=== PATIENT | female | born 1945 | race Hispanic/Latino ===

== ENCOUNTER 2019-03-28 13:50 | Observation (INO) | payer OTHER ==
--- OUTSIDE RECORDS SUMMARY | 2019-03-28 13:52 | XMS REPORT ---
:1945 [facility] [address] [place] [address] [place] [id number] Care Team Providers Name Role Phone Unavailable Unavailable Unavailable Problems This patient has no known problems. Allergies, Adverse Reactions, Alerts This patient has no known allergies or adverse reactions. Medications This patient has no known medications. Encounters Start End Encounter Admission Attending Care Care Encounter Date/Time Date/Time Type Type Clinicians Facility Department ID 2019-03-21 Outpatient [facility] [id number] 14:01:16 2018-10-16 Outpatient [facility] [id number] 15:44:11
--- OUTSIDE RECORDS SUMMARY | 2019-03-28 13:52 | XMS REPORT ---
:1945 Author Organization e[employer] Care Team Providers Name Role Phone Gaudencio Vanegas Provider Role Unavailable Allergies, Adverse Reactions, Alerts Substance Reaction Event Type Vicodin Info Not Available Drug Allergy contrast dye Info Not Available Non Drug Allergy Problems Problem Type Condition Code Onset Dates Condition Status Problem Impingement syndrome of right M75.41 Active shoulder Problem Impingement syndrome of left M75.42 Active shoulder Problem Unilateral primary osteoarthritis, M17.12 Active left knee Problem Left sided sciatica M54.32 Active Problem Pain, joint, knee, left M25.562 Active Problem Pain, joint, shoulder, left M25.512 Active Problem Pain, joint, shoulder, right M25.511 Active Problem Right sided sciatica M54.31 Active Problem 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 Assessment Impingement syndrome of right M75.41 Active shoulder Assessment Impingement syndrome of left M75.42 Active shoulder Assessment Pain, joint, shoulder, left M25.512 Active Assessment Pain in joint of left wrist M25.532 Active Assessment Pain, joint, shoulder, right M25.511 Active Medications Medication Code Code Instructions Start End Status Dosage System Date Date Aspirin 81 [facility] 98663354636 81 MG Orally Active 1 tablet Once a day Omeprazole [facility] 19154582328 40 MG Orally Jan 30, Active 1 capsule Once a day 2017 Amlodipine-Quan [facility] 21986167589 5-40 MG Orally Jan 30, Active 1 tablet rvastatin Once a day 2017 Results No Known Results Summary Purpose eClinicalWorks Submission
[2019-03-28 14:43] LABS: Absolute Lymphocytes (CBC) 1.5 K/uL (0.7-4.9); Basophils % 0.3 % (0-1.3); Hematocrit 37.9 % (36.0-45.0); Lymphocytes % 17.7 % (15.3-44.8); MPV 9.3 fL (7.6-11.3); RBC Red Blood Cell Count 4.15 M/uL (3.86-4.86)
[2019-03-28 14:49] LABS: Protime INR 1.12
[2019-03-28 15:00] LABS: ALT/SGPT 20 U/L (12-78); AST/SGOT 12 U/L (15-37); Albumin 3.9 g/dL (3.4-5.0); Alkaline Phosphatase 76 U/L (45-117); BUN Blood Urea Nitrogen 27 mg/dL (7-18); Bicarbonate 23 mmol/L (21-32); Bilirubin Direct 0.1 mg/dL (0-0.2); Bilirubin Total 0.4 mg/dL (0.2-1.0); Glucose Level 139 mg/dL (74-106); Magnesium 2.1 mg/dL (1.8-2.4); NT PRO-BNP 96 pg/mL (<450); Potassium 3.9 mmol/L (3.5-5.1); Protein, Total 7.6 g/dL (6.4-8.2); Sodium Level 143 mmol/L (136-145); Troponin (Emerg Dept Use Only) < 0.02 ng/mL (0.0-0.045)
--- NOTE | 2019-03-28 15:14 | RAD REPORT ---
EXAM DESCRIPTION: Mass[place] Single View03/28/2019 2:57 pm CLINICAL HISTORY: Chest pain COMPARISON: 2017 FINDINGS: The lungs appear clear of acute infiltrate. The heart is mildly enlarged. Pacemaker leads are in place. IMPRESSION: No acute abnormalities displayed
--- NOTE | 2019-03-28 15:39 | ER ---
Nurse's Notes [facility] Name: Ekta Allison Age: 73 yrs Sex: Female : 1945 Arrival Date: 03/28/2019 Time: 13:51 Bed 23 Private MD: Madison Campoverde Diagnosis: Chest pain, unspecified Presentation: 03/28 13:54 Presenting complaint: Patient states: i started feeling real bad about 45 minutes ago, tw2 we were in [employer] fishing, i felt like i couldn't breath and i started feeling dizzy, it was a pressure in my chest. Transition of care: patient was not received from another setting of care. Onset of symptoms was March 28, 2019. Risk Assessment: Do you want to hurt yourself or someone else? Patient reports no desire to harm self or others. Initial Sepsis Screen: Does the patient meet any 2 criteria? No. Patient's initial sepsis screen is negative. Does the patient have a suspected source of infection? No. Patient's initial sepsis screen is negative. Care prior to arrival: None. 13:54 Method Of Arrival: Wheelchair tw2 13:54 Acuity: VINEET 3 tw2 Triage Assessment: 13:55 General: Appears in no apparent distress. Behavior is anxious. Pain: Complains of pain tw2 in chest. Cardiovascular: Reports chest pain, shortness of breath. Historical: - Allergies: 13:57 Iodinated Contrast Media - IV Dye; tw2 13:57 Vicodin; tw2 - Home Meds: 13:57 aspirin 81 mg Oral chew 1 tab once daily [Active]; amlodipine 5 mg tab 1 tab once daily tw2 [Active]; valsartan 160 mg oral tab 1 tab once daily [Active]; pantoprazole 40 mg oral TbEC 1 tab once daily [Active]; clonidine HCl 0.1 mg Oral tab 1 tab prn, when systolic over 160 [Active]; - PMHx: 13:57 Hypertension; tw2 - PSHx: 13:57 Pacemaker; tw2 - Immunization history:: Adult Immunizations. - Social history:: Smoking status: . - Ebola Screening: : Patient denies exposure to infectious person. Screenin:10 Abuse screen: Denies threats or abuse. Denies injuries from another. Nutritional wh screening: No deficits noted. Tuberculosis screening: No symptoms or risk factors identified. Fall Risk None identified. Assessment: 14:10 General: Appears in no apparent distress. Behavior is cooperative, appropriate for age, anxious. Pain: Complains of pain in chest Pain does not radiate. Pain currently is 4 out of 10 on a pain scale. Quality of pain is described as pressure, Pain began 1 hour ago. Neuro: Level of Consciousness is awake, alert, obeys commands, Oriented to person, place, time, situation, Appropriate for age. Cardiovascular: Reports chest pain, Heart tones S1 S2 Rhythm is Respiratory: Airway is patent Respiratory effort is even, unlabored, Respiratory pattern is regular, symmetrical, Breath sounds are clear bilaterally. GI: Abdomen is flat, non-distended. : No signs and/or symptoms were reported regarding the genitourinary system. EENT: No signs and/or symptoms were reported regarding the EENT system. Derm: Skin is intact, is healthy with good turgor, Skin is pink, warm \T\ dry. normal. Musculoskeletal: Circulation, motion, and sensation intact. 15:25 Reassessment: Patient appears in no apparent distress at this time. No changes from previously documented assessment. Patient and/or family updated on plan of care and expected duration. Pain level reassessed. Patient is alert, oriented x 3, equal unlabored respirations, skin warm/dry/pink. Vital Signs: 13:55 BP 141 / 59; Pulse 64; Resp 19; Temp 97.6(O); Pulse Ox 100% on R/A; Weight 70.31 kg; tw2 Pain 8/10; 15:31 BP 116 / 80; Pulse 61; Resp 20; Pulse Ox 98% on R/A; ED Course: 13:51 Patient arrived in ED. ag5 13:51 Madison Campoverde is Private Physician. ag5 13:55 Triage completed. tw2 13:55 Arm band placed on. EKG completed in triage. Results shown to MD. tw2 14:00 Calista Tipton is Primary Nurse. wh 14:09 EKG done, by network control technician. reviewed by Keyur Pardo MD. sm3 14:10 Patient has correct armband on for positive identification. Placed in gown. Bed in low wh position. Call light in reach. Side rails up X 1. body artist on. Pulse ox on. NIBP on. 14:10 Patient maintains SpO2 saturation greater than 95% on room air. 14:15 Inserted saline lock: 22 gauge in right antecubital area, using aseptic technique. Blood collected. BY Rimma Bennett Charge Nurse. 14:21 Geovanna Barker FNP-C [facility]. snw 14:21 Keyur Pardo MD is Attending Physician. snw 14:57 XRAY Chest (1 view) In Process Unspecified. EDMS 15:38 Jonelle Hutton MD is Hospitalizing Provider. snw 16:34 No provider procedures requiring assistance completed. Patient admitted, IV remains in place. Administered Medications: No medications were administered Outcome: 15:39 Decision to Hospitalize by Provider. snw 16:35 Admitted to Med/surg accompanied by tech, family with patient, via wheelchair, room wh 210, with chart, Report called to Janessa Kennedy RN 16:35 Condition: stable 16:35 Instructed on the need for admit. 16:36 Patient left the ED. Signatures: Dispatcher [employer] EDWI Geovanna Barker FNP-C MANAGER ROOFING-Csnw Deidre Jones, RN RN tw2 [facility] Kiersten Cortes 3 Shawnee Perez 5 Corrections: (The following items were deleted from the chart) 15:29 14:10 Cardiovascular: Reports chest pain, Heart tones S1 S2 Rhythm is regular [facility] 15:31 14:10 Cardiovascular: Reports chest pain, Heart tones S1 S2 Rhythm is [facility]
--- NOTE | 2019-03-28 15:40 | EDPHYS ---
Physician Documentation [facility] Name: Ekta Allison Age: 73 yrs Sex: Female : 1945 Arrival Date: 03/28/2019 Time: 13:51 Bed 23 Private MD: Madison Campoverde ED Physician Keyur Pardo HPI: 03/28 15:35 This 73 yrs old Female presents to ER via Wheelchair with complaints of Chest snw Pain, Breathing Difficulty. 15:35 Onset: The symptoms/episode began/occurred suddenly, just prior to arrival. Associated snw signs and symptoms: Pertinent positives: chest pain, light-headed, palpitations, nausea. The patient has not experienced similar symptoms in the past, but family has similar symptoms, spouse. The patient has been recently seen by a physician: Dr. Rivka Arteaga. Historical: - Allergies: 13:57 Iodinated Contrast Media - IV Dye; tw2 13:57 Vicodin; tw2 - Home Meds: 13:57 aspirin 81 mg Oral chew 1 tab once daily [Active]; amlodipine 5 mg tab 1 tab once daily tw2 [Active]; valsartan 160 mg oral tab 1 tab once daily [Active]; pantoprazole 40 mg oral TbEC 1 tab once daily [Active]; clonidine HCl 0.1 mg Oral tab 1 tab prn, when systolic over 160 [Active]; - PMHx: 13:57 Hypertension; tw2 - PSHx: 13:57 Pacemaker; tw2 - Immunization history:: Adult Immunizations. - Social history:: Smoking status: . - Ebola Screening: : Patient denies exposure to infectious person. ROS: 15:30 Eyes: Negative for injury, pain, redness, and discharge, ENT: Negative for injury, snw pain, and discharge, Neck: Negative for injury, pain, and swelling. 15:30 Back: Negative for injury and pain, : Negative for injury, bleeding, discharge, and swelling, + uti being tx with Cipro currently MS/Extremity: Negative for injury and deformity, Skin: Negative for injury, rash, and discoloration, Neuro: Negative for headache, weakness, numbness, tingling, and seizure. 15:30 Constitutional: Positive for lightheaded, body felt weak. 15:30 Cardiovascular: Positive for chest pain, palpitations. 15:30 Respiratory: Positive for shortness of breath. 15:30 Abdomen/GI: Positive for nausea. Exam: 15:35 Constitutional: This is a well developed, well nourished patient who is awake, alert, snw and in no acute distress. Head/Face: Normocephalic, atraumatic. Eyes: Pupils equal round and reactive to light, extra-ocular motions intact. Lids and lashes normal. Conjunctiva and sclera are non-icteric and not injected. Cornea within normal limits. Periorbital areas with no swelling, redness, or edema. ENT: Nares patent. No nasal discharge, no septal abnormalities noted. Tympanic membranes are normal and external auditory canals are clear. Oropharynx with no redness, swelling, or masses, exudates, or evidence of obstruction, uvula midline. Mucous membranes moist. Neck: Trachea midline, no thyromegaly or masses palpated, and no cervical lymphadenopathy. Supple, full range of motion without nuchal rigidity, or vertebral point tenderness. No Meningismus. Chest/axilla: Normal chest wall appearance and motion. Nontender with no deformity. No lesions are appreciated. Cardiovascular: Regular rate and rhythm with a normal S1 and S2. No gallops, murmurs, or rubs. Normal PMI, no JVD. No pulse deficits. Respiratory: Lungs have equal breath sounds bilaterally, clear to auscultation and percussion. No rales, rhonchi or wheezes noted. No increased work of breathing, no retractions or nasal flaring. Back: No spinal tenderness. No costovertebral tenderness. Full range of motion. Skin: Warm, dry with normal turgor. Normal color with no rashes, no lesions, and no evidence of cellulitis. MS/ Extremity: Pulses equal, no cyanosis. Neurovascular intact. Full, normal range of motion. Neuro: Awake and alert, GCS 15, oriented to person, place, time, and situation. Cranial nerves II-XII grossly intact. Motor strength 5/5 in all extremities. Sensory grossly intact. Cerebellar exam normal. Normal gait. Psych: Awake, alert, with orientation to person, place and time. Behavior, mood, and affect are within normal limits. 15:35 Abdomen/GI: Inspection: abdomen appears normal, Bowel sounds: normal, Palpation: mild abdominal tenderness, moderate abdominal tenderness, in the epigastric area and left upper quadrant. Vital Signs: 13:55 BP 141 / 59; Pulse 64; Resp 19; Temp 97.6(O); Pulse Ox 100% on R/A; Weight 70.31 kg; tw2 Pain 8/10; 15:31 BP 116 / 80; Pulse 61; Resp 20; Pulse Ox 98% on R/A; wh MDM: 14:42 Patient medically screened. snw 15:29 Data reviewed: vital signs, nurses notes. Data interpreted: Pulse oximetry: on room air snw is 100 %. Interpretation: normal. Counseling: I had a detailed discussion with the patient and/or guardian regarding: the historical points, exam findings, and any diagnostic results supporting the discharge/admit diagnosis, the presence of at least one elevated blood pressure reading (>120/80) during this emergency department visit, lab results, radiology results, the need for further work-up and treatment in the hospital. Physician consultation: Jonelle Hutton MD was called at 15:29, was contacted at 15:29, regarding admission, to the telemetry unit. 15:38 HEART Score: History: Highly Suspicious (2), ECG: Non specific repolarization snw disturbance / LBTB / PM (1), Age: > or = 65 years (2), Risk Factors: 1 or 2 risk factors (1), Troponin: < or = 1 x Normal Limit (0), Total Score = 6. The patient was not given aspirin in the Emergency Department. Patient reports taking aspirin within the past 24 hours. 03/28 14: Order name: Basic Metabolic Panel; Complete Time: 15:05 03/28 14:01 Order name: CBC with Diff; Complete Time: 14:58 03/28 14:01 Order name: LFT's; Complete Time: 15: 03/28 14:01 Order name: Magnesium; Complete Time: 15:05 03/28 14:01 Order name: NT PRO-BNP; Complete Time: 15:05 03/28 14:01 Order name: PT-INR; Complete Time: 14:58 03/28 14:01 Order name: Troponin (emerg Dept Use Only); Complete Time: 15:05 03/28 14:01 Order name: XRAY Chest (1 view); Complete Time: 15:17 03/28 14:01 Order name: EKG; Complete Time: 14:02 03/28 14:01 Order name: Cardiac monitoring; Complete Time: 14: 03/28 14:01 Order name: EKG - Nurse/Tech; Complete Time: 14: 03/28 14:01 Order name: IV Saline Lock; Complete Time: 14: 03/28 14:01 Order name: Labs collected and sent; Complete Time: 14: 03/28 15:34 Order name: [facility] 03/28 14:01 Order name: O2 Per Protocol; Complete Time: 14: 03/28 14:01 Order name: O2 Sat Monitoring; Complete Time: 14:21 Administered Medications: No medications were administered Disposition: 03/28/19 15:39 Hospitalization ordered by Jonelle Hutton for Observation. Preliminary diagnosis is Chest pain, unspecified. - Bed requested for Telemetry/MedSurg (observation). - Status is Observation. - Condition is Stable. - Problem is new. - Symptoms are unchanged. UTI on Admission? Yes Addendum: 04/01/2019 06:38 Co-signature as Attending Physician, Keyur Pardo MD I agree with the assessment and k dr plan of care. Signatures: Dispatcher [employer] [facility] Keyur Pardo MD MD [facility] [address] Geovanna Barker, FREIGHT TRAFFIC CONSULTANT-C FREIGHT TRAFFIC CONSULTANT-Csnw Deidre Jones RN RN tw2 Calista Tipton Mabel Santana Corrections: (The following items were deleted from the chart) 03/28 15:58 15:39 Hospitalization Ordered by Jonelle Hutton MD for Observation. Preliminary eb diagnosis is Chest pain, unspecified. Bed requested for Telemetry/MedSurg (observation). Status is Observation. Condition is Stable. Problem is new. Symptoms are unchanged. UTI on Admission? Yes. snw 16:36 15:58 03/28/2019 15:39 Hospitalization Ordered by Jonelle Hutton MD for Observation. Preliminary diagnosis is Chest pain, unspecified. Bed requested for Telemetry/MedSurg (observation). Status is Observation. Condition is Stable. Problem is new. Symptoms are unchanged. UTI on Admission? Yes. eb
[2019-03-28] MEDS ORDERED: IPRATROPIUM BROM 0.5MG/2.5ML NEB PRN (16:42)
[2019-03-28] MEDS ORDERED: ALBUTEROL 2.5 MG/3 ML NEB SOL NEB PRN (16:42)
[2019-03-28 16:50] VITALS: BMI 25.3
--- NOTE | 2019-03-28 16:51 | EKG ---
Test Date: 2019-03-28 Test Time: 13:57:13 Small Stock Facer: [employer]BI[employer]oy MEASUREMENT RESULTS: Intervals: Rate: 65 AL: 104 QRSD: 84 QT: 430 QTc: 447 [place]: P: 47 AL: 104 QRS: -25 T: 65 INTERPRETIVE STATEMENTS: Sinus rhythm with short AL Nonspecific ST and T wave abnormality Abnormal ECG Compared to ECG 04/10/2017 10:46:05 Short AL interval now present ST (T wave) deviation now present Myocardial infarct finding no longer present Electronically Signed On 03-28-19 16:50:55 CREDIT REVIEW OFFICER by Darnell Reardon
[2019-03-28 17:13] VITALS: O2SAT 98
--- NOTE | 2019-03-28 17:27 | P.HP ---
Certification for Inpatient Patient admitted to: Observation With expected LOS: <2 Midnights Patient will require the following post-hospital care: None Practitioner: I am a practitioner with admitting privileges, knowledge of patient current condition, hospital course, and medical plan of care. Services: Services provided to patient in accordance with Admission requirements found in Title 42 Section 412.3 of the Code of Federal Regulations Patient History Date of Service: 03/28/19 [facility] Reason for admission: Epigastric pain History of Present Illness: This is a 73-year-old female with significant past medical history of colon cancer along with extensive gastric surgery who presented to the ED complaining of having epigastric pain. Patient stated that this morning she just woke up and was not feeling herself felt a lot of pressure in her whole body along with epigastric pain and the she decided to come to the ER. Patient stated that she has extensive history of gastric surgery in the past where her stomach was attached to her pancreas kidney and liver and had to be the attached. Patient had EGD scheduled today at [facility] with GI doctor which was canceled to evaluate for some epigastric pain as well. Patient denies having any nausea vomiting diarrhea constipation shortness of breath or any other associated symptoms. States that her pain has been going on and off for a while but has been getting progressively worse and the she decided to come to the ER today. Allergies acetaminophen [From Vicodin] Allergy (Unverified 04/10/17 14:07) Unknown hydrocodone [From Vicodin] Allergy (Unverified 04/10/17 14:07) Unknown Iodinated Contrast- Oral a Allergy (Uncoded 04/10/17 14:07) Unknown Home Medications: Amlodipine/Valsartan [Amlodipine-Valsartan 5-160 mg] 1 tab PO DAILY 03/28/19 Aspirin [Aspirin EC 81 MG] 81 mg PO DAILY 03/28/19 Ciprofloxacin HCl [Cipro 500 MG Tablet] 500 mg PO BID 03/28/19 Clonidine HCl [Catapres] 0.1 mg PO DAILYPRN 03/28/19 Levothyroxine Sodium 25 mcg PO DAILY 03/28/19 Pantoprazole [Protonix Tab*] 40 mg PO DAILY 03/28/19 - Past Medical/Surgical History Has patient received pneumonia vaccine in the past: Yes Diabetic: No -: Hypertension -: Pacemaker (2010) -: Cardiac Dysrhythmia -: Cataract -: Hypothyroidism -: GERD -: Shoulder Tendinitis(gets shots) -: Explore Lap; organs -: Hernia Repair -: Esophageal varices - Family History Father Notes: - Lung Cancer Mother Notes: - Stroke - Social History Smoking Status: Never smoker Alcohol use: No CD- Drugs: No Caffeine use: Yes Place of Residence: Home Review of Systems 10-point ROS is otherwise unremarkable Physical Examination - Vital Signs Temperature: 97.6 F Blood Pressure: 116/80 Pulse: 61 Respirations: 20 - Physical Exam General: Alert, In no apparent distress HEENT: Atraumatic, PERRLA, Mucous membr. moist/pink, EOMI, Sclerae nonicteric Neck: Supple, 2+ carotid pulse no bruit, No LAD, Without JVD or thyroid abnormality Respiratory: Clear to auscultation bilaterally, Normal air movement Cardiovascular: Regular rate/rhythm, Normal S1 S2 Gastrointestinal: Normal bowel sounds, No tenderness Musculoskeletal: No tenderness Integumentary: No rashes Neurological: Normal gait, Normal speech, Normal strength at 5/5 x4 extr, Normal tone, Normal affect Lymphatics: No axilla or inguinal lymphadenopathy - Studies Laboratory Data (last 24 hrs) 03/28/19 14:20: PT 13.2 H, INR 1.12 03/28/19 14:20: WBC 8.5, Hgb 13.2, Hct 37.9, Plt Count 210 03/28/19 14:20: Sodium 143, Potassium 3.9, BUN 27 H, Creatinine 1.49 H, Glucose 139 H, Magnesium 2.1, Total Bilirubin 0.4, AST 12 L, ALT 20, Alkaline Phosphatase 76 Assessment and Plan - Problems (Diagnosis) (1) Epigastric pain Current Visit: Yes Status: Acute Plan: Patient with epigastric pain at this time with started suddenly this morning however has been intermittent and has been getting progressively worse -most likely secondary to adhesions versus reflux -however will rule out ACS at this time and get a CT chest, abdomen and pelvis to rule out any other infectious etiology -if CT abdomen chest and pelvis is negative most likely patient will need EGD done as outpatient with her GI doctor to further evaluate for her epigastric pain -will repeat troponin x2 here in the hospital. EKG within normal limits. -will continue with IV fluids here in the hospital monitor patient closely -Protonix IV at this time as well. (2) Colon cancer Current Visit: Yes Status: Acute Plan: Status post resection 10 years ago currently stable per patient Qualifiers: Colon location: unspecified part of colon Qualified Code(s): C18.9 - Malignant neoplasm of colon, unspecified (3) Hypertension Current Visit: Yes Status: Chronic Plan: Will restart on home medication Qualifiers: Hypertension type: essential hypertension Qualified Code(s): I10 - Essential (primary) hypertension (4) History of permanent cardiac pacemaker placement Current Visit: Yes Status: Chronic Plan: Stable Discharge Plan: Home Plan to discharge in: 48 Hours - Advance Directives Does patient have a Living Will: No Does patient have a Durable POA for Healthcare: No - Code Status/Comfort Care Code Status Assessed: Yes Critical Care: No
[2019-03-28] MEDS ORDERED: cloNIDine HCL 0.1 MG TAB PO SCH (18:00)
[2019-03-28] MEDS ORDERED: NA CHLORIDE 0.9% 1,000 ML IV SCH (18:00)
--- NOTE | 2019-03-28 20:27 | RAD REPORT ---
EXAM DESCRIPTION: CT - Chest Abd Pelvis Wo Con - 03/28/2019 6:05 pm CLINICAL HISTORY: Chest and abdominal pain. Colon cancer COMPARISON: none TECHNIQUE: Computed axial tomography of the chest, abdomen and pelvis was obtained. Oral contrast wa s given. IV contrast was not requested. All CT scans are performed using dose optimization technique as appropriate and may include automated exposure control or mA/KV adjustment according to patient size. FINDINGS: The evaluation of mediastinum, tatiana, vessels and solid organs is limited secondary to the lack of IV contrast administration No mediastinal or hilar lymphadenopathy is seen. A pleural effusion is not present. A pericardial effusion is not seen. Calcified granuloma right lung. A few areas of scarring or subsegmental atelectasis are present withi n left lung base. Splenic granulomata. Cholecystectomy The liver, adrenals and kidneys appear grossly normal Coarse calcification is present within pancreas which may be related to prior pancreatitis Small hiatal hernia. 3 centimeter soft tissue structure distal stomach/proximal duodenum There is no evidence of diverticulitis. Hysterectomy IMPRESSION: 3 centimeter soft tissue structure posterior stomach/ proximal duodenum. This may be a p seudo mass secondary to prior surgery, incomplete distention or a true mass. It is recommended that t he patient have a CT scan with oral contrast with opacification of the stomach for further evaluation
[2019-03-28 20:54] LABS: Urine Appearance CLEAR; Urine Bilirubin NEGATIVE (NEG); Urine Blood NEGATIVE (NEG); Urine Color YELLOW; Urine Glucose NEGATIVE (NEG); Urine Microscopic Reflex ORDER UMIC; Urine Protein NEGATIVE (NEG); Urine Urobilinogen 0.2 mg/dL (0.2-1.0)
[2019-03-28 21:01] LABS: Urine Bacteria <20 /HPF (<20); Urine Culture Reflex Order REFLEXED; Urine Mucus 2+ /HPF (NONE SEEN); Urine RBC <5 /HPF (NONE SEEN)
[2019-03-29] MEDS: ACETAMINOPHEN 325 MG TABLET PO PRN ×2 (02:05→07:56)
[2019-03-29] MEDS ORDERED: LEVOTHYROXINE SOD 0.025 MG TAB PO SCH (06:30)
[2019-03-29 06:32] LABS: Absolute Lymphocytes (CBC) 1.9 K/uL (0.7-4.9); Basophils % 0.3 % (0-1.3); Hematocrit 35.3 % (36.0-45.0); Lymphocytes % 34.6 % (15.3-44.8); MPV 9.4 fL (7.6-11.3); RBC Red Blood Cell Count 3.88 M/uL (3.86-4.86)
[2019-03-29 06:41] LABS: Albumin 3.3 g/dL (3.4-5.0); Bilirubin Total 0.4 mg/dL (0.2-1.0); Potassium 3.8 mmol/L (3.5-5.1); Protein, Total 6.6 g/dL (6.4-8.2)
[2019-03-29] MEDS ORDERED: POTASSIUM CL SA 10 MEQ TAB PO ONE (09:00)
[2019-03-29] MEDS ORDERED: ASPIRIN EC 81 MG TAB PO SCH (09:00)
[2019-03-29] MEDS ORDERED: AMLODIPINE 5 MG TAB PO SCH (09:00)
[2019-03-29] MEDS ORDERED: VALSARTAN 160 MG TAB PO SCH (09:00)
[2019-03-29] MEDS ORDERED: ENOXAPARIN 30 MG/0.3 ML SQ SCH (09:00)
[2019-03-29] MEDS ORDERED: PANTOPRAZOLE 40MG TABLET PO SCH (09:00)
[2019-03-29] MEDS ORDERED: VALSARTAN PO SCH (09:00)
[2019-03-29] MEDS ORDERED: ENOXAPARIN 40 MG/0.4 ML SQ SCH (09:00)
[2019-03-29] MEDS ORDERED: AMLODIPINE PO SCH (09:00)
--- NOTE | 2019-03-29 14:09 | P.DS ---
Admission Date: 03/28/19 Discharge Date: 03/30/19 Primary [facility] Disposition: ROUTINE DISCHARGE Discharge Condition: FAIR Reason for Admission: Epigastric pain Brief History of Present Illness: 73-year-old female with significant past medical history of colon cancer along with extensive gastric surgery who presented to the ED complaining of having epigastric pain. Patient stated that this morning she just woke up and was not feeling herself felt a lot of pressure in her whole body along with epigastric pain and the she decided to come to the ER. Patient stated that she has extensive history of gastric surgery in the past where her stomach was attached to her pancreas kidney and liver and had to be the attached. Patient had EGD scheduled today at [facility] with GI doctor which was canceled to evaluate for some epigastric pain as well. Patient denies having any nausea vomiting diarrhea constipation shortness of breath or any other associated symptoms. States that her pain has been going on and off for a while but has been getting progressively worse and the she decided to come to the ER today. Hospital Course: Was admitted was monitor under telemetry. Cardiac enzymes were trended and was within normal limits. Patient with epigastric pain ,most likely secondary to adhesions versus reflux She was also started on PPI and pain control. CT abdomen pelvis was done and findings were discussed with the patient's family. Here she was also start on IV fluids for hydration. She has an appointment with the GI and with surgeon in [facility] . And she wanted to follow up with them for continuity of care. the patient is being discharged home today in a stable condition with advice to follow up with PCP and also with GI and surgery as early as possible Vital Signs/Physical Exam: Temp Pulse Resp BP Pulse Ox 97.5 F 59 18 146/64 H 97 03/29/19 08:00 03/29/19 08:00 03/29/19 08:00 03/29/19 08:00 03/29/19 08:00 General: Alert, In no apparent distress HEENT: Atraumatic, Normocephalic Neck: Supple Respiratory: Clear to auscultation bilaterally Cardiovascular: Regular rate/rhythm Gastrointestinal: Soft and benign, W/out hepatosplenomegaly Neurological: Normal strength at 5/5 x4 extr Laboratory Data at Discharge: WBC 5.5 K/uL (4.3-10.9) D 03/29/19 05:56 Hgb 12.6 g/dL (12.0-15.0) 03/29/19 05:56 Hct 35.3 % (36.0-45.0) L 03/29/19 05:56 Plt Count 194 K/uL (152-406) 03/29/19 05:56 PT 13.2 SECONDS (9.5-12.5) H 03/28/19 14:20 INR 1.12 03/28/19 14:20 Sodium 144 mmol/L (136-145) 03/29/19 05:56 Potassium 3.8 mmol/L (3.5-5.1) 03/29/19 05:56 BUN 22 mg/dL (7-18) H 03/29/19 05:56 Creatinine 0.96 mg/dL (0.55-1.3) 03/29/19 05:56 Glucose 89 mg/dL (74-106) 03/29/19 05:56 Magnesium 2.1 mg/dL (1.8-2.4) 03/28/19 14:20 Total Bilirubin 0.4 mg/dL (0.2-1.0) 03/29/19 05:56 AST 9 U/L (15-37) L 03/29/19 05:56 ALT 16 U/L (12-78) 03/29/19 05:56 Alkaline Phosphatase 65 U/L (45-117) 03/29/19 05:56 Troponin I < 0.02 ng/mL (0.0-0.045) 03/29/19 05:56 Home Medications: Amlodipine/Valsartan [Amlodipine-Valsartan 5-160 mg] 1 tab PO DAILY 03/28/19 Aspirin [Aspirin EC 81 MG] 81 mg PO DAILY 03/28/19 Ciprofloxacin HCl [Cipro 500 MG Tablet] 500 mg PO BID 03/28/19 Clonidine HCl [Catapres] 0.1 mg PO DAILYPRN 03/28/19 Levothyroxine Sodium 25 mcg PO DAILY 03/28/19 Pantoprazole [Protonix Tab*] 40 mg PO DAILY 03/28/19 metroNIDAZOLE [Flagyl] 500 mg PO Q8H #21 tablet 03/29/19 New Medications: metroNIDAZOLE [Flagyl] 500 mg PO Q8H #21 tablet Patient Discharge Instructions: Follow up with PCP , GI, Surgery as early as possible
[2019-03-29 15:12] VITALS: BP 150/67; TEMP 97.7
== END 2019-03-29 13:30 | disposition home or self-care (01) ==
LOC: ER 13:50 → ERHOLD 15:32 → 2ND 16:22
PROVIDERS: ADMIT Family Medicine; ATTEND Family Medicine
DX: R10.13 Epigastric pain (principal); I10 Essential (primary) hypertension; E03.9 Hypothyroidism, unspecified; K21.9 Gastro-esophageal reflux disease without esophagitis; Z85.038 Personal history of other malignant neoplasm of large intestine; Z95.0 Presence of cardiac pacemaker; Z79.82 Long term (current) use of aspirin
CPT/HCPCS: 36415; 71045; 71250; 74176; 80048; 80053; 80076; 81003; 81015; 82553; 83735; 83880; 84484; 85025; 85610; 87086; 87088; 93005; 99285; G0378; J1650; J7030

== ENCOUNTER 2019-05-17 17:26 | Emergency (ER) | payer OTHER ==
--- OUTSIDE RECORDS SUMMARY | 2019-05-17 17:28 | XMS REPORT | Summary of Care ---
:1945 Author Name OLE DANIEL M.D. Address Unavailable Unavailable , Care Team Providers Name Role Phone MARÍA Barillas, [facility] Unavailable Unavailable OBONYANO N.P., JOANNE Unavailable Unavailable JACKSON MCNAIR, GUTIERREZ Unavailable Unavailable Vipul Briseno MD Unavailable Unavailable MARÍA MCNAIR [place], [facility] Unavailable Unavailable Unavailable Unavailable Unavailable Functional Status Name Dates Details Functional status health issues are not documented Status: Name Dates Details Cognitive status health issues are not documented Status: Problems Name Dates Details Dysphagia (787.20, R13.10) Status: Active Left upper quadrant pain (789.02, R10.12) Status: Active Medications Name Dates Details Fish Oil CAPS Refills: 0 Active amLODIPine Besylate 2.5 MG Oral Tablet TAKE 1 TABLET DAILY DIRECTED. Quantity: 90 Refills: 3 Active Pantoprazole Sodium 40 MG Oral Tablet Delayed Release TAKE 1 TABLET DAILY Quantity: 90 Refills: 1 OBONYANO N.P., JOANNE Start : 29-Jan-2018 Active amLODIPine Besylate-Valsartan 5-160 MG Oral Tablet Refills: 0 Active Pantoprazole Sodium 40 MG Oral Tablet Delayed Release Refills: 0 Active cloNIDine HCl - 0.1 MG Oral Tablet Refills: 0 Active Wanda Low Dose 81 MG Oral Tablet Delayed Release Refills: 0 Active Allergies and Adverse Reactions Name Dates Details Contrast Media Ready-Box MISC (Allergy) Status: Active Iodex OINT (Allergy) Status: Active Iodinated Contrast Media (Allergy) Status: Active Vicodin HP TABS (Allergy) Status: Active Vicodin TABS (Allergy) Status: Active Iodine (Allergy) Status: Active Past Medical History Name Dates Details History of Abdominal pain, epigastric (789.06, R10.13) Status: Resolved History of abnormal weight loss (V13.89, Z87.898) Status: Resolved History of cough Status: Resolved History of Dysphagia (787.20, R13.10) Status: Resolved History of dysphagia (V12.79, Z87.19) Status: Resolved History of epigastric pain (V12.79, Z87.19) Status: Resolved History of esophageal reflux (V12.79, Z87.19) Status: Resolved History of essential hypertension (V12.59, Z86.79) Status: Resolved 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, 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 History of gastroesophageal reflux (GERD) (V12.79, Z87.19) Status: Resolved History of heartburn (V12.79, Z87.898) Status: Resolved History of Herniated nucleus pulposus, L4-5 (722.10, M51.26) Status: Resolved History of hiatal hernia (V12.79, Z87.19) Status: Resolved History of nausea (V12.79, Z87.898) Status: Resolved History of odynophagia (V15.89, Z87.898) Status: Resolved History of Regurgitation (R11.10) Status: Resolved History of Sick sinus syndrome (427.81, I49.5) Status: Resolved Procedures Procedure Dates Details History of Pacemaker Placement Completed 12-Aug-2004 History of Laparosc Esophagogastric Fundoplasty For Completed 12-Jan-2010 Paraesoph Hernia Repair W/ Mesh History of Hysterectomy Completed 14-May-1977 History of Cholecystectomy Laparoscopic Completed 14-May-1993 History of Total Abdominal Colectomy Completed 14-May-1981 Immunization Name Dates Details Immunizations not documented Family History Name Dates Details Family history of Lung Cancer (V16.1) Status: Active Social History Name Dates Details - Status: Name Dates Details Never smoker Vital Signs Date Test Result Details [id number] BP Systolic 146 mm[Hg] Status: Comments: Location: RUE; Position: Sitting BP Diastolic 82 mm[Hg] Status: Comments: Location: E; Position: Sitting Height 61 in Status: Weight 134.5 lb Status: Body Mass Index Calculated 25.41 kg/m2 Status: Body Surface Area Calculated 1.6 m2 Status: Temperature 98.2 f Status: Comments: Method: Oral Heart Rate 61 /min Status: Respiration Rate 18 /min Status: O2 SAT 98 % Status: Comments: Source: RA Results Date Description Value Details Results not documented Plan of Care Name Dates Details Planned Observations Planned Goals not documented Interventions Provided Plan1. CT chest, abdomen and pelvis with PO contrast to rule out chest and abdominal mass 2. . I will call her with the results of the CT and will see her again in 1 month for a follow up. 3. I recommended she see a acute pain service for the persistent LUQ pain/rib area. She has a physician she will follow up with. 4. I recommended she take Aleve or Motrin for relief of pain. Instructions Name Dates Details Instructions not documented Encounters Appointment; VIPUL BRISENO M.D. On: 19-Oct-2017 13:30 Encounter Diagnosis: Problem not documented Appointment; ROBERT MCMAHAN M.D. On: 13-Nov-2017 14:00 Encounter Diagnosis: Problem not documented Appointment; VIPUL BRISENO M.D. On: 29-Nov-2017 14:15 Encounter Diagnosis: Problem not documented Appointment; VIPUL BRISENO M.D. On: 31-Dec-2017 9:45 Encounter Diagnosis: Problem not documented Appointment; VIPUL BRISENO M.D. On: 05-Mar-2018 13:15 Encounter Diagnosis: Problem not documented Appointment; VIPUL BRISENO M.D. On: 05-Mar-2018 13:15 Encounter Diagnosis: Problem not documented Appointment; VIPUL BRISENO M.D. On: 05-Mar-2019 10:45 Encounter Diagnosis: Problem not documented Appointment; OLE DANIEL M.D. On: 19-Mar-2019 15:00 Encounter Diagnosis: Problem not documented Appointment; OLE DANIEL M.D. On: 09-Apr-2019 14:00 Encounter Diagnosis: Problem not documented
--- OUTSIDE RECORDS SUMMARY | 2019-05-17 17:28 | XMS REPORT ---
:1945 [facility] Address [address] [place] [address] [place] [id number] Care Team Providers Name Role Phone Unavailable [...]
--- OUTSIDE RECORDS SUMMARY | 2019-05-17 17:28 | XMS REPORT ---
[...] Status Dosage System Date Date Aspirin 81 [facility] [id number] 81 MG Orally Active 1 tablet Once a day Omeprazole [facility] [place] [id number] 40 MG Orally Jan 30, Active 1 capsule Once a day 2017 Amlodipine-Quan [facility] [place] [id number] 5-40 MG Orally Jan 30, Active 1 tablet rvastatin Once a day 2017 Results No Known Results Summary Purpose eClinicalWorks Submission
[2019-05-17] MEDS ORDERED: DIPHENHYDRAMINE 50 MG/ML VIAL ONE (18:23)
[2019-05-17] MEDS ORDERED: dexAMETHasone 10 MG/ML VIAL ONE (18:23)
[2019-05-17] MEDS ORDERED: METOCLOPRAMIDE 10 MG/2mL INJ ONE (18:23)
[2019-05-17] MEDS ORDERED: NA CHLORIDE 0.9% 100 ML IV ONE (18:24)
[2019-05-17 18:56] LABS: Absolute Lymphocytes (CBC) 1.4 K/uL (0.7-4.9); Basophils % 0.3 % (0-1.3); Hematocrit 38.3 % (36.0-45.0); Lymphocytes % 10.4 % (15.3-44.8); MPV 9.6 fL (7.6-11.3)
[2019-05-17 18:58] LABS: Protime INR 0.96
[2019-05-17 19:13] LABS: ALT/SGPT 22 U/L (12-78); AST/SGOT 12 U/L (15-37); Alkaline Phosphatase 67 U/L (45-117); BUN Blood Urea Nitrogen 36 mg/dL (7-18); Bicarbonate 21 mmol/L (21-32); Bilirubin Direct < 0.1 mg/dL (0-0.2); Bilirubin Total 0.2 mg/dL (0.2-1.0); Glucose Level 126 mg/dL (74-106); Magnesium 2.4 mg/dL (1.8-2.4); NT PRO-BNP 187 pg/mL (<450); Potassium 4.1 mmol/L (3.5-5.1); Protein, Total 7.9 g/dL (6.4-8.2); Sodium Level 145 mmol/L (136-145); Troponin (Emerg Dept Use Only) < 0.02 ng/mL (0.0-0.045)
[2019-05-17] MEDS ORDERED: NA CHLORIDE 0.9% 500 ML ONE (19:30)
--- NOTE | 2019-05-17 19:30 | RAD REPORT ---
EXAM DESCRIPTION: CT - Head Brain Wo Cont - 05/17/2019 6:22 pm CLINICAL HISTORY: Headache COMPARISON: None. TECHNIQUE: Axial 5 mm thick images of the head were obtained without IV contrast. All CT scans are performed using dose optimization technique as appropriate and may include automated exposure control or mA/KV adjustment according to patient size. FINDINGS: No intracranial hemorrhage, mass, edema or shift of mid-line structures. No acute infarcti on changes seen. No significant atrophy. Chronic ischemic changes minimal. Ventricles are normal. Mastoid air cells and visualized portions of the paranasal sinuses are clear. No acute bony findings. IMPRESSION: Negative non-contrast CT head examination for acute finding.
--- NOTE | 2019-05-17 19:41 | ER ---
Nurse's Notes [facility] Name: Ekta Allison Age: 73 yrs Sex: Female : 1945 Arrival Date: 05/17/2019 Time: 17:28 Bed 25 Private MD: Madison Campoverde Diagnosis: Headache;Dehydration Presentation: 05/17 17:45 Presenting complaint: Patient states: Reports DEGROOT started at 1545, pounding, and reports jl7 BP 189/88. Pt took a Clonidine at 1620 , BP was 186/84 at 1645. DEGROOT has resolved, reports mild dizziness and feeling tired. Transition of care: patient was not received from another setting of care. Onset of symptoms was May 17, 2019 at 15:30. Risk Assessment: Do you want to hurt yourself or someone else? Patient reports no desire to harm self or others. Initial Sepsis Screen: Does the patient meet any 2 criteria? No. Patient's initial sepsis screen is negative. Does the patient have a suspected source of infection? No. Patient's initial sepsis screen is negative. Care prior to arrival: Medication(s) given: clonidine 0.1 mg po. 17:45 Method Of Arrival: Ambulatory jl7 17:45 Acuity: VINEET 3 jl7 Triage Assessment: 17:53 General: Appears in no apparent distress. uncomfortable, Behavior is calm, cooperative, jl7 appropriate for age. Pain: Denies pain. Historical: - Allergies: 17:53 Iodinated Contrast Media - IV Dye; jl7 17:53 Vicodin; jl7 - Home Meds: 17:53 amlodipine 5 mg tab 1 tab once daily [Active]; aspirin 81 mg Oral chew 1 tab once daily jl7 [Active]; clonidine HCl 0.1 mg Oral tab 1 tab prn, when systolic over 160 [Active]; pantoprazole 40 mg Oral TbEC 1 tab once daily [Active]; pantoprazole 40 mg oral TbEC 1 tab once daily [Active]; valsartan 160 mg Oral tab 1 tab once daily [Active]; - PMHx: 17:53 Hypertension; Pacemaker; jl7 - PSHx: 17:53 Pacemaker; jl7 - Immunization history:: Adult Immunizations up to date. - Social history:: Smoking status: Patient/guardian denies using tobacco. - Ebola Screening: : No symptoms or risks identified at this time. Screenin:06 Abuse screen: Denies threats or abuse. Denies injuries from another. Nutritional mg2 screening: No deficits noted. Tuberculosis screening: No symptoms or risk factors identified. Fall Risk IV access (20 points). Assessment: 19:00 General: Appears in no apparent distress. comfortable, Behavior is calm, cooperative. mg2 Pain: Complains of pain in head. Neuro: Level of Consciousness is awake, alert, obeys commands, Oriented to person, place, time, situation, Reports headache. Cardiovascular: Capillary refill < 3 seconds Patient's skin is warm and dry. Respiratory: Airway is patent Respiratory effort is even, unlabored, Respiratory pattern is regular, symmetrical. GI: No signs and/or symptoms were reported involving the gastrointestinal system. : No signs and/or symptoms were reported regarding the genitourinary system. EENT: No signs and/or symptoms were reported regarding the EENT system. Derm: Skin is intact, is healthy with good turgor, Skin is pink, warm \T\ dry. normal. Musculoskeletal: Circulation, motion, and sensation intact. Capillary refill < 3 seconds. 19:59 Reassessment: patient refused to complete iv fluid. provider informed. mg2 Vital Signs: 17:53 BP 144 / 59; Pulse 71; Resp 17 S; Temp 98.6(O); Pulse Ox 99% on R/A; Weight 59.42 kg jl7 (R); Height 5 ft. 1 in. (154.94 cm) (R); Pain 7/10; 18:59 BP 139 / 66; Pulse 68; Resp 18 S; Pulse Ox 100% on R/A; mg2 19:41 BP 115 / 50; Pulse 63; Resp 17; Pulse Ox 100% on R/A; mg2 17:53 Body Mass Index 24.75 (59.42 kg, 154.94 cm) jl7 ED Course: 17:28 Patient arrived in ED. mr 17:29 Madison Campoverde is Private Physician. mr 17:51 Triage completed. jl7 17:53 Arm band placed on right wrist. jl7 17:57 Gino Kaye NP is PHCP. pm1 17:58 Ihsan Milligan MD is Attending Physician. pm1 18:18 Manolo Chang RN is Primary Nurse. mg2 18:23 CT completed. Patient tolerated procedure well. Patient moved back from CT. bq 18:30 CT Head Brain wo Cont In Process Unspecified. EDMS 18:58 XRAY Chest (1 view) In Process Unspecified. EDMS 19:00 Inserted saline lock: 24 gauge in left hand, using aseptic technique. Blood collected. mg2 20:06 No provider procedures requiring assistance completed. mg2 20:07 Patient has correct armband on for positive identification. mg2 20:07 IV discontinued, intact, bleeding controlled, No redness/swelling at site. Pressure mg2 dressing applied. Administered Medications: 18:58 Drug: Reglan 10 mg Route: IVP; Site: left hand; mg2 18:58 Drug: Decadron - Dexamethasone 10 mg Route: IVP; Site: left hand; mg2 18:58 Drug: Benadryl 12.5 mg Route: IVP; Site: left hand; mg2 19:40 Drug: NS 0.9% 500 ml Route: IV; Rate: bolus; Site: left hand; mg2 Outcome: 19:40 Discharge ordered by MD. pm1 20:07 Discharged to home via wheelchair, with family. mg2 20:07 Condition: stable 20:07 Discharge instructions given to patient, family, Instructed on discharge instructions, follow up and referral plans. Demonstrated understanding of instructions, follow-up care. 20:08 Patient left the ED. mg2 Signatures: Dispatcher [employer] LOVE Noe Joanne Rivera Gino Redman, [employer]ATORY COORDINATOR pm1 Tiago Farley RN RN jl7 Manolo Chang RN RN mg2
--- NOTE | 2019-05-17 19:41 | EDPHYS ---
Physician Documentation [facility] Name: Ekta Allison Age: 73 yrs Sex: Female : 1945 Arrival Date: 05/17/2019 Time: 17:28 Bed 25 Private MD: Madison Campoverde ED Physician Ihsan Milligan HPI: 05/17 18:49 This 73 yrs old Female presents to ER via Ambulatory with complaints of High pm1 Blood Pressure, Dizziness. 18:49 The patient has elevated blood pressure and discovered this at home, with a home pm1 device. Onset: The symptoms/episode began/occurred today. Modifying factors: The symptoms are aggravated by elevated blood pressure. Associated signs and symptoms: Pertinent positives: dizziness, headache, Pertinent negatives: chest pain, dyspnea, nausea, vomiting, weakness. Severity of symptoms: in the emergency department the blood pressure is improved, 144 mm Hg. The patient has experienced similar episodes in the past, multiple times, and the symptoms today are exactly the same, elevated blood pressure typically causes a headache and she takes her PRN clonidine and it improves her headache and BP. Typically the headache goes away but it is still present. Historical: - Allergies: 17:53 Iodinated Contrast Media - IV Dye; jl7 17:53 Vicodin; jl7 - Home Meds: 17:53 amlodipine 5 mg tab 1 tab once daily [Active]; aspirin 81 mg Oral chew 1 tab once daily jl7 [Active]; clonidine HCl 0.1 mg Oral tab 1 tab prn, when systolic over 160 [Active]; pantoprazole 40 mg Oral TbEC 1 tab once daily [Active]; pantoprazole 40 mg oral TbEC 1 tab once daily [Active]; valsartan 160 mg Oral tab 1 tab once daily [Active]; - PMHx: 17:53 Hypertension; Pacemaker; jl7 - PSHx: 17:53 Pacemaker; jl7 - Immunization history:: Adult Immunizations up to date. - Social history:: Smoking status: Patient/guardian denies using tobacco. - Ebola Screening: : No symptoms or risks identified at this time. ROS: 18:49 Constitutional: Negative for fever, chills, and weight loss, Eyes: Negative for injury, pm1 pain, redness, and discharge, ENT: Negative for injury, pain, and discharge, Neck: Negative for injury, pain, and swelling, Cardiovascular: Negative for chest pain, palpitations, and edema, Respiratory: Negative for shortness of breath, cough, wheezing, and pleuritic chest pain, Abdomen/GI: Negative for abdominal pain, nausea, vomiting, diarrhea, and constipation, Back: Negative for injury and pain, : Negative for injury, bleeding, discharge, and swelling, MS/Extremity: Negative for injury and deformity, Skin: Negative for injury, rash, and discoloration. 18:49 Neuro: Positive for dizziness, headache, Negative for numbness, tingling, weakness. Exam: 18:49 Constitutional: This is a well developed, well nourished patient who is awake, alert, pm1 and in no acute distress. Eyes: Pupils equal round and reactive to light, extra-ocular motions intact. Lids and lashes normal. Conjunctiva and sclera are non-icteric and not injected. Cornea within normal limits. Periorbital areas with no swelling, redness, or edema. ENT: Nares patent. No nasal discharge, no septal abnormalities noted. Tympanic membranes are normal and external auditory canals are clear. Oropharynx with no redness, swelling, or masses, exudates, or evidence of obstruction, uvula midline. Mucous membranes moist. Neck: Trachea midline, no thyromegaly or masses palpated, and no cervical lymphadenopathy. Supple, full range of motion without nuchal rigidity, or vertebral point tenderness. No Meningismus. Chest/axilla: Normal chest wall appearance and motion. Nontender with no deformity. No lesions are appreciated. Cardiovascular: Regular rate and rhythm with a normal S1 and S2. No gallops, murmurs, or rubs. Normal PMI, no JVD. No pulse deficits. Respiratory: Lungs have equal breath sounds bilaterally, clear to auscultation and percussion. No rales, rhonchi or wheezes noted. No increased work of breathing, no retractions or nasal flaring. Abdomen/GI: Soft, non-tender, with normal bowel sounds. No distension or tympany. No guarding or rebound. No evidence of tenderness throughout. Back: No spinal tenderness. No costovertebral tenderness. Full range of motion. 18:49 Skin: Warm, dry with normal turgor. Normal color with no rashes, no lesions, and no evidence of cellulitis. MS/ Extremity: Pulses equal, no cyanosis. Neurovascular intact. Full, normal range of motion. 18:49 Head/face: Noted is no obvious of injury or deformity except tenderness, of the scalp from forehead to occipital area. 18:49 Neuro: Orientation: is normal, Mentation: is normal, Motor: is normal, moves all fours, Sensation: is normal, no obvious gross deficits. Vital Signs: 17:53 BP 144 / 59; Pulse 71; Resp 17 S; Temp 98.6(O); Pulse Ox 99% on R/A; Weight 59.42 kg jl7 (R); Height 5 ft. 1 in. (154.94 cm) (R); Pain 7/10; 18:59 BP 139 / 66; Pulse 68; Resp 18 S; Pulse Ox 100% on R/A; mg2 19:41 BP 115 / 50; Pulse 63; Resp 17; Pulse Ox 100% on R/A; mg2 17:53 Body Mass Index 24.75 (59.42 kg, 154.94 cm) 7 MDM: 18:01 Patient medically screened. tere 19:22 ED course: Patient's headache resolved and she wants to go home. Reports that she pm1 drinks plenty of fluid and eats well. Informed patient that she is dehydrated according to labs and requested that patient at least get 500 mL of fluid prior to go home even though I would like more fluid. Patient agreed to stay for 500 mL of IV fluid. 19:39 Data reviewed: vital signs. Data interpreted: Pulse oximetry: on room air is 100 %. pm1 Interpretation: normal. Counseling: I had a detailed discussion with the patient and/or guardian regarding: the historical points, exam findings, and any diagnostic results supporting the discharge/admit diagnosis, lab results, radiology results, the need for outpatient follow up, to return to the emergency department if symptoms worsen or persist or if there are any questions or concerns that arise at home. 05/17 18:21 Order name: Basic Metabolic Panel; Complete Time: 19:19 pm1 05/17 18:21 Order name: CBC with Diff; Complete Time: 19:11 pm1 05/17 18:21 Order name: LFT's; Complete Time: 19:19 pm1 05/17 18:21 Order name: Magnesium; Complete Time: 19:19 pm1 05/17 18:21 Order name: NT PRO-BNP; Complete Time: 19:19 pm1 05/17 18:21 Order name: PT-INR; Complete Time: 19:11 pm1 05/17 18:09 Order name: CT Head Brain wo Cont; Complete Time: 19:34 pm05/17 18:21 Order name: Troponin (emerg Dept Use Only); Complete Time: 19:19 pm1 05/17 18:21 Order name: XRAY Chest (1 view) pm05/17 18:21 Order name: EKG; Complete Time: 18:22 pm1 05/17 18:09 Order name: IV Saline Lock; Complete Time: 18:59 pm1 05/17 18:21 Order name: Cardiac monitoring; Complete Time: 18:58 pm1 05/17 18:21 Order name: EKG - Nurse/Tech; Complete Time: 18:58 pm1 05/17 18:21 Order name: Labs collected and sent; Complete Time: 18:58 pm1 05/17 18:21 Order name: O2 Per Protocol; Complete Time: 18:58 pm1 05/17 18:21 Order name: O2 Sat Monitoring; Complete Time: 18:58 pm1 Administered Medications: 18:58 Drug: Reglan 10 mg Route: IVP; Site: left hand; mg2 18:58 Drug: Decadron - Dexamethasone 10 mg Route: IVP; Site: left hand; mg2 18:58 Drug: Benadryl 12.5 mg Route: IVP; Site: left hand; mg2 19:40 Drug: NS 0.9% 500 ml Route: IV; Rate: bolus; Site: left hand; mg2 Disposition: 05/17/19 19:40 Discharged to Home. Impression: Headache, Dehydration. - Condition is Stable. - Discharge Instructions: Dehydration, Elderly, General Headache Without Cause, Rehydration, Elderly. - Medication Reconciliation Form, Thank You Letter, Antibiotic Education, Prescription Opioid Use form. - Follow up: Emergency Department; When: As needed; Reason: Worsening of condition. Follow up: Private Physician; When: 2 - 3 days; Reason: Recheck today's complaints, Continuance of care, Re-evaluation by your physician. - Problem is new. - Symptoms have improved. Addendum: 05/19/2019 09:31 Co-signature as Attending Physician, Ihsan Milligan MD I agree with the assessment and c yao plan of care. Signatures: Dispatcher [employer] EDIhsan Lozoya MD MD cha Marinas, Patrick, BALLISTIC TECHNICIAN BALLISTIC TECHNICIAN pm1 Tiago Farley, RN RN jl7 Manolo Chang, RN RN mg2 Corrections: (The following items were deleted from the chart) 05/17 20:08 19:40 05/17/2019 19:40 Discharged to Home. Impression: Headache; Dehydration. Condition mg2 is Stable. Forms are Medication Reconciliation Form, Thank You Letter, Antibiotic Education, Prescription Opioid Use. Follow up: Emergency Department; When: As needed; Reason: Worsening of condition. Follow up: Private Physician; When: 2 - 3 days; Reason: Recheck today's complaints, Continuance of care, Re-evaluation by your physician. Problem is new. Symptoms have improved. pm1
[2019-05-17 20:37] VITALS: TEMP 98.6
[2019-05-17 20:38] VITALS: O2SAT 100
--- NOTE | 2019-05-17 20:38 | RAD REPORT ---
EXAM DESCRIPTION: RAD - Chest Single View - 05/17/2019 6:58 pm CLINICAL HISTORY: Cough, dizziness COMPARISON: March 2019 TECHNIQUE: AP portable chest image was obtained 1854 hours . FINDINGS: Lungs are clear. Heart and vasculature are normal. No measurable pleural effusion and no p neumothorax. No acute bony abnormality seen. No acute aortic findings suspected. No significant inter héctor change. IMPRESSION: No acute cardiopulmonary process.
[2019-05-17 20:39] VITALS: BP 115/50
--- NOTE | 2019-05-18 12:48 | EKG ---
Test Date: 2019-05-17 Test Time: 18:53:32 Qc Scientist: MG MEASUREMENT RESULTS: Intervals: Rate: 63 NJ: 134 QRSD: 84 QT: 442 QTc: 452 [place]: P: 60 NJ: 134 QRS: -9 T: 57 INTERPRETIVE STATEMENTS: Normal sinus rhythm Possible Inferior infarct, age undetermined Abnormal ECG Compared to ECG 03/28/2019 13:57:13 Myocardial infarct finding now present Short NJ interval no longer present ST (T wave) deviation no longer present Electronically Signed On 05-18-19 12:47:33 [employer] by Thomas Knox
== END 2019-05-17 20:08 | disposition home or self-care (01) ==
LOC: ER 17:26
DX: R51 Headache (principal); E86.0 Dehydration; Z91.09 Other allergy status, other than to drugs and biological substances; Z95.0 Presence of cardiac pacemaker
CPT/HCPCS: 93005; 85025; 80048; 36415; 83735; 85610; 80076; 84484; 83880; 70450; 71045; 96375; 96374; 99284; J2765; J1200; J1100; J7040

== ENCOUNTER 2019-08-03 21:19 | Emergency (ER) | payer OTHER ==
--- OUTSIDE RECORDS SUMMARY | 2019-08-03 21:23 | XMS REPORT ---
[...] Status Dosage System Date Date Aspirin 81 [facility] 04921048955 81 MG Orally Active 1 tablet Once a day Omeprazole [facility] 80273963384 40 MG Orally Jan 30, Active 1 capsule Once a day 2017 Amlodipine-Quan [facility] 03244296439 5-40 MG Orally Jan 30, Active 1 tablet rvastatin Once a day 2017 Results No Known Results Summary Purpose eClinicalWorks Submission
--- OUTSIDE RECORDS SUMMARY | 2019-08-03 21:23 | XMS REPORT ---
:1945 [facility] Address [address] [place] [address] [place] [id number] Care Team Providers Name Role Phone Unavailable [...] 14:01:16 2018-10-16 Outpatient [facility] RODRIGUE [id number] 15:44:11 2019-05-20 2019-05-20 Outpatient [facility] [id number] 08:43:00 08:43:00
--- OUTSIDE RECORDS SUMMARY | 2019-08-03 21:24 | XMS REPORT | Summary of Care ---
:1945 Author Organization [facility] - Health Address [address] [place] [address] Care Team Providers Name Role Phone Madison Campoverde Primary Care Provider Unavailable Reason for Visit Auth/Cert Status Reason Specialty Diagnoses / Procedures Referred By Contact Referred To Contact Surgery Diagnoses Combined forms of age-related cataract, left eye Cataract of the L eye H25.812 (ICD-10-CM) - Combined forms of age-related cataract, left eye Adc Pre/Pacu/Post Procedures NV XCAPSL CTRC RMVL INSJ IO LENS PROSTH W/O ECP PHACOEMULSIFICATION OF CATARACT WITH INTRAOCULAR LENS IMPLANT 75174 - NV XCAPSL CTRC RMVL INSJ IO LENS PROSTH W/O ECP [address] [place] [address] [place] [address] Encounter Details Date Type Department Care Team Description 07/17/2019 Hospital Encounter [facility] [address] [place] [address] [place] [id number] [address] [address] [place] [address] Allergies Active Allergy Reactions Severity Noted Date Comments Acetaminophen-Codeine Other - See comments Medium 04/12/2018 Hydrocodone-Acetaminop Unknown - See comments 12/16/2018 Other reaction(s) : GI hen intolerance, GI Intolerance, Other (see comments) Nausea, vomiting Nausea, vomiting Iodinated Contrast Unknown - See 12/16/2018 Other reaction(s): Media comments, Swelling Other (see comments) documented as of this encounter (statuses as of 07/17/2019) Medications Medication Sig Dispensed Refills Start Date End Date Status amLODIPine 5 mg tablet amlodipine 5 mg 0 Active tablet levothyroxine 25 mcg TAKE 1 TABLET BY 0 04/23/2019 Active tablet MOUTH EVERY MORNING WITH WATER AND ON AN EMPTY STOMACH omeprazole 40 mg omeprazole 40 mg 0 Active capsule capsule,delayed release documented as of this encounter (statuses as of 07/17/2019) Active Problems Not on filedocumented as of this encounter (statuses as of 07/17/2019) Social History Tobacco Use Types Packs/Day Years Used Date Never Smoker Smokeless Tobacco: Never Used Sex Assigned at Date Recorded Not on file Job Start Date Occupation Industry Not on file Not on file Not on file Travel History Travel Start Travel End No recent travel history available. documented as of this encounter Last Filed Vital Signs Vital Sign Reading Time Taken Comments Blood Pressure 135/55 07/17/2019 11:00 AM CHIEF LEARNING OFFICER Pulse 63 07/17/2019 10:47 AM CHIEF LEARNING OFFICER Temperature 36.2 C (97.1 F) 07/17/2019 10:47 AM CHIEF LEARNING OFFICER Respiratory Rate 16 07/17/2019 10:47 AM CHIEF LEARNING OFFICER Oxygen Saturation 99% 07/17/2019 11:00 AM CHIEF LEARNING OFFICER Inhaled Oxygen Concentration - - Weight 59 kg (130 lb 1.1 oz) 07/15/2019 2:30 PM CHIEF LEARNING OFFICER Height 154.9 cm (5' 1") 07/15/2019 2:30 PM CHIEF LEARNING OFFICER Body Mass Index 24.58 07/15/2019 2:30 PM CHIEF LEARNING OFFICER documented in this encounter Discharge Summaries Giovanny Leal MD - 07/17/2019 10:45 AM CSTCONDITION AT DISCHARGE: Patient was discharged from the facility in stable condition. Please see discharge instructions. FOLLOW UP CARE: See post op instructions. DISCHARGE DISPOSITION: HOME DISCHARGE INSTRUCTIONS GIVEN TO: PATIENT documented in this encounter Discharge Instructions Mayra Negrete RN - 07/17/2019CATARACT DISCHARGE INSTRUCTIONS 1. DO NOT Remove the eye patch. Leave on until you post-operative visit tomorrow. Keep it dry. 2. Activities as tolerated 3. Please no heavy lifting, and do not drive or operate machinery until you are seen by a doctor on your first post op day. 4. Your depth perception may be off, so walk a little slower. Be careful on steps or stairs and uneven ground and go slower around corners. 5. Most likely your eye will stay numb until tomorrow and you should not experience any extreme pain. However, if you should have bad pain or nausea, please call the doctor's office or hospital chief operator reformer to get in touch with doctor. 6. For mild discomfort or a headache, you may take Tylenol, Aspirin, or Ibuprofen (in not allergic). 7. You may resume your pre-operative diet. 8. If you have any further questions or concerns, please call the office or hospital chief operator reformer to getin touch with the doctor. General Discharge Instructions: Follow instructions as indicated below: 1. The medication that was used will be acting in your system for the next 24 hours, so you might feel a little drowsy, with impaired judgment and or motor function. This feeling should go wear off. Because the medication is still in your system for the next 24 hours you SHOULD NOT: Drive a car, operate machinery or power tool. Drink any alcohol beverages (including beer or wine). Make any important decisions or sign any legal documents. 2. You should rest the remainder of the day and not engage in any physical activity. Move slowly today. After lying down, sit on the edge of the bed for a moment before standing. YOU ARE RESPONSIBLEFOR HAVING SOMEONE AT HOME WITH YOU DURING THE AFTERNOON AND NIGHT IMMEDIATELY FOLLOWING YOUR SURGERY. Patient should cough and deep breathe every 2-4 hours while awake to avoid respiratory complications. 3. Activity: No heavy lifting or bending over. 4. Wound/ dressing care: Keep patch in place until instructed by MD. 5. Special Instructions: 6. Other discharge instructions 7. Weight: In general, sudden weight gains or losses should be reported to your provider. Cardiac patients should weigh daily and notify their provider for a weight gain of 3 pounds per day or 5 pounds per week. 8. Tobacco Avoidance: Follow recommendations below 9. Because the medications used could procedure some residual nausea and vomiting after you go home,you should eat lightly today, starting with clear liquids (broth, soft drinks, apple juice, jello) and toast or crackers, progressing to bland solid foods and then to your normal diet as tolerated, unless otherwise stated by your surgeon. If you get sick, wait a couple of hours and then begin to eat. After 24 hours the nausea should be gone. If your nausea persists, contact your physician. 10. You may experience some pain and your physician will advise you on what to take for discomfort.This should be taken as directed. If the pain is not relieved, contact your physician. You may also have a sore throat from the airway that was in place. You may uses lozenges, throat spray (such asChloraseptic), or warm salt water gargles for symptomatic relief. 11. If you feel warm, take your temperature. If it is 101 degrees or above call your physician. 12. If you are unable to urinate within five hours after your procedure, call your physician. 13. The type of surgery performed will determine how much bleeding (if any) to expect. Normally, some spotting might occur. If your dressing pad becomes saturated, notify your physician. Elevate surgical site, if applicable, to reduced swelling and pain. Tips on preventing a surgical site infection.. Dont smoke. It is best to quit at least 30 days before surgery, but quitting after surgery is also helpful. If you are diabetic, keep your blood sugar well controlled. WASH YOUR HANDS. Keep your wound clean and remember to wash your hands before and after contact with the area. All health care workers should also wash their hands or use an alcohol based hand rub prior to examining you. If antibiotics are prescribed, take them as directed. Finish the entire course of antibiotics. Call your doctor if you have signs of infection: ? Increased tenderness at the surgical site ? Red streaks or increased redness of the area ? Bad-smelling discharge from the incision ? Fever of 101F or higher ? General tired feeling that doesnt improve If you experience any of the following symptoms fever greater than 101, uncontrolled pain not relieved by pain medications, uncontrolled nausea or vomiting or any other concerns you have, please followup with your physician. For worsening symptoms/changing condition/problems or questions: Non-emergency/urgent: Call the [facility] Hotline at or Emergency: Go to the closest emergency room or call 911 If you receive the patient satisfaction survey by mail please complete and return and let us know how we are doing. TOBACCO AVOIDANCE Exposure to tobacco either from smoking or from second hand (environmental) smoke or smokeless tobacco (snuff) is damaging to your health. This information is to encourage everyone to avoid tobacco exposure. It is recommended that you: ? If you smoke or use smokeless tobacco, we encourage you to quit. ? If you have already quit smoking, continue your good work! ? If you do not smoke or use smokeless tobacco, do not start. ? Avoid secondhand smoke. Additional Resources You may want to contact these organizations for further information on smoking and how to quit. [place] [employer], http://www.lungusa.org/stop-smoking/ [place] [employer], http://www.cancer.org/Healthy/StayAwayfromTobacco/index [place] [employer], http://www.heart.org/HEARTORG/GettingHealthy/ QuitSmoking/Quit-Smoking_[facility]_001085_SubHomePage.jsp documented in this encounter Plan of Treatment Health Maintenance Due Date Last Done Comments DTaP,Tdap,and Td Vaccines (1 - Tdap) 09/10/1954 Breast Cancer Screening (MAMMOGRAM) 1983 COLONOSCOPY 09/10/1993 Zoster Recombinant Vaccine (SHINGRIX) (1 of 2) 09/10/1993 Medicare Wellness Visit 09/10/2008 Osteoporosis Screening 09/10/2008 PNEUMOCOCCAL VACCINES 65+ (1 of 2 - PCV13) 09/10/2008 INFLUENZA VACCINE (#1) 2019 02/11/2015 documented as of this encounter Implants Implanted Type Area Pulp Roller Device Shelf Model / Serial Identifier Expiration / Lot Date Lens, Zia #[id number] - S0 LENS Left: Eye Zia 12/12/2023 [id number] / Implanted: Qty: 1 on 07/17/2019 by Giovanny Leal MD at [facility] 0 / [id number] documented as of this encounter Procedures Procedure Name Priority Date/Time Associated Diagnosis Comments CONSENT/REFUSAL FOR Routine 07/10/2019 4:19 PM DIAGNOSIS AND TREATMENT CHIEF LEARNING OFFICER ASSIGNMENT OF BENEFITS Routine 07/10/2019 4:19 PM CHIEF LEARNING OFFICER CONSENT/REFUSAL FOR Routine 07/10/2019 4:19 PM DIAGNOSIS AND TREATMENT CHIEF LEARNING OFFICER ASSIGNMENT OF BENEFITS Routine 07/10/2019 4:19 PM CHIEF LEARNING OFFICER PHYSICIAN ORDERS Routine 07/10/2019 12:01 AM CHIEF LEARNING OFFICER documented in this encounter Results Not on filedocumented in this encounter Visit Diagnoses Diagnosis Nuclear sclerotic cataract, left - Primary documented in this encounter Administered Medications Medication Order MAR Action Action Date Dose Rate Site balanced salt irrig soln Given 07/17/2019 10:37 AM CHIEF LEARNING OFFICER 500 mL Left Eye comb1 (BSS PLUS) ophthalmic solution 500 mL bag PRN, Starting Jessica 320 at 1037, Until Discontinued, Routine, Intra-op bupivacaine (preserv free) Given 07/17/2019 10:37 AM CHIEF LEARNING OFFICER 2.5 mL Left Eye (SENSORCAINE MPF) 0.75 % (7.5 mg/mL) injection PRN, Starting Jessica 320 at 1037, Until Discontinued, Routine, Intra-op ceFAZolin (ANCEF) injection Given 07/17/2019 10:38 AM CHIEF LEARNING OFFICER 0.1 mL Left Eye PRN, Starting Jessica 320 at 1038, Until Discontinued, KRYSTA, Intra-op dexamethasone (DECADRON PHOSPHATE) Given 07/17/2019 10:38 AM CHIEF LEARNING OFFICER 0.1 mL Left Eye injection PRN, Starting Jessica 320 at 1038, Until Discontinued, Routine, Intra-op DUOVISC (DUOVISC VISCO ELASTIC) 3 %-4 Given 07/17/2019 10:38 AM CHIEF LEARNING OFFICER 1 Kit Left Eye %(0.5 mL) 1 % (0.55 mL) intraocular injection PRN, Starting Jessica 320 at 1038, Until Discontinued, Routine, Intra-op EPINEPHrine (PF) 1:1,000 (1 mg/mL) Given 07/17/2019 10:38 AM CHIEF LEARNING OFFICER 0.5 mL Left Eye (ADRENALIN (PF)) injection PRN, Starting Jessica 320 at 1038, Until Discontinued, Routine, Intra-op FENTanyl PF (SUBLIMAZE (PF)) injection 25 mcg 25 mcg, Slow IV Push, Q5MIN PRN, 4 doses, Starting Jessica 3/20 at 1051, Until Discontinued, Routine, Pain (scale 4-6), PACU gentamicin injection Given 07/17/2019 10:39 AM CHIEF LEARNING OFFICER 0.1 mL Left Eye PRN, Starting Jessica 320 at 1039, Until Discontinued, KRYSTA, Intra-op lactated ringers IV infusion 1,000 mL at 75 mL/hr, 1,000 mL, IV Infusion, CONTINUOUS, Starting Jessica 320 at 1100, Until Discontinued, Routine, PACU lidocaine 1% (PF) (XYLOCAINE) injection 1 mL 1 mL, Infiltration, PRN, Starting Jessica 07/17/19 at 0824, Until Discontinued, Routine, Surgery/Procedure, DSU Pre-op lidocaine-epinephrine (XYLOCAINE Given 07/17/2019 10:39 AM CHIEF LEARNING OFFICER 2.5 mL Left Eye W/EPINEPHRINE) 2 %-1:200,000 injection PRN, Starting Jessica 3 at 1039, Until Discontinued, Routine, Intra-op liglombo-tbwpsdwwj-blmnnvhwhmgvl Given 07/17/2019 10:39 0.5 Inches Left Eye (MAXITROL) 3.5 mg/g-10,000 unit/g-0.1 % AM CHIEF LEARNING OFFICER ophthalmic ointment PRN, Starting Jessica 07/17/19 at 1039, Until Discontinued, Routine, Intra-op ondansetron (ZOFRAN (PF)) injection 4 mg 4 mg, Slow IV Push, PRN, 1 dose, Starting Jessica 07/17/19 at 1051, Until Discontinued, Routine, Nausea and Vomiting (N/V), PACU sodium chloride (NS) injection Given 07/17/2019 10:39 AM CHIEF LEARNING OFFICER 10 mL Left Eye PRN, Starting Jessica 07/17/19 at 1039, Until Discontinued, Routine, Intra-op tetracaine (PONTOCAINE) 0.5 % Given 07/17/2019 10:40 AM CHIEF LEARNING OFFICER 3 Drops Left Elbow ophthalmic drops PRN, Starting Jessica 07/17/19 at 1040, Until Discontinued, Routine, Intra-op water for irrigation irrigation Given 07/17/2019 10:40 AM CHIEF LEARNING OFFICER 10 mL Left Eye solution PRN, Starting Jessica 07/17/19 at 1040, Until Discontinued, Routine, Intra-op Medication Order MAR Action Action Date Dose Rate Site lactated ringers IV infusion New Bag 07/17/2019 8:26 AM CHIEF LEARNING OFFICER 1,000 mL 20 mL /hr 1,000 mL at 20 mL/hr, 1,000 mL, IV Infusion, ONCE, 1 dose, Jessica 07/17/19 at 0830, Routine, DSU Pre-op mydriatic #5 ophthalmic solution 0.5 mL Given 07/17/2019 8:27 AM CHIEF LEARNING OFFICER 0.5 mL syringe 0.5 mL, Left Eye, ONCE, 1 dose, Jessica 07/17/19 at 0830, Routine, DSU Pre-op documented in this encounter Insurance Payer Benefit Plan / Subscriber ID Effective Dates Phone Address Type Group MEDICARE MEDICARE PART xxxxxxxxxxx 2008-Caleb [phone] [address] Medicare [address] & [address] t [id number] [place] [phone] [facility] [employer] [id number] 2019-Kristal [place] nt documented as of this encounter
--- OUTSIDE RECORDS SUMMARY | 2019-08-03 21:24 | XMS REPORT | Summary of Care ---
:1945 Author Organization [facility] Address [address] [place] [address] Care Team Providers Name Role Phone Madison Campoverde Primary Care Provider Unavailable Reason for Visit Reason Comments Follow-up Knee Pain INJECTION 3rd orthovisc left knee Encounter Details Date Type Department Care Team Description 07/04/2019 Office Visit [facility] Dhaval Carrillo, Primary osteoarthritis Orthopaedic Surgery- PAC of left knee (Primary [place] [address]) [address], [facility] [place] [address] [place] [address] [phone] Allergies Active Allergy Reactions Severity Noted Date Comments Acetaminophen-Codeine Other - See comments Medium 04/12/2018 Hydrocodone-Acetaminop Unknown - See comments 12/16/2018 Other reaction(s) : GI hen intolerance, GI Intolerance, Other (see comments) Nausea, vomiting Nausea, vomiting Iodinated Contrast Unknown - See 12/16/2018 Other reaction(s): Media comments, Swelling Other (see comments) documented as of this encounter (statuses as of 07/04/2019) Medications Medication Sig Dispensed Refills Start Date End Date Status amLODIPine 5 mg tablet amlodipine 5 mg 0 Active tablet levothyroxine 25 mcg TAKE 1 TABLET BY 0 04/23/2019 Active tablet MOUTH EVERY MORNING WITH WATER AND ON AN EMPTY STOMACH omeprazole 40 mg omeprazole 40 mg 0 Active capsule capsule,delayed release Hospital, Clinic, or Ordered Dose Route Frequency Start Date End Date Status Other Facility Administered Medication sodium hyaluronate 30 mg Intra-articu ONCE 07/04/2019 07/04/2019 Ended (viscosup) (ORTHOVISC) injection 30 mg documented as of this encounter (statuses as of 07/04/2019) Active Problems Not on filedocumented as of this encounter (statuses as of 07/04/2019) Social History Tobacco Use Types Packs/Day Years [...] Sign Reading Time Taken Comments Blood Pressure - - Pulse - - Temperature - - Respiratory Rate - - Oxygen Saturation - - Inhaled Oxygen Concentration - - Weight 59 kg (130 lb) 07/04/2019 9:25 AM TOOL GRINDER SET UP OPERATOR GEAR Height 154.9 cm (5' 1") 07/04/2019 9:25 AM TOOL GRINDER SET UP OPERATOR GEAR Body Mass Index 24.56 07/04/2019 9:25 AM TOOL GRINDER SET UP OPERATOR GEAR documented in this encounter Progress Notes Dhaval Carrillo, PAC - 07/04/2019 9:30 AM CST Cc: Chief Complaint Patient presents with Follow-up Knee Pain INJECTION 3rd orthovisc left knee Jessi Allison is a 73 year old female. HPI Allergies Jessi is allergic to acetaminophen-codeine; hydrocodone-acetaminophen; and iodinated contrast media. Medications Outpatient Medications Prior to Visit Medication Sig Dispense Refill amLODIPine 5 mg tablet amlodipine 5 mg tablet levothyroxine 25 mcg tablet TAKE 1 TABLET BY MOUTH EVERY MORNING WITH WATER AND ON AN EMPTY STOMACH omeprazole 40 mg capsule omeprazole 40 mg capsule,delayed release No facility-administered medications prior to visit. Histories No past medical history on file. No past surgical history on file. Social History Socioeconomic History Marital status: Single Spouse name: Not on file Number of children: Not on file Years of education: Not on file Highest education level: Not on file Occupational History Not on file Social Needs Financial resource strain: Not on file Food insecurity: Worry: Not on file Inability: Not on file Transportation needs: Medical: Not on file Non-medical: Not on file Tobacco Use Smoking status: Never Smoker Smokeless tobacco: Never Used Substance and Sexual Activity Alcohol use: Not on file Drug use: Not on file Sexual activity: Not on file Lifestyle Physical activity: Days per week: Not on file Minutes per session: Not on file Stress: Not on file Relationships Social connections: Talks on phone: Not on file Gets together: Not on file Attends anabaptism service: Not on file Active member of club or organization: Not on file Attends meetings of clubs or organizations: Not on file Relationship status: Not on file Intimate partner violence: Fear of current or ex partner: Not on file Emotionally abused: Not on file Physically abused: Not on file Forced sexual activity: Not on file Other Topics Concern Not on file Social History Narrative Not on file No family history on file. Review of Systems Constitutional: Negative. HENT: Negative. Eyes: Negative. Respiratory: Negative. Breasts: Negative. Cardiovascular: Negative. Gastrointestinal: Negative. Genitourinary: Negative. Musculoskeletal: Positive for joint swelling. Skin: Negative. Neurological: Negative. Psychiatric/Behavioral: Negative. Endocrine: Endocrine negative Vital Signs Ht 61" (154.9 cm) | Wt 59 kg (130 lb) | BMI 24.56 kg/m Physical Exam Assessment/Plan Diagnosis 1. Primary osteoarthritis of left knee Here for third of 3 Orthovisc injections in the left knee The knee was examined and marked with ultrasound guidance. The skin was then prepped thoroughly 3 times in a bull's-eye fashion with Betadine and then cleaned with alcohol allowing the alcohol to soak for 30 seconds. Ethyl chloride anesthetic spray was used to provide cryo-anesthesia. Under ultrasoundguidance the needle was advanced into the knee joint behind the fat pad and Orthovisc prefilled syringe was injected. The site was cleansed with alcohol then dried with a sterile 4 x 4 and a sterile Band-Aid was applied. Patient tolerated procedure well, no reactions were noted. This is a large joint /intraarticular/intramuscular injection. Post Injection Recommendations but not required: 1. Avoid physical activity for 48 hours following an injection to keep the knee from swelling. 2. Ice your knee if you have any mild pain or swelling near the injection site. 3. Avoid standing on your feet for more than 1 hour at a time during the first 48 hours following the injection. . documented in this encounter Plan of Treatment Health Maintenance Due Date Last Done Comments DTaP,Tdap,and Td Vaccines (1 - Tdap) 09/10/1954 Breast Cancer Screening (MAMMOGRAM) 1983 COLONOSCOPY 09/10/1993 Zoster Recombinant Vaccine (SHINGRIX) (1 of 2) 09/10/1993 Medicare Wellness Visit 09/10/2008 Osteoporosis Screening 09/10/2008 PNEUMOCOCCAL VACCINES 65+ (1 of 2 - PCV13) 09/10/2008 INFLUENZA VACCINE (#1) 2019 02/11/2015 documented as of this encounter Results Not on filedocumented in this encounter Visit Diagnoses Diagnosis Primary osteoarthritis of left knee - Primary Primary localized osteoarthrosis, lower leg documented in this encounter Administered Medications Medication Order MAR Action Action Date Dose Rate Site sodium hyaluronate Given by Provider 07/04/2019 9:28 AM 30 mg Left Knee (viscosup) (ORTHOVISC) TOOL GRINDER SET UP OPERATOR GEAR injection 30 mg 30 mg, Intra-articular, ONCE, 1 dose, Sun07/04/19 at 1030, Routine documented in this encounter Insurance Payer Benefit Plan / Subscriber ID Effective Dates Phone Address Type Group MEDICARE MEDICARE PART xxxxxxxxxxx 2008-Caleb [phone] [address] Medicare A & B t 2 [id number] [place] [id number] [employer] [facility] [id number] 2019-Kristal [place] nt documented as of this encounter
--- OUTSIDE RECORDS SUMMARY | 2019-08-03 21:24 | XMS REPORT | Summary of Care ---
:1945 Author Organization [facility] Address [address] [place] [address] Care Team Providers Name Role Phone Madison Campoverde Primary Care Provider Unavailable Reason for Visit Reason Comments Follow-up Knee Pain INJECTION 3rd orthovisc left knee Encounter Details Date Type Department Care Team Description 07/04/2019 Office Visit [facility] Dhaval Carrillo, Primary osteoarthritis Orthopaedic Surgery- PAC of left knee (Primary [place] [address]) [address], [facility] [place] [address] [place] [phone] Allergies Active Allergy Reactions Severity Noted Date [...] 59 kg (130 lb) 07/04/2019 9:25 AM 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 Height 154.9 cm (5' 1") 07/04/2019 9:25 AM 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 Body Mass Index 24.56 07/04/2019 9:25 AM 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 documented in this encounter Progress Notes Dhaval [...] file Gets together: Not on file Attends latter-day service: Not on file Active member of [...] AM 30 mg Left Knee (viscosup) (ORTHOVISC) 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 injection 30 mg 30 mg, Intra-articular, ONCE, 1 dose, Sun07/04/19 at 1030, Routine documented in this encounter Insurance Payer Benefit Plan / Subscriber ID Effective Dates Phone Address Type Group MEDICARE MEDICARE PART xxxxxxxxxxx 2008-Caleb [phone] [address] Medicare A & B t 2 [id number] [place] [id number] [employer] [facility] [id number] 2019-Kristal [place] nt documented as of this encounter
--- OUTSIDE RECORDS SUMMARY | 2019-08-03 21:24 | XMS REPORT | Summary of Care ---
:1945 Author Organization [facility] Address [address] [place] [id number] Care Team Providers Name Role Phone Madison Campoverde Primary Care Provider Unavailable Reason for Visit Reason Comments LAB WORK Auth/Cert Status Reason Specialty Diagnoses / Procedures Referred By Contact Referred To Contact Phlebotomy Diagnoses Combined forms of age-related cataract, left eye H25.812 (ICD-10-CM) - Combined forms of age-related cataract, left eye Adc Pob Lab Draw Procedures CBC WITH DIFF COMP. METABOLIC PANEL ([id number]) CBC WITH DIFF CMP Professional [facility] Building [address] [place] [address] , [address] [place] [address] Encounter Details Date Type Department Care Team Description 07/10/2019 Director Of Perioperative Services Visit [facility] Elvis, Giovanny Yancey MD [address] [phone] Pre-op testing Professional [facility] Pob, Ad[facility] Lab Main (Primary Dx) Building Phlebotomy Lab [facility] [address] [place] [address] , [address] [place] [address] Allergies Active Allergy Reactions Severity Noted Date Comments Acetaminophen-Codeine Other - See comments Medium 04/12/2018 Hydrocodone-Acetaminop Unknown - See comments 12/16/2018 Other reaction(s) : GI hen intolerance, GI Intolerance, Other (see comments) Nausea, vomiting Nausea, vomiting Iodinated Contrast Unknown - See 12/16/2018 Other reaction(s): Media comments, Swelling Other (see comments) documented as of this encounter (statuses as of 07/10/2019) Medications Medication Sig Dispensed Refills Start Date End Date Status amLODIPine 5 mg tablet amlodipine 5 mg 0 Active tablet levothyroxine 25 mcg TAKE 1 TABLET BY 0 04/23/2019 Active tablet MOUTH EVERY MORNING WITH WATER AND ON AN EMPTY STOMACH omeprazole 40 mg omeprazole 40 mg 0 Active capsule capsule,delayed release documented as of this encounter (statuses as of 07/10/2019) Active Problems Not on filedocumented as of this encounter (statuses as of 07/10/2019) Social History Tobacco Use Types Packs/Day Years Used Date Never Smoker Smokeless Tobacco: Never Used Sex Assigned at Date Recorded Not on file Job Start Date Occupation Industry Not on file Not on file Not on file Travel History Travel Start Travel End No recent travel history available. documented as of this encounter Last Filed Vital Signs Not on filedocumented in this encounter Plan of Treatment Date Type Specialty Care Team Description 07/17/2019 Hospital Encounter Surgery Giovanny Leal MD [address] [phone] 07/17/2019 Surgery Surgery Giovanny Leal PHACOEMULSIFICATION OF MD Bc CATARACT WITH INTRAOCULAR [address] LENS IMPLANT [address] [address] Name Type Priority Associated Diagnoses Date/Time CBC WITH DIFF LAB Routine Pre-op testing 07/10/2019 4:53 PM CONTACT PERSON COMP. METABOLIC PANEL LAB Routine Pre-op testing 07/10/2019 4:53 PM CONTACT PERSON ([id number]) CBC WITH DIFFERENTIAL LAB Routine Pre-op testing 07/10/2019 4:53 PM CONTACT PERSON Name Type Priority Associated Diagnoses Order Schedule CBC WITH DIFF LAB Routine Pre-op testing Expected: 07/10/2019, Expires: 07/10/2020 COMP. METABOLIC PANEL LAB Routine Pre-op testing Expected: 07/10/2019, ([id number]) Expires: 07/10/2020 Health Maintenance Due Date Last Done Comments [...] filedocumented in this encounter Visit Diagnoses Diagnosis Pre-op testing - Primary Preoperative examination, unspecified documented in this encounter Insurance Payer Benefit Plan / Subscriber ID Effective Dates Phone Address Type Group MEDICARE MEDICARE PART xxxxxxxxxxx 2008-Caleb [phone] [address] Medicare A & B t 2 [id number] [place] [id number] BuyWithMe BuyWithMe [employer] [id number] 2019-Kristal PPO OF [place] nt documented as of this encounter
--- OUTSIDE RECORDS SUMMARY | 2019-08-03 21:25 | XMS REPORT | Summary of Care ---
:1945 Author Organization [facility] - Health Address [address] [place] [address] Care Team Providers Name Role Phone Madison Campoverde Primary Care Provider Unavailable Encounter Details Date Type Department Care Team Description 07/17/2019 Orders Only [facility] Doctor Unassigned, No [address] [facility] [place] [address] [address] [place] [address] Allergies Active Allergy Reactions Severity Noted Date Comments Acetaminophen-Codeine Other - See comments Medium 04/12/2018 Hydrocodone-Acetaminop Unknown - See comments 12/16/2018 Other reaction(s) : GI hen intolerance, GI Intolerance, Other (see comments) Nausea, vomiting Nausea, vomiting Iodinated Contrast Unknown - See 12/16/2018 Other reaction(s): Media comments, Swelling Other (see comments) documented as of this encounter (statuses as of 07/18/2019) Medications Medication Sig Dispensed Refills Start Date End Date Status amLODIPine 5 mg tablet amlodipine 5 mg 0 Active tablet levothyroxine 25 mcg TAKE 1 TABLET BY 0 04/23/2019 Active tablet MOUTH EVERY MORNING WITH WATER AND ON AN EMPTY STOMACH omeprazole 40 mg omeprazole 40 mg 0 Active capsule capsule,delayed release documented as of this encounter (statuses as of 07/18/2019) Active Problems Not on filedocumented as of this encounter (statuses as of 07/18/2019) Social History Tobacco Use Types Packs/Day Years [...] filedocumented in this encounter Plan of Treatment Health [...] of this encounter Implants Implanted Type Area Exhibits Curator Device Shelf Model / Serial Identifier Expiration / Lot Date Lens, Zia #[id number] - S0 LENS Left: Eye Zia 12/12/2023 [id number] / Implanted: Qty: 1 on 07/17/2019 by Giovanny Leal MD at [facility] 0 / [id number] documented as of this encounter Procedures Procedure Name Priority Date/Time Associated Diagnosis Comments DAY SURGERY - ADC Routine 07/17/2019 12:01 AM CERTIFIED CODER documented in this encounter Results Not on filedocumented in this encounter Insurance Payer Benefit Plan / Subscriber ID Effective Dates Phone Address Type Group MEDICARE MEDICARE PART xxxxxxxxxxx 2008-Caleb [phone] [address] Medicare A & B t 2 [id number] RADHA PICKETT [id number] [email or web address] HE[employer] [id number] 2019-Kristal PPO OF [place] nt documented as of this encounter
[2019-08-03 22:17] LABS: Absolute Lymphocytes (CBC) 0.9 K/uL (0.7-4.9); Basophils % 0.3 % (0-1.3); Hematocrit 42.5 % (36.0-45.0); Lymphocytes % 9.7 % (15.3-44.8); MPV 8.6 fL (7.6-11.3); RBC Red Blood Cell Count 4.64 M/uL (3.86-4.86)
[2019-08-03 22:21] LABS: Protime INR 1.12
[2019-08-03 22:35] LABS: ALT/SGPT 25 U/L (12-78); AST/SGOT 30 U/L (15-37); Albumin 3.3 g/dL (3.4-5.0); Alkaline Phosphatase 77 U/L (45-117); BUN Blood Urea Nitrogen 17 mg/dL (7-18); Bicarbonate 20 mmol/L (21-32); Bilirubin Direct 0.2 mg/dL (0-0.2); Bilirubin Total 0.7 mg/dL (0.2-1.0); Glucose Level 110 mg/dL (74-106); Magnesium 2.2 mg/dL (1.8-2.4); NT PRO-BNP 171 pg/mL (<450); Potassium 3.6 mmol/L (3.5-5.1); Protein, Total 8.5 g/dL (6.4-8.2); Sodium Level 136 mmol/L (136-145); Troponin (Emerg Dept Use Only) < 0.02 ng/mL (0.0-0.045)
[2019-08-03 22:39] LABS: Urine Bacteria 20-50 /HPF (<20); Urine Culture Reflex Order REFLEXED; Urine RBC <5 /HPF (NONE SEEN); Urine Urothelial Cells <5 /HPF (NONE SEEN)
--- NOTE | 2019-08-03 22:43 | RAD REPORT ---
EXAM DESCRIPTION: Massiel Single View08/03/2019 10:11 pm CLINICAL HISTORY: Chest pain COMPARISON: May 2019 FINDINGS: The lungs appear clear of acute infiltrate. The heart is normal size. Pacemaker leads in place IMPRESSION: No acute abnormalities displayed
--- NOTE | 2019-08-03 22:54 | EDPHYS ---
Physician Documentation [facility] Name: Ekta Allison Age: 73 yrs Sex: Female : 1945 Arrival Date: 08/03/2019 Time: 21:21 Bed 20 Private MD: ED Physician Joseph Piper HPI: 08/02 21:43 This 73 yrs old Female presents to ER via Wheelchair with complaints of pm1 Allergic Reaction. 21:43 The patient presents with Dizziness, decreased appetite, and generalized body weakness. pm1 Onset: The symptoms/episode began/occurred 3 day(s) ago. Possible causes: All her medications. Patient believes that she is suffering from a polypharmacy issue. At home the patient or guardian has treated the symptoms with nothing. Severity of symptoms: in the emergency department the symptoms are unchanged. The patient has not experienced similar symptoms in the past. Patient reports that her feels that she is over medications and it is causing her to be off. Historical: - Allergies: 21:55 Iodinated Contrast Media - IV Dye; ca1 21:55 Vicodin; ca1 - Home Meds: 21:55 Amlodipine/valsartan 5-160mg tab 1 tab daily [Active]; pantoprazole 40 mg Oral TbEC 1 ca1 tab once daily [Active]; levothyroxine 25 mcg tab 1 tab once daily [Active]; metronidazole 500 mg Oral tab 1 tab every 8 hours [Active]; topiramate 25 mg oral CSpX 1 cap once daily [Active]; - PMHx: 21:55 Hypertension; Pacemaker; ca1 - PSHx: 21:55 Pacemaker; ca1 - Immunization history:: Adult Immunizations Pneumococcal vaccine is up to date, Flu vaccine is up to date. - Social history:: Smoking status: Patient denies any tobacco usage or history of. ROS: 21:43 Constitutional: Negative for fever, chills, and weight loss, Eyes: Negative for injury, pm1 pain, redness, and discharge, ENT: Negative for injury, pain, and discharge, Neck: Negative for injury, pain, and swelling, Cardiovascular: Negative for chest pain, palpitations, and edema, Respiratory: Negative for shortness of breath, cough, wheezing, and pleuritic chest pain, Abdomen/GI: Negative for abdominal pain, nausea, vomiting, diarrhea, and constipation, Back: Negative for injury and pain, MS/Extremity: Negative for injury and deformity, Skin: Negative for injury, rash, and discoloration. 21:43 Neuro: Positive for dizziness, generalized weakness, Negative for headache, numbness, tingling. Exam: 21:43 Constitutional: This is a well developed, well nourished patient who is awake, alert, pm1 and in no acute distress. Head/Face: Normocephalic, atraumatic. Neck: Trachea midline, no thyromegaly or masses palpated, and no cervical lymphadenopathy. Supple, full range of motion without nuchal rigidity, or vertebral point tenderness. No Meningismus. Chest/axilla: Normal chest wall appearance and motion. Nontender with no deformity. No lesions are appreciated. Cardiovascular: Regular rate and rhythm with a normal S1 and S2. No gallops, murmurs, or rubs. Normal PMI, no JVD. No pulse deficits. Respiratory: Lungs have equal breath sounds bilaterally, clear to auscultation and percussion. No rales, rhonchi or wheezes noted. No increased work of breathing, no retractions or nasal flaring. Abdomen/GI: Soft, non-tender, with normal bowel sounds. No distension or tympany. No guarding or rebound. No evidence of tenderness throughout. Back: No spinal tenderness. No costovertebral tenderness. Full range of motion. Skin: Warm, dry with normal turgor. Normal color with no rashes, no lesions, and no evidence of cellulitis. MS/ Extremity: Pulses equal, no cyanosis. Neurovascular intact. Full, normal range of motion. 21:43 Neuro: Exam negative for acute changes, Orientation: is normal, Mentation: is normal, Motor: is normal, moves all fours. Vital Signs: 21:40 BP 142 / 78; Pulse 94; Resp 17 S; Temp 97.4(TE); Pulse Ox 97% on R/A; Weight 58.97 kg ca1 (R); Height 5 ft. 1 in. (154.94 cm) (R); 22:50 BP 109 / 90; Pulse 71; Resp 18; Pulse Ox 100% on R/A; wh 23:15 BP 113 / 84; Pulse 68; Resp 18; Pulse Ox 99% ; wh 21:40 Body Mass Index 24.56 (58.97 kg, 154.94 cm) ca1 MDM: 21:29 Patient medically screened. pm1 22:52 Data reviewed: vital signs. Data interpreted: Pulse oximetry: on room air is 100 %. pm1 Interpretation: normal. Counseling: I had a detailed discussion with the patient and/or guardian regarding: the historical points, exam findings, and any diagnostic results supporting the discharge/admit diagnosis, lab results, radiology results, the need for outpatient follow up, to return to the emergency department if symptoms worsen or persist or if there are any questions or concerns that arise at home. 08/02 21:43 Order name: Basic Metabolic Panel; Complete Time: 22:37 pm1 08/02 21:43 Order name: CBC with Diff; Complete Time: 22:37 pm1 08/02 21:43 Order name: LFT's; Complete Time: 22:37 pm1 08/02 21:43 Order name: Magnesium; Complete Time: 22:37 pm1 08/02 21:43 Order name: NT PRO-BNP; Complete Time: 22:37 pm1 08/02 21:43 Order name: PT-INR; Complete Time: 22:37 pm1 08/02 21:43 Order name: Troponin (emerg Dept Use Only); Complete Time: 22:37 pm1 08/02 21:43 Order name: XRAY Chest (1 view); Complete Time: 22:49 pm1 08/02 22:33 Order name: Urinalysis W/Microscopic; Complete Time: 23:34 EDWV 08/02 22:39 Order name: Urine Dipstick--Ancillary (enter results) [facility] 08/02 22:45 Order name: Urine Culture [facility] 08/02 21:43 Order name: EKG; Complete Time: 21:45 pm1 08/02 21:43 Order name: Cardiac monitoring; Complete Time: 22:33 pm1 08/02 21:43 Order name: EKG - Nurse/Tech; Complete Time: 22:33 pm08/02 21:43 Order name: IV Saline Lock; Complete Time: 22:33 pm08/02 21:43 Order name: Labs collected and sent; Complete Time: 22:33 pm1 08/02 21:43 Order name: O2 Per Protocol; Complete Time: 22:33 pm08/02 21:43 Order name: O2 Sat Monitoring; Complete Time: 22:33 pm1 08/02 21:43 Order name: Urine Dipstick-Ancillary (obtain specimen); Complete Time: 22:22 pm1 Administered Medications: 23:05 Drug: Rocephin 1 grams Route: IV; Rate: calculated rate; Site: right antecubital; 23:27 Follow up: Response: No adverse reaction; IV Status: Completed infusion Disposition: 23:32 Co-signature as Attending Physician, Joseph Piper MD. enedina Disposition: 08/03/19 22:52 Discharged to Home. Impression: Urinary tract infection, site not specified. - Condition is Stable. - Discharge Instructions: Urinary Tract Infection, Adult. - Prescriptions for Macrobid 100 mg Oral Capsule - take 1 capsule by ORAL route every 12 hours for 10 days; 20 capsule. - Medication Reconciliation Form, Thank You Letter, Antibiotic Education, Prescription Opioid Use form. - Follow up: Emergency Department; When: As needed; Reason: Worsening of condition. Follow up: Private Physician; When: 2 - 3 days; Reason: Recheck today's complaints, Continuance of care, Re-evaluation by your physician. - Problem is new. - Symptoms have improved. Signatures: Dispatcher [employer] EDMS Joseph Piper MD MD pkl Gino Kaye, INTERCEPTOR OPERATOR INTERCEPTOR OPERATOR pm1 Calista Tipton Demetra Us RN RN ca1 Corrections: (The following items were deleted from the chart) 22:33 21:44 UA MICROSCOPIC+U.LAB.BRZ ordered. EDWV EDMS 22:33 22:23 URINALYSIS+U.LAB.BRZ ordered. EDWV EDMS 23:30 22:52 08/03/2019 22:52 Discharged to Home. Impression: Urinary tract infection, site wh not specified. Condition is Stable. Forms are Medication Reconciliation Form, Thank You Letter, Antibiotic Education, Prescription Opioid Use. Follow up: Emergency Department; When: As needed; Reason: Worsening of condition. Follow up: Private Physician; When: 2 - 3 days; Reason: Recheck today's complaints, Continuance of care, Re-evaluation by your physician. Problem is new. Symptoms have improved. pm1
--- NOTE | 2019-08-03 22:54 | ER ---
Nurse's Notes [facility] Name: Ekta Allison Age: 73 yrs Sex: Female : 1945 Arrival Date: 08/03/2019 Time: 21:21 Bed 20 Private MD: Diagnosis: Urinary tract infection, site not specified Presentation: 08/02 21:40 Chief complaint: Patient states: "my thinks I am over medicated. I have been in ca1 these medications for years and he thinks I may need to be off some of it". Pt reports dizziness, decreased appetite and general body weakness x 3 days. Pt states, "I feel heavy, my body feels heavy". Denies cough, congestion, fever, pain. Coronavirus screen: Patient denies fever greater than 100.4F, cough, shortness of breath, or difficulty breathing. Proceed with normal triage process. Ebola Screen: Patient negative for fever greater than or equal to 101.5 degrees Fahrenheit, and additional compatible Ebola Virus Disease symptoms Patient denies exposure to infectious person. Patient denies travel to an Ebola-affected area in the 21 days before illness onset. No symptoms or risks identified at this time. Initial Sepsis Screen: Does the patient meet any 2 criteria? No. Patient's initial sepsis screen is negative. Does the patient have a suspected source of infection? No. Patient's initial sepsis screen is negative. Risk Assessment: Do you want to hurt yourself or someone else? Patient reports no desire to harm self or others. Onset of symptoms was August 03, 2019. 21:40 Method Of Arrival: Wheelchair ca1 21:40 Acuity: VINEET 3 ca1 Historical: - Allergies: 21:55 Iodinated Contrast Media - IV Dye; ca1 21:55 Vicodin; ca1 - Home Meds: 21:55 Amlodipine/valsartan 5-160mg tab 1 tab daily [Active]; pantoprazole 40 mg Oral TbEC 1 ca1 tab once daily [Active]; levothyroxine 25 mcg tab 1 tab once daily [Active]; metronidazole 500 mg Oral tab 1 tab every 8 hours [Active]; topiramate 25 mg oral CSpX 1 cap once daily [Active]; - PMHx: 21:55 Hypertension; Pacemaker; ca1 - PSHx: 21:55 Pacemaker; ca1 - Immunization history:: Adult Immunizations Pneumococcal vaccine is up to date, Flu vaccine is up to date. - Social history:: Smoking status: Patient denies any tobacco usage or history of. Screenin:50 Abuse screen: Denies threats or abuse. Denies injuries from another. Nutritional wh screening: No deficits noted. Tuberculosis screening: No symptoms or risk factors identified. Fall Risk None identified. Assessment: 22:00 General: Appears in no apparent distress. Behavior is calm, cooperative, appropriate wh for age. Pain: Denies pain. Neuro: Level of Consciousness is awake, alert, obeys commands, Oriented to person, place, time, situation, Appropriate for age Combat Control Manager are equal bilaterally Moves all extremities. Gait is steady, Speech is normal, Facial symmetry appears normal, Pupils are PERRLA, Reports weakness generalized. Cardiovascular: Heart tones S1 S2 Rhythm is regular. Respiratory: Airway is patent Respiratory effort is even, unlabored, Respiratory pattern is regular, symmetrical, Breath sounds are clear bilaterally. GI: Abdomen is flat, non-distended, Abd is soft and non tender X 4 quads. : No signs and/or symptoms were reported regarding the genitourinary system. EENT: No signs and/or symptoms were reported regarding the EENT system. Derm: Skin is intact, is healthy with good turgor, Skin is pink, warm \\T\\ dry. normal. Musculoskeletal: Circulation, motion, and sensation intact. 23:27 Reassessment: Patient appears in no apparent distress at this time. No changes from previously documented assessment. Patient and/or family updated on plan of care and expected duration. Pain level reassessed. Patient is alert, oriented x 3, equal unlabored respirations, skin warm/dry/pink. Vital Signs: 21:40 BP 142 / 78; Pulse 94; Resp 17 S; Temp 97.4(TE); Pulse Ox 97% on R/A; Weight 58.97 kg ca1 (R); Height 5 ft. 1 in. (154.94 cm) (R); 22:50 BP 109 / 90; Pulse 71; Resp 18; Pulse Ox 100% on R/A; wh 23:15 BP 113 / 84; Pulse 68; Resp 18; Pulse Ox 99% ; wh 21:40 Body Mass Index 24.56 (58.97 kg, 154.94 cm) ca1 ED Course: 21:21 Patient arrived in ED. ds1 21:25 Habalo, Winsy is Primary Nurse. 21:26 Gino Kaye NP is PHCP. pm1 21:26 Joseph Piper MD is Attending Physician. pm1 21:45 Triage completed. ca1 21:55 Arm band placed on right wrist. ca1 22:00 Inserted saline lock: 20 gauge in right antecubital area, using aseptic technique. Blood collected. By Yaakov Parliamentary Counsel. 22:11 XRAY Chest (1 view) In Process Unspecified. EDMS 22:50 Patient has correct armband on for positive identification. Placed in gown. Bed in low wh position. Call light in reach. Side rails up X 1. Pulse ox on. NIBP on. 23:28 No provider procedures requiring assistance completed. IV discontinued, intact, bleeding controlled, No redness/swelling at site. Administered Medications: 23:05 Drug: Rocephin 1 grams Route: IV; Rate: calculated rate; Site: right antecubital; 23:27 Follow up: Response: No adverse reaction; IV Status: Completed infusion Outcome: 22:52 Discharge ordered by . pm1 23:29 Discharged to home via wheelchair, with family. 23:29 Condition: stable 23:29 Discharge instructions given to patient, family, Instructed on discharge instructions, follow up and referral plans. medication usage, POC Demonstrated understanding of instructions, follow-up care, medications, POC Prescriptions given X 1. 23:30 Patient left the ED. Addendum: 08/06/2019 09:23 Addendum: Culture Results: Positive urine culture. pt was admitted to hospital, is i w currently receiving IV antibiotics Bacteria is resistant to, has intermediate sensitivity, or is not tested against prescribed antibiotics. Report given to GER for further evaluation and then to customer service rep for follow up with patient. Signatures: Dispatcher [employer] [facility] Eli Hay ds1 Malathi Espinosa RN RN Gino Kaye NP INSPECTOR HEATING AND REFRIGERATION pm1 Calista Tipton Demetra Us RN RN ca1
[2019-08-03] MEDS ORDERED: CEFTRIAXONE/SWI 1gm 1 GM/10 ML SYR ONE (23:06)
[2019-08-03 23:24] LABS: Urine Appearance SL CLOUDY; Urine Color YELLOW
[2019-08-03 23:25] LABS: Urine Bilirubin NEGATIVE (NEG); Urine Blood 1+ (NEG); Urine Glucose NEGATIVE (NEG); Urine Protein 2+ (NEG); Urine Specific Gravity 1.025 (1.005-1.030); Urine Urobilinogen 0.2 mg/dL (0.2-1.0); Urine pH 5.5 (5.0-7.0)
[2019-08-03 23:37] VITALS: TEMP 97.4
[2019-08-03 23:40] VITALS: BP 113/84; O2SAT 99
[2019-08-04 01:10] LABS: Urine Blood 2+ (NEG); Urine Glucose NEGATIVE (NEG); Urine Protein 2+ (NEG); Urine Specific Gravity 1.025 (1.005-1.030); Urine pH 5.5 (5.0-7.0)
--- NOTE | 2019-08-04 07:24 | EKG ---
Test Date: 2019-08-03 Test Time: 22:21:43 Panelbeater: TERI MEASUREMENT RESULTS: Intervals: Rate: 83 NJ: 96 QRSD: 90 QT: 358 QTc: 420 [place]: P: 57 NJ: 96 QRS: 6 T: 68 INTERPRETIVE STATEMENTS: Sinus rhythm with short NJ Otherwise normal ECG Compared to ECG 05/17/2019 18:53:32 Short NJ interval now present Myocardial infarct finding no longer present Electronically Signed On 08-04-19 07:24:31 CDT by Thomas Knox
--- NOTE | 2019-08-04 11:22 | EKG ---
Test Date: 2019-08-03 Test Time: 22:23:47 Pcb Design Engineer: TERI MEASUREMENT RESULTS: Intervals: Rate: 80 MS: 94 QRSD: 88 QT: 360 QTc: 415 [place]: P: 57 MS: 94 QRS: 12 T: 70 INTERPRETIVE STATEMENTS: Sinus rhythm with short MS Otherwise normal ECG Compared to ECG 08/03/2019 22:21:43 No significant changes Electronically Signed On 08-04-19 11:21:22 CDT by Thomas Knox
--- NOTE | 2019-08-04 11:22 | EKG ---
Test Date: 2019-08-03 Test Time: 22:28:06 Breaker Mechanic: TERI MEASUREMENT RESULTS: Intervals: Rate: 79 RI: 96 QRSD: 86 QT: 356 QTc: 408 [place]: P: 54 RI: 96 QRS: 8 T: 75 INTERPRETIVE STATEMENTS: Sinus rhythm with short RI Nonspecific ST abnormality Abnormal ECG Compared to ECG 08/03/2019 22:23:47 ST (T wave) deviation now present Electronically Signed On 08-04-19 11:21:21 CDT by Thomas Knox
== END 2019-08-03 23:30 | disposition home or self-care (01) ==
LOC: ER 21:19
DX: N39.0 Urinary tract infection, site not specified (principal); Z88.6 Allergy status to analgesic agent; Z91.09 Other allergy status, other than to drugs and biological substances; I10 Essential (primary) hypertension; Z95.0 Presence of cardiac pacemaker
CPT/HCPCS: 36415; 71045; 80048; 80076; 81001; 81003; 83735; 83880; 84484; 85025; 85610; 87077; 87086; 87088; 87186; 93005; 96365; 99284; J0696

== ENCOUNTER 2019-08-05 19:46 | Inpatient (IN) | payer OTHER ==
--- OUTSIDE RECORDS SUMMARY | 2019-08-05 19:49 | XMS REPORT ---
:1945 [facility] [address] [place] [address] [place] [address] Care Team Providers Name Role Phone Unavailable [...]
--- OUTSIDE RECORDS SUMMARY | 2019-08-05 19:49 | XMS REPORT ---
[...] Status Dosage System Date Date Aspirin 81 [facility] [id number] 81 MG Orally Active 1 tablet Once a day Omeprazole [facility] 41072390770 40 MG Orally Jan 30, Active 1 capsule Once a day 2017 Amlodipine-Quan [facility] 90808972700 5-40 MG Orally Jan 30, Active 1 tablet rvastatin Once a day 2017 Results No Known Results Summary Purpose eClinicalWorks Submission
--- NOTE | 2019-08-05 20:28 | RAD REPORT ---
EXAM DESCRIPTION: Massiel Single View08/05/2019 8:17 pm CLINICAL HISTORY: cough COMPARISON: August 03, 2019 FINDINGS: The lungs appear clear of acute infiltrate. The heart is normal size. Pacemaker leads are in place. IMPRESSION: No acute abnormalities displayed
[2019-08-05] MEDS ORDERED: ACETAMINOPHEN 325 MG TABLET ONE (20:50)
[2019-08-05] MEDS ORDERED: CEFTRIAXONE/SWI 1gm 1 GM/10 ML SYR ONE (20:51)
--- NOTE | 2019-08-05 20:53 | RAD REPORT ---
EXAM DESCRIPTION: CT - Head Brain Wo Cont - 08/05/2019 8:39 pm CLINICAL HISTORY: Syncope COMPARISON: May 2019 TECHNIQUE: Computed axial tomography of the head was obtained. IV contrast was not requested. All CT scans are performed using dose optimization technique as appropriate and may include automated exposure control or mA/KV adjustment according to patient size. FINDINGS: An intracranial bleed is not seen . The ventricles are normal in caliber. No extra-axial fluid collection is noted. Mild low-density areas within periventricular, deep and subcortical white matter likely represent isc hemic changes secondary to small vessel disease. Fluid within the sinuses/ mastoids is not seen. IMPRESSION: No acute intracranial abnormality is seen. If patient's symptoms persist MRI of the bra in would be recommended.
[2019-08-05 20:59] LABS: Absolute Lymphocytes (CBC) 0.5 K/uL (0.7-4.9); Basophils % 0.2 % (0-1.3); Hematocrit 37.1 % (36.0-45.0); Lymphocytes % 5.6 % (15.3-44.8); MPV 9.3 fL (7.6-11.3); RBC Red Blood Cell Count 4.04 M/uL (3.86-4.86)
[2019-08-05 21:01] LABS: Protime INR 1.14
--- NOTE | 2019-08-05 21:10 | RAD REPORT ---
EXAM DESCRIPTION: CT - Stone Protocol - 08/05/2019 8:40 pm CLINICAL HISTORY: Abdominal pain. COMPARISON: Jun 2019 TECHNIQUE: Computed axial tomography of the abdomen pelvis was obtained without oral or IV contrast. Lack of IV and oral contrast limits evaluation of solid organs, bowel, and vessels. Coronal reformat son images were obtained and reviewed. All CT scans are performed using dose optimization technique as appropriate and may include automated exposure control or mA/KV adjustment according to patient size. FINDINGS: Mild left lower lobe consolidation Cholecystectomy A renal calculus is not seen. An ureteral calculus is not noted. A bladder calculus is not present. The liver, spleen, pancreas and adrenals appear grossly normal There is no evidence of diverticulitis. Small hiatal hernia IMPRESSION: Negative for a genitourinary calculus Mild left lower lobe pneumonia
[2019-08-05 21:19] LABS: ALT/SGPT 99 U/L (12-78); AST/SGOT 82 U/L (15-37); Albumin 2.7 g/dL (3.4-5.0); Alkaline Phosphatase 88 U/L (45-117); BUN Blood Urea Nitrogen 19 mg/dL (7-18); Bicarbonate 19 mmol/L (21-32); Bilirubin Direct 0.2 mg/dL (0-0.2); Bilirubin Total 0.6 mg/dL (0.2-1.0); Glucose Level 121 mg/dL (74-106); Lipase 157 U/L (73-393); Magnesium 2.4 mg/dL (1.8-2.4); NT PRO-BNP 279 pg/mL (<450); Potassium 4.1 mmol/L (3.5-5.1); Sodium Level 136 mmol/L (136-145); Troponin (Emerg Dept Use Only) < 0.02 ng/mL (0.0-0.045)
[2019-08-05 21:21] LABS: Blood Morphology Comment NOT SEEN (NOT SEEN); Platelet Estimate ADEQ; Urine White Blood Cell Casts OK
--- NOTE | 2019-08-05 21:32 | ER ---
Nurse's Notes [facility] Name: Ekta Allison Age: 73 yrs Sex: Female : 1945 Arrival Date: 08/05/2019 Time: 19:50 Bed 13 Private MD: Diagnosis: Syncope and collapse;Weakness;Pneumonia due to other specified bacteria-left lower lobe;Volume depletion Presentation: 08/04 19:50 Chief complaint: EMS states: Syncopal event today while getting out of the shower. On ll1 antibiotics for UTI, seen here Sunday. States her appetite is slowly increasing back to normal. Fingerstick 152 for EMS. Initial BP 89/?. Coronavirus screen: Patient denies fever greater than 100.4F, cough, shortness of breath, or difficulty breathing. Proceed with normal triage process. Ebola Screen: Patient denies travel to an Ebola-affected area in the 21 days before illness onset. Initial Sepsis Screen: Does the patient meet any 2 criteria? No. Patient's initial sepsis screen is negative. Does the patient have a suspected source of infection? No. Patient's initial sepsis screen is negative. Risk Assessment: Do you want to hurt yourself or someone else? Patient reports no desire to harm self or others. 19:50 Method Of Arrival: EMS [facility] 19:50 Acuity: VINEET 3 1 19:54 Chief complaint: Patient states: Dizziness. 1 19:59 Onset of symptoms was August 05, 2019. 1 Triage Assessment: 19:57 General: Appears in no apparent distress. Behavior is calm, cooperative. Pain: Denies 1 pain. Neuro: Reports dizziness, a syncopal episode. Cardiovascular: No deficits noted. Respiratory: No deficits noted. Airway is patent Trachea midline Respiratory effort is even, unlabored, Respiratory pattern is regular, symmetrical, Breath sounds are clear bilaterally. Denies cough, labored breathing. GI: No deficits noted. : Reports currently being treated for UTI. Historical: - Allergies: 21:36 Iodinated Contrast Media - IV Dye; ll1 21:36 Vicodin; ll1 - PMHx: 21:36 Hypertension; Pacemaker; ll1 - PSHx: 21:36 Pacemaker; ll1 - Immunization history:: Adult Immunizations up to date. - Social history:: Patient/guardian denies using alcohol, street drugs, tobacco products, Smoking status: Patient denies any tobacco usage or history of. - Family history:: not pertinent. Screenin:56 Abuse screen: Denies threats or abuse. Nutritional screening: No deficits noted. ll1 Tuberculosis screening: No symptoms or risk factors identified. Fall Risk IV access (20 points). Gait- Weak (10 pts.). Mental Status- Overestimates/Forgets Limitations (15 pts.). Total Walsh Fall Scale indicates High Risk Score (45 or more points). Fall prevention measures have been instituted. Side Rails Up X 2 Frequent Obs/Assessments Occuring As available patient and family educated on Fall Prevention Program and Strategies. Assessment: 20:00 General: See triage assessment for further details.. ll1 20:00 Pain: Denies pain. Neuro: Level of Consciousness is awake, alert, Oriented to person, ll1 place, time, situation, Train Gate Attendant are equal bilaterally Moves all extremities. Full function Gait is steady, Speech is normal, Facial symmetry appears normal, Pupils are PERRLA, Reports dizziness. Cardiovascular: Denies chest pain, shortness of breath, Heart tones S1 S2 Capillary refill < 3 seconds Clubbing of nail beds is absent JVD is absent Patient's skin is warm and dry. Pulses are 2+ in right radial artery and left radial artery Rhythm is regular. 21:00 Reassessment: No changes from previously documented assessment. Patient and/or family ll1 updated on plan of care and expected duration. Pain level reassessed. Patient is alert, oriented x 3, equal unlabored respirations, skin warm/dry/pink. 21:12 Reassessment: spouse Yair phone number [phone], . bb 22:00 Reassessment: No changes from previously documented assessment. Patient and/or family ll1 updated on plan of care and expected duration. Pain level reassessed. Patient is alert, oriented x 3, equal unlabored respirations, skin warm/dry/pink. Vital Signs: 19:50 BP 110 / 63; Pulse 77; Resp 18; Temp 100.6; Pulse Ox 96% ; Pain 0/10; ll1 21:00 BP 112 / 55; Pulse 74; Resp 18; Pulse Ox 94% ; Pain 0/10; ll1 21:56 BP 105 / 50; Pulse 74; Resp 17; Temp 98.5; Pulse Ox 95% ; Pain 0/10; ll1 23:15 BP 87 / 45; Pulse 70; Resp 16; Temp 98.7(O); Pulse Ox 92% on R/A; Pain 0/10; ch2 ED Course: 19:50 Patient arrived in ED. ll1 19:50 Hayden Barclay RN is Primary Nurse. ll1 19:54 Triage completed. ll1 19:55 Ihsan Milligan MD is Attending Physician. tere 19:55 Arm band placed on Patient placed in an exam room. ll1 20:00 Patient has correct armband on for positive identification. Bed in low position. Call ll1 light in reach. Side rails up X 1. Pulse ox on. NIBP on. 20:17 XRAY Chest (1 view) In Process Unspecified. EDMS 20:30 Inserted saline lock: 22 gauge in right upper arm, using aseptic technique. Blood ll1 collected. 20:41 CT Head Brain wo Cont In Process Unspecified. EDMS 20:42 CT Stone Protocol In Process Unspecified. EDMS 21:25 Tim Canales MD is Hospitalizing Provider. tere 21:57 Yair that she was being admitted. Visiting hours 6A-7P tomorrow. ll1 23:13 No provider procedures requiring assistance completed. Patient admitted, IV remains in ch2 place. Administered Medications: 21:01 Drug: Tylenol 650 mg Route: PO; ll1 21:54 Follow up: Response: No adverse reaction; Temperature is decreased; RASS: Alert and ll1 Calm (0) 21:54 Drug: Rocephin 1 grams Route: IV; Rate: per protocol; Site: right forearm; ll1 21:55 Follow up: Response: No adverse reaction; RASS: Alert and Calm (0); IV Status: ll1 Completed infusion; IV Intake: 10ml 22:25 Drug: Zithromax 500 mg Route: IVPB; Infused Over: 1 hrs; Site: right forearm; ll1 23:30 Follow up: IV Status: Completed infusion [facility] Point of Care Testin:59 Fingerstick 152 for EMS. ll1 Ranges: Intake: 21:55 IV: 10ml; Total: 10ml. ll1 Outcome: 21:31 Decision to Hospitalize by Provider. tere 23:14 Admitted to Tele accompanied by tech, via wheelchair, room 406, with chart, Report ch2 called to Bekah KIRAN 23:14 Condition: stable 23:14 Instructed on the need for admit. 23:31 Patient left the ED. ch2 Signatures: Dispatcher [employer] Ihsan Tillman MD MD cha Ballard, Brenda RN RN bb Amarilis Voss RN RN ch2 Hayden Barclay RN RN ll1 Corrections: (The following items were deleted from the chart) 21:33 Pain: Denies pain. ll1 ll1 :35 21:33 Neuro: Level of Consciousness is awake, alert, Oriented to person, place, time, ll1 situation, Train Gate Attendant are equal bilaterally Moves all extremities. Full function Gait is steady, Speech is normal, Facial symmetry appears normal, Pupils are PERRLA, Reports dizziness, ll1 :35 21:33 Cardiovascular: Denies chest pain, shortness of breath, Heart tones S1 S2 ll1 Capillary refill < 3 seconds Clubbing of nail beds is absent JVD is absent Patient's skin is warm and dry. Pulses are 2+ in right radial artery and left radial artery Rhythm is regular ll1 21:36 19:55 Allergies: Iodinated Contrast Media - IV Dye; ll1 ll1 21:36 19:55 Allergies: Vicodin; ll1 ll1 21:36 19:55 PMHx: Hypertension; ll1 ll1 21:36 19:55 PMHx: Pacemaker; ll1 ll1 21:36 19:55 PSHx: Pacemaker; ll1 ll1
--- NOTE | 2019-08-05 21:32 | EDPHYS ---
Physician Documentation [facility] Name: Ekta Allison Age: 73 yrs Sex: Female : 1945 Arrival Date: 08/05/2019 Time: 19:50 Bed 13 Private MD: ED Physician Ihsan Milligan HPI: 08/04 20:12 This 73 yrs old Female presents to ER via EMS with complaints of Syncope. tere 20:12 The patient has experienced near-syncope, almost passed out, felt generally weak. tere Onset: The symptoms/episode began/occurred 1 day(s) ago. Duration: This was a single episode. 20:16 Context: the episode(s) was witnessed, by no one. Associated injury: The patient did tere not suffer any apparent associated injury. Associated signs and symptoms: Pertinent positives:. The patient has not experienced similar symptoms in the past. Historical: - Allergies: 21:36 Iodinated Contrast Media - IV Dye; ll1 21:36 Vicodin; ll1 - PMHx: 21:36 Hypertension; Pacemaker; ll1 - PSHx: 21:36 Pacemaker; ll1 - Immunization history:: Adult Immunizations up to date. - Social history:: Patient/guardian denies using alcohol, street drugs, tobacco products, Smoking status: Patient denies any tobacco usage or history of. - Family history:: not pertinent. ROS: 20:16 Eyes: Negative for injury, pain, redness, and discharge, ENT: Negative for injury, tere pain, and discharge, Neck: Negative for injury, pain, and swelling, Cardiovascular: Negative for chest pain, palpitations, and edema, Respiratory: Negative for shortness of breath, cough, wheezing, and pleuritic chest pain, Abdomen/GI: Negative for abdominal pain, nausea, vomiting, diarrhea, and constipation, Back: Negative for injury and pain, : Negative for injury, bleeding, discharge, and swelling, MS/Extremity: Negative for injury and deformity, Skin: Negative for injury, rash, and discoloration, Psych: Negative for depression, anxiety, suicide ideation, homicidal ideation, and hallucinations, Allergy/Immunology: Negative for hives, rash, and allergies, Endocrine: Negative for neck swelling, polydipsia, polyuria, polyphagia, and marked weight changes, Hematologic/Lymphatic: Negative for swollen nodes, abnormal bleeding, and unusual bruising. 20:16 Constitutional: Positive for fever, malaise. 20:16 Neuro: Positive for near syncope. Exam: 20:20 Constitutional: This is a well developed, well nourished patient who is awake, alert, tere and in no acute distress. Head/Face: Normocephalic, atraumatic. Eyes: Pupils equal round and reactive to light, extra-ocular motions intact. Lids and lashes normal. Conjunctiva and sclera are non-icteric and not injected. Cornea within normal limits. Periorbital areas with no swelling, redness, or edema. ENT: Nares patent. No nasal discharge, no septal abnormalities noted. Tympanic membranes are normal and external auditory canals are clear. Oropharynx with no redness, swelling, or masses, exudates, or evidence of obstruction, uvula midline. Mucous membranes moist. Neck: Trachea midline, no thyromegaly or masses palpated, and no cervical lymphadenopathy. Supple, full range of motion without nuchal rigidity, or vertebral point tenderness. No Meningismus. Chest/axilla: Normal chest wall appearance and motion. Nontender with no deformity. No lesions are appreciated. Cardiovascular: Regular rate and rhythm with a normal S1 and S2. No gallops, murmurs, or rubs. Normal PMI, no JVD. No pulse deficits. Respiratory: Lungs have equal breath sounds bilaterally, clear to auscultation and percussion. No rales, rhonchi or wheezes noted. No increased work of breathing, no retractions or nasal flaring. Abdomen/GI: Soft, non-tender, with normal bowel sounds. No distension or tympany. No guarding or rebound. No evidence of tenderness throughout. Back: No spinal tenderness. No costovertebral tenderness. Full range of motion. Female : Normal external genitalia. Skin: Warm, dry with normal turgor. Normal color with no rashes, no lesions, and no evidence of cellulitis. MS/ Extremity: Pulses equal, no cyanosis. Neurovascular intact. Full, normal range of motion. Psych: Awake, alert, with orientation to person, place and time. Behavior, mood, and affect are within normal limits. 20:20 Neuro: Orientation: is normal, appropriate for stated age, no acute changes, Mentation: is normal, Memory: is normal, appropriate for stated age, no acute changes, Cranial nerves: grossly normal, is grossly normal based on the patient's age, no acute changes, Cerebellar function: is grossly normal, is grossly normal based on the patient's age, no acute changes, Motor: strength is normal, Sensation: is normal, no obvious gross deficits, appropriate Gait: not tested. Vital Signs: 19:50 BP 110 / 63; Pulse 77; Resp 18; Temp 100.6; Pulse Ox 96% ; Pain 0/10; ll1 21:00 BP 112 / 55; Pulse 74; Resp 18; Pulse Ox 94% ; Pain 0/10; ll1 21:56 BP 105 / 50; Pulse 74; Resp 17; Temp 98.5; Pulse Ox 95% ; Pain 0/10; ll1 23:15 BP 87 / 45; Pulse 70; Resp 16; Temp 98.7(O); Pulse Ox 92% on R/A; Pain 0/10; ch2 MDM: 19:55 Patient medically screened. [facility] 20:21 Data reviewed: vital signs, nurses notes, lab test result(s), EKG, radiologic studies, [facility] CT scan, plain films. 08/04 19:58 Order name: Basic Metabolic Panel; Complete Time: 21:23 [facility] 08/04 19:58 Order name: CBC with Diff; Complete Time: 21:23 [facility] 08/04 19:58 Order name: LFT's; Complete Time: 21:23 [facility] 08/04 19:58 Order name: Magnesium; Complete Time: 21:23 [facility] 08/04 19:58 Order name: NT PRO-BNP; Complete Time: 21:23 [facility] 08/04 19:58 Order name: PT-INR; Complete Time: 21:23 [facility] 08/04 19:58 Order name: Troponin (emerg Dept Use Only); Complete Time: 21:23 [facility] 08/04 19:58 Order name: Lipase; Complete Time: 21:23 [facility] 08/04 19:58 Order name: Influenza Screen (a \T\ B); Complete Time: 21:23 [facility] 08/04 19:58 Order name: Blood Culture Adult (2) [facility] 08/04 19:58 Order name: Procalcitonin [facility] 08/04 19:58 Order name: Lactate [facility] 08/04 19:58 Order name: Urine Culture [facility] 08/04 20:35 Order name: Strep [facility] 08/04 19:58 Order name: XRAY Chest (1 view); Complete Time: 21:05 [facility] 08/04 19:58 Order name: CT Head Brain wo Cont; Complete Time: 21:05 [facility] 08/04 20:16 Order name: CT Stone Protocol; Complete Time: 21:23 [facility] 08/04 21:21 Order name: CBC Smear Scan; Complete Time: 21:23 [facility] 08/04 21:41 Order name: Throat Culture [facility] 08/04 22:18 Order name: Urine Dipstick--Ancillary (enter results) ar5 08/04 22:24 Order name: Comprehensive Metabolic Panel [facility] 08/04 22:24 Order name: Comprehensive Metabolic Panel [facility] 08/04 22:24 Order name: Lipid Profile [facility] 08/04 22:24 Order name: Lipid Profile [facility] 08/04 22:24 Order name: Magnesium [facility] 08/04 22:24 Order name: Magnesium [facility] 08/04 22:24 Order name: Phosphorus [facility] 08/04 22:24 Order name: Phosphorus [facility] 08/04 19:58 Order name: EKG; Complete Time: 20:00 [facility] 08/04 19:58 Order name: Cardiac monitoring; Complete Time: 22:30 [facility] 08/04 19:58 Order name: EKG - Nurse/Tech; Complete Time: 22:29 [facility] 08/04 19:58 Order name: IV Saline Lock; Complete Time: 20:41 [facility] 08/04 19:58 Order name: Labs collected and sent; Complete Time: 20:41 [facility] 08/04 19:58 Order name: O2 Per Protocol; Complete Time: 20:41 [facility] 08/04 19:58 Order name: O2 Sat Monitoring; Complete Time: 20:41 [facility] 08/04 19:58 Order name: Urine Dipstick-Ancillary (obtain specimen); Complete Time: 22:17 [facility] Administered Medications: 21:01 Drug: Tylenol 650 mg Route: PO; ll1 21:54 Follow up: Response: No adverse reaction; Temperature is decreased; RASS: Alert and ll1 Calm (0) 21:54 Drug: Rocephin 1 grams Route: IV; Rate: per protocol; Site: right forearm; ll1 21:55 Follow up: Response: No adverse reaction; RASS: Alert and Calm (0); IV Status: ll1 Completed infusion; IV Intake: 10ml 22:25 Drug: Zithromax 500 mg Route: IVPB; Infused Over: 1 hrs; Site: right forearm; ll1 23:30 Follow up: IV Status: Completed infusion [facility] Point of Care Testin:59 Fingerstick 152 for EMS. ll1 Ranges: Critical Glucose Levels:Adult <50 mg/dl or >400 mg/dl <40 mg/dl or >180 mg/dl Disposition: 08/05/19 21:31 Hospitalization ordered by Tim Canales for Inpatient Admission. Preliminary diagnosis are Syncope and collapse, Weakness, Pneumonia due to other specified bacteria - left lower lobe, Volume depletion. - Bed requested for Telemetry/MedSurg (Inpatient). - Status is Inpatient Admission. ch2 - Condition is Stable. - Problem is new. - Symptoms have improved. Signatures: Dispatcher [employer] EDMS Ihsan Milligan MD MD cha Garcia, Cindy, RN RN cg Amarilis Voss RN RN ch2 Hayden Barclay RN RN ll1 Corrections: (The following items were deleted from the chart) 21:36 19:55 Allergies: Iodinated Contrast Media - IV Dye; ll1 ll1 21:36 19:55 Allergies: Vicodin; ll1 ll1 21:36 19:55 PMHx: Hypertension; ll1 ll1 21:36 19:55 PMHx: Pacemaker; ll1 ll1 21:36 19:55 PSHx: Pacemaker; ll1 ll1 22:39 21:31 Hospitalization Ordered by Tim Canales MD for Inpatient Admission. Preliminary cg diagnosis is Syncope and collapse; Weakness; Pneumonia due to other specified bacteria - left lower lobe; Volume depletion. Bed requested for Telemetry/MedSurg (Inpatient). Status is Inpatient Admission. Condition is Stable. Problem is new. Symptoms have improved. [facility] 23:31 22:39 08/05/2019 21:31 Hospitalization Ordered by Tim Canales MD for Inpatient ch2 Admission. Preliminary diagnosis is Syncope and collapse; Weakness; Pneumonia due to other specified bacteria - left lower lobe; Volume depletion. Bed requested for Telemetry/MedSurg (Inpatient). Status is Inpatient Admission. Condition is Stable. Problem is new. Symptoms have improved.
[2019-08-05] MEDS ORDERED: AZITHROMYCIN 500 MG INJ IVPB ONE (22:07)
[2019-08-05] MEDS ORDERED: NA CHLORIDE 0.9% 250 ML ONE (22:07)
[2019-08-05] MEDS ORDERED: ONDANSETRON 4 MG/2 ML VIAL IV PRN (22:21)
[2019-08-05] MEDS ORDERED: NA CHLORIDE 0.9% 1,000 ML IV SCH (23:00)
[2019-08-06 00:58] LABS: Urine Blood TRACE (NEG); Urine Glucose NEGATIVE (NEG); Urine Protein 3+ (NEG); Urine Specific Gravity 1.025 (1.005-1.030); Urine pH 5.5 (5.0-7.0)
[2019-08-06 01:02] VITALS: BMI 25.0
[2019-08-06] MEDS ORDERED: TEMAZEPAM 15 MG CAP PO ONE (01:04)
[2019-08-06 06:23] LABS: Absolute Lymphocytes (CBC) 0.6 K/uL (0.7-4.9); Basophils % 0.2 % (0-1.3); Hematocrit 33.8 % (36.0-45.0); Lymphocytes % 7.2 % (15.3-44.8); MPV 9.2 fL (7.6-11.3); RBC Red Blood Cell Count 3.73 M/uL (3.86-4.86)
[2019-08-06 06:32] LABS: Albumin 2.4 g/dL (3.4-5.0); Bilirubin Total 0.4 mg/dL (0.2-1.0); Magnesium 2.2 mg/dL (1.8-2.4); Phosphorus 2.8 mg/dL (2.5-4.9); Potassium 3.7 mmol/L (3.5-5.1); Protein, Total 7.2 g/dL (6.4-8.2)
[2019-08-06] MEDS ORDERED: POTASSIUM CL SA 10 MEQ TAB PO ONE (07:22)
--- NOTE | 2019-08-06 07:43 | P.HP ---
Certification for Inpatient Patient admitted to: Observation With expected LOS: <2 Midnights Patient will require the following post-hospital care: None Practitioner: I am a practitioner with admitting privileges, knowledge of patient current condition, hospital course, and medical plan of care. Services: Services provided to patient in accordance with Admission requirements found in Title 42 Section 412.3 of the Code of Federal Regulations Patient History Date of Service: 08/05/19 Reason for admission: Left lower lobe pneumonia; syncopal episode History of Present Illness: Patient is a 73-year-old female who was with her and came out of the shower when she passed out. She was unresponsive. She woke up and he was kneeling over her. She had was not aware what had happened. She was not sure how long she was out. She has had this happened on a couple of other occasions which she has been told was related to a urinary tract infection. She denies a history of arrhythmias. In the emergency room she had extensive workup including CT of the abdomen which revealed a left lower lobe pneumonia. Patient was admitted to the hospital for further evaluation. Patient denies any fever. She has not had any sick contacts. Her and her have been staying at home alone. She will need evaluation for her syncope and will need to give her antibiotics for the left lower lobe pneumonia. Will also get pulmonary consultation. Allergies codeine Allergy (Verified 08/06/19 01:03) Itching hydrocodone [From Vicodin] Allergy (Verified 08/06/19 01:03) Nausea/Vomiting Iodinated Contrast- Oral a Allergy (Uncoded 08/06/19 01:03) Anaphylaxis Home Medications: Amlodipine Besylate/Valsartan [Amlodipine-Valsartan 5-160 mg] 1 tab PO DAILY Levothyroxine [Synthroid*] 0.025 mg PO DAILY 08/06/19 Pantoprazole [Protonix Tab*] 40 mg PO DAILY 08/06/19 - Past Medical/Surgical History Has patient received pneumonia vaccine in the past: Yes Diabetic: No -: Hypertension -: Pacemaker (2009) -: Cardiac Dysrhythmia -: Cataract -: Hypothyroidism -: GERD -: Shoulder Tendinitis(gets shots) -: Colon cancer -: Explore Lap; organs -: Hernia Repair -: Esophageal varices - Family History Father Medical History: Cancer Notes: - Lung Cancer Mother Medical History: Heart disease Notes: - Stroke - Social History Smoking Status: Never smoker Alcohol use: No CD- Drugs: No Caffeine use: Yes Place of Residence: Home Review of Systems 10-point ROS is otherwise unremarkable Physical Examination - Vital Signs Temperature: 98.9 F Blood Pressure: 138/99 Pulse: 74 Respirations: 17 Pulse Ox (%): 96 - Physical Exam General: Alert, In no apparent distress, Oriented x3 HEENT: Atraumatic, PERRLA, Mucous membr. moist/pink, EOMI, Sclerae nonicteric Neck: Supple, 2+ carotid pulse no bruit, No LAD, Without JVD or thyroid abnormality Respiratory: Clear to auscultation bilaterally, Normal air movement Cardiovascular: Regular rate/rhythm, Normal S1 S2, Systolic murmur Gastrointestinal: Normal bowel sounds, Soft and benign, Non-distended, No tenderness Musculoskeletal: No clubbing, No swelling, No tenderness Integumentary: No rashes Neurological: Normal speech, Normal tone, Sensation intact, Cranial nerves 3-12 intact, Normal affect, Abnormal gait, Abnormal strength Lymphatics: No axilla or inguinal lymphadenopathy - Studies Laboratory Data (last 24 hrs) 08/05/19 19:30: PT 13.4 H, INR 1.14 08/05/19 19:30: WBC 9.3, Hgb 12.8, Hct 37.1, Plt Count 224 D 08/05/19 19:30: Sodium 136, Potassium 4.1, BUN 19 H, Creatinine 1.17, Glucose 121 H, Magnesium 2.4, Total Bilirubin 0.6, AST 82 H, ALT 99 H, Alkaline Phosphatase 88, Lipase 157 Microbiology Data (last 24 hrs): 08/05/19 19:30 Blood - Blood Anaerobic Blood Culture - Final 08/05/19 21:28 Blood - Blood Anaerobic Blood Culture - Final 08/05/19 21:00 Throat Group A Streptococcus Rapid Screen - Final 08/05/19 19:35 Nasopharnyx Influenza Type A Antigen Screen - Final 08/05/19 19:35 Nasopharnyx Influenza Type B Antigen Screen - Final Assessment & Plan - Problems (Diagnosis) (1) Syncope and collapse Current Visit: Yes Status: Acute (2) Left lower lobe pneumonia Current Visit: Yes Status: Acute (3) History of colon cancer Current Visit: Yes Status: Acute (4) History of permanent cardiac pacemaker placement Current Visit: No Status: Chronic (5) Hypertension Current Visit: No Status: Chronic Qualifiers: - Plan 1. Continue with IV antibiotics 2. Awaiting sputum and blood culture 3. Repeat chest x-ray 4. Pulmonary consultation 5. Carotid Doppler and echocardiogram; will also monitor on telemetry for her syncope episode to make sure patient is not having any arrhythmias 6. Albuterol inhaler if dyspnea or wheezing 7. O2 per protocol 8. Continue with gentle hydration 9. Repeat labs including CBC and renal function in a.m. 10. GI and DVT prophylaxis Discharge Plan: Home Plan to discharge in: 48 Hours - Advance Directives Does patient have a Living Will: No Does patient have a Durable POA for Healthcare: No - Code Status/Comfort Care Code Status Assessed: Yes Code Status: Full Code Critical Care: No Time Spent Managing PTS Care (In Minutes): 45
[2019-08-06] MEDS ORDERED: NA CHLORIDE 0.9% 1,000 ML IV SCH (08:00)
[2019-08-06] MEDS ORDERED: AZITHROMYCIN IV 500 MG in NA CHLORIDE 0.9% 250 ML IVPB SCH (09:00)
[2019-08-06] MEDS ORDERED: CEFTRIAXONE/SWI 1gm 1 GM/10 ML SYR IV SCH (09:00)
[2019-08-06] MEDS: ACETAMINOPHEN 500 MG TAB PO PRN ×2 (09:14→21:35)
--- NOTE | 2019-08-06 10:57 | EKG ---
Test Date: 2019-08-05 Test Time: 22:38:04 Returned Goods Repairer: BRYAN MEASUREMENT RESULTS: Intervals: Rate: 64 GA: 90 QRSD: 84 QT: 438 QTc: 451 [place]: P: 38 GA: 90 QRS: -7 T: 55 INTERPRETIVE STATEMENTS: Sinus rhythm with short GA Otherwise normal ECG Compared to ECG 08/03/2019 22:28:06 ST (T wave) deviation no longer present Electronically Signed On 08-06-19 10:56:10 CDT by Thomas Knox
--- NOTE | 2019-08-06 12:29 | P.CNS ---
Date of Consult: 08/06/19 Reason for Consult: Possible pneumonia Chief Complaint: Left lower lobe pneumonia; syncopal episode History of Present Illness: Patient to a [age] really do just passed out and each hr was found unresponsive m/patient was found to be febrile acute cough no recent history of travel or contact with covid 19 patient's. Denies any urinary symptoms This found to have left lower lobe infiltrate Allergies codeine Allergy (Verified 08/06/19 01:03) Itching hydrocodone [From Vicodin] Allergy (Verified 08/06/19 01:03) Nausea/Vomiting Iodinated Contrast- Oral a Allergy (Uncoded 08/06/19 01:03) Anaphylaxis Home Medications: Amlodipine Besylate/Valsartan [Amlodipine-Valsartan 5-160 mg] 1 tab PO DAILY 08/06/19 Levothyroxine [Synthroid*] 0.025 mg PO DAILY 08/06/19 Pantoprazole [Protonix Tab*] 40 mg PO DAILY 08/06/19 - Past Medical/Surgical History Diabetic: No -: Hypertension -: Pacemaker (2009) -: Cardiac Dysrhythmia -: Cataract -: Hypothyroidism -: GERD -: Shoulder Tendinitis(gets shots) -: Colon cancer -: Explore Lap; organs -: Hernia Repair -: Esophageal varices - Family History Father Medical History: Cancer Notes: - Lung Cancer Mother Medical History: Heart disease Notes: - Stroke - Social History Alcohol use: No CD- Drugs: No Caffeine use: Yes Place of Residence: Home Review of Systems 10-point ROS is otherwise unremarkable General: Weakness Respiratory: Cough Physical Examination Temp Pulse Resp BP Pulse Ox 98.2 F 79 24 H 121/47 L 97 08/06/19 10:14 08/06/19 08:00 08/06/19 08:00 08/06/19 08:00 08/06/19 08:00 General: Alert, In no apparent distress, Oriented x3 Respiratory: Clear to auscultation bilaterally Cardiovascular: No edema, Regular rate/rhythm, Normal S1 S2 Gastrointestinal: Normal bowel sounds, Soft and benign Laboratory Data (last 24 hrs) 08/05/19 19:30: PT 13.4 H, INR 1.14 08/05/19 19:30: WBC 9.3, Hgb 12.8, Hct 37.1, Plt Count 224 D 08/05/19 19:30: Sodium 136, Potassium 4.1, BUN 19 H, Creatinine 1.17, Glucose 121 H, Magnesium 2.4, Total Bilirubin 0.6, AST 82 H, ALT 99 H, Alkaline Phosphatase 88, Lipase 157 - Problems (1) Left lower lobe pneumonia Current Visit: Yes Status: Acute Plan: Patient is 73 years of age with a syncopal attack CT scan shows a left lower lobe infiltrate blood pressure is slightly low she is also febrile chemistries reviewed white count is normal does not appear to be actively septic change to p.o. levofloxacin possible discharge tomorrow ambulate patient increase IV fluids Qualifiers: Pneumonia type: due to unspecified organism Qualified Code(s): J18.9 - Pn eumonia, unspecified organism
--- NOTE | 2019-08-06 12:47 | P.PN ---
Subjective Date of Service: 08/06/19 Chief Complaint: Left lower lobe pneumonia; syncopal episode Subjective: No new changes, No C/O voiced, Tolerating diet, Ambulating Review of Systems General: Fever, Chills ENT: Unremarkable Respiratory: Cough, Dry, Shortness of Breath Cardiovascular: Chest Pain (pleuritic), As per HPI, Unremarkable Gastrointestinal: Unremarkable Musculoskeletal: As per HPI Neurological: As per HPI Physical Examination - Vital Signs Temperature: 98.2 F Blood Pressure: 121/47 Pulse: 79 Respirations: 24 Pulse Ox (%): 97 - Physical Exam General: Alert, In no apparent distress HEENT: Atraumatic, PERRLA, EOMI Neck: Supple, JVD not distended Respiratory: Diminished, Crackles/rales, Friction rub Cardiovascular: Regular rate/rhythm, Normal S1 S2 Gastrointestinal: Normal bowel sounds, No tenderness Musculoskeletal: No tenderness Integumentary: No rashes Neurological: Normal speech, Normal tone, Normal affect Lymphatics: No axilla or inguinal lymphadenopathy - Studies Laboratory Data (last 24 hrs) 08/05/19 19:30: PT 13.4 H, INR 1.14 08/05/19 19:30: WBC 9.3, Hgb 12.8, Hct 37.1, Plt Count 224 D 08/05/19 19:30: Sodium 136, Potassium 4.1, BUN 19 H, Creatinine 1.17, Glucose 121 H, Magnesium 2.4, Total Bilirubin 0.6, AST 82 H, ALT 99 H, Alkaline Phosphatase 88, Lipase 157 Microbiology Data (last 24 hrs): 08/05/19 19:30 Blood - Blood Anaerobic Blood Culture - Final 08/05/19 21:28 Blood - Blood Anaerobic Blood Culture - Final 08/05/19 21:00 Throat Group A Streptococcus Rapid Screen - Final 08/05/19 19:35 Nasopharnyx Influenza Type A Antigen Screen - Final 08/05/19 19:35 Nasopharnyx Influenza Type B Antigen Screen - Final Assessment & Plan Physician Review Additional Text: Ms. Allison a 73-year-old female who presented syncopal episode, found to have left lower lobe pneumonia. #Syncope and collapse-likely related to acute infection. CT brain is unremarkable. -monitor on telemetry. -Carotid Doppler and echocardiogram ordered. #Community-acquired pneumonia-now on sepsis given fever and tachypnea. -Elevated procalcitonin, and lactic acid within normal limits. -cultures drawn. -continue IV antibiotics. Duoneb and IS -monitor vital signs closely #History of colon cancer-stable #History of permanent cardiac pacemaker placement- close monitoring. #Hypertension- hold antihypertensive given acute infection. -resume appropriately.
[2019-08-06] MEDS: IPRATROPIUM BROM 0.5MG/2.5ML NEB SCH ×2 (13:12→20:20)
[2019-08-06] MEDS: NA CHLORIDE 0.9% 1,000 ML IV SCH ×2 (13:20→23:33)
[2019-08-06] MEDS ORDERED: ALBUTEROL 2.5 MG/3 ML NEB SOL NEB SCH (14:00)
--- NOTE | 2019-08-06 16:02 | RAD REPORT ---
EXAM DESCRIPTION: - CP - 08/06/2019 3:51 pm CLINICAL HISTORY: Syncope Headache, drowsiness COMPARISON: No comparisons TECHNIQUE: Real-time sonographic evaluation of both carotid systems was performed. Doppler interroga tion was performed with waveform tracing bilaterally. FINDINGS: Normal high resistance waveforms are noted in both external carotid arteries. The common c arotid arteries and internal carotid arteries show normal low resistance waveforms. No significant plaque formation is seen. Peak systolic and end diastolic velocity values and the ICA/ CCA ratios are in the non-hemodynamically significant range. Antegrade flow seen in both vertebral arteries. IMPRESSION: No significant atherosclerotic changes noted. No evidence of a hemodynamically significant stenosis.
[2019-08-07] MEDS: IPRATROPIUM BROM 0.5MG/2.5ML NEB SCH ×4 (03:30→19:40)
[2019-08-07 04:58] LABS: Absolute Lymphocytes (CBC) 1.1 K/uL (0.7-4.9); Basophils % 0.4 % (0-1.3); Hematocrit 33.8 % (36.0-45.0); Lymphocytes % 18.4 % (15.3-44.8); RBC Red Blood Cell Count 3.67 M/uL (3.86-4.86)
[2019-08-07 05:10] LABS: Magnesium 2.3 mg/dL (1.8-2.4); Potassium 3.7 mmol/L (3.5-5.1)
[2019-08-07] MEDS: NA CHLORIDE 0.9% 1,000 ML IV SCH ×2 (08:22→21:07)
[2019-08-07] MEDS ORDERED: levoFLOXacin 500 MG TAB PO SCH (09:00)
[2019-08-07] MEDS ORDERED: POTASSIUM CL SA 10 MEQ TAB PO ONE (09:00)
--- NOTE | 2019-08-07 10:41 | ECHO ---
HEIGHT: 5 ft 1 in WEIGHT: 132 lb 9.6 oz DATE OF STUDY: 08/06/[address]: Tim Canales MD 2-DIMENSIONAL: YES M.MODE: YES DOPPLER: YES COLOR FLOW: YES TDS: NO PORTABLE: NO DEFINITY: NO BUBBLE STUDY: NO DIAGNOSIS: SYNCOPE CARDIAC HISTORY: CATHERIZATION: NO SURGERY: NO PROSTHETIC VALVE: NO PACEMAKER: YES MEASUREMENTS (cm) DIASTOLIC (NORMALS) SYSTOLIC (NORMALS) IVSd 1.0 (0.6-1.2) LA Diam 3.2 (1.9-4.0) LVEF 55% LVIDd 2.7 (3.5-5.7) LVIDs 1.9 (2.0-3.5) %FS 27% LVPWd 1.1 (0.6-1.2) Ao Diam 2.7 (2.0-3.7) 2 DIMENSIONAL ASSESSMENT: RIGHT ATRIUM: NORMAL LEFT ATRIUM: NORMAL RIGHT VENTRICLE: NORMAL LEFT VENTRICLE: NORMAL TRICUSPID VALVE: NORMAL MITRAL VALVE: NORMAL PULMONIC VALVE: NORMAL AORTIC VALVE: NORMAL PERICARDIAL EFFUSION: NONE AORTIC ROOT: NORMAL LEFT VENTRICULAR WALL MOTION: NORMAL. DOPPLER/COLOR FLOW: DECREASED LEFT VENTRICULAR COMPLIANCE. COMMENTS: DECREASED LEFT VENTRICULAR COMPLIANCE. NORMAL EJECTION FRACTION. NORMAL LEFT VENTRICULAR SIZE. NO EFFUSION. TECHNOLOGIST: WAYNE SHELBY
[2019-08-07] MEDS: GUAIFENESIN/DM 5 ML UCUP PO PRN ×2 (11:47→22:12)
[2019-08-07] MEDS: predniSONE 20 MG TAB PO SCH (11:47)
--- NOTE | 2019-08-07 12:26 | RAD REPORT ---
EXAM DESCRIPTION: RAD - Chest Pa And Lat (2 Views) - 08/07/2019 12:10 pm CLINICAL HISTORY: follow upchest pain, shortness of air COMPARISON: Portable August 04 TECHNIQUE: Frontal and lateral views of the chest were obtained. FINDINGS: The lungs are slightly underinflated. Baseline interstitial fibrotic pattern is still pres ent. Linear stranding in the left base is present increased over the comparison. Small pleural effusi ons are suspected. Left-sided pacemaker is in place. Heart size is normal and central vasculature i s within normal limits. No pneumothorax. No acute bone findings seen. Accentuated kyphosis seen at t he thoracolumbar junction. No aortic abnormality. IMPRESSION: Increased interstitial opacification left base suspicious for pneumonia.
[2019-08-07] MEDS ORDERED: CEFEPIME 1 GM/VIAL IV SCH (14:00)
--- NOTE | 2019-08-07 14:06 | P.PN ---
Subjective Date of Service: 08/07/19 Chief Complaint: Left lower lobe pneumonia; syncopal episode Subjective: Worsening (Continues to feel weak. Shortness of breath and cough is quite persistent) Physical Examination - Vital Signs Temperature: 97.1 F Blood Pressure: 110/51 Pulse: 62 Respirations: 17 Pulse Ox (%): 97 - Physical Exam General: Alert, In no apparent distress HEENT: Atraumatic, PERRLA, EOMI Neck: Supple, JVD not distended Respiratory: Diminished, Crackles/rales Cardiovascular: Regular rate/rhythm, Normal S1 S2 Gastrointestinal: Normal bowel sounds, No tenderness Musculoskeletal: No tenderness Integumentary: No rashes Neurological: Normal speech, Normal tone, Normal affect Lymphatics: No axilla or inguinal lymphadenopathy - Studies Laboratory Tests 08/06/19 08/07/19 08/07/19 22:47 04:39 04:39 WBC 6.2 D RBC 3.67 L Hgb 11.5 L Monocytes % 13.4 H Sodium 142 Potassium 3.7 Chloride 114 H BUN 13 Estimated GFR 68 L Calcium 8.2 L Procalcitonin 0.21 Microbiology Data (last 24 hrs): 08/05/19 21:28 Blood - Blood Anaerobic Blood Culture - Final 08/05/19 19:30 Blood - Blood Anaerobic Blood Culture - Final Assessment & Plan Physician Review Additional Text: Ms. Allison a 73-year-old female who presented syncopal episode, found to have left lower lobe pneumonia. #Syncope and collapse-likely related to acute infection. CT brain is unremarkable. -monitor on telemetry. -Carotid Doppler and echocardiogram is unremarkable #Community-acquired pneumonia-slow recovery. Continues to have cough and shortness of breath. Chest x-ray with worsening opacification. -patient's physical examination was significant diminished breath sounds. -Elevated procalcitonin, and lactic acid within normal limits. -cultures drawn. -will switch antibiotics to IV, antitussives, breathing treatments as supplemental oxygen -monitor vital signs closely #History of colon cancer-stable #History of permanent cardiac pacemaker placement- close monitoring. #Hypertension- hold antihypertensive given acute infection. -resume appropriately. PT/OT for muscle strengthening. DVT prophylaxis-SCD Patient is full code. Disposition-possible Dc in a.m. pending clinical improvement.
[2019-08-07] MEDS: AZITHROMYCIN IV 500 MG in NA CHLORIDE 0.9% 250 ML IVPB SCH (16:10)
[2019-08-07] MEDS: CEFEPIME/SWI 1gm 10 ML IVP SCH (16:10)
[2019-08-07] MEDS ORDERED: TEMAZEPAM 15 MG CAP PO ONE (21:33)
[2019-08-08] MEDS: IPRATROPIUM BROM 0.5MG/2.5ML NEB SCH ×3 (02:30→13:50)
[2019-08-08] MEDS: GUAIFENESIN/DM 5 ML UCUP PO PRN (05:29)
[2019-08-08] MEDS: NA CHLORIDE 0.9% 1,000 ML IV SCH (05:29)
[2019-08-08] MEDS ORDERED: LEVOTHYROXINE SOD 0.05 MG TABLET PO SCH (06:30)
[2019-08-08 06:41] LABS: Absolute Lymphocytes (CBC) 0.8 K/uL (0.7-4.9); Basophils % 0.7 % (0-1.3); Hematocrit 31.9 % (36.0-45.0); Lymphocytes % 12.9 % (15.3-44.8); MPV 9.2 fL (7.6-11.3); RBC Red Blood Cell Count 3.49 M/uL (3.86-4.86)
[2019-08-08] MEDS ORDERED: PANTOPRAZOLE 40MG TABLET PO SCH (07:30)
[2019-08-08] MEDS: predniSONE 20 MG TAB PO SCH (09:12)
[2019-08-08] MEDS: CEFEPIME/SWI 1gm 10 ML IVP SCH (10:26)
[2019-08-08] MEDS: AZITHROMYCIN IV 500 MG in NA CHLORIDE 0.9% 250 ML IVPB SCH (10:26)
[2019-08-08] MEDS ORDERED: FLUCONAZOLE 100 MG TAB PO ONE (12:02)
--- NOTE | 2019-08-08 12:10 | P.DS ---
Admission Date: 08/06/19 Discharge Date: 08/09/19 Disposition: ROUTINE DISCHARGE Discharge Condition: GOOD Reason for Admission: Left lower lobe pneumonia; syncopal episode Consultations: Crib Pad Maker Brief History of Present Illness: Admission diagnosis-syncope and collapse Committee acquired pneumonia History of colon cancer History of permanent cardiac pacemaker placement Hypertension Hypothyroid Discharge diagnosis-syncope and collapse Committee acquired pneumonia History of colon cancer History of permanent cardiac pacemaker placement Hypertension Hypothyroid Hospital Course: Ms Allison [id number] female with a history of hypertension who presented to the ER with syncopal episode. Initial evaluation revealed a left lower lobe pneumonia. Patient was initiated on antibiotics, pulmonary toileting and supportive care. She was also evaluated by ad operations coordinator while inpatient, gradually improved and will be discharged on oral anti biotic. She was worked up for syncope including echocardiogram and carotid Doppler. CT brain was unremarkable. Given that BP was low-normal due to acute infection; antihypertensives have been held and she will follow up with PCP in 2-3 days for evaluation and resumption of medication. She had at generalized weakness and underwent physical and occupational therapy. She is currently at her baseline. She will be discharged to follow up with her PCP outpatient. Vital Signs/Physical Exam: Temp Pulse Resp BP Pulse Ox 97.4 F 60 16 127/58 L 98 08/08/19 04:00 08/08/19 04:00 08/08/19 04:00 08/08/19 04:00 08/08/19 04:00 General: Alert, In no apparent distress HEENT: Atraumatic, PERRLA, EOMI Neck: Supple, JVD not distended Respiratory: Clear to auscultation bilaterally, Normal air movement Cardiovascular: Regular rate/rhythm, Normal S1 S2 Gastrointestinal: Normal bowel sounds, No tenderness Musculoskeletal: No tenderness Integumentary: No rashes Neurological: Normal speech, Normal tone, Normal affect Lymphatics: No axilla or inguinal lymphadenopathy Laboratory Data at Discharge: WBC 6.1 K/uL (4.3-10.9) 08/08/19 05:58 Hgb 10.7 g/dL (12.0-15.0) L 08/08/19 05:58 Hct 31.9 % (36.0-45.0) L 08/08/19 05:58 Plt Count 251 K/uL (152-406) 08/08/19 05:58 PT 13.4 SECONDS (9.5-12.5) H 08/05/19 19:30 INR 1.14 08/05/19 19:30 Sodium 144 mmol/L (136-145) 08/08/19 05:58 Potassium 4.0 mmol/L (3.5-5.1) 08/08/19 05:58 BUN 16 mg/dL (7-18) 08/08/19 05:58 Creatinine 0.75 mg/dL (0.55-1.3) 08/08/19 05:58 Glucose 132 mg/dL (74-106) H 08/08/19 05:58 Phosphorus 2.8 mg/dL (2.5-4.9) 08/06/19 05:30 Magnesium 2.3 mg/dL (1.8-2.4) 08/07/19 04:39 Total Bilirubin 0.4 mg/dL (0.2-1.0) 08/06/19 05:30 AST 52 U/L (15-37) H 08/06/19 05:30 ALT 77 U/L (12-78) 08/06/19 05:30 Alkaline Phosphatase 81 U/L (45-117) 08/06/19 05:30 Triglycerides 220 mg/dL (<150) H 08/06/19 05:30 Cholesterol 162 mg/dL (<200) 08/06/19 05:30 HDL Cholesterol 16 mg/dL (40-60) L 08/06/19 05:30 Cholesterol/HDL Ratio 10.13 08/06/19 05:30 Lipase 157 U/L (73-393) 08/05/19 19:30 Home Medications: Amlodipine Besylate/Valsartan [Amlodipine-Valsartan 5-160 mg] 1 tab PO DAILY Levothyroxine [Synthroid*] 0.025 mg PO DAILY 08/06/19 Pantoprazole [Protonix Tab*] 40 mg PO DAILY 08/06/19 Cefdinir [Cefdinir*] 300 mg PO BID #10 cap 08/08/19 Guaif/Dm [Robitussin Dm] 10 ml PO Q6HR PRN #250 ml 08/08/19 predniSONE [Prednisone*] 40 mg PO DAILY #10 tab 08/08/19 New Medications: Cefdinir [Cefdinir*] 300 mg PO BID #10 cap Guaif/Dm [Robitussin Dm] 10 ml PO Q6HR PRN #250 ml PRN Reason: Cough predniSONE [Prednisone*] 40 mg PO DAILY #10 tab Patient Discharge Instructions: Hold antihypertensive until follow up with pcp on sunday08/11/19 for BP check. Continue antibiotics as prescribed. Diet: AHA Activity: Ad casey
[2019-08-08 13:00] VITALS: BP 125/58; TEMP 97.6
[2019-08-08 13:40] VITALS: O2SAT 95
== END 2019-08-08 15:15 | disposition home or self-care (01) | DRG 195 ==
LOC: ER 19:46 → ERHOLD 22:21 → 4TH 23:13 → OBSVTOIN 08-06 13:34
PROVIDERS: ADMIT Hospitalist; ATTEND Hospitalist
DX: J18.9 Pneumonia, unspecified organism (principal); I10 Essential (primary) hypertension; E03.9 Hypothyroidism, unspecified; K21.9 Gastro-esophageal reflux disease without esophagitis; Z95.0 Presence of cardiac pacemaker; Z88.5 Allergy status to narcotic agent; Z91.041 Radiographic dye allergy status; Z79.890 Hormone replacement therapy; Z79.899 Other long term (current) drug therapy; Z85.038 Personal history of other malignant neoplasm of large intestine; Z79.52 Long term (current) use of systemic steroids
CPT/HCPCS: 36415; 70450; 71045; 71046; 74176; 76377; 80048; 80053; 80061; 80076; 81001; 81003; 83605; 83690; 83735; 83880; 84100; 84145; 84484; 85025; 85610; 87040; 87070; 87077; 87081; 87086; 87088; 87186; 87804; 93005; 93306; 93880; 94640; 94760; 96365; 96375; 97116; 97161; 99284; 99285; G0378; J0456; J0692; J0696; J7030; J7512

== ENCOUNTER 2019-12-11 09:09 | Emergency (ER) | payer OTHER ==
--- OUTSIDE RECORDS SUMMARY | 2019-12-11 09:37 | XMS REPORT | Clinical Summary ---
:1945 Author Organization [facility] [employer] Address [address] [place] [address] Care Team Providers Name Role Phone Asked, Pcp Primary Care Provider Unavailable Allergies Active Allergy Reactions Severity Noted Date Comments Iodinated Contrast Media Swelling 06/02/2019 Hydrocodone-Acetaminophen GI Intolerance 06/02/2019 Nausea, vomiting Medications Medication Sig Dispensed Refills Start Date End Date Status aspirin (ECOTRIN) 81 MG Take 81 mg by 0 Active enteric coated tablet mouth daily. amlodipine-valsartan Take 1 tablet by 0 Active (EXFORGE) 5-160 mg per mouth daily. tablet clonIDINE (CATAPRES) 0.1 Take 0.1 mg by 0 Active MG tablet mouth daily as needed for high blood pressure. pantoprazole sodium Take 40 mg by 0 Active (PANTOPRAZOLE ORAL) mouth daily. levothyroxine Take 25 mcg by 0 A ctive (SYNTHROID) 25 mcg mouth daily. tablet Active Problems Not on file Encounters Date Type Specialty Care Team Description 06/02/2019 Surgery Procedural Attar, EP REMOVE REPLA CE Cardiology MD Alanna DEFIBRILLATOR GENERATOR [3326 2 (CPT)] 06/02/2019 Hospital Encounter Procedural Attar, Hypertens ion, Cardiology MD Alanna unspecified typ e after 12/10/2018 Social History Tobacco Use Types Packs/Day Years Used Date Never Smoker Smokeless Tobacco: Never Used Alcohol Use Drinks/Week oz/Week Comments Never Alcohol Habits Answer Date Recorded How often do you have a drink containing alcohol? Never 06/02/2019 How many drinks containing alcohol do you have on a typical Not asked day when you are drinking? How often do you have six or more drinks on one occasion? No t asked Sex Assigned at Date Recorded Not on file Job Start Date Occupation Industry Not on file Not on file Not on file Travel History Travel Start Travel End No recent travel history available. Last Filed Vital Signs Vital Sign Reading Time Taken Comments Blood Pressure 133/63 06/02/2019 7:00 PM STEAM CLEAN MACHINE OPERATOR Pulse 65 06/02/2019 7:00 PM STEAM CLEAN MACHINE OPERATOR Temperature 36.5 C (97.7 F) 06/02/2019 5:00 PM STEAM CLEAN MACHINE OPERATOR Respiratory Rate 22 06/02/2019 7:00 PM STEAM CLEAN MACHINE OPERATOR Oxygen Saturation 96% 06/02/2019 7:00 PM STEAM CLEAN MACHINE OPERATOR Inhaled Oxygen Concentration - - Weight 60.9 kg (134 lb 5 oz) 06/02/2019 12:40 PM STEAM CLEAN MACHINE OPERATOR Height 154.9 cm (5' 1") 06/02/2019 12:40 PM STEAM CLEAN MACHINE OPERATOR Body Mass Index 25.38 06/02/2019 12:40 PM STEAM CLEAN MACHINE OPERATOR Plan of Treatment Not on file Implants Implanted Type Area Treating Machine Operator Device Shelf Model / Identifier Expiration Serial / Date Lot Accolade Mri Pacemaker - [id number] Cardiac N/A: N/A [place] 02/25/2021 [id number] / Implanted: 06/02/2019 at [facility] (Quantity not on file) Pac emaker [employer]- [id number] / Generators [id number] Procedures Procedure Name Priority Date/Time Associated Diagnosis Comme nts EP REMOVE REPLACE Routine 06/02/2019 4:45 PM Hypertension, Re sults for this PACEMAKER GENERATOR STEAM CLEAN MACHINE OPERATOR unspecified type proc edure are in DUAL the results section. HC COMPLETE BLD STAT 06/02/2019 1:30 PM Resul ts for this COUNT W/AUTO DIFF STEAM CLEAN MACHINE OPERATOR procedure are in the results section. ESTIMATED GFR STAT 06/02/2019 12:40 PM Results for this STEAM CLEAN MACHINE OPERATOR procedure are i n the results section. BASIC METABOLIC STAT 06/02/2019 12:40 PM Resul ts for this PANEL STEAM CLEAN MACHINE OPERATOR procedure are i n the results section. after 12/10/2018 Results Electrophysiology procedure (06/02/2019 4:45 PM STEAM CLEAN MACHINE OPERATOR) Specimen Narrative Performed At This result has an attachment that is no t available. After IV antibiotics and local anesthesia, left subclavian pacer pocket HM SYNGO site was opened. The old generator was removed and the pocket was flushed with antibiotic solutaiton. A new dual chamber [employer] ACCOLADE MRI DR COLE-1 was attached to the atrial and ventricular leads appropriately. Pocket was then closed in two subcuticu lar layers and skin was stapled. No complications. Performing Organization Address City/State/Zipcode Phone Number [employer] [address] [place] [address], [place] CBC with platelet and differential (06/02/2019 1:30 PM STEAM CLEAN MACHINE OPERATOR) WBC 9.58 4.50 - 11.00 [facility] k/uL HOSPITAL RBC 4.17 (L) 4.20 - 5.50 [facility] m/uL HOSPITAL HGB 12.9 12.0 - 16.0 [facility] g/dL [facility] HCT 40.1 37.0 - 47.0 % [facility] MCV 96.2 82.0 - 100.0 [facility] MCH 30.9 27.0 - 34.0 pg [facility] MCHC 32.2 31.0 - 37.0 [facility] gdL [facility] RDW - SD 44.5 37.0 - 55.0 fL [facility] MPV 10.8 8.8 - 13.2 fL [facility] Platelet count 242 150 - 400 k/uL [facility] Nucleated RBC 0.00 /100 WBC [facility] Neutrophils 73.7 (H) 39.0 - 69.0 % [facility] Lymphocytes 19.4 (L) 25.0 - 45.0 % [facility] Monocytes 6.2 0.0 - 10.0 % [facility] Eosinophils 0.2 0.0 - 5.0 % [facility] Basophils 0.3 0.0 - 1.0 % [facility] Immature granulocytes 0.2Comment: 0.0 - 1.0 % [facility] "Immature HOSPITAL granulocytes" (promyelocytes , myelocytes, metamyelocytes ) Specimen Blood Performing Organization Address City/State/Zipcode Phone Number [facility] DEPARTMENT OF PATHOLOGY AND [address] [place], [place] [address] [facility] [place] [id number] [place] [address] Estimated GFR (06/02/2019 12:40 PM STEAM CLEAN MACHINE OPERATOR) Estimated GFR 58 (A) mL/min/1.73 [facility] Comment: m2 HOSPITAL Catergory Units Interpretation G1 >=90 Normal or high G2 60-89 Mildly decreased G3a 45-59 Mildly to moderately decreas ed G3b 30-44 Moderately to severely decre ased G4 15-29 Severely decreased G5 <15 Kidney failure The eGFR was calculated using the Chronic Kidney Disea se Epidemiology Collaboration (CKD-EPI) equation. Interpretation is based on recommendations of the National Kidney Foundation-Kidney Disease Outcomes Bg lity Initiative (NKF-KDOQI) published in 2014. Specimen Plasma specimen Performing Organization Address City/[facility]/Zipcode Phone Number [facility] DEPARTMENT OF PATHOLOGY AND [address] [place], [place] [address] [place] [id number] [place] [address] Basic metabolic panel (06/02/2019 12:40 PM STEAM CLEAN MACHINE OPERATOR) Pathologist Sig nature Sodium 143 135 - 148 mEq/L [facility] Potassium 4.2 3.5 - 5.0 mEq/L [facility] Chloride 107 98 - 112 mEq/L [facility] CO2 21 (L) 24 - 31 mEq/L [facility] Anion gap 15@ANIO 7 - 15 mEq/L [facility] BUN 20 8 - 23 mg/dL [facility] Creatinine 0.96 (H) 0.50 - 0.90 mg/dL [facility] Glucose 96 65 - 99 mg/dL [facility] Calcium 9.1 8.8 - 10.2 mg/dL [facility] Specimen Plasma specimen Performing Organization Address City/[facility]/Zipcode Phone Number [facility] DEPARTMENT OF PATHOLOGY AND [address] [place], [place] [address] [facility] [address] [place] [address] after 12/10/2018 Insurance Payer Benefit Plan / Subscriber ID Effective Dates Phone Addre ss Type Group HUMANA HUMANA MCR xxxxxxxxx 2019-Presen [employer] SUPPLEMENT t MEDICARE MEDICARE PART A xxxxxxxxxxx 2008-Present [place], [place] Medicare AND B Advance Directives For more information, please contact: [phone] Type Date Recorded Patient Tool Adjuster Explanati on Advance Directives, Living Will and Medical Power of Restaurant Cashier
--- OUTSIDE RECORDS SUMMARY | 2019-12-11 09:44 | XMS REPORT | Continuity of Care Document ---
:1945 Author Organization Knowable Care Team Providers Name Role Phone Knowable Unavailable Un available Problems Problem Status Onset Classification Date Comments Sourc e Date Reported DX: R10.12=LEFT UPPER Active QUADRANT PAIN/R13. 020 [place] UNK Active 019 [place] DX: R13.10=DYSPHAGIA, Active UNSPECIFIED/K21.9= 019 [place] DX: OTHER ABNORMAL AND Active INCONCLUSIVE FIND 019 [place] Other chest pain 018 9 [place] XRAY Active 018 [place] GASTROGASTRIC FISTULA Active [address] Pain in right knee H 018 8 [place] M25.561/Z96.651 Active 018 [place] Encounter for screening mammogram 018 8 [place] for malignant neoplasm of breast SCREENING Active 018 [place] Age-related osteoporosis without 018 8 [place] current pathological fracture DX: M81.0=AGE-RELATED Active OSTEOPOROSIS WITHO 018 [place] M17.11 Active 017 [place] K31.9 DISEASE OF Active STOMACH AND DUODENUM, 017 [place] U R13.[address] [facility] SCREENING MAMMGORAM Active 016 [place] R05 Active 016 [place] DEHYDRATION Active 016 [place] CHEST , ABDOMINAL Active MASSORAL ONLYPT 016 [place] 599.0 ACUTE LOWER UTI Active 015 [place] ICD 787.20 530.3 / CPT Active [address] [facility] ICD 787.20 530.3 / CPT Active 21821 014 [place] 789.06/787.20 Active 014 [place] [id number] Active 014 [place] DYSPHAGIA / HITAL Active HERNIA / GERD 014 [place] Discharge Diagnosis: Spinal headache 014 4 [place] Discharge Diagnosis: Spinal Blood Patch 014 4 [place] SEVERE HEADACHE Active 014 [place] 724.4 / 723.4 Active 014 [place] 793.80 ABNORMAL Active MAMMOGRAM 014 [place] GE JUNCTION MASS Active 013 [place] 686.50,793.80, Active ABNORMAL MAMMOGRAM 013 [place] Dehydration (disorder) Active Problem [place] 010 0 [facility] [place] Asthenia (finding) Active Problem [facility] [place] 010 0 [facility] [place] Dehydration Active Problem 010 3 [place] Weakness Active Problem 010 3 [place] Leukocytosis(Confirmed Resolved Problem [facility] ) 010 0 [facility] [place] Leukocytosis Active Problem 010 3 [place] White blood cell Active Problem disorder (disorder) 010 4 [place] Leukocytosis(Confirmed Active Problem ) 010 5 [place] Diaphragmatic hernia Resolved Problem [place] (disorder) 010 0 [facility] [place] Hiatal hernia Active Problem 010 3 [place] fundoplication Active Problem [facility] (procedure) 010 0 [facility] [place] Lloyd fundoplication Active Problem 010 3 [place] Chest pain (finding) Active Problem [place] 010 0 [facility] [place] Chest pain Active 08/05/2 Problem 010 3 [place] Acid reflux (finding) Resolved Problem [place] [address] [facility] Backache (finding) Active Problem [facility] [place] 0 [facility] Ordonez's esophagus Resolved Problem [place] (disorder) 0 [facility] Malignant tumor of Active Problem [facility] [place] colon (disorder) 0 Med ical Center,[facility] Cardiac pacemaker in Active Problem [facility] situ (finding) 0 Medic al Center,[facility] Dysphagia (disorder) Resolved Problem [address],[facility] Fistula (disorder) Active Problem esophageal [place] [address] gastric [facility] Center,[facility] Gastroesophageal Active Problem [facility] reflux disease 0 Medic al (disorder) Center,[facility] Hearing loss (finding) Active Problem [address],[facility] History of sick sinus Resolved Problem [facility] syndrome (situation) 0 [facility] Center,[facility] Hypertensive disorder, Active Problem [facility] systemic arterial 0 [place] dical (disorder) Center,[facility] Hypercholesterolemia Active Problem [place] (disorder) 0 [facility] On examination - Active Problem of colon [facility] spasm/tic 0 Medical (context-dependent C enter, category) [place] Osteoarthritis Active Problem bilateral [place] (disorder) 0 [facility] Cardiac pacemaker, Active Problem M H device (physical 8 [place] object) Other specified disorders of bone 8 [place] density and structure, other site CA - Cancer of colon Active Problem 3 [place] Cancer of colon Resolved Problem 3 [place] Cardiac pacemaker, Active Problem M [facility] device 3 [place] GERD - Active Problem Gastro-esophageal 3 [place] reflux disease HTN - Hypertension Active Problem M [facility] 3 [place] Hypertension Resolved Problem 3 [place] Presence of right artificial knee joint 8 [place] Final: Other Screening Mammogram 5 [place] Final: Encounter for screening mammogram 6 [place] for malignant neoplasm of breast ABL MAMMOGRAM NOS Active [facility] [place] ORDONEZ'S ESOPHAGUS Active [facility] [place] OTHER DSRDERS Active MH ESOPHAGUS [place] LUMBOSACRAL NEURITIS Active MH NOS [place] BRACHIAL NEURITIS NOS Active [facility] [place] ESOPHAGEAL REFLUX Active [facility] [place] DYSPHAGIA NOS Active [facility] [place] ABDMNAL PAIN Active MH EPIGASTRIC [place] ABDMNAL MASS Active MH GENERALIZED [place] ESOPHAGEAL STRICTURE Active [facility] [place] 787.20 Active [facility] [place] URIN TRACT INFECTION Active [facility] NOS [place] SCREEN MAMMOGRAM NEC Active [facility] [place] DYSPHAGIA, UNSPECIFIED Active [facility] [place] DIAPHRAGMATIC HERNIA Active MH WITHOUT OBSTRUCTION [place] LOCALIZED SWELLING, Active MH MASS AND LUMP, TRUNK [place] GENERALIZED INTRA-ABD Active MH AND PELVIC SWELLIN [place] ESOPHAGEAL OBSTRUCTION Active [facility] [place] COUGH Active [facility] [place] ANAL SPASM Active [facility] [place] ENCNTR SCREEN Active MAMMOGRAM FOR [place] MALIGNANT NE GASTRO-ESOPHAGEAL Active MH REFLUX DISEASE WITHOUT [place] DISEASE OF STOMACH AND Active MH DUODENUM, UNSPECI [place] 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 [place] UNILATERAL PRIMARY Active M H OSTEOARTHRITIS, RIGHT [place] AGE-RELATED Active MH OSTEOPOROSIS W/O [place] [facility] CURRENT PAT PAIN IN RIGHT KNEE Active M [facility] [place] PRESENCE OF RIGHT Active MH ARTIFICIAL KNEE JOINT [place] OTHER CHEST PAIN Active [place] LEFT UPPER QUADRANT Active MH PAIN [place] Medications Medication Details Route Status Patient Ordering Order Source Instructions Provider Date Sodium Chloride 1,000 mL, Rate: Inactive 0.9% IV 1000 mL 75 ml/hr, 2018 [place] Infuse over: 13.3 hr, Route: IV, Dosing Weight 62.045 kg, Total Volume: 1,000, Start date: 04/08/19 11:26:00 VALIDATION ANALYST, Duration: 30 day, Stop date: 05/08/19 11:25:00 VALIDATION ANALYST, 1.65, m2 levothyroxine 25 25 microgram = Active mcg (0.025 mg) 1 tab, PO, 2019 [place] oral tablet Daily, # 30 tab, 0 Refill(s) omeprazole 40 mg 40 mg = 1 cap, Active oral delayed PO, Daily, # 30 2019 [place] release capsule cap, 0 Refill(s) fentaNYL (ANES) Route: IV, Drug Inactive [facility] form: INJ, 2018 Medical ONCE, Stop Center date: 11/22/17 14:52:00 CDT Oxycodone Notes: (Same No Longer [place] as: Roxicodone) Active 2018 [facility] Naloxone Notes: Same as No Longer [place] as Narcan Active 2017 [facility] Metoprolol Notes: (Same No Longer [place] as: Lopressor) Active 2018 Medical Push over 2 Center minutes Hydralazine Notes: (Same [place] Longer [place] as: Apresoline) Active 2017 Medical Push over 5 Center minutes Labetalol 10 mg, 2 mL, No Longer [place] Route: IVP, Active 2017 Medical Drug form: INJ, Center Q5Min, Dosing Weight 59.574, kg, PRN Elevated BP, Start date: 11/22/17 14:51:00 CDT, Duration: 5 doses or times, Stop date: 11/23/17 0:00:00 CDT Flumazenil Notes: (Same No Longer [place] as: Romazicon) Active 2017 [facility] Ondansetron 4 mg, Route: Inactive [place] IVP, ONCE, 2018 Medical Dosing Weight Center 59.574, kg, PRN Nausea & Vomiting, Start date: 11/22/17 14:51:00 CDT tramadol 50 mg = 1 tab, Active [place] hydrochloride 50 PO, Q6H, PRN 2018 Me dical MG Oral Tablet pain, # 20 tab, C enter 0 Refill(s) succinylcholine Route: IV, Drug Inactive [place] (ANES) form: INJ, 2017 Medical ONCE, Stop Center date: 11/22/17 14:27:00 CDT lidocaine (ANES) Route: IV, Drug Inactive [place] form: INJ, 2018 Medical ONCE, Stop Center date: 11/22/17 14:27:00 CDT rocuronium Route: IV, Drug Inactive [place] (ANES) form: INJ, 2017 Medical ONCE, Stop Center date: 11/22/17 14:27:00 CDT fentaNYL (ANES) Route: IV, Drug Inactive [place] form: INJ, 2017 Medical ONCE, Stop Center date: 11/22/17 14:27:00 CDT propofol (ANES) Route: IV, Drug Inactive [place] form: INJ, 2018 Medical ONCE, Stop Center date: 11/22/17 14:27:00 CDT ceFAZolin (ANES) Route: IV, Drug Inactive [facility] form: INJ, 2018 Medical ONCE, Stop Center date: 11/22/17 14:22:00 CDT Lactated Ringers Route: IV, Inactive [facility] Injection IV Total Volume: 2018 Medic al (ANES) 1000 mL 1,000, Start Cent er date: 11/22/17 13:28:00 CDT, Stop date: 11/22/17 14:28:00 CDT remove patch Notes: Remove No Longer [facility] old patch Active 2018 Medical before Center application of new patch. Ofirmev Notes: Infuse No Longer [facility] over 15 minutes Active 2018 Medical Do not exceed Center 4gm/day of acetaminophen MEDICATION WASTE Product Size: 1000 mg Product Wasted: ___ mg heparin Notes: porcine Inactive [facility] heparin [address] [place] [address] scopolamine Notes: Change Inactive [place] patch every 72 2018 Medical hours (Same Center as: [facility]) ceFAZolin + Notes: (Same No Longer [place] sterile water 20 As: Ancef, Active 2018 [facility] victor hugo mL Kefzol) Center MEDICATION WASTE Product Size: 1000 mg Product Wasted: ___ mg Aspirin 81 MG 81 mg = 1 tab, Active [place] [facility] PO, Daily, # 90 2018 M edical Tablet tab, 3 Center Refill(s) Hemocyte Plus Notes: Same as No Longer H Iron/C/B12/FA/S Active 2016 [place] A Acetaminophen 1 - 2 tab, PO, Active 300 MG / Codeine Q4H, PRN Pain, 2017 [place] Phosphate 60 MG X 14 day, # 60 Oral Tablet tab, 0 [Tylenol with Refill(s) Codeine #4] tramadol 50 mg = 1 tab, Active hydrochloride 50 PO, Q8H, PRN 2017 [place] MG Oral Tablet Pain, X 14 day, # 90 tab, 0 Refill(s) tramadol 50 mg = 1 tab, Inactive hydrochloride 50 PO, Q8H, PRN 2017 [place] MG Oral Tablet Pain, X 14 day, # 42 tab, 0 Refill(s) Acetaminophen 1 - 2 tab, PO, Inactive 300 MG / Codeine Q4H, PRN Pain, 2016 [facility] Phosphate 60 MG X 14 day, # 60 Oral Tablet tab, 0 [Tylenol with Refill(s) Codeine #4] Oxycodone Notes: (Same Inactive Hydrochloride 5 as: Roxicodone) 2016 [facility] MG Oral Tablet amLODIPine 5 mg 5 mg = 1 tab, Active oral tablet PO, Daily, 0 [address] [facility] [address] Refill(s) Losartan Notes: (Same Inactive as: Cozaar) 2016 [facility] Norvasc Notes: (Same Inactive as: Norvasc) 2016 [facility] Tylenol Notes: Do not Inactive exceed [address] [facility] gm/day. (Same as: Tylenol) Roxicodone Notes: (Same Inactive as: Roxicodone) 2016 [facility] Acetaminophen 1 tab, Route: Inactive 325 MG / PO, Drug Form: 2016 [facility] Oxycodone TAB, Dosing Hydrochloride 5 Weight 57.864, MG Oral Tablet kg, Q4H, PRN [Percocet 5/325] Pain Score 1-3, Start date: 03/01/17 8:35:00 CDT, Duration: 30 day, Stop date: 03/31/17 8:34:00 VALIDATION ANALYST Omeprazole 20 mg, Route: Inactive PO, Drug form: 2016 [facility] ECTAB, BID, Dosing Weight 57.864, kg, Start date: 02/28/17 17:00:00 CDT, Duration: 30 day, Stop date: 03/30/17 9:00:00 VALIDATION ANALYST Protonix Notes: Tablet No Longer should not be Active 2016 [facility] chewed or crushed. (Same as: Protonix) Dilaudid 1 mg, 1 mL, No Longer Route: IVP, Active 2016 [facility] Drug form: INJ, Q4H, Dosing Weight 57.864, kg, PRN Pain Score 7-10, Start date: 02/28/17 8:35:00 CDT, Duration: 3 day, Stop date: 03/03/17 8:34:00 CDT Acetaminophen Notes: Same as No Longer H 325 MG / [place] 325-7.5mg Active 2016 [facility] Hydrocodone Do not exceed Bitartrate 7.5 4gm/day of MG Oral Tablet acetaminophen. [[place] 7.5/325] Enoxaparin Notes: (Same No Longer as: Lovenox) Active 2016 [facility] ceFAZolin (SCIP) 1 gm, 100 mL, No Longer Route: IVPB, Active 2016 [facility] Drug form: INJ, Q6H, Dosing Weight 57.864, kg, Start date: 02/27/17 22:00:00 CDT, Duration: 3 doses or times, Stop date: 02/28/17 10:00:00 CDT, ABX Indication: Surgical Prophylaxis Lunesta 3 mg, Route: Inactive PO, Bedtime, 2016 [facility] Dosing Weight 57.864, kg, Start date: 02/27/17 21:00:00 CDT, Duration: 30 day, Stop date: 03/28/17 21:00:00 VALIDATION ANALYST zolpidem Notes: (Same No Longer As: Ambien) Active 2016 [facility] Docusate Notes: (Same No Longer as: Colace) (Do Active 2016 [facility] t Not Crush) Naloxone 0.4 mg, Route: Inactive IVP, Q2MIN, 2016 [facility] Dosing Weight 57.864, kg, PRN Narcotic Reversal, Start date: 02/27/17 12:08:00 CDT, Duration: 8 doses or times, Stop date: Limited # of times Flumazenil 0.2 mg, Route: Inactive IVP, PRN, 2016 [facility] Dosing Weight 57.864, kg, PRN Benzodiazepine Reversal, Initial dose, Start date: 02/27/17 12:08:00 CDT, Duration: 30 day, Stop date: 03/29/17 11:07:00 VALIDATION ANALYST Hydromorphone 0.5 mg, Route: Inactive IVP, Q5Min, 2016 [facility] Dosing Weight 57.864, kg, PRN Pain Score 7-10, Start date: 02/27/17 12:08:00 CDT, Duration: 4 doses or times, Stop date: Limited # of times Fentanyl 25 microgram, Inactive Route: IVP, 2016 [facility] Q5Min, Dosing Weight 57.864, kg, PRN Pain Score 4-6, Priority: Routine, Start date: 02/27/17 12:08:00 CDT, Duration: 4 doses or times, Stop date: Limited # of times Promethazine 6.25 mg, Route: Inactive IVPB, ONCE, 2016 [facility] Dosing Weight 57.864, kg, PRN Nausea & Vomiting, Start date: 02/27/17 12:08:00 CDT Ondansetron 4 mg, Route: Inactive IVP, ONCE, 2016 [facility] Dosing Weight 57.864, kg, PRN Nausea & Vomiting, Start date: 02/27/17 12:08:00 CDT Cefazolin 1 gm, Route: Inactive IVPB, Drug 2016 [facility] form: INJ, Q6H, Dosing Weight 57.864, kg, Start date: 02/27/17 12:00:00 CDT, Duration: 3 doses or times, Stop date: 02/28/17 0:00:00 CDT, ABX Indication: Surgical Prophylaxis Enoxaparin 30 mg, Route: Inactive SUB-Q, Drug 2016 [facility] form: INJ, [id number], Dosing Weight 57.864, kg, Start date: 02/27/17 11:00:00 CDT, Duration: 30 day, Stop date: 03/28/17 23:00:00 VALIDATION ANALYST glycopyrrolate Route: IV, Drug Inactive (ANES) form: INJ, 2016 ONCE, Stop date: 02/27/17 10:49:00 CDT ketOROLAC (ANES) IV, ONCE Inactive 2016 [facility] tranexamic acid Route: IV, Drug Inactive (ANES) form: INJ, 2016 ONCE, Stop date: 02/27/17 10:49:00 CDT ondansetron Route: IV, Drug Inactive (ANES) form: INJ, 2016 ONCE, Stop date: 02/27/17 10:49:00 CDT neostigmine Route: IV, Drug Inactive (ANES) form: INJ, 2016 ONCE, Stop date: 02/27/17 10:49:00 CDT Melatonin Notes: (Same No Longer as: Melatonin) Active 2016 [facility] Hydromorphone 0.3 mg, 0.3 mL, No Longer Route: IVP, Active 2016 [facility] Drug form: INJ, Q4H, Dosing Weight 57.864, kg, PRN Pain Score 7-10, Start date: 02/27/17 10:43:00 CDT, Duration: 30 day, Stop date: 03/29/17 10:42:00 VALIDATION ANALYST Diphenhydramine 12.5 mg, 0.5 No Longer H tab, Route: PO, Active 2016 [facility] t Drug form: TAB, Q6H, Dosing Weight 57.864, kg, PRN Itching, Start date: 02/27/17 10:43:00 CDT, Duration: 30 day, Stop date: 03/29/17 10:42:00 VALIDATION ANALYST Al hydroxide/Mg Notes: No Longer hydroxide/simeth (aluminum Active 2016 [facility] icone 200 mg-200 hydroxide-magne mg-20 mg/5 mL sium oral suspension hyd-simethicone [phone]/5m l 30 ml ud KARINA) Ondansetron Notes: (Same No Longer as: Zofran) 2016 [facility] MEDICATION WASTE Product Size: 4 mg Product Wasted: ___ mg Lactated Ringers 1,000 mL, Rate: No Longer 02/27 1,000 mL 75 ml/hr, Active 2016 [facility] Infuse over: 13.3 hr, Route: IV, Dosing Weight 57.864 kg, Total Volume: 1,000, Start date: 02/27/17 10:43:00 CDT, Duration: 30 day, Stop date: 03/29/17 10:42:00 VALIDATION ANALYST dexamethasone Route: IV, Drug Inactive H (ANES) form: INJ, 2016 ONCE, Stop date: 02/27/17 10:14:00 CDT rocuronium Route: IV, Drug Inactive (ANES) form: INJ, 2016 [facility] ONCE, Stop date: 02/27/17 10:09:00 CDT acetaminophen Route: IV, Drug Inactive H (ANES) form: INJ, 2016 ONCE, Stop date: 02/27/17 10:09:00 CDT ceFAZolin (ANES) Route: IV, Drug Inactive form: INJ, 2016, Stop date: 02/27/17 10:09:00 CDT lidocaine (ANES) Route: IV, Drug Inactive form: INJ, 2016 ONCE, Stop date: 02/27/17 10:09:00 CDT propofol (ANES) Route: IV, Drug Inactive form: INJ, 2016 ONCE, Stop date: 02/27/17 10:09:00 CDT hydromorphone Route: Inactive (ANES) INTRATHECAL, 2016 [facility] Drug form: INJ, ONCE, Stop date: 02/27/17 9:54:00 CDT LR 1000 mL INJ Route: IV, Inactive (ANES) Total Volume: 2016 1,000, Start date: 02/27/17 9:18:00 CDT, Stop date: 02/27/17 10:18:00 CDT Calcium Chloride 1,000 mL, Rate: Inactive 0.0014 MEQ/ML / 25 ml/hr, 2016 [place] Potassium Infuse over: 40 Chloride 0.004 hr, Route: IV, MEQ/ML / Sodium Dosing Weight Chloride 0.103 57.864 kg, MEQ/ML / Sodium Total Volume: Lactate 0.028 1,000, Start MEQ/ML date: 02/27/17 Injectable 8:24:00 CDT, Solution Duration: 30 day, Stop date: 03/29/17 8:23:00 VALIDATION ANALYST ropivacaine Notes: NOT No Longer FOR IV use Active 2016 Ropivacaine 5 mg/mL (49.25 mL) Epinephrine 1 mg/mL (0.5 mL) Clonidine 0.1 mg/mL (0.8 mL) Ketorolac 30 mg/mL (1 mL) Normal Saline 48.45 mL gabapentin 300 mg, Route: Inactive PO, ONCALL, 2016 [facility] Dosing Weight 57.864, kg, Start date: 02/27/17 8:00:00 CDT, Duration: 30 day, Stop date: 03/29/17 6:59:00 VALIDATION ANALYST celecoxib 90 mL/min), Inactive Start date: 2016 [facility] 02/27/17 8:00:00 CDT, Duration: 30 day, Stop date: 03/29/17 6:59:00 VALIDATION ANALYST 0.3 ML 30 mg, SUB-Q, Active Enoxaparin Q12H, X 14 day, 2016 [facility] sodium 100 MG/ML # 28 inj, 0 Prefilled Refill(s) Syringe [Lovenox] Cephalexin 500 500 mg = 1 cap, No Longer MG Oral Capsule PO, QID, X 10 Active [place] [Keflex] day, # 40 cap, 0 Refill(s) Albuterol 0.833 Notes: (Same Inactive MG/ML / as: [place]) 2016 [facility] Ipratropium [place] 0.167 MG/ML Inhalant Solution sodium chloride 500 mL, Rate: Inactive H 0.9% 500 ml INJ 25 ml/hr, 2016 [facility] ast 500 mL Infuse over: 20 hr, Route: IV, Dosing Weight 59.545 kg, Total Volume: 500, Start date: 02/14/17 12:43:00 CDT, Duration: 1 day, Stop date: 02/15/17 12:42:00 CDT Sabino Notes: (Same Inactive as: Sabino) 2016 [facility] MEDICATION WASTE Product Size: 4 mg Product Wasted: ___ mg Albuterol 0.83 2.49 mg, Route: Inactive MG/ML Inhalant NEB, Q20Min, 2016 [place] Solution Dosing Weight 59.091, kg, PRN Wheezing, Priority: STAT, Start date: 08/23/16 14:49:00 CDT, Duration: 30 day, Stop date: 09/22/16 14:48:00 CDT Diphenhydramine 12.5 mg, Route: Inactive IVP, Drug form: 2016 [place] t INJ, Q6H, Dosing Weight 59.091, kg, PRN Itching, Start date: 08/23/16 14:49:00 CDT, Duration: 30 day, Stop date: 09/22/16 14:48:00 CDT Promethazine 6.25 mg, Route: Inactive [facility] IVPB, ONCE, 2016 [facility] Dosing Weight 59.091, kg, PRN Nausea & Vomiting, Start date: 08/23/16 14:49:00 CDT Meperidine 12.5 mg, Route: Inactive 08/23[facility] IVP, Q30Min, 2016 [facility] Dosing Weight 59.091, kg, PRN Other -See Comment, For shivering, Start date: 08/23/16 14:49:00 CDT, Duration: 2 doses or times, Stop date: Limited # of times Ondansetron 4 mg, Route: Inactive [facility] IVP, ONCE, 2016 [facility] Dosing Weight 59.091, kg, PRN Nausea & Vomiting, Start date: 08/23/16 14:49:00 CDT Oxycodone 5 mg, Route: Inactive PO, Drug form: 2016 [place] TAB, Q4H, Dosing Weight 59.091, kg, PRN Pain Score 4-6, Start date: 08/23/16 14:49:00 CDT, Duration: 30 day, Stop date: 09/22/16 14:48:00 CDT esmolol 10 mg, Route: Inactive IVP, Q5Min, 2016 [facility] Dosing Weight 59.091, kg, PRN Other -See Comment, Start date: 08/23/16 14:49:00 CDT, Duration: 5 doses or times, Stop date: Limited # of times Labetalol 10 mg, Route: Inactive IVP, Q5Min, 2016 [facility] Dosing Weight 59.091, kg, PRN Elevated BP, Start date: 08/23/16 14:49:00 CDT, Duration: 5 doses or times, Stop date: Limited # of times Hydralazine 10 mg, Route: Inactive [facility] IVP, Q20Min, 2016 [facility] Dosing Weight 59.091, kg, PRN Elevated BP, Start date: 08/23/16 14:49:00 CDT, Duration: 2 doses or times, Stop date: Limited # of times Flumazenil 0.2 mg, Route: Inactive IVP, PRN, 2016 [facility] Dosing Weight 59.091, kg, PRN Benzodiazepine Reversal, Initial dose, Start date: 08/23/16 14:49:00 CDT, Duration: 30 day, Stop date: 09/22/16 14:48:00 CDT Hydromorphone 0.5 mg, Route: Inactive IVP, Q5Min, 2016 [facility] Dosing Weight 59.091, kg, PRN Pain Score 7-10, Start date: 08/23/16 14:49:00 CDT, Duration: 4 doses or times, Stop date: Limited # of times Calcium Chloride 1,000 mL, Rate: Inactive 0.0014 MEQ/ML / 125 ml/hr, 2016 [facility] Potassium Infuse over: 8 Chloride 0.004 hr, Route: IV, MEQ/ML / Sodium Dosing Weight Chloride 0.103 59.091 kg, MEQ/ML / Sodium Total Volume: Lactate 0.028 1,000, Start MEQ/ML date: 08/23/16 Injectable 14:49:00 CDT, Solution Duration: 30 day, Stop date: 09/22/16 14:48:00 CDT Naloxone 0.4 mg, Route: Inactive IVP, Q2MIN, 2016 [facility] Dosing Weight 59.091, kg, PRN Narcotic Reversal, Start date: 08/23/16 14:49:00 CDT, Duration: 8 doses or times, Stop date: Limited # of times Albuterol 0.833 3 mL, Route: Inactive MG/ML / NEB, Dosing 2016 [facility] Ipratropium Weight 59.091, [place] 0.167 kg, ONCE, STAT, MG/ML Inhalant Start date: Solution 08/23/16 12:45:00 CDT, Stop date: 08/23/16 12:45:00 CDT Calcium Chloride 1,000 mL, Rate: Inactive 0.0014 MEQ/ML / 25 ml/hr, 2016 [facility] Potassium Infuse over: 40 Chloride 0.004 hr, Route: IV, MEQ/ML / Sodium Dosing Weight Chloride 0.103 59.091 kg, MEQ/ML / Sodium Total Volume: Lactate 0.028 1,000, Start MEQ/ML date: 08/23/16 Injectable 12:45:00 CDT, Solution Duration: 30 day, Stop date: 09/22/16 12:44:00 CDT Sodium Chloride 1,000 mL, Rate: Inactive 0.154 MEQ/ML 25 ml/hr, 2016 [facility] Injectable Infuse over: 40 Solution hr, Route: IV, Dosing Weight 60.455 kg, Total Volume: 1,000, Start date: 06/19/16 10:43:00 VALIDATION ANALYST, Duration: 30 day, Stop date: 07/19/16 10:42:00 VALIDATION ANALYST Fish Oil PO, 0 Refill(s) Active 2016 [facility] Sodium Chloride 1,000 mL, Rate: Inactive 0.154 MEQ/ML 25 ml/hr, 2015 [facility] Injectable Infuse over: 40 Solution hr, Route: IV, Dosing Weight 60.511 kg, Total Volume: 1,000, Start date: 02/15/16 9:09:00 CDT, Duration: 1 day, Stop date: 02/16/16 9:08:00 CDT biotin PO, Daily, 0 Active Refill(s) 2015 [facility] Promethazine 6.25 mg, Route: Inactive IVPB, ONCE, 2015 [facility] Dosing Weight 57.727, kg, PRN Nausea & Vomiting, Start date: 09/28/15 13:41:00 CDT Ondansetron 4 mg, Route: Inactive IVP, ONCE, 2015 [facility] Dosing Weight 57.727, kg, PRN Nausea & Vomiting, Start date: 09/28/15 13:41:00 CDT Diphenhydramine 12.5 mg, Route: Inactive IVP, Drug form: 2016 [place], Q6H, Dosing Weight 57.727, kg, PRN Itching, Start date: 09/28/15 13:41:00 CDT, Duration: 30 day, Stop date: 10/28/15 13:40:00 CDT Albuterol 0.83 2.49 mg, Route: Inactive MG/ML Inhalant NEB, Q20Min, 2016 [place] Solution Dosing Weight 57.727, kg, PRN Wheezing, Priority: STAT, Start date: 09/28/15 13:41:00 CDT, Duration: 30 day, Stop date: 10/28/15 13:40:00 CDT Naloxone 0.04 mg, Route: Inactive IVP, Q2MIN, 2015 [facility] Dosing Weight 57.727, kg, PRN Narcotic Reversal, Start date: 09/28/15 13:41:00 CDT, Duration: 8 doses or times, Stop date: Limited # of times Flumazenil 0.2 mg, Route: Inactive IVP, PRN, 2015 [facility] Dosing Weight 57.727, kg, PRN Benzodiazepine Reversal, Initial dose, Start date: 09/28/15 13:41:00 CDT, Duration: 30 day, Stop date: 10/28/15 13:40:00 CDT Sodium Chloride 500 mL, Rate: Inactive H 0.154 MEQ/ML 125 ml/hr, 2015 [facility] Injectable Infuse over: 4 Solution hr, Route: IV, Dosing Weight 57.727 kg, Total Volume: 500, Start date: 09/28/15 13:41:00 CDT, Duration: 30 day, Stop date: 10/28/15 13:40:00 CDT Glucose 50 MG/ML 1,000 mL, Rate: Inactive / Sodium 125 ml/hr, 2015 [facility] Chloride 0.154 Infuse over: 8 MEQ/ML hr, Route: IV, Injectable Dosing Weight Solution 57.727 kg, Total Volume: 1,000, Start date: 09/28/15 13:41:00 CDT, Duration: 30 day, Stop date: 10/28/15 13:40:00 CDT Meperidine 12.5 mg, Route: Inactive IVP, Q30Min, 2015 [facility] Dosing Weight 57.727, kg, PRN Other -See Comment, For shivering, Start date: 09/28/15 13:41:00 CDT, Duration: 2 doses or times, Stop date: Limited # of times Hydromorphone 0.5 mg, Route: Inactive IVP, Q5Min, 2015 [facility] Dosing Weight 57.727, kg, PRN Pain Score 7-10, Start date: 09/28/15 13:41:00 CDT, Duration: 4 doses or times, Stop date: Limited # of times Fentanyl 25 microgram, Inactive Route: IVP, 2015 [facility] Q5Min, Dosing Weight 57.727, kg, PRN Pain Score 4-6, Start date: 09/28/15 13:41:00 CDT, Duration: 4 doses or times, Stop date: Limited # of times Oxycodone 10 mg, Route: Inactive PO, Drug form: 2015 [facility] TAB, Q4H, Dosing Weight 57.727, kg, PRN Pain Score 7-10, Start date: 09/28/15 13:41:00 CDT, Duration: 30 day, Stop date: 10/28/15 13:40:00 CDT ondansetron Route: IV, Drug Inactive (ANES) form: INJ, 2015 [facility] ONCE, Stop date: 09/28/15 13:14:00 CDT propofol (ANES) Route: IV, Drug Inactive form: INJ, 2015 [facility] ONCE, Stop date: 09/28/15 13:09:00 CDT Lactated Ringers Route: IV, Inactive Injection IV Total Volume: 2015 [facility] (ANES) (ANES) 1,000, Start date: 09/28/15 12:10:00 CDT, Stop date: 09/28/15 13:10:00 CDT heparin sodium, Notes: porcine Inactive porcine [address] [facility] UNT/ML Injectable Solution Calcium Chloride 1,000 mL, Rate: Inactive 0.0014 MEQ/ML / 25 ml/hr, 2015 [facility] ast Potassium Infuse over: 40 Chloride 0.004 hr, Route: IV, MEQ/ML / Sodium Dosing Weight Chloride 0.103 57.727 kg, MEQ/ML / Sodium Total Volume: Lactate 0.028 1,000, Start MEQ/ML date: 09/28/15 Injectable 11:04:00 CDT, Solution Duration: 30 day, Stop date: 10/28/15 11:03:00 CDT Sodium Chloride 500 mL, Rate: Inactive H 0.154 MEQ/ML 125 ml/hr, [facility] Injectable Infuse over: 4 Solution hr, Route: IV, Dosing Weight 57.727 kg, Total Volume: 500, Start date: 09/28/15 11:04:00 CDT, Duration: 30 day, Stop date: 10/28/15 11:03:00 CDT Glucose 50 MG/ML 1,000 mL, Rate: Inactive / Sodium 25 ml/hr, 2015 [facility] Chloride 0.154 Infuse over: 40 MEQ/ML hr, Route: IV, Injectable Dosing Weight Solution 57.727 kg, Total Volume: 1,000, Start date: 09/28/15 11:04:00 CDT, Duration: 30 day, Stop date: 10/28/15 11:03:00 CDT Normosol-R 1,000 mL, Rate: Inactive 25 ml/hr, 2015 [facility] Infuse over: 40 hr, Route: IV, Dosing Weight 57.727 kg, Total Volume: 1,000, Start date: 09/28/15 11:04:00 CDT, Duration: 30 day, Stop date: 10/28/15 11:03:00 CDT Unknown Home Refill(s) 0 Active Medication 2015 Vitamin B12 500 500 microgram = Active mcg oral tablet 1 tab, PO, 2015 Daily, # 30 tab, 0 Refill(s) Amlodipine 2.5 2.5 mg = 1 tab, Active H MG Oral Tablet PO, Daily, # 30 2015 [facility] [Norvasc] tab, 0 Refill(s) Protonix Notes: For IV No Longer push Active 2015 reconstitute with 10 ml 0.9% sodium chloride and push over 2 minutes. (Same as: Protonix) Fish Oil 1,000 mg, No Longer Route: PO, Drug Active 2015 form: CAP, Daily, Dosing Weight 55.909, kg, Start date: 07/08/15 9:00:00, Duration: 30 day, Stop date: 08/06/15 9:00:00 Lisinopril Notes: (Same Inactive as: Prinivil, 2015 [facility] Zestril) NURSE - Please NURSE - Please Inactive H bring home med bring home med 2016 [facility] Fish Oil to Fish Oil to Pharmacy for Pharmacy for label label, 1, Drug form: MISC, Route: MISC, TID, 07/07/15 15:00:00, Duration: 30 day, Stop date: 08/06/15 9:00:00 Lactulose 667 Notes: (Same Inactive MG/ML Oral as:Chronulac) [address] [facility] [address] Solution Amoxicillin 50 5 ml, PO, Q12H, Active H MG/ML / X 7 day, # [address] [facility] Clavulanate 12.5 ml, 0 MG/ML Oral Refill(s), Suspension called to [Augmentin] pharmacy Fish Oil 1000 mg 1,000 mg, PO, Active H oral capsule Daily, [address] [facility] Refill(s) Protonix Notes: For IV Inactive push 2015 reconstitute with 10 ml 0.9% sodium chloride and push over 2 minutes. (Same as: Protonix) Fleet Enema 133 mL, Route: Inactive LA, Dosing 2015 [facility] Weight 55.909, kg, ONCE, Start date: 07/07/15 8:54:00, Stop date: 07/07/15 8:54:00 Zosyn Notes: (Same No Longer as: Zosyn) Active 2015 [facility] Dosing based on Piperacillin component pantoprazole Notes: For IV Inactive push 2015 reconstitute with 10 ml 0.9% sodium chloride and push over 2 minutes. (Same as: Protonix) Ondansetron Notes: (Same No Longer as: Zofran) Active 2015 [facility] MEDICATION WASTE Product Size: 4 mg Product Wasted: ___ mg Enoxaparin Notes: (Same No Longer as: Lovenox) Active 2015 [facility] D5W 1/2NS 1,000 1,000 mL, Rate: No Longer mL 125 ml/hr, Active 2015 [facility] Infuse over: 8 hr, Route: IV, Dosing Weight 57.545 kg, Total Volume: 1,000, Start date: 07/06/15 15:57:00, Duration: 30 day, Stop date: 08/05/15 15:56:00 Reglan 10 mg, Route: Inactive IVP, ONCE, 2015 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, kg, Start date: 07/02/15 17:55:00, Stop date: 07/02/15 17:55:00 Dexamethasone 4 mg, Route: Inactive IVP, ONCE, 2015 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, kg, Start date: 07/02/15 17:55:00, Stop date: 07/02/15 17:55:00 Hydralazine 10 mg, Route: Inactive IVP, ONCE, 2015 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, kg, Start date: 07/02/15 16:46:00, Stop date: 07/02/15 16:46:00 ketOROLAC 15 15 mg, Route: Inactive mg/mL injectable IV, Drug form: 2015 [facility] solution INJ, ONCE, Dosing Weight 57.545, kg, Start date: 07/02/15 16:38:00, Stop date: 07/02/15 16:38:00 Acetaminophen 1 tab, Route: Inactive 325 MG / PO, Drug Form: 2015 [place] [facility] TAB, Dosing Bitartrate 10 MG Weight 58.182, Oral Tablet kg, Q6H, PRN [[place] 10/325] Pain, Start date: 07/02/15 16:01:00, Duration: 30 day, Stop date: 08/01/15 16:00:00 Ofirmev or = 50 kg, Inactive Start date: 2015 [facility] 07/02/15 16:01:00 Oxycodone 10 mg, Route: Inactive PO, Drug form: 2015 [facility] TAB, Q4H, Dosing Weight 57.545, kg, PRN Pain Score 7-10, Start date: 07/02/15 16:01:00, Duration: 30 day, Stop date: 08/01/15 16:00:00 Ondansetron 4 mg, Route: Inactive IVP, ONCE, 2015 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, kg, PRN Nausea & Vomiting, Start date: 07/02/15 16:01:00 Fentanyl 50 microgram, Inactive Route: IVP, 2015 [facility] Q5Min, Dosing Weight 57.545, kg, PRN Pain Score 7-10, Start date: 07/02/15 16:01:00, Duration: 2 doses or times, Stop date: Limited # of times Ketorolac 30 mg, Route: Inactive IVP, ONCE, 2015 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, kg, Start date: 07/02/15 16:01:00, Duration: 1 doses or times, Stop date: 07/02/15 16:01:00 Flumazenil 0.2 mg, Route: Inactive IVP, PRN, 2015 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, kg, PRN Benzodiazepine Reversal, Initial dose, Start date: 07/02/15 16:01:00, Duration: 30 day, Stop date: 08/01/15 17:00:00 Hydromorphone 0.5 mg, Route: Inactive IVP, Q5Min, 2015 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, kg, PRN Pain Score 7-10, Start date: 07/02/15 16:01:00, Duration: 4 doses or times, Stop date: Limited # of times Naloxone 0.04 mg, Route: Inactive IVP, Q2MIN, 2015 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, kg, PRN Narcotic Reversal, Start date: 07/02/15 16:01:00, Duration: 8 doses or times, Stop date: Limited # of times Hydralazine Notes: (Same Inactive as: Apresoline) 2015 [facility] [facility] Push over 5 minutes ondansetron Route: IV, Drug Inactive (ANES) form: INJ, 2015 ONCE, Stop date: 07/02/15 15:31:00 propofol (ANES) Route: IV, Drug Inactive form: INJ, 2015 ONCE, Stop date: 07/02/15 15:28:00 rocuronium Route: IV, Drug Inactive (ANES) form: INJ, 2015 ONCE, Stop date: 07/02/15 15:26:00 cefOXitin (ANES) Route: IV, Drug Inactive form: INJ, 2015 [facility] ONCE, Stop date: 07/02/15 15:22:00 Lactated Ringers Route: IV, Inactive Injection IV Total Volume: 2015 [facility] (ANES) (ANES) 1,000, Start date: 07/02/15 14:30:00, Stop date: 07/02/15 15:30:00 Cefoxitin 2 gm, Route: Inactive IVPB, ONCE, 2015 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, Start date: 07/02/15 13:01:00, Stop date: 07/02/15 13:01:00 heparin sodium, Route: SUB-Q, Inactive H porcine 2500 ONCE, Dosing 2015 [place] [facility] UNT/ML Weight 57.545, Injectable kg, Start date: Solution 07/02/15 12:58:00, Stop date: 07/02/15 12:58:00 Calcium Chloride 1,000 mL, Rate: Inactive 0.0014 MEQ/ML / 25 ml/hr, 2015 [facility] Potassium Infuse over: 40 Chloride 0.004 hr, Route: IV, MEQ/ML / Sodium Dosing Weight Chloride 0.103 57.545 kg, MEQ/ML / Sodium Total Volume: Lactate 0.028 1,000, Start MEQ/ML date: 07/02/15 Injectable 12:39:00, Solution Duration: 30 day, Stop date: 08/01/15 12:38:00 Fish Oil 1000 mg 1,000 mg = 1 Active oral capsule cap, PO, Daily, 2016 [facility] 0 Refill(s) omeprazole 20 mg 20 mg = 1 tab, Active oral enteric PO, BID, # 60 2015 [facility] coated tablet tab, 0 Refill(s) Calcium Chloride 1,000 mL, Rate: Inactive 0.0014 MEQ/ML / 25 ml/hr, 2014 [facility] Potassium Infuse over: 40 Chloride 0.004 hr, Route: IV, MEQ/ML / Sodium Dosing Weight Chloride 0.103 58.182 kg, MEQ/ML / Sodium Total Volume: Lactate 0.028 1,000, Start MEQ/ML date: 08/11/14 Injectable 9:33:00, Solution Duration: 30 day, Stop date: 09/10/14 9:32:00 Oxycodone 5 mg, Route: Inactive Hydrochloride 5 PO, Drug form: 2014 [facility] [place] Oral Tablet TAB, Q4H, Dosing Weight 58.182, kg, PRN Pain Score 4-6, Start date: 08/11/14 9:33:00, Duration: 30 day, Stop date: 09/10/14 9:32:00 Cefoxitin 2 gm, Route: Inactive IV, ONCE, 2014 [facility] Dosing Weight 58.182, kg, Start date: 08/11/14 9:30:00, Stop date: 08/11/14 9:30:00 heparin 5,000 unit, Inactive Route: SUB-Q, 2014 [facility] ONCE, Dosing Weight 58.182, kg, Start date: 08/11/14 9:25:00, Stop date: 08/11/14 9:25:00 tramadol 50 mg = 1 tab, Active hydrochloride 50 PO, Q6H, Pain, 2014 [facility] Oral Tablet # 40 tab, 0 Refill(s) pantoprazole 40 40 mg = 1 tab, Active H mg oral enteric PO, BID, # 30 2014 [facility] coated tablet tab, 0 Refill(s) Omeprazole 20 mg, Route: No Longer PO, Drug form: Active 2014 ECTAB, BID, Dosing Weight 62.273, kg, Start date: 05/20/14 9:00:00, Duration: 30 day, Stop date: 06/18/14 17:00:00 Lisinopril Notes: (Same Inactive as: Prinivil, 2014 Zestril) Protonix Notes: Tablet Inactive should not be 2014 chewed or crushed. (Same as: Protonix) Ketorolac [address] [facility] Enoxaparin Notes: (Same No Longer as: Lovenox) Active 2014 [facility] Acetaminophen Notes: Max No Longer acetaminophen Active 2014 4000 mg/day (4 gm/day). (Same as: Tylenol Extra Strength) Phenergan Notes: Do not No Longer give IV push. Active 2014 [facility] (Same as: Phenergan) Ketorolac [address] [facility] Morphine Notes: (Same Inactive as:MORPhine 2014 [facility] Sulfate) Saline Flush Notes: (Same No Longer 0.9% as: BD Active 2014 [facility] Posiflush) Sodium Chloride 1,000 mL, Rate: No Longer 0.154 MEQ/ML 75 ml/hr, Active 2014 [facility] Injectable Infuse over: Solution 13.3 hr, Route: IV, Dosing Weight 60.909 kg, Total Volume: 1,000, Start date: 05/19/14 12:51:00, Duration: 30 day, Stop date: 06/18/14 12:50:00 Ondansetron Notes: (Same No Longer as: Zofran) Active 2014 [facility] Acetaminophen Notes: Do not No Longer exceed [address] [facility] gm/day. (Same as: Tylenol) Morphine 2 mg, Route: Inactive IVP, Q4H, 2014 [facility] Dosing Weight 60.909, kg, PRN Pain Score 4-6, Start date: 05/19/14 12:51:00, Duration: 30 day, Stop date: 06/18/14 12:50:00 Sodium Chloride 500 mL, 500 Inactive 0.154 MEQ/ML ml/hr, Infuse 2014 [facility] Injectable Over: 1 hr, Solution Route: IV, ONCE, Priority: STAT, Dosing Weight 60.909 kg, Start date: 05/19/14 11:48:00, Duration: 1 doses or times, Stop date: 05/19/14 11:48:00 Promethazine 12.5 mg, Route: Inactive IVPB, ONCE, 2014 [facility] Dosing Weight 60.909, kg, Start date: 05/19/14 11:32:00, Stop date: 05/19/14 11:32:00 Hydralazine Notes: (Same No Longer as: Apresoline) Active 2014 [facility] t Push over 5 minutes Acetaminophen 1 tab, Route: Inactive 325 MG / PO, Drug Form: 2014 [facility] [facility] Hydro[place] TAB, Dosing Bitartrate 5 MG Weight 60.909, Oral Tablet kg, Q4H, PRN [[place] 5/325] Pain, Start date: 05/19/14 9:51:00, Duration: 30 day, Stop date: 06/18/14 9:50:00 Acetaminophen 1,000 mg, Inactive Route: IVPB, 2014 [facility] Drug form: INJ, ONCE, Dosing Weight 60.909, kg, PRN Pain Score 1-3, Start date: 05/19/14 9:51:00, Duration: 1 doses or times, Stop date: Limited # of times Ondansetron 4 mg, Route: Inactive IVP, ONCE, 2014 [facility] Dosing Weight 60.909, kg, PRN Nausea & Vomiting, Start date: 05/19/14 9:51:00 Naloxone 0.04 mg, Route: Inactive IVP, Q2MIN, 2014 [facility] Dosing Weight 60.909, kg, PRN Narcotic Reversal, Start date: 05/19/14 9:51:00, Duration: 8 doses or times, Stop date: Limited # of times Meperidine 12.5 mg, Route: Inactive IVP, Q30Min, 2014 [facility] Dosing Weight 60.909, kg, PRN Other -See Comment, For shivering, Start date: 05/19/14 9:51:00, Duration: 2 doses or times, Stop date: Limited # of times Hydromorphone 0.5 mg, Route: Inactive IVP, Q5Min, 2014 [facility] Dosing Weight 60.909, kg, PRN Pain Score 7-10, Start date: 05/19/14 9:51:00, Duration: 4 doses or times, Stop date: Limited # of times Flumazenil 0.2 mg, Route: Inactive IVP, PRN, 2014 [facility] Dosing Weight 60.909, kg, PRN Benzodiazepine Reversal, Initial dose, Start date: 05/19/14 9:51:00, Duration: 30 day, Stop date: 06/18/14 9:50:00 Fentanyl 25 microgram, Inactive Route: IVP, 2014 [facility] Q5Min, Dosing Weight 60.909, kg, PRN Pain Score 4-6, Start date: 05/19/14 9:51:00, Duration: 4 doses or times, Stop date: Limited # of times Ancef 2 gm, Route: Inactive IVPB, ONCE, 2014 [facility] Dosing Weight 60.909, kg, Start date: 05/19/14 8:12:00, Stop date: 05/19/14 8:12:00 heparin, porcine 5,000 unit, Inactive Route: SUB-Q, 2014 [facility] ONCE, Dosing Weight 60.909, kg, Start date: 05/19/14 8:09:00, Stop date: 05/19/14 8:09:00 Calcium Chloride 1,000 mL, Rate: Inactive 0.0014 MEQ/ML / 25 ml/hr, 2014 [facility] ast Potassium Infuse over: 40 Chloride 0.004 hr, Route: IV, MEQ/ML / Sodium Dosing Weight Chloride 0.103 60.909 kg, MEQ/ML / Sodium Total Volume: Lactate 0.028 1,000, Start MEQ/ML date: 05/19/14 Injectable 7:58:00, Solution Duration: 30 day, Stop date: 06/18/14 7:57:00 Sodium Chloride 500 mL, Rate: Inactive H 0.154 MEQ/ML 25 ml/hr, 2013 [facility] Injectable Infuse over: 20 Solution hr, Route: IV, Dosing Weight 60.909 kg, Total Volume: 500, Start date: 04/28/14 7:51:00, Duration: 30 day, Stop date: 05/28/14 7:50:00 Ondansetron 4 mg, Route: Inactive IVP, Drug form: 2013 [place] [facility] INJ, ONCE, Dosing Weight 54.545, kg, Priority: STAT, Start date: 07/09/13 14:12:00, Stop date: 07/09/13 14:12:00 Morphine 6 mg, Route: Inactive IVP, ONCE, 2013 [facility] Dosing Weight 54.545, kg, Start date: 07/09/13 13:38:00, Stop date: 07/09/13 13:38:00 Sodium Chloride 1,000 mL, Rate: Inactive 0.154 MEQ/ML 75 ml/hr, 2013 [facility] Injectable Infuse over: Solution 13.3 hr, Route: IV, Dosing Weight 54.545 kg, Total Volume: 1,000, Priority: STAT, Start date: 07/09/13 13:36:00, Duration: 1 doses or times, Stop date: 07/10/13 2:53:00 Sodium Chloride 1,000 mL, Rate: Inactive 0.9% (Bolus) IV 1,000 ml/hr, 2013 [facility] 1,000 mL Infuse over: 1 hr, Route: IV, Dosing Weight 54.545 kg, Total Volume: 1,000, Priority: STAT, Start date: 07/09/13 13:36:00, Duration: 1 doses or times, Stop date: 07/09/13 14:35:00, Bolus DoseBolus Dose Labetalol 20 mg, 4 mL, Inactive Route: IVP, 2013 [facility] Drug form: INJ, ONCE, Dosing Weight 54.545, kg, Start date: 07/09/13 12:35:00, Stop date: 07/09/13 12:35:00(Same as: Normodyne, Trandate) Push over 2 minutes Give bolus over 2-3 minutes. Ondansetron 4 mg, Route: Inactive IVP, [facility], Dosing Weight 54.545, kg, Priority: STAT, Start date: 07/09/13 11:03:00, Stop date: 07/09/13 11:03:00 Morphine 4 mg, Route: Inactive IVP, ONCE, 2013 [facility] Dosing Weight 54.545, kg, Priority: STAT, Start date: 07/09/13 11:03:00, Stop date: 07/09/13 11:03:00 Sodium Chloride 1,000 mL, Rate: Inactive 0.9% (Bolus) IV 1,000 ml/hr, 2013 [facility] 1,000 mL Infuse over: 1 hr, Route: IV, Dosing Weight 54.545 kg, Total Volume: 1,000, Priority: STAT, Start date: 07/09/13 11:03:00, Duration: 1 doses or times, Stop date: 07/09/13 12:02:00, Bolus DoseBolus Dose Sodium Chloride 1,000 mL, Rate: Inactive 0.154 MEQ/ML 75 ml/hr, 2013 [facility] Injectable Infuse over: Solution 13.3 hr, Route: IV, Dosing Weight 54.545 kg, Total Volume: 1,000, Priority: STAT, Start date: 07/09/13 11:03:00, Duration: 1 doses or times, Stop date: 07/10/13 0:20:00 influenza virus 0.5 ml, Route: Inactive SYSTEM vaccine, IM, [facility], ON[facility], Start date: 02/11/10 23:00:00, Duration: 1 doses or timesSame as: Fluvirin Contains 15 mcg of influenza virus antigen from each of 3 viruses H1N1, H3N2, and 3,11 pneumococcal 0.5 ml, Route: No Longer SYSTEM 23-valent IM, Drug Form: Active [address] vaccine INJ, Start date: 01/14/10 9:00:00, Stop date: 01/14/10 9:00:00 pneumococcal 0.5 ml, Route: No Longer SYSTEM 23-valent IM, Drug Form: Active [address] vaccine INJ, ONCALL, Start date: 02/27/09 23:16:57, Stop date: 03/29/09 23:11:57(Same as: PNU-IMUNE 23) Omeprazole 20 MG (Active) Active [facility] Delayed Release Lisinopril 20 MG (Active) Active [facility] Allergies, Adverse Reactions, Alerts Substance Category Reaction Severity Reaction Status Date Comments S ource type Reported Contrast drug drug Active [facility] allergy allergy Physicia n Ready-Box s MISC Vicodin TABS drug drug Active [facility] allergy allergy Physicia n s iodinated Assertion Drug Active radiocontras allergy [facility] t dyes Vicodin Assertion upset Propensity Active stomach to adverse [facility] reactions to drug Immunizations Immunization Date Site Status Last Updated Comments Sour ce Given influenza virus Left completed [facility] [place] vaccine, 0 deltoid [facility] inactivated [facility] influenza virus completed [facility] [place] vaccine, 0 inactivated pneumococcal Not Given [place] 1[facility] [place] 23-valent 0 Comment: had vaccine<sup>1</s a pneumonia up> vaccine last year. pneumococcal Not Given [place] 1Result [place] 23-valent 0 Comment: had vaccine<sup>1</s a pneumonia up> vaccine last year. pneumococcal [facility] [place] [facility] pneumococcal completed [place] 23-valent 9 vaccine Results Order Name Results Value Reference Date Interpretation Comments Annie rce Range CHEM PANEL B/C Ratio 29 6 - 25 11/[address] CHEM PANEL A/G Ratio 0.8 0.7 - 1.6 11/[address] CHEM PANEL Globulin 4.2 2.7 - 4.2 11/22 [facility]2017 [facility] CHEM PANEL AGAP 10.0 10.0 - 11/22 [facility] 20.0 [facility] CHEM PANEL eGFR 58 11/22 Result Comment: The Medical eGFR is Center calculated using the CKD-EPI formula. In most young, healthy individuals the eGFR will be >90 mL/min/1.73m2 . The eGFR declines with age. An eGFR of 60-89 may be normal in some populations, particularly the elderly, for whom the CKD-EPI formula has not been extensively validated. Use of the eGFR is not recommended in the following populations:< br/>
Sade viduals with unstable creatinine concentration s, including patients and those with serious co-morbid conditions.<b r/>
Patie nts with extremes in muscle mass or diet.

The data above are obtained from the National Kidney Disease Education Program (NKDEP) which additionally recommends that when the eGFR is used in patients with extremes of body mass index for purposes of drug dosing, the eGFR should be multiplied by the estimated BMI. CHEM PANEL Glucose Lvl 95 70 - 99 11/22 [facility] [address] [place] [address] CHEM PANEL Bili Total 0.5 0.2 - 1.3 11/[address] CHEM PANEL AST 11 0 - 37 11/22 [facility] [place] [facility] CHEM PANEL Alk Phos 80 39 - 136 11/22 [place] [facility] CHEM PANEL Albumin Lvl 3.5 3.5 - 5.0 11/22 [place] [facility] CHEM PANEL Total 7.7 6.4 - 8.4 11/22 [facility] Protein [facility] CHEM PANEL Potassium 4.0 3.5 - 5.1 11/22 [place] L[place] /2017 [facility] CHEM PANEL Sodium Lvl 142 135 - 145 11/22 [place] [facility] CHEM PANEL ALT 24 0 - 65 11/22 [place] [facility] CHEM PANEL Creatinine 0.97 0.50 - 07 [place] Lvl 1.40 /2017 [facility] CHEM PANEL CO2 26 24 - 32 11/22 [facility] CHEM PANEL Chloride Lvl 110 95 - 109 11/22 [place] [facility] CHEM PANEL Calcium Lvl 8.6 8.5 - 10.5 11/22 [place] [facility] CHEM PANEL BUN 28 7 - 22 11/22 [place] [facility] HEMATOLOGY Monocytes # 0.3 0.0 - 0.8 11/22 [place] [facility] HEMATOLOGY Monocytes 5.0 2.0 - 12.0 11/22 [facility] HEMATOLOGY Eosinophils 0.3 0.0 - 4.0 11/22 [place] [facility] HEMATOLOGY Basophils 0.4 0.0 - 1.0 11/22 [facility] HEMATOLOGY Segs-Bands # 3.8 1.5 - 8.1 11/22 [place] [facility] HEMATOLOGY Lymphocytes 2.3 1.0 - 5.5 11/22 [place] # [facility] HEMATOLOGY RBC Morph Normal 11/22 [facility] (11/22/17 10:10 AM) [facility] HEMATOLOGY Plt Morph Normal 11/22 [facility] (11/22/17 10:10 AM) [facility] HEMATOLOGY Segs 58.7 45.0 - 11/22 [place] 75.0 [facility] HEMATOLOGY Lymphocytes 35.6 20.0 - 11/22 [place] 40.0 [facility] HEMATOLOGY MCHC 34.5 32.0 - 11/22 [place] 36.0 [facility] HEMATOLOGY MCH 31.2 27.0 - 11/22 [place] 31.0 [facility] HEMATOLOGY MCV 90.6 80.0 - 07 [facility] 98.0 /2017 [facility] HEMATOLOGY Hct 36.4 36.0 - 11/22 48.0 [facility] HEMATOLOGY Hgb 12.5 12.0 - 11/22 16.0 [facility] HEMATOLOGY MPV 9.4 7.4 - 10.4 11/22 [facility] HEMATOLOGY Platelet 190 133 - 450 11/22 [facility] HEMATOLOGY RDW 13.0 11.5 - 11/22 14. [facility] HEMATOLOGY RBC 4.02 4.20 - 11/22 [facility] 5.40 [facility] HEMATOLOGY WBC 6.5 3.7 - 10.4 11/22 [facility] HEMATOLOGY Segs 77.8 45.0 - 03/01 75.0 [facility] HEMATOLOGY Lymphocytes 12.1 20.0 - 03/01 40.0 [facility] HEMATOLOGY Monocytes # 0.9 0.0 - 0.8 03/01 [facility] HEMATOLOGY Lymphocytes 1.2 1.0 - 5.5 03/01 # /2016 [facility] HEMATOLOGY Segs-Bands # 7.4 1.5 - 8.1 03/01 [facility] HEMATOLOGY Basophils 0.1 0.0 - 1.0 03/01 [facility] HEMATOLOGY Monocytes 9.9 2.0 - 12.0 03/01 [facility] HEMATOLOGY Eosinophils 0.1 0.0 - 4.0 03/01 [facility] HEMATOLOGY Platelet 147 133 - 450 03/01 [facility] HEMATOLOGY MPV 9.7 7.4 - 10.4 03/01 [facility] HEMATOLOGY RDW 13.0 11.5 - 03/01 14. [facility] HEMATOLOGY MCH 32.2 27.0 - 03/01 31.0 /2016 [facility] HEMATOLOGY MCHC 34.7 32.0 - 03/01 36.0 /2017 [facility] HEMATOLOGY Hct 28.9 36.0 - 03/01 48.0 /2016 [facility] HEMATOLOGY Hgb 10.1 12.0 - 03/01 16.0 /2016 [facility] HEMATOLOGY RBC 3.12 4.20 - 03/01 5.40 [facility] HEMATOLOGY WBC 9.5 3.7 - 10.4 03/01 [facility] HEMATOLOGY MCV 92.6 80.0 - 10 MH 98.0 /2017 [facility] HEMATOLOGY Segs-Bands # 10.6 1.5 - 8.1 02/28 MH /2016 [facility] HEMATOLOGY Monocytes # 0.9 0.0 - 0.8 02/28 MH /2016 [facility] HEMATOLOGY Lymphocytes 1.3 1.0 - 5.5 02/28 MH # /2017 [facility] HEMATOLOGY Segs 82.7 45.0 - 02/28 MH 75.0 /2017 [facility] HEMATOLOGY Monocytes 7.3 2.0 - 12.0 02/28 MH /2016 [facility] HEMATOLOGY Lymphocytes 10.0 20.0 - 02/28 MH 40.0 /2016 [facility] HEMATOLOGY RDW 12.8 11.5 - 02/28 MH 14.5 /2016 [facility] HEMATOLOGY MPV 9.0 7.4 - 10.4 02/28 /2016 [facility] HEMATOLOGY Platelet 161 133 - 450 02/28 /2016 [facility] HEMATOLOGY WBC 12.8 3.7 - 10.4 02/28 /2016 [facility] HEMATOLOGY Hgb 10.4 12.0 - 02/[address] [facility] HEMATOLOGY RBC 3.26 4.20 - 02/28 MH 5.40 /2016 [facility] HEMATOLOGY Hct 30.0 36.0 - 02/28 MH 48.0 /2017 [facility] HEMATOLOGY MCV 92.3 80.0 - 02/28 MH 98.0 /2016 [facility] HEMATOLOGY MCH 31.8 27.0 - 02/28 MH 31.0 /2016 [facility] HEMATOLOGY MCHC 34.5 32.0 - 02/28 MH 36.0 /2016 [facility] BLOOD BANK ABO/Rh O POS 02/22 RESULTS /2016 [facility] BLOOD BANK Antibody Negative 02/22 RESULTS Scrn (02/22/17 1:16 PM) /2016 [facility] ELECTROLYT AGAP 14.8 10.0 - 02/[address] [facility] ELECTROLYT eGFR 41 02/22 Result ES Comment: The [facility] eGFR is calculated using the CKD-EPI formula. In most young, healthy individuals the eGFR will be >90 mL/min/1.73m2 . The eGFR declines with age. An eGFR of 60-89 may be normal in some populations, particularly the elderly, for whom the CKD-EPI formula has not been extensively validated. Use of the eGFR is not recommended in the following populations:< br/>
Sade viduals with unstable creatinine concentration s, including patients and those with serious co-morbid conditions.<b r/>
Patie nts with extremes in muscle mass or diet.

The data above are obtained from the National Kidney Disease Education Program (NKDEP) which additionally recommends that when the eGFR is used in patients with extremes of body mass index for purposes of drug dosing, the eGFR should be multiplied by the estimated BMI. ELECTROLYT BUN 32 7 - 22 02/[address] [facility] ELECTROLYT Glucose Lvl 122 70 - 99 02/[address] [facility] ELECTROLYT Calcium Lvl 9.3 8.5 - 10.5 02/22 [facility] ELECTROLYT Potassium 4.8 3.5 - 5.1 02/[address] [facility] ELECTROLYT Sodium Lvl 142 135 - 145 02/22 [facility] ELECTROLYT Creatinine 1.30 0.50 - 02/22 MH ES Lvl 1.40 [facility] ELECTROLYT CO2 26 24 - 32 02/22 [facility] ELECTROLYT Chloride Lvl 106 95 - 109 02/22 [facility] HEMATOLOGY PTT 26.5 22.9 - 02/22 MH 35.8 /2016 [facility] HEMATOLOGY PT 13.1 12.0 - 02/[address] [facility] HEMATOLOGY INR 0.97 0.85 - 02/22 MH 1.17 /2016 [facility] HEMATOLOGY RDW 13.2 11.5 - 02/22 MH 14.5 /2016 [facility] HEMATOLOGY MCHC 34.5 32.0 - 02/22 MH 36.0 /2016 [facility] HEMATOLOGY MCH 32.0 27.0 - 02/22 MH 31.0 /2016 [facility] HEMATOLOGY MPV 9.1 7.4 - 10.4 02/22 [facility] HEMATOLOGY Platelet 239 133 - 450 02/22 [facility] HEMATOLOGY WBC 8.5 3.7 - 10.4 02/22 [facility] HEMATOLOGY RBC 4.70 4.20 - 02/22 MH 5.40 /2016 [facility] HEMATOLOGY Hgb 15.0 12.0 - 02/[address] [facility] HEMATOLOGY MCV 92.7 80.0 - 02/22 MH 98.0 /2017 [facility] HEMATOLOGY Hct 43.6 36.0 - 02/[address] [facility] HEMATOLOGY Segs-Bands # 5.8 1.5 - 8.1 02/22 [facility] HEMATOLOGY Lymphocytes 2.2 1.0 - 5.5 02/22 MH # /2017 [facility] HEMATOLOGY Monocytes # 0.4 0.0 - 0.8 02/22 [facility] HEMATOLOGY Eosinophils 0.1 0.0 - 0.5 02/22 # /2017 [facility] HEMATOLOGY Basophils 0.5 0.0 - 1.0 02/22 [facility] HEMATOLOGY Monocytes 5.2 2.0 - 12.0 02/22 [facility] HEMATOLOGY Lymphocytes 25.9 20.0 - 02/22 MH 40.0 /2017 [facility] HEMATOLOGY Eosinophils 0.9 0.0 - 4.0 02/22 [facility] HEMATOLOGY Segs 67.5 45.0 - 02/[address] [facility] BLOOD BANK RBC product Product available 02/22 RESULTS (02/22/17 12:57 PM) [place] CHEM PANEL B/C Ratio 32 6 - 25 06/19 [facility] CHEM PANEL Globulin 4.1 2.7 - 4.2 06/19 [facility] CHEM PANEL A/G Ratio 1.0 0.7 - 1.6 06/19 [facility] CHEM PANEL AGAP 13.0 10.0 - 06/[address] [facility] CHEM PANEL eGFR 50 06/19 Result Comment: [facility] eGFR is calculated using the CKD-EPI formula. In most young, healthy individuals the eGFR will be >90 mL/min/1.73m2 . The eGFR declines with age. An eGFR of 60-89 may be normal in some populations, particularly the elderly, for whom the CKD-EPI formula has not been extensively validated. Use of the eGFR is not recommended in the following populations:< br/>
Sade viduals with unstable creatinine concentration s, including patients and those with serious co-morbid conditions.<b r/>
Patie nts with extremes in muscle mass or diet.

The data above are obtained from the National Kidney Disease Education Program (NKDEP) which additionally recommends that when the eGFR is used in patients with extremes of body mass index for purposes of drug dosing, the eGFR should be multiplied by the estimated BMI. CHEM PANEL Albumin Lvl 4.1 3.5 - 5.0 06/19 [facility] CHEM PANEL AST 11 0 - 37 02/ [facility] CHEM PANEL ALT 23 0 - 65 02/ [facility] CHEM PANEL Total 8.2 6.4 - 8.4 02/ [facility] CHEM PANEL Alk Phos 77 39 - 136 02/ [facility] CHEM PANEL Bili Total 0.5 0.2 - 1.3 02/ [facility] CHEM PANEL Chloride Lvl 109 95 - 109 02/ [facility] CHEM PANEL CO2 23 24 - 32 02/ [facility] CHEM PANEL Calcium Lvl 8.9 8.5 - 10.5 02 [facility] CHEM PANEL Glucose Lvl 93 70 - 99 02 [facility] CHEM PANEL Potassium 4.0 3.5 - 5.1 02 Lvl /2016 [facility] CHEM PANEL Sodium Lvl 141 135 - 145 02 [facility] CHEM PANEL BUN 35 7 - 22 02 [facility] CHEM PANEL Creatinine 1.10 0.50 - 0206 MH Lvl 1.40 /2016 [facility] HEMATOLOGY RBC 4.54 4.20 - 02/ 5.40 /2016 [facility] HEMATOLOGY Hgb 14.3 12.0 - [address] [facility] HEMATOLOGY WBC 8.5 3.7 - 10.[address] [facility] HEMATOLOGY MPV 9.2 7.4 - 10.[address] [facility] HEMATOLOGY MCV 92.6 80.0 - 02 98.0 /2016 [facility] HEMATOLOGY Hct 42.1 36.0 - 02/ 48.0 /2016 [facility] HEMATOLOGY RDW 13.6 11.5 - 02/ MH 14.5 /2016 [facility] HEMATOLOGY MCH 31.5 27.0 - 02/ 31.0 /2016 [facility] HEMATOLOGY Platelet 216 133 - 450 02/ [facility] HEMATOLOGY MCHC 34.1 32.0 - 02/ MH 36.0 /2016 [facility] HEMATOLOGY Basophils 0.6 0.0 - 1.0 02/ [facility] HEMATOLOGY Eosinophils 0.9 0.0 - 4.0 02/ [facility] HEMATOLOGY Lymphocytes 23.2 20.0 - 02/06 MH 40.0 /2016 [facility] HEMATOLOGY Segs 69.1 45.0 - 02/06 75.0 /2016 [facility] HEMATOLOGY Lymphocytes 2.0 1.0 - 5.5 02/ MH # /2017 [facility] HEMATOLOGY Basophils # 0.1 0.0 - 0.2 / /2016 [facility] HEMATOLOGY Eosinophils 0.1 0.0 - 0.5 / MH # /2016 [facility] HEMATOLOGY Monocytes 6.2 2.0 - 12.0 06/19 /2016 [facility] HEMATOLOGY Segs-Bands # 5.9 1.5 - 8.1 06/19 /2016 [facility] HEMATOLOGY Monocytes # 0.5 0.0 - 0.8 06/19 [facility] BLOOD BANK Antibody Negative 09/27 RESULTS Scrn (09/28/15 9:58 AM) /2015 [facility] ast BLOOD BANK ABO/Rh O POS 09/27 RESULTS /2015 [facility] CHEM PANEL Bili Total 0.4 0.2 - 1.3 09/27 /2015 [facility] CHEM PANEL Alk Phos 83 39 - 136 09/27 [facility] CHEM PANEL AST 13 0 - 37 09/27 [facility] CHEM PANEL ALT 21 0 - 65 09/27 [facility] CHEM PANEL Albumin Lvl 3.8 3.5 - 5.0 09/27 /2015 [facility] CHEM PANEL Total 7.8 6.4 - 8.4 09/[address] [facility] CHEM PANEL Calcium Lvl 9.0 8.5 - 10.5 09/27 [facility] CHEM PANEL CO2 26 24 - 32 09/27 [facility] CHEM PANEL eGFR 56 09/27 Result Comment: [facility] eGFR is calculated using the CKD-EPI formula. In most young, healthy individuals the eGFR will be >90 mL/min/1.73m2 . The eGFR declines with age. An eGFR of 60-89 may be normal in some populations, particularly the elderly, for whom the CKD-EPI formula has not been extensively validated. Use of the eGFR is not recommended in the following populations:< br/>
Sade viduals with unstable creatinine concentration s, including patients and those with serious co-morbid conditions.<b r/>
Patie nts with extremes in muscle mass or diet.

The data above are obtained from the National Kidney Disease Education Program (NKDEP) which additionally recommends that when the eGFR is used in patients with extremes of body mass index for purposes of drug dosing, the eGFR should be multiplied by the estimated BMI. CHEM PANEL Chloride Lvl 107 95 - 109 / /2015 [facility] CHEM PANEL Sodium Lvl 141 135 - 145 09/27 /2015 [facility] CHEM PANEL Potassium 4.2 3.5 - 5.1 / MH Lvl /2015 [facility] CHEM PANEL Creatinine 1.01 0.50 - 09/27 MH Lvl 1.40 /2015 [facility] CHEM PANEL BUN 19 7 - 22 09/27 /2015 [facility] CHEM PANEL Glucose Lvl 96 70 - 99 09/27 /2015 [facility] CHEM PANEL B/C Ratio 19 6 - 25 09/27 /2015 [facility] CHEM PANEL AGAP 12.2 10.0 - 09/27 MH 20.0 /2015 [facility] CHEM PANEL A/G Ratio 1.0 0.7 - 1.6 09/27 /2015 [facility] CHEM PANEL Globulin 4.0 2.0 - 4.0 / /2015 [facility] HEMATOLOGY PTT 27.0 22.9 - 09/27 MH 35.8 /2015 [facility] HEMATOLOGY PT 13.8 12.0 - 09/27 MH 14.7 /2015 [facility] HEMATOLOGY INR 1.03 0.85 - 09/27 MH 1.17 /2015 [facility] HEMATOLOGY Eosinophils 0.1 0.0 - 0.5 / MH # /2015 [facility] HEMATOLOGY Basophils 0.8 0.0 - 1.0 09/27 /2015 [facility] HEMATOLOGY Lymphocytes 1.7 1.0 - 5.5 / MH # /2016 [facility] HEMATOLOGY Monocytes # 0.5 0.0 - 0.8 09/27 /2015 [facility] HEMATOLOGY Segs-Bands # 4.1 1.5 - 8.1 09/27 /2015 [facility] HEMATOLOGY Monocytes 7.3 2.0 - 12.0 09/27 /2015 [facility] HEMATOLOGY Eosinophils 2.1 0.0 - 4.0 09/27 /2015 [facility] HEMATOLOGY Segs 63.0 45.0 - 09/27 MH 75.0 /2015 [facility] HEMATOLOGY Lymphocytes 26.8 20.0 - 09/27 MH 40.0 /2015 [facility] HEMATOLOGY Platelet 242 133 - 450 09/27 /2015 [facility] HEMATOLOGY RDW 13.0 11.5 - 09/27 MH 14.5 /2015 [facility] HEMATOLOGY MPV 8.6 7.4 - 10.4 09/27 /2015 [facility] HEMATOLOGY MCHC 32.7 32.0 - 09/27 MH 36.0 /2015 [facility] HEMATOLOGY Hct 39.2 36.0 - 09/27 MH 48.0 /2015 [facility] HEMATOLOGY MCV 91.3 80.0 - 09/27 98.0 /2015 [facility] HEMATOLOGY MCH 29.9 27.0 - 09/27 31.0 /2015 [facility] HEMATOLOGY Hgb 12.8 12.0 - 09/27 16.0 /2015 [facility] HEMATOLOGY WBC 6.5 3.7 - 10.4 09/27 /2015 [facility] HEMATOLOGY RBC 4.29 4.20 - 09/27 5.40 /2015 [facility] URINE AND UA <=1.0 0.1 - 1.0 09/27 STOOL Urobilinogen mg/dL /2015 [facility] URINE AND UA Color Yellow Yellow 09/27 STOOL *NA* /2015 [facility] (09/28/15 9:58 AM) URINE AND UA Spec Grav 1.020 <=1.030 09/27 STOOL /2015 [facility] URINE AND UA Turbidity Clear Clear 09/27 [facility] (09/28/15 9:58 AM) /[facility] URINE AND UA pH 6.0 5.0 - 8.0 09/27 STOOL /2015 [facility] URINE AND UA Protein Negative Negative 09/27 STOOL mg/dL mg/dL /2015 [facility] URINE AND UA Glucose Negative Negative 09/27 STOOL mg/dL mg/dL /2015 [facility] URINE AND UA Bili Negative Negative 09/27 STOOL *NA* /2015 [facility] (09/28/15 9:58 AM) URINE AND UA Ketones Negative Negative 09/27 STOOL mg/dL mg/dL /2015 [facility] URINE AND UA Leuk Est Small Negative 09/27 STOOL *ABN* /2015 [facility] (09/28/15 9:58 AM) URINE AND UA Nitrite Positive Negative 09/27 STOOL *ABN* /2015 [facility] (09/28/15 9:58 AM) URINE AND UA Blood Negative Negative 09/27 [facility] (09/28/15 9:58 AM) /[facility] URINE AND UA Sq Epi Occasional Few /LPF 09/27 STOOL /LPF /2015 [facility] URINE AND UA WBC 34 0 - 5 09/27 STOOL /2015 [facility] URINE AND UA RBC 1 0 - 2 09/27 STOOL /2015 [facility] URINE AND UA Bacteria Moderate None Seen 09/27 STOOL /HPF /HPF /2015 [facility] URINE AND UA Mucus Few /LPF None Seen 09/27 STOOL /LPF /2015 [facility] BLOOD BANK RBC product Product available 1 09/27 Resul t RESULTS (09/28/15 9:52 AM) Comment: [facility] 09/28/2015 11:32 [id number]
Called to [facility] URINE AND UA Bacteria Occasional None Seen 07/07 STOOL /HPF /HPF /2015 [facility] URINE AND UA Color Ltyellow 07/[address] [facility] URINE AND UA <=1.0 0.1 - 1.0 07/07 STOOL Urobilinogen mg/dL /2015 [facility] URINE AND UA Leuk Est Negative Negative 07/07 [facility]OOL (07/07/15 3:37 PM) [facility] Sq Epi Many /LPF Few /LPF 07/[address] [facility] URINE AND UA WBC 3 0 - 5 07/[address] [facility] URINE AND UA RBC 1 0 - 2 07/[address] [facility] URINE AND UA Glucose Negative Negative 07/07 STOOL mg/dL mg/dL [facility] URINE AND UA Blood Small Negative 07/07 STOOL *ABN* /2015 [facility] (07/07/15 3:37 PM) URINE AND UA Nitrite Negative Negative 07/07 STOOL (07/07/15 3:37 PM) [facility] ast URINE AND UA Ketones Negative Negative 07/07 STOOL mg/dL mg/dL [facility] URINE AND UA Bili Negative Negative 07/07 STOOL *NA* /2015 [facility] (07/07/15 3:37 PM) URINE AND UA Protein Negative Negative 07/07 STOOL mg/dL mg/dL [facility] URINE AND UA pH 6.0 5.0 - 8.0 07/[address] [facility] URINE AND UA Turbidity Slight Clear 07/07 STOOL *ABN* /2015 [facility] (07/07/15 3:37 PM) URINE AND UA Spec Grav 1.014 <=1.030 07/07 [facility] CHEM PANEL eGFR 60 07/07 Result Comment: [facility] eGFR is calculated using the CKD-EPI formula. In most young, healthy individuals the eGFR will be >90 mL/min/1.73m2 . The eGFR declines with age. An eGFR of 60-89 may be normal in some populations, particularly the elderly, for whom the CKD-EPI formula has not been extensively validated. Use of the eGFR is not recommended in the following populations:< br/>
Sade viduals with unstable creatinine concentration s, including patients and those with serious co-morbid conditions.<b r/>
Patie nts with extremes in muscle mass or diet.

The data above are obtained from the National Kidney Disease Education Program (NKDEP) which additionally recommends that when the eGFR is used in patients with extremes of body mass index for purposes of drug dosing, the eGFR should be multiplied by the estimated BMI. CHEM PANEL Potassium 4.1 3.5 - 5.1 / MH Lvl /2015 [facility] CHEM PANEL BUN 24 7 - 22 07/07 [facility] CHEM PANEL Creatinine 0.96 0.50 - 02 MH Lvl 1.40 /2015 [facility] CHEM PANEL Glucose Lvl 152 70 - 99 07/07 [facility] CHEM PANEL Sodium Lvl 139 135 - 145 07/07 [facility] CHEM PANEL CO2 23 24 - 32 07/07 [facility] CHEM PANEL Calcium Lvl 8.4 8.5 - 10.5 07/07 [facility] CHEM PANEL Chloride Lvl 107 95 - 109 07/07 /2015 [facility] CHEM PANEL AGAP 13.1 10.0 - 07/07 MH 20.0 /2015 [facility] HEMATOLOGY Monocytes 6.7 2.0 - 12.0 07/07 /2015 [facility] HEMATOLOGY Lymphocytes 1.7 1.0 - 5.5 07/07 MH # /2016 [facility] HEMATOLOGY Segs-Bands # 6.1 1.5 - 8.1 07/07 [facility] HEMATOLOGY Basophils 1.0 0.0 - 1.0 07/07 [facility] HEMATOLOGY Eosinophils 1.6 0.0 - 4.0 / /2015 [facility] HEMATOLOGY Eosinophils 0.1 0.0 - 0.5 / MH # /2016 [facility] HEMATOLOGY Monocytes # 0.6 0.0 - 0.8 07/07 [facility] HEMATOLOGY Basophils # 0.1 0.0 - 0.2 07/07 [facility] HEMATOLOGY Lymphocytes 19.3 20.0 - 07/[address] [facility] HEMATOLOGY Segs 71.4 45.0 - 02 MH 75.0 /2015 [facility] HEMATOLOGY MPV 9.1 7.4 - 10.4 07/07 /2015 [facility] HEMATOLOGY RDW 13.1 11.5 - 07/07 MH 14.5 /2016 [facility] HEMATOLOGY MCHC 34.1 32.0 - 07/07 MH 36.0 /2016 [facility] HEMATOLOGY MCH 30.6 27.0 - 07/07 MH 31.0 /2016 [facility] HEMATOLOGY Platelet 213 133 - 450 07/07 /2015 [facility] HEMATOLOGY WBC 8.6 3.7 - 10.4 / /2015 [facility] HEMATOLOGY Hct 36.9 36.0 - 07/07 MH 48.0 /2016 [facility] HEMATOLOGY Hgb 12.6 12.0 - 07/07 MH 16.0 /2015 [facility] HEMATOLOGY RBC 4.12 4.20 - 07/07 MH 5.40 /2015 [facility] HEMATOLOGY MCV 89.7 80.0 - 07/07 MH 98.0 /2015 [facility] CHEM PANEL Creatinine 1.05 0.50 - 07/[address] [facility] CHEM PANEL eGFR 54 07/07 Result Comment: [facility] eGFR is calculated using the CKD-EPI formula. In most young, healthy individuals the eGFR will be >90 mL/min/1.73m2 . The eGFR declines with age. An eGFR of 60-89 may be normal in some populations, particularly the elderly, for whom the CKD-EPI formula has not been extensively validated. Use of the eGFR is not recommended in the following populations:< br/>
Sade viduals with unstable creatinine concentration s, including patients and those with serious co-morbid conditions.<b r/>
Patie nts with extremes in muscle mass or diet.

The data above are obtained from the National Kidney Disease Education Program (NKDEP) which additionally recommends that when the eGFR is used in patients with extremes of body mass index for purposes of drug dosing, the eGFR should be multiplied by the estimated BMI. HEMATOLOGY Platelet 210 133 - 450 07/07 [facility] CHEM PANEL Lipase Lvl 125 73 - 393 07/07 [facility] CHEM PANEL A/G Ratio 0.8 0.7 - 1.6 07/07 [facility] CHEM PANEL AGAP 14.3 10.0 - 07/[address] [facility] CHEM PANEL B/C Ratio 21 6 - 25 07/07 [facility] CHEM PANEL Globulin 4.6 2.0 - 4.0 07/07 [facility] CHEM PANEL eGFR 46 07/07 Result Comment: [facility] eGFR is calculated using the CKD-EPI formula. In most young, healthy individuals the eGFR will be >90 mL/min/1.73m2 . The eGFR declines with age. An eGFR of 60-89 may be normal in some populations, particularly the elderly, for whom the CKD-EPI formula has not been extensively validated. Use of the eGFR is not recommended in the following populations:< br/>
Sade viduals with unstable creatinine concentration s, including patients and those with serious co-morbid conditions.<b r/>
Patie nts with extremes in muscle mass or diet.

The data above are obtained from the National Kidney Disease Education Program (NKDEP) which additionally recommends that when the eGFR is used in patients with extremes of body mass index for purposes of drug dosing, the eGFR should be multiplied by the estimated BMI. CHEM PANEL Potassium 4.3 3.5 - 5.1 07/07 MH Lvl /2015 [facility] CHEM PANEL Calcium Lvl 9.1 8.5 - 10.5 07/07 [facility] CHEM PANEL Chloride Lvl 105 95 - 109 07/07 [facility] CHEM PANEL Total 8.2 6.4 - 8.4 07/07 [facility] CHEM PANEL CO2 24 24 - 32 07/07 [facility] CHEM PANEL AST 24 0 - 37 07/07 [facility] CHEM PANEL Alk Phos 120 39 - 136 07/07 [facility] CHEM PANEL Albumin Lvl 3.6 3.5 - 5.0 07/07 [facility] CHEM PANEL ALT 129 0 - 65 07/07 [facility] CHEM PANEL Bili Total 0.6 0.2 - 1.3 07/07 [facility] CHEM PANEL Creatinine 1.19 0.50 - 07/07 MH Lvl 1.40 /2015 [facility] CHEM PANEL Sodium Lvl 139 135 - 145 07/07 [facility] CHEM PANEL BUN 25 7 - 22 07/07 [facility] CHEM PANEL Glucose Lvl 102 70 - 99 07/07 [facility] HEMATOLOGY Lymphocytes 11.3 20.0 - 07/[address] [facility] HEMATOLOGY Segs 82.4 45.0 - 07/07 MH 75.0 /2015 [facility] HEMATOLOGY Monocytes # 0.8 0.0 - 0.8 07/07 MH /2015 [facility] HEMATOLOGY Lymphocytes 1.5 1.0 - 5.5 / MH # /2016 [facility] HEMATOLOGY Basophils # 0.1 0.0 - 0.2 07/07 /2015 [facility] HEMATOLOGY Eosinophils 0.2 0.0 - 4.0 07/07 /2015 [facility] HEMATOLOGY Monocytes 5.6 2.0 - 12.0 07/07 /2015 [facility] HEMATOLOGY Basophils 0.5 0.0 - 1.0 07/07 /2015 [facility] HEMATOLOGY Segs-Bands # 11.1 1.5 - 8.1 07/07 MH /2015 [facility] HEMATOLOGY INR 1.06 0.85 - 07/07 MH 1.17 /2015 [facility] HEMATOLOGY PTT 27.6 22.9 - 07/07 MH 35.8 /2015 [facility] HEMATOLOGY PT 14.1 12.0 - 07/07 MH 14.7 /2015 [facility] HEMATOLOGY Platelet 232 133 - 450 07/07 /2015 [facility] HEMATOLOGY MPV 9.2 7.4 - 10.4 07/07 /2015 [facility] HEMATOLOGY Hct 40.9 36.0 - 07/07 MH 48.0 /2015 [facility] HEMATOLOGY RBC 4.52 4.20 - 07/07 MH 5.40 /2015 [facility] HEMATOLOGY Hgb 13.6 12.0 - 07/07 MH 16.0 /2015 [facility] HEMATOLOGY RDW 13.1 11.5 - 07/07 MH 14.5 /2015 [facility] HEMATOLOGY MCV 90.4 80.0 - 07/07 MH 98.0 /2015 [facility] HEMATOLOGY MCH 30.1 27.0 - 07/07 MH 31.0 /2015 [facility] HEMATOLOGY MCHC 33.3 32.0 - 07/07 MH 36.0 /2015 [facility] HEMATOLOGY WBC 13.4 3.7 - 10.4 07/07 /2015 [facility] BLOOD BANK Antibody Negative 07/02 RESULTS Scrn (07/02/15 11:59 AM) /2015 [facility] BLOOD BANK ABO/Rh O POS 07/02 RESULTS /2015 [facility] CHEM PANEL Globulin 4.0 2.0 - 4.0 07/02 /2015 [facility] CHEM PANEL B/C Ratio 18 6 - 25 07/02 /2015 [facility] CHEM PANEL AGAP 11.1 10.0 - 07/02 MH 20.0 /2015 [facility] CHEM PANEL A/G Ratio 1.0 0.7 - 1.6 07/02 [facility] CHEM PANEL eGFR 56 07/02 Result Comment: [facility] eGFR is calculated using the CKD-EPI formula. In most young, healthy individuals the eGFR will be >90 mL/min/1.73m2 . The eGFR declines with age. An eGFR of 60-89 may be normal in some populations, particularly the elderly, for whom the CKD-EPI formula has not been extensively validated. Use of the eGFR is not recommended in the following populations:< br/>
Sade viduals with unstable creatinine concentration s, including patients and those with serious co-morbid conditions.<b r/>
Patie nts with extremes in muscle mass or diet.

The data above are obtained from the National Kidney Disease Education Program (NKDEP) which additionally recommends that when the eGFR is used in patients with extremes of body mass index for purposes of drug dosing, the eGFR should be multiplied by the estimated BMI. CHEM PANEL Calcium Lvl 9.4 8.5 - 10.5 07/02 [facility] CHEM PANEL Chloride Lvl 108 95 - 109 07/02 [facility] CHEM PANEL Potassium 4.1 3.5 - 5.1 07/02 MH Lvl [facility] CHEM PANEL Sodium Lvl 141 135 - 145 07/02 [facility] CHEM PANEL Creatinine 1.01 0.50 - 07/02 MH Lvl 1.40 [facility] CHEM PANEL BUN 18 7 - 22 07/02 [facility] CHEM PANEL Glucose Lvl 102 70 - 99 07/02 [facility] CHEM PANEL Alk Phos 83 39 - 136 07/02 [facility] CHEM PANEL AST 13 0 - 37 07/02 [facility] CHEM PANEL Total 8.1 6.4 - 8.4 07/02 [facility] CHEM PANEL Bili Total 0.6 0.2 - 1.3 07/02 [facility] CHEM PANEL CO2 26 24 - 32 07/02 [facility] CHEM PANEL Albumin Lvl 4.1 3.5 - 5.0 07/02 [facility] CHEM PANEL ALT 36 0 - 65 07/02 [facility] HEMATOLOGY MCHC 33.7 32.0 - 07/02 MH 36.0 /2015 [facility] HEMATOLOGY Hgb 13.6 12.0 - 02 MH 16.0 /2015 [facility] HEMATOLOGY MCV 90.4 80.0 - 07/02 MH 98.0 /2015 [facility] HEMATOLOGY Hct 40.4 36.0 - 07/02 MH 48.0 /2015 [facility] HEMATOLOGY MCH 30.5 27.0 - 07/02 MH 31.0 /2015 [facility] HEMATOLOGY Platelet 241 133 - 450 07/02 /2015 [facility] HEMATOLOGY RDW 13.2 11.5 - 07/02 MH 14.5 /2015 [facility] HEMATOLOGY MPV 8.7 7.4 - 10.4 07/02 /2015 [facility] HEMATOLOGY RBC 4.47 4.20 - 07/02 MH 5.40 /2015 [facility] HEMATOLOGY WBC 6.5 3.7 - 10.4 07/02 /2015 [facility] HEMATOLOGY Eosinophils 0.1 0.0 - 0.5 07/02 MH # /2015 [facility] HEMATOLOGY Monocytes # 0.4 0.0 - 0.8 07/02 /2015 [facility] HEMATOLOGY Lymphocytes 1.9 1.0 - 5.5 07/02 MH # /2015 [facility] HEMATOLOGY Segs-Bands # 4.1 1.5 - 8.1 07/02 /2015 [facility] HEMATOLOGY Monocytes 5.6 2.0 - 12.0 07/02 /2015 [facility] HEMATOLOGY Eosinophils 1.3 0.0 - 4.0 07/02 /2015 [facility] HEMATOLOGY Lymphocytes 29.2 20.0 - 07/02 MH 40.0 /2015 [facility] HEMATOLOGY Basophils 0.8 0.0 - 1.0 07/02 /2015 [facility] HEMATOLOGY Segs 63.1 45.0 - 07/02 MH 75.0 /2015 [facility] HEMATOLOGY PTT 28.1 22.9 - 07/02 MH 35.8 /2015 [facility] HEMATOLOGY INR 1.11 0.85 - 07/02 MH 1.17 /2015 [facility] HEMATOLOGY PT 14.6 12.0 - 07/02 MH 14.7 /2015 [facility] URINE AND UA <=1.0 0.1 - 1.0 07/02 STOOL Urobilinogen mg/dL /2015 [facility] URINE AND UA Glucose Negative Negative 07/02 STOOL mg/dL mg/dL /2015 [facility] URINE AND UA Spec Grav 1.021 <=1.030 07/02 STOOL /2016 [facility] URINE AND UA pH 5.0 5.0 - 8.0 07/02 STOOL /2015 [facility] URINE AND UA Protein Negative Negative 07/02 STOOL mg/dL mg/dL /2015 [facility] URINE AND UA Color Yellow Yellow 07/02 STOOL *NA* /2015 [facility] (07/02/15 11:59 AM) URINE AND UA Ketones Negative Negative 07/02 STOOL mg/dL mg/dL /2015 [facility] URINE AND UA RBC 3 0 - 2 07/02 STOOL /2015 [facility] URINE AND UA Mucus Few /LPF None Seen 07/02 STOOL /LPF /2015 [facility] URINE AND UA Turbidity Marked Clear 07/02 STOOL *ABN* /2015 [facility] (07/02/15 11:59 AM) URINE AND UA WBC 1 0 - 5 07/[address] [facility] URINE AND UA Bili Negative Negative 07/02 STOOL *NA* /2015 [facility] (07/02/15 11:59 AM) URINE AND UA Nitrite Negative Negative 07/02 STOOL (07/02/15 11:59 AM) [facility] URINE AND UA Hyal Cast 3 0 - 2 07/[address] [facility] URINE AND UA Blood Negative Negative 07/02 STOOL (07/02/15 11:59 AM) [facility] URINE AND UA Leuk Est Negative Negative 07/02 STOOL (07/02/15 11:59 AM) [facility] URINE AND UA Sq Epi Many /LPF Few /LPF 07/[address] [facility] BLOOD BANK RBC product Product available 1 07/02 Resul t RESULTS (07/02/15 11:17 AM) Comment: [place] 07/02/2015 13:18 [id number]
notified day that blood is ready 07/02/2015 13:18 [facility] BLOOD BANK ABO/Rh O POS 08/11 RESULTS /2014 [facility] BLOOD BANK Antibody Negative 08/11 RESULTS Scrn (08/11/14 6:47 AM) /2014 [facility] CHEM PANEL Albumin Lvl 3.4 3.5 - 5.0 08/11 [facility] CHEM PANEL Calcium Lvl 8.5 8.5 - 10.5 08/11 [facility] CHEM PANEL eGFR 57 08/11 <sup>2</sup>R esult [facility] Comment: The eGFR is calculated using the CKD-EPI formula. In most young, healthy individuals the eGFR will be >90 mL/min/1.73m2 . The eGFR declines with age. An eGFR of 60-89 may be normal in some populations, particularly the elderly, for whom the CKD-EPI formula has not been extensively validated. Use of the eGFR is not recommended in the following populations:& lt;br/>
I ndividuals with unstable creatinine concentration s, including patients and those with serious co-morbid conditions.<b r/>
Patie nts with extremes in muscle mass or diet.

The data above are obtained from the National Kidney Disease Education Program (NKDEP) which additionally recommends that when the eGFR is used in patients with extremes of body mass index for purposes of drug dosing, the eGFR should be multiplied by the estimated BMI. CHEM PANEL Creatinine 1.0 0.5 - 1.4 08/11 [facility] CHEM PANEL Sodium Lvl 142 135 - 145 08/11 [facility] CHEM PANEL Potassium 4.1 3.5 - 5.1 08/11 [facility] CHEM PANEL Chloride Lvl 110 95 - 109 08/11 [facility] CHEM PANEL Alk Phos 66 39 - 136 08/11 [facility] CHEM PANEL Bili Total 0.3 0.2 - 1.3 08/11 [facility] CHEM PANEL AST 13 0 - 37 08/11 [facility] CHEM PANEL ALT 16 0 - 65 08/11 [facility] CHEM PANEL Total 7.4 6.4 - 8.4 08/11 [facility] CHEM PANEL CO2 26 24 - 32 08/11 [facility] CHEM PANEL BUN 23 7 - 22 08/11 [facility] CHEM PANEL Glucose Lvl 97 70 - 99 08/11 <sup>3</sup>I nterpretive [facility] Data: Adult reference range values reflect the clinical guidelines
of the [place] [employer]. CHEM PANEL B/C Ratio 23 6 - 25 08/11 [facility] CHEM PANEL AGAP 10.1 10.0 - 08/11 MH 20.0 /2014 [facility] CHEM PANEL Globulin 4.0 2.0 - 4.0 08/11 [facility] CHEM PANEL A/G Ratio 0.8 0.7 - 1.6 08/11 [facility] HEMATOLOGY MPV 8.9 7.4 - 10.4 08/11 [facility] HEMATOLOGY Platelet 215 133 - 450 08/11 [facility] Hgb 12.0 12.0 - 08/11 MH 16.0 /2014 [facility] HEMATOLOGY RBC 3.88 4.20 - 08/11 MH 5.40 /2014 [facility] HEMATOLOGY WBC 6.7 3.7 - 10.4 08/11 /2014 [facility] HEMATOLOGY RDW 13.6 11.5 - 08/11 MH 14.5 /2014 [facility] MCHC 34.0 32.0 - 08/11 MH 36.0 /2014 [facility] HEMATOLOGY MCH 30.9 27.0 - 08/11 MH 31.0 /2014 [facility] HEMATOLOGY MCV 90.7 80.0 - 08/11 MH 98.0 /2014 [facility] HEMATOLOGY Hct 35.2 36.0 - 08/11 MH 48.0 /2014 [facility] HEMATOLOGY Segs-Bands # 3.9 1.5 - 8.1 08/11 /2014 [facility] HEMATOLOGY Lymphocytes 2.1 1.0 - 5.5 08/11 MH # /2014 [facility] HEMATOLOGY Monocytes 7.2 2.0 - 12.0 08/11 [facility] HEMATOLOGY Eosinophils 2.9 0.0 - 4.0 08/11 /2014 [facility] HEMATOLOGY Basophils 0.6 0.0 - 1.0 08/11 [facility] HEMATOLOGY Monocytes # 0.5 0.0 - 0.8 08/11 [facility] HEMATOLOGY Eosinophils 0.2 0.0 - 0.5 08/11 MH # /2014 [facility] HEMATOLOGY Lymphocytes 31.7 20.0 - 08/11 MH 40.0 /2014 [facility] HEMATOLOGY Segs 57.6 45.0 - 08/11 75.0 /2014 [facility] INR 1.00 0.85 - 08/11 <sup>4</sup>I 1.17 /[address] [facility] Data: RECOMMENDED RANGES FOR PROTIME INR:
2.0-3.0 for most medical and surgical thromboemboli c states.
2.5-3.5 for artificial heart valves and recurrent embolism.<br/ >
INR SHOULD BE USED ONLY FOR PATIENTS ON STABLE ANTICOAGULANT THERAPY. HEMATOLOGY PTT 28.3 22.9 - 08/11 <sup>5</sup>I 35.8 /[address] [facility] Data: Heparin Therapeutic Range: 57 - 92 Seconds HEMATOLOGY PT 13.2 12.0 - 08/11 14.7 /2014 [facility] BLOOD BANK RBC product Product available 1 08/11 <sup> 1</sup>R RESULTS (08/11/14 6:28 AM) /2014 [facility] Comment: 08/11/2014 08:12 BETHEL
called to [facility] AGAP 11.8 10.0 - 05/[address] [facility] ELECTROLYT eGFR 57 05/20 <sup>2</sup>R esult [facility] Comment: The eGFR is calculated using the CKD-EPI formula. In most young, healthy individuals the eGFR will be >90 mL/min/1.73m2 . The eGFR declines with age. An eGFR of 60-89 may be normal in some populations, particularly the elderly, for whom the CKD-EPI formula has not been extensively validated. Use of the eGFR is not recommended in the following populations:& lt;br/>
I ndividuals with unstable creatinine concentration s, including patients and those with serious co-morbid conditions.<b r/>
Patie nts with extremes in muscle mass or diet.

The data above are obtained from the National Kidney Disease Education Program (NKDEP) which additionally recommends that when the eGFR is used in patients with extremes of body mass index for purposes of drug dosing, the eGFR should be multiplied by the estimated BMI. ELECTROLYT Chloride Lvl 111 95 - 109 05/20 [facility] ELECTROLYT CO2 24 24 - 32 05/20 [facility] ELECTROLYT Potassium 3.8 3.5 - 5.1 05/[address] [facility] [address] [facility] ELECTROLYT Sodium Lvl 143 135 - 145 05/20 [facility] ELECTROLYT Calcium Lvl 7.4 8.5 - 10.5 05/20 [facility] ELECTROLYT Creatinine 1.0 0.5 - 1.4 05/[address] [facility] [address] [facility] ELECTROLYT BUN 17 7 - 22 05/20 [facility] ELECTROLYT Glucose Lvl 91 70 - 99 05/20 <sup>5</sup>I nterpretive [facility] Data: Adult reference range values reflect the clinical guidelines
of the [place] [employer]. HEMATOLOGY MPV 9.1 7.4 - 10.4 05/20 [facility] HEMATOLOGY Platelet 177 133 - 450 05/20 /2014 [facility] MCHC 34.1 32.0 - 05/20 MH 36.0 /2014 [facility] HEMATOLOGY RDW 13.1 11.5 - 05/20 MH 14.5 [facility] WBC 9.8 3.7 - 10.4 05/20 [facility] HEMATOLOGY Hgb 11.3 12.0 - 05/20 MH 16.0 /2014 [facility] HEMATOLOGY RBC 3.48 4.20 - 05/20 MH 5.40 /2014 [facility] HEMATOLOGY Hct 33.0 36.0 - 05/20 MH 48.0 /2014 [facility] HEMATOLOGY MCH 32.3 27.0 - 05/20 MH 31.0 /2014 [facility] HEMATOLOGY MCV 94.7 80.0 - 05/20 MH 98.0 /2014 [facility] HEMATOLOGY Basophils # 0.1 0.0 - 0.2 05/20 [facility] HEMATOLOGY Lymphocytes 21.4 20.0 - 05/[address] [facility] HEMATOLOGY Segs 70.4 45.0 - 05/[address] [facility] HEMATOLOGY Eosinophils 0.2 0.0 - 4.0 05/20 [facility] HEMATOLOGY Monocytes 6.9 2.0 - 12.0 05/20 [facility] HEMATOLOGY Monocytes # 0.7 0.0 - 0.8 05/20 [facility] HEMATOLOGY Lymphocytes 2.1 1.0 - 5.5 05/20 /2014 [facility] HEMATOLOGY Basophils 1.1 0.0 - 1.0 05/20 [facility] Segs-Bands # 6.9 1.5 - 8.1 05/20 [facility] CHEM PANEL eGFR 65 05/20 <sup>3</sup>R esult [facility] Comment: The eGFR is calculated using the CKD-EPI formula. In most young, healthy individuals the eGFR will be >90 mL/min/1.73m2 . The eGFR declines with age. An eGFR of 60-89 may be normal in some populations, particularly the elderly, for whom the CKD-EPI formula has not been extensively validated. Use of the eGFR is not recommended in the following populations:& lt;br/>
I ndividuals with unstable creatinine concentration s, including patients and those with serious co-morbid conditions.<b r/>
Patie nts with extremes in muscle mass or diet.

The data above are obtained from the National Kidney Disease Education Program (NKDEP) which additionally recommends that when the eGFR is used in patients with extremes of body mass index for purposes of drug dosing, the eGFR should be multiplied by the estimated BMI. CHEM PANEL Creatinine 0.9 0.5 - 1.4 05/[address] [facility] HEMATOLOGY PTT 32.6 22.9 - 05/20 <sup>8</sup>I MH 35.8 /[address] [facility] Data: Heparin Therapeutic Range: 57 - 92 Seconds HEMATOLOGY Platelet 199 133 - 450 05/20 [facility] BLOOD BANK ABO/Rh O POS 05/19 RESULTS /2014 [facility] BLOOD BANK Antibody Negative 05/19 RESULTS Scrn (05/19/14 6:41 AM) /2014 [facility] CHEM PANEL A/G Ratio 1.0 0.7 - 1.6 05/19 [facility] CHEM PANEL AGAP 10.8 10.0 - 05/[address] [facility] CHEM PANEL B/C Ratio 16 6 - 25 05/19 [facility] CHEM PANEL Globulin 3.8 2.0 - 4.0 05/19 [facility] CHEM PANEL eGFR 57 05/19 <sup>4</sup>R esult [facility] Comment: The eGFR is calculated using the CKD-EPI formula. In most young, healthy individuals the eGFR will be >90 mL/min/1.73m2 . The eGFR declines with age. An eGFR of 60-89 may be normal in some populations, particularly the elderly, for whom the CKD-EPI formula has not been extensively validated. Use of the eGFR is not recommended in the following populations:& lt;br/>
I ndividuals with unstable creatinine concentration s, including patients and those with serious co-morbid conditions.<b r/>
Patie nts with extremes in muscle mass or diet.

The data above are obtained from the National Kidney Disease Education Program (NKDEP) which additionally recommends that when the eGFR is used in patients with extremes of body mass index for purposes of drug dosing, the eGFR should be multiplied by the estimated BMI. CHEM PANEL Potassium 3.8 3.5 - 5.1 05/[address] [facility] CHEM PANEL Sodium Lvl 144 135 - 145 05/19 [facility] CHEM PANEL Creatinine 1.0 0.5 - 1.4 05/19 Lvl /2014 [facility] CHEM PANEL Chloride Lvl 109 95 - 109 05/19 [facility] CHEM PANEL Calcium Lvl 8.7 8.5 - 10.5 05/19 [facility] CHEM PANEL Bili Total 0.5 0.2 - 1.3 05/19 [facility] CHEM PANEL AST 13 0 - 37 05/19 [facility] CHEM PANEL Alk Phos 66 39 - 136 05/19 [facility] CHEM PANEL Total 7.5 6.4 - 8.4 05/19 [facility] CHEM PANEL Albumin Lvl 3.7 3.5 - 5.0 05/19 [facility] CHEM PANEL ALT 25 0 - 65 05/19 [facility] CHEM PANEL BUN 16 7 - 22 05/19 [facility] CHEM PANEL CO2 28 24 - 32 05/19 [facility] CHEM PANEL Glucose Lvl 97 70 - 99 05/19 <sup>6</sup>I nterpretive [facility] Data: Adult reference range values reflect the clinical guidelines
of the [place] [employer]. HEMATOLOGY INR 0.95 0.85 - 05/19 <sup>7</sup>I 1.17 /[address] [facility] Data: RECOMMENDED RANGES FOR PROTIME INR:
2.0-3.0 for most medical and surgical thromboemboli c states.
2.5-3.5 for artificial heart valves and recurrent embolism.<br/ >
INR SHOULD BE USED ONLY FOR PATIENTS ON STABLE ANTICOAGULANT THERAPY. HEMATOLOGY PT 12.7 12.0 - 05/19 14.7 /2014 [facility] HEMATOLOGY PTT 32.9 22.9 - 05/19 <sup>9</sup>I 35.8 /[address] [facility] Data: Heparin Therapeutic Range: 57 - 92 Seconds HEMATOLOGY Monocytes 7.1 2.0 - 12.0 05/19 [facility] HEMATOLOGY Segs 58.7 45.0 - 05/19 75.0 /2014 [facility] HEMATOLOGY Basophils 0.5 0.0 - 1.0 05/19 [facility] HEMATOLOGY Lymphocytes 32.5 20.0 - 05/19 40.0 /2014 [facility] HEMATOLOGY Segs-Bands # 3.5 1.5 - 8.1 / /2014 [facility] HEMATOLOGY Eosinophils 1.2 0.0 - 4.0 05/19 /2014 [facility] HEMATOLOGY Eosinophils 0.1 0.0 - 0.5 05/19 MH # /2014 [facility] HEMATOLOGY Lymphocytes 1.9 1.0 - 5.5 05/19 MH # /2014 [facility] HEMATOLOGY Monocytes # 0.4 0.0 - 0.8 05/19 /2014 [facility] HEMATOLOGY RBC 4.04 4.20 - 05/19 MH 5.40 /2014 [facility] HEMATOLOGY WBC 5.9 3.7 - 10.4 05/19 /2014 [facility] HEMATOLOGY Hct 38.5 36.0 - 05/19 MH 48.0 /2014 [facility] HEMATOLOGY Hgb 13.1 12.0 - 05/19 16.0 /2014 [facility] HEMATOLOGY MCV 95.5 80.0 - 05/19 98.0 /2014 [facility] MCHC 34.0 32.0 - 05/19 36.0 /2014 [facility] MCH 32.5 27.0 - 05/19 31.0 /2014 [facility] RDW 13.3 11.5 - 05/19 14.5 /2014 [facility] MPV 9.6 7.4 - 10.4 05/19 /2014 [facility] Platelet 215 133 - 450 05/19 /2014 [facility] BLOOD BANK RBC product Product available 1 05/19 <sup> 1</sup>R RESULTS (05/19/14 6:26 AM) /[address] Comment: 05/19/2014 08:07 ASBHAVSA
called to [facility] URINE AND UA Color Ltyellow 07/09 STOOL /2013 [facility] URINE AND UA <=1.0 0.1 - 1.0 07/09 STOOL Urobilinogen mg/dL /2013 [facility] URINE AND UA Hyal Cast 3 0 - 2 07/09 STOOL /2013 [facility] URINE AND UA Mucus Few /LPF None Seen 07/09 STOOL /LPF /2013 [facility] URINE AND UA RBC 2 0 - 2 07/09 STOOL /2013 [facility] URINE AND UA Bacteria Occasional None Seen 07/09 STOOL /HPF /HPF /2013 [facility] URINE AND UA Leuk Est Trace Negative 07/09 STOOL *ABN* /2013 [facility] (07/09/2013 13:46:19 Nikky/[place]) URINE AND UA WBC 9 0 - 5 07/09 STOOL /2013 [facility] URINE AND UA Sq Epi Moderate Few /LPF 07/09 STOOL /LPF /2013 [facility] URINE AND UA Blood Negative Negative 07/09 STOOL (07/09/2013 13:46:19 Nikky/[place]) [facility] URINE AND UA Nitrite Negative Negative 07/09 STOOL (07/09/2013 13:46:19 Nikky/[place]) [facility] URINE AND UA Bili Negative Negative 07/09 STOOL *NA* /2013 [facility] (07/09/2013 13:46:19 Nikky/[place]) URINE AND UA Ketones Negative Negative 07/09 STOOL mg/dL mg/dL /2013 [facility] URINE AND UA Glucose Negative Negative 07/09 STOOL mg/dL mg/dL [facility] URINE AND UA Protein Negative Negative 07/09 STOOL mg/dL mg/dL [facility] URINE AND UA pH 6.0 5.0 - 8.0 07/[address] [facility] URINE AND UA Turbidity Marked Clear 07/09 STOOL *ABN* /2013 [facility] (07/09/2013 13:46:19 [place]) URINE AND UA Spec Grav 1.010 <=1.030 07/[address] [facility] CARDIAC Troponin-I <0.02 0.00 - 07/[address] [facility] CARDIAC BNP 34 <=100 07/09 <sup>3</sup>I ENZYMES pg/mL /[address] [facility] Data: Elevated results are in line with increasing severity of
conge stive heart failure. Minor elevations between 100 and 300
may be seen with Myocardial Ischemia, Sodium retaining drugs,
and compensated/t reated heart failure. CARDIAC CK MB <0.5 0.5 - 3.6 07/[address] [facility] CARDIAC Total CK 33 12 - 191 07/[address] [facility] CARDIAC CK-MB INDEX <1.5 0.0 - 2.5 07/[address] [facility] CHEM PANEL Globulin 4.2 2.0 - 4.0 07/09 [facility] CHEM PANEL A/G Ratio 0.9 0.7 - 1.6 07/09 [facility] CHEM PANEL AGAP 14.7 10.0 - 07/09 MH 20.0 /2013 [facility] CHEM PANEL B/C Ratio 21 6 - 25 07/09 [facility] CHEM PANEL eGFR 46 07/09 <sup>1</sup>R esult [facility] Comment: The eGFR is calculated using the CKD-EPI formula. In most young, healthy individuals the eGFR will be >90 mL/min/1.73m2 . The eGFR declines with age. An eGFR of 60-89 may be normal in some populations, particularly the elderly, for whom the CKD-EPI formula has not been extensively validated. Use of the eGFR is not recommended in the following populations:& lt;br/>
I ndividuals with unstable creatinine concentration s, including patients and those with serious co-morbid conditions.<b r/>
Patie nts with extremes in muscle mass or diet.

The data above are obtained from the National Kidney Disease Education Program (NKDEP) which additionally recommends that when the eGFR is used in patients with extremes of body mass index for purposes of drug dosing, the eGFR should be multiplied by the estimated BMI. CHEM PANEL Creatinine 1.2 0.5 - 1.4 07/[address] [facility] CHEM PANEL BUN 25 7 - 22 07/09 [facility] CHEM PANEL Sodium Lvl 144 135 - 145 07/09 [facility] CHEM PANEL ALANINE 26 0 - 65 07/[address] [facility] CHEM PANEL Albumin Lvl 3.9 3.5 - 5.0 07/09 [facility] CHEM PANEL Bili Total 0.5 0.2 - 1.3 07/09 [facility] CHEM PANEL Alk Phos 78 39 - 136 07/09 [facility] CHEM PANEL Potassium 3.7 3.5 - 5.1 07/[address] [facility] CHEM PANEL Chloride Lvl 110 95 - 109 07/09 [facility] CHEM PANEL CO2 23 24 - 32 07/09 [facility] CHEM PANEL Calcium Lvl 9.1 8.5 - 10.5 07/09 [facility] CHEM PANEL Total 8.1 6.4 - 8.4 07/[address] [facility] CHEM PANEL ASPARTATE 8 0 - 37 07/[address] [facility] CHEM PANEL Glucose Lvl 115 70 - 99 07/09 <sup>2</sup>I nterpretive [facility] Data: Adult reference range values reflect the clinical guidelines
of the [place] [employer]. HEMATOLOGY aPTT 25.5 22.9 - 07/09 <sup>5</sup>I 35.8 /[address] [facility] Data: Heparin Therapeutic Range: 57 - 92 Seconds HEMATOLOGY PROTIME 12.7 12.0 - 07/09 14.7 /2013 [facility] HEMATOLOGY INR 0.96 0.85 - 07/09 <sup>4</sup>I 1.17 /[address] [facility] Data: RECOMMENDED RANGES FOR PROTIME INR:
2.0-3.0 for most medical and surgical thromboemboli c states.
2.5-3.5 for artificial heart valves and recurrent embolism.<br/ >
INR SHOULD BE USED ONLY FOR PATIENTS ON STABLE ANTICOAGULANT THERAPY. HEMATOLOGY Platelet 234 133 - 450 07/09 /2013 [facility] HEMATOLOGY MPV 9.1 7.4 - 10.4 07/09 [facility] HEMATOLOGY RDW 12.4 11.5 - 07/09 14.5 /2013 [facility] HEMATOLOGY RBC X 10x6 4.50 4.20 - 07/09 5.40 /2013 [facility] HEMATOLOGY WBC X 10x3 13.3 3.7 - 10.4 07/09 /2013 [facility] HEMATOLOGY MCHC 34.5 32.0 - 07/09 36.0 /2013 [facility] HEMATOLOGY MCH 32.0 27.0 - 07/09 31.0 /2013 [facility] HEMATOLOGY MCV 92.7 81.0 - 07/09 99.0 /2013 [facility] HEMATOLOGY Hgb 14.4 12.0 - 07/09 16.0 /2013 [facility] HEMATOLOGY Hct 41.7 36.0 - 07/09 48.0 /2014 [facility] HEMATOLOGY Basophils # 0.0 0.0 - 0.2 07/09 [facility] HEMATOLOGY Eosinophils 0.0 0.0 - 0.5 07/09 # /2013 [facility] HEMATOLOGY Monocytes # 0.6 0.0 - 0.8 07/09 [facility] HEMATOLOGY Lymphocytes 1.3 1.0 - 5.5 07/09 # /2013 [facility] HEMATOLOGY Segs-Bands # 11.4 1.5 - 8.1 07/09 [facility] HEMATOLOGY Eosinophils 0.1 0.0 - 4.0 07/09 [facility] HEMATOLOGY Monocytes 4.5 2.0 - 12.0 07/09 [facility] HEMATOLOGY Basophils 0.1 0.0 - 1.0 07/09 [facility] HEMATOLOGY Segs 85.7 45.0 - 07/09 75.0 /2013 [facility] HEMATOLOGY Lymphocytes 9.6 20.0 - 07/09 40.0 /2013 [facility] Pathology Reports No Data Provided for This Section Diagnostic Reports Report Value Date Source Chest/Abdomen/Pelvis Radiation Dose CTDIVOL = 0 (mGy): DLP = 594 (mGy-cm) 05/20/2019 [facility] wo IV contrast CT PROCEDURE INFORMATION: Exam: CT Chest Without Contrast Exam date and time: 05/20/2019 9:50 AM Age: 73 years old Clinical indication: Dysphagia, unspecified; Add itional info: /r13.10 dysphagia, unspecified, r10.12 left upper quadra nt pain TECHNIQUE: Imaging protocol: Computed tomography of the yandy st without contrast. Total DLP: 594 mGy-cm Radiation optimization: All CT scans at this facility use at least one of these dose optimization techniques: automated exposure control; mA and/or kV adjustment per patient size (includes targeted e xams where dose is matched to clinical indication); or iterative reconstructio n. Other contrast: Route: Oral, Material: omni 50 m l; COMPARISON: CHEST/ABDOMEN WO CONTRAST CT 06/22/2016, esophag carey 04/07/2019 FINDINGS: Lungs: 8 mm lung nodule post eromedial left lower lobe appears larger, series 4, image 141. Stable mild interstitial scar ring in the left lower lobe. Calcified granulomas in the lungs. Pleural space: No pneumothorax. No pleural effus ion. Heart: Cardiac pacemaker. Mediastinum: Approximately 3 cm hiatal hernia is again demonstrated. No appreciable esophagogastric fistula. Mild-modera te residual contrast in the esophagus. Aorta: No aortic aneurysm. Lymph nodes: Calcified mediastinal lymph nodes. Bones/joints: No acute fracture. Soft tissues: Small calcifications in both breas ts again noted. PROCEDURE INFORMATION: Exam: CT Abdomen And Pelvis Without Contrast Exam date and time: 05/20/2019 9:50 AM Age: 73 years old Clinical indication: Dysphagia, unspecified; Add itional info: /r13.10 dysphagia, unspecified, r10.12 left upper quadra nt pain TECHNIQUE: Imaging protocol: Computed tomography of the abd omen and pelvis without contrast. Total DLP: 594 mGy-cm Radiation optimization: All CT scans at this facility use at least one of these dose optimization techniques: automated exposure control; mA and/or kV adjustment per patient size (includes targeted e xams where dose is matched to clinical indication); or iterative reconstructio n. Other contrast: Route: Oral, Material: omni 50 m l; Other technique: Limited exam without contrast COMPARISON: CHEST/ABDOMEN WO CONTRAST CT 06/22/2016 9:02 AM FINDINGS: Limitations: Limited exam without IV contrast. Liver: Appears unremarkable. Gallbladder and bile ducts: Cholecystectomy. Pancreas: Stable calcific density body of the pa ncreas. Spleen: Calcified granuloma in the spleen. Adrenals: Unremarkable. Kidneys and ureters: Cortical scarring of the ki dneys. Stomach and bowel: Moderate stool in the left co jesus with distention of the distal transverse colon. Appendix: Not clearly visualized. Intraperitoneal space: No free air or free fluid . Vasculature: Calcification aorta. Lymph nodes: No enlarged lymph nodes. Bladder: The bladder is under distended. Reproductive: Hysterectomy. Bones/joints: Scoliosis and spondylosis thoracol umbar spine. Soft tissues: Stable surgical clips right hemipe lvis. Fatty atrophy proximal anterolateral thigh muscle. IMPRESSION: 1. Approximately 3 cm hiatal hernia. Contrast in the esophagus may reflect esophageal dysmotility or gastroesophageal reflu x. No esophagogastric fistula is seen. 2. 8 mm lung nodule left low er lobe appears slightly larger which may be due to differences in slice thickness. Follow-up CT [facility] st in 6 months to document stability. 3. Moderate stool in the left colon with distent ion of the distal transverse colon may reflect constipation. Stanley Smith MD On 05/20/2019 16:51:00; [id number] Barium Swallow w PROCEDURE INFORMATION: 04/07/2019 [employer] Esophagus Function DX Exam: FL Swallowing Function with Cine or Video Exam date and time: 04/07/2019 11:00 AM Age: 73 years old Clinical history: Gastro-esophageal reflux disea se without esophagitis; Left upper quadrant pain; Dysphagia, unspecified; Add itional info: /r13.10 dysphagia, unspecified, r10.12 left upper quadra nt pain, k21.9 gastro-esophageal reflux disease without esophag itis TECHNIQUE: Imaging protocol: Swallowing function, with cine radiography/ videoradiograph. Guided with fluoroscopy. Exam supervised by faci lity personnel. Contrast material: BARIUM; Contrast volume: 100 ml; Contrast route: PO; Other technique: limits= chelita; seconds= 320; imag es= 8204; COMPARISON: RF BARIUM SWALLOW W ESOPHAGUS FUNCTION DX 06/14/19 17 3:54 PM FINDINGS: Esophagus: Prone and LPO images of the esophagus reveal moderate delay in passage of barium from the esophagus to the stom ach. 2 channels are noted to extend from the distal esophagus to the stomach. The findings are consistent with patient's known history of esophagogastric fistula. No hiatal hernia is visualized. Upright image of the esophagus reveal mo derate delay in passage of barium from the esophagus to the stomach . The LES relaxes appropriately. Fistulous track is again demonstrated on the upright images. Subsequently, single swallow of a small piece of granola bar and barium was administered. There is pooling of the solid bolu s at the distal esophagus. Patient is able to clear the solid bolus from th e distal esophagus following ingestion of thin barium. Hypopharynx: There is no delay in passage of bar ium from the orpharynx to the esophagus. The cricopharyngeus relaxes normally. There is no evidence for cricopharyngeal bar or Zenker's diverticulum. Other findings: Overhead image performed at the conclusion of the procedure reveals prompt passage of barium from the stomac h into the small bowel. IMPRESSION: Moderate esophageal dysmotility, relatively unch anged from previous study of 06/14/2016. Persistent gastro-esophageal fistula. Andrew Morgan MD On 04/07/2019 16:07:56; VR-SER Breast Complete Sergei US 10/23/2018 [facility] COMPLETE ULTRASOUND OF BOTH BREASTS AND AXILLA: 10/23/2018 CLINICAL: Pain and Dense breasts. COMPARISON:Comparison is mad e to exams dated: 10/23/2018 mammogram, 07/10/2017 mammogram, 03/28/2016 mammogram, 12/29/2014 mammogram, 06/19/2013 ultrasound, and 12/26/2012 ultrasound - [facility]. TECHNIQUE: Color flow and re al-time ultrasound of both breasts four quadrants, retroareolar, and axilla regions were performed. Cruz scale images of the real- time examination were reviewed. FINDINGS: There is a small benign cyst left breast at 12 o'clock that is not significantly changed and correlates with ultrasound. There also is a stable benign mass left breast at 12 o'clock ( previously reported as 2 o'clock) that correlate s with ultrasound. Additionally, there is a sta ble benign coarse calcification right breast at 9 o'clock that correlates with mammography and ultrasound. Additionally, there also is a stable post surgical scar r ight breast at 3 o'clock that correlates with ul trasound. No abnormalities were seen sonographically in ei ther axilla. There has been no significant interval change. IMPRESSION: BENIGN There is no sonographic evidence of malignancy. No sonographic abnormality t o correspond with the reported intermittent breast pain. A 1 year screening mammogram is recommended.(10/24/2019) The results were reviewed with the patient. This exam was interpreted at [id number] for [facility]. Luís Aguilar M.D. jt/:10/23/2018 16:11:41 Financial Recording Clerk(s): Vladimir Sampson [facility] letter sent: BI-RADS 1/2 Ultrasound BI-RADS: 2 Benign Breast Mammo Diag SERGEI 10/23/2018 [facility] w stella incl CAD MA BILATERAL DIGITAL DIAGNOSTIC MAMMOGRAM 3D/2D WIT H CAD: 10/23/2018 CLINICAL: /Pain. Current study was evaluated with a Senior Software Engineer Analytics d Detection (CAD) system. COMPARISON:Comparison is mad e to exams dated: 07/10/2017 mammogram, 03/28/2016 mammogram, 12/29/2014 mammogram, 11/22/2012 mammogram, 11/21/2011 mammogram, and 09/22/2010 mammogram - [facility]. TECHNIQUE: Digital Breast To mosynthesis was performed and utilized for Interpretation. GTX Messaging Version 1.3 was utilized for computer aided detection. FINDINGS: The tissue of both breasts i s heterogeneously dense, which could obscure detection of small masses. There is a benign mass in bentley th breasts. There also are benign vascular calcifications and calcifications in both breasts. No significant masses, calci fications, or other findings are seen in either breast. There has been no significant interval change. IMPRESSION: INCOMPLETE: NEEDS ADDITIONAL IMAGING EVALUATION RECOMMENDATION:There is no m ammographic abnormality seen in either breast to correspond with the pain, however, ultrasound is recommended. The results were reviewed with the patient. This exam was interpreted at [id number] for [facility]. SUMMARY: Ultrasound will be performed at this time; please see dedicated separate report. Luís stewart/uzielrad:10/23/2018 16:04:52 Financial Recording Clerk(s): Princess Beltrán [facility] Mammogram BI-RADS: 0 Indeterminate Ribs unilateral DX Study: Left rib series, 3 views 11/29/2017 [facility] Clinical Indication: - R07.89 Other chest mary n Comparison: None FINDINGS: Cardiac silhouette is normal in size. Left-sided dual-chamber pacemaker is present. Lungs are without consolidation or congestion. No pleural effusion or pneumothorax is seen. Multiple views of the left r ibs show no acute displaced rib fracture. No suspicious osseous lesion is seen. IMPRESSION: Unremarkable left rib series. SL: [id number] Chest 2 views DX Study: Chest 2 views DX [facility] Indication: - R07.89 Other chest mary n Comparison: Chest x-ray from 07/27/2015 FINDINGS: The cardiac silhou ette is normal in size. Left-sided dual-chamber pacemaker is stable. The lungs are clear and without consolidation or congestion. No pleural effusion or pneumothorax is seen. The osseous structures are unremarkable. IMPRESSION: No acute cardiopulmonary disease. SL: [id number] Knee 4+ views bilat DX Clinical Indication: - M25. 561 Pain in right knee, M25.562 Pain in left knee; 08/01/2017 [facility] Comparison: February 27, 2017. FINDINGS: AP, oblique, and lateral radiographs of the bila teral knees were obtained. No fracture or dislocation i s identified. Appropriate alignment of the right knee arthroplasty hardware components is noted. No perihardware lucency is seen. No joint effusion is noted. IMPRESSION: 1. Right knee arthroplasty hardware in appropria te alignment. 2. No acute fracture or dislocation in the bilat eral knees. SL: [id number] Breast Mammo Scrn SERGEI 07/10/2017 [facility] w stella incl CAD MA BILATERAL DIGITAL SCREENING MAMMOGRAM 3D/2D WITH CAD: 07/10/2017 CLINICAL: /Routine. Current study was evaluated with a Senior Software Engineer Analytics d Detection (CAD) system. COMPARISON:Comparison is mad e to exams dated: 03/28/2016 mammogram, 12/29/2014 mammogram, 11/22/2012 mammogram, 11/21/2011 mammogram, 09/22/2010 mammogram, and 10/27/2008 mammogram - [facility]. TECHNIQUE: Digital Breast To mosynthesis was performed and utilized for Interpretation. GTX Messaging Version 1.3 was utilized for computer aided detection. FINDINGS: The tissue of both breasts i s heterogeneously dense, which could obscure detection of small masses. Left cardiac device/pacemaker is unchanged. There is a benign mass in bentley th breasts. There also are benign vascular calcifications and calcifications in both breasts. No significant masses, calci fications, or other findings are seen in either breast. There has been no significant interval change. IMPRESSION: BENIGN RECOMMENDATION:There is no m ammographic evidence of malignancy. A 1 year screening mammogram is recommended.(07/11/2018) This exam was interpreted at [id number] for [facility]. Luís stewart/penrad:07/10/2017 13:20:51 Financial Recording Clerk(s): Princess Beltrán [facility] letter sent: BI-RADS 1/2 Dense Mammogram BI-RADS: 2 Benign Bone Density Scan Patient Name: JESUS JACOBS 05/21/2017 [facility] : 1945; Age: 71 years y/o Female MR: [id number] Study: Bone Density Scan 05/21/2017 11:24 AM VALIDATION ANALYST Clinical Indication: - M81. 0 Age-related osteoporosis without current pathological fracture. COMPARISON: October 07, 2008 FINDINGS: The axial lumbar bone minera l density is 93% of the expected age matched bone mass with a T-score -0.6. Axial lumbar average BMD is 0.98 g/cm2. This is decreased 3.9% when compared to the prior exam. The left femoral neck bone m ineral density is 75% of the expected age matched bone mass with a T-score of -1.9. Left femoral neck BMD is 0.65 g/cm2. The total femoral BMD is 0.85 g/cm2. This is increased 1.3% when compared to the prior exam. IMPRESSION: 1. Normal bone mineral density of the lumbar spi ne. 2. Osteopenia of the left femoral neck. The World Health [employer] n has established that OSTEOPOROSIS occurs at -2.5 or more standard deviations (SD) below peak bone mass. OSTEOPENIA (low bone mass) occurs at -1.0 standard deviations to -2.5 standard deviations below peak bone mass. SL: [id number] Knee 1-2 Views Patient Name: JESUS JACOBS 02/27/2017 [facility] unilateral DX : 1945; Age: 71 years y/o Female MR: [id number] * RIGHT KNEE, postoperative 2 views HISTORY: Right knee arthritis, status post right knee arthroplasty. Technique: Frontal and lateral radiographs of e right knee were obtained. FINDINGS: The right total kn ee prosthesis is in good position. There is no evidence of unexpected fracture or other complication. There is postoperative soft tissue gas. There are anterior surgical skin porfirio. IMPRESSION: 1. Status post right knee ar throplasty. The prosthesis is in good position without evidence of complication. SL: [id number] Chest/Abdomen wo IV Chest/Abdomen wo IV contrast CT 06/22/2016 [facility] contrast CT CLINICAL HX: Gastric Mass Pt states she has two opening into her stomach and they will be doing sx to close one. CT dose DLP 426 mGy-cm COMPARISON: 07/01/2015 TECHNIQUE: Contiguous transa xial images of the chest and abdomen were performed with oral contrast. Reformats are available in sagittal and coronal projections. CT CHEST: SUPPORT DEVICES: none LOWER NECK: Symmetric appearance of thyroid glan d without focal abnormality. LUNGS AND AIRWAYS: 4 mm gran uloma, left lower lobe. Minimal scarring/atelectasis, left lung base. The lungs and pleural spaces are otherwise clear. The trachea and the proximal bronchi are patent. CARDIOVASCULAR: The cardiac size is normal. Dual-lead left subclavian ICD is in place. The aorta demonstrates normal morphology. No evidence for dissection or aneurysm. LYMPH NODES: No significant mediastinal or hilar lymphadenopathy. Calcified lymph nodes are noted in the left hilar and subcarinal location. BONE AND SOFT TISSUE: No significant bony ab normality is noted. ESOPHAGUS: There is thickening of the wall of e distal esophagus. CT ABDOMEN: ABDOMINAL VISCERA: Noncontra st images of the liver are unremarkable. The pancreas and both adrenal glands are unremarkable in appearance. Splenic granulomata. Status post cholecystectomy. GI TRACT: There is contrast in the stomach and small bowel but no enteric contrast is noted in the esophagus. Gastroesophageal fistula demonstrated on recent endoscopy is not discernible on the current CT scan. There is no evidence for free fluid or free air in the abdomen. TRACT: The kidneys are unremarkable in appear ance. LYMPH NODES: No significant retroperitoneal lymp hadenopathy is noted. VASCULATURE: Mild atherosclerotic disease is no son in the aorta. No AAA. BONE AND SOFT TISSUES: Mild thoracolumbar spondylosis. No other significant bony abnormality is noted. IMPRESSION: Gastroesophageal fistula is not visible on the current scan. Thickening of the wall of the distal esophagus is noted, not significantly changed from previous CT of 07/01/2015. Evidence of old granulomatous disease in the tho rax and abdomen. SL: [id number] Barium Swallow w Patient Name: JESUS JACOBS 06/14/2016 [facility] Esophagus Function DX : 1945; Age: 70 years y/o Female MR: [id number] Study: Barium Swallow w Esophagus Function DX 06/14/2016 2:37 PM VALIDATION ANALYST Clinical Indication: R13.10 Dysphagia, [id number] Gastro-esophageal reflux disease without esophagitis COMPARISON: 07/06/2015. 06/30/2015. 2015. FLUOROSCOPY TIME: 5.[address] Radiation Dose DLP 108.6 mGy. TECHNIQUE: Thin barium was u tilized for recumbent prone oblique and LPO images. Thick barium was utilized for upright imaging of the esophagus and pharynx. Rj cracker mixed with barium was given to evaluate motility with solids. FINDINGS: There is no delay in passage of the barium bolus from the pharynx into the esophagus. The cricopharyngeus relaxes normally. There is no evidence for cricopharyngeal bar or Zenker's diverticulum. Prone and LPO images of the esophagus reveal moderate to severe delay in contrast passage through a narrowed distal esophagus. There are tertiary contractions. Upright images with thick ba rium reveals moderate to severe delay in contrast passage with tertiary contractions. There is pooling of contrast in the distal esophagus. Fistulous tract is again identifie d at the GE junction decreased in degree when co mpared to 06/30/2015. Subsequently 2 separate swal lows of a small piece of rj cracker and barium were fluoroscopically followed through the length of the esophagus. Moderate delay in contrast passage is noted with pooling in the distal esophagus. IMPRESSION: 1. Moderate to severe delay and dysmotility of contrast passage into the stomach with pooling in the distal esophagus. 2. Narrowed distal esophageal caliber. 3. Fistulous tract identifi ed at the GE junction decreased in degree when compared to 06/30/2015. These findings are communicated to Sera Valverde MD at 06/14/2016 4:36 PM VALIDATION ANALYST. [id number] Digital Mammo - DIGITAL MAMMO SCREENING SERGEI MA 03/28/2016 [facility] Screening Sergei [place] BILATERAL DIGITAL SCREENING MAMMOGRAM WITH CAD: 03/28/2016 CLINICAL: Routine. Current study was evaluated with a Senior Software Engineer Analytics d Detection (CAD) system. Comparison is made to exams dated: 12/29/2014 mammogram, 11/22/2012 mammogram, 11/21/2011 mammogram, 09/22/2010 mammogram and 10/07/2008 mammogram - [facility]. The tissue of both breasts i s heterogeneously dense, which could obscure detection of small masses. Left cardiac device/pacemaker is unchanged. There are benign vascular ca lcifications, calcifications and a mass in both breasts. No significant masses, calci fications, or other findings are seen in either breast. There has been no significant interval change. IMPRESSION: BENIGN There is no mammographic daphne dence of malignancy. A 1 year screening mammogram is recommended. Luís stewart/jose:03/28/2016 13:25:41 Financial Recording Clerk: Amarilis Jack, [facility] This exam was dictated and i nterpreted by [id number] for [facility]. letter sent: Normal [facility] Mammogram BI-RADS: 2 Benign Knee 1-2 Views EXAMINATION: Bilateral knees 1 to 2 views each. 02/21/2016 [facility] Bilateral DX HISTORY: Bilateral knee pain; right knee osteoar thritis FINDINGS: Frontal and latera l weightbearing views of each knee are performed without comparison. There are no fractures. Ther e is mild patellofemoral compartment joint space narrowing of the right knee. The joint spaces of the left knee appear preserved. There are no effusions. IMPRESSION: 1. Mild patellofemoral compartment osteoarthriti s of the right knee. 2. No acute fracture or substantial effusion of either knee. Chest 2 views DX Patient Name: JESUS JACOBS 07/27/2015 [facility] : 1945; Age: 69 years y/o Female MR: [id number] * CHEST, 2 views HISTORY: ; R05 Cough; COMPARISON: 07/02/2015. A [facility] computed tomography scan of 07/01/2015 was reviewed. TECHNIQUE: Frontal and lateral radiographs of th e chest were obtained. FINDINGS: The lungs are clear. There are no pleural effusions. The heart and pulmonary vasculature are within n ormal limits. A distal esophageal stent is noted. There is a dual-lead transvenous pacemaker. There are surgical clips in the right upper quadrant consistent with a prior cholecystectomy. There is very mild thoracolu mbar scoliosis and very mild degenerative changes involving the thoracic spine. The regional skeleton is otherwise unremarkable. IMPRESSION: 1. No active disease. 2. Distal esophageal stent is noted. 3. There is a left subclavian dual-lead transv enous pacemaker. 4. There are surgical clips in the right upper quadrant consistent with a prior cholecystectomy. SL: [id number] Barium Swallow w Barium Swallow w Esophagus Function DX 07/06/[address] [place] [address] Esophagus Function DX CLINICAL HISTORY: R13.10 Dys phagia, K22.2 Esophageal Stricture. Status post stent placement COMPARISON: 06/30/2015 TECHNIQUE: Water-soluble con trast was administered with the patient in the upright position. AP and oblique views of the esophagus, GE junction and stomach were subsequently performed. IMPRESSION: The stent is rogelio ropriately positioned. There is no significant delay in passage of the administered contrast from the esophagus, past the stent, and into the stomach. No extraluminal leakage of contrast is visualize d. IMPRESSION: Negative study. The stent is appropriately positioned. No fluoroscopic evidence to suggest leaks or obstruction. Fluoroscopy Time: 0.7 minutes [id number] Chest 1view DX Study: Chest 1view DX 07/02/2015 [facility] Clinical Indication: Tube placement/removal/repo sition Comparison: 07/02/2015 at 11:40 AM FINDINGS: The cardiac silhou ette is normal in size. The lungs are clear and without consolidation or congestion. No pleural effusion or pneumothorax is seen. Osseous structures are stable. Left-sided dual-chamber pacemaker is stable. New esophageal stent is seen in the region of the gastroesophageal junction. Retained contrast throughout the colon is seen. IMPRESSION: New esophageal stent in the region of the gastro esophageal junction. No acute disease. SL: [id number] Chest 2 views DX PA and lateral chest: Left s ubclavian dual-lead pacemaker is seen in satisfactory position. The cardiomediastinal silhouette, pulmonary vasculature and tatiana are within normal limits. The lungs and pleur 07/02/2015 [facility] al spaces are clear. There a re no significant osseous abnormalities. There has been interval removal of an esophageal stent since 08/11/2014. There is no other significant change. IMPRESSION: No acute radiographic abnormalities in the chest . [address] CHEST WITHOUT CONTRAST: 07/01/2015 [facility] HISTORY: Esophageal stricture. TECHNIQUE: Multislice axial acquisitions were done through the chest without contrast. Sagittal and coronal reformatted images were also obtained. FINDINGS: There is mild thic kening of the distal esophageal wall at the GE junction without other definite esophageal mass demonstrated. The findings are similar to the previous CT on 05/12/2014. There is no other mediastina l mass or significant lymph node enlargement. Subcentimeter calcified lymph nodes in the left hilum and subcarinal region are noted. Left subclavian pacemaker leads are noted in satisfactory position. There is a subcentimeter victor hugo cified granuloma in the right lower lobe. There are no other significant pulmonary or pleural abnormalities. There are no acute osseous a bnormalities. Degenerative changes in thoracic spine are noted. The gallbladder has been rem joao. Small opacities in region of the GE junction are consistent with previously ingested contrast. Barium in the colon is noted. IMPRESSION: 1. Thickening of the distal esophageal wall without other discrete esophageal mass. 2. No other acute CT abnormalities in the chest. 13 Barium Swallow w Barium swallow/ Video Esophagram 06/30/2015 [facility] Esophagus Function DX CLINICAL HISTORY: Dysphagia, status post f undoplication COMPARISON: 05/20/2014, 04/06/2014 TECHNIQUE: Thin barium was u tilized for prominent LPO images. Thick barium was utilized for upright imaging of the esophagus and pharynx. Hamburger meat with paste was given to evaluate motility with solids. FINDINGS: There is no delay in passage of bolus from the pharynx into the esophagus. The cricopharyngeus relaxes normally. There is no evidence for cricopharyngeal bar or Zenker's diverticulum. Prone individual swallows an d 2 successive swallows in the LPO position reveal moderate delay in passage of barium from the esophagus to the stomach. There is mild generalized narrowing at the GE juncti on consistent with patient's history of fundoplication. At the level of the diaphragm, the GE junction demonstrates more focal narrowing. In addition an extra channel extends from the posterior fundus of the stomach to th e distal esophagus. This is concerning for a fistula. No evidence for herniation of the fundoplication. Upright images of the esopha malena reveal no significant delay in passage of thin barium past the fundoplication. The fistulous tract is visible on the upright images as well. Subsequently 2 separate swal lows of a small piece of hamburger meat and barium barium paste were fluoroscopically followed through the length of the esophagus. There is moderate delay in passage of both solid boluses from the dist al esophagus past the GE junction into the stomach. IMPRESSION: Mild generalized narrowing of GE junction consistent with fundoplication with more focal narrowing at the level of the diaphragm. This may represent a stricture. Correlation with endoscopy is recommended. Fistulous tract is noted fro m the posterior fundus to the distal esophagus. This was likely present on the previous video esophagram although not as well demonstrated. Fluoroscopy Time: 3.1 minutes SL:13 Digital Mammo - DIGITAL MAMMO SCREENING SERGEI MA 12/29/2014 [facility] Screening Sergei MA BILATERAL DIGITAL SCREENING MAMMOGRAM WITH CAD: 12/29/2014 CLINICAL: Routine. Current study was evaluated with a [employer] d Detection (CAD) system. Comparison is made to exams dated: 11/22/2012 mammogram, 11/21/2011 mammogram, 09/22/2010 mammogram and 10/07/2008 mammogram - [facility]. The tissue of both breasts i s heterogeneously dense, which could obscure detection of small masses. Left cardiac device/pacemake r is unchanged. Patient complains of intermittent breast pain and/or tenderness. No suspicious mammographic correlate is present. There are benign vascular ca lcifications, calcifications and a mass in both breasts. No significant masses, calci fications, or other findings are seen in either breast. There has been no significant interval change. IMPRESSION: BENIGN Clinical management of the patient's breast comp laints is recommended. There is no mammographic daphne dence of malignancy. A 1 year screening mammogram is recommended. Luís stewart/penrad:12/30/2014 08:31:39 Financial Recording Clerk: Sobeida Lora, [facility] This exam was dictated and i nterpreted by [id number] for [facility]. letter sent: Normal [facility] Mammogram BI-RADS: [address] HISTORY: Urinary tract infection. 08/24/[address] [facility] [address] abdomen and pelvis performed without contrast . Visualized lung bases are cl ear. Visualized liver, spleen, pancreas, adrenal glands and kidneys demonstrate no significant finding. Prior cholecystectomy. There is no urinary tract ob struction or calculus. Kidneys and nondistended urinary bladder appear morphologically normal. No bowel obstruction or dist ention, free air or pathologic fluid otherwise. The appendix is not specifically demonstrated. There is no evidence for diverticulitis. Previous hysterectomy. No pathologic pelvic fluid. IMPRESSION: No significant finding. SL:13 Chest 2 views DX PA and LATERAL CHEST 08/11/2014 [facility] (2 views) HISTORY: Coughing Comparison is made to 06/03/2014. FINDINGS: 1. No evidence of an active or acute process or change from the prior study. There are no infiltrates or pleural effusions. 2. The heart is normal in size. There is no evid ence of failure. 3. Postoperative changes inv olving the gastroesophageal region. Also noted is a stent in the gastroesophageal region which is unchanged. 4. There are surgical clips in the right upper quadrant consistent with a prior cholecystectomy. 5. There is a left subclavian dual lead transven ous pacemaker. 6. Minimal degenerative marino ge involving the spine. There is mild dorsal kyphosis. There is minimal lower thoracic scoliosis, convexity to the right. Coding: Chest 2 views CPT Code: 37081 SL: 13 ([facility] [place]) Ronald Gaming M.D. Barium Swallow w EXAM: Esophagram 04/06/2014 [facility] Esophagus Function DX HISTORY: Hiatal hernia, nandini roesophageal reflux, hiatal hernia COMPARISON: Esophagram 03/29/2010 TECHNIQUE: The patient was g iven thin barium and hamburger coated with barium and video and multiple spot images were obtained. Fluoro time 4.2 minutes. FINDINGS: Deglutition appears normal. No pharyngeal abnormality seen. No cricopharyngeal bar seen. Esophageal motility is abnor mal using thin barium. In each swallow, nonocclusive peristalsis with to and fro motion and poor clearance of barium are observed; findings are more pronounced in supine pos ition with improved peristal sis in upright position but with persistent dysmotility and stasis of contrast at the esophagogastric junction. There is luminal irregularity at the esophagogastric junction. There is also poor clearance of hamburger at the esophagogastric junction requiring the patient to take sips of water for complete clearance. The esophagus is mildly dilated distally. No del ay in gastric emptying. IMPRESSION: 1. Moderate to marked esoph ageal dysmotility with poor clearance of liquid and hamburger most pronounced in supine position. 2. Luminal irregularity at the esophagogastric junction may reflect changes related to Lloyd fundoplication versus stricture. Consider upper endoscopy to further evaluate. SL:[address] CT head no contrast. 07/09/2013 [facility] COMPARISON: No priors. TECHNIQUE: Contiguous transa xial images of the brain were performed without administration of IV contrast. FINDINGS: There is no eviden ce for parenchymal bleed, extra-axial collections, intracranial masses or midline shift. No displaced fractures of the calvarium or other significant bony abnormality is noted. The cruz white matter differ entiation is well preserved. No acute infarct is evident. The visualized paranasal sinuses and the mastoids are clear. IMPRESSION: No significant acute brain abnormality is noted. SL:13 Spine cervical EXAMINATION: CT CERVICAL MYELOGRAM 07/07/2013 [facility] myelogram CT INDICATION: brachial neuritis. Neck pain. TECHNIQUE: Multiple contiguous axial CT scan of the cervical spine was performed. Additional sagittal and coronal views were obtained for better evaluation. FINDINGS: Optimal subarachnoid contrast opacific ation is present. There is straightening of th e cervical spine. Multilevel moderate to severe degenerative arthropathy with marked disc space narrowing, anterior endplate disc space spurring and degenerative disc disease . No Chiari malformation is present. Prevertebra l soft tissues are normal. At C2-C3, no acute disc herniation, severe spina l or foraminal stenosis. At C3-C4, small central disc protrusion is present with effacement of the anterior space and minimal anterior cord flattening. No significant foraminal stenosis is present. At C4-C5, prominent 9.0 mm t ransverse x 3.0 mm AP central disc protrusion is present causing mild cord flattening. Mild bilateral foraminal stenosis from uncovertebral hypertrophy and facet arthrosis. At C5-C6, mild posterior end plate ridging and disc osteophyte complex are present with effacement of the anterior CSF space. No significant cord contour abnormality is present. No significant foraminal stenosis detected. At C6-C7, no acute disc herniation, severe spina l or foraminal stenosis. At C7/T1, no acute disc herniation, severe spina l or foraminal stenosis. IMPRESSION: 1. Multilevel degenerative d isc disease and facet arthrosis, most pronounced at C4/C5 as detailed above. 2. No acute compression fracture or pathologic s ubluxation. SL: 12 Spine lumbar myelogram EXAMINATION: CT LUMBAR MYELOGRAM. [address] [place] [address] INDICATION: spinal stenosis of lumbar, lumbosacr al neuritis or radiculitis. TECHNIQUE: Multiple contiguous axial CT scan of the lumbosacral spine was performed. Additional sagittal and coronal reformatted images were obtained for better evaluation. COMPARISON: None. FINDINGS: Optimal contrast opacification of the subarachnoid space is present. The visualized distal cord i s unremarkable. The conus medullaris terminates normally in the thoracolumbar transition. The nerve roots are unremarkable. There is multilevel degenera tive disc disease consisting of disc space narrowing, degenerative disc desiccation, mild anterior endplate spurring, and disc bulges causing varying stenosis as below. At T12-L1, no acute disc herniation, severe spin al or foraminal stenosis. At L1-L2, no acute disc herniation, severe spina l or foraminal stenosis. At L2-L3, prominent 5.0 mm t ransverse midline attenuation is present posterior to the L2 vertebral body may represent superior disc extrusion from diffuse disc bulge or ligamentous thickening. No signif icant spinal or foraminal st enosis detected. Please correlate with neurologic symptoms. At L3-L4, mild diffuse disc bulge/protrusion. Mild bilateral lateral recess encroachment exacerbated by marked facet arthrosis. No significant foraminal stenosis detected. Please correlate with neurologic symptoms. At L4-L5, mild diffuse disc bulge/protrusion resulting in mild spinal stenosis exacerbated by marked facet arthrosis. No significant foraminal stenosis. Please correlate with neurologic symptoms. At L5-S1, mild bulging of th e posterior annulus abutting but not displacing the descending nerve roots. No significant spinal or foraminal stenosis. IMPRESSION: 1. Multilevel degenerative d isc disease and facet arthrosis, most prominent at L4-L5, L3-L4 and L2-L3 as detailed above. Please correlate with neurologic symptoms. 2. No definite acute compression fracture or pat hologic subluxation. SL: 12 Spine cervical CERVICAL MYELOGRAM 07/07/2013 [facility] CLINICAL HISTORY: 724.02 lumbar stenosis / 723 .0 cervical stenosis / 724.4 lbp / 723.1 neck pain. TECHNIQUE: After obtaining informed con sent from the patient regarding the risks and benefits of the procedure, she was prepped and draped in sterile fashion prone on the fluoroscopy table, and 1% lidocaine was in jected to the skin over the lumbar area for local anesthetic. Subsequently, a 22 gauge spinal needle was placed into the thecal sac at the L3-L4 interspace under fluoroscopic guidance. About 10 cc of Om nipaque-300 contrast materia l was then injected into the subarachnoid space without complication and migrated into the cervical spinal canal under gravity. No immediate complications were noted. FINDINGS: Moderate cervical spondylosis and facet arthrosis. Intraspinal contrast is noted in the cervical region. About 2.6 minutes of fluoro time was utilized. IMPRESSION: Moderate cervical spondylosis and facet arthrosi s. Injection of contrast material for the purposes of cervical myelography. CT imaging to follow. SL: 12 Spine lumbar myelogram LUMBAR MYELOGRAM 07/07/2013 [facility] CLINICAL HISTORY: 724.02 lumbar stenosis / 723 .0 cervical stenosis / 724.4 lbp / 723.1 neck pain. TECHNIQUE: After obtaining informed con sent from the patient regarding the risks and benefits of the procedure, she was prepped and draped in sterile fashion prone on the fluoroscopy table, and 1% lidocaine was in jected to the skin over the lumbar area for local anesthetic. Subsequently, a 22 gauge spinal needle was placed into the thecal sac at the L3-L4 interspace under fluoroscopic guidance. About 10 cc of Om nipaque 300 contrast material was then injected into the subarachnoid space. No immediate complications were noted. FINDINGS: Multiple prominent posterior disc protrusions are present causing prominent indentation on the anterior anterior thecal sac. About 2.6 minutes of fluoro time was utilized. IMPRESSION: Degenerative disc disease an d facet arthrosis with prominent posterior disc protrusions as above. Injection of contrast material for the purposes of myelography. CT imaging to follow. Breast US - BREAST US 06/19/2013 [facility] ULTRASOUND OF BOTH BREASTS AND BOTH AXILLA: 2013 CLINICAL: Mass. Comparison is made to exam d ated: 12/26/2012 ultrasound - [facility]. Color flow and real-time ult rasound of both breasts and both axilla were performed. Cruz scale images of the real-time examination were reviewed. There is a stable 5 mm benig n appearing round shaped hypoechoic complex cyst with a smooth margin with internal echoes right breast at 12 o'clock in the sub- areolar depth. There also are stabl e calcified 1.3 - 1.5 cm geovanna ign appearing oval shaped mixed echogenic fibroadenomas with a lobulated margin with posterior shadowing right breast at 3 and 9 o'clock in the middle depth that are not significantly changed a nd correlate with mammography. Additionally there is a stable small benign appearing oval shaped hypoechoic nodule with a circumscribed margin right breast at 9 o'c lock central to the nipple i n the lateral aspect that is not significantly changed. There also are two stable sm all benign appearing oval shaped hypoechoic complex cysts with a circumscribed smooth margin with internal echoes and posterior enhancement left breast at 12 o'clock in the anterior depth that are not significantly changed. Additionally there is a stable benign oval shaped hypoechoic fibroadenoma with a circumscribed margin with posterior shadowing left breast at 2 o'clock (previously descri bed at 12 o'clock) in the anterior depth in the upper inner quadrant that is not significantly changed. There also are stable 5 mm benign appearing oval sh aped hypoechoic complex cyst s with a smooth margin with internal echoes and posterior enhancement left breast at 6 and 9 o'clock in the anterior depth that are not significantly changed. There also is a small post surgic al scar with coarse calcifications and architectural distortion left breast at 11 o'clock in the middle depth in the upper outer quadrant. This was not imaged on the prior ultrasound and appears densely calcified. No abnormalities were seen sonographically in ei ther axilla. IMPRESSION: BENIGN There is no sonographic evidence of malignancy. A screening mammogram in one year is recommended . Gaudencio Madden sns/:06/19/2013 16:25:57 Financial Recording Clerk: Vladimir Sampson, [facility] This exam was dictated and i nterpreted by [id number] at [facility], SL 13. letter sent: Bilateral Benign Ultrasound BI-RADS: 2 Benign Chest/Abdomen with CT CHEST AND ABDOMEN WITH CONTRAST: [address] [facility] [address] TECHNIQUE: Axial images of t he chest and abdomen were done with IV and oral contrast. The patient was pretreated with steroids and Benadryl for a history of previous contrast reaction. The patient tolerated the study well without allergic reaction. FINDINGS: There are changes involving the proximal stomach just below the GE junction which are stable compared to 04/03/2012, likely representing prior hernia repair with fundoplication. A mass in this location is not excluded. T here is mild dilatation of the distal esophagus with mild thickening of the distal esophageal wall. There is no obstruction. No extraluminal mass is seen . There is no significant lymph node enlargement in the abdomen or mediastinum. The remainder of the stomach and visible GI tract are unremarkable. There are no significant pul monary or pleural abnormalities. The liver, spleen, pancreas, kidneys and adrenal glands show no significant abnormalities. The gallbladder has been removed. There is no evidence of biliary dilatation. IMPRESSION: 1. Stable changes in the sto mach consistent with hernia repair. A mass is not excluded. Correlation with the endoscopic findings is suggested. 2. No other acute CT abnormalities in the chest or abdomen. SL:13 Breast US - BREAST US 12/26/2012 [facility] ULTRASOUND OF BOTH BREASTS : 12/26/2012 CLINICAL: Dense. Comparison is made to exams dated: 11/22/2012 mammogram, 11/21/2011 mammogram, 09/22/2010 ultrasound, 09/22/2010 mammogram and 10/07/2008 mammogram - [facility]. Color flow and real-time ult rasound were performed on both breasts. Cruz scale images of the real-time examination were reviewed. There are various sized fam gn scattered simple and minimally complicated cysts both breasts that are not significantly changed. There also are two stable benign fibroadenomas with coarse calcification s right breast at 3 and 9 o' clock that correlate with mammography. Additionally there is a probably benign oval shaped mass with a circumscribed margin both breasts at 9 o'clock that is an incidental finding. T he right mass measures 4 mm while the left mass measures 7 mm. No abnormalities were seen sonographically in ei ther axilla. IMPRESSION: PROBABLY BENIGN - FOLLOW-UP RECOMMEN DED The subcentimeter bilateral masses are probably benign and follow up is recommended. These likely represent complicated cysts. Bilateral benign cysts and right breast fibroade nomas. A follow-up bilateral ultras ound in 6 months is recommended to demonstrate stability. SUMMARY: SL: 13. Luís stewart/:12/26/2012 17:10:30 Financial Recording Clerk: Alida [facility] letter sent: Followup Ultrasound BI-RADS: 3 Probably benign Consultation Notes No Data Provided for This Section Discharge Summaries No Data Provided for This Section History and Physicals No Data Provided for This Section Vital Signs Vital Sign Value Date Comments Source Respitory Rate 15 04/08/2019 [facility] Systolic (mm Hg) 144 04/08/2019 [facility] t Diastolic (mm Hg) 64 04/08/2019 [facility] Respitory Rate 17 04/08/2019 [facility] Systolic (mm Hg) 138 04/08/2019 [facility] t Diastolic (mm Hg) 58 04/08/2019 [facility] Respitory Rate 20 04/08/2019 [facility] Systolic (mm Hg) 138 04/08/2019 [facility] t Diastolic (mm Hg) 58 04/08/2019 [facility] Weight 60.909 04/08/2019 [facility] BMI Calculated 25.37 04/08/2019 [facility] Heart Rate 78 04/08/2019 [facility] Height 154.94 cm 04/07/2019 [facility] Systolic (mm Hg) 172 11/22/2017 [facility] Diastolic (mm Hg) 72 11/22/2017 [facility] Systolic (mm Hg) 148 11/22/2017 [facility] Diastolic (mm Hg) 67 11/22/2017 [facility] Respitory Rate 19 11/22/2017 [facility] Systolic (mm Hg) 148 11/22/2017 [facility] Diastolic (mm Hg) 65 11/22/2017 [facility] Respitory Rate 20 11/22/2017 [facility] Respitory Rate 23 11/22/2017 [facility] Heart Rate 67 11/22/2017 [facility] BMI Calculated 24.82 11/22/2017 [facility] Weight 59.574 11/22/[address] [facility] Height 154.94 cm 11/20/2017 [facility] Systolic (mm Hg) 137 03/01/2017 [facility] Diastolic (mm Hg) 69 03/01/[address] [address] Temperature Oral (F) 99.0 F 03/01/2017 [facility] 83 03/01/2017 [facility] Systolic (mm Hg) 156 03/01/2017 [facility] Diastolic (mm Hg) 72 03/01/[address] Heart Rate 79 03/01/2017 [facility] Temperature Oral (F) 97.9 F 03/01/2017 [facility] Rate 80 03/01/2017 [facility] Temperature Oral (F) 98.3 F 03/01/2017 [facility] Systolic (mm Hg) 181 03/01/2017 [facility] Diastolic (mm Hg) 82 03/01/[address] Respitory Rate 16 03/01/2017 [facility] Respitory Rate 18 03/01/2017 [facility] Respitory Rate 17 03/01/2017 [facility] BMI Calculated 24.91 02/22/2017 [facility] Weight 57.864 02/22/2017 [facility] Height 152.4 cm 02/22/2017 [facility] Respitory Rate 12 02/14/2017 [facility] Systolic (mm Hg) 195 02/14/2017 [facility] Diastolic (mm Hg) 74 02/14/[address] Systolic (mm Hg) 152 02/14/2017 [facility] Diastolic (mm Hg) 69 02/14/[address] Respitory Rate 20 02/14/2017 [facility] Systolic (mm Hg) 124 02/14/2017 [facility] Diastolic (mm Hg) 72 02/14/[address] Respitory Rate 16 02/14/2017 [facility] Heart Rate 62 02/14/2017 [facility] BMI Calculated 24.8 02/13/2017 [facility] Height 154.94 cm 02/13/2017 [facility] Weight 59.545 02/13/2017 [facility] Systolic (mm Hg) 176 08/23/2016 [facility] Diastolic (mm Hg) 80 08/23/[address] Respitory Rate 17 08/23/2016 [facility] Systolic (mm Hg) 176 08/23/2016 [facility] Diastolic (mm Hg) 76 08/23/[address] Respitory Rate 21 08/23/2016 [facility] Respitory Rate 13 08/23/2016 [facility] Systolic (mm Hg) 165 08/23/2016 [facility] Diastolic (mm Hg) 77 08/23/[address] Height 154.94 cm 08/22/2016 [facility] BMI Calculated 24.61 08/22/2016 [facility] Weight 59.091 08/22/2016 [facility] Respitory Rate 23 06/19/2016 [facility] Respitory Rate 23 06/19/2016 [facility] Systolic (mm Hg) 122 06/19/2016 [facility] Diastolic (mm Hg) 59 06/19/[address] Respitory Rate 18 06/19/2016 [facility] Systolic (mm Hg) 108 06/19/2016 [facility] Diastolic (mm Hg) 55 06/19/[address] Weight 59.091 06/19/2016 [facility] Height 154.94 cm 06/19/2016 [facility] BMI Calculated 24.61 06/19/2016 [facility] Systolic (mm Hg) 174 06/19/2016 [facility] Diastolic (mm Hg) 68 06/19/[address] Systolic (mm Hg) 133 02/15/2016 [facility] Diastolic (mm Hg) 68 02/15/[address] Respitory Rate 11 02/15/2016 [facility] Systolic (mm Hg) 91 02/15/2016 [facility] Diastolic (mm Hg) 79 02/15/[address] Respitory Rate 18 02/15/2016 [facility] Systolic (mm Hg) 148 02/15/2016 [facility] Diastolic (mm Hg) 70 02/15/[address] Respitory Rate 20 02/15/2016 [facility] Heart Rate 60 02/07/2016 [facility] Temperature Oral (F) 98.1 F 02/07/2016 [facility] BMI Calculated 25.21 02/07/2016 [facility] Weight 60.511 02/07/2016 [facility] Height 154.94 cm 02/07/2016 [facility] Systolic (mm Hg) 105 09/28/2015 [facility] Diastolic (mm Hg) 51 09/28/[address] Systolic (mm Hg) 116 09/28/2015 [facility] Diastolic (mm Hg) 54 09/28/[address] Systolic (mm Hg) 113 09/28/2015 [facility] Diastolic (mm Hg) 46 09/28/[address] Respitory Rate 24 09/28/2015 [facility] Respitory Rate 28 09/28/2015 [facility] Respitory Rate 16 09/28/2015 [facility] Height 154.94 cm 09/28/2015 [facility] BMI Calculated 24.05 09/28/2015 [facility] Weight 57.727 09/28/2015 [facility] Temperature Oral (F) 97.9 F 09/28/2015 [facility] Heart Rate 61 09/28/2015 [facility] Systolic (mm Hg) 149 07/07/2015 [facility] Diastolic (mm Hg) 84 07/07/[address] Respitory Rate 18 07/07/2015 [facility] Temperature Oral (F) 98.4 F 07/07/2015 [facility] Heart Rate 64 07/07/2015 [facility] Respitory Rate 19 07/07/2015 [facility] Heart Rate 62 07/07/2015 [facility] Systolic (mm Hg) 164 07/07/2015 [facility] Diastolic (mm Hg) 76 07/07/[address] Temperature Oral (F) 98.3 F 07/07/2015 [facility] Temperature Oral (F) 98.5 F 07/07/2015 [facility] Heart Rate 67 07/07/2015 [facility] Respitory Rate 19 07/07/2015 [facility] Systolic (mm Hg) 161 07/07/2015 [facility] Diastolic (mm Hg) 79 07/07/[address] BMI Calculated 23.29 07/06/2015 [facility] Weight 55.909 07/06/2015 [facility] Height 154.94 cm 07/06/2015 [facility] Respitory Rate 20 07/03/2015 [facility] Systolic (mm Hg) 128 07/03/2015 [facility] Diastolic (mm Hg) 45 07/03/[address] Systolic (mm Hg) 129 07/02/2015 [facility] Diastolic (mm Hg) 44 07/02/[address] Respitory Rate 17 07/02/2015 [facility] Respitory Rate 16 07/02/2015 [facility] Systolic (mm Hg) 144 07/02/2015 [facility] Diastolic (mm Hg) 43 07/02/[address] Heart Rate 61 07/02/2015 [facility] Temperature Oral (F) 97.9 F 07/02/2015 [facility] Weight 57.545 07/02/2015 [facility] BMI Calculated 23.97 07/02/2015 [facility] Height 154.94 cm 07/02/2015 [facility] Systolic (mm Hg) 129 08/11/2014 [facility] Diastolic (mm Hg) 60 08/11/[address] Systolic (mm Hg) 93 08/11/2014 [facility] Diastolic (mm Hg) 69 08/11/[address] Systolic (mm Hg) 142 08/11/2014 [facility] Diastolic (mm Hg) 69 08/11/[address] Respitory Rate 16 08/11/2014 [facility] Respitory Rate 16 08/11/2014 [facility] Respitory Rate 14 08/11/2014 [facility] Heart Rate 60 08/11/2014 [facility] Temperature Oral (F) 98.1 F 08/11/2014 [facility] Weight 58.182 08/11/2014 [facility] BMI Calculated 24.24 08/11/2014 [facility] Height 154.94 cm 08/11/2014 [facility] Diastolic (mm Hg) 63 05/20/[address] Systolic (mm Hg) 109 05/20/2014 [facility] Respitory Rate 18 05/20/2014 [facility] Heart Rate 67 05/20/2014 [place] Temperature Oral (F) 99.7 F 05/20/2014 [facility] Heart Rate 72 05/20/2014 [facility] Diastolic (mm Hg) 53 05/20/[address] Systolic (mm Hg) 113 05/20/2014 [facility] Heart Rate 68 05/20/2014 [facility] Systolic (mm Hg) 99 05/20/2014 [place] Diastolic (mm Hg) 53 05/20/[address] Respitory Rate 18 05/20/2014 [facility] Temperature Oral (F) 98.7 F 05/20/2014 [facility] Temperature Oral (F) 98.5 F 05/20/2014 [facility] [place] Respitory Rate 19 05/20/2014 [facility] Height 154.94 cm 05/19/2014 [facility] Weight 62.273 05/19/2014 [facility] BMI Calculated 25.94 05/19/2014 [facility] BMI Calculated 25.37 05/19/2014 [place] Weight 60.909 05/19/2014 [facility] Height 154.94 cm 05/19/2014 [facility] Respitory Rate 16 04/28/2014 [facility] Systolic (mm Hg) 110 04/28/2014 [place] Diastolic (mm Hg) 58 04/28/[address] Diastolic (mm Hg) 53 04/28/[address] Systolic (mm Hg) 119 04/28/2014 [place] [facility] Respitory Rate 14 04/28/2014 [facility] Diastolic (mm Hg) 40 04/28/[address] Systolic (mm Hg) 103 04/28/2014 [place] Respitory Rate 14 04/28/2014 [facility] Weight 60.909 04/27/2014 [facility] BMI Calculated 25.37 04/27/2014 [facility] Height 154.94 cm 04/27/2014 [facility] Height 175.26 cm 04/08/2014 [facility] BMI Calculated 34.78 04/08/2014 [facility] Weight 106.818 04/08/2014 [facility] Diastolic (mm Hg) 65 07/09/[address] Systolic (mm Hg) 181 07/09/2013 [place] Respitory Rate 18 07/09/2013 [facility] Diastolic (mm Hg) 57 07/09/[address] Respitory Rate 18 07/09/2013 [facility] Systolic (mm Hg) 168 07/09/2013 [place] Diastolic (mm Hg) 73 07/09/[address] Systolic (mm Hg) 190 07/09/2013 [place] Respitory Rate 25 07/09/2013 [facility] Weight 54.545 07/09/2013 [facility] Height 154.94 cm 07/09/2013 [facility] BMI Calculated 22.72 07/09/2013 [facility] Heart Rate 73 07/09/2013 [facility] Temperature Oral (F) 97.8 F 07/09/2013 [facility] [place] Respitory Rate 17 12/23/2012 [facility] Systolic (mm Hg) 124 12/23/2012 [place] [facility] Diastolic (mm Hg) 62 12/23/[address] [facility] st Respitory Rate 16 12/23/2012 [facility] Systolic (mm Hg) 132 12/23/2012 [facility] t Diastolic (mm Hg) 54 12/23/[address] [facility] st Respitory Rate 15 12/23/2012 [facility] Diastolic (mm Hg) 54 12/23/[address] [facility] st Systolic (mm Hg) 127 12/23/2012 [facility] 58.182 12/20/2012 [facility] Height 154.94 cm 12/20/2012 [facility] Encounters Location Location Encounter Encounter Reason Attending ADM DC Stat us Source Details Type Number For Provider Date Date Visit AUDIT [id number] 10/15 10/16 [place] /2012 Lluvia ans BENTLEY [id number] [facility] 12/23 12/23 Discharg [facility] 4 ed [facility] Outpatient [id number],[id number] GUTIERREZ 12/26 Activ e [place] 3 93.80, JEREMIAH [facility] ABNORMAL st MAMMOGRA M Outpatient [id number] GE [facility] 12/27 Active [facility] 5 JUNCTION [facility] e[facility] [place] [facility] Outpatient [id number] 793.80 GUTIERREZ 06/19 06/19 Active [facility] 6 ABNORMAL JEREMIAH [facility] ea [facility] M Outpatient [id number] 724.4 / GERALDO 07/07 Active [facility] 7 723.4 [facility] Emergency [id number] SERGIO ELLEN 07/09 07/09 Disc harg [facility] ed [facility] EC [id number] _MAPID:E Sergio Ellen 07/09 07/09 [facility] 8 [id number] NCNTRRFV /2013 [facility] [id number] [facility], [id number] 10/14 10/16 [place] Provider: /2013 Noah Watson, Status: Pen, Time: 9:00 AM [facility] [id number] [facility] 04/06 04/07 [facility] 9 [facility] Bedded [id number] [facility] 04/28 04/28 [facility] Outpatient 0 [facility] OBS [id number] Gutierrez 05/19 05/20 [facility] Observation [address] [facility] Patient [facility] Outpatient [id number] [facility] 06/03 06/04 [facility] 1 [facility] OBS Day [id number] Jodee 08/11 08/11 [facility] Surgery 3 [facility] Outpatient [id number] Chase 08/24 08/25 [facility] 4 [facility] Outpatient [id number] Gutierrez 12/29 12/30 [facility] 5 Jeremiah [facility] Outpatient [id number] [facility] 06/30 07/01 [facility] 6 [facility] Outpatient [id number] [facility] 07/01 07/02 [facility] 7 [facility] OBS Day [id number] [facility] 07/02 07/02 [facility] 8 [facility] Outpatient [id number] [facility] 07/06 07/07 [facility] 9 [facility] OBS [id number] Gutierrez 07/06 07/07 [facility] [place] Observation 4 Jeremiah Sout oral [facility] Outpatient [id number] Gutierrez 07/26 07/27 [facility] 5 Jeremiah [facility] Bedded [id number] [facility] 09/27 09/27 M [facility] Outpatient 0 [facility] Bedded [id number] Zeb 02/14 02/14 [facility] Outpatient 2 Muoneydaopadh [facility] Outpatient [id number] XRAY VISIT 02/20 Acti ve Memoria l [place] Outpatient [id number] XRAY VISIT 02/20 Acti ve Memoria l [facility] Outpatient [id number] Gutierrez 03/28 03/29 [facility] 3 Jeremiah /2015 [facility] Outpatient [id number] [facility] 06/14 06/15 [facility] 4 [facility] Bedded [id number] Jodee 06/19 06/19 M [facility] Outpatient 5 [facility] Outpatient [id number] [facility] 06/22 06/23 [facility] 6 [facility] Bedded [id number] Juan 08/23 08/23 [facility] Outpatient 7 [facility] Bedded [id number] Juan 02/14 02/14 [facility] Outpatient 9 [facility] Inpatient [id number] Henry Crump 02/27 03/01 [facility] Outpatient [id number] Gutierrez 05/21 05/22 [facility] 0 Jeremiah /2017 [facility] Outpatient [id number] Gutierrez 07/10 07/11 [facility] 1 Jeremiah [facility] Outpatient [id number] Cassy Hodges 08/01 08/02 [facility] 0 /2017 [facility] Day Surgery [id number] Brendan Bose 11/22 11/23 [facility] 2 [facility] Outpatient [id number] Gutierrez 11/29 11/30 [facility] 0 Jeremiah /2017 [facility] Outpatient [id number] Yazmin 10/23 10/24 [facility] 3 Matias [facility] Outpatient [id number] [facility] 04/07 04/08 [facility] 4 [facility] Bedded [id number] [facility] 04/08 04/08 M [facility] Outpatient 5 [facility] Outpatient [id number] [facility] 05/20 05/21 [facility] 6 [facility] Procedures Procedure Code Date Perfomer Comments Source Stent removal [id number] [address],[facility] Esophagogastroduoden [id number] with removal of [facility] oscopy<sup>1</sup> 5 esophageal Medica l stent Center,[facility] Operation [id number] [address],[facility] Lloyd [id number] [facility] fundoplication 0 [facility] [place],[facility] Lloyd [id number] [facility] fundoplication 0 Colon [id number] colon resection [facility] operation<sup>2</sup 2 for colon Medi victor hugo > cancer-no chemo [place],[facility] radiation [facility] needed. Colon operation [id number] 5colon [facility] ast <sup>5</sup> 2 resection for colon cancer-no chemo or radiation needed. Colon [id number] colon resection [facility] operation<sup>1</sup 2 for colon > cancer-no chemo or radiation needed. Appendectomy<sup>3</ [id number] 10 years of age [facility] Breast [id number] removal of [facility] operation<sup>4</sup benign tumors M edical > from both [place], breasts about [place] 1960 and 1968 Cardiac pacemaker [id number] August 2009 [facility] procedure<sup>5</sup Medi victor hugo > Center,[facility] [id number] 1961, 1963, [facility] section<sup>6</sup> 1967 Medic al [place],[facility] Colonoscopy<sup>7</s [id number] multiple [facility] exas up> [facility] Esophagogastroduoden [id number] x2 [facility] oscopy<sup>8</sup> Medica l [place],[facility] Hysterectomy<sup>9</ [id number] in early 30's [facility] Insertion of [id number] 06/2015 [facility] esophageal Medical stent<sup>10</sup> Center ,[facility] Laparoscopic [id number] 1993 [facility] cholecystectomy<sup> Medi victor hugo 11</sup> Center,[facility] Hysterectomy<sup>8</ [id number] in early 30's [facility] sup> Insertion of [id number] 06/2015 [facility] esophageal stent<sup>9</sup> Laparoscopic [id number] 1992 [facility] cholecystectomy<sup> 10</sup> Appendectomy [id number] 89 years of [facility] st <sup>1</sup> age Breast operation [id number] 2removal of [place] <sup>2</sup> benign tumors from both breasts about 1960 and 1968 Cardiac pacemaker [id number] 3April 2009 [facility] procedure <sup>3</sup> section [id number] , 1963, [facility] theast <sup>4</sup> 1966 Hysterectomy [id number] 6in early 30's [employer] <sup>6</sup> Laparoscopic [id number] 24373 [facility] cholecystectomy <sup>7</sup> Knee replacement [id number] [facility] Laparoscopic [id number] 1992 [facility] cholecystectomy<sup> 9</sup> Appendectomy<sup>2</ [id number] 10 years of age [facility] sup> Breast [id number] removal of [facility] operation<sup>3</sup benign tumors > from both breasts about 1960 and 1968 Cardiac pacemaker [id number] August 2009 [facility] heast procedure<sup>4</sup > [id number] 1961, 1963, [facility] section<sup>5</sup> 1966 Hysterectomy<sup>6</ [id number] in early 30's [facility] sup> Laparoscopic [id number] 1992 [facility] cholecystectomy<sup> 7</sup> Assessment and Plan Assessment and Plan Date Source Extracted from:Title: Clinical Document 07/02/2015 [facility] Author: Jodee Valverde MD Date: 07/02/15 PATIENT NAME: JESUS JACOBS DATE OF OPERATION/PROCEDURE: 07/02/2015 *_*_* PREOPERATIVE DIAGNOSES: 1. Status post redo transabdominal Niss en fundoplication and repair of diaphragmatic hiatal hernia with mesh in 01/2010 2. Dysphagia, esophagogastric fistula 3. S/P upper endoscopy, placement of th e esophageal stent, 6-cm length, 18 mm diameter, Endochoice on 05/19/2014 4. S/P upper endoscopy, removal of the esophageal stent, 6-cm length, 18 mm diameter, Endochoice 08/11/2014 5. Recurrent symptoms of regurgitation and dysphgia POSTOPERATIVE DIAGNOSES: 1. Status post redo transabdominal Niss en fundoplication and repair of diaphragmatic hiatal hernia with mesh in 01/2010 2. Dysphagia, esophagogastric fistula 3. S/P upper endoscopy, placement of th e esophageal stent, 6-cm length, 18 mm diameter, Endochoice on 05/19/2014 4. S/P upper endoscopy, removal of the esophageal stent, 6-cm length, 18 mm diameter, Endochoice 08/11/2014 5. Recurrent symptoms of regurgitation and dysphgia PROCEDURE PERFORMED: Upper endoscopy, placement of esophageal stent, 8-cm length, 18 mm diameter, Endochoice SURGEON: Jodee Valverde ASSITANT: Yonny Lino INDICATION FOR PROCEDURE: Patient is a 69-year-old female who unde rwent a redo transabdominal Lloyd fundoplication and repair of diaphragmatic hiatal hernia with mesh for a herniated twisted wrap on 01/13/2010. She did well after surgery until 05/2014 when she was diag nosed with esophagogastric fistula which was treated by placement of an esophageal stent. The stent was then removed on 08/11 2014. Patient was asymptomatic until four weeks ago we presented with recurr ent symptoms of regurgitating and dysphagia. The video esophagram showed a posterior connection between the esophagus and the stomach parallel to the true gastroe sophageal lumen. Ct scan showed no evide nce of mass at the level of gastroesophageal junction. The plan was to place an esophageal sten t in the true gastroesophageal lumen. The risks of this procedure including infection, bleeding, perforation, sepsis, , recurrent dysphagia and were al l explained to the patient. She understood and agreed to pr oceed. PROCEDURE: Patient was brought to the operating vic m and was placed on the operating table in the supine position. After undergoing general endotracheal anesthesia, an upper endoscopy was performed. There was a v isible true gastroesophageal junction. T here was small and lateral lumen which connected the esophagus and the stomach. Under fluoroscopic guidance, the wire was passed. The true gastroesophageal juncti on was marked at 35 cm and 3 cm distal t o the gastroesophageal junction was marked at 38 cm. An esophageal stent, 8-cm length, 18 mm diameter, Endochoice was deployed without any difficulty. The scope was reinserted and the top of the stent was at 30 cm and distal end was at 38 into the stomach distal to the gastroesophageal junction. The small second lumen was fully covered. The patient tolerated the procedure well , was extubated and transferred to post anesthesia recovery room without any complication. I was present for entire procedure. Extracted from:Title: Clinical Document 08/11/2014 [facility] Author: Jodee Valverde MD Date: 08/11/14 PATIENT NAME: JESUS JACOBS DATE OF OPERATION/PROCEDURE: 08/11/2014 *_*_* PREOPERATIVE DIAGNOSES: 1. Status post redo transabdominal Niss en fundoplication and repair of diaphragmatic hiatal hernia with mesh in 01/2010 2. Dysphagia. 3. S/P Upper endoscopy, placement of th e esophageal stent, 6-cm length, 18 mm diameter, Endochoice on 05/19/2014 POSTOPERATIVE DIAGNOSES: 1. Status post redo transabdominal Niss en fundoplication and repair of diaphragmatic hiatal hernia with mesh in 01/2010 2. Dysphagia. 3.3. S/P Upper endoscopy, placement of the esophageal stent, 6-cm length, 18 mm diameter, Endochoice on 05/19/2014 PROCEDURE PERFORMED: Upper endoscopy, removal of the esophage al stent, 6-cm length, 18 mm diameter, Endochoice SURGEON: Jodee Valverde INDICATION FOR PROCEDURE: Patient is a 68-year-old female who unde rwent a redo transabdominal Lloyd fundoplication and repair of diaphragmatic hiatal hernia with mesh for a herniated twisted wrap on 01/13/2010. Patient has done w ell until about 5 months ago where she p resented with recurrent dysphagia to solids and liquids. CT scan of the chest showed no evidence of mass. 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 The plan was to perform an esophageal st ent in the true gastroesophageal lumen. She underwent an upper endoscopy, placement of the esophageal stent, 6-cm length, 18 mm diameter, Endochoice on 5. She has done well and is here for removal of the stent. The risks of this procedure including in fection, bleeding, perforation, sepsis, , recurrent dysphagia and were all explained to the patient. She understood and agreed to proceed. PROCEDURE: Patient was brought to the operating vic and was placed on the operating table in the supine position. After undergoing general endotracheal anesthesia, an upper endoscopy was performed. The top of th e stent was at 31 cm and the distal end was at 37 into the stomach distal to the gastroesophageal junction. The stent was removed without difficulty. The scope was reinserted. The GEJ was wi de open. The second lumen seemed to be obliterated and was not visible. The patient tolerated the procedure well , was extubated and transferred to postanesthesia recovery room without any complication. I was present for entire procedure and performed the procedure from beginning to the end. Extracted from:Title: Clinical Document Author: Jodee Valverde MD Date: 08/11/14 DX: dysphagia, esophageal strciture, s/p esophageal stent Procedure: EGD, removal of esophageal stent Activity: As tolerated Diet: Soft esophageal, advance as tolerated Followup in clinic as needed Call office , [phone], if chest pain, fever and chills Extracted from:Title: Clinical Document 05/20/2014 [facility] Author: Jodee Valverde MD Date: 05/20/14 Feels better Afebrile Tolerating a full liquid diet Videoesophargam shows passage of the con trast without difficulty into the stomach A/P: S/P esophageal stent placement Improving D/C home today F/U in three months for stent removal Plan of Care No Data Provided for This Section Social History Social History Date Source Social History TypeResponse 04/27/2014 [facility] Substance Abuse Use: None. Alcohol Never Smoking Status Never smoker; Type: Cigarettes; Exposure to Tobacco Smoke None; Cigarette Smoking Last 365 Days No; Reg Smoking Cessation Counseling No entered on: 11/22/17 Social History TypeResponse 04/27/2014 [facility] Alcohol Never Substance Abuse Use: None. Smoking Status Never smoker; Exposure to Tobacco Smoke None; Cigarette Smoking Last 365 Days No; Reg Smoking Cessation Counseling No entered on: 04/07/19 Family History No Data Provided for This Section Advance Directives Order Name Results Value Date Source Advance Directives Advance Directives No Advance 10/16/2012 [place] [facility] Directives available. Functional Status No Data Provided for This Section
--- OUTSIDE RECORDS SUMMARY | 2019-12-11 09:51 | XMS REPORT | Continuity of Care Document ---
:1945 Author Organization [facility] t Address [address] [place] [address] Care Team Providers Name Role Phone Asked, Pcp Primary Care Physician Unavailable Joslyn Gleason DO Attending Clinician Pob, Lab Main Attending Clinician Unavailable Doctor Unassigned, Name Attending Clinician Unavailable Yesica Wiseman Attending Clinician Hilaria MCNAIR Attending Clinician Abram Attending Clinician ABRAM Attending Clinician Unavailable ELVIE Attending Clinician Unavailable Yesica Salcedo Attending Clinician Jeremiah Attending Clinician Hernán Bose Attending Clinician MARJ Attending Clinician Unavailable Richard Hodges Attending Clinician Francisco Crump Attending Clinician Camilo Briseno Attending Clinician Billy Musa Attending Clinician You Swartz Attending Clinician Eleazar Hughes Attending Clinician Yesica Salcedo Admitting Clinician Jeremiah Admitting Clinician Richard Hodges Admitting Clinician Francisco Crump Admitting Clinician [place] Admitting Clinician Payers Payer Name Policy Policy Number Effective Expiration Source Type Date Date HUMANAHUMANA MCR xxxxxxxxx 2019 Toan [id number] 00:00:00 Met elliotist /05/2018[facility] MEDICAREMEDICARE PART xxxxxxxxxxx 2008 Artie Cespedes AND 00:00:00 [employer] Bxxxxxxxxxxx/05/2008[place] [facility] Problems Condition Condition Condition Status Onset Resolution Last Treating Co mments Source Name Details Category Date Date Treatment Clinician Date DX: Diagnosis Active 2019-05-20 Mem oria R10.12=LEF 1-03 08:51:00 l T UPPER DX: 00:00: [place] QUADRANT R10.12=LEF 00 PAIN/R13. T UPPER QUADRANT PAIN/R13. Active 05/16/2019 [facility] UNK Diagnosis Active 2018-052019-04-08 Mem oria 1-07 10:20:00 l UNK 00:00: [place] 00 Active 03/20/2019 [facility] DX: Diagnosis Active 2018-052019-04-07 Mem oria R13.10=DYS 1-07 10:27:00 l PHAGIA, DX: 00:00: [place] UNSPECIFIE R13.10=DYS 00 D/K21.9= PHAGIA, UNSPECIFIE D/K21.9= Active 03/20/2019 [facility] DX: OTHER Diagnosis Active 2018-10-23 Memoria ABNORMAL 5-28 14:23:00 l AND DX: 00:00: [place] INCONCLUSI OTHER 00 VE FIND ABNORMAL AND INCONCLUSI VE FIND Active 10/08/2018 [facility] XRAY Diagnosis Active 2017-11-29 Mem oria 7-19 10:58:00 l XRAY 10:54: [place] 00 Active 11/29/2017 [facility] GASTROGAST Diagnosis Active 2017-11-22 Memoria NOA 7-10 08:52:00 l FISTULA 00:00: [place] GASTROGAST 00 NOA FISTULA Active 11/20/2017 [facility] M25.561/Z9 Diagnosis Active 2017-08-01 Memoria 6.651 3- 12:42:00 l 12:42: [place] M25.561/Z9 00 6.651 Active 08/01/2017 [facility] SCREENING Diagnosis Active 2017-07-10 Memoria 06-13 12:01:00 l 00:00: [place] SCREENING 00 Active 06/13/2017 [facility] DX: Diagnosis Active 2017-05-21 Mem oria M81.0=AGE- 1-04 11:14:00 l RELATED DX: 00:00: [place] OSTEOPOROS M81.0=AGE- 00 IS WITHO RELATED OSTEOPOROS IS WITHO Active 05/17/2017 [facility] M17.11 Diagnosis Active 2017-03-07 Mem oria 02-02 21:55:00 l M17.11 00:00: [place] 00 Active 02/02/2017 [facility] K31.9 Diagnosis Active 2016-06-22 Mem oria DISEASE OF 06-19 06:56:00 l STOMACH K31.9 00:00: [place] AND DISEASE OF 00 DUODENUM, STOMACH U AND DUODENUM, U Active 06/19/2016 [facility] R13.10 Diagnosis Active 2016-06-26 Mem oria 2 17:22:00 l R13.10 00:00: [place] 00 Active 06/14/2016 [facility] SCREENING Diagnosis Active 2015-052016-04-03 Memoria MAMMGORAM 0-24 12:43:00 l 00:00: [place] SCREENING 00 MAMMGORAM Active 03/06/2016 [facility] R05 Diagnosis Active 2015-07-27 Mem oria 3-15 10:51:00 l R05 10:50: [place] 00 Active 07/27/2015 [facility] DEHYDRATIO Diagnosis Active 2015-07-07 Memoria N 07-06 09:31:00 l 00:00: [place] DEHYDRATIO 00 N Active 07/06/2015 [facility] CHEST , Diagnosis Active 2015-07-07 Me moria ABDOMINAL 06-30 09:41:00 l [place] CHEST , 00:00: Her garnett L ABDOMINAL 00 ONLYPT [place] L ONLYPT Active 06/30/2015 [facility] 599.0 Diagnosis Active 2014-09-08 Mem oria ACUTE - 15:21:00 l LOWER UTI 599.0 00:00: Obi n ACUTE 00 LOWER UTI Active 08/19/2014 [facility] ICD 787.20 Diagnosis Active 2014-08-20 Memoria 530.3 / 3-24 06:44:00 l CPT 16525 ICD 00:00: [place] 787.20 00 530.3 / CPT 65608 Active 08/04/2014 [facility] ICD 787.20 Diagnosis Active 2013-052014-05-25 Memoria 530.3 / 2-16 21:55:00 l CPT 16409 ICD 00:00: [place] 787.20 00 530.3 / CPT 72097 Active 04/28/2014 [facility] 789.06/787 Diagnosis Active 2013-052014-05-12 Memoria .20 1- 05:32:00 l 00:00: [place] 789.06/787 00 .20 Active 04/07/2014 [facility] 78322 Diagnosis Active 2013-052014-05-18 Mem oria 99464 06-07 19:39:00 l 21390 00:00: [place] 40183 00 Active 04/07/2014 [facility] DYSPHAGIA Diagnosis Active 2013-052014-04-13 Memoria / HITAL 06-03 10:23:00 l HERNIA / 00:00: [place] GERD DYSPHAGIA 00 / HITAL HERNIA / GERD Active 04/03/2014 [facility] SEVERE Diagnosis Active 2013-07-09 Mem oria HEADACHE 07-09 11:17:00 l SEVERE 00:00: [place] HEADACHE 00 Active 07/09/2013 [facility] 724.4 / Diagnosis Active 2013-07-07 Me moria 723.4 - 08:22:00 l 724.4 / 00:00: [place] 723.4 00 Active 07/02/2013 [facility] 793.80 Diagnosis Active 2013-07-02 Mem oria ABNORMAL - 16:22:00 l MAMMOGRAM 793.80 00:00: Adela nn ABNORMAL 00 MAMMOGRAM Active 06/03/2013 [facility] GE Diagnosis Active 2012-12-27 Mem oria JUNCTION - 16:27:00 l MASS GE 00:00: [place] JUNCTION 00 MASS Active 12/24/2012 [facility] 686.50,793 Diagnosis Active 2012-12-26 Memoria .80, 12-05 15:44:00 l ABNORMAL 00:00: [place] MAMMOGRAM 686.50,793 00 .80, ABNORMAL MAMMOGRAM Active 12/05/2012 [facility] Dehydratio Problem Active 2019-05-23 M emoria n 02-03 00:14:50 l (disorder) 00:00: Obi n Dehydratio 00 n (disorder) Active 02/03/2010 Problem 05/23/2019 [facility] Asthenia Problem Active 2019-05-23 Mem oria (finding) 02-03 00:14:50 l Asthenia 00:00: Obi n (finding) 00 Active 02/03/2010 Problem 05/23/2019 [facility] Dehydratio Problem Active 2012-12-29 M emoria n 02-03 21:27:52 l 00:00: [place] Dehydratio 00 n Active 02/03/2010 Problem 12/29/2012 [facility] Weakness Problem Active 2012-12-29 Mem oria 02-03 21:27:52 l Weakness 00:00: Obi n 00 Active 02/03/2010 Problem 12/29/2012 [facility] Leukocytos Problem Active 2012-12-29 M emoria is 01-21 21:27:52 l 00:00: [place] Leukocytos 00 is Active 0 Problem 3 [facility] 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 02:02:34 l disorder White 00:00: [place] (disorder) blood cell 00 disorder (disorder) Active 01/21/2010 Problem 07/12/2013 [facility] Leukocytos Problem Active 2015-01-01 M emoria is(Confirm 01-21 02:07:09 l ed) 00:00: [place] Leukocytos 00 is(Confirm ed) Active 01/21/2010 Problem 01/01/2015 [facility] Hiatal Problem Active 2012-12-29 Memor ia hernia 01-18 21:27:52 l Hiatal 00:00: [place] hernia 00 Active 01/18/2010 Problem 12/29/2012 [facility] Lloyd Problem Active 2019-05-23 Memor ia fundoplica 9- 00:14:50 l tion Lloyd 00:00: [place] (procedure fundoplica 00 ) tion (procedure ) Active 01/13/2010 Problem 05/23/2019 [facility] Lloyd Problem Active 2012-12-29 Memor ia fundoplica - 21:27:52 l tion Lloyd 00:00: [place] fundoplica 00 tion Active 01/13/2010 Problem 12/29/2012 [facility] Chest pain Problem Active 2019-05-23 M emoria (finding) 8 00:14:50 l Chest 00:00: [place] pain 00 (finding) Active 12/16/2009 Problem 05/23/2019 [facility] Chest pain Problem Active 2012-12-29 M emoria 8-05 21:27:52 l Chest 00:00: [place] pain 00 Active 12/16/2009 Problem 12/29/2012 [facility] Left sided Left sided Problem Active [facility] Right Right Problem Active [facility] sided sided [facility]ics Presence Presence Problem Active [facility] total [facility] - right knee right knee Me moria joint joint l prosthesis prosthesis Ou tpati ent Clinics Pain, Pain, Diagnosis Active [facility] joint, joint, [facility] - shoulder, shoulder, Jhonathan jaime left left l Outpati ent Clinics Pain, Pain, Diagnosis Active [facility], joint, [facility] shoulder, shoulder, Jhonathan jaime right right l Outpati ent Clinics Impingemen Impingemen Diagnosis Active [facility] t syndrome t syndrome Rafaela kes - of right of right Memori a shoulder shoulder l Outpati ent Clinics Impingemen Impingemen Diagnosis Active [facility] t syndrome t syndrome Rafaela kes - of left of left Memoria shoulder shoulder l Outpati ent Clinics Unilateral Unilateral Problem Active [facility] primary primary [facility] - osteoarthr osteoarthr Me moria itis, left itis, left l knee knee Outpati ent Clinics Pain, Pain, Problem Active [facility], [facility], [facility] - knee, left knee, left Me moria l Outpati ent Clinics Pain in Pain in Diagnosis [facility] - left wrist left wrist Me moria l Outpati ent Clinics History of History of Problem Resolve Univers Abdominal Abdominal d ity of pain, pain, [place] epigastric epigastric Ph ysici ans Dysphagia Dysphagia Problem Active [facility] vers [facility]y of [place] [facility] ans History of History of Problem Resolve Univers esophageal esophageal d it y of reflux reflux [place] Physici ans History of History of Problem Resolve Univers essential essential d ity of hypertensi hypertens[place] Physici ans History of History of Problem Resolve Univers heartburn heartburn d ity of [place] Physici ans History of History of Problem Resolve Univers Herniated Herniated d ity of nucleus nucleus [place] pulposus, pulposus, Phys ici L4-5 L4-5 ans History of History of Problem Resolve Univers hiatal hiatal d ity of hernia hernia [place] Physici ans History of History of Problem Resolve Univers Sick sinus Sick sinus d it y of syndrome syndrome [place] Physici ans History of History of Problem Resolve Univers Gastrocuta Gastrocuta d it y of neous neous [place] fistula fistula Physici ans History of History of Problem Resolve Univers nausea nausea d ity of [place] Physici ans History of History of Problem Resolve Univers gastroesop gastroesop d it y of hageal hageal [place] reflux reflux Physici (GERD) (GERD) ans History of History of Problem Resolve Univers odynophagi odynophagi d it y of a a [place] Physici ans History of History of Problem Resolve Univers Regurgitat Regurgitat d it y of ion ion [place] Physici ans Left upper Left upper Problem Active U nivers quadrant quadrant ity of pain pain [place] Physici ans Other Problem 2017-08-27 Memor ia specified 22:14:42 l disorders Other Obi n of bone specified density disorders and of bone structure, density other site and structure, other site 08/27/2017 [facility] Presence Problem 2017-11-07 Mem oria of right 16:05:01 l artificial Presence He rmann knee joint of right artificial knee joint 11/07/2017 [facility] Final: Problem 2015-01-01 Memor ia Other 02:07:09 l Screening Final: Adela nn Mammogram Other Screening Mammogram 01/01/2015 [facility] Final: Problem 2016-03-31 Memor ia Encounter 01:34:27 l for Final: [place] screening Encounter mammogram for for screening malignant mammogram neoplasm for of breast malignant neoplasm of breast 03/31/2016 [facility] Acid Problem Resolve 2019-05-23 Jhonathan jaime reflux d 00:14:50 l (finding) Acid [place] reflux (finding) Resolved Problem 05/23/2019 [facility] Ordonez's Problem Resolve 2019-05-23 M emoria esophagus d 00:14:50 l (disorder) Obi n Ordonez's esophagus (disorder) Resolved Problem 05/23/2019 [facility] History of Problem Resolve 2019-05-23 Memoria sick sinus d 00:14:50 l syndrome History Adela nn (situation of sick ) sinus syndrome (situation ) Resolved Problem 05/23/2019 [facility] Cancer of Problem Resolve 2012-12-29 M emoria colon d 21:27:52 l Cancer [place] of colon Resolved Problem 12/29/2012 [facility] Hypertensi Problem Resolve 2012-12-29 Memoria on d 21:27:52 l [place] Hypertensi on Resolved Problem 12/29/2012 [facility] Backache Problem Active 2019-05-23 Mem oria (finding) 00:14:50 l Backache Obi n (finding) Active Problem 05/23/2019 [facility] Malignant Problem Active 2019-05-23 Me moria tumor of 00:14:50 l colon [place] (disorder) Malignant tumor of colon (disorder) Active Problem 05/23/2019 [facility] Cardiac Problem Active 2019-05-23 Jhonathan jaime pacemaker 00:14:50 l in situ Cardiac Obi n (finding) pacemaker in situ (finding) Active Problem 05/23/2019 [facility] Fistula Problem Active 2019-05-23 Jhonathan jaime (disorder) 00:14:50 l Fistula [place] (disorder) Active Problem 05/23/2019 esophagea l gastric [facility] Gastroesop Problem Active 2019-05-23 M emoria hageal 00:14:50 l reflux [place] disease Gastroesop (disorder) hageal reflux disease (disorder) Active Problem 05/23/2019 [facility] Hearing Problem Active 2019-05-23 Jhonathan jaime loss 00:14:50 l (finding) Hearing Herm steph loss (finding) Active Problem 05/23/2019 [facility] Hypertensi Problem Active 2019-05-23 M emoria ve 00:14:50 l disorder, [place] systemic Hypertensi arterial ve (disorder) disorder, systemic arterial (disorder) Active Problem 05/23/2019 [facility] Hyperchole Problem Active 2019-05-23 M emoria sterolemia 00:14:50 l (disorder) Obi n Hyperchole sterolemia (disorder) Active Problem 05/23/2019 [facility] On Problem Active 2019-05-23 Memor ia examinatio 00:14:50 l n - On [place] spasm/tic examinatio (context-d n - ependent spasm/tic category) (context-d ependent category) Active Problem 05/23/2019 of colon [facility] Osteoarthr Problem Active 2019-05-23 M emoria itis 00:14:50 l (disorder) Obi n Osteoarthr itis (disorder) Active Problem 05/23/2019 bilateral knees [facility] Cardiac Problem Active 2017-05-24 Jhonathan jaime pacemaker, 03:08:56 l device Cardiac [place] (physical pacemaker, object) device (physical object) Active Problem 05/24/2017 [facility] CA - Problem Active 2012-12-29 Memor ia Cancer of 21:27:52 l colon CA - [place] Cancer of colon Active Problem 12/29/2012 [facility] Cardiac Problem Active 2012-12-29 Jhonathan jaime pacemaker, 21:27:52 l device Cardiac [place] pacemaker, device Active Problem 12/29/2012 [facility] GERD - Problem Active 2012-12-29 Memor ia Gastro-eso 21:27:52 l phageal GERD - [place] reflux Gastro-eso disease phageal reflux disease Active Problem 12/29/2012 [facility] HTN - Problem Active 2012-12-29 Memor ia Hypertensi 21:27:52 l on HTN - [place] Hypertensi on Active Problem 3 [facility] ABL Diagnosis Active 2013-07-02 Mem oria MAMMOGRAM 16:22:00 l NOS ABL [place] MAMMOGRAM NOS Active [facility] ORDONEZ'S Diagnosis Active 2012-12-23 Memoria ESOPHAGUS 06:09:00 l [place] ORDONEZ'S ESOPHAGUS Active [facility] OTHER Diagnosis Active 2012-12-27 Mem oria DSRDERS 16:27:00 l ESOPHAGUS OTHER Obi n DSRDERS ESOPHAGUS Active [facility] LUMBOSACRA Diagnosis Active 2013-07-07 Memoria L NEURITIS 08:22:00 l NOS [place] LUMBOSACRA L NEURITIS NOS Active [facility] BRACHIAL Diagnosis Active 2013-07-07 M emoria NEURITIS 08:22:00 l NOS BRACHIAL Obi n NEURITIS NOS Active [facility] ESOPHAGEAL Diagnosis Active 2014-04-08 Memoria REFLUX 10:27:00 l [place] ESOPHAGEAL REFLUX Active [facility] DYSPHAGIA Diagnosis Active 2014-08-20 Memoria NOS 06:44:00 l [place] DYSPHAGIA NOS Active [facility] ABDMNAL Diagnosis Active 2014-05-12 Me moria PAIN 05:32:00 l EPIGASTRIC ABDMNAL Her garnett PAIN EPIGASTRIC Active [facility] ABDMNAL Diagnosis Active 2014-05-18 Me moria MASS 19:39:00 l GENERALIZE ABDMNAL Her garnett D MASS GENERALIZE D Active [facility] ESOPHAGEAL Diagnosis Active 2014-08-20 Memoria STRICTURE 06:44:00 l [place] ESOPHAGEAL STRICTURE Active [facility] 787.20 Diagnosis Active 2014-06-03 Mem oria 11:27:00 l 787.20 [place] Active [facility] URIN TRACT Diagnosis Active 2014-09-08 Memoria INFECTION 15:21:00 l NOS URIN [place] TRACT INFECTION NOS Active [facility] DYSPHAGIA, Diagnosis Active 2019-05-20 Memoria UNSPECIFIE 08:51:00 l D [place] DYSPHAGIA, UNSPECIFIE D Active [facility] DIAPHRAGMA Diagnosis Active 2015-06-30 Memoria TIC HERNIA 13:22:00 l WITHOUT [place] OBSTRUCTIO DIAPHRAGMA N TIC HERNIA WITHOUT OBSTRUCTIO N Active [facility] LOCALIZED Diagnosis Active 2015-07-07 Memoria SWELLING, 09:41:00 l MASS AND [place] LUMP, LOCALIZED TRUNK SWELLING, MASS AND LUMP, TRUNK Active [facility] GENERALIZE Diagnosis Active 2015-07-07 Memoria D 09:41:00 l INTRA-ABD [place] AND PELVIC GENERALIZE SWELLIN D INTRA-ABD AND PELVIC SWELLIN Active [facility] ESOPHAGEAL Diagnosis Active 2015-07-06 Memoria OBSTRUCTIO 13:20:00 l N [place] ESOPHAGEAL OBSTRUCTIO N Active [facility] COUGH Diagnosis Active 2015-07-27 Mem oria 10:51:00 l COUGH [place] Active [facility] ANAL SPASM Diagnosis Active 2016-02-15 Memoria 07:37:00 l ANAL [place] SPASM Active [facility] ENCNTR Diagnosis Active 2017-07-10 Mem oria SCREEN 12:01:00 l MAMMOGRAM ENCNTR Adela nn FOR SCREEN MALIGNANT MAMMOGRAM NE FOR MALIGNANT NE Active [facility] GASTRO-ESO Diagnosis Active 2016-06-26 Memoria PHAGEAL 17:22:00 l REFLUX [place] DISEASE GASTRO-ESO WITHOUT PHAGEAL REFLUX DISEASE WITHOUT Active [facility] DISEASE OF Diagnosis Active 2016-06-22 Memoria STOMACH 06:56:00 l AND DISEASE [place] DUODENUM, OF STOMACH UNSPECI AND DUODENUM, UNSPECI Active [facility] FISTULA OF Diagnosis Active 2016-08-23 Memoria STOMACH 10:47:00 l AND FISTULA [place] DUODENUM OF STOMACH AND DUODENUM Active [facility] UNILATERAL Diagnosis Active 2017-03-07 Memoria PRIMARY 21:55:00 l OSTEOARTHR Obi n ITIS, UNILATERAL RIGHT PRIMARY OSTEOARTHR ITIS, RIGHT Active [facility] AGE-RELATE Diagnosis Active 2017-05-21 Memoria D 11:14:00 l OSTEOPOROS Obi n IS W/O AGE-RELATE CURRENT D PAT OSTEOPOROS IS W/O CURRENT PAT Active [facility] PAIN IN Diagnosis Active 2017-08-01 Me moria RIGHT KNEE 12:42:00 l PAIN IN [place] RIGHT KNEE Active [facility] PRESENCE Diagnosis Active 2017-08-01 M emoria OF RIGHT 12:42:00 l ARTIFICIAL PRESENCE He rmann KNEE JOINT OF RIGHT ARTIFICIAL KNEE JOINT Active [facility] OTHER Diagnosis Active 2017-11-29 Mem oria CHEST PAIN 10:58:00 l OTHER [place] CHEST PAIN Active [facility] LEFT UPPER Diagnosis Active 2019-05-20 Memoria QUADRANT 08:51:00 l PAIN LEFT [place] UPPER QUADRANT PAIN Active [facility] Other Problem 2018-06-18 2018-06-18 M emoria chest pain 12-05 16:03:53 16:03:53 l Other 03:22: [place] chest pain 37 12/05/2017 06/18/2018 [facility] Pain in Problem 2017-2017-11-07 2017-11-07 Memoria right knee 08-08 16:05:01 16:05:01 l Pain in 03:16: [place] right knee 49 08/08/2017 11/07/2017 [facility] Encounter Problem 2017-10-16 2017-10-16 Memoria for 07-17 11:59:21 11:59:21 l screening 04:15: [place] mammogram Encounter 43 for for malignant screening neoplasm mammogram of breast for malignant neoplasm of breast 07/17/2017 10/16/2017 [facility] Age-relate Problem 2017-08-27 2017-08-27 Memoria d 1-12 22:14:42 22:14:42 l osteoporos 04:24: Obi n is without Age-relate 42 current d pathologic osteoporos al is without fracture current pathologic al fracture 8 08/27/2017 [facility] Discharge Problem 2013-07-12 2013-07-12 Memoria Diagnosis: 2- 02:02:34 02:02:34 l Spinal 06:00: [place] headache Discharge 00 Diagnosis: Spinal headache 4 07/12/2013 [facility] Discharge Problem 2013-07-12 2013-07-12 Memoria Diagnosis: 2- 02:02:34 02:02:34 l Spinal 06:00: [place] Blood Discharge 00 Patch Diagnosis: Spinal Blood Patch 07/09/2013 07/12/2013 [facility] History of Past Illness Condition Condition Condition Status Onset Resolution Last Treating Co mments Source Name Details Category Date Date Treatment Clinician Date Leukocytos Problem Resolve 2019-05-23 2019-05-23 Memoria is(Confirm d 01-21 00:14:50 00:14:50 l ed) 00:00: [place] Leukocytos 00 is(Confirm ed) Resolved 01/21/2010 Problem 05/23/2019 [facility] Diaphragma Problem Resolve 2019-05-23 2019-05-23 Memoria tic hernia d 01-18 00:14:50 00:14:50 l (disorder) 00:00: Obi n Diaphragma 00 tic hernia (disorder) Resolved 01/18/2010 Problem 05/23/2019 [facility] Allergies, Adverse Reactions, Alerts Allergy Allergy Status Severity Reaction(s) Onset Inactive Treating Comm ents Source Name Type Date Date Clinician Iodinate Propensi Active Swelling [place] d ty to 1-20 Method[facility] Contrast adverse 00:00: st [facility] reaction 00 s to drug Hydrocod Propensi Active GI Nausea, [place] on one-Acet ty to Intolerance 1-20 vomiting M ethodi aminophe adverse 00:00: st n reaction 00 s to drug Vicodin Adverse Active Info Not [facility] Reaction Available [facility] contrast Adverse Active Info [facility] dye Reaction [facility] Contrast drug Active [facility] Media allergy ity of Ready[facility] [place] x MISC Physici ans Iodex drug Active Univers OINT allergy ity of [place] Physici ans Iodinate drug Active Univers d allergy ity of Contrast [place] Media Physici [facility] Vicodin drug Active Univers TABS allergy ity of [place] [facility] Iodine allergy Active Univers to ity of substanc [place] e Physici ans Contrast Contrast Active Memori a Media Media l Ready-Fabian Ready-Fabian Obi n x MISC x MISC Vicodin Vicodin Active Memoria TABS TABS l [place] iodinate iodinate Active Memori a d d l radiocon radiocon Obi n trast trast dyes dyes Vicodin Vicodin Active Memoria l [place] Family History Family Member Diagnosis Comments Start Date Stop Date Source Father Family history of [facility] [place] [facility] Social History Social Habit Start Date Stop Date Quantity Comments Source History [facility] Meth odist Alcohol Std Drinks History [facility] Meth odist Alcohol Binge Sex Assigned At [facility] ethodist Alcohol intake 2019-06-03 2019-06-03 [facility] thodist 00:00:00 00:00:00 non-drinker (finding) History [facility] 2019-06-02 2019-06-02 1 [place] [facility] odist Alcohol Frequency 00:00:00 00:00:00 Social History 2014-04-27 2014-04-27 [facility] 21:45:00 21:45:00 Smoking Status Start Date Stop Date Source Never smoker [place] [facility] Medications Ordered Filled Start Stop Current Ordering Indication Dosage Frequency Signature Comments Components Source Medication Medication Date Date Medication? Clinician (SIG) Name Name aspirin 2019-0 Yes 81mg QD Take 81 mg [place] (ECOTRIN) 1-20 by mouth Method i 81 MG 21:08: daily. st enteric 48 coated tablet amlodipine- 2019-0 Yes 1{tbl} QD Take 1 [place] valsartan 1-20 tablet by Metho di (EXFORGE) 21:08: mouth st 5-160 mg 48 daily. per tablet clonIDINE 2019- Yes .1mg Q24H Take 0.1 [place] (CATAPRES) 1-20 mg by Methodi 0.1 MG 21:08: mouth st tablet 48 daily as needed for high blood pressure. pantoprazol Yes 40mg QD Take 40 mg Joya e sodium 1-20 by mouth Methodi (PANTOPRAZO 21:08: daily. st LE ORAL) 48 levothyroxi Yes 25ug QD Take 25 Carlo ston ne 1-20 mcg by Methodi (SYNTHROID) 21:08: mouth st 25 mcg 48 daily. tablet Sodium 2018-05 No 1,000 mL, Memori a Chloride 1-26 Rate: 75 l 0.9% IV 17:26: ml/hr, [place] 1000 mL 00 Infuse over: 13.3 hr, Route: IV, Dosing Weight 62.045 kg, Total Volume: 1,000, Start date: 04/08/19 11:26:00 CIGAR BANDER HAND, Duration: 30 day, Stop date: 05/08/19 11:25:00 CIGAR BANDER HAND, 1.65, m2 levothyroxi 2018-05 Yes 25 Memori a ne 25 mcg 1-25 microgram l (0.025 mg) 19:34: = 1 tab, Her garnett oral tablet 00 PO, Daily, # 30 tab, 0 Refill(s) omeprazole 2018-05 Yes 40 mg = 1 Me moria 40 mg oral 1-25 cap, PO, l delayed 19:33: Daily, # Obi n release 00 30 cap, 0 capsule Refill(s) Amlodipine- Amlodipine- Yes Gaudencio [address] [facility] Atorvastati Atorvastati 01-30 Guilherme Gee - n n 00:00: Memoria 00 [facility] ent [facility] Omeprazole Omeprazole Yes Gaudencio [address] [facility] 01[facility]30 [facility] - 00:00: Memoria 00 l [facility] Pantoprazol Pantoprazol Yes JOANNE 1 QD TAKE 1 [facility] Sodium 40 e Sodium 40 01-29 OBONYANO TABLET ity of MG Oral MG Oral 00:00: N.P. DAILY [place] Tablet Tablet 00 Physici Delayed Delayed ans Release Release [id number] No Route: IV, Mem oria (ANES) 7-12 Drug form: l 19:52: INJ, ONCE, [place] 00 Stop date: 11/22/17 14:52:00 CDT Oxycodone No Notes: Memori a 7-12 (Same as: l 19:51: Roxicodone ) Naloxone No Notes: Memoria 7-12 Same as l 19:51: Narcan Metoprolol No Notes: Memor ia 7-12 (Same as: l 19:51: Lopressor) Push over 2 minutes Hydralazine No Notes: Jhonathan jaime 7-12 (Same as: l 19:51: Apresoline ) Push over 5 minutes Labetalol No 10 mg, 2 Jhonathan jaime 7-12 mL, Route: l 19:51: IVP, Drug form: INJ, Q5Min, Dosing Weight 59.574, kg, PRN Elevated BP, Start date: 11/22/17 14:51:00 CDT, Duration: 5 doses or times, Stop date: 11/23/17 0:00:00 CDT Flumazenil No Notes: Memor ia 7-12 (Same as: l 19:51: Romazicon) Ondansetron No 4 mg, Memor ia 7-12 Route: l 19:51: IVP, ONCE, Dosing Weight 59.574, kg, PRN Nausea & Vomiting, Start date: 11/22/17 14:51:00 CDT tramadol Yes 50 mg = 1 Jhonathan jaime hydrochlori -12 tab, PO, l de 50 MG 19:38: Q6H, PRN Adela nn Oral Tablet 00 pain, # 20 tab, 0 Refill(s) succinylcho No Route: IV, Memoria line (ANES) 11-22 Drug form: l 19:27: INJ, ONCE, Stop date: 11/22/17 14:27:00 CDT lidocaine No Route: IV, Me moria (ANES) 12 Drug form: l 19:27: INJ, ONCE, Stop date: 11/22/17 14:27:00 CDT rocuronium No Route: IV, M emoria (ANES) 11-22 Drug form: l 19:27: INJ, ONCE, [place] 00 Stop date: 11/22/17 14:27:00 CDT fentaNYL No Route: IV, Mem oria (ANES) 7-12 Drug form: l 19:27: INJ, ONCE, Stop date: 11/22/17 14:27:00 CDT propofol No Route: IV, Mem oria (ANES) 7-12 Drug form: l 19:27: INJ, ONCE, Stop date: 11/22/17 14:27:00 CDT ceFAZolin No Route: IV, Me moria (ANES) 7-12 Drug form: l 19:22: INJ, ONCE, Stop date: 11/22/17 14:22:00 CDT Lactated No Route: IV, Mem oria Ringers -12 Total l Injection 18:28: Volume: Adela nn IV (ANES) 00 1,000, 1000 mL Start date: 11/22/17 13:28:00 CDT, Stop date: 11/22/17 14:28:00 CDT remove No Notes: Memoria patch - Remove old l 05:00: patch before applicatio n of new patch. Ofirmev No Notes: Memoria 7-12 Infuse l 05:00: over 15 minutes Do not exceed 4gm/day of acetaminop hen MEDICATION WASTE Product Size: 1000 mg Product Wasted: ___ mg heparin No Notes: Memoria 7-12 porcine l 05:00: heparin scopolamine No Notes: Jhonathan jaime 7-12 Change l 05:00: patch every 72 hours (Same as: Transderm- Scop) ceFAZolin + No Notes: Jhonathan jaime sterile -12 (Same As: l water 20 mL 05:00: Ancef, Herm steph Kefzol) MEDICATION WASTE Product Size: 1000 mg Product Wasted: ___ mg Aspirin 81 2017- Yes 81 mg = 1 Me moria MG Enteric 7-10 tab, PO, l Coated 18:02: Daily, # [place] Tablet 00 90 tab, 3 Refill(s) Hemocyte 2016-05 No Notes: Memoria Plus 0-20 Same as l 14:00: Iron/C/B12 [place] 00 /FA/SA Acetaminoph 2016-05 Yes 1 - 2 tab, Memoria en 300 MG / 0-19 PO, Q4H, l Codeine 23:08: PRN Pain, Adela nn Phosphate 22 X 14 day, 60 MG Oral # 60 tab, Tablet 0 [Tylenol Refill(s) with Codeine #4] tramadol 2016-05 Yes 50 mg = 1 Jhonathan jaime hydrochlori 0-19 tab, PO, l de 50 MG 23:07: Q8H, PRN Adela nn Oral Tablet 16 Pain, X 14 day, # 90 tab, 0 Refill(s) tramadol 2016-05 No 50 mg = 1 Jhonathan jaime hydrochlori 0-19 tab, PO, l de 50 MG 22:25: Q8H, PRN Adela nn Oral Tablet 00 Pain, X 14 day, # 42 tab, 0 Refill(s) Acetaminoph 2016-05 No 1 - 2 tab, Memoria en 300 MG / 0-19 PO, Q4H, l Codeine 22:25: PRN Pain, Adela nn Phosphate 00 X 14 day, 60 MG Oral # 60 tab, Tablet 0 [Tylenol Refill(s) with Codeine #4] Oxycodone 2016-05 No Notes: Memori a Hydrochlori 0-19 (Same as: l de 5 MG 16:16: Roxicodone Herm setph Oral Tablet 00 ) amLODIPine 2016-05 Yes 5 mg = 1 Mem oria 5 mg oral 0-19 tab, PO, l tablet 15:54: Daily, 0 [place] 00 Refill(s) Losartan 2016-05 No Notes: Memoria 0-19 (Same as: l 14:00: Cozaar) [place] Norvasc 2016-05 No Notes: Memoria 0-19 (Same as: l 14:00: Norvasc) [place] 00 Tylenol 2016-05 No Notes: Do Memor ia 0-19 not exceed l 13:50: 4 gm/day. [place] (Same as: Tylenol) Roxicodone 2016-05 No Notes: Memor ia 0-19 (Same as: l 13:49: Roxicodone [place] ) Acetaminoph 2016-05 No 1 tab, Jhonathan jaime en 325 MG / 0-19 Route: PO, l Oxycodone 13:35: Drug Form: Evlin robertson Hydrochlori 00 TAB, de 5 MG Dosing Oral Tablet Weight [Percocet 57.864, 5/325] kg, Q4H, PRN Pain Score 1-3, Start date: 03/01/17 8:35:00 CDT, Duration: 30 day, Stop date: 03/31/17 8:34:00 [employer] Omeprazole 2016-05 No 20 mg, Memor ia 0-18 Route: PO, l 22:00: Drug form: [place] 00 ECTAB, BID, Dosing Weight 57.864, kg, Start date: 02/28/17 17:00:00 CDT, Duration: 30 day, Stop date: 03/30/17 9:00:00 [employer] Protonix 2016-05 No Notes: Memoria 0-18 Tablet l 21:30: should not be chewed or crushed. (Same as: Protonix) Dilaudid 2016-05 No 1 mg, 1 Memori a 0-18 mL, Route: l 13:35: IVP, Drug form: INJ, Q4H, Dosing Weight 57.864, kg, PRN Pain Score 7-10, Start date: 02/28/17 8:35:00 CDT, Duration: 3 day, Stop date: 03/03/17 8:34:00 CDT Acetaminoph 2016-05 No Notes: Jhonathan jaime en 325 MG / 0-18 Same as l Hydrocodone 13:34: [place] Adela nn Bitartrate 00 325-7.5mg 7.5 MG Oral Do not Tablet exceed [[place] 4gm/day of 7.5/325] acetaminop hen. Enoxaparin 2016-05 No Notes: Memor ia 0-18 (Same as: l 04:00: Lovenox) [place] 00 ceFAZolin 2016-05 No 1 gm, 100 Mem oria (SCIP) 0-18 mL, Route: l 03:00: IVPB, Drug form: INJ, Q6H, Dosing Weight 57.864, kg, Start date: 02/27/17 22:00:00 CDT, Duration: 3 doses or times, Stop date: 02/28/17 10:00:00 CDT, ABX Indication : Surgical Prophylaxi s Lunesta 2016-05 No 3 mg, Memoria 0-18 Route: PO, l 02:00: Bedtime, [place] 00 Dosing Weight 57.864, kg, Start date: 02/27/17 21:00:00 CDT, Duration: 30 day, Stop date: 03/28/17 21:00:00 [employer] zolpidem 2016-05 No Notes: Memoria 0-17 (Same As: l 22:51: Ambien) [place] 00 Docusate 2016-05 No Notes: Memoria 0-17 (Same as: l 22:00: Colace) (Do Not Crush) Naloxone 2016-05 No 0.4 mg, Memori a 0-17 Route: l 17:08: IVP, [place] 00 Q2MIN, Dosing Weight 57.864, kg, PRN Narcotic Reversal, Start date: 02/27/17 12:08:00 CDT, Duration: 8 doses or times, Stop date: Limited # of times Flumazenil 2016-05 No 0.2 mg, Jhonathan jaime 0-17 Route: l 17:08: IVP, PRN, [place] 00 Dosing Weight 57.864, kg, PRN Benzodiaze pine Reversal, Initial dose, Start date: 02/27/17 12:08:00 CDT, Duration: 30 day, Stop date: 03/29/17 11:07:00 [employer] Hydromorpho 2016-05 No 0.5 mg, Mem oria ne 0-17 Route: l 17:08: IVP, [place] 00 Q5Min, Dosing Weight 57.864, kg, PRN Pain Score 7-10, Start date: 02/27/17 12:08:00 CDT, Duration: 4 doses or times, Stop date: Limited # of times Fentanyl 2016-05 No 25 Memoria 0-17 microgram, l 17:08: Route: [place] 00 IVP, Q5Min, Dosing Weight 57.864, kg, PRN Pain Score 4-6, Priority: Routine, Start date: 02/27/17 12:08:00 CDT, Duration: 4 doses or times, Stop date: Limited # of times Promethazin 2016-05 No 6.25 mg, Me moria e 0-17 Route: l 17:08: IVPB, ONCE, Dosing Weight 57.864, kg, PRN Nausea & Vomiting, Start date: 02/27/17 12:08:00 CDT Ondansetron 2016-05 No 4 mg, Memor ia 0-17 Route: l 17:08: IVP, ONCE, Dosing Weight 57.864, kg, PRN Nausea & Vomiting, Start date: 02/27/17 12:08:00 CDT Cefazolin 2016-05 No 1 gm, Memoria 0-17 Route: l 17:00: IVPB, Drug form: INJ, Q6H, Dosing Weight 57.864, kg, Start date: 02/27/17 12:00:00 CDT, Duration: 3 doses or times, Stop date: 02/28/17 0:00:00 CDT, ABX Indication : Surgical Prophylaxi s Enoxaparin 2016-05 No 30 mg, Memor ia 017 Route: l 16:00: SUB-Q, Drug form: INJ, [id number], Dosing Weight 57.864, kg, Start date: 02/27/17 11:00:00 CDT, Duration: 30 day, Stop date: 03/28/17 23:00:00 [employer] glycopyrrol 2016-05 No Route: IV, Memoria ate (ANES) 0-17 Drug form: l 15:49: INJ, ONCE, Stop date: 02/27/17 10:49:00 CDT ketOROLAC 2016-05 No IV, ONCE Jhonathan jaime (ANES) 0-17 l 15:49: tranexamic 2016-05 No Route: IV, M emoria acid (ANES) 0-17 Drug form: l 15:49: INJ, ONCE, Stop date: 02/27/17 10:49:00 CDT ondansetron 2016-05 No Route: IV, Memoria (ANES) 0-17 Drug form: l 15:49: INJ, ONCE, Stop date: 02/27/17 10:49:00 CDT neostigmine 2016-05 No Route: IV, Memoria (ANES) 0-17 Drug form: l 15:49: INJ, ONCE, Stop date: 02/27/17 10:49:00 CDT Melatonin 2016-05 No Notes: Memori a 0-17 (Same as: l 15:48: Melatonin) Hydromorpho 2016-05 No 0.3 mg, Mem oria ne 0-17 0.3 mL, l 15:43: Route: IVP, Drug form: INJ, Q4H, Dosing Weight 57.864, kg, PRN Pain Score 7-10, Start date: 02/27/17 10:43:00 CDT, Duration: 30 day, Stop date: 03/29/17 10:42:00 [employer] Diphenhydra 2016-05 No 12.5 mg, Me moria mine 0-17 0.5 tab, l 15:43: Route: PO, Drug form: TAB, Q6H, Dosing Weight 57.864, kg, PRN Itching, Start date: 02/27/17 10:43:00 CDT, Duration: 30 day, Stop date: 03/29/17 10:42:00 [employer] Al 2016-05 No Notes: Memoria hydroxide/M 0-17 (aluminum l g 15:43: hydroxide- [place] hydroxide/s 00 magnesium imethicone hyd-simeth 200 mg-200 icone mg-20 mg/5 200-200-20 mL oral mg/5ml 30 suspension ml ud KARINA) Ondansetron 2016-05 No Notes: Jhonathan jaime 0-17 (Same as: l 15:43: Zofran) MEDICATION WASTE Product Size: 4 mg Product Wasted: ___ mg Lactated 2016-05 No 1,000 mL, Jhonathan jaime Ringers 0-17 Rate: 75 l 1,000 mL 15:43: ml/hr, Infuse over: 13.3 hr, Route: IV, Dosing Weight 57.864 kg, Total Volume: 1,000, Start date: 02/27/17 10:43:00 CDT, Duration: 30 day, Stop date: 03/29/17 10:42:00 [employer] dexamethaso 2016-05 No Route: IV, Memoria ne (ANES) 0-17 Drug form: l 15:14: INJ, ONCE, Stop date: 02/27/17 10:14:00 CDT rocuronium 2016-05 No Route: IV, M emoria (ANES) 0-17 Drug form: l 15:09: INJ, ONCE, Stop date: 02/27/17 10:09:00 CDT acetaminoph 2016-05 No Route: IV, Memoria en (ANES) 0-17 Drug form: l 15:09: INJ, ONCE, Stop date: 02/27/17 10:09:00 CDT ceFAZolin 2016-05 No Route: IV, Me moria (ANES) 0-17 Drug form: l 15:09: INJ, ONCE, Stop date: 02/27/17 10:09:00 CDT lidocaine 2016-05 No Route: IV, Me moria (ANES) 0-17 Drug form: l 15:09: INJ, ONCE, Stop date: 02/27/17 10:09:00 CDT propofol 2016-05 No Route: IV, Mem oria (ANES) 0-17 Drug form: l 15:09: INJ, ONCE, Stop date: 02/27/17 10:09:00 CDT hydromorpho 2016-05 No Route: Jhonathan jaime ne (ANES) 0-17 INTRATHECA l 14:54: L, Drug form: INJ, ONCE, Stop date: 02/27/17 9:54:00 CDT LR 1000 mL 2016-05 No Route: IV, M emoria INJ (ANES) 0-17 Total l 14:18: Volume: [place] 00 1,000, Start date: 02/27/17 9:18:00 CDT, Stop date: 02/27/17 10:18:00 CDT Calcium 2016-05 No 1,000 mL, Memor ia Chloride 0-17 Rate: 25 l 0.0014 13:24: ml/hr, [place] MEQ/ML / 00 Infuse Potassium over: 40 Chloride hr, Route: 0.004 IV, Dosing MEQ/ML / Weight Sodium 57.864 kg, Chloride Total 0.103 Volume: MEQ/ML / 1,000, Sodium Start Lactate date: 0.028 10/17/17 MEQ/ML 8:24:00 Injectable CDT, Solution Duration: 30 day, Stop date: 03/29/17 8:23:00 [employer] ropivacaine 2016-05 No Notes: Memoria 0-17 NOT FOR IV l 13:00: use Ropivacain e 5 mg/mL (49.25 mL) Epinephrin e 1 mg/mL (0.5 mL) Clonidine 0.1 mg/mL (0.8 mL) Ketorolac 30 mg/mL (1 mL) Normal Saline 48.45 mL gabapentin 2016-05 No 300 mg, Jhonathan jaime 0-17 Route: PO, l 13:00: Kisha GAN Dosing Weight 57.864, kg, Start date: 02/27/17 8:00:00 CDT, Duration: 30 day, Stop date: 03/29/17 6:59:00 [employer] celecoxib 2016-05 No 90 Memoria 0-17 mL/min), l 13:00: Start date: 02/27/17 8:00:00 CDT, Duration: 30 day, Stop date: 03/29/17 6:59:00 [employer] 0.3 ML 2016-05 Yes 30 mg, Memoria Enoxaparin 0-17 SUB-Q, l sodium 100 11:05: Q12H, X 14 H ermann MG/ML day, # 28 Prefilled inj, 0 Syringe Refill(s) [Lovenox] Cephalexin 2016-05 No 500 mg = 1 M emoria 500 MG Oral 0-17 cap, PO, l Capsule 11:05: QID, X 10 Adela nn [Keflex] day, # 40 cap, 0 Refill(s) Albuterol 2016-05 Yes Notes: Memori a 0.833 MG/ML 0-04 (Same as: :43: Duoneb) Ipratropium 00 [place] 0.167 MG/ML Inhalant Solution sodium 2016-05 No 500 mL, Memoria chloride 0-04 Rate: 25 l 0.9% 500 ml 17:43: ml/hr, Herm steph INJ 500 mL 00 Infuse over: 20 hr, Route: IV, Dosing Weight 59.545 kg, Total Volume: 500, Start date: 02/14/17 12:43:00 CDT, Duration: 1 day, Stop date: 02/15/17 12:42:00 CDT Zofran 2017-0 No Notes: Memoria - (Same as: l 19:53: Zofran) [place] 00 MEDICATION WASTE Product Size: 4 mg Product Wasted: ___ mg Albuterol 2017-0 No 2.49 mg, Jhonathan jaime 0.83 MG/ML 08-23 Route: l Inhalant 19:49: NEB, [place] Solution 00 Q20Min, Dosing Weight 59.091, kg, PRN Wheezing, Priority: STAT, Start date: 08/23/16 14:49:00 CDT, Duration: 30 day, Stop date: 09/22/16 14:48:00 CDT Diphenhydra 2017-0 No 12.5 mg, Me moria mine 08-23 Route: l 19:49: IVP, Drug form: INJ, Q6H, Dosing Weight 59.091, kg, PRN Itching, Start date: 08/23/16 14:49:00 CDT, Duration: 30 day, Stop date: 09/22/16 14:48:00 CDT Promethazin 2017-0 No 6.25 mg, Me moria e 08-23 Route: l 19:49: IVPB, [place] 00 ONCE, Dosing Weight 59.091, kg, PRN Nausea & Vomiting, Start date: 08/23/16 14:49:00 CDT Meperidine 2017-0 No 12.5 mg, Mem oria 08-23 Route: l 19:49: IVP, [place] 00 Q30Min, Dosing Weight 59.091, kg, PRN Other -See Comment, For shivering, Start date: 08/23/16 14:49:00 CDT, Duration: 2 doses or times, Stop date: Limited # of times Ondansetron 2017-0 No 4 mg, Memor ia 08-23 Route: l 19:49: IVP, ONCE, [place] 00 Dosing Weight 59.091, kg, PRN Nausea & Vomiting, Start date: 08/23/16 14:49:00 CDT Oxycodone 2017-0 No 5 mg, Memoria 4-12 Route: PO, l 19:49: Drug form: [place] 00 TAB, Q4H, Dosing Weight 59.091, kg, PRN Pain Score 4-6, Start date: 08/23/16 14:49:00 CDT, Duration: 30 day, Stop date: 09/22/16 14:48:00 CDT esmolol 2017-0 No 10 mg, Memoria 4-12 Route: l 19:49: IVP, [place] 00 Q5Min, Dosing Weight 59.091, kg, PRN Other -See Comment, Start date: 08/23/16 14:49:00 CDT, Duration: 5 doses or times, Stop date: Limited # of times Labetalol 2017-0 No 10 mg, Memori a 4-12 Route: l 19:49: IVP, [place] 00 Q5Min, Dosing Weight 59.091, kg, PRN Elevated BP, Start date: 08/23/16 14:49:00 CDT, Duration: 5 doses or times, Stop date: Limited # of times Hydralazine 2017-0 No 10 mg, Jhonathan jaime 4-12 Route: l 19:49: IVP, [place] 00 Q20Min, Dosing Weight 59.091, kg, PRN Elevated BP, Start date: 08/23/16 14:49:00 CDT, Duration: 2 doses or times, Stop date: Limited # of times Flumazenil 2017-0 No 0.2 mg, Jhonathan jaime 4-12 Route: l 19:49: IVP, PRN, [place] 00 Dosing Weight 59.091, kg, PRN Benzodiaze pine Reversal, Initial dose, Start date: 08/23/16 14:49:00 CDT, Duration: 30 day, Stop date: 09/22/16 14:48:00 CDT Hydromorpho 2017-0 No 0.5 mg, Mem oria ne 4-12 Route: l 19:49: IVP, [place] 00 Q5Min, Dosing Weight 59.091, kg, PRN Pain Score 7-10, Start date: 08/23/16 14:49:00 CDT, Duration: 4 doses or times, Stop date: Limited # of times Calcium 2017-0 No 1,000 mL, Memor ia Chloride 4-12 Rate: 125 l 0.0014 19:49: ml/hr, [place] MEQ/ML / 00 Infuse Potassium over: 8 Chloride hr, Route: 0.004 IV, Dosing MEQ/ML / Weight Sodium 59.091 kg, Chloride Total 0.103 Volume: MEQ/ML / 1,000, Sodium Start Lactate date: 0.028 08/23/16 MEQ/ML 14:49:00 Injectable CDT, Solution Duration: 30 day, Stop date: 09/22/16 14:48:00 CDT Naloxone 2017-0 No 0.4 mg, Memori a 412 Route: l 19:49: IVP, [place] 00 Q2MIN, Dosing Weight 59.091, kg, PRN Narcotic Reversal, Start date: 08/23/16 14:49:00 CDT, Duration: 8 doses or times, Stop date: Limited # of times Albuterol 2017-0 No 3 mL, Memoria 0.833 MG/ML 08-23 Route: l / 17:45: NEB, [place] Ipratropium 00 Dosing [place] Weight 0.167 MG/ML 59.091, Inhalant kg, ONCE, Solution STAT, Start date: 08/23/16 12:45:00 CDT, Stop date: 08/23/16 12:45:00 CDT Calcium 2017-0 No 1,000 mL, Memor ia Chloride 12 Rate: 25 l 0.0014 17:45: ml/hr, [place] MEQ/ML / 00 Infuse Potassium over: 40 Chloride hr, Route: 0.004 IV, Dosing MEQ/ML / Weight Sodium 59.091 kg, Chloride Total 0.103 Volume: MEQ/ML / 1,000, Sodium Start Lactate date: 0.028 08/23/16 MEQ/ML 12:45:00 Injectable CDT, Solution Duration: 30 day, Stop date: 09/22/16 12:44:00 CDT Sodium 2017-0 No 1,000 mL, Memori a Chloride 2-06 Rate: 25 l 0.154 16:43: ml/hr, [place] MEQ/ML 00 Infuse Injectable over: 40 Solution hr, Route: IV, Dosing Weight 60.455 kg, Total Volume: 1,000, Start date: 06/19/16 10:43:00 [employer], Duration: 30 day, Stop date: 07/19/16 10:42:00 [employer] Fish Oil 2017-0 Yes PO, 0 Memoria 2-06 Refill(s) l 16:40: [place] 00 Sodium 2016- No 1,000 mL, Memori a Chloride 0-04 Rate: 25 l 0.154 14:09: ml/hr, [place] MEQ/ML 00 Infuse Injectable over: 40 Solution hr, Route: IV, Dosing Weight 60.511 kg, Total Volume: 1,000, Start date: 02/15/16 9:09:00 CDT, Duration: 1 day, Stop date: 02/16/16 9:08:00 CDT biotin 2016-0 Yes PO, Daily, Memor ia 9-26 0 l 18:15: Refill(s) [place] Promethazin No 6.25 mg, Me moria e 09-27 Route: l 18:41: IVPB, [place] ONCE, Dosing Weight 57.727, kg, PRN Nausea & Vomiting, Start date: 09/28/15 13:41:00 CDT Ondansetron No 4 mg, Memor ia 09-27 Route: l 18:41: IVP, ONCE, [place] Dosing Weight 57.727, kg, PRN Nausea & Vomiting, Start date: 09/28/15 13:41:00 CDT Diphenhydra 2015- No 12.5 mg, Me moria mine 09-27 Route: l 18:41: IVP, Drug form: INJ, Q6H, Dosing Weight 57.727, kg, PRN Itching, Start date: 09/28/15 13:41:00 CDT, Duration: 30 day, Stop date: 10/28/15 13:40:00 CDT Albuterol No 2.49 mg, Jhonathan jaime 0.83 MG/ML 09-27 Route: l Inhalant 18:41: NEB, [place] Solution 00 Q20Min, Dosing Weight 57.727, kg, PRN Wheezing, Priority: STAT, Start date: 09/28/15 13:41:00 CDT, Duration: 30 day, Stop date: 10/28/15 13:40:00 CDT Naloxone 2015- No 0.04 mg, Memor ia 5-17 Route: l 18:41: IVP, [place] 00 Q2MIN, Dosing Weight 57.727, kg, PRN Narcotic Reversal, Start date: 09/28/15 13:41:00 CDT, Duration: 8 doses or times, Stop date: Limited # of times Flumazenil 2015-0 No 0.2 mg, Jhonathan jaime 09-27 Route: l 18:41: IVP, PRN, [place] 00 Dosing Weight 57.727, kg, PRN Benzodiaze pine Reversal, Initial dose, Start date: 09/28/15 13:41:00 CDT, Duration: 30 day, Stop date: 10/28/15 13:40:00 CDT Sodium 2016-0 No 500 mL, Memoria Chloride 09-27 Rate: 125 l 0.154 18:41: ml/hr, [place] MEQ/ML 00 Infuse Injectable over: 4 Solution hr, Route: IV, Dosing Weight 57.727 kg, Total Volume: 500, Start date: 09/28/15 13:41:00 CDT, Duration: 30 day, Stop date: 10/28/15 13:40:00 CDT Glucose 50 2016-0 No 1,000 mL, Me moria MG/ML / 09-27 Rate: 125 l Sodium 18:41: ml/hr, [place] Chloride 00 Infuse 0.154 over: 8 MEQ/ML hr, Route: Injectable IV, Dosing Solution Weight 57.727 kg, Total Volume: 1,000, Start date: 09/28/15 13:41:00 CDT, Duration: 30 day, Stop date: 10/28/15 13:40:00 CDT Meperidine 2015-0 No 12.5 mg, Mem oria -17 Route: l 18:41: IVP, [place] 00 Q30Min, Dosing Weight 57.727, kg, PRN Other -See Comment, For shivering, Start date: 09/28/15 13:41:00 CDT, Duration: 2 doses or times, Stop date: Limited # of times Hydromorpho 2015-0 No 0.5 mg, Mem oria ne -17 Route: l 18:41: IVP, [place] 00 Q5Min, Dosing Weight 57.727, kg, PRN Pain Score 7-10, Start date: 09/28/15 13:41:00 CDT, Duration: 4 doses or times, Stop date: Limited # of times Fentanyl 2015- No 25 Memoria 5-17 microgram, l 18:41: Route: [place] 00 IVP, Q5Min, Dosing Weight 57.727, kg, PRN Pain Score 4-6, Start date: 09/28/15 13:41:00 CDT, Duration: 4 doses or times, Stop date: Limited # of times Oxycodone No 10 mg, Memori a 5-17 Route: PO, l 18:41: Drug form: [place] 00 TAB, Q4H, Dosing Weight 57.727, kg, PRN Pain Score 7-10, Start date: 09/28/15 13:41:00 CDT, Duration: 30 day, Stop date: 10/28/15 13:40:00 CDT ondansetron No Route: IV, Memoria (ANES) 5-17 Drug form: l 18:14: INJ, ONCE, Stop date: 09/28/15 13:14:00 CDT propofol No Route: IV, Mem oria (ANES) 5-17 Drug form: l 18:09: INJ, ONCE, Stop date: 09/28/15 13:09:00 CDT Lactated No Route: IV, Mem oria Ringers 5-17 Total l Injection 17:10: Volume: Adela nn IV (ANES) 00 1,000, (ANES) Start date: 09/28/15 12:10:00 CDT, Stop date: 09/28/15 13:10:00 CDT heparin 2015- Yes Notes: Memoria sodium, 5-17 porcine l porcine 16:06: heparin [place] 2500 UNT/ML 00 Injectable Solution Calcium No 1,000 mL, Memor ia Chloride 5-17 Rate: 25 l 0.0014 16:04: ml/hr, [place] MEQ/ML / 00 Infuse Potassium over: 40 Chloride hr, Route: 0.004 IV, Dosing MEQ/ML / Weight Sodium 57.727 kg, Chloride Total 0.103 Volume: MEQ/ML / 1,000, Sodium Start Lactate date: 0.028 05/17/16 MEQ/ML 11:04:00 Injectable CDT, Solution Duration: 30 day, Stop date: 10/28/15 11:03:00 CDT Sodium 2016-0 No 500 mL, Memoria Chloride 5-17 Rate: 125 l 0.154 16:04: ml/hr, [place] MEQ/ML 00 Infuse Injectable over: 4 Solution hr, Route: IV, Dosing Weight 57.727 kg, Total Volume: 500, Start date: 09/28/15 11:04:00 CDT, Duration: 30 day, Stop date: 10/28/15 11:03:00 CDT Glucose 50 2016-0 No 1,000 mL, Me moria MG/ML / 5-17 Rate: 25 l Sodium 16:04: ml/hr, [place] Chloride 00 Infuse 0.154 over: 40 MEQ/ML hr, Route: Injectable IV, Dosing Solution Weight 57.727 kg, Total Volume: 1,000, Start date: 09/28/15 11:04:00 CDT, Duration: 30 day, Stop date: 10/28/15 11:03:00 CDT Normosol-R 2016-0 No 1,000 mL, Me moria 5-17 Rate: 25 l 16:04: ml/hr, [place] 00 Infuse over: 40 hr, Route: IV, Dosing Weight 57.727 kg, Total Volume: 1,000, Start date: 09/28/15 11:04:00 CDT, Duration: 30 day, Stop date: 10/28/15 11:03:00 CDT Unknown 2015- Yes Refill(s) [facility] Home 5-17 0 l Medication 14:33: [place] 00 Vitamin B12 2015-0 Yes 500 Memori a 500 mcg 5-17 microgram l oral tablet 14:33: = 1 tab, He rmann 00 PO, Daily, # 30 tab, 0 Refill(s) Amlodipine 2015-0 Yes 2.5 mg = 1 M emoria 2.5 MG Oral 5-17 tab, PO, l Tablet 14:32: Daily, # Rocky [Norvasc] 00 30 tab, 0 Refill(s) Protonix 2015-0 No Notes: For Mem oria 2-25 IV push l 15:00: reconstitu Rocky 00 te with 10 ml 0.9% sodium chloride and push over 2 minutes. (Same as: Protonix) Fish Oil No 1,000 mg, Jhonathan jaime -25 Route: PO, l 15:00: Drug form: [place] 00 CAP, Daily, Dosing Weight 55.909, kg, Start date: 07/08/15 9:00:00, Duration: 30 day, Stop date: 08/06/15 9:00:00 Lisinopril No Notes: Memor ia 2-25 (Same as: l 03:00: Prinivil, Rocky 00 Zestril) NURSE - No NURSE - Memoria Please 2-24 Please l bring home 21:00: bring home H ermann med Fish 00 med Fish Oil to Oil to Pharmacy Pharmacy for label for label, 1, Drug form: MISC, Route: MISC, TID, 07/07/15 15:00:00, Duration: 30 day, Stop date: 08/06/15 9:00:00 Lactulose No Notes: Memori a 667 MG/ML 2-24 (Same l Oral 19:21: as:Chronul [place] Solution 00 ac) Amoxicillin Yes 5 ml, PO, M emoria 50 MG/ML / 2-24 Q12H, X 7 l Clavulanate 19:18: day, # 70 H ermann 12.5 MG/ML 00 ml, 0 Oral Refill(s), Suspension called to [Augmentin] pharmacy Fish Oil Yes 1,000 mg, Jhonathan jaime 1000 mg 2-24 PO, Daily, l oral 19:16: 0 Rocky capsule 00 Refill(s) Protonix No Notes: For Mem oria 2-24 IV push l 16:53: reconstitu Rocky 00 te with 10 ml 0.9% sodium chloride and push over 2 minutes. (Same as: Protonix) Fleet Enema No 133 mL, Mem oria 2-24 Route: MD, l 14:54: Dosing [place] 00 Weight 55.909, kg, ONCE, Start date: 07/07/15 8:54:00, Stop date: 07/07/15 8:54:00 Zosyn No Notes: Memoria 2-24 (Same as: l 04:00: Zosyn) Rocky 00 Dosing based on Piperacill in component pantoprazol No Notes: For Memoria e -23 IV push l 22:58: reconstitu te with 10 ml 0.9% sodium chloride and push over 2 minutes. (Same as: Protonix) Ondansetron No Notes: Jhonathan jaime -23 (Same as: l 22:58: Zofran) MEDICATION WASTE Product Size: 4 mg Product Wasted: ___ mg Enoxaparin No Notes: Memor ia - (Same as: l 22:00: Lovenox) D5W 1/2NS No 1,000 mL, Mem oria 1,000 mL 07-06 Rate: 125 l 21:57: ml/hr, Infuse over: 8 hr, Route: IV, Dosing Weight 57.545 kg, Total Volume: 1,000, Start date: 07/06/15 15:57:00, Duration: 30 day, Stop date: 08/05/15 15:56:00 Reglan No 10 mg, Memoria 07-02 Route: l 23:55: IVP, ONCE, Dosing Weight 57.545, kg, Start date: 07/02/15 17:55:00, Stop date: 07/02/15 17:55:00 Dexamethaso No 4 mg, Memor ia ne 07-02 Route: l 23:55: IVP, ONCE, Dosing Weight 57.545, kg, Start date: 07/02/15 17:55:00, Stop date: 07/02/15 17:55:00 Hydralazine No 10 mg, Jhonathan jaime 07-02 Route: l 22:46: IVP, ONCE, Dosing Weight 57.545, kg, Start date: 07/02/15 16:46:00, Stop date: 07/02/15 16:46:00 ketOROLAC No 15 mg, Memori a 15 mg/mL 07-02 Route: IV, l injectable 22:38: Drug form: H ermann solution 00 INJ, ONCE, Dosing Weight 57.545, kg, Start date: 07/02/15 16:38:00, Stop date: 07/02/15 16:38:00 Acetaminoph 2016-0 No 1 tab, Jhonathan jaime en 325 MG / 2-19 Route: PO, l Hydrocodone 22:01: Drug Form: [place] Bitartrate 00 TAB, 10 MG Oral Dosing Tablet Weight [[place] 58.182, 10/325] kg, Q6H, PRN Pain, Start date: 07/02/15 16:01:00, Duration: 30 day, Stop date: 08/01/15 16:00:00 Ofirmev 2016-0 No or = 50 Memori a 2-19 kg, Start l 22:01: date: [place] 07/02/15 16:01:00 Oxycodone 2016-0 No 10 mg, Memori a 2-19 Route: PO, l 22:01: Drug form: Rocky 00 TAB, Q4H, Dosing Weight 57.545, kg, PRN Pain Score 7-10, Start date: 07/02/15 16:01:00, Duration: 30 day, Stop date: 08/01/15 16:00:00 Ondansetron 2016-0 No 4 mg, Memor ia 2-19 Route: l 22:01: IVP, ONCE, Dosing Weight 57.545, kg, PRN Nausea & Vomiting, Start date: 07/02/15 16:01:00 Fentanyl 2015-0 No 50 Memoria 2-19 microgram, l 22:01: Route: IVP, Q5Min, Dosing Weight 57.545, kg, PRN Pain Score 7-10, Start date: 07/02/15 16:01:00, Duration: 2 doses or times, Stop date: Limited # of times Ketorolac 2016-0 No 30 mg, Memori a 2-19 Route: l 22:01: IVP, ONCE, Dosing Weight 57.545, kg, Start date: 07/02/15 16:01:00, Duration: 1 doses or times, Stop date: 07/02/15 16:01:00 Flumazenil 2016-0 No 0.2 mg, Jhonathan jaime 2-19 Route: l 22:01: IVP, PRN, Dosing Weight 57.545, kg, PRN Benzodiaze pine Reversal, Initial dose, Start date: 07/02/15 16:01:00, Duration: 30 day, Stop date: 08/01/15 17:00:00 Hydromorpho No 0.5 mg, Mem oria ne 07-02 Route: l 22:01: IVP, [place] 00 Q5Min, Dosing Weight 57.545, kg, PRN Pain Score 7-10, Start date: 07/02/15 16:01:00, Duration: 4 doses or times, Stop date: Limited # of times Naloxone No 0.04 mg, Memor ia 07-02 Route: l 22:01: IVP, [place] 00 Q2MIN, Dosing Weight 57.545, kg, PRN Narcotic Reversal, Start date: 07/02/15 16:01:00, Duration: 8 doses or times, Stop date: Limited # of times Hydralazine No Notes: Jhonathan jaime 07-02 (Same as: l 21:52: Apresoline ) Push over 5 minutes ondansetron No Route: IV, Memoria (ANES) 07-02 Drug form: l 21:31: INJ, ONCE, Stop date: 07/02/15 15:31:00 propofol No Route: IV, Mem oria (ANES) 07-02 Drug form: l 21:28: INJ, ONCE, Stop date: 07/02/15 15:28:00 rocuronium No Route: IV, M emoria (ANES) 07-02 Drug form: l 21:26: INJ, ONCE, Stop date: 07/02/15 15:26:00 cefOXitin No Route: IV, Me moria (ANES) 2- Drug form: l 21:22: INJ, ONCE, Stop date: 07/02/15 15:22:00 Lactated No Route: IV, Mem oria Ringers 07-02 Total l Injection 20:30: Volume: Adela nn IV (ANES) 00 1,000, (ANES) Start date: 07/02/15 14:30:00, Stop date: 07/02/15 15:30:00 Cefoxitin No 2 gm, Memoria 2-19 Route: l 19:01: IVPB, [place] 00 ONCE, Dosing Weight 57.545, kg, 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, Start date: 07/02/15 13:01:00, Stop date: 07/02/15 13:01:00 heparin 2016-0 No Route: Memoria sodium, 2-19 SUB-Q, l porcine 18:58: ONCE, Rocky 2500 UNT/ML 00 Dosing Injectable Weight Solution 57.545, kg, Start date: 07/02/15 12:58:00, Stop date: 07/02/15 12:58:00 Calcium No 1,000 mL, Memor ia Chloride 2-19 Rate: 25 l 0.0014 18:39: ml/hr, [place] MEQ/ML / 00 Infuse Potassium over: 40 Chloride hr, Route: 0.004 IV, Dosing MEQ/ML / Weight Sodium 57.545 kg, Chloride Total 0.103 Volume: MEQ/ML / 1,000, Sodium Start Lactate date: 0.028 07/02/15 MEQ/ML 12:39:00, Injectable Duration: Solution 30 day, Stop date: 08/01/15 12:38:00 Fish Oil Yes 1,000 mg = Mem oria 1000 mg 2-19 1 cap, PO, l oral 17:42: Daily, 0 [place] capsule 00 Refill(s) omeprazole Yes 20 mg = 1 Me moria 20 mg oral 2-19 tab, PO, l enteric 17:42: BID, # 60 Adela nn coated 00 tab, 0 tablet Refill(s) Calcium No 1,000 mL, Memor ia Chloride 3-31 Rate: 25 l 0.0014 14:33: ml/hr, [place] MEQ/ML / 00 Infuse Potassium over: 40 Chloride hr, Route: 0.004 IV, Dosing MEQ/ML / Weight Sodium 58.182 kg, Chloride Total 0.103 Volume: MEQ/ML / 1,000, Sodium Start Lactate date: 0.028 08/11/14 MEQ/ML 9:33:00, Injectable Duration: Solution 30 day, Stop date: 09/10/14 9:32:00 Oxycodone 2015-0 No 5 mg, Memoria Hydrochlori 3-31 Route: PO, l de 5 MG 14:33: Drug form: Herm steph Oral Tablet 00 TAB, Q4H, Dosing Weight 58.182, kg, PRN Pain Score 4-6, Start date: 08/11/14 9:33:00, Duration: 30 day, Stop date: 09/10/14 9:32:00 Cefoxitin No 2 gm, Memoria 3-31 Route: IV, l 14:30: ONCE, [place] 00 Dosing Weight 58.182, kg, Start date: 08/11/14 9:30:00, Stop date: 08/11/14 9:30:00 heparin No 5,000 Memoria 3-31 unit, l 14:25: Route: Rocky 00 SUB-Q, ONCE, Dosing Weight 58.182, kg, Start date: 08/11/14 9:25:00, Stop date: 08/11/14 9:25:00 tramadol Yes 50 mg = 1 Jhonathan jaime hydrochlori 1-07 tab, PO, l de 50 MG 20:00: Q6H, Pain, Her garnett Oral Tablet 00 # 40 tab, 0 Refill(s) pantoprazol Yes 40 mg = 1 M emoria e 40 mg 1-07 tab, PO, l oral 20:00: BID, # 30 [place] enteric 00 tab, 0 coated Refill(s) tablet Omeprazole No 20 mg, Memor ia 05-20 Route: PO, l 15:00: Drug form: [place] 00 ECTAB, BID, Dosing Weight 62.273, kg, Start date: 05/20/14 9:00:00, Duration: 30 day, Stop date: 06/18/14 17:00:00 Lisinopril No Notes: Memor ia -07 (Same as: l 15:00: Prinivil, [place] Zestril) Protonix No Notes: Memoria 1-07 Tablet l 15:00: should not Rocky be chewed or crushed. (Same as: Protonix) Ketorolac 2014-0 No 4 days. Jhonathan jaime 1-07 l 06:00: [place] Enoxaparin No Notes: Memor ia 1-07 (Same as: l 01:00: Lovenox) [place] Acetaminoph No Notes: Max Memoria en 05-20 acetaminop l 00:18: hen 4000 [place] 00 mg/day (4 gm/day). (Same as: Tylenol Extra Strength) Phenergan No Notes: Do Mem oria 05-19 not give l 21:03: IV push. [place] (Same as: Phenergan) Ketorolac No 4 days Memor ia 05-19 l 21:01: [place] Morphine No Notes: Memoria 05-19 (Same l 20:04: as:MORPhin e Sulfate) Saline No Notes: Memoria Flush 0.9% 05-19 (Same as: l 18:51: BD [place] 00 Posiflush) Sodium No 1,000 mL, Memori a Chloride 05-19 Rate: 75 l 0.154 18:51: ml/hr, [place] MEQ/ML 00 Infuse Injectable over: 13.3 Solution hr, Route: IV, Dosing Weight 60.909 kg, Total Volume: 1,000, Start date: 05/19/14 12:51:00, Duration: 30 day, Stop date: 06/18/14 12:50:00 Ondansetron No Notes: Jhonathan jaime 05-19 (Same as: l 18:51: Zofran) [place] Acetaminoph No Notes: Do M emoria en 05-19 not exceed l 18:51: 4 gm/day. [place] (Same as: Tylenol) Morphine No 2 mg, Memoria 05-19 Route: l 18:51: IVP, Q4H, [place] Dosing Weight 60.909, kg, PRN Pain Score 4-6, Start date: 05/19/14 12:51:00, Duration: 30 day, Stop date: 06/18/14 12:50:00 Sodium No 500 mL, Memoria Chloride 05-19 500 ml/hr, l 0.154 17:48: Infuse [place] MEQ/ML 00 Over: 1 Injectable hr, Route: Solution IV, ONCE, Priority: STAT, Dosing Weight 60.909 kg, Start date: 05/19/14 11:48:00, Duration: 1 doses or times, Stop date: 05/19/14 11:48:00 Promethazin 2014-0 No 12.5 mg, Me moria e 05-19 Route: l 17:32: IVPB, [place] 00 ONCE, Dosing Weight 60.909, kg, Start date: 05/19/14 11:32:00, Stop date: 05/19/14 11:32:00 Hydralazine 2014-0 No Notes: Jhonathan jaime 05-19 (Same as: l 16:11: Apresoline ) Push over 5 minutes Acetaminoph 2015-0 No 1 tab, Jhonathan jaime en 325 MG / 05-19 Route: PO, l Hydrocodone 15:51: Drug Form: [place] Bitartrate 00 TAB, 5 MG Oral Dosing Tablet Weight [[place] 60.909, 5/325] kg, Q4H, PRN Pain, Start date: 05/19/14 9:51:00, Duration: 30 day, Stop date: 06/18/14 9:50:00 Acetaminoph 2014-0 No 1,000 mg, M emoria en 05-19 Route: l 15:51: IVPB, Drug form: INJ, ONCE, Dosing Weight 60.909, kg, PRN Pain Score 1-3, Start date: 05/19/14 9:51:00, Duration: 1 doses or times, Stop date: Limited # of times Ondansetron 2014-0 No 4 mg, Memor ia 05-19 Route: l 15:51: IVP, ONCE, Dosing Weight 60.909, kg, PRN Nausea & Vomiting, Start date: 05/19/14 9:51:00 Naloxone 2014-0 No 0.04 mg, Memor ia 05-19 Route: l 15:51: IVP, [place] 00 Q2MIN, Dosing Weight 60.909, kg, PRN Narcotic Reversal, Start date: 05/19/14 9:51:00, Duration: 8 doses or times, Stop date: Limited # of times Meperidine 2014-0 No 12.5 mg, Mem oria 05-19 Route: l 15:51: IVP, [place] 00 Q30Min, Dosing Weight 60.909, kg, PRN Other -See Comment, For shivering, Start date: 05/19/14 9:51:00, Duration: 2 doses or times, Stop date: Limited # of times Hydromorpho No 0.5 mg, Mem oria ne 05-19 Route: l 15:51: IVP, [place] 00 Q5Min, Dosing Weight 60.909, kg, PRN Pain Score 7-10, Start date: 05/19/14 9:51:00, Duration: 4 doses or times, Stop date: Limited # of times Flumazenil No 0.2 mg, Jhonathan jaime 05-19 Route: l 15:51: IVP, PRN, [place] 00 Dosing Weight 60.909, kg, PRN Benzodiaze pine Reversal, Initial dose, Start date: 05/19/14 9:51:00, Duration: 30 day, Stop date: 06/18/14 9:50:00 Fentanyl No 25 Memoria 1- microgram, l 15:51: Route: [place] 00 IVP, Q5Min, Dosing Weight 60.909, kg, PRN Pain Score 4-6, Start date: 05/19/14 9:51:00, Duration: 4 doses or times, Stop date: Limited # of times Ancef No 2 gm, Memoria 1-06 Route: l 14:12: IVPB, [place] 00 ONCE, Dosing Weight 60.909, kg, Start date: 05/19/14 8:12:00, Stop date: 05/19/14 8:12:00 heparin, No 5,000 Memoria porcine 06 unit, l 14:09: Route: [place] 00 SUB-Q, ONCE, Dosing Weight 60.909, kg, Start date: 05/19/14 8:09:00, Stop date: 05/19/14 8:09:00 Calcium 2014-0 No 1,000 mL, Memor ia Chloride 06 Rate: 25 l 0.0014 13:58: ml/hr, [place] MEQ/ML / 00 Infuse Potassium over: 40 Chloride hr, Route: 0.004 IV, Dosing MEQ/ML / Weight Sodium 60.909 kg, Chloride Total 0.103 Volume: MEQ/ML / 1,000, Sodium Start Lactate date: 0.028 05/19/14 MEQ/ML 7:58:00, Injectable Duration: Solution 30 day, Stop date: 06/18/14 7:57:00 Sodium 2014-1 No 500 mL, Memoria Chloride 2-16 Rate: 25 l 0.154 13:51: ml/hr, [place] MEQ/ML 00 Infuse Injectable over: 20 Solution hr, Route: IV, Dosing Weight 60.909 kg, Total Volume: 500, Start date: 04/28/14 7:51:00, Duration: 30 day, Stop date: 05/28/14 7:50:00 Ondansetron 2014-0 No 4 mg, Memor ia 2-26 Route: l 20:12: IVP, Drug [place] form: INJ, ONCE, Dosing Weight 54.545, kg, Priority: STAT, Start date: 07/09/13 14:12:00, Stop date: 07/09/13 14:12:00 Morphine 2014-0 No 6 mg, Memoria 2-26 Route: l 19:38: IVP, ONCE, [place] 00 Dosing Weight 54.545, kg, Start date: 07/09/13 13:38:00, Stop date: 07/09/13 13:38:00 Sodium 2014-0 No 1,000 mL, Memori a Chloride 2-26 Rate: 75 l 0.154 19:36: ml/hr, [place] MEQ/ML 00 Infuse Injectable over: 13.3 Solution hr, Route: IV, Dosing Weight 54.545 kg, Total Volume: 1,000, Priority: STAT, Start date: 07/09/13 13:36:00, Duration: 1 doses or times, Stop date: 07/10/13 2:53:00 Sodium 2014-0 No 1,000 mL, Memori a Chloride 2-26 Rate: l 0.9% 19:36: 1,000 [place] (Bolus) IV 00 ml/hr, 1,000 mL Infuse over: 1 hr, Route: IV, Dosing Weight 54.545 kg, Total Volume: 1,000, Priority: STAT, Start date: 07/09/13 13:36:00, Duration: 1 doses or times, Stop date: 07/09/13 14:35:00, Bolus DoseBolus Dose Labetalol 2013-0 Yes 20 mg, 4 Jhonathan jaime 2-26 mL, Route: l 18:35: IVP, Drug [place] 00 form: INJ, ONCE, Dosing Weight 54.545, kg, Start date: 07/09/13 12:35:00, Stop date: 07/09/13 12:35:00(S laine as: Normodyne, Trandate) Push over 2 minutes Give bolus over 2-3 minutes. Ondansetron 2014-0 No 4 mg, Memor ia 2-26 Route: l 17:03: IVP, Drug [place] 00 form: INJ, ONCE, Dosing Weight 54.545, kg, Priority: STAT, Start date: 07/09/13 11:03:00, Stop date: 07/09/13 11:03:00 Morphine 2014-0 No 4 mg, Memoria 2-26 Route: l 17:03: IVP, ONCE, [place] 00 Dosing Weight 54.545, kg, Priority: STAT, Start date: 07/09/13 11:03:00, Stop date: 07/09/13 11:03:00 Sodium 2014-0 No 1,000 mL, Memori a Chloride 2-26 Rate: l 0.9% 17:03: 1,000 [place] (Bolus) IV 00 ml/hr, 1,000 mL Infuse over: 1 hr, Route: IV, Dosing Weight 54.545 kg, Total Volume: 1,000, Priority: STAT, Start date: 07/09/13 11:03:00, Duration: 1 doses or times, Stop date: 07/09/13 12:02:00, Bolus DoseBolus Dose Sodium 2014-0 No 1,000 mL, Memori a Chloride 2-26 Rate: 75 l 0.154 17:03: ml/hr, [place] MEQ/ML 00 Infuse Injectable over: 13.3 Solution hr, Route: IV, Dosing Weight 54.545 kg, Total Volume: 1,000, Priority: STAT, Start date: 07/09/13 11:03:00, Duration: 1 doses or times, Stop date: 07/10/13 0:20:00 Omeprazole 2012-0 Yes (Active) Me moria 20 MG Oral 6-05 l Capsule 00:06: [place] Delayed 10 Release Lisinopril Yes (Active) Me moria 20 MG Oral 6-05 l Tablet 00:06: Rocky 10 influenza 2009-05 No SYSTEM 0.5 ml, Mem oria virus 0-02 SYSTEM Route: IM, l vaccine, 04:00: Drug Form: Her garnett inactivated 00 INJ, ONCALL, Start date: 02/11/10 23:00:00, Duration: 1 doses or timesSame as: Fluvirin Contains 15 mcg of influenza virus antigen from each of 3 viruses H1N1, H3N2, and 3,11 pneumococca No SYSTEM 0.5 ml, M emoria l 23-valent 9-03 SYSTEM Route: IM, l vaccine 14:00: Drug Form: Herm steph 00 INJ, Start date: 01/14/10 9:00:00, Stop date: 01/14/10 9:00:00 pneumococca 2008- No SYSTEM 0.5 ml, M emoria l 23-valent 0-18 SYSTEM Route: IM, l vaccine 04:16: Drug Form: Kisha steph 57 INJ, ONCALL, Start date: 02/27/09 23:16:57, Stop date: 03/29/09 23:11:57(Yesica jang as: PNU-IMUNE 23) Aspirin 81 Aspirin 81 Yes Gaudencio 1 tablet [facility] Fish Oil Fish Oil Yes [facility] CAPS CAPS [facility] [place] [facility] ans amLODIPine amLODIPine Yes QD TAKE 1 U nivers Besylate Besylate TABLET ity o f 2.5 MG Oral 2.5 MG Oral DAILY [place] Tablet Tablet DIRECTED. Physic i ans amLODIPine amLODIPine Yes Uni vers Besylate-Va Besylate-Va i ty of lsartan lsartan [place] 5-160 MG 5-160 MG Physici Oral Tablet Oral Tablet a ns Pantoprazol Pantoprazol Yes U nivers e Sodium 40 e Sodium 40 i ty of MG Oral MG Oral [place] Tablet Tablet Physici Delayed Delayed ans Release Release cloNIDine cloNIDine Yes Unive rs HCl - 0.1 HCl - 0.1 ity o f MG Oral MG Oral [place] Tablet Tablet Physici ans Wanda Low Wanda Low Yes Unive rs Dose 81 MG Dose 81 MG ity of Oral Tablet Oral Tablet [place] Delayed Delayed Physici Release Release ans Vital Signs Vital Name Observation Time Observation Value Comments Source Systolic blood 2019-06-02 133 mm[Hg] [place] pressure 19:00:00 [facility] Diastolic blood 2019-06-02 63 mm[Hg] [place] pressure 19:00:00 [facility] Heart rate 2019-06-02 65 /min [place] 19:00:00 [facility] Respiratory rate 2019-06-02 22 /min [facility] 19:00:00 [facility] Oxygen saturation 2019-06-02 96 /min [place] in Arterial blood 19:00:00 [facility] by Pulse oximetry Body temperature 2019-06-02 36.5 Gege [place] 17:00:00 [facility] Body height 2019-06-02 154.9 cm [place] 12:40:00 [facility] Body weight 2019-06-02 60.924 kg [place] 12:40:00 [facility] BMI 2019-06-02 25.38 kg/m2 [place] 12:40:00 [facility] BP Systolic 2019-04-09 146 mm[Hg] Location: [facility] 14:07:00 Position: [place] [facility] BP Diastolic 2019-04-09 82 mm[Hg] Location: [facility] 14:07:00 Position: [place] [facility] Height 2019-04-09 61 [in_us] [facility] 14:07:00 [place] [facility] Weight 2019-04-09 134.5 [lb_av] [facility] 14:07:00 [place] [facility] Body Mass Index 2019-04-09 25.41 kg/m2 [facility] o [facility] Calculated 14:07:00 [place] [facility] Temperature 2019-04-09 98.2 [degF] Method: Oral [facility] 14:07:00 [place] [facility] Heart Rate 2019-04-09 61 /min [facility] 14:07:00 [place] [facility] Respiration Rate 2019-04-09 18 /min [facility] 14:07:00 [place] [facility] O2 SAT 2019-04-09 98 % Source: [facility] 14:07:00 [place] [facility] Respitory Rate 2019-04-08 [facility] 20:00:00 Systolic (mm Hg) 2019-04-08 [facility] He rmann 20:00:00 Diastolic (mm Hg) 2019-04-08 [facility] ermann 20:00:00 Respitory Rate 2019-04-08 [facility] Herm steph 19:45:00 Systolic (mm Hg) 2019-04-08 [facility] rmann 19:45:00 Diastolic (mm Hg) 2019-04-08 [facility] Darling ermann 19:45:00 Respitory Rate 2019-04-08 [facility] steph 19:44:00 Systolic (mm Hg) 2019-04-08 [facility] Oconnor rmann 19:44:00 Diastolic (mm Hg) 2019-04-08 [facility] ermann 19:44:00 Weight 2019-04-08 [facility] Crocker n 17:30:00 BMI Calculated 2019-04-08 [facility] Beard steph 17:30:00 Heart Rate 2019-04-08 [facility] Crocker n 17:30:00 Height 2019-04-07 154.94 cm [facility]iano Crocker n 19:22:00 BP Systolic 2019-03-19 145 mm[Hg] [facility] 15:20:[facility] Position: [place] [facility] BP Diastolic 2019-03-19 72 mm[Hg] [facility] 15:20:[facility] Position: [place] [facility] Weight 2019-03-19 136.8 [lb_av] [facility] 15:20:00 [place] [facility] Body Mass Index 2019-03-19 25.85 kg/m2 [facility] Calculated 15:20:00 [place] [facility] Heart Rate 2019-03-19 61 /min [facility] 15:20:00 [place] [facility] Respiration Rate 2019-03-19 18 /min [facility] 15:20:00 [place] [facility] O2 SAT 2019-03-19 99 % Source: [facility] 15:20:00 [place] [facility] BP Systolic 2018-03-05 133 mm[Hg] [facility] 12:45:00 Position: [place] [facility] S[facility] BP Diastolic 2018-03-05 68 mm[Hg] [facility] 12:45:00 Position: [place] [facility] Height 2018-03-05 61 [in_us] [facility] 12:45:00 [place] [facility] Weight 2018-03-05 134.2 [lb_av] [facility] 12:45:00 [place] [facility] Body Mass Index 2018-03-05 25.36 kg/m2 [facility] o f Calculated 12:45:00 [place] [facility] Heart Rate 2018-03-05 68 /min Location: You [facility] 12:45:00 Brachial [place] [facility] Artery; Respiration Rate 2018-03-05 18 /min [facility] 12:45:00 [place] [facility] BP Systolic 2017-12-31 182 mm[Hg] Location: [facility] 09:49:00 Position: [place] [facility] Sitting BP Diastolic 2017-12-31 72 mm[Hg] Location: [facility] 09:49:00 Position: [place] [facility] S[facility] Height 2017-12-31 61 [in_us] [facility] 09:49:00 [place] [facility] Weight 2017-12-31 132 [lb_av] [facility] 09:49:00 [place] [facility] Body Mass Index 2017-12-31 24.94 kg/m2 [facility] Calculated 09:49:00 [place] [facility] Heart Rate 2017-12-31 62 /min Location: L [facility] 09:49:00 Radial; [place] [facility] Quality: Normal BP Systolic 2017-11-29 148 mm[Hg] Location: [facility] 13:09:00 Position: [place] [facility] Sitting BP Diastolic 2017-11-29 76 mm[Hg] Location: [facility] 13:09:00 Position: [place] [facility] S[facility] Height 2017-11-29 61 [in_us] [facility] 13:09:00 [place] [facility] Weight 2017-11-29 131 [lb_av] [facility] 13:09:00 [place] [facility] Body Mass Index 2017-11-29 24.75 kg/m2 [facility] Calculated 13:09:00 [place] [facility] Temperature 2017-11-29 98.2 [degF] Method: Oral [facility] 13:09:00 [place] [facility] Heart Rate 2017-11-29 64 /min Location: [facility] 13:09:00 Brachial [place] [facility] Artery; Respiration Rate 2017-11-29 18 /min [facility] 13:09:00 [place] [facility] Systolic (mm Hg) 2017-11-22 [facility] rmann 21:10:00 Diastolic (mm Hg) 2017-11-22 [facility] ermann 21:10:00 Systolic (mm Hg) 2017-11-22 [facility] rmann 20:45:00 Diastolic (mm Hg) 2017-11-22 [facility] ermann 20:45:00 Respitory Rate 2017-11-22 [facility] 20:45:00 Systolic (mm Hg) 2017-11-22 [facility] rmann 20:30:00 Diastolic (mm Hg) 2017-11-22 [facility] ermann 20:30:00 Respitory Rate 2017-11-22 [facility] 20:30:00 Respitory Rate 2017-11-22 [facility] 20:15:00 Heart Rate 2017-11-22 [facility] Beardan n 14:55:00 BMI Calculated 2017-11-22 [facility] 14:55:00 Weight 2017-11-22 Fabiano Beardan n 14:55:00 Height 2017-11-20 154.94 cm Fabiano Beardan n 18:07:00 BP Systolic 2017-11-13 175 mm[Hg] Location: [facility]; [facility] 12:56:00 Position: [place] [facility] BP Diastolic 2017-11-13 76 mm[Hg] Location: [place]; [facility] 12:56:00 Position: [place] [facility] Height 2017-11-13 61 [in_us] [facility] 12:56:00 [place] [facility] Weight 2017-11-13 133 [lb_av] [facility] 12:56:00 [place] [facility] Body Mass Index 2017-11-13 25.13 kg/m2 [facility] o [facility] Calculated 12:56:00 [place] [facility] Temperature 2017-11-13 97.7 [degF] Method: Oral [facility] 12:56:00 [place] [facility] Heart Rate 2017-11-13 60 /min [facility] 12:56:00 [place] [facility] BP Systolic 2017-10-19 147 mm[Hg] Location: [place]; [facility] 13:36:00 Position: [place] [facility] Sitting BP Diastolic 2017-10-19 66 mm[Hg] Location: [facility] 13:36:00 Position: [place] [facility] Sitting Height 2017-10-19 61 [in_us] [facility] 13:36:00 [place] [facility] Weight 2017-10-19 131 [lb_av] [facility] 13:36:00 [place] [facility] Body Mass Index 2017-10-19 24.75 kg/m2 [facility] Calculated 13:36:00 [place] [facility] Temperature 2017-10-19 97.7 [degF] Method: Oral [facility] 13:36:00 [place] [facility] Heart Rate 2017-10-19 61 /min Location: [facility] 13:36:00 Radial; [place] [facility] Systolic (mm Hg) 2017-03-01 [facility] 21:24:00 Diastolic (mm Hg) 2017-03-01 [facility] H ermann 21:24:00 Temperature Oral 2017-03-01 99.0 F [facility] Elvin rmann (F) 21:24:00 Heart Rate 2017-03-01 [facility] 21:24:00 Systolic (mm Hg) 2017-03-01 [facility] 17:00:00 Diastolic (mm Hg) 2017-03-01 [facility] 17:00:00 Heart Rate 2017-03-01 [facility] n 17:00:00 Temperature Oral 2017-03-01 97.9 F [facility] (F) 17:00:00 Heart Rate 2017-03-01 [facility] 13:08:00 Temperature Oral 2017-03-01 98.3 F [facility] (F) 13:08:00 Systolic (mm Hg) 2017-03-01 [facility] 13:08:00 Diastolic (mm Hg) 2017-03-01 [facility] 13:08:00 Respitory Rate 2017-03-01 [facility] 12:31:00 Respitory Rate 2017-03-01 [facility] 10:18:00 Respitory Rate 2017-03-01 [facility] 05:00:00 BMI Calculated 2017-02-22 [facility] 17:56:00 Weight 2017-02-22 [facility] 17:56:00 Height 2017-02-22 152.4 cm [facility] 17:56:00 Respitory Rate 2017-02-14 [facility] 20:32:00 Systolic (mm Hg) 2017-02-14 [facility] 20:32:00 Diastolic (mm Hg) 2017-02-14 [facility] 20:32:00 Systolic (mm Hg) 2017-02-14 [facility] 20:01:00 Diastolic (mm Hg) 2017-02-14 [facility] 20:01:00 Respitory Rate 2017-02-14 [facility] 20:01:00 Systolic (mm Hg) 2017-02-14 [facility] 19:46:00 Diastolic (mm Hg) 2017-02-14 [facility] 19:46:00 Respitory Rate 2017-02-14 [facility] 19:46:00 Heart Rate 2017-02-14 [facility] 17:47:00 BMI Calculated 2017-02-13 [facility] 21:11:00 Height 2017-02-13 154.94 cm [facility] 21:11:00 Weight 2017-02-13 [facility] 21:11:00 Systolic (mm Hg) 2016-08-23 [facility] 20:19:00 Diastolic (mm Hg) 2016-08-23 [facility] 20:19:00 Respitory Rate 2016-08-23 [facility] 20:19:00 Systolic (mm Hg) 2016-08-23 [facility] 20:07:00 Diastolic (mm Hg) 2016-08-23 [facility] 20:07:00 Respitory Rate 2016-08-23 [facility] 20:07:00 Respitory Rate 2016-08-23 [facility] 19:52:00 Systolic (mm Hg) 2016-08-23 [facility] 19:52:00 Diastolic (mm Hg) 2016-08-23 [facility] 19:52:00 Height 2016-08-22 154.94 cm [facility] 20:32:00 BMI Calculated 2016-08-22 [facility] 20:32:00 Weight 2016-08-22 [facility] 20:32:00 Respitory Rate 2016-06-19 [facility] 18:30:00 Respitory Rate 2016-06-19 [facility] 18:15:00 Systolic (mm Hg) 2016-06-19 [facility] 18:15:00 Diastolic (mm Hg) 2016-06-19 [facility] 18:15:00 Respitory Rate 2016-06-19 [facility] 18:00:00 Systolic (mm Hg) 2016-06-19 [facility] 18:00:00 Diastolic (mm Hg) 2016-06-19 [facility] 18:00:00 Weight 2016-06-19 [facility] 16:46:00 Height 2016-06-19 154.94 cm [facility] 16[facility]46:00 BMI Calculated 2016-06-19 [facility] 16:46:00 Systolic (mm Hg) 2016-06-19 [facility] 16:27:00 Diastolic (mm Hg) 2016-06-19 [facility] 16:27:00 Systolic (mm Hg) 2016-02-15 [facility] 16:15:00 Diastolic (mm Hg) 2016-02-15 [facility] 16:15:00 Respitory Rate 2016-02-15 [facility] 16:15:00 Systolic (mm Hg) 2016-02-15 [facility] [facility] 16:00:00 Diastolic (mm Hg) 2016-02-15 [facility] 16:[facility]00 Respitory Rate 2016-02-15 [facility] 16:00:00 Systolic (mm Hg) 2016-02-15 [facility] 15:45:00 Diastolic (mm Hg) 2016-02-15 [facility] 15:45:00 Respitory Rate 2016-02-15 [facility] 15:45:00 Heart Rate 2016-02-07 [facility] 18:16:00 Temperature Oral 2016-02-07 98.1 F [facility] (F) 18:16:00 BMI Calculated 2016-02-07 [facility] 18:13:00 Weight 2016-02-07 [facility] 18:13:00 Height 2016-02-07 154.94 cm [facility] 18:13:00 Systolic (mm Hg) 2015-09-28 [facility] 20:15:00 Diastolic (mm Hg) 2015-09-28 [facility] 20:15:00 Systolic (mm Hg) 2015-09-28 [facility] 20:00:00 Diastolic (mm Hg) 2015-09-28 [facility] 20:00:00 Systolic (mm Hg) 2015-09-28 [facility] 19:30:00 Diastolic (mm Hg) 2015-09-28 [facility] 19:30:00 Respitory Rate 2015-09-28 [facility] 19:15:00 Respitory Rate 2015-09-28 [facility] 19:00:00 Respitory Rate 2015-09-28 [facility] 18:45:00 Height 2015-09-28 154.94 cm [facility] 14:43:00 BMI Calculated 2015-09-28 [facility] 14:43:00 Weight 2015-09-28 [facility] 14:43:00 Temperature Oral 2015-09-28 97.9 F [facility] (F) 14:40:00 Heart Rate 2015-09-28 [facility] 14:40:00 Systolic (mm Hg) 2015-07-07 [facility] 21:44:00 Diastolic (mm Hg) 2015-07-07 [facility] 21:44:00 Respitory Rate 2015-07-07 [facility] 21:44:00 Temperature Oral 2015-07-07 98.4 F [facility] (F) 21:44:00 Heart Rate 2015-07-07 [facility] 21:44:00 Respitory Rate 2015-07-07 [facility] 18:11:00 Heart Rate 2015-07-07 [facility] 18:11:00 Systolic (mm Hg) 2015-07-07 [facility] 18:11:00 Diastolic (mm Hg) 2015-07-07 [facility] 18:11:00 Temperature Oral 2015-07-07 98.3 F [facility] (F) 18:11:00 Temperature Oral 2015-07-07 98.5 F [facility] (F) 13:27:00 Heart Rate 2015-07-07 [facility] 13:27:00 Respitory Rate 2015-07-07 [facility] 13:27:00 Systolic (mm Hg) 2015-07-07 [facility] 13:27:00 Diastolic (mm Hg) 2015-07-07 [facility] 13:27:00 BMI Calculated 2015-07-06 [facility] 22:52:00 Weight 2015-07-06 [facility] 22:52:00 Height 2015-07-06 154.94 cm [facility] 22:52:00 Respitory Rate 2015-07-03 [facility] 00:00:00 Systolic (mm Hg) 2015-07-03 [facility] 00:00:00 Diastolic (mm Hg) 2015-07-03 [facility] 00:00:00 Systolic (mm Hg) 2015-07-02 [facility] 23:45:00 Diastolic (mm Hg) 2015-07-02 [facility] 23:45:00 Respitory Rate 2015-07-02 [facility] 23:45:00 Respitory Rate 2015-07-02 [facility] 23:15:00 Systolic (mm Hg) 2015-07-02 [facility] 23:15:00 Diastolic (mm Hg) 2015-07-02 [facility] 23:15:00 Heart Rate 2015-07-02 [facility] 18:16:00 Temperature Oral 2015-07-02 97.9 F [facility] (F) 18:16:00 Weight 2015-07-02 [facility] 17:15:00 BMI Calculated 2015-07-02 [facility] 17:15:00 Height 2015-07-02 154.94 cm [facility] 17:15:00 Systolic (mm Hg) 2014-08-11 [facility] 16:45:00 Diastolic (mm Hg) 2014-08-11 [facility] 16:45:00 Systolic (mm Hg) 2014-08-11 [facility] 16:30:00 Diastolic (mm Hg) 2014-08-11 [facility] 16:30:00 Systolic (mm Hg) 2014-08-11 [facility] 16:15:00 Diastolic (mm Hg) 2014-08-11 [facility] 16:15:00 Respitory Rate 2014-08-11 [facility] 15:45:00 Respitory Rate 2014-08-11 [facility] 15:30:00 Respitory Rate 2014-08-11 [facility] 15:15:00 Heart Rate 2014-08-11 [facility] 11:24:00 Temperature Oral 2014-08-11 98.1 F [facility] (F) 11:24:00 Weight 2014-08-11 [facility] 11:23:00 BMI Calculated 2014-08-11 [facility] 11:23:00 Height 2014-08-11 154.94 cm [facility] 11:23:00 Diastolic (mm Hg) 2014-05-20 [facility] 21:38:00 Systolic (mm Hg) 2014-05-20 [facility] 21:38:00 Respitory Rate 2014-05-20 [facility] 21:38:00 Heart Rate 2014-05-20 [facility] 21:38:00 Temperature Oral 2014-05-20 99.7 F [facility] (F) 21:38:00 Heart Rate 2014-05-20 [facility] 19:20:00 Diastolic (mm Hg) 2014-05-20 [facility] 19:20:00 Systolic (mm Hg) 2014-05-20 [facility] 19:20:00 Heart Rate 2014-05-20 [facility] 18:50:00 Systolic (mm Hg) 2014-05-20 [facility] 18:50:00 Diastolic (mm Hg) 2014-05-20 [facility] 18:50:00 Respitory Rate 2014-05-20 [facility] 14:18:00 Temperature Oral 2014-05-20 98.7 F [facility] (F) 14:18:00 Temperature Oral 2014-05-20 98.5 F [facility] (F) 10:00:00 Respitory Rate 2014-05-20 [facility] 10:00:00 Height 2014-05-19 154.94 cm [facility] 21:14:00 Weight 2014-05-19 [facility] 21:14:00 BMI Calculated 2014-05-19 [facility] 21:14:00 BMI Calculated 2014-05-19 [facility] 12:24:00 Weight 2014-05-19 [facility] 12:24:00 Height 2014-05-19 154.94 cm [facility] 12:24:00 Respitory Rate 2014-04-28 [facility] 15:45:00 Systolic (mm Hg) 2014-04-28 [facility] 15:45:00 Diastolic (mm Hg) 2014-04-28 [facility] 15:45:00 Diastolic (mm Hg) 2014-04-28 [facility] 15:30:00 Systolic (mm Hg) 2014-04-28 [facility] 15:30:00 Respitory Rate 2014-04-28 [facility] 15:30:00 Diastolic (mm Hg) 2014-04-28 [facility] 15:19:00 Systolic (mm Hg) 2014-04-28 [facility] 15:19:00 Respitory Rate 2014-04-28 [facility] 15:19:00 Weight 2014-04-27 [facility] 21:42:00 BMI Calculated 2014-04-27 [facility] 21:42:00 Height 2014-04-27 154.94 cm [facility] 21:42:00 Height 2014-04-08 175.26 cm [facility] 17:59:00 BMI Calculated 2014-04-08 [facility] 17:59:00 Weight 2014-04-08 [facility] 17:59:00 Diastolic (mm Hg) 2013-07-09 [facility] 21:31:00 Systolic (mm Hg) 2013-07-09 [facility] 21:31:00 Respitory Rate 2013-07-09 [facility] 21:31:00 Diastolic (mm Hg) 2013-07-09 [facility] 19:19:00 Respitory Rate 2013-07-09 [facility] 19:19:00 Systolic (mm Hg) 2013-07-09 [facility] 19:19:00 Diastolic (mm Hg) 2013-07-09 [facility] 17:24:00 Systolic (mm Hg) 2013-07-09 [facility] rmann 17:24:00 Respitory Rate 2013-07-09 [facility] 17:24:00 Weight 2013-07-09 Fabiano Crocker n 16:27:00 Height 2013-07-09 154.94 cm Fabiano Crocker n 16:27:00 BMI Calculated 2013-07-09 [facility] 16:27:00 Heart Rate 2013-07-09 Fabiano Crocker n 16:27:00 Temperature Oral 2013-07-09 97.8 F [facility] rmann (F) 16:27:00 Respitory Rate 2012-12-23 [facility] 14:45:00 Systolic (mm Hg) 2012-12-23 [facility] rmann 14:45:00 Diastolic (mm Hg) 2012-12-23 [facility] ermann 14:45:00 Respitory Rate 2012-12-23 [facility] 14:30:00 Systolic (mm Hg) 2012-12-23 [facility] rmann 14:30:00 Diastolic (mm Hg) 2012-12-23 [facility] ermann 14:30:00 Respitory Rate 2012-12-23 [facility] 14:17:00 Diastolic (mm Hg) 2012-12-23 [facility] ermann 14:17:00 Systolic (mm Hg) 2012-12-23 [facility] rmann 14:17:00 Weight 2012-12-20 Fabiano Crocker n 20:19:00 Height 2012-12-20 154.94 cm Fabiano Crocker n 20:19:00 Procedures Procedure Date / Time Performing Clinician Source Performed EP REMOVE REPLACE 2019-06-02 16:45:03 Alanna Manrique In thodist PACEMAKER GENERATOR DUAL HC COMPLETE BLD COUNT 2019-06-02 13:30:00 Alanna Manrique W/AUTO DIFF BASIC METABOLIC PANEL 2019-06-02 12:40:00 Alanna Manrique ESTIMATED GFR 2019-06-02 12:40:00 Alanna Manrique Meth odist Stent removal 2015-09-28 05:00:00 [facility] Esophagogastroduodenoscopy 2014-08-11 05:00:00 Mauricio Hidalgo <sup>1</sup> Operation 2014-05-14 00:00:00 [facility] Lloyd fundoplication 2010-01-13 05:00:00 Princess beebe [place] Lloyd fundoplication 2010-01-13 05:00:00 Princess Martin History of Laparosc 2010-01-12 00:00:00 [facility] Esophagogastric Physicians Fundoplasty For Paraesoph Hernia Repair W/ Mesh History of Pacemaker 2004-08-12 00:00:00 [facility] Placement Physicians History of Cholecystectomy 1993-05-14 00:00:00 [facility] Laparoscopic Physicians Colon 1991-05-14 00:00:00 [facility] garnett operation<sup>2</sup> Colon operation 1991-05-14 00:00:00 [facility] Her garnett <sup>5</sup> History of Total Abdominal 1981-05-14 00:00:00 [facility] Colectomy Physicians History of Hysterectomy 1977-05-14 00:00:00 [facility] Physicians Appendectomy<sup>3</sup> Kd cabrera [place] Breast [facility] operation<sup>4</sup> Cardiac pacemaker [facility] Adela nn procedure<sup>5</sup> [facility] [place] section<sup>6</sup> Colonoscopy<sup>7</sup> [facility] [place] Hysterectomy<sup>9</sup> Kd cabrera [place] Insertion of esophageal [facility] [place] stent<sup>10</sup> Laparoscopic [facility] [place] cholecystectomy<sup>11</faustin p> Appendectomy <sup>1</sup> Princess al [place] Breast operation [facility] <sup>2</sup> Cardiac pacemaker [facility] Adela nn procedure <sup>3</sup> section [facility] <sup>4</sup> Hysterectomy <sup>6</sup> Mem[facility] al [place] Laparoscopic [facility] [place] cholecystectomy <sup>7</sup> Knee replacement [facility] Encounters Start End Encounter Admission Attending Care Care Encounter Source Date/Time Date/Time Type Type Clinicians Facility Department ID 2019-03-21 Outpatient MHSE MHSE [id number] 14:01:16 [facility] 2018-10-16 Outpatient MHSE RODRIGUE [id number] 15:44:11 [facility] 2019-11-07 2019-11-07 [facility] [id number] 12:37:00 23:59:00 Encounter Daryl G Arsenio [id number] [place] [id number] [place] [id number] 2019-10-28 2019-10-28 Pest Controller Assistant Fred Boateng [facility] [id number] 15:10:22 15:25:22 Visit Lab Main Arsenio [id number] [place] 4.2.7.2.686 Professio [id number] [address] 2019-10-28 2019-10-28 Orders Doctor NIKKI [id number] 00:00:00 00:00:00 Only Unassigned, JONATHAN [id number] [facility] [id number] [id number] 2019-10-14 2019-10-[address] [facility] [id number] 14:39:25 16:03:[address] [facility] [id number] Surgical [id number] Specialti [id number] [address] [place] 2019-05-20 2019-05-20 Outpatient Aloki, MHSE MHSE [id number] 08:43:00 23:59:00 Ole 56 2019-05-20 2019-05-20 Outpatient MHSE MHSE [id number] 08:43:00 08:43:00 [facility] 2019-04-09 2019-04-09 Appointmen CHARY VALVERDE Thoracic [id number] Univers 14:00:00 14:00:00 t; OLE VALVERDE Surgery - ity of Eran HANDY [facility] Doris moreno M.D. Physici ans 2019-04-08 2019-04-08 Outpatient Aloki, MHSE MHSE [id number] 10:02:00 14:30:00 Ole 55 2019-04-07 2019-04-07 Outpatient Aloki, MHSE MHSE [id number] 10:26:00 23:59:00 Ole 54 2019-03-19 2019-03-19 Appointmen CHARY VALVERDE Thoracic [id number] Univers 15:00:00 15:00:00 t; OLE VALVERDE, Surgery - ity of Eran HANDY [facility] Doris moreno M.D. Physici ans 2019-03-05 2019-03-05 AppointCHARY Crabtree [facility] [id number] Univers 10:45:00 10:45:00 t; Eran MATTHEW ity of Gladis BRISENO M.D. Physi ci ans 2019-02-12 2019-02-12 [facility] [id number] [facility] [address] 14:00:00 14:00:00 [facility] ent Clinics 2019-02-03 2019-02-03 [facility] [id number] 09:00:00 09:00:00 t [facility] ent Clinics 2018-10-30 2018-10-30 [facility] [id number] 15:00:00 15:00:00 t [facility] ent Clinics 2018-10-25 2018-10-25 [facility] [id number] 08:30:00 08:30:00 t [facility] ent Clinics 2018-10-23 2018-10-23 Outpatient SHLOMO Salcedo MHSE [id number] 14:23:00 23:59:00 Yazmin Vergara 2018-08-26 2018-08-26 [facility] [id number] 14:30:00 14:30:00 t [facility] ent Clinics 2018-05-13 2018-05-13 [facility] [id number] 14:30:00 14:30:00 t [facility] ent Clinics 2018-05-01 2018-05-01 [facility] [id number] 09:30:00 09:30:00 t [facility] ent Clinics 2018-03-05 2018-03-05 [facility] [id number] Univers 13:15:00 13:15:00 t; Eran MATTHEW [facility] [place] [address] Feliciano MATTHEW M.D. Physi ci ans 2018-03-05 2018-03-05 [facility] ELVIELE [facility] [id number] Univers 13:15:00 13:15:00 t; Eran MATTHEW [place], [place] Eran MATTHEW Physi ci ans 2017-12-31 2017-12-31 [facility] [id number] [facility] 09:45:00 09:45:00 t; Eran MATTHEW [facility] [place] [address] Te [place]re MATTHEW M.D. Physi ci ans 2017-11-29 2017-11-29 Outpatient Jeremiah [facility] [id number] 10:54:00 23:59:00 Braxton 00 2017-11-29 2017-11-29 [facility] [id number] [facility] 14:15:00 14:15:00 t; Eran MATTHEW [facility] [place] [address] Feliciano MATTHEW M.D. Physi ci ans 2017-11-22 2017-11-22 Outpatient NOEMI Bose [facility] [id number] 08:47:00 23:59:00 Robert Jim 52 2017-11-13 2017-11-13 [facility] [id number] Univers 14:00:00 14:00:00 t; ROBERT BOSE M.D. Surgery ity of Eran JONES Specialty Otilio as Physici ans 2017-10-19 2017-10-19 [facility] [id number] Univers 13:30:00 13:30:00 t; Eran MATTHEW [place], [place] Eran MATTHEW Physi ci ans 2017-08-01 2017-08-01 Outpatient Carroll [facility] [id number] 12:40:00 23:59:00 Cassy Ramos 2017-07-10 2017-07-10 Outpatient Jeremiah, MHSE MHSE [id number] 12:00:00 23:59:00 Braxton 51 2017-05-21 2017-05-21 Outpatient Jeremiah, MHSE MHSE [id number] 11:13:00 23:59:00 Braxton 50 2017-05-21 2017-05-21 Outpatient Jeremiah, MHSE MHSE [id number] 11:13:00 23:59:00 Braxton 50 2017-02-27 2017-03-01 Outpatient Crump, MHSE MHSE [id number] 06:18:00 18:53:00 Henry Francisco 48 2017-02-14 2017-02-14 Outpatient Elvie, MHSE MHSE [id number] 11:21:00 17:15:00 Juan Page 49 2017-02-12 2017-02-12 [facility], [facility] UTP [id number] Univers 08:00:00 08:00:00 t; Eran MATTHEW [place], [place] Eran MATTHEW Physi ci ans 2016-09-14 2016-09-14 [facility], [facility] UTP [id number] Univers 10:15:00 10:15:00 t; Eran MATTHEW [place], [place] Eran MATTHEW Physi ci ans 2016-08-23 2016-08-23 Outpatient Elvie, MHSE MHSE [id number] 10:45:00 14:26:00 Juan Page 47 2016-06-27 2016-06-27 [facility], [facility] UTP [id number] Univers 14:00:00 14:00:00 t; Eran MATTHEW [place], [place] Eran MATTHEW Physi ci ans 2016-06-22 2016-06-22 Outpatient Banki, MHSE MHSE [id number] 06:54:00 23:59:00 Ole 46 2016-06-19 2016-06-19 Outpatient Banki, MHSE MHSE [id number] 08:36:00 12:55:00 Ole 45 2016-06-14 2016-06-14 Outpatient Banki, MHSE MHSE [id number] 12:51:00 23:59:00 Ole 44 2016-03-28 2016-03-28 Outpatient Jeremiah, MHSE MHSE [id number] 12:40:00 23:59:00 Braxton 43 2016-02-15 2016-02-15 Outpatient Mucassiusdhya MHSE MHSE [id number] 07:35:00 11:29:00 yZeb 42 Cervantes 2015-09-28 2015-09-28 Outpatient Banki, MHSE MHSE [id number] 09:13:00 15:30:00 Ole 40 2015-07-27 2015-07-27 Outpatient Jeremiah, MHSE MHSE [id number] 10:51:00 23:59:00 Braxton 75 2015-07-06 2015-07-07 Outpatient Jeremiah, MHSE MHSE [id number] 16:33:00 16:10:00 Braxton 54 2015-07-06 2015-07-06 Outpatient Banki, MHSE MHSE [id number] 12:13:00 23:59:00 Ole 39 2015-07-02 2015-07-02 Outpatient Banki, MHSE MHSE [id number] 10:44:00 17:22:00 Ole 38 2015-07-01 2015-07-01 Outpatient Banki, MHSE MHSE [id number] 13:40:00 23:59:00 Ole 37 2015-06-30 2015-06-30 Outpatient Banki, MHSE MHSE [id number] 13:12:00 23:59:00 Ole 36 2014-12-29 2014-12-29 Outpatient Jeremiah, MHSE MHSE [id number] 07:32:00 23:59:00 Braxton 35 2014-08-24 2014-08-24 Outpatient Swartz, MHIE MHIE [id number] 14:49:00 23:59:00 Chase Cabrera 34 2014-08-11 2014-08-11 Outpatient Banki, MHIE MHIE [id number] 05:30:00 12:05:00 Loe 33 2014-06-03 2014-06-03 Outpatient Banki, MHIE MHIE [id number] 11:26:00 23:59:00 Ole 21 2014-05-19 2014-05-20 Outpatient Jeremiah, SOILA YOLETTE [id number] 11:52:00 16:00:00 Braxton 32 2014-04-28 2014-04-28 Outpatient Abram, SOILA CM [id number] 06:12:00 10:10:00 Ole 30 2014-04-06 2014-04-06 Outpatient SOILA Valverde YOLETTE [id number] 12:28:00 23:59:00 Ole 29 2013-07-09 2013-07-09 Outpatient Ellen, SOILA YOLETTE [id number] 10:18:00 15:33:00 Bindu 28 Eleazar 2013-07-07 2013-07-07 Outpatient YOLETTE YOLETTE [id number] Memoria 08:22:00 23:59:[address] [facility] 2013-06-19 2013-06-19 Outpatient YOLETTE YOLETTE [id number] Memoria 13:36:00 23:59:[address] [facility] 2012-10-15 2012-10-15 Outpatient YOLETTE YOLETTE [id number] 19:06:31 19:06:10 Results Test Description Test Time Test Comments Results Result [facility] e Comments Electrophysiology 2019-05-15 After IV Joya procedure 0 antibiotics and Restorationism 16:49:48 local anesthesia, left subclavian pacer pocket site was opened. The old generator was removed and the pocket was flushed with antibiotic solutaiton. A new dual chamber [employer]OLADE MRI DR IS-1 was attached to the atrial and ventricular leads appropriately. Pocket was then closed in two subcuticular layers and skin was stapled. No complications. Basic metabolic panel 2019-06-02 14:00:26 Test Item Value Reference Range Interpretation Comme nts Sodium (test code = 2951-2) 143 135- 148 mEq/L Potassium (test code = 2823-3) 4.2 3.5- 5.0 mEq/L Chloride (test code = 2075-0) 107 98- 112 mEq/L CO2 (test code = 8-9) 21 24- 31 mEq/L L Anion gap (test code = 69229-9) 15@ANIO 7- 15 mEq/L BUN (test code = 3094-0) 20 mg/dL 8-23 Creatinine (test code = 2160-0) 0.96 mg/dL 0.5-0.9 H Glucose (test code = 2345-7) 96 mg/dL 65-99 Calcium (test code = 81496-3) 9.1 mg/dL 8.8-10.2 Lab Interpretation (test code = 29428-5) Abnormal Toan MethodistEstimated [id number] 14:00:26 Test Item Value Reference Range Interpretation Comments Estimated GFR (test 58 mL/min/1.73 m2 Coy nguyen Units code = 5488) InterpretationG 1 >=90 Sushma l or highG2 60-89 Mildly decrease dG3a 45-59 Mil dly to moderately decr ifunrO1c 30-44 Moderately to s everely decreasedG4 15-29 Severe ly decreasedG5 <15 Kidney blanca lureThe eGFR was calcul ated using the Chron Kidney Disease Epidemiology Collaboration ( CKD-EPI) equation. Interpretation is based on recommendati ons of the National Ki dney Foundation-Kidn ey Disease Outcome s Quality Initiat sherin (NKF-KDOQI) pub lished in 2013. Lab Interpretation Abnormal (test code = 08077-4) Joya MethodistCBC with platelet and [id number] 13:55:14 Test Item Value Reference Range Interpretation Comments WBC (test code = 72241-8) 9.58 4.50- 11.00 k/uL RBC (test code = 59419-3) 4.17 m/uL 4.2-5.5 L HGB (test code = 718-7) 12.9 g/dL 12-16 HCT (test code = 4544-3) 40.1 % 37-47 MCV (test code = 787-2) 96.2 fL 82-100 MCH (test code = 785-6) 30.9 pg 27-34 MCHC (test code = 786-4) 32.2 g/dL 31-37 RDW - SD (test code = 44.5 fL 37-55 32531-7) MPV (test code = 56641-7) 10.8 fL 8.8-13.2 Platelet count (test code 242 150- 400 k/uL = 63518-6) Nucleated RBC (test code 0.00 /100 WBC = 30204-1) Neutrophils (test code = 73.7 % 39-69 H 85858-8) Lymphocytes (test code = 19.4 % 25-45 L 95020-4) Monocytes (test code = 6.2 % 0-10 75165-7) Eosinophils (test code = 0.2 % 0-5 14666-8) Basophils (test code = 0.3 % 0-1 15439-8) Immature granulocytes 0.2 % 0-1 "Immat ure (test code = 27352-5) granul ocytes" (promyelocytes, myelocytes, metamyelocytes) Lab Interpretation (test Abnormal code = 61745-6) [place] MethodistCHEM [id number] 15:10:00 Test Item Value Reference Range Interpretation Comments B/C Ratio (test code = B/C Ratio) 29 1 6-25 [facility] HermannCHEM [id number] 15:10:00 Test Item Value Reference Range Interpretation Comments A/G Ratio (test code = A/G Ratio) 0.8 1 0.7-1.6 [facility] HermannCHEM [id number] 15:10:004.2[facility] HermannCHEM PANEL 2017-11-22 15:10:0010.0[facility] HermannCHEM [id number] 15:10:0058[facility] HermannCHEM [id number] 15:10:0095[facility] HermannCHEM IEEPY8151-10-25 15:10:000.5[facility] HermannCHEM ZSIKO1661-85-90 15:10:0011[facility] HermannCHEM ZLQDN6198-43-88 15:10:0080[facility] HermannCHEM KFWIL3956-21-19 15:10:003.5 [facility] HermannCHEM OLASR7877-20-46 15:10:007.7[facility] HermannCHEM PANEL 2017-11-22 15:10:004.0[facility] HermannCHEM [id number] 15:10:87352Jpbaafab HermannCHEM KOCNB8048-05-70 15:10:0024[facility] HermannCHEM ZHQNZ0206-06-11 15:10:000.97[facility] HermannCHEM PDLVC7293-10-24 15:10:0026[facility] HermannCHEM NFYJI9425-62-08 15:10:17101Zcvztsip HermannCHEM FPPRQ4138-73-54 15:10:008.6 [facility]annCHEM LIURQ0080-62-46 15:10:0028[facility] HermannHEMATOLOGY 2017-11-22 15:10:000.3[facility] IlggiyxRURKDGIXBR9262-41-59 15:10:005.0[facility] SgwmxvaIMWISFXJMQ5783-14-67 15:10:000.3[facility] PcekkkwCCQJFMVOIZ7895-70-00 15:10:000.4[facility] HviwuyfZBTLKKJFAV5927-63-02 15:10:003.8[facility] [place] MVEWPZHAHL3486-58-97 15:10:002.3[facility] UsetmsjGKCIMUEIPB0229-16-37 15:10:00 Normal (11/22/17 10:10 AM)[facility] EwpvppjHQHQJPRMNG5523-61-31 15:10:00Normal (11/22/17 10:10 AM)[facility] VhwydlyULBRELPKWQ2736-22-02 15:10:0058.7[facility] SostbnfYZBXHYZELQ7692-30-38 15:10:0035.6[facility] YcavfagEZIJNUXNRQ5395-54-08 15:10:0034.5[facility] TphkphwZDDDAXYKVD4339-38-30 15:10:00 Test Item Value Reference Range Interpretation Comments MCH (test code = MCH) 31.2 pg 27.0-31.0 Memorial YkpvpsrFYXSRXPUEF5242-35-91 15:10:0090.6[facility] HermannHEMATOLOGY 2017-11-22 15:10:0036.4[facility] LcodkykECDXYDWRFO4822-26-38 15:10:0012.5[facility] CsoglfiPMWTTDYERV5997-75-17 15:10:009.4[facility] BplbvhtFYEKSRAVXH9055-30-31 15:10:93669Uyolgslo EtfdbaiCNMVXNLNIH3875-78-15 15:10:0013.0[facility] [place] FFLZURDKDH1608-15-00 15:10:004.02[facility] FavsohfBTZSSTJTED0627-07-99 15:10:00 6.5[facility] MchlrivRBVRQFQILZ1116-41-99 08:23:0077.8[facility] 2017-03-01 08:23:0012.1[facility] MbxeqikGQGGTHUVMR8631-19-70 08:23:000.9[facility] LdpcrkkFLWDBSEZJK7102-43-86 08:23:001.2[facility] JawxoxgHUDUPSOWBA0008-11-89 08:23:007.4[facility] FnfiomtGPUJMVFAEV9395-18-84 08:23:000.1[facility] ZDDUQRFRLU6230-61-14 08:23:009.9[facility] BxtffanLOFNXHRGBL4445-70-98 08:23:000.1 [facility] YhpblfqGPBDESBRLM8026-02-79 08:23:19909Fayiniqh HermannHEMATOLOGY 2017-03-01 08:23:009.7[facility] TpksyxcXDSHVBBUIP7368-43-55 08:23:0013.0[facility] CbahuksWKWVPXKAJP6910-22-98 08:23:00 Test Item Value Reference Range Interpretation Comments MCH (test code = MCH) 32.2 pg 27.0-31.0 [facility] SqixbkbTUWXERAZOP8786-71-37 08:23:0034.7[facility]annHEMATOLOGY 2017-03-01 08:23:0028.9[facility] YwzqtssIBKCFZKSGY2290-48-73 08:23:0010.1[facility] BdpjrmcELWCYIPVDD5171-11-61 08:23:003.12[facility] HxicdjyJMJKFBQEMW3687-15-97 08:23:009.5[facility] KpojcyaNTUMUIUCCE5508-58-56 08:23:0092.6[facility] CDWBMMPLHJ1158-23-14 09:26:0010.6[facility] UqicbwiKXAQUOBCDF9349-02-95 09:26:00 0.9[facility] JzdhkzuFTLPWZIRXV5723-87-15 09:26:001.3[facility]annHEMATOLOGY 2017-02-28 09:26:0082.7[facility] CwpkwosXRJSAYGGGB0947-56-35 09:26:007.3[facility] YwpzaucGCKXSNSOLU6592-55-60 09:26:0010.0[facility] ZdczmnlHRZAMZTYZX5405-18-08 09:26:0012.8[facility] CwksgpbWXAWZNVYQE3794-77-91 09:26:009.0[facility] GSAICRZJML2082-85-87 09:26:92007Thulczre GvdbmxiOTJELBCJPD9937-95-25 09:26:00 12.8[facility] PawddxiKOARZQCRJW0043-47-40 09:26:0010.4[facility]annHEMATOLOGY 2017-02-28 09:26:003.26[facility] GywfuvyGPQKUBCKRU2957-43-45 09:26:0030.0[facility] LrocrtnDHUFMQMXGJ1614-09-62 09:26:0092.3[facility] OunetgoGBSXSBHRII4271-63-60 09:26:00 Test Item Value Reference Range Interpretation Comments MCH (test code = MCH) 31.8 pg 27.0-31.0 [facility] LasavuaYNBSDWYMXX5437-72-99 09:26:0034.5[facility]annBL[facility]OD BANK PCELCCF4195-86-70 18:16:00Negative (02/22/17 1:16 PM)[facility] KENNRFMJDUJV9956-99-19 18:16:0014.8[facility] IepbadfGMBRIYVQQOFM9035-72-46 18:16:0041[facility] XaipajgWPSAVCHTANPV6375-76-68 18:16:0032[facility] JMYZPXOGDOWO7467-63-42 18:16:84501Szrwovtv GbbghtrWFNJEXOARNOX3461-18-83 18:16:009.3[facility] OdbcrnzHBPVVMWZOHSW7223-59-95 18:16:004.8[facility] TDJKVHVAVXEJ2945-34-78 18:16:80536Acapgygu TaqnhvaVOPVQZJGYCZQ8442-13-74 18:16:001.30[facility] EwjbzxlIJZTKLWTEOCZ9021-94-84 18:16:0026[facility] RUQVNRUWWHUP6720-58-50 18:16:89847Brivzmvu LdymtgbAVLUSZCBZW3089-25-73 18:16:00 Test Item Value Reference Range Interpretation Comments PTT (test code = PTT) 26.5 s 22.9-35.8 [facility] BdatdwhJMEBWGYWOX4377-67-07 18:16:00 Test Item Value Reference Range Interpretation Comments PT (test code = PT) 13.1 s 12.0-14.7 [facility] LlymptvPIQZMYDWUM1806-83-95 18:16:000.97[facility]annHEMATOLOGY 2017-02-22 18:16:0013.2[facility] CgzmdhoHBHFNYGYEV3198-66-95 18:16:0034.5[facility] OuejptoQPJXLYENYS1560-91-57 18:16:00 Test Item Value Reference Range Interpretation Comments MCH (test code = MCH) 32.0 pg 27.0-31.0 [facility] KlirlzwRTIJENGQUW4550-71-59 18:16:009.1[facility] HermannHEMATOLOGY 2017-02-22 18:16:33088Ofeukbla BdaqfnlIFPUTLIJKH0053-00-97 18:16:008.5[facility] HurvxsrEAASMEHOOU9828-68-40 18:16:004.70[facility] VjbgyqbIMQXOCUCDL8642-09-49 18:16:0015.0[facility] NrdjeglLJOINQNQTM0313-69-36 18:16:0092.7[facility] NOUYKPVBBM1101-73-60 18:16:0043.6[facility] FopoftoWYXOCECPUU4352-25-98 18:16:00 5.8[facility] EeekdxgFGQUJPLRIL8473-63-69 18:16:002.2[facility] HermannHEMATOLOGY 2017-02-22 18:16:000.4[facility] DnjqsjjBNHGZRZPJN2127-25-32 18:16:000.1[facility] KgeoecxUKDWLJOSOB7291-31-80 18:16:000.5[facility] FhgflbzLWWQANQPRY6137-95-86 18:16:005.2[facility] PhnozedAYSVWIGZLH9478-27-09 18:16:0025.9[facility] LANWAKPWMX6703-27-15 18:16:000.9[facility] RmejprcBRTFRKKKVS4724-62-23 18:16:00 67.5[facility]annBL[facility] BANK REVRXIT8514-52-06 17:57:00Product available (02/22/17 12:57 PM)[facility]annCHEM HFTDH9149-72-00 17:01:0032[facility]annCHEM QNNSU1399-63-29 17:01:004.1[facility]annCHEM CPXLA1002-08-48 17:01:001.0[facility]annCHEM RNNJQ3919-05-16 17:01:0013.0[facility]annCHEM GLURG3118-60-88 17:01:0050[facility]annCHEM ZRGGD2581-96-97 17:01:004.1 [facility]annCHEM PRBPX3960-04-09 17:01:0011[facility]annCHEM PANEL 2016-06-19 17:01:0023[facility]annCHEM GQUED0449-22-38 17:01:008.2[facility]annCHEM UXXCD6032-91-46 17:01:0077[facility]annCHEM PWATF3057-82-37 17:01:000.5[facility]annCHEM FFZKF6859-27-77 17:01:49220Puhsxqvk HermannCHEM DRRWD1869-84-90 17:01:0023[facility]annCHEM MCFNR4565-96-71 17:01:008.9 [facility]annCHE[facility] OEKSD3859-17-47 17:01:0093[facility]annCHEM PANEL 2016-06-19 17:01:004.0[facility]annCHEM FKMZU5323-78-46 17:01:80931Etaoypmm HermannCHEM QBFFY6539-61-49 17:01:0035[facility]annCHEM SNMSH6246-38-98 17:01:001.10[facility] KnuwskpNMAAEFBEJP3044-98-72 17:01:004.54[facility] NKTIFPXFHN8236-08-67 17:01:0014.3[facility] LeyrkpwTSLGVXGSHK0551-50-81 17:01:00 8.5[facility] CcrlluaFEDPAQHMBX6502-55-57 17:01:009.2[facility]annHEMATOLOGY 2016-06-19 17:01:0092.6[facility] BwitxrsYSSOJOQXHH8604-81-39 17:01:0042.1[facility] NwgioncARPDTACLSO5093-90-10 17:01:0013.6[facility] KgqladvSGTRQDJCNV2974-26-64 17:01:00 Test Item Value Reference Range Interpretation Comments MCH (test code = MCH) 31.5 pg 27.0-31.0 [facility] CjeiycfMWEHOKJEWF7583-41-89 17:01:07660Styoudxz HermannHEMATOLOGY 2016-06-19 17:01:0034.1[facility] TsydywyZTCVGHEVMR8582-19-88 17:01:000.6[facility] WpzupodFOOWHUMVDH3124-56-58 17:01:000.9[facility] AmlknmlSARHIQPDEB1141-77-68 17:01:0023.2[facility] IqqxoldZDGMYKRTXL8508-75-69 17:01:0069.1[facility] TVWYLJVSGQ4073-94-22 17:01:002.0[facility] ZnpxajqDOAWPCHHNI8177-21-86 17:01:000.1 [facility] FpfyislZPJKWVXVSI5652-17-56 17:01:000.1[facility] HermannHEMATOLOGY 2016-06-19 17:01:006.2[facility] NdberbkMQAOCXSKTN3381-01-36 17:01:005.9[facility] ApdhcrdRFLYYPBSIF3762-74-44 17:01:000.5[facility]annBLOOD BANK RESULTS 2015-09-28 14:58:00Negative (09/28/15 9:58 AM)[facility]annCHEM PANEL 2015-09-28 14:58:000.4[facility] HermannCHEM JBUGH1861-99-97 14:58:0083[facility]annCHEM EGZOR4415-70-49 14:58:0013[facility]annCHEM BXSGC6315-68-48 14:58:0021[facility]annCHEM PUQMY1391-95-35 14:58:003.8[facility]annCHEM ZMGMD3858-65-36 14:58:007.8[facility]annCHEM VXEEA4372-14-25 14:58:009.0 [facility]annCHEM UIJKX1078-75-71 14:58:0026[facility]annCHEM PANEL 2015-09-28 14:58:0056[facility]annCHEM HFSKV4457-95-65 14:58:55258Lcokfuln HermannCHEM AZCRV5849-55-68 14:58:98819Bncuhual HermannCHEM KOUBV7957-49-78 14:58:004.2[facility]annCHEM BTSIU3521-41-93 14:58:001.01[facility]annCHEM WRJAE4922-76-17 14:58:0019[facility]annCHEM NIBLG1079-74-93 14:58:0096 [facility]annCHEM PKPAX1119-64-36 14:58:0019[facility]annCHEM PANEL 2015-09-28 14:58:0012.2[facility] HermannCHEM BCEWN3213-67-71 14:58:001.0[facility]annCHEM LUNTL5090-33-03 14:58:004.0[facility] IfvclvyMUNIXVXSGN2215-66-51 14:58:00 Test Item Value Reference Range Interpretation Comments PTT (test code = PTT) 27.0 s 22.9-35.8 [facility] YodzqlwGRFXJQFXHV0982-80-17 14:58:00 Test Item Value Reference Range Interpretation Comments PT (test code = PT) 13.8 s 12.0-14.7 [facility] FchoenoGFMHEXRVFN9023-52-53 14:58:001.03[facility] HermannHEMATOLOGY 2015-09-28 14:58:000.1[facility] VtthoteILBLCFVVOZ8850-54-28 14:58:000.8[facility] WlutqucSIZZXHHKJA9153-69-02 14:58:001.7[facility] SbciqiqYTXNUBTVYW4088-81-23 14:58:000.5[facility] FzxvezfFNMDOXGJCV3806-25-75 14:58:004.1[facility] UWBOVZDMFG8985-88-57 14:58:007.3[facility] CtanqtkTITEISKAXO7149-73-96 14:58:002.1 [facility] NrnwsmmFDTYGYEUDY5916-38-02 14:58:0063.0[facility] HermannHEMATOLOGY 2015-09-28 14:58:0026.8[facility] OadzzjcYSYKYQLJZK4352-34-12 14:58:51129Hcnsckoy UxohcrcGUNDVEWMIZ4217-83-86 14:58:0013.0[facility] CdddafaBMXLGUSQMO6188-54-26 14:58:008.6[facility] HzxwbbdLDONQUUFMH5803-00-17 14:58:0032.7[facility] XKXUIVPZMB4915-72-77 14:58:0039.2[facility] EnsxknbMVIDDJFRHX8464-33-29 14:58:00 91.3[facility] DgveqehFZWGDOLGDV4142-54-70 14:58:00 Test Item Value Reference Range Interpretation Comments MCH (test code = MCH) 29.9 pg 27.0-31.0 [facility] NkqmsvlWFQSZVVPNY5258-88-26 14:58:0012.8[facility] HermannHEMATOLOGY 2015-09-28 14:58:006.5[facility] TsvihyjHNRZHXMSEC8354-05-04 14:58:004.29[facility]UR[facility] HXARK9218-28-52 14:58:00Yellow *NA*(09/28/15 9:58 AM)[facility] NHRPG7587-74-15 14:58:001.020[facility] STOOL 2015-09-28 14:58:00Clear (09/28/15 9:58 AM)[facility] STOOL 2015-09-28 14:58:006.0[facility] GRIGE0278-05-22 14:58:00Negative *NA*(09/28/15 9:58 AM)[facility] HUTCS7571-04-20 14:58:00Small *ABN*(09/28/15 9:58 AM)[facility] AZQUX2912-17-90 14:58:00Positive *ABN*(09/28/15 9:58 AM)[facility] QBPHE4213-53-55 14:58:00 Negative (09/28/15 9:58 AM)[facility] JTFHO2994-45-50 14:58:0034 [facility] TCRLK3024-92-23 14:58:001[facility]BL[facility] B[facility] KXSSPFV0999-31-79 14:52:00Product available 1(09/28/15 9:52 AM)[facility] TMFJI0282-25-19 21:37:00Negative (07/07/15 3:37 PM)[facility] URINE AND TWHBC9673-01-47 21:37:003[facility] MGHNJ8753-94-22 21:37:001[facility] TDSSO3347-80-14 21:37:00Small *ABN*(07/07/15 3:37 PM)[facility] MOOXL1569-69-21 21:37:00Negative (07/07/15 3:37 PM)[facility] UTFOM1452-56-56 21:37:00Negative *NA*(07/07/15 3:37 PM)[facility] ESDVS2088-98-49 21:37:006.0[facility] RWIEF5713-16-49 21:37:00Slight *ABN*(07/07/15 3:37 PM)[facility] WEBTG3350-51-62 21:37:001.014[facility] HermannCHEM ICNIR0322-80-64 10:40:0060 [facility]annCHEM UGOQU6594-09-12 10:40:004.1[facility] HermannCHEM PANEL 2015-07-07 10:40:0024[facility] HermannCHEM FSEUU0720-59-74 10:40:000.96[facility]annCHEM LFMXR8004-44-92 10:40:04959Ceptajzw HermannCHEM TBNEG6841-35-30 10:40:37353Mayzhrsc HermannCHEM FLJWW9243-89-53 10:40:0023[facility]annCHEM RWJLX3230-90-24 10:40:008.4[facility] HermannCHEM LZOXW9203-00-74 10:40:00057 [facility]annCHE[facility] MPUJE2530-92-18 10:40:0013.1[facility] HermannHEMATOLOGY 2015-07-07 10:40:006.7[facility] ObqkoaxJKORMHSAMT5026-60-41 10:40:001.7[facility] TtspuptESJQECLDAS8620-57-78 10:40:006.1[facility] QyrnoyvWHAQCWSMSF4500-60-63 10:40:001.0[facility] IxnhklvJACXUXZJUZ3581-65-03 10:40:001.6[facility] MZZEMRHSPI9609-78-62 10:40:000.1[facility] KnmcdinOVFJRYIRIZ3180-12-60 10:40:000.6 [facility] WbokxipJUAVJRMDTE3283-28-49 10:40:000.1[facility] HermannHEMATOLOGY 2015-07-07 10:40:0019.3[facility] AehtvwsLESTXEIBVR3746-69-96 10:40:0071.4[facility] MrmpnngPNMIFVQISN8423-69-22 10:40:009.1[facility] BeehiaiQNWZJLEUHO3746-45-51 10:40:0013.1[facility] QmwyovcWWTWCHOYLQ8881-93-64 10:40:0034.1[facility] LFOHZQBWEM5266-51-33 10:40:00 Test Item Value Reference Range Interpretation Comments MCH (test code = MCH) 30.6 pg 27.0-31.0 [facility] OhwoxifCJYITEPAWA0552-34-81 10:40:77600Wpooiipx HermannHEMATOLOGY 2015-07-07 10:40:008.6[facility] GqzlltdFOFRYDLJNH3274-50-00 10:40:0036.9[facility] LfyibglCVDEEWSMJW2589-89-30 10:40:0012.6[facility] FfcievfVSSEPQVGXP3915-91-03 10:40:004.12[facility] XimjlfzUCPRSGXJCM4666-58-12 10:40:0089.7[facility] CHEM EORJF5011-87-27 05:13:001.05[facility] HermannCHEM FEBBI2325-31-55 05:13:0054 [facility] SkhgdssPUHOKTFIZV6262-48-93 05:13:05279Jpqoluex HermannCHEM PANEL 2015-07-07 00:59:83414Cadnejnf HermannCHEM PSCZE6365-09-92 00:59:000.8[facility] HermannCHEM ZKHDI2178-73-92 00:59:0014.3[facility] HermannCHEM MDTPP7065-62-53 00:59:0021[facility]annCHEM GZWQT2995-87-72 00:59:004.6[facility]annCHEM YAGGS7765-34-85 00:59:0046[facility]annCHEM FRQYF1146-68-84 00:59:004.3 [facility]annCHEM JRJSD5722-17-32 00:59:009.1[facility] HermannCHEM PANEL 2015-07-07 00:59:88410Ugetthjj HermannCHEM CNQQY4213-64-51 00:59:008.2[facility] HermannCHEM IZUYO7151-43-84 00:59:0024[facility]annCHEM FXOBI5989-28-50 00:59:0024[facility]annCHEM HWOGQ7009-30-03 00:59:25165Hjlntpxh HermannCHEM VVJVN2437-03-10 00:59:003.6[facility] HermannCHEM SEQIF6047-58-72 00:59:00625 [facility]annCHEM DHSVC5096-55-58 00:59:000.6[facility] HermannCHEM PANEL 2015-07-07 00:59:001.19[facility]annCHEM LPXSH5011-35-35 00:59:48525Sflnxesr HermannCHEM YIDLP9204-18-06 00:59:0025[facility]annCHEM MNRXB5828-85-21 00:59:06992Igkqwdpu MpcrdgkKCCMQMKABB4702-88-20 00:59:0011.3[facility] XEUZQUGHCH2112-68-58 00:59:0082.4[facility] FsghzahRTWJWPRECU6397-24-16 00:59:00 0.8[facility] WtazrvsDWAAJSYKRS2409-79-84 00:59:001.5[facility] HermannHEMATOLOGY 2015-07-07 00:59:000.1[facility] LjyeswhAFGGYTQHLN0866-75-35 00:59:000.2[facility] BvptqioULAJPKPNAY5497-42-12 00:59:005.6[facility] SaqfgedDUNNSKDVYV5928-55-82 00:59:000.5[facility] TlhjsetJEMZZIVNZR5865-16-35 00:59:0011.1[facility] OJIMBDYQYC9705-23-11 00:59:001.06[facility] JfkxosjKIDEYSLJMQ9177-33-63 00:59:00 Test Item Value Reference Range Interpretation Comments PTT (test code = PTT) 27.6 s 22.9-35.8 [facility] MjgcwyjEADRJWRDJM0138-77-69 00:59:00 Test Item Value Reference Range Interpretation Comments PT (test code = PT) 14.1 s 12.0-14.7 [facility] AbsyxhuEIKTYLNMPN3921-38-29 00:59:32511Uuwavgxh HermannHEMATOLOGY 2015-07-07 00:59:009.2[facility] OtkkiolAJDGKPCPSM3044-24-90 00:59:0040.9[facility] LkxiqjmWUQFAMBFES4677-35-42 00:59:004.52[facility] RovtqemDOVGFUYLZK8663-76-62 00:59:0013.6[facility] UqruhphOQNZWOZIDR2745-61-95 00:59:0013.1[facility] DGZIHEHAOI2754-42-00 00:59:0090.4[facility] XidfvnaZRMEFRRHOS1837-33-62 00:59:00 Test Item Value Reference Range Interpretation Comments MCH (test code = MCH) 30.1 pg 27.0-31.0 [facility] HsmewudTRZUNAWNAV4353-24-81 00:59:0033.3[facility] HermannHEMATOLOGY 2015-07-07 00:59:0013.4[facility]annBL[facility]OD BANK MNSXZMF0977-37-75 17:59:00 Negative (07/02/15 11:59 AM)[facility]annCHEM HJJRS8181-09-85 17:59:004.0 [facility]annCHEM MJBJO8167-89-07 17:59:0018[facility] HermannCHEM PANEL 2015-07-02 17:59:0011.1[facility] HermannCHEM UQOOE3286-70-04 17:59:001.0[facility]annCHEM ZSKSL4627-44-23 17:59:0056[facility]annCHEM QMIEM9845-91-41 17:59:009.4[facility]annCHEM ALWJR5522-44-67 17:59:49692Smyvrijh HermannCHEM HCNPC5193-71-09 17:59:004.1[facility] HermannCHEM OHOBD3542-21-76 17:59:23338 [facility]annCHEM ICHEH6317-74-79 17:59:001.01[facility]annCHEM PANEL 2015-07-02 17:59:0018[facility]annCHEM VJECP2256-91-32 17:59:66331Dvhmbccr HermannCHEM IWJLV7866-21-44 17:59:0083[facility]annCHEM HCLBU9853-06-69 17:59:0013[facility]annCHEM LDACL8823-17-70 17:59:008.1[facility]annCHEM HWUQC8885-31-21 17:59:000.6[facility]annCHEM EHOZY3474-45-46 17:59:0026 [facility]annCHEM VSQNZ3491-49-80 17:59:004.1[facility] HermannCHEM PANEL 2015-07-02 17:59:0036[facility] SlylrskKPNNRMYLLR9899-27-70 17:59:0033.7[facility] XmevddbUWDCOOZPMG1983-84-77 17:59:0013.6[facility] NiiexcaDKPKQPBZWG0147-57-00 17:59:0090.4[facility] GkmohuzNTCMNDHBJR1469-65-95 17:59:0040.4[facility] XUURCMLPCB9715-77-24 17:59:00 Test Item Value Reference Range Interpretation Comments MCH (test code = MCH) 30.5 pg 27.0-31.0 [facility] WqyuouhZPHKKTBJSR5696-48-05 17:59:92678Zpehryvt HermannHEMATOLOGY 2015-07-02 17:59:0013.2[facility] NecgwxeMRBUXCUKGC6696-25-98 17:59:008.7[facility] MsabjqqEMOVACJCEO4429-06-43 17:59:004.47[facility] GpzqatdZOJUOFMQWO9117-82-65 17:59:006.5[facility] BfknoomDMHTWHWKQV9235-59-70 17:59:000.1[facility] JQRBZPIAJE5711-13-15 17:59:000.4[facility] QpqngtwXHBLREUPKY5882-27-94 17:59:001.9 [facility] DwntjbyIZRFKOZAXX4832-13-91 17:59:004.1[facility] HermannHEMATOLOGY 2015-07-02 17:59:005.6[facility] OzikorxRSGRJNROJU2349-19-29 17:59:001.3[facility] YqzmofaFEWVBKSAGH5577-86-43 17:59:0029.2[facility] YnsxmvsIYFKEBEADQ4197-29-96 17:59:000.8[facility] XepndsdVKVTWFCAZE9290-28-85 17:59:0063.1[facility] UHXAYVTAUJ6537-19-18 17:59:00 Test Item Value Reference Range Interpretation Comments PTT (test code = PTT) 28.1 s 22.9-35.8 [facility] KrsaevvCTOFDFVJUI2734-90-41 17:59:001.11[facility] HermannHEMATOLOGY 2015-07-02 17:59:00 Test Item Value Reference Range Interpretation Comments PT (test code = PT) 14.6 s 12.0-14.7 [facility] KMHTT4795-89-23 17:59:001.021[facility]UR[facility] AND PUJIV3027-85-14 17:59:005.0[facility] NXGGB2309-74-15 17:59:00 Yellow *NA*(07/02/15 11:59 AM)[facility] ZLVRF3985-17-65 17:59:003 [facility] WPLFY4008-01-75 17:59:00Marked *ABN*(07/02/15 11:59 AM) [facility] VANDM7288-27-07 17:59:001[facility] XPBCK9219-33-22 17:59:00Negative *NA*(07/02/15 11:59 AM)[facility] YPNCM9949-76-67 17:59:00Negative (07/02/15 11:59 AM)[facility] LOTJP2297-53-25 17:59:003[facility] IJALK6729-59-07 17:59:00 Negative (07/02/15 11:59 AM)[facility] JNRCB3431-52-00 17:59:00 Negative (07/02/15 11:59 AM)[facility]annBL[facility]OD BANK NSZBXIC8956-33-84 17:17:00 Product available 1(07/02/15 11:17 AM)[facility]annBL[facility]OD BANK RESULTS 2014-08-11 11:47:00Negative (08/11/14 6:47 AM)[facility]annCHEM PANEL 2014-08-11 11:47:003.4[facility] HermannCHEM QNUUI3988-20-58 11:47:008.5[facility] HermannCHEM DGBRB8283-55-79 11:47:0057[facility] HermannCHEM WSWEJ7933-42-18 11:47:001.0[facility] HermannCHEM BXDXS2819-77-52 11:47:93881Llkqppjf HermannCHEM UYZKJ3920-47-78 11:47:004.1[facility] HermannCHEM IKXSB2865-46-23 11:47:50426 [facility]annCHEM GFRTT3777-21-87 11:47:0066[facility] HermannCHEM PANEL 2014-08-11 11:47:000.3[facility] HermannCHEM DBSDM4031-59-54 11:47:0013[facility] HermannCHEM GVUBH1174-70-45 11:47:0016[facility] HermannCHEM XJCHR6223-52-29 11:47:007.4[facility] HermannCHEM EMMYD6490-86-50 11:47:0026[facility] HermannCHEM JTFUH6891-10-58 11:47:0023[facility] HermannCHEM OVMRI5727-81-15 11:47:0097 [facility]annCHEM ZITZQ9914-25-40 11:47:0023[facility] HermannCHEM PANEL 2014-08-11 11:47:0010.1[facility] HermannCHEM QFPJX8754-99-16 11:47:004.0[facility] HermannCHEM FIZKT0349-64-67 11:47:000.8[facility] XvkziiyOJJKTTRZKA6245-12-58 11:47:008.9[facility] HhnxtoiZVZPEJXJZI5801-69-31 11:47:37067Tbwlgawn [place] EVYJRVHNKH0413-12-63 11:47:0012.0[facility] IjonigtUCRNXXDNKX4532-91-91 11:47:00 3.88[facility] EkyvkoqOETXTYFDAF9989-01-26 11:47:006.7[facility] HermannHEMATOLOGY 2014-08-11 11:47:0013.6[facility] MvzfctoTFFDALGUTS3966-75-23 11:47:0034.0[facility] NrstyjeKNLESFSKPR2642-08-62 11:47:00 Test Item Value Reference Range Interpretation Comments MCH (test code = MCH) 30.9 pg 27.0-31.0 [facility] XmpjxkkZCLEKAKJIF2430-88-04 11:47:0090.7[facility] HermannHEMATOLOGY 2014-08-11 11:47:0035.2[facility] DoksllfPQYRTAEPXI6655-40-48 11:47:003.9[facility] TcxwfilYJMNBYAGKH6190-04-90 11:47:002.1[facility] MulmccaDSMCUSUGUM3165-25-87 11:47:007.2[facility] ZwioxneCYFOWUSAGM6051-00-00 11:47:002.9[facility] EHMUCWICOL5632-34-19 11:47:000.6[facility] NiudfifAEFPKDUVKJ4985-72-10 11:47:000.5 [facility] BmmkyycAJLPXLENQM4433-51-72 11:47:000.2[facility] HermannHEMATOLOGY 2014-08-11 11:47:0031.7[facility] RkxzyksRSGSULDAIO3607-18-19 11:47:0057.6[facility] WnwkccsWJTXHPFSNB6624-23-15 11:47:001.00[facility] SrikimjEQFTYGKIXH7890-24-90 11:47:00 Test Item Value Reference Range Interpretation Comments PTT (test code = PTT) 28.3 s 22.9-35.8 [facility] XgfixtzQRVSZMGLBW6843-33-44 11:47:00 Test Item Value Reference Range Interpretation Comments PT (test code = PT) 13.2 s 12.0-14.7 [facility] XKMCQUC1848-88-11 11:28:00Product available 1(08/11/14 6:28 AM)[facility] DveaccyJFIJGSYHOWNB0416-49-06 09:39:0011.8[facility] YKLHVUCPSXCP3390-65-68 09:39:0057[facility] GtkdchkAWZOHJJTWXDP7816-86-57 09:39:00 111[facility] VjpgflmVQFRWOZBDBRQ3820-03-93 09:39:0024[facility] HermannELECTROLYTES 2014-05-20 09:39:003.8[facility] OvhtrjfRRRACFDGKVEE0078-80-38 09:39:73387Bihchagu DrwlarfEOCLUUKGYKFV6199-75-70 09:39:007.4[facility] QmlykllSJAQZUJUWZLA9402-94-47 09:39:001.0[facility] WmwwmowFWSXGVUKLBRH2236-14-18 09:39:0017[facility] CBXJRZSZSSVK0111-84-78 09:39:0091[facility] FhgzzeeYCJXVLFVON6865-62-03 09:39:00 9.1[facility] AgrfdviPQZGOEMKVB1961-38-98 09:39:01244Ylvvlseh HermannHEMATOLOGY 2014-05-20 09:39:0034.1[facility] YuxaricUVFNUPDCZW6990-96-58 09:39:0013.1[facility] YqdwhfaRKQYKLDPWL7758-68-18 09:39:009.8[facility] SuxkfcaREDLWIWMON0359-49-90 09:39:0011.3[facility] BvwxogrDDKVKNJIWB5319-10-13 09:39:003.48[facility] CXKFPQSBVR1998-94-30 09:39:0033.0[facility] MxehaqdFFKRFYZLYY3184-66-21 09:39:00 Test Item Value Reference Range Interpretation Comments MCH (test code = MCH) 32.3 pg 27.0-31.0 [facility] MbrjafiPAAAEICSVI8810-85-07 09:39:0094.7[facility]annHEMATOLOGY 2014-05-20 09:39:000.1[facility] MibpidrWTGETWNPHL5569-84-27 09:39:0021.4[facility] SlcshmpIKRNJIZYOY2263-12-87 09:39:0070.4[facility] MxexznoZCFTCXCPHV5924-20-36 09:39:000.2[facility] MxplbkfJFOEWNWFGV6311-01-59 09:39:006.9[facility] YUWKGNKSXL8131-69-74 09:39:000.7[facility] HgtmbmpOKJUNLVQYX0776-00-38 09:39:002.1 [facility] CiiwsdpGTMIAFLKMC0093-45-77 09:39:001.1[facility]annHEMATOLOGY 2014-05-20 09:39:006.9[facility] HermannCHEM BWRLL8324-04-21 01:25:0065[facility]annCHEM VBJSB3908-53-85 01:25:000.9[facility] IpsrinwRTRQAAMGGA6242-89-34 01:25:00 Test Item Value Reference Range Interpretation Comments PTT (test code = PTT) 32.6 s 22.9-35.8 [facility] OuliomvBIMMYYYFOT5285-67-97 01:25:41807Rlpswowo HermannBLOOD BANK UIKXIWP0087-76-90 12:41:00Negative (05/19/14 6:41 AM)[facility]annCHEM PANEL 2014-05-19 12:41:001.0[facility]annCHEM WLSKX2512-79-82 12:41:0010.8[facility]annCHEM MMDLC3078-51-77 12:41:0016[facility]annCHEM JQWTG6658-32-10 12:41:003.8[facility]annCHEM CQSIJ2175-46-29 12:41:0057[facility]annCHEM SYQXK2079-41-52 12:41:003.8[facility] HermannCHEM BSAVA7535-90-33 12:41:28816 [facility]annCHE[facility] ZREQT0449-65-51 12:41:001.0[facility]annCHEM PANEL 2014-05-19 12:41:12549Etvjtzze HermannCHEM BCOKQ6443-79-23 12:41:008.7[facility]annCHEM XYMEN8828-07-88 12:41:000.5[facility]annCHEM OIFLC5906-26-91 12:41:0013[facility]annCHEM ZTMZA2488-71-61 12:41:0066[facility]annCHEM CXFQZ4595-83-47 12:41:007.5[facility]annCHEM OCZAE5767-86-47 12:41:003.7 [facility]annCHEM XTLRR5343-01-03 12:41:0025[facility]annCHEM PANEL 2014-05-19 12:41:0016[facility]annCHEM RMMHK9738-65-39 12:41:0028[facility]annCHEM JBXJV6007-96-98 12:41:0097[facility] JmoddliYOGDXIHAPS3712-50-04 12:41:000.95[facility] XzmwqbgCPPFJJITAV4274-84-27 12:41:00 Test Item Value Reference Range Interpretation Comments PT (test code = PT) 12.7 s 12.0-14.7 [facility] EiuvpdpQNADNWOSRG0027-02-37 12:41:00 Test Item Value Reference Range Interpretation Comments PTT (test code = PTT) 32.9 s 22.9-35.8 [facility] JjcrchiIMKVLVUDEG2120-40-90 12:41:007.1[facility]annHEMATOLOGY 2014-05-19 12:41:0058.7[facility] UzsjsnzZUKEQPZXGI9830-80-08 12:41:000.5[facility] SytrjytPMSUMSFOTP0069-14-62 12:41:0032.5[facility] NftgnapFDUZJHFKYH8344-22-63 12:41:003.5[facility] BfnbwxwAUGQPVWSMG1633-63-61 12:41:001.2[facility] [place] KAXXRFNZSI3086-01-92 12:41:000.1[facility] VifqnwgNNMLKDEZJU5180-55-66 12:41:001.9 [facility] WfjclwxQRBJMIAIAB9270-26-99 12:41:000.4[facility]annHEMATOLOGY 2014-05-19 12:41:004.04[facility] SomedijSSGLPIAKVA1157-05-53 12:41:005.9[facility] HhzbtzuOLXFKYXCIM0551-49-18 12:41:0038.5[facility] XsgojeoGDCUNFHCYA9191-15-78 12:41:0013.1[facility] MbbzvjvZZUQJSQQDT7223-21-71 12:41:0095.5[facility] OOJPETOOOH7987-30-67 12:41:0034.0[facility] WfzxrtsRIRBQYLEQH4992-04-13 12:41:00 Test Item Value Reference Range Interpretation Comments MCH (test code = MCH) 32.5 pg 27.0-31.0 [facility] DsgvsiwVBCPGRKJWR5236-28-14 12:41:0013.3[facility]annHEMATOLOGY 2014-05-19 12:41:009.6[facility] JlkihamPDQCHVGHPL4836-65-42 12:41:78888Qvvaikmu HermannBLOOD BANK CBSYQZY5656-73-89 12:26:00Product available 1(05/19/14 6:26 AM) [facility]UR[facility] VIBWK4109-43-93 19:46:193[facility]annUR[facility] AND XTPIK0700-75-77 19:46:192[facility]annUR[facility] AND RHKUP1399-66-83 19:46:19Trace *ABN*(07/09/2013 13:46:19 Nikky/Pacifica)[facility] STOOL 2013-07-09 19:46:199[facility] MKIEZ3534-67-71 19:46:19Negative (07/09/2013 13:46:19 Nikky/Pacifica)[facility] SZBQK6949-89-87 19:46:19Negative (07/09/2013 13:46:19 Nikky/Pacifica)[facility] AEOQS5252-31-12 19:46:19Negative *NA*(07/09/2013 13:46:19 Nikky/Pacifica) [facility] QAFMF3288-90-02 19:46:196.0[facility] AND BMMFU1723-02-07 19:46:19Marked *ABN*(07/09/2013 13:46:19 Nikky/Pacifica) [facility] YMRJG9384-41-21 19:46:191.010[facility] HermannCARDIAC OEPUPIL7675-43-18 17:15:00<0.02[facility]annCARDIAC ZDYXDSQ5478-76-78 17:15:0034[facility]annCARDIAC GRHGUXS3862-17-42 17:15:00<0.5[facility]annCARDIAC WCQWDWH7408-91-35 17:15:0033[facility]annCARDIAC ENZYMES 2013-07-09 17:15:00<1.5[facility]annCHEM QJVJN5364-23-04 17:15:004.2 [facility]annCHEM IIXWI9197-24-76 17:15:000.9[facility]annCHEM PANEL 2013-07-09 17:15:0014.7[facility] HermannCHEM EKAMX7172-78-10 17:15:0021[facility]annCHEM OZBJA9064-94-40 17:15:0046[facility] HermannCHEM RIPIN3512-58-42 17:15:001.2[facility]annCHEM GTNVX9352-82-95 17:15:0025[facility]annCHEM AKDGA5337-93-56 17:15:22646Ymawmulm HermannCHEM NLSQX2959-32-53 17:15:0026 [facility]annCHEM UJDKW1847-63-52 17:15:003.9[facility]annCHEM PANEL 2013-07-09 17:15:000.5[facility] HermannCHEM JDNDG7436-52-78 17:15:0078[facility] HermannCHEM DAPMA8414-49-38 17:15:003.7[facility] HermannCHEM QBGLQ6442-82-49 17:15:30352Hrynamts HermannCHEM OEZKS4076-76-74 17:15:0023[facility]annCHEM [id number] 17:15:009.1[facility]annCHEM [id number] 17:15:008.1 [facility] [id number] 17:15:008[facility]annCHEM PANEL 2013-07-09 17:15:93809Gyrtnpao UwvnvzmVGWWMJNMOY3415-98-85 17:15:00 Test Item Value Reference Range Interpretation Comments aPTT (test code = aPTT) 25.5 s 22.9-35.8 [facility] [id number] 17:15:00 Test Item Value Reference Range Interpretation Comments PROTIME (test code = PROTIME) 12.7 s 12.0-14.7 [facility] [id number] 17:15:000.96[facility]annHEMATOLOGY 2013-07-09 17:15:24190Dfemdmdg IspczfcFJWWXCFNVZ3419-44-56 17:15:009.1[facility] OowwplvMLHEBRJALM5695-45-80 17:15:0012.4[facility] QvoqgoqDQCYMLFGBL7638-22-06 17:15:004.50[facility] BdksjgiVMZOZMEKNS1944-14-38 17:15:0013.3[facility] [id number] 17:15:0034.5[facility] RacoqeeHINPIBJAKJ9577-96-62 17:15:00 Test Item Value Reference Range Interpretation Comments MCH (test code = MCH) 32.0 pg 27.0-31.0 [facility] [id number] 17:15:0092.7[facility]annHEMATOLOGY 2013-07-09 17:15:0014.4[facility] GkibnceTHUUSRQPWL6348-72-92 17:15:0041.7[facility] TuhvqwrAQHXPHHVKS7518-98-83 17:15:000.0[facility] NnbxrutJDSZALQTSL2078-93-43 17:15:000.0[facility] AkwaljpXGUDXDFTAZ4839-25-16 17:15:000.6[facility] [id number] 17:15:001.3[facility] CsxzoaxVOIPGTUSCB9194-19-78 17:15:00 11.4[facility] NarqqrxHOUHURPSDL3276-48-67 17:15:000.1[facility]annHEMATOLOGY 2013-07-09 17:15:004.5[facility] NsidzsyDZSMVSCDZD0996-57-08 17:15:000.1[facility] LhpzqigZIBHWNEDWR4631-42-39 17:15:0085.7[facility] LajxjohKDELDTJSOE4120-39-24 17:15:009.6[facility]
[2019-12-11 10:03] LABS: Basophils % 0.2 % (0-1.3); Hematocrit 41.5 % (36.0-45.0); Lymphocytes % 24.8 % (15.3-44.8); MPV 9.5 fL (7.6-11.3); RBC Red Blood Cell Count 4.54 M/uL (3.86-4.86)
[2019-12-11 10:04] LABS: Protime INR 1.05
[2019-12-11 10:22] LABS: ALT/SGPT 36 U/L (12-78); AST/SGOT 18 U/L (15-37); Albumin 3.6 g/dL (3.4-5.0); Alkaline Phosphatase 70 U/L (45-117); BUN Blood Urea Nitrogen 31 mg/dL (7-18); Bicarbonate 24 mmol/L (21-32); Bilirubin Direct < 0.1 mg/dL (0-0.2); Bilirubin Total 0.3 mg/dL (0.2-1.0); Glucose Level 134 mg/dL (74-106); Magnesium 2.3 mg/dL (1.8-2.4); NT PRO-BNP 71 pg/mL (<450); Sodium Level 144 mmol/L (136-145); Troponin (Emerg Dept Use Only) < 0.02 ng/mL (0.0-0.045)
--- NOTE | 2019-12-11 10:22 | RAD REPORT ---
EXAM DESCRIPTION: CT - Head Brain Wo Cont - 12/11/2019 10:09 am CLINICAL HISTORY: Dizziness COMPARISON: July 2019 TECHNIQUE: Computed axial tomography of the head was obtained. IV contrast was not requested. All CT scans are performed using dose optimization technique as appropriate and may include automated exposure control or mA/KV adjustment according to patient size. FINDINGS: An intracranial bleed is not seen . The ventricles are normal in caliber. No extra-axial fluid collection is noted. Mild low-density areas within periventricular, deep and subcortical white matter likely represent isc hemic changes secondary to small vessel disease. Fluid within the sinuses/ mastoids is not seen. IMPRESSION: No acute intracranial abnormality is seen.
--- NOTE | 2019-12-11 10:35 | RAD REPORT ---
EXAM DESCRIPTION: CT - Chest Abd Pelvis Wo Con - 12/11/2019 10:09 am CLINICAL HISTORY: Chest, abdominal and back pain COMPARISON: July 2019 CT abdomen TECHNIQUE: Computed axial tomography of the chest, abdomen and pelvis was obtained. Oral contrast wa s given. IV contrast was not requested. All CT scans are performed using dose optimization technique as appropriate and may include automated exposure control or mA/KV adjustment according to patient size. FINDINGS: The evaluation of mediastinum, tatiana, vessels and solid organs is limited secondary to the lack of IV contrast administration Calcified mediastinal lymph nodes. Calcified lung granulomas A pleural effusion is not present. A pericardial effusion is not seen. Splenic granuloma The liver, pancreas, adrenals and right kidney grossly normal. Small parapelvic left renal cysts There is no evidence diverticulitis. Large amount stool is present throughout the colon. Hysterectomy. Small hiatal hernia. No compression fracture involving spine Cholecystectomy IMPRESSION: Large amount stool throughout colon
--- NOTE | 2019-12-11 10:36 | RAD REPORT ---
EXAM DESCRIPTION: [facility] Single View12/11/2019 10:16 am CLINICAL HISTORY: Chest pain COMPARISON: August 2019 FINDINGS: The lungs appear clear of acute infiltrate. The heart is normal size. Pacemaker leads in place IMPRESSION: No acute abnormalities displayed
[2019-12-11 10:40] LABS: Urine Amorphous Sediment 2+ /HPF (NONE SEEN); Urine Bacteria <20 /HPF (<20); Urine Culture Reflex Order NOT NEEDED; Urine RBC NONE SEEN /HPF (NONE SEEN)
[2019-12-11 10:59] LABS: Urine Blood NEGATIVE (NEG); Urine Glucose NEGATIVE (NEG); Urine Protein NEGATIVE (NEG); Urine Specific Gravity 1.025 (1.005-1.030)
--- NOTE | 2019-12-11 11:38 | EDPHYS ---
Physician Documentation [facility] Name: Ekta Allison Age: 74 yrs Sex: Female : 1945 Arrival Date: 12/11/2019 Time: 09:11 Bed 6 Private MD: Madison Campoverde ED Physician Keyur Pardo HPI: 12/10 11:26 This 74 yrs old Female presents to ER via Wheelchair with complaints of Low kdr Back Pain, Dizziness, Abdominal Pain. 11:27 The patient has multiple c/o including dizziness, back pain and abdominal pain. The kdr dizziness is similar to what she has had with prior UTIs. Does not appear to be true vertigo but rather lightheartedness. Her back pain has been ongoing for a few months and she believes is secondary to a fall she had some weeks ago down some stairs where she slide on her back. Her abdominal pain is diffuse and non-focal and she denies any other GI s/s. Severity of symptoms: At their worst the symptoms were mild moderate just prior to arrival, in the emergency department the symptoms are unchanged. The patient has not experienced similar symptoms in the past. The patient has not recently seen a physician. Historical: - Allergies: 09:29 Iodinated Contrast Media - IV Dye; bp 09:29 Vicodin; bp - Home Meds: 09:29 pantoprazole 40 mg Oral TbEC 1 tab once daily [Active]; aspirin 81 mg Oral chew 1 tab bp once daily [Active]; Amlodipine/valsartan 5-160mg tab 1 tab daily [Active]; - PMHx: 09:29 Hypertension; Pacemaker; High Cholesterol; bp - Immunization history:: Adult Immunizations up to date. - Social history:: Smoking status: Patient denies any tobacco usage or history of. ROS: 11:27 Constitutional: Negative for fever, chills, and weight loss, Eyes: Negative for injury, kdr pain, redness, and discharge, Neck: Negative for injury, pain, and swelling, Cardiovascular: Negative for chest pain, palpitations, and edema, Respiratory: Negative for shortness of breath, cough, wheezing, and pleuritic chest pain, : Negative for injury, bleeding, discharge, and swelling, MS/Extremity: Negative for injury and deformity, Skin: Negative for injury, rash, and discoloration, Psych: Negative for depression, anxiety, suicide ideation, homicidal ideation, and hallucinations, Allergy/Immunology: Negative for hives, rash, and allergies, Endocrine: Negative for neck swelling, polydipsia, polyuria, polyphagia, and marked weight changes, Hematologic/Lymphatic: Negative for swollen nodes, abnormal bleeding, and unusual bruising. 11:27 Abdomen/GI: Positive for abdominal pain, constipation, Negative for vomiting, diarrhea, abdominal distension, dysphagia, hematemesis, black/tarry stool, rectal pain, rectal bleeding, bowel incontinence. Exam: 11:27 Constitutional: This is a well developed, well nourished patient who is awake, alert, kdr and in no acute distress. Head/Face: Normocephalic, atraumatic. Eyes: Pupils equal round and reactive to light, extra-ocular motions intact. Lids and lashes normal. Conjunctiva and sclera are non-icteric and not injected. Cornea within normal limits. Periorbital areas with no swelling, redness, or edema. Neck: Trachea midline, no thyromegaly or masses palpated, and no cervical lymphadenopathy. Supple, full range of motion without nuchal rigidity, or vertebral point tenderness. No Meningismus. Chest/axilla: Normal chest wall appearance and motion. Nontender with no deformity. No lesions are appreciated. Cardiovascular: Regular rate and rhythm with a normal S1 and S2. No gallops, murmurs, or rubs. Normal PMI, no JVD. No pulse deficits. Respiratory: Lungs have equal breath sounds bilaterally, clear to auscultation and percussion. No rales, rhonchi or wheezes noted. No increased work of breathing, no retractions or nasal flaring. Abdomen/GI: Soft, very mmildy tender, with normal bowel sounds. No distension or tympany. No guarding or rebound. No evidence of tenderness throughout. Back: No spinal tenderness. No costovertebral tenderness. Full range of motion. Skin: Warm, dry with normal turgor. Normal color with no rashes, no lesions, and no evidence of cellulitis. MS/ Extremity: Pulses equal, no cyanosis. Neurovascular intact. Full, normal range of motion. Neuro: Awake and alert, GCS 15, oriented to person, place, time, and situation. Cranial nerves II-XII grossly intact. Motor strength 5/5 in all extremities. Sensory grossly intact. Cerebellar exam normal. Normal gait. Psych: Awake, alert, with orientation to person, place and time. Behavior, mood, and affect are within normal limits. Vital Signs: 09:26 BP 161 / 65; Pulse 63; Resp 17; Temp 98.4; Pulse Ox 100% ; Weight 58.97 kg; Height 5 bp ft. 1 in. (154.94 cm); 09:45 BP 166 / 68; Pulse 73; Resp 16; Pulse Ox 100% ; bp 10:22 BP 165 / 66; Pulse 61; Resp 17; Pulse Ox 100% ; bp 11:23 BP 179 / 75; Pulse 60; Resp 12; Pulse Ox 100% ; bp 12:30 BP 176 / 68; Pulse 62; Resp 22; Pulse Ox 98% ; bp 13:15 BP 145 / 69; Pulse 61; Resp 17; Temp 98.5; Pulse Ox 100% ; bp 09:26 Body Mass Index 24.56 (58.97 kg, 154.94 cm) bp MDM: 11:27 Data reviewed: vital signs, nurses notes, lab test result(s), radiologic studies. kdr Counseling: I had a detailed discussion with the patient and/or guardian regarding: the historical points, exam findings, and any diagnostic results supporting the discharge/admit diagnosis, lab results, radiology results, the need for outpatient follow up. 11:37 Patient medically screened. kdr 12/10 09:46 Order name: Basic Metabolic Panel; Complete Time: 11:22 bp 12/10 09:46 Order name: CBC with Diff; Complete Time: 11:22 bp 12/10 09:46 Order name: LFT's; Complete Time: 11:22 bp 12/10 09:46 Order name: Magnesium; Complete Time: 11:22 bp 12/10 09:47 Order name: NT PRO-BNP; Complete Time: 11:22 bp 12/10 09:47 Order name: PT-INR; Complete Time: 11:22 bp 12/10 09:47 Order name: Troponin (emerg Dept Use Only); Complete Time: 11:22 bp 12/10 09:47 Order name: XRAY Chest (1 view); Complete Time: 11:22 bp 12/10 09:47 Order name: EKG; Complete Time: :47 bp 12/10 09:47 Order name: Urine Microscopic Only; Complete Time: 11:22 bp 12/10 09:47 Order name: CT Head Brain wo Cont; Complete Time: 11:22 bp 12/10 10:03 Order name: Chest Abd Pelvis Wo Con; Complete Time: 11:22 EDMS 12/10 10:12 Order name: Urine Dipstick--Ancillary (enter results); Complete Time: 11:22 bd 12/10 09:47 Order name: Cardiac monitoring; Complete Time: 09:47 bp 12/10 09:47 Order name: EKG - Nurse/Tech; Complete Time: 09:47 bp 12/10 09:47 Order name: IV Saline Lock; Complete Time: 09:48 bp 12/10 09:47 Order name: Labs collected and sent; Complete Time: :48 bp 12/10 09:47 Order name: O2 Per Protocol; Complete Time: 09:48 bp 12/10 09:47 Order name: O2 Sat Monitoring; Complete Time: 09:48 bp 12/10 09:47 Order name: Urine Dipstick-Ancillary (obtain specimen); Complete Time: 09:50 bp 12/10 09:47 Order name: Straight Cath; Complete Time: 09:47 bp Administered Medications: 11:50 Drug: Meclizine 25 mg Route: PO; bp 13:05 Follow up: Response: Marked relief of symptoms bp Disposition: 12/11/19 11:37 Discharged to Home. Impression: Abdominal and pelvic pain, Constipation, Dizziness and giddiness, Low back pain. - Condition is Stable. - Discharge Instructions: Musculoskeletal Pain, Abdominal Pain, Adult, Ywew-af-Vzib, Back Pain, Adult, Fhwo-lo-Twqv, Vertigo, Qhms-lb-Kimr, Dizziness, Dayl-ou-Yqes. - Prescriptions for Meclizine 25 mg Oral Tablet - take 1 tablet by ORAL route every 8 hours As needed; 30 tablet. Miralax 17 gram/dose Oral - take 1 packet by ORAL route once daily dilute powder in 8 ounces of water or juice; 12 packet. - Medication Reconciliation Form, Thank You Letter, Antibiotic Education, Prescription Opioid Use form. - Follow up: Madison Campoverde; When: 2 - 3 days; Reason: If symptoms return, Further diagnostic work-up, Recheck today's complaints, Continuance of care, Re-evaluation by your physician. - Problem is an ongoing problem. - Symptoms have improved. Signatures: Dispatcher [employer] EDMS Keyur Pardo MD MD kdr Marcell Meyer, RN RN bp Corrections: (The following items were deleted from the chart) 13:35 11:37 12/11/2019 11:37 Discharged to Home. Impression: Abdominal and pelvic pain; bp Constipation; Dizziness and giddiness; Low back pain. Condition is Stable. Forms are Medication Reconciliation Form, Thank You Letter, Antibiotic Education, Prescription Opioid Use. Follow up: Madison Campoverde; When: 2 - 3 days; Reason: If symptoms return, Further diagnostic work-up, Recheck today's complaints, Continuance of care, Re-evaluation by your physician. Problem is an ongoing problem. Symptoms have improved. kdr 13:35 13:35 12/11/2019 11:37 Discharged to Home. Impression: Abdominal and pelvic pain; bp Constipation; Dizziness and giddiness; Low back pain. Condition is Stable. Discharge Instructions: Musculoskeletal Pain, Abdominal Pain, Adult, Tjra-uk-Slsm, Back Pain, Adult, Inog-gv-Gjim, Vertigo, Djgv-ol-Qqke, Dizziness, Bshl-fq-Kotj. Prescriptions for Meclizine 25 mg Oral Tablet - take 1 tablet by ORAL route every 8 hours As needed; 30 tablet, Miralax 17 gram/dose Oral - take 1 packet by ORAL route once daily dilute powder in 8 ounces of water or juice; 12 packet. and Forms are Medication Reconciliation Form, Thank You Letter, Antibiotic Education, Prescription Opioid Use. Follow up: Madison Campoverde; When: 2 - 3 days; Reason: If symptoms return, Further diagnostic work-up, Recheck today's complaints, Continuance of care, Re-evaluation by your physician. Problem is an ongoing problem. Symptoms have improved. bp
--- NOTE | 2019-12-11 11:38 | ER ---
Nurse's Notes [facility] Name: Ekta Allison Age: 74 yrs Sex: Female : 1945 Arrival Date: 12/11/2019 Time: 09:11 Bed 6 Private MD: Madison Campoverde Diagnosis: Abdominal and pelvic pain;Constipation;Dizziness and giddiness;Low back pain Presentation: 12/10 09:26 Chief complaint: Patient states: 2 WEEKS LUMBAR PAIN, LOWER ABDOMINAL PAIN, MALAISE AND bp RECENT DIZZINESS. Coronavirus screen: At this time, the client does not indicate any symptoms associated with coronavirus-19. Ebola Screen: No symptoms or risks identified at this time. Initial Sepsis Screen: Does the patient meet any 2 criteria? No. Patient's initial sepsis screen is negative. Does the patient have a suspected source of infection? No. Patient's initial sepsis screen is negative. Risk Assessment: Do you want to hurt yourself or someone else? Patient reports no desire to harm self or others. Onset of symptoms is unknown. 09:26 Method Of Arrival: Wheelchair bp 09:26 Acuity: VINEET 3 bp Triage Assessment: 09:29 General: Appears distressed, uncomfortable, Behavior is cooperative, appropriate for bp age, anxious. Pain: Complains of pain in back and abdomen. EENT: No deficits noted. Neuro: Level of Consciousness is awake, alert, obeys commands, Oriented to person, place, time, situation, Appropriate for age. Cardiovascular: No deficits noted. Respiratory: No deficits noted. GI: Reports lower abdominal pain. : No signs and/or symptoms were reported regarding the genitourinary system. Derm: No deficits noted. Musculoskeletal: No deficits noted. Historical: - Allergies: 09:29 Iodinated Contrast Media - IV Dye; bp 09:29 Vicodin; bp - Home Meds: : pantoprazole 40 mg Oral TbEC 1 tab once daily [Active]; aspirin 81 mg Oral chew 1 tab bp once daily [Active]; Amlodipine/valsartan 5-160mg tab 1 tab daily [Active]; - PMHx: 09:29 Hypertension; Pacemaker; High Cholesterol; bp - Immunization history:: Adult Immunizations up to date. - Social history:: Smoking status: Patient denies any tobacco usage or history of. Screenin:30 Abuse screen: Denies threats or abuse. Denies injuries from another. Nutritional bp screening: No deficits noted. Tuberculosis screening: No symptoms or risk factors identified. Fall Risk Assessment: 09:30 General: SEE TRIAGE NOTE. bp 10:22 Reassessment: PT RETURNED FROM CT. ALL CURRENT ORDERS IN PROCESS. bp 11:23 Reassessment: ALL CURRENT ORDERS RESULTED. INITIAL RESULTS UNREMARKABLE. VS STABLE ON bp MONITOR. 12:00 Reassessment: PT CONTINUES TO C/O MALAISE AND DIZZINESS, D/C ON HOLD. MD AWARE. bp 13:00 GI: Bowel sounds present X 4 quads. Abd is soft and non tender X 4 quads. bp 13:02 Reassessment: PT EXPRESSING ANXIETY OVER NIBP BUT STATES IMPROVEMENT IN DIZZINESS. PT bp PLACED IN RECUMBENT POSITION AND ENCOURAGED NOT TO WATCH NIBP MEASUREMENT. 13:39 Reassessment: PT D/C HOME VIA W/C, DX WITH DIZZINESS AND GIDDINESS. bp Vital Signs: 09:26 BP 161 / 65; Pulse 63; Resp 17; Temp 98.4; Pulse Ox 100% ; Weight 58.97 kg; Height 5 bp ft. 1 in. (154.94 cm); 09:45 BP 166 / 68; Pulse 73; Resp 16; Pulse Ox 100% ; bp 10:22 BP 165 / 66; Pulse 61; Resp 17; Pulse Ox 100% ; bp 11:23 BP 179 / 75; Pulse 60; Resp 12; Pulse Ox 100% ; bp 12:30 BP 176 / 68; Pulse 62; Resp 22; Pulse Ox 98% ; bp 13:15 BP 145 / 69; Pulse 61; Resp 17; Temp 98.5; Pulse Ox 100% ; bp 09:26 Body Mass Index 24.56 (58.97 kg, 154.94 cm) bp ED Course: 09:11 Patient arrived in ED. ag5 09:11 Madison Campoverde is Private Physician. ag5 09:13 Marcell Meyer, MAGNO is Primary Nurse. bp 09:16 Keyur Pardo MD is Attending Physician. kdr 09:27 Triage completed. bp 09:29 Arm band placed on. bp 09:30 Patient has correct armband on for positive identification. Placed in gown. Bed in low bp position. Call light in reach. Side rails up X2. clinical research monitor on. Pulse ox on. NIBP on. 09:30 Inserted saline lock: 22 gauge in left antecubital area, using aseptic technique. Blood bp collected. 10:10 CT Head Brain wo Cont In Process Unspecified. EDMS 10:10 Chest Abd Pelvis Wo Con In Process Unspecified. EDMS 10:14 XRAY Chest (1 view) In Process Unspecified. EDMS 11:35 Madison Campoverde is Referral Physician. kdr 13:38 No provider procedures requiring assistance completed. IV discontinued, intact, bp bleeding controlled, No redness/swelling at site. Pressure dressing applied. Administered Medications: 11:50 Drug: Meclizine 25 mg Route: PO; bp 13:05 Follow up: Response: Marked relief of symptoms bp Outcome: 11:37 Discharge ordered by . kdr 13:35 Patient left the ED. bp 13:38 Discharged to home ambulatory, via wheelchair. bp 13:38 Condition: stable 13:38 Discharge instructions given to patient, Instructed on discharge instructions, follow up and referral plans. medication usage, Demonstrated understanding of instructions, follow-up care, medications. Signatures: Dispatcher [employer] EDMS Keyur Pardo MD MD kdr Marcell Meyer, RN RN bp Shawnee Perez ag5
[2019-12-11] MEDS ORDERED: MECLIZINE HCL 12.5 MG TAB ONE (12:07)
[2019-12-11 13:42] VITALS: TEMP 98.4
[2019-12-11 13:47] VITALS: BP 176/68; O2SAT 98
== END 2019-12-11 13:35 | disposition home or self-care (01) ==
LOC: ER 09:09
DX: K59.00 Constipation, unspecified (principal); R42 Dizziness and giddiness; M54.5 Low back pain; I10 Essential (primary) hypertension; E78.00 Pure hypercholesterolemia, unspecified; Z79.82 Long term (current) use of aspirin; Z88.5 Allergy status to narcotic agent; Z95.0 Presence of cardiac pacemaker; Z91.041 Radiographic dye allergy status
CPT/HCPCS: 36415; 70450; 71045; 71250; 74176; 80048; 80076; 81003; 81015; 83735; 83880; 84484; 85025; 85610; 93005; 99284; J8597

== ENCOUNTER 2020-08-04 06:22 | Day surgery (SDC) | payer OTHER ==
[2020-08-04] MEDS ORDERED: Ringers Lactate 1,000 ML IV ONE (06:58)
[2020-08-04] MEDS ORDERED: propofoL 200 MG/20 ML VIAL IV ONE (07:42)
[2020-08-04] MEDS ORDERED: LIDOCAINE 1% MPF 5 ML VIAL ONE (07:42)
[2020-08-04] MEDS ORDERED: EPINEPHRINE/PF 1 MG/ML AMP ONE (07:51)
[2020-08-04 08:35] VITALS: O2SAT 100
[2020-08-04 08:59] VITALS: BP 124/52; TEMP 97.6
== END 2020-08-04 09:50 | disposition home health service (06) ==
LOC: OR 06:22
PROVIDERS: ATTEND Internal Medicine Gastroenterology
PROC: 0DBK8ZX Excision of Ascending Colon, Via Natural or Artificial Opening Endoscopic, Diagnostic (ICD-10-PCS; principal; 2020-08-04 07:30)
DX: D12.2 Benign neoplasm of ascending colon (principal); R19.5 Other fecal abnormalities; R10.32 Left lower quadrant pain; R10.31 Right lower quadrant pain; K64.8 Other hemorrhoids; K57.30 Diverticulosis of large intestine without perforation or abscess without bleeding; Z86.010 Personal history of colon polyps; Z20.822 Contact with and (suspected) exposure to COVID-19
CPT/HCPCS: 45385; 88305; U0002; J2704; J7120; J0171

== ENCOUNTER 2021-03-02 08:45 | Day surgery (SDC) | payer OTHER ==
[2021-03-01 10:50] LABS: Absolute Lymphocytes (CBC) 1.9 K/uL (0.7-4.9); Basophils % 0.8 % (0-1.3); Hematocrit 39.5 % (36.0-45.0); Lymphocytes % 25.9 % (15.3-44.8); RBC Red Blood Cell Count 4.34 M/uL (3.86-4.86)
[2021-03-01 11:05] LABS: Potassium 3.7 mmol/L (3.5-5.1)
--- NOTE | 2021-03-01 16:42 | EKG ---
Test Date: 2021-03-01 Test Time: 08:58:29 Supervisor Extrusion: GLORY MEASUREMENT RESULTS: Intervals: Rate: 63 NJ: 126 QRSD: 82 QT: 392 QTc: 401 [place]: P: 75 NJ: 126 QRS: 1 T: 87 INTERPRETIVE STATEMENTS: Normal sinus rhythm Inferior infarct, age undetermined Abnormal ECG Compared to ECG 12/11/2019 09:34:20 Myocardial infarct finding now present Short NJ interval no longer present Electronically Signed On 03-01-21 16:40:52 CDT by Thomas Knox
--- NOTE | 2021-03-01 21:18 | RAD REPORT ---
EXAM DESCRIPTION: RAD - Chest Pa And Lat (2 Views) - 03/01/2021 12:55 pm CLINICAL HISTORY: Cough. COMPARISON: Single view chest 11/2019 TECHNIQUE: PA and lateral views of the chest were obtained. FINDINGS: No new mass or consolidation of the lung parenchyma. No failure or volume overload. Inters titial pattern matches comparison. Left subclavian two lead pacemaker remains in place. Heart size and central vasculature are normal an d stable. No pneumothorax or pleural effusion. No acute bone finding. Osteopenic change is evident with accentu ated thoracolumbar kyphosis. IMPRESSION: 1. No acute cardiopulmonary finding. 2. Above detailed findings are not clearly different from the comparison.
[2021-03-02] MEDS ORDERED: Ringers Lactate 1,000 ML IV ONE (09:34)
[2021-03-02] MEDS ORDERED: CEFAZOLIN/NS 1gm 1 GM/50 ML BAG ONE (09:34)
[2021-03-02] MEDS ORDERED: BUPIVACA 0.5%/EPI 0.0005%/PF 30 ML VIAL ONE (09:42)
[2021-03-02] MEDS ORDERED: BUPIVACAINE 0.5% PF 10 ML VIAL ONE (09:43)
[2021-03-02] MEDS ORDERED: FENTANYL CITR 100 MCG/2 ML ONE (10:14)
[2021-03-02] MEDS ORDERED: MIDAZOLAM HCL 2 MG/2 ML INJ ONE (10:14)
[2021-03-02] MEDS ORDERED: ROCURONIUM 50 MG/5 ML VIAL IV ONE ×2 (10:15→11:30)
[2021-03-02] MEDS ORDERED: propofoL 200 MG/20 ML VIAL IV ONE (10:15)
[2021-03-02] MEDS ORDERED: LIDOCAINE 2% MPF 5 ML VIAL ONE (10:15)
[2021-03-02] MEDS ORDERED: SUCCINYLCHOLINE 20 MG/ML (10 ML) IV ONE (10:23)
[2021-03-02] MEDS ORDERED: GLYCOPYRROLATE 0.2 MG/ML SYR ONE ×2 (11:01→11:41)
[2021-03-02] MEDS ORDERED: NEOSTIGMINE 1 MG/ML -5 ML ONE (11:42)
[2021-03-02] MEDS ORDERED: KETOROLAC 30 MG/ML INJ ONE (11:45)
[2021-03-02] MEDS: HYDROMORPHONE HCL 1 MG/ML INJ ONE ×2 (11:46→11:58)
--- NOTE | 2021-03-02 11:47 | P.BOP ---
Preoperative diagnosis: tender ventral incisional hernia, abd pain Postoperative diagnosis: same, intrabdominal adhesions Primary procedure: Diagnostic laparoscopy, Secondary procedure: Laparoscopic assisted repair of tender ventral incisional hernia Estimated blood loss: <10cc Specimen: none Findings: see dictation, ventral incisional hernia Anesthesia: General Complications: None Transferred to: Recovery Room Condition: Good
[2021-03-02] MEDS ORDERED: HYDROMORPHONE HCL 1 MG/ML INJ ONE (12:35)
[2021-03-02] MEDS ORDERED: HYDRALAZINE HCL 20 MG/ML VIAL ONE (13:10)
[2021-03-02] MEDS ORDERED: TRAMADOL 37.5mg/APAP 325mg PER TAB ONE (13:21)
[2021-03-02] MEDS ORDERED: ONDANSETRON 4 MG/2 ML VIAL ONE (13:25)
[2021-03-02 15:07] VITALS: BP 134/55; TEMP 97.1; O2SAT 95
--- NOTE | 2021-03-07 14:10 | DS ---
Date of Discharge: 03/02/2021 Diagnoses: Tender ventral incisional hernia, chronic abdominal pain, multiple previous surgeries wit h intraabdominal adhesions. Procedures: Diagnostic laparoscopy, laparoscopic-assisted repair of tender ventral incisional hernia . Disposition: Home. Activity: As tolerated. No heavy lifting. Plan: Follow up in my office in 1 week. Call for appointment at [phone]. SEAN/DARNELL Voice ID: [id number] Report ID: [id number]
--- NOTE | 2021-03-07 14:31 | OP ---
Date of Procedure: 03/02/2021 Surgeon: Sylvain Ahumada MD Preoperative Diagnoses: Tender ventral incisional hernia, chronic abdominal pain. Postoperative Diagnoses: Tender ventral incisional hernia, chronic abdominal pain plus intraabdomina l adhesions. Procedures: Diagnostic laparoscopic assisted repair of tender ventral incisional hernia. Estimated Blood Loss: Less than 10 mL. Specimen: None. Findings: The patient has a ventral incisional hernia. When we put the cameras in, we noticed she h as adhesions all over the abdomen. We have no previous evidence of those adhesions causing the bowel obstruction. She is a high risk for long surgical intervention, so removing these adhesions from th at area does not guarantee that her pain goes away and we do not even know if that is the one causing the pain at this moment. So, we are going to limit herself to fix the ventral incisional hernia, wh [facility] is where she has the tenderness and the plan was discussed today and then we discussed with her t he options once we obtained a clearance and since lysis of adhesions may cause unnecessary new pain, any obstructions, and she has to understand that. She has chronic abdominal pain, multiple surgeries in the past that I do not have the details of. Anesthesia: General plus local. Indications: This is the case of a female, who comes to us with chronic abdominal pain. She has bee n in multiple places, multiple imaging's, always has pain in the right and left in the entire abdomen . She has been submitted to many surgeries. I do not have those since they were not done in this in stitution. She was found to have an upper ventral incisional hernia. I explained to her that the pa in is all over. We have no signs of obstruction at this moment, though that hernia even though is te nder, I do not think we can be accounted for the rest of the symptoms that she has. She wants the he rnia to be fixed. Through the hernia, I am going to put a camera through to obtain diagnostic laparo scopy to confirm the findings. She stated that she has extensive surgeries in the past with complica tions and she has to be careful with long-term surgeries since she has a high risk for surgical inter vention. We gave the clearance for the hernia at this moment. So, I fully explained the benefits, a lternatives, and risks of above procedure, which include, but not limited to infection, bleeding, dam age to adjacent structures, anesthesia complications, recurrence, [place], and even . She also under stands this may not relieve any symptoms. She might need more than one surgical intervention. She u nderstood, signed a consent. Procedure In Detail: The patient was brought to the operating room, placed in supine position. Anes thesia was done without complication. Abdominal area was prepped and draped in usual sterile fashion . We calculated in the area watching the CAT scan where the hernia was found. We made an incision i n the ventral region and very careful since the patient has multiple surgeries and we expect a large amount of adhesions were made underneath. We were able to find that and fascia opened under direct v ision. We were able to put Vicryl #1 inside of the fascia. Michelle trocar carefully introduced and p neumoperitoneum was obtained. Our visualization is limited. There are adhesions in the entire abdom en. We looked at the area of the right lower quadrant where she has chronic pain and we do not see a ny hernias in that region. In order for me to take care of all these adhesions, I may have to even d o a laparotomy or very extensive laparoscopy and we do not have the clearance for that at this moment . I know previously this is not causing any obstruction and going after those adhesions does not lien nagy the pain will go away, but it will complicate her picture and probably give her some of the ob structions in the future, chronic pain, and if we do enterotomies, then surgery and that s he might not be able to undergo. At that moment, I limited myself just to fix the hernia. I did not do the lysis of adhesions and the rest of the abdomen. We only did whatever is relevant to this sma ll hernia in that region. We did not have to put a mesh. The skin edges came together. There were no enterotomies. No bleeding seen. At that moment, I proceeded to close the fascia in a figure-of-e ight fashion multiple times and then closed the subcutaneous tissue with 3-0 chromic and the skin wit h porfirio. Sponge count and instrument counts correct. The patient tolerated the procedure well. The patient w as sent to recovery in stable condition. SEAN/MODL Voice ID: [id number] Report ID: [id number]
== END 2021-03-02 15:03 | disposition home or self-care (01) ==
LOC: OR 08:45
PROVIDERS: ATTEND Surgery
PROC: 0WQF4ZZ Repair Abdominal Wall, Percutaneous Endoscopic Approach (ICD-10-PCS; principal; 2021-03-02 10:00)
DX: K43.2 Incisional hernia without obstruction or gangrene (principal); Z20.822 Contact with and (suspected) exposure to COVID-19
CPT/HCPCS: 36415; 71046; 80048; 85025; 93005; J0330; J0360; J0690; J1170; J2250; J2405; J2704; J2710; J3010; J7120; U0003

== ENCOUNTER 2021-03-05 04:52 | Inpatient (IN) | payer OTHER ==
[2021-03-05] MEDS ORDERED: FAMOTIDINE 20 MG/2 ML VIAL IV ONE (05:58)
[2021-03-05] MEDS ORDERED: ONDANSETRON 4 MG/2 ML VIAL ONE (05:58)
[2021-03-05] MEDS ORDERED: NA CHLORIDE 0.9% 1,000 ML ONE ×2 (05:58→08:17)
[2021-03-05] MEDS ORDERED: MORPHINE 2 MG/ML SYR ONE (06:00)
[2021-03-05 06:06] LABS: Absolute Lymphocytes (CBC) 0.5 K/uL (0.7-4.9); Basophils % 0.5 % (0-1.3); Hematocrit 36.5 % (36.0-45.0); Lymphocytes % 2.7 % (15.3-44.8); MPV 9.2 fL (7.6-11.3); RBC Red Blood Cell Count 4.02 M/uL (3.86-4.86)
[2021-03-05 06:24] LABS: Albumin 2.6 g/dL (3.4-5.0); Bilirubin Direct 0.2 mg/dL (0-0.2); Bilirubin Total 0.4 mg/dL (0.2-1.0); Potassium 3.8 mmol/L (3.5-5.1); Protein, Total 7.4 g/dL (6.4-8.2)
--- NOTE | 2021-03-05 07:32 | RAD REPORT ---
EXAM DESCRIPTION: CTAbdomen Pelvis Wo Contrast - 03/05/2021 7:08 am CLINICAL HISTORY: s/p abdominal surgery;Nausea / vomiting;Abd pain COMPARISON: CT ABD PELVIS W CONTRAST dated 11/28/2008bdomen Pelvis Wo Contrast dated 01/31/2021; Ab domen Pelvis Wo Contrast dated 07/08/2020; Stone Protocol dated 08/05/2019; Abdomen Pelvis Wo Contr ast dated 07/03/2019 TECHNIQUE: CT of the abdomen and pelvis was performed. All CT scans are performed using dose optimization technique as appropriate and may include automated exposure control or mA/KV adjustment according to patient size. FINDINGS: Lower chest: Dependent atelectasis versus aspiration. This is mild. Pacemaker leads. Small hiatal hernia. Liver: No acute abnormality or suspicious lesions. Biliary: Cholecystectomy. Stomach: No significant focal abnormality. Duodenum: No significant focal abnormality. Pancreas: No significant abnormality. Spleen: No significant abnormality. Adrenal: No suspicious lesions. Kidney/ureter: No hydronephrosis. No renal calculi. Renal sinus cysts. Retroperitoneum: Surgical clips in the retroperitoneum in the right lower quadrant. Vascular: Atherosclerosis without aneurysm. Bowel: Large volume of stool in the cecum.. No bowel obstruction. Peritoneum: Mild free air is noted. Surgical changes from recent ventral hernia repair. Subjacent to the hernia repair. Most is gas but there is a small air-fluid level. This measures 7.3 cm x 2.4 cm in CC by AP dimension. Bladder: Grossly unremarkable. Reproductive: No adnexal masses. Hysterectomy. Bones: No acute fracture. Other: n/a IMPRESSION: Surgical changes from recent ventral hernia repair. Free air is present which is more th an expected. In addition, there is a predominantly gas containing fluid collection subjacent to the r epair. Though possibly postsurgical, a bowel perforation cannot be excluded.
[2021-03-05] MEDS ORDERED: PROMETHAZINE INJ 25 MG/ML AMP ONE (07:53)
[2021-03-05] MEDS ORDERED: CEFTRIAXONE 1000 MG/VIAL ONE (08:16)
[2021-03-05] MEDS ORDERED: WATER FOR INJ,STERILE 10 ML ONE (08:16)
--- NOTE | 2021-03-05 08:29 | EDPHYS ---
Physician Documentation [facility] Name: Ekta Allison Age: 75 yrs Sex: Female : 1945 Arrival Date: 03/05/2021 Time: 04:56 Bed 23 Private MD: ED Physician Tim Lyle HPI: 03/05 06:11 This 75 yrs old Female presents to ER via Ambulatory with complaints of mh7 Vomiting. 06:11 The patient presents to the emergency department with nausea, that is moderate, mh7 vomiting, that is intermittent, described as clear fluid, abdominal pain, of the epigastric area, described as intermittent, vague,\\E\\ waxing and waning, and does not radiate. Onset: The symptoms/episode began/occurred 3 day(s) ago. Possible causes: Recent abdominal surgery. The symptoms are aggravated by nothing. The symptoms are alleviated by nothing. Associated signs and symptoms: Pertinent positives: abdominal pain, nausea, vomiting. Severity of symptoms: At their worst the symptoms were moderate yesterday, in the emergency department the symptoms are unchanged. The patient has been recently seen by a physician: 3 day(s) ago, Dr. Ahumada. Patient states that she had abdominal surgery 3 days ago and has had nausea and vomiting since. Denies any fever, cough, chest pain, headache, shortness of breath, diarrhea, dysuria, numbness/tingling, dizziness, or weakness.. Historical: - Allergies: 05:19 Iodinated Contrast Media - IV Dye; wg 05:19 Vicodin; wg - Home Meds: 05:19 "cannot remember" [Active]; wg - PMHx: 05:19 High Cholesterol; Hypertension; Pacemaker; wg - Immunization history:: Adult Immunizations up to date. - Social history:: Smoking status: Patient denies any tobacco usage or history of. ROS: 06:11 Constitutional: Negative for fever, chills, and weight loss, Eyes: Negative for injury, mh7 pain, redness, and discharge, ENT: Negative for injury, pain, and discharge, Neck: Negative for injury, pain, and swelling, Cardiovascular: Negative for chest pain, palpitations, and edema, Respiratory: Negative for shortness of breath, cough, wheezing, and pleuritic chest pain, Back: Negative for injury and pain, : Negative for injury, bleeding, discharge, and swelling, MS/Extremity: Negative for injury and deformity, Skin: Negative for injury, rash, and discoloration, Neuro: Negative for headache, weakness, numbness, tingling, and seizure, Psych: Negative for depression, anxiety, suicide ideation, homicidal ideation, and hallucinations, Allergy/Immunology: Negative for hives, rash, and allergies, Endocrine: Negative for neck swelling, polydipsia, polyuria, polyphagia, and marked weight changes, Hematologic/Lymphatic: Negative for swollen nodes, abnormal bleeding, and unusual bruising. Exam: 06:11 Head/Face: Normocephalic, atraumatic. Eyes: Pupils equal round and reactive to light, mh7 extra-ocular motions intact. Lids and lashes normal. Conjunctiva and sclera are non-icteric and not injected. Cornea within normal limits. Periorbital areas with no swelling, redness, or edema. Neck: Trachea midline, no thyromegaly or masses palpated, and no cervical lymphadenopathy. Supple, full range of motion without nuchal rigidity, or vertebral point tenderness. No Meningismus. Chest/axilla: Normal chest wall appearance and motion. Nontender with no deformity. No lesions are appreciated. Cardiovascular: Regular rate and rhythm with a normal S1 and S2. No gallops, murmurs, or rubs. Normal PMI, no JVD. No pulse deficits. Respiratory: Lungs have equal breath sounds bilaterally, clear to auscultation and percussion. No rales, rhonchi or wheezes noted. No increased work of breathing, no retractions or nasal flaring. 06:11 Back: No spinal tenderness. No costovertebral tenderness. Full range of motion. Skin: Warm, dry with normal turgor. Normal color with no rashes, no lesions, and no evidence of cellulitis. MS/ Extremity: Pulses equal, no cyanosis. Neurovascular intact. Full, normal range of motion. Neuro: Awake and alert, GCS 15, oriented to person, place, time, and situation. Cranial nerves II-XII grossly intact. Motor strength 5/5 in all extremities. Sensory grossly intact. Cerebellar exam normal. Normal gait. Psych: Awake, alert, with orientation to person, place and time. Behavior, mood, and affect are within normal limits. 06:11 Constitutional: The patient appears in no acute distress, alert, awake, uncomfortable. 06:11 Abdomen/GI: Inspection: scar(s), are noted in the epigastric area, Clean, dry, intact, no erythema, discharge, swelling, or induration., Bowel sounds: normal, in all quadrants, Palpation: mild abdominal tenderness, in the epigastric area, mass, is not appreciated, rebound tenderness, is not appreciated, voluntary guarding, is not appreciated, involuntary guarding, is not appreciated, no appreciated organomegaly, Rectal exam: the exam is deferred, because of patient request, Indicators: McBurney's point is not tender, Huynh's sign is negative, Rovsing's sign is negative, Obturator sign is negative, Psoas sign is negative, Liver: no appreciated palpable abnormalities, Hernia: not appreciated. Vital Signs: 05:15 BP 147 / 62; Pulse 82; Resp 20; Temp 98.5(O); Pulse Ox 95% on R/A; cc4 05:16 BP 103 / 81; Pulse 85; Resp 18; Temp 98.5; Pulse Ox 97% on R/A; Weight 58.97 kg; Height wg 5 ft. 0 in. (152.40 cm); Pain 6/10; 06:00 BP 160 / 62; Pulse 78; Resp 18; Pulse Ox 96% ; cc4 08:46 BP 129 / 57; Pulse 74; Resp 16; Temp 98.4; Pulse Ox 94% ; jt3 05:16 Body Mass Index 25.39 (58.97 kg, 152.40 cm) MDM: 08:19 Differential diagnosis: Nonspecific abd pain, gastritis, viral gastroenteritis, ma2 gastroenteritis. Data reviewed: vital signs, nurses notes, EMS record. Counseling: I had a detailed discussion with the patient and/or guardian regarding: the historical points, exam findings, and any diagnostic results supporting the discharge/admit diagnosis, the presence of at least one elevated blood pressure reading (>120/80) during this emergency department visit, the need for outpatient follow up. Response to treatment: the patient's symptoms have markedly improved after treatment. 08:22 ED course: I saw this patient as a sign out from Dr. Shields. Patient is day 3 postop ma2 had ventral hernia repair. Here with intractable nausea vomiting, MAURICIO, vital signs within normal limits, CT shows intra-abdominal air possibly postop, mildly increased air compared to usual postop state. There is air-fluid level as well. I discussed with Dr. Ahumada. Dr. Ahumada advised that he will call Dr. Wagner to see the patient. We will admit this patient to hospitalist.. 08:28 Patient medically screened. ma2 03/05 05:26 Order name: Basic Metabolic Panel; Complete Time: 06:33 7 03/05 05:26 Order name: CBC with Diff [facility] 03/05 05:26 Order name: Hepatic Function; Complete Time: 06:33 7 03/05 05:26 Order name: Lipase; Complete Time: 06:33 7 03/05 06:59 Order name: Lactate [facility] 03/05 08:30 Order name: Urine Dipstick-Ancillary [facility] 03/05 06:43 Order name: CT Abd/Pelvis - Without Contrast; Complete Time: 08:00 7 03/05 08:49 Order name: CBC Smear Scan [facility] 03/05 08:59 Order name: SARS-COV-2 RT PCR [facility] 03/05 09:19 Order name: Comprehensive Metabolic Panel [facility] 03/05 09:19 Order name: Comprehensive Metabolic Panel [facility] 03/05 09:19 Order name: Magnesium [facility] 03/05 09:19 Order name: Magnesium [facility] 03/05 05:26 Order name: IV Saline Lock; Complete Time: 05:46 7 03/05 05:26 Order name: Labs collected and sent; Complete Time: 05:46 7 03/05 05:30 Order name: EKG; Complete Time: 05:30 [facility] 03/05 05:30 Order name: EKG - Nurse/Tech; Complete Time: 05:46 7 03/05 09:19 Order name: CONS Physician Consult [facility] 03/05 09:19 Order name: NPO [facility] Administered Medications: 05:50 Drug: NS 0.9% 1000 ml Route: IV; Rate: 1000 ml; Site: right forearm; cc4 06:50 Follow up: IV Status: Completed infusion; IV Intake: 1000ml cc4 05:50 Drug: morphine 2 mg Route: IVP; Site: right forearm; cc4 05:50 Drug: Zofran (Ondansetron) 4 mg Route: IVP; Site: right forearm; cc4 05:50 Drug: Pepcid (famotidine) 20 mg Route: IVP; Site: right forearm; cc4 07:34 Drug: Phenergan (promethazine) 25 mg Route: IVP; Site: right antecubital; ch5 08:23 Drug: Rocephin (cefTRIAXone) 1 grams Route: IV; Rate: calculated rate; Site: right jt3 antecubital; 08:23 Drug: NS 0.9% 1000 ml Route: IV; Rate: 125 ml/hr; Site: right antecubital; jt3 08:44 Drug: Flagyl (metroNIDAZOLE) 500 mg Volume: 100 ml; Route: IVPB; Rate: 200 ml/hr; jt3 Infused Over: 30 mins; Site: right forearm; Disposition Summary: 03/05/21 08:28 Hospitalization Ordered Hospitalization Status: Observation ma2 Provider: Tim Canales Condition: Stable ma2 Problem: new ma2 Symptoms: are unchanged ma2 Bed/Room Type: Standard ma2 Location: Telemetry/MedSurg (observation)(03/05/21 11:14) eb Room Assignment: [facility](03/05/21 11:14) eb Diagnosis - Dehydration ma2 - Acute kidney failure, unspecified ma2 - Vomiting ma2 Forms: - Medication Reconciliation Form ma2 - SBAR form ma2 Signatures: Dispatcher [employer] Malathi Alston RN RN iw Alzahri, Mohammad, MD MD ok2 Mabel Santana Maurice, MD MD mh7 Chadd De La Rosa RN RN ch5 Macario Hylton RN Kyara Spence RN RN cc4 Pavel Bennett RN RN jt3 Corrections: (The following items were deleted from the chart) 08:59 08:40 CORONAVIRUS+MRJonLAB.BRZ ordered. EDMS EDMS 10:08 08:28 Telemetry/MedSurg (Inpatient) ma2 iw 10:08 08:28 ma2 iw 11:14 10:08 [facility] ER HOLD iw eb 11:14 10:08 ERHOLD- eb
--- NOTE | 2021-03-05 08:29 | ER ---
Nurse's Notes [facility] Name: Ekta Allison Age: 75 yrs Sex: Female : 1945 Arrival Date: 03/05/2021 Time: 04:56 Bed 23 Private MD: Diagnosis: Dehydration;Acute kidney failure, unspecified;Vomiting Presentation: 03/05 05:16 Chief complaint: Patient states: States she had abdominal wall surgery on Sun and has wg been having N/V since. Pt states she is voiding but concerned she is vomiting too much. Pt c/o abd pain. Dressing just below sternum clean, dry and intact. Coronavirus screen: Vaccine status: Patient reports receiving the 2nd dose of the covid vaccine. Date October 2020 Client denies travel out of the [place] in the last 14 days. Ebola Screen: Patient negative for fever greater than or equal to 101.5 degrees Fahrenheit, and additional compatible Ebola Virus Disease symptoms Patient denies exposure to infectious person. Patient denies travel to an Ebola-affected area in the 21 days before illness onset. No symptoms or risks identified at this time. Initial Sepsis Screen: Does the patient meet any 2 criteria? No. Patient's initial sepsis screen is negative. Does the patient have a suspected source of infection? No. Patient's initial sepsis screen is negative. Risk Assessment: Do you want to hurt yourself or someone else? Patient reports no desire to harm self or others. Onset of symptoms was March 02, 2021. 05:16 Method Of Arrival: Ambulatory 05:16 Acuity: VINEET 3 wg Triage Assessment: 05:19 General: Appears uncomfortable, well groomed, well developed, Behavior is calm, wg cooperative, appropriate for age. Pain: Complains of pain in upper mid abdomen Pain currently is 6 out of 10 on a pain scale. Quality of pain is described as aching. Cardiovascular: No deficits noted. Respiratory: No deficits noted. GI: Reports nausea, vomiting, Patient currently denies bloody stool, diarrhea. Historical: - Allergies: 05:19 Iodinated Contrast Media - IV Dye; wg 05:19 Vicodin; wg - Home Meds: 05:19 "cannot remember" [Active]; wg - PMHx: 05:19 High Cholesterol; Hypertension; Pacemaker; wg - Immunization history:: Adult Immunizations up to date. - Social history:: Smoking status: Patient denies any tobacco usage or history of. Screenin:15 Abuse screen: Denies threats or abuse. Nutritional screening: No deficits noted. cc4 Tuberculosis screening: No symptoms or risk factors identified. Fall Risk None identified. Assessment: 05:15 General: Appears uncomfortable, Behavior is calm, cooperative. Pain: Complains of pain cc4 in abdomen Pain does not radiate. Pain currently is 4 out of 10 on a pain scale. Quality of pain is described as tender, Sore; Pain began Sunday03/03/2021 Is continuous. Neuro: No deficits noted. Level of Consciousness is awake, alert, obeys commands, Oriented to person, place, time, situation. Cardiovascular: No deficits noted. Rhythm is sinus rhythm. Respiratory: No deficits noted. Airway is patent Breath sounds are clear bilaterally. GI: No deficits noted. Abdomen is non-distended, Post-op surgical dressing CDI to umbilicus area with no drainage noted. Bowel sounds present X 4 quads. hypoactive in right upper quadrant, left upper quadrant, right lower quadrant and left lower quadrant. GI:. : No signs and/or symptoms were reported regarding the genitourinary system. EENT: No signs and/or symptoms were reported regarding the EENT system. Derm: Dressing CDI to umbilicus surgical incision. Musculoskeletal: No deficits noted. Capillary refill < 3 seconds, Range of motion: intact in all extremities. 05:15 General: Alyson Aly in to see.. cc4 05:40 Reassessment: No changes from previously documented assessment. # 22 g saline lock cc4 inserted right FA x 1 attempt per SHIRA Mcneil tech,jermaine. well with blood collected \\T\\ sent to lab;. 05:50 Reassessment: No changes from previously documented assessment. CM applied \\T\\ monitoring cc4 SR with no ectopy; EKG done; IVF NS hung to saline lock right RA \\T\\ infusing \\T\\ bolus rate with no infiltration noted; medications given as ordered, jermaine. well; \\T\\ bedside; no vomiting noted. 06:50 Reassessment: Patient appears in no apparent distress at this time. awakened from cc4 sleep; reports complete relief of abdominal pain \\T\\ nausea. 07:30 Reassessment: RN coming onto shift obtained urine sample from patient. Pt. alert and jt3 oriented x4. Assisted patient to the bathroom. VSS. Pt. began vomiting once she returned from the bathroom. RN Jt spoke with Supervising Doctor Valdo. Order was put in for Phenergan, which Jt administered. . 07:45 Injury Description: Patient's hernia repair dressing above the umbilicus is clean, dry, jt3 and intact. No oozing or draining. Pt. denies pain or tenderness at the site. 08:30 Reassessment: Patient is drowsy per . RN went into the room and patient appears jt3 more drowsy after Phenergan was given by another RN in zone. Patient is arousable. VSS. Will continue to re-assess patient. . Vital Signs: 05:15 BP 147 / 62; Pulse 82; Resp 20; Temp 98.5(O); Pulse Ox 95% on R/A; cc4 05:16 BP 103 / 81; Pulse 85; Resp 18; Temp 98.5; Pulse Ox 97% on R/A; Weight 58.97 kg; Height 5 ft. 0 in. (152.40 cm); Pain 6/10; 06:00 BP 160 / 62; Pulse 78; Resp 18; Pulse Ox 96% ; cc4 08:46 BP 129 / 57; Pulse 74; Resp 16; Temp 98.4; Pulse Ox 94% ; jt3 05:16 Body Mass Index 25.39 (58.97 kg, 152.40 cm) ED Course: 04:56 Patient arrived in ED. 05:15 Patient has correct armband on for positive identification. Bed in low position. Call cc4 light in reach. Side rails up X 1. 05:16 Juanjose Shields MD is Attending Physician. 7 05:19 Triage completed. 05:19 Arm band placed on right wrist. 05:30 Kyara Spence, MAGNO is Primary Nurse. cc4 05:44 Inserted saline lock: 22 gauge in right forearm, using aseptic technique. Blood ds4 collected. Missed attempt(s): 20 gauge in right antecubital area. Bleeding controlled, band aid applied, catheter tip intact. 06:04 Basic Metabolic Panel Sent. cc4 06:04 CBC with Diff Sent. cc4 06:04 Hepatic Function Sent. cc4 06:04 Lipase Sent. cc4 06:30 Notified ED physician of a critical lab result(s). ALT of 344 Dr Shields notified. bb 07:08 CT Abd/Pelvis - Without Contrast In Process Unspecified. EDMS 07:25 Attending Physician role handed off by Juanjose Shields MD ma2 07:25 Tim Lyle MD is Attending Physician. ma2 08:28 Tim Canales MD is Hospitalizing Provider. ma2 08:45 Primary Nurse role handed off by Kyara Spence RN jt3 08:45 Pavel Bennett RN is Primary Nurse. jt3 09:21 SARS-COV-2 RT PCR Sent. mh5 Administered Medications: 05:50 Drug: NS 0.9% 1000 ml Route: IV; Rate: 1000 ml; Site: right forearm; cc4 06:50 Follow up: IV Status: Completed infusion; IV Intake: 1000ml cc4 05:50 Drug: morphine 2 mg Route: IVP; Site: right forearm; cc4 05:50 Drug: Zofran (Ondansetron) 4 mg Route: IVP; Site: right forearm; cc4 05:50 Drug: Pepcid (famotidine) 20 mg Route: IVP; Site: right forearm; cc4 07:34 Drug: Phenergan (promethazine) 25 mg Route: IVP; Site: right antecubital; ch5 08:23 Drug: Rocephin (cefTRIAXone) 1 grams Route: IV; Rate: calculated rate; Site: right jt3 antecubital; 08:23 Drug: NS 0.9% 1000 ml Route: IV; Rate: 125 ml/hr; Site: right antecubital; jt3 08:44 Drug: Flagyl (metroNIDAZOLE) 500 mg Volume: 100 ml; Route: IVPB; Rate: 200 ml/hr; jt3 Infused Over: 30 mins; Site: right forearm; Intake: 06:50 IV: 1000ml; Total: 1000ml. cc4 Outcome: 08:28 Decision to Hospitalize by Provider. ma2 11:40 Patient left the ED. eb Signatures: Dispatcher [employer] EDMS Yolanda Miles RN RN bb Swanson, Donovan Sybil Yuan Tim Vivas MD MD wa2 Mabel Santana Maurice, MD MD mh7 Stefania Bui Christopher, RN RN ch5 Macario Hylton, MAGNO Kyara Spence, MAGNO RN cc4 Cynthia Bundy RN RN 2 Pavel Bennett RN RN jt3 Corrections: (The following items were deleted from the chart) 08:05 07:41 Reassessment: Patient verbalized pain 7 of 10 post 1st dose of morphine, states sl2 epigastric pain that radiates across her chest, MD notified, 2nd dose of morphine to be administered. [facility] 08: 07:45 Reassessment: Patient being prepared for transport to radiology dept for CAT 2 scan, patient states however that she does not want to have CAT scan with contrast because she does not like the way it makes her feel, EDAna Sierra, P.A. present at bedside for patient re-assessment and update on plan of care - patient educated on the necessity of CT with contrast as a diagnostic tool, she verbalized understanding and agreement of same. [facility] 08: 07:[address] [place] wheelchair. [place] [id number] 08: 07:54 Awaiting: CAT scan completed - patient has been returned to the unit [place] [id number] 08: 07:14 BP 148 / 65; Pulse 95bpm; Resp 20bpm; Temp 98.6F; [place] [id number] 08:06 07:37 BP 179 / 73; Pulse 98bpm; Resp 22bpm; Pulse Ox 98%; 2 2
[2021-03-05 08:31] LABS: Urine Blood 1+ (Negative); Urine Glucose Negative (Negative); Urine Protein 1+ (Negative)
[2021-03-05 08:49] LABS: Platelet Estimate ADEQ; White Blood Cell Scan OK (OK)
[2021-03-05 08:50] LABS: Blood Morphology Comment NOT SEEN (NOT SEEN)
[2021-03-05] MEDS ORDERED: METRONIDAZOLE 500mg IVPB 500 MG/100 ML BAG IV ONE (09:01)
[2021-03-05] MEDS: Ringers Lactate 1,000 ML IV SCH ×2 (11:00→20:42)
[2021-03-05] MEDS: Levofloxacin500mg IV 500 MG/100 ML BAG IV SCH (11:01)
[2021-03-05] MEDS ORDERED: Levofloxacin500mg IV 500 MG/100 ML BAG IV ONE (11:16)
[2021-03-05] MEDS ORDERED: Ringers Lactate 1,000 ML IV ONE (11:16)
[2021-03-05 11:49] VITALS: O2SAT 94
[2021-03-05] MEDS ORDERED: METRONIDAZOLE 500mg IVPB 500 MG/100 ML BAG IV SCH (12:00)
[2021-03-05 13:19] VITALS: BMI 25.4
[2021-03-05] MEDS: HYDROMORPHONE HCL 1 MG/ML INJ IV PRN ×3 (13:22→22:06)
[2021-03-05] MEDS ORDERED: MINERAL OIL 30 ML UCUP PO ONE (17:17)
[2021-03-05] MEDS: METRONIDAZOLE 500mg IVPB 500 MG/100 ML BAG IV SCH (17:46)
--- NOTE | 2021-03-05 17:48 | P.CNS ---
Date of Consult: 03/05/21 PC: I was asked to see this 75-year-old female for one of my colleagues who operated her on Sunday and she has been admitted for abdominal pain. HPC: Patient's main complaint is actually nausea. She states that since she has been at home she has felt sick to her stomach. Every time she tries to eat or drink something, it just makes her nauseous. She has not had any bowel movements since the time of surgery, and is just now starting to feel her stomach make noises. PSHx: Patient has had numerous surgeries. She underwent a hernia repair on Sunday. There was limited exploration at the time due to the amount adhesions that the patient had. PMHx: Unchanged since her recent admission Social Hx: Allergies to codeine and hydrocodone noted as well as oral contrast Sys R: No cough, wheeze, shortness of breath. No chest pain or palpitations. No leg pain or swelling. O/E: Awake alert vital signs are stable HEENT: Within normal limits Chest: Chest movement equal bilaterally Abd: Abdominal binder in place, when removed skin porfirio are clean, appropriate incisional tenderness, no redness erythema on abdominal wall [place]: Intact Data: CT scan does not show any big fluid collection, there is some free air noted consistent with having had a recent laparoscopy Impression: Clinically the patient appears to be stable. I am not concerned about a large leak at this time. Plan: I will give the patient some mineral oil tonight. Tomorrow we will encourage her to ambulate. She does not appear to be in crisis at this time.
[2021-03-05] MEDS: ONDANSETRON 4 MG/2 ML VIAL IV PRN (17:56)
[2021-03-06] MEDS: METRONIDAZOLE 500mg IVPB 500 MG/100 ML BAG IV SCH ×5 (00:35→23:58)
[2021-03-06] MEDS: HYDRALAZINE HCL 20 MG/ML VIAL IV PRN ×2 (03:27→17:39)
[2021-03-06] MEDS: HYDROMORPHONE HCL 1 MG/ML INJ IV PRN ×3 (03:29→18:51)
[2021-03-06] MEDS: ACETAMINOPHEN 500 MG TAB PO PRN (04:28)
[2021-03-06] MEDS: Ringers Lactate 1,000 ML IV SCH ×2 (05:14→16:00)
[2021-03-06] MEDS: ONDANSETRON 4 MG/2 ML VIAL IV PRN (05:14)
[2021-03-06 06:31] LABS: Protime INR 1.14
[2021-03-06 06:32] LABS: Absolute Lymphocytes (CBC) 0.6 K/uL (0.7-4.9); Basophils % 0.2 % (0-1.3); Lymphocytes % 3.6 % (15.3-44.8); MPV 9.3 fL (7.6-11.3); RBC Red Blood Cell Count 3.86 M/uL (3.86-4.86)
[2021-03-06 06:47] LABS: Albumin 2.3 g/dL (3.4-5.0); Bilirubin Total 0.6 mg/dL (0.2-1.0); Magnesium 2.1 mg/dL (1.8-2.4); Phosphorus 2.6 mg/dL (2.5-4.9); Potassium 3.5 mmol/L (3.5-5.1); Protein, Total 6.9 g/dL (6.4-8.2)
[2021-03-06] MEDS ORDERED: ENOXAPARIN 40 MG/0.4 ML SQ SCH (09:00)
[2021-03-06] MEDS ORDERED: KCL 20 MEQ/100 mL IVPB 20 MEQ/100 ML BAG IV SCH (09:00)
[2021-03-06] MEDS: Levofloxacin500mg IV 500 MG/100 ML BAG IV SCH (09:18)
--- NOTE | 2021-03-06 11:07 | P.HP ---
Certification for Inpatient Patient admitted to: Inpatient With expected LOS: >2 Midnights Patient will require the following post-hospital care: None Practitioner: I am a practitioner with admitting privileges, knowledge of patient current condition, hospital course, and medical plan of care. Services: Services provided to patient in accordance with Admission requirements found in Title 42 Section 412.3 of the Code of Federal Regulations Patient History Date of Service: 03/05/21 Reason for admission: Acute renal failure; leukocytosis; status post ventral hernia repair History of Present Illness: Patient is a 75-year-old female came to the hospital feeling dehydrated. She has been having intractable nausea and vomiting. She came to the emergency room for further evaluation. In the emergency room patient's workup revealed that she has some air in the abdomen. but she just recently had an exploratory laparotomy. Patient had a ventral hernia repair and the family wanted her mesh removed. However, there was a lot of scar tissue and decision was made to not proceed with removal. Patient will be admitted for evaluation and treatment of acute renal insufficiency. Patient does have a slightly elevated white blood cell count which we will monitor as well. Allergies codeine Allergy (Verified 03/02/21 09:46) Itching hydrocodone [From Vicodin] Allergy (Verified 03/02/21 09:46) Nausea/Vomiting Iodinated Contrast- Oral a Allergy (Uncoded 03/02/21 09:46) Anaphylaxis Home Medications: Amlodipine Besylate/Valsartan [Amlodipine-Valsartan 5-160 mg] 1 tab PO DAILY 08/06/19 Levothyroxine [Synthroid*] 25 mg PO DAILY 08/06/19 Pantoprazole [Protonix Tab*] 40 mg PO DAILY 08/06/19 Aspirin [Wanda Chewable] 81 mg PO DAILY 07/30/20 Cyclobenzaprine [Flexeril] 5 mg PO PRN PRN 07/30/20 Clonidine HCl [Clonidine HCl ER] 1 tab PO SEECOM PRN 03/01/21 Meloxicam 7.5 mg PO DAILY PRN 03/01/21 Primidone 50 mg PO BID 03/01/21 - Past Medical/Surgical History Has patient received pneumonia vaccine in the past: Yes Diabetic: No -: Hypertension -: Pacemaker (2009) -: Cardiac Dysrhythmia -: Cataract -: Hypothyroidism -: GERD -: Shoulder Tendinitis(gets shots) -: Colon cancer -: Explore Lap; organs -: Hernia Repair -: Esophageal varices - Family History Father Medical History: Cancer Notes: - Lung Cancer Mother Medical History: Heart disease Notes: - Stroke - Social History Smoking Status: Never smoker Alcohol use: No CD- Drugs: No Caffeine use: Yes Review of Systems 10-point ROS is otherwise unremarkable Physical Examination - Vital Signs Temperature: 96.8 F Blood Pressure: 128/59 Pulse: 72 Respirations: 18 Pulse Ox (%): 95 - Physical Exam General: Alert, In no apparent distress, Oriented x3 HEENT: Atraumatic, PERRLA, Mucous membr. moist/pink, EOMI, Sclerae nonicteric Neck: Supple, 2+ carotid pulse no bruit, No LAD, Without JVD or thyroid abnormality Respiratory: Clear to auscultation bilaterally, Normal air movement Cardiovascular: Regular rate/rhythm, Normal S1 S2 Gastrointestinal: Normal bowel sounds, No tenderness, Other ([place] are in place) Musculoskeletal: No clubbing, No swelling, No tenderness Integumentary: No rashes Neurological: Normal gait, Normal speech, Normal strength at 5/5 x4 extr, Normal tone, Normal affect Lymphatics: No axilla or inguinal lymphadenopathy Assessment & Plan - Problems (Diagnosis) (1) Intractable nausea and vomiting Current Visit: Yes Status: Acute (2) Status post repair of ventral hernia Current Visit: Yes Status: Acute (3) Acute renal insufficiency Current Visit: Yes Status: Acute (4) Leukocytosis Current Visit: Yes Status: Acute (5) Peritoneal cavity free air Current Visit: Yes Status: Acute (6) History of colon cancer Current Visit: No Status: Acute (7) History of permanent cardiac pacemaker placement Current Visit: No Status: Chronic (8) Hypertension Current Visit: No Status: Chronic - Plan Plan: 1. Repeat abdominal film in the morning 2. Monitor labs 3. Continue with antibiotics 4. Surgery consultation appreciated 5. Strict blood pressure control 6. GI and DVT prophylaxis Discharge Plan: Home Plan to discharge in: Greater than 2 days - Advance Directives Does patient have a Living Will: No Does patient have a Durable POA for Healthcare: No - Code Status/Comfort Care Code Status Assessed: Yes Code Status: Full Code Critical Care: No Time Spent Managing PTS Care (In Minutes): 40
--- NOTE | 2021-03-06 11:13 | P.PN ---
Subjective Date of Service: 03/06/21 Renal function is improving. Otherwise symptoms are stable. Abdomen distention is stable. X-rays are pending; anticipate discharge in a.m.. Review of Systems 10-point ROS is otherwise unremarkable Physical Examination - Vital Signs Temperature: 96.8 F Blood Pressure: 128/59 Pulse: 72 Respirations: 18 Pulse Ox (%): 95 - Physical Exam General: Alert, In no apparent distress, Oriented x3 HEENT: Atraumatic, PERRLA, EOMI Neck: Supple, JVD not distended Respiratory: Clear to auscultation bilaterally, Normal air movement Cardiovascular: Regular rate/rhythm, Normal S1 S2 Gastrointestinal: Normal bowel sounds, Soft and benign, No tenderness, Other ([place] are in place), Distended Musculoskeletal: No clubbing, No swelling, No tenderness Neurological: Normal speech, Normal tone, Normal affect Lymphatics: No axilla or inguinal lymphadenopathy - Studies Medications List Reviewed: Yes Assessment & Plan - Problems (Diagnosis) (1) Intractable nausea and vomiting Current Visit: Yes Status: Acute (2) Status post repair of ventral hernia Current Visit: Yes Status: Acute (3) Acute renal insufficiency Current Visit: Yes Status: Acute (4) Leukocytosis Current Visit: Yes Status: Acute (5) Peritoneal cavity free air Current Visit: Yes Status: Acute (6) History of colon cancer Current Visit: No Status: Acute (7) History of permanent cardiac pacemaker placement Current Visit: No Status: Chronic (8) Hypertension Current Visit: No Status: Chronic - Plan Plan: Continue with plan of care as mentioned below: 1. Abdominal films with no worsening free air noted. 2. Monitor labs 3. Continue with antibiotics 4. Surgery consultation appreciated 5. Strict blood pressure control 6. Plan is to get out of bed and ambulate today. If patient's renal function and white count improves then anticipate discharge in the morning 7. GI and DVT prophylaxis Discharge Plan: Home Plan to discharge in: Greater than 2 days - Advance Directives Does patient have a Living Will: No Does patient have a Durable POA for Healthcare: No - Code Status/Comfort Care Code Status: Full Code Critical Care: No Time Spent Managing PTS Care (In Minutes): 35
--- NOTE | 2021-03-06 11:24 | RAD REPORT ---
EXAM DESCRIPTION: RAD - Abdomen Acute Series - 03/06/2021 6:32 am CLINICAL HISTORY: KUB Abdominal pain COMPARISON: Chest Pa And Lat (2 Views) dated 03/01/2021; Chest Single View dated 12/11/2019; Chest Pa And Lat (2 Views) dated 08/26/2019; Chest Pa And Lat (2 Views) dated 08/07/2019; Abdomen Pelvis Wo C ontrast dated 03/05/2021 FINDINGS: The lungs are mildly underinflated but grossly clear. The heart is normal in size. Multi l ead pacer device is present. Multiple mildly prominent air filled bowel loops are seen in the abdomen. Moderate stool is seen in t he right colon. Cholecystectomy clips. Midline surgical clips evident. No pathologic calcifications. IMPRESSION: No acute finding is evident.
--- NOTE | 2021-03-06 18:45 | P.PN ---
Date of Service: 03/06/21 S: Patient is no specific complaints today, says he feels somewhat better than she did. Starting to have some rumbling in her tummy. Passing gas per rectum, still far no bowel movements. O: Vital signs are stable, abdomen is soft, not distended nor tympanic A: Continues to improve, encouraged to ambulate, but seems to be progressing with resolution of her postoperative ileus. P: Continue current therapy, encourage ambulation, encourage incentive spirometry.
[2021-03-07] MEDS: Ringers Lactate 1,000 ML IV SCH ×4 (01:12→23:59)
[2021-03-07 04:18] LABS: Absolute Lymphocytes (CBC) 0.6 K/uL (0.7-4.9); Basophils % 0.4 % (0-1.3); Hematocrit 34.1 % (36.0-45.0); Lymphocytes % 6.2 % (15.3-44.8); MPV 8.4 fL (7.6-11.3); RBC Red Blood Cell Count 3.78 M/uL (3.86-4.86)
[2021-03-07 04:31] LABS: Albumin 2.1 g/dL (3.4-5.0); Bilirubin Total 0.4 mg/dL (0.2-1.0); Magnesium 1.8 mg/dL (1.8-2.4); Potassium 3.6 mmol/L (3.5-5.1); Protein, Total 6.3 g/dL (6.4-8.2)
[2021-03-07] MEDS: METRONIDAZOLE 500mg IVPB 500 MG/100 ML BAG IV SCH ×4 (05:26→23:53)
[2021-03-07] MEDS ORDERED: SODIUM CHLORIDE 0.9% 10ML INJ IV PRN (06:47)
[2021-03-07] MEDS: HYDROMORPHONE HCL 1 MG/ML INJ IV PRN ×2 (07:30→12:52)
[2021-03-07] MEDS ORDERED: POTASSIUM CL SA 10 MEQ TAB PO ONE (09:00)
[2021-03-07] MEDS: PANTOPRAZOLE 40 MG INJ IVP SCH (09:06)
[2021-03-07] MEDS: ENOXAPARIN 30 MG/0.3 ML SQ SCH (09:06)
--- NOTE | 2021-03-07 09:23 | P.PN ---
Subjective Date of Service: 03/07/21 Chief Complaint: Acute renal failure; leukocytosis; status post ventral hernia repair Subjective: Other (Patient had some nausea this morning. Patient was on a full liquid diet. Patient reports passive gas. No bowel movement yet.) Physical Examination - Vital Signs Temperature: 97.7 F Blood Pressure: 173/74 Pulse: 77 Respirations: 16 Pulse Ox (%): 95 - Studies Medications List Reviewed: Yes Assessment & Plan Discharge Plan: Home Plan to discharge in: 48 Hours Physician Review Additional Text: COVID: negative CT scan: COMPARISON: CT ABD PELVIS W CONTRAST dated 11/28/2008bdomen Pelvis Wo Contrast dated 01/31/2021; Abdomen Pelvis Wo Contrast dated 07/08/2020; Stone Protocol dated 08/05/2019; Abdomen Pelvis Wo Contrast dated 07/03/2019 TECHNIQUE: CT of the abdomen and pelvis was performed. All CT scans are performed using dose optimization technique as appropriate and may include automated exposure control or mA/KV adjustment according to patient size. FINDINGS: Lower chest: Dependent atelectasis versus aspiration. This is mild. Pacemaker leads. Small hiatal hernia. Liver: No acute abnormality or suspicious lesions. Biliary: Cholecystectomy. Stomach: No significant focal abnormality. Duodenum: No significant focal abnormality. Pancreas: No significant abnormality. Spleen: No significant abnormality. Adrenal: No suspicious lesions. Kidney/ureter: No hydronephrosis. No renal calculi. Renal sinus cysts. Retroperitoneum: Surgical clips in the retroperitoneum in the right lower quadrant. Vascular: Atherosclerosis without aneurysm. Bowel: Large volume of stool in the cecum.. No bowel obstruction. Peritoneum: Mild free air is noted. Surgical changes from recent ventral hernia repair. Subjacent to the hernia repair. Most is gas but there is a small air- fluid level. This measures 7.3 cm x 2.4 cm in CC by AP dimension. Bladder: Grossly unremarkable. Reproductive: No adnexal masses. Hysterectomy. Bones: No acute fracture. Other: n/a IMPRESSION: Surgical changes from recent ventral hernia repair. Free air is present which is more than expected. In addition, there is a predominantly gas containing fluid collection subjacent to the repair. Though possibly postsurgical, a bowel perforation cannot be excluded. Acute abdominal series: COMPARISON: Chest Pa And Lat (2 Views) dated 03/01/2021; Chest Single View dated 12/11/2019; Chest Pa And Lat (2 Views) dated 08/26/2019; Chest Pa And Lat (2 Views) dated 08/07/2019; Abdomen Pelvis Wo Contrast dated 03/05/2021 FINDINGS: The lungs are mildly underinflated but grossly clear. The heart is normal in size. Multi lead pacer device is present. Multiple mildly prominent air filled bowel loops are seen in the abdomen. Moderate stool is seen in the right colon. Cholecystectomy clips. Midline surgical clips evident. No pathologic calcifications. IMPRESSION: No acute finding is evident. CXR: to be obtained. KUB: to be obtained. Physical Exam: GENERAL: The patient is a well-developed, well-nourished, in no apparent distres s. Alert and oriented x3. VITAL SIGNS: Reviewed HEENT:neck supple LUNGS: Clear to auscultation. No crackles or wheezes are heard. HEART: Regular rate and rhythm, no appreciable gallops, rubs, murmurs or extra heart sounds ABDOMEN: Soft, nontender, and nondistended. Positive bowel sounds. No hepatosplenomegaly was noted. EXTREMITIES: Without any cyanosis, clubbing, rash, lesions or peripheral edema. NEUROLOGIC: The patient is oriented to person, place and time. Strength and sensation are grossly intact. Face is symmetric. SKIN: Normal color, turgor and temperature. No ulcerations or rashes noted. Impression: Postoperative ileus with recent ventral hernia repair with noted free air adjacent to repair GERD with history of esophageal stricture and hiatal hernia Hypertension Hypothyroidism History of pacemaker Acute on chronic renal disease stage III with dehydration Elevated liver function Plan: Postoperative ileus with recent ventral hernia repair with noted free air adjacent to repair: Patient reports passage of gas. No bowel movement yet. Patient on full liquid diet. Hold diet at this time. Will check chest x-ray and KUB. Await surgical evaluation. Await recommendations from surgery. Encourage ambulation. Will provide incentive spirometer. Continue with IV Levaquin and Flagyl. GERD with history of esophageal stricture and hiatal hernia: Continue Protonix. Patient reports seen specialist in the past with dilation/stent Hypertension: Blood pressure stable off medication at this time. Continue to hold Norvasc/valsartan and clonidine. IV medication provided as needed Hypothyroidism: Restart levothyroxine 25 mcg daily History of pacemaker: Overall stable Acute on chronic renal disease stage III with dehydration: Continue with IV fluids. Will monitor renal function closely. Elevated liver function: This has improved with hydration. Monitor closely. Code Status: Full Code DVT prophylaxis: Lovenox Advanced Care Planning-30 minutes: Anticipate home in the next 48 hours. Time Spent Managing Pts Care (In Minutes): 55
--- NOTE | 2021-03-07 09:44 | RAD REPORT ---
EXAM DESCRIPTION: RAD - Abdomen 1 View (KUB) - 03/07/2021 7:03 am CLINICAL HISTORY: No BM, Recent Ventral hernia repair Pain COMPARISON: No comparisons FINDINGS: The bowel gas pattern is non-obstructive. No evidence of free air or pneumatosis. No suspi cious calcifications. Moderate stool retention in the colon. Midline surgical porfirio seen. Cholecystectomy clips seen. IMPRESSION: Moderate constipation.
[2021-03-07] MEDS: HYDRALAZINE HCL 20 MG/ML VIAL IV PRN (09:46)
[2021-03-07] MEDS: Levofloxacin500mg IV 500 MG/100 ML BAG IV SCH (09:46)
--- NOTE | 2021-03-07 09:48 | RAD REPORT ---
EXAM DESCRIPTION: RAD - Chest Single View - 03/07/2021 7:03 am CLINICAL HISTORY: cough Chest pain. COMPARISON: Abdomen 1 View (KUB) dated 03/07/2021; Abdomen Acute Series dated 03/06/2021; Chest Pa A nd Lat (2 Views) dated 03/01/2021; Chest Single View dated 12/11/2019 FINDINGS: Portable technique limits examination quality. The lungs are grossly clear. The heart is normal in size. No displaced fractures.Dual lead pacer hiral ce is present. IMPRESSION: No acute intrathoracic process suspected.
[2021-03-07] MEDS: LEVOTHYROXINE SOD 0.025 MG TAB PO SCH (10:00)
[2021-03-07] MEDS ORDERED: KCL 20 MEQ/100 mL IVPB 20 MEQ/100 ML BAG IV SCH (10:00)
[2021-03-07] MEDS: ONDANSETRON 4 MG/2 ML VIAL IV PRN (10:55)
[2021-03-07] MEDS ORDERED: HYDROMORPHONE HCL 0.5 MG/0.5 ML INJ IV PRN (13:09)
[2021-03-07] MEDS ORDERED: NA CHLORIDE 0.9% 250 ML ONE (14:08)
[2021-03-08] MEDS ORDERED: BENZONATATE 100 MG CAP PO PRN (00:30)
[2021-03-08] MEDS ORDERED: BENZONATATE 100 MG CAP PO ONE (01:06)
[2021-03-08] MEDS: HYDRALAZINE HCL 20 MG/ML VIAL IV PRN (04:34)
[2021-03-08] MEDS: METRONIDAZOLE 500mg IVPB 500 MG/100 ML BAG IV SCH (05:10)
[2021-03-08] MEDS: LEVOTHYROXINE SOD 0.025 MG TAB PO SCH (05:11)
[2021-03-08 06:18] LABS: Basophils % 0.7 % (0-1.3); Hematocrit 34.7 % (36.0-45.0); Lymphocytes % 11.1 % (15.3-44.8); MPV 8.4 fL (7.6-11.3); RBC Red Blood Cell Count 3.84 M/uL (3.86-4.86)
[2021-03-08 06:44] LABS: Albumin 2.1 g/dL (3.4-5.0); Bilirubin Total 0.4 mg/dL (0.2-1.0); Potassium 3.6 mmol/L (3.5-5.1); Protein, Total 6.1 g/dL (6.4-8.2)
[2021-03-08] MEDS: Ringers Lactate 1,000 ML IV SCH (08:00)
[2021-03-08] MEDS: PANTOPRAZOLE 40 MG INJ IVP SCH (08:10)
[2021-03-08] MEDS: ENOXAPARIN 30 MG/0.3 ML SQ SCH (08:10)
[2021-03-08 08:35] VITALS: TEMP 97.6
[2021-03-08 08:35] LABS: Blood Morphology Comment NOT SEEN (NOT SEEN); Platelet Estimate ADEQ; White Blood Cell Scan OK (OK)
[2021-03-08] MEDS ORDERED: POTASSIUM CL SA 10 MEQ TAB PO ONE (09:00)
[2021-03-08] MEDS: Levofloxacin500mg IV 500 MG/100 ML BAG IV SCH (10:00)
--- NOTE | 2021-03-08 10:20 | P.DS ---
Admission Date: 03/05/21 Discharge Date: 03/08/21 Primary Care Provider: unknown; Surgery-Dr. Ahumada Disposition: ROUTINE DISCHARGE Discharge Condition: GOOD Reason for Admission: Acute renal failure; leukocytosis; status post ventral hernia repair Consultations: Surgery-Dr. Ahumada Procedures: COVID: negative CT scan: COMPARISON: CT ABD PELVIS W CONTRAST dated 11/28/2008bdomen Pelvis Wo Contrast dated 01/31/2021; Abdomen Pelvis Wo Contrast dated 07/08/2020; Stone Protocol dated 08/05/2019; Abdomen Pelvis Wo Contrast dated 07/03/2019 TECHNIQUE: CT of the abdomen and pelvis was performed. All CT scans are performed using dose optimization technique as appropriate and may include automated exposure control or mA/KV adjustment according to patient size. FINDINGS: Lower chest: Dependent atelectasis versus aspiration. This is mild. Pacemaker leads. Small hiatal hernia. Liver: No acute abnormality or suspicious lesions. Biliary: Cholecystectomy. Stomach: No significant focal abnormality. Duodenum: No significant focal abnormality. Pancreas: No significant abnormality. Spleen: No significant abnormality. Adrenal: No suspicious lesions. Kidney/ureter: No hydronephrosis. No renal calculi. Renal sinus cysts. Retroperitoneum: Surgical clips in the retroperitoneum in the right lower quadrant. Vascular: Atherosclerosis without aneurysm. Bowel: Large volume of stool in the cecum.. No bowel obstruction. Peritoneum: Mild free air is noted. Surgical changes from recent ventral hernia repair. Subjacent to the hernia repair. Most is gas but there is a small air- fluid level. This measures 7.3 cm x 2.4 cm in CC by AP dimension. Bladder: Grossly unremarkable. Reproductive: No adnexal masses. Hysterectomy. Bones: No acute fracture. Other: n/a IMPRESSION: Surgical changes from recent ventral hernia repair. Free air is present which is more than expected. In addition, there is a predominantly gas containing fluid collection subjacent to the repair. Though possibly postsurgical, a bowel perforation cannot be excluded. Acute abdominal series: COMPARISON: Chest Pa And Lat (2 Views) dated 03/01/2021; Chest Single View dated 12/11/2019; Chest Pa And Lat (2 Views) dated 08/26/2019; Chest Pa And Lat (2 Views) dated 08/07/2019; Abdomen Pelvis Wo Contrast dated 03/05/2021 FINDINGS: The lungs are mildly underinflated but grossly clear. The heart is normal in size. Multi lead pacer device is present. Multiple mildly prominent air filled bowel loops are seen in the abdomen. Moderate stool is seen in the right colon. Cholecystectomy clips. Midline surgical clips evident. No pathologic calcifications. IMPRESSION: No acute finding is evident. CXR: COMPARISON: Abdomen 1 View (KUB) dated 03/07/2021; Abdomen Acute Series dated 03/06/2021; Chest Pa And Lat (2 Views) dated 03/01/2021; Chest Single View dated 12/11/2019 FINDINGS: Portable technique limits examination quality. The lungs are grossly clear. The heart is normal in size. No displaced fractures.Dual lead pacer device is present. IMPRESSION: No acute intrathoracic process suspected. KUB: COMPARISON: No comparisons FINDINGS: The bowel gas pattern is non-obstructive. No evidence of free air or pneumatosis. No suspicious calcifications. Moderate stool retention in the colon. Midline surgical porfirio seen. Cholecystectomy clips seen. IMPRESSION: Moderate constipation. Recent Outpatient Surgery: Date of Procedure: 03/02/2021 Surgeon: Sylvain Ahumada MD Preoperative Diagnoses: Tender ventral incisional hernia, chronic abdominal pain. Postoperative Diagnoses: Tender ventral incisional hernia, chronic abdominal pain plus intraabdominal adhesions. Procedures: Diagnostic laparoscopic assisted repair of tender ventral incisional hernia. Estimated Blood Loss: Less than 10 mL. Specimen: None. Medical Problem List: Postoperative ileus with recent diagnostic laparoscopic assisted repair of tender ventral incisional hernia GERD with history of esophageal stricture and hiatal hernia Hypertension Hypothyroidism History of pacemaker Acute on chronic renal disease stage III with dehydration Elevated liver function Essential tremors Brief History of Present Illness: 75-year-old female presented to the emergency room with nausea and vomiting. Patient had recent exploratory laparotomy with ventral hernia repair. Patient found to have postop ileus. Patient admitted for treatment. Hospital Course: Patient presented with nausea and vomiting. Patient found to have postoperative ileus. Patient with recent history of diagnostic laparoscopic assisted repair of tender ventral incisional hernia. Patient was admitted for treatment. In the course of her stay patient received IV fluids with IV antibiotic therapy. Her condition improved. No surgical intervention was required. Her diet was advanced appropriately. At discharge patient without significant abdominal pain. Patient had bowel movement. Patient able to tolerate soft diet. Patient was cleared for discharge by surgery. At discharge patient will continue with a soft diet. Patient will continue with Levaquin 250 mg daily and Flagyl 500 mg 3 times a day for 4 more days. Patient may take stool softener as needed. No heavy lifting, pushing or pulling is recommended. Recommend follow-up with surgery within 1 week to follow-up this hospitalization. Patient with history of GERD. Patient also reports history of esophageal stricture and hiatal hernia. At discharge patient will continue with Protonix 40 mg daily. Recommend follow-up with her GI specialist to further evaluate and address. Patient with history of hypertension. At discharge patient will continue with her medicationNorvasc/valsartan 5/160 mg daily. No need for clonidine at discharge. Recommend to maintain blood pressure less than 130/80. Further adjustment can be done by her PCP. Recommend follow-up with her PCP to further address. Patient with hypothyroidism. At discharge patient will continue with levothyroxine 25 mcg daily. Patient with history of pacemaker. Overall stable. Patient with acute on chronic renal disease stage III with dehydration. This improved with IV hydration. Recommend no further use of nonsteroidal anti- inflammatories. Future medications may need to be renally dosed. Recommend to recheck labBMP to monitor progress. This can be further monitored as an outpatient by her PCP. Patient with elevated liver function likely related to above. Overall improved. This can be followed up as an outpatient. Recommend to recheck labCMP to monitor resolution. At discharge recommend to discontinue Mobic due to her chronic renal disease. Recommend to discontinue Flexeril. Patient also takes primidone 50 mg 1 pill twice daily likely for underlying tremors. Patient may continue with her medication. Vital Signs/Physical Exam: Temp Pulse Resp BP Pulse Ox 97.6 F 78 14 174/74 H 94 03/08/21 08:00 03/08/21 08:00 03/08/21 08:00 03/08/21 08:00 03/08/21 08:00 General: Alert, In no apparent distress, Oriented x3, Cooperative HEENT: Atraumatic Neck: Supple Respiratory: Clear to auscultation bilaterally, Normal air movement Cardiovascular: Normal pulses, Regular rate/rhythm Gastrointestinal: Normal bowel sounds, No ascites, No tenderness, No masses, No rebound, No guarding Musculoskeletal: No erythema, No tenderness, No warmth Integumentary: No tenderness/swelling Neurological: Normal speech, Normal strength at 5/5 x4 extr, Normal tone Laboratory Data at Discharge: WBC 9.30 K/uL (4.3-10.9) 03/08/21 06:08 Hgb 11.8 g/dL (12.0-15.0) L 03/08/21 06:08 Hct 34.7 % (36.0-45.0) L 03/08/21 06:08 Plt Count 226 K/uL (152-406) 03/08/21 06:08 PT 13.1 SECONDS (9.5-12.5) H 03/06/21 05:40 INR 1.14 03/06/21 05:40 APTT 32.4 SECONDS (24.3-36.9) 03/06/21 05:40 Sodium 143 mmol/L (136-145) 03/08/21 06:08 Potassium 3.6 mmol/L (3.5-5.1) 03/08/21 06:08 BUN 22 mg/dL (7-18) H 03/08/21 06:08 Creatinine 1.05 mg/dL (0.55-1.3) 03/08/21 06:08 Glucose 138 mg/dL (74-106) H 03/08/21 06:08 Phosphorus 2.6 mg/dL (2.5-4.9) 03/06/21 05:40 Magnesium 1.8 mg/dL (1.8-2.4) 03/07/21 04:03 Total Bilirubin 0.4 mg/dL (0.2-1.0) 03/08/21 06:08 AST 14 U/L (15-37) L 03/08/21 06:08 ALT 95 U/L (12-78) H 03/08/21 06:08 Alkaline Phosphatase 132 U/L (45-117) H 03/08/21 06:08 Lipase 45 U/L (73-393) L 03/05/21 05:44 Home Medications: Amlodipine Besylate/Valsartan [Amlodipine-Valsartan 5-160 mg] 1 tab PO DAILY 08/06/19 Levothyroxine [Synthroid*] 25 mg PO DAILY 08/06/19 Aspirin [Wanda Chewable Aspirin] 81 mg PO DAILY 07/30/20 Primidone 50 mg PO BID 03/01/21 Pantoprazole [Protonix Tab*] 40 mg PO DAILY #30 tab 03/08/21 levoFLOXacin [Levaquin] 250 mg PO DAILY #4 tab 03/08/21 metroNIDAZOLE [Flagyl] 500 mg PO Q8H #12 tablet 03/08/21 New Medications: metroNIDAZOLE [Flagyl] 500 mg PO Q8H #12 tablet levoFLOXacin [Levaquin] 250 mg PO DAILY #4 tab Pantoprazole [Protonix Tab*] 40 mg PO DAILY #30 tab Physician Discharge Instructions: Patient presented with nausea and vomiting. Patient found to have postoperative ileus. Patient with recent history of diagnostic laparoscopic assisted repair of tender ventral incisional hernia. Patient was admitted for treatment. In the course of her stay patient received IV fluids with IV antibiotic therapy. Her condition improved. No surgical intervention was required. Her diet was advanced appropriately. At discharge patient without significant abdominal pain. Patient had bowel movement. Patient able to tolerate soft diet. Patient was cleared for discharge by surgery. At discharge patient will continue with a soft diet. Patient will continue with Levaquin 250 mg daily and Flagyl 500 mg 3 times a day for 4 more days. Patient may take stool softener as needed. No heavy lifting, pushing or pulling is recommended. Recommend follow-up with surgery within 1 week to follow-up this hospitalization. Patient with history of GERD. Patient also reports history of esophageal stricture and hiatal hernia. At discharge patient will continue with Protonix 40 mg daily. Recommend follow-up with her GI specialist to further evaluate and address. Patient with history of hypertension. At discharge patient will continue with her medicationNorvasc/valsartan 5/160 mg daily. No need for clonidine at discharge. Recommend to maintain blood pressure less than 130/80. Further adjustment can be done by her PCP. Recommend follow-up with her PCP to further address. Patient with hypothyroidism. At discharge patient will continue with levothyroxine 25 mcg daily. Patient with history of pacemaker. Overall stable. Patient with acute on chronic renal disease stage III with dehydration. This improved with IV hydration. Recommend no further use of nonsteroidal anti- inflammatories. Future medications may need to be renally dosed. Recommend to recheck labBMP to monitor progress. This can be further monitored as an outpatient by her PCP. Patient with elevated liver function likely related to above. Overall improved. This can be followed up as an outpatient. Recommend to recheck labCMP to monitor resolution. At discharge recommend to discontinue Mobic due to her chronic renal disease. Recommend to discontinue Flexeril. Patient also takes primidone 50 mg 1 pill twice daily likely for underlying tremors. Patient may continue with her medication. Diet: AHA Activity: No lifting more than 10 lbs Followup: NONE,NONE [Primary Care Provider] - Time spent managing pt's care (in minutes): 55
[2021-03-08] MEDS: ACETAMINOPHEN 500 MG TAB PO PRN (10:54)
[2021-03-08 17:04] VITALS: BP 151/66
== END 2021-03-08 10:57 | disposition home or self-care (01) | DRG 394 ==
LOC: ER 04:52 → ERHOLD 10:02 → 2ND 11:34
PROVIDERS: ADMIT Hospitalist; ATTEND Family Medicine
DX: K91.89 Other postprocedural complications and disorders of digestive system (principal); K56.7 Ileus, unspecified; E86.0 Dehydration; K21.9 Gastro-esophageal reflux disease without esophagitis; D72.829 Elevated white blood cell count, unspecified; N28.9 Disorder of kidney and ureter, unspecified; G25.0 Essential tremor; I12.9 Hypertensive chronic kidney disease with stage 1 through stage 4 chronic kidney disease, or unspecified chronic kidney disease; N18.30 Chronic kidney disease, stage 3 unspecified; E03.9 Hypothyroidism, unspecified; R94.5 Abnormal results of liver function studies; Z91.041 Radiographic dye allergy status; Z88.5 Allergy status to narcotic agent; Z95.0 Presence of cardiac pacemaker; Z79.890 Hormone replacement therapy; Z79.82 Long term (current) use of aspirin; Z79.899 Other long term (current) drug therapy; Z85.038 Personal history of other malignant neoplasm of large intestine; Z20.822 Contact with and (suspected) exposure to COVID-19
CPT/HCPCS: 36415; 71045; 71046; 74018; 74022; 74176; 80048; 80053; 80076; 81003; 83605; 83690; 83735; 84100; 85025; 85610; 85730; 93005; 94010; 99284; C9113; J0330; J0360; J0690; J1170; J1650; J2250; J2270; J2405; J2550; J2704; J2710; J3010; J3480; J7030; J7050; J7120; U0003

== ENCOUNTER 2021-03-11 13:04 | Emergency (ER) | payer OTHER ==
--- NOTE | 2021-03-11 14:21 | RAD REPORT ---
EXAM DESCRIPTION: CT - Abdomen Pelvis Wo Contrast - 03/11/2021 1:53 pm CLINICAL HISTORY: post surgical swelling History indicates infection at the hernia repair site performed 9 days earlier. Patient has history o f prior hysterectomy appendectomy, cholecystectomy and prior colon cancer COMPARISON: Abdomen Pelvis Wo Contrast dated 03/05/2021 TECHNIQUE: Axial [address] imaging of the abdomen and pelvis was performed without IV contrast. No IV contrast was given because of allergy, abnormal renal function, patient refusal or physician re quest. No oral contrast administered. All CT scans are performed using dose optimization technique as appropriate and may include automated exposure control or mA/KV adjustment according to patient size. FINDINGS: Scarring and/ or atelectasis is present in each posterior gutter with trace amount of pleu ral fluid on the right. This is a stable presentation. Minimal pericardial thickening has not changed . No cardiomegaly. The liver, spleen and pancreas show no suspicious findings on non-contrast imaging. Cholecystectomy c lips are present. No biliary tree dilatation. No hydronephrosis or suspicious renal mass. No significant adrenal finding. Isodense renal masses an d pyelonephritis cannot be excluded in the absence of IV contrast. The urinary bladder is without sig nificant finding. Uterus is absent. Ovaries are absent or atrophic. Pelvic floor laxity is evident. S urgical clips are seen in the lower lateral right pelvis. Small hiatal hernia is present. No acute gastric finding. Small bowel loops are not dilated. No colon dilatation or wall thickening. Patient has little if any identifiable diverticulosis. No acute bowel finding identifiable. Postsurgical changes are present to the supraumbilical skin and subcutaneous fatty tissues. Skin stap les are in place. Stranding extends from the skin surface down to the anterior abdominal wall. Severa l air densities are present in the deep subcutaneous fatty tissue is at the abdominal wall. Small gemma unt of fluid and air is seen in the midline abdominal wall and in the peritoneal soft tissues immedia tely deep to the surgical site. Multiple small bowel loops are present abutting abdominal wall. There is no abscess or drainable fluid collection. No mass or bulky lymphadenopathy. No suspicious bony findings. IMPRESSION: Air and soft tissue stranding changes are present in the supraumbilical subcutaneous fat ty tissues, midline abdominal wall and the intraperitoneal soft tissues immediately deep to the abdom inal wall. The soft tissue changes are not unexpected given the recent surgery. There is no drainable abscess or abnormal fluid collection at this time. Full assessment is limited is the absence of IV contrast.
[2021-03-11 14:51] LABS: Absolute Lymphocytes (CBC) 1.8 K/uL (0.7-4.9); Hematocrit 38.8 % (36.0-45.0); Lymphocytes % 16.9 % (15.3-44.8); MPV 8.1 fL (7.6-11.3); RBC Red Blood Cell Count 4.23 M/uL (3.86-4.86)
[2021-03-11 15:00] LABS: Albumin 2.9 g/dL (3.4-5.0); Bilirubin Total 0.3 mg/dL (0.2-1.0); Potassium 3.7 mmol/L (3.5-5.1); Protein, Total 7.8 g/dL (6.4-8.2)
[2021-03-11] MEDS ORDERED: MORPHINE 2 MG/ML SYR ONE (15:05)
[2021-03-11] MEDS ORDERED: ONDANSETRON 4 MG/2 ML VIAL ONE (15:05)
--- NOTE | 2021-03-11 16:11 | EDPHYS ---
Physician Documentation [facility] Name: Ekta Allison Age: 75 yrs Sex: Female : 1945 Arrival Date: 03/11/2021 Time: 13:05 Bed 14 Private MD: Madison Campoverde ED Physician Tim Lyle HPI: 03/11 13:26 This 75 yrs old Female presents to ER via Ambulatory with complaints of jmm surgical site problem/infection. 13:26 The patient has porfirio on the abdomen. Is a 75-year-old female with history of jmm hyperlipidemia, hypertension the presents emerge department status post a surgical procedure approximately 9 days ago. Noticed redness and swelling with some drainage earlier today. Denies fever or chills.. Historical: - Allergies: 13:20 Iodinated Contrast Media - IV Dye; ll1 13:20 Vicodin; ll1 - PMHx: 13:20 High Cholesterol; Hypertension; Pacemaker; ll1 - Immunization history:: Client reports receiving the 2nd dose of the Covid vaccine. - Social history:: Smoking status: Patient denies any tobacco usage or history of. ROS: 13:26 Constitutional: Negative for fever, chills, and weight loss, Cardiovascular: Negative jmm for chest pain, palpitations, and edema, Respiratory: Negative for shortness of breath, cough, wheezing, and pleuritic chest pain. 13:26 Skin: Positive for laceration(s). 13:26 All other systems are negative. Exam: 13:26 Constitutional: This is a well developed, well nourished patient who is awake, alert, jmm and in no acute distress. Head/Face: atraumatic. Eyes: EOMI, no conjunctival erythema appreciated ENT: Moist Mucus Membranes Neck: Trachea midline, Supple Chest/axilla: Normal chest wall appearance and motion. Cardiovascular: Regular rate and rhythm. No edema appreciated Respiratory: Normal respirations, no respiratory distress appreciated Abdomen/GI: Non distended, soft Back: Normal ROM 13:26 Skin: Erythema noted at the incision site, mildly tender to palpation. 13:26 Neuro: Orientation: is normal, Mentation: is normal, Memory: is normal. 13:26 Psych: Behavior/mood is pleasant, cooperative. Vital Signs: 13:21 BP 151 / 64; Pulse 87; Resp 18; Temp 97.6; Pulse Ox 99% ; Weight 58.97 kg; Height 5 ft. ll1 0 in. (152.40 cm); Pain 0/10; 16:27 BP 151 / 74; Pulse 79; Resp 17; Pulse Ox 98% on R/A; jt3 13:21 Body Mass Index 25.39 (58.97 kg, 152.40 cm) ll1 MDM: 13:26 Patient medically screened. [facility] 16:08 Data reviewed: vital signs, nurses notes. Counseling: I had a detailed discussion with [facility] the patient and/or guardian regarding: the historical points, exam findings, and any diagnostic results supporting the discharge/admit diagnosis, lab results, radiology results, the need for outpatient follow up, to return to the emergency department if symptoms worsen or persist or if there are any questions or concerns that arise at home. ED course: I discussed the patient with Dr. Ahumada whom recommends prescribing oral antibiotics such as Bactrim or Cipro and discharging the patient for follow-up on Sunday in his clinic.. 03/11 13:27 Order name: CBC with Diff; Complete Time: 15:17 [facility] 03/11 13:27 Order name: CMP; Complete Time: 15:11 [facility] 03/11 13:27 Order name: CT Abd/Pelvis - Without Contrast; Complete Time: 14:21 [facility] 03/11 13:27 Order name: Saline Lock; Complete Time: 15:45 [facility] Administered Medications: 14:46 Drug: morphine 2 mg Route: IVP; Site: right antecubital; jt3 14:46 Drug: Zofran (Ondansetron) 4 mg Route: IVP; Site: right antecubital; jt3 16:27 Drug: Bactrim (trimethoprim-sulfamethoxazole) (160 mg-800 mg (DS) 1 tablet Route: PO; jt3 Disposition Summary: 03/11/21 16:10 Discharge Ordered Location: Home [facility] Condition: Stable [facility] Diagnosis - Abdominal postoperative wound evaluation, unspecified [facility] Followup: [facility] - With: Sylvain Ahumada MD - When: On Sunday - Reason: Recheck today's complaints, Continuance of care, Re-evaluation by your physician Discharge Instructions: - Discharge Summary Sheet [facility] - Wound Care, Adult [facility] Forms: - Medication Reconciliation Form [facility] - Thank You Letter [facility] - Antibiotic Education сергей - Prescription Opioid Use arthur Prescriptions: - Bactrim DS 800-160 mg Oral Tablet - take 1 tablet by ORAL route every 12 hours for 10 days; 20 tablet; Refills: 0, arthur Product Selection Permitted Addendum: 03/14/2021 22:59 Co-signature as Attending Physician, Tim Lyle MD. m a2 Signatures: Dispatcher [employer] EDMendoza Earl PA PA jmm Alzahri, Mohammad, MD MD ma2 Hayden Barclay RN RN ll1 Pavel Bennett RN RN jt3
--- NOTE | 2021-03-11 16:11 | ER ---
Nurse's Notes [facility] Name: Ekta Allison Age: 75 yrs Sex: Female : 1945 Arrival Date: 03/11/2021 Time: 13:05 Bed 14 Private MD: Madison Campoverde Diagnosis: Abdominal postoperative wound evaluation, unspecified Presentation: 03/11 13:21 Chief complaint: Patient states: [place] cold after her shower today. noticed pus ll1 draining from abdominal wound. Denies pain and fever. States she is actually feeling better today than usual. Came in for eval. Dr. Ahumada was her surgeon for ventral hernia repair. She followed up with him this week. They wanted to leave the clamps in until next Sunday. States she is taking her antibiotics as prescribed. Coronavirus screen: Vaccine status: Patient reports receiving the 2nd dose of the covid vaccine. Client denies travel out of the [place] in the last 14 days. At this time, the client does not indicate any symptoms associated with coronavirus-19. Ebola Screen: Patient denies travel to an Ebola-affected area in the 21 days before illness onset. Initial Sepsis Screen: Does the patient meet any 2 criteria? No. Patient's initial sepsis screen is negative. Does the patient have a suspected source of infection? Yes: Acute abdominal pain. Risk Assessment: Do you want to hurt yourself or someone else? Patient reports no desire to harm self or others. Onset of symptoms was March 11, 2021. 13:21 Method Of Arrival: Ambulatory ll1 13:21 Acuity: VINEET 3 ll1 Historical: - Allergies: 13:20 Iodinated Contrast Media - IV Dye; ll1 13:20 Vicodin; ll1 - PMHx: 13:20 High Cholesterol; Hypertension; Pacemaker; ll1 - Immunization history:: Client reports receiving the 2nd dose of the Covid vaccine. - Social history:: Smoking status: Patient denies any tobacco usage or history of. Screenin:29 Abuse screen: Denies threats or abuse. Denies injuries from another. Nutritional jt3 screening: No deficits noted. Tuberculosis screening: No symptoms or risk factors identified. Fall Risk None identified. Assessment: 13:29 Pain: Denies pain. Derm: Skin temperature is warm Wound noted abdomen Pt. has abdominal jt3 wound from prior hernia repair 9 days ago. Wound is stapled and oozing a white cream pus. Pt. is tender to touch at the site, but in no pain otherwise. Denies fever. Marija are intact. Vital Signs: 13:21 BP 151 / 64; Pulse 87; Resp 18; Temp 97.6; Pulse Ox 99% ; Weight 58.97 kg; Height 5 ft. ll1 0 in. (152.40 cm); Pain 0/10; 16:27 BP 151 / 74; Pulse 79; Resp 17; Pulse Ox 98% on R/A; jt3 13:21 Body Mass Index 25.39 (58.97 kg, 152.40 cm) ll1 ED Course: 13:05 Patient arrived in ED. am2 13:06 Madison Campoverde is Private Physician. am2 13:11 Pavel Bennett, RN is Primary Nurse. jt3 13:18 Mendoza Arenas PA is PHCP. [facility] 13:18 Tim Lyle MD is Attending Physician. jmm 13:20 Arm band placed on Patient placed in an exam room, on a stretcher. ll1 13:23 Triage completed. ll1 13:29 Patient has correct armband on for positive identification. Placed in gown. Bed in low jt3 position. Side rails up X2. 13:29 No provider procedures requiring assistance completed. jt3 13:52 CT Abd/Pelvis - Without Contrast In Process Unspecified. EDMS 14:12 Call light in reach. Adult w/ patient. Warm blanket given. monitor car operator on. Pulse ox dh4 on. NIBP on. 14:12 Missed attempt(s): 22 gauge in right forearm. dh4 14:38 Initial lab(s) drawn, by ks, sent to lab. Inserted saline lock: 24 gauge in right iw antecubital area, using aseptic technique. Blood collected. 16:10 Sylvain Ahumada MD is Referral Physician. [facility] 16:27 IV discontinued, intact, bleeding controlled. jt3 Administered Medications: 14:46 Drug: morphine 2 mg Route: IVP; Site: right antecubital; jt3 14:46 Drug: Zofran (Ondansetron) 4 mg Route: IVP; Site: right antecubital; jt3 16:27 Drug: Bactrim (trimethoprim-sulfamethoxazole) (160 mg-800 mg (DS) 1 tablet Route: PO; jt3 Outcome: 16:10 Discharge ordered by . geovani 16:27 Discharged to home ambulatory. jt3 16:27 Condition: good 16:27 Discharge instructions given to patient, family. 17:11 Patient left the ED. jt3 Signatures: Dispatcher [employer] EDMS Mendoza Arenas PA PA jmm Williams, Irene, MAGNO KIRAN Naila Vásquez [facility] Yaakov Arenas [facility] Hayden Barclay RN RN ll1 Pavel Bennett RN RN jt3 Corrections: (The following items were deleted from the chart) 13:25 13:21 Chief complaint: Patient states: [place] cold after her shower today. ll1 noticed pus draining from abdominal wound. Denies pain and fever. States she is actually feeling better today than usual. Came in for eval. Dr. Ahumada was her surgeon. She followed up with him this week. They wanted to leave the clamps in until next Sunday. States she is taking her antibiotics as prescribed. ll1
[2021-03-11] MEDS ORDERED: SMZ./TMP. 800/160 MG TABLET ONE (16:39)
[2021-03-11 17:30] VITALS: TEMP 97.6
[2021-03-11 17:31] VITALS: BP 151/74; O2SAT 98
== END 2021-03-11 17:11 | disposition home or self-care (01) ==
LOC: ER 13:04
DX: Z48.815 Encounter for surgical aftercare following surgery on the digestive system (principal)
CPT/HCPCS: 85025; 36415; 80053; 74176; 96375; 96374; 99284; J2270; J2405

== ENCOUNTER 2021-07-20 06:19 | Inpatient (IN) | payer OTHER ==
[2021-07-19 14:33] LABS: Absolute Lymphocytes (CBC) 0.7 K/uL (0.7-4.9); Hematocrit 40.5 % (36.0-45.0); Lymphocytes % 11.8 % (15.3-44.8); MPV 8.7 fL (7.6-11.3); RBC Red Blood Cell Count 4.47 M/uL (3.86-4.86)
[2021-07-19 14:48] LABS: Potassium 3.8 mmol/L (3.5-5.1)
[2021-07-20] MEDS ORDERED: NA CHLORIDE 0.9% 1,000 ML ONE (06:25)
[2021-07-20] MEDS ORDERED: CEFOXITIN SODIUM 1 GM/VIAL ONE ×2 (06:25→07:40)
[2021-07-20] MEDS ORDERED: NA CHLORIDE 0.9% 50 ML ONE ×2 (06:26→07:59)
[2021-07-20] MEDS ORDERED: propofoL 200 MG/20 ML VIAL IV ONE (06:28)
[2021-07-20] MEDS ORDERED: LIDOCAINE 1% MPF 5 ML VIAL ONE (06:28)
[2021-07-20] MEDS ORDERED: FENTANYL CITR 100 MCG/2 ML ONE ×2 (06:28→11:45)
[2021-07-20] MEDS ORDERED: MIDAZOLAM HCL 2 MG/2 ML INJ ONE (06:28)
[2021-07-20] MEDS ORDERED: GLYCOPYRROLATE 0.2 MG/ML SYR ONE (06:29)
[2021-07-20] MEDS ORDERED: NEOSTIGMINE 1 MG/ML -5 ML ONE (06:29)
[2021-07-20] MEDS ORDERED: METOCLOPRAMIDE 10 MG/2mL INJ ONE (06:30)
[2021-07-20] MEDS ORDERED: ROCURONIUM 50 MG/5 ML VIAL IV ONE ×3 (06:30→10:26)
[2021-07-20] MEDS ORDERED: KETOROLAC 30 MG/ML INJ ONE (06:30)
[2021-07-20] MEDS ORDERED: MORPHINE 10 MG/ML VIAL ONE (06:30)
[2021-07-20] MEDS ORDERED: ONDANSETRON 4 MG/2 ML VIAL ONE ×2 (06:30→11:33)
[2021-07-20] MEDS ORDERED: Phenylephrine HCl 10 MG/ML 1 ML VIAL ONE (08:23)
[2021-07-20] MEDS ORDERED: ALBUMIN HUM 5% 250 ML IV ONE (08:50)
[2021-07-20] MEDS ORDERED: NA CHLORIDE 0.9% 3,000 ML ONE (10:34)
[2021-07-20] MEDS: HYDROMORPHONE HCL 1 MG/ML INJ ONE ×4 (11:33→12:20)
--- NOTE | 2021-07-20 11:55 | P.BOP ---
Preoperative diagnosis: abd pain, entero-cutaneous fistula, constipation Postoperative diagnosis: same, enterocutaneous and colocutaneous fistula, ext intrabd adhesions Primary procedure: Exploratory lapatoromy, small bowel resection with anastomosis Secondary procedure: colostomy creation, laparoscopic and open extensive intrabd SAUD Other procedure(s): incisional ventral hernia repair, diagnostic laparoscopy Estimated blood loss: <100cc Specimen: small bowel Findings: enterocutaneous and colocutaneous fistula, ext intrabd adhesions Anesthesia: General Complications: None Drain(s): ISELA drain Fluids & blood products: no blood Transferred to: Recovery Room Condition: Good
[2021-07-20] MEDS ORDERED: SODIUM CHLORIDE 0.9% 10ML INJ IV PRN (11:57)
[2021-07-20] MEDS ORDERED: dexAMETHasone 10 MG/ML VIAL ONE (12:27)
--- OUTSIDE RECORDS SUMMARY | 2021-07-20 14:31 | XMS REPORT | Continuity of Care Document ---
:1945 Author Organization [facility] t Address [address] [place] [address] Care Team Providers Name Role Phone Mauricio Campoverde Primary Care Physician Unavailable Neena SMALLS S Attending Clinician Yesica CHAUDHARY Attending Clinician Unavailable ESPERANZA CRUZ Attending Clinician Unavailable Fior MCNAIR, L Attending Clinician LAZARO Attending Clinician Unavailable MARÍA Attending Clinician Unavailable FINN Attending Clinician Unavailable MARJ Attending Clinician Unavailable Payers Payer Name Policy Type Policy Number Effective Date Expiration Date S ource Problems Condition Condition Condition Status Onset Resolution Last Treating Co mments Source Name Details Category Date Date Treatment Clinician Date TREMOR Diagnosis Active 2020-08-17 Mem oria 3-15 10:47:00 l TREMOR 00:00: [place] 00 Active 07/26/2020 [facility] DX: Diagnosis Active 2019-05-20 Mem oria R10.12=LEF 1-03 08:51:00 l T UPPER DX: 00:00: [place] QUADRANT R10.12=LEF 00 PAIN/R13. T UPPER QUADRANT PAIN/R13. Active 05/16/2019 [facility] UNK Diagnosis Active 2018-052019-04-08 Mem oria 1-07 10:20:00 l UNK 00:00: [place] 00 Active 03/20/2019 [facility] DX: Diagnosis Active 2018-052019-04-07 Mem oria R13.10=DYS 1- 10:27:00 l PHAGIA, DX: 00:00: [place] UNSPECIFIE R13.10=DYS 00 D/K21.9= PHAGIA, UNSPECIFIE D/K21.9= Active 03/20/2019 [facility] DX: OTHER Diagnosis Active 2018-10-23 Memoria ABNORMAL 10-08 14:23:00 l AND DX: 00:00: [place] INCONCLUSI OTHER 00 VE FIND ABNORMAL AND INCONCLUSI VE FIND Active 10/08/2018 [facility] XRAY Diagnosis Active 2017-11-29 Mem oria 11-29 10:58:00 l XRAY 10:54: [place] 00 Active 11/29/2017 [facility] GASTROGAST Diagnosis Active 2017-11-22 Memoria NOA 7- 08:52:00 l FISTULA 00:00: [place] GASTROGAST 00 NOA FISTULA Active 11/20/2017 [facility] M25.561/Z9 Diagnosis Active 2017-08-01 Memoria 6.651 3 12:42:00 l 12:42: [place] M25.561/Z9 00 6.651 Active 08/01/2017 [facility] SCREENING Diagnosis Active 2017-07-10 Memoria - 12:01:00 l 00:00: [place] SCREENING 00 Active 06/13/2017 [facility] DX: Diagnosis Active 2017-05-21 Mem oria M81.0=AGE- 1-04 11:14:00 l RELATED DX: 00:00: [place] OSTEOPOROS M81.0=AGE- 00 IS WITHO RELATED OSTEOPOROS IS WITHO Active 05/17/2017 [facility] M17.11 Diagnosis Active 2017-03-07 Mem oria 02-02 21:55:00 l M17.11 00:00: [place] 00 Active 02/02/2017 [facility] K31.9 Diagnosis Active 2016-06-22 Mem oria DISEASE OF 06-19 06:56:00 l STOMACH K31.9 00:00: [place] AND DISEASE OF 00 DUODENUM, STOMACH U AND DUODENUM, U Active 06/19/2016 [facility] R13.10 Diagnosis Active 2016-06-26 Mem oria 2 17:22:00 l R13.10 00:00: [place] 00 Active 06/14/2016 [facility] SCREENING Diagnosis Active 2015-052016-04-03 Memoria MAMMGORAM 0-24 12:43:00 l 00:00: [place] SCREENING 00 MAMMGORAM Active 03/06/2016 [facility] R05 Diagnosis Active 2015-07-27 Mem oria 3-15 10:51:00 l R05 10:50: [place] 00 Active 07/27/2015 [facility] DEHYDRATIO Diagnosis Active 2015-07-07 Memoria N 2- 09:31:00 l 00:00: [place] DEHYDRATIO 00 N Active 07/06/2015 [facility] CHEST , Diagnosis Active 2015-07-07 Me moria ABDOMINAL 06-30 09:41:00 l [place] CHEST , 00:00: Her garnett L ABDOMINAL 00 ONLYPT [place] L ONLYPT Active 06/30/2015 [facility] 599.0 Diagnosis Active 2014-09-08 Mem oria ACUTE 08-19 15:21:00 l LOWER UTI 599.0 00:00: [place] n ACUTE 00 LOWER UTI Active 08/19/2014 [facility] ICD 787.20 Diagnosis Active 2014-08-20 Memoria 530.3 / -24 06:44:00 l CPT 59938 ICD 00:00: [place] 787.20 00 530.3 / CPT 52613 Active 08/04/2014 [facility] ICD 787.20 Diagnosis Active 2013-052014-05-25 Memoria 530.3 / 2-16 21:55:00 l CPT 85704 ICD 00:00: [place] 787.20 00 530.3 / CPT 99752 Active 04/28/2014 [facility] 789.06/787 Diagnosis Active 2013-052014-05-12 Memoria .20 1- 05:32:00 l 00:00: [place] 789.06/787 00 .20 Active 04/07/2014 [facility] 34459 Diagnosis Active 2013-052014-05-18 Mem oria 48327 - 19:39:00 l 61177 00:00: [place] 19902 00 Active 04/07/2014 [facility] DYSPHAGIA Diagnosis Active 2013-052014-04-13 Memoria / HITAL - 10:23:00 l HERNIA / 00:00: [place] GERD DYSPHAGIA 00 / HITAL HERNIA / GERD Active 04/03/2014 [facility] SEVERE Diagnosis Active 2013-07-09 Mem oria HEADACHE 07-09 11:17:00 l SEVERE 00:00: [place] HEADACHE 00 Active 07/09/2013 [facility] 724.4 / Diagnosis Active 2013-07-07 Me moria 723.4 07-02 08:22:00 l 724.4 / 00:00: [place] 723.4 00 Active 07/02/2013 [facility] 793.80 Diagnosis Active 2013-07-02 Mem oria ABNORMAL 06-03 16:22:00 l MAMMOGRAM 793.80 00:00: Adela nn ABNORMAL 00 MAMMOGRAM Active 06/03/2013 [facility] GE Diagnosis Active 2012-12-27 Mem oria JUNCTION 12-24 16:27:00 l MASS GE 00:00: [place] JUNCTION 00 MASS Active 12/24/2012 [facility] 686.50,793 Diagnosis Active 2012-12-26 Memoria .80, - 15:44:00 l ABNORMAL 00:00: Rocy[place] MAMMOGRAM 686.50,793 00 .80, ABNORMAL MAMMOGRAM Active 12/05/2012 [facility] Dehydratio Problem Active 2012-12-29 M emoria n 02-03 21:27:52 l 00:00: [place] Dehydratio 00 n Active 02/03/2010 Problem 12/29/2012 [facility] Weakness Problem Active 2012-12-29 Mem oria 02-03 21:27:52 l Weakness 00:00: [place] n 00 Active 02/03/2010 Problem 12/29/2012 [facility] Dehydratio Problem Active 2020-10-30 M emoria n 02-03 01:46:47 l (disorder) 00:00: [place] Dehydratio 00 n (disorder) Active 02/03/2010 Problem 10/30/2020 [facility] [place] Asthenia Problem Active 2020-10-30 Mem oria (finding) 02-03 01:46:47 l Asthenia 00:00: [place] (finding) 00 Active 02/03/2010 Problem 10/30/2020 [facility] Neuro,[facility] 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 ia blood cell 9- 02:02:34 l disorder White 00:00: [place] (disorder) blood cell 00 disorder (disorder) Active 01/21/2010 Problem 07/12/2013 [facility] Leukocytos Problem Active 2012-12-29 M emoria is 9- 21:27:52 l 00:00: [place] Leukocytos 00 is Active 0 Problem 3 [facility] Leukocytos Problem Active 2015-01-01 M emoria is(Confirm 01-21 02:07:09 l ed) 00:00: [place] Leukocytos 00 is(Confirm ed) Active 01/21/2010 Problem 01/01/2015 [facility] Hiatal Problem Active 2012-12-29 Memor ia hernia 01-18 21:27:52 l Hiatal 00:00: [place] hernia 00 Active 01/18/2010 Problem 12/29/2012 [facility] Lloyd Problem Active 2012-12-29 Memor ia fundoplica 9- 21:27:52 l tion [place] 00:00: [place] fundoplica 00 tion Active 01/13/2010 Problem 12/29/2012 [facility] Lloyd Problem Active 2020-10-30 Memor ia fundoplica 9-02 01:46:47 l tion [place] 00:00: [place] (procedure fundoplica 00 ) tion (procedure ) Active 01/13/2010 Problem 10/30/2020 [facility] Neuro,[facility] Chest pain Problem Active 2012-12-29 M emoria 8- 21:27:52 l Chest 00:00: [place] pain 00 Active 12/16/2009 Problem 12/29/2012 [facility] Chest pain Problem Active 2020-10-30 M emoria (finding) 8 01:46:47 l Chest 00:00: [place] pain 00 (finding) Active 12/16/2009 Problem 10/30/2020 [facility] Neuro,[facility] No known No known Disease Unive rs active active ity of problems problems [facility] Cardiac Problem Active 2017-05-24 Jhonathan jaime pacemaker, 03:08:56 l device Cardiac [place] (physical pacemaker, object) device (physical object) Active Problem 05/24/2017 [facility] CA - Problem Active 2012-12-29 Memor ia Cancer of 21:27:52 l colon CA - [place] Cancer of colon Active Problem 12/29/2012 [facility] Cardiac Problem Active 2012-12-29 Jhonathan jaime pacemaker, 21:27:52 l device Cardiac [place] pacemaker, device Active Problem 12/29/2012 [facility] GERD - Problem Active 2012-12-29 Memor ia Gastro-eso 21:27:52 l phageal GERD - [place] reflux Gastro-eso disease phageal reflux disease Active Problem 12/29/2012 [facility] HTN - Problem Active 2012-12-29 Memor ia Hypertensi 21:27:52 l on HTN - [place] Hypertensi on Active Problem 3 [facility] Backache Problem Active 2020-10-30 Mem oria (finding) 01:46:47 l Backache Obi n (finding) Active Problem 10/30/2020 [facility] Malignant Problem Active 2020-10-30 Me moria tumor of 01:46:47 l colon [place] (disorder) Malignant tumor of colon (disorder) Active Problem 10/30/2020 [facility] Cardiac Problem Active 2020-10-30 Jhonathan jaime pacemaker 01:46:47 l in situ Cardiac O[place] n (finding) pacemaker in situ (finding) Active Problem 10/30/2020 [facility] Fistula Problem Active 2020-10-30 Jhonathan jaime (disorder) 01:46:47 l Fistula [place] (disorder) Active Problem 10/30/2020 esophagea l gastric [facility] Gastroesop Problem Active 2020-10-30 M emoria hageal 01:46:47 l reflux [place] disease Gastroesop (disorder) hageal reflux disease (disorder) Active Problem 10/30/2020 [facility] Headache Problem Active 2020-10-30 Mem oria (finding) 01:46:47 l Headache Obi n (finding) Active Problem 10/30/2020 [facility] Hearing Problem Active 2020-10-30 Jhonathan jaime loss 01:46:47 l (finding) Hearing Herm steph loss (finding) Active Problem 10/30/2020 [facility] Hypertensi Problem Active 2020-10-30 M emoria ve 01:46:47 l disorder, [place] systemic Hypertensi arterial ve (disorder) disorder, systemic arterial (disorder) Active Problem 10/30/2020 [facility] Hyperchole Problem Active 2020-10-30 M emoria sterolemia 01:46:47 l (disorder) Obi n Hyperchole sterolemia (disorder) Active Problem 10/30/2020 [facility] On Problem Active 2020-10-30 Memor ia examinatio 01:46:47 l n - On [place] spasm/tic examinatio (context-d n - ependent spasm/tic category) (context-d ependent category) Active Problem 10/30/2020 of colon [facility] Osteoarthr Problem Active 2020-10-30 M emoria itis 01:46:47 l (disorder) Obi n Osteoarthr itis (disorder) Active Problem 10/30/2020 bilateral knees [facility] Tremor Problem Active 2020-10-30 Memor ia (finding) 01:46:47 l Tremor [place] (finding) Active Problem 10/30/2020 [facility] Essential Problem Active 2020-10-30 Me moria tremor 01:46:47 l (disorder) Obi n Essential tremor (disorder) Active Problem 10/30/2020 [facility] Neuro LEFT UPPER Diagnosis Active 2019-05-20 Memoria QUADRANT 08:51:00 l PAIN LEFT [place] UPPER QUADRANT PAIN Active [facility] DYSPHAGIA, Diagnosis Active 2019-05-20 Memoria UNSPECIFIE 08:51:00 l D [place] DYSPHAGIA, UNSPECIFIE D Active [facility] TREMOR, Diagnosis Active 2020-08-17 Me moria UNSPECIFIE 10:47:00 l D TREMOR, [place] UNSPECIFIE D Active [facility] ABL Diagnosis Active 2013-07-02 Mem oria MAMMOGRAM 16:22:00 l NOS ABL [place] MAMMOGRAM NOS Active [facility] OTHER Diagnosis Active 2012-12-27 Mem oria DSRDERS 16:27:00 l ESOPHAGUS OTHER [place] n DSRDERS ESOPHAGUS Active [facility] ORDONEZ'S Diagnosis Active 2012-12-23 Memoria ESOPHAGUS 06:09:00 l [place] ORDONEZ'S ESOPHAGUS Active [facility] LUMBOSACRA Diagnosis Active 2013-07-07 Memoria L NEURITIS 08:22:00 l NOS [place] LUMBOSACRA L NEURITIS NOS Active [facility] BRACHIAL Diagnosis Active 2013-07-07 M emoria NEURITIS 08:22:00 l NOS BRACHIAL O[place] n NEURITIS NOS Active [facility] ESOPHAGEAL Diagnosis Active 2014-04-08 Memoria REFLUX 10:27:00 l [place] ESOPHAGEAL REFLUX Active [facility] DYSPHAGIA Diagnosis Active [...] Active 2014-06-03 Mem oria 11:27:00 l 787.20 [place] Active [facility] URIN TRACT Diagnosis Active 2014-09-08 Memoria INFECTION 15:21:00 l NOS URIN [place] TRACT INFECTION NOS Active [facility] DIAPHRAGMA Diagnosis Active 2015-06-30 Memoria TIC HERNIA 13:22:00 l WITHOUT [place] OBSTRUCTIO DIAPHRAGMA N TIC HERNIA WITHOUT OBSTRUCTIO N Active [facility] LOCALIZED Diagnosis Active 2015-07-07 Memoria SWELLING, 09:41:00 l MASS AND [place] LUMP, LOCALIZED TRUNK SWELLING, MASS AND LUMP, TRUNK Active [facility] GENERALIZE Diagnosis Active 2015-07-07 Memoria D 09:41:00 l INTRA-ABD [place] AND PELVIC GENERALIZE SWELLIN D INTRA-ABD AND PELVIC SWELLIN Active [facility] ESOPHAGEAL Diagnosis Active 2015-07-06 Memoria OBSTRUCTIO 13:20:00 l N [place] ESOPHAGEAL OBSTRUCTIO N Active [facility] COUGH Diagnosis Active 2015-07-27 Mem oria 10:51:00 l COUGH [place] Active [facility] ANAL SPASM Diagnosis Active 2016-02-15 Memoria 07:37:00 l ANAL [place] SPASM Active [facility] GASTRO-ESO Diagnosis Active 2016-06-26 Memoria PHAGEAL 17:22:00 l REFLUX [place] DISEASE GASTRO-ESO WITHOUT PHAGEAL REFLUX DISEASE WITHOUT Active [facility] ENCNTR Diagnosis Active 2017-07-10 Mem oria SCREEN 12:01:00 l MAMMOGRAM ENCNTR Adela nn FOR SCREEN MALIGNANT MAMMOGRAM NE FOR MALIGNANT NE Active [facility] DISEASE OF Diagnosis Active 2016-06-22 Memoria STOMACH 06:56:00 l AND DISEASE [place] DUODENUM, OF STOMACH UNSPECI AND DUODENUM, UNSPECI Active [facility] FISTULA OF Diagnosis Active 2016-08-23 Memoria STOMACH 10:47:00 l AND FISTULA [place] DUODENUM OF STOMACH AND DUODENUM Active [facility] UNILATERAL Diagnosis Active 2017-03-07 Memoria PRIMARY 21:55:00 l OSTEOARTHR [place] ITIS, UNILATERAL RIGHT PRIMARY OSTEOARTHR ITIS, RIGHT Active [facility] AGE-RELATE Diagnosis Active 2017-05-21 Memoria D 11:14:00 l OSTEOPOROS Obi n IS W/O AGE-RELATE CURRENT D PAT OSTEOPOROS IS W/O CURRENT PAT Active [facility] PAIN IN Diagnosis Active 2017-08-01 Me moria RIGHT KNEE 12:42:00 l PAIN IN [place] RIGHT KNEE Active [facility] History of History of Problem Resolve Univers Abdominal Abdominal d ity of pain, pain, [place] epigastric epigastric Ph ysici ans PRESENCE Diagnosis Active 2017-08-01 M emoria OF RIGHT 12:42:00 l ARTIFICIAL PRESENCE He rmann KNEE JOINT OF RIGHT ARTIFICIAL KNEE JOINT Active [facility] OTHER Diagnosis Active 2017-11-29 Mem oria CHEST PAIN 10:58:00 l OTHER [place] CHEST PAIN Active [facility] Presence Problem 2017-11-07 Mem oria of right 16:05:01 l artificial Presence He rmann knee joint of right artificial knee joint 11/07/2017 [facility] Other Problem 2017-08-27 Memor ia specified 22:14:42 l disorders Other Obi n of bone specified density disorders and of bone structure, density other site and structure, other site 08/27/2017 [facility] SCREEN Diagnosis Active 2014-12-29 Mem oria MAMMOGRAM 07:44:00 l NEC SCREEN [place] MAMMOGRAM NEC Active [facility] Final: Problem 2016-03-31 Memor ia Encounter 01:34:27 l for Final: [place] screening Encounter mammogram for for screening malignant mammogram neoplasm for of breast malignant neoplasm of breast 03/31/2016 [facility] Cancer of Problem Resolve 2012-12-29 M emoria colon d 21:27:52 l Cancer [place] of colon Resolved Problem 12/29/2012 [facility] Hypertensi Problem Resolve 2012-12-29 Memoria on d 21:27:52 l [place] Hypertensi on Resolved Problem 12/29/2012 [facility] Acid Problem Resolve 2020-10-30 Jhonathan jaime reflux d 01:46:47 l (finding) Acid [place] reflux (finding) Resolved Problem 10/30/2020 [facility] Ordonez's Problem Resolve 2020-10-30 M emoria esophagus d 01:46:47 l (disorder) Obi n Ordonez's esophagus (disorder) Resolved Problem 10/30/2020 [facility] Dysphagia Problem Resolve 2020-10-30 M emoria (disorder) d 01:46:47 l [place] Dysphagia (disorder) Resolved Problem 10/30/2020 [facility] History of Problem Resolve 2020-10-30 Memoria sick sinus d 01:46:47 l syndrome History Adela nn (situation of sick ) sinus syndrome (situation ) Resolved Problem 10/30/2020 [facility] History of History of Problem Resolve Univers [...] ity of pain pain [place] [facility] Left sided Left sided Problem Active C [...] wrist Me moria l [facility] Leukocytos Problem Resolve 2020-10-30 2020-10-30 Memoria is(Confirm d 01-21 01:46:47 01:46:47 l ed) 00:00: [place] Leukocytos 00 is(Confirm ed) Resolved 01/21/2010 Problem 10/30/2020 [facility] [place] Diaphragma Problem Resolve 2020-10-30 2020-10-30 Memoria tic hernia d 01-18 01:46:47 01:46:47 l (disorder) 00:00: Obi n Diaphragma 00 tic hernia (disorder) Resolved 01/18/2010 Problem 10/30/2020 [facility] History of Past Illness Condition Condition Condition Status Onset Resolution Last Treating Co mments Source Name Details Category Date Date Treatment Clinician Date Other Problem 2018-06-18 2018-06-18 M emoria chest pain 12-05 16:03:53 16:03:53 l Other 03:22: [place] chest pain 37 12/05/2017 06/18/2018 [facility] Pain in Problem 2017-11-07 2017-11-07 Memoria right knee 08-08 16:05:01 16:05:01 l Pain in 03:16: [place] right knee 49 08/08/2017 11/07/2017 [facility] Encounter Problem 2017-10-16 2017-10-16 Memoria for 07-17 11:59:21 11:59:21 l screening 04:15: [place] mammogram Encounter 43 for for malignant screening neoplasm mammogram of breast for malignant neoplasm of breast 07/17/2017 10/16/2017 [facility] Age-relate Problem 2017-08-27 2017-08-27 Memoria d 1-12 22:14:42 22:14:42 l osteoporos 04:24: Obi n is without Age-relate 42 current d pathologic osteoporos al is without fracture current pathologic al fracture 8 08/27/2017 [facility] Discharge Problem 2013-07-12 2013-07-12 Memoria Diagnosis: 2- 02:02:34 02:02:34 l Spinal 06:00: [place] headache Discharge 00 Diagnosis: Spinal headache 4 07/12/2013 [facility] Discharge Problem 2013-07-12 2013-07-12 Memoria Diagnosis: 2- 02:02:34 02:02:34 l Spinal 06:00: [place] Blood Discharge 00 Patch Diagnosis: Spinal Blood Patch 07/09/2013 07/12/2013 [facility] Allergies, Adverse Reactions, Alerts Allergy Allergy Status Severity Reaction(s) Onset Inactive Treating Comm ents Source Name Type Date Date Clinician Hydrocod Propensi Active Unknown - Other Uni vers one-Acet ty to See comments 12-16 reaction( ity of aminophe adverse 00:00: s): GI [place] n reaction 00 intoleran Medic al s ce, GI Branch Intoleran ce, Other (see comments) Nausea, vomitingN ausea, vomiting Iodinate Propensi Active Swelling Other Univ ers d ty to 12-16 reaction( ity of Contrast adverse 00:00: s): [place] reaction 00 (see Medical s comments) Branch HYDROCOD DRUG Active Unknown-Cmnt Un kvng ONE-ACET 12-16 ity of AMINOPHE 00:00: [place] N 00 Medical Branch IODINATE Drug Active Unknown-Cmnt Un kvng D Class 12-16 ity of CONTRAST 00:00: [place] MEDIA 00 Medical Branch Acetamin Propensi Active Other - See 2017-05 U nivers ophen-Co ty to comments 06-12 ity of deine adverse 00:00: [place] reaction 00 Medical s Branch ACETAMIN DRUG Active Med Other-Cmnt 2017-05 Univ ers OPHEN-CO 06-12 ity of DEINE 00:00: [place] 00 Medical Branch Iodex drug Active Univers OINT allergy ity of [place] [facility] Iodinate drug Active Univers d allergy ity of Contrast [place] [facility] Vicodin drug Active Univers TABS allergy ity of [place] [facility] Iodine allergy Active Univers to ity of substanc [place] [facility] Contrast Contrast Active Memori a Media Media l Ready-Ian Ready-Ian Obi n x MISC x MISC Vicodin Vicodin Active Memoria TABS TABS l [place] iodinate iodinate Active Memori a d d l radiocon radiocon Obi n trast trast dyes dyes Vicodin Vicodin Active Memoria l [place] Vicodin Adverse Active Info Not [facility] contrast Adverse Active Info Not [facility] dye Reaction Available [facility] Contrast drug Active Univers Media allergy ity of Ready-Ian [place] x MISC Physici ans Family History Family Member Diagnosis Comments Start Date Stop Date Source Father Family history of [facility] [place] [facility] Social History Social Habit Start Date Stop Date Quantity Comments Source Exposure to Not sure [facility] SARS-CoV-2 (event) Medica l Branch Tobacco use and 2019-05-16 2019-05-16 Never used [facility] [place] exposure 00:00:00 00:00:00 Medical Branch Social History 2014-04-27 2014-04-27 [facility] Darling luke 21:45:00 21:45:00 [birth year] [facility] 00:00:00 00:00:00 Medical Branch Smoking Status Start Date Stop Date Source Never smoker [facility] Medications Ordered Filled Start Stop Current Ordering Indication Dosage Frequency Signature Comments Components Source Medication Medication Date Date Medication? Clinician (SIG) Name Name MELOXICAM Yes [id number] TAKE 1 Un kvng 7.5 mg 1-31 TABLET ity of tablet 00:00: EVERY DAY [facility] MELOXICAM Yes [id number] TAKE 1 Un kvng 7.5 mg 1-31 TABLET ity of tablet 00:00: EVERY DAY [facility] MELOXICAM Yes [id number] TAKE 1 Un kvng 7.5 mg 1-31 TABLET ity of tablet 00:00: EVERY DAY [facility] MELOXICAM 2020-05 Yes [id number] TAKE 1 Un kvng 7.5 mg 0-14 TABLET ONE ity of tablet 00:00: TIME DAILY [place] [facility] FOR PAIN Branch (SCALE 4 TO 6) MELOXICAM 2020-05 Yes [id number] TAKE 1 Un kvng 7.5 mg 0-14 TABLET ONE ity of tablet 00:00: TIME DAILY [place] [facility] FOR PAIN Branch (SCALE 4 TO 6) MELOXICAM 2020-05 Yes [id number] TAKE 1 Un kvng 7.5 mg 0-14 TABLET ONE ity of tablet 00:00: TIME DAILY [place] [facility] FOR PAIN Branch (SCALE 4 TO 6) amLODIPine Yes amlodipine U nivers 5 mg tablet 8-20 5 mg ity of 10:18: tablet [address] omeprazole Yes omeprazole U nivers 40 mg 8-20 40 mg ity of capsule 10:18: capsule,de [facility] 81 Yes 81mg Take 81 mg U nivers mg chewable 8-20 by mouth ity of tablet 10:18: daily. [address] amLODIPine Yes amlodipine U nivers 5 mg tablet 8-20 5 mg ity of 10:18: tablet [address] omeprazole Yes omeprazole U nivers 40 mg 8-20 40 mg ity of capsule 10:18: capsule,[facility] [address] [place] [address] aspirin 81 Yes 81mg Take 81 mg U nivers mg chewable 8-20 by mouth ity of tablet 10:18: daily. [address] amLODIPine Yes amlodipine U nivers 5 mg tablet 8-20 5 mg ity of 10:18: tablet [address] omeprazole Yes omeprazole U nivers 40 mg 8-20 40 mg ity of capsule 10:18: capsule,[facility] [address] [place] [address] aspirin 81 Yes 81mg Take 81 mg U nivers mg chewable 8-20 by mouth ity of tablet 10:18: daily. [address] primidone Yes 50 mg = 1 Mem oria 50 mg oral 6-16 tab, PO, l tablet 16:25: BID, # 180 Adela nn 00 tab, 1 Refill(s), Pharmacy: [facility], 149.86, cm, 10/27/20 11:15:00 CDT, Height, 60, kg, 10/27/20 11:15:00 CDT, Weight primidone Yes 50 mg = 1 Mem oria 50 mg oral 6-16 tab, PO, l tablet 16:25: BID, # 180 Adela nn 00 tab, 1 Refill(s), Pharmacy: [facility], 149.86, cm, 10/27/20 11:15:00 CDT, Height, 60, kg, 10/27/20 11:15:00 CDT, Weight primidone Yes 50 mg = 1 Mem oria 50 mg oral 6-16 tab, PO, l tablet 16:25: BID, # 180 Adela nn 00 tab, 1 Refill(s), Pharmacy: [facility], 149.86, cm, 10/27/20 11:15:00 CDT, Height, 60, kg, 10/27/20 11:15:00 CDT, Weight cyclobenzap Yes 0 Memori a rine 5 mg 6-16 Refill(s) l oral tablet 16:16: Obi n 00 cyclobenzap 2020-0 Yes 0 Memori a rine 5 mg 6-16 Refill(s) l oral tablet 16:16: Obi n 00 cyclobenzap 2020-0 Yes 0 Memori a rine 5 mg 6-16 Refill(s) l oral tablet 16:16: Obi n 00 primidone 2020-0 Yes 50 mg = 1 Mem oria 50 mg oral 4-16 tab, PO, l tablet 16:57: Bedtime, # Adela nn 00 30 tab, 3 Refill(s), Pharmacy: [facility], 144.78, cm, 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, Height, 59.545, kg, 08/27/20 11:40:00 CDT, Weight primidone 2020-0 Yes 50 mg = 1 Mem oria 50 mg oral 4-16 tab, PO, l tablet 16:57: Bedtime, # Adela nn 00 30 tab, 3 Refill(s), Pharmacy: [facility] 482, 144.78, cm, 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, Height, 59.545, kg, 08/27/20 11:40:00 CDT, Weight primidone 2020-0 Yes 50 mg = 1 Mem oria 50 mg oral 4-16 tab, PO, l tablet 16:57: Bedtime, # Adela nn 00 30 tab, 3 Refill(s), Pharmacy: [facility] 482, 144.78, cm, 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, Height, 59.545, kg, 08/27/20 11:40:00 CDT, Weight topiramate 2020-0 Yes 25 mg = 1 Me moria 25 MG Oral 2-13 tab, PO, l Tablet 00:28: Bedtime, # Adela nn [Topamax] 00 30 tab, 2 Refill(s), Pharmacy: [facility] 482, 144.78, cm, 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, Height, 60.909, kg, 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, Weight topiramate 2020-0 Yes 25 mg = 1 Me moria 25 MG Oral 2-13 tab, PO, l Tablet 00:28: Bedtime, # Adela nn [Topamax] 00 30 tab, 2 Refill(s), Pharmacy: [facility] 482, 144.78, cm, 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, Height, 60.909, kg, 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, Weight topiramate 2020-0 Yes 25 mg = 1 Me moria 25 MG Oral 2-13 tab, PO, l Tablet 00:28: Bedtime, # Adela nn [Topamax] 00 30 tab, 2 Refill(s), Pharmacy: [facility] 482, 144.78, cm, 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, Height, 60.909, kg, 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, Weight Protonix 2020-0 Yes 40 mg, PO, Mem oria 2-12 Daily, # l 20:31: 30 tab, 0 Refill(s) Clonidine 2020-0 Yes 0.1 mg, Memor ia 2-12 PO, PRN, 0 l 20:31: Refill(s) Protonix 2020-0 Yes 40 mg, PO, Mem oria 2-12 Daily, # l 20:31: 30 tab, 0 [place] 00 Refill(s) Clonidine 2020-0 Yes 0.1 mg, Memor ia 2-12 PO, PRN, 0 l 20:31: Refill(s) Protonix 2020-0 Yes 40 mg, PO, Mem oria 2-12 Daily, # l 20:31: 30 tab, 0 [place] 00 Refill(s) Clonidine 2020-0 Yes 0.1 mg, Memor ia 2-12 PO, PRN, 0 l 20:31: Refill(s) levothyroxi 2018-05 Yes TAKE 1 Univ ers ne 25 mcg 2-11 TABLET BY ity o f tablet 00:00: MOUTH [place] EVERY Medical MORNING Branch WITH WATER AND ON AN EMPTY STOMACH levothyroxi 2018-05 Yes TAKE 1 Univ ers ne 25 mcg 2-11 TABLET BY ity o f tablet 00:00: MOUTH [place] EVERY Medical MORNING Branch WITH WATER AND ON AN EMPTY STOMACH levothyroxi 2018-05 Yes TAKE 1 Univ ers ne 25 mcg 2-11 TABLET BY ity o f tablet 00:00: MOUTH [place] 00 EVERY Medical MORNING Branch WITH WATER AND ON AN EMPTY STOMACH Sodium 2018-05 No 1,000 mL, Memori a Chloride 1-26 Rate: 75 l 0.9% IV 17:26: ml/hr, [place] 1000 mL 00 Infuse over: 13.3 hr, Route: IV, Dosing Weight 62.045 kg, Total Volume: 1,000, Start date: 04/08/19 11:26:00 ROLL OPERATOR, Duration: 30 day, Stop date: 05/08/19 11:25:00 ROLL OPERATOR, 1.65, m2 Sodium 2018-05 No 1,000 mL, Memori a Chloride 1-26 Rate: 75 l 0.9% IV 17:26: ml/hr, [place] 1000 mL 00 Infuse over: 13.3 hr, Route: IV, Dosing Weight 62.045 kg, Total Volume: 1,000, Start date: 04/08/19 11:26:00 ROLL OPERATOR, Duration: 30 day, Stop date: 05/08/19 11:25:00 ROLL OPERATOR, 1.65, m2 Sodium 2018-05 No 1,000 mL, Memori a Chloride 1-26 Rate: 75 l 0.9% IV 17:26: ml/hr, [place] 1000 mL 00 Infuse over: 13.3 hr, Route: IV, Dosing Weight 62.045 kg, Total Volume: 1,000, Start date: 04/08/19 11:26:00 ROLL OPERATOR, Duration: 30 day, Stop date: 05/08/19 11:25:00 ROLL OPERATOR, 1.65, m2 levothyroxi 2018-05 Yes 25 Memori a ne 25 mcg 1-25 microgram l (0.025 mg) 19:34: = 1 tab, Her garnett oral tablet 00 PO, Daily, # 30 tab, 0 Refill(s) levothyroxi 2018-05 Yes 25 Memori a ne 25 mcg 1-25 microgram l (0.025 mg) 19:34: = 1 tab, Her garnett oral tablet 00 PO, Daily, # 30 tab, 0 Refill(s) levothyroxi 2018-05 Yes 25 Memori a ne 25 mcg 1-25 microgram l (0.025 mg) 19:34: = 1 tab, Her garnett oral tablet 00 PO, Daily, # 30 tab, 0 Refill(s) omeprazole 2018-05 Yes 40 mg = 1 Me moria 40 mg oral 1-25 cap, PO, l delayed 19:33: Daily, # Obi n release 00 30 cap, 0 capsule Refill(s) omeprazole 2018-05 Yes 40 mg = 1 Me moria 40 mg oral 1-25 cap, PO, l delayed 19:33: Daily, # Obi n release 00 30 cap, 0 capsule Refill(s) omeprazole 2018-05 Yes 40 mg = 1 Me moria 40 mg oral 1-25 cap, PO, l delayed 19:33: Daily, # Obi n release 00 30 cap, 0 capsule Refill(s) Amlodipine- Amlodipine- Yes Gaudencio [address] [facility] Atorvastati Atorvastati 01-30 [facility] - n n 00:00: Memoria 00 [facility] Omeprazole Omeprazole Yes Gaudencio [address] [facility] 01-30 [facility] - 00:00: Memoria 00 [facility] Pantoprazol Pantoprazol Yes JOANNE 1 QD TAKE 1 Univers e Sodium 40 e Sodium 40 01-29 OBONYANO TABLET ity of MG Oral MG Oral 00:00: N.P. DAILY [place] Tablet Tablet 00 Physici Delayed Delayed ans Release Release fentaNYL No Route: IV, Mem oria (ANES) 11-22 Drug form: l 19:52: INJ, ONCE, Stop date: 11/22/17 14:52:00 CDT fentaNYL No Route: IV, Mem oria (ANES) 11-22 Drug form: l 19:52: INJ, ONCE, Stop date: 11/22/17 14:52:00 CDT fentaNYL No Route: IV, Mem oria (ANES) 11-22 Drug form: l 19:52: INJ, ONCE, Stop date: 11/22/17 14:52:00 CDT Oxycodone No Notes: Memori a 11-22 (Same as: l 19:51: Roxicodone ) Naloxone No Notes: Memoria 11-22 Same as l 19:51: Narcan Metoprolol No [...] & Vomiting, Start date: 11/22/17 14:51:00 CDT Oxycodone No Notes: Memori a 7-12 [...] times, Stop date: 11/23/17 0:00:00 CDT Flumazenil 0 No Notes: Memor ia 7-12 (Same as: l 19:51: Romazicon) Ondansetron No 4 mg, Memor ia 7-12 Route: l 19:51: IVP, ONCE, Dosing Weight 59.574, kg, PRN Nausea & Vomiting, Start date: 11/22/17 14:51:00 CDT Oxycodone No Notes: Memori a 7-12 [...] Vomiting, Start date: 11/22/17 14:51:00 CDT tramadol 0 Yes 50 mg = 1 Jhonathan jaime hydrochlori 7-12 tab, PO, l de 50 MG 19:38: Q6H, PRN Adela nn Oral Tablet 00 pain, # 20 tab, 0 Refill(s) tramadol 0 Yes 50 mg = 1 Jhonathan jaime hydrochlori 7-12 tab, PO, l de 50 MG 19:38: Q6H, PRN Adela nn Oral Tablet 00 pain, # 20 tab, 0 Refill(s) tramadol 2017-0 Yes 50 mg = 1 Jhonathan jaime hydrochlori - tab, PO, l de 50 MG 19:38: Q6H, PRN Adela nn Oral Tablet 00 pain, # 20 tab, 0 Refill(s) succinylcho No Route: IV, Memoria line (ANES) 11-22 Drug form: l 19:27: INJ, ONCE, Stop date: 11/22/17 14:27:00 CDT lidocaine No Route: IV, Me moria (ANES) 11-22 Drug form: l 19:27: INJ, ONCE, Stop date: 11/22/17 14:27:00 CDT rocuronium No Route: IV, M emoria (ANES) 11-22 Drug form: l 19:27: INJ, ONCE, Stop date: 11/22/17 14:27:00 CDT fentaNYL No Route: IV, Mem oria (ANES) 11-22 Drug form: l 19:27: INJ, ONCE, Stop date: 11/22/17 14:27:00 CDT propofol 0 No Route: IV, Mem oria (ANES) 11-22 Drug form: l 19:27: INJ, ONCE, Stop date: 11/22/17 14:27:00 CDT succinylcho No Route: IV, Memoria line (ANES) 11-22 Drug form: l 19:27: INJ, ONCE, Stop date: 11/22/17 14:27:00 CDT lidocaine 0 No Route: IV, Me moria (ANES) 11-22 Drug form: l 19:27: INJ, ONCE, Stop date: 11/22/17 14:27:00 CDT rocuronium 0 No Route: IV, M emoria (ANES) 11-22 Drug form: l 19:27: INJ, ONCE, Stop date: 11/22/17 14:27:00 CDT fentaNYL 0 No Route: IV, Mem oria (ANES) 11-22 Drug form: l 19:27: INJ, ONCE, Stop date: 11/22/17 14:27:00 CDT propofol 2018-0 No Route: IV, Mem oria (ANES) - Drug form: l 19:27: INJ, ONCE, Stop date: 11/22/17 14:27:00 CDT succinylcho 2017-0 No Route: IV, Memoria line (ANES) 11-22 Drug form: l 19:27: INJ, ONCE, Stop date: 11/22/17 14:27:00 CDT lidocaine 2017-0 No Route: IV, Me moria (ANES) - Drug form: l 19:27: INJ, ONCE, Stop date: 11/22/17 14:27:00 CDT rocuronium 2017-0 No Route: IV, M emoria (ANES) 11-22 Drug form: l 19:27: INJ, ONCE, Stop date: 11/22/17 14:27:00 CDT fentaNYL 2017-0 No Route: IV, Mem oria (ANES) 11-22 Drug form: l 19:27: INJ, ONCE, Stop date: 11/22/17 14:27:00 CDT propofol 2017-0 No Route: IV, Mem oria (ANES) 11-22 Drug form: l 19:27: INJ, ONCE, Stop date: 11/22/17 14:27:00 CDT ceFAZolin 2017-0 No Route: IV, Me moria (ANES) - Drug form: l 19:22: INJ, ONCE, Stop date: 11/22/17 14:22:00 CDT ceFAZolin 2018-0 No Route: IV, Me moria (ANES) 7- Drug form: l 19:22: INJ, ONCE, Stop date: 11/22/17 14:22:00 CDT ceFAZolin 2018-0 No Route: IV, Me moria (ANES) 7- Drug form: l 19:22: INJ, ONCE, Stop date: 11/22/17 14:22:00 CDT Lactated 2017-0 No Route: IV, Mem oria Ringers 7- Total l Injection 18:28: Volume: Adela nn IV (ANES) 00 1,000, 1000 mL Start date: 11/22/17 13:28:00 CDT, Stop date: 11/22/17 14:28:00 CDT Lactated No Route: IV, Mem oria Ringers 7-12 Total l Injection 18:28: Volume: Adela nn IV (ANES) 00 1,000, 1000 mL Start date: 11/22/17 13:28:00 CDT, Stop date: 11/22/17 14:28:00 CDT Lactated No Route: IV, Mem oria Ringers 7-12 Total l Injection 18:28: Volume: Adela nn IV (ANES) 00 1,000, 1000 mL Start date: 11/22/17 13:28:00 CDT, Stop date: 11/22/17 14:28:00 CDT remove No Notes: Memoria patch 7-12 Remove old l 05:00: patch [place] 00 before applicatio n of new patch. No Notes: Memoria 7-12 Infuse l 05:00: over 15 [place] 00 minutes Do not exceed 4gm/day of acetaminop hen MEDICATION WASTE Product Size: 1000 mg Product Wasted: ___ mg heparin No Notes: Memoria 7-12 porcine l 05:00: heparin [place] 00 scopolamine No Notes: Jhonathan jaime 7-12 Change l 05:00: patch [place] 00 every 72 hours (Same as: Transderm- Scop) ceFAZolin + No Notes: Jhonathan jaime sterile 7-12 (Same As: l water 20 mL 05:00: Ancef, Herm steph 00 Kefzol) MEDICATION WASTE Product Size: 1000 mg Product Wasted: ___ mg remove No Notes: Memoria patch 7-12 Remove old l 05:00: patch [place] 00 before applicatio n of new patch. No Notes: Memoria 7-12 Infuse l 05:00: over 15 [place] 00 minutes Do not exceed 4gm/day of acetaminop hen MEDICATION WASTE Product Size: 1000 mg Product Wasted: ___ mg heparin No Notes: Memoria 7-12 porcine l 05:00: heparin [place] 00 scopolamine No Notes: Jhnoathan jaime 7-12 Change l 05:00: patch [place] 00 every 72 hours (Same as: Transderm- Scop) ceFAZolin + No Notes: Jhonathan jaime sterile 7-12 (Same As: l water 20 mL 05:00: Ancef, Herm steph 00 Kefzol) MEDICATION WASTE Product Size: 1000 mg Product Wasted: ___ mg remove No Notes: Memoria patch 7-12 Remove old l 05:00: patch [place] 00 before applicatio n of new patch. Ofirmev No Notes: Memoria 7-12 Infuse l 05:00: over 15 [place] 00 minutes Do not exceed 4gm/day of acetaminop hen MEDICATION WASTE Product Size: 1000 mg Product Wasted: ___ mg heparin No Notes: Memoria 7-12 porcine l 05:00: heparin [place] 00 scopolamine No Notes: Jhonathan jaime 7-12 Change l 05:00: patch [place] 00 every 72 hours (Same as: Transderm- Scop) ceFAZolin + No Notes: Jhonathan jaime sterile 7-12 (Same As: l water 20 mL 05:00: Ancef, Herm steph 00 Kefzol) MEDICATION WASTE Product Size: 1000 mg Product Wasted: ___ mg Aspirin 81 2018 Yes 81 mg = 1 Me moria MG Enteric 7-10 tab, PO, l Coated 18:02: Daily, # [place] Tablet 00 90 tab, 3 Refill(s) Aspirin 81 Yes 81 mg = 1 Me moria MG Enteric 7-10 tab, PO, l Coated 18:02: Daily, # [place] Tablet 00 90 tab, 3 Refill(s) Aspirin 81 2018 Yes 81 mg = 1 Me moria MG Enteric 7-10 tab, PO, l Coated 18:02: Daily, # [place] Tablet 00 90 tab, 3 Refill(s) Hemocyte 2016-05 No Notes: Memoria Plus 0-20 Same as l 14:00: Iron/C/B12 [place] 00 /FA/SA Hemocyte 2016-05 No Notes: Memoria Plus 0-20 Same as l 14:00: Iron/C/B12 [place] 00 // Hemocyte 2016-05 No Notes: Memoria Plus 0-20 Same as l 14:00: Iron/C/B12 [place] //SA Acetaminoph 2016-05 Yes 1 - 2 tab, Memoria en 300 MG / 0-19 PO, Q4H, l Codeine 23:08: PRN Pain, Adela nn Phosphate 22 X 14 day, 60 MG Oral # 60 tab, Tablet 0 [Tylenol Refill(s) with Codeine #4] Acetaminoph 2016-05 Yes 1 - 2 tab, Memoria en 300 MG / 0-19 PO, Q4H, l Codeine 23:08: PRN Pain, Adela nn Phosphate 22 X 14 day, 60 MG Oral # 60 tab, Tablet 0 [Tylenol Refill(s) with Codeine #4] Acetaminoph 2016-05 Yes 1 - 2 tab, [...] # 90 tab, 0 Refill(s) tramadol 2016-05 Yes 50 mg = 1 Jhonathan jaime hydrochlori 0-19 tab, PO, l de 50 MG 23:07: Q8H, PRN Adela nn Oral Tablet 16 Pain, X 14 day, # 90 tab, 0 Refill(s) tramadol 2016-05 Yes 50 mg = 1 [...] [Tylenol Refill(s) with Codeine #4] tramadol 2016-05 No 50 mg = 1 Jhonathan jaime hydrochlori 0-19 tab, PO, l de 50 MG 22:25: Q8H, PRN Adela nn Oral Tablet 00 Pain, X 14 day, # 42 tab, 0 Refill(s) tramadol 2016-05 No 50 [...] Tablet 0 [Tylenol Refill(s) with Codeine #4] Acetaminoph 2016-05 No 1 - 2 tab, Memoria en 300 MG / 0-19 PO, Q4H, l Codeine 22:25: PRN Pain, Adela nn Phosphate 00 X 14 day, 60 MG Oral # 60 tab, Tablet 0 [Tylenol Refill(s) with Codeine #4] Oxycodone 2016-05 No Notes: Memori a Hydrochlori 0-19 (Same as: l de 5 MG 16:16: Roxicodone Herm steph Oral Tablet 00 ) Oxycodone 2016-05 No Notes: Memori a Hydrochlori 0-19 (Same as: l de 5 MG 16:16: Roxicodone Herm steph Oral Tablet 00 ) Oxycodone 2016-05 No Notes: Memori a Hydrochlori 0-19 (Same as: l de 5 MG 16:16: Roxicodone Herm steph Oral Tablet 00 ) amLODIPine 2016-05 Yes 5 mg = 1 Mem oria 5 mg oral 0-19 tab, PO, l tablet 15:54: Daily, 0 [place] 00 Refill(s) amLODIPine 2016-05 Yes 5 mg = 1 Mem oria 5 mg oral 0-19 tab, PO, l tablet 15:54: Daily, 0 Refill(s) amLODIPine 2016-05 Yes 5 mg = 1 Mem oria 5 mg oral 0-19 tab, PO, l tablet 15:54: Daily, 0 Refill(s) Losartan 2016-05 No Notes: Memoria 0-19 (Same as: l 14:00: Cozaar) Norvasc 2016-05 No Notes: Memoria 0-19 (Same as: l 14:00: Norvasc) Losartan 2016-05 No Notes: Memoria 0-19 (Same as: l 14:00: Cozaar) Norvasc 2016-05 No Notes: Memoria 0-19 (Same as: l 14:00: Norvasc) Losartan 2016-05 No Notes: Memoria 0-19 (Same as: l 14:00: Cozaar) Norvasc 2016-05 No Notes: Memoria 0-19 (Same as: l 14:00: Norvasc) Tylenol 2016-05 No Notes: Do Memor ia 0-19 not exceed l 13:50: 4 gm/day. (Same as: Tylenol) Tylenol 2016-05 No Notes: Do Memor ia 0-19 not exceed l 13:50: 4 gm/day. (Same as: Tylenol) Tylenol 2016-05 No Notes: Do Memor ia 0-19 not exceed l 13:50: 4 gm/day. (Same as: Tylenol) Roxicodone 2016-05 No Notes: Memor ia 0-19 (Same as: l 13:49: Roxicodone ) Roxicodone 2016-05 No Notes: Memor ia 0-19 (Same as: l 13:49: Roxicodone ) Roxicodone 2016-05 No Notes: Memor ia 0-19 (Same as: l 13:49: Roxicodone ) Acetaminoph 2016-05 No 1 tab, Jhonathan jaime en 325 MG / 0-19 Route: PO, l Oxycodone 13:35: Drug Form: Elvin Parsons 00 TAB, de 5 MG Dosing Oral Tablet Weight [Percocet 57.864, 5/325] kg, Q4H, PRN Pain Score 1-3, Start date: 03/01/17 8:35:00 CDT, Duration: 30 day, Stop date: 03/31/17 8:34:00 ROLL OPERATOR Acetaminoph 2016- No 1 tab, Jhonathan jaime en 325 MG / 0-19 Route: PO, l Oxycodone 13:35: Drug Form: Elvin rmsteph Hydrochlori 00 TAB, de 5 MG Dosing Oral Tablet Weight [Percocet 57.864, 5/325] kg, Q4H, PRN Pain Score 1-3, Start date: 03/01/17 8:35:00 CDT, Duration: 30 day, Stop date: 03/31/17 8:34:00 ROLL OPERATOR Acetaminoph 2016- No 1 tab, Jhonathan jaime en 325 MG / 0-19 Route: PO, l Oxycodone 13:35: Drug Form: Elvin rmsteph Hydrochlori 00 TAB, de 5 MG Dosing Oral Tablet Weight [Percocet 57.864, 5/325] kg, Q4H, PRN Pain Score 1-3, Start date: 03/01/17 8:35:00 CDT, Duration: 30 day, Stop date: 03/31/17 8:34:00 ROLL OPERATOR Omeprazole 2016- No 20 mg, Memor ia 0-18 Route: PO, l 22:00: Drug form: [place] 00 ECTAB, BID, Dosing Weight 57.864, kg, Start date: 02/28/17 17:00:00 CDT, Duration: 30 day, Stop date: 03/30/17 9:00:00 ROLL OPERATOR Omeprazole 2017-1 No 20 mg, Memor ia 0-18 Route: PO, l 22:00: Drug form: [place] 00 ECTAB, BID, Dosing Weight 57.864, kg, Start date: 02/28/17 17:00:00 CDT, Duration: 30 day, Stop date: 03/30/17 9:00:00 ROLL OPERATOR Omeprazole 2017-1 No 20 mg, Memor ia 0-18 Route: PO, l 22:00: Drug form: [place] 00 ECTAB, BID, Dosing Weight 57.864, kg, Start date: 02/28/17 17:00:00 CDT, Duration: 30 day, Stop date: 03/30/17 9:00:00 ROLL OPERATOR Protonix 2016-05 No Notes: Memoria 0-18 Tablet l 21:30: should not [place] 00 be chewed or crushed. (Same as: Protonix) Protonix 2016-05 No Notes: Memoria 0-18 Tablet l 21:30: should not [place] 00 be chewed or crushed. (Same as: Protonix) Protonix 2016-05 No Notes: Memoria 0-18 Tablet l 21:30: should not [place] 00 be chewed or crushed. (Same as: Protonix) Dilaudid 2016-05 No 1 mg, 1 Memori a 0-18 mL, Route: l 13:35: IVP, Drug [place] 00 form: INJ, Q4H, Dosing Weight 57.864, kg, PRN Pain Score 7-10, Start date: 02/28/17 8:35:00 CDT, Duration: 3 day, Stop date: 03/03/17 8:34:00 CDT Dilaudid 2016-05 No 1 mg, 1 Memori a 0-18 mL, Route: l 13:35: IVP, Drug [place] 00 form: INJ, Q4H, Dosing Weight 57.864, kg, PRN Pain Score 7-10, Start date: 02/28/17 8:35:00 CDT, Duration: 3 day, Stop date: 03/03/17 8:34:00 CDT Dilaudid 2016-05 No 1 mg, 1 Memori a 0-18 mL, Route: l 13:35: IVP, Drug [place] 00 form: INJ, Q4H, Dosing Weight 57.864, kg, PRN Pain Score 7-10, Start date: 02/28/17 8:35:00 CDT, Duration: 3 day, Stop date: 03/03/17 8:34:00 CDT Acetaminoph 2016-05 No Notes: Jhonathan jaime en 325 MG / 0-18 Same as l Hydrocodone 13:34: [place] Adela nn Bitartrate 00 325-7.5mg 7.5 MG Oral Do not Tablet exceed [[place] 4gm/day of 7.5/325] acetaminop hen. Acetaminoph 2016-05 No Notes: Jhonathan jaime en 325 MG / 0-18 Same as l Hydrocodone 13:34: [place] Adela nn Bitartrate 00 325-7.5mg 7.5 MG Oral Do not Tablet exceed [[place] 4gm/day of 7.5/325] acetaminop hen. Acetaminoph 2016-05 No Notes: Jhonathan jaime en 325 MG / 0-18 Same as l Hydrocodone 13:34: [place] Adela nn Bitartrate 00 325-7.5mg 7.5 MG Oral Do not Tablet exceed [[place] 4gm/day of 7.5/325] acetaminop hen. Enoxaparin 2016-05 No Notes: Memor ia 0-18 (Same as: l 04:00: Lovenox) [place] 00 Enoxaparin 2016-05 No Notes: Memor ia 0-18 (Same as: l 04:00: Lovenox) [place] 00 Enoxaparin 2016-05 No Notes: Memor ia 0-18 (Same as: l 04:00: Lovenox) [place] 00 ceFAZolin 2016-05 No 1 gm, 100 Mem oria (SCIP) 0-18 mL, Route: l 03:00: IVPB, Drug [place] 00 form: INJ, Q6H, Dosing Weight 57.864, kg, Start date: 02/27/17 22:00:00 CDT, Duration: 3 doses or times, Stop date: 02/28/17 10:00:00 CDT, ABX Indication : Surgical Prophylaxi s ceFAZolin 2016-05 No 1 gm, 100 Mem oria (SCIP) 0-18 mL, Route: l 03:00: IVPB, Drug [place] 00 form: INJ, Q6H, Dosing Weight 57.864, kg, Start date: 02/27/17 22:00:00 CDT, Duration: 3 doses or times, Stop date: 02/28/17 10:00:00 CDT, ABX Indication : Surgical Prophylaxi s ceFAZolin 2016-05 No 1 gm, 100 Mem oria (SCIP) 0-18 mL, Route: l 03:00: IVPB, Drug [place] 00 form: INJ, Q6H, Dosing Weight 57.864, kg, Start date: 02/27/17 22:00:00 CDT, Duration: 3 doses or times, Stop date: 02/28/17 10:00:00 CDT, ABX Indication : Surgical Prophylaxi s esta 2016-05 No 3 mg, Memoria 0-18 Route: PO, l 02:00: Bedtime, [place] 00 Dosing Weight 57.864, kg, Start date: 02/27/17 21:00:00 CDT, Duration: 30 day, Stop date: 03/28/17 21:00:00 ROLL OPERATOR esta 2016-05 No 3 mg, Memoria 0-18 Route: PO, l 02:00: Bedtime, [place] 00 Dosing Weight 57.864, kg, Start date: 02/27/17 21:00:00 CDT, Duration: 30 day, Stop date: 03/28/17 21:00:00 ROLL OPERATOR esta 2016-05 No 3 mg, Memoria 0-18 Route: PO, l 02:00: Bedtime, Dosing Weight 57.864, kg, Start date: 02/27/17 21:00:00 CDT, Duration: 30 day, Stop date: 03/28/17 21:00:00 ROLL OPERATOR zolpidem 2016-05 No Notes: Memoria 0-17 (Same As: l 22:51: Ambien) [place] zolpidem 2016-05 No Notes: Memoria 0-17 (Same As: l 22:51: Ambien) [place] zolpidem 2016-05 No Notes: Memoria 0-17 (Same As: l 22:51: Ambien) [place] 00 Docusate 2016-05 No Notes: Memoria 0-17 (Same as: l 22:00: Colace) [place] (Do Not Crush) Docusate 2016-05 No Notes: Memoria 0-17 (Same as: l 22:00: Colace) [place] (Do Not Crush) Docusate 2016-05 No Notes: Memoria 0-17 (Same as: l 22:00: Colace) [place] 00 (Do Not Crush) Naloxone 2016-05 No 0.4 mg, Memori a 0-17 Route: l 17:08: IVP, [place] 00 Q2MIN, Dosing Weight 57.864, kg, PRN Narcotic Reversal, Start date: 02/27/17 12:08:00 CDT, Duration: 8 doses or times, Stop date: Limited # of times Flumazenil 2016-05 No 0.2 mg, Jhonathan jaime 0-17 Route: l 17:08: IVP, PRN, [place] 00 Dosing Weight 57.864, kg, PRN Benzodiaze pine Reversal, Initial dose, Start date: 02/27/17 12:08:00 CDT, Duration: 30 day, Stop date: 03/29/17 11:07:00 ROLL OPERATOR Hydromorpho 2016-05 No 0.5 mg, Mem oria ne 0-17 Route: l 17:08: IVP, [place] 00 Q5Min, Dosing Weight 57.864, kg, PRN Pain Score 7-10, Start date: 02/27/17 12:08:00 CDT, Duration: 4 doses or times, Stop date: Limited # of times Fentanyl 2016-05 No 25 Memoria 0-17 microgram, l 17:08: Route: [place] 00 IVP, Q5Min, Dosing Weight 57.864, kg, PRN Pain Score 4-6, Priority: Routine, Start date: 02/27/17 12:08:00 CDT, Duration: 4 doses or times, Stop date: Limited # of times Promethazin 2016-05 No 6.25 mg, Me moria e 0-17 Route: l 17:08: IVPB, [place] 00 ONCE, Dosing Weight 57.864, kg, PRN Nausea & Vomiting, Start date: 02/27/17 12:08:00 CDT Ondansetron 2016-05 No 4 mg, Memor ia 0-17 Route: l 17:08: IVP, ONCE, [place] 00 Dosing Weight 57.864, kg, PRN Nausea & Vomiting, Start date: 02/27/17 12:08:00 CDT Naloxone 2016-05 No 0.4 mg, Memori a 0-17 Route: l 17:08: IVP, [place] 00 Q2MIN, Dosing Weight 57.864, kg, PRN Narcotic Reversal, Start date: 02/27/17 12:08:00 CDT, Duration: 8 doses or times, Stop date: Limited # of times Flumazenil 2016-05 No 0.2 mg, Jhonathan jaime 0-17 Route: l 17:08: IVP, PRN, [place] 00 Dosing Weight 57.864, kg, PRN Benzodiaze pine Reversal, Initial dose, Start date: 02/27/17 12:08:00 CDT, Duration: 30 day, Stop date: 03/29/17 11:07:00 ROLL OPERATOR Hydromorpho 2016-05 No 0.5 mg, Mem oria ne 0-17 Route: l 17:08: IVP, [place] 00 Q5Min, Dosing Weight 57.864, kg, PRN Pain Score 7-10, Start date: 02/27/17 12:08:00 CDT, Duration: 4 doses or times, Stop date: Limited # of times Fentanyl 2016-05 No 25 Memoria 0-17 microgram, l 17:08: Route: [place] 00 IVP, Q5Min, Dosing Weight 57.864, kg, PRN Pain Score 4-6, Priority: Routine, Start date: 02/27/17 12:08:00 CDT, Duration: 4 doses or times, Stop date: Limited # of times Promethazin 2016-05 No 6.25 mg, Me moria e 0-17 Route: l 17:08: IVPB, [place] 00 ONCE, Dosing Weight 57.864, kg, PRN Nausea & Vomiting, Start date: 02/27/17 12:08:00 CDT Ondansetron 2016-05 No 4 mg, Memor ia 0-17 Route: l 17:08: IVP, ONCE, [place] 00 Dosing Weight 57.864, kg, PRN Nausea & Vomiting, Start date: 02/27/17 12:08:00 CDT Naloxone 2016-05 No 0.4 mg, Memori a 0-17 Route: l 17:08: IVP, [place] 00 Q2MIN, Dosing Weight 57.864, kg, PRN Narcotic Reversal, Start date: 02/27/17 12:08:00 CDT, Duration: 8 doses or times, Stop date: Limited # of times Flumazenil 2016-05 No 0.2 mg, Jhonathan jaime 0-17 Route: l 17:08: IVP, PRN, [place] 00 Dosing Weight 57.864, kg, PRN Benzodiaze pine Reversal, Initial dose, Start date: 02/27/17 12:08:00 CDT, Duration: 30 day, Stop date: 03/29/17 11:07:00 ROLL OPERATOR Hydromorpho 2016-05 No 0.5 mg, Mem oria ne 0-17 Route: l 17:08: IVP, [place] 00 Q5Min, Dosing Weight 57.864, kg, PRN Pain Score 7-10, Start date: 02/27/17 12:08:00 CDT, Duration: 4 doses or times, Stop date: Limited # of times Fentanyl 2016- No 25 Memoria 0-17 microgram, l 17:08: Route: [place] 00 IVP, Q5Min, Dosing Weight 57.864, kg, PRN Pain Score 4-6, Priority: Routine, Start date: 02/27/17 12:08:00 CDT, Duration: 4 doses or times, Stop date: Limited # of times Promethazin 2016-05 No 6.25 mg, Me moria e 0-17 Route: l 17:08: IVPB, [place] 00 ONCE, Dosing Weight 57.864, kg, PRN Nausea & Vomiting, Start date: 02/27/17 12:08:00 CDT Ondansetron 2016-05 No 4 mg, Memor ia 017 Route: l 17:08: IVP, ONCE, [place] 00 Dosing Weight 57.864, kg, PRN Nausea & Vomiting, Start date: 02/27/17 12:08:00 CDT Cefazolin 2016- No 1 gm, Memoria 0-17 Route: l 17:00: IVPB, Drug [place] 00 form: INJ, Q6H, Dosing Weight 57.864, kg, Start date: 02/27/17 12:00:00 CDT, Duration: 3 doses or times, Stop date: 02/28/17 0:00:00 CDT, ABX Indication : Surgical Prophylaxi s Cefazolin 2016- No 1 gm, Memoria 0-17 Route: l 17:00: IVPB, Drug [place] 00 form: INJ, Q6H, Dosing Weight 57.864, kg, Start date: 02/27/17 12:00:00 CDT, Duration: 3 doses or times, Stop date: 02/28/17 0:00:00 CDT, ABX Indication : Surgical Prophylaxi s Cefazolin 2016-05 No 1 gm, Memoria 0-17 Route: l 17:00: IVPB, Drug form: INJ, Q6H, Dosing Weight 57.864, kg, Start date: 02/27/17 12:00:00 CDT, Duration: 3 doses or times, Stop date: 02/28/17 0:00:00 CDT, ABX Indication : Surgical Prophylaxi s Enoxaparin 2016-05 No 30 mg, Memor ia 0-17 Route: l 16:00: SUB-Q, Drug form: INJ, [id number], Dosing Weight 57.864, kg, Start date: 02/27/17 11:00:00 CDT, Duration: 30 day, Stop date: 03/28/17 23:00:00 ROLL OPERATOR Enoxaparin 2016-05 No 30 mg, Memor ia 0-17 Route: l 16:00: SUB-Q, Drug form: INJ, [id number], Dosing Weight 57.864, kg, Start date: 02/27/17 11:00:00 CDT, Duration: 30 day, Stop date: 03/28/17 23:00:00 ROLL OPERATOR Enoxaparin 2016-05 No 30 mg, Memor ia 0-17 Route: l 16:00: SUB-Q, Drug form: INJ, [id number], Dosing Weight 57.864, kg, Start date: 02/27/17 11:00:00 CDT, Duration: 30 day, Stop date: 03/28/17 23:00:00 ROLL OPERATOR glycopyrrol 2016-05 No Route: IV, Memoria ate [...] ONCE, Stop date: 02/27/17 10:49:00 CDT neostigmine 2017 No Route: IV, Memoria (ANES) 0-17 Drug form: l 15:49: INJ, ONCE, Stop date: 02/27/17 10:49:00 CDT glycopyrrol 2016-05 No Route: IV, Memoria ate [...] INJ, ONCE, Stop date: 02/27/17 10:49:00 CDT glycopyrrol 2016-05 No Route: IV, Memoria ate [...] a 0-17 (Same as: l 15:48: Melatonin) Melatonin 2016-05 No Notes: Memori a 0-17 (Same as: l 15:48: Melatonin) Melatonin 2016-05 No Notes: Memori a 0-17 (Same as: l 15:48: Melatonin) Hydromorpho 2016-05 No 0.3 mg, Mem oria ne 0-17 0.3 mL, l 15:43: Route: IVP, Drug form: INJ, Q4H, Dosing Weight 57.864, kg, PRN Pain Score 7-10, Start date: 02/27/17 10:43:00 CDT, Duration: 30 day, Stop date: 03/29/17 10:42:00 ROLL OPERATOR Diphenhydra 2016-05 No 12.5 mg, Me moria mine 0-17 0.5 tab, l 15:43: Route: PO, Drug form: TAB, Q6H, Dosing Weight 57.864, kg, PRN Itching, Start date: 02/27/17 10:43:00 CDT, Duration: 30 day, Stop date: 03/29/17 10:42:00 ROLL OPERATOR Al 2016-05 No Notes: Memoria hydroxide/M 0-17 (aluminum l g 15:43: hydroxide- [place] hydroxide/s 00 magnesium imethicone hyd-simeth 200 mg-200 [...] Duration: 30 day, Stop date: 03/29/17 10:42:00 ROLL OPERATOR Hydromorpho 2016-05 No 0.3 mg, Mem oria ne 0-17 0.3 mL, l 15:43: Route: IVP, Drug form: INJ, Q4H, Dosing Weight 57.864, kg, PRN Pain Score 7-10, Start date: 02/27/17 10:43:00 CDT, Duration: 30 day, Stop date: 03/29/17 10:42:00 ROLL OPERATOR Diphenhydra 2016-05 No 12.5 mg, Me moria mine 0-17 0.5 tab, l 15:43: Route: PO, Drug form: TAB, Q6H, Dosing Weight 57.864, kg, PRN Itching, Start date: 02/27/17 10:43:00 CDT, Duration: 30 day, Stop date: 03/29/17 10:42:00 ROLL OPERATOR Al 2016-05 No Notes: Memoria hydroxide/M 0-17 (aluminum l g 15:43: hydroxide- [place] hydroxide/s 00 magnesium imethicone hyd-simeth 200 mg-200 [...] Duration: 30 day, Stop date: 03/29/17 10:42:00 ROLL OPERATOR Hydromorpho 2016-05 No 0.3 mg, Mem oria ne 0-17 0.3 mL, l 15:43: Route: IVP, Drug form: INJ, Q4H, Dosing Weight 57.864, kg, PRN Pain Score 7-10, Start date: 02/27/17 10:43:00 CDT, Duration: 30 day, Stop date: 03/29/17 10:42:00 ROLL OPERATOR Diphenhydra 2016-05 No 12.5 mg, Me moria mine 0-17 0.5 tab, l 15:43: Route: PO, Drug form: TAB, Q6H, Dosing Weight 57.864, kg, PRN Itching, Start date: 02/27/17 10:43:00 CDT, Duration: 30 day, Stop date: 03/29/17 10:42:00 ROLL OPERATOR Al 2016-05 No Notes: Memoria hydroxide/M 0-17 (aluminum l g 15:43: hydroxide- [place] hydroxide/s 00 magnesium imethicone hyd-simeth 200 mg-200 [...] Duration: 30 day, Stop date: 03/29/17 10:42:00 ROLL OPERATOR dexamethaso 2016-05 No Route: IV, Memoria ne (ANES) 0-17 Drug form: l 15:14: INJ, ONCE, Stop date: 02/27/17 10:14:00 CDT dexamethaso 2016-05 No Route: IV, Memoria ne (ANES) 0-17 Drug form: l 15:14: INJ, ONCE, Stop date: 02/27/17 10:14:00 CDT dexamethaso 2016-05 No Route: IV, Memoria ne [...] INJ, ONCE, Stop date: 02/27/17 10:09:00 CDT rocuronium 2016-05 No Route: IV, M [...] 0-17 Drug form: l 15:09: INJ, ONCE, Rocky 00 Stop date: 02/27/17 10:09:00 CDT rocuronium 2016-05 No Route: IV, M emoria (ANES) 0-17 Drug form: l 15:09: INJ, ONCE, [place] 00 Stop date: 02/27/17 10:09:00 CDT acetaminoph 2016-05 No Route: IV, Memoria en (ANES) 0-17 Drug form: l 15:09: INJ, ONCE, Rocky 00 Stop date: 02/27/17 10:09:00 CDT ceFAZolin 2016-05 No Route: IV, Me moria (ANES) 0-17 Drug form: l 15:09: INJ, ONCE, [place] 00 Stop date: 02/27/17 10:09:00 CDT lidocaine 2016-05 No Route: IV, Me moria (ANES) 0-17 Drug form: l 15:09: INJ, ONCE, Stop date: 02/27/17 10:09:00 CDT propofol 2016-05 No Route: IV, Mem oria (ANES) 0-17 Drug form: l 15:09: INJ, ONCE, Stop date: 02/27/17 10:09:00 CDT hydromorpho 2016-05 No Route: Jhonathan jaime ne (ANES) 0-17 INTRATHECA l 14:54: L, Drug [place] 00 form: INJ, ONCE, Stop date: 02/27/17 9:54:00 CDT hydromorpho 2016-05 No Route: Jhonathan jaime ne (ANES) 0-17 INTRATHECA l 14:54: L, Drug [place] 00 form: INJ, ONCE, Stop date: 02/27/17 9:54:00 CDT hydromorpho 2016-05 No Route: Jhonathan jaime ne (ANES) 0-17 INTRATHECA l 14:54: L, Drug [place] 00 form: INJ, ONCE, Stop date: 02/27/17 9:54:00 CDT LR 1000 mL 2016-05 No Route: IV, M emoria INJ (ANES) 0-17 Total l 14:18: Volume: [place] 00 1,000, Start date: 02/27/17 9:18:00 CDT, Stop date: 02/27/17 10:18:00 CDT LR 1000 mL 2016-05 No Route: IV, M emoria INJ (ANES) 0-17 Total l 14:18: Volume: [place] 00 1,000, Start date: 02/27/17 9:18:00 CDT, Stop date: 02/27/17 10:18:00 CDT LR 1000 mL 2016-05 No Route: IV, M emoria INJ (ANES) 0-17 Total l 14:18: Volume: [place] 00 1,000, Start date: 02/27/17 9:18:00 CDT, Stop date: 02/27/17 10:18:00 CDT Calcium 2016-05 No 1,000 mL, Memor ia Chloride 0-17 Rate: 25 l 0.0014 13:24: ml/hr, [place] MEQ/ML / 00 Infuse Potassium over: 40 Chloride hr, Route: 0.004 IV, Dosing MEQ/ML / Weight Sodium 57.864 kg, Chloride Total 0.103 Volume: MEQ/ML / 1,000, Sodium Start Lactate date: 0.028 02/27/17 MEQ/ML 8:24:00 Injectable CDT, Solution Duration: 30 day, Stop date: 03/29/17 8:23:00 ROLL OPERATOR Calcium 2016-05 No 1,000 mL, Memor ia Chloride 0-17 Rate: 25 l 0.0014 13:24: ml/hr, Rocky MEQ/ML / 00 Infuse Potassium over: 40 Chloride hr, Route: 0.004 IV, Dosing MEQ/ML / Weight Sodium 57.864 kg, Chloride Total 0.103 Volume: MEQ/ML / 1,000, Sodium Start Lactate date: 0.028 02/27/17 MEQ/ML 8:24:00 Injectable CDT, Solution Duration: 30 day, Stop date: 03/29/17 8:23:00 ROLL OPERATOR Calcium 2016-05 No 1,000 mL, Memor ia Chloride 0-17 Rate: 25 l 0.0014 13:24: ml/hr, Rocky MEQ/ML / 00 Infuse Potassium over: 40 Chloride hr, Route: 0.004 IV, Dosing MEQ/ML / Weight Sodium 57.864 kg, Chloride Total 0.103 Volume: MEQ/ML / 1,000, Sodium Start Lactate date: 0.028 02/27/17 MEQ/ML 8:24:00 Injectable CDT, Solution Duration: 30 day, Stop date: 03/29/17 8:23:00 ROLL OPERATOR ropivacaine 2016- No Notes: Memoria 0-17 NOT FOR IV l 13:00: use Ropivacain e 5 mg/mL (49.25 mL) Epinephrin e 1 mg/mL (0.5 mL) Clonidine 0.1 mg/mL (0.8 mL) Ketorolac 30 mg/mL (1 mL) Normal Saline 48.45 mL gabapentin 2016-05 No 300 mg, Jhonathan jaime 0-17 Route: PO, l 13:00: Rocky GAN Dosing Weight 57.864, kg, Start date: 02/27/17 8:00:00 CDT, Duration: 30 day, Stop date: 03/29/17 6:59:00 ROLL OPERATOR celecoxib 2016- No 90 Memoria 0-17 mL/min), l 13:00: Start date: 02/27/17 8:00:00 CDT, Duration: 30 day, Stop date: 03/29/17 6:59:00 ROLL OPERATOR ropivacaine 2017- No Notes: Memoria 0-17 NOT FOR IV l 13:00: use Ropivacain e 5 mg/mL (49.25 mL) Epinephrin e 1 mg/mL (0.5 mL) Clonidine 0.1 mg/mL (0.8 mL) Ketorolac 30 mg/mL (1 mL) Normal Saline 48.45 mL gabapentin 2016-05 No 300 mg, Jhonathan jaime 0-17 Route: PO, l 13:00: Rocky GAN Dosing Weight 57.864, kg, Start date: 02/27/17 8:00:00 CDT, Duration: 30 day, Stop date: 03/29/17 6:59:00 ROLL OPERATOR celecoxib 2016- No 90 Memoria 0-17 mL/min), l 13:00: Start date: 02/27/17 8:00:00 CDT, Duration: 30 day, Stop date: 03/29/17 6:59:00 ROLL OPERATOR ropivacaine 2016-05 No Notes: Memoria 0-17 NOT FOR IV l 13:00: use Ropivacain e 5 mg/mL (49.25 mL) Epinephrin e 1 mg/mL (0.5 mL) Clonidine 0.1 mg/mL (0.8 mL) Ketorolac 30 mg/mL (1 mL) Normal Saline 48.45 mL gabapentin 2016-05 No 300 mg, Jhonathan jaime 0-17 Route: PO, l 13:00: MALIK Dosing Weight 57.864, kg, Start date: 02/27/17 8:00:00 CDT, Duration: 30 day, Stop date: 03/29/17 6:59:00 ROLL OPERATOR celecoxib 2016-05 No 90 Memoria 0-17 mL/min), l 13:00: Start date: 02/27/17 8:00:00 CDT, Duration: 30 day, Stop date: 03/29/17 6:59:00 ROLL OPERATOR 0.3 ML 2016-05 Yes 30 mg, Memoria Enoxaparin 0-17 SUB-Q, l sodium 100 11:05: Q12H, X 14 H ermann MG/ML day, # 28 Prefilled inj, 0 Syringe Refill(s) [Lovenox] Cephalexin 2016-05 No 500 mg = 1 M emoria 500 MG Oral 0-17 cap, PO, l Capsule 11:05: QID, X 10 Adela nn [Keflex] day, # 40 cap, 0 Refill(s) 0.3 ML 2016-05 Yes 30 mg, Memoria Enoxaparin 0-17 SUB-Q, l sodium 100 11:05: Q12H, X 14 H ermann MG/ML day, # 28 Prefilled inj, 0 Syringe Refill(s) [Lovenox] Cephalexin 2016-05 No 500 mg = 1 M emoria 500 MG Oral 0-17 cap, PO, l Capsule 11:05: QID, X 10 Adela nn [Keflex] day, # 40 cap, 0 Refill(s) 0.3 ML 2016-05 Yes 30 mg, Memoria Enoxaparin 0-17 SUB-Q, l sodium 100 11:05: Q12H, X 14 H ermann MG/ML 00 day, # 28 Prefilled inj, 0 Syringe Refill(s) [Lovenox] Cephalexin 2016-05 No 500 mg = 1 M emoria 500 MG Oral 0-17 cap, PO, l Capsule 11:05: QID, X 10 Adela nn [Keflex] day, # 40 cap, 0 Refill(s) Albuterol 2016-05 Yes Notes: Memori a 0.833 MG/ML 0-04 (Same as: 43: Duoneb) Rocky Ipratropium 00 Steward 0.167 MG/ML Inhalant Solution sodium 2016-05 No 500 mL, Memoria chloride 0-04 Rate: 25 l 0.9% 500 ml 17:43: ml/hr, Herm steph INJ 500 mL 00 Infuse over: 20 hr, Route: IV, Dosing Weight 59.545 kg, Total Volume: 500, Start date: 02/14/17 12:43:00 CDT, Duration: 1 day, Stop date: 02/15/17 12:42:00 CDT Albuterol 2016-05 Yes Notes: Memori a 0.833 MG/ML 0-04 (Same as: 43: Duoneb) [place] Ipratropium 00 Steward 0.167 MG/ML Inhalant Solution sodium 2016-05 No 500 mL, Memoria chloride 0-04 Rate: 25 l 0.9% 500 ml 17:43: ml/hr, Herm steph INJ 500 mL 00 Infuse over: 20 hr, Route: IV, Dosing Weight 59.545 kg, Total Volume: 500, Start date: 02/14/17 12:43:00 CDT, Duration: 1 day, Stop date: 02/15/17 12:42:00 CDT Albuterol 2016-05 Yes Notes: Memori a 0.833 MG/ML 0-04 (Same as: 43: Duoneb) [place] Ipratropium 00 Steward 0.167 MG/ML Inhalant Solution sodium 2016-05 No 500 mL, Memoria chloride 0-04 Rate: 25 l 0.9% 500 ml 17:43: ml/hr, Herm steph INJ 500 mL 00 Infuse over: 20 hr, Route: IV, Dosing Weight 59.545 kg, Total Volume: 500, Start date: 02/14/17 12:43:00 CDT, Duration: 1 day, Stop date: 02/15/17 12:42:00 CDT Zofran 2016-0 No Notes: Memoria - (Same as: l 19:53: Zofran) [place] 00 MEDICATION WASTE Product Size: 4 mg Product Wasted: ___ mg Zofran 0 No Notes: Memoria 08-23 (Same as: l 19:53: Zofran) [place] 00 MEDICATION WASTE Product Size: 4 mg Product Wasted: ___ mg Zofran 2016-0 No Notes: Memoria - (Same as: l 19:53: Zofran) [place] 00 MEDICATION WASTE Product Size: 4 mg Product Wasted: ___ mg Albuterol 2016- No 2.49 mg, Jhonathan jaime 0.83 MG/ML 08-23 Route: l Inhalant 19:49: NEB, [place] Solution 00 Q20Min, Dosing Weight 59.091, kg, PRN Wheezing, Priority: STAT, Start date: 08/23/16 14:49:00 CDT, Duration: 30 day, Stop date: 09/22/16 14:48:00 CDT Diphenhydra 2016-0 No 12.5 mg, Me moria mine 12 Route: l 19:49: IVP, Drug [place] 00 form: INJ, Q6H, Dosing Weight 59.091, kg, PRN Itching, Start date: 08/23/16 14:49:00 CDT, Duration: 30 day, Stop date: 09/22/16 14:48:00 CDT Promethazin 2016-0 No 6.25 mg, Me moria e 12 Route: l 19:49: IVPB, [place] 00 ONCE, Dosing Weight 59.091, kg, PRN Nausea & Vomiting, Start date: 08/23/16 14:49:00 CDT Meperidine 2016-0 No 12.5 mg, Mem oria 12 Route: l 19:49: IVP, [place] 00 Q30Min, Dosing Weight 59.091, kg, PRN Other -See Comment, For shivering, Start date: 08/23/16 14:49:00 CDT, Duration: 2 doses or times, Stop date: Limited # of times Ondansetron 2017-0 No 4 mg, Memor ia 4-12 Route: l 19:49: IVP, ONCE, [place] 00 Dosing Weight 59.091, kg, PRN Nausea & Vomiting, Start date: 08/23/16 14:49:00 CDT Oxycodone 2017-0 No 5 mg, Memoria 4-12 Route: PO, l 19:49: Drug form: [place] 00 TAB, Q4H, Dosing Weight 59.091, kg, PRN Pain Score 4-6, Start date: 08/23/16 14:49:00 CDT, Duration: 30 day, Stop date: 09/22/16 14:48:00 CDT esmolol 2017-0 No 10 mg, Memoria 4-12 Route: l 19:49: IVP, [place] 00 Q5Min, Dosing Weight 59.091, kg, PRN Other -See Comment, Start date: 08/23/16 14:49:00 CDT, Duration: 5 doses or times, Stop date: Limited # of times Labetalol 2017-0 No 10 mg, Memori a 4-12 Route: l 19:49: IVP, [place] 00 Q5Min, Dosing Weight 59.091, kg, PRN Elevated BP, Start date: 08/23/16 14:49:00 CDT, Duration: 5 doses or times, Stop date: Limited # of times Hydralazine 2017-0 No 10 mg, Jhonathan jaime 4-12 Route: l 19:49: IVP, [place] 00 Q20Min, Dosing Weight 59.091, kg, PRN Elevated BP, Start date: 08/23/16 14:49:00 CDT, Duration: 2 doses or times, Stop date: Limited # of times Flumazenil 2017-0 No 0.2 mg, Jhonathan jaime 4-12 Route: l 19:49: IVP, PRN, [place] 00 Dosing Weight 59.091, kg, PRN Benzodiaze pine Reversal, Initial dose, Start date: 08/23/16 14:49:00 CDT, Duration: 30 day, Stop date: 09/22/16 14:48:00 CDT Hydromorpho 2017-0 No 0.5 mg, Mem oria ne 08-23 Route: l 19:49: IVP, [place] 00 Q5Min, Dosing Weight 59.091, kg, PRN Pain Score 7-10, Start date: 08/23/16 14:49:00 CDT, Duration: 4 doses or times, Stop date: Limited # of times Calcium 2017-0 No 1,000 mL, Memor ia Chloride 08-23 Rate: 125 l 0.0014 19:49: ml/hr, Rocky MEQ/ML / 00 Infuse Potassium over: 8 Chloride hr, Route: 0.004 IV, Dosing MEQ/ML / Weight Sodium 59.091 kg, Chloride Total 0.103 Volume: MEQ/ML / 1,000, Sodium Start Lactate date: 0.028 08/23/16 MEQ/ML 14:49:00 Injectable CDT, Solution Duration: 30 day, Stop date: 09/22/16 14:48:00 CDT Naloxone 2017-0 No 0.4 mg, Memori a 08-23 Route: l 19:49: IVP, [place] 00 Q2MIN, Dosing Weight 59.091, kg, PRN Narcotic Reversal, Start date: 08/23/16 14:49:00 CDT, Duration: 8 doses or times, Stop date: Limited # of times Albuterol 2017-0 No 2.49 mg, Jhonathan jaime 0.83 MG/ML 08-23 Route: l Inhalant 19:49: NEB, [place] Solution 00 Q20Min, Dosing Weight 59.091, kg, PRN Wheezing, Priority: STAT, Start date: 08/23/16 14:49:00 CDT, Duration: 30 day, Stop date: 09/22/16 14:48:00 CDT Diphenhydra 2017-0 No 12.5 mg, Me moria mine 12 Route: l 19:49: IVP, Drug [place] 00 form: INJ, Q6H, Dosing Weight 59.091, kg, PRN Itching, Start date: 08/23/16 14:49:00 CDT, Duration: 30 day, Stop date: 09/22/16 14:48:00 CDT Promethazin 2016-0 No 6.25 mg, Me moria e 4-12 Route: l 19:49: IVPB, [place] 00 ONCE, Dosing Weight 59.091, kg, PRN Nausea & Vomiting, Start date: 08/23/16 14:49:00 CDT Meperidine 2017-0 No 12.5 mg, Mem oria 4-12 Route: l 19:49: IVP, [place] 00 Q30Min, Dosing Weight 59.091, kg, PRN Other -See Comment, For shivering, Start date: 08/23/16 14:49:00 CDT, Duration: 2 doses or times, Stop date: Limited # of times Ondansetron 2017-0 No 4 mg, Memor ia 4-12 Route: l 19:49: IVP, ONCE, [place] 00 Dosing Weight 59.091, kg, PRN Nausea & Vomiting, Start date: 08/23/16 14:49:00 CDT Oxycodone 2017-0 No 5 mg, Memoria 4-12 Route: PO, l 19:49: Drug form: [place] 00 TAB, Q4H, Dosing Weight 59.091, kg, PRN Pain Score 4-6, Start date: 08/23/16 14:49:00 CDT, Duration: 30 day, Stop date: 09/22/16 14:48:00 CDT esmolol 2017-0 No 10 mg, Memoria 4-12 Route: l 19:49: IVP, [place] 00 Q5Min, Dosing Weight 59.091, kg, PRN Other -See Comment, Start date: 08/23/16 14:49:00 CDT, Duration: 5 doses or times, Stop date: Limited # of times Labetalol 2017-0 No 10 mg, Memori a 4-12 Route: l 19:49: IVP, [place] 00 Q5Min, Dosing Weight 59.091, kg, PRN Elevated BP, Start date: 08/23/16 14:49:00 CDT, Duration: 5 doses or times, Stop date: Limited # of times Hydralazine 2017-0 No 10 mg, Jhonathan jaime 4-12 Route: l 19:49: IVP, [place] 00 Q20Min, Dosing Weight 59.091, kg, PRN Elevated BP, Start date: 08/23/16 14:49:00 CDT, Duration: 2 doses or times, Stop date: Limited # of times Flumazenil 2017-0 No 0.2 mg, Jhonathan jaime 4-12 Route: l 19:49: IVP, PRN, [place] 00 Dosing Weight 59.091, kg, PRN Benzodiaze pine Reversal, Initial dose, Start date: 08/23/16 14:49:00 CDT, Duration: 30 day, Stop date: 09/22/16 14:48:00 CDT Hydromorpho 2017-0 No 0.5 mg, Mem oria ne - Route: l 19:49: IVP, [place] 00 Q5Min, Dosing Weight 59.091, kg, PRN Pain Score 7-10, Start date: 08/23/16 14:49:00 CDT, Duration: 4 doses or times, Stop date: Limited # of times Calcium 2017-0 No 1,000 mL, Memor ia Chloride 08-23 Rate: 125 l 0.0014 19:49: ml/hr, Rocky MEQ/ML / 00 Infuse Potassium over: 8 Chloride hr, Route: 0.004 IV, Dosing MEQ/ML / Weight Sodium 59.091 kg, Chloride Total 0.103 Volume: MEQ/ML / 1,000, Sodium Start Lactate date: 0.028 08/23/16 MEQ/ML 14:49:00 Injectable CDT, Solution Duration: 30 day, Stop date: 09/22/16 14:48:00 CDT Naloxone 2017-0 No 0.4 mg, Memori a 08-23 Route: l 19:49: IVP, [place] 00 Q2MIN, Dosing Weight 59.091, kg, PRN Narcotic Reversal, Start date: 08/23/16 14:49:00 CDT, Duration: 8 doses or times, Stop date: Limited # of times Albuterol 2017-0 No 2.49 mg, Jhonathan jaime 0.83 MG/ML 12 Route: l Inhalant 19:49: NEB, [place] Solution 00 Q20Min, Dosing Weight 59.091, kg, PRN Wheezing, Priority: STAT, Start date: 08/23/16 14:49:00 CDT, Duration: 30 day, Stop date: 09/22/16 14:48:00 CDT Diphenhydra 2017-0 No 12.5 mg, Me moria mine 4-12 Route: l 19:49: IVP, Drug [place] 00 form: INJ, Q6H, Dosing Weight 59.091, kg, PRN Itching, Start date: 08/23/16 14:49:00 CDT, Duration: 30 day, Stop date: 09/22/16 14:48:00 CDT Promethazin 2017-0 No 6.25 mg, Me moria e 4-12 Route: l 19:49: IVPB, [place] 00 ONCE, Dosing Weight 59.091, kg, PRN Nausea & Vomiting, Start date: 08/23/16 14:49:00 CDT Meperidine 2017-0 No 12.5 mg, Mem oria 4-12 Route: l 19:49: IVP, [place] 00 Q30Min, Dosing Weight 59.091, kg, PRN Other -See Comment, For shivering, Start date: 08/23/16 14:49:00 CDT, Duration: 2 doses or times, Stop date: Limited # of times Ondansetron 2017-0 No 4 mg, Memor ia 4-12 Route: l 19:49: IVP, ONCE, [place] 00 Dosing Weight 59.091, kg, PRN Nausea & Vomiting, Start date: 08/23/16 14:49:00 CDT Oxycodone 2017-0 No 5 mg, Memoria 4-12 Route: PO, l 19:49: Drug form: [place] 00 TAB, Q4H, Dosing Weight 59.091, kg, [...] Memori a 4-12 Route: l 19:49: IVP, [place] 00 Q5Min, Dosing Weight 59.091, kg, PRN Elevated BP, Start date: 08/23/16 14:49:00 CDT, Duration: 5 doses or times, Stop date: Limited # of times Hydralazine 2017-0 No 10 mg, Jhonathan jaime 4-12 Route: l 19:49: IVP, [place] 00 Q20Min, Dosing Weight 59.091, kg, PRN Elevated BP, Start date: 08/23/16 14:49:00 CDT, Duration: 2 doses or times, Stop date: Limited # of times Flumazenil 2017-0 No 0.2 mg, Jhonahtan jaime 4-12 Route: l 19:49: IVP, PRN, [place] 00 Dosing Weight 59.091, kg, PRN Benzodiaze pine Reversal, Initial dose, Start date: 08/23/16 14:49:00 CDT, Duration: 30 day, Stop date: 09/22/16 14:48:00 CDT Hydromorpho 2017-0 No 0.5 mg, Mem oria ne 4-12 Route: l 19:49: IVP, [place] 00 Q5Min, Dosing Weight 59.091, kg, PRN Pain Score 7-10, Start date: 08/23/16 14:49:00 CDT, Duration: 4 doses or times, Stop date: Limited # of times Calcium 2017-0 No 1,000 mL, Memor ia Chloride 4-12 Rate: 125 l 0.0014 19:49: ml/hr, [place] MEQ/ML / 00 Infuse Potassium over: 8 Chloride hr, Route: 0.004 IV, Dosing MEQ/ML / Weight Sodium 59.091 kg, Chloride Total 0.103 Volume: MEQ/ML / 1,000, Sodium Start Lactate date: 0.028 08/23/16 MEQ/ML 14:49:00 Injectable CDT, Solution Duration: 30 day, Stop date: 09/22/16 14:48:00 CDT Naloxone 2017-0 No 0.4 mg, Memori a 4-12 Route: l 19:49: IVP, [place] 00 Q2MIN, Dosing Weight 59.091, kg, PRN Narcotic Reversal, Start date: 08/23/16 14:49:00 CDT, Duration: 8 doses or times, Stop date: Limited # of times Albuterol 2017-0 No 3 mL, Memoria 0.833 MG/ML 08-23 Route: l / 17:45: NEB, [place] Ipratropium 00 Dosing [place] Weight 0.167 MG/ML 59.091, Inhalant kg, ONCE, Solution STAT, Start date: 08/23/16 12:45:00 CDT, Stop date: 08/23/16 12:45:00 CDT Calcium 2017-0 No 1,000 mL, Memor ia Chloride 12 Rate: 25 l 0.0014 17:45: ml/hr, [place] MEQ/ML / 00 Infuse Potassium over: 40 Chloride hr, Route: 0.004 IV, Dosing MEQ/ML / Weight Sodium 59.091 kg, Chloride Total 0.103 Volume: MEQ/ML / 1,000, Sodium Start Lactate date: 0.028 08/23/16 MEQ/ML 12:45:00 Injectable CDT, Solution Duration: 30 day, Stop date: 09/22/16 12:44:00 CDT Albuterol 2017-0 No 3 mL, Memoria 0.833 MG/ML 08-23 Route: l :45: NEB, [place] Ipratropium 00 Dosing [place] Weight 0.167 MG/ML 59.091, Inhalant kg, ONCE, Solution STAT, Start date: 08/23/16 12:45:00 CDT, Stop date: 08/23/16 12:45:00 CDT Calcium 2017-0 No 1,000 mL, Memor ia Chloride 08-23 Rate: 25 l 0.0014 17:45: ml/hr, [place] MEQ/ML / 00 Infuse Potassium over: 40 Chloride hr, Route: 0.004 IV, Dosing MEQ/ML / Weight Sodium 59.091 kg, Chloride Total 0.103 Volume: MEQ/ML / 1,000, Sodium Start Lactate date: 0.028 08/23/16 MEQ/ML 12:45:00 Injectable CDT, Solution Duration: 30 day, Stop date: 09/22/16 12:44:00 CDT Albuterol 2017-0 No 3 mL, [facility] 0.833 MG/ML 08-23 Route: l 17:45: NEB, [place] Ipratropium 00 Dosing [place] Weight 0.167 MG/ML 59.091, Inhalant kg, ONCE, Solution STAT, Start date: 08/23/16 12:45:00 CDT, Stop date: 08/23/16 12:45:00 CDT Calcium 2017-0 No 1,000 mL, [facility] Chloride 4-12 Rate: 25 l 0.0014 17:45: ml/hr, [place] MEQ/ML / 00 Infuse Potassium over: 40 Chloride hr, Route: 0.004 IV, Dosing MEQ/ML / Weight Sodium 59.091 kg, Chloride Total 0.103 Volume: MEQ/ML / 1,000, Sodium Start Lactate date: 0.028 08/23/16 MEQ/ML 12:45:00 Injectable CDT, Solution Duration: 30 day, Stop date: 09/22/16 12:44:00 CDT Sodium 2017-0 No 1,000 mL, Memori a Chloride 2-06 Rate: 25 l 0.154 16:43: ml/hr, [place] MEQ/ML 00 Infuse Injectable over: 40 Solution hr, Route: IV, Dosing Weight 60.455 kg, Total Volume: 1,000, Start date: 06/19/16 10:43:00 ROLL OPERATOR, Duration: 30 day, Stop date: 07/19/16 10:42:00 ROLL OPERATOR Sodium 2017-0 No 1,000 mL, Memori a Chloride 2-06 Rate: 25 l 0.154 16:43: ml/hr, [place] MEQ/ML 00 Infuse Injectable over: 40 Solution hr, Route: IV, Dosing Weight 60.455 kg, Total Volume: 1,000, Start date: 06/19/16 10:43:00 ROLL OPERATOR, Duration: 30 day, Stop date: 07/19/16 10:42:00 ROLL OPERATOR Sodium 2017-0 No 1,000 mL, Memori a Chloride 2-06 Rate: 25 l 0.154 16:43: ml/hr, [place] MEQ/ML 00 Infuse Injectable over: 40 Solution hr, Route: IV, Dosing Weight 60.455 kg, Total Volume: 1,000, Start date: 06/19/16 10:43:00 ROLL OPERATOR, Duration: 30 day, Stop date: 07/19/16 10:42:00 ROLL OPERATOR Fish Oil 2017-0 Yes PO, 0 Memoria 2-06 Refill(s) l 16:40: [place] 00 Fish Oil 2017-0 Yes PO, 0 Memoria 2-06 Refill(s) l 16:40: [place] 00 Fish Oil 2017-0 Yes PO, 0 Memoria 2-06 Refill(s) l 16:40: [place] 00 Sodium 2015-05 No 1,000 mL, Memori a Chloride 0-04 Rate: 25 l 0.154 14:09: ml/hr, [place] MEQ/ML 00 Infuse Injectable over: 40 Solution hr, Route: IV, Dosing Weight 60.511 kg, Total Volume: 1,000, Start date: 02/15/16 9:09:00 CDT, Duration: 1 day, Stop date: 02/16/16 9:08:00 CDT Sodium 2015-05 No 1,000 mL, [facility] a Chloride 0-04 Rate: 25 l 0.154 14:09: ml/hr, [place] MEQ/ML 00 Infuse Injectable over: 40 Solution hr, Route: IV, Dosing Weight 60.511 kg, Total Volume: 1,000, Start date: 02/15/16 9:09:00 CDT, Duration: 1 day, Stop date: 02/16/16 9:08:00 CDT Sodium 2015-05 No 1,000 mL, [facility] a Chloride 0-04 Rate: 25 l 0.154 14:09: ml/hr, [place] MEQ/ML 00 Infuse Injectable over: 40 Solution hr, Route: IV, Dosing Weight 60.511 kg, Total Volume: 1,000, Start date: 02/15/16 9:09:00 CDT, Duration: 1 day, Stop date: 02/16/16 9:08:00 CDT biotin 2016-0 Yes PO, Daily, Mem[facility] ia 9-26 0 l 18:15: Refill(s) [place] biotin 2016-0 Yes PO, Daily, [facility] 9-26 0 l 18:15: Refill(s) [place] biotin 2016-0 Yes PO, Daily, [facility] 9-26 0 l 18:15: Refill(s) [place] 00 Promethazin No 6.25 mg, Me moria e 5-17 Route: l 18:41: IVPB, [place] 00 ONCE, Dosing Weight 57.727, kg, PRN Nausea & Vomiting, Start date: 09/28/15 13:41:00 CDT Ondansetron 2015-0 No 4 mg, Mem[facility] ia 09-27 Route: l 18:41: IVP, ONCE, [place] 00 Dosing Weight 57.727, kg, PRN Nausea & Vomiting, Start date: 09/28/15 13:41:00 CDT Diphenhydra 2015-0 No 12.5 mg, Me moria mine 09-27 Route: l 18:41: IVP, Drug [place] 00 form: INJ, Q6H, Dosing Weight 57.727, kg, PRN Itching, Start date: 09/28/15 13:41:00 CDT, Duration: 30 day, Stop date: 10/28/15 13:40:00 CDT Albuterol 2015-0 No 2.49 mg, Jhonathan jaime 0.83 MG/ML 09-27 Route: l Inhalant 18:41: NEB, [place] Solution 00 Q20Min, Dosing Weight 57.727, kg, PRN Wheezing, Priority: STAT, Start date: 09/28/15 13:41:00 CDT, Duration: 30 day, Stop date: 10/28/15 13:40:00 CDT Naloxone 2015-0 No 0.04 mg, Memor ia 09-27 Route: l 18:41: IVP, [place] 00 Q2MIN, Dosing Weight 57.727, kg, PRN Narcotic Reversal, Start date: 09/28/15 13:41:00 CDT, Duration: 8 doses or times, Stop date: Limited # of times Flumazenil 2015-0 No 0.2 mg, Jhonathan jaime 09-27 Route: l 18:41: IVP, PRN, [place] 00 Dosing Weight 57.727, kg, PRN Benzodiaze pine Reversal, Initial dose, Start date: 09/28/15 13:41:00 CDT, Duration: 30 day, Stop date: 10/28/15 13:40:00 CDT Sodium 2016-0 No 500 mL, Memoria Chloride 09-27 Rate: 125 l 0.154 18:41: ml/hr, [place] MEQ/ML 00 Infuse Injectable over: 4 Solution hr, Route: IV, Dosing Weight 57.727 kg, Total Volume: 500, Start date: 09/28/15 13:41:00 CDT, Duration: 30 day, Stop date: 10/28/15 13:40:00 CDT Glucose 50 2016-0 No 1,000 mL, Me moria MG/ML / 5-17 Rate: 125 l Sodium 18:41: ml/hr, [place] Chloride 00 Infuse 0.154 over: 8 MEQ/ML hr, Route: Injectable IV, Dosing Solution Weight 57.727 kg, Total Volume: 1,000, Start date: 09/28/15 13:41:00 CDT, Duration: 30 day, Stop date: 10/28/15 13:40:00 CDT Meperidine 2016-0 No 12.5 mg, Mem oria 5-17 Route: l 18:41: IVP, [place] 00 Q30Min, Dosing Weight 57.727, kg, PRN Other -See Comment, For shivering, Start date: 09/28/15 13:41:00 CDT, Duration: 2 doses or times, Stop date: Limited # of times Hydromorpho 2016-0 No 0.5 mg, Mem oria ne 5-17 Route: l 18:41: IVP, [place] 00 Q5Min, Dosing Weight 57.727, kg, PRN Pain Score 7-10, Start date: 09/28/15 13:41:00 CDT, Duration: 4 doses or times, Stop date: Limited # of times Fentanyl 2016-0 No 25 Memoria 5-17 microgram, l 18:41: Route: [place] 00 IVP, Q5Min, Dosing Weight 57.727, kg, PRN Pain Score 4-6, Start date: 09/28/15 13:41:00 CDT, Duration: 4 doses or times, Stop date: Limited # of times Oxycodone 2016-0 No 10 mg, Memori a 5-17 Route: PO, l 18:41: Drug form: [place] 00 TAB, Q4H, Dosing Weight 57.727, kg, PRN Pain Score 7-10, Start date: 09/28/15 13:41:00 CDT, Duration: 30 day, Stop date: 10/28/15 13:40:00 CDT Promethazin 2016-0 No 6.25 mg, Me moria e 5-17 Route: l 18:41: IVPB, [place] 00 ONCE, Dosing Weight 57.727, kg, PRN Nausea & Vomiting, Start date: 09/28/15 13:41:00 CDT Ondansetron 2015-0 No 4 mg, [facility] ia 09-27 Route: l 18:41: IVP, ONCE, [place] 00 Dosing Weight 57.727, kg, PRN Nausea & Vomiting, Start date: 09/28/15 13:41:00 CDT Diphenhydra 2015-0 No 12.5 mg, Me moria mine 09-27 Route: l 18:41: IVP, Drug [place] form: INJ, Q6H, Dosing Weight 57.727, kg, PRN Itching, Start date: 09/28/15 13:41:00 CDT, Duration: 30 day, Stop date: 10/28/15 13:40:00 CDT Albuterol 2015-0 No 2.49 mg, Jhonathan jaime 0.83 MG/ML 09-27 Route: l Inhalant 18:41: NEB, [place] Solution 00 Q20Min, Dosing Weight 57.727, kg, PRN Wheezing, Priority: STAT, Start date: 09/28/15 13:41:00 CDT, Duration: 30 day, Stop date: 10/28/15 13:40:00 CDT Naloxone 2015-0 No 0.04 mg, Memor ia 09-27 Route: l 18:41: IVP, [place] 00 Q2MIN, Dosing Weight 57.727, kg, PRN Narcotic Reversal, Start date: 09/28/15 13:41:00 CDT, Duration: 8 doses or times, Stop date: Limited # of times Flumazenil 2015-0 No 0.2 mg, Jhonathan jaime 09-27 Route: l 18:41: IVP, PRN, [place] 00 Dosing Weight 57.727, kg, PRN Benzodiaze [...] mL, Me moria MG/ML / 5-17 Rate: 125 l Sodium 18:41: ml/hr, [place] Chloride 00 Infuse 0.154 over: 8 MEQ/ML hr, Route: Injectable IV, Dosing Solution Weight 57.727 kg, Total Volume: 1,000, Start date: 09/28/15 13:41:00 CDT, Duration: 30 day, Stop date: 10/28/15 13:40:00 CDT Meperidine 2016-0 No 12.5 mg, Mem oria 5-17 Route: l 18:41: IVP, [place] 00 Q30Min, Dosing Weight 57.727, kg, PRN Other -See Comment, For shivering, Start date: 09/28/15 13:41:00 CDT, Duration: 2 doses or times, Stop date: Limited # of times Hydromorpho 2016-0 No 0.5 mg, Mem oria ne 5-17 Route: l 18:41: IVP, [place] 00 Q5Min, Dosing Weight 57.727, kg, PRN Pain Score 7-10, Start date: 09/28/15 13:41:00 CDT, Duration: 4 doses or times, Stop date: Limited # of times Fentanyl 2016-0 No 25 Memoria 5-17 microgram, l 18:41: Route: [place] 00 IVP, Q5Min, Dosing Weight 57.727, kg, PRN Pain Score 4-6, Start date: 09/28/15 13:41:00 CDT, Duration: 4 doses or times, Stop date: Limited # of times Oxycodone 2016-0 No 10 mg, Memori a 5-17 Route: PO, l 18:41: Drug form: [place] 00 TAB, Q4H, Dosing Weight 57.727, kg, PRN Pain Score 7-10, Start date: 09/28/15 13:41:00 CDT, Duration: 30 day, Stop date: 10/28/15 13:40:00 CDT Promethazin 2015-0 No 6.25 mg, Me moria e 09-27 Route: l 18:41: IVPB, [place] 00 ONCE, Dosing Weight 57.727, kg, PRN Nausea & Vomiting, Start date: 09/28/15 13:41:00 CDT Ondansetron 2015-0 No 4 mg, [facility] ia 09-27 Route: l 18:41: IVP, ONCE, [place] Dosing Weight 57.727, kg, PRN Nausea & Vomiting, Start date: 09/28/15 13:41:00 CDT Diphenhydra 2015-0 No 12.5 mg, Me moria mine 09-27 Route: l 18:41: IVP, Drug [place] 00 form: INJ, Q6H, Dosing Weight 57.727, kg, PRN Itching, Start date: 09/28/15 13:41:00 CDT, Duration: 30 day, Stop date: 10/28/15 13:40:00 CDT Albuterol 2015-0 No 2.49 mg, Jhonathan jaime 0.83 MG/ML 09-27 Route: l Inhalant 18:41: NEB, [place] Solution 00 Q20Min, Dosing Weight 57.727, kg, PRN Wheezing, Priority: STAT, Start date: 09/28/15 13:41:00 CDT, Duration: 30 day, Stop date: 10/28/15 13:40:00 CDT Naloxone 2015-0 No 0.04 mg, Mem[facility] ia 09-27 Route: l 18:41: IVP, [place] 00 Q2MIN, Dosing Weight 57.727, kg, PRN Narcotic Reversal, Start date: 09/28/15 13:41:00 CDT, Duration: 8 doses or times, Stop date: Limited # of times Flumazenil 2015-0 No 0.2 mg, Jhonathan jaime 09-27 Route: l 18:41: IVP, PRN, [place] 00 Dosing Weight 57.727, kg, PRN Benzodiaze pine Reversal, Initial dose, Start date: 09/28/15 13:41:00 CDT, Duration: 30 day, Stop date: 10/28/15 13:40:00 CDT Sodium 2015-0 No 500 mL, [facility] Chloride 5-17 Rate: 125 l 0.154 18:41: ml/hr, [place] MEQ/ML 00 Infuse Injectable over: 4 Solution hr, Route: IV, Dosing Weight 57.727 kg, Total Volume: 500, Start date: 09/28/15 13:41:00 CDT, Duration: 30 day, Stop date: 10/28/15 13:40:00 CDT Glucose 50 2016-0 No 1,000 mL, Me moria MG/ML / 5-17 Rate: 125 l Sodium 18:41: ml/hr, [place] Chloride 00 Infuse 0.154 over: 8 MEQ/ML hr, Route: Injectable IV, Dosing Solution Weight 57.727 kg, Total Volume: 1,000, Start date: 09/28/15 13:41:00 CDT, Duration: 30 day, Stop date: 10/28/15 13:40:00 CDT Meperidine 2015-0 No 12.5 mg, Mem oria 5-17 Route: l 18:41: IVP, [place] 00 Q30Min, Dosing Weight 57.727, kg, PRN Other -See Comment, For shivering, Start date: 09/28/15 13:41:00 CDT, Duration: 2 doses or times, Stop date: Limited # of times Hydromorpho 2015-0 No 0.5 mg, Mem oria ne 5-17 Route: l 18:41: IVP, [place] 00 Q5Min, Dosing Weight 57.727, kg, PRN Pain Score 7-10, Start date: 09/28/15 13:41:00 CDT, Duration: 4 doses or times, Stop date: Limited # of times Fentanyl 2015-0 No 25 Memoria 5-17 microgram, l 18:41: Route: [place] 00 IVP, Q5Min, Dosing Weight 57.727, kg, PRN Pain Score 4-6, Start date: 09/28/15 13:41:00 CDT, Duration: 4 doses or times, Stop date: Limited # of times Oxycodone 2015-0 No 10 mg, Memori a 5-17 Route: PO, l 18:41: Drug form: [place] 00 TAB, Q4H, Dosing Weight 57.727, kg, PRN Pain Score 7-10, Start date: 09/28/15 13:41:00 CDT, Duration: 30 day, Stop date: 10/28/15 13:40:00 CDT ondansetron 2016-0 No Route: IV, Memoria (ANES) 5-17 Drug form: l 18:14: INJ, ONCE, Stop date: 09/28/15 13:14:00 CDT ondansetron 2016-0 No Route: IV, [facility]oria (ANES) 5-17 Drug form: l 18:14: INJ, ONCE, Stop date: 09/28/15 13:14:00 CDT ondansetron 2016-0 No Route: IV, [facility]oria (ANES) 5-17 Drug form: l 18:14: INJ, ONCE, Stop date: 09/28/15 13:14:00 CDT propofol 2016-0 No Route: IV, Mem oria (ANES) 5-17 Drug form: l 18:09: INJ, ONCE, Stop date: 09/28/15 13:09:00 CDT propofol 2016-0 No Route: IV, Mem oria (ANES) 5-17 Drug form: l 18:09: INJ, ONCE, Stop date: 09/28/15 13:09:00 CDT propofol 2016-0 No Route: IV, Mem oria (ANES) 5-17 Drug form: l 18:09: INJ, ONCE, Stop date: 09/28/15 13:09:00 CDT Lactated 2015-0 No Route: IV, Mem oria Ringers 5-17 Total l Injection 17:10: Volume: Adela nn IV (ANES) 00 1,000, (ANES) Start date: 09/28/15 12:10:00 CDT, Stop date: 09/28/15 13:10:00 CDT Lactated 2015-0 No Route: IV, Mem oria Ringers 5-17 Total l Injection 17:10: Volume: Adela nn IV (ANES) 00 1,000, (ANES) Start date: 09/28/15 12:10:00 CDT, Stop date: 09/28/15 13:10:00 CDT Lactated 2015-0 No Route: IV, Mem oria Ringers 5-17 Total l Injection 17:10: Volume: Adela nn IV (ANES) 00 1,000, (ANES) Start date: 09/28/15 12:10:00 CDT, Stop date: 09/28/15 13:10:00 CDT heparin Yes Notes: Memoria sodium, 5-17 porcine l porcine 16:06: heparin [place] 2500 UNT/ML 00 Injectable Solution heparin Yes Notes: [facility] sodium, 5-17 porcine l porcine 16:06: heparin [place] 2500 UNT/ML 00 Injectable Solution heparin Yes Notes: [facility]oria sodium, 5-17 porcine l porcine 16:06: heparin [place] 2500 UNT/ML 00 Injectable Solution Calcium No 1,000 mL, Memor ia Chloride 09-27 Rate: 25 l 0.0014 16:04: ml/hr, [place] MEQ/ML / 00 Infuse Potassium over: 40 Chloride hr, Route: 0.004 IV, Dosing MEQ/ML / Weight Sodium 57.727 kg, Chloride Total 0.103 Volume: MEQ/ML / 1,000, Sodium Start Lactate date: 0.028 09/28/15 MEQ/ML 11:04:00 Injectable CDT, Solution Duration: 30 day, Stop date: 10/28/15 11:03:00 CDT Sodium No 500 mL, [facility] Chloride 09-27 Rate: 125 l 0.154 16:04: ml/hr, [place] MEQ/ML 00 Infuse Injectable over: 4 Solution hr, Route: IV, Dosing Weight 57.727 kg, Total Volume: 500, Start date: 09/28/15 11:04:00 CDT, Duration: 30 day, Stop date: 10/28/15 11:03:00 CDT Glucose 50 No 1,000 mL, Me moria MG/ML / 09-27 Rate: 25 l Sodium 16:04: ml/hr, [place] Chloride 00 Infuse 0.154 over: 40 MEQ/ML hr, Route: Injectable IV, Dosing Solution Weight 57.727 kg, Total Volume: 1,000, Start date: 09/28/15 11:04:00 CDT, Duration: 30 day, Stop date: 10/28/15 11:03:00 CDT Normosol-R 2015- No 1,000 mL, Me moria 5-17 Rate: 25 l 16:04: ml/hr, [place] 00 Infuse over: 40 hr, Route: IV, Dosing Weight 57.727 kg, Total Volume: 1,000, Start date: 09/28/15 11:04:00 CDT, Duration: 30 day, Stop date: 10/28/15 11:03:00 CDT Calcium 2016-0 No 1,000 mL, Memor ia Chloride 5-17 Rate: 25 l 0.0014 16:04: ml/hr, [place] MEQ/ML / 00 Infuse Potassium over: 40 Chloride hr, Route: 0.004 IV, Dosing MEQ/ML / Weight Sodium 57.727 kg, Chloride Total 0.103 Volume: MEQ/ML / 1,000, Sodium Start Lactate date: 0.028 09/28/15 MEQ/ML 11:04:00 Injectable CDT, Solution Duration: 30 [...] 5-17 Rate: 25 l Sodium 16:04: ml/hr, [place] Chloride 00 Infuse 0.154 over: 40 MEQ/ML hr, Route: Injectable IV, Dosing Solution Weight 57.727 kg, Total Volume: 1,000, Start date: 09/28/15 11:04:00 CDT, Duration: 30 day, Stop date: 10/28/15 11:03:00 CDT Normosol-R 2016-0 No 1,000 mL, Me moria 5-17 Rate: 25 l 16:04: ml/hr, [place] 00 Infuse over: 40 hr, Route: IV, Dosing Weight 57.727 kg, Total Volume: 1,000, Start date: 09/28/15 11:04:00 CDT, Duration: 30 day, Stop date: 10/28/15 11:03:00 CDT Calcium 2016-0 No 1,000 mL, Mem[facility] Chloride 5-17 Rate: 25 l 0.0014 16:04: ml/hr, [place] MEQ/ML / 00 Infuse Potassium over: 40 Chloride hr, Route: 0.004 IV, Dosing MEQ/ML / Weight Sodium 57.727 kg, Chloride Total 0.103 Volume: MEQ/ML / 1,000, Sodium Start Lactate date: 0.028 09/28/15 MEQ/ML 11:04:00 Injectable CDT, Solution Duration: 30 [...] 5-17 Rate: 25 l Sodium 16:04: ml/hr, [place] Chloride 00 Infuse 0.154 over: 40 MEQ/ML hr, Route: Injectable IV, Dosing Solution Weight 57.727 kg, Total Volume: 1,000, Start date: 09/28/15 11:04:00 CDT, Duration: 30 day, Stop date: 10/28/15 11:03:00 CDT Normosol-R 2016-0 No 1,000 mL, Me moria 5-17 Rate: 25 l 16:04: ml/hr, [place] 00 Infuse over: 40 hr, Route: IV, Dosing Weight 57.727 kg, Total Volume: 1,000, Start date: 09/28/15 11:04:00 CDT, Duration: 30 day, Stop date: 10/28/15 11:03:00 CDT Unknown 2015-0 Yes Refill(s) Memor [facility] Home 5-17 0 l Medication 14:33: [place] 00 Vitamin B12 2015- Yes 500 Memori a 500 mcg 5-17 microgram l oral tablet 14:33: = 1 tab, [place] 00 PO, Daily, # 30 tab, 0 Refill(s) Unknown Yes Refill(s) [facility] Home 5-17 0 l Medication 14:33: [place] 00 Vitamin B12 2015-0 Yes 500 Memori a 500 mcg 5-17 microgram l oral tablet 14:33: = 1 tab, [place] 00 PO, Daily, # 30 tab, 0 Refill(s) Unknown 2015-0 Yes Refill(s) [facility] Home 5-17 0 l Medication 14:33: [place] 00 Vitamin B12 2016-0 Yes 500 Memori a 500 mcg 5-17 microgram l oral tablet 14:33: = 1 tab, [place] 00 PO, Daily, # 30 tab, 0 Refill(s) Amlodipine 2015-0 Yes 2.5 mg = 1 M emoria 2.5 MG Oral 5-17 tab, PO, l Tablet 14:32: Daily, # [place] [Norvasc] 00 30 tab, 0 Refill(s) Amlodipine 2015-0 Yes 2.5 mg = 1 M emoria 2.5 MG Oral 5-17 tab, PO, l Tablet 14:32: Daily, # [place] [Norvasc] 00 30 tab, 0 Refill(s) Amlodipine 2016-0 Yes 2.5 mg = 1 M emoria 2.5 MG Oral 5-17 tab, PO, l Tablet 14:32: Daily, # [place] [Norvasc] 00 30 tab, 0 Refill(s) Protonix No Notes: For Mem oria 2-25 IV push l 15:00: reconstitu [place] 00 te with 10 ml 0.9% sodium chloride and push over 2 minutes. (Same as: Protonix) Fish Oil No 1,000 mg, Jhonathan jaime 2-25 Route: PO, l 15:00: Drug form: [place] CAP, Daily, Dosing Weight 55.909, kg, Start date: 07/08/15 9:00:00, Duration: 30 day, Stop date: 08/06/15 9:00:00 Protonix 0 No Notes: For Mem oria 2-25 IV push l 15:00: reconstitu [place] 00 te with 10 ml 0.9% sodium chloride and push over 2 minutes. (Same as: Protonix) Fish Oil No 1,000 mg, Jhonathan jaime 2-25 Route: PO, l 15:00: Drug form: [place] 00 CAP, Daily, Dosing Weight 55.909, kg, Start date: 07/08/15 9:00:00, Duration: 30 day, Stop date: 08/06/15 9:00:00 Protonix 2015- No Notes: For Mem oria 2-25 IV push l 15:00: reconstitu [place] 00 te with 10 ml 0.9% sodium chloride and push over 2 minutes. (Same as: Protonix) Fish Oil No 1,000 mg, Jhonathan jaime 2-25 Route: PO, l 15:00: Drug form: [place] 00 CAP, Daily, Dosing Weight 55.909, kg, Start date: 07/08/15 9:00:00, Duration: 30 day, Stop date: 08/06/15 9:00:00 Lisinopril No Notes: Memor ia 2-25 (Same as: l 03:00: Prinivil, [place] 00 Zestril) Lisinopril No Notes: [facility] ia 2-25 (Same as: l 03:00: Prinivil, [place] 00 Zestril) Lisinopril No Notes: [facility] 2-25 (Same as: l 03:00: Prinivil, [place] 00 Zestril) NURSE - 0 No NURSE - Memoria Please 2-24 Please l bring home 21:00: bring home [facility] [place] med Fish 00 med Fish Oil to Oil to Pharmacy Pharmacy for label for label, 1, Drug form: MISC, Route: MISC, TID, 07/07/15 15:00:00, Duration: 30 day, Stop date: 08/06/15 9:00:00 NURSE - 2016-0 No NURSE - Memoria Please 2-24 Please l bring home 21:00: bring home [place] med Fish 00 med Fish Oil to Oil to Pharmacy Pharmacy for label for label, 1, Drug form: MISC, Route: MISC, TID, 07/07/15 15:00:00, Duration: 30 day, Stop date: 08/06/15 9:00:00 NURSE - 2016-0 No NURSE - [facility] Please 2-24 Please l bring home 21:00: bring home [place] med Fish 00 med Fish Oil to Oil to Pharmacy Pharmacy for label for label, 1, Drug form: MISC, Route: MISC, TID, 07/07/15 15:00:00, Duration: 30 day, Stop date: 08/06/15 9:00:00 Lactulose No Notes: Memori a 667 MG/ML 2-24 (Same l Oral 19:21: as:Chronul [place] Solution 00 ac) Lactulose No Notes: Memori a 667 MG/ML 2-24 (Same l Oral 19:21: as:Chronul [place] Solution 00 ac) Lactulose No Notes: Memori a 667 MG/ML 2-24 (Same l Oral 19:21: as:Chronul [place] Solution 00 ac) Amoxicillin Yes 5 ml, PO, M emoria 50 MG/ML / 2-24 Q12H, X 7 l Clavulanate 19:18: day, # 70 [place] 12.5 MG/ML 00 ml, 0 Oral Refill(s), Suspension called to [Augmentin] pharmacy Amoxicillin 2015-0 Yes 5 ml, PO, M emoria 50 MG/ML / 2-24 Q12H, X 7 l Clavulanate 19:18: day, # 70 [place] 12.5 MG/ML 00 ml, 0 Oral Refill(s), Suspension called to [Augmentin] pharmacy Amoxicillin 2015-0 Yes 5 ml, PO, M emoria 50 MG/ML / 2-24 Q12H, X 7 l Clavulanate 19:18: day, # 70 [place] 12.5 MG/ML 00 ml, 0 Oral Refill(s), Suspension called to [Augmentin] pharmacy Fish Oil Yes 1,000 mg, Jhonathan jaime 1000 mg 2-24 PO, Daily, l oral 19:16: 0 [place] capsule 00 Refill(s) Fish Oil Yes 1,000 mg, Jhonathan jaime 1000 mg 2-24 PO, Daily, l oral 19:16: 0 [place] capsule 00 Refill(s) Fish Oil Yes 1,000 mg, Jhonathan jaime 1000 mg 2-24 PO, Daily, l oral 19:16: 0 [place] capsule 00 Refill(s) Protonix No Notes: For Mem oria 2-24 IV push l 16:53: reconstitu [place] 00 te with 10 ml 0.9% sodium chloride and push over 2 minutes. (Same as: Protonix) Protonix No Notes: For Mem oria 2-24 IV push l 16:53: reconstitu [place] 00 te with 10 ml 0.9% sodium chloride and push over 2 minutes. (Same as: Protonix) Protonix No Notes: For Mem oria 2-24 IV push l 16:53: reconstitu [place] 00 te with 10 ml 0.9% sodium chloride and push over 2 minutes. (Same as: Protonix) Fleet Enema No 133 mL, Mem oria 2-24 Route: VA, l 14:54: Dosing [place] 00 Weight 55.909, kg, ONCE, Start date: 07/07/15 8:54:00, Stop date: 07/07/15 8:54:00 Fleet Enema No 133 mL, Mem oria 2-24 Route: VA, l 14:54: Dosing [place] 00 Weight 55.909, kg, ONCE, Start date: 07/07/15 8:54:00, Stop date: 07/07/15 8:54:00 Fleet Enema No 133 mL, Mem oria 2-24 Route: VA, l 14:54: Dosing [place] 00 Weight 55.909, kg, ONCE, Start date: 07/07/15 8:54:00, Stop date: 07/07/15 8:54:00 Zosyn No Notes: Memoria 2-24 (Same as: l 04:00: Zosyn) [place] 00 Dosing based on Piperacill in component Zosyn No Notes: [facility] 2-24 (Same as: l 04:00: Zosyn) [place] 00 Dosing based on Piperacill in component Zosyn No Notes: [facility] 2-24 (Same as: l 04:00: Zosyn) [place] 00 Dosing based on Piperacill in component pantoprazol No Notes: For Memoria e 2-23 IV push l 22:58: reconstitu [place] 00 te with 10 ml 0.9% sodium chloride and push over 2 minutes. (Same as: Protonix) Ondansetron 2015-0 No Notes: Jhonathan jaime 2-23 (Same as: l 22:58: Zofran) [place] 00 MEDICATION WASTE Product Size: 4 mg Product Wasted: ___ mg pantoprazol 2015- No Notes: For Memoria e 2-23 IV push l 22:58: reconstitu [place] 00 te with 10 ml 0.9% sodium chloride and push over 2 minutes. (Same as: Protonix) Ondansetron 2015- No Notes: Jhonathan jaime 2-23 (Same as: l 22:58: Zofran) [place] 00 MEDICATION WASTE Product Size: 4 mg Product Wasted: ___ mg pantoprazol 2015- No Notes: For Memoria e 2-23 IV push l 22:58: reconstitu [place] 00 te with 10 ml 0.9% sodium chloride and push over 2 minutes. (Same as: Protonix) Ondansetron 2015- No Notes: Jhonathan jaime 2-23 (Same as: l 22:58: Zofran) [place] 00 MEDICATION WASTE Product Size: 4 mg Product Wasted: ___ mg Enoxaparin 2015- No Notes: Memor ia 2-23 (Same as: l 22:00: Lovenox) Enoxaparin No Notes: [facility] ia 2-23 (Same as: l 22:00: Lovenox) [place] Enoxaparin 2015- No Notes: Mem[facility] ia 2-23 (Same as: l 22:00: Lovenox) [place] 00 D5W 1/2NS No 1,000 mL, Mem oria 1,000 mL 2-23 Rate: 125 l 21:57: ml/hr, [place] 00 Infuse over: 8 hr, Route: IV, Dosing Weight 57.545 kg, Total Volume: 1,000, Start date: 07/06/15 15:57:00, Duration: 30 day, Stop date: 08/05/15 15:56:00 D5W 1/2NS No 1,000 mL, Mem oria 1,000 mL 2-23 Rate: 125 l 21:57: ml/hr, [place] 00 Infuse over: 8 hr, Route: IV, Dosing Weight 57.545 kg, Total Volume: 1,000, Start date: 07/06/15 15:57:00, Duration: 30 day, Stop date: 08/05/15 15:56:00 D5W 1/2NS 2016-0 No 1,000 mL, Mem oria 1,000 mL 2 Rate: 125 l 21:57: ml/hr, [place] 00 Infuse over: 8 hr, Route: IV, Dosing Weight 57.545 kg, Total Volume: 1,000, Start date: 07/06/15 15:57:00, Duration: 30 day, Stop date: 08/05/15 15:56:00 Reglan 2016-0 No 10 mg, Memoria 2-19 Route: l 23:55: IVP, ONCE, Dosing Weight 57.545, kg, Start date: 07/02/15 17:55:00, Stop date: 07/02/15 17:55:00 Dexamethaso 2016-0 No 4 mg, Memor ia ne 07-02 Route: l 23:55: IVP, ONCE, Dosing Weight 57.545, kg, Start date: 07/02/15 17:55:00, Stop date: 07/02/15 17:55:00 Reglan 2016-0 No 10 mg, [facility] 2-19 Route: l 23:55: IVP, ONCE, Dosing Weight 57.545, kg, Start date: 07/02/15 17:55:00, Stop date: 07/02/15 17:55:00 Dexamethaso 2016-0 No 4 mg, Memor ia ne - Route: l 23:55: IVP, ONCE, Dosing Weight 57.545, kg, Start date: 07/02/15 17:55:00, Stop date: 07/02/15 17:55:00 Reglan 2016-0 No 10 mg, [facility] 2-19 Route: l 23:55: IVP, ONCE, Dosing Weight 57.545, kg, Start date: 07/02/15 17:55:00, Stop date: 07/02/15 17:55:00 Dexamethaso 2016-0 No 4 mg, Memor ia ne 2-19 Route: l 23:55: IVP, ONCE, Dosing Weight 57.545, kg, Start date: 07/02/15 17:55:00, Stop date: 07/02/15 17:55:00 Hydralazine 2016-0 No 10 mg, Jhonathan jaime 2-19 Route: l 22:46: IVP, ONCE, Dosing Weight 57.545, kg, Start date: 07/02/15 16:46:00, Stop date: 07/02/15 16:46:00 Hydralazine 2016-0 No 10 mg, Jhonathan jaime 2-19 Route: l 22:46: IVP, ONCE, Dosing Weight 57.545, kg, Start date: 07/02/15 16:46:00, Stop date: 07/02/15 16:46:00 Hydralazine 2016-0 No 10 mg, Jhonathan jaime 2-19 Route: l 22:46: IVP, ONCE, Dosing Weight 57.545, kg, Start date: 07/02/15 16:46:00, Stop date: 07/02/15 16:46:00 ketOROLAC 2016-0 No 15 mg, Memori a 15 mg/mL 2-19 Route: IV, l injectable 22:38: Drug form: H ermann solution 00 INJ, ONCE, Dosing Weight 57.545, kg, Start date: 07/02/15 16:38:00, Stop date: 07/02/15 16:38:00 ketOROLAC 2016-0 No 15 mg, Memori a 15 mg/mL 2-19 Route: IV, l injectable 22:38: Drug form: H ermann solution 00 INJ, ONCE, Dosing Weight 57.545, kg, Start date: 07/02/15 16:38:00, Stop date: 07/02/15 16:38:00 ketOROLAC 2016-0 No 15 mg, Memori a 15 mg/mL 2-19 Route: IV, l injectable 22:38: Drug form: H ermann solution 00 INJ, ONCE, Dosing Weight 57.545, kg, Start date: 07/02/15 16:38:00, Stop date: 07/02/15 16:38:00 Acetaminoph 2016-0 No 1 tab, Jhonathan jaime en 325 MG / 2-19 Route: PO, l Hydrocodone 22:01: Drug Form: Rocky Bitartrate 00 TAB, 10 MG Oral Dosing Tablet Weight [[place] 58.182, 10/325] kg, Q6H, PRN Pain, Start date: 07/02/15 16:01:00, Duration: 30 day, Stop date: 08/01/15 16:00:00 Ofirmev 2016-0 No or = 50 Memori a 2-19 kg, Start l 22:01: date: Rocky 07/02/15 16:01:00 Oxycodone 2015-0 No 10 mg, Memori a 2-19 Route: PO, l 22:01: Drug form: [place] 00 TAB, Q4H, Dosing Weight 57.545, kg, PRN Pain Score 7-10, Start date: 07/02/15 16:01:00, Duration: 30 day, Stop date: 08/01/15 16:00:00 Ondansetron 2016-0 No 4 mg, Memor ia 2-19 Route: l 22:01: IVP, ONCE, Dosing Weight 57.545, kg, PRN Nausea & Vomiting, Start date: 07/02/15 16:01:00 Fentanyl 2016-0 No 50 Memoria 2-19 microgram, l 22:01: [...] 30 day, Stop date: 08/01/15 17:00:00 Hydromorpho 2015-0 No 0.5 mg, Mem oria ne 2-19 Route: l 22:01: IVP, [place] 00 Q5Min, Dosing Weight 57.545, kg, PRN Pain Score 7-10, Start date: 07/02/15 16:01:00, Duration: 4 doses or times, Stop date: Limited # of times Naloxone 2016-0 No 0.04 mg, Memor ia 2-19 Route: l 22:01: IVP, [place] 00 Q2MIN, Dosing Weight 57.545, kg, PRN Narcotic Reversal, Start date: 07/02/15 16:01:00, Duration: 8 doses or times, Stop date: Limited # of times Acetaminoph 2016-0 No 1 tab, Jhonathan jaime en 325 MG / 19 Route: PO, l Hydrocodone 22:01: Drug Form: [place] Bitartrate 00 TAB, 10 MG Oral Dosing Tablet Weight [[place] 58.182, 10/325] kg, Q6H, PRN Pain, Start date: 07/02/15 16:01:00, Duration: 30 day, Stop date: 08/01/15 16:00:00 Ofirmev 2016-0 No or = 50 Memori a 2-19 kg, Start l 22:01: date: [place] 07/02/15 16:01:00 Oxycodone 2016-0 No 10 mg, Memori a 2-19 Route: PO, l 22:01: Drug form: [place] 00 TAB, Q4H, Dosing Weight 57.545, kg, PRN Pain Score 7-10, Start date: 07/02/15 16:01:00, Duration: 30 day, Stop date: 08/01/15 16:00:00 Ondansetron 2016-0 No 4 mg, Memor ia 2-19 Route: l 22:01: IVP, ONCE, [place] 00 Dosing Weight 57.545, kg, PRN Nausea & Vomiting, Start date: 07/02/15 16:01:00 Fentanyl 2016-0 No 50 Memoria 2-19 microgram, l 22:01: Route: [place] 00 IVP, Q5Min, Dosing Weight 57.545, kg, PRN Pain Score 7-10, Start date: 07/02/15 16:01:00, Duration: 2 doses or times, Stop date: Limited # of times Ketorolac 2015-0 No 30 mg, Memori a 2-19 Route: l 22:01: IVP, ONCE, [place] Dosing Weight 57.545, kg, Start date: 07/02/15 16:01:00, Duration: 1 doses or times, Stop date: 07/02/15 16:01:00 Flumazenil 2016-0 No 0.2 mg, Jhonathan jaime 2-19 Route: l 22:01: IVP, PRN, Rocky Dosing Weight 57.545, kg, PRN Benzodiaze pine Reversal, Initial dose, Start date: 07/02/15 16:01:00, Duration: 30 day, Stop date: 08/01/15 17:00:00 Hydromorpho 2015-0 No 0.5 mg, Mem oria ne 07-02 Route: l 22:01: IVP, [place] 00 Q5Min, Dosing Weight 57.545, kg, PRN Pain Score 7-10, Start date: 07/02/15 16:01:00, Duration: 4 doses or times, Stop date: Limited # of times Naloxone 2015-0 No 0.04 mg, Memor ia - Route: l 22:01: IVP, [place] 00 Q2MIN, Dosing Weight 57.545, kg, PRN Narcotic Reversal, Start date: 07/02/15 16:01:00, Duration: 8 doses or times, Stop date: Limited # of times Acetaminoph 2015-0 No 1 tab, Jhonathan jaime en 325 MG / -19 Route: PO, l Hydrocodone 22:01: Drug Form: [place] Bitartrate 00 TAB, 10 MG Oral Dosing Tablet Weight [[place] 58.182, 10/325] kg, Q6H, PRN Pain, Start date: 07/02/15 16:01:00, Duration: 30 day, Stop date: 08/01/15 16:00:00 Ofirmev 2016-0 No or = 50 Memori a 2-19 kg, Start l 22:01: date: 07/02/15 16:01:00 Oxycodone 2016-0 No 10 mg, Memori a 2-19 Route: PO, l 22:01: Drug form: TAB, Q4H, Dosing Weight 57.545, kg, PRN Pain Score 7-10, Start date: 07/02/15 16:01:00, Duration: 30 day, Stop date: 08/01/15 16:00:00 Ondansetron 2016-0 No 4 mg, Memor ia - Route: l 22:01: IVP, ONCE, Dosing Weight [...] Flumazenil 2016-0 No 0.2 mg, Jhonathan jaime 07-02 Route: l 22:01: IVP, PRN, Dosing Weight 57.545, kg, PRN Benzodiaze pine Reversal, Initial dose, Start date: 07/02/15 16:01:00, Duration: 30 day, Stop date: 08/01/15 17:00:00 Hydromorpho 2016-0 No 0.5 mg, Mem oria ne 07-02 Route: l 22:01: IVP, Q5Min, Dosing Weight 57.545, kg, PRN Pain Score 7-10, Start date: 07/02/15 16:01:00, Duration: 4 doses or times, Stop date: Limited # of times Naloxone 2016-0 No 0.04 mg, Memor ia 2-19 Route: l 22:01: IVP, [place] 00 Q2MIN, Dosing Weight 57.545, kg, PRN Narcotic Reversal, Start date: 07/02/15 16:01:00, Duration: 8 doses or times, Stop date: Limited # of times Hydralazine 2015-0 No Notes: Jhonathan jaime 2-19 (Same as: l 21:52: Apresoline [place] 00 ) Push over 5 minutes Hydralazine 2015-0 No Notes: Jhonathan jaime 2-19 (Same as: l 21:52: Apresoline [place] 00 ) Push over 5 minutes Hydralazine 2015-0 No Notes: Jhonathan jaime 2-19 (Same as: l 21:52: Apresoline [place] 00 ) Push over 5 minutes ondansetron 0 No Route: IV, Memoria (ANES) 2-19 Drug form: l 21:31: INJ, ONCE, Stop date: 07/02/15 15:31:00 ondansetron 2016-0 No Route: IV, Memoria (ANES) 2-19 Drug form: l 21:31: INJ, ONCE, Stop date: 07/02/15 15:31:00 ondansetron 2016-0 No Route: IV, Memoria (ANES) 2-19 Drug form: l 21:31: INJ, ONCE, Stop date: 07/02/15 15:31:00 propofol 2016-0 No Route: IV, Mem oria (ANES) 2-19 Drug form: l 21:28: INJ, ONCE, Stop date: 07/02/15 15:28:00 propofol 2016-0 No Route: IV, Mem oria (ANES) 2-19 Drug form: l 21:28: INJ, ONCE, Stop date: 07/02/15 15:28:00 propofol 2016-0 No Route: IV, Mem oria (ANES) 2-19 Drug form: l 21:28: INJ, ONCE, [place] 00 Stop date: 07/02/15 15:28:00 rocuronium 2016-0 No Route: IV, M emoria (ANES) 2-19 Drug form: l 21:26: INJ, ONCE, Stop date: 07/02/15 15:26:00 rocuronium 2016-0 No Route: IV, Mauricio emoria (ANES) 2-19 Drug form: l 21:26: INJ, ONCE, Stop date: 07/02/15 15:26:00 rocuronium 2016-0 No Route: IV, Mauricio emoria (ANES) 2-19 Drug form: l 21:26: INJ, ONCE, Stop date: 07/02/15 15:26:00 cefOXitin 2016-0 No Route: IV, moria (ANES) 2-19 Drug form: l 21:22: INJ, ONCE, Stop date: 07/02/15 15:22:00 cefOXitin 2016-0 No Route: IV, Me moria (ANES) 2-19 Drug form: l 21:22: INJ, ONCE, Stop date: 07/02/15 15:22:00 cefOXitin 2016-0 No Route: IV, moria (ANES) 2-19 Drug form: l 21:22: INJ, ONCE, Stop date: 07/02/15 15:22:00 Lactated 2015-0 No Route: IV, Mem oria Ringers 2-19 Total l Injection 20:30: Volume: Adela nn IV (ANES) 00 1,000, (ANES) Start date: 07/02/15 14:30:00, Stop date: 07/02/15 15:30:00 Lactated 2015-0 No Route: IV, Mem oria Ringers 2-19 Total l Injection 20:30: Volume: Adela nn IV (ANES) 00 1,000, (ANES) Start date: 07/02/15 14:30:00, Stop date: 07/02/15 15:30:00 Lactated 2015-0 No Route: IV, Mem oria Ringers 2-19 Total l Injection 20:30: Volume: Adela nn IV (ANES) 00 1,000, (ANES) Start date: 07/02/15 14:30:00, Stop date: 07/02/15 15:30:00 Cefoxitin 2016-0 No 2 gm, Memoria 2-19 Route: l 19:01: IVPB, [place] 00 ONCE, Dosing Weight 57.545, kg, 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 [place], Start date: 07/02/15 13:01:00, Stop date: 07/02/15 13:01:00 Cefoxitin 2015-0 No 2 gm, Memoria 2-19 Route: l 19:01: IVPB, [place] 00 ONCE, Dosing Weight 57.545, kg, 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 [place], Start date: 07/02/15 13:01:00, Stop date: 07/02/15 13:01:00 Cefoxitin 2015-0 No 2 gm, Memoria 2-19 Route: l 19:01: IVPB, [place] 00 ONCE, Dosing Weight 57.545, kg, 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 [place], Start date: 07/02/15 13:01:00, Stop date: 07/02/15 13:01:00 heparin 2015-0 No Route: Memoria sodium, 2-19 SUB-Q, l porcine 18:58: ONCE, [place] 2500 UNT/ML 00 Dosing Injectable Weight Solution 57.545, kg, Start date: 07/02/15 12:58:00, Stop date: 07/02/15 12:58:00 heparin 2015-0 No Route: Memoria sodium, 2-19 SUB-Q, l porcine 18:58: ONCE, [place] 2500 UNT/ML 00 Dosing Injectable Weight Solution 57.545, kg, Start date: 07/02/15 12:58:00, Stop date: 07/02/15 12:58:00 heparin 2015-0 No Route: Memoria sodium, 2-19 SUB-Q, l porcine 18:58: ONCE, [place] 2500 UNT/ML 00 Dosing Injectable Weight Solution 57.545, kg, Start date: 07/02/15 12:58:00, Stop date: 07/02/15 12:58:00 Calcium 2016-0 No 1,000 mL, Memor ia Chloride 2-19 Rate: 25 l 0.0014 18:39: ml/hr, [place] MEQ/ML / 00 Infuse Potassium over: 40 Chloride hr, Route: 0.004 IV, Dosing MEQ/ML / Weight Sodium 57.545 kg, Chloride Total 0.103 Volume: MEQ/ML / 1,000, Sodium Start Lactate date: 0.028 07/02/15 MEQ/ML 12:39:00, Injectable Duration: Solution 30 day, Stop date: 08/01/15 12:38:00 Calcium 2016-0 No 1,000 mL, Memor ia Chloride 2-19 Rate: 25 l 0.0014 18:39: ml/hr, [place] MEQ/ML / 00 Infuse Potassium over: 40 Chloride hr, Route: 0.004 IV, Dosing MEQ/ML / Weight Sodium 57.545 kg, Chloride Total 0.103 Volume: MEQ/ML / 1,000, Sodium Start Lactate date: 0.028 07/02/15 MEQ/ML 12:39:00, Injectable Duration: Solution 30 day, Stop date: 08/01/15 12:38:00 Calcium 2016-0 No 1,000 mL, Memor ia Chloride 2-19 Rate: 25 l 0.0014 18:39: ml/hr, [place] MEQ/ML / 00 Infuse Potassium over: 40 Chloride hr, Route: 0.004 IV, Dosing MEQ/ML / Weight Sodium 57.545 kg, Chloride Total 0.103 Volume: MEQ/ML / 1,000, Sodium Start Lactate date: 0.028 07/02/15 MEQ/ML 12:39:00, Injectable Duration: Solution 30 day, Stop date: 08/01/15 12:38:00 Fish Oil 2016-0 Yes 1,000 mg = Mem oria 1000 mg 2-19 1 cap, PO, l oral 17:42: Daily, 0 [place] capsule 00 Refill(s) omeprazole 20160 Yes 20 mg = 1 Me moria 20 mg oral 2-19 tab, PO, l enteric 17:42: BID, # 60 Adela nn coated 00 tab, 0 tablet Refill(s) Fish Oil 2016-0 Yes 1,000 mg = Mem oria 1000 mg 2-19 1 cap, PO, l oral 17:42: Daily, 0 [place] capsule 00 Refill(s) omeprazole 2016-0 Yes 20 mg = 1 Me moria 20 mg oral 2-19 tab, PO, l enteric 17:42: BID, # 60 Adela nn coated 00 tab, 0 tablet Refill(s) Fish Oil 2016-0 Yes 1,000 mg = Mem oria 1000 mg 2-19 1 cap, PO, l oral 17:42: Daily, 0 [place] capsule 00 Refill(s) omeprazole 2016-0 Yes 20 mg = 1 Me moria 20 mg oral 2-19 tab, PO, l enteric 17:42: BID, # 60 Adela nn coated 00 tab, 0 tablet Refill(s) Calcium 2014-0 No 1,000 mL, Memor ia Chloride 3-31 Rate: 25 l 0.0014 14:33: ml/hr, [place] MEQ/ML / 00 Infuse Potassium over: 40 Chloride hr, Route: 0.004 IV, Dosing MEQ/ML / Weight Sodium 58.182 kg, Chloride Total 0.103 Volume: MEQ/ML / 1,000, Sodium Start Lactate date: 0.028 15 MEQ/ML 9:33:00, Injectable Duration: Solution 30 day, Stop date: 09/10/14 9:32:00 Oxycodone 2014-0 No 5 mg, Memoria Hydrochlori 3-31 Route: PO, l de 5 MG 14:33: Drug form: Herm steph Oral Tablet 00 TAB, Q4H, Dosing Weight 58.182, kg, PRN Pain Score 4-6, Start date: 08/11/14 9:33:00, Duration: 30 day, Stop date: 09/10/14 9:32:00 Calcium 2014-0 No 1,000 mL, Memor ia Chloride 3-31 Rate: 25 l 0.0014 14:33: ml/hr, [place] MEQ/ML / 00 Infuse Potassium over: 40 Chloride hr, Route: 0.004 IV, Dosing MEQ/ML / Weight Sodium 58.182 kg, Chloride Total 0.103 Volume: MEQ/ML / 1,000, Sodium Start Lactate date: 0.028 15 MEQ/ML 9:33:00, Injectable Duration: Solution 30 day, Stop date: 09/10/14 9:32:00 Oxycodone 2014-0 No 5 mg, Memoria Hydrochlori 3-31 Route: PO, l de 5 MG 14:33: Drug form: Herm steph Oral Tablet 00 TAB, Q4H, Dosing Weight 58.182, kg, PRN Pain Score 4-6, Start date: 08/11/14 9:33:00, Duration: 30 day, Stop date: 09/10/14 9:32:00 Calcium 2014-0 No 1,000 mL, Memor ia Chloride 3-31 Rate: 25 l 0.0014 14:33: ml/hr, [place] MEQ/ML / 00 Infuse Potassium over: 40 [...] 30 day, Stop date: 09/10/14 9:32:00 Cefoxitin 2015-0 No 2 gm, Memoria 3-31 Route: IV, l 14:30: ONCE, Dosing Weight 58.182, kg, Start date: 08/11/14 9:30:00, Stop date: 08/11/14 9:30:00 Cefoxitin 2015-0 No 2 gm, Memoria 3-31 Route: IV, l 14:30: ONCE, Dosing Weight 58.182, kg, Start date: 08/11/14 9:30:00, Stop date: 08/11/14 9:30:00 Cefoxitin 2015-0 No 2 gm, Memoria 3-31 Route: IV, l 14:30: ONCE, Dosing Weight 58.182, kg, Start date: 08/11/14 9:30:00, Stop date: 08/11/14 9:30:00 heparin 2015-0 No 5,000 Memoria 3-31 unit, l 14:25: Route: [place] 00 SUB-Q, ONCE, Dosing Weight 58.182, kg, Start date: 08/11/14 9:25:00, Stop date: 08/11/14 9:25:00 heparin 2015-0 No 5,000 Memoria 3-31 unit, l 14:25: Route: [place] 00 SUB-Q, ONCE, Dosing Weight 58.182, kg, Start date: 08/11/14 9:25:00, Stop date: 08/11/14 9:25:00 heparin 2015-0 No 5,000 Memoria 3-31 unit, l 14:25: Route: [place] 00 SUB-Q, ONCE, Dosing Weight 58.182, kg, Start date: 08/11/14 9:25:00, Stop date: 08/11/14 9:25:00 tramadol 2015-0 Yes 50 mg = 1 Jhonathan jaime hydrochlori 1-07 tab, PO, l de 50 MG 20:00: Q6H, Pain, Her garnett Oral Tablet 00 # 40 tab, 0 Refill(s) pantoprazol Yes 40 mg = 1 M emoria e 40 mg 1-07 tab, PO, l oral 20:00: BID, # 30 [place] enteric 00 tab, 0 coated Refill(s) tablet tramadol Yes 50 mg = 1 Jhonathan jaime hydrochlori 1-07 tab, PO, l de 50 MG 20:00: Q6H, Pain, Her garnett Oral Tablet 00 # 40 tab, 0 Refill(s) pantoprazol 0 Yes 40 mg = 1 M emoria e 40 mg 1-07 tab, PO, l oral 20:00: BID, # 30 [place] enteric 00 tab, 0 coated Refill(s) tablet tramadol 0 Yes 50 mg = 1 Jhonathan jaime hydrochlori 1-07 tab, PO, l de 50 MG 20:00: Q6H, Pain, Her garnett Oral Tablet 00 # 40 tab, 0 Refill(s) pantoprazol Yes 40 mg = 1 M emoria e 40 mg 1-07 tab, PO, l oral 20:00: BID, # 30 [place] enteric 00 tab, 0 coated Refill(s) tablet Omeprazole No 20 mg, Memor ia 05-20 Route: PO, l 15:00: Drug form: [place] 00 ECTAB, BID, Dosing Weight 62.273, kg, Start date: 05/20/14 9:00:00, Duration: 30 day, Stop date: 06/18/14 17:00:00 Lisinopril No Notes: Memor ia -07 (Same as: l 15:00: Prinivil, Rocky Zestril) Protonix 2015-0 No Notes: Memoria 1-07 Tablet l 15:00: should not [place] 00 be chewed or crushed. (Same as: Protonix) Omeprazole 2014-0 No 20 mg, Memor ia 1-07 Route: PO, l 15:00: Drug form: [place] 00 ECTAB, BID, Dosing Weight 62.273, kg, Start date: 05/20/14 9:00:00, Duration: 30 day, Stop date: 06/18/14 17:00:00 Lisinopril 2015-0 No Notes: Memor ia 1-07 (Same as: l 15:00: Prinivil, [place] 00 Zestril) Protonix 2014-0 No Notes: Memoria 1-07 Tablet l 15:00: should not [place] 00 be chewed or crushed. (Same as: Protonix) Omeprazole 2014-0 No 20 mg, Memor ia 1-07 Route: PO, l 15:00: Drug form: [place] 00 ECTAB, BID, Dosing Weight 62.273, kg, Start date: 05/20/14 9:00:00, Duration: 30 day, Stop date: 06/18/14 17:00:00 Lisinopril 2014-0 No Notes: Memor ia 1-07 (Same as: l 15:00: Prinivil, [place] 00 Zestril) Protonix 2014-0 No Notes: Memoria 1-07 Tablet l 15:00: should not [place] 00 be chewed or crushed. (Same as: Protonix) Ketorolac 2015-0 No 4 days. Jhonathan jaime 1-07 l 06:00: [place] 00 Ketorolac 2015-0 No 4 days. Jhonathan jaime 1-07 l 06:00: [place] 00 Ketorolac 2015-0 No 4 days. Jhonathan jaime 1-07 l 06:00: [place] 00 Enoxaparin 2014-0 No Notes: Memor ia 1-07 (Same as: l 01:00: Lovenox) [place] 00 Enoxaparin 2014-0 No Notes: Memor ia 1-07 (Same as: l 01:00: Lovenox) [place] Enoxaparin 2014-0 No Notes: Memor ia 1-07 (Same as: l 01:00: Lovenox) [place] 00 Acetaminoph No Notes: Max Memoria en 05-20 acetaminop l 00:18: hen 4000 [place] 00 mg/day (4 gm/day). (Same as: Tylenol Extra Strength) Acetaminoph No Notes: Max Memoria en 05-20 acetaminop l 00:18: hen 4000 [place] 00 mg/day (4 gm/day). (Same as: Tylenol Extra Strength) Acetaminoph No Notes: Max Memoria en 05-20 acetaminop l 00:18: hen 4000 [place] 00 mg/day (4 gm/day). (Same as: Tylenol Extra Strength) Phenergan No Notes: Do Mem oria 1-06 not give l 21:03: IV push. [place] 00 (Same as: Phenergan) Phenergan No Notes: Do Mem oria 1-06 not give l 21:03: IV push. [place] 00 (Same as: Phenergan) Phenergan No Notes: Do Mem oria 1-06 not give l 21:03: IV push. [place] 00 (Same as: Phenergan) Ketorolac No 4 days Memor ia 1-06 l 21:01: [place] 00 Ketorolac No 4 days Memor ia 1-06 l 21:01: [place] 00 Ketorolac No 4 days Memor ia 1-06 l 21:01: [place] 00 Morphine No Notes: Memoria 1- (Same l 20:04: as:MORPhin [place] 00 e Sulfate) Morphine No Notes: Memoria 1- (Same l 20:04: as:MORPhin [place] 00 e Sulfate) Morphine No Notes: Memoria 1-06 (Same l 20:04: as:MORPhin [place] 00 e Sulfate) Saline No Notes: Memoria Flush 0.9% 05-19 (Same as: l 18:51: BD [place] 00 Posiflush) Sodium No 1,000 mL, Memori a Chloride 05-19 Rate: 75 l 0.154 18:51: ml/hr, [place] MEQ/ML 00 Infuse Injectable over: 13.3 Solution hr, Route: IV, Dosing Weight 60.909 kg, Total Volume: 1,000, Start date: 05/19/14 12:51:00, Duration: 30 day, Stop date: 06/18/14 12:50:00 Ondansetron 0 No Notes: Jhonathan jaime 05-19 (Same as: l 18:51: Zofran) Acetaminoph No Notes: Do M emoria en 05-19 not exceed l 18:51: 4 gm/day. [place] 00 (Same as: Tylenol) Morphine 0 No 2 mg, Memoria 05-19 Route: l 18:51: IVP, Q4H, Dosing Weight 60.909, kg, PRN Pain Score 4-6, Start date: 05/19/14 12:51:00, Duration: 30 day, Stop date: 06/18/14 12:50:00 Saline No Notes: Memoria Flush 0.9% 05-19 (Same as: l 18:51: BD Posiflush) Sodium No 1,000 mL, Memori a Chloride 05-19 Rate: 75 l 0.154 18:51: ml/hr, [place] MEQ/ML 00 Infuse Injectable over: 13.3 Solution hr, Route: IV, Dosing Weight 60.909 kg, Total Volume: 1,000, Start date: 05/19/14 12:51:00, Duration: 30 day, Stop date: 06/18/14 12:50:00 Ondansetron No Notes: Jhonathan jaime 05-19 (Same as: l 18:51: Zofran) [place] 00 Acetaminoph No Notes: Do M emoria en 05-19 not exceed l 18:51: 4 gm/day. [place] 00 (Same as: Tylenol) Morphine 0 No 2 mg, Memoria 05-19 Route: l 18:51: IVP, Q4H, Dosing Weight 60.909, kg, PRN Pain Score 4-6, Start date: 05/19/14 12:51:00, Duration: 30 day, Stop date: 06/18/14 12:50:00 Saline No Notes: Memoria Flush 0.9% 1-06 (Same as: l 18:51: BD [place] 00 Posiflush) Sodium 2014-0 No 1,000 mL, Memori a Chloride 05-19 Rate: 75 l 0.154 18:51: ml/hr, [place] MEQ/ML 00 Infuse Injectable over: 13.3 Solution hr, Route: IV, Dosing Weight 60.909 kg, Total Volume: 1,000, Start date: 05/19/14 12:51:00, Duration: 30 day, Stop date: 06/18/14 12:50:00 Ondansetron No Notes: Jhonathan jaime 05-19 (Same as: l 18:51: Zofran) Acetaminoph No Notes: Do M emoria en 05-19 not exceed l 18:51: 4 gm/day. (Same as: Tylenol) Morphine No 2 mg, Memoria 05-19 Route: l 18:51: IVP, Q4H, Dosing Weight 60.909, kg, PRN Pain Score 4-6, Start date: 05/19/14 12:51:00, Duration: 30 day, Stop date: 06/18/14 12:50:00 Sodium 2014-0 No 500 mL, Memoria Chloride 1-06 500 ml/hr, l 0.154 17:48: Infuse [place] MEQ/ML 00 Over: 1 Injectable hr, Route: Solution IV, ONCE, Priority: STAT, Dosing Weight 60.909 kg, Start date: 05/19/14 11:48:00, Duration: 1 doses or times, Stop date: 05/19/14 11:48:00 Sodium 2015-0 No 500 mL, Memoria Chloride 1-06 500 ml/hr, l 0.154 17:48: Infuse [place] MEQ/ML 00 Over: 1 Injectable hr, Route: Solution IV, ONCE, Priority: STAT, Dosing Weight 60.909 kg, Start date: 05/19/14 11:48:00, Duration: 1 doses or times, Stop date: 05/19/14 11:48:00 Sodium 2014-0 No 500 mL, Memoria Chloride 1-06 500 ml/hr, l 0.154 17:48: Infuse [place] MEQ/ML 00 Over: 1 Injectable hr, Route: Solution IV, ONCE, Priority: STAT, Dosing Weight 60.909 kg, Start date: 05/19/14 11:48:00, Duration: 1 doses or times, Stop date: 05/19/14 11:48:00 Promethazin 2014-0 No 12.5 mg, Me moria e 05-19 Route: l 17:32: IVPB, [place] 00 ONCE, Dosing Weight 60.909, kg, Start date: 05/19/14 11:32:00, Stop date: 05/19/14 11:32:00 Promethazin 2015-0 No 12.5 mg, Me moria e 05-19 Route: l 17:32: IVPB, [place] 00 ONCE, Dosing Weight 60.909, kg, Start date: 05/19/14 11:32:00, Stop date: 05/19/14 11:32:00 Promethazin 2015-0 No 12.5 mg, Me moria e 05-19 Route: l 17:32: IVPB, [place] 00 ONCE, Dosing Weight 60.909, kg, Start date: 05/19/14 11:32:00, Stop date: 05/19/14 11:32:00 Hydralazine No Notes: Jhonathan jaime 1-06 (Same as: l 16:11: Apresoline [place] ) Push over 5 minutes Hydralazine No Notes: Jhonathan jaime -06 (Same as: l 16:11: Apresoline [place] ) Push over 5 minutes Hydralazine No Notes: Jhonathan jaime 1-06 (Same as: l 16:11: Apresoline [place] ) Push over 5 minutes Acetaminoph No 1 tab, Jhonathan jaime en 325 MG / 05-19 Route: PO, l Hydrocodone 15:51: Drug Form: [place] Bitartrate 00 TAB, 5 MG Oral Dosing Tablet Weight [[place] 60.909, 5/325] kg, Q4H, PRN Pain, Start date: 05/19/14 9:51:00, Duration: 30 day, Stop date: 06/18/14 9:50:00 Acetaminoph No 1,000 mg, M emoria en 05-19 Route: l 15:51: IVPB, Drug [place] 00 form: INJ, ONCE, Dosing Weight 60.909, kg, PRN Pain Score 1-3, Start date: 05/19/14 9:51:00, Duration: 1 doses or times, Stop date: Limited # of times Ondansetron 2014-0 No 4 mg, Memor ia 05-19 Route: l 15:51: IVP, ONCE, Rocky Dosing Weight 60.909, kg, PRN Nausea & Vomiting, Start date: 05/19/14 9:51:00 Naloxone 2014-0 No 0.04 mg, Memor ia 05-19 Route: l 15:51: IVP, [place] 00 Q2MIN, Dosing Weight 60.909, kg, PRN Narcotic Reversal, Start date: 05/19/14 9:51:00, Duration: 8 doses or times, Stop date: Limited # of times Meperidine 2014-0 No 12.5 mg, Mem oria 05-19 Route: l 15:51: IVP, [place] 00 Q30Min, Dosing Weight 60.909, kg, PRN Other -See Comment, For shivering, Start date: 05/19/14 9:51:00, Duration: 2 doses or times, Stop date: Limited # of times Hydromorpho 2014-0 No 0.5 mg, Mem oria ne 05-19 Route: l 15:51: IVP, [place] 00 Q5Min, Dosing Weight 60.909, kg, PRN Pain Score 7-10, Start date: 05/19/14 9:51:00, Duration: 4 doses or times, Stop date: Limited # of times Flumazenil 2014-0 No 0.2 mg, Jhonathan jaime 05-19 Route: l 15:51: IVP, PRN, [place] 00 Dosing Weight 60.909, kg, PRN Benzodiaze pine Reversal, Initial dose, Start date: 05/19/14 9:51:00, Duration: 30 day, Stop date: 06/18/14 9:50:00 Fentanyl 2014-0 No 25 Memoria 1-06 microgram, l 15:51: Route: [place] 00 IVP, Q5Min, Dosing Weight 60.909, kg, PRN Pain Score 4-6, Start date: 05/19/14 9:51:00, Duration: 4 doses or times, Stop date: Limited # of times Acetaminoph 2015-0 No 1 tab, Jhonathan jaime en 325 MG / 05-19 Route: PO, l Hydrocodone 15:51: Drug Form: [place] Bitartrate 00 TAB, 5 MG Oral Dosing Tablet Weight [[place] 60.909, 5/325] kg, Q4H, PRN Pain, Start date: 05/19/14 9:51:00, Duration: 30 day, Stop date: 06/18/14 9:50:00 Acetaminoph 2014-0 No 1,000 mg, M emoria en 05-19 Route: l 15:51: IVPB, Drug [place] 00 form: INJ, ONCE, Dosing Weight 60.909, kg, PRN Pain Score 1-3, Start date: 05/19/14 9:51:00, Duration: 1 doses or times, Stop date: Limited # of times Ondansetron 2014-0 No 4 mg, Memor ia 05-19 Route: l 15:51: IVP, ONCE, [place] 00 Dosing Weight 60.909, kg, PRN Nausea & Vomiting, Start date: 05/19/14 9:51:00 Naloxone 2014-0 No 0.04 mg, Memor ia 05-19 Route: l 15:51: IVP, [place] 00 Q2MIN, Dosing Weight 60.909, kg, PRN [...] 2015-0 No 0.5 mg, Mem oria ne 05-19 Route: l 15:51: IVP, [place] 00 Q5Min, Dosing Weight 60.909, kg, PRN Pain Score 7-10, Start date: 05/19/14 9:51:00, Duration: 4 doses or times, Stop date: Limited # of times Flumazenil 2014-0 No 0.2 mg, Jhonathan jaime 05-19 Route: l 15:51: IVP, PRN, Rocky Dosing Weight 60.909, kg, PRN Benzodiaze pine Reversal, Initial dose, Start date: 05/19/14 9:51:00, Duration: 30 day, Stop date: 06/18/14 9:50:00 Fentanyl 2014-0 No 25 Memoria 1-06 microgram, l 15:51: Route: [place] 00 IVP, Q5Min, Dosing Weight 60.909, kg, PRN Pain Score 4-6, Start date: 05/19/14 9:51:00, Duration: 4 doses or times, Stop date: Limited # of times Acetaminoph 2014-0 No 1 tab, Jhonathan jaime en 325 MG / 05-19 Route: PO, l Hydrocodone 15:51: Drug Form: [place] Bitartrate 00 TAB, 5 MG Oral Dosing Tablet Weight [[place] 60.909, 5/325] kg, Q4H, PRN Pain, Start date: 05/19/14 9:51:00, Duration: 30 day, Stop date: 06/18/14 9:50:00 Acetaminoph 0 No 1,000 mg, M emoria en 05-19 Route: l 15:51: IVPB, Drug [place] 00 form: INJ, ONCE, Dosing Weight 60.909, kg, PRN Pain Score 1-3, Start date: 05/19/14 9:51:00, Duration: 1 doses or times, Stop date: Limited # of times Ondansetron 2014-0 No 4 mg, Memor ia 05-19 Route: l 15:51: IVP, ONCE, [place] Dosing Weight 60.909, kg, PRN Nausea & Vomiting, Start date: 05/19/14 9:51:00 Naloxone 2014-0 No 0.04 mg, Memor ia 05-19 Route: l 15:51: IVP, [place] 00 Q2MIN, Dosing Weight 60.909, kg, PRN Narcotic Reversal, Start date: 05/19/14 9:51:00, Duration: 8 doses or times, Stop date: Limited # of times Meperidine 2014-0 No 12.5 mg, Mem oria 05-19 Route: l 15:51: IVP, [place] 00 Q30Min, Dosing Weight 60.909, kg, PRN Other -See Comment, For shivering, Start date: 05/19/14 9:51:00, Duration: 2 doses or times, Stop date: Limited # of times Hydromorpho 2014-0 No 0.5 mg, Mem oria ne 05-19 Route: l 15:51: IVP, [place] 00 Q5Min, Dosing Weight 60.909, kg, PRN Pain Score 7-10, Start date: 05/19/14 9:51:00, Duration: 4 doses or times, Stop date: Limited # of times Flumazenil 2014-0 No 0.2 mg, Jhonathan jaime 05-19 Route: l 15:51: IVP, PRN, [place] 00 Dosing Weight 60.909, kg, PRN Benzodiaze pine Reversal, Initial dose, Start date: 05/19/14 9:51:00, Duration: 30 day, Stop date: 06/18/14 9:50:00 Fentanyl 2014-0 No 25 Memoria 1-06 microgram, l 15:51: Route: [place] 00 IVP, Q5Min, Dosing Weight 60.909, kg, PRN Pain Score 4-6, Start date: 05/19/14 9:51:00, Duration: 4 doses or times, Stop date: Limited # of times Ancef 2015-0 No 2 gm, Memoria 1- Route: l 14:12: IVPB, [place] 00 ONCE, Dosing Weight 60.909, kg, Start date: 05/19/14 8:12:00, Stop date: 05/19/14 8:12:00 Ancef 2015-0 No 2 gm, Memoria 1- Route: l 14:12: IVPB, [place] 00 ONCE, Dosing Weight 60.909, kg, Start date: 05/19/14 8:12:00, Stop date: 05/19/14 8:12:00 Ancef 2015-0 No 2 gm, Memoria 1-06 Route: l 14:12: IVPB, [place] 00 ONCE, Dosing Weight 60.909, kg, Start date: 05/19/14 8:12:00, Stop date: 05/19/14 8:12:00 heparin, 2015-0 No 5,000 Memoria porcine 1-06 unit, l 14:09: Route: [place] 00 SUB-Q, ONCE, Dosing Weight 60.909, kg, Start date: 05/19/14 8:09:00, Stop date: 05/19/14 8:09:00 heparin, 2015-0 No 5,000 Memoria porcine 1-06 unit, l 14:09: Route: [place] 00 SUB-Q, ONCE, Dosing Weight 60.909, kg, Start date: 05/19/14 8:09:00, Stop date: 05/19/14 8:09:00 heparin, 2015-0 No 5,000 Memoria porcine 1-06 unit, l 14:09: Route: [place] 00 SUB-Q, ONCE, Dosing Weight 60.909, kg, Start date: 05/19/14 8:09:00, Stop date: 05/19/14 8:09:00 Calcium 2014-0 No 1,000 mL, Mem[facility] ia Chloride 1-06 Rate: 25 l 0.0014 13:58: ml/hr, [place] MEQ/ML / 00 Infuse Potassium over: 40 Chloride hr, Route: 0.004 IV, Dosing MEQ/ML / Weight Sodium 60.909 kg, Chloride Total 0.103 Volume: MEQ/ML / 1,000, Sodium Start Lactate date: 0.028 05/19/14 MEQ/ML 7:58:00, Injectable Duration: Solution 30 day, Stop date: 06/18/14 7:57:00 Calcium 2014-0 No 1,000 mL, [facility] Chloride 1-06 Rate: 25 l 0.0014 13:58: ml/hr, [place] MEQ/ML / 00 Infuse Potassium over: 40 Chloride hr, Route: 0.004 IV, Dosing MEQ/ML / Weight Sodium 60.909 kg, Chloride Total 0.103 Volume: MEQ/ML / 1,000, Sodium Start Lactate date: 0.028 05/19/14 MEQ/ML 7:58:00, Injectable Duration: Solution 30 day, Stop date: 06/18/14 7:57:00 Calcium 2014-0 No 1,000 mL, Mem[facility] Chloride 1-06 Rate: 25 l 0.0014 13:58: ml/hr, [place] MEQ/ML / 00 Infuse Potassium over: 40 Chloride hr, Route: 0.004 IV, Dosing MEQ/ML / Weight Sodium 60.909 kg, Chloride Total 0.103 Volume: MEQ/ML / 1,000, Sodium Start Lactate date: 0.028 05/19/14 MEQ/ML 7:58:00, Injectable Duration: Solution 30 day, Stop date: 06/18/14 7:57:00 Sodium 2013-1 No 500 mL, Memoria Chloride 2-16 Rate: 25 l 0.154 13:51: ml/hr, [place] MEQ/ML 00 Infuse Injectable over: 20 Solution hr, Route: IV, Dosing Weight 60.909 kg, Total Volume: 500, Start date: 04/28/14 7:51:00, Duration: 30 day, Stop date: 05/28/14 7:50:00 Sodium 2013-1 No 500 mL, Mem[facility] Chloride 2-16 Rate: 25 l 0.154 13:51: ml/hr, [place] MEQ/ML 00 Infuse Injectable over: 20 Solution hr, Route: IV, Dosing Weight 60.909 kg, Total Volume: 500, Start date: 04/28/14 7:51:00, Duration: 30 day, Stop date: 05/28/14 7:50:00 Sodium 2013-1 No 500 mL, [facility] Chloride 2-16 Rate: 25 l 0.154 13:51: ml/hr, [place] MEQ/ML 00 Infuse Injectable over: 20 Solution hr, Route: IV, Dosing Weight 60.909 kg, Total Volume: 500, Start date: 04/28/14 7:51:00, Duration: 30 day, Stop date: 05/28/14 7:50:00 Ondansetron 2014-0 No 4 mg, [facility] 2-26 Route: l 20:12: IVP, Drug Rocky 00 form: INJ, ONCE, Dosing Weight 54.545, kg, Priority: STAT, Start date: 07/09/13 14:12:00, Stop date: 07/09/13 14:12:00 Ondansetron 2014-0 No 4 mg, [facility] 2-26 Route: l 20:12: IVP, Drug [place] 00 form: INJ, ONCE, Dosing Weight 54.545, kg, Priority: STAT, Start date: 07/09/13 14:12:00, Stop date: 07/09/13 14:12:00 Ondansetron 2014-0 No 4 mg, [facility] 2-26 Route: l 20:12: IVP, Drug [place] 00 form: INJ, ONCE, Dosing Weight 54.545, kg, Priority: STAT, Start date: 07/09/13 14:12:00, Stop date: 07/09/13 14:12:00 Morphine 2014-0 No 6 mg, Memoria 2-26 Route: l 19:38: IVP, ONCE, [place] 00 Dosing Weight 54.545, kg, Start date: 07/09/13 13:38:00, Stop date: 07/09/13 13:38:00 Morphine 2014-0 No 6 mg, [facility] 2-26 Route: l 19:38: IVP, ONCE, Rocky 00 Dosing Weight 54.545, kg, Start date: 07/09/13 13:38:00, Stop date: 07/09/13 13:38:00 Morphine 2014-0 No 6 mg, [facility] 2-26 Route: l 19:38: IVP, ONCE, [place] 00 Dosing Weight 54.545, kg, Start date: 07/09/13 13:38:00, Stop date: 07/09/13 13:38:00 Sodium 2014-0 No 1,000 mL, Memori a Chloride 2-26 Rate: 75 l 0.154 19:36: ml/hr, [place] MEQ/ML 00 Infuse Injectable over: 13.3 Solution [...] Stop date: 07/09/13 14:35:00, Bolus DoseBolus Dose Sodium 2014-0 No 1,000 mL, Memori a Chloride 2-26 Rate: 75 l 0.154 19:36: ml/hr, [place] MEQ/ML 00 Infuse Injectable over: 13.3 Solution [...] Stop date: 07/09/13 14:35:00, Bolus DoseBolus Dose Sodium 2014-0 No 1,000 mL, Memori a Chloride 2-26 Rate: 75 l 0.154 19:36: ml/hr, [place] MEQ/ML 00 Infuse Injectable over: 13.3 Solution hr, Route: IV, Dosing Weight 54.545 kg, Total Volume: 1,000, Priority: STAT, Start date: 07/09/13 13:36:00, Duration: 1 doses or times, Stop date: 07/10/13 2:53:00 Sodium 2014-0 No 1,000 mL, Memori a Chloride 2-26 Rate: l 0.9% 19:36: 1,000 [place] (Bolus) IV 00 ml/hr, 1,000 mL Infuse over: 1 hr, Route: IV, Dosing Weight 54.545 kg, Total Volume: 1,000, Priority: STAT, Start date: 07/09/13 13:36:00, Duration: 1 doses or times, Stop date: 07/09/13 14:35:00, Bolus DoseBolus Dose Labetalol 2014-0 Yes 20 mg, 4 Jhonathan jaime 2-26 mL, Route: l 18:35: IVP, Drug [place] 00 form: INJ, ONCE, Dosing Weight 54.545, kg, Start date: 07/09/13 12:35:00, Stop date: 07/09/13 12:35:00(S laine as: Normodyne, Trandate) Push over 2 minutes Give bolus over 2-3 minutes. Labetalol 2014-0 Yes 20 mg, 4 Jhonathan jaime 2-26 mL, Route: l 18:35: IVP, Drug [place] 00 form: INJ, ONCE, Dosing Weight 54.545, kg, Start date: 07/09/13 12:35:00, Stop date: 07/09/13 12:35:00(S laine as: Normodyne, Trandate) Push over 2 minutes Give bolus over 2-3 minutes. Labetalol 2014-0 Yes 20 mg, 4 Jhonathan jaime 2-26 mL, Route: l 18:35: IVP, Drug [place] 00 form: INJ, ONCE, Dosing Weight 54.545, kg, Start date: 07/09/13 12:35:00, Stop date: 07/09/13 12:35:00(S laine as: Normodyne, Trandate) Push over 2 minutes Give bolus over 2-3 minutes. Ondansetron 2013-0 No 4 mg, [facility] 2- Route: l 17:03: IVP, Drug [place] 00 form: INJ, ONCE, Dosing Weight 54.545, kg, Priority: STAT, Start date: 07/09/13 11:03:00, Stop date: 07/09/13 11:03:00 Morphine 2014-0 No 4 mg, Memoria 2- Route: l 17:03: IVP, ONCE, [place] 00 Dosing Weight 54.545, kg, Priority: STAT, Start date: 07/09/13 11:03:00, Stop date: 07/09/13 11:03:00 Sodium 2014-0 No 1,000 mL, Memori a Chloride 2- Rate: l 0.9% 17:03: 1,000 [place] (Bolus) IV 00 ml/hr, 1,000 mL Infuse over: 1 hr, Route: IV, Dosing Weight 54.545 kg, Total Volume: 1,000, Priority: STAT, Start date: 07/09/13 11:03:00, Duration: 1 doses or times, Stop date: 07/09/13 12:02:00, Bolus DoseBolus Dose Sodium 2014-0 No 1,000 mL, Memori a Chloride 2-26 Rate: 75 l 0.154 17:03: ml/hr, [place] MEQ/ML 00 Infuse Injectable over: 13.3 Solution hr, Route: IV, Dosing Weight 54.545 kg, Total Volume: 1,000, Priority: STAT, Start date: 07/09/13 11:03:00, Duration: 1 doses or times, Stop date: 07/10/13 0:20:00 Ondansetron 2014-0 No 4 mg, [facility] 2-26 Route: l 17:03: IVP, Drug [place] form: INJ, ONCE, Dosing Weight 54.545, kg, Priority: STAT, Start date: 07/09/13 11:03:00, Stop date: 07/09/13 11:03:00 Morphine 2014-0 No 4 mg, [facility] 2-26 Route: l 17:03: IVP, ONCE, [place] 00 Dosing Weight 54.545, kg, Priority: STAT, [...] 2-26 Rate: 75 l 0.154 17:03: ml/hr, [place] MEQ/ML 00 Infuse Injectable over: 13.3 Solution hr, Route: IV, Dosing Weight 54.545 kg, Total Volume: 1,000, Priority: STAT, Start date: 07/09/13 11:03:00, Duration: 1 doses or times, Stop date: 07/10/13 0:20:00 Ondansetron 2013-0 No 4 mg, [facility] 2- Route: l 17:03: IVP, Drug [place] 00 form: INJ, ONCE, Dosing Weight 54.545, kg, Priority: STAT, Start date: 07/09/13 11:03:00, Stop date: 07/09/13 11:03:00 Morphine 2014-0 No 4 mg, [facility]oria 2- Route: l 17:03: IVP, ONCE, [place] 00 Dosing Weight 54.545, kg, Priority: STAT, Start date: 07/09/13 11:03:00, Stop date: 07/09/13 11:03:00 Sodium 2014-0 No 1,000 mL, Memori a Chloride 07-09 Rate: l 0.9% 17:03: 1,000 [place] (Bolus) IV 00 ml/hr, 1,000 mL Infuse over: 1 hr, Route: IV, Dosing Weight 54.545 kg, Total Volume: 1,000, Priority: STAT, Start date: 07/09/13 11:03:00, Duration: 1 doses or times, Stop date: 07/09/13 12:02:00, Bolus DoseBolus Dose Sodium 2014-0 No 1,000 mL, Memori a Chloride - Rate: 75 l 0.154 17:03: ml/hr, [place] MEQ/ML 00 Infuse Injectable over: 13.3 Solution hr, Route: IV, Dosing Weight 54.545 kg, Total Volume: 1,000, Priority: STAT, Start date: 07/09/13 11:03:00, Duration: 1 doses or times, Stop date: 07/10/13 0:20:00 Omeprazole 2012-0 Yes (Active) Me moria 20 MG Oral 6-05 l Capsule 00:06: Rocky Delayed 10 Release Lisinopril 2012- Yes (Active) Me moria 20 MG Oral [...] of 3 viruses H1N1, H3N2, and 3,11 influenza 2009-05 No SYSTEM 0.5 ml, Mem oria virus 0-02 SYSTEM Route: IM, l vaccine, 04:00: Drug Form: Her garnett inactivated 00 INJ, ONCALL, Start date: 02/11/10 23:00:00, Duration: 1 doses or timesSame as: Fluvirin Contains 15 mcg of influenza virus antigen from each of 3 viruses H1N1, H3N2, and 3,11 influenza 2009-05 No SYSTEM 0.5 ml, Mem oria virus 0-02 SYSTEM Route: IM, l vaccine, 04:00: Drug Form: Her garnett inactivated 00 INJ, ONCALL, Start date: 02/11/10 23:00:00, Duration: 1 doses or timesSame as: Fluvirin Contains 15 mcg of influenza virus antigen from each of 3 viruses H1N1, H3N2, and 3,11 pneumococca 2009-0 No SYSTEM 0.5 ml, M emoria l 23-valent 9-03 SYSTEM Route: IM, l vaccine 14:00: Drug Form: Herm steph 00 INJ, Start date: 01/14/10 9:00:00, Stop date: 01/14/10 9:00:00 pneumococca 2009-0 No SYSTEM 0.5 ml, M emoria l 23-valent 9-03 SYSTEM Route: IM, l vaccine 14:00: Drug Form: Herm steph 00 INJ, Start date: 01/14/10 9:00:00, Stop date: 01/14/10 9:00:00 pneumococca 2009-0 No SYSTEM 0.5 ml, M emoria l 23-valent 9-03 SYSTEM Route: IM, l vaccine 14:00: Drug Form: Herm steph 00 INJ, Start date: 01/14/10 9:00:00, Stop date: 01/14/10 9:00:00 pneumococca 2008- No SYSTEM 0.5 ml, M emoria l 23-valent 0-18 SYSTEM Route: IM, l vaccine 04:16: Drug Form: Herm steph 57 INJ, ONCALL, Start date: 02/27/09 23:16:57, Stop date: 03/29/09 23:11:57(S laine as: PNU-IMUNE 23) pneumococca 2008-05 No SYSTEM 0.5 ml, M emoria l 23-valent 0-18 SYSTEM Route: IM, l vaccine 04:16: Drug Form: Herm steph 57 INJ, ONCALL, Start date: 02/27/09 23:16:57, Stop date: 03/29/09 23:11:57(S laine as: PNU-IMUNE 23) pneumococca 2008-05 No SYSTEM 0.5 ml, M emoria l 23-valent 0-18 SYSTEM Route: IM, l vaccine 04:16: Drug Form: Herm steph 57 INJ, ONCALL, Start date: 02/27/09 23:16:57, Stop date: 03/29/09 23:11:57(S laine as: PNU-IMUNE 23) Fish Oil Fish Oil Yes Univers CAPS [...] exas Delayed Delayed Physici Release Release ans Aspirin 81 Aspirin 81 Yes Gaudencio 1 tablet [facility] Immunizations Ordered Immunization Filled Immunization Date Status Commen ts Source Name Name [id number]-2020-08-20 Completed Jhonathan rial NA-1273vaxMODERNA 00:00:00 [place] [id number]-2020-08-20 Completed Jhonathan rial NA-1273vaxMODERNA 00:00:00 [place] [id number]-2020-08-20 Completed Jhonathan rial NA-1273vaxMODERNA 00:00:00 [place] [id number] 2020-08-06 Completed Jhonathan rial NA-1273vaxMODERNA 00:00:00 [place] [id number] 2020-08-06 Completed Jhonathan rial NA-1273vaxMODERNA 00:00:00 [place] [id number] 2020-08-06 Completed Jhonathan rial NA-1273vaxMODERNA 00:00:00 [place] influenza virus 2010-02-11 Completed [facility] vaccine, inactivated 17:00:00 [facility] steph influenza virus 2010-02-11 Completed [facility] vaccine, inactivated 17:00:00 [facility] steph influenza virus 2010-02-11 Completed [facility] vaccine, inactivated 17:00:00 [facility] steph influenza virus 2010-02-11 Completed [facility] vaccine, inactivated 17:00:00 [facility] steph influenza virus 2010-02-11 Completed [facility] vaccine, inactivated 17:00:00 [facility] steph influenza virus 2010-02-11 Completed [facility] vaccine, inactivated 17:00:00 [facility] steph pneumococcal 2009-02-28 Completed [facility] 23-valent vaccine 22:05:00 [place] pneumococcal 2009-02-28 Completed [facility] 23-valent vaccine 22:05:00 [place] pneumococcal 2009-02-28 Completed [facility] 23-valent vaccine 22:05:00 [place] pneumococcal 2009-02-28 Completed [facility] 23-valent vaccine 22:05:00 [place] pneumococcal 2009-02-28 Completed [facility] 23-valent vaccine 22:05:00 [place] pneumococcal 2009-02-28 Completed [facility] 23-valent vaccine 22:05:00 [place] Vital Signs Vital Name Observation Time Observation Value Comments Source Systolic blood 2021-07-12 136 mm[Hg] [facility] of pressure 18:53:00 [facility] Diastolic blood 2021-07-12 61 mm[Hg] University o f pressure 18:53:00 [facility] Heart rate 2021-07-12 68 /min University of 18:53:00 [facility] Body height 2021-07-12 152.4 cm University of 18:53:00 [facility] Body weight 2021-07-12 60.918 kg University of 18:53:00 [facility] BMI 2021-07-12 26.23 kg/m2 University of 18:53:00 [facility] Oxygen saturation 2021-07-12 99 /min [facility] in Arterial blood 18:53:[address] [facility] by Pulse oximetry Branch Systolic (mm Hg) 2020-10-27 [facility] 16:07:00 Diastolic (mm Hg) 2020-10-27 [facility] ermann 16:07:00 Heart Rate 2020-10-27 [facility] Obi n 16:07:00 Respitory Rate 2020-10-27 [facility] steph 16:07:00 Height 2020-10-27 149.86 cm [facility] Obi n 16:07:00 Weight 2020-10-27 [facility] 16:07:00 BMI Calculated 2020-10-27 [facility] 16:07:00 Systolic (mm Hg) 2020-08-27 [facility] rmann 16:40:00 Diastolic (mm Hg) 2020-08-27 [facility] ermann 16:40:00 Heart Rate 2020-08-27 [facility] Obi n 16:40:00 Respitory Rate 2020-08-27 [facility]ph 16:40:00 Weight 2020-08-27 [facility] n 16:40:00 Systolic (mm Hg) 2020-06-25 [facility] rmann 20:23:00 Diastolic (mm Hg) 2020-06-25 [facility] ermann 20:23:00 Heart Rate 2020-06-25 [facility] n 20:23:00 Respitory Rate 2020-06-25 [facility] 20:23:00 Height 2020-06-25 144.78 cm [facility] n 20:23:00 Weight 2020-06-25 [facility] 20:23:00 BMI Calculated 2020-06-25 [facility] 20:23:00 BP Systolic 2019-04-09 146 mm[Hg] Location: [facility]; [facility] 14:07:00 Position: [place] [facility] BP Diastolic 2019-04-09 82 mm[Hg] Location: [facility]; [facility] 14:07:00 Position: [place] [facility] Height 2019-04-09 61 [in_us] University 14:07:00 [place] [facility] Weight 2019-04-09 134.5 [lb_av] [facility] 14:07:00 [place] [facility] Body Mass Index 2019-04-09 25.41 kg/m2 University o f Calculated 14:07:00 [place] [facility] Temperature 2019-04-09 98.2 [degF] Method: Oral [facility] 14:07:00 [place] [facility] Heart Rate 2019-04-09 61 /min [facility] 14:07:00 [place] [facility] Respiration Rate 2019-04-09 18 /min [place] of 14:07:00 [place] [facility] O2 SAT 2019-04-09 98 % Source: [place] of 14:07:00 [place] [facility] Respitory Rate 2019-04-08 [facility] 20:00:00 Systolic (mm Hg) 2019-04-08 [facility] 20:00:00 Diastolic (mm Hg) 2019-04-08 [facility] 20:00:00 Respitory Rate 2019-04-08 [facility]ph 19:45:00 Systolic (mm Hg) 2019-04-08 [facility] 19:45:00 Diastolic (mm Hg) 2019-04-08 [facility] 19:45:00 Respitory Rate 2019-04-08 [facility] steph 19:44:00 Systolic (mm Hg) 2019-04-08 [facility] Elvin rmann 19:44:00 Diastolic (mm Hg) 2019-04-08 [facility] Darling ermann 19:44:00 Weight 2019-04-08 Fabiano Beardan n 17:30:00 BMI Calculated 2019-04-08 [facility]ph 17:30:00 Heart Rate 2019-04-08 Fabiano Crocker n 17:30:00 Height 2019-04-07 154.94 cm Fabiano Crocker n 19:22:00 BP Systolic 2019-03-19 145 mm[Hg] Location: [facility] 15:20:00 Position: [place] [facility] BP Diastolic 2019-03-19 72 mm[Hg] Location: [facility] 15:20:00 Position: [place] [facility] Weight 2019-03-19 136.8 [lb_av] [place] of 15:20:00 [place] [facility] Body Mass Index 2019-03-19 25.85 kg/m2 University o f Calculated 15:20:00 [place] [facility] Heart Rate 2019-03-19 61 /min [facility] 15:20:00 [place] [facility] Respiration Rate 2019-03-19 18 /min [place] of 15:20:00 [place] [facility] O2 SAT 2019-03-19 99 % Source: [place] of 15:20:00 [place] [facility] BP Systolic 2018-03-05 133 mm[Hg] Location: [facility] 12:45:00 Position: [place] [facility] Sitting BP Diastolic 2018-03-05 68 mm[Hg] [facility] 12:45:00 Position: [place] [facility] Height 2018-03-05 61 [in_us] [facility] 12:45:00 [place] [facility] Weight 2018-03-05 134.2 [lb_av] University 12:45:00 [place] [facility] Body Mass Index 2018-03-05 25.36 kg/m2 University o f Calculated 12:45:00 [place] [facility] Heart Rate 2018-03-05 68 /min Location: [facility] 12:45:00 Brachial [place] [facility] Artery; Respiration Rate 2018-03-05 18 /min [facility] 12:45:00 [place] [facility] BP Systolic 2017-12-31 182 mm[Hg] [facility] 09:49:00 Position: [place] [facility] S[facility] BP Diastolic 2017-12-31 72 mm[Hg] [facility] 09[facility]49:00 Position: [place] [facility] Height 2017-12-31 61 [in_us] [facility] 09:49:00 [place] [facility] Weight 2017-12-31 132 [lb_av] [facility] 09:49:00 [place] [facility] Body Mass Index 2017-12-31 24.94 kg/m2 University o f Calculated 09:49:00 [place] [facility] Heart Rate 2017-12-31 62 /min Location: [facility] 09:49:00 Radial; [place] [facility] Quality: Normal BP Systolic 2017-11-29 148 mm[Hg] [facility] 13:09:00 Position: [place] [facility] S[facility] BP Diastolic 2017-11-29 76 mm[Hg] Location: [facility] 13:09:00 Position: [place] [facility] S[facility] Height 2017-11-29 61 [in_us] [place] of 13:09:00 [place] [facility] Weight 2017-11-29 131 [lb_av] [place] [facility] 13:09:00 [place] [facility] Body Mass Index 2017-11-29 24.75 kg/m2 University o f Calculated 13:09:00 [place] [facility] Temperature 2017-11-29 98.2 [degF] Method: Oral [facility] 13:09:00 [place] [facility] Heart Rate 2017-11-29 64 /min Location: [facility] 13:09:00 Brachial [place] [facility] Artery; Respiration Rate 2017-11-29 18 /min [facility] 13:09:00 [place] [facility] Systolic (mm Hg) 2017-11-22 [facility] 21:10:00 Diastolic (mm Hg) 2017-11-22 [facility] 21:10:00 Systolic (mm Hg) 2017-11-22 [facility] 20:45:00 Diastolic (mm Hg) 2017-11-22 [facility] 20:45:00 Respitory Rate 2017-11-22 [facility] 20:45:00 Systolic (mm Hg) 2017-11-22 [facility] 20:30:00 Diastolic (mm Hg) 2017-11-22 [facility] 20:30:00 Respitory Rate 2017-11-22 [facility] 20:30:00 Respitory Rate 2017-11-22 [facility] 20:15:00 Heart Rate 2017-11-22 Fabiano Beardan n 14:55:00 BMI Calculated 2017-11-22 [facility] 14:55:00 Weight 2017-11-22 Fabiano Beardan n 14:55:00 Height 2017-11-20 154.94 cm Fabiano Crocker n 18:07:00 BP Systolic 2017-11-13 175 mm[Hg] [facility] 12:56:00 Position: [place] [facility] BP Diastolic 2017-11-13 76 mm[Hg] [facility] 12[facility]56:[facility] Position: [place] [facility] Height 2017-11-13 61 [in_us] [facility] of 12:56:00 [place] [facility] Weight 2017-11-13 133 [lb_av] [facility] 12:56:00 [place] [facility] Body Mass Index 2017-11-13 25.13 kg/m2 University o f Calculated 12:56:00 [place] [facility] Temperature 2017-11-13 97.7 [degF] Method: Oral [facility] 12:56:00 [place] [facility] Heart Rate 2017-11-13 60 /min [facility] 12:56:00 [place] [facility] BP Systolic 2017-10-19 147 mm[Hg] Location: [facility] 13:36:00 Position: [place] [facility] Sitting BP Diastolic 2017-10-19 66 mm[Hg] Location: [place]; [facility] 13:36:00 Position: [place] [facility] Height 2017-10-19 61 [in_us] University 13:36:00 [place] [facility] Weight 2017-10-19 131 [lb_av] University 13:36:00 [place] [facility] Body Mass Index 2017-10-19 24.75 kg/m2 University o f Calculated 13:36:00 [place] [facility] Temperature 2017-10-19 97.7 [degF] Method: Oral [facility] 13:36:00 [place] [facility] Heart Rate 2017-10-19 61 /min Location: L [facility] 13:36:00 Radial; [place] [facility] Systolic (mm Hg) 2017-03-01 [facility] 21:24:00 Diastolic (mm Hg) 2017-03-01 [facility] ermann 21:24:00 Temperature Oral 2017-03-01 99.0 F [facility] (F) 21:24:00 Heart Rate 2017-03-01 [facility] [...] 2017-02-22 152.4 cm [facility] 17:56:00 Systolic (mm Hg) 2017-02-14 [facility] 20:32:00 Diastolic (mm Hg) 2017-02-14 [facility] 20:32:00 Respitory Rate 2017-02-14 [facility] 20:32:00 [...] 18:16:00 Temperature Oral 2016-02-07 98.1 F [facility] (F) 18:16:00 BMI Calculated 2016-02-07 [facility] 18:13:00 Weight 2016-02-07 [facility] n 18:13:00 [...] 14:43:00 Temperature Oral 2015-09-28 97.9 F [facility] (F) 14:40:00 Heart Rate 2015-09-28 [facility] 14:40:00 Systolic (mm Hg) 2015-07-07 [facility] 21:44:00 Diastolic (mm Hg) 2015-07-07 [facility] 21:44:00 Respitory Rate 2015-07-07 [facility] 21:44:00 Temperature Oral 2015-07-07 98.4 F [facility] (F) 21:44:00 Heart Rate 2015-07-07 Memorial [...] H ermann 17:24:00 Systolic (mm Hg) 2013-07-09 [facility] 17:24:00 Respitory Rate 2013-07-09 [facility] 17:24:00 Weight 2013-07-09 [facility] 16:27:00 Height 2013-07-09 154.94 cm [facility] 16:27:00 BMI Calculated 2013-07-09 [facility] 16:27:00 Heart Rate 2013-07-09 [facility] n 16:27:00 Temperature Oral 2013-07-09 97.8 F [facility] (F) 16:27:00 Respitory Rate 2012-12-23 [facility] 14:45:00 Systolic (mm Hg) 2012-12-23 [facility] 14:45:00 Diastolic (mm Hg) 2012-12-23 [facility] 14:45:00 Respitory Rate 2012-12-23 [facility] 14:30:00 Systolic (mm Hg) 2012-12-23 [facility] 14:30:00 Diastolic (mm Hg) 2012-12-23 [facility] 14:30:00 Respitory Rate 2012-12-23 [facility] 14:17:00 Diastolic (mm Hg) 2012-12-23 [facility] 14:17:00 Systolic (mm Hg) 2012-12-23 [facility] 14:17:00 Weight 2012-12-20 [facility] 20:19:00 Height 2012-12-20 154.94 cm [facility] 20:19:00 Procedures Procedure Date / Time Performing Clinician Source Performed Stent removal 2015-09-28 05:00:00 Fabiano garnett Esophagogastroduodenoscopy 2014-08-11 05:00:00 Mauricio Hidalgo <sup>8</sup> Operation 2014-05-14 00:00:00 Fabiano garnett Lloyd fundoplication 2010-01-13 05:00:00 Joseamber beebe Rocky Lloyd fundoplication 2010-01-13 05:00:00 Princess abiel Rocky History of Laparosc 2010-01-12 00:00:00 [facility] Esophagogastric Physicians Fundoplasty For Paraesoph Hernia Repair W/ Mesh History of Pacemaker 2004-08-12 00:00:00 [facility] Placement Physicians History of Cholecystectomy 1993-05-14 00:00:00 [facility] Laparoscopic Physicians Colon operation 1991-05-14 00:00:00 Fabiano garnett <sup>5</sup> Colon 1991-05-14 00:00:00 [facility] Her garnett operation<sup>1</sup> History of Total Abdominal 1981-05-14 00:00:00 [facility] Colectomy Physicians History of Hysterectomy 1977-05-14 00:00:00 [facility] Physicians Hysterectomy<sup>6</sup> Kd cabrera [place] Insertion of esophageal [facility] [place] stent<sup>9</sup> Laparoscopic [facility] [place] cholecystectomy<sup>9</sup > Appendectomy <sup>1</sup> Princess al [place] Breast operation [facility] <sup>2</sup> Cardiac pacemaker [facility] Adela nn procedure <sup>3</sup> section [facility] Obi n <sup>4</sup> Hysterectomy <sup>6</sup> Memori [facility] [place] Laparoscopic [facility] [place] cholecystectomy <sup>7</sup> [facility] [place] section<sup>5</sup> Knee replacement [facility] Obi n Appendectomy<sup>2</sup> Memoria l [place] Breast [facility] [place] operation<sup>3</sup> Cardiac pacemaker [facility] Adela nn procedure<sup>4</sup> Colonoscopy<sup>7</sup> [facility] [place] Encounters Start End Encounter Admission Attending Care Care Encounter Source Date/Time Date/Time Type Type Clinicians Facility Department ID 2019-03-21 Outpatient MHSE MHSE [id number] MH 14:01:16 [facility] 2018-10-16 Outpatient MHSE RODRIGUE [id number] MH 15:44:11 [facility] 2021-07-15 2021-07-15 [id number] Univers 00:00:00 00:00:00 [place] [id number] it y of VICHY [id number] Otilio as MASOUD?BLEA [phone] [place] fernanda [address] OFFICE [facility] 2021-07-12 2021-07-12 [id number] [facility] 13:00:00 13:45:47 [facility] 2021-07-12 2021-07-12 [facility] [id number] Univers 13:00:00 13:15:00 Visit [facility] [id number] it y of VICHY [id number] Otilio as MASOUD?BLEA [id number] [place] dicabiel [address] OFFICE [facility] 2021-01-27 2021-01-27 Outpatient MHIE IE [id number] Memoria 11:00:00 11:00:00 08 [facility] 2020-10-27 2020-10-28 Outpatient nullFlavo MNA [id number] Memoria 16:30:00 04:59:59 r Neurology 07 l [facility] 2020-08-27 2020-08-28 Outpatient nullFlavo MNA [id number] Memoria 16:30:00 04:59:59 r Neurology 06 l [facility] 2020-08-17 2020-08-18 Outpatient nullFlavo [facility] [id number] Memoria 15:36:00 04:59:00 r Rocky 57 l [facility] 2020-08-17 2020-08-17 Outpatient NANCY [facility] [id number] [facility] 10:36:00 23:59:00 BEBETO 2020-07-30 2020-07-30 Ambulatory nullFlavo MNA [id number] Memoria 15:45:00 15:45:00 Pre-Reg r Neurology 05 l Amirah Hidalgo 2020-07-22 2020-07-24 Outside nullFlavo MNA [id number] Memoria 19:10:08 05:59:59 Medical r Neurology 02 l Records Amirah Hidalgo 2020-07-16 2020-07-16 Ambulatory nullFlavo MNA [id number] Memoria 19:30:00 19:30:00 Pre-Reg r Neurology 03 l Amirah Hidlago 2020-07-07 2020-07-09 Outside nullFlavo MNA [id number] Memoria 20:33:59 05:59:59 Medical r Neurology 01 l Records Amirah Hidalgo 2020-07-07 2020-07-09 Outside nullFlavo MNA [id number] Memoria 20:32:33 05:59:59 Medical r Neurology 00 l Records Amirah Hidalgo 2020-06-25 2020-06-26 Outpatient nullFlavo MNA [id number] Memoria 22:15:00 05:59:59 r Neurology 04 l Amirah Hidalgo 2020-06-03 2020-06-03 Telephone [facility] [id number] 00:00:00 00:00:00 [facility] [id number] Surgical [id number] Special [id number] [address] [place] 2020-03-12 2020-03-12 Outpatient [facility] [id number] [place] 00:00:00 00:00:00 SAMEER 632 Method i 2019-12-31 2019-12-31 Outpatient [facility] [id number] [place] 00:00:00 00:00:00 SAMEER 570 [facility] 2019-12-31 2019-12-31 Outpatient [facility] [id number] [place] 00:00:00 00:00:00 SAMEER 000 Method i 2019-05-20 2019-05-21 Outpatient nullFlavo [facility] [id number] Memoria 14:43:00 05:59:00 r Rocky 56 l [facility] 2019-05-20 2019-05-20 Outpatient MHSE MHSE [id number] MH 08:43:00 08:43:00 [facility] 2019-04-09 2019-04-09 Appointmen CHARY DANIEL Thoracic [id number] Univers 14:00:00 14:00:00 t; OLE DANIEL Surgery - itEran Bah M.D. Physici ans 2019-04-08 2019-04-08 Bedded [facility] [id number] Memoria 16:02:00 20:30:00 Outpatient r Rocky 55 l [facility] 2019-04-07 2019-04-08 Outpatient [facility] [id number] Memoria 16:26:00 05:59:00 r Rocky 54 l [facility] 2019-03-19 2019-03-19 [facility] [id number] Univers 15:00:00 15:00:00 t; OLE DANIEL [place] Eran HANDY [facility] Doris moreno M.D. Physici ans 2019-03-05 2019-03-05 [facility] BRISENO [facility] [id number] Univers 10:45:00 10:45:00 t; Eran MATTHEW [place], [place] Eran MATTHEW Physi ans 2019-02-12 2019-02-12 Outpatient Janie Duval [id number] 14:00:00 14:00:00 [facility] 2019-02-03 2019-02-03 [facility] [id number] 09:00:00 09:00:00 t [facility]ics 2018-10-30 2018-10-30 [facility] [id number] 15:00:00 15:00:00 t [facility] ent Clinics 2018-10-25 2018-10-25 [facility] [id number] 08:30:00 08:30:00 t [facility] ent Clinics 2018-10-23 2018-10-24 Outpatient [facility] [id number] Memoria 19:23:00 04:59:00 [place] 53 [facility] 2018-08-26 2018-08-26 [facility] [id number] 14:30:00 14:30:00 t [facility] ent [facility] 2018-05-13 2018-05-13 [facility] [id number] 14:30:00 14:30:00 t [facility] ent [facility] 2018-05-01 2018-05-01 [facility] [id number] 09:30:00 09:30:00 t [facility] 2018-03-05 2018-03-[facility] [id number] [facility] 13:15:00 13:15:00 t; [place] [address] [place] MATTHEW M.D. Physi ci ans 2018-03-05 2018-03-05 [facility] [id number] [facility] 13:15:00 13:15:00 t; [place]W [place] Eran MATTHEW Physi ci ans 2017-12-31 2017-12-31 [facility] [id number] Univers 09:45:00 09:45:00 t; [facility] Feliciano MATTHEW M.D. Physi ci ans 2017-11-29 2017-11-30 Outpatient [facility] [id number] Memoria 15:54:00 04:59:00 r [place] 00 [facility] 2017-11-29 2017-11-29 [facility] [id number] [facility] 14:15:00 14:15:00 t; Eran MATTHEW Multi-Speci it of [facility] [address] [place] MATTHEW Physi ci ans 2017-11-22 2017-11-23 Day nullFlavo [facility] [id number] Memoria 13:47:00 04:59:00 Surgery [place] [facility] l [facility] [place] 2017-11-13 2017-11-13 Appointmen CHARY MCAMHAN [place] [id number] Univers 14:00:00 14:00:00 t; ROBERT MCMAHAN M.D. Surgery ity of Eran JONES Specialty Otilio as Physici ans 2017-10-19 2017-10-19 Appointmen FINN, [facility] UTP [id number] Univers 13:30:00 13:30:00 t; Eran MATTHEW of [place], [place] Eran MATTHEW Physi ci ans 2017-08-01 2017-08-02 Outpatient [facility] [id number] Memoria 17:40:00 04:59:00 r [place] 80 l [facility] 2017-07-10 2017-07-11 Outpatient nullFlavo [facility] [id number] Memoria 18:00:00 05:59:00 r Rocky 51 l [facility] 2017-05-21 2017-05-22 Outpatient nullFlavo [facility] [id number] Memoria 17:13:00 05:59:00 r [place] 50 l [facility] 2017-02-27 2017-03-01 Inpatient nullFlavo [facility] [id number] Memoria 11:18:00 23:53:00 r [place] 48 l [facility] 2017-02-14 2017-02-14 Bedded nullFlavo [facility] [id number] Memoria 16:21:00 22:15:00 Outpatient r [place] 49 l [facility] 2017-02-12 2017-02-12 [facility] UTP [id number] Univers 08:00:00 08:00:00 t; Eran MATTHEW [place], [place] Eran MATTHEW Physi ci ans 2016-09-14 2016-09-14 [facility] UTP [id number] Univers 10:15:00 10:15:00 t; Eran MATTHEW [place], [place] Eran MATTHEW Physi ci ans 2016-08-23 2016-08-23 Bedded nullFlavo [facility] [id number] Memoria 15:45:00 19:26:00 Outpatient r [place] 47 l [facility] 2016-06-27 2016-06-27 [facility] [id number] Univers 14:00:00 14:00:00 t; Eran MATTHEW [place], [place] Eran MATTHEW Physi ci ans 2016-06-22 2016-06-23 Outpatient nullFlavo [facility] [id number] Memoria 12:54:00 05:59:00 r [place] 46 l [facility] 2016-06-19 2016-06-19 Bedded nullFlavo [facility] [id number] Memoria 14:36:00 18:55:00 Outpatient r Rocky 45 l [facility] 2016-06-14 2016-06-15 Outpatient nullFlavo [facility] [id number] Memoria 18:51:00 05:59:00 r [place] 44 l [facility] 2016-03-28 2016-03-29 Outpatient nullFlavo [facility] [id number] Memoria 18:40:00 05:59:00 r [place] 43 [facility] 2016-02-21 2016-02-21 Outpatient MHIE MHIE [id number] Memoria 15:15:00 15:15:00 02 l [place] 2016-02-21 2016-02-21 Outpatient MHIE MHIE [id number] Memoria 14:30:00 14:30:00 01 l [place] 2016-02-15 2016-02-15 Bedded nullFlavo [facility] [id number] Memoria 12:35:00 16:29:00 Outpatient r Rocky 42 l [facility] 2015-09-28 2015-09-28 Bedded nullFlavo [facility] [id number] Memoria 14:13:00 20:30:00 Outpatient r [place] 40 l [facility] 2015-07-27 2015-07-28 Outpatient nullFlavo [facility] [id number] Memoria 15:51:00 04:59:00 r [place] 75 l [facility] 2015-07-06 2015-07-07 OBS nullFlavo [facility] [id number] Memoria 22:33:00 22:10:00 Observatio r Rocky 54 l n Patient [facility] 2015-07-06 2015-07-07 Outpatient nullFlavo [facility] [id number] Memoria 18:13:00 05:59:00 r Rocky 39 l [facility] 2015-07-02 2015-07-02 OBS Day nullFlavo [facility] [id number] Memoria 16:44:00 23:22:00 Surgery r [place] 38 l [facility] 2015-07-01 2015-07-02 Outpatient nullFlavo [facility] [id number] Memoria 19:40:00 05:59:00 r [place] 37 l [facility] 2015-06-30 2015-07-01 Outpatient nullFlavo [facility] [id number] Memoria 19:12:00 05:59:00 r Rocky 36 l [facility] 2014-12-29 2014-12-30 Outpatient nullFlavo [facility] [id number] Memoria 12:32:00 04:59:00 r [place] 35 l [facility] 2014-08-24 2014-08-25 Outpatient nullFlavo [facility] [id number] Memoria 19:49:00 04:59:00 r [place] 34 l [facility] 2014-08-11 2014-08-11 OBS Day nullFlavo [facility] [id number] Memoria 10:30:00 17:05:00 Surgery [place] 33 l [facility] 2014-06-03 2014-06-04 Outpatient nullFlavo [facility] [id number] Memoria 17:26:00 05:59:00 r [place] 21 l [facility] 2014-05-19 2014-05-20 OBS nullFlavo [facility] [id number] Memoria 17:52:00 22:00:00 Observatio r [place] 32 l n Patient [facility] 2014-04-28 2014-04-28 Bedded nullFlavo [facility] [id number] Memoria 12:12:00 16:10:00 Outpatient r [place] 30 l [facility] 2014-04-06 2014-04-07 Outpatient nullFlavo [facility] [id number] Memoria 18:28:00 05:59:00 r [place] 29 l [facility] 2013-07-09 2013-07-09 EC nullFlavo [facility] [id number] Memoria 16:18:00 21:33:00 Emergency [place] [id number] [address] 2013-07-09 2013-07-09 Emergency nullFlavo [id number] Memoria 10:18:00 15:33:[address] [facility] 28 [facility] 2013-07-07 2013-07-07 Outpatient nullFlavo [id number] Memoria 08:22:00 08:22:[address] [facility] 27 [facility] 2013-06-19 2013-06-19 Outpatient nullFlavo [id number] Memoria 13:36:00 23:59:[address] [facility] 26 [facility] 2012-12-27 2012-12-27 Outpatient nullFlavo [id number] Memoria 16:26:00 16:26:[address] [facility] 25 [facility] 2012-12-26 2012-12-26 Outpatient nullFlavo [id number] Memoria 15:38:00 15:38:[address] [facility] 23 [facility] 2012-12-23 2012-12-23 IAN nullFlavo [id number] Memoria 05:58:00 10:05:[address] [facility] 24 [facility] 2013-10-14 2012-10-16 EST, SOILA CM [id number] M emoria 09:00:00 00:06:10 Provider: Adela Tate, Status: Pen, Time: 9:00 AM 2012-10-15 2012-10-16 AUDIT SOILA CM [id number] M emoria 19:06:31 00:06:10 deborah Hidalgo Results Test Description Test Time Test Comments Results Result Comments Source CHEM PANEL 2017-11-22 15:10:00 Test Item Value Reference Range Interpretation Comme nts B/C Ratio (test code = B/C Ratio) 29 1 6-25 [facility] CHUQO9928-97-38 15:10:00 Test Item Value Reference Range Interpretation Comments A/G Ratio (test code = A/G Ratio) 0.8 1 0.7-1.6 [facility] Yooli ALFGD7496-45-80 15:10:004.2[facility] Derma SciencesannCHEM PANEL 2017-11-22 15:10:0010.0[facility] HermannCHEM SFQMJ6222-32-02 15:10:0058[facility] HermannCHEM YXTTA2048-31-65 15:10:0095[facility] HermannCHEM IZGFK2550-22-05 15:10:000.5[facility] HermannCHEM RDCYW4487-13-70 15:10:0011[facility] HermannCHEM QWIFL0761-68-87 15:10:0080[facility] HermannCHEM MKLRA1967-06-10 15:10:003.5 [facility] HermannCHEM YMEKS7158-09-02 15:10:007.7[facility] HermannCHEM PANEL 2017-11-22 15:10:004.0[facility] HermannCHEM NEDHA2865-28-48 15:10:41699Ccsfrrul HermannCHEM HQZZZ6328-24-63 15:10:0024[facility] HermannCHEM HBJNN9341-98-47 15:10:000.97[facility] HermannCHEM MNYLW5423-09-78 15:10:0026[facility] HermannCHEM EGISC7359-41-69 15:10:39006Vuvykwgl HermannCHEM KJTXE6306-06-77 15:10:008.6 [facility] HermannCHEM YXZDB4990-27-09 15:10:0028[facility] HermannHEMATOLOGY 2017-11-22 15:10:000.3[facility] WrkmdlpKQOARYOUBP7980-04-93 15:10:005.0[facility] UoikabfWNDSSDVYKP5877-18-76 15:10:000.3[facility] NdnfvtwREASKZSFZK2787-89-50 15:10:000.4[facility] OhvsqbgZEAGHICGIP2207-01-38 15:10:003.8[facility] [place] HARZKHCEUQ2153-92-92 15:10:002.3[facility] XzramazWDJTVCKNMS0863-82-40 15:10:00 Normal (11/22/17 10:10 AM)[facility] GpefieaTPHVLLTEUL6884-89-84 15:10:00Normal (11/22/17 10:10 AM)[facility] VxpuwrxGQKLEDHWGI9076-54-85 15:10:0058.7[facility] IwfbjesTTUOWGMVOS7825-20-52 15:10:0035.6[facility] JnppfgqXOASMYEPIU7470-94-38 15:10:0034.5[facility] BscibbhWJHOLLJZGC6904-15-33 15:10:00 Test Item Value Reference Range Interpretation Comments MCH (test code = MCH) 31.2 pg 27.0-31.0 [facility] AgibymuASEQHHLLQJ5658-79-08 15:10:0090.6[facility] HermannHEMATOLOGY 2017-11-22 15:10:0036.4[facility] KdqhxhvFBBNNHBMEN2702-64-54 15:10:0012.5[facility] FhjghqeCMDNTCIWVU6800-52-02 15:10:009.4[facility] MxovtluTNOUNEQPPX1802-04-56 15:10:18695Yydpvisc EvozsmfKGHHSTMKQC6150-97-55 15:10:0013.0[facility] [place] OFKBQJTBOB4059-73-34 15:10:004.02[facility] UprlwmgUNXHZCOTHX2731-35-99 15:10:00 6.5[facility] HermannCHEM JMMSO5983-97-34 15:10:00 Test Item Value Reference Range Interpretation Comments B/C Ratio (test code = B/C Ratio) 29 1 6-25 [facility] HermannCHEM RDQNZ5499-55-28 15:10:00 Test Item Value Reference Range Interpretation Comments A/G Ratio (test code = A/G Ratio) 0.8 1 0.7-1.6 [facility] HermannCHEM YUUOG8932-01-81 15:10:004.2[facility] HermannCHEM PANEL 2017-11-22 15:10:0010.0[facility] HermannCHEM GFAYV6926-35-15 15:10:0058Mem[facility] HermannCHEM EATMT2553-66-70 15:10:0095[facility] HermannCHEM MHIJT7170-51-88 15:10:000.5[facility] HermannCHEM RYAVA0680-36-95 15:10:0011[facility] HermannCHEM YNLTG3367-84-11 15:10:0080[facility] HermannCHEM GIMKA8585-28-70 15:10:003.5 [facility] HermannCHEM YPDKC2161-54-12 15:10:007.7[facility] HermannCHEM PANEL 2017-11-22 15:10:004.0[facility] HermannCHEM BEIZJ6408-78-87 15:10:23714Bntqmrio HermannCHEM KTSOU8712-12-29 15:10:0024[facility] HermannCHEM NNJPR2730-11-28 15:10:000.97[facility] HermannCHEM VQLPJ5957-16-60 15:10:0026[facility] HermannCHEM YKOXM1260-00-78 15:10:88968Kcmmwqoj HermannCHEM WAWQW2595-60-44 15:10:008.6 [facility] HermannCHEM WGIGZ5951-89-77 15:10:0028[facility] HermannHEMATOLOGY 2017-11-22 15:10:000.3[facility]orial FzvpcabXKALOXMZTC6792-89-93 15:10:005.0[facility] RifoyjjWRNXKCYWZR4894-48-95 15:10:000.3[facility] HyhpggyTNIODQEWDM9860-40-06 15:10:000.4[facility] JlbrwukAJWZEDBWPY5523-35-42 15:10:003.8[facility] [place] MWNVFOWFMO1002-06-67 15:10:002.3[facility] IfanrtvVJVPXLLETV6087-70-03 15:10:00 Normal (11/22/17 10:10 AM)[facility] StdplnxUFMQIOUZDH9887-20-99 15:10:00Normal (11/22/17 10:10 AM)[facility] QgztnbtOVRUMUAKJI7722-13-96 15:10:0058.7[facility] UhjkpkmZRTAEAZBSX9958-33-57 15:10:0035.6[facility] HrcxbalCFYBQDSVNW8086-51-37 15:10:0034.5[facility] CcfvknpCETZBGQHPL7083-26-33 15:10:00 Test Item Value Reference Range Interpretation Comments MCH (test code = MCH) 31.2 pg 27.0-31.0 Memorial LjqfjxpPJBZPYLNYY2020-08-28 15:10:0090.6[facility] HermannHEMATOLOGY 2017-11-22 15:10:0036.4[facility] UgkhdvwTKXVRSCRYG9325-94-90 15:10:0012.5[facility] KklmizwUFAHSETGXN0376-72-32 15:10:009.4[facility] KyehtunHTYBEPHGHF9669-62-50 15:10:36526Sboobdnr SdfsckhBHVLRWNRGT8512-06-75 15:10:0013.0[facility] [place] VYHJAQSJQW6945-18-49 15:10:004.02[facility] VzaajnbVUPYEKOGLN0335-60-90 15:10:00 6.5[facility] HermannCHEM EUTGC8855-45-64 15:10:00 Test Item Value Reference Range Interpretation Comments B/C Ratio (test code = B/C Ratio) 29 1 6-25 [facility] HermannCHEM CXKUP6296-25-08 15:10:00 Test Item Value Reference Range Interpretation Comments A/G Ratio (test code = A/G Ratio) 0.8 1 0.7-1.6 [facility] HermannCHEM NEYES2923-59-43 15:10:004.2[facility] HermannCHEM PANEL 2017-11-22 15:10:0010.0[facility] HermannCHEM HMVQG4063-98-06 15:10:0058[facility] HermannCHEM DXZSX8560-27-48 15:10:0095[facility] HermannCHEM AGADI0063-52-86 15:10:000.5[facility] HermannCHEM HSVLZ0162-31-35 15:10:0011[facility] HermannCHEM IDSDQ8633-00-06 15:10:0080[facility] HermannCHEM HPENY9770-83-03 15:10:003.5 [facility] HermannCHEM SLOQZ9210-25-60 15:10:007.7[facility] HermannCHEM PANEL 2017-11-22 15:10:004.0[facility] HermannCHEM BBJNQ4161-14-90 15:10:23133Jcpoevxc HermannCHEM UYHKS0161-41-84 15:10:0024[facility] HermannCHEM LAFNT0769-93-11 15:10:000.97[facility] HermannCHEM FTMPH5088-57-39 15:10:0026[facility] HermannCHEM ENNGT8899-98-74 15:10:63811Ltehcflf HermannCHEM BVRXJ6692-99-37 15:10:008.6 [facility] HermannCHEM ZOUAM9292-16-65 15:10:0028[facility] HermannHEMATOLOGY 2017-11-22 15:10:000.3[facility] RfzamfsVSISVEFJHW9386-94-35 15:10:005.0[facility] HepumsbJWIWPGKHMD6468-11-38 15:10:000.3[facility] JuhwvitXRWFHXHKYW9849-33-06 15:10:000.4[facility] OmirapuOQCARWZWKH4207-07-02 15:10:003.8[facility] [place] WZGKFQHMWC0883-89-59 15:10:002.3[facility] WncusrcOWNTNTTOHY0651-66-04 15:10:00 Normal (11/22/17 10:10 AM)[facility] DfkmxwdFPQINKIBQR1117-14-84 15:10:00Normal (11/22/17 10:10 AM)[facility] NvdyksbXZHNZYBZQO9662-38-37 15:10:0058.7[facility] RoqrhqvOTUGUIJXIM6795-38-97 15:10:0035.6[facility] ZufymmhXHKAZBCXHB0938-24-56 15:10:0034.5[facility] TybpphcGPDUWBDVKQ0729-56-31 15:10:00 Test Item Value Reference Range Interpretation Comments MCH (test code = MCH) 31.2 pg 27.0-31.0 [facility] TabqqtwEMOEUYCFSO2381-04-25 15:10:0090.6[facility] HermannHEMATOLOGY 2017-11-22 15:10:0036.4[facility] XnbzzivGEUZOXKQCN3791-79-73 15:10:0012.5[facility] SbfpuaoKBWMVVGDMV1747-93-15 15:10:009.4[facility] IetcyqvTUVGCCZGJL5885-97-21 15:10:86077Anxlakir DbqrbanOCNZAGNMTZ9740-32-00 15:10:0013.0[facility] [place] SJMFOLCNUQ0014-02-90 15:10:004.02[facility] YtnsbggMMUKBBCNCD6382-44-89 15:10:00 6.5[facility] PdotmtyBLAVWLFCST6833-83-51 08:23:0077.8[facility] HermannHEMATOLOGY 2017-03-01 08:23:0012.1[facility] YhpmaqmZBCLERBLSV2619-88-45 08:23:000.9[facility] YonvdwmCBZZACYVEF3673-99-68 08:23:001.2[facility] OkllabyVIFPCBYRHM7238-30-87 08:23:007.4[facility] UkmvgwgMDKQIFADGJ9869-06-04 08:23:000.1[facility] [place] VBHMXIRRNV8211-87-20 08:23:009.9[facility] EywguckFZNQYOFMXF2565-32-66 08:23:000.1 Memorial AuawshxODTGFQJQMJ6925-81-50 08:23:45835Pwjqyggp HermannHEMATOLOGY 2017-03-01 08:23:009.7[facility] JxhuuozPVALXZNZJD9652-14-34 08:23:0013.0[facility] QrjcdajUDWQZPITIB5019-59-21 08:23:00 Test Item Value Reference Range Interpretation Comments MCH (test code = MCH) 32.2 pg 27.0-31.0 [facility] EbsunjxOIBQFSLPPR4471-75-87 08:23:0034.7[facility] HermannHEMATOLOGY 2017-03-01 08:23:0028.9[facility] GjalojdYOYHCKQHRX1878-58-76 08:23:0010.1[facility] ObhlyvfMDEPAAEIWZ7906-75-04 08:23:003.12[facility] KjwxrenHLKTGEBTUH7906-72-99 08:23:009.5[facility] GzrdcxrMQGCMCLJHB8035-54-96 08:23:0092.6[facility] [place] RGAKMLXKWO7459-58-18 08:23:0077.8[facility] JjzdykpXVEBEUWQVD1864-15-29 08:23:00 12.1[facility] VwypwghOLYKXYRIWU2890-43-44 08:23:000.9[facility] HermannHEMATOLOGY 2017-03-01 08:23:001.2[facility] NvcwczkDQLNWJVBHL2379-63-14 08:23:007.4[facility] VjamjtcJBGWKRECHV5640-82-21 08:23:000.1[facility] TqiwxhzNMMCACQCHK9240-08-89 08:23:009.9[facility] NotsgqcVQSOHPDRZF9367-07-30 08:23:000.1[facility] [place] ILGQXHVIVB3769-33-74 08:23:46952Poqmmqin HlcbeupEETTJSSYJB1299-01-42 08:23:009.7 [facility] KdlouccJRMMFXMBVH1056-25-41 08:23:0013.0[facility] HermannHEMATOLOGY 2017-03-01 08:23:00 Test Item Value Reference Range Interpretation Comments MCH (test code = MCH) 32.2 pg 27.0-31.0 [facility] KmsrahzHWRGOUTIIA3642-87-38 08:23:0034.7[facility] HermannHEMATOLOGY 2017-03-01 08:23:0028.9[facility] FizkfbfTOMPRBKFWH9514-50-20 08:23:0010.1[facility] UrctowbCHQBOOGNIB0935-26-19 08:23:003.12[facility] FzzicrgLEOTETBVXT1631-67-22 08:23:009.5[facility] GtunwrtOOXWLYEPLK9261-44-03 08:23:0092.6[facility] [place] PKKMFFAIZB1546-18-28 08:23:0077.8[facility] CznkhjyDUUOMLEXVD1812-36-42 08:23:00 12.1[facility] XjactmiVNROHCEDMP0671-06-42 08:23:000.9[facility] HermannHEMATOLOGY 2017-03-01 08:23:001.2[facility] WyeuilyLVVTKHMXUO6425-51-14 08:23:007.4[facility] WkdejunGVVTVTEUNH9684-41-67 08:23:000.1[facility] QthnozpMMPTJEZZCY4824-93-63 08:23:009.9[facility] AktopzdTOPMZLQQXW1765-27-22 08:23:000.1[facility] TVWMHAZKNW2735-32-02 08:23:15730Esslvkpo UlgdaqhCEWXGZZKBY5850-82-30 08:23:009.7 [facility] NratfbtJSBNHTTMEY7066-50-67 08:23:0013.0[facility] 2017-03-01 08:23:00 Test Item Value Reference Range Interpretation Comments MCH (test code = MCH) 32.2 pg 27.0-31.0 [facility] AgunxycKFFUXDUTBB6524-56-40 08:23:0034.7[facility] 2017-03-01 08:23:0028.9[facility] YwwcoetEGBPNEXXQC2146-40-44 08:23:0010.1[facility] MtvikglCNAYJIMFUN4348-56-48 08:23:003.12[facility] GgsvydyLDKIQKFOCK6403-94-34 08:23:009.5[facility] VhgnwabSUZJZMFGKH9528-18-80 08:23:0092.6[facility] KLPVBCDXVU3775-63-97 09:26:0010.6[facility] AzutjngCHHKVOBCFD4913-44-35 09:26:00 0.9[facility] SpevuoyGMNWVRFVTT6683-41-29 09:26:001.3[facility] 2017-02-28 09:26:0082.7[facility] CvbathxFWTCWJIPYF2631-18-06 09:26:007.3[facility] AttgzidRJUIPCGJJA2581-25-69 09:26:0010.0[facility] IzmsefzLLUKPHSWJQ8816-30-48 09:26:0012.8[facility] VeprnraPKAIDJMKBR1550-68-12 09:26:009.0[facility] [place] RCOJNBBTYF8779-19-09 09:26:29713Eqibwrid QuxagadFSOVMWLIVC3500-97-23 09:26:00 12.8[facility] IwreuqySOQNWXLIJR3397-24-16 09:26:0010.4[facility] 2017-02-28 09:26:003.26[facility] PkyzxhgTMUPRHXMHD7441-08-28 09:26:0030.0[facility] IxfbehpEDACEKSIGR0914-94-89 09:26:0092.3[facility] FnrzocaYLPWPEUQTT1802-32-69 09:26:00 Test Item Value Reference Range Interpretation Comments MCH (test code = MCH) 31.8 pg 27.0-31.0 [facility] HmbpphiZNFZHMFZNM7327-12-93 09:26:0034.5[facility] 2017-02-28 09:26:0010.6[facility] CvhzcvfHJRDXJONPJ2566-17-15 09:26:000.9[facility] TurjjkqEDCGPKOYQF3925-57-56 09:26:001.3[facility] PfvvevcYHVPNRRDZM9238-44-04 09:26:0082.7[facility] IrmynwhSFTSIFMCXW5401-22-28 09:26:007.3[facility] [place] BREGBFUDOR0680-73-14 09:26:0010.0[facility] UapuaoaADCEDULJYG9202-23-37 09:26:00 12.8[facility] QembumgUURSJXPGYR0156-69-37 09:26:009.0[facility] 2017-02-28 09:26:18521Thbuqmiw EyvsezzCSLDGLKFDZ1313-91-41 09:26:0012.8[facility] AlghuljOFNFRCSWEO2165-68-97 09:26:0010.4[facility] QsgzeaeCUDXFJGVFG2533-14-93 09:26:003.26[facility] PvzbbbiESVMDERXWK0891-93-16 09:26:0030.0[facility] RWNFWFGWDI6330-01-34 09:26:0092.3[facility] TxljhaxGXSDDDLKVP9500-10-62 09:26:00 Test Item Value Reference Range Interpretation Comments MCH (test code = MCH) 31.8 pg 27.0-31.0 [facility] BmeftccNUNKKVKRZR6331-59-72 09:26:0034.5[facility] 2017-02-28 09:26:0010.6[facility] FhodsvvSURIWLWKMY4479-57-06 09:26:000.9[facility] RqxqdmyGGDYRMYUKT3415-13-95 09:26:001.3[facility] HhgtgyqOHXIISRYIT3334-84-73 09:26:0082.7[facility] WinutsiMQRBZWAUSJ7884-10-04 09:26:007.3[facility] [place] HHEUDTBWJW4558-46-09 09:26:0010.0[facility] IyzixqgKPMGAEYSZV4774-88-96 09:26:00 12.8[facility] TksdegtLEMJXZMHOE8038-30-78 09:26:009.0[facility]annHEMATOLOGY 2017-02-28 09:26:87719Prwkvsno FzegecoVKVPMXJCNZ4509-06-32 09:26:0012.8[facility] KcqavwqSTCKIZFMUF4565-89-31 09:26:0010.4[facility] QubuintARIOEHHWYR7059-94-88 09:26:003.26[facility] BlbepmbYISLPSZNMZ4530-09-79 09:26:0030.0[facility] EEJJBOUVGF2052-45-08 09:26:0092.3[facility] ZfkcubcMGCYGNXHGE9651-20-37 09:26:00 Test Item Value Reference Range Interpretation Comments MCH (test code = MCH) 31.8 pg 27.0-31.0 [facility] MufxqecEFEZHYBCIZ1537-60-78 09:26:0034.5[facility]annHEMATOLOGY 2017-02-22 18:16:0043.6[facility] BxpeoueJGTWFAPDIU6386-22-30 18:16:005.8[facility] WuvyiucSQTBEWMSCP3575-32-89 18:16:002.2[facility] XritnakWDWXSSTODG0500-27-63 18:16:000.4[facility] WzcouemJEUAOUYEIC5715-34-09 18:16:000.1[facility] SEWFATZJWZ8710-82-44 18:16:000.5[facility] MobkfheNUDESDEQRS8459-37-00 18:16:005.2 [facility] HlxmvieBAMURKNSSD2701-85-73 18:16:0025.9[facility]annHEMATOLOGY 2017-02-22 18:16:000.9[facility] GxzxzsdVTZZAYOYFW1894-83-86 18:16:0067.5[facility]annBL[facility]OD BANK SZRVERT4216-00-64 18:16:00Negative (02/22/17 1:16 PM)[facility] IbggrihUUUKWBNZOAIX8507-75-57 18:16:0014.8[facility] TxesdujCQVUKPNNGKTR1278-49-01 18:16:0041[facility] CwzdngqONEEXXDEHULZ7443-79-17 18:16:0032[facility] NZFCAQGMGHRM9254-24-06 18:16:33611Snfgfmmk JytylttQZMMLRGJWPHN5201-22-84 18:16:009.3[facility] KpqrqsiHOPCDYBOCADS3926-68-79 18:16:004.8[facility] CAMKUIUCJTNG4081-20-49 18:16:72821Jailhzrf OzyitjgAOCQDJACYNWM0606-91-61 18:16:001.30[facility] MrqtfawKXMOUANAAICK7557-39-75 18:16:0026[facility] VRQKNRBXNMBF1148-26-39 18:16:43582Lmeyxsfj CtirmdxHRSKRIRKMN0674-61-68 18:16:00 Test Item Value Reference Range Interpretation Comments PTT (test code = PTT) 26.5 s 22.9-35.8 [facility] HjnkxdxMYVPZJFBTI1818-95-70 18:16:00 Test Item Value Reference Range Interpretation Comments PT (test code = PT) 13.1 s 12.0-14.7 [facility] GgczskxHAOKYHJHKQ8920-35-83 18:16:000.97[facility]annHEMATOLOGY 2017-02-22 18:16:0013.2[facility] UtrorynFSHMSRTATA4492-69-54 18:16:0034.5[facility] SxztugfVANQBUPLAU8659-30-52 18:16:00 Test Item Value Reference Range Interpretation Comments MCH (test code = MCH) 32.0 pg 27.0-31.0 [facility] FwobyciLRZABVMIDP5708-87-58 18:16:009.1[facility]annHEMATOLOGY 2017-02-22 18:16:24307Hfiasptg IkviecmIOVJWLRCRM5771-45-62 18:16:008.5[facility] QeedrkuSUIJCLEAVW0132-04-48 18:16:004.70[facility] WmaabnzBXJQHEERXS2764-51-26 18:16:0015.0[facility] BmhjznfGYNBGDKIIQ6545-31-75 18:16:0092.7[facility] KSICOOFYIW2472-96-34 18:16:0043.6[facility] HcztpapSHEOEGNISL5380-33-24 18:16:00 5.8[facility] HhbxgjgVXWUKAJBZY3469-28-22 18:16:002.2[facility]annHEMATOLOGY 2017-02-22 18:16:000.4[facility] DsjnfebVAEJRAGGGM1197-17-49 18:16:000.1[facility] JumetgjCNUFBAUFGE3603-69-12 18:16:000.5[facility] EqmelivRMZMTJYETH5196-07-14 18:16:005.2[facility] CljbifrSNUOYZVPEE9097-70-14 18:16:0025.9[facility] ULLXLQATQX0987-34-31 18:16:000.9[facility] LnxndbjWVNRCCMCXX2058-39-54 18:16:00 67.5[facility]BL[facility] DHKCNUP2804-05-70 18:16:00Negative (02/22/17 1:16 PM)[facility] MvwkplyALOXEINOSWXU8846-83-83 18:16:0014.8[facility] WHDUTYSVAOML5604-33-67 18:16:0041[facility] TgdknreXZMNCOHDQVCO0481-30-16 18:16:00 32[facility] VaxtywuEUVRRMMAXPKM2113-41-25 18:16:58566Kmprxtpi HermannELECTROLYTES 2017-02-22 18:16:009.3[facility] XjgrlscMQLXYQKHNRZS1437-82-26 18:16:004.8[facility] KfndowaZILBVTUQBVFO9618-69-19 18:16:09137Dbblzkau XkuzhlpRINFXQTQHDII2032-92-62 18:16:001.30[facility] QsvhkxjPIXEQWVPCTWW8457-89-13 18:16:0026[facility] RTIXPDQBCPWD1712-75-22 18:16:08134Kxfcswcl OhilkrfMXSLFYQXPF6920-19-97 18:16:00 Test Item Value Reference Range Interpretation Comments PTT (test code = PTT) 26.5 s 22.9-35.8 [facility] SmdvmasGUEBSIZMUA1102-69-81 18:16:00 Test Item Value Reference Range Interpretation Comments PT (test code = PT) 13.1 s 12.0-14.7 [facility] FnbqlmvGQAGBGPJSO2265-13-91 18:16:000.97[facility]annHEMATOLOGY 2017-02-22 18:16:0013.2[facility] HoptisxVOMGFUQRBW8750-48-61 18:16:0034.5[facility] TqciawtCCZJFRRIDG4409-29-11 18:16:00 Test Item Value Reference Range Interpretation Comments MCH (test code = MCH) 32.0 pg 27.0-31.0 [facility] UlrxarlFAWCJHCVMQ6353-36-16 18:16:009.1[facility]annHEMATOLOGY 2017-02-22 18:16:51086Byjupgxe RmqeyqoOYBQWFUQMU5246-95-66 18:16:008.5[facility] BykcgkdUQWVZKJNDZ5416-94-95 18:16:004.70[facility] BqefrpjRFPZVFCJIW8498-04-25 18:16:0015.0[facility] WmynxweVIFMYMURSC0967-76-67 18:16:0092.7[facility] BLOOD BANK LKFBYFR7345-30-91 18:16:00Negative (02/22/17 1:16 PM)[facility] PBHQXJYMYXXX9468-30-88 18:16:0014.8[facility] VlxxbobSPIQOKSFWIIC7582-07-06 18:16:0041[facility] EwhozllDLDLWKMTHTPG5792-14-05 18:16:0032[facility] HCYTGUHXNUMT6512-26-42 18:16:09583Aeutwjwz YkkqqjaXEXUHNTHJIBX6808-37-53 18:16:009.3[facility] NtvdusySYMJMQZHAWDD6909-34-58 18:16:004.8[facility] GHEDBZKADEOY3943-58-88 18:16:70357Gvwvvheg CczafsuZWIGMRQAYGZV7974-55-04 18:16:001.30[facility] ZuvssolQGZWFGJGFSAG9044-77-13 18:16:0026[facility] MGEBDRLKVYDT4204-90-68 18:16:78080Btpkfssp QpxkbnsTBLTPYQLAQ5519-68-80 18:16:00 Test Item Value Reference Range Interpretation Comments PTT (test code = PTT) 26.5 s 22.9-35.8 [facility] JocsffsGRJIYHKVTQ5954-53-42 18:16:00 Test Item Value Reference Range Interpretation Comments PT (test code = PT) 13.1 s 12.0-14.7 [facility] YtrvnmvSQWDCNBHRP4241-96-09 18:16:000.97[facility]annHEMATOLOGY 2017-02-22 18:16:0013.2[facility] PyupygfLWQNKMSYQO7195-28-46 18:16:0034.5[facility] EinypzjZEXYVAXNWW0488-15-70 18:16:00 Test Item Value Reference Range Interpretation Comments MCH (test code = MCH) 32.0 pg 27.0-31.0 [facility] SkgwbidPEWAGUZSBZ7558-96-40 18:16:009.1[facility]annHEMATOLOGY 2017-02-22 18:16:60622Lhzpttvi RbxuzweGJUAOUZPAF0305-07-52 18:16:008.5[facility] TdxigtfPLUDTLZSTS0415-33-21 18:16:004.70[facility] HoephipBGPACALEWO1837-08-19 18:16:0015.0[facility] XdcpcjjDBXXFQYVGK6955-00-73 18:16:0092.7[facility] VKQGUIPGWY5534-69-97 18:16:0043.6[facility] AuatetnNMVHFBCRPM8623-31-44 18:16:00 5.8[facility] VhomjooREJJZTKTAP8216-41-02 18:16:002.2[facility]annHEMATOLOGY 2017-02-22 18:16:000.4[facility] FluindoBGPUATHIZW8149-44-72 18:16:000.1[facility] CjtgwnqGFQBPJIKNI7426-14-78 18:16:000.5[facility] KkgridvQBSALEQEDB3324-17-41 18:16:005.2[facility] OzludobYSSZBWKYOI3820-02-40 18:16:0025.9[facility] UREATEVDPV6329-55-82 18:16:000.9[facility] OdpvhanLUPUHRDNUT9018-90-57 18:16:00 67.5[facility]BL[facility] EAMQKKQ1123-62-17 17:57:00Product available (02/22/17 12:57 PM)[facility] LSJWQWH6399-39-44 17:57:00Product available (02/22/17 12:57 PM)[facility]BL[facility] RWERQKV7893-09-35 17:57:00Product available (02/22/17 12:57 PM)[facility]annCHEM PANEL 2016-06-19 17:01:0032[facility] HermannCHEM PQMZO9490-05-46 17:01:004.1[facility] HermannCHEM AKYML6225-42-66 17:01:001.0[facility] HermannCHEM HSVBW4785-82-09 17:01:0013.0[facility]annCHEM KHUBZ1488-58-75 17:01:0050[facility]annCHEM MIYEW9472-62-70 17:01:004.1[facility]annCHEM TCXEW0872-54-53 17:01:0011 [facility]annCHEM CSEZN7655-45-26 17:01:0023[facility]annCHEM PANEL 2016-06-19 17:01:008.2[facility]annCHEM LSBQA0491-97-42 17:01:0077[facility]annCHEM WIUFK0947-74-04 17:01:000.5[facility] HermannCHEM AZTHG7717-82-63 17:01:70763Ezywzpkg HermannCHEM QRUSV5699-56-04 17:01:0023[facility] HermannCHEM WXNLW9341-12-65 17:01:008.9[facility] HermannCHEM SKUTR7535-54-72 17:01:0093 [facility]annCHEM RDGSJ4375-62-44 17:01:004.0[facility] HermannCHEM PANEL 2016-06-19 17:01:74599Utkykefd HermannCHEM ITSCZ7730-19-10 17:01:0035[facility] HermannCHEM XPVJX2860-48-95 17:01:001.10[facility] DsivsonNXDRFEPUMZ9379-94-21 17:01:004.54[facility] AddctwgTLZYASLTDP3813-32-95 17:01:0014.3[facility] PQGBOJLSLT7448-14-06 17:01:008.5[facility] UqzepueQHJJDSCFBG9078-57-60 17:01:009.2 [facility] BrtvwejGHVOCPUHSH1208-91-79 17:01:0092.6[facility]annHEMATOLOGY 2016-06-19 17:01:0042.1[facility] UtennjfMRRCZYOIIJ9488-35-33 17:01:0013.6[facility] TmbcelyHJADQDFEKS2537-06-66 17:01:00 Test Item Value Reference Range Interpretation Comments MCH (test code = MCH) 31.5 pg 27.0-31.0 [facility] IhzdjldYHTGNWFATW5165-28-18 17:01:08447Wigsngpq HermannHEMATOLOGY 2016-06-19 17:01:0034.1[facility] EnkkytlJLBRKUGAVP1208-87-01 17:01:000.6[facility] BjtgyunYAPHSKAVXC0559-70-80 17:01:000.9[facility] QittqitIWXYLVDCXF3362-40-42 17:01:0023.2[facility] RjcmrxmHPREERIWBV8831-19-49 17:01:0069.1[facility] BQDGFBGXQU5290-93-59 17:01:002.0[facility] DcbgrmrAYIBFOOEZD6442-77-62 17:01:000.1 [facility] RqmijamAMDATRCELF2698-48-24 17:01:000.1[facility] HermannHEMATOLOGY 2016-06-19 17:01:006.2[facility] FmzyljlHIAMHPPGUA0604-25-12 17:01:005.9[facility] YtnkichFCDJQETVGI3931-23-86 17:01:000.5[facility] HermannCHEM FFVOO3730-01-53 17:01:0032[facility] HermannCHEM CIPBP1201-63-30 17:01:004.1[facility] HermannCHEM RMFOK0873-69-86 17:01:001.0[facility] HermannCHEM PQBJD2828-78-82 17:01:0013.0 [facility] HermannCHEM PKOPG7731-25-72 17:01:0050[facility] HermannCHEM PANEL 2016-06-19 17:01:004.1[facility] HermannCHEM EYWSU7113-26-53 17:01:0011[facility] HermannCHEM CHGKM0562-14-52 17:01:0023[facility] HermannCHEM FDVVR8977-46-70 17:01:008.2[facility] HermannCHEM EXQDW9305-98-95 17:01:0077[facility] HermannCHEM MXQFW2458-59-14 17:01:000.5[facility] HermannCHEM ICCID0106-73-56 17:01:55725 [facility]annCHEM ZWBJG2188-97-00 17:01:0023[facility] HermannCHEM PANEL 2016-06-19 17:01:008.9[facility] HermannCHEM ZNBKX8339-45-73 17:01:0093[facility] HermannCHEM RPXDA8230-49-62 17:01:004.0[facility] HermannCHEM MKLUZ8516-50-83 17:01:72772Jffbdjcz HermannCHEM RDNUS3593-17-36 17:01:0035[facility] HermannCHEM AZROI4314-02-10 17:01:001.10[facility] VgekemsFKLNKTEJFQ0337-18-11 17:01:004.54 [facility] SpanfbzRBEWVPOHGI3783-03-49 17:01:0014.3[facility] HermannHEMATOLOGY 2016-06-19 17:01:008.5[facility] TltvgcbJLQRTIJAMS3347-36-64 17:01:009.2[facility] AwjhnybRVAACMVSVU4666-91-23 17:01:0092.6[facility] YsyrfkkGUNXHKCIXO8820-10-15 17:01:0042.1[facility] YxkxuhlXJCRERTAFC1872-73-38 17:01:0013.6[facility] ODLWURQNUB3119-77-59 17:01:00 Test Item Value Reference Range Interpretation Comments MCH (test code = MCH) 31.5 pg 27.0-31.0 [facility] LotpytkKHUXQIWUVH3539-59-28 17:01:56989Tyvyvfgv HermannHEMATOLOGY 2016-06-19 17:01:0034.1[facility] WahovijOSKQQMHKKD6160-81-09 17:01:000.6[facility] EtjbfmhCTPPRRVOND8550-84-38 17:01:000.9[facility] GvipqeeRTVEHCRQBU7725-43-92 17:01:0023.2[facility] HkiwnazKTMFZBCUGF1973-86-23 17:01:0069.1[facility] VNMWJRYRYE5607-37-58 17:01:002.0[facility] GbrbsnwTOEOKIUCLW1220-43-96 17:01:000.1 [facility] FdlfoezYNUAMHSOUC3327-02-62 17:01:000.1[facility]annHEMATOLOGY 2016-06-19 17:01:006.2[facility] LpxycgaCDMHBCJDUT4335-17-69 17:01:005.9[facility] DiyhscvQLEWBYPBGE6446-67-29 17:01:000.5[facility] HermannCHEM FGUCR0577-06-00 17:01:0032[facility]annCHEM HTFHP1977-73-27 17:01:004.1[facility] HermannCHEM JYNUZ4426-14-94 17:01:001.0[facility]annCHEM VCXZN9737-70-74 17:01:0013.0 [facility]annCHEM UYVVT8202-84-09 17:01:0050[facility]annCHEM PANEL 2016-06-19 17:01:004.1[facility] HermannCHEM NAJOQ5694-88-24 17:01:0011[facility]annCHEM PBHVJ8343-37-98 17:01:0023[facility]annCHEM MRNMM5772-54-49 17:01:008.2[facility] HermannCHEM LANNX5086-31-17 17:01:0077[facility]annCHEM ATRMY9931-38-67 17:01:000.5[facility]annCHEM FJGEL7819-29-87 17:01:74809 [facility]annCHEM ROSOR9724-08-38 17:01:0023[facility]annCHEM PANEL 2016-06-19 17:01:008.9[facility] HermannCHEM IAIJY3232-43-89 17:01:0093[facility]annCHEM HEDPK9753-31-14 17:01:004.0[facility] HermannCHEM XKPPX9157-95-28 17:01:15958Trgkfiwy HermannCHEM SRUTR2932-31-51 17:01:0035[facility] HermannCHEM VVEDD1949-45-75 17:01:001.10[facility] YmkwkhwREBZYIKYWT8997-44-97 17:01:004.54 [facility] QhserflPEHAPJGLUY1875-21-53 17:01:0014.3[facility]annHEMATOLOGY 2016-06-19 17:01:008.5[facility] HkshmcxSPJMWVCPFA8427-39-46 17:01:009.2[facility] EtnlixjRRQOCYXGXQ0728-17-04 17:01:0092.6[facility] RezqpwnLBPXKKTCGM1436-99-20 17:01:0042.1[facility] KjpvbkeWGMRYGRXZT4796-37-01 17:01:0013.6[facility] IVJYDRKVGS2576-06-79 17:01:00 Test Item Value Reference Range Interpretation Comments MCH (test code = MCH) 31.5 pg 27.0-31.0 [facility] BibhksbBMNXIGPXPL0498-63-48 17:01:85480Digtpblt HermannHEMATOLOGY 2016-06-19 17:01:0034.1[facility] GewcuztUFUYXDZETO0615-14-11 17:01:000.6[facility] TkowuzzWTBUMBXGIF7016-06-82 17:01:000.9[facility] GdyvcrzTUHBKWWFHC8195-01-02 17:01:0023.2[facility] MaioosqUIBWYKBION6053-22-26 17:01:0069.1[facility] QDSXWNWYXQ6214-75-08 17:01:002.0[facility] IzkwybpNCQMCCQEJG7335-15-87 17:01:000.1 [facility] YyosapeKUWZTFOLEL8031-80-65 17:01:000.1[facility]annHEMATOLOGY 2016-06-19 17:01:006.2[facility] NegomijNUMQMGOJPK1329-50-57 17:01:005.9[facility] CrqakqlGFGVTODCRS1287-26-17 17:01:000.5[facility]annBLOOD BANK RESULTS 2015-09-28 14:58:00Negative (09/28/15 9:58 AM)[facility]annCHEM PANEL 2015-09-28 14:58:000.4[facility] HermannCHEM EXCMS6305-71-83 14:58:0083[facility]annCHEM KKWRW2613-88-11 14:58:0013[facility]annCHEM PFPIF7399-43-82 14:58:0021[facility]annCHEM BENYR8206-58-26 14:58:003.8[facility]annCHEM JQFLD0061-78-73 14:58:007.8[facility]annCHEM LHDJW9831-66-24 14:58:009.0 [facility]annCHEM FQTYJ5062-43-23 14:58:0026[facility]annCHEM PANEL 2015-09-28 14:58:0056[facility]annCHEM PFUOY0687-77-43 14:58:86911Xkdcbovw HermannCHEM PKREI1606-53-25 14:58:37678Pluqlxod HermannCHEM KJKGH3154-88-63 14:58:004.2[facility] HermannCHEM ITBLL4919-75-50 14:58:001.01[facility]annCHEM GBPOR2503-31-81 14:58:0019[facility]annCHEM FQNDD7403-41-72 14:58:0096 [facility]annCHEM ULXSZ2712-14-19 14:58:0019[facility]annCHEM PANEL 2015-09-28 14:58:0012.2[facility] HermannCHEM WBNJS1102-87-54 14:58:001.0[facility] HermannCHEM NCHAH9118-80-24 14:58:004.0[facility] VefszbgFMGEYMJPTR0774-00-96 14:58:00 Test Item Value Reference Range Interpretation Comments PTT (test code = PTT) 27.0 s 22.9-35.8 [facility] DiuoyyhWLXLNDAKWA6960-89-62 14:58:00 Test Item Value Reference Range Interpretation Comments PT (test code = PT) 13.8 s 12.0-14.7 [facility] IlihrevERBYVXGWVY8524-47-09 14:58:001.03[facility]annHEMATOLOGY 2015-09-28 14:58:000.1[facility] HrdialbRXSWGMXMNB1886-90-91 14:58:000.8[facility] OuchupdSAEHOYDPVY4575-19-26 14:58:001.7[facility] LjpmpzlSGFIOUYCXV6861-18-18 14:58:000.5[facility] UcdmrdzWUHEJHZMQA7594-31-08 14:58:004.1[facility] DDWADQLMOW1580-48-59 14:58:007.3[facility] GbaphbrADCZCLGAIP7198-29-19 14:58:002.1 [facility] EdpmpmmYFBUMRSLXI8242-08-74 14:58:0063.0[facility] HermannHEMATOLOGY 2015-09-28 14:58:0026.8[facility] GbmyapqOPDKVWDPWA8433-92-04 14:58:86023Sqgcotdh VsyajtvBJCVRBUTAS6391-80-10 14:58:0013.0[facility] WxdoigtKZQDWDDFFR5124-92-34 14:58:008.6[facility] KeavllcUCFGOJRFPQ5630-06-92 14:58:0032.7[facility] IERWAHJAZE0562-01-12 14:58:0039.2[facility] ImotympPWZSYUCFTS5328-64-21 14:58:00 91.3[facility] YrnzuhlFXLQOUNHIZ6314-96-73 14:58:00 Test Item Value Reference Range Interpretation Comments MCH (test code = MCH) 29.9 pg 27.0-31.0 [facility] RilmwueYZWOFDERMX7299-58-79 14:58:0012.8[facility] HermannHEMATOLOGY 2015-09-28 14:58:006.5[facility] ThdtynsKLHJKOSOUS4859-14-64 14:58:004.29[facility]annURINE AND NITQR1072-75-37 14:58:00Yellow *NA*(09/28/15 9:58 AM)[facility]UR[facility] AND PCNEO2501-85-96 14:58:001.020[facility]annUR[facility] AND STOOL 2015-09-28 14:58:00Clear (09/28/15 9:58 AM)[facility]UR[facility] STOOL 2015-09-28 14:58:006.0[facility]annURINE AND NATNY0950-18-60 14:58:00Negative *NA*(09/28/15 9:58 AM)[facility] ZFNVV4506-22-33 14:58:00Small *ABN*(09/28/15 9:58 AM)[facility] MTSTL9045-60-78 14:58:00Positive *ABN*(09/28/15 9:58 AM)[facility] BGKZI4367-16-67 14:58:00 Negative (09/28/15 9:58 AM)[facility] EVJFA8961-54-80 14:58:0034 [facility]annUR[facility] AND MXFKN0361-44-68 14:58:001[facility]annBLOOD BANK TEUALXK2574-61-52 14:58:00Negative (09/28/15 9:58 AM)[facility]annCHEM PANEL 2015-09-28 14:58:000.4[facility] HermannCHEM EYLKC3394-40-58 14:58:0083[facility] HermannCHEM FCFMN8392-28-63 14:58:0013[facility] HermannCHEM WIVSI2636-91-52 14:58:0021[facility] HermannCHEM AQMPU3913-83-62 14:58:003.8[facility] HermannCHEM DQDMD4050-94-62 14:58:007.8[facility] HermannCHEM PPOYD7995-15-98 14:58:009.0 [facility]annCHEM PCUSI5783-62-65 14:58:0026[facility] HermannCHEM PANEL 2015-09-28 14:58:0056[facility] HermannCHEM UOTBS1189-73-21 14:58:56965Moflddun HermannCHEM OHBMC2329-11-89 14:58:00475Gzbuvfuu HermannCHEM BKHHA7704-39-82 14:58:004.2[facility] HermannCHEM CSRRG2598-86-77 14:58:001.01[facility] HermannCHEM ITHBT9215-63-66 14:58:0019[facility] HermannCHEM FBDUB1270-96-86 14:58:0096 [facility]annCHEM XMFTC5245-32-09 14:58:0019[facility] HermannCHEM PANEL 2015-09-28 14:58:0012.2[facility] HermannCHEM JXRJP3486-31-03 14:58:001.0[facility] HermannCHEM ZIPHK0817-71-83 14:58:004.0[facility] OcoxkmuZOITXWJBTG0294-26-07 14:58:00 Test Item Value Reference Range Interpretation Comments PTT (test code = PTT) 27.0 s 22.9-35.8 [facility] WmcscwvUPNDYKQXAM4318-49-57 14:58:00 Test Item Value Reference Range Interpretation Comments PT (test code = PT) 13.8 s 12.0-14.7 [facility] VgkvlpqNIZMPGPHAN5440-83-07 14:58:001.03[facility] HermannHEMATOLOGY 2015-09-28 14:58:000.1[facility] JyyqcufGPCORSIWGF1439-55-42 14:58:000.8[facility] EfkpiclZIWOMXVGDN6382-67-62 14:58:001.7[facility] VwcfnfmBCIPOYPZNA5135-74-91 14:58:000.5[facility] FwogewuONHCPWDECV6802-50-96 14:58:004.1[facility] XJZSUMVXBR6785-81-89 14:58:007.3[facility] LrnukhbJNWEADLYJX1275-41-76 14:58:002.1 [facility] WechgdlFVGLXXAHZF6980-84-10 14:58:0063.0[facility] HermannHEMATOLOGY 2015-09-28 14:58:0026.8[facility] RmpcsloUQMIDORMEY5525-99-15 14:58:37465Olxfbyce UwmxgqyDDPLOMPJUM4008-11-90 14:58:0013.0[facility] VlaklnwBSOYKLQUWP9936-93-16 14:58:008.6[facility] RcivlgjWZAHILYJCB9667-30-31 14:58:0032.7[facility] FSFGXALPTR5595-91-81 14:58:0039.2[facility] OarbihoDLHWVARITU5471-04-68 14:58:00 91.3[facility] EoxbeuvWQDPETXSLQ6920-74-86 14:58:00 Test Item Value Reference Range Interpretation Comments MCH (test code = MCH) 29.9 pg 27.0-31.0 [facility] TlrxizmLYSUSEJWRH6275-63-68 14:58:0012.8[facility] HermannHEMATOLOGY 2015-09-28 14:58:006.5[facility] YokyazaVHIQSYPARV6199-62-10 14:58:004.29[facility] ZBQJU5282-58-58 14:58:00Yellow *NA*(09/28/15 9:58 AM)[facility] KDYMG3850-49-94 14:58:001.020[facility] STOOL 2015-09-28 14:58:00Clear (09/28/15 9:58 AM)[facility] 2015-09-28 14:58:006.0[facility] IIOMJ6892-97-30 14:58:00Negative *NA*(09/28/15 9:58 AM)[facility] HYSTX6474-34-39 14:58:00Small *ABN*(09/28/15 9:58 AM)[facility] RPXFR2682-28-90 14:58:00Positive *ABN*(09/28/15 9:58 AM)[facility] HYMGI2770-29-05 14:58:00 Negative (09/28/15 9:58 AM)[facility] MOEVO4017-94-78 14:58:0034 [facility] QFCYH9233-23-09 14:58:001[facility]BL[facility] LURHXXQ9858-09-37 14:58:00Negative (09/28/15 9:58 AM)[facility]annCHEM PANEL 2015-09-28 14:58:000.4[facility]annCHEM CWEGQ5853-06-60 14:58:0083[facility]annCHEM VONWD2954-76-39 14:58:0013[facility]annCHEM HGQLD9072-83-58 14:58:0021[facility]annCHEM MJSEX6602-75-64 14:58:003.8[facility]annCHE[facility] XBDGP6826-68-22 14:58:007.8[facility]annCHE[facility] KQDGS9139-18-45 14:58:009.0 [facility]annCHE[facility] QPEHB3158-35-20 14:58:0026[facility]annCHEM PANEL 2015-09-28 14:58:0056[facility]annCHEM HFJTS5543-91-78 14:58:54389Nbcvexqw HermannCHEM VWBHL8616-12-23 14:58:49545Gsudfdja HermannCHEM QMUTP7802-38-45 14:58:004.2[facility]annCHEM CUWBE6410-89-47 14:58:001.01[facility]annCHEM IERDM9419-99-00 14:58:0019[facility]annCHEM NUIIQ7480-83-52 14:58:0096 [facility]annCHE[facility] JKPCQ5244-35-86 14:58:0019[facility]annCHEM PANEL 2015-09-28 14:58:0012.2[facility]annCHEM YIJYI8621-00-25 14:58:001.0[facility]annCHEM GANKK1197-48-53 14:58:004.0[facility] XclnnyiVKWCHUAMEQ1536-99-29 14:58:00 Test Item Value Reference Range Interpretation Comments PTT (test code = PTT) 27.0 s 22.9-35.8 [facility] RszlglaERHUXXXLIC2826-86-34 14:58:00 Test Item Value Reference Range Interpretation Comments PT (test code = PT) 13.8 s 12.0-14.7 [facility] XksbhytBMQKMHTMVD7775-26-72 14:58:001.03[facility]annHEMATOLOGY 2015-09-28 14:58:000.1[facility] AezyxdeELQFLEINWP5377-64-00 14:58:000.8[facility] SnfnkfjCRRUZCJFXY7748-16-65 14:58:001.7[facility] OsewxuiQGXAZTQUYB0857-75-85 14:58:000.5[facility] DomacbbPLYKVNMVAK0232-96-02 14:58:004.1[facility] RHCUKCJLDI9683-10-33 14:58:007.3[facility] CgmxcokJPKNRVRLUO3895-62-18 14:58:002.1 [facility] ThnnldaBJUAEAIFFN3892-10-53 14:58:0063.0[facility]annHEMATOLOGY 2015-09-28 14:58:0026.8[facility] KnabmytHTONWGBHKE2248-63-38 14:58:12254Rrvwtdla AapzrytWKKRENULEL7069-12-69 14:58:0013.0[facility] MxdgmytXZMIEHSBML8391-33-23 14:58:008.6[facility] FbbxzerJCRRIAQYJM4260-40-20 14:58:0032.7[facility] MIERCDVXWG0703-81-90 14:58:0039.2[facility] UvlwbwbBZIYMCNWEM5216-53-47 14:58:00 91.3[facility] LcmzkqrNLMIBNJORS9029-74-68 14:58:00 Test Item Value Reference Range Interpretation Comments MCH (test code = MCH) 29.9 pg 27.0-31.0 [facility] FbwezhoOIIILGTAYD0810-03-07 14:58:0012.8[facility]annHEMATOLOGY 2015-09-28 14:58:006.5[facility] VrtpfjuRBPYUMPWLY6240-68-83 14:58:004.29[facility] EOFBC4022-79-26 14:58:00Yellow *NA*(09/28/15 9:58 AM)[facility] RBPKJ6850-18-92 14:58:001.020[facility] STOOL 2015-09-28 14:58:00Clear (09/28/15 9:58 AM)[facility] STOOL 2015-09-28 14:58:006.0[facility] GSPKW7063-41-08 14:58:00Negative *NA*(09/28/15 9:58 AM)[facility] VYRYN4532-72-02 14:58:00Small *ABN*(09/28/15 9:58 AM)[facility] CKZXF1743-14-55 14:58:00Positive *ABN*(09/28/15 9:58 AM)[facility] EFDBI4326-23-26 14:58:00 Negative (09/28/15 9:58 AM)[facility] CFLDG9714-12-34 14:58:0034 [facility] VLNEQ8039-41-93 14:58:001[facility]BL[facility] QIJHLRF4266-40-45 14:52:00Product available 1(09/28/15 9:52 AM)[facility]LO[facility] XWQGJOE5442-54-55 14:52:00Product available 1(09/28/15 9:52 AM) [facility] HKPULIU6251-25-13 14:52:00Product available 1(09/28/15 9:52 AM)[facility] QWAML8898-95-68 21:37:00Negative (07/07/15 3:37 PM)[facility] SBXWU7887-67-06 21:37:003[facility] NRLVC9377-94-69 21:37:001[facility] HFYGB0055-86-84 21:37:00 Small *ABN*(07/07/15 3:37 PM)[facility] ZVSQW7618-54-67 21:37:00 Negative (07/07/15 3:37 PM)[facility] ZFHSQ2348-05-66 21:37:00 Negative *NA*(07/07/15 3:37 PM)[facility] WPTWK2869-84-90 21:37:00 6.0[facility] AAPKJ3775-44-82 21:37:00Slight *ABN*(07/07/15 3:37 PM)[facility] HGILL0571-25-44 21:37:001.014[facility] HJYVN5691-66-63 21:37:00Negative (07/07/15 3:37 PM)[facility] HTXOW0350-01-16 21:37:003[facility] APSLS2344-65-59 21:37:001 [facility] DOXBX8516-68-04 21:37:00Small *ABN*(07/07/15 3:37 PM) [facility] JZEYR7706-41-85 21:37:00Negative (07/07/15 3:37 PM) [facility] KAIXF3828-25-05 21:37:00Negative *NA*(07/07/15 3:37 PM) [facility] FGJAJ9497-91-80 21:37:006.0[facility] RLTFR7917-79-97 21:37:00Slight *ABN*(07/07/15 3:37 PM)[facility] YMUZG6251-79-08 21:37:001.014[facility] AIAPN9151-57-05 21:37:00 Negative (07/07/15 3:37 PM)[facility] PJFJW1482-36-29 21:37:003 [facility] NMGVE6197-34-07 21:37:001[facility] ZTHXB3325-40-17 21:37:00Small *ABN*(07/07/15 3:37 PM)[facility] SUBMB2610-90-55 21:37:00Negative (07/07/15 3:37 PM)[facility] GUDDI2147-85-73 21:37:00Negative *NA*(07/07/15 3:37 PM)[facility] CGRPV5995-44-60 21:37:006.0[facility] AND EHPJP9737-92-22 21:37:00 Slight *ABN*(07/07/15 3:37 PM)[facility] FTNYV9589-35-36 21:37:00 1.014[facility]annCHEM WOMXV9882-05-72 10:40:0060[facility]annCHEM PANEL 2015-07-07 10:40:004.1[facility]annCHE[facility] CLDSB1035-49-66 10:40:0024[facility]annCHEM UHMXY8812-85-28 10:40:000.96[facility]annCHEM UKIEW5485-43-33 10:40:53881Dlggvryn HermannCHEM MVUXW4119-45-45 10:40:46306Dcbgrecs HermannCHEM RUYAF7635-62-14 10:40:0023[facility]annCHE[facility] WFZVD6131-08-56 10:40:008.4 [facility]CHE[facility] MVSQX0605-93-83 10:40:96519Rgubhexp HermannCHEM PANEL 2015-07-07 10:40:0013.1[facility] BojqmzhVAPIUREWGG7542-73-86 10:40:006.7[facility] AekpoerIHGVHKAZPY5715-75-65 10:40:001.7[facility] XhypmzxLHGUNCWZIR2929-40-57 10:40:006.1[facility] UuazgnqDRGUSRBIDF2969-41-93 10:40:001.0[facility] UNRNDWEBMJ1436-26-19 10:40:001.6[facility] ImixzseNOGLSDPNJR5872-94-96 10:40:000.1 [facility] CzwiuhpNDWEXPZNWW0465-71-95 10:40:000.6[facility]annHEMATOLOGY 2015-07-07 10:40:000.1[facility] DufkcprITTXEHGIKC2251-32-23 10:40:0019.3[facility] UptkvilWACAYHVVTR3770-24-93 10:40:0071.4[facility] KjpscddNXDGPWJZEW5104-30-34 10:40:009.1[facility] VbnkgbqIAJCMYGVRG2070-49-44 10:40:0013.1[facility] DLSJYRYNWN6186-91-24 10:40:0034.1[facility] RrukztpZIQHAVBAZK5213-85-53 10:40:00 Test Item Value Reference Range Interpretation Comments MCH (test code = MCH) 30.6 pg 27.0-31.0 [facility] LvotxsyTJPJEBVGHZ3974-65-64 10:40:00553Smgfxpbz HermannHEMATOLOGY 2015-07-07 10:40:008.6[facility] YhkfzfoLOUXRNPYSH6714-40-74 10:40:0036.9[facility] SusmuryUXRFDWHPEF2976-71-28 10:40:0012.6[facility] MlynlchWQOQVIHNEV7952-16-17 10:40:004.12[facility] QowxfkeALGNHZKIGE3487-34-63 10:40:0089.7[facility] CHEM JHONC5465-62-11 10:40:0060[facility]annCHE[facility] QQQOU3647-11-20 10:40:004.1 [facility]annCHE[facility] ASKHL5144-31-39 10:40:0024[facility]annCHEM PANEL 2015-07-07 10:40:000.96[facility]annCHEM SCRWI2504-54-79 10:40:06929Ouxxiehn HermannCHEM JRHAX4913-90-71 10:40:77387Uxojoqfb HermannCHEM MGQRQ8752-63-84 10:40:0023[facility]annCHEM VYAUL0591-54-13 10:40:008.4[facility]annCHEM AUNAE3159-80-21 10:40:73578Tsiquava HermannCHEM JBQGD3867-58-61 10:40:0013.1 [facility] ZycpbzsBEYETHWCPA8772-62-29 10:40:006.7[facility]annHEMATOLOGY 2015-07-07 10:40:001.7[facility] VzfwmjgWBKCHCNHBG7840-96-08 10:40:006.1[facility] RtxxknmEOVDOYNDKH3514-73-56 10:40:001.0[facility] FunmcjlZDJNHTZPUD1604-93-97 10:40:001.6[facility] AqxhquaMKIRNGUEHU5512-22-73 10:40:000.1[facility] SQUFGFBMYX1438-22-60 10:40:000.6[facility] EmfeumzYVHOPOGEUD4870-19-45 10:40:000.1 [facility] RrutzmiAGGJGXIWPS6339-49-96 10:40:0019.3[facility]annHEMATOLOGY 2015-07-07 10:40:0071.4[facility] XlqgedgDRNERPDPWS2952-45-99 10:40:009.1[facility] TxzwqewRAAHODMZTL0593-70-53 10:40:0013.1[facility] WffabvbEECPAUTGVF7148-38-39 10:40:0034.1[facility] CjvkijiUEHBYTYVUB7251-84-54 10:40:00 Test Item Value Reference Range Interpretation Comments MCH (test code = MCH) 30.6 pg 27.0-31.0 [facility] ZfoteveYTZBQMHCCE2753-85-69 10:40:34307Wuwtdnkg HermannHEMATOLOGY 2015-07-07 10:40:008.6[facility] CebboouRFPBZDDDSX8332-16-45 10:40:0036.9[facility] WqbsqlpOVAKOUKVSK6188-52-04 10:40:0012.6[facility] PoxkjgtBWWUVQDOCK9195-03-88 10:40:004.12[facility] CzkdfgvPNDMRIIUAB5561-18-28 10:40:0089.7[facility] CHEM FENXC5306-87-69 10:40:0060[facility]annCHEM RAIGY6930-61-49 10:40:004.1 [facility]annCHEM OHLLE1982-93-70 10:40:0024[facility]annCHEM PANEL 2015-07-07 10:40:000.96[facility]annCHEM CGCWS2997-77-21 10:40:54767Ppctggku HermannCHEM HFGTX1715-96-17 10:40:46073Vuwmkifd HermannCHEM MZRMO2879-27-81 10:40:0023[facility]annCHE[facility] LATVK8441-54-84 10:40:008.4[facility]annCHEM IVJWX7141-72-44 10:40:35349Lugsyyis HermannCHEM QWBBK9093-45-60 10:40:0013.1 [facility] LytikiiYPWWVRRYVF7079-53-05 10:40:006.7[facility]annHEMATOLOGY 2015-07-07 10:40:001.7[facility] NayhyyeWJWBQRMEXM4673-97-31 10:40:006.1[facility] JaabtvyZISZCSVNKA1577-17-48 10:40:001.0[facility] GxsujrsLLDMWXUKYC9793-86-46 10:40:001.6[facility] NanztecVOAEJECIOS0162-07-77 10:40:000.1[facility] DPZFWKDGUM8604-14-64 10:40:000.6[facility] XkdebuhBUOMVVRGLA9540-33-52 10:40:000.1 [facility] OxobhwtXVGMUNGUGB2288-70-22 10:40:0019.3[facility]annHEMATOLOGY 2015-07-07 10:40:0071.4[facility] VyitpjoLSMDPTRUKU2215-42-74 10:40:009.1[facility] QzoptlsDQVDZMSMMU9096-22-82 10:40:0013.1[facility] BawhyibVMTPEOGPSS0762-00-97 10:40:0034.1[facility] ObtnnyuZHNJTYYXUR1323-21-33 10:40:00 Test Item Value Reference Range Interpretation Comments MCH (test code = MCH) 30.6 pg 27.0-31.0 [facility] JbpbfxaRLUZVNTKDP2204-40-37 10:40:07663Zbmrcdxc HermannHEMATOLOGY 2015-07-07 10:40:008.6[facility] XvtgpvgVGDPEUCYZY3120-75-43 10:40:0036.9[facility] ZraewfdIUPESUQZSF6429-04-36 10:40:0012.6[facility] IuzoamyGZMOCOYYJV3933-61-24 10:40:004.12[facility] NmeqbmjWOERJMAAJS1142-18-90 10:40:0089.7[facility] CHEM XYCVS2218-83-33 05:13:001.05[facility]annCHEM MKRBG3862-24-05 05:13:0054 [facility] LdhtxvaCKRPBRBMTY4095-71-81 05:13:65495Uvmcyndo HermannCHEM PANEL 2015-07-07 05:13:001.05[facility]annCHEM BTRMR7292-97-67 05:13:0054[facility] RoidxuxWUQHPEPKXX8988-41-26 05:13:95649Bwifaeeq HermannCHEM XRTFK6118-81-05 05:13:001.05[facility]annCHEM WQPGN7136-64-02 05:13:0054[facility] VYGBKJDBPY3891-82-11 05:13:34942Ufixrtsy HermannCHEM JJGQU1015-49-64 00:59:84250 [facility]annCHE[facility] IDCBF3202-88-52 00:59:000.8[facility]annCHEM PANEL 2015-07-07 00:59:0014.3[facility]annCHEM UVHXG3710-22-20 00:59:0021[facility]annCHEM PVSBY1089-55-57 00:59:004.6[facility]annCHEM APRHM2635-12-38 00:59:0046[facility]annCHE[facility] SOFMX1222-47-27 00:59:004.3[facility]annCHEM FSRRI6042-15-37 00:59:009.1[facility]annCHE[facility] FCYDG8834-91-70 00:59:88678 [facility]annCHE[facility] KMDCE2783-07-48 00:59:008.2[facility]annCHEM PANEL 2015-07-07 00:59:0024[facility]annCHEM GSEAF6007-14-68 00:59:0024[facility]annCHEM JRHXN5149-43-66 00:59:60568Owfgjgvs HermannCHEM VRSIF1126-20-16 00:59:003.6[facility]annCHE[facility] ZIKCV5561-53-69 00:59:05705Dhqhvjob HermannCHEM XLPDV0723-29-35 00:59:000.6[facility]annCHEM DDVNP9201-18-39 00:59:001.19 [facility]annCHE[facility] CTBJK0901-69-05 00:59:22321Dlwqzobp HermannCHEM PANEL 2015-07-07 00:59:0025[facility]annCHEM KRZYK6364-71-07 00:59:65384Swrrvqny FaoaistDJVCHYENGH9055-37-75 00:59:0011.3[facility] XuvzvlqFGAGDJSVFX0676-80-81 00:59:0082.4[facility] BmytdvaTEQDFXNLSE9160-71-44 00:59:000.8[facility] VOVXOHEDGL8176-51-31 00:59:001.5[facility] UjlusnpQGIJTFJRBT4420-67-97 00:59:000.1 [facility] KuqpsgmHXWCGXFNPG0012-27-96 00:59:000.2[facility]annHEMATOLOGY 2015-07-07 00:59:005.6[facility] ZijadvlAVCBINAAQX3776-48-11 00:59:000.5[facility] XfcfxapMZWWZDXBAV0959-34-44 00:59:0011.1[facility] QppmnciIPZBDWCHFL1520-21-40 00:59:001.06[facility] BgyzmesFWSVMWANSE2130-25-36 00:59:00 Test Item Value Reference Range Interpretation Comments PTT (test code = PTT) 27.6 s 22.9-35.8 [facility] BcoshmhPVBIPSFXHQ6470-10-79 00:59:00 Test Item Value Reference Range Interpretation Comments PT (test code = PT) 14.1 s 12.0-14.7 [facility] FukdpeyAAHDLMPNIA1232-98-99 00:59:00888Guojwvoq HermannHEMATOLOGY 2015-07-07 00:59:009.2[facility] ZvjdutxTJXKAYZRRZ4558-54-24 00:59:0040.9[facility] WzbkgwkKRVIWPTCMV7245-23-49 00:59:004.52[facility] PrwqsnzZECXIMLGSF7762-68-62 00:59:0013.6[facility] MpcrlrsCUJXERIYTA4312-84-77 00:59:0013.1[facility] ASAFSZUBPG1288-59-72 00:59:0090.4[facility] KgbkjmdHSARFUAWAM7648-36-33 00:59:00 Test Item Value Reference Range Interpretation Comments MCH (test code = MCH) 30.1 pg 27.0-31.0 [facility] FpvtbjuBSRBFKJPOV6428-93-11 00:59:0033.3[facility]annHEMATOLOGY 2015-07-07 00:59:0013.4[facility]annCHEM NJBUH8638-63-69 00:59:01759Wjdubdad HermannCHEM MQRKB3392-85-21 00:59:000.8[facility]annCHEM AREPP3082-14-91 00:59:0014.3[facility]annCHEM KRHNK1363-45-11 00:59:0021[facility]annCHEM PSJAJ9782-32-47 00:59:004.6[facility]annCHEM PRAEU0055-01-03 00:59:0046 [facility]annCHE[facility] VTMSX0175-99-36 00:59:004.3[facility]annCHEM PANEL 2015-07-07 00:59:009.1[facility]annCHEM SDERK4067-00-04 00:59:95098Bmagvklu HermannCHEM DQRCS7239-72-08 00:59:008.2[facility]annCHEM KIZKY1190-25-92 00:59:0024[facility]annCHEM DJTJK7013-17-46 00:59:0024[facility]annCHEM ZKCGS3384-31-43 00:59:65104Bhanxfpm HermannCHEM INSQM4265-58-58 00:59:003.6 [facility]annCHE[facility] IIESI3484-16-72 00:59:61683Ubfgzdvm HermannCHEM PANEL 2015-07-07 00:59:000.6[facility]annCHEM YQJQG6413-73-38 00:59:001.19[facility]annCHEM AVBJJ5197-35-81 00:59:72211Szwlkhjq HermannCHEM RRFFH4555-28-21 00:59:0025[facility]annCHEM KQMRS7026-29-43 00:59:13747Anrzkmlu [place] LYYPBAKWBZ7500-25-69 00:59:0011.3[facility] DcgyefnLSWWIVSHEP6979-43-76 00:59:00 82.4[facility] SzqocoaESLMZBAETV3251-48-88 00:59:000.8[facility]annHEMATOLOGY 2015-07-07 00:59:001.5[facility] JkdkwnpZNTEYMTEFZ1310-99-48 00:59:000.1[facility] GbfeuvvPRACTHGVQZ3333-79-11 00:59:000.2[facility] DefepyqJTUYVYDZEA6971-07-27 00:59:005.6[facility] AqhjlscSCALUKOOBZ5919-73-31 00:59:000.5[facility] TTKCUTWIEK2312-09-87 00:59:0011.1[facility] ZjabnjrABBKGHIRCQ0794-22-14 00:59:00 1.06[facility] NyqlbbvXMQNGCANFU7121-42-35 00:59:00 Test Item Value Reference Range Interpretation Comments PTT (test code = PTT) 27.6 s 22.9-35.8 [facility] LoeaaolMTDIRVLZJN1649-11-17 00:59:00 Test Item Value Reference Range Interpretation Comments PT (test code = PT) 14.1 s 12.0-14.7 [facility] QvtrjzgENIXOEKUPE2876-70-58 00:59:34347Wkgpnxqu HermannHEMATOLOGY 2015-07-07 00:59:009.2[facility] ZbhlahiURLXDHATON8114-27-48 00:59:0040.9[facility] OhxwzbaZPWQNWXWWA3797-04-64 00:59:004.52[facility] RmpwsoqCPCKXEGGBF7046-13-19 00:59:0013.6[facility] EljteiiQCRWNMHUDZ2875-12-68 00:59:0013.1[facility] LHZQZOEEXD7436-41-02 00:59:0090.4[facility] FtbyngaXJQZVUNYSN7076-52-33 00:59:00 Test Item Value Reference Range Interpretation Comments MCH (test code = MCH) 30.1 pg 27.0-31.0 [facility] AtpsxpoUINJBTPFBT7350-92-93 00:59:0033.3[facility] HermannHEMATOLOGY 2015-07-07 00:59:0013.4[facility]annCHEM QBEPH3061-87-69 00:59:91142Dwvqmrkw HermannCHEM GTXBI4275-97-24 00:59:000.8[facility]annCHEM ZRFXY0898-79-88 00:59:0014.3[facility]annCHEM CFKKA0480-33-70 00:59:0021[facility]annCHEM DATNY3778-15-20 00:59:004.6[facility]annCHEM OBHUT9576-93-04 00:59:0046 [facility]annCHEM EFVTE5140-24-43 00:59:004.3[facility]annCHEM PANEL 2015-07-07 00:59:009.1[facility]annCHEM GRNQJ7322-86-98 00:59:56429Slzihsee HermannCHEM YXHBV2167-56-36 00:59:008.2[facility]annCHEM NYYDR4554-99-84 00:59:0024[facility]annCHEM HYWOV3302-78-86 00:59:0024[facility]annCHEM HQBSL2861-02-18 00:59:77278Jxpuzxgb HermannCHEM VCWWB1325-74-01 00:59:003.6 [facility]annCHE[facility] CRXWP3683-94-74 00:59:41494Wokvzprv HermannCHEM PANEL 2015-07-07 00:59:000.6[facility]annCHEM LPPNB0313-87-91 00:59:001.19[facility]annCHEM DCIJV2525-48-11 00:59:01419Gwezmgmn HermannCHEM JSPNC1823-38-55 00:59:0025[facility]annCHEM YRJJV6312-40-96 00:59:43682Vmflfqwz [facility] PCRKNFZUGT3389-78-01 00:59:0011.3[facility] WrwyxndEXMDEBWRVH8093-16-19 00:59:00 82.4[facility] WlbvlzlFTZBJFAIEM7211-68-31 00:59:000.8[facility]annHEMATOLOGY 2015-07-07 00:59:001.5[facility] SfcxcbqHNSVXWCBFC6646-69-84 00:59:000.1[facility] SkufnbjGHQLUHVWRO4173-22-30 00:59:000.2[facility] ZbwssovKSYPTOVTCG6946-44-11 00:59:005.6[facility] CfcgddaRDTWCPHDAL0432-82-82 00:59:000.5[facility] OCFTUECKWV0907-91-45 00:59:0011.1[facility] IrurbxvALACCRYOUM4187-89-18 00:59:00 1.06[facility] MqvuloiPLKZQNEAEH5437-35-58 00:59:00 Test Item Value Reference Range Interpretation Comments PTT (test code = PTT) 27.6 s 22.9-35.8 [facility] XzvbnriHLZZBEPSZN3186-53-68 00:59:00 Test Item Value Reference Range Interpretation Comments PT (test code = PT) 14.1 s 12.0-14.7 [facility] VqkayrjJJTJCPOFOL3936-25-85 00:59:93099Ogjyphjo HermannHEMATOLOGY 2015-07-07 00:59:009.2[facility] PsgbixnMDOAYUUFZV7970-82-16 00:59:0040.9[facility] VcnfcipNJVJLUDLMT0555-56-26 00:59:004.52[facility] YuztfwfQARNMBGSCN4606-34-78 00:59:0013.6[facility] TmcjbtqZQBSFHSWMZ1650-13-95 00:59:0013.1[facility] ATKHRIXWYX1032-95-58 00:59:0090.4[facility] TsgwttoRRIJJVCYOG7048-77-98 00:59:00 Test Item Value Reference Range Interpretation Comments MCH (test code = MCH) 30.1 pg 27.0-31.0 [facility] HwncuihWAYPPYDAXA3592-85-53 00:59:0033.3[facility]annHEMATOLOGY 2015-07-07 00:59:0013.4[facility]annBL[facility] BANK WNUAILM0982-39-05 17:59:00 Negative (07/02/15 11:59 AM)[facility]annCHEM ABZHB0872-04-17 17:59:004.0 [facility]annCHE[facility] HJGOP2139-22-88 17:59:0018[facility]annCHEM PANEL 2015-07-02 17:59:0011.1[facility]annCHEM PGKBW7194-71-92 17:59:001.0[facility]annCHEM BOTXV9165-23-03 17:59:0056[facility]annCHEM CPCJI4712-06-48 17:59:009.4[facility]annCHEM RVLRD3905-79-47 17:59:52449Stzlzeaj HermannCHEM JXBAY4220-10-85 17:59:004.1[facility]annCHEM WWPQN0196-08-74 17:59:83485 [facility]annCHEM NYJMU8653-12-70 17:59:001.01[facility]annCHEM PANEL 2015-07-02 17:59:0018[facility]annCHEM IVWAI0873-38-86 17:59:34230Eadkauyj HermannCHEM GVIFC1351-34-54 17:59:0083[facility]annCHEM YVDNF8625-06-36 17:59:0013[facility]annCHEM FSQDK5988-61-14 17:59:008.1[facility]annCHEM PWIRC6310-09-51 17:59:000.6[facility]annCHEM HCBWN4603-23-81 17:59:0026 [facility]annCHE[facility] VKOTI4283-48-39 17:59:004.1[facility]annCHEM PANEL 2015-07-02 17:59:0036[facility] DmtagnbVWZRCOCWQR1561-44-27 17:59:0033.7[facility] DuxngcjINPBRVOYIY0136-56-18 17:59:0013.6[facility] TfrzbzkTFFPOCFINT4277-25-34 17:59:0090.4[facility] NnwenucGABDSOGRGP0364-11-11 17:59:0040.4[facility] DKQAHQGLGA7993-40-56 17:59:00 Test Item Value Reference Range Interpretation Comments MCH (test code = MCH) 30.5 pg 27.0-31.0 [facility] HgvxwsxRWLBACEFWA1645-43-55 17:59:94635Kfoqkzgk HermannHEMATOLOGY 2015-07-02 17:59:0013.2[facility] BiggwwpUQODZOMGTH4563-52-79 17:59:008.7[facility] XmjuqaoKINGVVKLPR4932-09-63 17:59:004.47[facility] KrkdjkqMRXIVYWECW4918-27-39 17:59:006.5[facility] NsegrnxMCCJVSJFLI8631-44-89 17:59:000.1[facility] DLYCPPTWMG5164-51-41 17:59:000.4[facility] YtlfiglQQAZQZYWXC4854-02-71 17:59:001.9 [facility] KztrcbgJBVMPXWHZI6807-90-93 17:59:004.1[facility] HermannHEMATOLOGY 2015-07-02 17:59:005.6[facility] LucxvphSRWJPJCOVU0190-64-22 17:59:001.3[facility] MzdywzzZSDVPYUPXB9663-39-92 17:59:0029.2[facility] BrijmrmQBWDDVWCVO0483-58-33 17:59:000.8[facility] HzrsblhJWZKIHGIQJ0583-16-93 17:59:0063.1[facility] HZASPNJAMD6917-74-57 17:59:00 Test Item Value Reference Range Interpretation Comments PTT (test code = PTT) 28.1 s 22.9-35.8 [facility] BmfdkyiTJQRCQSTWI0332-23-40 17:59:001.11[facility] HermannHEMATOLOGY 2015-07-02 17:59:00 Test Item Value Reference Range Interpretation Comments PT (test code = PT) 14.6 s 12.0-14.7 [facility] KQIJV2124-45-69 17:59:001.021[facility] ZYDSO1607-37-54 17:59:005.0[facility] ZYMPL1936-16-19 17:59:00 Yellow *NA*(07/02/15 11:59 AM)[facility] CAVKR0115-63-72 17:59:003 [facility] FJVWM0922-10-87 17:59:00Marked *ABN*(07/02/15 11:59 AM) [facility] KLTPS2378-06-53 17:59:001[facility] WRZYQ4344-49-27 17:59:00Negative *NA*(07/02/15 11:59 AM)[facility] PLOQO0754-50-10 17:59:00Negative (07/02/15 11:59 AM)[facility] CCDPB2521-45-93 17:59:003[facility] BAIBN6440-81-31 17:59:00 Negative (07/02/15 11:59 AM)[facility] SEZBV5508-33-13 17:59:00 Negative (07/02/15 11:59 AM)[facility] AQRTCLQ4893-17-72 17:59:00 Negative (07/02/15 11:59 AM)[facility]annCHEM VMGYC9021-33-25 17:59:004.0 [facility]annCHEM FUBGB6268-47-91 17:59:0018[facility] HermannCHEM PANEL 2015-07-02 17:59:0011.1[facility] HermannCHEM KXZGZ4172-02-95 17:59:001.0[facility] HermannCHEM IBUTF7835-94-24 17:59:0056[facility]annCHEM EPPWK3416-43-93 17:59:009.4[facility] HermannCHEM CGKYX6498-86-53 17:59:41172Jnqymhvo HermannCHEM XATTF6797-18-43 17:59:004.1[facility]annCHEM ADXEI5456-87-52 17:59:17745 [facility]annCHEM YPCGJ3761-43-12 17:59:001.01[facility]annCHEM PANEL 2015-07-02 17:59:0018[facility]annCHEM MLPNO8978-86-88 17:59:02256Lyevkmay HermannCHEM HJJTK3266-69-05 17:59:0083[facility] HermannCHEM HQRFA5526-86-59 17:59:0013[facility]annCHEM SZDJQ4329-19-54 17:59:008.1[facility]annCHEM RIVJR1411-60-14 17:59:000.6[facility] HermannCHEM UIEMP2630-59-37 17:59:0026 [facility]annCHEM WQNMP5087-17-60 17:59:004.1[facility] HermannCHEM PANEL 2015-07-02 17:59:0036[facility] QvsmlouANDHXUMXIU6346-89-15 17:59:0033.7[facility] SdbqtnlWVUWORJOOT9278-37-23 17:59:0013.6[facility] WntjnypXPFLMKGKBQ7769-41-38 17:59:0090.4[facility] EzhpcmhTCLRKFXXEO7302-93-73 17:59:0040.4[facility] KCSGOQEMRS2290-38-29 17:59:00 Test Item Value Reference Range Interpretation Comments MCH (test code = MCH) 30.5 pg 27.0-31.0 [facility] BuasfatTGOMQVGKRW7429-73-10 17:59:17498Wuuslnam HermannHEMATOLOGY 2015-07-02 17:59:0013.2[facility] XlagcvzUAPNVGYDYL3186-56-83 17:59:008.7[facility] ZgucovbYXATTABIUX4329-88-43 17:59:004.47[facility] EyfdtmsTBVRKIUPWC7976-11-42 17:59:006.5[facility] RjvbxgoESNEEBDLSL7268-30-66 17:59:000.1[facility] UUZEBWYVIE4747-51-72 17:59:000.4[facility] IfdlrxjEDOJMFUGWB1111-82-65 17:59:001.9 [facility] ExqaxgpVVQJPITQPM4006-00-92 17:59:004.1[facility] HermannHEMATOLOGY 2015-07-02 17:59:005.6[facility] HcmmdbwVSYVRZZRGX7318-46-44 17:59:001.3[facility] HnxwsapGSKZJRJTAZ4977-66-22 17:59:0029.2[facility] PnwztvxSJYJDMVGGB7973-48-98 17:59:000.8[facility] GqahizqMJYYHHQWRO2647-26-94 17:59:0063.1[facility] UQMCKHUMUE4230-58-98 17:59:00 Test Item Value Reference Range Interpretation Comments PTT (test code = PTT) 28.1 s 22.9-35.8 [facility] NqpvocgIZHJCOPQCH3202-42-61 17:59:001.11[facility] HermannHEMATOLOGY 2015-07-02 17:59:00 Test Item Value Reference Range Interpretation Comments PT (test code = PT) 14.6 s 12.0-14.7 [facility] BCABL7167-93-65 17:59:001.021[facility] KPGKT9835-73-70 17:59:005.0[facility] BNYDT9032-19-57 17:59:00 Yellow *NA*(07/02/15 11:59 AM)[facility] VLIOO4285-85-51 17:59:003 [facility] DGKVS8275-07-88 17:59:00Marked *ABN*(07/02/15 11:59 AM) [facility] AKXWN4716-90-82 17:59:001[facility] OVJWE0723-62-80 17:59:00Negative *NA*(07/02/15 11:59 AM)[facility] BLESI1963-32-21 17:59:00Negative (07/02/15 11:59 AM)[facility] BCMTZ5552-76-99 17:59:003[facility] OYWIH4990-84-50 17:59:00 Negative (07/02/15 11:59 AM)[facility] VTIZW7241-25-13 17:59:00 Negative (07/02/15 11:59 AM)[facility] JKDFSPI6613-48-31 17:59:00 Negative (07/02/15 11:59 AM)[facility]annCHE[facility] DVUZZ2671-19-65 17:59:004.0 [facility]CHE[facility] SBTDC7401-23-58 17:59:0018[facility]annCHEM PANEL 2015-07-02 17:59:0011.1[facility]annCHE[facility] CUOXO5993-68-44 17:59:001.0[facility]annCHE[facility] KVGOX9070-62-22 17:59:0056[facility]annCHE[facility] GHGVK4917-67-42 17:59:009.4[facility]annCHE[facility] QLWNX4971-08-29 17:59:15461Sycosnxb HermannCHEM TYSJO6376-84-94 17:59:004.1[facility]annCHE[facility] OLWFA9540-08-76 17:59:13596 [facility]CHE[facility] NJCSL0557-97-16 17:59:001.01[facility]annCHEM PANEL 2015-07-02 17:59:0018[facility]annCHE[facility] TGZCX6925-44-07 17:59:59929Dkkmolkc HermannCHEM MIIKE7806-47-38 17:59:0083[facility]annCHE[facility] QMBHU3201-40-84 17:59:0013[facility]annCHE[facility] QLCTM8185-27-95 17:59:008.1[facility]annCHE[facility] KASBY6865-89-02 17:59:000.6[facility]annCHE[facility] XXPXR6321-72-00 17:59:0026 [facility]CHE[facility] ZMVKA4301-24-63 17:59:004.1[facility]annCHEM PANEL 2015-07-02 17:59:0036[facility] PuibwyyJHATFLRZEE1985-66-31 17:59:0033.7[facility] NbvaosuVNRAWIMHCF2564-94-28 17:59:0013.6[facility] NuajtxdDCMWOMSZWA9086-30-42 17:59:0090.4[facility] HtghouyOLGZHTMSSJ0151-07-90 17:59:0040.4[facility] POBSNEQFQJ7475-12-55 17:59:00 Test Item Value Reference Range Interpretation Comments MCH (test code = MCH) 30.5 pg 27.0-31.0 [facility] GkawnqmAREEZHRMLX0609-70-99 17:59:33200Punyrzcg HermannHEMATOLOGY 2015-07-02 17:59:0013.2[facility] SddgirvFBDQUQBTUJ7285-22-36 17:59:008.7[facility] TpacpmrYBHHAHTLYI8083-93-28 17:59:004.47[facility] FbgdetmZAHGFSEETW1832-47-92 17:59:006.5[facility] JzudhglTWBGBERTQQ3419-11-38 17:59:000.1[facility] CIJBALYWGK1238-00-30 17:59:000.4[facility] CgqkueiZTJPXDDOWL9566-79-19 17:59:001.9 [facility] GqxsiyuVSCNVFDYGH9501-70-25 17:59:004.1[facility]annHEMATOLOGY 2015-07-02 17:59:005.6[facility] JrqwrqbQQNQIMGFOY3957-10-73 17:59:001.3[facility] DnlczqiCPPQXYFHYB4870-98-07 17:59:0029.2[facility] UjqdnmhUQWFEWWASR3435-54-12 17:59:000.8[facility] NvnspyyLXXLMNPBBX4272-09-81 17:59:0063.1[facility] PYQWTVKLLE1637-19-25 17:59:00 Test Item Value Reference Range Interpretation Comments PTT (test code = PTT) 28.1 s 22.9-35.8 [facility] DoudikuQUGJYVXYDQ5787-34-56 17:59:001.11[facility]annHEMATOLOGY 2015-07-02 17:59:00 Test Item Value Reference Range Interpretation Comments PT (test code = PT) 14.6 s 12.0-14.7 [facility] YOVBH4346-77-24 17:59:001.021[facility] HEVZG4232-50-89 17:59:005.0[facility] CQLIE9016-60-35 17:59:00 Yellow *NA*(07/02/15 11:59 AM)[facility] RRZVW9104-97-99 17:59:003 [facility] WFCNR6710-39-55 17:59:00Marked *ABN*(07/02/15 11:59 AM) [facility] CBIXR1258-91-19 17:59:001[facility] ZSEOS3261-17-42 17:59:00Negative *NA*(07/02/15 11:59 AM)[facility] EGMSQ2640-15-52 17:59:00Negative (07/02/15 11:59 AM)[facility] LLISL0756-59-32 17:59:003[facility] RDFBE7300-16-88 17:59:00 Negative (07/02/15 11:59 AM)[facility] TGJWG2316-17-73 17:59:00 Negative (07/02/15 11:59 AM)[facility]annBL[facility]OD BANK WMPXYYL1977-04-38 17:17:00 Product available 1(07/02/15 11:17 AM)[facility]BL[facility] BANK RESULTS 2015-07-02 17:17:00Product available 1(07/02/15 11:17 AM)[facility] FXBAFFC8644-35-11 17:17:00Product available 1(07/02/15 11:17 AM)[facility] MDTKGZO2260-70-30 11:47:00Negative (08/11/14 6:47 AM)[facility]annCHEM NPMYJ6056-44-44 11:47:003.4[facility]annCHEM MGLOE9857-45-43 11:47:008.5[facility]annCHEM OVLKT8070-96-24 11:47:0057[facility]annCHE[facility] IZJUN8497-21-36 11:47:001.0[facility]annCHEM NZJRM9529-84-70 11:47:33351 [facility]CHE[facility] XHPNP4939-17-75 11:47:004.1[facility]annCHEM PANEL 2014-08-11 11:47:28789Runglzkc HermannCHEM SGXYZ4972-77-57 11:47:0066[facility]annCHEM UYVAZ9383-79-64 11:47:000.3[facility]annCHEM YNUBS9615-27-16 11:47:0013[facility]annCHEM BUUGZ2561-61-90 11:47:0016[facility]annCHEM WMVJU9227-59-94 11:47:007.4[facility]annCHEM PENSF0132-85-43 11:47:0026 [facility]annCHE[facility] PYLDR3178-96-83 11:47:0023[facility]annCHEM PANEL 2014-08-11 11:47:0097[facility]annCHEM DRXTG5611-81-69 11:47:0023[facility]annCHEM HVGXQ2346-67-98 11:47:0010.1[facility]annCHEM GGIGQ1278-31-75 11:47:004.0[facility]annCHEM TPOQB4491-39-59 11:47:000.8[facility] MYNCKMAMIL2610-47-85 11:47:008.9[facility] YwpoemoEPYTQBCLXD6028-95-45 11:47:75835 [facility] HblflhoYJQXHIFXNW5698-09-42 11:47:0012.0[facility]annHEMATOLOGY 2014-08-11 11:47:003.88[facility] YqvtejxQGPZTFPJVZ0081-72-31 11:47:006.7[facility] UslogumQTQOVSZMJS7348-12-61 11:47:0013.6[facility] VfsqvifEKSXWIMGKF3171-59-45 11:47:0034.0[facility] XxuymcxPIIJWTYKSW0429-84-93 11:47:00 Test Item Value Reference Range Interpretation Comments MCH (test code = MCH) 30.9 pg 27.0-31.0 [facility] LsjqevnTLLHCLBMYY1039-33-85 11:47:0090.7[facility]annHEMATOLOGY 2014-08-11 11:47:0035.2[facility] FpjfxshFSRNCNWBBP1974-74-09 11:47:003.9[facility] BokeswsVTENSSFHJJ1562-71-60 11:47:002.1[facility] UzisoxsKUVZDHFBJC2939-85-56 11:47:007.2[facility] VdolqkpBJUGRCIXYL0284-72-06 11:47:002.9[facility] KYSSMEBMCK3379-63-42 11:47:000.6[facility] MjtidxbHWLZBTXYZB7205-35-24 11:47:000.5 [facility] CksmowiFNXXJOLZZO7638-16-95 11:47:000.2[facility]annHEMATOLOGY 2014-08-11 11:47:0031.7[facility] BrlfrqeTLCANOLBSZ7231-01-24 11:47:0057.[facility]orial JdibmrtVXLDDFDICP5272-12-34 11:47:001.00[facility] TktxtpjVMGWNSQMMF2526-63-68 11:47:00 Test Item Value Reference Range Interpretation Comments PTT (test code = PTT) 28.3 s 22.9-35.8 [facility] IvbdqhyFCIPIBPZII4573-01-11 11:47:00 Test Item Value Reference Range Interpretation Comments PT (test code = PT) 13.2 s 12.0-14.7 [facility] EOYTORR6645-03-57 11:47:00Negative (08/11/14 6:47 AM) [facility]annCHEM OVMDU3381-93-35 11:47:003.4[facility]annCHEM PANEL 2014-08-11 11:47:008.5[facility]annCHEM PHFYN6357-93-34 11:47:0057[facility]annCHEM EGDXJ7172-19-51 11:47:001.0[facility]annCHEM FIOIQ7047-61-45 11:47:42579Obvetflu HermannCHEM YGRGM4303-56-67 11:47:004.1[facility]annCHEM PWWEZ0480-64-61 11:47:12342Golumqxp HermannCHEM RTHOF4222-54-32 11:47:0066 [facility]CHE[facility] WNWUR7316-06-79 11:47:000.3[facility]annCHEM PANEL 2014-08-11 11:47:0013[facility]annCHEM FOXLE8385-82-68 11:47:0016[facility]annCHEM YGTQI2266-03-73 11:47:007.4[facility]annCHEM IABUW8462-37-42 11:47:0026[facility]annCHEM JFJLX4920-27-20 11:47:0023[facility]annCHEM VGJFC8097-41-46 11:47:0097[facility]annCHEM ZEFKX0747-25-86 11:47:0023 [facility]annCHE[facility] UOBWY3478-44-76 11:47:0010.1[facility]annCHEM PANEL 2014-08-11 11:47:004.0[facility]annCHEM JTWXE6896-92-43 11:47:000.8[facility] XqevylaXXBEPDJTAX7064-96-65 11:47:008.9[facility] ZxqimwuOWMWPSSASJ9945-13-47 11:47:36490Ugnouptl RhjbfjkXFQUITUERJ6126-53-11 11:47:0012.0[facility] RVVOVRVTPI0928-59-23 11:47:003.88[facility] EmzadduFXCAEWHDWK6768-30-32 11:47:00 6.7[facility] LuwbnyrUVEDBZEGVT1750-03-89 11:47:0013.6[facility]annHEMATOLOGY 2014-08-11 11:47:0034.0[facility] IpggmibTPBCMLHTEB5144-51-54 11:47:00 Test Item Value Reference Range Interpretation Comments MCH (test code = MCH) 30.9 pg 27.0-31.0 [facility] BhtekpfTGSLTHDEJB3919-55-27 11:47:0090.7[facility]annHEMATOLOGY 2014-08-11 11:47:0035.2[facility] FxqhwfcJDBTESHCWW9932-52-86 11:47:003.9[facility] PnmxoyyGOWRXFJWHV8723-83-52 11:47:002.1[facility] HnddqsoZSBWRYYOQH4414-13-90 11:47:007.2[facility] MxpwbqhHDJOREXUSP4815-53-48 11:47:002.9[facility] PAKJYVOGPD2475-08-29 11:47:000.6[facility] WmuervsKCJJEGCITE3751-12-26 11:47:000.5 [facility] UilddadXWRYRXDJOU5010-52-73 11:47:000.2[facility]annHEMATOLOGY 2014-08-11 11:47:0031.7[facility] YsdrbibACTXMCCMNC3507-47-30 11:47:0057.6[facility] DpawvehMOSYMGMMJL6307-32-35 11:47:001.00[facility] DrenhtcOEWEZFKZEX2160-75-93 11:47:00 Test Item Value Reference Range Interpretation Comments PTT (test code = PTT) 28.3 s 22.9-35.8 [facility] NsphjozTTBSKKZGYL5706-08-75 11:47:00 Test Item Value Reference Range Interpretation Comments PT (test code = PT) 13.2 s 12.0-14.7 [facility] UXYTNMR9473-95-20 11:47:00Negative (08/11/14 6:47 AM) [facility]annCHE[facility] SXFBI8088-39-92 11:47:003.4[facility]annCHEM PANEL 2014-08-11 11:47:008.5[facility]annCHEM UJTUX1740-34-44 11:47:0057[facility]annCHEM NZHAN1061-04-28 11:47:001.0[facility]annCHEM IGWGI8912-27-93 11:47:46758Fozaymkj HermannCHEM FJJRI4462-90-87 11:47:004.1[facility]annCHEM OHWHG0060-62-93 11:47:85992Rmfgvfyu HermannCHEM FJUSJ2528-03-81 11:47:0066 [facility]annCHE[facility] OYNTL6674-33-71 11:47:000.3[facility]annCHEM PANEL 2014-08-11 11:47:0013[facility]annCHEM UWCCU9903-52-26 11:47:0016[facility]annCHEM NVSOB7165-30-65 11:47:007.4[facility]annCHEM RLQGG1246-93-46 11:47:0026[facility]annCHEM SNYXL5888-08-74 11:47:0023[facility]annCHEM FIEQN7446-42-04 11:47:0097[facility]annCHEM EZRTM0521-93-40 11:47:0023 [facility]annCHE[facility] OGTQN6403-18-91 11:47:0010.1[facility]annCHEM PANEL 2014-08-11 11:47:004.0[facility]annCHEM AQIMK0808-03-48 11:47:000.8[facility] YemvbbuPCFZPSDWMP1725-17-90 11:47:008.9[facility] GotmcsiIEDBWEJOUV3139-49-65 11:47:90203Wafkeqij BfkntbrVEEWIYDLXW1908-88-87 11:47:0012.0[facility] SNMRLLQIUG2687-79-57 11:47:003.88[facility] EwyvuvlHJICTTDCYW6809-15-39 11:47:00 6.7[facility] BefonozURONHUGMYI3710-55-91 11:47:0013.6[facility]annHEMATOLOGY 2014-08-11 11:47:0034.0[facility] NdwgswcGWACYQZQZF1627-64-97 11:47:00 Test Item Value Reference Range Interpretation Comments MCH (test code = MCH) 30.9 pg 27.0-31.0 [facility] TfplisfWFAPLUYKSO1771-56-84 11:47:0090.7[facility]annHEMATOLOGY 2014-08-11 11:47:0035.2[facility] CqkmyzqXYRJGTUJTO2162-75-14 11:47:003.9[facility] JzlmfwfBPHWSDDBDR6055-41-88 11:47:002.1[facility] McjviedKDQBIKLEQQ3466-38-97 11:47:007.2[facility] HsnerzjGUOOLQGPNQ7977-00-36 11:47:002.9[facility] BUOBITBNST3816-76-71 11:47:000.6[facility] UxmzflzPHXXCGNOEJ9570-72-12 11:47:000.5 [facility] KcgegmzLHSWVOOMWN8258-85-25 11:47:000.2[facility]annHEMATOLOGY 2014-08-11 11:47:0031.7[facility] CjzcjpeLNUCJSQPBZ7664-96-18 11:47:0057.6[facility] TgoimfpGMVDIYZZJW1963-07-58 11:47:001.00[facility] BxlauyySXSHPHZCCC2134-70-32 11:47:00 Test Item Value Reference Range Interpretation Comments PTT (test code = PTT) 28.3 s 22.9-35.8 [facility] XeeawssRARNUDADGV2196-05-24 11:47:00 Test Item Value Reference Range Interpretation Comments PT (test code = PT) 13.2 s 12.0-14.7 [facility] Center[facility] INQPYSZ8605-35-88 11:28:00Product available 1(08/11/14 6:28 AM)[facility] [employer] GWJWVKK5151-68-42 11:28:00Product available 1(08/11/14 6:28 AM)[facility] Scienceshon[facility] centerAdvanced Marketing & Media Group EXJLVPW5980-34-68 11:28:00Product available 1(08/11/14 6:28 AM)[facility] SfaiwasTKXMIJVXFLZF0160-70-23 09:39:0011.8 [facility] EryehmhOYKANSFUXNJY0829-22-56 09:39:0057[facility] HermannELECTROLYTES 2014-05-20 09:39:14191Nmdfmpyv GwlzsioHGABTLUVMGXN2788-13-22 09:39:0024[facility] JauhwuoWOYTJCCQWHYP2632-14-98 09:39:003.8[facility] ZnnciyvYXUDGVWVGTMD8952-40-47 09:39:42799Niihiocp YzywtksEKJNIXRMRDAQ1047-13-00 09:39:007.4[facility] FBCMQUIFDNZA6703-88-08 09:39:001.0[facility] SlijwuwTTSPJMWAHAPS3009-09-46 09:39:0017[facility] CgjctepYCPBQQCYGUAV7066-40-06 09:39:0091[facility] ZTEBWXPDJX3806-58-07 09:39:009.1[facility] RepnucbMEMKWCKVJW6332-78-10 09:39:75362 [facility] XjhmctuHBNROTKLBV1642-29-95 09:39:0034.1[facility] HermannHEMATOLOGY 2014-05-20 09:39:0013.1[facility] OklajtwTQOENXMVCM4663-14-95 09:39:009.8[facility] NjdfiqoLYEOZPAJWJ2670-15-94 09:39:0011.3[facility] VjinpmsAIKOBTMGNY0841-19-29 09:39:003.48[facility] IwifknmTMQTXWAMAR1378-75-79 09:39:0033.0[facility] ATKGZUBVGZ6726-43-10 09:39:00 Test Item Value Reference Range Interpretation Comments MCH (test code = MCH) 32.3 pg 27.0-31.0 [facility] IxyggifBBCALRXESQ4789-69-77 09:39:0094.7[facility] HermannHEMATOLOGY 2014-05-20 09:39:000.1[facility] DjcjsvyMSYDGFPUFZ3122-16-83 09:39:0021.4[facility] AooidwtXNQGHXMAXY9311-16-43 09:39:0070.4[facility] BxaskdmJLVEZRQHLM8308-14-75 09:39:000.2[facility] DkwnvibPJYXWMLWIN3092-19-11 09:39:006.9[facility] DOSYNLHPSW9859-58-14 09:39:000.7[facility] OxbzlumPNWYMBASKA6100-05-52 09:39:002.1 [facility] NclrekpCXCXLMFULV0235-86-69 09:39:001.1[facility] HermannHEMATOLOGY 2014-05-20 09:39:006.9[facility] JrglufjVGLKYKCGIKGW0195-04-49 09:39:0011.8 [facility] SwouswzXHZOKGRRBENJ8041-16-46 09:39:0057[facility] HermannELECTROLYTES 2014-05-20 09:39:62239Ogukrmga GivdjuhMYPXLHPBQVFA3637-48-99 09:39:0024[facility] RdgkcwiRAMLJWLHORZD5849-99-38 09:39:003.8[facility] QmfxiirOAJSXOWRJISN1035-03-73 09:39:25740Ybszevwt DwvkfixFNUERJWUDVQK7358-83-11 09:39:007.4[facility] VDODDILXXQAZ8984-57-36 09:39:001.0[facility] UjqbrarSYHRJXOHVFYH2063-20-28 09:39:0017[facility] KdfgzhqKLJRVTBZLURD2543-12-64 09:39:0091[facility] SARNOQTJZZ1526-32-66 09:39:009.1[facility] IirwhnzCMRTRSWEYZ4128-32-26 09:39:13770 [facility] KdvjjefCCNSHTNYNN8023-02-49 09:39:0034.1[facility] HermannHEMATOLOGY 2014-05-20 09:39:0013.1[facility] OnhfgtsBYWPNQDZWP1654-94-72 09:39:009.8[facility] PrggxbzZEFGKAJRBH2126-91-86 09:39:0011.3[facility] BiqzepfGYMZEVAVKO6857-96-73 09:39:003.48[facility] JkydtvkFVMNXQXFAA7469-45-45 09:39:0033.0[facility] KQGZKWEEGB2671-70-74 09:39:00 Test Item Value Reference Range Interpretation Comments MCH (test code = MCH) 32.3 pg 27.0-31.0 [facility] WnfvympZOYOIJYUTB1455-50-45 09:39:0094.7[facility] HermannHEMATOLOGY 2014-05-20 09:39:000.1[facility] VihyuyjCVIXORDMEJ9474-59-89 09:39:0021.4[facility] PfxoiecGTHDSKXJZC3366-29-91 09:39:0070.4[facility] QhvhuhlBWVZZFZVRC6895-33-23 09:39:000.2[facility] SzcubzcQDHFLOFUJL2885-79-48 09:39:006.9[facility] PLOAGAGGJL7913-07-49 09:39:000.7[facility] CcuzpufVCFYWMLKZB9688-50-68 09:39:002.1 [facility] VczvwezLPCFAKHWMM1441-87-75 09:39:001.1[facility] HermannHEMATOLOGY 2014-05-20 09:39:006.9[facility] VussoziNUKZJMNCSMCI9186-54-96 09:39:0011.8 [facility] WddqimsFNGDBOXUBVOM9047-06-49 09:39:0057[facility] HermannELECTROLYTES 2014-05-20 09:39:58230Rnaijsic FsjxwolUMHBATBXXXNE8656-00-88 09:39:0024[facility] BugfufsFZMUXUEZCBRT3977-96-63 09:39:003.8[facility] XtxznwiFNNVIEBEIEPL7970-55-38 09:39:23643Qwzjrccf ElsltqxRENLZBXMAGRQ6513-47-95 09:39:007.4[facility] NVSWXLDNRGTO0339-86-03 09:39:001.0[facility] MfwzfjiKYYCUEDRATAN4306-56-92 09:39:0017[facility] YqvaphoMQUILBVQSNWX5837-37-75 09:39:0091[facility] CUHRUKLTTT9138-59-92 09:39:009.1[facility] GovgndfQBXOBDDHUN5195-81-20 09:39:01026 [facility] EfhqwcvLWGVFIIQJR5804-03-32 09:39:0034.1[facility] HermannHEMATOLOGY 2014-05-20 09:39:0013.1[facility] KiijpcxMGNGUJCSXR4607-87-24 09:39:009.8[facility] EszdofwEUFZFPJBVX6095-97-45 09:39:0011.3[facility] AdtcybpSHFUDTJQAP5992-21-87 09:39:003.48[facility] TxolwjpPELNFWZDXH3695-24-54 09:39:0033.0[facility] THQPVDPALG3004-23-47 09:39:00 Test Item Value Reference Range Interpretation Comments MCH (test code = MCH) 32.3 pg 27.0-31.0 [facility] ZfoodvqVJPYBQGNRQ6680-82-95 09:39:0094.7[facility] HermannHEMATOLOGY 2014-05-20 09:39:000.1[facility] UllyxrpWYMOUEPVDJ3793-11-60 09:39:0021.4[facility] XmwxvfmQVIKJIBUXT1059-45-30 09:39:0070.4[facility] MiluvmkTCOUZCJNOF3119-19-53 09:39:000.2[facility] OymzjplTYUSTXNLBF4306-80-98 09:39:006.9[facility] QZVBCDAUJY5462-12-84 09:39:000.7[facility] ZnuutscEZKQHMWUBI6407-01-85 09:39:002.1 [facility] WusufttKNETZNMHCB9217-19-64 09:39:001.1[facility] HermannHEMATOLOGY 2014-05-20 09:39:006.9[facility] HermannCHEM QBOJH8667-54-11 01:25:0065[facility] HermannCHEM BHVEY5432-36-76 01:25:000.9[facility] OzukduyYLHCWLRWVZ6836-71-51 01:25:00 Test Item Value Reference Range Interpretation Comments PTT (test code = PTT) 32.6 s 22.9-35.8 [facility] CikdqnaRUFRVEYVKB4046-70-65 01:25:27810Ghabqrjw HermannCHEM PANEL 2014-05-20 01:25:0065[facility] HermannCHEM RDDGL7515-04-12 01:25:000.9[facility] JtkbegrTHGBXFZPFA1407-14-79 01:25:00 Test Item Value Reference Range Interpretation Comments PTT (test code = PTT) 32.6 s 22.9-35.8 [facility] NbprzlrBGPINYKJEQ5932-85-42 01:25:15772Ucczylks HermannCHEM PANEL 2014-05-20 01:25:0065[facility] HermannCHEM YOZOV3404-02-80 01:25:000.9[facility] VpfsykaJZOYDWPVBM9924-59-58 01:25:00 Test Item Value Reference Range Interpretation Comments PTT (test code = PTT) 32.6 s 22.9-35.8 [facility] WlyqzpoZKIGVOBTMD7302-52-18 01:25:40513Szjrrtmp HermannBLOOD BANK CKNHCMM6868-94-43 12:41:00Negative (05/19/14 6:41 AM)[facility]annCHEM PANEL 2014-05-19 12:41:001.0[facility] HermannCHEM VFHQR8441-70-54 12:41:0010.8[facility] HermannCHEM USVAO4080-34-94 12:41:0016[facility] HermannCHEM ZPQEU5000-90-72 12:41:003.8[facility] HermannCHEM TRXVW3756-49-71 12:41:0057[facility] HermannCHEM PXBQN2648-69-10 12:41:003.8[facility] HermannCHEM KXKBB2438-42-52 12:41:93607 [facility]annCHEM KJGJL3962-49-26 12:41:001.0[facility] HermannCHEM PANEL 2014-05-19 12:41:45794Ttjpuwyy HermannCHEM ROXNX5407-36-18 12:41:008.7[facility] HermannCHEM SGZBL7523-63-80 12:41:000.5[facility] HermannCHEM DOOWD9668-77-38 12:41:0013[facility] HermannCHEM MIDTW5794-79-63 12:41:0066[facility] HermannCHEM OBVOH6663-59-76 12:41:007.5[facility]annCHEM LSNAV4277-15-80 12:41:003.7 [facility]annCHEM GMYBA1437-72-60 12:41:0025[facility] HermannCHEM PANEL 2014-05-19 12:41:0016[facility] HermannCHEM OAYGD2062-07-48 12:41:0028[facility] HermannCHEM OENTX1274-94-18 12:41:0097[facility] UtsasnvXJOESIPRQU3768-19-68 12:41:000.95[facility] XjbepwvKTBBCRNMIV8586-04-07 12:41:00 Test Item Value Reference Range Interpretation Comments PT (test code = PT) 12.7 s 12.0-14.7 [facility] DimayfbHTAAQQUDBX5474-28-55 12:41:00 Test Item Value Reference Range Interpretation Comments PTT (test code = PTT) 32.9 s 22.9-35.8 [facility] OusbqkrIGKFRUJBKY1905-95-24 12:41:007.1[facility] HermannHEMATOLOGY 2014-05-19 12:41:0058.7[facility] UidkqlmFJSFUKAUYX6999-95-00 12:41:000.5[facility] UpfhipzGXFZGQRVYI4430-50-66 12:41:0032.5[facility] KjomnsiMNDATNEWKZ2902-40-61 12:41:003.5[facility] BclrnirATWANNCDCP7018-89-74 12:41:001.2[facility] QQFBQAXQNC9393-81-53 12:41:000.1[facility] UklaakiHUMPTMHUZQ3368-48-48 12:41:001.9 [facility] XydgtbkXBJXOOYHPU8398-84-75 12:41:000.4[facility] HermannHEMATOLOGY 2014-05-19 12:41:004.04[facility] TpxpsnnBKUUOIQTFH4621-44-78 12:41:005.9[facility] ApxtxdiMOOGTYMPLI5674-70-43 12:41:0038.5[facility] GbjqrgzTDRAVZSANY9079-53-61 12:41:0013.1[facility] YucfxxqVGCQXRSCSJ4389-67-48 12:41:0095.5[facility] BAHYUMIDKH7218-97-64 12:41:0034.0[facility] MyigbsgTLIMKTZYLL7982-10-73 12:41:00 Test Item Value Reference Range Interpretation Comments MCH (test code = MCH) 32.5 pg 27.0-31.0 [facility] WrixrtpFEPKCDHICP1204-40-28 12:41:0013.3[facility] HermannHEMATOLOGY 2014-05-19 12:41:009.6[facility] UotajepZBMXPMPARY4713-74-79 12:41:27009Veujnvkr HermannBLOOD BANK BDPXLYQ5552-36-53 12:41:00Negative (05/19/14 6:41 AM)[facility]annCHEM IOUKN6775-16-25 12:41:001.0[facility] HermannCHEM BVAEG7724-37-09 12:41:0010.8[facility] HermannCHEM UILMO3508-14-14 12:41:0016[facility]annCHEM YVJJQ6129-73-37 12:41:003.8[facility] HermannCHEM NOGNJ7652-58-28 12:41:0057 [facility]annCHEM VAFHT0137-82-44 12:41:003.8[facility] HermannCHEM PANEL 2014-05-19 12:41:19978Prnnusrn HermannCHEM KAYVC2666-78-45 12:41:001.0[facility] HermannCHEM THBBX1529-56-78 12:41:45538Kmjsobem HermannCHEM ILGFE6958-98-93 12:41:008.7[facility] HermannCHEM MRLNX4253-36-90 12:41:000.5[facility] HermannCHEM KWPCV0974-41-11 12:41:0013[facility] HermannCHEM PGSDV0619-48-11 12:41:0066 [facility]annCHEM ZHJID7565-32-63 12:41:007.5[facility]annCHEM PANEL 2014-05-19 12:41:003.7[facility] HermannCHEM EJZUJ1665-72-10 12:41:0025[facility] HermannCHEM GALEI4062-66-57 12:41:0016[facility] HermannCHEM PAYMR1122-51-71 12:41:0028[facility] HermannCHEM PFGED0543-88-20 12:41:0097[facility] FHEJOCLDPD1761-06-09 12:41:000.95[facility] JqxhnxpZMMGVIMHJK6680-36-57 12:41:00 Test Item Value Reference Range Interpretation Comments PT (test code = PT) 12.7 s 12.0-14.7 [facility] DinxhviKVMBQKKWRS4925-83-22 12:41:00 Test Item Value Reference Range Interpretation Comments PTT (test code = PTT) 32.9 s 22.9-35.8 [facility] AiujaduPTSBHEOLAK1124-88-33 12:41:007.1[facility] HermannHEMATOLOGY 2014-05-19 12:41:0058.7[facility] ZfqyjcvRWUOGONKNM5983-16-06 12:41:000.5[facility] DccyopcFETBMRYJOZ0819-64-63 12:41:0032.5[facility] MtyorblYAUJMEWFTH4886-00-02 12:41:003.5[facility] WmmrqdkTVTJWSRMQV6402-29-99 12:41:001.2[facility] BBTUJFFAVL7547-59-57 12:41:000.1[facility] HaoqzxaTAEOOKOWQW4572-19-26 12:41:001.9 [facility] VbswpasDPGOLSXMBX5244-50-62 12:41:000.4[facility] HermannHEMATOLOGY 2014-05-19 12:41:004.04[facility] DtfmbqsSTVDERHTJL8973-45-69 12:41:005.9[facility] OxmmgauQLAEFLMSEV9129-01-53 12:41:0038.5[facility] WluvaelOILUXOLSHV6809-48-18 12:41:0013.1[facility] ShmyfohWHVGJZOFSB5690-82-65 12:41:0095.5[facility] KBTUUOJKHV3393-33-25 12:41:0034.0[facility] UnhmjgxPTUGKYJOUR2577-92-69 12:41:00 Test Item Value Reference Range Interpretation Comments MCH (test code = MCH) 32.5 pg 27.0-31.0 [facility] LzuusmaKMLCMQSRSH1849-33-08 12:41:0013.3[facility] HermannHEMATOLOGY 2014-05-19 12:41:009.6[facility] UbrcfnwEVZTHZIHPO1694-70-96 12:41:70495Mkgajoji HermannBLOOD BANK OZJFBJZ7334-89-35 12:41:00Negative (05/19/14 6:41 AM)[facility] HermannCHEM FVLQD7409-89-50 12:41:001.0[facility] HermannCHEM ZWJRH5662-49-72 12:41:0010.8[facility] HermannCHEM FKGKB4973-75-50 12:41:0016[facility] HermannCHEM SGQKL4710-79-38 12:41:003.8[facility] HermannCHEM KIQON9413-82-78 12:41:0057 [facility]annCHEM BFCUY8913-40-40 12:41:003.8[facility] HermannCHEM PANEL 2014-05-19 12:41:10180Qimcbvfa HermannCHEM ZUTCT6285-55-63 12:41:001.0[facility] HermannCHEM VEHZX4123-57-13 12:41:17786Ugtqfpsc HermannCHEM TARIQ1252-02-44 12:41:008.7[facility] HermannCHEM XNHVY6311-74-18 12:41:000.5[facility] HermannCHEM PBBJD3463-68-14 12:41:0013[facility] HermannCHEM HGHUP2667-05-20 12:41:0066 [facility]annCHEM ASNPW0077-89-17 12:41:007.5[facility] HermannCHEM PANEL 2014-05-19 12:41:003.7[facility] HermannCHEM CXUJZ7812-70-12 12:41:0025[facility] HermannCHEM RPHQH3737-21-60 12:41:0016[facility] HermannCHEM UHZYL9089-27-58 12:41:0028[facility] HermannCHEM CBEWG7258-52-15 12:41:0097[facility] OTOBPIJWVA8996-41-23 12:41:000.95[facility] UmtrqcjOLPQUYPAMP4477-91-13 12:41:00 Test Item Value Reference Range Interpretation Comments PT (test code = PT) 12.7 s 12.0-14.7 [facility] GozznisDNNSDJIHNL3492-02-12 12:41:00 Test Item Value Reference Range Interpretation Comments PTT (test code = PTT) 32.9 s 22.9-35.8 [facility] NhuxvegRTDAMLMDCQ9164-74-41 12:41:007.1[facility] HermannHEMATOLOGY 2014-05-19 12:41:0058.7[facility] SlfdbemAKWZXOGHIH2525-76-86 12:41:000.5[facility] VibqftfMPRCCVQTKA6892-48-09 12:41:0032.5[facility] PglvwvdQSHFUXSQXA1978-51-64 12:41:003.5[facility] RmuvmhfHFNYKLECSB7501-65-10 12:41:001.2[facility] GUYQHGJUFJ6455-54-86 12:41:000.1[facility] IvtuxsdYRRJWHCFNP4078-84-36 12:41:001.9 [facility] JlgnkkqQRCBRLWRMV3819-51-00 12:41:000.4[facility] HermannHEMATOLOGY 2014-05-19 12:41:004.04[facility] JiirociFKYAFAWIEN1551-21-96 12:41:005.9[facility] LvtyxijKSKXLUOTLT7474-20-00 12:41:0038.5[facility] DieyzevMNCWXUHOBQ2755-33-19 12:41:0013.1[facility] OmgdfhcNQZJBLSSYJ0228-86-84 12:41:0095.5[facility] BNSCSDAEZD1293-49-37 12:41:0034.0[facility] ExxcfywHLDVGGOCZK6966-31-41 12:41:00 Test Item Value Reference Range Interpretation Comments MCH (test code = MCH) 32.5 pg 27.0-31.0 [facility] IggljizRWVLUOUHKA9995-30-79 12:41:0013.3[facility] HermannHEMATOLOGY 2014-05-19 12:41:009.6[facility] PiygelkZUGTNVHEAL5594-82-11 12:41:82682Pqtjlxcc HermannBLOOD BANK GSJEDBJ0630-62-54 12:26:00Product available 1(05/19/14 6:26 AM) [facility] FSKIZTR1915-96-82 12:26:00Product available 1(05/19/14 6:26 AM)[facility] ZAASPTU2169-53-25 12:26:00Product available 1(05/19/14 6:26 AM)[facility] IVLHL2559-26-82 19:46:193[facility] ZNYBR8608-12-68 19:46:192[facility] STOOL 2013-07-09 19:46:19Trace *ABN*(07/09/2013 13:46:19 [place])[facility] BBBBD9208-61-41 19:46:199[facility] STOOL 2013-07-09 19:46:19Negative (07/09/2013 13:46:19 [place])[facility] EUJDO2448-45-94 19:46:19Negative (07/09/2013 13:46:19 [place])[facility] LRBGN9011-37-29 19:46:19Negative *NA*(07/09/2013 13:46:19 [place])[facility] STOOL 2013-07-09 19:46:196.0[facility] BYXCO0583-18-46 19:46:19Marked *ABN*(07/09/2013 13:46:19 [place])[facility] ST[facility]OL 2013-07-09 19:46:191.010[facility] OXBXS0949-43-72 19:46:193 [facility] IKRDW3860-44-73 19:46:192[facility] ZBKNN4064-69-24 19:46:19Trace *ABN*(07/09/2013 13:46:19 [place])[facility] NXKVD8654-15-61 19:46:199[facility] STOOL 2013-07-09 19:46:19Negative (07/09/2013 13:46:19 [place])[facility] YWUCP0626-18-38 19:46:19Negative (07/09/2013 13:46:19 [place])[facility] TCBBH9596-71-27 19:46:19Negative *NA*(07/09/2013 13:46:19 [place])[facility] ST[facility]OL 2013-07-09 19:46:196.0[facility] OCRKU6708-48-80 19:46:19Marked *ABN*(07/09/2013 13:46:19 [place])[facility] STOOL 2013-07-09 19:46:191.010[facility] HRLAX5344-19-33 19:46:193 [facility] TVZFW8822-94-99 19:46:192[facility] DQJDB6702-29-85 19:46:19Trace *ABN*(07/09/2013 13:46:19 [place])[facility] HVMAL0157-70-43 19:46:199[facility] STOOL 2013-07-09 19:46:19Negative (07/09/2013 13:46:19 [place])[facility] QGRWT2604-92-68 19:46:19Negative (07/09/2013 13:46:19 [facility] YOMDE4198-49-04 19:46:19Negative *NA*(07/09/2013 13:46:19 [place])[facility] STOOL 2013-07-09 19:46:196.0[facility] PQIQV8735-50-84 19:46:19Marked *ABN*(07/09/2013 13:46:19 [place])[facility] STOOL 2013-07-09 19:46:191.010[facility] HermannCARDIAC WTMRPSV8851-26-07 17:15:00 <0.02[facility] HermannCARDIAC AKLMIBW0804-70-56 17:15:0034[facility] CARDIAC FPRKUPV9109-70-11 17:15:00<0.5[facility] HermannCARDIAC ENZYMES 2013-07-09 17:15:0033[facility]annCARDIAC BJMMSMQ2508-44-96 17:15:00<1.5 [facility]annCHEM ZXZDD6936-47-36 17:15:004.2[facility] HermannCHEM PANEL 2013-07-09 17:15:000.9[facility] HermannCHEM CEUCV4868-19-58 17:15:0014.7[facility] HermannCHEM RNKZN8357-23-59 17:15:0021[facility] HermannCHEM VESZN0061-95-12 17:15:0046[facility] HermannCHEM VSAVF1097-15-12 17:15:001.2[facility] HermannCHEM MZUGS8959-24-44 17:15:0025[facility] HermannCHEM YTKZD2584-72-44 17:15:07441 [facility]annCHEM MYOKL0218-52-78 17:15:0026[facility] HermannCHEM PANEL 2013-07-09 17:15:003.9[facility] HermannCHEM WVSOG4898-32-24 17:15:000.5[facility] HermannCHEM LSMWK0174-45-96 17:15:0078[facility] HermannCHEM YQFWJ5272-34-01 17:15:003.7[facility] HermannCHEM IOCPS7144-59-34 17:15:67536Aldtxdde HermannCHEM AGFBJ6217-72-47 17:15:0023[facility] HermannCHEM HVOHK6902-24-80 17:15:009.1 [facility]annCHEM SSWJU6162-93-02 17:15:008.1[facility] HermannCHEM PANEL 2013-07-09 17:15:008[facility] HermannCHEM SBVED0314-43-00 17:15:78520Etiozhje AwabhbkVYYDFPMBLK6755-81-73 17:15:00 Test Item Value Reference Range Interpretation Comments aPTT (test code = aPTT) 25.5 s 22.9-35.8 [facility] MxvtfjqISDJIJGHNY2922-02-50 17:15:00 Test Item Value Reference Range Interpretation Comments PROTIME (test code = PROTIME) 12.7 s 12.0-14.7 [facility] WwrygeyMLINEJZDZM6737-53-08 17:15:000.96[facility]annHEMATOLOGY 2013-07-09 17:15:74899Fwlimvrq GwtrcnyXNIFGVOUVX1669-45-46 17:15:009.1[facility] LpghacnAVOYHJNPNZ3391-62-11 17:15:0012.4[facility] LwkjpikNEQCZBTACC5430-37-90 17:15:004.50[facility] UdiqikhPARTNJCPKS2463-70-66 17:15:0013.3[facility] AFJUALOLWJ7241-37-09 17:15:0034.5[facility] HhlpqfsTYJNSNCKOE7723-53-86 17:15:00 Test Item Value Reference Range Interpretation Comments MCH (test code = MCH) 32.0 pg 27.0-31.0 [facility] KvkvgshDHKXOUMSCH6616-73-96 17:15:0092.7[facility] HermannHEMATOLOGY 2013-07-09 17:15:0014.4[facility] BqsfdutJLEITGCKDE5589-30-84 17:15:0041.7[facility] ArseatrAMNGAEBDTI9934-11-22 17:15:000.0[facility] KewpfxjKBSWOJXFHJ8714-46-04 17:15:000.0[facility] ZxrnpctQIIARHIAPB5804-30-20 17:15:000.6[facility] [place] EJADSPZYWJ3689-40-61 17:15:001.3[facility] MjahaonOYJWRFZZGC9305-97-53 17:15:00 11.4[facility] WnpkuakFOTNVBOSYK9066-66-52 17:15:000.1[facility] HermannHEMATOLOGY 2013-07-09 17:15:004.5[facility] VvmvuliXSGAQWEDPR3192-86-96 17:15:000.1[facility] KxhmpuuLKMPMDGTZA7406-84-25 17:15:0085.7[facility] YtyghamHLZHITVFVE1775-44-06 17:15:009.6[facility] HermannCARDIAC TJURDTY8923-69-20 17:15:00<0.02[facility] HermannCARDIAC ZLGPNJC6826-50-12 17:15:0034[facility] HermannCARDIAC ENZYMES 2013-07-09 17:15:00<0.5[facility] HermannCARDIAC IHDCTRP5935-43-04 17:15:0033 [facility]annCARDIAC LIBESVZ7250-20-97 17:15:00<1.5[facility] HermannCHEM NURKF3468-07-01 17:15:004.2[facility] HermannCHEM NZIDI1676-32-45 17:15:000.9 [facility]annCHEM GMPLM4772-57-39 17:15:0014.7[facility] HermannCHEM PANEL 2013-07-09 17:15:0021[facility] HermannCHEM RRYVE0826-83-43 17:15:0046[facility] HermannCHEM LOURF7977-29-27 17:15:001.2[facility] HermannCHEM PYHSR7651-99-60 17:15:0025[facility] HermannCHEM DOWUV1572-22-78 17:15:07472Vppdaqec HermannCHEM NVWZC5061-04-37 17:15:0026[facility] HermannCHEM DSXDT9897-03-94 17:15:003.9 [facility]annCHEM DVWIS9310-59-86 17:15:000.5[facility] HermannCHEM PANEL 2013-07-09 17:15:0078[facility] HermannCHEM XMJOZ5858-86-57 17:15:003.7[facility] HermannCHEM VTYEM8975-59-98 17:15:60740Omzhmhwo HermannCHEM LZCDZ7402-50-38 17:15:0023[facility] HermannCHEM GJSQJ8883-65-52 17:15:009.[facility] HermannCHEM QSVSD1718-01-77 17:15:008.[facility] HermannCHEM YHAAY0271-34-73 17:15:008 [facility]annCHEM HPGKO1781-28-95 17:15:74988Sqbeqgkd HermannHEMATOLOGY 2013-07-09 17:15:00 Test Item Value Reference Range Interpretation Comments aPTT (test code = aPTT) 25.5 s 22.9-35.8 [facility] AuamqkpXFWKIHSBRC1335-27-29 17:15:00 Test Item Value Reference Range Interpretation Comments PROTIME (test code = PROTIME) 12.7 s 12.0-14.7 [facility]ivDPNKIUETWB8522-36-50 17:15:000.96[facility] HermannHEMATOLOGY 2013-07-09 17:15:63969Bbrifslc AeicebhMMWNYUGEVS9739-42-98 17:15:009.1[facility] WxeasucBBDOJHISTO7929-27-81 17:15:0012.4[facility] JaieydgEQRVPXVKDR9407-78-57 17:15:004.50[facility] CoylspvZXWIDDVLEO2656-47-42 17:15:0013.3[facility] [place] JJSKRXOGXC9236-33-61 17:15:0034.5[facility] OzepegkCYNVXOMOQN6767-14-93 17:15:00 Test Item Value Reference Range Interpretation Comments MCH (test code = MCH) 32.0 pg 27.0-31.0 [facility] NdlnvkmLHSJXWWLAI1445-16-88 17:15:0092.7[facility] HermannHEMATOLOGY 2013-07-09 17:15:0014.4[facility] EmlsyxzFJUSZNRGLQ2741-01-26 17:15:0041.7[facility] YwatotcRCIHTJPMBB0265-53-34 17:15:000.0[facility] CmojjgyVZUOUZUNMV3782-33-37 17:15:000.0[facility] MyepyndZTAQZAFPXD7422-03-68 17:15:000.6[facility] EFJDNUMSVP9769-29-33 17:15:001.3[facility] CnpsxoaTDJOTXRMSL8200-00-16 17:15:00 11.4[facility] XwscylfOJDFYJRVUS1199-98-16 17:15:000.1[facility] HermannHEMATOLOGY 2013-07-09 17:15:004.5[facility] ZpgvetbFTWHLLNDCT7662-15-56 17:15:000.1[facility] PtqgfprRRGSTSOHXX8986-02-02 17:15:0085.7[facility] IvmzlkpBWKUUGXJLQ2596-42-38 17:15:009.6[facility] HermannCARDIAC AEMDLSV1252-55-65 17:15:00<0.02[facility] HermannCARDIAC YSXGXNC7969-21-00 17:15:0034[facility] HermannCARDIAC ENZYMES 2013-07-09 17:15:00<0.5[facility] HermannCARDIAC WQDFZAT2205-01-89 17:15:0033 [facility] HermannCARDIAC RDRIAAC9657-04-43 17:15:00<1.5[facility] HermannCHEM YIQNH2594-62-16 17:15:004.2[facility] HermannCHEM EKDNW6740-68-26 17:15:000.9 [facility]annCHEM SZTIX5728-19-49 17:15:0014.7[facility] HermannCHEM PANEL 2013-07-09 17:15:0021[facility] HermannCHEM HNQZE7043-03-63 17:15:0046[facility] HermannCHEM OZGBU7671-65-90 17:15:001.2[facility] HermannCHEM VCBSO7572-63-98 17:15:0025[facility] HermannCHEM JHMRV9667-69-71 17:15:85647Sacgfvxv HermannCHEM DSXCH6513-82-07 17:15:0026[facility] HermannCHEM KATIG1623-32-08 17:15:003.9 [facility] HermannCHEM DVBFC2551-49-64 17:15:000.5[facility] HermannCHEM PANEL 2013-07-09 17:15:0078[facility] HermannCHEM DDPOG5863-99-08 17:15:003.7[facility] HermannCHEM RFFXY7897-18-23 17:15:66021Hwqsrwck HermannCHEM VMGPE6510-36-66 17:15:0023[facility] HermannCHEM NOLXK0789-41-68 17:15:009.[facility] HermannCHEM MHWGC1157-48-62 17:15:008.1[facility] HermannCHEM UUPPB2646-12-10 17:15:008 [facility] HermannCHEM YVKTY3018-57-33 17:15:39327Ewokfaio HermannHEMATOLOGY 2013-07-09 17:15:00 Test Item Value Reference Range Interpretation Comments aPTT (test code = aPTT) 25.5 s 22.9-35.8 [facility] GjpfubqMKXKGMNHCR9242-13-44 17:15:00 Test Item Value Reference Range Interpretation Comments PROTIME (test code = PROTIME) 12.7 s 12.0-14.7 [facility] CenterMssmgqaYKLYRECMDV0285-00-32 17:15:000.96[facility] HermannHEMATOLOGY 2013-07-09 17:15:77528Pgfiefsp CftwyzsTQYOYJPWFZ6253-90-06 17:15:009.1[facility] VyrqsfqZIUPHCZXPB5739-59-54 17:15:0012.4[facility] RazuulrSXYQKGFVVE0764-04-64 17:15:004.50[facility] FjkumapKAOBKUTRMR5479-42-06 17:15:0013.3[facility] HWHEHLHBEP9096-76-42 17:15:0034.5[facility] YqyphlgKNQBAOBKLG9570-31-65 17:15:00 Test Item Value Reference Range Interpretation Comments MCH (test code = MCH) 32.0 pg 27.0-31.0 [facility] UmhenpcEUMCGGLFXZ3766-08-70 17:15:0092.7[facility] HermannHEMATOLOGY 2013-07-09 17:15:0014.4[facility] IshekggHOMVAEHKFU9942-83-41 17:15:0041.7[facility] VfobxpsGSMGVDZFVC7507-69-57 17:15:000.0[facility] OzfhmzuZAPGRDCGGT5499-00-16 17:15:000.0[facility] UdvtfhyCMCNFILKTB9418-16-70 17:15:000.6[facility] ERNLGFDTXD4477-52-08 17:15:001.3[facility] YmtkfshXPKERBBTNK5605-25-73 17:15:00 11.4[facility] UjfyzwuDWFXFSSQWR0800-97-48 17:15:000.1[facility] HermannHEMATOLOGY 2013-07-09 17:15:004.5[facility] JrvdsqlPWZCCAZVMZ1624-91-58 17:15:000.1[facility] PzbbfkvYMPEAGPITK1491-39-72 17:15:0085.7[facility] XskpdhiASWVJXYENG7280-22-90 17:15:009.6[facility]
[2021-07-20] MEDS: Levofloxacin 750mg IV 750 MG/150 ML BAG IV SCH (14:57)
[2021-07-20] MEDS: NA CHLORIDE 0.9% 1,000 ML IV SCH ×2 (14:58→21:36)
[2021-07-20] MEDS: METRONIDAZOLE 500mg IVPB 500 MG/100 ML BAG IV SCH (17:01)
[2021-07-20 17:06] VITALS: BMI 4088.6
--- NOTE | 2021-07-20 17:06 | OP ---
Date of Procedure: 07/20/2021 Surgeon: Sylvain Ahumada MD Preoperative Diagnoses: Abdominal pain, enterocutaneous fistula, constipation on and off, abdominal wall cellulitis. Postoperative Diagnoses: Abdominal pain, enterocutaneous fistula, constipation on and off, abdominal wall cellulitis. Procedures: Enterocutaneous fistula and colocutaneous fistula, extensive intraabdominal adhesions, c olostomy creation, laparoscopic and open extensive intraabdominal lysis of adhesions, incisional vent ral hernia repair, diagnostic laparoscopy. Estimated Blood Loss: Less than 100 cc. Specimen: Small bowel. Findings: The patient has extensive intraabdominal adhesions. The patient has enterocutaneous and c olocutaneous fistula. The enterocutaneous fistula was fixed with a small bowel resection. The coloc utaneous fistula unfortunately cannot be resected at this moment, so we created a loop ileostomy on t hat one and we did extensive intraabdominal adhesions. The patient also has over the incision a smal l hernia, which was also repaired. Anesthesia: General plus local. Indication: This is the case of a female, who comes to us with chronic abdominal pain. Also, a smal l area of incision on and off gave her drainage and she has been dealing with this since last year wi th abdominal wall cellulitis and then after that, she says there is small opening on the incision and then after that it started putting air out and she feels better, a few days later just went again an d released and then after that, re-opens once again, in the last 2 weeks has not improved. She has a fistulogram done, but this failed to show any fistula in that region. She had extensive workup. Rashi avnn has a long history of abdominal surgeries. She says that not too long ago she was at [facility] [place], [place], did a ventral hernia repair and the surgery took significant amount of time with multiple compli cations, intraabdominal adhesions to the point that she says she has spent 3 months in the hospital, admitted, and multiple complications that she thought she was not going to make it, so we are trying to treat this conservatively. She understands. I suspect this patient may have a fistula even thoug h it is not showing over that area. It is obvious we did not see air coming out of this area, althou gh I do not see any formed stools coming from the area. It looked maybe just small bowel in that reg ion. She understands she has the options of admissions, TPN and fistula medication treatment, but __ now she does not want to continue conservative treatment. She does not want other medicatio n. She wants us to go there and fix the fistula. I explained to her the options of it, may involve diagnostic lap, may involve bowel resection, may involve finding of some other hernias since she has them in the past, may even require colostomy. She is tired of it. She does not want to continue con servative treatment or any somatostatin or any other medications in that case. Then, we booked her f or surgery. The benefits, alternatives, and risks of diagnostic lap, lysis of adhesions, laparotomy, possible bowel resection, possible hernia repair, possible fistula repair fully explained, which inc lude, but not limited to infection, bleeding, damage to adjacent structures, anesthesia complication, recurrence, bile leak, abscess, NC, and even . She also understands this may not relieve any s ymptoms. She might need more than one surgical intervention. She understood, signed a consent. Procedure In Detail: The patient was brought to the operating room, placed in supine position. Anes thesia was done without complication. Abdominal area was prepped and draped in the usual sterile fas hion. We proceeded to find a spot on the upper abdomen away from the area of this fistula, which is an opening. There is some redness around the area, today it was not. A few days ago, she thinks it is coming back and when it comes back, it all red, so that is why she will need to fix it today, so w e made an incision away from the area and we were able to put a scope through that region after putti ng a Michelle trocar under direct visualization and we noticed a lot of adhesions there. We can barely see in front of us. So, we understand we are going to have to remove those adhesions to identify th e bowel that is involved in this fistula and so with it, we managed to find 2 places on the abdomen t hat we can place 5 mm trocar. In a slow and accurate fashion, we proceeded to do lysis of adhesions with the help of LigaSure. We spent more than an hour just doing that. We were aware to the point t hat we have all the adhesions now, but we noticed that in the area of the fistula, there is matted am ount of bowel all together that cannot be . So, after we cleaned all that area, we just go there. We decided then to make an incision in the abdomen. She has previous incision already. She has already a hernia in the upper abdomen too. So, we used that for the trocar site and then after t hat extending incision and around the area of the fistula, we took the fascia around the fistula with it want to disconnect even the skin comes with the specimen. Once we opened and did the laparotomy, we were able to extract the bowel out with the skin still attached to it. When we were t rying to separate that, we noticed we have a little bit of a problem here because not only the small bowel is open but also the large bowel transverse is part of this fistula, though 2 of them were milena ed together and there is an opening on the bowel transverse and on the small bowel, so we have to louie e the decision in this case the small bowel is either to repair since we were able to disconnect and then do a proximal and distal control, transect with GIAs. Removed the mesentery with LigaSure, then put the antimesenteric borders together and then basically we made enterotomies with PAVEL, created an astomosis and then closed the enterotomy with TA60. Excellent flow. The bowel looks intact and that problem resolved. Irrigation was done. In the area of adhesions, we have to do some other ones in the upper abdomen to be able to visualize the second part, which is transverse colon. I came outside the room and discussed that with the patient's there are stools coming from that area even the area of the fistula was putting some purulent discharge, so it is not a clean case. It is a contaminated case, not only at the area of the skin and subcutaneous, but also at the level of the bowel since we have stools coming out from transverse colon. When we palpated the descending col on, it was full of stools too because the patient has history of constipation, so closing this primar meghann may represent a leakage 2 to 3 days from now since the ascending colon might not have properly dr arroyo, so we have a decision that we do a right hemicolectomy to include that transverse colon there, but if there are so many adhesions on the flank from previous surgeries that will create a long time of surgery and this patient has history of cardiac disease with obviously some limitations in that a spect. We can also get the transverse colon, but since the area is not clean and the descending colo n is full of stools, I believe the anastomosis will leak, so we have to get that decision of how we d o with this opening in the bowel and the safest way to go at this moment is just bring it up as a loo p colostomy. There are some narrow points in that region. I do not palpate any masses in that area, but I believe we should bring that ostomy up, study the left colon, the right colon and then after t hat, I have plan to reverse this loop ileostomy in the future when we know if it is safer. The patie nt has already significant amount of time in the OR and proceeding with the hemicolectomy and transve rse colostomy not only the anastomosis may fail and put in a difficult situation even life-threatenin g, but also will add a lot of time to this case and that is not favorable for her medical issues. So , we created an opening in the upper abdomen. Into that opening, we brought the loop of bowel with t he fistula on, put a jae underneath. Secure that ostomy to the fascia. Then, after that, profusely irrigated the abdomen. The small bowel anastomosis still intact and we proceeded to close the abdome n after obtaining hemostasis with a #1 nylon in a running fashion. The wound was left open to close by secondary intention. Then, after that, we proceeded to mature this loop colostomy securing that t o the subcutaneous tissue and with chromic combination. The jae was left underneath and the colostom y bag was placed in that area. The patient tolerated each procedure well. In this case, we have dec ompression of the distal bowel, which at this moment is completely packed with stool, so it is acting as a partial obstruction and also we have decompression of the proximal bowel. The future will be w vy she has recovered from this is study the left colon, the right colon and then plans to see the pr os and cons of reversal of this ostomy that may not be permanent depending on her medical status. Jaspal cabrera this was discussed with the patient's in the middle of the case. We went back and then com pleted the case and he did agree with the plan. The patient tolerated the procedure well. Sponge co unt and instrument counts correct. The patient was sent to recovery in stable condition. The small hernia that was found and incision was closed with the primary repair. SEAN/DARNELL Voice ID: [id number] Report ID: [id number]
[2021-07-20] MEDS: ONDANSETRON 4 MG/2 ML VIAL IV PRN (18:14)
--- NOTE | 2021-07-20 18:50 | P.CNS ---
Date of Consult: 07/20/21 Reason for Consult: Assistance with medical management Requesting Physician: Sylvain Ahumada Chief Complaint: Status post bowel resection, fistulectomy and colostomy placement History of Present Illness: Patient has a history of hypertension, coronary artery disease with pacemaker placement, as well as colon cancer who presents to the hospital for repair of a fistula as well as small bowel resection and colostomy placement. Patient had surgery today. We are consulted for medical management. Patient is postoperative at this time and is lethargic. We will reassess her when she is more awake. Continue with IV medications at this time and will switch over to orals when she is able to tolerate. Allergies codeine Allergy (Verified 07/19/21 13:48) Itching hydrocodone [From Vicodin] Allergy (Verified 07/19/21 13:48) Nausea/Vomiting Iodinated Contrast- Oral a Allergy (Uncoded 03/02/21 09:46) Anaphylaxis Home Medications: Amlodipine Besylate/Valsartan [Amlodipine-Valsartan 5-160 mg] 1 tab PO DAILY 08/06/19 Levothyroxine [Synthroid*] 25 mg PO DAILY 08/06/19 Aspirin [Wanda Chewable Aspirin] 81 mg PO DAILY 07/30/20 Primidone 50 mg PO BID 03/01/21 Pantoprazole [Protonix Tab*] 40 mg PO DAILY #30 tab 03/08/21 Meloxicam 1 tab PO PRN 07/19/21 - Past Medical/Surgical History Diabetic: No -: Hypertension -: Pacemaker (2009) -: Cardiac Dysrhythmia -: Cataract -: Hypothyroidism -: GERD -: Shoulder Tendinitis(gets shots) -: Colon cancer -: Explore Lap; organs -: Hernia Repair -: Esophageal varices - Family History Father Medical History: Cancer Notes: - Lung Cancer Mother Medical History: Heart disease Notes: - Stroke - Social History Alcohol use: No CD- Drugs: No Caffeine use: Yes Place of Residence: Home Review of Systems is unable to be obtained Physical Examination Temp Pulse Resp BP Pulse Ox 97.2 F 80 21 H 142/64 H 100 07/20/21 16:00 07/20/21 17:00 07/20/21 17:00 07/20/21 17:00 07/20/21 17:00 General: Alert, In no apparent distress HEENT: Atraumatic, PERRLA, Mucous membr. moist/pink, EOMI, Sclerae nonicteric Neck: Supple, 2+ carotid pulse no bruit, No LAD, Without JVD or thyroid abnormality Respiratory: Clear to auscultation bilaterally, Normal air movement Cardiovascular: Regular rate/rhythm, Normal S1 S2 Gastrointestinal: Normal bowel sounds, No tenderness Musculoskeletal: No tenderness Integumentary: No rashes Neurological: Normal gait, Normal speech, Normal tone, Normal affect Lymphatics: No axilla or inguinal lymphadenopathy - Problems (1) Status post small bowel resection Current Visit: Yes Status: Acute (2) Status post colostomy Current Visit: Yes Status: Acute (3) History of colon cancer Current Visit: No Status: Acute (4) History of permanent cardiac pacemaker placement Current Visit: No Status: Chronic (5) Hypertension Current Visit: No Status: Chronic Conclusions/ Impression: Antibiotic therapy. Continue with wound care per surgery. Start some physical therapy. Critical Care: No Time Spent Managing Pts care (In Minutes): 40
[2021-07-21] MEDS: ONDANSETRON 4 MG/2 ML VIAL IV PRN ×2 (00:16→11:55)
[2021-07-21] MEDS: HYDROMORPHONE HCL 1 MG/ML INJ IV PRN ×3 (00:18→19:24)
[2021-07-21 05:11] LABS: Absolute Lymphocytes (CBC) 0.7 K/uL (0.7-4.9); Hematocrit 32.1 % (36.0-45.0); Lymphocytes % 4.7 % (15.3-44.8); MPV 8.5 fL (7.6-11.3); RBC Red Blood Cell Count 3.54 M/uL (3.86-4.86)
[2021-07-21 05:21] LABS: Magnesium 1.6 mg/dL (1.8-2.4); Phosphorus 2.4 mg/dL (2.5-4.9); Potassium 4.7 mmol/L (3.5-5.1)
[2021-07-21 05:38] LABS: Blood Morphology Comment NOT SEEN (NOT SEEN); Platelet Estimate ADEQ
[2021-07-21] MEDS: PANTOPRAZOLE 40 MG INJ IVP SCH (08:31)
[2021-07-21] MEDS ORDERED: Magnesium Sulfate 2gm IVPB 2 G/50 ML BAG IV ONE (10:05)
[2021-07-21] MEDS: NA CHLORIDE 0.9% 1,000 ML IV SCH ×2 (10:06→18:00)
[2021-07-21] MEDS ORDERED: SODIUM PHOSPHATE 30 MM in NA CHLORIDE 0.9% 500 ML IV ONE (11:00)
[2021-07-21] MEDS: METRONIDAZOLE 500mg IVPB 500 MG/100 ML BAG IV SCH ×3 (12:00→20:36)
[2021-07-21] MEDS: Levofloxacin 750mg IV 750 MG/150 ML BAG IV SCH (13:00)
--- NOTE | 2021-07-21 15:48 | PN ---
Date of Progress Note: 07/21/2021 Diagnoses: Enterocutaneous fistula, colocutaneous fistula, status post laparotomy, status post fistu la takedown, creation of colostomy, intraabdominal adhesions, ventral hernia repair, extensive intraa bdominal adhesions, small bowel resection with anastomosis and loop colostomy. Subjective: The patient is doing well. No complaint. She has good humor. She is talkative. No sh ortness of breath. No chest pain. Physical Examination: General: The patient is awake, alert, in no distress. HEENT: Pupils anicteric. Neck: Supple. Chest: Clear. Abdomen: Surgically intact. ISELA drain minimal. Ostomy nonfunctional yet, but still viable. Extremities: Good capillary refill. No calf tenderness. Laboratory Data: Blood work shows WBC count of 15, hemoglobin of 10. Potassium is 4.7, creatinine i s 1.09. Assessment: A 75-year-old patient with bowel resection, ostomies, small bowel resection, takedown of enterocutaneous and colocutaneous fistula, laparotomy, extensive lysis of adhesions. The patient is doing well. So if Dr. Canales agrees with that, we can move her to a regular floor. We expect her to be here long-term, probably at least a week because she has slow recovery and she has multiple extens sherin surgical history in the past and as per her story, the recovery is very slow. We have no tejada an d we have no intention to tejada this. We are going to follow her at pace. She is doing great. She i s very happy with the treatment today. Continue with antibiotics, incentive spirometry, rehab, deep vein th rombosis prophylaxis, SCDs. HM/MODL Voice ID: [id number] Report ID: [id number]
[2021-07-21] MEDS ORDERED: LIDOCAINE 1% MPF 5 ML VIAL ONE (18:25)
[2021-07-21] MEDS ORDERED: PROMETHAZINE INJ 25 MG/ML AMP IM ONE (19:00)
[2021-07-22] MEDS: HYDROMORPHONE HCL 1 MG/ML INJ IV PRN ×2 (02:36→20:39)
[2021-07-22] MEDS: METRONIDAZOLE 500mg IVPB 500 MG/100 ML BAG IV SCH (04:00)
[2021-07-22] MEDS: NA CHLORIDE 0.9% 1,000 ML IV SCH ×3 (04:00→18:45)
[2021-07-22 05:54] LABS: Absolute Lymphocytes (CBC) 0.8 K/uL (0.7-4.9); Hematocrit 27.3 % (36.0-45.0); Lymphocytes % 6.4 % (15.3-44.8); MPV 8.5 fL (7.6-11.3); RBC Red Blood Cell Count 3.05 M/uL (3.86-4.86)
[2021-07-22 06:27] LABS: Albumin 2.1 g/dL (3.4-5.0); Bilirubin Total 0.5 mg/dL (0.2-1.0); Magnesium 2.3 mg/dL (1.8-2.4); Phosphorus 2.9 mg/dL (2.5-4.9); Potassium 3.8 mmol/L (3.5-5.1); Protein, Total 5.6 g/dL (6.4-8.2)
[2021-07-22] MEDS: PANTOPRAZOLE 40 MG INJ IVP SCH (08:43)
[2021-07-22] MEDS: Levofloxacin 750mg IV 750 MG/150 ML BAG IV SCH (12:09)
[2021-07-22] MEDS: ONDANSETRON 4 MG/2 ML VIAL IV PRN ×2 (12:53→20:31)
--- NOTE | 2021-07-22 17:18 | RAD REPORT ---
EXAM DESCRIPTION: RAD - Chest Single View - 07/22/2021 4:45 pm CLINICAL HISTORY: Device placement PICC line placement IMPRESSION: PICC line with its tip in the superior vena cava
--- NOTE | 2021-07-22 19:09 | PN ---
Date of Progress Note: 07/22/2021 Status post a laparotomy, status post resection of enterocutaneous and colocutaneous fistula, small b owel resection with anastomosis and loop colostomy creation. Subjective: The patient is awake, alert. This morning was ambulated with the help of physical thera py. Still nauseous, ostomy still. No gas on it. We do not expect after the next 2 days anyway. Objective: Vital Signs: 156/82, 167/78. General: Patient is awake, alert. Chest: Clear. Neck: Supple. Abdomen: Soft and depressible changes were done today in midline incision. Clean. Fascia is intact . Ostomy is viable. No gas yet. Bowel sounds hypoactive. EXTREMITIES: Good capillary refill. No calf tenderness. Laboratory Data: Blood work shows WBC count of 13, with hemoglobin of 9.4, and platelets of 185. Po tassium 3.8, bicarb is 19. Assessment: A 75-year-old patient with multiple medical problems also with the colostomy, resection of fistulous, small-bowel resection. Today, we encouraged incentive spirometry ambulation, SCD. We are going to continue wet-to-dry dressing daily and we are going to order a wound VAC for midline for tomorrow. Continue antibiotics. Medical service is helping us with blood pressure. Ambulation, ph ysical therapy is working on that. We are going to decrease the fluid to 60. We are going to get a PICC line since she has poor peripheral access. HM/MODL Voice ID: [id number] Report ID: [id number]
[2021-07-23] MEDS: NA CHLORIDE 0.9% 1,000 ML IV SCH ×6 (05:27→20:07)
[2021-07-23] MEDS: HYDROMORPHONE HCL 1 MG/ML INJ IV PRN ×3 (08:09→20:07)
[2021-07-23] MEDS: ONDANSETRON 4 MG/2 ML VIAL IV PRN (08:10)
[2021-07-23] MEDS: PANTOPRAZOLE 40 MG INJ IVP SCH (09:06)
[2021-07-23 11:12] LABS: Absolute Lymphocytes (CBC) 1.1 K/uL (0.7-4.9); Hematocrit 27.5 % (36.0-45.0); Lymphocytes % 7.7 % (15.3-44.8); MPV 8.6 fL (7.6-11.3); RBC Red Blood Cell Count 3.08 M/uL (3.86-4.86)
[2021-07-23] MEDS: Levofloxacin 750mg IV 750 MG/150 ML BAG IV SCH (13:36)
[2021-07-23] MEDS: VALSARTAN 160 MG TAB PO SCH (16:07)
[2021-07-23] MEDS: AMLODIPINE 5 MG TAB PO SCH (16:08)
[2021-07-23] MEDS: MELATONIN 5 MG TABLET PO PRN (21:52)
[2021-07-23] MEDS: METRONIDAZOLE 500mg IVPB 500 MG/100 ML BAG IV SCH (23:36)
[2021-07-24] MEDS: ZOLPIDEM TARTRATE 5 MG TABLET PO PRN (01:45)
[2021-07-24] MEDS: ONDANSETRON 4 MG/2 ML VIAL IV PRN ×2 (01:45→17:44)
--- NOTE | 2021-07-24 01:52 | PN ---
Date of Progress Note: 07/23/2021 Diagnosis: Status post small bowel resection and anastomosis, laparotomy, and takedown of colocutane ous and enterocutaneous fistulas. Subjective: The patient is doing well. She says she is just having difficult time sleeping since th e times of the day varies inside the hospital, the way she see the windows. So we are going to give her some melatonin to help her sleep, although she has no distress at this moment, but she is asking for it. Other than that, she is not vomiting today. She was nauseous previously and the ostomy stil l with no gas seen. NG tube output is minimal. Objective: Vital Signs: Blood pressure of 116 and then 181. We asked the primary doctor to help us with that and we gave green light to start medications by mouth with a sip of water. General: The patient is awake and alert. Eyes: Pupils anicteric. Chest: Clear. Abdomen: Soft and depressible. Intact surgical site. Ostomy viable and still no gas. Extremities: Good capillary refill. No calf tenderness. Laboratory Data: WBC count is 14, and hemoglobin of 9.3 and chloride is 119. Plan: Once again may have p.o. medication with a sip of water, but no diet yet. We are waiting for the ostomy to start functioning a little better. Ambulation, she has been moving around today and rodolfo vann has incentive spirometry in front of her and she has been using it. Once again we going to request the primary doctor to help us with the blood pressure on her. HM/MODL Voice ID: [id number] Report ID: [id number]
[2021-07-24] MEDS: HYDROMORPHONE HCL 1 MG/ML INJ IV PRN ×5 (04:17→20:31)
[2021-07-24] MEDS: METRONIDAZOLE 500mg IVPB 500 MG/100 ML BAG IV SCH ×3 (05:15→19:51)
[2021-07-24 06:25] LABS: Absolute Lymphocytes (CBC) 1.2 K/uL (0.7-4.9); Hematocrit 27.8 % (36.0-45.0); Lymphocytes % 9.5 % (15.3-44.8); MPV 8.4 fL (7.6-11.3)
[2021-07-24 06:33] LABS: BUN Blood Urea Nitrogen 18 mg/dL (7-18); Bicarbonate 17 mmol/L (21-32); Glucose Level 99 mg/dL (74-106); Magnesium 1.9 mg/dL (1.8-2.4); Potassium 3.4 mmol/L (3.5-5.1); Sodium Level 139 mmol/L (136-145)
[2021-07-24] MEDS: VALSARTAN 160 MG TAB PO SCH (09:45)
[2021-07-24] MEDS: PANTOPRAZOLE 40 MG INJ IVP SCH (09:45)
[2021-07-24] MEDS: AMLODIPINE 5 MG TAB PO SCH (09:45)
[2021-07-24] MEDS: Levofloxacin 750mg IV 750 MG/150 ML BAG IV SCH (13:13)
[2021-07-24] MEDS: PROMETHAZINE INJ 25 MG/ML AMP IV PRN (20:37)
[2021-07-24] MEDS: NA CHLORIDE 0.9% 1,000 ML IV SCH (20:38)
[2021-07-25] MEDS: METRONIDAZOLE 500mg IVPB 500 MG/100 ML BAG IV SCH ×5 (00:12→23:12)
--- NOTE | 2021-07-25 01:49 | PN ---
Date of Progress Note: 07/24/2021 Diagnosis: Bowel resection, loop colostomy, takedown of coloenteric and enterocutaneous fistula. Subjective: The patient is doing well. Finally, the blood pressure is slightly better right now. N G tube is minimal. Objective: Physical exam unchanged. Wound VAC cannot be changed. As the hospital does not have the canisters to do the wound VAC in the midline, so we are going to continue with wet-to-dry, and once again we are going to continue with ambulation. Assessment: . Plan: Wound VAC when available to the midline, out of bed ambulation, and clamp the NG tube. Awaiti ng for gas to be in the ostomy bag. Once that happens, we will advance diet. HM/MODL Voice ID: [id number] Report ID: [id number]
--- NOTE | 2021-07-25 03:40 | P.PN ---
Subjective Date of Service: 07/21/21 Patient is doing well. Getting out of bed into a chair. Clinical symptoms are stable. Continue with NG tube to suction. Plan to put wound VAC on the abdominal wound. Status post bowel resection, fistulectomy and colostomy placement Review of Systems 10-point ROS is otherwise unremarkable Physical Examination - Vital Signs Temperature: 97.8 F Blood Pressure: 147/57 Pulse: 87 Respirations: 17 Pulse Ox (%): 91 - Physical Exam General: Alert, In no apparent distress, Oriented x3 HEENT: Atraumatic, PERRLA, EOMI Neck: Supple, JVD not distended Respiratory: Clear to auscultation bilaterally, Normal air movement Cardiovascular: Regular rate/rhythm, Normal S1 S2, No murmurs Gastrointestinal: Normal bowel sounds, Soft and benign, Non-distended, No tenderness Musculoskeletal: No clubbing, No swelling, No tenderness Neurological: Sensation intact, Cranial nerves 3-12 intact - Studies Laboratory Data (last 24 hrs) 07/24/21 05:49: Sodium 139, Potassium 3.4 L, BUN 18, Creatinine 0.60, Glucose 99, Magnesium 1.9 07/24/21 05:49: WBC 12.20 H, Hgb 9.4 L, Hct 27.8 L, Plt Count 208 Microbiology Data (last 24 hrs): 07/23/21 09:30 Sputum Sputum Gram Stain - Final Medications List Reviewed: Yes Assessment & Plan - Problems (Diagnosis) (1) Status post small bowel resection Current Visit: Yes Status: Acute (2) Status post colostomy Current Visit: Yes Status: Acute (3) History of colon cancer Current Visit: No Status: Acute (4) History of permanent cardiac pacemaker placement Current Visit: No Status: Chronic (5) Hypertension Current Visit: No Status: Chronic - Plan Plan: 1. IV antibiotics 2. IV fluids 3. Wound care 4. Physical therapy 5. Monitor labs 6. GI and DVT prophylaxis Discharge Plan: Home Plan to discharge in: Greater than 2 days - Advance Directives Does patient have a Living Will: No Does patient have a Durable POA for Healthcare: No - Code Status/Comfort Care Code Status Assessed: Yes Code Status: Full Code Critical Care: No Time Spent Managing PTS Care (In Minutes): 35
--- NOTE | 2021-07-25 03:42 | P.PN ---
Date of Service: 07/22/21 Subjective Patient doing well overall. Clinical symptoms continue to improve. Patient status post surgery and doing well. Colostomy with a little bit air. Bowel sounds are positive. Status post bowel resection, fistulectomy and colostomy placement Review of Systems 10-point ROS is otherwise unremarkable Physical Examination - Vital Signs Reviewed - Physical Exam General: Alert, In no apparent distress, Oriented x3; NG tube to suction Respiratory: Clear to auscultation bilaterally, Normal air movement Cardiovascular: Regular rate/rhythm, Normal S1 S2, No murmurs Gastrointestinal: Decreased breath sounds appropriately tender and colostomy Musculoskeletal: No clubbing, No swelling, No tenderness Neurological: Sensation intact, Cranial nerves 3-12 intact Assessment & Plan - Problems (Diagnosis) (1) Status post small bowel resection Current Visit: Yes Status: Acute (2) Status post colostomy Current Visit: Yes Status: Acute (3) History of colon cancer Current Visit: No Status: Acute (4) History of permanent cardiac pacemaker placement Current Visit: No Status: Chronic (5) Hypertension Current Visit: No Status: Chronic - Plan Continue with plan of care as mentioned below: 1. IV antibiotics 2. IV fluids 3. Wound care 4. Physical therapy 5. Monitor labs 6. GI and DVT prophylaxis Discharge Plan: Home Plan to discharge in: Greater than 2 days - Advance Directives Does patient have a Living Will: No Does patient have a Durable POA for Healthcare: No - Code Status/Comfort Care Code Status Assessed: Yes Code Status: Full Code Critical Care: No Time Spent Managing PTS Care (In Minutes): 35
--- NOTE | 2021-07-25 03:44 | P.PN ---
Date of Service: 07/23/21 Subjective Patient continues to improve. Status post bowel resection, fistulectomy, and colostomy placement. Wound to be closed by wound VAC. Review of Systems 10-point ROS is otherwise unremarkable Physical Examination - Vital Signs Reviewed - Physical Exam General: Alert, In no apparent distress, Oriented x3; NG tube to suction Respiratory: Clear to auscultation bilaterally, Normal air movement Cardiovascular: Regular rate/rhythm, Normal S1 S2, No murmurs Gastrointestinal: Decreased breath sounds appropriately tender and colostomy Musculoskeletal: No clubbing, No swelling, No tenderness Neurological: Sensation intact, Cranial nerves 3-12 intact Assessment & Plan - Problems (Diagnosis) (1) Status post small bowel resection Current Visit: Yes Status: Acute (2) Status post colostomy Current Visit: Yes Status: Acute (3) History of colon cancer Current Visit: No Status: Acute (4) History of permanent cardiac pacemaker placement Current Visit: No Status: Chronic (5) Hypertension Current Visit: No Status: Chronic - Plan Continue with plan of care as mentioned below: 1. Continue with IV antibiotics 2. Continue with IV fluids 3. Continue with wound care 4. Continue with Physical therapy 5. Monitor labs 6. GI and DVT prophylaxis Discharge Plan: Home Plan to discharge in: Greater than 2 days - Advance Directives Does patient have a Living Will: No Does patient have a Durable POA for Healthcare: No - Code Status/Comfort Care Code Status Assessed: Yes Code Status: Full Code Critical Care: No Time Spent Managing PTS Care (In Minutes): 35
--- NOTE | 2021-07-25 03:46 | P.PN ---
Date of Service: 07/24/21 Subjective Patient clinical symptoms improving. Status post bowel resection, fistulectomy, and colostomy placement-Wound to be closed by wound VAC. Patient with air in the colostomy Review of Systems 10-point ROS is otherwise unremarkable Physical Examination - Vital Signs Reviewed - Physical Exam General: Alert, In no apparent distress, Oriented x3; NG tube to suction Respiratory: Clear to auscultation bilaterally, Normal air movement Cardiovascular: Regular rate/rhythm, Normal S1 S2, No murmurs Gastrointestinal: Decreased breath sounds appropriately tender and colostomy Musculoskeletal: No clubbing, No swelling, No tenderness Neurological: No focal deficits Assessment & Plan - Problems (Diagnosis) (1) Status post small bowel resection Current Visit: Yes Status: Acute (2) Status post colostomy Current Visit: Yes Status: Acute (3) History of colon cancer Current Visit: No Status: Acute (4) History of permanent cardiac pacemaker placement Current Visit: No Status: Chronic (5) Hypertension Current Visit: No Status: Chronic - Plan Continue with plan of care as mentioned below: 1. Continue with IV antibiotics 2. Continue with IV fluids 3. Continue with wound care 4. Continue with Physical therapy 5. Monitor labs 6. GI and DVT prophylaxis Discharge Plan: Home Plan to discharge in: Greater than 2 days - Advance Directives Does patient have a Living Will: No Does patient have a Durable POA for Healthcare: No - Code Status/Comfort Care Code Status Assessed: Yes Code Status: Full Code Critical Care: No Time Spent Managing PTS Care (In Minutes): 35
[2021-07-25] MEDS ORDERED: NA CHLORIDE 0.9% 1,000 ML IV SCH (04:00)
[2021-07-25] MEDS: ONDANSETRON 4 MG/2 ML VIAL IV PRN ×2 (04:04→20:12)
[2021-07-25] MEDS: HYDROMORPHONE HCL 1 MG/ML INJ IV PRN ×3 (04:19→20:13)
[2021-07-25 06:11] LABS: Absolute Lymphocytes (CBC) 0.9 K/uL (0.7-4.9); Lymphocytes % 7.3 % (15.3-44.8); MPV 8.2 fL (7.6-11.3); RBC Red Blood Cell Count 3.11 M/uL (3.86-4.86)
[2021-07-25 06:54] LABS: ALT/SGPT 17 U/L (12-78); AST/SGOT 13 U/L (15-37); Albumin 1.9 g/dL (3.4-5.0); Alkaline Phosphatase 65 U/L (45-117); BUN Blood Urea Nitrogen 13 mg/dL (7-18); Bicarbonate 17 mmol/L (21-32); Bilirubin Total 0.5 mg/dL (0.2-1.0); Glucose Level 99 mg/dL (74-106); Magnesium 1.9 mg/dL (1.8-2.4); Protein, Total 5.7 g/dL (6.4-8.2); Sodium Level 139 mmol/L (136-145)
[2021-07-25 06:57] LABS: Potassium 2.9 mmol/L (3.5-5.1)
[2021-07-25] MEDS: PANTOPRAZOLE 40 MG INJ IVP SCH (08:37)
[2021-07-25] MEDS: KCL 20 MEQ/100 mL IVPB 100 ML IV SCH ×2 (08:37→10:34)
[2021-07-25] MEDS: AMLODIPINE 5 MG TAB PO SCH (08:38)
[2021-07-25] MEDS: VALSARTAN 160 MG TAB PO SCH (08:38)
[2021-07-25] MEDS: PROMETHAZINE INJ 25 MG/ML AMP IV PRN (08:38)
--- NOTE | 2021-07-25 10:13 | PN ---
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 Subjective: The patient is improving slowly. Still nauseous. Objective: Vital Signs: Stable. Chest: Clear. Abdomen: Soft and depressible. Midline incision is packed today. It just looks intact. Ostomy sti ll viable, although no gas in the ostomy area. Bowel sounds are diminished. Extremities: Good capillary refill. Laboratory Data: Blood work reviewed with the patient. Plan: Discontinue NG tube. We will decide this afternoon, we are going to give her some clear liqui d diet or not. Ambulation, incentive spirometry, DVT prophylaxis. Continue wet-to-dry dressing marino ges to midline. We are still waiting for the wound VAC, which is not available at this moment at [facility] institution. SEAN/DARNELL Voice ID: [id number] Report ID: [id number]
[2021-07-25] MEDS: Levofloxacin 750mg IV 750 MG/150 ML BAG IV SCH (14:54)
--- NOTE | 2021-07-25 15:16 | P.PN ---
Date of Service: 07/25/21 Subjective: NGT dc'd this morning with gas in ostomy nauseated earlier today, mild emesis episode ROS: 10 point ROS as noted above, otherwise negative Physical Exam: Gen: AOx3, laying in bed HEENT: normal conjunctiva, sclera anicteric CV: regular rate/rhyhtm Pulm: clear to auscultation bilaterally, nonlabored on room air Abd: soft, nontender, wound dressing in place, ostomy with gas Neuro: normal speech/affect Problem List: enterocutaneous fistula s/p small bowel resection, lysis of adhesions s/p colostomy h/o colon cancer h/o permanent cardiac pacemaker placement HTN continue IVF continue IV antibiotics local wound care, wet-to-dry per general surgery PT consulted labs improving Code: full Dispo: home, likely ~2 days Time Spent Managing PTS Care (In Minutes): 35
[2021-07-25] MEDS: NACHLORIDE 0.45% 1,000 ML with NA BICARB 8.4% 50 MEQ IV SCH ×2 (16:46)
[2021-07-25] MEDS: MELATONIN 5 MG TABLET PO PRN (23:12)
[2021-07-25] MEDS: KCL 20 MEQ/100 mL IVPB 20 MEQ/100 ML BAG IV SCH (23:50)
[2021-07-26] MEDS ORDERED: WATER FOR INJ,STERILE 10 ML ONE (00:24)
[2021-07-26] MEDS ORDERED: ALTEPLASE 2 MG/VIAL IV SCH (01:00)
[2021-07-26] MEDS: KCL 20 MEQ/100 mL IVPB 20 MEQ/100 ML BAG IV SCH (02:48)
[2021-07-26] MEDS: HYDROMORPHONE HCL 1 MG/ML INJ IV PRN ×3 (05:02→18:51)
[2021-07-26] MEDS: ONDANSETRON 4 MG/2 ML VIAL IV PRN (05:02)
[2021-07-26] MEDS: METRONIDAZOLE 500mg IVPB 500 MG/100 ML BAG IV SCH ×3 (05:09→17:40)
[2021-07-26 06:20] LABS: Hematocrit 29.4 % (36.0-45.0); Lymphocytes % 15.7 % (15.3-44.8); MPV 8.1 fL (7.6-11.3); RBC Red Blood Cell Count 3.27 M/uL (3.86-4.86)
--- NOTE | 2021-07-26 06:23 | P.PN ---
Date of Service: 07/26/21 Subjective: Continues with some slight nausea Eating ice chips since yesterday With occasional abdominal discomfort/gas pains ROS: 10 point ROS as noted above, otherwise negative Physical Exam: Gen: AOx3, laying in bed HEENT: normal conjunctiva, sclera anicteric CV: regular rate/rhythm Pulm: clear to auscultation bilaterally, nonlabored respirations on room air Abd: soft, mild tenderness around surgical incision site, ostomy with minimal liquid stool, air Neuro: normal speech/affect Problem List: enterocutaneous fistula s/p small bowel resection, lysis of adhesions s/p colostomy h/o colon cancer h/o permanent cardiac pacemaker placement HTN continue IVF continue IV antibiotics local wound care, wet-to-dry per general surgery; planning for wound vac PT consulted labs improving NG tube removed 07/25 diet/ pain medication per general surgery home meds resumed Code: full Dispo: home, likely ~2-3 days Time Spent Managing PTS Care (In Minutes): 35
[2021-07-26 06:48] LABS: ALT/SGPT 15 U/L (12-78); AST/SGOT 12 U/L (15-37); Albumin 2.1 g/dL (3.4-5.0); Alkaline Phosphatase 65 U/L (45-117); BUN Blood Urea Nitrogen 13 mg/dL (7-18); Bicarbonate 17 mmol/L (21-32); Bilirubin Total 0.5 mg/dL (0.2-1.0); Glucose Level 92 mg/dL (74-106); Magnesium 1.9 mg/dL (1.8-2.4); Potassium 3.7 mmol/L (3.5-5.1); Protein, Total 5.8 g/dL (6.4-8.2); Sodium Level 140 mmol/L (136-145)
[2021-07-26 07:16] LABS: Blood Morphology Comment NOT SEEN (NOT SEEN); Platelet Estimate ADEQ; White Blood Cell Scan OK (OK)
[2021-07-26] MEDS: PANTOPRAZOLE 40 MG INJ IVP SCH (09:52)
[2021-07-26] MEDS: AMLODIPINE 5 MG TAB PO SCH (09:53)
[2021-07-26] MEDS: VALSARTAN 160 MG TAB PO SCH (09:54)
--- NOTE | 2021-07-26 12:01 | PN ---
Date of Progress Note: 07/26/2021 Status post small bowel resection with anastomosis, status post a colostomy, status post laparotomy w ith takedown of colocutaneous and enterocutaneous fistula, extensive lysis of adhesions. Subjective: This is the case of a female, 75-year-old patient who received all the surgeries mention ed above. The patient is recovering for the first time today. Last time, we were able to remove the NG tube. We have to consider and remember this patient, last time we have surgery not even as big a s this one, stayed 3 months in the hospital for prolonged ileus that was in [facility] by other surgeons. So, we had all the surgery. I believe we are making some progress. The NG tube was uligi darline yesterday. She is starting to get a clear liquid diet, although and she is trying. No nausea, n o vomiting today, although last night she is still nauseous. Physical Examination: CHEST: Clear. ABDOMEN: Soft and depressible. Ostomy is viable. Small amount of gas present. The midline we are doing wet-to-dry dressing is still intact. Fascia is intact. Bowel sounds diminished. EXTREMITIES: Good capillary refill. VITAL SIGNS reviewed. Laboratory Data: Blood work review. Plan: We have to be nice and slow in this patient diet. We do not want her to aspirate and vomit an d aspirate. We ordered a wound VAC several days ago, but the hospitalist has not been able to get th e equipment to put around, so we are going to continue wet-to-dry dressing in the meantime. She is g oing to continue with incentive spirometry. We also going to once again continue with the rehab for ambulation. Wound care describe d above. Diet slowly. HM/MODL Voice ID: [id number] Report ID: [id number]
[2021-07-26] MEDS: Levofloxacin 750mg IV 750 MG/150 ML BAG IV SCH (13:27)
[2021-07-26] MEDS ORDERED: POTASSIUM CL SA 10 MEQ TAB PO ONE (14:00)
[2021-07-26] MEDS: NACHLORIDE 0.45% 1,000 ML with NA BICARB 8.4% 50 MEQ IV SCH ×6 (14:00→14:21)
[2021-07-26] MEDS: ZOLPIDEM TARTRATE 5 MG TABLET PO PRN (21:53)
[2021-07-27] MEDS: METRONIDAZOLE 500mg IVPB 500 MG/100 ML BAG IV SCH ×4 (00:25→17:06)
[2021-07-27] MEDS: HYDROMORPHONE HCL 1 MG/ML INJ IV PRN ×5 (05:13→22:36)
[2021-07-27 05:44] LABS: BUN Blood Urea Nitrogen 10 mg/dL (7-18); Bicarbonate 19 mmol/L (21-32); Glucose Level 89 mg/dL (74-106); Magnesium 1.7 mg/dL (1.8-2.4); Potassium 3.8 mmol/L (3.5-5.1); Sodium Level 139 mmol/L (136-145)
--- NOTE | 2021-07-27 06:14 | P.PN ---
Date of Service: 07/27/21 Subjective: feels making slow improvement had some ice chips / sips yesterday, with some nausea feels very weak, frustrated that she is requiring assistance with think she typically does not need help with, due to discomfort/mary ROS: 10 point ROS as noted above, otherwise negative Physical Exam: Gen: AOx3, laying in bed, NAD at rest HEENT: normal conjunctiva, sclera anicteric CV: regular rate/rhythm Pulm: clear to auscultation bilaterally, nonlabored respirations on room air Abd: soft, mild tenderness around surgical incision site, ostomy with minimal liquid stool, air Neuro: normal speech/affect Problem List: enterocutaneous fistula s/p small bowel resection, lysis of adhesions s/p colostomy h/o colon cancer h/o permanent cardiac pacemaker placement HTN continue IV antibiotics wound vac placed PT consulted labs improving NG tube removed 07/25 diet/ pain medication per general surgery, advanced to liquid diet home meds resumed requiring lots of pain control, slowly advancing diet dc IVF Code: full Dispo: home with home health, wound vac,, likely ~2-3 days pending pain control, tolerating PO Time Spent Managing PTS Care (In Minutes): 35
[2021-07-27 06:28] LABS: Hematocrit 27.5 % (36.0-45.0); MPV 7.4 fL (7.6-11.3); RBC Red Blood Cell Count 3.13 M/uL (3.86-4.86)
[2021-07-27] MEDS ORDERED: POTASSIUM CL SA 10 MEQ TAB PO ONE (09:00)
[2021-07-27] MEDS: PANTOPRAZOLE 40 MG INJ IVP SCH (09:08)
[2021-07-27] MEDS: VALSARTAN 160 MG TAB PO SCH (09:08)
[2021-07-27] MEDS: AMLODIPINE 5 MG TAB PO SCH (09:09)
[2021-07-27] MEDS: ONDANSETRON 4 MG/2 ML VIAL IV PRN ×2 (09:10→22:42)
[2021-07-27] MEDS: Levofloxacin 750mg IV 750 MG/150 ML BAG IV SCH (13:19)
[2021-07-27 20:51] VITALS: O2SAT 97
[2021-07-27] MEDS: ZOLPIDEM TARTRATE 5 MG TABLET PO PRN (22:35)
[2021-07-27] MEDS: ENSURE HIGH PROTEIN 237 ML CAN PO SCH (22:36)
[2021-07-28] MEDS: METRONIDAZOLE 500mg IVPB 500 MG/100 ML BAG IV SCH ×3 (00:06→12:00)
[2021-07-28] MEDS ORDERED: ALTEPLASE 2 MG/VIAL IV SCH (04:15)
[2021-07-28] MEDS ORDERED: WATER FOR INJ,STERILE 10 ML ONE (04:49)
[2021-07-28 05:10] LABS: Hematocrit 29.7 % (36.0-45.0); MPV 7.3 fL (7.6-11.3); RBC Red Blood Cell Count 3.33 M/uL (3.86-4.86)
[2021-07-28] MEDS ORDERED: TRAMADOL HCL 50 MG TAB PO ONE (05:13)
--- NOTE | 2021-07-28 06:10 | P.PN ---
Date of Service: 07/28/21 Subjective: Slowly improving, ambulating with PT, diet, occasional abdominal pains ROS: 10 point ROS as noted above, otherwise negative Physical Exam: Gen: AOx3, sitting up in chair HEENT: normal conjunctiva, sclera anicteric CV: regular rate/rhythm Pulm: clear to auscultation bilaterally, nonlabored respirations on room air Abd: soft, mild tenderness around surgical incision site, ostomy with liquid stool, air Neuro: normal speech/affect Problem List: enterocutaneous fistula s/p small bowel resection, lysis of adhesions s/p colostomy h/o colon cancer h/o permanent cardiac pacemaker placement HTN NG tube removed 07/25 wound vac placed labs improving Working with PT, plan for rehab overall improving, slowly home meds resumed recommend dc mark, patient hesitant; discussed risk for infection ok to dc to rehab once approved and ok with general surgery Code: full Dispo: rehab Time Spent Managing PTS Care (In Minutes): 35
[2021-07-28 06:20] LABS: ALT/SGPT 15 U/L (12-78); AST/SGOT 16 U/L (15-37); Albumin 2.1 g/dL (3.4-5.0); Alkaline Phosphatase 57 U/L (45-117); BUN Blood Urea Nitrogen 8 mg/dL (7-18); Bicarbonate 22 mmol/L (21-32); Bilirubin Total 0.4 mg/dL (0.2-1.0); Glucose Level 114 mg/dL (74-106); Potassium 3.7 mmol/L (3.5-5.1); Protein, Total 5.5 g/dL (6.4-8.2); Sodium Level 138 mmol/L (136-145)
[2021-07-28 07:21] LABS: Magnesium 1.6 mg/dL (1.8-2.4)
[2021-07-28] MEDS: AMLODIPINE 5 MG TAB PO SCH (08:50)
[2021-07-28] MEDS: PANTOPRAZOLE 40 MG INJ IVP SCH (08:50)
[2021-07-28] MEDS: VALSARTAN 160 MG TAB PO SCH (08:51)
[2021-07-28] MEDS: ENSURE HIGH PROTEIN 237 ML CAN PO SCH (08:51)
[2021-07-28] MEDS: HYDROMORPHONE HCL 1 MG/ML INJ IV PRN ×2 (08:51→11:01)
[2021-07-28] MEDS ORDERED: POTASSIUM CL SA 10 MEQ TAB PO ONE (09:00)
[2021-07-28 12:28] VITALS: BP 128/61; TEMP 97.6
[2021-07-28] MEDS ORDERED: Levofloxacin 750mg IV 750 MG/150 ML BAG IV SCH (13:00)
[2021-07-28] MEDS ORDERED: METRONIDAZOLE 500mg IVPB 500 MG/100 ML BAG IV SCH (13:00)
--- NOTE | 2021-07-28 14:42 | PN ---
Date of Progress Note: 07/28/2021 Diagnosis: Status post bowel resection, status post colostomy, takedown of the colocutaneous and ent erocutaneous fistula, extensive lysis of adhesions. Subjective: The patient is improving and getting better, although she has small portions of food. O stomy is functional, but she is still very weak and has an open wound on the abdomen that is being ta cronel care of. She denies any nausea today or vomiting. Denies any dysuria or hematuria. Objective: Vital Signs: Show a temperature of 97 with blood pressure 128/61. Chest: Clear. Abdomen: Intact surgical site. Ostomy viable with small amount of gas. Extremities: Good capillary refill. Laboratory Data: Blood work shows a WBC count of 9, hemoglobin of 10.1. Potassium 3.7. Assessment And Plan: We discussed the case with the patient, the director of casework and there is a possib ility that the patient have to meet the criteria for receiving inpatient rehabilitation that will may help her. I assessed the staging on her to be a safe discharge. We are going to encourage ambulati on, nutrition, DVT prophylaxis, incentive spirometry. HM/MODL Voice ID: [id number] Report ID: [id number]
== END 2021-07-28 15:20 | DRG 329 ==
LOC: OR 06:19 → 3RD-ICU 14:08 → 2ND 07-22 14:40
PROVIDERS: ADMIT Surgery; ATTEND Surgery
PROC: 0WQF0ZZ Repair Abdominal Wall, Open Approach (ICD-10-PCS; 2021-07-20)
PROC: 0D1L0Z4 Bypass Transverse Colon to Cutaneous, Open Approach (ICD-10-PCS; 2021-07-20)
PROC: 0DNW0ZZ Release Peritoneum, Open Approach (ICD-10-PCS; 2021-07-20)
PROC: 0DB80ZZ Excision of Small Intestine, Open Approach (ICD-10-PCS; principal; 2021-07-20 07:30)
PROC: 02HV33Z Insertion of Infusion Device into Superior Vena Cava, Percutaneous Approach (ICD-10-PCS; 2021-07-22)
PROC: 2W13X6Z Compression of Abdominal Wall using Pressure Dressing (ICD-10-PCS; 2021-07-28)
DX: K63.2 Fistula of intestine (principal); E43 Unspecified severe protein-calorie malnutrition; L03.311 Cellulitis of abdominal wall; K66.0 Peritoneal adhesions (postprocedural) (postinfection); E03.9 Hypothyroidism, unspecified; I10 Essential (primary) hypertension; K59.09 Other constipation; I25.10 Atherosclerotic heart disease of native coronary artery without angina pectoris; K43.9 Ventral hernia without obstruction or gangrene; Z95.0 Presence of cardiac pacemaker; Z91.041 Radiographic dye allergy status; Z85.038 Personal history of other malignant neoplasm of large intestine; Z20.822 Contact with and (suspected) exposure to COVID-19; Z68.28 Body mass index [BMI] 28.0-28.9, adult
CPT/HCPCS: 36415; 36569; 71045; 80048; 80053; 82947; 83735; 84100; 84132; 85025; 85027; 87070; 87205; 88305; 88307; 94010; 94760; 97116; 97161; 97530; 99251; C9113; J0694; J1100; J1170; J2250; J2370; J2405; J2550; J2704; J2710; J2765; J2997; J3010; J3475; J3480; J7030; J7040; P9045; U0003

== ENCOUNTER 2021-07-28 15:12 | Inpatient (IN) | payer OTHER ==
--- NOTE | 2021-07-28 13:22 | R.PREADM ---
PRE-ADMISSION SCREENING FORM SCREENING DATE AND TIME 07/28/2021 09:27 (CDT) ANTICIPATED REHAB ADMISSION DATE 07/30/2021 REFERRING FACILITY [facility] REFERRAL DATE AND TIME 07/27/2021 09:27 (CDT) REFERRAL ROOM# 216 ACUTE ADMIT DATE 07/20/2021 Previous Rehabilitation(s): No. 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 Brett Lewis M.D. MR# [id number] NAME JESUS JACOBS ADDRESS [address] [place] [address] PHONE [facility] [id number] DATE OF 1945 AGE 75 SSN# [id number] GENDER female MARITAL STATUS ADMIT FROM 02 - [facility], [place] PRE-HOSPITAL LIVING SETTING 01 - Home (private home/apt. board/care, assisted living, assisted, transitional living) HOME TYPE AND DETAILS Type of home: single family house # of levels in the residence: 2 # of steps within the residence: 10 # of levels in the residence: 1 PRE-HOSPITAL LIVING WITH Family/Relatives FAMILY SUPPORT Yes PRIMARY FAMILY CONTACT NAME RAMON CASE PRIMARY FAMILY CONTACT PHONE PRIMARY FAMILY CONTACT RELATIONSHIP Spouse PHONE PRIMARY FAMILY CONTACT ON ADM.? no IS PRIMARY FAMILY CONTACT AUTH. REP.? no 1ST EMERGENCY CONTACT RAMON CASE 1ST CONTACT PHONE 1ST CONTACT RELATIONSHIP Spouse PHONE 1ST CONTACT ON ADM. no IS 1ST CONTACT AUTH. REP.? no PHONE 2ND CONTACT ON ADM.? no PATIENT EMPLOYMENT STATUS Retired (for age) PATIENT EMPLOYER No Employer PAYOR INFORMATION: 1ST PAYOR NAME MEDICARE 1ST PAYOR PHONE 1ST PAYOR INJURY/ILLNESS DUE TO ACCIDENT? No ANOTHER GREEN PARTY RESPONSIBLE? No PRIMARY REHAB/ACUTE DIAGNOSIS: SMALL BOWL ILEOSTOMY ONSET DATE 07/20/2021 REHAB IMPAIRMENT CATEGORY (NOA): 20 Miscellaneous (Misc) does NOT meet 60% rule PRIMARY DIAGNOSIS-RELATED SURGERIES: ENTEROCUTANEOUS FISTULA AND COLOCUTANEOUS FISTULA INTERVENTIONS: - HYPERTENSION Blood pressure will be regularly assessed and medications administered as per physician hyun ns. - Surgical Site Management regular assessment of surgical site and appropriate dressing changes as warranted by physician - GERD Monitor symptoms and provide medication as indicated by physician - Colostomy Training and education regarding care and management of colostomy RISK FOR COMPLICATIONS: - SKIN BREAKDOWN Nursing will assess skin daily using assessment tool and will place on Skin Breakdown Precautions as Indicated per protocol - WEAKNESS Strength training will be performed regularly by therapy staff - CARDI monitoring heart rate/signs and symptoms for cardiac distress - DVT Medications will be administered as per MD PTT and INR will be monitored to effectively mitigate risk for development of DVT or PE while here. Mobility training and regular exercise - ABDOMINAL PAIN Medications will be administered as per MD - Falls Patient will be evaluated for Fall Precautions and will be placed on Fall Precautions as indicated pe r protocol. Educated pt on fall prevention strategies to reduce/eliminate fall risk - Pneumonia pt will be instructed on use of and be encouraged to use incentive spirometry regular OOB activity and exercise to reduce risk Interval Chest X-Rays will be obtained as necessary - Infection Monitoring of surgical site and pt for signs and symptoms of infection. antibiotic therapy as indicated by physician - CVA pt's blood pressures have been inconsistent and require monitoring and medication management as inidi cated by physician. pt has heart dysrhythmia and requires medical monitoring and medication management to reduce risk for CVA SUMMARY OF ACUTE HOSPITALIZATION: Pt. is a 75 yo Right-handed female. On 07/20/2021 she was admitted to [facility] with diagnosis SMALL BOWL ILEOSTOMY. Her impairment category is Medically Complex Conditions 17 - Medical/Surgical Complications (17.8). Pre-morbidly, Pt. was independent/mod-I in Locomotion, Safety Awareness, Social Cognition, Transfers Control, and Balance; and she had good Transfers Control, Sphincter Control, Self-Care, Communication , and Endurance. Currently, she has deficits of Locomotion, Safety Awareness, Social Cognition, Transfers Control, Bal ance, Sphincter Control, Self-Care, Communication, and Endurance. Pt. is now referred to [facility] for acute in-patient rehabilitation in order to maximize patient's functional independence in activities of daily living, strength, ROM, and mobi lity. Patient has realistic goal of being discharged at assistance level 7-Ind to reside at Home with Fami ly/Relatives. PAST MEDICAL HISTORY HYPERTENSION PACEMAKER 2009 CARDIAC DYSRHYTHMIA CATARACT HYPOTHYROIDISM GERD SHOULDER TENDINITIS (GETS SHOTS) COLON CANCER PAST SURGICAL HISTORY: HERNIA REPAIR ESOPHAGEAL VARICES COLOSTOMY PLACEMENT FISTULECTOMY MEDICATION ALLERGIES: CODEINE IODINATED HYDROCODINE ENVIRONMENTAL ALLERGIES: - Substance Allergies None Known - Other Allergies None Known CODE STATUS: Full code WEIGHT/HEIGHT/BMI: WEIGHT 145 lbs HEIGHT 5' 0" BMI 28.3 DIET: - Diet Type Regular - Diet - Solid Texture Regular - Diet - Liquid Texture Regular - Tube Feed N/A SKIN DIAGRAM: on Buttocks; extent - small; stage - NS(Not Stageable). Treatment - . REVIEW OF SYSTEMS: - Gen Alert and awake Lying in bed No apparent distress Oriented to: person, time, and place - Vital Signs Temperature: 97.8 F SBP/DBP: 138/63 Pulse: 97 Resp: 18 Vital signs stable, afebrile - CVS RRR VITAL SIGNS Temperature: 97.8 F SBP/DBP: 138/63 Pulse: 97 Resp: 18 Vital signs stable, afebrile MEDICATIONS/TREATMENT: Other- See attached MAR (Medication Administration Record). CURRENT SPHINCTER CONTROL: Pre-hospital bladder status: unspecified # of bladder accidents in the last 7 days prior to screenin Pre-hospital bowel status: unspecified # of bowel accidents in the last 7 days prior to screenin Last Bowel Movement Date: 07/28/2021 CURRENT LOCOMOTION STATUS: distance walked 277 feet WITH ROLLING WALKER DETAILED CURRENT FUNCTIONAL STATUS: - Bladder accident frequency: 7-Ind - No accidents in the past 7 days - Bowel accident frequency: 7-Ind - No accidents in the past 7 days - Walking score based on distance walked: 0(N/A) score based on distance walked: 3(>=150ft) - Wheelchair score based on distance traveled: 0(N/A) QI SCORES: - Self-Care A. Eating 03-Partial/moderate assistance B. Oral hygiene 03-Partial/moderate assistance C. Toileting hygiene 03-Partial/moderate assistance E. Shower/bathe self 03-Partial/moderate assistance F. Upper body dressing 03-Partial/moderate assistance G. Lower body dressing 03-Partial/moderate assistance H. Putting on/taking off footwear 88-Not attempted due to medical condition or safety concerns - Mobility A. Roll left and right 03-Partial/moderate assistance B. Sit to lying 03-Partial/moderate assistance C. Lying to sitting on side of bed 03-Partial/moderate assistance D. Sit to stand 03-Partial/moderate assistance E. Chair/apr-ys-jqbrb transfer 03-Partial/moderate assistance F. Toilet transfer 03-Partial/moderate assistance G. Car transfer 88-Not attempted due to medical condition or safety concerns I. Walk 10 feet 03-Partial/moderate assistance J. Walk 50 feet with two turns 03-Partial/moderate assistance K. Walk 150 feet 03-Partial/moderate assistance L. Walking 10 feet on uneven surfaces 88-Not attempted due to medical condition or safety concerns M. 1 step (curb) 88-Not attempted due to medical condition or safety concerns N. 4 steps 88-Not attempted due to medical condition or safety concerns O. 12 steps 88-Not attempted due to medical condition or safety concerns P. Picking up object 03-Partial/moderate assistance R. Wheel 50 feet with two turns 88-Not attempted due to medical condition or safety concerns S. Wheel 150 feet 88-Not attempted due to medical condition or safety concerns - Bladder and Bowel Bladder continence Bowel continence - Endurance Fair - Balance Fair - Safety Awareness Fair CURRENT FUNC. DEFICITS: Self-Care, Mobility, Endurance, Balance, and Safety Awareness CURRENT / PREVIOUS ASSISTIVE DEVICES: Rolling Walker HISTORY OF FALLS. HAS THE PATIENT HAD TWO OR MORE FALLS IN THE PAST YEAR OR ANY FALL WITH INJURY IN T HE PAST YEAR?: No PRIOR SURGERY. DID THE PATIENT HAVE MAJOR SURGERY DURING THE 100 DAYS PRIOR TO ADMISSION?: Yes THERAPY NOTES FROM ACUTE CARE: Attached. SPECIAL NEEDS: - Safety Concerns Skin breakdown precautions needed due to skin breakdown risk PATIENT NEEDS ACTIVE AND ONGOING THERAPEUTIC INTERVENTION OF MULTIPLE THERAPY DISCIPLINES, INCLUDING: - Dietary and Nutrition Adequate Nutrition. Nutritional Education. Nutritional Supplements. Evaluate and Treat. - Occupational Therapy Cognitive Retraining. Patient needs Occupational Therapy for a daily minimum of 1.5 hours at least 5 out of 7 days, to improve Activities of Daily Living, including: Eating, Grooming, Bathing, Dressing, Toileting, Toilet Transfers, Community Reintegration, Higher functional activities, Adaptive Equipme nt, Splinting, Household Tasks, and Other activities as determined. Transfer Training. Safety Awarene ss. ADL Training. Evaluate and Treat. Visual Perceptual Training. Patient/Family Education. Household Tasks. - Speech Therapy Cognitive Training. Expressive Language Skills. Memory Strategies. Patient needs Speech Therapy for a daily minimum of 1.5 hours at least 5 out of 7 days, to improve: Swallowing, Cognition, Language Ski lls, and Compensatory Strategies. Receptive Language Skills. Speech Intelligibility Training. Evaluat e and Treat. - Physical Therapy Patient needs Physical Therapy for a daily minimum of 1.5 hours at least 5 out of 7 days, to improve: Mobility, Strengthening, Transfers, Stretching, ROM, Endurance, Ability to manage stairs, Gait, and Balance. Mobility Training. Gait Training. Safety Awareness. Balance Training. Transfer Training. Adelia luate and Treat. Patient/Family Education. LE Strengthening. PATIENT NEEDS CLOSE MEDICAL SUPERVISION BY A REHABILITATION PHYSICIAN FOR: Coordination of Treatment Team Wound Care Medical and Co-Morbidity Management Bowel and Bladder Management DVT Management Pain Management Post-Op Complications PATIENT REQUIRES 24X7 REHAB NURSING FOR MEDICAL AND FUNCTIONAL MGT. OF THE FOLLOWING DEFICITS: Disease Management Medication Management Patient requires 24x7 Rehabilitation Nursing for: Pain Issues, Identifying and preventing risk factor s, Monitoring and reporting current medical conditions, Assisting with ambulation and transfer, Scott ting with all ADL-s, Teaching patients about disease process and medications, Family teaching, Provid ing safe environment, Bowel and Bladder Issues, Skin Integrity, and Medication Management Patient/Family Education Providing Safe Environment Skin Integrity Pain Management Bowel and Bladder Management PATIENT REQUIRES INTENSIVE, COORDINATED INTERDISCIPLINARY APPROACH TO REHAB: Arranging Home Equipment/Services Discharge Planning Family Intervention/Training Patient needs Dietary and Nutrition Services for: Adequate Nutrition, Nutritional Supplements, and Nu tritional Education Patient needs Floatlight Powder Mixer and/or Case Management for: Discharge Planning, Arranging Home Equipmen t or Services, and Family Interventions Floatlight Powder Mixer/Case Management PATIENT REHAB POTENTIAL: Gudelia JACOBS is able and expected to receive 3 hours of individualized therapy daily on at least 5 of e very 7 days Gudelia JACOBS's prognosis for significant practical improvement within a reasonable period of time appea rs Good Expected level of measurable improvement will be of a practical value to Gudelia JACOBS's functional capa city or adaptations to impairments Has a viable Discharge Plan Medically appropriate; condition is sufficiently stable to participate in intensive rehab program DISCHARGE PLAN: - Estimated Length of Stay (days) 13. - Consensus on plan Discharge plan has been discussed with primary caregiver. Patient/Family is in agreement with the ben n. Primary caregiver is in agreement with the plan. - Patient/Family Goals Return home independently. - Planned Living Setting Upon Discharge Home, to live with Family/Relatives. Transitional Living. RECOMMENDED CARE LEVEL: IRF RECOMMENDATION DETAILS: Recommended Admission to Comprehensive Rehabilitation Program to Increase Functional [place] SCREENER'S COMPLETENESS CONFIRMATION: - Screening Confirmation The patient data collection on this preadmission screening form is finished PHYSICIANS REVIEW AND ADMISSION DETERMINATION Admit - Based on my review of the Pre-Admission Screening results, in my medical judgment and experie nce, I concur with the findings and recommend admission to [facility], as this patient requires an IRF level of care. SIGNATURE PANEL: Hand Former Helper - [electronically] signed by Frank Roe on 07/28/2021 at 11:49 (CDT) Hand Former Helper - [electronically] signed by Cornell Byrd PT on 07/28/2021 at 12:55 (CDT) Physician Reviewer - [electronically] signed by Dr. Brett Lewis M.D. on 07/28/2021 at 13:21 (CDT )
--- OUTSIDE RECORDS SUMMARY | 2021-07-28 15:30 | XMS REPORT | Continuity of Care Document ---
:1945 Author Organization [facility] t Address [address] [place] [address] Care Team Providers Name Role Phone Mauricio [...] Mem oria 3-15 10:47:00 l TREMOR 00:00: [place] 00 Active 07/26/2020 [facility] DX: Diagnosis Active 2019-05-20 Mem oria R10.12=LEF 1-03 08:51:00 l T UPPER DX: 00:00: [place] QUADRANT R10.12=LEF 00 PAIN/R13. T UPPER QUADRANT PAIN/R13. Active 05/16/2019 [facility] UNK Diagnosis Active 2018-052019-04-08 Mem oria 1-07 10:20:00 l UNK 00:00: [place] 00 Active 03/20/2019 [facility] DX: Diagnosis Active 2018-052019-04-07 Mem oria R13.10=DYS 1- 10:27:00 l PHAGIA, DX: 00:00: [place] UNSPECIFIE R13.10=DYS 00 D/K21.9= PHAGIA, UNSPECIFIE D/K21.9= Active 03/20/2019 [facility] DX: OTHER Diagnosis Active 2018-10-23 Memoria ABNORMAL 10-08 14:23:00 l AND DX: 00:00: [place] INCONCLUSI OTHER 00 VE FIND ABNORMAL AND INCONCLUSI VE FIND Active 10/08/2018 [facility] XRAY Diagnosis Active 2017-11-29 Mem oria 7- 10:58:00 l XRAY 10:54: [place] 00 Active 11/29/2017 [facility] GASTROGAST Diagnosis Active 2017-11-22 Memoria NOA 7-10 08:52:00 l FISTULA 00:00: [place] GASTROGAST 00 NOA FISTULA Active 11/20/2017 [facility] M25.561/Z9 Diagnosis Active 2017-08-01 Memoria 6.651 3 12:42:00 l 12:42: [place] M25.561/Z9 00 6.651 Active 08/01/2017 [facility] SCREENING Diagnosis Active 2017-07-10 Memoria - 12:01:00 l 00:00: [place] SCREENING 00 Active 06/13/2017 [facility] DX: Diagnosis Active 2017-05-21 Mem oria M81.0=AGE- 1-04 11:14:00 l RELATED DX: 00:00: [place] OSTEOPOROS M81.0=AGE- 00 IS WITHO RELATED OSTEOPOROS IS WITHO Active 05/17/2017 [facility] M17.11 Diagnosis Active 2017-03-07 Mem oria 02-02 21:55:00 l M17.11 00:00: [place] 00 Active 02/02/2017 [facility] K31.9 Diagnosis Active 2016-06-22 Mem oria DISEASE OF 2-06 06:56:00 l STOMACH K31.9 00:00: [place] AND DISEASE OF 00 DUODENUM, STOMACH U AND DUODENUM, U Active 06/19/2016 [facility] R13.10 Diagnosis Active 2016-06-26 Mem oria 2- 17:22:00 l R13.10 00:00: [place] 00 Active 06/14/2016 [facility] SCREENING Diagnosis Active 2015-052016-04-03 Memoria MAMMGORAM 024 12:43:00 l 00:00: [place] SCREENING 00 MAMMGORAM Active 03/06/2016 [facility] R05 Diagnosis Active 2015-07-27 Mem oria 3 10:51:00 l R05 10:50: [place] 00 Active 07/27/2015 [facility] DEHYDRATIO Diagnosis Active 2015-07-07 Memoria N 2- 09:31:00 l 00:00: [place] DEHYDRATIO 00 N Active 07/06/2015 [facility] CHEST , Diagnosis Active 2015-07-07 Me moria ABDOMINAL 06-30 09:41:00 l [place] CHEST , 00:00: Her garnett L ABDOMINAL 00 ONLYPT [place] L ONLYPT Active 06/30/2015 [facility] 599.0 Diagnosis Active 2014-09-08 Mem oria ACUTE 08-19 15:21:00 l LOWER UTI 599.0 00:00: Obi n ACUTE 00 LOWER UTI Active 08/19/2014 [facility] ICD 787.20 Diagnosis Active 2014-08-20 Memoria 530.3 / -24 06:44:00 l CPT 65594 ICD 00:00: [place] 787.20 00 530.3 / CPT 15483 Active 08/04/2014 [facility] ICD 787.20 Diagnosis Active 2013-052014-05-25 Memoria 530.3 / -16 21:55:00 l CPT 05233 ICD 00:00: [place] 787.20 00 530.3 / CPT 28357 Active 04/28/2014 [facility] 789.06/787 Diagnosis Active 2013-052014-05-12 Memoria .20 06-07 05:32:00 l 00:00: [place] 789.06/787 00 .20 Active 04/07/2014 [facility] 51883 Diagnosis Active 2013-052014-05-18 Mem oria 61718 06-07 19:39:00 l 32671 00:00: [place] [address] 00 Active 04/07/2014 [facility] DYSPHAGIA Diagnosis Active 2013-052014-04-13 Memoria / HITAL - 10:23:00 l HERNIA / 00:00: [place] GERD DYSPHAGIA 00 / HITAL HERNIA / GERD Active 04/03/2014 [facility] SEVERE Diagnosis Active 2013-07-09 Mem oria HEADACHE 07-09 11:17:00 l SEVERE 00:00: [place] HEADACHE 00 Active 07/09/2013 [facility] 724.4 / Diagnosis Active 2013-07-07 Me moria 723.4 07-02 08:22:00 l 724.4 / 00:00: [place] 723.4 00 Active 07/02/2013 [facility] 793.80 Diagnosis Active 2013-07-02 Mem oria ABNORMAL 06-03 16:22:00 l MAMMOGRAM 793.80 00:00: Adela nn ABNORMAL 00 MAMMOGRAM Active 06/03/2013 [facility] GE Diagnosis Active 2012-12-27 Mem oria JUNCTION 12-24 16:27:00 l MASS GE 00:00: [place] JUNCTION 00 MASS Active 12/24/2012 [facility] 686.50,793 Diagnosis Active 2012-12-26 Memoria .80, 12-05 15:44:00 l ABNORMAL 00:00: [place] MAMMOGRAM 686.50,793 00 .80, ABNORMAL MAMMOGRAM Active 12/05/2012 [facility] Dehydratio Problem Active 2012-12-29 M emoria n 02-03 21:27:52 l 00:00: [place] Dehydratio 00 n Active 02/03/2010 Problem 12/29/2012 [facility] Weakness Problem Active 2012-12-29 Mem oria 02-03 21:27:52 l Weakness 00:00: Obi n 00 Active 02/03/2010 Problem 12/29/2012 [facility] Dehydratio Problem Active 2020-10-30 M emoria n 02-03 01:46:47 l (disorder) 00:00: [place] Dehydratio 00 n (disorder) Active 02/03/2010 Problem 10/30/2020 [facility], [facility] Asthenia Problem Active 2020-10-30 Mem oria (finding) 02-03 01:46:47 l Asthenia 00:00: Obi n (finding) 00 Active 02/03/2010 Problem 10/30/2020 [facility] 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 02:02:34 l disorder White 00:00: [place] (disorder) blood cell 00 disorder (disorder) Active 01/21/2010 Problem 07/12/2013 [facility] Leukocytos Problem Active 2012-12-29 M emoria is 01-21 21:27:52 l 00:00: [place] Leukocytos 00 is Active 0 Problem 3 [facility] Leukocytos Problem Active 2015-01-01 M emoria is(Confirm 01-21 02:07:09 l ed) 00:00: [place] Leukocytos 00 is(Confirm ed) Active 01/21/2010 Problem 01/01/2015 [facility] Hiatal Problem Active 2012-12-29 Memor ia hernia 01-18 21:27:52 l Hiatal 00:00: [place] hernia 00 Active 01/18/2010 Problem 12/29/2012 [facility] Lloyd Problem Active 2012-12-29 Memor ia fundoplica - 21:27:52 l tion Lloyd 00:00: [place] fundoplica 00 tion Active 01/13/2010 Problem 12/29/2012 [facility] Lloyd Problem Active 2020-10-30 Memor ia fundoplica 9- 01:46:47 l tion Lloyd 00:00: [place] (procedure fundoplica 00 ) tion (procedure ) Active 01/13/2010 Problem 10/30/2020 [facility] Chest pain Problem Active 2012-12-29 M emoria 12-16 21:27:52 l Chest 00:00: [place] pain 00 Active 12/16/2009 Problem 12/29/2012 [facility] Chest pain Problem Active 2020-10-30 M emoria (finding) 12-16 01:46:47 l Chest 00:00: [place] pain 00 (finding) Active 12/16/2009 Problem 10/30/2020 [facility] No known No known Disease Unive rs active active ity of problems problems [facility] History of History of Problem Resolve [facility] Abdominal Abdominal d ity of pain, pain, [place] epigastric epigastric Ph ysici ans History of History of Problem Resolve [...] ity of pain pain [place] [facility] Cardiac Problem Active 2017-05-24 Jhonathan jaime pacemaker, 03:08:56 l device Cardiac [place] (physical pacemaker, object) device (physical object) Active Problem 05/24/2017 [facility] CA - Problem Active 2012-12-29 Memor ia Cancer of 21:27:52 l colon CA - [place] Cancer of colon Active Problem 12/29/2012 [facility] Cardiac Problem Active 2012-12-29 Jhonathan jaime pacemaker, 21:27:52 l device Cardiac [place] pacemaker, device Active Problem 12/29/2012 [facility] GERD - Problem Active 2012-12-29 Memor ia Gastro-eso 21:27:52 l phageal GERD - [place] reflux Gastro-eso disease phageal reflux disease Active Problem 12/29/2012 [facility] HTN - Problem Active 2012-12-29 Memor ia Hypertensi 21:27:52 l on HTN - [place] Hypertensi on Active Problem 3 [facility] Backache Problem Active 2020-10-30 Mem oria (finding) 01:46:47 l Backache Obi n (finding) Active Problem 10/30/2020 [facility] Malignant Problem Active 2020-10-30 Me moria tumor of 01:46:47 l colon [place] (disorder) Malignant tumor of colon (disorder) Active Problem 10/30/2020 [facility] Cardiac Problem Active 2020-10-30 Jhonathan jaime pacemaker 01:46:47 l in situ Cardiac Obi n (finding) pacemaker in situ (finding) Active Problem 10/30/2020 [facility] Fistula Problem Active 2020-10-30 Jhonathan jaime (disorder) 01:46:47 l Fistula [place] (disorder) Active Problem 10/30/2020 esophagea l gastric [facility] Gastroesop Problem Active 2020-10-30 M emoria hageal 01:46:47 l reflux [place] disease Gastroesop (disorder) hageal reflux disease (disorder) Active Problem 10/30/2020 [facility] Headache Problem Active 2020-10-30 Mem oria (finding) 01:46:47 l Headache Obi n (finding) Active Problem 10/30/2020 [facility] Hearing Problem Active 2020-10-30 Jhonathan jaime loss 01:46:47 l (finding) Hearing Herm steph loss (finding) Active Problem 10/30/2020 [facility] Hypertensi Problem Active 2020-10-30 M emoria ve 01:46:47 l disorder, [place] systemic Hypertensi arterial ve (disorder) disorder, systemic arterial (disorder) Active Problem 10/30/2020 [facility] Hyperchole Problem Active 2020-10-30 M emoria sterolemia 01:46:47 l (disorder) Obi n Hyperchole sterolemia (disorder) Active Problem 10/30/2020 [facility] On Problem Active 2020-10-30 Memor ia examinatio 01:46:47 l n - On [place] spasm/tic examinatio (context-d n - ependent spasm/tic category) (context-d ependent category) Active Problem 10/30/2020 of colon [facility] Osteoarthr Problem Active 2020-10-30 M emoria itis 01:46:47 l (disorder) Obi n Osteoarthr itis (disorder) Active Problem 10/30/2020 bilateral knees [facility] Tremor Problem Active 2020-10-30 Memor ia (finding) 01:46:47 l Tremor [place] (finding) Active Problem 10/30/2020 [facility] Essential Problem Active 2020-10-30 Me moria tremor 01:46:47 l (disorder) Obi n Essential tremor (disorder) Active Problem 10/30/2020 [facility] LEFT UPPER Diagnosis Active 2019-05-20 Memoria QUADRANT 08:51:00 l PAIN LEFT [place] UPPER QUADRANT PAIN Active [facility] DYSPHAGIA, Diagnosis Active 2019-05-20 Memoria UNSPECIFIE 08:51:00 l D [place] DYSPHAGIA, UNSPECIFIE D Active [facility] TREMOR, Diagnosis Active 2020-08-17 Me moria UNSPECIFIE 10:47:00 l D TREMOR, [place] UNSPECIFIE D Active [facility] ABL Diagnosis Active 2013-07-02 Mem oria MAMMOGRAM 16:22:00 l NOS ABL [place] MAMMOGRAM NOS Active [facility] OTHER Diagnosis Active 2012-12-27 Mem oria DSRDERS 16:27:00 l ESOPHAGUS OTHER Obi n DSRDERS ESOPHAGUS Active [facility] ORDONEZ'S Diagnosis Active 2012-12-23 Memoria ESOPHAGUS 06:09:00 l [place] ORDONEZ'S ESOPHAGUS Active [facility] LUMBOSACRA Diagnosis Active 2013-07-07 Memoria L NEURITIS 08:22:00 l NOS [place] LUMBOSACRA L NEURITIS NOS Active [facility] BRACHIAL Diagnosis Active 2013-07-07 M emoria NEURITIS 08:22:00 l NOS BRACHIAL Obi n NEURITIS NOS Active [facility] ESOPHAGEAL Diagnosis Active 2014-04-08 Memoria REFLUX 10:27:00 l [place] ESOPHAGEAL REFLUX Active [facility] DYSPHAGIA Diagnosis Active 2014-08-20 Memoria NOS 06:44:00 l [place] DYSPHAGIA NOS Active [facility] ABDMNAL Diagnosis Active 2014-05-12 Me moria PAIN 05:32:00 l EPIGASTRIC ABDMNAL Her garnett PAIN EPIGASTRIC Active [facility] ABDMNAL Diagnosis Active 2014-05-18 Me moria MASS 19:39:00 l GENERALIZE ABDMNAL Her garnett D MASS GENERALIZE D Active [facility] ESOPHAGEAL Diagnosis Active 2014-08-20 Memoria STRICTURE 06:44:00 l [place] ESOPHAGEAL STRICTURE Active [facility] 787.20 Diagnosis Active 2014-06-03 Mem oria 11:27:00 l 787.20 [place] Active [facility] URIN TRACT Diagnosis Active 2014-09-08 Memoria INFECTION 15:21:00 l NOS URIN [place] TRACT INFECTION NOS Active [facility] DIAPHRAGMA Diagnosis Active 2015-06-30 Memoria TIC HERNIA 13:22:00 l WITHOUT [place] OBSTRUCTIO DIAPHRAGMA N TIC HERNIA WITHOUT OBSTRUCTIO N Active [facility] LOCALIZED Diagnosis Active 2015-07-07 Memoria SWELLING, 09:41:00 l MASS AND [place] LUMP, LOCALIZED TRUNK SWELLING, MASS AND LUMP, TRUNK Active [facility] GENERALIZE Diagnosis Active 2015-07-07 Memoria D 09:41:00 l INTRA-ABD [place] AND PELVIC GENERALIZE SWELLIN D INTRA-ABD AND PELVIC SWELLIN Active [facility] ESOPHAGEAL Diagnosis Active 2015-07-06 Memoria OBSTRUCTIO 13:20:00 l N [place] ESOPHAGEAL OBSTRUCTIO N Active [facility] COUGH Diagnosis Active 2015-07-27 Mem oria 10:51:00 l COUGH [place] Active [facility] ANAL SPASM Diagnosis Active 2016-02-15 Memoria 07:37:00 l ANAL [place] SPASM Active [facility] GASTRO-ESO Diagnosis Active 2016-06-26 Memoria PHAGEAL 17:22:00 l REFLUX [place] DISEASE GASTRO-ESO WITHOUT PHAGEAL REFLUX DISEASE WITHOUT Active [facility] ENCNTR Diagnosis Active 2017-07-10 Mem oria SCREEN 12:01:00 l MAMMOGRAM ENCNTR Adela nn FOR SCREEN MALIGNANT MAMMOGRAM NE FOR MALIGNANT NE Active [facility] DISEASE OF Diagnosis Active 2016-06-22 Memoria STOMACH 06:56:00 l AND DISEASE [place] DUODENUM, OF STOMACH UNSPECI AND DUODENUM, UNSPECI Active [facility] FISTULA OF Diagnosis Active 2016-08-23 Memoria STOMACH 10:47:00 l AND FISTULA [place] DUODENUM OF STOMACH AND DUODENUM Active [facility] UNILATERAL Diagnosis Active 2017-03-07 Memoria PRIMARY 21:55:00 l OSTEOARTHR Obi n ITIS, UNILATERAL RIGHT PRIMARY OSTEOARTHR ITIS, RIGHT Active [facility] AGE-RELATE Diagnosis Active 2017-05-21 Memoria D 11:14:00 l OSTEOPOROS Obi n IS W/O AGE-RELATE CURRENT D PAT OSTEOPOROS IS W/O CURRENT PAT Active [facility] PAIN IN Diagnosis Active 2017-08-01 Me moria RIGHT KNEE 12:42:00 l PAIN IN [place] RIGHT KNEE Active [facility] PRESENCE Diagnosis Active 2017-08-01 M emoria OF RIGHT 12:42:00 l ARTIFICIAL PRESENCE He rmann KNEE JOINT OF RIGHT ARTIFICIAL KNEE JOINT Active [facility] OTHER Diagnosis Active 2017-11-29 Mem oria CHEST PAIN 10:58:00 l OTHER [place] CHEST PAIN Active [facility] Presence Problem 2017-11-07 Mem oria of right 16:05:01 l artificial Presence He rmann knee joint of right artificial knee joint 11/07/2017 [facility] Other Problem 2017-08-27 Memor ia specified 22:14:42 l disorders Other Obi n of bone specified density disorders and of bone structure, density other site and structure, other site 08/27/2017 [facility] SCREEN Diagnosis Active 2014-12-29 Mem oria MAMMOGRAM 07:44:00 l NEC SCREEN [place] MAMMOGRAM NEC Active [facility] Final: Problem 2016-03-31 Memor ia Encounter 01:34:27 l for Final: [place] screening Encounter mammogram for for screening malignant mammogram neoplasm for of breast malignant neoplasm of breast 03/31/2016 [facility] Cancer of Problem Resolve 2012-12-29 M emoria colon d 21:27:52 l Cancer [place] of colon Resolved Problem 12/29/2012 [facility] Hypertensi Problem Resolve 2012-12-29 Memoria on d 21:27:52 l [place] Hypertensi on Resolved Problem 12/29/2012 [facility] Acid Problem Resolve 2020-10-30 Jhonathan jaime reflux d 01:46:47 l (finding) Acid [place] reflux (finding) Resolved Problem 10/30/2020 [facility] Ordonez's Problem Resolve 2020-10-30 M emoria esophagus d 01:46:47 l (disorder) Obi n Ordonez's esophagus (disorder) Resolved Problem 10/30/2020 [facility] Dysphagia Problem Resolve 2020-10-30 M emoria (disorder) d 01:46:47 l [place] Dysphagia (disorder) Res[facility] History of Problem Resolve 2020-10-30 Memoria sick sinus d 01:46:47 l syndrome History Adela nn (situation of sick ) sinus syndrome (situation ) Resolved Problem 10/30/2020 [facility] Left sided Left sided Problem Active C [...] Problem Resolve 2020-10-30 2020-10-30 Memoria is(Confirm d 9-10 01:46:47 01:46:47 l ed) 00:00: [place] Leukocytos 00 is(Confirm ed) Resolved 01/21/2010 Problem 10/30/2020 [facility] Diaphragma Problem Resolve 2020-10-302020-10-30 Memoria tic hernia d 01-18 01:46:47 01:46:47 l (disorder) 00:00: Obi n Diaphragma 00 tic hernia (disorder) Resolved 01/18/2010 Problem 10/30/2020 [facility] History of Past Illness Condition Condition Condition Status Onset Resolution Last Treating Co mments Source Name Details Category Date Date Treatment Clinician Date Other Problem 2018-06-18 2018-06-18 M emoria chest pain 12-05 16:03:53 16:03:53 l Other 03:22: [place] chest pain 37 12/05/2017 06/18/2018 [facility] Pain in Problem 2017-11-07 2017-11-07 Memoria right knee 08-08 16:05:01 16:05:01 l Pain in 03:16: [place] right knee 49 08/08/2017 11/07/2017 [facility] Encounter Problem 2017-10-16 2017-10-16 Memoria for 07-17 11:59:21 11:59:21 l screening 04:15: [place] mammogram Encounter 43 for for malignant screening neoplasm mammogram of breast for malignant neoplasm of breast 07/17/2017 10/16/2017 [facility] Age-relate Problem 2017-08-27 2017-08-27 Memoria d -12 22:14:42 22:14:42 l osteoporos 04:24: Obi n is without Age-relate 42 current d pathologic osteoporos al is without fracture current pathologic al fracture 8 08/27/2017 [facility] Discharge Problem 2013-07-12 2013-07-12 Memoria Diagnosis: 2- 02:02:34 02:02:34 l Spinal 06:00: [place] headache Discharge 00 Diagnosis: Spinal headache 4 07/12/2013 [facility] Discharge Problem 2013-07-12 2013-07-12 Memoria Diagnosis: 2- 02:02:34 02:02:34 l Spinal 06:00: [place] Blood Discharge 00 Patch Diagnosis: Spinal Blood Patch 07/09/2013 07/12/2013 [facility] Allergies, Adverse Reactions, Alerts Allergy Allergy [...] HYDROCOD DRUG Active Unknown-Cmnt Un kvng ONE-ACET 805 ity of AMINOPHE 00:00: [place] N 00 [facility] IODINATE Drug Active Unknown-Cmnt Un kvng D Class 8-05 ity of CONTRAST 00:00: [place] MEDIA 00 Medical [facility] Acetamin Propensi Active Other - See 2017-05 U nivers ophen-Co ty to comments 30 ity of deine adverse 00:00: [place] reaction 00 Medical s Branch ACETAMIN DRUG Active Med Other-Cmnt 2017-05 Univ ers OPHEN-CO 1-30 ity of DEINE 00:00: [place] 00 [facility] Iodinate drug Active Univers d allergy ity of Contrast [place] [facility] Vicodin drug Active Univers TABS allergy ity of [place] [facility] Iodine allergy Active Univers to ity of substanc [place] [facility] Contrast Contrast Active Memori a Media Media l Ready-Ian Ready-Ian Obi n x MISC x MISC Vicodin Vicodin Active Memoria TABS TABS l [place] iodinate iodinate Active Memori a d d l radiocon radiocon Obi n trast trast dyes dyes Vicodin Vicodin Active Memoria l [place] Vicodin Adverse Active Info Not [facility] Reaction Available [facility] contrast Adverse Active Info Not [facility] dye Reaction Available [facility] Contrast drug Active Univers Media allergy ity of Ready-Ian [place] x MISC Physici ans Iodex drug Active Univers OINT allergy ity of [place] [facility] Family History Family Member Diagnosis Comments Start Date Stop Date Source Father Family history of [facility] [place] [facility] Social History Social Habit Start Date Stop Date Quantity Comments Source Exposure to Not sure [facility] SARS-CoV-2 (event) Medica l Branch Tobacco use and 2019-05-16 2019-05-16 Never used [facility] exposure 00:00:00 00:00:00 Medical Branch Social History 2014-04-27 2014-04-27 [facility] Darling luke 21:45:00 21:45:00 [birth year] [facility] 00:00:00 00:00:00 [facility] Smoking Status Start Date Stop Date Source Never smoker [facility] Medications Ordered Filled Start Stop Current Ordering Indication Dosage Frequency Signature Comments Components Source Medication Medication Date Date Medication? Clinician (SIG) Name Name MELOXICAM Yes [id number] TAKE 1 Un kvng 7.5 mg 1-31 TABLET ity of tablet 00:00: EVERY DAY [facility] MELOXICAM Yes [id number] TAKE 1 Un kvng 7.5 mg 1-31 TABLET ity of tablet 00:00: EVERY DAY [facility] MELOXICAM Yes [id number] TAKE 1 Un kvng 7.5 mg 1-31 TABLET ity of tablet 00:00: EVERY DAY [address] MELOXICAM 2020-05 Yes [id number] TAKE 1 Un kvng 7.5 mg 0-14 TABLET ONE ity of tablet 00:00: TIME DAILY [place] [address] NEEDED Medical FOR PAIN Branch (SCALE 4 TO 6) MELOXICAM 2020-05 Yes [id number] TAKE 1 Un kvng 7.5 mg 0-14 TABLET ONE ity of tablet 00:00: TIME DAILY [place] [address] NEEDED Medical FOR PAIN Branch (SCALE 4 TO 6) MELOXICAM 2020-05 Yes [id number] TAKE 1 Un kvng 7.5 mg 0-14 TABLET ONE ity of tablet 00:00: TIME DAILY [place] [address] NEEDED Medical FOR PAIN Branch (SCALE 4 TO 6) amLODIPine Yes amlodipine U nivers 5 mg tablet 8-20 5 mg ity of 10:18: tablet [address] omeprazole Yes omeprazole U nivers 40 mg 8-20 40 mg ity of capsule 10:18: capsule,Kumari s layed [facility] aspirin 81 Yes 81mg Take 81 mg U nivers mg chewable 8-20 by mouth ity of tablet 10:18: daily. [address] amLODIPine Yes amlodipine U nivers 5 mg tablet 8-20 5 mg ity of 10:18: tablet [address] omeprazole Yes omeprazole U nivers 40 mg 8-20 40 mg ity of capsule 10:18: capsule,de Otilioa s [address] [place] [address] aspirin 81 Yes 81mg Take 81 mg U nivers mg chewable 8-20 by mouth ity of tablet 10:18: daily. [address] amLODIPine Yes amlodipine U nivers 5 mg tablet 8-20 5 mg ity of 10:18: tablet [address] omeprazole Yes omeprazole U nivers 40 mg 8-20 40 mg ity of capsule 10:18: capsule,Kumari s [address] [place] [address] aspirin 81 Yes 81mg Take 81 mg U nivers mg chewable 8-20 by mouth ity of tablet 10:18: daily. [address] primidone Yes 50 mg = 1 Mem oria 50 mg oral 6-16 tab, PO, l tablet 16:25: BID, # 180 Adela nn 00 tab, 1 Refill(s), Pharmacy: [facility], 149.86, cm, 10/27/20 11:15:00 CDT, Height, 60, kg, 10/27/20 11:15:00 CDT, Weight primidone Yes 50 mg = 1 Mem oria 50 mg oral 6-16 tab, PO, l tablet 16:25: BID, # 180 Adela nn 00 tab, 1 Refill(s), Pharmacy: [facility], 149.86, cm, 10/27/20 11:15:00 CDT, Height, 60, kg, 10/27/20 11:15:00 CDT, Weight primidone 0 Yes 50 mg = 1 Mem oria 50 mg oral 6-16 tab, PO, l tablet 16:25: BID, # 180 Adela nn 00 tab, 1 Refill(s), Pharmacy: [facility], 149.86, cm, 10/27/20 11:15:00 CDT, Height, 60, kg, 10/27/20 11:15:00 CDT, Weight cyclobenzap 1-0 Yes 0 Memori a rine 5 mg 6-16 Refill(s) l oral tablet 16:16: Obi n 00 cyclobenzap 1-0 Yes 0 Memori a rine 5 mg 6-16 Refill(s) l oral tablet 16:16: Obi n 00 cyclobenzap 2021-0 Yes 0 Memori a rine 5 mg 6-16 Refill(s) l oral tablet 16:16: Obi n 00 primidone 1-0 Yes 50 mg = 1 Mem oria 50 mg oral 4-16 tab, PO, l tablet 16:57: Bedtime, # Adela nn 00 30 tab, 3 Refill(s), Pharmacy: [facility], 144.78, cm, 06/25/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, Height, 59.545, kg, 08/27/20 11:40:00 CDT, Weight primidone 1-0 Yes 50 mg = 1 Mem oria 50 mg oral 4-16 tab, PO, l tablet 16:57: Bedtime, # Adela nn 00 30 tab, 3 Refill(s), Pharmacy: [facility], 144.78, cm, 06/25/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, Height, 59.545, kg, 08/27/20 11:40:00 CDT, Weight primidone 1-0 Yes 50 mg = 1 Mem oria 50 mg oral 4-16 tab, PO, l tablet 16:57: Bedtime, # Adela nn 00 30 tab, 3 Refill(s), Pharmacy: [facility] 482, 144.78, cm, 06/25/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, Height, 59.545, kg, 08/27/20 11:40:00 CDT, Weight topiramate 1-0 Yes 25 mg = 1 Me moria 25 MG Oral 2-13 tab, PO, l Tablet 00:28: Bedtime, # Adela nn [Topamax] 00 30 tab, 2 Refill(s), Pharmacy: [facility] 482, 144.78, cm, 06/25/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, Height, 60.909, kg, 06/25/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, Weight topiramate 2020-0 Yes 25 mg = 1 Me moria 25 MG Oral 2-13 tab, PO, l Tablet 00:28: Bedtime, # Adela nn [Topamax] 00 30 tab, 2 Refill(s), Pharmacy: [facility] 482, 144.78, cm, 06/25/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, Height, 60.909, kg, 06/25/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, Weight topiramate 2020-0 Yes 25 mg = 1 Me moria 25 MG Oral 2-13 tab, PO, l Tablet 00:28: Bedtime, # Adela nn [Topamax] 00 30 tab, 2 Refill(s), Pharmacy: [facility] 482, 144.78, cm, 06/25/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, Height, 60.909, kg, 06/25/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, Weight Protonix 2020-0 Yes 40 mg, PO, Mem oria 2-12 Daily, # l 20:31: 30 tab, 0 [place] 00 Refill(s) Clonidine 2020-0 Yes 0.1 mg, Memor ia 2-12 PO, PRN, 0 l 20:31: Refill(s) [place] 00 Protonix 2020-0 Yes 40 mg, PO, Mem oria 2-12 Daily, # l 20:31: 30 tab, 0 [place] 00 Refill(s) Clonidine 2020-0 Yes 0.1 mg, Memor ia 2-12 PO, PRN, 0 l 20:31: Refill(s) [place] Protonix 2020-0 Yes 40 mg, PO, Mem oria 2-12 Daily, # l 20:31: 30 tab, 0 [place] 00 Refill(s) Clonidine 2020-0 Yes 0.1 mg, Memor ia 2-12 PO, PRN, 0 l 20:31: Refill(s) [place] levothyroxi 2018-05 Yes TAKE 1 [facility] 25 mcg 2-11 TABLET BY ity o f tablet 00:00: MOUTH [place] 00 EVERY Medical MORNING Branch WITH WATER AND ON AN EMPTY STOMACH levothyroxi 2018-05 Yes TAKE 1 [facility] 25 mcg 2-11 TABLET BY ity o f tablet 00:00: MOUTH [place] EVERY Medical MORNING Branch WITH WATER AND ON AN EMPTY STOMACH levothyroxi 2018-05 Yes TAKE 1 [facility] 25 mcg 2-11 TABLET BY ity o f tablet 00:00: MOUTH [place] EVERY Medical MORNING Branch WITH WATER AND ON AN EMPTY STOMACH Sodium 2018-05 No 1,000 mL, Memori a Chloride 1-26 Rate: 75 l 0.9% IV 17:26: ml/hr, [place] 1000 mL 00 Infuse over: 13.3 hr, Route: IV, Dosing Weight 62.045 kg, Total Volume: 1,000, Start date: 04/08/19 11:26:00 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, Duration: 30 day, Stop date: 05/08/19 11:25:00 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, 1.65, m2 Sodium 2018-05 No 1,000 mL, Memori a Chloride 1-26 Rate: 75 l 0.9% IV 17:26: ml/hr, [place] 1000 mL 00 Infuse over: 13.3 hr, Route: IV, Dosing Weight 62.045 kg, Total Volume: 1,000, Start date: 04/08/19 11:26:00 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, Duration: 30 day, Stop date: 05/08/19 11:25:00 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, 1.65, m2 Sodium 2018-05 No 1,000 mL, Memori a Chloride 1-26 Rate: 75 l 0.9% IV 17:26: ml/hr, [place] 1000 mL 00 Infuse over: 13.3 hr, Route: IV, Dosing Weight 62.045 kg, Total Volume: 1,000, Start date: 04/08/19 11:26:00 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, Duration: 30 day, Stop date: 05/08/19 11:25:00 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, 1.65, m2 levothyroxi 2018-05 Yes 25 Memori [...] [address] [facility] Atorvast[facility] Atorvastati 01-[address] [place] [address] [facility] - n n 00:00: Memoria 00 [facility] Omeprazole Omeprazole Yes Gaudencio [address] [facility] 01-30 [facility] - 00:00: Memoria 00 [facility] Pantoprazol Pantoprazol Yes JOANNE 1 QD TAKE [...] pain, # 20 tab, 0 Refill(s) tramadol 2018-0 Yes 50 mg = 1 Jhonathan jaime hydrochlori 7-12 tab, PO, l de 50 MG 19:38: Q6H, PRN Adela nn Oral Tablet 00 pain, # 20 tab, 0 Refill(s) succinylcho 2018-0 No Route: IV, Memoria line (ANES) 11-22 Drug form: l 19:27: INJ, ONCE, Stop date: 11/22/17 14:27:00 CDT lidocaine 2017-0 No Route: IV, Me moria (ANES) 11-22 Drug form: l 19:27: INJ, ONCE, Stop date: 11/22/17 14:27:00 CDT rocuronium 2017-0 No Route: IV, M emoria (ANES) 11-22 Drug form: l 19:27: INJ, ONCE, Stop date: 11/22/17 14:27:00 CDT fentaNYL 2018-0 No Route: IV, Mem oria (ANES) 11-22 Drug form: l 19:27: INJ, ONCE, Stop date: 11/22/17 14:27:00 CDT propofol 2018-0 No Route: IV, Mem oria (ANES) 11-22 Drug form: l 19:27: INJ, ONCE, Stop date: 11/22/17 14:27:00 CDT succinylcho 2017-0 No Route: IV, Memoria line (ANES) 11-22 Drug form: l 19:27: INJ, ONCE, Stop date: 11/22/17 14:27:00 CDT lidocaine 2017-0 No Route: IV, Me moria (ANES) 11-22 Drug form: l 19:27: INJ, ONCE, Stop date: 11/22/17 14:27:00 CDT rocuronium 2018-0 No Route: IV, M emoria (ANES) - Drug form: l 19:27: INJ, ONCE, Stop date: 11/22/17 14:27:00 CDT fentaNYL 2018-0 No Route: IV, Mem oria (ANES) 11-22 [...] ONCE, Stop date: 11/22/17 14:27:00 CDT ceFAZolin 0 No Route: IV, Me moria (ANES) - Drug form: l 19:22: INJ, ONCE, Stop date: 11/22/17 14:22:00 CDT ceFAZolin 2017-0 No Route: IV, Me moria (ANES) 11-22 Drug form: l 19:22: INJ, ONCE, Stop date: 11/22/17 14:22:00 CDT ceFAZolin 2018-0 No Route: IV, Me moria (ANES) - Drug form: l 19:22: INJ, ONCE, Stop date: 11/22/17 14:22:00 CDT Lactated 2017-0 No Route: IV, Mem oria Ringers - Total l Injection 18:28: Volume: Adela nn [...] Notes: Memoria 7-12 porcine l 05:00: heparin [place] 00 scopolamine No Notes: Jhonathan jaime 7-12 Change l 05:00: patch [place] 00 every 72 hours (Same as: Transderm- [...] Jhonathan jaime 7-12 Change l 05:00: patch [place] 00 every 72 hours (Same as: Transderm- Scop) ceFAZolin + No Notes: Jhonathan jaime sterile 7-12 (Same As: l water 20 mL 05:00: Ancef, Herm steph 00 Kefzol) MEDICATION WASTE Product Size: 1000 mg Product Wasted: ___ mg remove No Notes: Memoria patch -12 Remove old l 05:00: patch [place] 00 before applicatio n of new patch. Ofirmev No Notes: Memoria 7-12 Infuse l 05:00: over 15 [place] 00 minutes Do not exceed 4gm/day of acetaminop hen MEDICATION WASTE Product Size: 1000 mg Product Wasted: ___ mg heparin No Notes: Memoria 7-12 porcine l 05:00: heparin [place] 00 scopolamine No Notes: Jhonathan jaime 7-12 Change l 05:00: patch [place] 00 every 72 hours (Same as: Transderm- Scop) ceFAZolin + No Notes: Jhonathan jaime sterile -12 (Same As: l water 20 mL 05:00: Ancef, Herm steph 00 Kefzol) MEDICATION WASTE Product Size: 1000 mg Product Wasted: ___ mg Aspirin 81 2018 Yes 81 mg = 1 Me moria MG Enteric 7-10 tab, PO, l Coated 18:02: Daily, # [place] Tablet 00 90 tab, 3 Refill(s) Aspirin 81 Yes 81 mg = 1 Me moria MG Enteric 7-10 tab, PO, l Coated 18:02: Daily, # [place] Tablet 00 90 tab, 3 Refill(s) Aspirin 81 2018- Yes 81 mg = 1 Me moria MG Enteric 7-10 tab, PO, l Coated 18:02: Daily, # [place] Tablet 00 90 tab, 3 Refill(s) Hemocyte 2016-05 No Notes: Memoria Plus 0-20 Same as l 14:00: Iron/C/B12 [place] 00 /FA/SA Hemocyte 2016-05 No Notes: Memoria Plus 0-20 Same as l 14:00: Iron/C/B12 [place] 00 // Hemocyte 2016-05 No Notes: Memoria Plus 0-20 Same as l 14:00: Iron/C/B12 [place] 00 // Acetaminoph 2016-05 Yes 1 - 2 tab, [...] tab, PO, l tablet 15:54: Daily, 0 [place] 00 Refill(s) amLODIPine 2016-05 Yes 5 mg [...] Duration: 30 day, Stop date: 03/31/17 8:34:00 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 Acetaminoph 2017- No 1 tab, Jhonathan jaime en 325 MG / 0-19 Route: PO, l Oxycodone 13:35: Drug Form: Elvin robertson Hydrochlori 00 TAB, de 5 MG Dosing Oral Tablet Weight [Percocet 57.864, 5/325] kg, Q4H, PRN Pain Score 1-3, Start date: 03/01/17 8:35:00 CDT, Duration: 30 day, Stop date: 03/31/17 8:34:00 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 Acetaminoph 2016- No 1 tab, Jhonathan jaime en 325 MG / 0-19 Route: PO, l Oxycodone 13:35: Drug Form: [place]vin rober[place] Hydrochlori 00 TAB, de 5 MG Dosing Oral Tablet Weight [Percocet 57.864, 5/325] kg, Q4H, PRN Pain Score 1-3, Start date: 03/01/17 8:35:00 CDT, Duration: 30 day, Stop date: 03/31/17 8:34:00 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 Omeprazole 2017-1 No 20 mg, Memor ia 0-18 Route: PO, l 22:00: Drug form: [place] 00 ECTAB, BID, Dosing Weight 57.864, kg, Start date: 02/28/17 17:00:00 CDT, Duration: 30 day, Stop date: 03/30/17 9:00:00 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 Omeprazole 2017-1 No 20 mg, Memor ia 0-18 Route: PO, l 22:00: Drug form: [place] 00 ECTAB, BID, Dosing Weight 57.864, kg, Start date: 02/28/17 17:00:00 CDT, Duration: 30 day, Stop date: 03/30/17 9:00:00 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 Omeprazole 2017-1 No 20 mg, Memor ia 0-18 Route: PO, l 22:00: Drug form: [place] 00 ECTAB, BID, Dosing Weight 57.864, kg, Start date: 02/28/17 17:00:00 CDT, Duration: 30 day, Stop date: 03/30/17 9:00:00 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 Protonix 2016-05 No Notes: Memoria 0-18 Tablet l 21:30: should not [place] 00 be chewed or crushed. (Same as: Protonix) Protonix 2016-05 No Notes: Memoria 0-18 Tablet l 21:30: should not [place] 00 be chewed or crushed. (Same as: Protonix) Protonix 2016-05 No Notes: Memoria 0-18 Tablet l 21:30: should not [place] 00 be chewed or crushed. (Same as: [...] / 0-18 Same as l Hydrocodone 13:34: [place] Adela nn Bitartrate 00 325-7.5mg 7.5 MG Oral Do not Tablet exceed [[place] 4gm/day of 7.5/325] acetaminop hen. Acetaminoph 2016-05 No Notes: Jhonathan jaime en 325 MG / 0-18 Same as l Hydrocodone 13:34: [place] Adela nn Bitartrate 00 325-7.5mg 7.5 MG Oral Do not Tablet exceed [[place] 4gm/day of 7.5/325] acetaminop hen. Acetaminoph 2016-05 No Notes: Jhonathan jaime en 325 MG / 0-18 Same as l Hydrocodone 13:34: [place] Adela nn Bitartrate 00 325-7.5mg 7.5 MG Oral Do not Tablet exceed [[place] 4gm/day of 7.5/325] acetaminop hen. Enoxaparin 2016-05 No Notes: Memor ia 0-18 (Same as: l 04:00: Lovenox) [place] Enoxaparin 2016-05 No Notes: Memor ia 0-18 (Same as: l 04:00: Lovenox) [place] Enoxaparin 2016-05 No Notes: Memor ia 0-18 (Same as: l 04:00: Lovenox) [place] ceFAZolin 2016-05 No 1 gm, 100 Mem oria (SCIP) 0-18 mL, Route: l 03:00: IVPB, Drug [place] 00 form: INJ, Q6H, Dosing Weight 57.864, [...] 0-18 mL, Route: l 03:00: IVPB, Drug [place] 00 form: INJ, Q6H, Dosing Weight 57.864, kg, Start date: 02/27/17 22:00:00 CDT, Duration: 3 doses or times, Stop date: 02/28/17 10:00:00 CDT, ABX Indication : Surgical Prophylaxi s esta 2016-05 No 3 mg, Memoria 0-18 Route: PO, l 02:00: Bedtime, [place] 00 Dosing Weight 57.864, kg, Start date: 02/27/17 21:00:00 CDT, Duration: 30 day, Stop date: 03/28/17 21:00:00 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 Lunesta 2016-05 No 3 mg, Memoria 0-18 Route: PO, l 02:00: Bedtime, Dosing Weight 57.864, kg, Start date: 02/27/17 21:00:00 CDT, Duration: 30 day, Stop date: 03/28/17 21:00:00 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 esta 2016-05 No 3 mg, Memoria 0-18 Route: PO, l 02:00: Bedtime, Dosing Weight 57.864, kg, Start date: 02/27/17 21:00:00 CDT, Duration: 30 day, Stop date: 03/28/17 21:00:00 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 zolpidem 2016-05 No Notes: Memoria 0-17 (Same As: l 22:51: Ambien) [place] zolpidem 2016-05 No Notes: Memoria 0-17 (Same As: l 22:51: Ambien) [place] 00 zolpidem 2016-05 No Notes: Memoria 0-17 (Same As: l 22:51: Ambien) [place] 00 Docusate 2016-05 No Notes: Memoria 0-17 (Same as: l 22:00: Colace) [place] (Do Not Crush) Docusate 2016-05 No Notes: Memoria 0-17 (Same as: l 22:00: Colace) [place] (Do Not Crush) Docusate 2016-05 No Notes: Memoria 0-17 (Same as: l 22:00: Colace) [place] (Do Not Crush) Naloxone 2016-05 No 0.4 [...] Duration: 30 day, Stop date: 03/29/17 11:07:00 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 Hydromorpho 2016-05 No 0.5 mg, Mem oria ne 0-17 Route: l 17:08: IVP, [place] 00 Q5Min, Dosing Weight 57.864, kg, PRN Pain Score 7-10, Start date: 02/27/17 12:08:00 CDT, Duration: 4 doses or times, Stop date: Limited # of times Fentanyl 2016-05 No 25 Memoria 0-17 microgram, l 17:08: Route: [place] 00 IVP, Q5Min, Dosing Weight 57.864, kg, [...] ia 0-17 Route: l 17:08: IVP, ONCE, [place] 00 Dosing Weight 57.864, kg, PRN Nausea [...] Duration: 30 day, Stop date: 03/29/17 11:07:00 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 Hydromorpho 2016-05 No 0.5 mg, Mem oria [...] moria e 0-17 Route: l 17:08: IVPB, [place] 00 ONCE, Dosing Weight 57.864, kg, PRN Nausea & Vomiting, Start date: 02/27/17 12:08:00 CDT Ondansetron 2016-05 No 4 mg, Memor ia 0-17 Route: l 17:08: IVP, ONCE, [place] 00 Dosing Weight 57.864, kg, PRN Nausea [...] jaime 0-17 Route: l 17:08: IVP, PRN, [place] 00 Dosing Weight 57.864, kg, PRN Benzodiaze pine Reversal, Initial dose, Start date: 02/27/17 12:08:00 CDT, Duration: 30 day, Stop date: 03/29/17 11:07:00 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 Hydromorpho 2016-05 No 0.5 mg, Mem oria ne 0-17 Route: l 17:08: IVP, [place] 00 Q5Min, Dosing Weight 57.864, kg, PRN Pain Score 7-10, Start date: 02/27/17 12:08:00 CDT, Duration: 4 doses or times, Stop date: Limited # of times Fentanyl 2016-05 No 25 Memoria 0-17 microgram, l 17:08: Route: [place] 00 IVP, Q5Min, Dosing Weight 57.864, kg, PRN Pain Score 4-6, Priority: Routine, Start date: 02/27/17 12:08:00 CDT, Duration: 4 doses or times, Stop date: Limited # of times Promethazin 2016-05 No 6.25 mg, Me moria e 0-17 Route: l 17:08: IVPB, [place] 00 ONCE, Dosing Weight 57.864, kg, PRN Nausea & Vomiting, Start date: 02/27/17 12:08:00 CDT Ondansetron 2016-05 No 4 mg, Memor ia 0-17 Route: l 17:08: IVP, ONCE, [place] 00 Dosing Weight 57.864, kg, PRN Nausea & Vomiting, Start date: 02/27/17 12:08:00 CDT Cefazolin 2016-05 No 1 gm, Memoria 0-17 Route: l 17:00: IVPB, Drug [place] 00 form: INJ, Q6H, Dosing Weight 57.864, [...] Memor ia 0-17 Route: l 16:00: SUB-Q, [place] 00 Drug form: INJ, [id number], Dosing Weight 57.864, kg, Start date: 02/27/17 11:00:00 CDT, Duration: 30 day, Stop date: 03/28/17 23:00:00 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 Enoxaparin 2016-05 No 30 mg, Memor ia 0-17 Route: l 16:00: SUB-Q, Drug form: INJ, [id number], Dosing Weight 57.864, kg, Start date: 02/27/17 11:00:00 CDT, Duration: 30 day, Stop date: 03/28/17 23:00:00 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 Enoxaparin 2016-05 No 30 mg, Memor ia 0-17 Route: l 16:00: SUB-Q, Drug form: INJ, [id number], Dosing Weight 57.864, kg, Start date: 02/27/17 11:00:00 CDT, Duration: 30 day, Stop date: 03/28/17 23:00:00 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 glycopyrrol 2016-05 No Route: IV, Memoria ate [...] Duration: 30 day, Stop date: 03/29/17 10:42:00 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 Diphenhydra 2016-05 No 12.5 mg, Me moria mine 0-17 0.5 tab, l 15:43: Route: PO, Drug form: TAB, Q6H, Dosing Weight 57.864, kg, PRN Itching, Start date: 02/27/17 10:43:00 CDT, Duration: 30 day, Stop date: 03/29/17 10:42:00 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 Al 2016-05 No Notes: Memoria hydroxide/M 0-17 (aluminum l g 15:43: hydroxide- [place] hydroxide/s 00 magnesium imethicone hyd-simeth 200 mg-200 [...] Duration: 30 day, Stop date: 03/29/17 10:42:00 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 Hydromorpho 2016-05 No 0.3 mg, Mem oria ne 0-17 0.3 mL, l 15:43: Route: IVP, Drug form: INJ, Q4H, Dosing Weight 57.864, kg, PRN Pain Score 7-10, Start date: 02/27/17 10:43:00 CDT, Duration: 30 day, Stop date: 03/29/17 10:42:00 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 Diphenhydra 2016-05 No 12.5 mg, Me moria mine 0-17 0.5 tab, l 15:43: Route: PO, Drug form: TAB, Q6H, Dosing Weight 57.864, kg, PRN Itching, Start date: 02/27/17 10:43:00 CDT, Duration: 30 day, Stop date: 03/29/17 10:42:00 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 Al 2016-05 No Notes: Memoria hydroxide/M 0-17 (aluminum l g 15:43: hydroxide- [place] hydroxide/s 00 magnesium imethicone hyd-simeth 200 mg-200 [...] Duration: 30 day, Stop date: 03/29/17 10:42:00 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 Hydromorpho 2016-05 No 0.3 mg, Mem oria ne 0-17 0.3 mL, l 15:43: Route: [place] 00 IVP, Drug form: INJ, Q4H, Dosing Weight 57.864, kg, PRN Pain Score 7-10, Start date: 02/27/17 10:43:00 CDT, Duration: 30 day, Stop date: 03/29/17 10:42:00 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 Diphenhydra 2016-05 No 12.5 mg, Me moria mine 0-17 0.5 tab, l 15:43: Route: PO, Drug form: TAB, Q6H, Dosing Weight 57.864, kg, PRN Itching, Start date: 02/27/17 10:43:00 CDT, Duration: 30 day, Stop date: 03/29/17 10:42:00 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 Al 2016-05 No Notes: Memoria hydroxide/M 0-17 [...] Duration: 30 day, Stop date: 03/29/17 10:42:00 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 dexamethaso 2016-05 No Route: IV, Memoria ne [...] [place] 00 Stop date: 02/27/17 10:09:00 CDT propofol 2016-05 No Route: IV, Mem oria (ANES) 0-17 Drug form: l 15:09: INJ, ONCE, [place] 00 Stop date: 02/27/17 10:09:00 CDT rocuronium 2016-05 No Route: IV, M emoria (ANES) 0-17 Drug form: l 15:09: INJ, ONCE, [place] 00 Stop date: 02/27/17 10:09:00 CDT acetaminoph 2016-05 No Route: IV, Memoria en (ANES) 0-17 Drug form: l 15:09: INJ, ONCE, Stop date: 02/27/17 10:09:00 CDT ceFAZolin 2016-05 No Route: IV, Me moria (ANES) 0-17 Drug form: l 15:09: INJ, ONCE, [place] 00 Stop date: 02/27/17 10:09:00 CDT lidocaine 2016-05 No Route: IV, Me moria (ANES) 0-17 Drug form: l 15:09: INJ, ONCE, Stop date: 02/27/17 10:09:00 CDT propofol 2016-05 No Route: IV, Mem oria (ANES) 0-17 Drug form: l 15:09: INJ, ONCE, [place] 00 Stop date: 02/27/17 10:09:00 CDT hydromorpho 2016-05 No Route: Jhonathan jaime ne (ANES) 0-17 INTRATHECA l 14:54: L, Drug [place] 00 form: INJ, ONCE, Stop date: 02/27/17 [...] INJ (ANES) 0-17 Total l 14:18: Volume: [place] 00 1,000, Start date: 02/27/17 9:18:00 CDT, [...] Duration: 30 day, Stop date: 03/29/17 8: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 Calcium 2016-05 No 1,000 mL, Memor ia Chloride 0-17 Rate: 25 l 0.0014 13:24: ml/hr, [place] MEQ/ML / 00 Infuse Potassium over: 40 Chloride hr, Route: 0.004 IV, Dosing MEQ/ML / Weight Sodium 57.864 kg, Chloride Total 0.103 Volume: MEQ/ML / 1,000, Sodium Start Lactate date: 0.028 02/27/17 MEQ/ML 8:24:00 Injectable CDT, Solution Duration: 30 day, Stop date: 03/29/17 8: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 Calcium 2016-05 No 1,000 mL, Memor ia Chloride 0-17 Rate: 25 l 0.0014 13:24: ml/hr, [place] MEQ/ML / 00 Infuse Potassium over: 40 Chloride hr, Route: 0.004 IV, Dosing MEQ/ML / Weight Sodium 57.864 kg, Chloride Total 0.103 Volume: MEQ/ML / 1,000, Sodium Start Lactate date: 0.028 02/27/17 MEQ/ML 8:24:00 Injectable CDT, Solution Duration: 30 day, Stop date: 03/29/17 8: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 ropivacaine 2017- No Notes: Memoria 0-17 NOT [...] Duration: 30 day, Stop date: 03/29/17 6:59:00 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 celecoxib 2016- No 90 Memoria 0-17 mL/min), l 13:00: Start date: 02/27/17 8:00:00 CDT, Duration: 30 day, Stop date: 03/29/17 6:59:00 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 ropivacaine 2017- No Notes: Memoria 0-17 NOT [...] Duration: 30 day, Stop date: 03/29/17 6:59:00 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 celecoxib 2016-05 No 90 Memoria 0-17 mL/min), l 13:00: Start date: 02/27/17 8:00:00 CDT, Duration: 30 day, Stop date: 03/29/17 6:59:00 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 ropivacaine 2016-05 No Notes: Memoria 0-17 NOT [...] Duration: 30 day, Stop date: 03/29/17 6:59:00 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 celecoxib 2016-05 No 90 Memoria 0-17 mL/min), l 13:00: Start date: 02/27/17 8:00:00 CDT, Duration: 30 day, Stop date: 03/29/17 6:59:00 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 0.3 ML 2016-05 Yes 30 mg, Memoria Enoxaparin 0-17 SUB-Q, l sodium 100 11:05: Q12H, X 14 H ermann MG/ML , # 28 Prefilled inj, 0 Syringe Refill(s) [...] 0.833 MG/ML 0-04 (Same as: 43: Duoneb) [place] Ipratropium 00 Given 0.167 MG/ML Inhalant Solution sodium 2016-05 No [...] 0.833 MG/ML 0-04 (Same as: 43: Duoneb) [place] Ipratropium 00 Given 0.167 MG/ML Inhalant Solution sodium 2016-05 No [...] 0.833 MG/ML 0-04 (Same as: 43: Duoneb) [place] Ipratropium 00 Given 0.167 MG/ML Inhalant Solution sodium 2016-05 No 500 mL, Memoria chloride 0-04 Rate: 25 l 0.9% 500 ml 17:43: ml/hr, Herm steph INJ 500 mL 00 Infuse over: 20 hr, Route: IV, Dosing Weight 59.545 kg, Total Volume: 500, Start date: 02/14/17 12:43:00 CDT, Duration: 1 day, Stop date: 02/15/17 12:42:00 CDT Zofran No Notes: Memoria 08-23 (Same as: l 19:53: Zofran) [place] MEDICATION WASTE Product Size: 4 mg Product Wasted: ___ mg Zofran No Notes: Memoria 08-23 (Same as: l 19:53: Zofran) [place] MEDICATION WASTE Product Size: 4 mg Product Wasted: ___ mg Zofran No Notes: Memoria 08-23 (Same as: l 19:53: Zofran) [place] MEDICATION WASTE Product Size: 4 mg Product Wasted: ___ mg Albuterol No 2.49 mg, Jhonathan jaime 0.83 MG/ML 08-23 Route: l Inhalant 19:49: NEB, [place] Solution 00 Q20Min, Dosing Weight 59.091, kg, PRN Wheezing, Priority: STAT, Start date: 08/23/16 14:49:00 CDT, Duration: 30 day, Stop date: 09/22/16 14:48:00 CDT Diphenhydra 2016- No 12.5 mg, Me moria mine 08-23 Route: l 19:49: IVP, Drug [place] 00 form: INJ, Q6H, Dosing Weight 59.091, kg, PRN Itching, Start date: 08/23/16 14:49:00 CDT, Duration: 30 day, Stop date: 09/22/16 14:48:00 CDT Promethazin 2016- No 6.25 mg, Me moria e 08-23 Route: l 19:49: IVPB, [place] 00 ONCE, Dosing Weight 59.091, kg, PRN Nausea & Vomiting, Start date: 08/23/16 14:49:00 CDT Meperidine 2016-0 No 12.5 mg, Mem oria 08-23 Route: l 19:49: IVP, [place] 00 Q30Min, Dosing Weight 59.091, kg, PRN [...] 4-12 Route: PO, l 19:49: Drug form: [place] 00 TAB, Q4H, Dosing Weight 59.091, kg, PRN Pain Score 4-6, Start date: 08/23/16 14:49:00 CDT, Duration: 30 day, Stop date: 09/22/16 14:48:00 CDT esmolol 2017-0 No 10 mg, Memoria 4-12 Route: l 19:49: IVP, [place] 00 Q5Min, Dosing Weight 59.091, kg, PRN Other -See Comment, Start date: 08/23/16 14:49:00 CDT, Duration: 5 doses or times, Stop date: Limited # of times Labetalol 2017-0 No 10 mg, Memori a 4-12 Route: l 19:49: IVP, [place] 00 Q5Min, Dosing Weight 59.091, kg, PRN Elevated BP, Start date: 08/23/16 14:49:00 CDT, Duration: 5 doses or times, Stop date: Limited # of times Hydralazine 2017-0 No 10 mg, Jhonathan jaime 4-12 Route: l 19:49: IVP, [place] 00 Q20Min, Dosing Weight 59.091, kg, PRN [...] 08-23 Rate: 125 l 0.0014 19:49: ml/hr, [place] MEQ/ML / 00 Infuse Potassium over: 8 Chloride hr, Route: 0.004 IV, Dosing MEQ/ML / Weight Sodium 59.091 kg, Chloride Total 0.103 Volume: MEQ/ML / 1,000, Sodium Start Lactate date: 0.028 08/23/16 MEQ/ML 14:49:00 Injectable CDT, Solution Duration: 30 day, Stop date: 09/22/16 14:48:00 CDT Naloxone 2017-0 No 0.4 mg, Memori a 08-23 Route: l 19:49: IVP, [place] 00 Q2MIN, Dosing Weight 59.091, kg, PRN Narcotic Reversal, Start date: 08/23/16 14:49:00 CDT, Duration: 8 doses or times, Stop date: Limited # of times Albuterol 2017-0 No 2.49 mg, Jhonathan jaime 0.83 MG/ML 08-23 Route: l Inhalant 19:49: NEB, [place] Solution 00 Q20Min, Dosing Weight 59.091, kg, PRN Wheezing, Priority: STAT, Start date: 08/23/16 14:49:00 CDT, Duration: 30 day, Stop date: 09/22/16 14:48:00 CDT Diphenhydra 2017-0 No 12.5 mg, Me moria mine 12 Route: l 19:49: IVP, Drug [place] 00 form: INJ, Q6H, Dosing Weight 59.091, kg, PRN Itching, Start date: 08/23/16 14:49:00 CDT, Duration: 30 day, Stop date: 09/22/16 14:48:00 CDT Promethazin 2017-0 No 6.25 mg, Me moria e 4-12 Route: l 19:49: IVPB, [place] 00 ONCE, Dosing Weight 59.091, kg, PRN Nausea & Vomiting, Start date: 08/23/16 14:49:00 CDT Meperidine 2017-0 No 12.5 mg, Mem oria 4-12 Route: l 19:49: IVP, [place] 00 Q30Min, [...] Memori a 4-12 Route: l 19:49: IVP, [place] 00 Q5Min, Dosing Weight 59.091, kg, PRN [...] Flumazenil 2017-0 No 0.2 mg, Jhonathan jaime 12 Route: l 19:49: IVP, PRN, [place] 00 Dosing Weight 59.091, kg, PRN Benzodiaze [...] Memori a 08-23 Route: l 19:49: IVP, [place] 00 Q2MIN, Dosing Weight 59.091, kg, PRN Narcotic Reversal, Start date: 08/23/16 14:49:00 CDT, Duration: 8 doses or times, Stop date: Limited # of times Albuterol 2017-0 No 2.49 mg, Jhonathan jaime 0.83 MG/ML 08-23 Route: l Inhalant 19:49: NEB, [place] Solution 00 Q20Min, Dosing Weight 59.091, kg, PRN Wheezing, Priority: STAT, Start date: 08/23/16 14:49:00 CDT, Duration: 30 day, Stop date: 09/22/16 14:48:00 CDT Diphenhydra 2017-0 No 12.5 mg, Me moria mine 4-12 Route: l 19:49: IVP, Drug [place] 00 form: INJ, Q6H, Dosing Weight 59.091, kg, PRN Itching, Start date: 08/23/16 14:49:00 CDT, Duration: 30 day, Stop date: 09/22/16 14:48:00 CDT Promethazin 2017-0 No 6.25 mg, Me moria e 4-12 Route: l 19:49: IVPB, [place] 00 ONCE, Dosing Weight 59.091, kg, PRN Nausea & Vomiting, Start date: 08/23/16 14:49:00 CDT Meperidine 2017-0 No 12.5 mg, Mem oria 4-12 Route: l 19:49: IVP, [place] 00 Q30Min, Dosing Weight 59.091, kg, PRN [...] 4-12 Route: PO, l 19:49: Drug form: [place] 00 TAB, Q4H, Dosing Weight 59.091, kg, [...] Memori a 4-12 Route: l 19:49: IVP, [place] 00 Q5Min, Dosing Weight 59.091, kg, PRN [...] jaime 4-12 Route: l 19:49: IVP, PRN, [place] 00 Dosing Weight 59.091, kg, PRN Benzodiaze pine Reversal, Initial dose, Start date: 08/23/16 14:49:00 CDT, Duration: 30 day, Stop date: 09/22/16 14:48:00 CDT Hydromorpho 2017-0 No 0.5 mg, Mem oria ne 4-12 Route: l 19:49: IVP, [place] 00 Q5Min, Dosing Weight 59.091, kg, PRN Pain Score 7-10, Start date: 08/23/16 14:49:00 CDT, Duration: 4 doses or times, Stop date: Limited # of times Calcium 2017-0 No 1,000 mL, Memor ia Chloride 4-12 Rate: 125 l 0.0014 19:49: ml/hr, [place] [...] Memori a 4-12 Route: l 19:49: IVP, [place] 00 Q2MIN, Dosing Weight 59.091, kg, PRN Narcotic Reversal, Start date: 08/23/16 14:49:00 CDT, Duration: 8 doses or times, Stop date: Limited # of times Albuterol 2017-0 No 3 mL, Memoria 0.833 MG/ML 08-23 Route: l :45: NEB, [place] Ipratropium 00 Dosing Given Weight 0.167 MG/ML 59.091, Inhalant kg, ONCE, Solution STAT, Start date: 08/23/16 12:45:00 CDT, Stop date: 08/23/16 12:45:00 CDT Calcium 2017-0 No 1,000 mL, Mem[facility] ia Chloride 12 Rate: 25 l 0.0014 17:45: ml/hr, [place] MEQ/ML / 00 Infuse Potassium over: 40 Chloride hr, Route: 0.004 IV, Dosing MEQ/ML / Weight Sodium 59.091 kg, Chloride Total 0.103 Volume: MEQ/ML / 1,000, Sodium Start Lactate date: 0.028 08/23/16 MEQ/ML 12:45:00 Injectable CDT, Solution Duration: 30 day, Stop date: 09/22/16 12:44:00 CDT Albuterol 2017-0 No 3 mL, Memoria 0.833 MG/ML 08-23 Route: l :45: NEB, [place] Ipratropium 00 Dosing Given Weight 0.167 MG/ML 59.091, Inhalant kg, ONCE, Solution STAT, Start date: 08/23/16 12:45:00 CDT, Stop date: 08/23/16 12:45:00 CDT Calcium 2017-0 No 1,000 mL, [facility] ia Chloride 08-23 Rate: 25 l 0.0014 17:45: ml/hr, [place] MEQ/ML / 00 Infuse Potassium over: 40 Chloride hr, Route: 0.004 IV, Dosing MEQ/ML / Weight Sodium 59.091 kg, Chloride Total 0.103 Volume: MEQ/ML / 1,000, Sodium Start Lactate date: 0.028 08/23/16 MEQ/ML 12:45:00 Injectable CDT, Solution Duration: 30 day, Stop date: 09/22/16 12:44:00 CDT Albuterol 2017-0 No 3 mL, Memoria 0.833 MG/ML 4-12 Route: l / 17:45: NEB, [place] Ipratropium 00 Dosing Given Weight 0.167 MG/ML 59.091, Inhalant kg, ONCE, Solution STAT, Start date: 08/23/16 12:45:00 CDT, Stop date: 08/23/16 12:45:00 CDT Calcium 2017-0 No 1,000 mL, [facility] Chloride 4-12 Rate: 25 l 0.0014 17:45: ml/hr, [place] MEQ/ML / 00 Infuse Potassium over: 40 [...] Total Volume: 1,000, Start date: 06/19/16 10:43:00 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, Duration: 30 day, Stop date: 07/19/16 10:42:00 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 Sodium 2017-0 No 1,000 mL, Memori a Chloride 2-06 Rate: 25 l 0.154 16:43: ml/hr, [place] MEQ/ML 00 Infuse Injectable over: 40 Solution hr, Route: IV, Dosing Weight 60.455 kg, Total Volume: 1,000, Start date: 06/19/16 10:43:00 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, Duration: 30 day, Stop date: 07/19/16 10:42:00 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 Sodium 2017-0 No 1,000 mL, Memori a Chloride 2-06 Rate: 25 l 0.154 16:43: ml/hr, [place] MEQ/ML 00 Infuse Injectable over: 40 Solution hr, Route: IV, Dosing Weight 60.455 kg, Total Volume: 1,000, Start date: 06/19/16 10:43:00 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, Duration: 30 day, Stop date: 07/19/16 10:42:00 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 Fish Oil 2017-0 Yes PO, 0 Memoria 2-06 Refill(s) l 16:40: [place] 00 Fish Oil 2017-0 Yes PO, 0 Memoria 2-06 Refill(s) l 16:40: [place] 00 Fish Oil 2017-0 Yes PO, 0 Memoria 2-06 Refill(s) l 16:40: [place] 00 Sodium 2015-05 No 1,000 mL, Memori a Chloride 0-04 Rate: 25 l 0.154 14:09: ml/hr, [place] MEQ/ML 00 Infuse Injectable over: 40 Solution hr, Route: IV, Dosing Weight 60.511 kg, Total Volume: 1,000, Start date: 02/15/16 9:09:00 CDT, Duration: 1 day, Stop date: 02/16/16 9:08:00 CDT Sodium 2015-05 No 1,000 mL, Memori a Chloride 0-04 Rate: 25 l 0.154 14:09: ml/hr, [place] MEQ/ML 00 Infuse Injectable over: 40 Solution [...] Memor ia 9-26 0 l 18:15: Refill(s) [place] biotin 2016-0 Yes PO, Daily, Memor ia [...] 09-27 Route: l 18:41: IVP, Drug [place] form: INJ, Q6H, Dosing Weight 57.727, kg, [...] jaime 09-27 Route: l 18:41: IVP, PRN, [place] 00 Dosing Weight 57.727, kg, PRN Benzodiaze pine Reversal, Initial dose, Start date: 09/28/15 13:41:00 CDT, Duration: 30 day, Stop date: 10/28/15 13:40:00 CDT Sodium 2016-0 No 500 mL, Mem[facility] Chloride 09-27 Rate: 125 l 0.154 18:41: ml/hr, [place] MEQ/ML 00 Infuse Injectable over: 4 Solution [...] Mem oria 5-17 Route: l 18:41: IVP, [place] 00 Q30Min, Dosing Weight 57.727, kg, PRN Other -See Comment, For shivering, Start date: 09/28/15 13:41:00 CDT, Duration: 2 doses or times, Stop date: Limited # of times Hydromorpho 2016-0 No 0.5 mg, Mem oria ne 5-17 Route: l 18:41: IVP, [place] 00 Q5Min, Dosing Weight 57.727, kg, PRN Pain Score 7-10, Start date: 09/28/15 13:41:00 CDT, Duration: 4 doses or times, Stop date: Limited # of times Fentanyl 2016-0 No 25 Memoria 5-17 microgram, l 18:41: Route: [place] 00 IVP, Q5Min, Dosing Weight 57.727, kg, [...] 2016-0 No 6.25 mg, Me moria e - Route: l 18:41: IVPB, [place] 00 ONCE, Dosing Weight 57.727, kg, PRN Nausea & Vomiting, Start date: 09/28/15 13:41:00 CDT Ondansetron 2015-0 No 4 mg, [facility] ia 09-27 Route: l 18:41: IVP, ONCE, [place] 00 Dosing Weight 57.727, kg, PRN Nausea & Vomiting, Start date: 09/28/15 13:41:00 CDT Diphenhydra 2015-0 No 12.5 mg, Me moria mine 09-27 Route: l 18:41: IVP, Drug [place] form: INJ, Q6H, Dosing Weight 57.727, kg, [...] Sodium 2015-0 No 500 mL, Mem[facility] Chloride 09-27 Rate: [...] Mem oria 5-17 Route: l 18:41: IVP, [place] 00 Q30Min, Dosing Weight 57.727, kg, PRN Other -See Comment, For shivering, Start date: 09/28/15 13:41:00 CDT, Duration: 2 doses or times, Stop date: Limited # of times Hydromorpho 2015-0 No 0.5 mg, Mem oria ne 5-17 Route: l 18:41: IVP, [place] 00 Q5Min, Dosing Weight 57.727, kg, PRN [...] 2016-0 No 6.25 mg, Me moria e 09-27 Route: l 18:41: IVPB, [place] 00 ONCE, Dosing Weight 57.727, kg, PRN Nausea & Vomiting, Start date: 09/28/15 13:41:00 CDT Ondansetron 2015-0 No 4 mg, [facility] 09-27 Route: l 18:41: IVP, ONCE, [place] 00 Dosing Weight 57.727, kg, PRN Nausea & Vomiting, Start date: 09/28/15 13:41:00 CDT Diphenhydra 2016-0 No 12.5 mg, Me moria mine 09-27 Route: l 18:41: IVP, Drug [place] form: INJ, Q6H, Dosing Weight 57.727, kg, PRN Itching, Start date: 09/28/15 13:41:00 CDT, Duration: 30 day, Stop date: 10/28/15 13:40:00 CDT Albuterol 2015-0 No 2.49 mg, Jhonathan jaime 0.83 MG/ML 09-27 Route: l Inhalant 18:41: NEB, [place] Solution 00 Q20Min, Dosing Weight 57.727, kg, PRN Wheezing, Priority: STAT, Start date: 09/28/15 13:41:00 CDT, Duration: 30 day, Stop date: 10/28/15 13:40:00 CDT Naloxone 2016-0 No 0.04 mg, [facility] ia 09-27 Route: l 18:41: IVP, [place] 00 Q2MIN, Dosing Weight 57.727, kg, PRN Narcotic Reversal, Start date: 09/28/15 13:41:00 CDT, Duration: 8 doses or times, Stop date: Limited # of times Flumazenil 2016-0 No 0.2 mg, Jhonathan jaime 09-27 Route: l 18:41: IVP, PRN, [place] 00 Dosing Weight 57.727, kg, PRN Benzodiaze pine Reversal, Initial dose, Start date: 09/28/15 13:41:00 CDT, Duration: 30 day, Stop date: 10/28/15 13:40:00 CDT Sodium 2016-0 No 500 mL, [facility] Chloride 5-17 Rate: 125 l 0.154 18:41: ml/hr, [place] MEQ/ML 00 Infuse Injectable over: 4 Solution hr, Route: IV, Dosing Weight 57.727 kg, Total Volume: 500, Start date: 09/28/15 13:41:00 CDT, Duration: 30 day, Stop date: 10/28/15 13:40:00 CDT Glucose 50 2016-0 No 1,000 mL, Me moria MG/ML / 517 Rate: 125 l Sodium 18:41: ml/hr, [place] Chloride 00 Infuse 0.154 over: 8 MEQ/ML hr, Route: Injectable IV, Dosing Solution Weight 57.727 kg, Total Volume: 1,000, Start date: 09/28/15 13:41:00 CDT, Duration: 30 day, Stop date: 10/28/15 13:40:00 CDT Meperidine 2016-0 No 12.5 mg, Mem oria 5-17 Route: l 18:41: IVP, [place] 00 Q30Min, Dosing Weight 57.727, kg, PRN [...] 25 Memoria 5-17 microgram, l 18:41: Route: [place] 00 IVP, Q5Min, Dosing Weight 57.727, kg, [...] day, Stop date: 10/28/15 13:40:00 CDT ondansetron 2015-0 No Route: IV, Memoria (ANES) 5-17 Drug form: l 18:14: INJ, ONCE, Stop date: 09/28/15 13:14:00 CDT ondansetron 2015-0 No Route: IV, Memoria (ANES) 5-17 Drug form: l 18:14: INJ, ONCE, Stop date: 09/28/15 13:14:00 CDT ondansetron 2015-0 No Route: IV, [facility]oria (ANES) 5-17 Drug [...] ONCE, Stop date: 09/28/15 13:09:00 CDT Lactated 0 No Route: IV, Mem oria Ringers 5-17 Total l Injection 17:10: Volume: Adela nn IV (ANES) 00 1,000, (ANES) Start date: 09/28/15 12:10:00 CDT, Stop date: 09/28/15 13:10:00 CDT Lactated 0 No Route: IV, Mem oria Ringers 5-17 Total l Injection 17:10: Volume: Adela nn IV (ANES) 00 1,000, (ANES) Start date: 09/28/15 12:10:00 CDT, Stop date: 09/28/15 13:10:00 CDT Lactated 2016-0 No Route: IV, Mem oria Ringers - Total l Injection 17:10: Volume: Adela nn IV (ANES) 00 1,000, (ANES) Start date: 09/28/15 12:10:00 CDT, Stop date: 09/28/15 13:10:00 CDT heparin Yes Notes: Memoria sodium, 17 porcine l porcine 16:06: heparin [place] 2500 UNT/ML 00 Injectable Solution heparin Yes Notes: Memoria sodium, -17 porcine l porcine 16:06: heparin [place] 2500 UNT/ML 00 Injectable Solution heparin Yes Notes: [facility] sodium, -17 porcine l porcine 16:06: heparin [place] 2500 UNT/ML 00 Injectable Solution Calcium No 1,000 mL, [facility] Chloride 09-27 Rate: 25 l 0.0014 16:04: ml/hr, [place] MEQ/ML / 00 Infuse Potassium over: 40 Chloride hr, Route: 0.004 IV, Dosing MEQ/ML / Weight Sodium 57.727 kg, Chloride Total 0.103 Volume: MEQ/ML / 1,000, Sodium Start Lactate date: 0.028 09/28/15 MEQ/ML 11:04:00 Injectable CDT, Solution Duration: 30 day, Stop date: 10/28/15 11:03:00 CDT Sodium No 500 mL, [facility] Chloride 09-27 Rate: 125 l 0.154 16:04: ml/hr, [place] MEQ/ML 00 Infuse Injectable over: 4 Solution hr, Route: IV, Dosing Weight 57.727 kg, Total Volume: 500, Start date: 09/28/15 11:04:00 CDT, Duration: 30 day, Stop date: 10/28/15 11:03:00 CDT Glucose 50 No 1,000 mL, Me moria MG/ML / 09-27 Rate: 25 l Sodium 16:04: ml/hr, [place] Chloride 00 Infuse 0.154 over: 40 MEQ/ML [...] 5-17 Rate: 25 l 0.0014 16:04: ml/hr, [place] MEQ/ML / 00 Infuse Potassium over: 40 Chloride hr, Route: 0.004 IV, Dosing MEQ/ML / Weight Sodium 57.727 kg, Chloride Total 0.103 Volume: MEQ/ML / 1,000, Sodium Start Lactate date: 0.028 09/28/15 MEQ/ML 11:04:00 Injectable CDT, Solution Duration: 30 day, Stop date: 10/28/15 11:03:00 CDT Sodium 2016-0 No 500 mL, [facility] Chloride 5-17 Rate: 125 l 0.154 16:04: ml/hr, [place] MEQ/ML 00 Infuse Injectable over: 4 Solution hr, Route: IV, Dosing Weight 57.727 kg, Total Volume: 500, Start date: 09/28/15 11:04:00 CDT, Duration: 30 day, Stop date: 10/28/15 11:03:00 CDT Glucose 50 2016-0 No 1,000 mL, Me moria MG/ML / 5-17 Rate: 25 l Sodium 16:04: ml/hr, [place] Chloride 00 Infuse 0.154 over: 40 MEQ/ML [...] 5-17 Rate: 25 l 0.0014 16:04: ml/hr, [place] MEQ/ML / 00 Infuse Potassium over: 40 [...] moria 5-17 Rate: 25 l 16:04: ml/hr, [place] 00 Infuse over: 40 hr, Route: IV, Dosing Weight 57.727 kg, Total Volume: 1,000, Start date: 09/28/15 11:04:00 CDT, Duration: 30 day, Stop date: 10/28/15 11:03:00 CDT Unknown 2015-0 Yes Refill(s) [facility] Home 5-17 0 l Medication 14:33: [place] 00 Vitamin B12 2015-0 Yes 500 Memori a 500 mcg 5-17 microgram l oral tablet 14:33: = 1 tab, [place] 00 PO, Daily, # 30 tab, 0 Refill(s) Unknown Yes Refill(s) [facility] Home 5-17 0 l Medication 14:33: Vitamin B12 Yes 500 Memori a 500 mcg 5-17 microgram l oral tablet 14:33: = 1 tab, [place] 00 PO, Daily, # 30 tab, 0 Refill(s) Unknown Yes Refill(s) [facility] Home 5-17 0 l Medication 14:33: Vitamin B12 Yes 500 Memori a 500 mcg 5-17 microgram l oral tablet 14:33: = 1 tab, [place] 00 PO, Daily, # 30 tab, 0 Refill(s) Amlodipine Yes 2.5 mg = 1 M emoria 2.5 MG Oral 5-17 tab, PO, l Tablet 14:32: Daily, # [place] [Norvasc] 00 30 tab, 0 Refill(s) Amlodipine 0 Yes 2.5 mg = 1 M emoria [...] oria 2-25 IV push l 15:00: reconstitu [place] 00 te with 10 ml 0.9% sodium chloride and push over 2 minutes. (Same as: Protonix) Fish Oil No 1,000 mg, Jhonathan jaime 2-25 Route: PO, l 15:00: Drug form: [place] 00 CAP, Daily, Dosing Weight 55.909, kg, [...] PO, l 15:00: Drug form: [place] 00 CAP, Daily, Dosing Weight 55.909, kg, Start date: 07/08/15 9:00:00, Duration: 30 day, Stop date: 08/06/15 9:00:00 Protonix 2016-0 No Notes: For Mem oria 2-25 IV push l 15:00: reconstitu [place] 00 te with 10 ml 0.9% sodium chloride and push over 2 minutes. (Same as: Protonix) Fish Oil No 1,000 mg, Jhonathan jaime 2-25 Route: PO, l 15:00: Drug form: [place] 00 CAP, Daily, Dosing Weight 55.909, kg, Start date: 07/08/15 9:00:00, Duration: 30 day, Stop date: 08/06/15 9:00:00 Lisinopril 2015-0 No Notes: Memor ia 2-25 (Same as: l 03:00: Prinivil, [place] 00 Zestril) Lisinopril 2015-0 No Notes: Mem[facility] ia 2-25 (Same as: l 03:00: Prinivil, [place] 00 Zestril) Lisinopril 2015-0 No Notes: [facility] ia 2-25 (Same as: l 03:00: Prinivil, [place] 00 Zestril) NURSE - 2015-0 No NURSE - Memoria Please 2-24 Please [...] MG/ML 2-24 (Same l Oral 19:21: as:Chronul [place] Solution 00 ac) Lactulose No Notes: Memori a 667 MG/ML 2-24 (Same l Oral 19:21: as:Chronul [place] Solution 00 ac) Lactulose No Notes: Memori a 667 MG/ML 2-24 (Same l Oral 19:21: as:Chronul [place] Solution 00 ac) Amoxicillin Yes 5 ml, [...] 2-24 PO, Daily, l oral 19:16: 0 [place] capsule 00 Refill(s) Fish Oil Yes 1,000 mg, Jhonathan jaime 1000 mg 2-24 PO, Daily, l oral 19:16: 0 [place] capsule 00 Refill(s) Fish Oil Yes 1,000 mg, Jhonathan jaime 1000 mg 2-24 PO, Daily, l oral 19:16: 0 [place] capsule 00 Refill(s) Protonix No Notes: For [...] 2 minutes. (Same as: Protonix) Fleet Enema 2015- No 133 mL, Mem oria 2-24 Route: [place], l 14:54: Dosing [place] Weight 55.909, kg, ONCE, Start date: 07/07/15 8:54:00, Stop date: 07/07/15 8:54:00 Fleet Enema 2015-0 No 133 mL, Mem oria 2-24 Route: [place], l 14:54: Dosing [place] Weight 55.909, kg, ONCE, Start date: 07/07/15 8:54:00, Stop date: 07/07/15 8:54:00 Fleet Enema No 133 mL, Mem oria 2-24 Route: [place], l 14:54: Dosing [place] 00 Weight 55.909, kg, ONCE, Start date: 07/07/15 8:54:00, Stop date: 07/07/15 8:54:00 Zosyn 2015- No Notes: Memoria 2-24 (Same as: l 04:00: Zosyn) [place] 00 Dosing based on Piperacill in component Zosyn 2015-0 No Notes: Memoria 2-24 (Same as: l 04:00: Zosyn) [place] 00 Dosing based on Piperacill in component Zosyn 2015- No Notes: Memoria 2-24 (Same as: l 04:00: Zosyn) [place] 00 Dosing based on Piperacill in component pantoprazol 2016-0 No Notes: For Memoria e 2-23 IV [...] jaime 2-23 (Same as: l 22:58: Zofran) [place] 00 MEDICATION WASTE Product Size: 4 mg Product Wasted: ___ mg Enoxaparin 2015- No Notes: Memor ia 2-23 (Same as: l 22:00: Lovenox) [place] Enoxaparin 2015- No Notes: Mem[facility] ia 2-23 (Same as: l 22:00: Lovenox) [place] Enoxaparin 2015-0 No Notes: Memor ia 2-23 (Same as: l 22:00: Lovenox) [place] 00 D5W 1/2NS No 1,000 mL, Mem oria 1,000 mL 2-23 Rate: 125 l 21:57: ml/hr, [place] 00 Infuse over: 8 hr, Route: IV, Dosing Weight 57.545 kg, Total Volume: 1,000, Start date: 07/06/15 15:57:00, Duration: 30 day, Stop date: 08/05/15 15:56:00 D5W 1/2NS 2016-0 No 1,000 mL, Mem oria 1,000 mL 2 Rate: 125 l 21:57: ml/hr, [place] 00 Infuse over: 8 hr, Route: IV, Dosing Weight 57.545 kg, Total Volume: 1,000, Start date: 07/06/15 15:57:00, Duration: 30 day, Stop date: 08/05/15 15:56:00 D5W 2NS 2016-0 No 1,000 mL, Mem oria 1,000 mL 223 Rate: 125 l 21:57: ml/hr, [place] 00 Infuse over: 8 hr, Route: IV, [...] Route: PO, l Hydrocodone 22:01: Drug Form: [place] Bitartrate 00 TAB, 10 MG Oral Dosing Tablet Weight [[place] 58.182, 10/325] kg, Q6H, PRN Pain, Start date: 07/02/15 16:01:00, Duration: 30 day, Stop date: 08/01/15 16:00:00 Ofirmev 2016-0 No or = 50 Memori a 2-19 kg, Start l 22:01: date: [place] 07/02/15 16:01:00 Oxycodone 2016-0 No 10 mg, Memori a 2-19 Route: PO, l 22:01: Drug form: [place] TAB, Q4H, Dosing Weight 57.545, kg, PRN [...] 2016-0 No 0.5 mg, Mem oria ne 2-19 Route: l 22:01: IVP, [place] 00 Q5Min, Dosing Weight 57.545, kg, PRN [...] Route: PO, l Hydrocodone 22:01: Drug Form: [place] Bitartrate 00 TAB, 10 MG Oral Dosing Tablet Weight [[place] 58.182, 10/325] kg, Q6H, PRN Pain, Start date: 07/02/15 16:01:00, Duration: 30 day, Stop date: 08/01/15 16:00:00 Ofirmev 2016-0 No or = 50 Memori a 2-19 kg, Start l 22:01: date: [place] 07/02/15 16:01:00 Oxycodone 2016-0 No 10 mg, Memori a 2-19 Route: PO, l 22:01: Drug form: [place] 00 TAB, Q4H, Dosing Weight 57.545, kg, PRN Pain Score 7-10, Start date: 07/02/15 16:01:00, Duration: 30 day, Stop date: 08/01/15 16:00:00 Ondansetron 2016-0 No 4 mg, Memor ia 2-19 Route: l 22:01: IVP, ONCE, [place] 00 Dosing Weight 57.545, kg, PRN Nausea [...] 2016-0 No 0.5 mg, Mem oria ne - Route: l 22:01: IVP, [place] 00 Q5Min, Dosing Weight 57.545, kg, PRN Pain Score 7-10, Start date: 07/02/15 16:01:00, Duration: 4 doses or times, Stop date: Limited # of times Naloxone 2016-0 No 0.04 mg, Memor ia - Route: l 22:01: IVP, [place] 00 Q2MIN, Dosing Weight 57.545, kg, PRN Narcotic Reversal, Start date: 07/02/15 16:01:00, Duration: 8 doses or times, Stop date: Limited # of times Acetaminoph 2016-0 No 1 tab, Jhonathan jaime en 325 MG / 2-19 Route: PO, l Hydrocodone 22:01: Drug Form: [place] Bitartrate 00 TAB, 10 MG Oral Dosing Tablet Weight [[place] 58.182, 10/325] kg, Q6H, PRN Pain, Start date: 07/02/15 16:01:00, Duration: 30 day, Stop date: 08/01/15 16:00:00 Ofirmev 2016-0 No or = 50 Memori a 2-19 kg, Start l 22:01: date: [place] 00 07/02/15 16:01:00 Oxycodone 2016-0 No 10 mg, Memori a 2-19 Route: PO, l 22:01: Drug form: [place] TAB, Q4H, Dosing Weight 57.545, kg, PRN [...] Flumazenil 2016-0 No 0.2 mg, Jhonathan jaime -19 Route: l 22:01: IVP, PRN, Dosing Weight 57.545, kg, PRN Benzodiaze pine Reversal, Initial dose, Start date: 07/02/15 16:01:00, Duration: 30 day, Stop date: 08/01/15 17:00:00 Hydromorpho 2016-0 No 0.5 mg, Mem oria ne 2-19 Route: l 22:01: IVP, Q5Min, Dosing Weight 57.545, kg, PRN Pain Score 7-10, Start date: 07/02/15 16:01:00, Duration: 4 doses or times, Stop date: Limited # of times Naloxone 0 No 0.04 mg, Memor ia 2-19 Route: l 22:01: IVP, [place] 00 Q2MIN, Dosing Weight 57.545, kg, PRN Narcotic Reversal, Start date: 07/02/15 16:01:00, Duration: 8 doses or times, Stop date: Limited # of times Hydralazine No Notes: Jhonathan jaime 2-19 (Same as: l 21:52: Apresoline [place] 00 ) Push over 5 minutes Hydralazine 0 No Notes: Jhonathan jaime 2-19 (Same as: l 21:52: Apresoline [place] 00 ) Push over 5 minutes Hydralazine No Notes: Jhonathan jaime 2-19 (Same as: l 21:52: Apresoline [place] 00 ) Push over 5 minutes ondansetron 0 No Route: IV, Memoria (ANES) 2-19 Drug form: l 21:31: INJ, ONCE, Stop date: 07/02/15 15:31:00 ondansetron 0 No Route: IV, Memoria (ANES) 2-19 Drug form: l 21:31: INJ, ONCE, Stop date: 07/02/15 15:31:00 ondansetron 2015-0 No Route: IV, Memoria (ANES) 2-19 Drug [...] INJ, ONCE, Stop date: 07/02/15 15:28:00 rocuronium 2015-0 No Route: IV, M emoria (ANES) 2-19 Drug form: l 21:26: INJ, ONCE, Stop date: 07/02/15 15:26:00 rocuronium 2016-0 No Route: IV, Mauricio emoria (ANES) 2-19 Drug form: l 21:26: INJ, ONCE, Stop date: 07/02/15 15:26:00 rocuronium 2016-0 No Route: IV, Mauricio emoria (ANES) 2-19 Drug form: l 21:26: INJ, ONCE, Stop date: 07/02/15 15:26:00 cefOXitin 2016-0 No Route: IV, Me moria [...] gm, Memoria 2-19 Route: l 19:01: IVPB, [place] 00 ONCE, Dosing Weight 57.545, kg, 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 [place], Start date: 07/02/15 13:01:00, Stop date: 07/02/15 13:01:00 Cefoxitin 2015-0 No 2 gm, Memoria 2-19 Route: l 19:01: IVPB, [place] 00 ONCE, Dosing Weight 57.545, kg, 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 OR, Start date: 07/02/15 13:01:00, Stop date: 07/02/15 13:01:00 Cefoxitin 2015-0 No 2 gm, Memoria 2 Route: l 19:01: IVPB, [place] 00 ONCE, Dosing Weight 57.545, kg, 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 OR, Start date: 07/02/15 13:01:00, Stop date: 07/02/15 13:01:00 heparin 2015-0 No Route: Memoria sodium, 2-19 SUB-Q, l porcine 18:58: ONCE, [place] 2500 UNT/ML 00 Dosing Injectable Weight Solution 57.545, kg, Start date: 07/02/15 12:58:00, Stop date: 07/02/15 12:58:00 heparin 0 No Route: Memoria sodium, 2-19 SUB-Q, l porcine 18:58: ONCE, [place] 2500 UNT/ML 00 Dosing Injectable Weight Solution 57.545, kg, Start date: 07/02/15 12:58:00, Stop date: 07/02/15 12:58:00 heparin 2015-0 No Route: Memoria sodium, 2-19 SUB-Q, l porcine 18:58: ONCE, [place] 2500 UNT/ML 00 Dosing Injectable Weight Solution 57.545, kg, Start date: 07/02/15 12:58:00, Stop date: 07/02/15 12:58:00 Calcium 2015-0 No 1,000 mL, Memor ia Chloride 2- Rate: 25 l 0.0014 18:39: ml/hr, [place] MEQ/ML / 00 Infuse Potassium over: 40 Chloride hr, Route: 0.004 IV, Dosing MEQ/ML / Weight Sodium 57.545 kg, Chloride Total 0.103 Volume: MEQ/ML / 1,000, Sodium Start Lactate date: 0.028 07/02/15 MEQ/ML 12:39:00, Injectable Duration: Solution 30 day, Stop date: 08/01/15 12:38:00 Calcium 2016-0 No 1,000 mL, Memor ia Chloride 2-19 Rate: 25 l 0.0014 18:39: ml/hr, [place] MEQ/ML / 00 Infuse Potassium over: 40 Chloride hr, Route: 0.004 IV, Dosing MEQ/ML / Weight Sodium 57.545 kg, Chloride Total 0.103 Volume: MEQ/ML / 1,000, Sodium Start Lactate date: 0.028 07/02/15 MEQ/ML 12:39:00, Injectable Duration: Solution 30 day, Stop date: 08/01/15 12:38:00 Calcium 2016-0 No 1,000 mL, Memor ia Chloride 2-19 Rate: 25 l 0.0014 18:39: ml/hr, [place] MEQ/ML / 00 Infuse Potassium over: 40 [...] Daily, 0 [place] capsule 00 Refill(s) omeprazole Yes 20 mg = 1 Me moria 20 mg oral 2-19 tab, PO, l enteric 17:42: BID, # 60 Adela nn coated 00 tab, 0 tablet Refill(s) Fish Oil 20160 Yes 1,000 mg = Mem oria 1000 mg 2-19 1 cap, PO, l oral 17:42: Daily, 0 [place] capsule 00 Refill(s) omeprazole 20160 Yes 20 mg = 1 Me moria 20 mg oral 2-19 tab, PO, l enteric 17:42: BID, # 60 Adela nn coated 00 tab, 0 tablet Refill(s) Fish Oil 0 Yes 1,000 mg = Mem oria 1000 mg 2-19 1 cap, PO, l oral 17:42: Daily, 0 [place] capsule 00 Refill(s) omeprazole 2016- Yes 20 mg = 1 Me moria [...] / 1,000, Sodium Start Lactate date: 0.028 08/11/15 MEQ/ML 9:33:00, Injectable Duration: Solution 30 day, [...] 2014-0 No 1,000 mL, Memor ia Chloride 3- Rate: 25 l 0.0014 14:33: ml/hr, MEQ/ML / 00 Infuse Potassium over: 40 [...] 30 day, Stop date: 09/10/14 9:32:00 Cefoxitin 2014-0 No 2 gm, Memoria 3-31 Route: IV, l 14:30: ONCE, Dosing Weight 58.182, kg, Start date: 08/11/14 9:30:00, Stop date: 08/11/14 9:30:00 Cefoxitin 2015-0 No 2 gm, Memoria 3-31 Route: IV, l 14:30: ONCE, Dosing Weight 58.182, kg, Start date: 08/11/14 9:30:00, Stop date: 08/11/14 9:30:00 Cefoxitin 2015-0 No 2 gm, Memoria 3-31 Route: IV, l 14:30: ONCE, [place] 00 Dosing Weight 58.182, kg, Start date: 08/11/14 9:30:00, Stop date: 08/11/14 9:30:00 heparin 2015-0 No 5,000 Memoria 3-31 unit, l 14:25: Route: [place] 00 SUB-Q, ONCE, Dosing Weight 58.182, kg, Start date: 08/11/14 9:25:00, Stop date: 08/11/14 9:25:00 heparin 2014-0 No 5,000 Memoria 3-31 unit, l 14:25: Route: [place] 00 SUB-Q, ONCE, Dosing Weight 58.182, kg, Start date: 08/11/14 9:25:00, Stop date: 08/11/14 9:25:00 heparin 2015-0 No 5,000 Memoria 3-31 unit, l 14:25: Route: [place] 00 SUB-Q, ONCE, Dosing Weight 58.182, kg, Start date: 08/11/14 9:25:00, Stop date: 08/11/14 9:25:00 tramadol 2015-0 Yes 50 mg = 1 Jhonathan jaime hydrochlori 1-07 tab, PO, l de 50 MG 20:00: Q6H, Pain, Her garnett Oral Tablet 00 # 40 tab, 0 Refill(s) pantoprazol 2014-0 Yes 40 mg = 1 M emoria e 40 mg 1-07 tab, PO, l oral 20:00: BID, # 30 [place] enteric 00 tab, 0 coated Refill(s) tablet tramadol 2014-0 Yes 50 mg = 1 Jhonathan jaime hydrochlori 1-07 tab, PO, l de 50 MG 20:00: Q6H, Pain, Her garnett Oral Tablet 00 # 40 tab, 0 Refill(s) pantoprazol 2014-0 Yes 40 mg = 1 M emoria e 40 mg 1-07 tab, PO, l oral 20:00: BID, # 30 [place] enteric 00 tab, 0 coated Refill(s) tablet tramadol 2014-0 Yes 50 mg = 1 Jhonathan jaime hydrochlori 1-07 tab, PO, l de 50 MG 20:00: Q6H, Pain, Her garnett Oral Tablet 00 # 40 tab, 0 Refill(s) pantoprazol 2014-0 Yes 40 mg = 1 M emoria e 40 mg 1-07 tab, PO, l oral 20:00: BID, # 30 [place] enteric 00 tab, 0 coated Refill(s) tablet Omeprazole 0 No 20 mg, Memor ia 05-20 Route: PO, l 15:00: Drug form: [place] 00 ECTAB, BID, Dosing Weight 62.273, kg, Start date: 05/20/14 9:00:00, Duration: 30 day, Stop date: 06/18/14 17:00:00 Lisinopril 2014-0 No Notes: Memor ia 05-20 (Same as: l 15:00: Prinivil, [place] 00 Zestril) Protonix 2014-0 No Notes: Memoria 1-07 Tablet l 15:00: should not [place] 00 be chewed or crushed. (Same as: Protonix) Omeprazole 2014-0 No 20 mg, Memor ia 1-07 Route: PO, l 15:00: Drug form: [place] 00 ECTAB, BID, Dosing Weight 62.273, kg, Start date: 05/20/14 9:00:00, Duration: 30 day, Stop date: 06/18/14 17:00:00 Lisinopril 2015-0 No Notes: Memor ia 1-07 (Same as: l 15:00: Prinivil, [place] 00 Zestril) Protonix 2014-0 No Notes: Memoria 1-07 Tablet l 15:00: should not [place] 00 be chewed or crushed. (Same as: Protonix) Omeprazole 0 No 20 mg, Memor ia 1-07 Route: [...] 4 days. Jhonathan jaime 1-07 l 06:00: [place] 00 Ketorolac 2014-0 No 4 days. Jhonathan jaime 1-07 l 06:00: [place] 00 Ketorolac 2014-0 No 4 days. Jhonathan jaime 1-07 l 06:00: [place] 00 Enoxaparin 2014-0 No Notes: Memor ia 1-07 (Same as: l 01:00: Lovenox) [place] Enoxaparin 2014-0 No Notes: Memor ia 1-07 (Same as: l 01:00: Lovenox) [place] Enoxaparin 2014-0 No Notes: Memor ia 1-07 (Same as: l 01:00: Lovenox) [place] 00 Acetaminoph No Notes: Max Memoria en 05-20 acetaminop l 00:18: hen 4000 [place] 00 mg/day (4 gm/day). (Same as: Tylenol Extra Strength) Acetaminoph No Notes: Max Memoria en 05-20 acetaminop l 00:18: hen 4000 [place] 00 mg/day (4 gm/day). (Same as: Tylenol Extra Strength) Acetaminoph No Notes: Max Memoria en 05-20 acetaminop l 00:18: hen 4000 [place] 00 mg/day (4 gm/day). (Same as: Tylenol Extra Strength) Phenergan No Notes: Do Mem oria 1-06 not give l 21:03: IV push. [place] 00 (Same as: Phenergan) Phenergan No Notes: Do Mem oria 1-06 not give l 21:03: IV push. [place] 00 (Same as: Phenergan) Phenergan No Notes: Do Mem oria 1-06 not give l 21:03: IV push. [place] 00 (Same as: Phenergan) Ketorolac No 4 days Memor ia 1-06 l 21:01: [place] 00 Ketorolac No 4 days Memor ia 1-06 l 21:01: [place] 00 Ketorolac No 4 days Memor ia 1-06 l 21:01: [place] 00 Morphine No Notes: Memoria 1-06 (Same l 20:04: as:MORPhin [place] 00 e Sulfate) Morphine No Notes: Memoria 1-06 (Same l 20:04: as:MORPhin [place] 00 e Sulfate) Morphine No Notes: [facility]oria 1-06 (Same l 20:04: as:MORPhin [place] 00 e Sulfate) Saline No Notes: Memoria Flush 0.9% 05-19 (Same as: l 18:51: BD [place] 00 Posiflush) Sodium No 1,000 mL, Memori [...] 05-19 not exceed l 18:51: 4 gm/day. [place] 00 (Same as: Tylenol) Morphine No 2 mg, Memoria 05-19 Route: l 18:51: IVP, Q4H, Dosing Weight 60.909, kg, PRN Pain Score 4-6, Start date: 05/19/14 12:51:00, Duration: 30 day, Stop date: 06/18/14 12:50:00 Saline No Notes: [facility]oria Flush 0.9% 05-19 (Same as: l 18:51: BD Posiflush) Sodium No 1,000 mL, Memori a Chloride 05-19 Rate: 75 l 0.154 18:51: ml/hr, [place] MEQ/ML 00 Infuse Injectable over: 13.3 Solution hr, Route: IV, Dosing Weight 60.909 kg, Total Volume: 1,000, Start date: 05/19/14 12:51:00, Duration: 30 day, Stop date: 06/18/14 12:50:00 Ondansetron No Notes: Jhonathan jaime 05-19 (Same as: l 18:51: Zofran) [place] 00 Acetaminoph No Notes: Do M emoria en 05-19 not exceed l 18:51: 4 gm/day. [place] 00 (Same as: Tylenol) Morphine No 2 mg, Memoria 05-19 Route: l 18:51: IVP, Q4H, Dosing Weight 60.909, kg, PRN Pain Score 4-6, Start date: 05/19/14 12:51:00, Duration: 30 day, Stop date: 06/18/14 12:50:00 Saline No Notes: [facility] Flush 0.9% 05-19 (Same as: l 18:51: BD [place] 00 Posiflush) Sodium 2014-0 No 1,000 mL, [...] 1-06 500 ml/hr, l 0.154 17:48: Infuse [place] MEQ/ML 00 Over: 1 Injectable hr, Route: Solution IV, ONCE, Priority: STAT, Dosing Weight 60.909 kg, Start date: 05/19/14 11:48:00, Duration: 1 doses or times, Stop date: 05/19/14 11:48:00 Sodium 2014-0 No 500 mL, Memoria Chloride 1-06 500 ml/hr, l 0.154 17:48: Infuse [place] MEQ/ML 00 Over: 1 Injectable hr, Route: Solution IV, ONCE, Priority: STAT, Dosing Weight 60.909 kg, Start date: 05/19/14 11:48:00, Duration: 1 doses or times, Stop date: 05/19/14 11:48:00 Sodium 2014-0 No 500 mL, Memoria Chloride 1-06 500 ml/hr, l 0.154 17:48: Infuse [place] MEQ/ML 00 Over: 1 Injectable hr, Route: Solution IV, ONCE, Priority: STAT, Dosing Weight 60.909 kg, Start date: 05/19/14 11:48:00, Duration: 1 doses or times, Stop date: 05/19/14 11:48:00 Promethazin 2015-0 No 12.5 mg, Me moria e 05-19 Route: l 17:32: IVPB, [place] 00 ONCE, Dosing Weight 60.909, kg, Start [...] 5 minutes Hydralazine No Notes: Jhonathan jaime 1- (Same as: l 16:11: Apresoline [place] ) Push over 5 minutes Hydralazine No Notes: Jhonathan jaime 1-06 (Same as: l 16:11: Apresoline [place] ) Push over 5 minutes Acetaminoph 0 No 1 tab, Jhonathan jaime en 325 MG / 05-19 Route: PO, l Hydrocodone 15:51: Drug Form: [place] Bitartrate 00 TAB, 5 MG Oral Dosing Tablet Weight [[place] 60.909, 5/325] kg, Q4H, PRN Pain, Start date: 05/19/14 9:51:00, Duration: 30 day, Stop date: 06/18/14 9:50:00 Acetaminoph 0 No 1,000 mg, Mauricio hammond en 05-19 Route: l 15:51: IVPB, Drug form: INJ, ONCE, Dosing Weight 60.909, kg, PRN Pain Score 1-3, Start date: 05/19/14 9:51:00, Duration: 1 doses or times, Stop date: Limited # of times Ondansetron 2014-0 No 4 mg, Memor ia 05-19 Route: l 15:51: IVP, ONCE, [place] 00 Dosing Weight 60.909, kg, PRN Nausea & Vomiting, Start date: 05/19/14 9:51:00 Naloxone 2014-0 No 0.04 mg, Memor ia 05-19 Route: l 15:51: IVP, [place] 00 Q2MIN, Dosing Weight 60.909, kg, PRN [...] 05-19 Route: l 15:51: IVP, PRN, [place] 00 Dosing Weight 60.909, kg, PRN Benzodiaze [...] TAB, 5 MG Oral Dosing Tablet Weight [[place] 60.909, 5/325] kg, Q4H, PRN Pain, Start date: 05/19/14 9:51:00, Duration: 30 day, Stop date: 06/18/14 9:50:00 Acetaminoph 2014-0 No 1,000 mg, M emoria en 05-19 Route: l 15:51: IVPB, Drug form: INJ, ONCE, Dosing Weight 60.909, kg, PRN Pain Score 1-3, Start date: 05/19/14 9:51:00, Duration: 1 doses or times, Stop date: Limited # of times Ondansetron No 4 mg, Memor ia 05-19 Route: l 15:51: IVP, ONCE, Dosing Weight 60.909, kg, PRN Nausea & Vomiting, Start date: 05/19/14 9:51:00 Naloxone 2014-0 No 0.04 mg, Memor ia 05-19 Route: l 15:51: IVP, [place] 00 Q2MIN, Dosing Weight 60.909, kg, PRN Narcotic Reversal, Start date: 05/19/14 9:51:00, Duration: 8 doses or times, Stop date: Limited # of times Meperidine 2014-0 No 12.5 mg, Mem oria 05-19 Route: l 15:51: IVP, [place] 00 Q30Min, Dosing Weight 60.909, kg, PRN [...] Stop date: Limited # of times Flumazenil 0 No 0.2 mg, Jhonathan jaime 05-19 Route: l 15:51: IVP, PRN, [place] 00 Dosing Weight 60.909, kg, PRN Benzodiaze pine Reversal, Initial dose, Start date: 05/19/14 9:51:00, Duration: 30 day, Stop date: 06/18/14 9:50:00 Fentanyl No 25 Memoria -06 microgram, l 15:51: Route: [place] 00 IVP, Q5Min, Dosing Weight 60.909, kg, PRN Pain Score 4-6, Start date: 05/19/14 9:51:00, Duration: 4 doses or times, Stop date: Limited # of times Acetaminoph 0 No 1 tab, Jhonathan jaime en 325 MG / 05-19 Route: PO, l Hydrocodone 15:51: Drug Form: [place] Bitartrate 00 TAB, 5 MG Oral Dosing Tablet Weight [[place] 60.909, 5/325] kg, Q4H, PRN Pain, Start date: 05/19/14 9:51:00, Duration: 30 day, Stop date: 06/18/14 9:50:00 Acetaminoph 0 No 1,000 mg, M emoria en 05-19 Route: l 15:51: IVPB, Drug form: INJ, ONCE, Dosing Weight 60.909, kg, PRN Pain Score 1-3, Start date: 05/19/14 9:51:00, Duration: 1 doses or times, Stop date: Limited # of times Ondansetron 0 No 4 mg, Memor ia 05-19 Route: l 15:51: IVP, ONCE, [place] 00 Dosing Weight 60.909, kg, PRN Nausea & Vomiting, Start date: 05/19/14 9:51:00 Naloxone 2014-0 No 0.04 mg, Memor ia 05-19 Route: l 15:51: IVP, [place] 00 Q2MIN, Dosing Weight 60.909, kg, PRN Narcotic Reversal, Start date: 05/19/14 9:51:00, Duration: 8 doses or times, Stop date: Limited # of times Meperidine 2014-0 No 12.5 mg, Mem oria 05-19 Route: l 15:51: IVP, [place] 00 Q30Min, Dosing Weight 60.909, kg, PRN [...] 05-19 Route: l 15:51: IVP, PRN, [place] 00 Dosing Weight 60.909, kg, PRN Benzodiaze pine Reversal, Initial dose, Start date: 05/19/14 9:51:00, Duration: 30 day, Stop date: 06/18/14 9:50:00 Fentanyl 2015-0 No 25 Memoria 1-06 microgram, l 15:51: Route: [place] 00 IVP, Q5Min, Dosing Weight 60.909, kg, PRN Pain Score 4-6, Start date: 05/19/14 9:51:00, Duration: 4 doses or times, Stop date: Limited # of times Ancef 2015-0 No 2 gm, Memoria 1-06 Route: l 14:12: IVPB, [place] 00 ONCE, Dosing Weight 60.909, kg, Start date: 05/19/14 8:12:00, Stop date: 05/19/14 8:12:00 Ancef 2015-0 No 2 gm, Memoria 1-06 Route: l 14:12: IVPB, [place] 00 ONCE, Dosing Weight 60.909, kg, Start date: 05/19/14 8:12:00, Stop date: 05/19/14 8:12:00 Ancef 2015-0 No 2 gm, Memoria 1-06 Route: l 14:12: IVPB, [place] 00 ONCE, Dosing Weight 60.909, kg, Start date: 05/19/14 8:12:00, Stop date: 05/19/14 8:12:00 heparin, 2015-0 No 5,000 Memoria porcine 1-06 unit, l 14:09: Route: [place] 00 SUB-Q, ONCE, Dosing Weight 60.909, kg, Start date: 05/19/14 8:09:00, Stop date: 05/19/14 8:09:00 heparin, 2015-0 No 5,000 Memoria porcine 1-06 unit, l 14:09: Route: [place] 00 SUB-Q, ONCE, Dosing Weight 60.909, kg, Start date: 05/19/14 8:09:00, Stop date: 05/19/14 8:09:00 heparin, 2015-0 No 5,000 Memoria porcine 1-06 unit, l 14:09: Route: [place] 00 SUB-Q, ONCE, Dosing Weight 60.909, kg, Start date: 05/19/14 8:09:00, Stop date: 05/19/14 8:09:00 Calcium 2015-0 No 1,000 mL, Memor ia Chloride 1-06 Rate: 25 l 0.0014 13:58: ml/hr, [place] [...] 1-06 Rate: 25 l 0.0014 13:58: ml/hr, [place] MEQ/ML / 00 Infuse Potassium over: 40 Chloride hr, Route: 0.004 IV, Dosing MEQ/ML / Weight Sodium 60.909 kg, Chloride Total 0.103 Volume: MEQ/ML / 1,000, Sodium Start Lactate date: 0.028 05/19/14 MEQ/ML 7:58:00, Injectable Duration: Solution 30 day, Stop date: 06/18/14 7:57:00 Calcium 2015-0 No 1,000 mL, Memor ia Chloride 1-06 Rate: 25 l 0.0014 13:58: ml/hr, [place] [...] ia 2-26 Route: l 20:12: IVP, Drug [place] 00 form: INJ, ONCE, Dosing Weight 54.545, kg, Priority: STAT, Start date: 07/09/13 14:12:00, Stop date: 07/09/13 14:12:00 Ondansetron 2013-0 No 4 mg, Memor ia 2-26 Route: [...] Memoria 2-26 Route: l 19:38: IVP, ONCE, [place] 00 Dosing Weight 54.545, kg, Start date: 07/09/13 13:38:00, Stop date: 07/09/13 13:38:00 Morphine 2014-0 No 6 mg, Memoria 2-26 Route: l 19:38: IVP, ONCE, [place] 00 Dosing Weight 54.545, kg, Start date: 07/09/13 13:38:00, Stop date: 07/09/13 13:38:00 Sodium 2014-0 No 1,000 mL, Memori a Chloride 2-26 Rate: 75 l 0.154 19:36: ml/hr, [place] MEQ/ML 00 Infuse Injectable over: 13.3 Solution [...] 2-26 Rate: 75 l 0.154 19:36: ml/hr, [place] MEQ/ML 00 Infuse Injectable over: 13.3 Solution hr, Route: IV, Dosing Weight 54.545 kg, Total Volume: 1,000, Priority: STAT, Start date: 07/09/13 13:36:00, Duration: 1 doses or times, Stop date: 07/10/13 2:53:00 Sodium 2014-0 No 1,000 mL, Memori a Chloride 2-26 Rate: l 0.9% 19:36: 1,000 [place] (Bolus) IV 00 ml/hr, 1,000 mL Infuse [...] 2-26 mL, Route: l 18:35: IVP, Drug [place] form: INJ, ONCE, Dosing Weight 54.545, kg, [...] ia 2-26 Route: l 17:03: IVP, Drug [place] 00 form: INJ, ONCE, Dosing Weight 54.545, kg, Priority: STAT, Start date: 07/09/13 11:03:00, Stop date: 07/09/13 11:03:00 Morphine 2014-0 No 4 mg, Memoria 2-26 Route: l 17:03: IVP, ONCE, [place] 00 Dosing Weight 54.545, kg, Priority: STAT, Start date: 07/09/13 11:03:00, Stop date: 07/09/13 11:03:00 Sodium 2014-0 No 1,000 mL, Memori a Chloride 2-26 Rate: l 0.9% 17:03: 1,000 [place] (Bolus) IV 00 ml/hr, 1,000 mL Infuse over: 1 hr, Route: IV, Dosing Weight 54.545 kg, Total Volume: 1,000, Priority: STAT, Start date: 07/09/13 11:03:00, Duration: 1 doses or times, Stop date: 07/09/13 12:02:00, Bolus DoseBolus Dose Sodium 2014-0 No 1,000 mL, Memori a Chloride 2-26 Rate: 75 l 0.154 17:03: ml/hr, [place] MEQ/ML 00 Infuse Injectable over: 13.3 Solution [...] Memoria 2- Route: l 17:03: IVP, ONCE, [place] 00 Dosing Weight 54.545, kg, Priority: STAT, [...] 1,000 mL, Memori a Chloride 07-09 Rate: 75 l 0.154 17:03: ml/hr, [place] MEQ/ML 00 Infuse Injectable over: 13.3 Solution hr, Route: IV, Dosing Weight 54.545 kg, Total Volume: 1,000, Priority: STAT, Start date: 07/09/13 11:03:00, Duration: 1 doses or times, Stop date: 07/10/13 0:20:00 Omeprazole 2012- Yes (Active) Me moria 20 MG [...] 3 viruses H1N1, H3N2, and 3,11 influenza 2009- No SYSTEM 0.5 ml, Mem oria virus [...] Route: IM, l vaccine 14:00: Drug Form: Kisha steph 00 INJ, Start date: 01/14/10 9:00:00, Stop date: 01/14/10 9:00:00 pneumococca 2009-0 No SYSTEM 0.5 ml, M emoria l 23-valent 9-03 SYSTEM Route: IM, l vaccine 14:00: Drug Form: Kisha steph 00 INJ, Start date: 01/14/10 9:00:00, Stop date: 01/14/10 9:00:00 pneumococca 2009-0 No SYSTEM 0.5 ml, M emoria l 23-valent 9-03 SYSTEM Route: IM, l vaccine 14:00: Drug Form: Kisha steph 00 INJ, Start date: 01/14/10 9:00:00, Stop date: 01/14/10 9:00:00 pneumococca 2008-1 No SYSTEM 0.5 ml, M emoria l [...] Aspirin 81 Yes Gaudencio 1 tablet [facility] Immunizations Ordered Immunization Filled Immunization Date Status Commen ts Source Name Name [id number] 2020-08-20 Completed Jhonathan rial NA-1273vaxMODERNA 00:00:00 [place] [id number]-2020-08-20 Completed Jhonathan rial NA-1273vaxMODERNA 00:00:00 [place] [id number] 2020-08-20 Completed Jhonathan rial NA-1273vaxMODERNA 00:00:00 [place] [id number] 2020-08-06 Completed Jhonathan rial NA-1273vaxMODERNA 00:00:00 [place] [id number] 2020-08-06 Completed Jhonathan rial NA-1273vaxMODERNA 00:00:00 [place] [id number] 2020-08-06 Completed Jhonathan rial NA-1273vaxMODERNA 00:00:00 [place] influenza virus 2010-02-11 Completed [facility] vaccine, inactivated 17:00:00 Kisha steph influenza virus 2010-02-11 Completed [facility] vaccine, inactivated 17:00:00 Kisha steph influenza virus 2010-02-11 Completed [facility] vaccine, inactivated 17:00:00 Kisha steph influenza virus 2010-02-11 Completed [facility] vaccine, inactivated 17:00:00 [facility] steph influenza virus 2010-02-11 Completed [facility] vaccine, inactivated 17:00:00 [facility] steph influenza virus 2010-02-11 Completed [facility] vaccine, inactivated 17:00:00 [facility] steph pneumococcal 2009-02-28 Completed [facility] 23-valent vaccine 22:05:00 [place] pneumococcal 2009-02-28 Completed [facility] 23-valent vaccine 22:05:00 [place] pneumococcal 2009-02-28 Completed [facility] 23-valent vaccine 22:05:00 [place] pneumococcal 2009-02-28 Completed [facility] 23-valent vaccine 22:05:00 [place] pneumococcal 2009-02-28 Completed [facility] 23-valent vaccine 22:05:00 [place] pneumococcal 2009-02-28 Completed [facility] 23-valent vaccine 22:05:00 [place] Vital Signs Vital Name Observation Time Observation Value Comments Source Systolic blood 2021-07-12 136 mm[Hg] [facility] pressure 18:53:00 [facility] Diastolic blood 2021-07-12 61 mm[Hg] [place] o f pressure 18:53:00 [facility] Heart rate 2021-07-12 68 /min University 18:53:00 [facility] Body height 2021-07-12 152.4 cm University 18:53:00 [facility] Body weight 2021-07-12 60.918 kg [facility] 18:53:00 [facility] BMI 2021-07-12 26.23 kg/m2 University 18:53:00 [facility] Oxygen saturation 2021-07-12 99 /min [facility] Arterial blood 18:53:00 [facility] by Pulse oximetry Branch Systolic (mm Hg) 2020-10-27 [facility] rmann 16:07:00 Diastolic (mm Hg) 2020-10-27 [facility] ermann 16:07:00 Heart Rate 2020-10-27 [facility] n 16:07:00 Respitory Rate 2020-10-27 [facility]ph 16:07:00 Height 2020-10-27 149.86 cm [facility] Obi n 16:07:00 Weight 2020-10-27 [facility] n 16:07:00 BMI Calculated 2020-10-27 [facility] 16:07:00 Systolic (mm Hg) 2020-08-27 [facility] rmann 16:40:00 Diastolic (mm Hg) 2020-08-27 [facility] ermann 16:40:00 Heart Rate 2020-08-27 [facility] n 16:40:00 Respitory Rate 2020-08-27 [facility] 16:40:00 Weight 2020-08-27 [facility] n 16:40:00 Systolic (mm Hg) 2020-06-25 [facility] rmann 20:23:00 Diastolic (mm Hg) 2020-06-25 [facility] ermann 20:23:00 Heart Rate 2020-06-25 [facility] n 20:23:00 Respitory Rate 2020-06-25 [facility]ph 20:23:00 Height 2020-06-25 144.78 cm [facility] Obi n 20:23:00 Weight 2020-06-25 [facility] n 20:23:00 BMI Calculated 2020-06-25 [facility] 20:23:00 BP Systolic 2019-04-09 146 mm[Hg] Location: [facility]; [facility] 14:07:00 Position: [place] [facility] BP Diastolic 2019-04-09 82 mm[Hg] Location: [facility]; [facility] 14:07:00 Position: [place] [facility] Height [...] Physician s Respiration Rate 2019-04-09 18 /min [facility] 14:07:00 [place] [facility] O2 SAT 2019-04-09 98 % Source: [facility] 14:07:00 [place] [facility] Respitory Rate 2019-04-08 [facility] 20:00:00 Systolic (mm Hg) 2019-04-08 [facility] 20:00:00 Diastolic (mm Hg) 2019-04-08 [facility] ermann 20:00:00 Respitory Rate 2019-04-08 [facility] steph 19:45:00 Systolic (mm Hg) 2019-04-08 [facility] 19:45:00 Diastolic (mm Hg) 2019-04-08 [facility] ermann 19:45:00 Respitory Rate 2019-04-08 [facility] 19:44:00 Systolic (mm Hg) 2019-04-08 [facility] Elvin rmann 19:44:00 Diastolic (mm Hg) 2019-04-08 [facility] ermann 19:44:00 Weight 2019-04-08 Fabiano Crocker n 17:30:00 BMI Calculated 2019-04-08 [facility] Kisha steph 17:30:00 Heart Rate 2019-04-08 Fabiano Crocker n 17:30:00 Height 2019-04-07 154.94 cm Fabiano Crocker n 19:22:00 BP Systolic 2019-03-19 145 mm[Hg] Location: [facility] 15:20:00 Position: [place] [facility] BP Diastolic 2019-03-19 72 mm[Hg] Location: [facility] 15:20:00 Position: [place] [facility] Weight 2019-03-19 136.8 [lb_av] [place] of 15:20:00 [place] [facility] Body Mass Index 2019-03-19 25.85 kg/m2 University o f Calculated 15:20:00 [place] [facility] Heart Rate 2019-03-19 61 /min [facility] 15:20:00 [place] [facility] Respiration Rate 2019-03-19 18 /min [facility] 15:20:00 [place] [facility] O2 SAT 2019-03-19 99 % Source: [facility] 15:20:00 [place] [facility] BP Systolic 2018-03-05 133 mm[Hg] [facility] 12:45:00 Position: [place] [facility] BP Diastolic 2018-03-05 68 mm[Hg] [facility] 12:45:00 Position: [place] [facility] Height 2018-03-05 61 [in_us] [facility] 12:45:00 [place] [facility] Weight 2018-03-05 134.2 [lb_av] [facility] 12:45:00 [place] [facility] Body Mass Index 2018-03-05 25.36 kg/m2 University o f Calculated 12:45:00 [place] [facility] Heart Rate 2018-03-05 68 /min Location: [facility] 12:45:00 Brachial [place] [facility] Artery; Respiration Rate 2018-03-05 18 /min [facility] 12:45:00 [place] [facility] BP Systolic 2017-12-31 182 mm[Hg] [facility]: [facility] 09:49:00 Position: [place] [facility] BP Diastolic 2017-12-31 72 mm[Hg] [facility] 09:49:00 Position: [place] [facility] Height 2017-12-31 61 [in_us] [facility] 09:49:00 [place] [facility] Weight 2017-12-31 132 [lb_av] [facility] 09:49:00 [place] [facility] Body Mass Index 2017-12-31 24.94 kg/m2 University o f Calculated 09:49:00 [place] [facility] Heart Rate 2017-12-31 62 /min Location: [facility] 09:49:00 Radial; [place] [facility] Quality: Normal BP Systolic 2017-11-29 148 mm[Hg] [facility] 13:09:00 Position: [place] [facility] S[facility] BP Diastolic 2017-11-29 76 mm[Hg] Location: [facility] 13:09:00 Position: [place] [facility] Height 2017-11-29 61 [in_us] [place] of 13:09:00 [place] [facility] Weight 2017-11-29 131 [lb_av] [facility] 13:09:00 [place] [facility] Body Mass Index 2017-11-29 24.75 kg/m2 University o f Calculated 13:09:00 [place] [facility] Temperature 2017-11-29 98.2 [degF] Method: Oral [facility] 13:09:00 [place] [facility] Heart Rate 2017-11-29 64 /min Location: [place] of 13:09:00 Brachial [place] [facility] Artery; Respiration Rate 2017-11-29 18 /min [facility] 13:09:00 [place] [facility] Systolic (mm Hg) [...] [facility] 20:15:00 Heart Rate 2017-11-22 [facility] O[facility] n 14:55:00 BMI Calculated 2017-11-22 [facility] 14:55:00 Weight 2017-11-22 [facility] 14:55:00 Height 2017-11-20 154.94 cm Fabiano Beardan n 18:07:00 BP Systolic 2017-11-13 175 mm[Hg] [facility] 12:56:00 Position: [place] [facility] BP Diastolic 2017-11-13 76 mm[Hg] [facility] 12:56:00 Position: [place] [facility] Height 2017-11-13 61 [in_us] [facility] 12:56:00 [place] [facility] Weight 2017-11-13 133 [lb_av] [facility] 12:56:00 [place] [facility] Body Mass Index 2017-11-13 25.13 kg/m2 University o f Calculated 12:56:00 [place] [facility] Temperature 2017-11-13 97.7 [degF] Method: Oral [place] of 12:56:00 [place] [facility] Heart Rate 2017-11-13 60 /min [facility] 12:56:00 [place] [facility] BP Systolic 2017-10-19 147 mm[Hg] Location: [facility]; [facility] 13:36:00 Position: [place] [facility] S[facility] BP Diastolic 2017-10-19 66 mm[Hg] Location: LUE; [facility] 13:36:00 Position: [place] [facility] Height 2017-10-19 61 [in_us] [facility] 13:36:00 [place] [facility] Weight 2017-10-19 131 [lb_av] [facility] 13:36:00 [place] [facility] Body Mass Index 2017-10-19 24.75 kg/m2 University o f Calculated 13:36:00 [place] [facility] Temperature 2017-10-19 97.7 [degF] Method: Oral [facility] 13:36:00 [place] [facility] Heart Rate 2017-10-19 61 /min Location: L [facility] 13:36:00 Radial; [place] [facility] Systolic (mm Hg) 2017-03-01 [facility] [...] [facility] 15:45:00 Heart Rate 2016-02-07 Fabiano Beardan n 18:16:00 Temperature Oral 2016-02-07 98.1 F [...] Obi n 20:19:00 Height 2012-12-20 154.94 cm Fabiano Beardan n 20:19:00 Procedures Procedure Date / Time Performing Clinician Source Performed Stent removal 2015-09-28 05:00:00 Fabiano garnett Esophagogastroduodenoscopy 2014-08-11 05:00:00 Mauricio Hidalgo <sup>8</sup> Operation 2014-05-14 00:00:00 [facility] Her garnett Lloyd fundoplication 2010-01-13 05:00:00 Princess beebe [place] Lloyd fundoplication 2010-01-13 05:00:00 Princess Martin History of Laparosc 2010-01-12 00:00:00 [facility] Esophagogastric Physicians Fundoplasty For Paraesoph Hernia Repair W/ Mesh History of Pacemaker 2004-08-12 00:00:00 [facility] Placement Physicians History of Cholecystectomy 1993-05-14 00:00:00 [facility] Laparoscopic Physicians Colon operation 1991-05-14 00:00:00 [facility] Her garnett <sup>5</sup> Colon 1991-05-14 00:00:00 [facility] Her garnett operation<sup>1</sup> History of Total Abdominal 1981-05-14 00:00:00 U [facility] Colectomy Physicians History of Hysterectomy 1977-05-14 00:00:00 [facility] Physicians Hysterectomy<sup>6</sup> Memananda l [place] Insertion of esophageal [facility] [place] stent<sup>9</sup> Laparoscopic [facility] [place] cholecystectomy<sup>9</sup > Appendectomy <sup>1</sup> Princess al [place] Breast operation [facility] Obi n <sup>2</sup> Cardiac pacemaker [facility] Adela nn procedure <sup>3</sup> section [facility] Obi n <sup>4</sup> Hysterectomy <sup>6</sup> [facility] [place] Laparoscopic [facility] [place] cholecystectomy <sup>7</sup> [facility] [place] section<sup>5</sup> Knee replacement [facility] Appendectomy<sup>2</sup> [facility]oria [facility] [place] Breast [facility] operation<sup>3</sup> Cardiac pacemaker [facility] procedure<sup>4</sup> Colonoscopy<sup>7</sup> [facility] [place] Encounters Start End Encounter Admission Attending Care Care Encounter Source Date/Time Date/Time Type Type Clinicians Facility Department ID 2019-03-21 Outpatient [id number] MH 14:01:16 [facility] 2018-10-16 Outpatient [facility] [id number] MH 15:44:11 [facility] Center 2021-07-15 2021-07-15 [facility]phone [facility] [id number] Univers 00:00:00 00:00:00 [facility] [id number] it y of [place] [id number] Otilio as MASOUD?BLEA [phone] [place] mollyabiel ELKAI 198 [facility] OFFICE [facility] 2021-07-12 2021-07-12 [facility] [id number] Univers 13:00:00 13:45:47 [facility] 2021-07-12 2021-07-12 Office [facility] [id number] Univers 13:00:00 13:15:00 Visit [facility] [id number] it y of [place] [id number] Otilio as MASOUD?BLEA [phone] [place] fernanda GONG [address] [place] [address] OFFICE [facility] 2021-01-27 2021-01-27 Outpatient MHIE YOLETTE [id number] Memoria 11:00:00 11:00:00 08 [facility] 2020-10-27 2020-10-28 Outpatient nullFlavo [facility] [id number] Memoria 16:30:00 04:59:59 r [facility] 07 [facility] 2020-08-27 2020-08-28 Outpatient nullFlavo [facility] [id number] Memoria 16:30:00 04:59:59 r [facility] 06 [facility] 2020-08-17 2020-08-18 Outpatient nullFlavo [facility] [id number] Memoria 15:36:00 04:59:00 chapo Hidalgo 57 [facility] 2020-08-17 2020-08-17 Outpatient NANCY [facility] [id number] [facility] 10:36:00 23:59:00 BEBETO 2020-07-30 2020-07-30 Ambulatory nullFlavo MNA [id number] Memoria 15:45:00 15:45:00 Pre-Reg r Neurology 05 l Amirah Hidalgo 2020-07-22 2020-07-24 Outside nullFlavo MNA [id number] Memoria 19:10:08 05:59:59 Medical r Neurology 02 l Records Amirah Hidalgo 2020-07-16 2020-07-16 Ambulatory nullFlavo MNA [id number] Memoria 19:30:00 19:30:00 Pre-Reg r Neurology 03 l Amirah Hidalgo 2020-07-07 2020-07-09 Outside nullFlavo MNA [id number] Memoria 20:33:59 05:59:59 Medical r Neurology 01 l Records Amirah Hidalgo 2020-07-07 2020-07-09 Outside nullFlavo MNA [id number] Memoria 20:32:33 05:59:59 Medical r Neurology 00 l Records Amirah Hidalgo 2020-06-25 2020-06-26 Outpatient nullFlavo MNA [id number] Memoria 22:15:00 05:59:59 r Neurology 04 l Amirah Hidalgo 2020-06-03 2020-06-03 Telephone [facility] [id number] 00:00:00 00:00:00 [facility] [id number] Surgical [id number] [facility] [phone] [address] 2020-03-12 2020-03-12 Outpatient [facility] [id number] [place] 00:00:00 00:00:00 SAMEER 632 Method i 2019-12-31 2019-12-31 [facility] [id number] [place] 00:00:00 00:00:00 SAMEER 570 [facility] 2019-12-31 2019-12-31 [facility] [id number] [place] 00:00:00 00:00:00 SAMEER 000 Method i 2019-05-20 2019-05-21 Outpatient nullFlavo [facility] [id number] Memoria 14:43:00 05:59:00 r [place] 56 l [facility] 2019-05-20 2019-05-20 Outpatient MHSE MHSE [id number] MH 08:43:00 08:43:00 [facility] a [facility] 2019-04-09 2019-04-09 Appointmen CHARY DANIEL Thoracic [id number] Univers 14:00:00 14:00:00 t; OLE DANIEL Surgery - itfaith Eran HANDY M.D. Physici ans 2019-04-08 2019-04-08 Bedded [facility] [id number] Memoria 16:02:00 20:30:00 Outpatient r [place] 55 l [facility] 2019-04-07 2019-04-08 [facility] [id number] Memoria 16:26:00 05:59:00 r [place] 54 l [facility] 2019-03-19 2019-03-19 AppointCHARY Viveros Thoracic [id number] Univers 15:00:00 15:00:00 t; OLE DANIEL [facility] HANDY [facility] Doris moreno M.D. Physici ans 2019-03-05 2019-03-05 [facility] CHARY BRISENO UTP [id number] Univers 10:45:00 10:45:00 t; Eran MATTHEW [place], [place] Eran MATTHEW Physi ans 2019-02-12 2019-02-12 Outpatient Janie Duval [id number] [facility] 14:00:00 14:00:00 [facility] 2019-02-03 2019-02-03 [facility] [id number] 09:00:00 09:00:00 t [facility] 2018-10-30 2018-10-30 [facility] [id number] [facility] 15:00:00 15:00:00 t [facility] 2018-10-25 2018-10-25 [facility] [id number] 08:30:00 08:30:00 t [facility] ent Clinics 2018-10-23 2018-10-24 Outpatient [facility] [id number] Memoria 19:23:00 04:59:00 r [place] 53 l [facility] 2018-08-26 2018-08-26 [facility] [id number] 14:30:00 14:30:00 t [facility] ent Clinics 2018-05-13 2018-05-13 [facility] [id number] [facility] 14:30:00 14:30:00 t [facility] ent [facility] 2018-05-01 2018-05-01 [facility] [id number] 09:30:00 09:30:00 t [facility] 2018-03-05 2018-03-05 [facility] [id number] [facility] 13:15:00 13:15:00 t; [place] [address] Feliciano MATTHEW M.D. Physi ci ans 2018-03-05 2018-03-05 Appointmen FINNMOCCASIN [facility] [id number] Univers 13:15:00 13:15:00 t; [place] Eran MATTHEW Physi ci ans 2017-12-31 2017-12-31 [id number] Univers 09:45:00 09:45:00 t; Eran MATTHEW [facility] Feliciano MATTHEW M.D. Physi ci ans 2017-11-29 2017-11-30 Outpatient [facility] [id number] Memoria 15:54:00 04:59:00 r [place] 00 l [facility] 2017-11-29 2017-11-29 [facility] [id number] [facility] 14:15:00 14:15:00 t; Eran MATTHEW Multi-Speci [address] Eran MATTHEW Physi ci ans 2017-11-22 2017-11-23 Day nullFlavo [facility] [id number] Memoria 13:47:00 04:59:00 Surgery r [place] 52 l [facility] 2017-11-13 2017-11-13 [facility] CHARY MCMAHAN [place] [id number] Univers 14:00:00 14:00:00 t; ROBERT MCMAHAN M.D. Surgery ity of Eran JONES Specialty Otilio as Physici ans 2017-10-19 2017-10-19 [facility] FINN [facility] [id number] Univers 13:30:00 13:30:00 t; Eran MATTHEW it of [place], [place] Eran MATTHEW Physi ci ans 2017-08-01 2017-08-02 Outpatient nullFlavo [facility] [id number] Memoria 17:40:00 04:59:00 r [place] 80 l [facility] 2017-07-10 2017-07-11 Outpatient nullFlavo [facility] [id number] Memoria 18:00:00 05:59:00 r [place] 51 l [facility] 2017-05-21 2017-05-22 Outpatient nullFlavo [facility] [id number] Memoria 17:13:00 05:59:00 r [place] 50 l [facility] 2017-02-27 2017-03-01 Inpatient nullFlavo [facility] [id number] Memoria 11:18:00 23:53:00 r [place] 48 l [facility] 2017-02-14 2017-02-14 Bedded nullFlavo [facility] [id number] Memoria 16:21:00 22:15:00 Outpatient r [place] 49 l [facility] 2017-02-12 2017-02-12 [facility]ule[facility] [id number] Univers 08:00:00 08:00:00 t; Eran MATTHEW itfaith [place], [place] Eran MATTHEW Physi ci ans 2016-09-14 2016-09-14 Pee BRISENO [facility] [id number] Univers 10:15:00 10:15:00 t; Eran MATTHEW [place], [place] Eran MATTHEW Physi ci ans 2016-08-23 2016-08-23 Bedded nullFlavo [facility] [id number] Memoria 15:45:00 19:26:00 Outpatient r [place] 47 l [facility] 2016-06-27 2016-06-27 [facility] [id number] Univers 14:00:00 14:00:00 t; Eran MATTHEW [place], [place] Eran MATTHEW Physi ci ans 2016-06-22 2016-06-23 Outpatient nullFlavo [facility] [id number] Memoria 12:54:00 05:59:00 r [place] 46 l [facility] 2016-06-19 2016-06-19 Bedded nullFlavo [facility] [id number] Memoria 14:36:00 18:55:00 Outpatient r [place] 45 l [facility] 2016-06-14 2016-06-15 Outpatient nullFlavo [facility] [id number] Memoria 18:51:00 05:59:00 r [place] 44 l [facility] 2016-03-28 2016-03-29 Outpatient nullFlavo [facility] [id number] Memoria 18:40:00 05:59:00 r [place] 43 [facility] 2016-02-21 2016-02-21 Outpatient MHIE MHIE [id number] Memoria 15:15:00 15:15:00 02 l [place] 2016-02-21 2016-02-21 Outpatient MHIE MHIE [id number] Memoria 14:30:00 14:30:00 01 l [place] 2016-02-15 2016-02-15 Bedded nullFlavo [facility] [id number] Memoria 12:35:00 16:29:00 Outpatient r [place] 42 l [facility] 2015-09-28 2015-09-28 Bedded nullFlavo [facility] [id number] Memoria 14:13:00 20:30:00 Outpatient r [place] 40 l [facility] 2015-07-27 2015-07-28 Outpatient nullFlavo [facility] [id number] Memoria 15:51:00 04:59:00 r [place] 75 l [facility] 2015-07-06 2015-07-07 OBS nullFlavo [facility] [id number] Memoria 22:33:00 22:10:00 Observatio r [place] 54 l n Patient [facility] 2015-07-06 2015-07-07 Outpatient nullFlavo [facility] [id number] Memoria 18:13:00 05:59:00 r [place] 39 l [facility] 2015-07-02 2015-07-02 OBS Day nullFlavo [facility] [id number] Memoria 16:44:00 23:22:00 Surgery r [place] 38 l [facility] 2015-07-01 2015-07-02 Outpatient nullFlavo [facility] [id number] Memoria 19:40:00 05:59:00 r [place] 37 l [facility] 2015-06-30 2015-07-01 Outpatient nullFlavo [facility] [id number] Memoria 19:12:00 05:59:00 r [place] 36 l [facility] 2014-12-29 2014-12-30 Outpatient nullFlavo [facility] [id number] Memoria 12:32:00 04:59:00 r [place] 35 l [facility] 2014-08-24 2014-08-25 Outpatient nullFlavo [facility] [id number] Memoria 19:49:00 04:59:00 r [place] 34 l [facility] 2014-08-11 2014-08-11 OBS Day nullFlavo [facility] [id number] Memoria 10:30:00 17:05:00 Surgery r [place] 33 l [facility] 2014-06-03 2014-06-04 Outpatient nullFlavo [facility] [id number] Memoria 17:26:00 05:59:00 r [place] 21 l [facility] 2014-05-19 2014-05-20 OBS nullFlavo [facility] [id number] Memoria 17:52:00 22:00:00 Observatio r [place] 32 l n Patient [facility] 2014-04-28 2014-04-28 Bedded nullFlavo [facility] [id number] Memoria 12:12:00 16:10:00 Outpatient r [place] 30 l [facility] 2014-04-06 2014-04-07 Outpatient nullFlavo [facility] [id number] Memoria 18:28:00 05:59:00 r [place] 29 l [facility] 2013-07-09 2013-07-09 EC nullFlavo [facility] [id number] Memoria 16:18:00 21:33:00 Emergency r [place] [id number] l [address] 2013-07-09 2013-07-09 Emergency nullFlavo [id number] Memoria 10:18:00 15:33:00 r [facility] 28 [facility] 2013-07-07 2013-07-07 Outpatient nullFlavo [id number] Memoria 08:22:00 08:22:00 r [facility] 27 [facility] 2013-06-19 2013-06-19 Outpatient nullFlavo [id number] Memoria 13:36:00 23:59:00 r [facility] 26 [facility] 2012-12-27 2012-12-27 Outpatient nullFlavo [id number] Memoria 16:26:00 16:26:00 [facility] 25 [facility] 2012-12-26 2012-12-26 Outpatient nullFlavo [id number] Memoria 15:38:00 15:38:00 r [facility] 23 [facility] 2012-12-23 2012-12-23 IAN nullFlavo [id number] Memoria 05:58:00 10:05:00 r [facility] 24 [facility] 2013-10-14 2012-10-16 EST, SOILA CM [id number] emoria 09:00:00 00:06:10 Provider: Adela Tate Jossue, Status: Pen, Time: 9:00 AM 2012-10-15 2012-10-16 AUDIT SOILA CM [id number] emoria 19:06:31 00:06:10 deborah Hidalgo Results Test Description Test Time Test Comments Results Result Comments Source CHEM PANEL 2017-11-22 15:10:00 Test Item Value Reference Range Interpretation Comme nts B/C Ratio (test code = B/C Ratio) 29 1 6-25 [facility] [id number] 15:10:00 Test Item Value Reference Range Interpretation Comments A/G Ratio (test code = A/G Ratio) 0.8 1 0.7-1.6 [facility] Oscar NWSPG8049-30-98 15:10:004.2[facility] PANEL 2017-11-22 15:10:0010.0[facility]annCHEM IWWUM0364-65-28 15:10:0058[facility]annCHEM IXKKS2275-97-08 15:10:0095[facility]annCHEM PVYFQ4168-78-28 15:10:000.5[facility]annCHEM TPDGD6694-61-72 15:10:0011[facility]annCHEM PPRQF6035-73-48 15:10:0080[facility]annCHEM NESOA1379-71-56 15:10:003.5 [facility] EZJYG2520-82-88 15:10:007.7[facility]annCHEM PANEL 2017-11-22 15:10:004.0[facility]annCHEM JKBHZ2799-91-58 15:10:03030Ztonsmxg HermannCHEM VVGCV1284-56-07 15:10:0024[facility] HermannCHEM GKEZJ6304-86-10 15:10:000.97[facility] HermannCHEM RLHPF0231-70-97 15:10:0026[facility] HermannCHEM SUBPH7544-55-62 15:10:19626[place] HermannCHEM KDUNV6157-00-01 15:10:008.6 [facility]annCHEM PQXAB7383-98-77 15:10:0028[facility] HermannHEMATOLOGY 2017-11-22 15:10:000.3[facility]orial IpeoteuAZLPPBIBLS7928-11-21 15:10:005.0[facility] PpzmucqIIPXSZAAMF8517-51-97 15:10:000.3[facility]orial BkyivhrVCBDEVNELA5606-14-37 15:10:000.4[facility] FjysszjVPJEZIWDPI1253-53-74 15:10:003.8[facility] [place] SVIIYKTLME8036-34-72 15:10:002.3[facility] DftwqphYGTRKQNJPU9233-26-34 15:10:00 Normal (11/22/17 10:10 AM)[facility] BzktsbhFHUNTPEGGY7170-42-37 15:10:00Normal (7/12/18 10:10 AM)[facility] ZacfrirOJGJYXGKZR8836-96-52 15:10:0058.7[facility] PrxgawuOPVYCCTYMP6894-40-10 15:10:0035.6[facility] CullqnjLEGOMWOKMY0459-85-79 15:10:0034.5[facility] PosqyrjYLHQETHPYJ1053-47-46 15:10:00 Test Item Value Reference Range Interpretation Comments MCH (test code = MCH) 31.2 pg 27.0-31.0 Memorial LklrnloPNKPHVVZDR0903-49-42 15:10:0090.6[facility] HermannHEMATOLOGY 2017-11-22 15:10:0036.4[facility] TwacvzxPDGEENZYZP6057-87-71 15:10:0012.5[facility] HhwktsoPLWFVMDDAV1522-26-59 15:10:009.4[facility] IgndgjwAHMBILGRVS8688-95-76 15:10:33008Brjbykcu RadtbxaLMMQGDRFKX3115-02-36 15:10:0013.0[facility] [place] DKEXUBXUQA2732-34-14 15:10:004.02[facility] TatyridQXSTUOZOHD5964-90-62 15:10:00 6.5[facility] HermannCHEM GYWGY7309-72-65 15:10:00 Test Item Value Reference Range Interpretation Comments B/C Ratio (test code = B/C Ratio) 29 1 6-25 [facility]annCHEM CTSXS4475-54-36 15:10:00 Test Item Value Reference Range Interpretation Comments A/G Ratio (test code = A/G Ratio) 0.8 1 0.7-1.6 [facility]annCHEM SHWBN5024-68-02 15:10:004.2[facility] HermannCHEM PANEL 2017-11-22 15:10:0010.0[facility] HermannCHEM AQAMM9798-95-67 15:10:0058[facility] HermannCHEM KADEB2753-63-40 15:10:0095[facility] HermannCHEM BMDYW8081-04-37 15:10:000.5[facility]annCHEM PPFFK6152-90-78 15:10:0011[facility]annCHEM LJRJE7559-11-36 15:10:0080[facility]annCHEM IIXIK8669-76-49 15:10:003.5 [facility]annCHE[facility] GZFCS2193-42-87 15:10:007.7[facility] HermannCHEM PANEL 2017-11-22 15:10:004.0[facility] HermannCHEM TWTFA3117-32-67 15:10:91156Ecaybvjc HermannCHEM RPKWT2413-16-46 15:10:0024[facility] HermannCHEM RAMGY5771-95-20 15:10:000.97[facility] HermannCHEM KXRFG9866-04-12 15:10:0026[facility] HermannCHEM FKSBF2115-38-59 15:10:28949Pakotwuc HermannCHEM KHIQN6612-70-19 15:10:008.6 [facility]annCHEM MIAMB0266-34-80 15:10:0028[facility] HermannHEMATOLOGY 2017-11-22 15:10:000.3[facility] FezhyjwMSKMNCLZCG1136-25-13 15:10:005.0[facility] CnvcxudYWJSBYVMER2524-51-94 15:10:000.3[facility]orial MbpbighAZVJTXMYXP7753-11-71 15:10:000.4[facility] TuiyxyuLJCODRXDEM6065-96-17 15:10:003.8[facility] [place] WGEWIHBUJE3144-51-55 15:10:002.3[facility] JdlatoePOBCOLBHLK3565-11-72 15:10:00 Normal (11/22/17 10:10 AM)[facility] RpjmveiGLNTVBNCAO5257-88-51 15:10:00Normal (11/22/17 10:10 AM)[facility] UvyfmhnJHPVDOGNFJ2788-57-19 15:10:0058.7[facility] AxcmtnhJADNGJHOYC8829-73-79 15:10:0035.6[facility] XnhetswJUFWQSIZSN8467-24-35 15:10:0034.5[facility] BlkmcblXDSDRAUAQA4695-30-04 15:10:00 Test Item Value Reference Range Interpretation Comments MCH (test code = MCH) 31.2 pg 27.0-31.0 Memorial HvrhdfmACKEWDHYAC0412-07-39 15:10:0090.6[facility] HermannHEMATOLOGY 2017-11-22 15:10:0036.4[facility] JshdmuaMKZCNRILQT1559-09-09 15:10:0012.5[facility] SapgiiqRONOIVTABB3246-22-74 15:10:009.4[facility] CuzvkcdUXUKAICXHE8623-34-56 15:10:21893Ygtnftwi GjxvhjnWSNCKLLEDK4095-75-89 15:10:0013.0[facility] [place] QGNAAYQBZO3360-24-49 15:10:004.02[facility] InqlygbGQOEBKFVKJ9533-55-40 15:10:00 6.5[facility] HermannCHEM ZZVLA8564-27-18 15:10:00 Test Item Value Reference Range Interpretation Comments B/C Ratio (test code = B/C Ratio) 29 1 6-25 [facility] HermannCHEM OKPMQ5035-39-77 15:10:00 Test Item Value Reference Range Interpretation Comments A/G Ratio (test code = A/G Ratio) 0.8 1 0.7-1.6 [facility]annCHEM QFNDM5106-83-57 15:10:004.2[facility] HermannCHEM PANEL 2017-11-22 15:10:0010.0[facility] HermannCHEM KYMFO0672-78-14 15:10:0058[facility] HermannCHEM YYWFD4240-61-41 15:10:0095[facility] HermannCHEM SPDUV4282-91-12 15:10:000.5[facility] HermannCHEM AJTKK4894-40-98 15:10:0011[facility] HermannCHEM YRMTM6110-18-70 15:10:0080[facility] HermannCHEM THUPP2754-15-72 15:10:003.5 [facility]annCHEM OXPXW2535-69-25 15:10:007.7[facility] HermannCHEM PANEL 2017-11-22 15:10:004.0[facility] HermannCHEM RAAJV0664-13-53 15:10:93456Cyvtjzwg HermannCHEM TQHYV0636-54-77 15:10:0024[facility] HermannCHEM QJJOU7339-85-58 15:10:000.97[facility] HermannCHEM QEVHI6567-49-26 15:10:0026[facility] HermannCHEM UHXBQ7746-69-91 15:10:70957Lgzapmji HermannCHEM HLNFF7458-26-85 15:10:008.6 [facility] HermannCHEM JBGAC6511-50-91 15:10:0028[facility] HermannHEMATOLOGY 2017-11-22 15:10:000.3[facility] FdpmhinYWQSHLYBNK9783-91-78 15:10:005.0[facility] VqtrnqqYUKYTBRTXT7110-83-44 15:10:000.3[facility] JmpfvauDOSJAGSOWI5964-49-26 15:10:000.4[facility] EswymcaGNLNSWOMTS2064-92-76 15:10:003.8[facility] [place] YSDDZZGKJR4666-43-92 15:10:002.3[facility] AmvvixiHXENHUGWKL0782-67-48 15:10:00 Normal (11/22/17 10:10 AM)[facility] AzpamosPXTZDNUQXR3972-95-41 15:10:00Normal (11/22/17 10:10 AM)[facility] BrivhhhWVIYYJYNWX2876-56-17 15:10:0058.7[facility] DrhsndxQYTGIMKSKU6235-13-72 15:10:0035.6[facility] LqraobrOQHLMCEZZZ7157-77-39 15:10:0034.5[facility] HjkpsbaQUDLSTOWCX5180-00-92 15:10:00 Test Item Value Reference Range Interpretation Comments MCH (test code = MCH) 31.2 pg 27.0-31.0 [facility] VognxcyKCHNSCWKTB4257-64-03 15:10:0090.6[facility] HermannHEMATOLOGY 2017-11-22 15:10:0036.4[facility] SwoihpcGGDTBJQVDC7459-00-62 15:10:0012.5[facility] GdkwlffUXRGUNBCXH7167-53-12 15:10:009.4[facility] PzkvxleYNIIOHDOKH5783-01-19 15:10:35942Dljsxkld VfqumfnMJZJOFBXEP5421-87-30 15:10:0013.0[facility] [place] POCAFXKHJD3721-84-38 15:10:004.02[facility] KqbgwlwGBVSNDRBCZ6645-38-02 15:10:00 6.5[facility] VhcnhngXMLIEEIKZI7903-72-26 08:23:0077.8[facility] HermannHEMATOLOGY 2017-03-01 08:23:0012.1[facility] FayphslRYBFRWTVTY8511-18-77 08:23:000.9[facility] BodvprqXXGMGJQNFJ5622-21-64 08:23:001.2[facility] VublwwqIVKFAGABVX8508-99-13 08:23:007.4[facility] AlwxeuiPSSPUTDHZZ3100-74-24 08:23:000.1[facility] [place] DVFKYINXXH6093-69-98 08:23:009.9[facility] PbavbgtVBZTBHUKLW2717-99-78 08:23:000.1 [facility] LkinzpjSRUGRCGLMM5094-25-06 08:23:05431Ucmyrpsq HermannHEMATOLOGY 2017-03-01 08:23:009.7[facility] McosfgmJCQNKIHUUO9591-38-08 08:23:0013.0[facility] SsqrinwXZGZZOPKTT5778-51-42 08:23:00 Test Item Value Reference Range Interpretation Comments MCH (test code = MCH) 32.2 pg 27.0-31.0 [facility] VkslrciBHLCVIWELS9502-53-89 08:23:0034.7[facility] HermannHEMATOLOGY 2017-03-01 08:23:0028.9[facility] GnmrsdjWYYOSWAKKD6264-76-99 08:23:0010.1[facility] OvcinlrCQSRGHRHDA4038-46-42 08:23:003.12[facility] DahfwlnUGKQCZVZFQ6602-09-43 08:23:009.5[facility] EutbwdzMEXPGJLKBC4921-95-54 08:23:0092.6[facility] [place] ZYFEPCAQSC4622-41-84 08:23:0077.8[facility] WngnrdeGITDDUKGQJ2566-32-06 08:23:00 12.1[facility] XvhodryQSRSNGWLLJ7665-08-76 08:23:000.9[facility]annHEMATOLOGY 2017-03-01 08:23:001.2[facility] VssvoyhCTZPQPFWZF2433-97-77 08:23:007.4[facility] WdpeuboWUXYITAYVA1555-49-20 08:23:000.1[facility] ExvqnzyDTSRDTAPAN5575-00-92 08:23:009.9[facility] KeevapsXAKVIUCILS4541-63-62 08:23:000.1[facility] [place] DBJMXUDWMB6231-56-15 08:23:87581Gbnywdof PguzwomWCIKWUDSWQ4866-59-90 08:23:009.7 Memorial DrdyeamYFQSIUNKTG5594-51-92 08:23:0013.0[facility]annHEMATOLOGY 2017-03-01 08:23:00 Test Item Value Reference Range Interpretation Comments MCH (test code = MCH) 32.2 pg 27.0-31.0 [facility] StwnecrWVQUYVYOXJ3082-38-41 08:23:0034.7[facility] HermannHEMATOLOGY 2017-03-01 08:23:0028.9[facility] RepzxhwDOMZORSDZB5472-56-48 08:23:0010.1[facility] SnrymijQPQNYPDIKI7020-19-13 08:23:003.12[facility] VxunrqrACTXPCWMEM4032-56-26 08:23:009.5[facility] FbcdfbmSOCEJVVQPA5608-90-43 08:23:0092.6[facility] [place] BEIAHPGNSS5952-59-88 08:23:0077.8[facility] UvghuvcTEFAWVKFIA7619-12-08 08:23:00 12.1[facility] FziyqycLJXFORJLHN0978-90-38 08:23:000.9[facility] 2017-03-01 08:23:001.2[facility] OpctbtuYWCJYNZRNP4243-61-06 08:23:007.4[facility] OkqcxjzCTSQMADABW7056-98-35 08:23:000.1[facility] ElfwqctRMECLHJQNU7874-24-34 08:23:009.9[facility] BfbkyniOFTWCJOOAJ2945-06-55 08:23:000.1[facility] [place] WHVLPGYSVQ1711-98-87 08:23:47796Nutwopft BlsnkwbDXLPVZAUAH4466-84-73 08:23:009.7 [facility] JozizalZJZEZIVEYL0745-05-74 08:23:0013.0[facility] 2017-03-01 08:23:00 Test Item Value Reference Range Interpretation Comments MCH (test code = MCH) 32.2 pg 27.0-31.0 [facility] LossouzCPCDJDGRSF6270-98-84 08:23:0034.7[facility] 2017-03-01 08:23:0028.9[facility] GlngcghHRJKRTMGRV0809-74-70 08:23:0010.1[facility] ZrujehsQAOJIKGCJQ2489-30-94 08:23:003.12[facility] BruknshJPQYTFXOZV0008-18-27 08:23:009.5[facility] XdlhdieLAXQFYVQLE0851-48-27 08:23:0092.6[facility] [place] PMIGVZFKFC3609-83-30 09:26:0010.6[facility] LhiktkkGVTOJQDMXC5981-98-19 09:26:00 0.9[facility] NmreagwODDDBVBCKH5801-52-91 09:26:001.3[facility] 2017-02-28 09:26:0082.7[facility] QcbbvzsQAWLQOAYGQ3449-08-24 09:26:007.3[facility] AckbnzuOGESGQAQSZ4064-33-03 09:26:0010.0[facility] MieuszaQVQOCBFLPB1823-27-86 09:26:0012.8[facility] DladcylVJMOOXOMAO5107-88-78 09:26:009.0[facility] [place] DXQRNTLEHL9808-77-28 09:26:44850Kxskmtan MqggpogAMELFHWQCF7943-39-62 09:26:00 12.8[facility] GwwkqtdSXWZUXDVKM8151-63-85 09:26:0010.4[facility] 2017-02-28 09:26:003.26[facility] JlntbwlVWDCEZAQCQ1952-88-06 09:26:0030.0[facility] DmnlcqgMRQGRATARP7565-19-04 09:26:0092.3[facility] FavungyDAXWYDAPAB4187-07-98 09:26:00 Test Item Value Reference Range Interpretation Comments MCH (test code = MCH) 31.8 pg 27.0-31.0 [facility] YlajhlvELDYZLOSFD3478-82-12 09:26:0034.5[facility] 2017-02-28 09:26:0010.6[facility] XgrjedtWGRLSZTJYK7561-79-69 09:26:000.9[facility] WqspiytGOXCLINFOW2358-29-19 09:26:001.3[facility] BejqpsmPFNDATVBOI3623-94-70 09:26:0082.7[facility] DlaedbkXEEADRMOQF8862-19-46 09:26:007.3[facility] [place] ERMXTOCQZE6388-69-44 09:26:0010.0[facility] IhogihnHHTECIQZAS9752-70-89 09:26:00 12.8[facility] MactjmpAADVQNIXIQ4472-30-40 09:26:009.0[facility] 2017-02-28 09:26:41565Hgbgojsl LqiykreRASLPJWEVD3454-21-78 09:26:0012.8[facility] VogkluvAZIQWDCWGY2820-47-59 09:26:0010.4[facility] CntthsyPREOBUIKTC7604-22-77 09:26:003.26[facility] AcjailzAICYPLOASN5631-60-74 09:26:0030.0[facility] [place] BVFTDVVRHH1850-34-78 09:26:0092.3[facility] YfrmjmqPIMZJKZMCL8846-18-52 09:26:00 Test Item Value Reference Range Interpretation Comments MCH (test code = MCH) 31.8 pg 27.0-31.0 [facility] RfgtmyuREVNTVNEST4466-18-84 09:26:0034.5[facility]annHEMATOLOGY 2017-02-28 09:26:0010.6[facility] LrmunycEKJSZMDXVV0427-65-02 09:26:000.9[facility] WcozwnoFOKRTLWCZJ2373-43-95 09:26:001.3[facility] CbvfxyaQHIGGTNJDW5078-97-27 09:26:0082.7[facility] ZjukevuUGKVTTONDQ4685-79-08 09:26:007.3[facility] KPJYBHYAAT8676-96-32 09:26:0010.0[facility] DalxsduHJDACBSJIF5722-97-74 09:26:00 12.8[facility] AsbxjrrPTMUHSAUXS4602-83-72 09:26:009.0[facility]annHEMATOLOGY 2017-02-28 09:26:65474Fwrjsyms DaffzvpJAZWMXZJHH8562-13-77 09:26:0012.8[facility] CxyhlgzMAZJKGHIOQ8780-91-61 09:26:0010.4[facility] ZhvqtsoNAZAYPVJOO7134-91-73 09:26:003.26[facility] XulakrkIUFCNUBRNL0846-29-45 09:26:0030.0[facility] [place] BBNRMGAEYV9458-05-65 09:26:0092.3[facility] YgfrpzvOFXNBTHDMF5241-95-34 09:26:00 Test Item Value Reference Range Interpretation Comments MCH (test code = MCH) 31.8 pg 27.0-31.0 [facility] IloqmfsBPMPIIVVKB5863-34-02 09:26:0034.5[facility]annHEMATOLOGY 2017-02-22 18:16:0043.6[facility] NjuadhtTJWPEUCSIS5558-42-25 18:16:005.8[facility] RejalbkENIGVPMVFR0575-98-63 18:16:002.2[facility] QfprykeBAISSMXXIY9372-89-15 18:16:000.4[facility] OwyllirCDGHHYMOAM0736-72-42 18:16:000.1[facility] TYHEIGVUHX8001-47-25 18:16:000.5[facility] JcgdvvwDMDPHDFKFW8893-89-30 18:16:005.2 [facility] OqkfnmiPCDWXPGFFR9894-71-00 18:16:0025.9[facility]annHEMATOLOGY 2017-02-22 18:16:000.9[facility] XmywpusKOCUZXVDFK5369-19-89 18:16:0067.5[facility]annBL[facility]OD BANK DHJFGEX6220-24-65 18:16:00Negative (02/22/17 1:16 PM)[facility] WsebaayEOHSCGRAKJEA4542-11-16 18:16:0014.8[facility] JbiibkzOKCGMCZDAVNQ8354-25-61 18:16:0041[facility] MxnxrdwLRTSNJHUQGQD4912-20-42 18:16:0032[facility] NMMQAOIBMQML0515-46-02 18:16:71182Qlfngscm EyqwjunJRWRRROXXPNR8145-99-36 18:16:009.3[facility] YcwipliCNLMQDPEEGUY0868-48-62 18:16:004.8[facility] VALNHSSYVREW4392-05-22 18:16:62821Rlxuixsq SqsdvxoBZCXYDXSUISB0207-57-54 18:16:001.30[facility] HawcnghGLARCUIKJBGL9190-26-51 18:16:0026[facility] ZUYIAZHORXSP4754-09-43 18:16:47888Axuwjygt NpagoxjSIEYXIQZWM5638-23-04 18:16:00 Test Item Value Reference Range Interpretation Comments PTT (test code = PTT) 26.5 s 22.9-35.8 [facility] MmtlvltAAVUPQANPE4756-54-14 18:16:00 Test Item Value Reference Range Interpretation Comments PT (test code = PT) 13.1 s 12.0-14.7 [facility] KjiizsxKWTYTTPRUM5965-94-73 18:16:000.97[facility]annHEMATOLOGY 2017-02-22 18:16:0013.2[facility] UwwxgefCWYKRWELWE9644-43-52 18:16:0034.5[facility] MafldssRENDKOXGXU6276-44-18 18:16:00 Test Item Value Reference Range Interpretation Comments MCH (test code = MCH) 32.0 pg 27.0-31.0 [facility] GbzyuokJKWIOICJQR3793-12-88 18:16:009.1[facility]annHEMATOLOGY 2017-02-22 18:16:66704Rfxfnknj OcemmpaTSKZPMCQDQ3731-11-17 18:16:008.5[facility] TevyyiePMPMRGZSLB4840-98-23 18:16:004.70[facility] QclbchnKLZECIUBXM6048-06-99 18:16:0015.0[facility] UlzqkhvGERVPHKMZI9741-83-18 18:16:0092.7[facility] YNHXAXWUWU1161-05-32 18:16:0043.6[facility] HfofehtGUNIQICSRG9377-45-98 18:16:00 5.8[facility] HvsgmftVOIXUPUGDX3758-60-78 18:16:002.2[facility]annHEMATOLOGY 2017-02-22 18:16:000.4[facility] WgueqsbOJTNTCCMSW8106-07-56 18:16:000.1[facility] XacfmjeKJMZROHOPK1019-00-64 18:16:000.5[facility] UmoiwhmZXHOCCAWXU2289-73-34 18:16:005.2[facility] WroezeiAPIHUXYXDA6513-50-66 18:16:0025.9[facility] VDFEDNTKTF1638-53-92 18:16:000.9[facility] NklqjdrMYRSXGOSGM2922-65-96 18:16:00 67.5[facility]annBL[facility]OD BANK GGBUABN2298-85-55 18:16:00Negative (02/22/17 1:16 PM)[facility] MijfitfEAZWAOZZHNRS4509-71-71 18:16:0014.8[facility] [place] VJEUJPACORIB9627-70-00 18:16:0041[facility] MinflxoOSAPNGISUQBN9882-22-80 18:16:00 32[facility] XiewhksQWLFKZTCWJEO4390-29-56 18:16:62873Akltycjg HermannELECTROLYTES 2017-02-22 18:16:009.3[facility] UhgdaplBBVQHJFIJZES0379-93-59 18:16:004.8[facility] XazuxjvXPHCJTBQIGEA5752-66-86 18:16:34794Icsdwpii GqcesjkKMYWJPJTRDZT1872-03-88 18:16:001.30[facility] LgqnfjfCKNQSHWEPUYT8403-80-74 18:16:0026[facility] PUFRWIOIXMQK8230-21-34 18:16:65591Jigtngdc DnsltbhTPUIZEPSFH5333-13-77 18:16:00 Test Item Value Reference Range Interpretation Comments PTT (test code = PTT) 26.5 s 22.9-35.8 [facility] XqbmyefNEVWJTRYOT3578-31-11 18:16:00 Test Item Value Reference Range Interpretation Comments PT (test code = PT) 13.1 s 12.0-14.7 [facility] VxhiycjWFSWYDMVPD4344-96-47 18:16:000.97[facility] HermannHEMATOLOGY 2017-02-22 18:16:0013.2[facility] HqkfypoJLRXZHERAQ0078-90-45 18:16:0034.5[facility] WrytmjgCSJPZROUZW3547-37-21 18:16:00 Test Item Value Reference Range Interpretation Comments MCH (test code = MCH) 32.0 pg 27.0-31.0 [facility] EfsldevOTXKDKMGMB2938-89-61 18:16:009.1[facility]annHEMATOLOGY 2017-02-22 18:16:89796Nxdshmdy DegnbpzNBLIICECBH9963-31-81 18:16:008.5[facility] NigxbjfZIEWCMIGHS3698-95-23 18:16:004.70[facility] FhiqdwhVRTOXZHZSP8715-89-21 18:16:0015.0[facility] WiksbbnMPCPWIDERP8032-93-36 18:16:0092.7[facility] BLOOD BANK VYPGSGS0359-18-35 18:16:00Negative (02/22/17 1:16 PM)[facility] [place] AHJMDFQELZGO9451-49-19 18:16:0014.8[facility] WatgrwiSRNXIPKQOCZN8042-45-93 18:16:0041[facility] PlxpwozROBSHEQCLTSO2690-62-57 18:16:0032[facility] [place] [facility] CSNWLIANXSKI5323-35-20 18:16:83095Oyzcofil CrhkzdfLYHAVMQKFRVK5553-98-00 18:16:009.3[facility] TxutsixNUHHEKFJOUVG4532-16-71 18:16:004.8[facility] ZFXMACAQPMRG2637-05-66 18:16:32270Mwramtdw JdwbqozNVADJQHTSAKB4109-12-52 18:16:001.30[facility] XpgvhwsOSXIPXPMFSWE4144-10-61 18:16:0026[facility] UMMTGCMPNARU7376-88-78 18:16:81426Tqxzjbnu UjskzttVKCEUPAXBZ5662-46-05 18:16:00 Test Item Value Reference Range Interpretation Comments PTT (test code = PTT) 26.5 s 22.9-35.8 [facility] RmgctdvHXXGJMYVSR2240-18-27 18:16:00 Test Item Value Reference Range Interpretation Comments PT (test code = PT) 13.1 s 12.0-14.7 [facility] LuhugaoQHMRQSVSEG5308-65-49 18:16:000.97[facility]annHEMATOLOGY 2017-02-22 18:16:0013.2[facility] WburfqbTKXSLYMRZG3672-85-62 18:16:0034.5[facility] UofbzgwCZOGCVRPIL4805-00-92 18:16:00 Test Item Value Reference Range Interpretation Comments MCH (test code = MCH) 32.0 pg 27.0-31.0 [facility] TbdbepgLXDNLCRNYQ4609-06-16 18:16:009.1[facility] HermannHEMATOLOGY 2017-02-22 18:16:77082Dyblggvs GyauoinUNFRQVOXRY8013-37-72 18:16:008.5[facility] ZijbomiJGYHWPNMDE8573-30-93 18:16:004.70[facility] OkmhpmkPIDSYNOAPL9921-43-76 18:16:0015.0[facility] IejfnwxJINTBAPLON0537-03-08 18:16:0092.7[facility] [place] VFFZBQDXUF7713-88-21 18:16:0043.6[facility] SkbhqyfTYBMZXDTXM6405-17-57 18:16:00 5.8[facility] UcrfanpZEEACTWAET4682-71-20 18:16:002.2[facility] HermannHEMATOLOGY 2017-02-22 18:16:000.4[facility] CmcsimrHIDJVPQUAQ9407-39-79 18:16:000.1[facility] KsdwxrkDEYAFQIBOE5156-75-29 18:16:000.5[facility] IuffdysRLCJDOKVEX8863-71-93 18:16:005.2[facility] CrynlbgUQYAZUYDLS7223-65-03 18:16:0025.9[facility] [place] FWBYJKECUQ3141-99-42 18:16:000.9[facility] FcqcufoSTRHKYNASD9155-17-17 18:16:00 67.5[facility]annBLOOD BANK QOPDERX6402-17-62 17:57:00Product available (02/22/17 12:57 PM)[facility] KWBTYIX1194-98-84 17:57:00Product available (02/22/17 12:57 PM)[facility] YMIQWJC8314-40-95 17:57:00Product available (02/22/17 12:57 PM)[facility]annCHEM PANEL 2016-06-19 17:01:0032[facility] HermannCHEM QJJYN0394-08-04 17:01:004.1[facility] HermannCHEM XOMSI2745-23-53 17:01:001.0[facility] HermannCHEM DXKSU8194-23-80 17:01:0013.0[facility]annCHEM FGILA5459-94-09 17:01:0050[facility]annCHEM QFTLV9883-61-90 17:01:004.1[facility] HermannCHEM NPTMR4573-61-55 17:01:0011 [facility]annCHEM WZAPF7935-30-61 17:01:0023[facility]annCHEM PANEL 2016-06-19 17:01:008.2[facility] HermannCHEM GRIBX4867-35-08 17:01:0077[facility]annCHEM KUQVP8037-75-82 17:01:000.5[facility] HermannCHEM UISNE7092-54-70 17:01:24165Swynxjgf HermannCHEM UXACX6895-20-33 17:01:0023[facility] HermannCHEM AQCQP0968-70-37 17:01:008.9[facility]annCHEM KGYWC4094-86-41 17:01:0093 [facility]annCHEM YNINC7254-27-99 17:01:004.0[facility] HermannCHEM PANEL 2016-06-19 17:01:51309Glpbrjlg HermannCHEM LDJHP6342-96-69 17:01:0035[facility] HermannCHEM RXWXP8759-35-17 17:01:001.10[facility] RbjsmxpLJZDNYECJD5315-74-17 17:01:004.54[facility] BhtkcreFHQCYVNVKN5789-60-68 17:01:0014.3[facility] [place] FDIBETUGEL4916-50-21 17:01:008.5[facility] XasobliNIPRKGUOZA6707-66-66 17:01:009.2 [facility] GgrvqtoRCSDPVWKME6822-36-88 17:01:0092.6[facility] HermannHEMATOLOGY 2016-06-19 17:01:0042.1[facility] DgdhdgcFTHICFVXPT6542-67-49 17:01:0013.6[facility] GdbbkdiURHHVILCPX3199-66-77 17:01:00 Test Item Value Reference Range Interpretation Comments MCH (test code = MCH) 31.5 pg 27.0-31.0 [facility] YgbsuggXYAAQBWXJQ5678-64-30 17:01:16467Xanirerg HermannHEMATOLOGY 2016-06-19 17:01:0034.1[facility] WgzfsqnSLFRHKKIJQ1537-39-49 17:01:000.6[facility] HdrbkbdKPZFDXDKJQ1282-36-11 17:01:000.9[facility] DsjtnoiTETAXDXOPK9790-76-73 17:01:0023.2[facility] KvmymxnIWEQCMNAGD6197-19-26 17:01:0069.1[facility] JLLYXCBLIV4589-56-45 17:01:002.0[facility] LzqecotVMTOIBEWOA4765-84-58 17:01:000.1 [facility] TfpqeapFIGJQZPHAW1070-79-84 17:01:000.1[facility]annHEMATOLOGY 2016-06-19 17:01:006.2[facility] HrkyljlNQARKHDFST6649-53-42 17:01:005.9[facility] ToufssuOFAGBCQECY6201-17-42 17:01:000.5[facility] HermannCHEM HHIRU3341-59-99 17:01:0032[facility]annCHEM EUXOI2469-23-71 17:01:004.1[facility] HermannCHEM LWLIS3858-88-75 17:01:001.0[facility] HermannCHEM MPHTG1163-23-90 17:01:0013.0 [facility]annCHEM FMVVX3762-33-93 17:01:0050[facility] HermannCHEM PANEL 2016-06-19 17:01:004.1[facility] HermannCHEM WTLDI9475-04-80 17:01:0011[facility]annCHEM YBABN6750-73-83 17:01:0023[facility]annCHEM SNSQJ5625-07-27 17:01:008.2[facility] HermannCHEM RGIKF0297-49-52 17:01:0077[facility] HermannCHEM YIDVP8194-26-59 17:01:000.5[facility] HermannCHEM LTXWV3866-59-07 17:01:11068 [facility]annCHEM BAZDL2771-44-88 17:01:0023[facility]annCHEM PANEL 2016-06-19 17:01:008.9[facility] HermannCHEM JCAMM3891-43-75 17:01:0093[facility] HermannCHEM XVYLD9607-56-55 17:01:004.0[facility] HermannCHEM EXTOT0919-42-82 17:01:01201Bhbgzcnb HermannCHEM IQXPE4632-83-17 17:01:0035[facility] HermannCHEM HOBRB3589-73-86 17:01:001.10[facility] PkqkncqQBNBYUSOFS7032-93-17 17:01:004.54 [facility] UbfuqspIUSSKHBKLC8908-18-53 17:01:0014.3[facility]annHEMATOLOGY 2016-06-19 17:01:008.5[facility] BjcigegUQXQMGJCTF1959-08-99 17:01:009.2[facility] CayyofsDSYBZDVYJT0471-60-52 17:01:0092.6[facility] AtnymulHMCAPYQKBW7783-78-69 17:01:0042.1[facility] BelnlfvGTOZDTDJCQ9302-50-97 17:01:0013.6[facility] [place] ESHWAGKQIC4363-68-02 17:01:00 Test Item Value Reference Range Interpretation Comments MCH (test code = MCH) 31.5 pg 27.0-31.0 [facility] VqnchliEHWJJXVRJN0530-76-75 17:01:91798Oajsgoiy HermannHEMATOLOGY 2016-06-19 17:01:0034.1[facility] JytdinsLEAKAISGEO6321-43-54 17:01:000.6[facility] CrnnikeOIMJTQIYZQ7948-16-33 17:01:000.9[facility] WcazwtgIYVUXIOWPP4545-02-83 17:01:0023.2[facility] YskjyskRLNMGYXDMI0608-12-15 17:01:0069.1[facility] [place] TCSXMUYBXO6505-88-24 17:01:002.0[facility] OrldzxhEVNSYUWTIA4422-71-96 17:01:000.1 [facility] RnccxrmBBCZDMRILD0141-00-53 17:01:000.1[facility] HermannHEMATOLOGY 2016-06-19 17:01:006.2[facility] KcsbbshNESMHUKKPH5794-08-86 17:01:005.9[facility] AhcfmzaFBFSWEUPXJ1080-78-78 17:01:000.5[facility] HermannCHEM XPCBB8207-18-02 17:01:0032[facility] HermannCHEM KLVGE7756-00-03 17:01:004.1[facility] HermannCHEM WOCDQ0544-86-26 17:01:001.0[facility] HermannCHEM DRLSY0209-82-37 17:01:0013.0 [facility] HermannCHEM RAYHN3649-78-15 17:01:0050[facility] HermannCHEM PANEL 2016-06-19 17:01:004.1[facility] HermannCHEM VCZUJ6407-77-95 17:01:0011[facility]annCHEM KXAJP1427-07-60 17:01:0023[facility] HermannCHEM TAWYE8465-32-14 17:01:008.2[facility] HermannCHEM HNZHI2614-09-09 17:01:0077[facility]annCHEM UJZMT1096-11-21 17:01:000.5[facility] HermannCHEM YDTID3021-35-61 17:01:03813 [facility]annCHEM DZNTL1590-35-99 17:01:0023[facility] HermannCHEM PANEL 2016-06-19 17:01:008.9[facility] HermannCHEM YGIHQ5696-08-41 17:01:0093[facility]annCHEM ZBHEU2280-13-75 17:01:004.0[facility] HermannCHEM ZWZYC6272-72-36 17:01:09432Azynzjcf HermannCHEM JDSQH1217-25-78 17:01:0035[facility] HermannCHEM HPTYX9901-14-20 17:01:001.10[facility] UjuomyrWMVXQKXDRQ3943-28-42 17:01:004.54 [facility] IonthrpNKYKDPSRKI2544-57-84 17:01:0014.3[facility] HermannHEMATOLOGY 2016-06-19 17:01:008.5[facility] DfkzudnUNEYMTKTUG2302-43-82 17:01:009.2[facility] LnhnuruZEPMPRIRKF0949-49-83 17:01:0092.6[facility] GwbudzgPQEQUTFJOZ4493-82-27 17:01:0042.1[facility] BgbdwbnHCRGDCXOKY7477-57-67 17:01:0013.6[facility] IWKFPUITKK7417-94-59 17:01:00 Test Item Value Reference Range Interpretation Comments MCH (test code = MCH) 31.5 pg 27.0-31.0 [facility] TkdyfyqCLELSTUJWX6861-13-32 17:01:40310Pdvgxjki HermannHEMATOLOGY 2016-06-19 17:01:0034.1[facility] DahsytmAJNQFULDYB8269-87-05 17:01:000.6[facility] ZnkrivxCDAVLEIXZA9306-25-96 17:01:000.9[facility] RdrdmylQTWSYJEPQC3042-28-55 17:01:0023.2[facility] QgjcglwMGAYAFYHJQ7771-86-49 17:01:0069.1[facility] YTHTLTILUZ2530-40-23 17:01:002.0[facility] ZzhkwtyDCDLPWZQWF4437-35-12 17:01:000.1 [facility] NbrdioxBZVCQWIFER1918-86-53 17:01:000.1[facility]annHEMATOLOGY 2016-06-19 17:01:006.2[facility] HevkkkoVVECSVJJSW3670-36-24 17:01:005.9[facility] PgdywedNNAXUDKCCX0744-89-70 17:01:000.5[facility] HermannBLOOD BANK RESULTS 2015-09-28 14:58:00Negative (09/28/15 9:58 AM)[facility]annCHEM PANEL 2015-09-28 14:58:000.4[facility] HermannCHEM FPPKV4233-19-99 14:58:0083[facility] HermannCHEM PDPML0290-41-08 14:58:0013[facility] HermannCHEM FANWS6669-01-71 14:58:0021[facility] HermannCHEM TEQKO0428-55-95 14:58:003.8[facility] HermannCHEM MMHUL4715-05-98 14:58:007.8[facility] HermannCHEM KRLYB8514-12-56 14:58:009.0 [facility]annCHEM BPPUU9798-60-12 14:58:0026[facility]annCHEM PANEL 2015-09-28 14:58:0056[facility] HermannCHEM EOPHB7180-98-97 14:58:47985Rbrrtfwp HermannCHEM MWIYZ1548-17-25 14:58:21064Xhnkdaqa HermannCHEM RZSJJ5184-59-75 14:58:004.2[facility] HermannCHEM GQLQH5621-13-67 14:58:001.01[facility] HermannCHEM SJNDE5199-07-77 14:58:0019[facility] HermannCHEM FMULP1430-58-03 14:58:0096 [facility]annCHEM LPWBF1394-07-94 14:58:0019[facility] HermannCHEM PANEL 2015-09-28 14:58:0012.2[facility] HermannCHEM WIAOJ5279-22-28 14:58:001.0[facility] HermannCHEM XXTXY3971-10-92 14:58:004.0[facility] JzmktypVTGUQBPKGS9272-41-85 14:58:00 Test Item Value Reference Range Interpretation Comments PTT (test code = PTT) 27.0 s 22.9-35.8 [facility] BuwqiifYHOZXYCLUY8917-88-95 14:58:00 Test Item Value Reference Range Interpretation Comments PT (test code = PT) 13.8 s 12.0-14.7 [facility] YybmbghAYNYGXSIJQ9722-42-76 14:58:001.03[facility]annHEMATOLOGY 2015-09-28 14:58:000.1[facility] HflgkohVCHBQGJHFO6920-46-34 14:58:000.8[facility] DppdzzoUKKMPYTYDE2518-74-22 14:58:001.7[facility] QobalysJBKRTISRIR7109-52-47 14:58:000.5[facility] NpifccaLRCVHQBPIT3093-43-46 14:58:004.1[facility] GEFPEJIBBW7153-72-99 14:58:007.3[facility] LvhpjbtMZZIJODSOU0684-64-40 14:58:002.1 [facility] AykyughRNRXYXDFUR4839-15-01 14:58:0063.0[facility] HermannHEMATOLOGY 2015-09-28 14:58:0026.8[facility] QqmbgpfHMFUTQPTXF7563-89-36 14:58:92017Qfhnteln LpmzjixXISPZKJPDY9960-59-30 14:58:0013.0[facility] LxwwmzgIPBOASCJNX9321-81-13 14:58:008.6[facility] HpwbnjpBEUSFEJLSU6247-05-88 14:58:0032.7[facility] MKDZWIJPOA7236-14-19 14:58:0039.2[facility] IvjpvujQMCODUVYPH3812-06-77 14:58:00 91.3[facility] GvgzwjvGOIZMHUNEO1946-30-87 14:58:00 Test Item Value Reference Range Interpretation Comments MCH (test code = MCH) 29.9 pg 27.0-31.0 [facility] BzyggvzPEUDOIFZEL5434-31-45 14:58:0012.8[facility] HermannHEMATOLOGY 2015-09-28 14:58:006.5[facility] MjnumtpLAVXFRISZO0108-90-65 14:58:004.29[facility]annURINE AND XBATG1579-65-44 14:58:00Yellow *NA*(09/28/15 9:58 AM)[facility]annUR[facility] AND IDNYZ7951-44-03 14:58:001.020[facility]annURINE AND STOOL 2015-09-28 14:58:00Clear (09/28/15 9:58 AM)[facility] STOOL 2015-09-28 14:58:006.0[facility]annURINE AND IICZC1940-22-52 14:58:00Negative *NA*(09/28/15 9:58 AM)[facility] PDIFY5107-40-59 14:58:00Small *ABN*(09/28/15 9:58 AM)[facility] IKEGT3108-03-87 14:58:00Positive *ABN*(09/28/15 9:58 AM)[facility] BBBRE7836-62-20 14:58:00 Negative (09/28/15 9:58 AM)[facility] EKTQM6143-85-32 14:58:0034 [facility]annUR[facility] AND POCTJ2758-70-79 14:58:001[facility]annBL[facility]OD BANK ZXMDROB7280-17-38 14:58:00Negative (09/28/15 9:58 AM)[facility]annCHEM PANEL 2015-09-28 14:58:000.4[facility] HermannCHEM CBZOF2643-80-81 14:58:0083[facility] HermannCHEM UAACJ2202-00-97 14:58:0013[facility] HermannCHEM ZKPGQ8917-13-63 14:58:0021[facility] HermannCHEM IASIJ8293-54-38 14:58:003.8[facility] HermannCHEM IITFO6109-33-05 14:58:007.8[facility] HermannCHEM RSDVI4461-22-40 14:58:009.0 [facility]annCHEM PNJNZ0452-26-75 14:58:0026[facility]annCHEM PANEL 2015-09-28 14:58:0056[facility] HermannCHEM DQIXM6168-94-20 14:58:15051Ojwenydw HermannCHEM PYAOW5247-09-55 14:58:29857Dbaxhert HermannCHEM SUTGS6013-49-07 14:58:004.2[facility] HermannCHEM IOZCH0783-94-01 14:58:001.01[facility] HermannCHEM VGSEZ5379-31-87 14:58:0019[facility] HermannCHEM ERCOL5359-73-00 14:58:0096 [facility]annCHEM SAAYQ9637-26-77 14:58:0019[facility] HermannCHEM PANEL 2015-09-28 14:58:0012.2[facility] HermannCHEM HLSVK6917-14-38 14:58:001.0[facility] HermannCHEM HBXVM7192-35-12 14:58:004.0[facility] SfjizrpKZGDQSYUDM7451-75-19 14:58:00 Test Item Value Reference Range Interpretation Comments PTT (test code = PTT) 27.0 s 22.9-35.8 [facility] LtmwqumIUOXKOMYMZ2803-75-33 14:58:00 Test Item Value Reference Range Interpretation Comments PT (test code = PT) 13.8 s 12.0-14.7 [facility] IjmdgzcTICOGEBUGU8648-37-00 14:58:001.03[facility]annHEMATOLOGY 2015-09-28 14:58:000.1[facility] PndghyjFYBMTAVESC8629-29-62 14:58:000.8[facility] VkmobpdLBZOHEGTMX8875-95-07 14:58:001.7[facility] AekzdzhFVLLXSLECV8921-84-55 14:58:000.5[facility] DtbteydPYGBDPOVIW2949-50-22 14:58:004.1[facility] [place] ADMAGXKPYM5639-28-27 14:58:007.3[facility] VlmspjtCGVAHHEVMJ3079-39-34 14:58:002.1 [facility] YilutpgMPNRRRUKJX3645-59-89 14:58:0063.0[facility]annHEMATOLOGY 2015-09-28 14:58:0026.8[facility] YtlczpcPCDZTLTQIU9004-36-99 14:58:37547Covopodx LyzgbaeJAHYYCVPYJ6387-95-06 14:58:0013.0[facility] QppeujzVTVSRTSRPJ7982-60-24 14:58:008.6[facility] CxduqwuDYPYCODAJZ4024-28-29 14:58:0032.7[facility] [place] MHKNNUPFRE5374-37-10 14:58:0039.2[facility] QphghosXGUINEBYVM0683-90-31 14:58:00 91.3[facility] DxhxzupECFCHKQNBA9727-42-02 14:58:00 Test Item Value Reference Range Interpretation Comments MCH (test code = MCH) 29.9 pg 27.0-31.0 [facility] QjtloliRIBWFSHMWW5886-03-17 14:58:0012.8[facility]annHEMATOLOGY 2015-09-28 14:58:006.5[facility] PwdkbwrMEALHQELFF5482-65-41 14:58:004.29[facility] MCSSC4366-00-17 14:58:00Yellow *NA*(09/28/15 9:58 AM)[facility] QXKJC5570-51-22 14:58:001.020[facility] STOOL 2015-09-28 14:58:00Clear (09/28/15 9:58 AM)[facility] STOOL 2015-09-28 14:58:006.0[facility] WEZRZ6840-34-43 14:58:00Negative *NA*(09/28/15 9:58 AM)[facility] HERAQ6282-84-55 14:58:00Small *ABN*(09/28/15 9:58 AM)[facility] RDPZQ8840-78-54 14:58:00Positive *ABN*(09/28/15 9:58 AM)[facility] VPBTN3108-08-98 14:58:00 Negative (09/28/15 9:58 AM)[facility] EHWAQ6491-86-30 14:58:0034 [facility] LKCIB7333-11-00 14:58:001[facility] DAEHBPR9541-49-21 14:58:00Negative (09/28/15 9:58 AM)[facility]annCHEM PANEL 2015-09-28 14:58:000.4[facility]annCHEM GTLRM3127-99-58 14:58:0083[facility]annCHE[facility] YVLDY7967-28-07 14:58:0013[facility]annCHEM UOXTB9701-31-95 14:58:0021[facility]annCHEM WAMRB0705-11-99 14:58:003.8[facility]annCHE[facility] XPXZV3797-74-10 14:58:007.8[facility]annCHE[facility] MLIUM6174-72-00 14:58:009.0 [facility] KOPUJ3542-89-21 14:58:0026[facility]annCHEM PANEL 2015-09-28 14:58:0056[facility]annCHEM SDZEY7707-80-86 14:58:63009Gvmtpuix HermannCHEM MTEXW2598-65-45 14:58:64828Lujmzreu HermannCHEM NETHS7278-56-64 14:58:004.2[facility]annCHEM VRODC8087-65-22 14:58:001.01[facility]annCHEM QBCXR6293-63-40 14:58:0019[facility]annCHEM QQTIP5754-10-77 14:58:0096 [facility]CHE[facility] CCFUB0160-96-92 14:58:0019[facility]annCHEM PANEL 2015-09-28 14:58:0012.2[facility]annCHEM FYEIP7454-21-67 14:58:001.0[facility]annCHE[facility] WVTRE5228-36-71 14:58:004.0[facility] PblynftUGIKTKHJXN9612-79-95 14:58:00 Test Item Value Reference Range Interpretation Comments PTT (test code = PTT) 27.0 s 22.9-35.8 [facility] RcgykbqBNYMNHJEHN8477-04-64 14:58:00 Test Item Value Reference Range Interpretation Comments PT (test code = PT) 13.8 s 12.0-14.7 [facility] TdzpymhGHEDNEHLCF2046-72-68 14:58:001.03[facility]annHEMATOLOGY 2015-09-28 14:58:000.1[facility] EsgrucjQZWQRKGRXP1289-92-66 14:58:000.8[facility] OodqdenXHGFETQEJW9295-74-43 14:58:001.7[facility] QnclwxsWXTSYBSIAL9671-03-14 14:58:000.5[facility] TjtpehmKQOXLECUFX9684-47-43 14:58:004.1[facility] GEGWJQYUNM1454-97-66 14:58:007.3[facility] XahpyqvKJKSITWAAL6288-31-05 14:58:002.1 [facility] QqlyunbFGBDVNAUVJ2952-63-37 14:58:0063.0[facility]annHEMATOLOGY 2015-09-28 14:58:0026.8[facility] YdfdtlaEVVJVXABMB6126-35-16 14:58:31830Bscswmhl UnaiqyoCNHWDOHMAH0255-93-68 14:58:0013.0[facility] BesseslMKCPETGYCQ8550-44-65 14:58:008.6[facility] SnclyofXCTGTECXDU8041-40-05 14:58:0032.7[facility] [place] MYCQAPCAPM4878-19-12 14:58:0039.2[facility] LnyoeqfWUMHUHVANJ1958-79-18 14:58:00 91.3[facility] VhhmnxdKHANWNHZNN9344-24-82 14:58:00 Test Item Value Reference Range Interpretation Comments MCH (test code = MCH) 29.9 pg 27.0-31.0 [facility] LnrhwkpGFTKDXNZXR0437-60-71 14:58:0012.8[facility] HermannHEMATOLOGY 2015-09-28 14:58:006.5[facility] XsaxuymINJNIACJYO4472-15-48 14:58:004.29[facility] XCTYF4508-75-20 14:58:00Yellow *NA*(09/28/15 9:58 AM)[facility] LRKWR8282-28-48 14:58:001.020[facility] STOOL 2015-09-28 14:58:00Clear (09/28/15 9:58 AM)[facility] STOOL 2015-09-28 14:58:006.0[facility] HVJDD3655-60-06 14:58:00Negative *NA*(09/28/15 9:58 AM)[facility] BKVAD3105-59-99 14:58:00Small *ABN*(09/28/15 9:58 AM)[facility] VXHXS4619-41-29 14:58:00Positive *ABN*(09/28/15 9:58 AM)[facility] ZNZLM4895-53-78 14:58:00 Negative (09/28/15 9:58 AM)[facility] CEZVG9661-77-42 14:58:0034 [facility] NILFD8589-05-10 14:58:001[facility]BL[facility] PTKWWRO6696-80-91 14:52:00Product available 1(09/28/15 9:52 AM)[facility] VIBJIKY9265-56-30 14:52:00Product available 1(09/28/15 9:52 AM) [facility] DWNAJOB6129-09-90 14:52:00Product available 1(09/28/15 9:52 AM)[facility] JIOJL5067-90-13 21:37:00Negative (07/07/15 3:37 PM)[facility] DVSTS6866-65-44 21:37:003[facility] UTNXP1747-83-28 21:37:001[facility] ERPBG3678-33-40 21:37:00 Small *ABN*(07/07/15 3:37 PM)[facility] WCHYU5580-69-96 21:37:00 Negative (07/07/15 3:37 PM)[facility] RQTKQ5796-82-57 21:37:00 Negative *NA*(07/07/15 3:37 PM)[facility] VPWTR9334-97-74 21:37:00 6.0[facility] KGYOY4496-90-27 21:37:00Slight *ABN*(07/07/15 3:37 PM)[facility] OBJUF4170-18-50 21:37:001.014[facility] RTWPI9828-83-46 21:37:00Negative (07/07/15 3:37 PM)[facility] YCPNY1192-61-85 21:37:003[facility] XBBYH9656-18-63 21:37:001 [facility] AANXW2861-99-86 21:37:00Small *ABN*(07/07/15 3:37 PM) [facility] QAADH2921-80-66 21:37:00Negative (07/07/15 3:37 PM) [facility] LGLQV2269-35-38 21:37:00Negative *NA*(07/07/15 3:37 PM) [facility] OVQEZ2028-56-71 21:37:006.0[facility] KLFNY6374-83-97 21:37:00Slight *ABN*(07/07/15 3:37 PM)[facility] AQCEH2475[facility]52-92 21:37:001.014[facility] CUMLT5773-81-23 21:37:00 Negative (07/07/15 3:37 PM)[facility] NAWJO5215-03-09 21:37:003 [facility] IGGTT7504-80-56 21:37:001[facility] OVITE4191-58-39 21:37:00Small *ABN*(07/07/15 3:37 PM)[facility] GNROZ0501-26-83 21:37:00Negative (07/07/15 3:37 PM)[facility] TWOKN4934-83-29 21:37:00Negative *NA*(07/07/15 3:37 PM)[facility] FTZDR3979-76-91 21:37:006.0[facility] OELPW1103-80-12 21:37:00 Slight *ABN*(07/07/15 3:37 PM)[facility] ARYSE9103-58-44 21:37:00 1.014[facility]CHE[facility] GNVBG8645-10-88 10:40:0060[facility]annCHE[facility] PANEL 2015-07-07 10:40:004.1[facility] QXVVN9797-53-59 10:40:0024[facility] YGRUH5319-87-85 10:40:000.96[facility] IHYBM0502-21-62 10:40:79589Dsszmslb HermannCHEM YCRDI6806-50-53 10:40:53278Wuwkyfdn [facility]annCHE[facility] YVBAW7146-37-05 10:40:0023[facility] NALVA5139-66-98 10:40:008.4 [facility] DIMJV1754-74-75 10:40:39923Lljuiybo HermannCHEM PANEL 2015-07-07 10:40:0013.1[facility] WgvituuXFBPFTETDB2433-37-28 10:40:006.7[facility] NocixwzWQAIIJMHHM9938-26-44 10:40:001.7[facility] SxbzzjfHUUGRASPOB0429-12-57 10:40:006.1[facility] QizpnhoMWAIWNERRZ1597-08-52 10:40:001.0[facility] VKEZNYKMIB4606-83-15 10:40:001.6[facility] IkovqhoOEBOLPERLK4638-54-93 10:40:000.1 [facility] OrcudbiXMDCHECTWA0318-89-34 10:40:000.6[facility]annHEMATOLOGY 2015-07-07 10:40:000.1[facility] DgaymbvJSJDYUNNMZ8609-27-40 10:40:0019.3[facility] QvudtgbWWJIGXACQX7750-20-46 10:40:0071.4[facility] PcehiksXZSXCSYDOR2759-89-55 10:40:009.1[facility] ZssvwfrVZLCSIUHEX3087-19-83 10:40:0013.1[facility] [place] DEBIDYMZHG7460-47-22 10:40:0034.1[facility] EjordvjRRZTXJWTLQ6916-55-37 10:40:00 Test Item Value Reference Range Interpretation Comments MCH (test code = MCH) 30.6 pg 27.0-31.0 [facility] TduaqavGMZVFGSMKD2350-73-50 10:40:21921Sljysamd HermannHEMATOLOGY 2015-07-07 10:40:008.6[facility] CooguevYHKVGPZBSA3459-66-35 10:40:0036.9[facility] YfcmrldZUFQUNZPCM7042-40-19 10:40:0012.6[facility] SfzgsqbDVDECKNNHH5579-49-32 10:40:004.12[facility] VjczxgeGLDBTENMRR5760-29-79 10:40:0089.7[facility] [place] CHEM CLQUG9274-86-72 10:40:0060[facility]CHE[facility] GLQXD6308-17-38 10:40:004.1 [facility] HHSUM7530-51-79 10:40:0024[facility]annCHE[facility] PANEL 2015-07-07 10:40:000.96[facility] BGVVJ9056-36-39 10:40:41695Iejfumkj HermannCHEM QOGJQ5015-32-10 10:40:33051Lipzshrw HermannCHEM HSUOA1548-06-28 10:40:0023[facility] OQCXO5589-44-93 10:40:008.4[facility]annCHE[facility] JVNTQ0545-64-53 10:40:93001Xhrqiazw HermannCHEM AGLFA3892-16-05 10:40:0013.1 [facility] ZksyyxsZLHJQFLBVN1116-05-91 10:40:006.7[facility]annHEMATOLOGY 2015-07-07 10:40:001.7[facility] JclifyzBZAGSJLXZC6256-78-85 10:40:006.1[facility] QkcsqbqZRRYNUHTSV3126-03-86 10:40:001.0[facility] YdszsbiYBKYLGLEQV9123-34-04 10:40:001.6[facility] GheaiyzPVQOWFSHVQ1363-57-21 10:40:000.1[facility] YZEEATTOKV6003-38-14 10:40:000.6[facility] SbnpznqITWASMRVFA4728-04-00 10:40:000.1 [facility] KntkaucFCROASNYEY6739-66-91 10:40:0019.3[facility]annHEMATOLOGY 2015-07-07 10:40:0071.4[facility] ZiatjblMBFIYCMVWE9063-59-85 10:40:009.1[facility] LqpcmabJPREEZCRRB5041-64-27 10:40:0013.1[facility] LilpangNYSWFSTYZZ2080-56-60 10:40:0034.1[facility] OzchulfWRMOZUKPJO1283-71-61 10:40:00 Test Item Value Reference Range Interpretation Comments MCH (test code = MCH) 30.6 pg 27.0-31.0 [facility] YoyyoutEROQXZVJKP1587-91-54 10:40:94766Dustahtz HermannHEMATOLOGY 2015-07-07 10:40:008.6[facility] TphgeqoSBJIPZGYKW5814-21-72 10:40:0036.9[facility] TezianbAFNNZFHWNB6036-33-94 10:40:0012.6[facility] BzimmgpQXQSMBSHJM3479-18-12 10:40:004.12[facility] PnkvhbuQQBEFSZVTE3606-11-28 10:40:0089.7[facility] [place] CHEM PCCSK9789-57-31 10:40:0060[facility]annCHE[facility] LECHB4360-56-21 10:40:004.1 [facility]CHE[facility] XZGBV9465-06-35 10:40:0024[facility]annCHEM PANEL 2015-07-07 10:40:000.96[facility]CHE[facility] NBHXQ3914-23-08 10:40:36606Yoynctgn HermannCHEM XRAZW1946-31-43 10:40:94455Anhthate HermannCHEM GVTAX0811-81-65 10:40:0023[facility]annCHE[facility] QUKEH8769-51-56 10:40:008.4[facility]annCHEM UFGOM7101-23-00 10:40:27875Vykihbpy HermannCHEM UMZNZ8326-30-82 10:40:0013.1 [facility] JkvpiczTJYWBYBRJT3950-07-34 10:40:006.7[facility]annHEMATOLOGY 2015-07-07 10:40:001.7[facility] QcfluoxMRIQVVNNDQ2951-84-50 10:40:006.1[facility] FcukwtbTLMRXQJJKM8289-30-87 10:40:001.0[facility] TnonxukNBEFKITXTH1019-74-85 10:40:001.6[facility] UizyxnzTHTIVXJMLN3075-88-89 10:40:000.1[facility] VIETWHKFGI1146-60-86 10:40:000.6[facility] QynkoftFVCKRZJRRV3224-77-96 10:40:000.1 [facility] LoxvjbcAALNABJOAK3021-49-26 10:40:0019.3[facility]annHEMATOLOGY 2015-07-07 10:40:0071.4[facility] ZhrzobaSNQDVJRYIF7019-33-18 10:40:009.1[facility] AwhkgpdDCVZYDOPKP3117-71-04 10:40:0013.1[facility] FczbiipDGPXUZBKUX7375-63-16 10:40:0034.1[facility] FnebydnAPSTWGCQJX0924-44-45 10:40:00 Test Item Value Reference Range Interpretation Comments MCH (test code = MCH) 30.6 pg 27.0-31.0 [facility] ObgladvVQLWVAWBDD3996-40-89 10:40:49859Bngashus HermannHEMATOLOGY 2015-07-07 10:40:008.6[facility] VsihrutYECAJZLAWK4741-61-13 10:40:0036.9[facility] BqmpseoTPDUUYPRCL8502-99-20 10:40:0012.6[facility] QogfbvjOWQUOZRTXO0504-61-17 10:40:004.12[facility] RdbgnmiGDPBQLCECC1483-90-71 10:40:0089.7[facility] CHEM CKRAT1015-95-62 05:13:001.05[facility]annCHEM XFMRJ1304-77-66 05:13:0054 [facility] FpzuujaSQJJSKDCYK5555-84-40 05:13:24138Stdiwxpr HermannCHEM PANEL 2015-07-07 05:13:001.05[facility]annCHEM VGCAY5692-71-17 05:13:0054[facility] DntqdrzOCSNXMBHJH0568-37-61 05:13:19317Lhycwceo HermannCHEM ALWTY3063-02-67 05:13:001.05[facility]annCHE[facility] VDTUA4585-96-48 05:13:0054[facility] YTWYATOKPM6134-98-69 05:13:36832Spnhrujf HermannCHEM FCALJ9481-45-17 00:59:19147 [facility]CHE[facility] GOSQT1343-64-70 00:59:000.8[facility]annCHEM PANEL 2015-07-07 00:59:0014.3[facility]annCHE[facility] IXJVJ6701-93-78 00:59:0021[facility]annCHE[facility] CJPMD6332-43-16 00:59:004.6[facility]annCHE[facility] AWQDY3649-09-89 00:59:0046[facility]annCHE[facility] KXIAZ3505-00-95 00:59:004.3[facility]annCHE[facility] LVRSU6030-89-01 00:59:009.1[facility]annCHE[facility] WZRUP1780-39-58 00:59:10029 [facility]annCHE[facility] HYLNE2681-06-92 00:59:008.2[facility]annCHEM PANEL 2015-07-07 00:59:0024[facility]annCHE[facility] LQFRE6342-94-03 00:59:0024[facility]annCHEM UMXXQ2159-67-06 00:59:09514Whewgelt HermannCHEM QIEGM8210-32-26 00:59:003.6[facility]annCHEM FEOTW0605-57-58 00:59:36972Wdpneiaa HermannCHEM WNSUC6543-89-93 00:59:000.6[facility]annCHEM WNNYS7590-79-92 00:59:001.19 [facility]annCHE[facility] GSYWK5435-60-03 00:59:01342Bjvcgtgb HermannCHEM PANEL 2015-07-07 00:59:0025[facility]annCHEM SUBCR2339-60-40 00:59:10625Hcgxqqls KwrzrutVBIAIITBSK4806-00-38 00:59:0011.3[facility] HkjoojcNJPKUHVNWI4597-75-54 00:59:0082.4[facility] BapfdjgJGJAFXQYSP2121-43-32 00:59:000.8[facility] NUSSJGVUJZ4170-85-86 00:59:001.5[facility] PkgxoxfXYOQZVEXRN1083-12-32 00:59:000.1 [facility] NginttvSEKVNKWMJT3095-44-10 00:59:000.2[facility]annHEMATOLOGY 2015-07-07 00:59:005.6[facility] ObzpvoyNFXLIABUJY6110-17-77 00:59:000.5[facility] NbsuzeqXEOOPCFQCB7238-06-32 00:59:0011.1[facility] CggrxyvTEXKIYNVRF4325-79-26 00:59:001.06[facility] ZiwajknFBTRICYHQE7142-36-38 00:59:00 Test Item Value Reference Range Interpretation Comments PTT (test code = PTT) 27.6 s 22.9-35.8 [facility] YuouaavHFYIUMZJAT1004-75-68 00:59:00 Test Item Value Reference Range Interpretation Comments PT (test code = PT) 14.1 s 12.0-14.7 [facility] PohzagcVFIDWCBXBJ0887-27-65 00:59:95962Yznuwfqu HermannHEMATOLOGY 2015-07-07 00:59:009.2[facility] SwqmvlxMRLTEJPWPN4164-16-87 00:59:0040.9[facility] TlbudsxUAQTKRXCJV9288-05-69 00:59:004.52[facility] DyzwlvmKTBCMIQCEU0508-58-67 00:59:0013.6[facility] FweaovrLXOFUYQGIJ6399-44-29 00:59:0013.1[facility] MNJTWVDGGH9828-10-82 00:59:0090.4[facility] AxrenauLZUQACMBIM9907-23-10 00:59:00 Test Item Value Reference Range Interpretation Comments MCH (test code = MCH) 30.1 pg 27.0-31.0 [facility] MgkmpmtTCVCEBWGEW1601-61-40 00:59:0033.3[facility]annHEMATOLOGY 2015-07-07 00:59:0013.4[facility]annCHEM CPDSL8699-24-60 00:59:57824Qakkunbx HermannCHEM FQFWY6411-84-77 00:59:000.8[facility]annCHEM QPBYA5370-21-30 00:59:0014.3[facility]annCHEM DFIOS3518-50-40 00:59:0021[facility]annCHEM KPFNF8608-23-96 00:59:004.6[facility]annCHE[facility] XMPRO6853-49-62 00:59:0046 [facility]CHE[facility] HAGAP4925-05-54 00:59:004.3[facility]annCHEM PANEL 2015-07-07 00:59:009.1[facility]annCHE[facility] AVFBU2081-39-51 00:59:88590Crolsdvq HermannCHEM DOJAS3643-62-03 00:59:008.2[facility]annCHE[facility] PXFPM6274-93-84 00:59:0024[facility]annCHE[facility] XKFAC7675-96-38 00:59:0024[facility]annCHE[facility] UJXFH9920-37-62 00:59:22546Qlcpyznw HermannCHEM RTVOO7420-81-75 00:59:003.6 [facility]CHE[facility] ZDDHX8299-60-69 00:59:01211Slpnfuvq HermannCHEM PANEL 2015-07-07 00:59:000.6[facility]annCHEM JLMHL8797-71-32 00:59:001.19[facility]annCHE[facility] LXOFJ5255-77-98 00:59:50997Gkpqvvsb HermannCHEM ONOJB9836-56-58 00:59:0025[facility]annCHEM AITAR7596-52-68 00:59:88637Yihzmwcr [place] EWPPYCFYXP8958-24-28 00:59:0011.3[facility] HzcykpcMOLEEJKIWN2536-15-24 00:59:00 82.4[facility] XmyosjjMJYAIIVQHZ9239-85-17 00:59:000.8[facility]annHEMATOLOGY 2015-07-07 00:59:001.5[facility] YlfhuveVULLZXDADN1818-50-18 00:59:000.1[facility] GwemybnUBRQXUXSQI8821-55-11 00:59:000.2[facility] CjycdxwTVCVDOIYVD6041-00-76 00:59:005.6[facility] GkddgshKUOCDXZDLQ2260-49-58 00:59:000.5[facility] [place] JZPDTIHPUM5182-02-57 00:59:0011.1[facility] GdcumztDXYNVXBQHP4825-52-47 00:59:00 1.06[facility] PwpyvdlFJPLZFNATP4937-64-28 00:59:00 Test Item Value Reference Range Interpretation Comments PTT (test code = PTT) 27.6 s 22.9-35.8 [facility] PxeteuuQFOCLTFHHA6167-89-92 00:59:00 Test Item Value Reference Range Interpretation Comments PT (test code = PT) 14.1 s 12.0-14.7 [facility] NhjdmnzABJIIUNORS1243-93-73 00:59:42046Uogbjoyf HermannHEMATOLOGY 2015-07-07 00:59:009.2[facility] TiopunsDHRVGKLOSK7458-19-93 00:59:0040.9[facility] GzoovodETITNQUYAG6223-79-66 00:59:004.52[facility] LwmgbuqEQLWHVYHXN0017-40-84 00:59:0013.6[facility] ZgyyyeoPKZFWDGLJN8314-49-73 00:59:0013.1[facility] [place] ZGARMBOXMJ9263-06-58 00:59:0090.4[facility] ZzwtbtgYPVSABQEXV2694-84-48 00:59:00 Test Item Value Reference Range Interpretation Comments MCH (test code = MCH) 30.1 pg 27.0-31.0 [facility] XogudmzNQNBVBYSRR9170-15-09 00:59:0033.3[facility]annHEMATOLOGY 2015-07-07 00:59:0013.4[facility]annCHEM UTVXK5387-83-00 00:59:73692Jxxbecer HermannCHEM YACVM7740-86-66 00:59:000.8[facility]annCHEM RGOQO9119-17-58 00:59:0014.3[facility]annCHEM BSJUI8799-05-51 00:59:0021[facility]annCHEM CKJVK3120-67-23 00:59:004.6[facility]annCHEM HQAGZ1642-44-70 00:59:0046 [facility]annCHE[facility] XCHSB4918-14-85 00:59:004.3[facility]annCHEM PANEL 2015-07-07 00:59:009.1[facility]annCHEM MHEPU7967-45-91 00:59:56547Plazgrwp HermannCHEM TDPIA5834-64-13 00:59:008.2[facility]annCHEM MZCCG9705-26-02 00:59:0024[facility]annCHE[facility] WKJQB5644-59-54 00:59:0024[facility]annCHE[facility] KLMEX9366-35-06 00:59:37333Laoelcsy HermannCHEM LKGRK2250-07-01 00:59:003.6 [facility]CHE[facility] CDAOV3698-16-74 00:59:12106Rahvsqjn HermannCHEM PANEL 2015-07-07 00:59:000.6[facility]annCHEM QQXPD2597-46-43 00:59:001.19[facility]annCHEM JZVMJ3659-89-37 00:59:35532Tymlokpu HermannCHEM UNQFC3052-52-11 00:59:0025[facility]annCHEM HHLKJ7335-17-71 00:59:73489Upuwwhty [place] VXIJQASQGB7240-09-09 00:59:0011.3[facility] UbirvyeLMEIWUGBPA1482-11-26 00:59:00 82.4[facility] OvvkdtuTAALLVDBOO6524-99-44 00:59:000.8[facility]annHEMATOLOGY 2015-07-07 00:59:001.5[facility] VretczrMWVFHQFVQO5672-75-19 00:59:000.1[facility] MwqxozdAJMGZERPGT1803-52-57 00:59:000.2[facility] LjyhbhhRHQRMQEKVL5040-93-32 00:59:005.6[facility] ZmungbbKGBWHMKHNU0268-40-00 00:59:000.5[facility] AJSADNVXOC3925-17-75 00:59:0011.1[facility] OsobiovFKNDSTAGQQ7090-89-26 00:59:00 1.06[facility] AdbkgujSFMXPRPEAL2191-47-15 00:59:00 Test Item Value Reference Range Interpretation Comments PTT (test code = PTT) 27.6 s 22.9-35.8 [facility] TcttbjoCAEKXVKZEH3264-60-74 00:59:00 Test Item Value Reference Range Interpretation Comments PT (test code = PT) 14.1 s 12.0-14.7 [facility] LccbltvXXBJJGWQYO8949-39-56 00:59:64402Wuvwcmys HermannHEMATOLOGY 2015-07-07 00:59:009.2[facility] BxaqvjkRBZLSNLBHT5332-27-05 00:59:0040.9[facility] EywporjATDMHFZIIR1600-22-47 00:59:004.52[facility] LgzroyoPPSRFUYWWU8624-90-02 00:59:0013.6[facility] WjseeaiZUEBBPGCPT5080-30-02 00:59:0013.1[facility] JDMEUUBOGG4822-63-77 00:59:0090.4[facility] TvgdgjxPJNHHMQTJV3180-84-89 00:59:00 Test Item Value Reference Range Interpretation Comments MCH (test code = MCH) 30.1 pg 27.0-31.0 [facility] XrpgissOWVCPPJDBS6784-77-98 00:59:0033.3[facility]annHEMATOLOGY 2015-07-07 00:59:0013.4[facility] YLENFAS1297-04-13 17:59:00 Negative (07/02/15 11:59 AM)[facility]annCHEM SBNME7859-64-10 17:59:004.0 [facility]annCHEM FFXIK3905-82-66 17:59:0018[facility]annCHEM PANEL 2015-07-02 17:59:0011.1[facility]annCHEM YDBYN5124-70-77 17:59:001.0[facility]annCHEM VDOBR8546-31-42 17:59:0056[facility]annCHEM GTUBI0881-70-62 17:59:009.4[facility]annCHEM GRQFR1363-27-36 17:59:38128Wzkytyfe HermannCHEM ZQNPK9507-60-95 17:59:004.1[facility]annCHEM TWZQP1460-95-95 17:59:79090 [facility]annCHEM JFQGS7106-65-11 17:59:001.01[facility]annCHEM PANEL 2015-07-02 17:59:0018[facility]annCHEM CDYLV6915-53-51 17:59:58064Oexopwxo HermannCHEM KQWQU5798-19-08 17:59:0083[facility]annCHEM ACYWI7056-12-44 17:59:0013[facility]annCHEM VHDCW7139-40-40 17:59:008.1[facility]annCHEM UIRNI8095-12-32 17:59:000.6[facility]annCHEM YCVOV2643-86-93 17:59:0026 [facility]annCHE[facility] LSEBI8721-47-48 17:59:004.1[facility]annCHEM PANEL 2015-07-02 17:59:0036[facility] IymnuhbMMBINVLXYV9911-15-15 17:59:0033.7[facility] XuldbjyIKDWLANBYK9650-36-75 17:59:0013.6[facility] EwkvhhvJELSEVFSBS3538-18-58 17:59:0090.4[facility] EmjysslECLZRJYHFF6746-77-13 17:59:0040.4[facility] RPCMVZXBCQ4267-85-32 17:59:00 Test Item Value Reference Range Interpretation Comments MCH (test code = MCH) 30.5 pg 27.0-31.0 [facility] CmysxanIZCLOPJACF2903-51-10 17:59:99950Vpewcihp HermannHEMATOLOGY 2015-07-02 17:59:0013.2[facility] ZjrpejzFJKMXRSMHX0211-11-37 17:59:008.7[facility] KjhptatSLSEVYXRZW1868-53-69 17:59:004.47[facility] OqtcyemKCKCLZOGBT8754-81-75 17:59:006.5[facility] SgtpxdbVMROFOOPQH4547-30-16 17:59:000.1[facility] [place] TEBWAISCUU7868-16-54 17:59:000.4[facility] PejwosbSVRRGVTXIJ8956-03-90 17:59:001.9 [facility] SazpmpwAAWBJCKTPT1048-71-00 17:59:004.1[facility] HermannHEMATOLOGY 2015-07-02 17:59:005.6[facility] KjfwguxWPXDGDYJWX7964-60-46 17:59:001.3[facility] HpewhvjITULNOAEWG6821-68-35 17:59:0029.2[facility] PdqumkuGQYRXIFTUW6976-85-77 17:59:000.8[facility] AwnlxobAIYXSNNLPH8885-68-96 17:59:0063.1[facility] [place] OYJPJJRPNW1614-92-98 17:59:00 Test Item Value Reference Range Interpretation Comments PTT (test code = PTT) 28.1 s 22.9-35.8 [facility] ByzurmcSLOKTUKYVG9007-92-71 17:59:001.11[facility] HermannHEMATOLOGY 2015-07-02 17:59:00 Test Item Value Reference Range Interpretation Comments PT (test code = PT) 14.6 s 12.0-14.7 [facility] ZNHLD6878-80-17 17:59:001.021[facility] VFLTE7056-96-44 17:59:005.0[facility] BETEE0163-25-16 17:59:00 Yellow *NA*(07/02/15 11:59 AM)[facility] IZSPJ8354-08-61 17:59:003 [facility] KDQLU0355-97-84 17:59:00Marked *ABN*(07/02/15 11:59 AM) [facility] HSBRW9712-95-76 17:59:001[facility] JBQBZ8732-46-62 17:59:00Negative *NA*(07/02/15 11:59 AM)[facility] PXXQU0681-07-13 17:59:00Negative (07/02/15 11:59 AM)[facility] YIIFI4246-65-71 17:59:003[facility] MSPTX5708-35-33 17:59:00 Negative (07/02/15 11:59 AM)[facility] TIZSS2944-97-44 17:59:00 Negative (07/02/15 11:59 AM)[facility] WIXZCKN9021-36-82 17:59:00 Negative (07/02/15 11:59 AM)[facility]annCHEM OBIMV7451-32-83 17:59:004.0 [facility]annCHEM DOOMS3284-25-89 17:59:0018[facility]annCHEM PANEL 2015-07-02 17:59:0011.1[facility] HermannCHEM AHGZW5047-89-54 17:59:001.0[facility]annCHEM MHGGW2723-60-27 17:59:0056[facility]annCHEM ZMUJS8151-92-15 17:59:009.4[facility]annCHEM QAJCL1568-40-62 17:59:66108Xpfwwkon HermannCHEM QUADZ0582-81-05 17:59:004.1[facility]annCHEM NBCRI6125-34-95 17:59:69879 [facility]annCHEM AJAYX2172-79-51 17:59:001.01[facility]annCHEM PANEL 2015-07-02 17:59:0018[facility]annCHEM EYAJA4195-40-73 17:59:31996Ttkitkvd HermannCHEM UOCSA8576-69-90 17:59:0083[facility]annCHEM ZKRUX9186-65-16 17:59:0013[facility]annCHEM CAVID6213-55-02 17:59:008.1[facility]annCHEM CMMKD2481-61-08 17:59:000.6[facility] HermannCHEM OTZYC1958-77-01 17:59:0026 [facility]annCHEM VQWEW2447-04-08 17:59:004.1[facility] HermannCHEM PANEL 2015-07-02 17:59:0036[facility] PviqfhvPDBFKXRFSN8718-32-94 17:59:0033.7[facility] TuzbaakZJNMAAOPKF9500-22-85 17:59:0013.6[facility] CuzssnqDYFEOYSRMA6507-67-72 17:59:0090.4[facility] EbzktqdLDYQYSXRSY3455-20-20 17:59:0040.4[facility] [place] TDQJNNSNXX7288-84-00 17:59:00 Test Item Value Reference Range Interpretation Comments MCH (test code = MCH) 30.5 pg 27.0-31.0 [facility] DbslwwnOZHQTJQESM9638-41-19 17:59:63357Jqrsdmoo HermannHEMATOLOGY 2015-07-02 17:59:0013.2[facility] LtufoflRNBXUVLOPV5381-18-70 17:59:008.7[facility] VutuqiiOLQHIYDDJP9189-90-98 17:59:004.47[facility] GjxarkwNGCJPLVAXP0645-06-73 17:59:006.5[facility] TeskohtMFKDOHFSEK8580-00-88 17:59:000.1[facility] [place] JLEDATXNBN5585-77-55 17:59:000.4[facility] FdhhkfiSSEJGUOYNZ9816-15-01 17:59:001.9 [facility] TfgzubpVGTBBRPPDC3215-83-46 17:59:004.1[facility]annHEMATOLOGY 2015-07-02 17:59:005.6[facility] LthawimIEFRDAMHAQ9934-66-24 17:59:001.3[facility] IjhaapaKYHEFJXUXF1413-28-37 17:59:0029.2[facility] TeeirxrEBAHOIYVAE2409-37-94 17:59:000.8[facility] NhjlcbcTQTHSEUCDJ1254-05-16 17:59:0063.1[facility] FEHLEOCCFG3647-25-59 17:59:00 Test Item Value Reference Range Interpretation Comments PTT (test code = PTT) 28.1 s 22.9-35.8 [facility] OhzjlmeLDLIZCBKLO1289-24-07 17:59:001.11[facility]annHEMATOLOGY 2015-07-02 17:59:00 Test Item Value Reference Range Interpretation Comments PT (test code = PT) 14.6 s 12.0-14.7 [facility] GCYSR7454-99-42 17:59:001.021[facility] PEACX1278-57-47 17:59:005.0[facility] XQBGB6743-26-96 17:59:00 Yellow *NA*(07/02/15 11:59 AM)[facility] PPWXF9179-22-76 17:59:003 [facility] DHNCX2755-66-34 17:59:00Marked *ABN*(07/02/15 11:59 AM) [facility] DQWXQ4467-60-18 17:59:001[facility] IPJLW4784-12-93 17:59:00Negative *NA*(07/02/15 11:59 AM)[facility] WVFIY0375-44-46 17:59:00Negative (07/02/15 11:59 AM)[facility] SMPPD2500-40-98 17:59:003[facility] RYILJ3374-94-96 17:59:00 Negative (07/02/15 11:59 AM)[facility] TKOBT9374-52-23 17:59:00 Negative (07/02/15 11:59 AM)[facility] QPSNPVO8359-10-19 17:59:00 Negative (07/02/15 11:59 AM)[facility]annCHEM IPLZL2322-64-34 17:59:004.0 [facility]annCHEM BYTGW0504-46-20 17:59:0018[facility]annCHEM PANEL 2015-07-02 17:59:0011.1[facility]annCHEM KTOKX2612-90-17 17:59:001.0[facility]annCHE[facility] CVJQN2487-88-98 17:59:0056[facility]annCHE[facility] MLXJK2501-98-79 17:59:009.4[facility]annCHEM BADHT3964-66-71 17:59:42030Jcyvadyu HermannCHEM QPHRV8199-95-15 17:59:004.1[facility]annCHEM GMWBY2354-48-24 17:59:40037 [facility]annCHE[facility] EBYBZ0976-51-15 17:59:001.01[facility]annCHEM PANEL 2015-07-02 17:59:0018[facility]annCHEM FPMNF0507-15-04 17:59:36385Tuomhxft HermannCHEM CYLXP9680-52-94 17:59:0083[facility]annCHEM LRYJH8779-54-70 17:59:0013[facility]annCHEM GTOHN1319-66-60 17:59:008.1[facility]annCHEM XLJKJ2894-18-22 17:59:000.6[facility]annCHEM GNXXC1584-95-56 17:59:0026 [facility]annCHE[facility] HNLMI2573-01-95 17:59:004.1[facility]annCHEM PANEL 2015-07-02 17:59:0036[facility] CtyzxogBXDFUTSPQC3028-21-78 17:59:0033.7[facility] BcckldhVUBIBBLVTT3363-84-30 17:59:0013.6[facility] NuvfgwmRQIZQVJWQF1781-37-70 17:59:0090.4[facility] MvkybphRMFFKUWPGN3739-35-71 17:59:0040.4[facility] WZLIECXDAD5084-02-92 17:59:00 Test Item Value Reference Range Interpretation Comments MCH (test code = MCH) 30.5 pg 27.0-31.0 [facility] GkwvelrFRCDNIXWPN4078-54-45 17:59:93920Pktrfqxx HermannHEMATOLOGY 2015-07-02 17:59:0013.2[facility] AtdexrtUSJJXJOIOF0365-76-23 17:59:008.7[facility] EfdkoboNDZHMARQAM4547-54-64 17:59:004.47[facility] BnwwyaqSSHUXIDGXI9472-65-66 17:59:006.5[facility] HqltqhzKRGNHGXCWI6341-65-77 17:59:000.1[facility] [place] IHRYBZFRJE6110-28-11 17:59:000.4[facility] NclaphdCOELGZZQNT4980-04-92 17:59:001.9 [facility] EewfexmKEJBIQJTXL1361-41-51 17:59:004.1[facility]annHEMATOLOGY 2015-07-02 17:59:005.6[facility] IodqaqsCEGOLHXRSP9565-70-91 17:59:001.3[facility] CeaalktVXUDGSQROJ2568-02-58 17:59:0029.2[facility] GuvufaoKDRRCWWHJH6453-50-74 17:59:000.8[facility] LonfysbVHDLAREHHF1193-96-01 17:59:0063.1[facility] [place] SQDDPLSLSI3484-50-53 17:59:00 Test Item Value Reference Range Interpretation Comments PTT (test code = PTT) 28.1 s 22.9-35.8 [facility] CvnepmwEEADSGRDGW6440-74-42 17:59:001.11[facility]annHEMATOLOGY 2015-07-02 17:59:00 Test Item Value Reference Range Interpretation Comments PT (test code = PT) 14.6 s 12.0-14.7 [facility] HKKGP4617-45-57 17:59:001.021[facility] AMNVN2134-36-33 17:59:005.0[facility] KMWIF3525-57-07 17:59:00 Yellow *NA*(07/02/15 11:59 AM)[facility] EXWKJ6224-69-88 17:59:003 [facility] OLUMC3272-26-76 17:59:00Marked *ABN*(07/02/15 11:59 AM) [facility] XUCSQ8216-14-77 17:59:001[facility] LCTAD0221-84-79 17:59:00Negative *NA*(07/02/15 11:59 AM)[facility] ARZXO5843-79-41 17:59:00Negative (07/02/15 11:59 AM)[facility] GVLOY3756-30-96 17:59:003[facility] HFZWI6625-36-91 17:59:00 Negative (07/02/15 11:59 AM)[facility] LOZKP2872-18-60 17:59:00 Negative (07/02/15 11:59 AM)[facility]BL[facility] YPKHGBX3492-17-00 17:17:00 Product available 1(07/02/15 11:17 AM)[facility]BL[facility]ANK RESULTS 2015-07-02 17:17:00Product available 1(07/02/15 11:17 AM)[facility] TOYQNJM3573-81-91 17:17:00Product available 1(07/02/15 11:17 AM)[facility] HGEXWAH7452-38-80 11:47:00Negative (08/11/14 6:47 AM)[facility]annCHEM MQWGJ5098-90-56 11:47:003.4[facility]annCHEM OBCYW3269-44-06 11:47:008.5[facility]annCHEM LLYEN2631-86-04 11:47:0057[facility]annCHEM ZGDPZ3766-97-10 11:47:001.0[facility]annCHEM BSDVS5497-57-79 11:47:41619 [facility]annCHE[facility] OPMTY4382-32-81 11:47:004.1[facility]annCHEM PANEL 2014-08-11 11:47:04615Ruwenosd HermannCHEM WOHMR4779-81-60 11:47:0066[facility]annCHEM YIZCQ2906-82-79 11:47:000.3[facility]annCHEM RHWPL3389-09-65 11:47:0013[facility]annCHEM UXDXG9530-50-00 11:47:0016[facility]annCHEM POJCQ7959-88-31 11:47:007.4[facility]annCHEM EXUCB6423-91-19 11:47:0026 [facility]annCHE[facility] YIKJU8656-85-68 11:47:0023[facility]annCHEM PANEL 2014-08-11 11:47:0097[facility]annCHEM TWICN9630-29-27 11:47:0023[facility]annCHEM SGHVJ9756-41-17 11:47:0010.1[facility]annCHEM QBYMZ6124-87-91 11:47:004.0[facility]annCHEM MBEEK5895-97-87 11:47:000.8[facility] PMPIBQCIMZ5617-56-66 11:47:008.9[facility] SjemxxxXPKETAAIZA5830-66-20 11:47:72346 [facility] LclcfdqYDTTXSZMDU4805-49-44 11:47:0012.0[facility]annHEMATOLOGY 2014-08-11 11:47:003.88[facility] HdirwwoDQEEVPAEJS2692-38-05 11:47:006.7[facility] TllixegSIGFVLHYGO0184-93-70 11:47:0013.6[facility] EeubknuSMSMETDDOE8253-07-69 11:47:0034.0[facility] WqarjjxDITDQGIDRR1529-18-13 11:47:00 Test Item Value Reference Range Interpretation Comments MCH (test code = MCH) 30.9 pg 27.0-31.0 [facility] UfrwtdeFDHHPWSIMY7578-82-89 11:47:0090.7[facility] HermannHEMATOLOGY 2014-08-11 11:47:0035.2[facility] NlrhpgqXAQGBKUNRD2293-71-63 11:47:003.9[facility] HhnaxttUJVDPBFGYA0099-05-84 11:47:002.1[facility] HiumikqNEJWIQEWHO6293-31-29 11:47:007.2[facility] SamyybaQIZVOXPDUE9391-16-61 11:47:002.9[facility] ERQKUJTROY2110-81-33 11:47:000.6[facility] TgadvtmTDSVVOSQYU5550-35-88 11:47:000.5 [facility] MpksftgSYDNPIGLID3097-72-83 11:47:000.2[facility]annHEMATOLOGY 2014-08-11 11:47:0031.7[facility] JdeikehKVUZAFECIX0214-23-11 11:47:0057.6[facility] FgfraooTMQHUBFPXD4616-63-02 11:47:001.00[facility] CkzpweePNVKZHYPQU0717-09-54 11:47:00 Test Item Value Reference Range Interpretation Comments PTT (test code = PTT) 28.3 s 22.9-35.8 [facility] UayejpbQBAFGQSSSP5695-57-37 11:47:00 Test Item Value Reference Range Interpretation Comments PT (test code = PT) 13.2 s 12.0-14.7 [facility] PETMXDU4055-69-55 11:47:00Negative (08/11/14 6:47 AM) [facility]annCHEM EDKKO2358-09-15 11:47:003.4[facility]annCHEM PANEL 2014-08-11 11:47:008.5[facility]annCHEM XZFYJ1301-96-69 11:47:0057[facility]annCHEM XXQKZ6357-49-34 11:47:001.0[facility]annCHEM FFMWG0285-14-14 11:47:68358Fckmmfra HermannCHEM MANJY8082-10-65 11:47:004.1[facility]annCHEM TYTZE5572-96-79 11:47:09319Icpzgcwf HermannCHEM EECOD3104-61-20 11:47:0066 [facility]annCHEM FACLR7077-78-27 11:47:000.3[facility]annCHEM PANEL 2014-08-11 11:47:0013[facility]annCHEM SBASP4679-19-09 11:47:0016[facility]annCHEM ELPAM9581-83-98 11:47:007.4[facility]annCHEM OUHYL1685-12-61 11:47:0026[facility]annCHEM KONXA4222-93-17 11:47:0023[facility]annCHEM PQXHM7516-58-13 11:47:0097[facility]annCHEM MTNQT6191-74-51 11:47:0023 [facility]annCHEM OCHPM9367-33-00 11:47:0010.1[facility]annCHEM PANEL 2014-08-11 11:47:004.0[facility]annCHEM XHKQG7249-05-03 11:47:000.8[facility] NmzewfhOUCYFYOOEO1250-11-92 11:47:008.9[facility] MliwxqeHHJMOFLDUY8721-07-23 11:47:22538Tfowjsnv ZwebpypYKLIIQCEPN8946-83-63 11:47:0012.0[facility] JAFIBNNYKR4909-21-12 11:47:003.88[facility] VyfdmijRRDYHGHINW7162-64-29 11:47:00 6.7[facility] ZfpctzwKIXHCYCOHI6224-85-11 11:47:0013.6[facility]annHEMATOLOGY 2014-08-11 11:47:0034.0[facility] BcyjtzwTUPBLOEDXS7908-84-14 11:47:00 Test Item Value Reference Range Interpretation Comments MCH (test code = MCH) 30.9 pg 27.0-31.0 [facility] QihcatnWOKPLCJAEM9145-21-90 11:47:0090.7[facility]annHEMATOLOGY 2014-08-11 11:47:0035.2[facility] IrfagyhKKPCNXNZUW9950-51-61 11:47:003.9[facility] AjkhedmIYZPAWVZIU9069-68-55 11:47:002.1[facility] MkfipdrEJIMXXYVLY2653-10-52 11:47:007.2[facility] AwnthyoDXHQIXXBXS1232-52-37 11:47:002.9[facility] UVJUSZLQPW0868-30-82 11:47:000.6[facility] XkssdxhUPEHLDTEIH3183-80-52 11:47:000.5 [facility] ZpqcfwxKQLVIDZLYC6863-96-87 11:47:000.2[facility]annHEMATOLOGY 2014-08-11 11:47:0031.7[facility] PjtkajmHRWUFTNJEW9370-98-41 11:47:0057.6[facility] IjtuyyxAAVFFGKEFK0760-78-16 11:47:001.00[facility] GwjhsmyRZIUNYQKAN0609-28-25 11:47:00 Test Item Value Reference Range Interpretation Comments PTT (test code = PTT) 28.3 s 22.9-35.8 [facility] FvbxltsHWQLLUQMYF9153-01-80 11:47:00 Test Item Value Reference Range Interpretation Comments PT (test code = PT) 13.2 s 12.0-14.7 [facility] HermannBLOOD BANK QRCPCQR2686-69-50 11:47:00Negative (08/11/14 6:47 AM) [facility]annCHEM UMJXU7954-00-55 11:47:003.4[facility] HermannCHEM PANEL 2014-08-11 11:47:008.5[facility] HermannCHEM ARUAK4837-94-64 11:47:0057[facility]annCHEM BZGHG6305-41-86 11:47:001.0[facility] HermannCHEM XGDWP7270-86-85 11:47:72485Mnbudsob HermannCHEM AAAHU7218-42-99 11:47:004.1[facility] HermannCHEM GBRIH1064-48-24 11:47:49515Hxcadrks HermannCHEM VOSCE3348-76-34 11:47:0066 [facility]annCHEM CXUVH4231-50-74 11:47:000.3[facility] HermannCHEM PANEL 2014-08-11 11:47:0013[facility]annCHEM FGORS8036-26-83 11:47:0016[facility]annCHEM EHTII2984-37-60 11:47:007.4[facility]annCHEM OVAHO2755-08-22 11:47:0026[facility]annCHEM XPLXM8003-39-11 11:47:0023[facility]annCHEM PAIEO3597-63-73 11:47:0097[facility]annCHEM ICFAI3446-80-07 11:47:0023 [facility]annCHEM FQOYH0425-41-59 11:47:0010.1[facility] HermannCHEM PANEL 2014-08-11 11:47:004.0[facility]annCHEM FDQVQ8014-70-49 11:47:000.8[facility] QmvbatqXYGBVBYWDL2105-82-16 11:47:008.9[facility] DconemzXTORYGMLJL1358-82-16 11:47:12173Pfdnsbpt AayesnxBPQWBPNYME7236-06-58 11:47:0012.0[facility] MUVWDSAGEN4521-40-52 11:47:003.88[facility] WvkjtxfBFLCVBLECH6340-46-86 11:47:00 6.7[facility] YkwcbtyGFPRYWPPQR5503-59-31 11:47:0013.6[facility]annHEMATOLOGY 2014-08-11 11:47:0034.0[facility] CtarirbNDGRJREOZN8640-06-00 11:47:00 Test Item Value Reference Range Interpretation Comments MCH (test code = MCH) 30.9 pg 27.0-31.0 [facility] GbzjcvnNSXSFIKZBT1461-98-81 11:47:0090.7[facility]annHEMATOLOGY 2014-08-11 11:47:0035.2[facility] UvxpieaSTVKUTWBPK9042-06-52 11:47:003.9[facility] EihdelfEKNLQUBOKF6678-43-43 11:47:002.1[facility] VzapuvpETZYSTCWDY3876-81-42 11:47:007.2[facility] DgfrzgwJYGBTPSFBL9801-71-99 11:47:002.9[facility] DKYZXJGHML1308-58-87 11:47:000.6[facility] SfimobjFXNFNSOZLH8553-58-67 11:47:000.5 [facility] UgeqbiwPHWJGPPEEH3792-54-80 11:47:000.2[facility] HermannHEMATOLOGY 2014-08-11 11:47:0031.7[facility] YqlebgyMBHNGCVVHZ6055-14-65 11:47:0057.emorial BtueuuzGFCKUOQZZM5636-58-31 11:47:001.00[facility] CvqroniHWCHYKKTWU2068-54-33 11:47:00 Test Item Value Reference Range Interpretation Comments PTT (test code = PTT) 28.3 s 22.9-35.8 [facility] NrsajayZQYZWFZFYC1865-39-31 11:47:00 Test Item Value Reference Range Interpretation Comments PT (test code = PT) 13.2 s 12.0-14.7 [facility] WattpadannBLOOD BANK GFXJQFG9948-91-31 11:28:00Product available 1(08/11/14 6:28 AM)[facility] WattpadannBLOOD BANK XEXOLBW6922-20-61 11:28:00Product available 1(08/11/14 6:28 AM)[facility]annBL[facility] BANK UOZYQKU3306-54-67 11:28:00Product available 1(08/11/14 6:28 AM)[facility] OdjaurgGVRBXCKAAJHJ0513-24-19 09:39:0011.8 [facility] DyfvoowMEEBDKRJNWJA2427-84-14 09:39:0057[facility] HermannELECTROLYTES 2014-05-20 09:39:98848Bwuyqqmv JcrdbamTMKQCGZXDXXT3674-45-09 09:39:0024[facility] JbdkzgqRXBLQQKNQFZC2514-68-65 09:39:003.8[facility] ZbdfusjJMOFYCXOZDSD4867-69-39 09:39:65822Yenslpkj IhiyoleBXNBJTBBAFHC1782-08-46 09:39:007.4[facility] [place] WLOZUMZQWAQV1730-95-29 09:39:001.0[facility] PqshiiwPRCTXQXWCBMU4494-23-84 09:39:0017[facility] NgwokptNKBGGAMMIBFL5901-11-00 09:39:0091[facility] FMYREYROIX7644-10-78 09:39:009.1[facility] CitvvqjWFYOFIHPQO4442-22-98 09:39:21058 [facility] GujotwxXGWEQHSAFY2248-61-22 09:39:0034.1[facility] HermannHEMATOLOGY 2014-05-20 09:39:0013.1[facility] KwkihnlINZONSNWAI5195-71-26 09:39:009.8[facility] YhbcoadTHXNHJICEH6689-68-03 09:39:0011.3[facility] BbirlxsKSLZFCALUY9887-87-40 09:39:003.48[facility] TncrrxnDIVRABCNVO5279-22-72 09:39:0033.0[facility] NSIJJZRQSW5291-88-83 09:39:00 Test Item Value Reference Range Interpretation Comments MCH (test code = MCH) 32.3 pg 27.0-31.0 [facility] UdnzbizTSCFBJWVFA6743-85-11 09:39:0094.7[facility] HermannHEMATOLOGY 2014-05-20 09:39:000.1[facility] LeuymlyWOIUGAIYIP0912-17-85 09:39:0021.4[facility] McysmmoWPEYSEDVLO4475-68-27 09:39:0070.4[facility] OnpyygjYIERSWWXIV6719-33-78 09:39:000.2[facility] ZsanxvmUKOEROVHDN5000-90-66 09:39:006.9[facility] ENYZDSGVWC4514-82-46 09:39:000.7[facility] AscvxvgLDEJGBZJGW6048-69-56 09:39:002.1 [facility] IbemggeQKVFYNJMAU6115-55-03 09:39:001.1[facility] HermannHEMATOLOGY 2014-05-20 09:39:006.9[facility] PxamivsHKQWTVIYNIFI7922-79-02 09:39:0011.8 [facility] XbtvsbiTRHEXFZECXFF3892-38-47 09:39:0057[facility] HermannELECTROLYTES 2014-05-20 09:39:72036Qcwelacg WqoznivYWHOIXYQRQAE0900-53-26 09:39:0024[facility] UckmuaxQNBCUEJXQZNG3290-00-86 09:39:003.8[facility] AzuiohzVWZVKJTWQQXK5801-15-38 09:39:91909Ljmexgxw GgluirhXXHZIFPNPOXO6657-86-17 09:39:007.4[facility] LPLBTQBZPBEJ8805-63-87 09:39:001.0[facility] CovtxhvFYYNFXBNSZXH3662-60-71 09:39:0017[facility] OtgccinXSBFRRYEUBZG3174-29-08 09:39:0091[facility] JFXXURIOAO2838-82-08 09:39:009.1[facility] KsogunhWRJURLPMTZ0055-37-53 09:39:19238 [facility] NdrjjnmNULVGTCLJR1094-93-90 09:39:0034.1[facility] HermannHEMATOLOGY 2014-05-20 09:39:0013.1[facility] LgtbityRQDDZRFHLG9872-28-90 09:39:009.8[facility] NqnzhtsPTLQUNSJTL4031-16-31 09:39:0011.3[facility] WqbbptgODGKTLKMZV6418-06-87 09:39:003.48[facility] LniyplpHZBSVCJTGK0445-42-80 09:39:0033.0[facility] XNURHGTMSI5147-73-26 09:39:00 Test Item Value Reference Range Interpretation Comments MCH (test code = MCH) 32.3 pg 27.0-31.0 [facility] VlbtqngENUCMYXTXU7829-88-45 09:39:0094.7[facility] HermannHEMATOLOGY 2014-05-20 09:39:000.1[facility] QgvsubgPWFYJXTQXZ8282-14-06 09:39:0021.4[facility] TrgcrlaPZCZSLISOC4568-75-27 09:39:0070.4[facility] IrqndfhMJUIRCIMUJ2072-96-87 09:39:000.2[facility] UhwevexNPNYECRLPP3944-62-27 09:39:006.9[facility] TFAHKBJNGG9100-86-50 09:39:000.7[facility] VhzqvftJGNBQRVYRK5356-50-83 09:39:002.1 [facility] QjqxasdYTTGBUCEPY2064-41-28 09:39:001.1[facility] HermannHEMATOLOGY 2014-05-20 09:39:006.9[facility] YwpjapxXZOBJRMTOFPX6196-27-09 09:39:0011.8 [facility] WusrsydTJBINVCJGYXB3368-35-72 09:39:0057[facility] HermannELECTROLYTES 2014-05-20 09:39:12760Tldijyfw NaacmzsRSTJHDZDMDYR8748-62-25 09:39:0024[facility] DhbvrndTDODZHTCATTS3221-43-86 09:39:003.8[facility] WpdbjlkXTUGBKMDTFNH8316-80-38 09:39:82460Egwzochx GrcxzvrONVWHIDAQJLB7748-62-57 09:39:007.4[facility] [place] NFISFBSLWRIN3592-35-68 09:39:001.0[facility] ExlbmmqXQUUKAXNPIGC4184-47-31 09:39:0017[facility] OdsundtBSJRDZUGATHT9878-08-95 09:39:0091[facility] [place] ZHRCIVGYUD7457-23-04 09:39:009.1[facility] GtiggvjOELRCFJMMI3226-96-51 09:39:57799 [facility] SqlnranPFWXJBXZGE7580-35-64 09:39:0034.1[facility] HermannHEMATOLOGY 2014-05-20 09:39:0013.1[facility] IpgkbrlQCTEKDIHNQ7557-19-87 09:39:009.8[facility] SwlsewfKLMWXBBGIQ9081-94-99 09:39:0011.3[facility] WxoseuqIFRYUYNMWE8674-59-53 09:39:003.48[facility] GlqfaadJCWNKGUVMI5935-12-71 09:39:0033.0[facility] UBMYBRFUJL3033-16-89 09:39:00 Test Item Value Reference Range Interpretation Comments MCH (test code = MCH) 32.3 pg 27.0-31.0 [facility] ZkaeewbYFPFYROWNE9638-85-36 09:39:0094.7[facility] HermannHEMATOLOGY 2014-05-20 09:39:000.1[facility] YqtstufYNMEWXWPWH0452-14-91 09:39:0021.4[facility] KjcmzfpYJBCEAKRNT2283-29-02 09:39:0070.4[facility] ElvbhdlNOHYVFJSIP8031-98-48 09:39:000.2[facility] PxwohurHABJFMACFR2469-01-15 09:39:006.9[facility] GMHEMVSTAX9540-54-43 09:39:000.7[facility] AkgtujoUWWNCNGHFP8888-96-12 09:39:002.1 [facility] CiimeveRIXVTAAECH6557-63-83 09:39:001.1[facility] HermannHEMATOLOGY 2014-05-20 09:39:006.9[facility] HermannCHEM MWSSU5385-62-66 01:25:0065[facility] HermannCHEM CZBFN2616-13-24 01:25:000.9[facility] ZofqhyfJFABLVWZVN7996-84-48 01:25:00 Test Item Value Reference Range Interpretation Comments PTT (test code = PTT) 32.6 s 22.9-35.8 [facility] RzqvpedJTCMMRYHGB6275-17-19 01:25:83891Gcofzhmu HermannCHEM PANEL 2014-05-20 01:25:0065[facility] HermannCHEM EIMPQ9449-69-08 01:25:000.9[facility] RkfzjwcOBZIJICCKL1223-10-95 01:25:00 Test Item Value Reference Range Interpretation Comments PTT (test code = PTT) 32.6 s 22.9-35.8 [facility] ZplzzczUHWXJMMUWZ0884-82-73 01:25:98595Guouksxo HermannCHEM PANEL 2014-05-20 01:25:0065[facility] HermannCHEM UOANS5460-32-11 01:25:000.9[facility] UhwotthKMBSLZMQMN7652-02-73 01:25:00 Test Item Value Reference Range Interpretation Comments PTT (test code = PTT) 32.6 s 22.9-35.8 [facility] TzqgtmpSJSVWGBBBI8320-87-07 01:25:06981Hzmqfqvs HermannBLOOD BANK NEXVVER5853-78-51 12:41:00Negative (05/19/14 6:41 AM)[facility]annCHEM PANEL 2014-05-19 12:41:001.0[facility] HermannCHEM XJNYI1498-58-17 12:41:0010.8[facility] HermannCHEM HTLZF6782-49-33 12:41:0016[facility] HermannCHEM FFKVJ4253-85-66 12:41:003.8[facility] HermannCHEM MRPSC0135-04-83 12:41:0057[facility] HermannCHEM JYMOM9789-50-34 12:41:003.8[facility] HermannCHEM MHTLU9978-59-66 12:41:67286 [facility]annCHEM YBTCD8537-72-41 12:41:001.0[facility] HermannCHEM PANEL 2014-05-19 12:41:80715Swjjirxd HermannCHEM YMPEM4635-29-00 12:41:008.7[facility] HermannCHEM VIBGU3652-85-06 12:41:000.5[facility] HermannCHEM EYEOH9557-13-56 12:41:0013[facility] HermannCHEM RYYFD8403-36-59 12:41:0066[facility] HermannCHEM KSZJU1872-75-92 12:41:007.5[facility] HermannCHEM PIWUR5734-41-13 12:41:003.7 [facility]annCHEM PEOWD0115-71-85 12:41:0025[facility]annCHEM PANEL 2014-05-19 12:41:0016[facility] HermannCHEM QGXPQ6660-05-49 12:41:0028[facility] HermannCHEM BQTQM6757-58-88 12:41:0097[facility] UtcncthDJGTIDBLCY1044-68-28 12:41:000.95[facility] RqlkmbeTHRJRGLYTV9454-40-50 12:41:00 Test Item Value Reference Range Interpretation Comments PT (test code = PT) 12.7 s 12.0-14.7 [facility] UkmjuakREDXCVALXD9090-96-61 12:41:00 Test Item Value Reference Range Interpretation Comments PTT (test code = PTT) 32.9 s 22.9-35.8 [facility] WmcmcsgRBVDFSUIKB3946-14-26 12:41:007.1[facility] HermannHEMATOLOGY 2014-05-19 12:41:0058.7[facility] OxiepvbVIFGKFVSBY5582-46-33 12:41:000.5[facility] XbfjaziRZPACSRDQO7663-35-27 12:41:0032.5[facility] AyqwhtsRPRTZDMXWY2002-23-72 12:41:003.5[facility] FqyjlqvGFSXGYUQUC5114-39-53 12:41:001.2[facility] WQQISYVABS0261-73-11 12:41:000.1[facility] YuldbuhZXJLKOOOLF7641-15-50 12:41:001.9 [facility] CtnlnarLGUOZZTWAM5588-36-82 12:41:000.4[facility] HermannHEMATOLOGY 2014-05-19 12:41:004.04[facility] YwyuwrfRMHZXBYXUH7452-27-89 12:41:005.9[facility] AlptibwQOQPLTSPFP8109-70-74 12:41:0038.5[facility] WyjjiqpZOPOMHLIMQ4290-31-34 12:41:0013.1[facility] DzasspeYJLXRHIGJD1688-17-16 12:41:0095.5[facility] OAKKCBNUFD9997-55-48 12:41:0034.0[facility] JmrdlvrEREZUBFQDK9898-96-09 12:41:00 Test Item Value Reference Range Interpretation Comments MCH (test code = MCH) 32.5 pg 27.0-31.0 [facility] UjjkrnsKVFEXNYOIH8160-23-96 12:41:0013.3[facility] HermannHEMATOLOGY 2014-05-19 12:41:009.6[facility] JqfdbphTSMTCFFLDR4686-16-76 12:41:84176Ollwubmq HermannBLOOD BANK CNGRBTT5352-75-85 12:41:00Negative (05/19/14 6:41 AM)[facility] HermannCHEM DPZNM8868-68-29 12:41:001.0[facility] HermannCHEM WPQXG7920-84-81 12:41:0010.8[facility] HermannCHEM THJYI9995-43-95 12:41:0016[facility] HermannCHEM YRDHP6390-23-79 12:41:003.8[facility] HermannCHEM NZYIH4178-80-02 12:41:0057 [facility]annCHEM SUPVO8849-40-56 12:41:003.8[facility] HermannCHEM PANEL 2014-05-19 12:41:70599Aagqxqwr HermannCHEM JXQTO4259-07-28 12:41:001.0[facility] HermannCHEM RHRLG9610-47-94 12:41:75645Zlgxxvoy HermannCHEM WFGHE6554-33-98 12:41:008.7[facility] HermannCHEM UTTCA6922-94-43 12:41:000.5[facility] HermannCHEM QCMFT0325-02-15 12:41:0013[facility] HermannCHEM CIFEJ5269-63-73 12:41:0066 [facility] HermannCHEM CHOKD7549-75-51 12:41:007.5[facility] HermannCHEM PANEL 2014-05-19 12:41:003.7[facility] HermannCHEM FQERR7753-17-24 12:41:0025[facility] HermannCHEM CCCII5763-89-39 12:41:0016[facility] HermannCHEM QJTVN7079-50-30 12:41:0028[facility] HermannCHEM SHRXK3700-40-60 12:41:0097[facility] WZKBBNJHCT4035-84-98 12:41:000.95[facility] YdkvctgYDLRAPMRBA0037-01-05 12:41:00 Test Item Value Reference Range Interpretation Comments PT (test code = PT) 12.7 s 12.0-14.7 [facility] StdmjohKIPOLQPZPJ9679-34-83 12:41:00 Test Item Value Reference Range Interpretation Comments PTT (test code = PTT) 32.9 s 22.9-35.8 [facility] DwtdhwiRPHIYJALCR3551-32-58 12:41:007.1[facility] HermannHEMATOLOGY 2014-05-19 12:41:0058.7[facility] PhlmqivRKENVHIDZE4692-61-32 12:41:000.5[facility] QmpwvtsSVSVVIJNJL6699-89-10 12:41:0032.5[facility] LmotpqsUSDABWYBJK3377-13-14 12:41:003.5[facility] OilzfcpBACKDDQLHA3853-60-25 12:41:001.2[facility] PESFDNQSWI2332-58-56 12:41:000.1[facility] NuqhdzrRCSGVOZJOI5505-34-72 12:41:001.9 [facility] RdniczhKRGWUAGIRE6575-65-93 12:41:000.4[facility] HermannHEMATOLOGY 2014-05-19 12:41:004.04[facility] JrmjwaoICSKEILNNZ4574-22-85 12:41:005.9[facility] UkiblvnXQZZNKZCQO8427-13-47 12:41:0038.5[facility] NlyvlarJALDJTZYBV1554-85-72 12:41:0013.1[facility] QhwfjqiQYJUAFCAAF1164-79-67 12:41:0095.5[facility] [place] WNBRKQVPUA4461-36-66 12:41:0034.0[facility] WalfsqdZWGZBOEVLF3894-61-29 12:41:00 Test Item Value Reference Range Interpretation Comments MCH (test code = MCH) 32.5 pg 27.0-31.0 [facility] MxpmjpcFKKTZIJQIT1139-94-14 12:41:0013.3[facility] HermannHEMATOLOGY 2014-05-19 12:41:009.6[facility] OtnfnbhSKKOCYDTXD2198-79-71 12:41:64585Lmdrgegi HermannBLOOD BANK IDMMDUM1724-44-60 12:41:00Negative (05/19/14 6:41 AM)[facility] HermannCHEM FRUSK4963-29-80 12:41:001.0[facility] HermannCHEM CFBRT9442-03-30 12:41:0010.8[facility] HermannCHEM UILYU2723-44-66 12:41:0016[facility] HermannCHEM KJXOV5229-71-71 12:41:003.8[facility] HermannCHEM IYFJR8007-34-44 12:41:0057 [facility] HermannCHEM MKFBG5415-14-38 12:41:003.8[facility] HermannCHEM PANEL 2014-05-19 12:41:56738Trgvvcac HermannCHEM BENIH4407-02-83 12:41:001.0[facility] HermannCHEM ZJGPA3692-23-44 12:41:50811Yfcgcodk HermannCHEM GEYAG7216-03-32 12:41:008.7[facility] HermannCHEM RYGXO8820-53-26 12:41:000.5[facility] HermannCHEM RCAHI8088-16-83 12:41:0013[facility] HermannCHEM XAFFE5835-42-79 12:41:0066 [facility] HermannCHEM OTXIS4934-40-66 12:41:007.5[facility] HermannCHEM PANEL 2014-05-19 12:41:003.7[facility] HermannCHEM IJTGV7611-79-03 12:41:0025[facility] HermannCHEM WNSJZ6100-74-63 12:41:0016[facility] HermannCHEM HEEMB4621-49-41 12:41:0028[facility] HermannCHEM DMSAQ6116-88-15 12:41:0097[facility] FIJUMSPYFJ5549-79-73 12:41:000.95[facility] NbglefaTJAACEEOBI5615-40-63 12:41:00 Test Item Value Reference Range Interpretation Comments PT (test code = PT) 12.7 s 12.0-14.7 [facility] MiqgnaaTWPDGWIYVG6030-52-01 12:41:00 Test Item Value Reference Range Interpretation Comments PTT (test code = PTT) 32.9 s 22.9-35.8 [facility] LymgmihKDZGBGWLXG9062-15-48 12:41:007.1[facility] HermannHEMATOLOGY 2014-05-19 12:41:0058.7[facility] UmaqzjoUATIDPXAYN3872-35-15 12:41:000.5[facility] YeycxkeNJEDEVBHHV0979-29-08 12:41:0032.5[facility] VpmnrknDUBTGWBWFG0753-83-74 12:41:003.5[facility] WfvaqfuEUSROLFBRQ4812-68-95 12:41:001.2[facility] JAIWKXUNNF7415-42-16 12:41:000.1[facility] KkbrumhTSAHJGBIAP0574-12-86 12:41:001.9 [facility] CtdgpmyJNXYFRREBJ0405-52-84 12:41:000.4[facility]annHEMATOLOGY 2014-05-19 12:41:004.04[facility] FhjzwrhRHGXQLPJNG0482-20-42 12:41:005.9[facility] SvnplhuRXENEJSWWM3716-31-54 12:41:0038.5[facility] UbzjidvPQPHOSIGAN4788-67-56 12:41:0013.1[facility] LefgsqvXWNTNOTSZB7093-58-11 12:41:0095.5[facility] MCSHQISQUP1308-33-60 12:41:0034.0[facility] CmybsttDBOZXIGBMH5043-21-34 12:41:00 Test Item Value Reference Range Interpretation Comments MCH (test code = MCH) 32.5 pg 27.0-31.0 [facility] XxasxioEKHKDDOXFZ7147-82-30 12:41:0013.3[facility]annHEMATOLOGY 2014-05-19 12:41:009.6[facility] CcfqxkeAQKQANDKOA6100-23-76 12:41:58938Zazaezoj HermannBLOOD BANK KKJWXVL3658-90-19 12:26:00Product available 1(05/19/14 6:26 AM) [facility] QZZJGPV2514-51-98 12:26:00Product available 1(05/19/14 6:26 AM)[facility] URKMNSI5618-87-11 12:26:00Product available 1(05/19/14 6:26 AM)[facility] NHDZN9443-32-19 19:46:193[facility] WYKBE7823-04-93 19:46:192[facility] STOOL 2013-07-09 19:46:19Trace *ABN*(07/09/2013 13:46:19 [place])[facility] HNORH1234-43-37 19:46:199[facility] STOOL 2013-07-09 19:46:19Negative (07/09/2013 13:46:19 [place])[facility] UNXMM7867-64-49 19:46:19Negative (07/09/2013 13:46:19 [place])[facility] PYGPF0578-69-03 19:46:19Negative *NA*(07/09/2013 13:46:19 [place])[facility] ST[facility]OL 2013-07-09 19:46:196.0[facility] JSXOC1065-50-92 19:46:19Marked *ABN*(07/09/2013 13:46:19 [place])[facility] ST[facility]OL 2013-07-09 19:46:191.010[facility] MDOTL9610-38-96 19:46:193 [facility] GPPJU1375-43-16 19:46:192[facility] OIKDS0583-95-03 19:46:19Trace *ABN*(07/09/2013 13:46:19 [place])[facility] PWACG5923-39-29 19:46:199[facility] STOOL 2013-07-09 19:46:19Negative (07/09/2013 13:46:19 [place])[facility] OPFEW2666-15-86 19:46:19Negative (07/09/2013 13:46:19 [place])[facility] CIJHP0009-34-60 19:46:19Negative *NA*(07/09/2013 13:46:19 [place])[facility] ST[facility]OL 2013-07-09 19:46:196.0[facility] HYAPJ5830-56-25 19:46:19Marked *ABN*(07/09/2013 13:46:19 [place])[facility] STOOL 2013-07-09 19:46:191.010[facility] DRRBI9717-34-81 19:46:193 [facility] WJJFX7497-03-87 19:46:192[facility] MTIKR6088-89-29 19:46:19Trace *ABN*(07/09/2013 13:46:19 [place])[facility] ZBNSD9560-00-38 19:46:199[facility] STOOL 2013-07-09 19:46:19Negative (07/09/2013 13:46:19 [place])[facility] MBMJW5203-63-91 19:46:19Negative (07/09/2013 13:46:19 [place])[facility] BVVND9406-45-24 19:46:19Negative *NA*(07/09/2013 13:46:19 [place])[facility] STOOL 2013-07-09 19:46:196.0[facility] UKGBQ6126-88-44 19:46:19Marked *ABN*(07/09/2013 13:46:19 [place])[facility] STOOL 2013-07-09 19:46:191.010[facility]annCARDIAC VDLMHYA3095-90-51 17:15:00 <0.02[facility]annCARDIAC FGJBKDP4450-96-09 17:15:0034[facility] [place] CARDIAC OEZQMQL9531-25-52 17:15:00<0.5[facility]annCARDIAC ENZYMES 2013-07-09 17:15:0033[facility]annCARDIAC LLDKEUE3221-24-12 17:15:00<1.5 [facility]annCHEM TAFWU3664-09-77 17:15:004.2[facility] HermannCHEM PANEL 2013-07-09 17:15:000.9[facility] HermannCHEM ZZWHN0308-77-39 17:15:0014.7[facility] HermannCHEM EQOUU6442-79-00 17:15:0021[facility] HermannCHEM WGSHG5371-68-95 17:15:0046[facility]annCHEM MYSFE0773-14-17 17:15:001.2[facility] HermannCHEM DIIMA1270-06-70 17:15:0025[facility]annCHEM OZBYI8032-40-92 17:15:44961 [facility]annCHEM MCBCJ3695-22-61 17:15:0026[facility]annCHEM PANEL 2013-07-09 17:15:003.9[facility] HermannCHEM QADRW8190-36-20 17:15:000.5[facility] HermannCHEM JHEJS8748-54-96 17:15:0078[facility] HermannCHEM IUEMY5752-37-70 17:15:003.7[facility] HermannCHEM BGCAL3436-03-44 17:15:85088Vrpwkctu HermannCHEM EYGOV6281-34-21 17:15:0023[facility] HermannCHEM UUBWH7040-23-90 17:15:009.1 [facility]annCHEM GQAHY7306-30-21 17:15:008.1[facility]annCHEM PANEL 2013-07-09 17:15:008[facility] HermannCHEM DQEOA1800-44-26 17:15:73230Hjhtmsnr IcaksvhMUIKPOKKAU0760-36-26 17:15:00 Test Item Value Reference Range Interpretation Comments aPTT (test code = aPTT) 25.5 s 22.9-35.8 [facility] MdpbcfcVSNDGAEIMH6538-81-17 17:15:00 Test Item Value Reference Range Interpretation Comments PROTIME (test code = PROTIME) 12.7 s 12.0-14.7 [facility] UzqawocZEMWBALRGQ0792-19-39 17:15:000.96[facility]annHEMATOLOGY 2013-07-09 17:15:00765Qqyzkwuu ClvwlvrMVIYJCIVJS2525-72-37 17:15:009.1[facility] VzebkkrAHZBEQMMKZ6107-43-66 17:15:0012.4[facility] HhpcephJAFKCMLAIA9539-96-17 17:15:004.50[facility] TkgjuvlAJNWRJFGDB4468-25-54 17:15:0013.3[facility] [place] BWGQJSVFJQ1967-79-81 17:15:0034.5[facility] RhvwipaRZIIABERPM0347-90-02 17:15:00 Test Item Value Reference Range Interpretation Comments MCH (test code = MCH) 32.0 pg 27.0-31.0 [facility] WpdkgdbKNUQPECPZL5137-53-32 17:15:0092.7[facility] HermannHEMATOLOGY 2013-07-09 17:15:0014.4[facility] VdqczssRDSFSLHAVE7915-61-68 17:15:0041.7[facility] ScvvrosRSOPNHTUQF1071-64-29 17:15:000.0[facility] ZtewbayUJPXNURDOV8047-14-61 17:15:000.0[facility] IqurlrkZEWYZADDTM3810-63-20 17:15:000.6[facility] [place] VYTVQGFOKK3496-30-69 17:15:001.3[facility] PlvuqyeQCZDJSIYDW1782-55-05 17:15:00 11.4[facility] TpgcwdnOSSQQKQBJV2649-74-63 17:15:000.1[facility]annHEMATOLOGY 2013-07-09 17:15:004.5[facility] TpxlgbsWRRTIGPWDR1188-39-27 17:15:000.1[facility] AvapdnzHYWIIIIBFA3314-94-54 17:15:0085.7[facility] MkfpkttMMFHZVBKFG4133-33-50 17:15:009.6[facility] HermannCARDIAC RSCILWE9973-02-82 17:15:00<0.02[facility]annCARDIAC DMQYTPC4129-35-43 17:15:0034[facility] HermannCARDIAC ENZYMES 2013-07-09 17:15:00<0.5[facility]annCARDIAC OGXVZQF3928-35-51 17:15:0033 [facility]annCARDIAC CMLXJMA3372-61-41 17:15:00<1.5[facility] HermannCHEM HLRON7257-62-06 17:15:004.2[facility] HermannCHEM GIRQJ1350-79-68 17:15:000.9 [facility]annCHEM OBFRU0643-72-25 17:15:0014.7[facility] HermannCHEM PANEL 2013-07-09 17:15:0021[facility] HermannCHEM BELOQ9793-11-61 17:15:0046[facility] HermannCHEM VJLOE3564-29-36 17:15:001.2[facility] HermannCHEM UWNDJ7600-05-86 17:15:0025[facility] HermannCHEM YONKW0628-81-32 17:15:08961Rtowdtvx HermannCHEM TOYOD6921-84-79 17:15:0026[facility] HermannCHEM LRZYY0053-56-23 17:15:003.9 [facility]annCHEM ZXQDR7389-51-55 17:15:000.5[facility] HermannCHEM PANEL 2013-07-09 17:15:0078[facility] HermannCHEM VBWJQ1534-13-30 17:15:003.7[facility] HermannCHEM RKCRV1071-75-73 17:15:58570Dziuobtk HermannCHEM RBAMY7907-28-83 17:15:0023[facility] HermannCHEM ACUCE2161-98-39 17:15:009.1[facility] HermannCHEM UGHOT0231-85-90 17:15:008.[facility] HermannCHEM YHBMN1366-29-44 17:15:008 [facility] HermannCHEM DQDUA4367-67-95 17:15:98618Pxgycgbk HermannHEMATOLOGY 2013-07-09 17:15:00 Test Item Value Reference Range Interpretation Comments aPTT (test code = aPTT) 25.5 s 22.9-35.8 [facility] DurcvdfKRAQFTLKVH5467-29-58 17:15:00 Test Item Value Reference Range Interpretation Comments PROTIME (test code = PROTIME) 12.7 s 12.0-14.7 [facility] LjbfeseOVXIKWZNNO9826-88-29 17:15:000.96[facility] HermannHEMATOLOGY 2013-07-09 17:15:25968Owmxmapn ZanfnbhTMFXOJYRYS6286-63-11 17:15:009.1[facility] ZlvrbwsSOQAUVNNVD1180-26-32 17:15:0012.4[facility] HpdbokvFYBUOXMUZQ3245-77-03 17:15:004.50[facility] LsygtupBUSUBDFGYV3833-14-72 17:15:0013.3[facility] IITGMODLPD3537-19-42 17:15:0034.5[facility] BniofbzVWYTCXPNYO3829-44-04 17:15:00 Test Item Value Reference Range Interpretation Comments MCH (test code = MCH) 32.0 pg 27.0-31.0 [facility] LbivupaGLSLZPQGVM6255-63-16 17:15:0092.7[facility] HermannHEMATOLOGY 2013-07-09 17:15:0014.4[facility] AyrgtngZUPLSHVGGK5704-33-70 17:15:0041.7[facility] NwtmykoPIQXWWSWKH8102-58-14 17:15:000.0[facility] AqusulhSZFUABZBGI2909-25-39 17:15:000.0[facility] JtnnwknWKULKJHEFZ3006-29-97 17:15:000.6[facility] UPFMOCHDPQ7132-13-47 17:15:001.3[facility] RrdsnylKYKPLZTGQM5904-43-68 17:15:00 11.4[facility] WrjmchwOGPURYOOIH6045-05-85 17:15:000.1[facility] HermannHEMATOLOGY 2013-07-09 17:15:004.5[facility] WjrvkwkILRIDVKHFA2425-23-13 17:15:000.1[facility] CarreuaEUHWACGECF1953-69-58 17:15:0085.7[facility] KfahagzFKZDIXJMSE8455-27-18 17:15:009.6[facility] HermannCARDIAC LMUXMEQ3948-53-90 17:15:00<0.02[facility] HermannCARDIAC UEYEGEA5491-32-21 17:15:0034[facility] HermannCARDIAC ENZYMES 2013-07-09 17:15:00<0.5[facility] HermannCARDIAC GFEYOIZ7218-50-91 17:15:0033 [facility]annCARDIAC HPKYJQK8908-57-64 17:15:00<1.5[facility] HermannCHEM XIDDC8603-79-55 17:15:004.2[facility] HermannCHEM XVYFG6305-31-71 17:15:000.9 [facility]annCHEM HEZEC3364-29-82 17:15:0014.7[facility] HermannCHEM PANEL 2013-07-09 17:15:0021[facility] HermannCHEM BFTSR6943-20-39 17:15:0046[facility] HermannCHEM BADJO2579-19-27 17:15:001.2[facility] HermannCHEM GBKUO7157-87-64 17:15:0025[facility] HermannCHEM COQXW6372-21-30 17:15:75549Tpiuxabm HermannCHEM XPTUC2252-06-66 17:15:0026[facility] HermannCHEM QQXHK2008-30-96 17:15:003.9 [facility] HermannCHEM SNNQW2408-60-17 17:15:000.5[facility] HermannCHEM PANEL 2013-07-09 17:15:0078[facility] HermannCHEM VJQXV9964-67-63 17:15:003.7[facility] HermannCHEM BRGFS3282-36-13 17:15:35674Swvbffxe HermannCHEM YJCEU5871-39-67 17:15:0023[facility] HermannCHEM LRIFT1605-62-01 17:15:009.[facility] HermannCHEM CBYXI9394-19-81 17:15:008.[facility] HermannCHEM IMQWL2905-76-15 17:15:008 [facility] HermannCHEM SDZFB9809-66-55 17:15:73166Amioqkla HermannHEMATOLOGY 2013-07-09 17:15:00 Test Item Value Reference Range Interpretation Comments aPTT (test code = aPTT) 25.5 s 22.9-35.8 [facility] JrcloehQLLVJZJRVE4875-18-49 17:15:00 Test Item Value Reference Range Interpretation Comments PROTIME (test code = PROTIME) 12.7 s 12.0-14.7 [facility] MsewjwpWMCWMPSJXP5134-72-40 17:15:000.96[facility] HermannHEMATOLOGY 2013-07-09 17:15:74362Tshbgkwd BprjuxmUBEPQDBDQN9900-05-34 17:15:009.1[facility] UyxxqmsXSAYMHAOME3155-97-54 17:15:0012.4[facility] RuyipopHNSEJXLXCS7188-54-98 17:15:004.50[facility] JvoekpzNOBTPVEKSR7394-47-91 17:15:0013.3[facility] TWPOSXYKAE3457-34-64 17:15:0034.5[facility] ArxjoeuVNIHLPVOFH3232-69-49 17:15:00 Test Item Value Reference Range Interpretation Comments MCH (test code = MCH) 32.0 pg 27.0-31.0 [facility] JdjszzzAGNJJAJVVO8744-59-54 17:15:0092.7[facility] HermannHEMATOLOGY 2013-07-09 17:15:0014.4[facility] WkjenmzTNYBGIXGWB9225-83-71 17:15:0041.7[facility] UxslytgPFYDYRWGZG5279-23-66 17:15:000.0[facility] MglbldkBREXYCZXKI3292-74-70 17:15:000.0[facility] VfnvgirTPJMVHAKSF4753-78-13 17:15:000.6[facility] XYDMQUVWFU0431-93-60 17:15:001.3[facility] LmwlbllTDOECBSZDL4621-64-52 17:15:00 11.4[facility] JliizgeAWVEXHQQJC3279-44-16 17:15:000.1[facility] HermannHEMATOLOGY 2013-07-09 17:15:004.5[facility] AdqyjgdDTAQBAPNHS7172-79-26 17:15:000.1[facility] FmsjtztTHUXQZNHFJ3648-23-40 17:15:0085.7[facility] FogkflyKJWMPAWXRC3541-42-33 17:15:009.6[facility]
[2021-07-28] MEDS ORDERED: MELATONIN 5 MG TABLET PO PRN (15:54)
[2021-07-28 16:09] VITALS: BMI 27.3
[2021-07-28] MEDS: ONDANSETRON 4 MG (ODT) TAB PO PRN (16:13)
[2021-07-28] MEDS: TRAMADOL HCL 50 MG TAB PO PRN ×2 (16:13→20:50)
[2021-07-28] MEDS ORDERED: ALTEPLASE 2 MG/VIAL IV SCH ×2 (17:00→18:00)
[2021-07-28] MEDS ORDERED: WATER FOR INJ,STERILE 10 ML ONE ×2 (18:20→21:03)
[2021-07-28] MEDS: ACETAMINOPHEN 500 MG TAB PO PRN (18:26)
[2021-07-28] MEDS: SODIUM CHLORIDE 0.9% 10ML INJ IV SCH (18:39)
[2021-07-28] MEDS: ENSURE HIGH PROTEIN 237 ML CAN PO SCH (20:20)
[2021-07-28] MEDS: PRIMIDONE 50 MG TAB PO SCH (20:20)
[2021-07-28] MEDS: APIXABAN 2.5 MG TABLET PO SCH (20:20)
[2021-07-28] MEDS: ZOLPIDEM TARTRATE 5 MG TABLET PO SCH (20:20)
[2021-07-28] MEDS: GABAPENTIN 300 MG CAP PO SCH (20:20)
[2021-07-28 21:43] LABS: Urine Appearance TURBID (Clear); Urine Bilirubin NEGATIVE (Negative); Urine Blood 2+ (Negative); Urine Color DK YELLOW (Yellow); Urine Glucose NEGATIVE (Negative); Urine Protein NEGATIVE (Negative); Urine Urobilinogen 0.2 mg/dL (0.2-1.0)
[2021-07-28 22:03] LABS: Urine Bacteria >50 /HPF (<20)
[2021-07-28 22:04] LABS: Urine Mucus 2+ /HPF (NONE SEEN)
[2021-07-29 05:47] LABS: Absolute Lymphocytes (CBC) 1.6 K/uL (0.7-4.9); Hematocrit 26.9 % (36.0-45.0); Lymphocytes % 15.4 % (15.3-44.8); MPV 7.7 fL (7.6-11.3); RBC Red Blood Cell Count 3.01 M/uL (3.86-4.86)
[2021-07-29] MEDS: LEVOTHYROXINE SOD 0.025 MG TAB PO SCH (06:18)
[2021-07-29 06:27] LABS: Albumin 1.9 g/dL (3.4-5.0); BUN Blood Urea Nitrogen 13 mg/dL (7-18); Bicarbonate 27 mmol/L (21-32); Glucose Level 112 mg/dL (74-106); Magnesium 1.7 mg/dL (1.8-2.4); Prealbumin 7.8 mg/dL (20-40); Sodium Level 140 mmol/L (136-145)
[2021-07-29] MEDS: PANTOPRAZOLE 40MG TABLET PO SCH (07:00)
[2021-07-29] MEDS: SODIUM CHLORIDE 0.9% 10ML INJ IV SCH ×2 (07:01→20:00)
[2021-07-29] MEDS: TRAMADOL HCL 50 MG TAB PO PRN ×2 (07:21→15:14)
[2021-07-29] MEDS: ASPIRIN 81 MG CHEWABLE TABLET PO SCH (08:22)
[2021-07-29] MEDS: APIXABAN 2.5 MG TABLET PO SCH ×2 (08:22→20:36)
[2021-07-29] MEDS: AMLODIPINE 5 MG TAB PO SCH (08:22)
[2021-07-29] MEDS: PRIMIDONE 50 MG TAB PO SCH ×2 (08:22→20:37)
[2021-07-29] MEDS: GABAPENTIN 300 MG CAP PO SCH ×2 (08:23→20:37)
[2021-07-29] MEDS: VALSARTAN 160 MG TAB PO SCH (08:23)
[2021-07-29] MEDS: ENSURE HIGH PROTEIN 237 ML CAN PO SCH ×2 (09:18→20:37)
--- NOTE | 2021-07-29 09:57 | P.RH.PN ---
Estimated Length of Stay: 11 Expected Discharge Date: 08/08/21 Discharge Disposition Plan: Home Family Support: Yes Snf Goal: Mobility, Transfers, Self Care Vital Signs: Last Vital Signs Temp 98 F 07/29/21 07:25 Pulse 99 H 07/29/21 08:23 Resp 18 07/29/21 08:21 BP 135/61 07/29/21 08:23 Pulse Ox 95 07/29/21 08:21 Laboratory: Laboratory Last Values WBC 10.60 K/uL (4.3-10.9) D 07/29/21 04:54 RBC 3.01 M/uL (3.86-4.86) L 07/29/21 04:54 Hgb 9.0 g/dL (12.0-15.0) L 07/29/21 04:54 Hct 26.9 % (36.0-45.0) L 07/29/21 04:54 MCV 89.3 fL (80-100) 07/29/21 04:54 MCH 30.0 pg (27.0-35.0) 07/29/21 04:54 MCHC 33.6 g/dL (32.0-36.0) 07/29/21 04:54 RDW 14.2 % (12.1-15.2) 07/29/21 04:54 Plt Count 346 K/uL (152-406) 07/29/21 04:54 MPV 7.7 fL (7.6-11.3) 07/29/21 04:54 Neutrophils % 72.9 % (41.7-73.7) 07/29/21 04:54 Lymphocytes % 15.4 % (15.3-44.8) 07/29/21 04:54 Monocytes % 10.5 % (3.3-12.3) 07/29/21 04:54 Eosinophils % 1.0 % (0-4.4) 07/29/21 04:54 Basophils % 0.2 % (0-1.3) 07/29/21 04:54 Absolute Neutrophils 7.7 K/uL (1.8-8.0) 07/29/21 04:54 Absolute Lymphocytes 1.6 K/uL (0.7-4.9) 07/29/21 04:54 Absolute Monocytes 1.1 K/uL (0.1-1.3) 07/29/21 04:54 Absolute Eosinophils 0.1 K/uL (0-0.5) 07/29/21 04:54 Absolute Basophils 0.0 K/uL (0-0.5) 07/29/21 04:54 Sodium 140 mmol/L (136-145) 07/29/21 04:54 Potassium 4.0 mmol/L (3.5-5.1) 07/29/21 04:54 Chloride 108 mmol/L (98-107) H 07/29/21 04:54 Carbon Dioxide 27 mmol/L (21-32) 07/29/21 04:54 BUN 13 mg/dL (7-18) 07/29/21 04:54 Creatinine 0.57 mg/dL (0.55-1.3) 07/29/21 04:54 Estimated GFR > 90 mL/min (=/>90) 07/29/21 04:54 Glucose 112 mg/dL (74-106) H 07/29/21 04:54 Calcium 7.8 mg/dL (8.5-10.1) L 07/29/21 04:54 Magnesium 1.7 mg/dL (1.8-2.4) L 07/29/21 04:54 Albumin 1.9 g/dL (3.4-5.0) L 07/29/21 04:54 Prealbumin 7.8 mg/dL (20-40) L 07/29/21 04:54 Urine Color Dk yellow (Yellow) 07/28/21 20:45 Urine Appearance Turbid (Clear) 07/28/21 20:45 Urine pH 6.0 (5.0-7.0) 07/28/21 20:45 Ur Specific [place] 1.020 (1.005-1.030) 07/28/21 20:45 Glucose (UA)(Auto) Negative (Negative) 07/28/21 20:45 Urine Ketones 1+ (Negative) H 07/28/21 20:45 Urine Blood 2+ (Negative) H 07/28/21 20:45 Urine Nitrite Negative (Negative) 07/28/21 20:45 Urine Bilirubin Negative (Negative) 07/28/21 20:45 Urine Urobilinogen 0.2 mg/dL (0.2-1.0) 03/17/22 20:45 Ur Leukocyte Esterase 2+ (Negative) H 07/28/21 20:45 Urine RBC 5-10 /HPF (NONE SEEN) H 07/28/21 20:45 Urine WBC 5-10 /HPF (<5) H 07/28/21 20:45 Ur Squamous Epith Cells 20-50 /HPF (NONE SEEN) H 07/28/21 20:45 Urine Bacteria >50 /HPF (<20) H 07/28/21 20:45 Urine Mucus 2+ /HPF (NONE SEEN) 07/28/21 20:45 Urine Culture Reflexed Not needed 07/28/21 20:45 Urine Total Protein Negative (Negative) 07/28/21 20:45 Weight: 145 lb Closed Surgical Incision Present: Yes Physician Update: Ambulated 175' with RW with CGA, transfers min assistance to contact guard assistance. Resting heart rate 100 and 120 with exertion. Will do EKG. UA suggests a possible UTI. Will follow cultures. WBC 10.6, Hgb 9.0. She has left shoulder pain and will have a patch placed. Summary: Patient's care plan and detention goals have been reviewed and revised as necessary. Please see the Rehabilitation Signature page for all necessary signatures.
[2021-07-29] MEDS ORDERED: ALTEPLASE 2 MG/VIAL IV ONE (10:00)
[2021-07-29] MEDS ORDERED: MELOXICAM 7.5 MG TAB PO PRN (10:41)
--- NOTE | 2021-07-29 13:31 | R.HP ---
HISTORY AND PHYSICAL FACILITY: [facility] ENCOUNTER DATE AND TIME: 07/29/2021 13:24 (CDT) MR#: [id number] NAME JESUS JACOBS ADDRESS: [address] [place] [address] CITY: [place]IP [id number] PHONE: DATE OF : 1945 AGE: 75 SSN# [id number] GENDER: Female MARITAL STATUS PRE-HOSPITAL LIVING SETTING 01 - Home (private home/apt. board/care, assisted living, fdc, transitional living) PRE-HOSPITAL LIVING WITH Family/Relatives ENCOUNTER PHYSICIAN: Dr. Brett Lewis M.D. 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 HISTORY OF PRESENT ILLNESS (HPI): Pt. is a 75 yo Right-handed female. On 07/20/2021 she was admitted to [facility] with diagnosis SMALL BOWL ILEOSTOMY. Her impairment category is Medically Complex Conditions 17 - Medical/Surgical Complications (17.8). Pre-morbidly, Pt. was independent/mod-I in Locomotion, Safety Awareness, Social Cognition, Transfers Control, and Balance; and she had good Transfers Control, Sphincter Control, Self-Care, Communication , and Endurance. Currently, she has deficits of Locomotion, Safety Awareness, Social Cognition, Transfers Control, Bal ance, Sphincter Control, Self-Care, Communication, and Endurance. Pt. is now referred to [facility] for acute in-patient rehabilitation in order to maximize patient's functional independence in activities of daily living, strength, ROM, and mobi lity. Patient has realistic goal of being discharged at assistance level 7-Ind to reside at Home with Fami ly/Relatives. MEDICATION ALLERGIES: CODEINE IODINATED HYDROCODINE ENVIRONMENTAL ALLERGIES: - Substance Allergies None Known - Other Allergies None Known PAST MEDICAL HISTORY: HYPERTENSION PACEMAKER 2010 CARDIAC DYSRHYTHMIA CATARACT HYPOTHYROIDISM GERD SHOULDER TENDINITIS (GETS SHOTS) COLON CANCER PAST SURGICAL HISTORY: HERNIA REPAIR ESOPHAGEAL VARICES COLOSTOMY PLACEMENT FISTULECTOMY SOCIAL HISTORY: - Home Living Family/Relatives REVIEW OF SYSTEMS: - Gen No Chills No Fatigue No Fever - Eyes No Double Vision No itchiness - ENMT No Difficulty Swallowing - CVS No Chest Discomfort No Chest Pain Fatigue No Weight Gain - Resp No Cough No Shortness of Breath - GI Continent No Abdominal Pain No Constipation No Diarrhea - Continent No Kidney Pain No Painful Urination No Urinary Urgency - MSK No Joint Pain Muscle Cramps Stiffness - Skin No Itching No Rash No Suspicious Lesions - Neuro Coordination Difficulty Difficulty with Concentration No Memory Loss No Seizures Weakness - Psych No Anxiety Depression No HIV Exposure No Persistent Infections No Seasonal Allergies - Endo No Cold/Heat Intolerance No Excessive Hunger No Excessive Thirst No Excessive Urination PHYSICAL EXAM - Gen Alert and awake Lying in bed No apparent distress Oriented to: person, time, and place - Skin No breakdown Normacephalic - Eyes No abnormalities - ENMT No abnormalities - Neck No abnormalities - CVS RRR - Chest No abnormalities - Resp No wheezing - Abd Soft - GI Non distended Deferred - No abnormalities - Ext Mild bilateral lower extremity edema. - MSK 4/5 weakness in both lower extremities. - Neuro No focal deficits - Psych Mild depression and anxiety. VITAL SIGNS Temperature: 97.8 F SBP/DBP: 138/63 Pulse: 97 Resp: 18 NURSING: - Shower allowing shower ACTIVITIES OOB only with supervision QI SCORES: - Self-Care A. Eating 03-Partial/moderate assistance B. Oral hygiene 03-Partial/moderate assistance C. Toileting hygiene 03-Partial/moderate assistance E. Shower/bathe self 03-Partial/moderate assistance F. Upper body dressing 03-Partial/moderate assistance G. Lower body dressing 03-Partial/moderate assistance H. Putting on/taking off footwear 88-Not attempted due to medical condition or safety concerns - Mobility A. Roll left and right 03-Partial/moderate assistance B. Sit to lying 03-Partial/moderate assistance C. Lying to sitting on side of bed 03-Partial/moderate assistance D. Sit to stand 03-Partial/moderate assistance E. Chair/thk-mt-cpths transfer 03-Partial/moderate assistance F. Toilet transfer 03-Partial/moderate assistance G. Car transfer 88-Not attempted due to medical condition or safety concerns I. Walk 10 feet 03-Partial/moderate assistance J. Walk 50 feet with two turns 03-Partial/moderate assistance K. Walk 150 feet 03-Partial/moderate assistance L. Walking 10 feet on uneven surfaces 88-Not attempted due to medical condition or safety concerns M. 1 step (curb) 88-Not attempted due to medical condition or safety concerns N. 4 steps 88-Not attempted due to medical condition or safety concerns O. 12 steps 88-Not attempted due to medical condition or safety concerns P. Picking up object 03-Partial/moderate assistance R. Wheel 50 feet with two turns 88-Not attempted due to medical condition or safety concerns S. Wheel 150 feet 88-Not attempted due to medical condition or safety concerns - Bladder and Bowel Bladder continence Bowel continence - Endurance Fair - Balance Fair - Safety Awareness Fair CURRENT FUNC. DEFICITS: Self-Care, Mobility, Endurance, Balance, and Safety Awareness MEDICATIONS: - Other See attached MAR (Medication Administration Record) ASSESSMENT: Pt. is a 75 yo Right-handed female.On 07/20/2021 she was admitted to [facility] with ze gnosis SMALL BOWL ILEOSTOMY.Her impairment category is Medically Complex Conditions 17 - Medical/Karishma gical Complications (17.8).Pre-morbidly, Pt. was independent/mod-I in Locomotion, Safety Awareness, S ocial Cognition, Transfers Control, and Balance; and she had good Transfers Control, Sphincter Contro l, Self-Care, Communication, and Endurance.Currently, she has deficits of Locomotion, Safety Awarenes s, Social Cognition, Transfers Control, Balance, Sphincter Control, Self-Care, Communication, and End urance.Pt. is now referred to [facility] for acute in-patient rehabilitation i n order to maximize patient's functional independence in activities of daily living, strength, ROM, a nd mobility.- Rehab Goal Patient has realistic goal of being discharged at assistance level 7-Ind to reside at Home with Fami ly/Relatives. - Physical Therapy Gait dysfunction - to improve, our physical therapists will perform initial evaluation of pt's status upon admission and devise an individualized program for Gait Training, and Wheel Chair mobility Inability to transfer - to improve, our physical therapists will perform initial evaluation of pt's s tatus upon admission and devise an individualized program for Bed mobility Need for home safety evaluation - to improve, our physical therapists will perform initial evaluation of pt's status upon admission and devise an individualized program for Home Evaluation Need in caregiver upon discharge - to improve, our physical therapists will perform initial evaluatio n of pt's status upon admission and devise an individualized program for Caregiver Training New precaution - to improve, our physical therapists will perform initial evaluation of pt's status u jt admission and devise an individualized program for Patient precaution education Edema - to improve, our physical therapists will perform initial evaluation of pt's status upon admi ssion and devise an individualized program for Elevation Training, and Lymphedema Therapy Poor balance - to improve, our physical therapists will perform initial evaluation of pt's status upo n admission and devise an individualized program for Balance Training Poor endurance - to improve, our physical therapists will perform initial evaluation of pt's status u jt admission and devise an individualized program for Endurance Training Weakness - to improve, our physical therapists will perform initial evaluation of pt's status upon ad mission and devise an individualized program for Aquatic Therapy, Neuromuscular Reeducation, and Stre ngthening Achieving independence - to improve, our physical therapists will perform initial evaluation of pt's status upon admission and devise an individualized program for Community Reintegration Activities - Occupational Therapy ADL deficits - to improve, our occupation therapists will perform initial evaluation of pt's status u jt admission and devise an individualized program for Bathing, Bed mobility, Community Reintegration , Cooking, Dressing, Eating, Fine Motor Skills, Grooming, Homemaking, Kitchen Mobility, Laundry, Isabel ent Education, Safety Awareness, Splinting - Positioning, Transfers(Toilet, Tub, Shower), and Wheel C hair Management Cognitive deficits - to improve, our occupation therapists will perform initial evaluation of pt's st atus upon admission and devise an individualized program for Cognition - orientation Need for pharmacy care coordinator - to improve, our occupation therapists will perform initial evaluation of pt's s tatus upon admission and devise an individualized program for Caregiver Training Weakness - to improve, our occupation therapists will perform initial evaluation of pt's status upon admission and devise an individualized program for Aquatic Therapy, Balance, Endurance, UE ROM, and U E strengthening MEDICAL PLAN: - Diet Type Start Regular - Diet - Liquid Texture Start Regular - Tube Feed Start N/A - Other See attached MAR (Medication Administration Record) - Diet - Solid Texture Regular - Shower shower DISCHARGE PLAN: - Estimated Length of Stay (days) 13. - Consensus on plan Discharge plan has been discussed with primary caregiver. Patient/Family is in agreement with the ben n. Primary caregiver is in agreement with the plan. - Patient/Family Goals Return home independently. - Planned Living Setting Upon Discharge Home, to live with Family/Relatives. Transitional Living. SIGNATURE PANEL: (CDT)
--- NOTE | 2021-07-29 13:32 | PAPE ---
POST ADMISSION PHYSICIAN EVALUATION PATIENT: [facility] MR# [id number] REFERRING DOCTOR SHARLENE REYES MD EVALUATION DATE AND TIME 07/29/2021 13:30 (CDT) NAME JESUS JACOBS DATE OF 1945 AGE 75 PHONE N# [id number] GENDER female EVALUATING PHYSICIAN Dr. Brett Lewis M.D. ADMISSION DIAGNOSIS: SMALL BOWL ILEOSTOMY ONSET DATE 07/20/2021 POST-ADMISSION FUNCTIONAL/MEDICAL STATUS: - Bladder Same accident frequency: 7-Ind - No accidents in the past 7 days - Bowel Same accident frequency: 7-Ind - No accidents in the past 7 days - Walking Same score based on distance walked: 0(N/A) Same score based on distance walked: 3(>=150ft) - Wheelchair Same score based on distance traveled: 0(N/A) STATUS CHANGE EVALUATION: No change in Functional or Medical Status is identified compared with Pre-Admission screening. PATIENT NEEDS CLOSE MEDICAL SUPERVISION BY A REHABILITATION PHYSICIAN FOR: Coordination of Treatment Team Wound Care Medical and Co-Morbidity Management Bowel and Bladder Management DVT Management Pain Management Post-Op Complications PATIENT REQUIRES 24X7 REHAB NURSING FOR MEDICAL AND FUNCTIONAL MGT. OF THE FOLLOWING DEFICITS: Disease Management Medication Management Patient requires 24x7 Rehabilitation Nursing for: Pain Issues, Identifying and preventing risk factor s, Monitoring and reporting current medical conditions, Assisting with ambulation and transfer, Scott ting with all ADL-s, Teaching patients about disease process and medications, Family teaching, Provid ing safe environment, Bowel and Bladder Issues, Skin Integrity, and Medication Management Patient/Family Education Providing Safe Environment Skin Integrity Pain Management Bowel and Bladder Management PATIENT REQUIRES INTENSIVE, COORDINATED INTERDISCIPLINARY APPROACH TO REHAB: Arranging Home Equipment/Services Discharge Planning Family Intervention/Training Patient needs Dietary and Nutrition Services for: Adequate Nutrition, Nutritional Supplements, and Nu tritional Education Patient needs Typing Secretary and/or Case Management for: Discharge Planning, Arranging Home Equipmen t or Services, and Family Interventions Typing Secretary/Case Management LIST OF IDENTIFIED AND POTENTIAL PROBLEMS: Alteration in leisure activities Bladder, Incontinence Bowel, Incontinence Infection, Actual or Potential Mobility Impaired Pain, Alteration in Comfort Self Care Deficit Skin Integrity, Actual or Potential Urinary Tract Infection (UTI), Actual or Potential RISK FOR COMPLICATIONS - SKIN BREAKDOWN Nursing will assess skin daily using assessment tool and will place on Skin Breakdown Precautions as Indicated per protocol. - WEAKNESS Strength training will be performed regularly by therapy staff. - CARDIC monitoring heart rate/signs and symptoms for cardiac distress. - DVT Medications will be administered as per MD. PTT and INR will be monitored to effectively mitigate ris k for development of DVT or PE while here. Mobility training and regular exercise. - ABDOMINAL PAIN Medications will be administered as per MD. - Falls Patient will be evaluated for Fall Precautions and will be placed on Fall Precautions as indicated pe r protocol. Educated pt on fall prevention strategies to reduce/eliminate fall risk. - Pneumonia pt will be instructed on use of and be encouraged to use incentive spirometry. regular OOB activity a nd exercise to reduce risk. Interval Chest X-Rays will be obtained as necessary. - Infection Monitoring of surgical site and pt for signs and symptoms of infection. antibiotic therapy as indicat ed by physician. - CVA pt's blood pressures have been inconsistent and require monitoring and medication management as inidi cated by physician. pt has heart dysrhythmia and requires medical monitoring and medication managemen t to reduce risk for CVA. INTERVENTIONS - HYPERTENSION Blood pressure will be regularly assessed and medications administered as per physician recommendatio ns. - Surgical Site Management regular assessment of surgical site and appropriate dressing changes as warranted by physician. - GERD Monitor symptoms and provide medication as indicated by physician. - Colostomy Training and education regarding care and management of colostomy. PATIENT COULD BE AT RISK FOR COMPLICATIONS FROM ADVERSE MEDICAL CONDITIONS DUE TO HIS/HER COMORBIDITI ES AND THE RIGORS OF THE INTENSIVE REHABILLITATION PROGRAM. METHODS OR INTERVENTIONS TO AVOID COMPLIC ATIONS INCLUDE: - Deep Vein Thrombosis (DVT) Prophylaxis therapy for prevention . Sequential Compression Device (SCD). TE D Hose. - Bleeding Assess lab values and manage abnormalities. Nursing to teach precautions for anti-coagulation therapy . Wound to be assessed every shift. - Infection Clinical staff to assess and manage the signs and symptoms of infection including fever, redness, war mth, etc. - Urinary Tract Infection - Falls Patient will be evaluated for Fall Precautions and will be placed on Fall Precautions as indicated pe r protocol. - Skin Breakdown Nursing will assess skin daily using assessment tool and will place on Skin Breakdown Precautions as indicated per protocol. - Pain Clinical staff may employ non-medication methods such as massage, distraction, decrease stimulus, etc . as needed. Clinical staff will assess patient's pain level every shift per protocol to assess and e nsure pain management effectiveness. Medications will be given and the pain level re-assessed. PRELIMINARY PLAN OF CARE: - Physical Therapy Patient needs Physical Therapy for a daily minimum of 1.5 hours at least 5 out of 7 days, to improve: Mobility, Strengthening, Transfers, Stretching, ROM, Endurance, Ability to manage stairs, Gait, and Balance. - Speech Therapy Patient needs Speech Therapy for a daily minimum of 0.5 hours at least 5 out of 7 days, to improve: S wallowing, Cognition, Language Skills, and Compensatory Strategies. - Rehabilitation Nursing Patient requires 24x7 Rehabilitation Nursing for: Pain Issues, Identifying and preventing risk factor s, Monitoring and reporting current medical conditions, Assisting with ambulation and transfer, Scott ting with all ADL-s, Teaching patients about disease process and medications, Family teaching, Provid ing safe environment, Bowel and Bladder Issues, Skin Integrity, and Medication Management. Patient needs Typing Secretary and/or Case Management for: Discharge Planning, Arranging Home Equipmen t or Services, and Family Interventions. - Dietary and Nutrition Services Patient needs Dietary and Nutrition Services for: Adequate Nutrition, Nutritional Supplements, and Nu tritional Education. - Occupational Therapy Patient needs Occupational Therapy for a daily minimum of 1.5 hours at least 5 out of 7 days, to impr ove Activities of Daily Living, including: Eating, Grooming, Bathing, Dressing, Toileting, Toilet Tra nsfers, Community Reintegration, Higher functional activities, Adaptive Equipment, Splinting, Househo ld Tasks, and Other activities as determined. QI SCORES: - Self-Care A. Eating 03-Partial/moderate assistance B. Oral hygiene 03-Partial/moderate assistance C. Toileting hygiene 03-Partial/moderate assistance E. Shower/bathe self 03-Partial/moderate assistance F. Upper body dressing 03-Partial/moderate assistance G. Lower body dressing 03-Partial/moderate assistance H. Putting on/taking off footwear 88-Not attempted due to medical condition or safety concerns - Mobility A. Roll left and right 03-Partial/moderate assistance B. Sit to lying 03-Partial/moderate assistance C. Lying to sitting on side of bed 03-Partial/moderate assistance D. Sit to stand 03-Partial/moderate assistance E. Chair/[id number]-[id number] transfer 03-Partial/moderate assistance F. Toilet transfer 03-Partial/moderate assistance G. Car transfer 88-Not attempted due to medical condition or safety concerns I. Walk 10 feet 03-Partial/moderate assistance J. Walk 50 feet with two turns 03-Partial/moderate assistance K. Walk 150 feet 03-Partial/moderate assistance L. Walking 10 feet on uneven surfaces 88-Not attempted due to medical condition or safety concerns M. 1 step (curb) 88-Not attempted due to medical condition or safety concerns N. 4 steps 88-Not attempted due to medical condition or safety concerns O. 12 steps 88-Not attempted due to medical condition or safety concerns P. Picking up object 03-Partial/moderate assistance R. Wheel 50 feet with two turns 88-Not attempted due to medical condition or safety concerns S. Wheel 150 feet 88-Not attempted due to medical condition or safety concerns - Bladder and Bowel Bladder continence Bowel continence - Endurance Fair - Balance Fair - Safety Awareness Fair POTENTIAL FUNCTIONAL GOALS FOR PATIENT TO ACHIEVE BY DISCHARGE: - Safety Precaution Patient will remain free from falls or injury at time of discharge. - Bed Mobility Patient will perform bed mobility at 4-Juju level of assistance. - Transfers Patient will complete transfers from bed to chair at 4-Juju level of assistance. - Mobility Patient will ambulate 150 ft with 4-Juju level of assistance with RW. PATIENT REHAB POTENTIAL Gudelia JACOBS is able and expected to receive 3 hours of individualized therapy daily on at least 5 of e very 7 days Gudelia JACOBS's prognosis for significant practical improvement within a reasonable period of time appea rs Good Expected level of measurable improvement will be of a practical value to Gudelia JACOBS's functional [facility] [place] or adaptations to impairments Has a viable Discharge Plan Medically appropriate; condition is sufficiently stable to participate in intensive rehab program DISCHARGE PLAN: - Estimated Length of Stay (days) 13. - Consensus on plan Discharge plan has been discussed with primary caregiver. Patient/Family is in agreement with the ben n. Primary caregiver is in agreement with the plan. - Patient/Family Goals Return home independently. - Planned Living Setting Upon Discharge Home, to live with Family/Relatives. Transitional Living. CONCLUSION ON REHABILITATION NECESSITY: I have evaluated patient's pre-admission functional status and, comparing it to the patient's post-ad mission functional status now, I conclude that the pre-admission assessment was accurate. Patient's c ondition on admission supports the medical necessity of admission to IRF. It is safe to proceed with patient's therapy program. SIGNATURE PANEL: (CDT)
--- NOTE | 2021-07-29 20:25 | PN ---
Date of Progress Note: 07/29/2021 Subjective: The patient is doing well. Patient moved to rehab. Tolerating diet. Passing flatus on the VAC. Afebrile. Objective: Vital Signs: Reviewed. Chest: Clear. Abdomen: Soft and depressible. Midline has a wound VAC on it. Ostomy is viable, pink. Bowel sound s positive. Extremities: Good capillary refill. ISELA drain minimal, clear. It was removed today by me intact. Plan: Continue out of bed. Incentive spirometry. Wound VAC, ambulation. HM/MODL Voice ID: [id number] Report ID: [id number]
[2021-07-29] MEDS: CRANBERRY FRUIT EXTRACT 400 MG CAP PO SCH (20:36)
[2021-07-29] MEDS: ZOLPIDEM TARTRATE 5 MG TABLET PO SCH (20:37)
[2021-07-30] MEDS: LEVOTHYROXINE SOD 0.025 MG TAB PO SCH (05:03)
[2021-07-30] MEDS: LIDOCAINE 4% PATCH TOP SCH (07:16)
[2021-07-30] MEDS: PANTOPRAZOLE 40MG TABLET PO SCH (07:16)
[2021-07-30] MEDS: SODIUM CHLORIDE 0.9% 10ML INJ IV SCH ×2 (07:25→20:34)
[2021-07-30] MEDS ORDERED: LIDOCAINE 4% PATCH TOP SCH (08:00)
[2021-07-30] MEDS: TRAMADOL HCL 50 MG TAB PO PRN ×3 (08:14→20:40)
[2021-07-30] MEDS: PRIMIDONE 50 MG TAB PO SCH ×2 (08:15→20:34)
[2021-07-30] MEDS: VALSARTAN 160 MG TAB PO SCH (08:15)
[2021-07-30] MEDS: FE SULF/FA/VIT B COMP & C TAB PO SCH (08:15)
[2021-07-30] MEDS: APIXABAN 2.5 MG TABLET PO SCH ×2 (08:15→20:34)
[2021-07-30] MEDS: CRANBERRY FRUIT EXTRACT 400 MG CAP PO SCH ×2 (08:15→20:34)
[2021-07-30] MEDS: ASPIRIN 81 MG CHEWABLE TABLET PO SCH (08:16)
[2021-07-30] MEDS: GABAPENTIN 300 MG CAP PO SCH ×2 (08:16→20:34)
[2021-07-30] MEDS: AMLODIPINE 5 MG TAB PO SCH (08:16)
[2021-07-30] MEDS: ENSURE HIGH PROTEIN 237 ML CAN PO SCH ×2 (08:23→20:35)
[2021-07-30] MEDS ORDERED: LIDOCAINE 4% PATCH TOP ONE (15:08)
[2021-07-30] MEDS ORDERED: BETAMET ACET/BETAMET NA PH 6 MG/ML VIAL IM ONE ×2 (18:02→18:13)
[2021-07-30] MEDS ORDERED: LIDOCAINE 1% 20 ML MDV IV ONE (18:05)
[2021-07-30] MEDS ORDERED: LIDOCAINE 1% MPF 30 ML VIAL ONE (18:14)
[2021-07-30] MEDS: ZOLPIDEM TARTRATE 5 MG TABLET PO SCH (20:34)
[2021-07-31] MEDS: LEVOTHYROXINE SOD 0.025 MG TAB PO SCH (06:20)
[2021-07-31] MEDS: PANTOPRAZOLE 40MG TABLET PO SCH (07:35)
[2021-07-31] MEDS: LIDOCAINE 4% PATCH TOP SCH (07:35)
[2021-07-31] MEDS: TRAMADOL HCL 50 MG TAB PO PRN ×3 (07:36→19:35)
[2021-07-31] MEDS: ENSURE HIGH PROTEIN 237 ML CAN PO SCH ×2 (08:00→19:36)
[2021-07-31] MEDS: SODIUM CHLORIDE 0.9% 10ML INJ IV SCH ×2 (08:00→19:36)
[2021-07-31] MEDS: VALSARTAN 160 MG TAB PO SCH (08:25)
[2021-07-31] MEDS: PRIMIDONE 50 MG TAB PO SCH ×2 (08:26→19:36)
[2021-07-31] MEDS: APIXABAN 2.5 MG TABLET PO SCH ×2 (08:26→19:36)
[2021-07-31] MEDS: ASPIRIN 81 MG CHEWABLE TABLET PO SCH (08:26)
[2021-07-31] MEDS: GABAPENTIN 300 MG CAP PO SCH ×2 (08:26→19:35)
[2021-07-31] MEDS: FE SULF/FA/VIT B COMP & C TAB PO SCH (08:26)
[2021-07-31] MEDS: CRANBERRY FRUIT EXTRACT 400 MG CAP PO SCH ×2 (08:26→19:36)
[2021-07-31] MEDS: AMLODIPINE 5 MG TAB PO SCH (08:27)
[2021-07-31] MEDS: ZOLPIDEM TARTRATE 5 MG TABLET PO SCH (19:35)
[2021-07-31] MEDS: ONDANSETRON 4 MG (ODT) TAB PO PRN (20:11)
[2021-08-01] MEDS: LEVOTHYROXINE SOD 0.025 MG TAB PO SCH (05:13)
[2021-08-01] MEDS: SODIUM CHLORIDE 0.9% 10ML INJ IV SCH ×2 (07:00→20:39)
[2021-08-01] MEDS: PANTOPRAZOLE 40MG TABLET PO SCH (07:00)
[2021-08-01] MEDS: TRAMADOL HCL 50 MG TAB PO PRN ×4 (08:00→20:39)
[2021-08-01] MEDS: CRANBERRY FRUIT EXTRACT 400 MG CAP PO SCH ×2 (08:01→20:39)
[2021-08-01] MEDS: ASPIRIN 81 MG CHEWABLE TABLET PO SCH (08:01)
[2021-08-01] MEDS: AMLODIPINE 5 MG TAB PO SCH (08:02)
[2021-08-01] MEDS: GABAPENTIN 300 MG CAP PO SCH ×2 (08:02→20:39)
[2021-08-01] MEDS: VALSARTAN 160 MG TAB PO SCH (08:02)
[2021-08-01] MEDS: FE SULF/FA/VIT B COMP & C TAB PO SCH (08:02)
[2021-08-01] MEDS: PRIMIDONE 50 MG TAB PO SCH ×2 (08:02→20:39)
[2021-08-01] MEDS: APIXABAN 2.5 MG TABLET PO SCH ×2 (08:02→20:39)
[2021-08-01] MEDS: ENSURE HIGH PROTEIN 237 ML CAN PO SCH ×2 (08:03→20:53)
[2021-08-01] MEDS: ONDANSETRON 4 MG (ODT) TAB PO PRN (09:35)
[2021-08-01] MEDS: LIDOCAINE 4% PATCH TOP SCH (10:34)
--- NOTE | 2021-08-01 12:04 | PN ---
Date of Progress Note: 08/01/2021 Subjective: The patient is doing well. No complaint. Tolerating diet. Objective: Vital Signs: Blood pressure is 131/56. Respirations 16. Chest: Clear. Abdomen: Intact surgical site. Wound VAC in place. Ostomy viable, functional. Gas in the bag. Extremities: Good capillary refill. Laboratory Data: Last blood work on her was WBC count of 10.6. Plan: Continue rehabilitation and GI soft diet. Incentive spirometry and wound care. HM/MODL Voice ID: [id number] Report ID: [id number]
[2021-08-01] MEDS ORDERED: LIDOCAINE VISCOUS 2% SOLN 15 ML UDC PO ONE (17:00)
[2021-08-01] MEDS ORDERED: LIDOCAINE JELLY 2%- 5 ML TUBE TOP ONE (17:00)
[2021-08-01] MEDS: ACETAMINOPHEN 500 MG TAB PO PRN (17:04)
[2021-08-01] MEDS: ZOLPIDEM TARTRATE 5 MG TABLET PO SCH (20:39)
[2021-08-02] MEDS: LEVOTHYROXINE SOD 0.025 MG TAB PO SCH (06:41)
[2021-08-02] MEDS: PANTOPRAZOLE 40MG TABLET PO SCH (07:06)
[2021-08-02] MEDS: SODIUM CHLORIDE 0.9% 10ML INJ IV SCH ×2 (07:07→20:24)
[2021-08-02] MEDS: LIDOCAINE 4% PATCH TOP SCH (07:07)
[2021-08-02] MEDS: TRAMADOL HCL 50 MG TAB PO PRN ×4 (08:26→20:36)
[2021-08-02] MEDS: CRANBERRY FRUIT EXTRACT 400 MG CAP PO SCH ×2 (08:27→20:24)
[2021-08-02] MEDS: ASPIRIN 81 MG CHEWABLE TABLET PO SCH (08:27)
[2021-08-02] MEDS: FE SULF/FA/VIT B COMP & C TAB PO SCH (08:27)
[2021-08-02] MEDS: VALSARTAN 160 MG TAB PO SCH (08:27)
[2021-08-02] MEDS: ENSURE HIGH PROTEIN 237 ML CAN PO SCH ×2 (08:28→20:24)
[2021-08-02] MEDS: APIXABAN 2.5 MG TABLET PO SCH ×2 (08:28→20:24)
[2021-08-02] MEDS: GABAPENTIN 300 MG CAP PO SCH ×2 (08:28→20:24)
[2021-08-02] MEDS: PRIMIDONE 50 MG TAB PO SCH ×2 (08:28→20:24)
[2021-08-02] MEDS: AMLODIPINE 5 MG TAB PO SCH (08:29)
--- NOTE | 2021-08-02 17:34 | R.PN ---
PROGRESS NOTES ENCOUNTER DATE AND TIME: 08/02/2021 17:18 (CDT) NAME JESUS JACOBS DATE OF : 1945 DATE OF ADMISSION: 07/28/2021 15:12 (CDT) SMALL BOWL ILEOSTOMYCHIEF COMPLAINT: Small Bowel ileostomy, debility, severe right shoulder arthritis SUBJECTIVE: Pt denied any depression. Pt denied any Shortness of Breath. She denies significant pain at her surgical site. Labs were reviewed and are stable. She has no new c omplaints. She is doing well with physical and occupational therapy. WBC 10.6, Hgb 9.0, prealbumin 7.8, Mg 1.7, Ca 7.8, UA 2+ esterase, bacteria >50, WBC 5-10. Cultures > 100,000 mixed ina. Started Ca and Mg. VITAL SIGNS Temperature: 97.8 F SBP/DBP: 138/65 Pulse: 73 Resp: 16 MEDICATION ALLERGIES: CODEINE IODINATED HYDROCODINE ENVIRONMENTAL ALLERGIES: - Substance Allergies None Known - Other Allergies None Known NURSING: - Shower allowing shower ACTIVITIES OOB only with supervision THERAPIES: - Dietary and Nutrition Adequate Nutrition. Nutritional Education. Nutritional Supplements. Evaluate and Treat. - Occupational Therapy Cognitive Retraining. Patient needs Occupational Therapy for a daily minimum of 1.5 hours at least 5 out of 7 days, to improve Activities of Daily Living, including: Eating, Grooming, Bathing, Dressing, Toileting, Toilet Transfers, Community Reintegration, Higher functional activities, Adaptive Equipme nt, Splinting, Household Tasks, and Other activities as determined. Transfer Training. Safety Awarene ss. ADL Training. Evaluate and Treat. Visual Perceptual Training. Patient/Family Education. Household Tasks. - Speech Therapy Cognitive Training. Expressive Language Skills. Memory Strategies. Patient needs Speech Therapy for a daily minimum of 1.5 hours at least 5 out of 7 days, to improve: Swallowing, Cognition, Language Ski lls, and Compensatory Strategies. Receptive Language Skills. Speech Intelligibility Training. Evaluat e and Treat. - Physical Therapy Patient needs Physical Therapy for a daily minimum of 1.5 hours at least 5 out of 7 days, to improve: Mobility, Strengthening, Transfers, Stretching, ROM, Endurance, Ability to manage stairs, Gait, and Balance. Mobility Training. Gait Training. Safety Awareness. Balance Training. Transfer Training. Adelia dixonate and Treat. Patient/Family Education. LE Strengthening. PHYSICAL EXAM - Gen Alert and awake Lying in bed No apparent distress Oriented to: person, time, and place - Skin No breakdown Normacephalic - Eyes No abnormalities - ENMT No abnormalities - Neck No abnormalities - CVS RRR - Chest No abnormalities - Resp No wheezing - Abd Soft - GI Non distended Deferred - No abnormalities - Ext Mild bilateral lower extremity edema. - MSK 4/5 weakness in both lower extremities. - Neuro No focal deficits - Psych Mild depression and anxiety. ASSESSMENT: Pt. is a 75 yo Right-handed female.On 07/20/2021 she was admitted to [facility] with ze gnosis SMALL BOWL ILEOSTOMY.Her impairment category is Medically Complex Conditions 17 - Medical/Karishma gical Complications (17.8).Pre-morbidly, Pt. was independent/mod-I in Locomotion, Safety Awareness, S ocial Cognition, Transfers Control, and Balance; and she had good Transfers Control, Sphincter Contro l, Self-Care, Communication, and Endurance.Currently, she has deficits of Locomotion, Safety Awarenes s, Social Cognition, Transfers Control, Balance, Sphincter Control, Self-Care, Communication, and End urance.Pt. is now referred to [facility] for acute in-patient rehabilitation i n order to maximize patient's functional independence in activities of daily living, strength, ROM, a nd mobility.- Rehab Goal Patient has realistic goal of being discharged at assistance level 7-Ind to reside at Home with Fami ly/Relatives. MDM/PLAN: - Physical Therapy Gait dysfunction - to improve, our physical therapists will perform initial evaluation of pt's statu s upon admission and devise an individualized program for Gait Training, and Wheel Chair mobility Inability to transfer - to improve, our physical therapists will perform initial evaluation of pt's status upon admission and devise an individualized program for Bed mobility Need for home safety evaluation - to improve, our physical therapists will perform initial evaluatio n of pt's status upon admission and devise an individualized program for Home Evaluation Need in caregiver upon discharge - to improve, our physical therapists will perform initial evaluati on of pt's status upon admission and devise an individualized program for Caregiver Training New precaution - to improve, our physical therapists will perform initial evaluation of pt's status upon admission and devise an individualized program for Patient precaution education Edema - to improve, our physical therapists will perform initial evaluation of pt's status upon admi ssion and devise an individualized program for Elevation Training, and Lymphedema Therapy Poor balance - to improve, our physical therapists will perform initial evaluation of pt's status up on admission and devise an individualized program for Balance Training Poor endurance - to improve, our physical therapists will perform initial evaluation of pt's status upon admission and devise an individualized program for Endurance Training Weakness - to improve, our physical therapists will perform initial evaluation of pt's status upon a dmission and devise an individualized program for Aquatic Therapy, Neuromuscular Reeducation, and Str engthening Achieving independence - to improve, our physical therapists will perform initial evaluation of pt's status upon admission and devise an individualized program for Community Reintegration Activities - Occupational Therapy ADL deficits - to improve, our occupation therapists will perform initial evaluation of pt's status upon admission and devise an individualized program for Bathing, Bed mobility, Community Reintegratio n, Cooking, Dressing, Eating, Fine Motor Skills, Grooming, Homemaking, Kitchen Mobility, Laundry, Pat ient Education, Safety Awareness, Splinting - Positioning, Transfers(Toilet, Tub, Shower), and Wheel Chair Management Cognitive deficits - to improve, our occupation therapists will perform initial evaluation of pt's s tatus upon admission and devise an individualized program for Cognition - orientation Need for careers counsellor - to improve, our occupation therapists will perform initial evaluation of pt's status upon admission and devise an individualized program for Caregiver Training Weakness - to improve, our occupation therapists will perform initial evaluation of pt's status upon admission and devise an individualized program for Aquatic Therapy, Balance, Endurance, UE ROM, and UE strengthening - Other See attached MAR (Medication Administration Record) - Diet Type Continue Regular - Diet - Liquid Texture Continue Regular - Tube Feed Continue N/A - Diet - Solid Texture Continue Regular - Shower allowing shower FUNCTIONAL STATUS: UPDATED AT WEEKLY TEAM CONFERENCE - Bladder Same accident frequency: 7-Ind - No accidents in the past 7 days - Bowel Same accident frequency: 7-Ind - No accidents in the past 7 days - Walking Same score based on distance walked: 0(N/A) Same score based on distance walked: 3(>=150ft) - Wheelchair Same score based on distance traveled: 0(N/A) FUNCTIONAL STATUS: - Self-Care A. Eating Ind B. Grooming Sandra C. Bathing Juju D. Dressing - Upper sup E. Dressing - Lower Juju F. Toileting sup - Sphincter Control G. Bladder control Sandra H. Bowel control Sandra - Transfers Control I. Bed/Chair/Wheelchair Juju J. Toilet Juju K. Tub/Shower Juju - Locomotion L. Walk/Wheelchair (B) Juju M. Stairs Juju - Communication N. Comprehension (B) Sandra O. Expression (B) Sandra - Social Cognition P. Social Interaction Sandra Q. Problem Solving Sandra R. Memory Sandra - Endurance Good - Balance Good - Safety Awareness Good QI SCORES: - Self-Care A. Eating 03-Partial/moderate assistance B. Oral hygiene 03-Partial/moderate assistance C. Toileting hygiene 03-Partial/moderate assistance E. Shower/bathe self 03-Partial/moderate assistance F. Upper body dressing 03-Partial/moderate assistance G. Lower body dressing 03-Partial/moderate assistance H. Putting on/taking off footwear 88-Not attempted due to medical condition or safety concerns - Mobility A. Roll left and right 03-Partial/moderate assistance B. Sit to lying 03-Partial/moderate assistance C. Lying to sitting on side of bed 03-Partial/moderate assistance D. Sit to stand 03-Partial/moderate assistance E. Chair/ntx-ci-qasvv transfer 03-Partial/moderate assistance F. Toilet transfer 03-Partial/moderate assistance G. Car transfer 88-Not attempted due to medical condition or safety concerns I. Walk 10 feet 03-Partial/moderate assistance J. Walk 50 feet with two turns 03-Partial/moderate assistance K. Walk 150 feet 03-Partial/moderate assistance L. Walking 10 feet on uneven surfaces 88-Not attempted due to medical condition or safety concerns M. 1 step (curb) 88-Not attempted due to medical condition or safety concerns N. 4 steps 88-Not attempted due to medical condition or safety concerns O. 12 steps 88-Not attempted due to medical condition or safety concerns P. Picking up object 03-Partial/moderate assistance R. Wheel 50 feet with two turns 88-Not attempted due to medical condition or safety concerns S. Wheel 150 feet 88-Not attempted due to medical condition or safety concerns - Bladder and Bowel Bladder continence Bowel continence - Endurance Fair - Balance Fair - Safety Awareness Fair CURRENT [facility]. DEFICITS: Self-Care, Mobility, Endurance, Balance, and Safety Awareness SIGNATURE PANEL: (CDT)
[2021-08-02] MEDS: MAGNESIUM OXIDE 400 MG TAB PO SCH (20:24)
[2021-08-02] MEDS: CALCIUM CARB 500MG/VIT D 200 IU TAB PO SCH (20:24)
[2021-08-02] MEDS: ZOLPIDEM TARTRATE 5 MG TABLET PO SCH (20:24)
[2021-08-03] MEDS: TRAMADOL HCL 50 MG TAB PO PRN ×4 (05:10→19:52)
[2021-08-03] MEDS: LEVOTHYROXINE SOD 0.025 MG TAB PO SCH (05:10)
[2021-08-03] MEDS: LIDOCAINE 4% PATCH TOP SCH (07:23)
[2021-08-03] MEDS: SODIUM CHLORIDE 0.9% 10ML INJ IV SCH ×2 (07:24→19:54)
[2021-08-03] MEDS: PANTOPRAZOLE 40MG TABLET PO SCH (07:24)
[2021-08-03] MEDS: GABAPENTIN 300 MG CAP PO SCH ×2 (08:37→19:52)
[2021-08-03] MEDS: CALCIUM CARB 500MG/VIT D 200 IU TAB PO SCH ×2 (08:37→19:52)
[2021-08-03] MEDS: AMLODIPINE 5 MG TAB PO SCH (08:37)
[2021-08-03] MEDS: MAGNESIUM OXIDE 400 MG TAB PO SCH ×2 (08:37→19:53)
[2021-08-03] MEDS: CRANBERRY FRUIT EXTRACT 400 MG CAP PO SCH ×2 (08:37→19:53)
[2021-08-03] MEDS: ENSURE HIGH PROTEIN 237 ML CAN PO SCH ×2 (08:37→19:53)
[2021-08-03] MEDS: FE SULF/FA/VIT B COMP & C TAB PO SCH (08:37)
[2021-08-03] MEDS: VALSARTAN 160 MG TAB PO SCH (08:38)
[2021-08-03] MEDS: ASPIRIN 81 MG CHEWABLE TABLET PO SCH (08:38)
[2021-08-03] MEDS: APIXABAN 2.5 MG TABLET PO SCH ×2 (08:38→19:52)
[2021-08-03] MEDS: PRIMIDONE 50 MG TAB PO SCH ×2 (08:38→19:53)
[2021-08-03] MEDS: ONDANSETRON 4 MG (ODT) TAB PO PRN (09:50)
--- NOTE | 2021-08-03 17:24 | R.PN ---
PROGRESS NOTES ENCOUNTER DATE AND TIME: 08/03/2021 17:21 (CDT) NAME JESUS JACOBS DATE OF : 1945 DATE OF ADMISSION: 07/28/2021 15:12 (CDT) SMALL BOWL ILEOSTOMYCHIEF COMPLAINT: Small Bowel ileostomy, debility, severe right shoulder arthritis SUBJECTIVE: Pt denied any depression. Pt denied any Shortness of Breath. She denies significant pain at her surgical site. Labs were reviewed and are stable. She has no new c omplaints. She is doing well with physical and occupational therapy. WBC 10.6, Hgb 9.0, prealbumin 7.8, Mg 1.7, Ca 7.8, UA 2+ esterase, bacteria >50, WBC 5-10. Cultures > 100,000 mixed ina. Started Ca and Mg. Ambulated 2250' with modified independence using a rolling walker. Up and down 32 steps with contact guard assistance. VITAL SIGNS Temperature: 97.6 F SBP/DBP: 142/59 Pulse: 71 Resp: 15 MEDICATION ALLERGIES: CODEINE IODINATED HYDROCODINE ENVIRONMENTAL ALLERGIES: - Substance Allergies None Known - Other Allergies None Known NURSING: - Shower allowing shower ACTIVITIES OOB only with supervision THERAPIES: - Dietary and Nutrition Adequate Nutrition. Nutritional Education. Nutritional Supplements. Evaluate and Treat. - Occupational Therapy Cognitive Retraining. Patient needs Occupational Therapy for a daily minimum of 1.5 hours at least 5 out of 7 days, to improve Activities of Daily Living, including: Eating, Grooming, Bathing, Dressing, Toileting, Toilet Transfers, Community Reintegration, Higher functional activities, Adaptive Equipme nt, Splinting, Household Tasks, and Other activities as determined. Transfer Training. Safety Awarene ss. ADL Training. Evaluate and Treat. Visual Perceptual Training. Patient/Family Education. Household Tasks. - Speech Therapy Cognitive Training. Expressive Language Skills. Memory Strategies. Patient needs Speech Therapy for a daily minimum of 1.5 hours at least 5 out of 7 days, to improve: Swallowing, Cognition, Language Ski lls, and Compensatory Strategies. Receptive Language Skills. Speech Intelligibility Training. Evaluat e and Treat. - Physical Therapy Patient needs Physical Therapy for a daily minimum of 1.5 hours at least 5 out of 7 days, to improve: Mobility, Strengthening, Transfers, Stretching, ROM, Endurance, Ability to manage stairs, Gait, and Balance. Mobility Training. Gait Training. Safety Awareness. Balance Training. Transfer Training. Adelia luate and Treat. Patient/Family Education. LE Strengthening. PHYSICAL EXAM - Gen Alert and awake Lying in bed No apparent distress Oriented to: person, time, and place - Skin No breakdown Normacephalic - Eyes No abnormalities - ENMT No abnormalities - Neck No abnormalities - CVS RRR - Chest No abnormalities - Resp No wheezing - Abd Soft - GI Non distended Deferred - No abnormalities - Ext Mild bilateral lower extremity edema. - MSK 4/5 weakness in both lower extremities. - Neuro No focal deficits - Psych Mild depression and anxiety. ASSESSMENT: Pt. is a 75 yo Right-handed female.On 07/20/2021 she was admitted to [facility] with ze gnosis SMALL BOWL ILEOSTOMY.Her impairment category is Medically Complex Conditions 17 - Medical/Karishma gical Complications (17.8).Pre-morbidly, Pt. was independent/mod-I in Locomotion, Safety Awareness, S ocial Cognition, Transfers Control, and Balance; and she had good Transfers Control, Sphincter Contro l, Self-Care, Communication, and Endurance.Currently, she has deficits of Locomotion, Safety Awarenes s, Social Cognition, Transfers Control, Balance, Sphincter Control, Self-Care, Communication, and End urance.Pt. is now referred to [facility] for acute in-patient rehabilitation i n order to maximize patient's functional independence in activities of daily living, strength, ROM, a nd mobility.- Rehab Goal Patient has realistic goal of being discharged at assistance level 7-Ind to reside at Home with Fami ly/Relatives. MDM/PLAN: - Physical Therapy Gait dysfunction - to improve, our physical therapists will perform initial evaluation of pt's statu s upon admission and devise an individualized program for Gait Training, and Wheel Chair mobility Inability to transfer - to improve, our physical therapists will perform initial evaluation of pt's status upon admission and devise an individualized program for Bed mobility Need for home safety evaluation - to improve, our physical therapists will perform initial evaluatio n of pt's status upon admission and devise an individualized program for Home Evaluation Need in caregiver upon discharge - to improve, our physical therapists will perform initial evaluati on of pt's status upon admission and devise an individualized program for Caregiver Training New precaution - to improve, our physical therapists will perform initial evaluation of pt's status upon admission and devise an individualized program for Patient precaution education Edema - to improve, our physical therapists will perform initial evaluation of pt's status upon admi ssion and devise an individualized program for Elevation Training, and Lymphedema Therapy Poor balance - to improve, our physical therapists will perform initial evaluation of pt's status up on admission and devise an individualized program for Balance Training Poor endurance - to improve, our physical therapists will perform initial evaluation of pt's status upon admission and devise an individualized program for Endurance Training Weakness - to improve, our physical therapists will perform initial evaluation of pt's status upon a dmission and devise an individualized program for Aquatic Therapy, Neuromuscular Reeducation, and Str engthening Achieving independence - to improve, our physical therapists will perform initial evaluation of pt's status upon admission and devise an individualized program for Community Reintegration Activities - Occupational Therapy ADL deficits - to improve, our occupation therapists will perform initial evaluation of pt's status upon admission and devise an individualized program for Bathing, Bed mobility, Community Reintegratio n, Cooking, Dressing, Eating, Fine Motor Skills, Grooming, Homemaking, Kitchen Mobility, Laundry, Pat ient Education, Safety Awareness, Splinting - Positioning, Transfers(Toilet, Tub, Shower), and Wheel Chair Management Cognitive deficits - to improve, our occupation therapists will perform initial evaluation of pt's s tatus upon admission and devise an individualized program for Cognition - orientation Need for eye care professional - to improve, our occupation therapists will perform initial evaluation of pt's status upon admission and devise an individualized program for Caregiver Training Weakness - to improve, our occupation therapists will perform initial evaluation of pt's status upon admission and devise an individualized program for Aquatic Therapy, Balance, Endurance, UE ROM, and UE strengthening - Other See attached MAR (Medication Administration Record) - Diet Type Continue Regular - Diet - Liquid Texture Continue Regular - Tube Feed Continue N/A - Diet - Solid Texture Continue Regular - Shower allowing shower FUNCTIONAL STATUS: UPDATED AT WEEKLY TEAM CONFERENCE - Bladder Same accident frequency: 7-Ind - No accidents in the past 7 days - Bowel Same accident frequency: 7-Ind - No accidents in the past 7 days - Walking Same score based on distance walked: 0(N/A) Same score based on distance walked: 3(>=150ft) - Wheelchair Same score based on distance traveled: 0(N/A) FUNCTIONAL STATUS: - Self-Care A. Eating Ind B. Grooming Sandra C. Bathing Juju D. Dressing - Upper sup E. Dressing - Lower Juju F. Toileting sup - Sphincter Control G. Bladder control Sandra H. Bowel control Sandra - Transfers Control I. Bed/Chair/Wheelchair Juju J. Toilet Juju K. Tub/Shower Juju - Locomotion L. Walk/Wheelchair (B) Juju M. Stairs Juju - Communication N. Comprehension (B) Sandra O. Expression (B) Sandra - Social Cognition P. Social Interaction Sandra Q. Problem Solving Sandra R. Memory Sandra - Endurance Good - Balance Good - Safety Awareness Good QI SCORES: - Self-Care A. Eating 03-Partial/moderate assistance B. Oral hygiene 03-Partial/moderate assistance C. Toileting hygiene 03-Partial/moderate assistance E. Shower/bathe self 03-Partial/moderate assistance F. Upper body dressing 03-Partial/moderate assistance G. Lower body dressing 03-Partial/moderate assistance H. Putting on/taking off footwear 88-Not attempted due to medical condition or safety concerns - Mobility A. Roll left and right 03-Partial/moderate assistance B. Sit to lying 03-Partial/moderate assistance C. Lying to sitting on side of bed 03-Partial/moderate assistance D. Sit to stand 03-Partial/moderate assistance E. Chair/[id number] transfer 03-Partial/moderate assistance F. Toilet transfer 03-Partial/moderate assistance G. Car transfer 88-Not attempted due to medical condition or safety concerns I. Walk 10 feet 03-Partial/moderate assistance J. Walk 50 feet with two turns 03-Partial/moderate assistance K. Walk 150 feet 03-Partial/moderate assistance L. Walking 10 feet on uneven surfaces 88-Not attempted due to medical condition or safety concerns M. 1 step (curb) 88-Not attempted due to medical condition or safety concerns N. 4 steps 88-Not attempted due to medical condition or safety concerns O. 12 steps 88-Not attempted due to medical condition or safety concerns P. Picking up object 03-Partial/moderate assistance R. Wheel 50 feet with two turns 88-Not attempted due to medical condition or safety concerns S. Wheel 150 feet 88-Not attempted due to medical condition or safety concerns - Bladder and Bowel Bladder continence Bowel continence - Endurance Fair - Balance Fair - Safety Awareness Fair CURRENT [facility]. DEFICITS: Self-Care, Mobility, Endurance, Balance, and Safety Awareness SIGNATURE PANEL: (CDT)
[2021-08-03] MEDS: ZOLPIDEM TARTRATE 5 MG TABLET PO SCH (19:53)
[2021-08-04] MEDS: TRAMADOL HCL 50 MG TAB PO PRN ×4 (03:32→17:01)
[2021-08-04 05:13] LABS: Absolute Lymphocytes (CBC) 2.1 K/uL (0.7-4.9); Hematocrit 30.2 % (36.0-45.0); Lymphocytes % 20.4 % (15.3-44.8); MPV 8.2 fL (7.6-11.3); RBC Red Blood Cell Count 3.37 M/uL (3.86-4.86)
[2021-08-04] MEDS: LEVOTHYROXINE SOD 0.025 MG TAB PO SCH (05:24)
[2021-08-04 05:28] LABS: Albumin 2.6 g/dL (3.4-5.0); Magnesium 2.2 mg/dL (1.8-2.4); Potassium 4.4 mmol/L (3.5-5.1); Prealbumin 22.2 mg/dL (20-40)
[2021-08-04] MEDS: PANTOPRAZOLE 40MG TABLET PO SCH (06:37)
[2021-08-04] MEDS: LIDOCAINE 4% PATCH TOP SCH (06:37)
[2021-08-04] MEDS: SODIUM CHLORIDE 0.9% 10ML INJ IV SCH ×2 (06:42→20:30)
[2021-08-04] MEDS: ASPIRIN 81 MG CHEWABLE TABLET PO SCH (08:34)
[2021-08-04] MEDS: MAGNESIUM OXIDE 400 MG TAB PO SCH ×2 (08:34→20:30)
[2021-08-04] MEDS: CRANBERRY FRUIT EXTRACT 400 MG CAP PO SCH ×2 (08:34→20:32)
[2021-08-04] MEDS: FE SULF/FA/VIT B COMP & C TAB PO SCH (08:34)
[2021-08-04] MEDS: GABAPENTIN 300 MG CAP PO SCH ×2 (08:35→20:32)
[2021-08-04] MEDS: AMLODIPINE 5 MG TAB PO SCH (08:35)
[2021-08-04] MEDS: APIXABAN 2.5 MG TABLET PO SCH ×2 (08:35→20:30)
[2021-08-04] MEDS: ENSURE HIGH PROTEIN 237 ML CAN PO SCH ×2 (08:35→20:32)
[2021-08-04] MEDS: VALSARTAN 160 MG TAB PO SCH (08:35)
[2021-08-04] MEDS: CALCIUM CARB 500MG/VIT D 200 IU TAB PO SCH ×2 (08:35→20:32)
[2021-08-04] MEDS: PRIMIDONE 50 MG TAB PO SCH ×2 (08:35→20:32)
[2021-08-04] MEDS: DULOXETINE 20 MG CAP PO SCH (17:01)
--- NOTE | 2021-08-04 18:16 | R.PN ---
PROGRESS NOTES ENCOUNTER DATE AND TIME: 08/04/2021 18:07 (CDT) NAME JESUS JACOBS DATE OF : 1945 DATE OF ADMISSION: 07/28/2021 15:12 (CDT) SMALL BOWL ILEOSTOMYCHIEF COMPLAINT: Small Bowel ileostomy, debility, severe right shoulder arthritis SUBJECTIVE: Pt denied any depression. Pt denied any Shortness of Breath. She denies significant pain at her surgical site. Labs were reviewed and are stable. She has no new c omplaints. She is doing well with physical and occupational therapy. WBC 10.2, Hgb 10.1, Plt 566, prealbumin 22.2, Mg 2.2, Ca 8.7, UA 2+ esterase, bacteria >50, WBC 5-1 0. Cultures > 100,000 mixed ina. Started Ca and Mg. Ambulated 500' with modified independence using a rolling walker. Up and down 15 steps with contact g uard assistance. Wheelchair 100' with modified independence. VITAL SIGNS Temperature: 97.2 F SBP/DBP: 148/52 Pulse: 76 Resp: 16 MEDICATION ALLERGIES: CODEINE IODINATED HYDROCODINE ENVIRONMENTAL ALLERGIES: - Substance Allergies None Known - Other Allergies None Known NURSING: - Shower allowing shower ACTIVITIES OOB only with supervision THERAPIES: - Dietary and Nutrition Adequate Nutrition. Nutritional Education. Nutritional Supplements. Evaluate and Treat. - Occupational Therapy Cognitive Retraining. Patient needs Occupational Therapy for a daily minimum of 1.5 hours at least 5 out of 7 days, to improve Activities of Daily Living, including: Eating, Grooming, Bathing, Dressing, Toileting, Toilet Transfers, Community Reintegration, Higher functional activities, Adaptive Equipme nt, Splinting, Household Tasks, and Other activities as determined. Transfer Training. Safety Awarene ss. ADL Training. Evaluate and Treat. Visual Perceptual Training. Patient/Family Education. Household Tasks. - Speech Therapy Cognitive Training. Expressive Language Skills. Memory Strategies. Patient needs Speech Therapy for a daily minimum of 1.5 hours at least 5 out of 7 days, to improve: Swallowing, Cognition, Language Ski lls, and Compensatory Strategies. Receptive Language Skills. Speech Intelligibility Training. Evaluat e and Treat. - Physical Therapy Patient needs Physical Therapy for a daily minimum of 1.5 hours at least 5 out of 7 days, to improve: Mobility, Strengthening, Transfers, Stretching, ROM, Endurance, Ability to manage stairs, Gait, and Balance. Mobility Training. Gait Training. Safety Awareness. Balance Training. Transfer Training. Adelia luate and Treat. Patient/Family Education. LE Strengthening. PHYSICAL EXAM - Gen Alert and awake Lying in bed No apparent distress Oriented to: person, time, and place - Skin No breakdown Normacephalic - Eyes No abnormalities - ENMT No abnormalities - Neck No abnormalities - CVS RRR - Chest No abnormalities - Resp No wheezing - Abd Soft - GI Non distended Deferred - No abnormalities - Ext Mild bilateral lower extremity edema. - MSK 4/5 weakness in both lower extremities. - Neuro No focal deficits - Psych Mild depression and anxiety. ASSESSMENT: Pt. is a 75 yo Right-handed female.On 07/20/[address] [facility] with ze gnosis SMALL BOWL ILEOSTOMY.Her impairment category is Medically Complex Conditions 17 - Medical/Karishma gical Complications (17.8).Pre-morbidly, Pt. was independent/mod-I in Locomotion, Safety Awareness, S ocial Cognition, Transfers Control, and Balance; and she had good Transfers Control, Sphincter Contro l, Self-Care, Communication, and Endurance.Currently, she has deficits of Locomotion, Safety Awarenes s, Social Cognition, Transfers Control, Balance, Sphincter Control, Self-Care, Communication, and End urance.Pt. is now referred to [facility] for acute in-patient rehabilitation i n order to maximize patient's functional independence in activities of daily living, strength, ROM, a nd mobility.- Rehab Goal Patient has realistic goal of being discharged at assistance level 7-Ind to reside at Home with Fami ly/Relatives. MDM/PLAN: - Physical Therapy Gait dysfunction - to improve, our physical therapists will perform initial evaluation of pt's statu s upon admission and devise an individualized program for Gait Training, and Wheel Chair mobility Inability to transfer - to improve, our physical therapists will perform initial evaluation of pt's status upon admission and devise an individualized program for Bed mobility Need for home safety evaluation - to improve, our physical therapists will perform initial evaluatio n of pt's status upon admission and devise an individualized program for Home Evaluation Need in caregiver upon discharge - to improve, our physical therapists will perform initial evaluati on of pt's status upon admission and devise an individualized program for Caregiver Training New precaution - to improve, our physical therapists will perform initial evaluation of pt's status upon admission and devise an individualized program for Patient precaution education Edema - to improve, our physical therapists will perform initial evaluation of pt's status upon admi ssion and devise an individualized program for Elevation Training, and Lymphedema Therapy Poor balance - to improve, our physical therapists will perform initial evaluation of pt's status up on admission and devise an individualized program for Balance Training Poor endurance - to improve, our physical therapists will perform initial evaluation of pt's status upon admission and devise an individualized program for Endurance Training Weakness - to improve, our physical therapists will perform initial evaluation of pt's status upon a dmission and devise an individualized program for Aquatic Therapy, Neuromuscular Reeducation, and Str engthening Achieving independence - to improve, our physical therapists will perform initial evaluation of pt's status upon admission and devise an individualized program for Community Reintegration Activities - Occupational Therapy ADL deficits - to improve, our occupation therapists will perform initial evaluation of pt's status upon admission and devise an individualized program for Bathing, Bed mobility, Community Reintegratio n, Cooking, Dressing, Eating, Fine Motor Skills, Grooming, Homemaking, Kitchen Mobility, Laundry, Pat ient Education, Safety Awareness, Splinting - Positioning, Transfers(Toilet, Tub, Shower), and Wheel Chair Management Cognitive deficits - to improve, our occupation therapists will perform initial evaluation of pt's s tatus upon admission and devise an individualized program for Cognition - orientation Need for youth care specialist - to improve, our occupation therapists will perform initial evaluation of pt's status upon admission and devise an individualized program for Caregiver Training Weakness - to improve, our occupation therapists will perform initial evaluation of pt's status upon admission and devise an individualized program for Aquatic Therapy, Balance, Endurance, UE ROM, and UE strengthening - Other See attached MAR (Medication Administration Record) - Diet Type Continue Regular - Diet - Liquid Texture Continue Regular - Tube Feed Continue N/A - Diet - Solid Texture Continue Regular - Shower allowing shower FUNCTIONAL STATUS: UPDATED AT WEEKLY TEAM CONFERENCE - Bladder Same accident frequency: 7-Ind - No accidents in the past 7 days - Bowel Same accident frequency: 7-Ind - No accidents in the past 7 days - Walking Same score based on distance walked: 0(N/A) Same score based on distance walked: 3(>=150ft) - Wheelchair Same score based on distance traveled: 0(N/A) FUNCTIONAL STATUS: - Self-Care A. Eating Ind B. Grooming Sandra C. Bathing Juju D. Dressing - Upper sup E. Dressing - Lower Juju F. Toileting sup - Sphincter Control G. Bladder control Sandra H. Bowel control Sandra - Transfers Control I. Bed/Chair/Wheelchair Juju J. Toilet Juju K. Tub/Shower Juju - Locomotion L. Walk/Wheelchair (B) Juju M. Stairs Juju - Communication N. Comprehension (B) Sandra O. Expression (B) Sandra - Social Cognition P. Social Interaction Sandra Q. Problem Solving Sandra R. Memory Sandra - Endurance Good - Balance Good - Safety Awareness Good QI SCORES: - Self-Care A. Eating 03-Partial/moderate assistance B. Oral hygiene 03-Partial/moderate assistance C. Toileting hygiene 03-Partial/moderate assistance E. Shower/bathe self 03-Partial/moderate assistance F. Upper body dressing 03-Partial/moderate assistance G. Lower body dressing 03-Partial/moderate assistance H. Putting on/taking off footwear 88-Not attempted due to medical condition or safety concerns - Mobility A. Roll left and right 03-Partial/moderate assistance B. Sit to lying 03-Partial/moderate assistance C. Lying to sitting on side of bed 03-Partial/moderate assistance D. Sit to stand 03-Partial/moderate assistance E. Chair/[id number] transfer 03-Partial/moderate assistance F. Toilet transfer 03-Partial/moderate assistance G. Car transfer 88-Not attempted due to medical condition or safety concerns I. Walk 10 feet 03-Partial/moderate assistance J. Walk 50 feet with two turns 03-Partial/moderate assistance K. Walk 150 feet 03-Partial/moderate assistance L. Walking 10 feet on uneven surfaces 88-Not attempted due to medical condition or safety concerns M. 1 step (curb) 88-Not attempted due to medical condition or safety concerns N. 4 steps 88-Not attempted due to medical condition or safety concerns O. 12 steps 88-Not attempted due to medical condition or safety concerns P. Picking up object 03-Partial/moderate assistance R. Wheel 50 feet with two turns 88-Not attempted due to medical condition or safety concerns S. Wheel 150 feet 88-Not attempted due to medical condition or safety concerns - Bladder and Bowel Bladder continence Bowel continence - Endurance Fair - Balance Fair - Safety Awareness Fair CURRENT [facility]. DEFICITS: Self-Care, Mobility, Endurance, Balance, and Safety Awareness SIGNATURE PANEL: (CDT)
[2021-08-04] MEDS: ZOLPIDEM TARTRATE 5 MG TABLET PO SCH (20:32)
[2021-08-05] MEDS: LEVOTHYROXINE SOD 0.025 MG TAB PO SCH (05:10)
[2021-08-05 05:49] LABS: MPV 8.4 fL (7.6-11.3)
[2021-08-05] MEDS: PANTOPRAZOLE 40MG TABLET PO SCH (06:44)
[2021-08-05] MEDS: TRAMADOL HCL 50 MG TAB PO PRN ×3 (06:45→20:09)
[2021-08-05] MEDS: LIDOCAINE 4% PATCH TOP SCH (06:45)
[2021-08-05] MEDS: ENSURE HIGH PROTEIN 237 ML CAN PO SCH ×2 (06:47→20:10)
[2021-08-05] MEDS: SODIUM CHLORIDE 0.9% 10ML INJ IV SCH ×2 (06:48→20:00)
[2021-08-05] MEDS: APIXABAN 2.5 MG TABLET PO SCH ×2 (09:11→20:09)
[2021-08-05] MEDS: CALCIUM CARB 500MG/VIT D 200 IU TAB PO SCH ×2 (09:11→20:09)
[2021-08-05] MEDS: CRANBERRY FRUIT EXTRACT 400 MG CAP PO SCH ×2 (09:11→20:09)
[2021-08-05] MEDS: VALSARTAN 160 MG TAB PO SCH (09:11)
[2021-08-05] MEDS: FE SULF/FA/VIT B COMP & C TAB PO SCH (09:11)
[2021-08-05] MEDS: GABAPENTIN 300 MG CAP PO SCH ×2 (09:11→20:10)
[2021-08-05] MEDS: DULOXETINE 20 MG CAP PO SCH (09:12)
[2021-08-05] MEDS: PRIMIDONE 50 MG TAB PO SCH ×2 (09:12→20:09)
[2021-08-05] MEDS: AMLODIPINE 5 MG TAB PO SCH (09:12)
[2021-08-05] MEDS: MAGNESIUM OXIDE 400 MG TAB PO SCH ×2 (09:12→20:10)
[2021-08-05] MEDS: ASPIRIN 81 MG CHEWABLE TABLET PO SCH (09:12)
--- NOTE | 2021-08-05 09:59 | P.RH.PN ---
Estimated Length of Stay: 13 Expected Discharge Date: 08/10/21 Discharge Disposition Plan: Home Family Support: Yes Skilled Nursing Goal: Mobility, Transfers, Self Care Vital Signs: Last Vital Signs Temp 97.0 F 08/05/21 08:00 Pulse 69 08/05/21 09:12 Resp 16 08/05/21 08:00 BP 129/51 L 08/05/21 09:12 Pulse Ox 97 08/05/21 08:00 Laboratory: Laboratory Last Values WBC 10.20 K/uL (4.3-10.9) 08/04/21 04:20 RBC 3.37 M/uL (3.86-4.86) L 08/04/21 04:20 Hgb 10.1 g/dL (12.0-15.0) L 08/04/21 04:20 Hct 30.2 % (36.0-45.0) L 08/04/21 04:20 MCV 89.8 fL (80-100) 08/04/21 04:20 MCH 29.9 pg (27.0-35.0) 08/04/21 04:20 MCHC 33.3 g/dL (32.0-36.0) 08/04/21 04:20 RDW 13.9 % (12.1-15.2) 08/04/21 04:20 Plt Count 523 K/uL (152-406) H 08/05/21 04:40 MPV 8.4 fL (7.6-11.3) 08/05/21 04:40 Neutrophils % 66.8 % (41.7-73.7) 08/04/21 04:20 Lymphocytes % 20.4 % (15.3-44.8) 08/04/21 04:20 Monocytes % 11.1 % (3.3-12.3) 08/04/21 04:20 Eosinophils % 1.2 % (0-4.4) 08/04/21 04:20 Basophils % 0.5 % (0-1.3) 08/04/21 04:20 Absolute Neutrophils 6.8 K/uL (1.8-8.0) 08/04/21 04:20 Absolute Lymphocytes 2.1 K/uL (0.7-4.9) 08/04/21 04:20 Absolute Monocytes 1.1 K/uL (0.1-1.3) 08/04/21 04:20 Absolute Eosinophils 0.1 K/uL (0-0.5) 08/04/21 04:20 Absolute Basophils 0.0 K/uL (0-0.5) 08/04/21 04:20 Sodium 137 mmol/L (136-145) 08/04/21 04:20 Potassium 4.4 mmol/L (3.5-5.1) 08/04/21 04:20 Chloride 101 mmol/L (98-107) 08/04/21 04:20 Carbon Dioxide 30 mmol/L (21-32) 08/04/21 04:20 BUN 23 mg/dL (7-18) H 08/04/21 04:20 Creatinine 0.79 mg/dL (0.55-1.3) 08/04/21 04:20 Estimated GFR 71 mL/min (=/>90) L 08/04/21 04:20 Glucose 109 mg/dL (74-106) H 08/04/21 04:20 Calcium 8.7 mg/dL (8.5-10.1) 08/04/21 04:20 Magnesium 2.2 mg/dL (1.8-2.4) D 08/04/21 04:20 Albumin 2.6 g/dL (3.4-5.0) L 08/04/21 04:20 Prealbumin 22.2 mg/dL (20-40) 08/04/21 04:20 Urine Color Dk yellow (Yellow) 07/28/21 20:45 Urine Appearance Turbid (Clear) 07/28/21 20:45 Urine pH 6.0 (5.0-7.0) 07/28/21 20:45 Ur Specific [place] 1.020 (1.005-1.030) 07/28/21 20:45 Glucose (UA)(Auto) Negative (Negative) 07/28/21 20:45 Urine Ketones 1+ (Negative) H 07/28/21 20:45 Urine Blood 2+ (Negative) H 07/28/21 20:45 Urine Nitrite Negative (Negative) 07/28/21 20:45 Urine Bilirubin Negative (Negative) 07/28/21 20:45 Urine Urobilinogen 0.2 mg/dL (0.2-1.0) 07/28/21 20:45 Ur Leukocyte Esterase 2+ (Negative) H 07/28/21 20:45 Urine RBC 5-10 /HPF (NONE SEEN) H 07/28/21 20:45 Urine WBC 5-10 /HPF (<5) H 07/28/21 20:45 Ur Squamous Epith Cells 20-50 /HPF (NONE SEEN) H 07/28/21 20:45 Urine Bacteria >50 /HPF (<20) H 07/28/21 20:45 Urine Mucus 2+ /HPF (NONE SEEN) 07/28/21 20:45 Urine Culture Reflexed Not needed 07/28/21 20:45 Urine Total Protein Negative (Negative) 07/28/21 20:45 SARS-CoV-2 Rap RNA(RT-PCR) Negative (NEGATIVE) 08/04/21 04:23 Weight: 133 lb 11.2 oz Wound Present: No Closed Surgical Incision Present: Yes Negative Pressure Wound Therapy Present: Yes Physician Update: Independent with bed mobility and transfers. She is walking 1000' and moving wheelchair 250' with modified independence. She has difficulty with the colostomy. Working on memory and attention with speech and is improving. Comment: has wound vac to midline incision in abdomen since admission 07/28 from [facility]. Pt had ex-lap 07/20. C to change dressing M-W-F; last changed 08/03; noted pressure @ 120mmHg with 5 min interval. Summary: Patient's care plan and penitentiary goals have been reviewed and revised as necessary. Please see the Rehabilitation Signature page for all necessary signatures.
[2021-08-05] MEDS ORDERED: LIDOCAINE JELLY 2%- 5 ML TUBE TOP ONE (13:30)
--- NOTE | 2021-08-05 19:29 | PN ---
Date of Progress Note: 08/05/2021 Diagnoses: Status post colostomy, multiple enterocutaneous and colocutaneous fistulas. Small-bowel resection with anastomosis. Subjective: Patient doing well. No complaint. Currently in Rehab. Today, we take a look at the ab domen. we find out that the wound is healing good, the ostomy is viable and functional, ab domen is soft and depressible. Bowel sounds positive. Midline incision very shallow. Excellent gra nulation tissue. Ostomy viable. Plan: We are going to discontinue the wound VAC. We are going to continue with wet-to-dry dressing. Continue Rehab, ambulation. HM/MODL Voice ID: [id number] Report ID: [id number]
[2021-08-05] MEDS: ZOLPIDEM TARTRATE 5 MG TABLET PO SCH (20:11)
[2021-08-06] MEDS: TRAMADOL HCL 50 MG TAB PO PRN ×2 (04:21→12:03)
[2021-08-06] MEDS: LEVOTHYROXINE SOD 0.025 MG TAB PO SCH (05:09)
[2021-08-06] MEDS: GABAPENTIN 300 MG CAP PO SCH ×2 (07:20→19:27)
[2021-08-06] MEDS: LIDOCAINE 4% PATCH TOP SCH (07:21)
[2021-08-06] MEDS: FE SULF/FA/VIT B COMP & C TAB PO SCH (07:21)
[2021-08-06] MEDS: CRANBERRY FRUIT EXTRACT 400 MG CAP PO SCH ×2 (07:22→19:28)
[2021-08-06] MEDS: APIXABAN 2.5 MG TABLET PO SCH ×2 (07:22→19:29)
[2021-08-06] MEDS: ASPIRIN 81 MG CHEWABLE TABLET PO SCH (07:22)
[2021-08-06] MEDS: AMLODIPINE 5 MG TAB PO SCH (07:22)
[2021-08-06] MEDS: CALCIUM CARB 500MG/VIT D 200 IU TAB PO SCH ×2 (07:22→19:28)
[2021-08-06] MEDS: PANTOPRAZOLE 40MG TABLET PO SCH (07:22)
[2021-08-06] MEDS: VALSARTAN 160 MG TAB PO SCH (07:22)
[2021-08-06] MEDS: MAGNESIUM OXIDE 400 MG TAB PO SCH ×2 (07:22→19:28)
[2021-08-06] MEDS: DULOXETINE 20 MG CAP PO SCH (07:23)
[2021-08-06] MEDS: PRIMIDONE 50 MG TAB PO SCH ×2 (07:23→19:28)
[2021-08-06] MEDS: SODIUM CHLORIDE 0.9% 10ML INJ IV SCH ×2 (07:24→19:29)
[2021-08-06] MEDS: ENSURE HIGH PROTEIN 237 ML CAN PO SCH ×2 (07:24→19:29)
--- NOTE | 2021-08-06 15:22 | R.PN ---
PROGRESS NOTES ENCOUNTER DATE AND TIME: 08/06/2021 15:20 (CDT) NAME JESUS JACOBS DATE OF : 1945 DATE OF ADMISSION: 07/28/2021 15:12 (CDT) SMALL BOWL ILEOSTOMYCHIEF COMPLAINT: Small Bowel ileostomy, debility, severe right shoulder arthritis SUBJECTIVE: Pt denied any depression. Pt denied any Shortness of Breath. She denies significant pain at her surgical site. Labs were reviewed and are stable. She has no new c omplaints. She is doing well with physical and occupational therapy. WBC 10.2, Hgb 10.1, Plt 523, prealbumin 22.2, Mg 2.2, Ca 8.7, UA 2+ esterase, bacteria >50, WBC 5-1 0. Cultures > 100,000 mixed ina. Started Ca and Mg. Ambulated 500' with contact guard assistance using a rolling walker. VITAL SIGNS Temperature: 97.6 F SBP/DBP: 123/55 Pulse: 69 Resp: 15 MEDICATION ALLERGIES: CODEINE IODINATED HYDROCODINE ENVIRONMENTAL ALLERGIES: - Substance Allergies None Known - Other Allergies None Known NURSING: - Shower allowing shower ACTIVITIES OOB only with supervision THERAPIES: - Dietary and Nutrition Adequate Nutrition. Nutritional Education. Nutritional Supplements. Evaluate and Treat. - Occupational Therapy Cognitive Retraining. Patient needs Occupational Therapy for a daily minimum of 1.5 hours at least 5 out of 7 days, to improve Activities of Daily Living, including: Eating, Grooming, Bathing, Dressing, Toileting, Toilet Transfers, Community Reintegration, Higher functional activities, Adaptive Equipme nt, Splinting, Household Tasks, and Other activities as determined. Transfer Training. Safety Awarene ss. ADL Training. Evaluate and Treat. Visual Perceptual Training. Patient/Family Education. Household Tasks. - Speech Therapy Cognitive Training. Expressive Language Skills. Memory Strategies. Patient needs Speech Therapy for a daily minimum of 1.5 hours at least 5 out of 7 days, to improve: Swallowing, Cognition, Language Ski lls, and Compensatory Strategies. Receptive Language Skills. Speech Intelligibility Training. Evaluat e and Treat. - Physical Therapy Patient needs Physical Therapy for a daily minimum of 1.5 hours at least 5 out of 7 days, to improve: Mobility, Strengthening, Transfers, Stretching, ROM, Endurance, Ability to manage stairs, Gait, and Balance. Mobility Training. Gait Training. Safety Awareness. Balance Training. Transfer Training. Adelia luate and Treat. Patient/Family Education. LE Strengthening. PHYSICAL EXAM - Gen Alert and awake Lying in bed No apparent distress Oriented to: person, time, and place - Skin No breakdown Normacephalic - Eyes No abnormalities - ENMT No abnormalities - Neck No abnormalities - CVS RRR - Chest No abnormalities - Resp No wheezing - Abd Soft - GI Non distended Deferred - No abnormalities - Ext Mild bilateral lower extremity edema. - MSK 4/5 weakness in both lower extremities. - Neuro No focal deficits - Psych Mild depression and anxiety. ASSESSMENT: Pt. is a 75 yo Right-handed female.On 07/20/2021 she was admitted to [facility] with ze gnosis SMALL BOWL ILEOSTOMY.Her impairment category is Medically Complex Conditions 17 - Medical/Karishma gical Complications (17.8).Pre-morbidly, Pt. was independent/mod-I in Locomotion, Safety Awareness, S ocial Cognition, Transfers Control, and Balance; and she had good Transfers Control, Sphincter Contro l, Self-Care, Communication, and Endurance.Currently, she has deficits of Locomotion, Safety Awarenes s, Social Cognition, Transfers Control, Balance, Sphincter Control, Self-Care, Communication, and End urance.Pt. is now referred to [facility] for acute in-patient rehabilitation i n order to maximize patient's functional independence in activities of daily living, strength, ROM, a nd mobility.- Rehab Goal Patient has realistic goal of being discharged at assistance level 7-Ind to reside at Home with Fami ly/Relatives. MDM/PLAN: - Physical Therapy Gait dysfunction - to improve, our physical therapists will perform initial evaluation of pt's statu s upon admission and devise an individualized program for Gait Training, and Wheel Chair mobility Inability to transfer - to improve, our physical therapists will perform initial evaluation of pt's status upon admission and devise an individualized program for Bed mobility Need for home safety evaluation - to improve, our physical therapists will perform initial evaluatio n of pt's status upon admission and devise an individualized program for Home Evaluation Need in caregiver upon discharge - to improve, our physical therapists will perform initial evaluati on of pt's status upon admission and devise an individualized program for Caregiver Training New precaution - to improve, our physical therapists will perform initial evaluation of pt's status upon admission and devise an individualized program for Patient precaution education Edema - to improve, our physical therapists will perform initial evaluation of pt's status upon admi ssion and devise an individualized program for Elevation Training, and Lymphedema Therapy Poor balance - to improve, our physical therapists will perform initial evaluation of pt's status up on admission and devise an individualized program for Balance Training Poor endurance - to improve, our physical therapists will perform initial evaluation of pt's status upon admission and devise an individualized program for Endurance Training Weakness - to improve, our physical therapists will perform initial evaluation of pt's status upon a dmission and devise an individualized program for Aquatic Therapy, Neuromuscular Reeducation, and Str engthening Achieving independence - to improve, our physical therapists will perform initial evaluation of pt's status upon admission and devise an individualized program for Community Reintegration Activities - Occupational Therapy ADL deficits - to improve, our occupation therapists will perform initial evaluation of pt's status upon admission and devise an individualized program for Bathing, Bed mobility, Community Reintegratio n, Cooking, Dressing, Eating, Fine Motor Skills, Grooming, Homemaking, Kitchen Mobility, Laundry, Pat ient Education, Safety Awareness, Splinting - Positioning, Transfers(Toilet, Tub, Shower), and Wheel Chair Management Cognitive deficits - to improve, our occupation therapists will perform initial evaluation of pt's s tatus upon admission and devise an individualized program for Cognition - orientation Need for home visit field care manager - to improve, our occupation therapists will perform initial evaluation of pt's status upon admission and devise an individualized program for Caregiver Training Weakness - to improve, our occupation therapists will perform initial evaluation of pt's status upon admission and devise an individualized program for Aquatic Therapy, Balance, Endurance, UE ROM, and UE strengthening - Other See attached MAR (Medication Administration Record) - Diet Type Continue Regular - Diet - Liquid Texture Continue Regular - Tube Feed Continue N/A - Diet - Solid Texture Continue Regular - Shower allowing shower FUNCTIONAL STATUS: UPDATED AT WEEKLY TEAM CONFERENCE - Bladder Same accident frequency: 7-Ind - No accidents in the past 7 days - Bowel Same accident frequency: 7-Ind - No accidents in the past 7 days - Walking Same score based on distance walked: 0(N/A) Same score based on distance walked: 3(>=150ft) - Wheelchair Same score based on distance traveled: 0(N/A) FUNCTIONAL STATUS: - Self-Care A. Eating Ind B. Grooming Sandra C. Bathing Juju D. Dressing - Upper sup E. Dressing - Lower Juju F. Toileting sup - Sphincter Control G. Bladder control Sandra H. Bowel control Sandra - Transfers Control I. Bed/Chair/Wheelchair Juju J. Toilet Juju K. Tub/Shower Juju - Locomotion L. Walk/Wheelchair (B) Juju M. Stairs Juju - Communication N. Comprehension (B) Sandra O. Expression (B) Sandra - Social Cognition P. Social Interaction Sandra Q. Problem Solving Sandra R. Memory Sandra - Endurance Good - Balance Good - Safety Awareness Good QI SCORES: - Self-Care A. Eating 03-Partial/moderate assistance B. Oral hygiene 03-Partial/moderate assistance C. Toileting hygiene 03-Partial/moderate assistance E. Shower/bathe self 03-Partial/moderate assistance F. Upper body dressing 03-Partial/moderate assistance G. Lower body dressing 03-Partial/moderate assistance H. Putting on/taking off footwear 88-Not attempted due to medical condition or safety concerns - Mobility A. Roll left and right 03-Partial/moderate assistance B. Sit to lying 03-Partial/moderate assistance C. Lying to sitting on side of bed 03-Partial/moderate assistance D. Sit to stand 03-Partial/moderate assistance E. Chair/[id number] transfer 03-Partial/moderate assistance F. Toilet transfer 03-Partial/moderate assistance G. Car transfer 88-Not attempted due to medical condition or safety concerns I. Walk 10 feet 03-Partial/moderate assistance J. Walk 50 feet with two turns 03-Partial/moderate assistance K. Walk 150 feet 03-Partial/moderate assistance L. Walking 10 feet on uneven surfaces 88-Not attempted due to medical condition or safety concerns M. 1 step (curb) 88-Not attempted due to medical condition or safety concerns N. 4 steps 88-Not attempted due to medical condition or safety concerns O. 12 steps 88-Not attempted due to medical condition or safety concerns P. Picking up object 03-Partial/moderate assistance R. Wheel 50 feet with two turns 88-Not attempted due to medical condition or safety concerns S. Wheel 150 feet 88-Not attempted due to medical condition or safety concerns - Bladder and Bowel Bladder continence Bowel continence - Endurance Fair - Balance Fair - Safety Awareness Fair CURRENT PENDING SALE TO [facility]. DEFICITS: Self-Care, Mobility, Endurance, Balance, and Safety Awareness SIGNATURE PANEL: (CDT)
[2021-08-06] MEDS: ZOLPIDEM TARTRATE 5 MG TABLET PO SCH (19:27)
[2021-08-07] MEDS: TRAMADOL HCL 50 MG TAB PO PRN ×3 (06:32→19:11)
[2021-08-07] MEDS: LEVOTHYROXINE SOD 0.025 MG TAB PO SCH (06:32)
[2021-08-07] MEDS: LIDOCAINE 4% PATCH TOP SCH (07:33)
[2021-08-07] MEDS: FE SULF/FA/VIT B COMP & C TAB PO SCH (07:33)
[2021-08-07] MEDS: VALSARTAN 160 MG TAB PO SCH (07:34)
[2021-08-07] MEDS: GABAPENTIN 300 MG CAP PO SCH ×2 (07:34→19:12)
[2021-08-07] MEDS: PRIMIDONE 50 MG TAB PO SCH ×2 (07:34→19:13)
[2021-08-07] MEDS: APIXABAN 2.5 MG TABLET PO SCH ×2 (07:34→19:13)
[2021-08-07] MEDS: ASPIRIN 81 MG CHEWABLE TABLET PO SCH (07:34)
[2021-08-07] MEDS: CALCIUM CARB 500MG/VIT D 200 IU TAB PO SCH ×2 (07:34→19:13)
[2021-08-07] MEDS: MAGNESIUM OXIDE 400 MG TAB PO SCH ×2 (07:34→19:13)
[2021-08-07] MEDS: PANTOPRAZOLE 40MG TABLET PO SCH (07:34)
[2021-08-07] MEDS: CRANBERRY FRUIT EXTRACT 400 MG CAP PO SCH ×2 (07:34→19:13)
[2021-08-07] MEDS: DULOXETINE 20 MG CAP PO SCH (07:35)
[2021-08-07] MEDS: AMLODIPINE 5 MG TAB PO SCH (07:35)
[2021-08-07] MEDS: ENSURE HIGH PROTEIN 237 ML CAN PO SCH ×2 (07:35→19:18)
[2021-08-07] MEDS: SODIUM CHLORIDE 0.9% 10ML INJ IV SCH ×2 (07:36→19:16)
[2021-08-07] MEDS: ZOLPIDEM TARTRATE 5 MG TABLET PO SCH (19:12)
[2021-08-08] MEDS: SODIUM CHLORIDE 0.9% 10ML INJ IV SCH ×2 (06:14→19:41)
[2021-08-08] MEDS: TRAMADOL HCL 50 MG TAB PO PRN ×2 (07:35→19:40)
[2021-08-08] MEDS: ASPIRIN 81 MG CHEWABLE TABLET PO SCH (07:35)
[2021-08-08] MEDS: VALSARTAN 160 MG TAB PO SCH (07:35)
[2021-08-08] MEDS: APIXABAN 2.5 MG TABLET PO SCH ×2 (07:35→19:40)
[2021-08-08] MEDS: AMLODIPINE 5 MG TAB PO SCH (07:35)
[2021-08-08] MEDS: CALCIUM CARB 500MG/VIT D 200 IU TAB PO SCH ×2 (07:35→19:40)
[2021-08-08] MEDS: GABAPENTIN 300 MG CAP PO SCH ×2 (07:35→19:41)
[2021-08-08] MEDS: LEVOTHYROXINE SOD 0.025 MG TAB PO SCH (07:35)
[2021-08-08] MEDS: CRANBERRY FRUIT EXTRACT 400 MG CAP PO SCH ×2 (07:35→19:40)
[2021-08-08] MEDS: DULOXETINE 20 MG CAP PO SCH (07:36)
[2021-08-08] MEDS: PRIMIDONE 50 MG TAB PO SCH ×2 (07:36→19:40)
[2021-08-08] MEDS: LIDOCAINE 4% PATCH TOP SCH (07:36)
[2021-08-08] MEDS: PANTOPRAZOLE 40MG TABLET PO SCH (07:37)
[2021-08-08] MEDS: ENSURE HIGH PROTEIN 237 ML CAN PO SCH ×2 (07:37→19:41)
[2021-08-08] MEDS: MAGNESIUM OXIDE 400 MG TAB PO SCH ×2 (07:37→19:40)
[2021-08-08] MEDS: FE SULF/FA/VIT B COMP & C TAB PO SCH (07:37)
--- NOTE | 2021-08-08 17:53 | R.PN ---
PROGRESS NOTES ENCOUNTER DATE AND TIME: 08/08/2021 17:47 (CDT) NAME JESUS JACOBS DATE OF : 1945 DATE OF ADMISSION: 07/28/2021 15:12 (CDT) SMALL BOWL ILEOSTOMYCHIEF COMPLAINT: Small Bowel ileostomy, debility, severe right shoulder arthritis SUBJECTIVE: Pt denied any depression. Pt denied any Shortness of Breath. She denies significant pain at her surgical site. Labs were reviewed and are stable. She has no new c omplaints. She is doing well with physical and occupational therapy. WBC 10.2, Hgb 10.1, Plt 523, prealbumin 22.2, Mg 2.2, Ca 8.7, UA 2+ esterase, bacteria >50, WBC 5-1 0. Cultures > 100,000 mixed ina. Started Ca and Mg. Ambulated 500' with modified independence using a rolling walker. Thanks for Dr. Ahumada follow-up note on ostomy. VITAL SIGNS Temperature: 97.7 F SBP/DBP: 120/57 Pulse: 71 Resp: 16 MEDICATION ALLERGIES: CODEINE IODINATED HYDROCODINE ENVIRONMENTAL ALLERGIES: - Substance Allergies None Known - Other Allergies None Known NURSING: - Shower allowing shower ACTIVITIES OOB only with supervision THERAPIES: - Dietary and Nutrition Adequate Nutrition. Nutritional Education. Nutritional Supplements. Evaluate and Treat. - Occupational Therapy Cognitive Retraining. Patient needs Occupational Therapy for a daily minimum of 1.5 hours at least 5 out of 7 days, to improve Activities of Daily Living, including: Eating, Grooming, Bathing, Dressing, Toileting, Toilet Transfers, Community Reintegration, Higher functional activities, Adaptive Equipme nt, Splinting, Household Tasks, and Other activities as determined. Transfer Training. Safety Awarene ss. ADL Training. Evaluate and Treat. Visual Perceptual Training. Patient/Family Education. Household Tasks. - Speech Therapy Cognitive Training. Expressive Language Skills. Memory Strategies. Patient needs Speech Therapy for a daily minimum of 1.5 hours at least 5 out of 7 days, to improve: Swallowing, Cognition, Language Ski lls, and Compensatory Strategies. Receptive Language Skills. Speech Intelligibility Training. Evaluat e and Treat. - Physical Therapy Patient needs Physical Therapy for a daily minimum of 1.5 hours at least 5 out of 7 days, to improve: Mobility, Strengthening, Transfers, Stretching, ROM, Endurance, Ability to manage stairs, Gait, and Balance. Mobility Training. Gait Training. Safety Awareness. Balance Training. Transfer Training. Adelia luate and Treat. Patient/Family Education. LE Strengthening. PHYSICAL EXAM - Gen Alert and awake Lying in bed No apparent distress Oriented to: person, time, and place - Skin No breakdown Normacephalic - Eyes No abnormalities - ENMT No abnormalities - Neck No abnormalities - CVS RRR - Chest No abnormalities - Resp No wheezing - Abd Soft - GI Non distended Deferred - No abnormalities - Ext Mild bilateral lower extremity edema. - MSK 4/5 weakness in both lower extremities. - Neuro No focal deficits - Psych Mild depression and anxiety. ASSESSMENT: Pt. is a 75 yo Right-handed female.On 07/20/2021 she was admitted to [facility] with ze gnosis SMALL BOWL ILEOSTOMY.Her impairment category is Medically Complex Conditions 17 - Medical/Karishma gical Complications (17.8).Pre-morbidly, Pt. was independent/mod-I in Locomotion, Safety Awareness, S ocial Cognition, Transfers Control, and Balance; and she had good Transfers Control, Sphincter Contro l, Self-Care, Communication, and Endurance.Currently, she has deficits of Locomotion, Safety Awarenes s, Social Cognition, Transfers Control, Balance, Sphincter Control, Self-Care, Communication, and End urance.Pt. is now referred to [facility] for acute in-patient rehabilitation i n order to maximize patient's functional independence in activities of daily living, strength, ROM, a nd mobility.- Rehab Goal Patient has realistic goal of being discharged at assistance level 7-Ind to reside at Home with Fami ly/Relatives. MDM/PLAN: - Physical Therapy Gait dysfunction - to improve, our physical therapists will perform initial evaluation of pt's statu s upon admission and devise an individualized program for Gait Training, and Wheel Chair mobility Inability to transfer - to improve, our physical therapists will perform initial evaluation of pt's status upon admission and devise an individualized program for Bed mobility Need for home safety evaluation - to improve, our physical therapists will perform initial evaluatio n of pt's status upon admission and devise an individualized program for Home Evaluation Need in caregiver upon discharge - to improve, our physical therapists will perform initial evaluati on of pt's status upon admission and devise an individualized program for Caregiver Training New precaution - to improve, our physical therapists will perform initial evaluation of pt's status upon admission and devise an individualized program for Patient precaution education Edema - to improve, our physical therapists will perform initial evaluation of pt's status upon admi ssion and devise an individualized program for Elevation Training, and Lymphedema Therapy Poor balance - to improve, our physical therapists will perform initial evaluation of pt's status up on admission and devise an individualized program for Balance Training Poor endurance - to improve, our physical therapists will perform initial evaluation of pt's status upon admission and devise an individualized program for Endurance Training Weakness - to improve, our physical therapists will perform initial evaluation of pt's status upon a dmission and devise an individualized program for Aquatic Therapy, Neuromuscular Reeducation, and Str engthening Achieving independence - to improve, our physical therapists will perform initial evaluation of pt's status upon admission and devise an individualized program for Community Reintegration Activities - Occupational Therapy ADL deficits - to improve, our occupation therapists will perform initial evaluation of pt's status upon admission and devise an individualized program for Bathing, Bed mobility, Community Reintegratio n, Cooking, Dressing, Eating, Fine Motor Skills, Grooming, Homemaking, Kitchen Mobility, Laundry, Pat ient Education, Safety Awareness, Splinting - Positioning, Transfers(Toilet, Tub, Shower), and Wheel Chair Management Cognitive deficits - to improve, our occupation therapists will perform initial evaluation of pt's s tatus upon admission and devise an individualized program for Cognition - orientation Need for rn transitional care - to improve, our occupation therapists will perform initial evaluation of pt's status upon admission and devise an individualized program for Caregiver Training Weakness - to improve, our occupation therapists will perform initial evaluation of pt's status upon admission and devise an individualized program for Aquatic Therapy, Balance, Endurance, UE ROM, and UE strengthening - Other See attached MAR (Medication Administration Record) - Diet Type Continue Regular - Diet - Liquid Texture Continue Regular - Tube Feed Continue N/A - Diet - Solid Texture Continue Regular - Shower allowing shower FUNCTIONAL STATUS: UPDATED AT WEEKLY TEAM CONFERENCE - Bladder Same accident frequency: 7-Ind - No accidents in the past 7 days - Bowel Same accident frequency: 7-Ind - No accidents in the past 7 days - Walking Same score based on distance walked: 0(N/A) Same score based on distance walked: 3(>=150ft) - Wheelchair Same score based on distance traveled: 0(N/A) FUNCTIONAL STATUS: - Self-Care A. Eating Ind B. Grooming Sandra C. Bathing Juju D. Dressing - Upper sup E. Dressing - Lower Juju F. Toileting sup - Sphincter Control G. Bladder control Sandra H. Bowel control Sandra - Transfers Control I. Bed/Chair/Wheelchair Juju J. Toilet Juju K. Tub/Shower Juju - Locomotion L. Walk/Wheelchair (B) Juju M. Stairs Juju - Communication N. Comprehension (B) Sandra O. Expression (B) Sandra - Social Cognition P. Social Interaction Sandra Q. Problem Solving Sandra R. Memory Sandra - Endurance Good - Balance Good - Safety Awareness Good QI SCORES: - Self-Care A. Eating 03-Partial/moderate assistance B. Oral hygiene 03-Partial/moderate assistance C. Toileting hygiene 03-Partial/moderate assistance E. Shower/bathe self 03-Partial/moderate assistance F. Upper body dressing 03-Partial/moderate assistance G. Lower body dressing 03-Partial/moderate assistance H. Putting on/taking off footwear 88-Not attempted due to medical condition or safety concerns - Mobility A. Roll left and right 03-Partial/moderate assistance B. Sit to lying 03-Partial/moderate assistance C. Lying to sitting on side of bed 03-Partial/moderate assistance D. Sit to stand 03-Partial/moderate assistance E. Chair/[id number] transfer 03-Partial/moderate assistance F. Toilet transfer 03-Partial/moderate assistance G. Car transfer 88-Not attempted due to medical condition or safety concerns I. Walk 10 feet 03-Partial/moderate assistance J. Walk 50 feet with two turns 03-Partial/moderate assistance K. Walk 150 feet 03-Partial/moderate assistance L. Walking 10 feet on uneven surfaces 88-Not attempted due to medical condition or safety concerns M. 1 step (curb) 88-Not attempted due to medical condition or safety concerns N. 4 steps 88-Not attempted due to medical condition or safety concerns O. 12 steps 88-Not attempted due to medical condition or safety concerns P. Picking up object 03-Partial/moderate assistance R. Wheel 50 feet with two turns 88-Not attempted due to medical condition or safety concerns S. Wheel 150 feet 88-Not attempted due to medical condition or safety concerns - Bladder and Bowel Bladder continence Bowel continence - Endurance Fair - Balance Fair - Safety Awareness Fair CURRENT [facility]. DEFICITS: Self-Care, Mobility, Endurance, Balance, and Safety Awareness SIGNATURE PANEL: (CDT)
[2021-08-08] MEDS: ZOLPIDEM TARTRATE 5 MG TABLET PO SCH (19:39)
[2021-08-09] MEDS: TRAMADOL HCL 50 MG TAB PO PRN ×3 (03:08→15:47)
[2021-08-09] MEDS: LEVOTHYROXINE SOD 0.025 MG TAB PO SCH (05:10)
[2021-08-09] MEDS: LIDOCAINE 4% PATCH TOP SCH (07:06)
[2021-08-09] MEDS: CRANBERRY FRUIT EXTRACT 400 MG CAP PO SCH ×2 (07:07→19:31)
[2021-08-09] MEDS: MAGNESIUM OXIDE 400 MG TAB PO SCH ×2 (07:07→19:31)
[2021-08-09] MEDS: VALSARTAN 160 MG TAB PO SCH (07:07)
[2021-08-09] MEDS: ASPIRIN 81 MG CHEWABLE TABLET PO SCH (07:07)
[2021-08-09] MEDS: AMLODIPINE 5 MG TAB PO SCH (07:07)
[2021-08-09] MEDS: GABAPENTIN 300 MG CAP PO SCH ×2 (07:07→19:31)
[2021-08-09] MEDS: CALCIUM CARB 500MG/VIT D 200 IU TAB PO SCH ×2 (07:07→19:31)
[2021-08-09] MEDS: ENSURE HIGH PROTEIN 237 ML CAN PO SCH ×2 (07:08→19:32)
[2021-08-09] MEDS: PANTOPRAZOLE 40MG TABLET PO SCH (07:08)
[2021-08-09] MEDS: SODIUM CHLORIDE 0.9% 10ML INJ IV SCH ×2 (07:08→19:32)
[2021-08-09] MEDS: DULOXETINE 20 MG CAP PO SCH (07:08)
[2021-08-09] MEDS: PRIMIDONE 50 MG TAB PO SCH ×2 (07:08→19:31)
[2021-08-09] MEDS: FE SULF/FA/VIT B COMP & C TAB PO SCH (07:08)
[2021-08-09] MEDS: APIXABAN 2.5 MG TABLET PO SCH ×2 (07:08→19:31)
--- NOTE | 2021-08-09 17:53 | R.PN ---
PROGRESS NOTES ENCOUNTER DATE AND TIME: 08/09/2021 17:52 (CDT) NAME JESUS JACOBS DATE OF : 1945 DATE OF ADMISSION: 07/28/2021 15:12 (CDT) SMALL BOWL ILEOSTOMYCHIEF COMPLAINT: Small Bowel ileostomy, debility, severe right shoulder arthritis SUBJECTIVE: Pt denied any depression. Pt denied any Shortness of Breath. She denies significant pain at her surgical site. Labs were reviewed and are stable. She has no new c omplaints. She is doing well with physical and occupational therapy. WBC 10.2, Hgb 10.1, Plt 523, prealbumin 22.2, Mg 2.2, Ca 8.7, UA 2+ esterase, bacteria >50, WBC 5-1 0. Cultures > 100,000 mixed ina. Started Ca and Mg. Ambulated 1000' with modified independence using a rolling walker. Thanks for Dr. Ahumada follow-up note on ostomy. VITAL SIGNS Temperature: 97.0 F SBP/DBP: 131/53 Pulse: 71 Resp: 16 MEDICATION ALLERGIES: CODEINE IODINATED HYDROCODINE ENVIRONMENTAL ALLERGIES: - Substance Allergies None Known - Other Allergies None Known NURSING: - Shower allowing shower ACTIVITIES OOB only with supervision THERAPIES: - Dietary and Nutrition Adequate Nutrition. Nutritional Education. Nutritional Supplements. Evaluate and Treat. - Occupational Therapy Cognitive Retraining. Patient needs Occupational Therapy for a daily minimum of 1.5 hours at least 5 out of 7 days, to improve Activities of Daily Living, including: Eating, Grooming, Bathing, Dressing, Toileting, Toilet Transfers, Community Reintegration, Higher functional activities, Adaptive Equipme nt, Splinting, Household Tasks, and Other activities as determined. Transfer Training. Safety Awarene ss. ADL Training. Evaluate and Treat. Visual Perceptual Training. Patient/Family Education. Household Tasks. - Speech Therapy Cognitive Training. Expressive Language Skills. Memory Strategies. Patient needs Speech Therapy for a daily minimum of 1.5 hours at least 5 out of 7 days, to improve: Swallowing, Cognition, Language Ski lls, and Compensatory Strategies. Receptive Language Skills. Speech Intelligibility Training. Evaluat e and Treat. - Physical Therapy Patient needs Physical Therapy for a daily minimum of 1.5 hours at least 5 out of 7 days, to improve: Mobility, Strengthening, Transfers, Stretching, ROM, Endurance, Ability to manage stairs, Gait, and Balance. Mobility Training. Gait Training. Safety Awareness. Balance Training. Transfer Training. Adelia luate and Treat. Patient/Family Education. LE Strengthening. PHYSICAL EXAM - Gen Alert and awake Lying in bed No apparent distress Oriented to: person, time, and place - Skin No breakdown Normacephalic - Eyes No abnormalities - ENMT No abnormalities - Neck No abnormalities - CVS RRR - Chest No abnormalities - Resp No wheezing - Abd Soft - GI Non distended Deferred - No abnormalities - Ext Mild bilateral lower extremity edema. - MSK 4/5 weakness in both lower extremities. - Neuro No focal deficits - Psych Mild depression and anxiety. ASSESSMENT: Pt. is a 75 yo Right-handed female.On 07/20/2021 she was admitted to [facility] with ze gnosis SMALL BOWL ILEOSTOMY.Her impairment category is Medically Complex Conditions 17 - Medical/Karishma gical Complications (17.8).Pre-morbidly, Pt. was independent/mod-I in Locomotion, Safety Awareness, S ocial Cognition, Transfers Control, and Balance; and she had good Transfers Control, Sphincter Contro l, Self-Care, Communication, and Endurance.Currently, she has deficits of Locomotion, Safety Awarenes s, Social Cognition, Transfers Control, Balance, Sphincter Control, Self-Care, Communication, and End urance.Pt. is now referred to [facility] for acute in-patient rehabilitation i n order to maximize patient's functional independence in activities of daily living, strength, ROM, a nd mobility.- Rehab Goal Patient has realistic goal of being discharged at assistance level 7-Ind to reside at Home with Fami ly/Relatives. MDM/PLAN: - Physical Therapy Gait dysfunction - to improve, our physical therapists will perform initial evaluation of pt's statu s upon admission and devise an individualized program for Gait Training, and Wheel Chair mobility Inability to transfer - to improve, our physical therapists will perform initial evaluation of pt's status upon admission and devise an individualized program for Bed mobility Need for home safety evaluation - to improve, our physical therapists will perform initial evaluatio n of pt's status upon admission and devise an individualized program for Home Evaluation Need in caregiver upon discharge - to improve, our physical therapists will perform initial evaluati on of pt's status upon admission and devise an individualized program for Caregiver Training New precaution - to improve, our physical therapists will perform initial evaluation of pt's status upon admission and devise an individualized program for Patient precaution education Edema - to improve, our physical therapists will perform initial evaluation of pt's status upon admi ssion and devise an individualized program for Elevation Training, and Lymphedema Therapy Poor balance - to improve, our physical therapists will perform initial evaluation of pt's status up on admission and devise an individualized program for Balance Training Poor endurance - to improve, our physical therapists will perform initial evaluation of pt's status upon admission and devise an individualized program for Endurance Training Weakness - to improve, our physical therapists will perform initial evaluation of pt's status upon a dmission and devise an individualized program for Aquatic Therapy, Neuromuscular Reeducation, and Str engthening Achieving independence - to improve, our physical therapists will perform initial evaluation of pt's status upon admission and devise an individualized program for Community Reintegration Activities - Occupational Therapy ADL deficits - to improve, our occupation therapists will perform initial evaluation of pt's status upon admission and devise an individualized program for Bathing, Bed mobility, Community Reintegratio n, Cooking, Dressing, Eating, Fine Motor Skills, Grooming, Homemaking, Kitchen Mobility, Laundry, Pat ient Education, Safety Awareness, Splinting - Positioning, Transfers(Toilet, Tub, Shower), and Wheel Chair Management Cognitive deficits - to improve, our occupation therapists will perform initial evaluation of pt's s tatus upon admission and devise an individualized program for Cognition - orientation Need for home care provider - to improve, our occupation therapists will perform initial evaluation of pt's status upon admission and devise an individualized program for Caregiver Training Weakness - to improve, our occupation therapists will perform initial evaluation of pt's status upon admission and devise an individualized program for Aquatic Therapy, Balance, Endurance, UE ROM, and UE strengthening - Other See attached MAR (Medication Administration Record) - Diet Type Continue Regular - Diet - Liquid Texture Continue Regular - Tube Feed Continue N/A - Diet - Solid Texture Continue Regular - Shower allowing shower FUNCTIONAL STATUS: UPDATED AT WEEKLY TEAM CONFERENCE - Bladder Same accident frequency: 7-Ind - No accidents in the past 7 days - Bowel Same accident frequency: 7-Ind - No accidents in the past 7 days - Walking Same score based on distance walked: 0(N/A) Same score based on distance walked: 3(>=150ft) - Wheelchair Same score based on distance traveled: 0(N/A) FUNCTIONAL STATUS: - Self-Care A. Eating Ind B. Grooming Sandra C. Bathing Juju D. Dressing - Upper sup E. Dressing - Lower Juju F. Toileting sup - Sphincter Control G. Bladder control Sandra H. Bowel control Sandra - Transfers Control I. Bed/Chair/Wheelchair Juju J. Toilet Juju K. Tub/Shower Juju - Locomotion L. Walk/Wheelchair (B) Juju M. Stairs Juju - Communication N. Comprehension (B) Sandra O. Expression (B) Sandra - Social Cognition P. Social Interaction Sandra Q. Problem Solving Sandra R. Memory Sandra - Endurance Good - Balance Good - Safety Awareness Good QI SCORES: - Self-Care A. Eating 03-Partial/moderate assistance B. Oral hygiene 03-Partial/moderate assistance C. Toileting hygiene 03-Partial/moderate assistance E. Shower/bathe self 03-Partial/moderate assistance F. Upper body dressing 03-Partial/moderate assistance G. Lower body dressing 03-Partial/moderate assistance H. Putting on/taking off footwear 88-Not attempted due to medical condition or safety concerns - Mobility A. Roll left and right 03-Partial/moderate assistance B. Sit to lying 03-Partial/moderate assistance C. Lying to sitting on side of bed 03-Partial/moderate assistance D. Sit to stand 03-Partial/moderate assistance E. Chair/[id number] transfer 03-Partial/moderate assistance F. Toilet transfer 03-Partial/moderate assistance G. Car transfer 88-Not attempted due to medical condition or safety concerns I. Walk 10 feet 03-Partial/moderate assistance J. Walk 50 feet with two turns 03-Partial/moderate assistance K. Walk 150 feet 03-Partial/moderate assistance L. Walking 10 feet on uneven surfaces 88-Not attempted due to medical condition or safety concerns M. 1 step (curb) 88-Not attempted due to medical condition or safety concerns N. 4 steps 88-Not attempted due to medical condition or safety concerns O. 12 steps 88-Not attempted due to medical condition or safety concerns P. Picking up object 03-Partial/moderate assistance R. Wheel 50 feet with two turns 88-Not attempted due to medical condition or safety concerns S. Wheel 150 feet 88-Not attempted due to medical condition or safety concerns - Bladder and Bowel Bladder continence Bowel continence - Endurance Fair - Balance Fair - Safety Awareness Fair CURRENT [facility]. DEFICITS: Self-Care, Mobility, Endurance, Balance, and Safety Awareness SIGNATURE PANEL: (CDT)
[2021-08-09] MEDS: ZOLPIDEM TARTRATE 5 MG TABLET PO SCH (19:31)
[2021-08-10] MEDS: TRAMADOL HCL 50 MG TAB PO PRN ×2 (03:41→13:06)
[2021-08-10] MEDS: LEVOTHYROXINE SOD 0.025 MG TAB PO SCH (05:08)
[2021-08-10] MEDS: GABAPENTIN 300 MG CAP PO SCH (07:15)
[2021-08-10] MEDS: VALSARTAN 160 MG TAB PO SCH (07:15)
[2021-08-10] MEDS: CRANBERRY FRUIT EXTRACT 400 MG CAP PO SCH (07:15)
[2021-08-10] MEDS: PRIMIDONE 50 MG TAB PO SCH (07:15)
[2021-08-10] MEDS: APIXABAN 2.5 MG TABLET PO SCH (07:15)
[2021-08-10] MEDS: LIDOCAINE 4% PATCH TOP SCH (07:16)
[2021-08-10] MEDS: SODIUM CHLORIDE 0.9% 10ML INJ IV SCH (07:16)
[2021-08-10] MEDS: DULOXETINE 20 MG CAP PO SCH (07:16)
[2021-08-10] MEDS: CALCIUM CARB 500MG/VIT D 200 IU TAB PO SCH (07:16)
[2021-08-10] MEDS: ASPIRIN 81 MG CHEWABLE TABLET PO SCH (07:16)
[2021-08-10] MEDS: PANTOPRAZOLE 40MG TABLET PO SCH (07:16)
[2021-08-10] MEDS: AMLODIPINE 5 MG TAB PO SCH (07:16)
[2021-08-10] MEDS: FE SULF/FA/VIT B COMP & C TAB PO SCH (07:16)
[2021-08-10] MEDS: ENSURE HIGH PROTEIN 237 ML CAN PO SCH (07:16)
[2021-08-10] MEDS: MAGNESIUM OXIDE 400 MG TAB PO SCH (07:16)
[2021-08-10 07:30] VITALS: BP 122/48; TEMP 98
--- NOTE | 2021-08-10 18:02 | R.PN ---
PROGRESS NOTES ENCOUNTER DATE AND TIME: 08/10/2021 17:59 (CDT) NAME JESUS JACOBS DATE OF : 1945 DATE OF ADMISSION: 07/28/2021 15:12 (CDT) SMALL BOWL ILEOSTOMYCHIEF COMPLAINT: Small Bowel ileostomy, debility, severe right shoulder arthritis SUBJECTIVE: Pt denied any depression. Pt denied any Shortness of Breath. She denies significant pain at her surgical site. Labs were reviewed and are stable. She has no new c omplaints. She is doing well with physical and occupational therapy. WBC 10.2, Hgb 10.1, Plt 523, prealbumin 22.2, Mg 2.2, Ca 8.7, UA 2+ esterase, bacteria >50, WBC 5-1 0. Cultures > 100,000 mixed ina. Started Ca and Mg. Ambulated 1250' with modified independence using a rolling walker. Thanks for Dr. Ahumada follow-up note on ostomy. VITAL SIGNS Temperature: 98.0 F SBP/DBP: 122/48 Pulse: 74 Resp: 16 MEDICATION ALLERGIES: CODEINE IODINATED HYDROCODINE ENVIRONMENTAL ALLERGIES: - Substance Allergies None Known - Other Allergies None Known NURSING: - Shower allowing shower ACTIVITIES OOB only with supervision THERAPIES: - Dietary and Nutrition Adequate Nutrition. Nutritional Education. Nutritional Supplements. Evaluate and Treat. - Occupational Therapy Cognitive Retraining. Patient needs Occupational Therapy for a daily minimum of 1.5 hours at least 5 out of 7 days, to improve Activities of Daily Living, including: Eating, Grooming, Bathing, Dressing, Toileting, Toilet Transfers, Community Reintegration, Higher functional activities, Adaptive Equipme nt, Splinting, Household Tasks, and Other activities as determined. Transfer Training. Safety Awarene ss. ADL Training. Evaluate and Treat. Visual Perceptual Training. Patient/Family Education. Household Tasks. - Speech Therapy Cognitive Training. Expressive Language Skills. Memory Strategies. Patient needs Speech Therapy for a daily minimum of 1.5 hours at least 5 out of 7 days, to improve: Swallowing, Cognition, Language Ski lls, and Compensatory Strategies. Receptive Language Skills. Speech Intelligibility Training. Evaluat e and Treat. - Physical Therapy Patient needs Physical Therapy for a daily minimum of 1.5 hours at least 5 out of 7 days, to improve: Mobility, Strengthening, Transfers, Stretching, ROM, Endurance, Ability to manage stairs, Gait, and Balance. Mobility Training. Gait Training. Safety Awareness. Balance Training. Transfer Training. Adelia luate and Treat. Patient/Family Education. LE Strengthening. PHYSICAL EXAM - Gen Alert and awake Lying in bed No apparent distress Oriented to: person, time, and place - Skin No breakdown Normacephalic - Eyes No abnormalities - ENMT No abnormalities - Neck No abnormalities - CVS RRR - Chest No abnormalities - Resp No wheezing - Abd Soft - GI Non distended Deferred - No abnormalities - Ext Mild bilateral lower extremity edema. - MSK 4/5 weakness in both lower extremities. - Neuro No focal deficits - Psych Mild depression and anxiety. ASSESSMENT: Pt. is a 75 yo Right-handed female.On 07/20/2021 she was admitted to [facility] with ze gnosis SMALL BOWL ILEOSTOMY.Her impairment category is Medically Complex Conditions 17 - Medical/Karishma gical Complications (17.8).Pre-morbidly, Pt. was independent/mod-I in Locomotion, Safety Awareness, S ocial Cognition, Transfers Control, and Balance; and she had good Transfers Control, Sphincter Contro l, Self-Care, Communication, and Endurance.Currently, she has deficits of Locomotion, Safety Awarenes s, Social Cognition, Transfers Control, Balance, Sphincter Control, Self-Care, Communication, and End urance.Pt. is now referred to [facility] for acute in-patient rehabilitation i n order to maximize patient's functional independence in activities of daily living, strength, ROM, a nd mobility.- Rehab Goal Patient has realistic goal of being discharged at assistance level 7-Ind to reside at Home with Fami ly/Relatives. MDM/PLAN: - Physical Therapy Gait dysfunction - to improve, our physical therapists will perform initial evaluation of pt's statu s upon admission and devise an individualized program for Gait Training, and Wheel Chair mobility Inability to transfer - to improve, our physical therapists will perform initial evaluation of pt's status upon admission and devise an individualized program for Bed mobility Need for home safety evaluation - to improve, our physical therapists will perform initial evaluatio n of pt's status upon admission and devise an individualized program for Home Evaluation Need in caregiver upon discharge - to improve, our physical therapists will perform initial evaluati on of pt's status upon admission and devise an individualized program for Caregiver Training New precaution - to improve, our physical therapists will perform initial evaluation of pt's status upon admission and devise an individualized program for Patient precaution education Edema - to improve, our physical therapists will perform initial evaluation of pt's status upon admi ssion and devise an individualized program for Elevation Training, and Lymphedema Therapy Poor balance - to improve, our physical therapists will perform initial evaluation of pt's status up on admission and devise an individualized program for Balance Training Poor endurance - to improve, our physical therapists will perform initial evaluation of pt's status upon admission and devise an individualized program for Endurance Training Weakness - to improve, our physical therapists will perform initial evaluation of pt's status upon a dmission and devise an individualized program for Aquatic Therapy, Neuromuscular Reeducation, and Str engthening Achieving independence - to improve, our physical therapists will perform initial evaluation of pt's status upon admission and devise an individualized program for Community Reintegration Activities - Occupational Therapy ADL deficits - to improve, our occupation therapists will perform initial evaluation of pt's status upon admission and devise an individualized program for Bathing, Bed mobility, Community Reintegratio n, Cooking, Dressing, Eating, Fine Motor Skills, Grooming, Homemaking, Kitchen Mobility, Laundry, Pat ient Education, Safety Awareness, Splinting - Positioning, Transfers(Toilet, Tub, Shower), and Wheel Chair Management Cognitive deficits - to improve, our occupation therapists will perform initial evaluation of pt's s tatus upon admission and devise an individualized program for Cognition - orientation Need for career and guidance counselor - to improve, our occupation therapists will perform initial evaluation of pt's status upon admission and devise an individualized program for Caregiver Training Weakness - to improve, our occupation therapists will perform initial evaluation of pt's status upon admission and devise an individualized program for Aquatic Therapy, Balance, Endurance, UE ROM, and UE strengthening - Other See attached MAR (Medication Administration Record) - Diet Type Continue Regular - Diet - Liquid Texture Continue Regular - Tube Feed Continue N/A - Diet - Solid Texture Continue Regular - Shower allowing shower FUNCTIONAL STATUS: UPDATED AT WEEKLY TEAM CONFERENCE - Bladder Same accident frequency: 7-Ind - No accidents in the past 7 days - Bowel Same accident frequency: 7-Ind - No accidents in the past 7 days - Walking Same score based on distance walked: 0(N/A) Same score based on distance walked: 3(>=150ft) - Wheelchair Same score based on distance traveled: 0(N/A) FUNCTIONAL STATUS: - Self-Care A. Eating Ind B. Grooming Sandra C. Bathing uJju D. Dressing - Upper sup E. Dressing - Lower Juju F. Toileting sup - Sphincter Control G. Bladder control Sandra H. Bowel control Sandra - Transfers Control I. Bed/Chair/Wheelchair Juju J. Toilet Juju K. Tub/Shower Juju - Locomotion L. Walk/Wheelchair (B) Juju M. Stairs Juju - Communication N. Comprehension (B) Sandra O. Expression (B) Sandra - Social Cognition P. Social Interaction Sandra Q. Problem Solving Sandra R. Memory Sandra - Endurance Good - Balance Good - Safety Awareness Good QI SCORES: - Self-Care A. Eating 03-Partial/moderate assistance B. Oral hygiene 03-Partial/moderate assistance C. Toileting hygiene 03-Partial/moderate assistance E. Shower/bathe self 03-Partial/moderate assistance F. Upper body dressing 03-Partial/moderate assistance G. Lower body dressing 03-Partial/moderate assistance H. Putting on/taking off footwear 88-Not attempted due to medical condition or safety concerns - Mobility A. Roll left and right 03-Partial/moderate assistance B. Sit to lying 03-Partial/moderate assistance C. Lying to sitting on side of bed 03-Partial/moderate assistance D. Sit to stand 03-Partial/moderate assistance E. Chair/[id number] transfer 03-Partial/moderate assistance F. Toilet transfer 03-Partial/moderate assistance G. Car transfer 88-Not attempted due to medical condition or safety concerns I. Walk 10 feet 03-Partial/moderate assistance J. Walk 50 feet with two turns 03-Partial/moderate assistance K. Walk 150 feet 03-Partial/moderate assistance L. Walking 10 feet on uneven surfaces 88-Not attempted due to medical condition or safety concerns M. 1 step (curb) 88-Not attempted due to medical condition or safety concerns N. 4 steps 88-Not attempted due to medical condition or safety concerns O. 12 steps 88-Not attempted due to medical condition or safety concerns P. Picking up object 03-Partial/moderate assistance R. Wheel 50 feet with two turns 88-Not attempted due to medical condition or safety concerns S. Wheel 150 feet 88-Not attempted due to medical condition or safety concerns - Bladder and Bowel Bladder continence Bowel continence - Endurance Fair - Balance Fair - Safety Awareness Fair CURRENT [facility]. DEFICITS: Self-Care, Mobility, Endurance, Balance, and Safety Awareness SIGNATURE PANEL: (CDT)
== END 2021-08-10 14:40 | disposition home health service (06) | DRG 950 ==
LOC: 5TH 15:12
PROVIDERS: ADMIT Psychiatry & Neurology Neurology with Special Qualifications in Child Neurology; ATTEND Psychiatry & Neurology Neurology with Special Qualifications in Child Neurology
DX: Z48.815 Encounter for surgical aftercare following surgery on the digestive system (principal); I10 Essential (primary) hypertension; K21.9 Gastro-esophageal reflux disease without esophagitis; M19.012 Primary osteoarthritis, left shoulder; R53.81 Other malaise; Z88.5 Allergy status to narcotic agent; Z95.0 Presence of cardiac pacemaker; Z91.048 Other nonmedicinal substance allergy status; Z85.038 Personal history of other malignant neoplasm of large intestine; Z20.822 Contact with and (suspected) exposure to COVID-19
CPT/HCPCS: 36415; 80048; 81001; 82040; 83735; 84134; 85025; 85049; 87086; 87088; 92523; 97110; 97116; 97161; 97530; 97542; 99251; J0702; J2997; U0003

== ENCOUNTER 2022-06-19 21:53 | Emergency (ER) | payer OTHER ==
--- OUTSIDE RECORDS SUMMARY | 2022-06-19 22:36 | XMS REPORT | Continuity of Care Document ---
:1945 Author Organization [facility] t Address [address] [place] [address] Care Team Providers Name Role Phone Madison Maher Primary Care Physician Jaime Harvey Attending Clinician Unavailable ALLISON DANIELS Attending Clinician Unavailable Bebeto Ramires Attending Clinician Hernán Ford Attending Clinician Unavailable Ephraim Pearce Attending Clinician Unavailable UNKNOWN Attending Clinician Unavailable Jaime Harvey MD Attending Clinician Seth Wiseman Attending Clinician Lakshmi Martinez Attending Clinician + [phone] SETH CHAUDHARY Attending Clinician Unavailable Suzette Gould Attending Clinician Unavailable BEBETO RAMIRES Attending Clinician Unavailable Reyes Childress MD Attending Clinician SAMEER WILLIS Attending Clinician Unavailable ERMA CARABALLO Attending Clinician Unavailable NSAIR MEJIA Attending Clinician Unavailable ELISA ANDRADE Attending Clinician Unavailable Ole Valverde Attending Clinician OLE VALVERDE M.D. Attending Clinician Unavailable JUAN BERMEO M.D. Attending Clinician Unavailable Yazmin Salcedo Attending Clinician Braxton Daniels Attending Clinician Robert Mcmahan Attending Clinician ROBERT MCMAHAN M.D. Attending Clinician Unavailable Cassy Hodges Attending Clinician Henry Crump Attending Clinician Juan Bermeo Attending Clinician Zeb Musa Attending Clinician Chase Swartz Attending Clinician Bindu Hughes Attending Clinician Hernán Ford Admitting Clinician Unavailable ALLISON DANIELS Admitting Clinician Unavailable Ephraim Pearce Admitting Clinician Unavailable Jaime Harvey Admitting Clinician Unavailable UNDEFINED Admitting Clinician Unavailable Suzette Gould Admitting Clinician Unavailable ERMA CARABALLO Admitting Clinician Unavailable Yazmin Salcedo Admitting Clinician Braxton Daniels Admitting Clinician Cassy Hodges Admitting Clinician Henry Crump Admitting Clinician Ole Valverde Admitting Clinician Payers Payer Name Policy Type Policy Number Effective Date Expiration Date Yesica moncada MEDICARE PART A [id number] 2008 \\T\\ B 00:00:00 [employer] [facility] [id number] 2019 [place] 00:00:00 [employer]ARE [id number] 2019 2019 00:00:00 00:00:00 Problems Condition Condition Condition Status Onset Resolution Last Treating Co mments Source Name Details Category Date Date Treatment Clinician Date TREMOR TREMOR Diagnosis Active 2020-08-17 Me moria Active 07-26 10:47:00 l 07/26/2020 00:00: Obi millard [address] DX: DX: Diagnosis Active 2019-05-20 Mem oria R10.12=LEF R10.12=LEF 05-16 08:51:00 l T UPPER T UPPER 00:00: [place] QUADRANT QUADRANT 00 PAIN/R13. PAIN/R13. Active 05/16/2019 [facility] UNK UNK Diagnosis Active 2018-052019-04-08 Mem oria Active 05-20 10:20:00 l 03/20/2019 00:00: Obi millard 00 [facility] DX: DX: Diagnosis Active 2018-052019-04-07 Mem oria R13.10=DYS R13.10=DYS 05-20 10:27:00 l PHAGIA, PHAGIA, 00:00: [place] UNSPECIFIE UNSPECIFIE 00 D/K21.9= D/K21.9= Active 03/20/2019 [facility] DX: OTHER DX: OTHER Diagnosis Active 2018-10-23 Memoria ABNORMAL ABNORMAL 10-08 14:23:00 l AND AND 00:00: [place] INCONCLUSI INCONCLUSI 00 VE FIND VE FIND Active 10/08/2018 [facility] XRAY XRAY Diagnosis Active 2017-11-29 Mem oria Active 11-29 10:58:00 l 11/29/2017 10:54: Obi millard 00 [facility] GASTROGAST GASTROGAS Diagnosis Active 2017-11-22 Memoria NOA TRIC 11-20 08:52:00 l FISTULA FISTULA 00:00: Rocky Active 00 11/20/2017 [facility] M25.561/Z9 M25.561/Z Diagnosis Active 2017-08-01 Memoria 6.651 96.651 08-01 12:42:00 l Active 12:42: Rocky 08/01/2017 00 [facility] SCREENING SCREENING Diagnosis Active 2017-07-10 Memoria Active 06-13 12:01:00 l 06/13/2017 00:00: Obi millard 00 [facility] DX: DX: Diagnosis Active 2017-05-21 Mem oria M81.0=AGE- M81.0=AGE- 1-04 11:14:00 l RELATED RELATED 00:00: [place] OSTEOPOROS OSTEOPOROS 00 IS WITHO IS WITHO Active 05/17/2017 [facility] M17.11 M17.11 Diagnosis Active 2017-03-07 Me moria Active 02-02 21:55:00 l 02/02/2017 00:00: Obi millard [address] K31.9 K31.9 Diagnosis Active 2016-06-22 Mem oria DISEASE OF DISEASE OF 06-19 06:56:00 l STOMACH STOMACH 00:00: Rocky AND AND 00 DUODENUM, DUODENUM, U U Active 06/19/2016 [facility] R13.10 R13.10 Diagnosis Active 2016-06-26 Me moria Active 06-14 17:22:00 l 06/14/2016 00:00: Obi millard 00 [facility] SCREENING SCREENING Diagnosis Active 2015-052016-04-03 Memoria MAMMGORAM MAMMGORAM 12:43:00 l Active 00:00: [place] 03/06/2016 00 [facility] R05 R05 Diagnosis Active 2015-07-27 Mem oria Active 07-26 10:51:00 l 07/27/2015 10:50: Obi millard 00 [facility] DEHYDRATIO Diagnosis Active 2015-07-07 Joseoria N DEHYDRATIO 07-06 09:31:00 l N Active 00:00: [place] 07/06/2015 00 [facility] CHEST , CHEST , Diagnosis Active 2015-07-07 Memoria ABDOMINAL ABDOMINAL 06-30 09:41:00 l MASSORA MASSORA 00:00: He rmann L L 00 ONLYPT ONLYPT Active 06/30/2015 [facility] 599.0 599.0 Diagnosis Active 2014-09-08 Mem oria ACUTE ACUTE 08-19 15:21:00 l LOWER UTI LOWER UTI 00:00: Herm steph Active 00 08/19/2014 [facility] ICD 787.20 ICD Diagnosis Active 2014-08-20 Memoria 530.3 / 787.20 08-04 06:44:00 l CPT 51071 530.3 / 00:00: Obi millard CPT 04194 00 Active 08/04/2014 [facility] ICD 787.20 ICD Diagnosis Active 2013-052014-05-25 Memoria 530.3 / 787.20 06-29 21:55:00 l CPT 52050 530.3 / 00:00: Obi millard CPT 92849 00 Active 04/28/2014 [facility] 789.06/787 789.06/78 Diagnosis Active 2013-052014-05-12 Memoria .20 7.20 06-07 05:32:00 l Active 00:00: [place] 04/07/2014 00 [facility] [id number] Diagnosis Active 2013-052014-05-18 Mem oria 89373 31002 06-07 19:39:00 l Active 00:00: [place] 04/07/2014 00 [facility] DYSPHAGIA DYSPHAGIA Diagnosis Active 2013-052014-04-13 Memoria / HITAL / HITAL 06-03 10:23:00 l HERNIA / HERNIA / 00:00: Obi millard GERD GERD 00 Active 04/03/2014 [facility] SEVERE SEVERE Diagnosis Active 2013-07-09 M emoria HEADACHE HEADACHE 07-09 11:17:00 l Active 00:00: [place] 07/09/2013 00 [facility] 724.4 / 724.4 / Diagnosis Active 2013-07-07 Memoria 723.4 723.4 07-02 08:22:00 l Active 00:00: [place] 07/02/2013 00 [facility] 793.80 793.80 Diagnosis Active 2013-07-02 Me moria ABNORMAL ABNORMAL 06-03 16:22:00 l MAMMOGRAM MAMMOGRAM 00:00: Herm steph Active 00 06/03/2013 [facility] GE GE Diagnosis Active 2012-12-27 Mem oria JUNCTION JUNCTION 12-24 16:27:00 l MASS MASS 00:00: [place] Active 00 12/24/2012 [facility] 686.50,793 686.50,79 Diagnosis Active 2012-12-26 Memoria .80, 3.80, - 15:44:00 l ABNORMAL ABNORMAL 00:00: Obi millard MAMMOGRAM MAMMOGRAM 00 Active 12/05/2012 [facility] Dehydratio Dehydrati Problem Active 2012-12-29 Memoria n on Active 02-03 21:27:52 l 02/03/2010 00:00: Obi n Problem 00 12/29/2012 [facility] Weakness Weakness Problem Active 2012-12-29 Memoria Active 02-03 21:27:52 l 02/03/2010 00:00: Obi n Problem 00 12/29/2012 [facility] Dehydratio Dehydrati Problem Active 2022-05-06 Memoria n on 02-03 00:01:58 l (disorder) (disorder) 00:00: He rmann Active 00 02/03/2010 Problem 05/06/2022 [facility] Asthenia Asthenia Problem Active 2022-05-06 Memoria (finding) (finding) 02-03 00:01:58 l Active 00:00: [place] 02/03/2010 00 Problem 05/06/2022 [facility] White 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 ia blood cell 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-21 02:02:34 l disorder disorder 00:00: Obi millard (disorder) (disorder) 00 Active 01/21/2010 Problem 07/12/2013 [facility] Leukocytos Problem Active 2012-12-29 M emoria is Leukocytos 01-21 21:27:52 l is Active 00:00: [place] 01/21/2010 00 Problem 12/29/2012 [facility] Leukocytos Leukocyto Problem Active 2015-01-01 Memoria is(Confirm sis(Confir 01-21 02:07:09 l ed) med) 00:00: [place] Active 00 01/21/2010 Problem 01/01/2015 [facility] Hiatal Hiatal Problem Active 2012-12-29 Jhonathan jaime hernia hernia 01-18 21:27:52 l Active 00:00: [place] 01/18/2010 00 Problem 12/29/2012 [facility] Lloyd Lloyd Problem Active 2012-12-29 Jhonathan jaime fundoplica fundoplica 01-13 21:27:52 l tion tion 00:00: [place] Active 00 01/13/2010 Problem 12/29/2012 [facility] Lloyd Lloyd Problem Active 2022-05-06 Jhonathan jaime fundoplica fundoplica 01-13 00:01:58 l tion tion 00:00: [place] (procedure (procedure 00 ) ) Active 01/13/2010 Problem 05/06/2022 [facility] Chest pain Chest Problem Active 2012-12-29 M emoria pain 8-05 21:27:52 l Active 00:00: [place] 12/16/2009 00 Problem 12/29/2012 [facility] Chest pain Chest Problem Active 2022-05-06 M emoria (finding) pain 8-05 00:01:58 l (finding) 00:00: [place] Active 00 12/16/2009 Problem 05/06/2022 [facility] History of History of Problem Resolve [place] Abdominal Abdominal d Phys ici pain, pain, ans epigastric epigastric History of History of Problem Resolve UT esophageal esophageal d Ph ysici reflux reflux ans History of History of Problem Resolve [place] essential essential d Phys ici hypertensi hypertensi an s on on History of History of Problem Resolve [place] heartburn heartburn d Phys ici ans History of History of Problem Resolve [place] Herniated Herniated d Phys ici nucleus nucleus ans pulposus, pulposus, L4-5 L4-5 History of History of Problem Resolve UT hiatal hiatal d Physici hernia hernia ans History of History of Problem Resolve [place] Sick sinus Sick sinus d Ph ysici syndrome syndrome ans History of History of Problem Resolve [facility] Gastrocuta Gastrocuta d Ph ysici neous neous ans fistula fistula History of History of Problem Resolve UT nausea nausea d Physici ans History of History of Problem Resolve [facility] gastroesop gastroesop d Ph ysici hageal hageal ans reflux reflux (GERD) (GERD) History of History of Problem Resolve UT odynophagi odynophagi d Ph ysici a a ans History of History of Problem Resolve UT Regurgitat Regurgitat d Ph ysici ion ion ans Left upper Left upper Problem Active U T quadrant quadrant Physic i pain pain ans Cardiac Cardiac Problem Active 2017-05-24 Ma brayan pacemaker, pacemaker, 03:08:56 l device device [place] (physical (physical object) object) Active Problem 05/24/2017 [facility] CA - CA - Problem Active 2012-12-29 Memor ia Cancer of Cancer of 21:27:52 l colon colon [place] Active Problem 12/29/2012 [facility] Cardiac Cardiac Problem Active 2012-12-29 Ma brayan pacemaker, pacemaker, 21:27:52 l device device [place] Active Problem 12/29/2012 [facility] GERD - GERD - Problem Active 2012-12-29 Mem oria Gastro-eso Gastro-eso 21:27:52 l phageal phageal [place] reflux reflux disease disease Active Problem 12/29/2012 [facility] HTN - HTN - Problem Active 2012-12-29 Memor ia Hypertensi Hypertensi 21:27:52 l on on Active Obi n Problem 12/29/2012 [facility] LEFT UPPER LEFT Diagnosis Active 2019-05-20 Memoria QUADRANT UPPER 08:51:00 l PAIN QUADRANT [place] PAIN Active [facility] DYSPHAGIA, Diagnosis Active 2019-05-20 Memoria UNSPECIFIE DYSPHAGIA, 08:51:00 l D UNSPECIFIE Obi n D Active [facility] TREMOR, TREMOR, Diagnosis Active 2020-08-17 Memoria UNSPECIFIE UNSPECIFIE 10:47:00 l D D Active [place] [facility] ABL ABL Diagnosis Active 2013-07-02 Mem oria MAMMOGRAM MAMMOGRAM 16:22:00 l NOS NOS Active Obi n [facility] OTHER OTHER Diagnosis Active 2012-12-27 Mem oria DSRDERS DSRDERS 16:27:00 l ESOPHAGUS ESOPHAGUS Herm steph Active [facility] ORDONEZ'S ORDONEZ'S Diagnosis Active 2012-12-23 Memoria ESOPHAGUS ESOPHAGUS 06:09:00 l Active Obi n [facility] LUMBOSACRA LUMBOSACR Diagnosis Active 2013-07-07 Memoria L NEURITIS AL 08:22:00 l NOS NEURITIS [place] NOS Active [facility] BRACHIAL BRACHIAL Diagnosis Active 2013-07-07 Memoria NEURITIS NEURITIS 08:22:00 l NOS NOS Active Obi n [facility] ESOPHAGEAL Diagnosis Active 2014-04-08 Memoria REFLUX ESOPHAGEAL 10:27:00 l REFLUX [place] Active [facility] DYSPHAGIA DYSPHAGIA Diagnosis Active 2014-08-20 Memoria NOS NOS Active 06:44:00 l [place] [facility] ABDMNAL ABDMNAL Diagnosis Active 2014-05-12 Memoria PAIN PAIN 05:32:00 l EPIGASTRIC EPIGASTRIC He rmann Active [facility] ABDMNAL ABDMNAL Diagnosis Active 2014-05-18 Memoria MASS MASS 19:39:00 l GENERALIZE GENERALIZE He rmann D D Active [facility] ESOPHAGEAL ESOPHAGEA Diagnosis Active 2014-08-20 Memoria STRICTURE L 06:44:00 l STRICTURE [place] Active [facility] 787.20 787.20 Diagnosis Active 2014-06-03 Me moria Active 11:27:00 l [place] URIN TRACT URIN Diagnosis Active 2014-09-08 Memoria INFECTION TRACT 15:21:00 l NOS INFECTION [place] NOS Active [facility] DIAPHRAGMA DIAPHRAGM Diagnosis Active 2015-06-30 Memoria TIC HERNIA ATIC 13:22:00 l WITHOUT HERNIA [place] OBSTRUCTIO WITHOUT N OBSTRUCTIO N Active [facility] LOCALIZED LOCALIZED Diagnosis Active 2015-07-07 Memoria SWELLING, SWELLING, 09:41:00 l MASS AND MASS AND Obi n LUMP, LUMP, TRUNK TRUNK Active [facility] GENERALIZE GENERALIZ Diagnosis Active 2015-07-07 Memoria D ED 09:41:00 l INTRA-ABD INTRA-ABD Herm steph AND PELVIC AND PELVIC SWELLIN SWELLIN Active [facility] ESOPHAGEAL ESOPHAGEA Diagnosis Active 2015-07-06 Memoria OBSTRUCTIO L 13:20:00 l N OBSTRUCTIO Obi n N Active [facility] COUGH COUGH Diagnosis Active 2015-07-27 Mem oria Active 10:51:00 l [facility] [place] ANAL SPASM ANAL Diagnosis Active 2016-02-15 Memoria SPASM 07:37:00 l Active [facility] GASTRO-ESO GASTRO-ES Diagnosis Active 2016-06-26 Memoria PHAGEAL OPHAGEAL 17:22:00 l REFLUX REFLUX [place] DISEASE DISEASE WITHOUT WITHOUT Active [facility] ENCNTR ENCNTR Diagnosis Active 2017-07-10 Ma moria SCREEN SCREEN 12:01:00 l MAMMOGRAM MAMMOGRAM Herm steph FOR FOR MALIGNANT MALIGNANT NE NE Active [facility] DISEASE OF DISEASE Diagnosis Active 2016-06-22 Memoria STOMACH OF STOMACH 06:56:00 l AND AND [place] DUODENUM, DUODENUM, UNSPECI UNSPECI Active [facility] FISTULA OF FISTULA Diagnosis Active 2016-08-23 Memoria STOMACH OF STOMACH 10:47:00 l AND AND [place] DUODENUM DUODENUM Active [facility] UNILATERAL UNILATERA Diagnosis Active 2017-03-07 Memoria PRIMARY L PRIMARY 21:55:00 l OSTEOARTHR OSTEOARTHR He rmann ITIS, ITIS, RIGHT RIGHT Active [facility] AGE-RELATE AGE-RELAT Diagnosis Active 2017-05-21 Memoria D ED 11:14:00 l OSTEOPOROS OSTEOPOROS He rmann IS W/O IS W/O CURRENT CURRENT PAT PAT Active [facility] PAIN IN PAIN IN Diagnosis Active 2017-08-01 Memoria RIGHT KNEE RIGHT KNEE 12:42:00 l Active [facility] PRESENCE PRESENCE Diagnosis Active 2017-08-01 Memoria OF RIGHT OF RIGHT 12:42:00 l ARTIFICIAL ARTIFICIAL He rmann KNEE JOINT KNEE JOINT Active [facility] OTHER OTHER Diagnosis Active 2017-11-29 Mem oria CHEST PAIN CHEST PAIN 10:58:00 l Active Obi n [facility] Presence Presence Problem 2017-11-07 Memoria of right of right 16:05:01 l artificial artificial He rmann knee joint knee joint 11/07/2017 [facility] Other Other Problem 2017-08-27 Memor ia specified specified 22:14:42 l disorders disorders Herm steph of bone of bone density density and and structure, structure, other site other site 08/27/2017 [facility] Final: Final: Problem 2016-03-31 Jhonathan jaime Encounter Encounter 01:34:27 l for for [place] screening screening mammogram mammogram for for malignant malignant neoplasm neoplasm of breast of breast 03/31/2016 [facility] Cancer of Cancer of Problem Resolve 2012-12-29 Memoria colon colon d 21:27:52 l Resolved [place] Problem 12/29/2012 [facility] Hypertensi Hypertens Problem Resolve 2012-12-29 Memoria on ion d 21:27:52 l Resolved [place] Problem 12/29/2012 [facility] Acid Acid Problem Resolve 2021-11-04 Jhonathan jaime reflux reflux d 04:32:23 l (finding) (finding) Herm steph [facility]'s Ordonez's Problem Resolve 2021-11-04 Memoria esophagus esophagus d 04:32:23 l (disorder) (disorder) He rmann Resolved Problem [facility]/04[facility]2021 [facility]ysphagia Dysphagia Problem Resolve 2021-11-04 Memoria (disorder) (disorder) d 04:32:23 l Resolved [place] Problem 11/04/2021 [facility] History of History Problem Resolve 2021-11-04 Memoria sick sinus of sick d 04:32:23 l syndrome sinus [place] (situation syndrome ) (situation ) Resolved Problem 11/04/2021 [facility] No known No known Disease Unive rs active active ity of problems problems [facility] Left sided Left sided Problem Active C ommon sciatica sciatica Spirit - [facility] Backache Backache Problem Active 2022-05-06 Memoria (finding) (finding) 00:01:58 l Active [place] Problem 05/06/2022 [facility] Malignant Malignant Problem Active 2022-05-06 Memoria tumor of tumor of 00:01:58 l colon colon [place] (disorder) (disorder) Active Problem 05/06/2022 [facility] Cardiac Cardiac Problem Active 2022-05-06 Me moria pacemaker pacemaker 00:01:58 l in situ in situ [place] (finding) (finding) Active Problem 05/06/2022 [facility] Fistula Fistula Problem Active 2022-05-06 Me moria (disorder) (disorder) 00:01:58 l Active [place] Problem 05/06/2022 esophagea l gastric [facility] Gastroesop Gastroeso Problem Active 2022-05-06 Memoria hageal phageal 00:01:58 l reflux reflux [place] disease disease (disorder) (disorder) Active Problem 05/06/2022 [facility] Headache Headache Problem Active 2022-05-06 Memoria (finding) (finding) 00:01:58 l Active [place] Problem 05/06/2022 [facility] Hearing Hearing Problem Active 2022-05-06 M emoria loss loss 00:01:58 l (finding) (finding) Herm steph Active Problem 05/06/2022 [facility] Hypertensi Problem Active 2022-05-06 M emoria ve Hypertensi 00:01:58 l disorder, ve [place] systemic disorder, arterial systemic (disorder) arterial (disorder) Active Problem 05/06/2022 [facility] Hyperchole Hyperchol Problem Active 2022-05-06 Memoria sterolemia esterolemi 00:01:58 l (disorder) a Obi n (disorder) Active Problem 05/06/2022 [facility] On On Problem Active 2022-05-06 Memor ia examinatio examinatio 00:01:58 l n - n - [place] spasm/tic spasm/tic (context-d (context-d ependent ependent category) category) Active Problem 05/06/2022 of colon [facility] Osteoarthr Osteoarth Problem Active 2022-05-06 Memoria itis ritis 00:01:58 l (disorder) (disorder) He rmann Active Problem 05/06/2022 bilateral knees [facility] Tremor Tremor Problem Active 2022-05-06 Jhonathan jaime (finding) (finding) 00:01:58 l Active [place] Problem 05/06/2022 [facility] Essential Problem Active 2022-05-06 Me moria tremor Essential 00:01:58 l (disorder) tremor Obi n (disorder) Active Problem 05/06/2022 [facility] Final: Final: Problem 2015-01-01 Jhonathan jaime Other Other 02:07:09 l Screening Screening Herm steph Mammogram Mammogram 01/01/2015 [facility] Right Right Problem Active Common sided sided Spirit sciatica sciatica - [facility] Presence Presence Problem Active Commo n of total of total Spirit right knee right knee - [facility] joint joint [facility] Pain, Pain, Diagnosis Active Common joint, joint, Spirit shoulder, shoulder, - [facility] I left left [facility] Pain, Pain, Diagnosis Active Common joint, joint, Spirit shoulder, shoulder, - [facility] I right right [facility] Impingemen Impingemen Diagnosis Active Common t syndrome t syndrome Sp judi of right of right - [facility] shoulder shoulder [facility] Impingemen Impingemen Diagnosis Active Common t syndrome t syndrome Sp judi of left of left - [facility] shoulder shoulder [facility] Unilateral Unilateral Problem Active C ommon primary primary Spirit osteoarthr osteoarthr - [facility] itis, left itis, left St knee knee [facility] Pain, Pain, Problem Active Common joint, joint, Spirit knee, left knee, left - [facility] Pain in Pain in Diagnosis Active Commo n joint of joint of Spirit left wrist left wrist - [facility] Leukocytos Leukocyto Problem Resolve 2021-11-04 2021-11-04 Memoria is(Confirm sis(Confir d 01-21 04:32:23 04:32:23 l ed) med) 00:00: [place] Resolved 00 01/21/2010 Problem 11/04/2021 [facility] Diaphragma Diaphragm Problem Resolve 2021-11-04 2021-11-04 Memoria tic hernia atic d 01-18 04:32:23 04:32:23 l (disorder) hernia 00:00: Obi millard (disorder) 00 Resolved 01/18/2010 Problem 11/04/2021 [facility] History of Past Illness Condition Condition Condition Status Onset Resolution Last Treating Co mments Source Name Details Category Date Date Treatment Clinician Date Other Other Problem 2018-06-18 2018-06-18 M emoria chest pain chest pain 12-05 16:03:53 16:03:53 l 03:22: Obi millrad 8 39 06/18/2018 [facility] Pain in Pain in Problem 2017-11-07 2017-11-07 Memoria right knee right knee 08-08 16:05:01 16:05:01 l 03:16: Obi millard 8 49 11/07/2017 [facility] Encounter Encounter Problem 2017-10-16 2017-10-16 Memoria for for 07-17 11:59:21 11:59:21 l screening screening 04:15: Herm steph mammogram mammogram 43 for for malignant malignant neoplasm neoplasm of breast of breast 07/17/2017 10/16/2017 [facility] Age-relate Age-relat Problem 2017-08-27 2017-08-27 Memoria d ed 1-12 22:14:42 22:14:42 l osteoporos osteoporos 04:24: He rmann is without is without 42 current current pathologic pathologic al al fracture fracture 05/25/2017 8 [facility] Discharge Discharge Problem 2013-07-12 2013-07-12 Memoria Diagnosis: Diagnosis: 2-26 02:02:34 02:02:34 l Spinal Spinal 06:00: [place] headache headache 00 07/09/2013 07/12/2013 [facility] Discharge Discharge Problem 2013-07-12 2013-07-12 Memoria Diagnosis: Diagnosis: 2- 02:02:34 02:02:34 l Spinal Spinal 06:00: [place] Blood Blood 00 Patch Patch 07/09/2013 07/12/2013 [facility] Allergies, Adverse Reactions, Alerts Allergy Allergy Status Severity Reaction(s) Onset Inactive Treating Comm ents Source Name Type Date Date Clinician iodine DA Active [place] rash/ heat 2021-05 [facility] and extreme 1-10 [place] itching 00:00: Health 00 are [facility] Iodinate DA Active U SEVER 2021-05 [facility] d ITCHING 1-10 [facility] Contrast 00:00: Healthc Media 00 are [facility] iodine DA Active U RASH ITCHING 2021-05 [place] ers 0-27 tone 00:00: Special 00 ty [facility] contrast DA Active MO rash itching 2021-05 Co [facility]ners dye 0-27 tone 00:00: Special 00 ty [facility] CONTRAST DA Active SV RASH,ITCHING 2021-05 [facility] A DYE 0-12 [place] 00:00: Healthc 00 are [facility] No Known DA Active U [facility] Allergie 8-24 Joya s 00:00: Healthc 00 are [facility] No Known DA Active [place] Allergie 8-24 tone s 00:00: Special 00 ty [facility] Hydrocod Propensi Active GI 2019- Nausea, Metho di one-Acet ty to Intolerance 1-20 vomiting s t aminophe adverse 00:00: Hospita n reaction 00 l s to drug Iodinate Propensi Active Swelling Meth george d ty to 1-20 st Contrast adverse 00:00: Hospita Media reaction 00 l s to drug Hydrocod Propensi Active Unknown - Other Uni vers one-Acet ty to See comments 805 reaction( ity of aminophe adverse 00:00: s): GI [place] n reaction 00 intoleran Medic al s ce, GI Branch Intoleran ce, Other (see comments) Nausea, vomitingN ausea, vomiting Iodinate Propensi Active Swelling Other Univ ers d ty to 805 reaction( ity of Contrast adverse 00:00: s): [place] reaction 00 (see Medical s comments) Branch HYDROCOD DRUG Active Unknown-Cmnt Un kvng ONE-ACET 8-05 ity of AMINOPHE 00:00: [place] N 00 Medical Branch IODINATE Drug Active Unknown-Cmnt Un kvng D Class 8-05 ity of CONTRAST 00:00: [place] MEDIA 00 Medical Branch Acetamin Propensi Active Other - See 2017-05 U nivers ophen-Co ty to comments 06-12 ity of deine adverse 00:00: [place] reaction 00 Medical s Branch ACETAMIN DRUG Active Med Other-Cmnt 2017-05 Univ ers OPHEN-CO 30 ity of DEINE 00:00: [place] 00 Medical Branch Contrast drug Active [facility] allergy Physici Ready-Fabian ans x MISC Iodex drug Active [facility] OINT allergy Physici ans Iodinate drug Active [facility] d allergy Physici Contrast ans Media Vicodin drug Active UT TABS allergy Physici ans Iodine allergy Active UT to Physici substanc ans e Vicodin Adverse Active Info Not Common Reaction Available [facility] contrast Adverse Active Info Not Commo n dye Reaction Available [facility] iodinate iodinate Active Memori a d d l radiocon radiocon Obi n trast trast dyes dyes Vicodin Vicodin Active Kd [place] Family History Family Member Diagnosis Comments Start Date Stop Date Source Father Family history of [facility] Natural brother Heart attack [facility] brother Cancer [facility] Natural brother Diabetes [facility] Natural father Cancer [facility] Natural mother Diabetes [facility] Natural mother Stroke [facility] Natural sister Cancer [facility] Natural sister Stroke [facility] Social History Social Habit Start Date Stop Date Quantity Comments Source History SD[facility] Drinks History SDRI [facility] Social History 2022-04-18 2022-04-18 Fabiano luke 17:06:32 17:06:32 Exposure to 2021-12-12 2021-12-22 Not [facility] SARS-CoV-2 00:00:00 14:38:00 [facility] (event) Branch Tobacco use and 2021-12-22 2021-12-22 Smokeless tobacco Un iversity of exposure 00:00:00 00:00:00 non-user [facility] Alcohol intake 2020-01-01 2020-01-01 Lifetime [facility] 00[facility]00:[facility] 00:00:00 non-drinker Hospital (finding) History SDOH 2020-01-01 2020-01-01 1 [facility] Frequency 00:00:00 00:00:00 Hospita l Social History 2014-04-27 2014-04-27 [facility] 21:45:00 21:45:00 Smoking Status Start Date Stop Date Source Tobacco smoking status [facility] Medications Ordered Filled Start Stop Current Ordering Indication Dosage Frequency Signature Comments Components Source Medication Medication Date Date Medication? Clinician (SIG) Name Name MELOXICAM Yes [id number] TAKE 1 Un kvng 7.5 mg 9-20 TABLET ONE ity of tablet 00:00: TIME DAILY [place] [id number] NEEDED Medical FOR PAIN Branch (SCALE 4 TO 6) methylPREDN 2021-0 2021- No 32mg QD Take 1 Met hodi ISolone 9-15 09-18 tablet (32 st (MEDROL) 32 00:00: 04:59 mg total) Hospita MG tablet 00 :00 by mouth l daily for 2 days. methylPREDN 2021-0 2021- No 32mg QD Take 1 Met hodi ISolone 9-15 09-18 tablet (32 st (MEDROL) 32 00:00: 04:59 mg total) Hospita MG tablet 00 :00 by mouth l daily for 2 days. methylPREDN 2021-0 2021- No 32mg QD Take 1 Met hodi ISolone 9-15 09-18 tablet (32 st (MEDROL) 32 00:00: 04:59 mg total) Hospita MG tablet 00 :00 by mouth l daily for 2 days. methylPREDN 2021-0 2- No 32mg QD Take 1 Met hodi ISolone 9-15 09-18 tablet (32 st (MEDROL) 32 00:00: 04:59 mg total) Hospita MG tablet 00 :00 by mouth l daily for 2 days. methylPREDN 2-0 2021- No 32mg QD Take 1 Met hodi ISolone 9-15 -18 tablet (32 st (MEDROL) 32 00:00: 04:59 mg total) Hospita MG tablet 00 :00 by mouth l daily for 2 days. meloxicam 2021-0 Yes [id number] 7.5mg Take 1 U nivers 7.5 mg 8-11 tablet by ity of tablet 00:00: mouth once [place] 00 daily as Medical needed for Branch Pain (scale 4-6). meloxicam 2021-0 2022- No [id number] 7.5mg Take 1 Univers 7.5 mg 8-11 -20 tablet by ity of tablet 00:00: 00:[place] mouth [place] daily [place] Medical needed for Branch Pain (scale 4-6). primidone 2021-0 Yes 100 mg = 2 Me moria 50 mg oral 6-21 tab, PO, l tablet 16:39: BID, # 360 Adela nn 00 tab, 1 Refill(s), Pharmacy: [facility] (Now [facility]), 148.59, cm, 11/01/21 11:21:00 CDT, Height, 60.568, kg, 11/01/21 11:21:00 CDT, Weight primidone 2021-0 Yes 100 mg = 2 Me moria 50 mg oral 6-21 tab, PO, l tablet 16:39: BID, # 360 Adela nn 00 tab, 1 Refill(s), Pharmacy: [facility] (Now [facility]), 148.59, cm, 11/01/21 11:21:00 CDT, Height, 60.568, kg, 11/01/21 11:21:00 CDT, Weight primidone 2021-0 Yes 100 mg = 2 Me moria 50 mg oral 6-21 tab, PO, l tablet 16:39: BID, # 360 Adela nn 00 tab, 1 Refill(s), Pharmacy: [facility] (Now [facility]), 148.59, cm, 11/01/21 11:21:00 CDT, Height, 60.568, kg, 11/01/21 11:21:00 CDT, Weight primidone 2021-0 Yes 100 mg = 2 Me moria 50 mg oral 6-21 tab, PO, l tablet 16:39: BID, # 360 Adela nn 00 tab, 1 Refill(s), Pharmacy: [facility] ([facility]), 148.59, cm, 11/01/21 11:21:00 CDT, Height, 60.568, kg, 11/01/21 11:21:00 CDT, Weight meloxicam 0 Yes 0 Memoria 7.5 mg oral 6-21 Refill(s) l tablet 16:24: meloxicam 2021-0 Yes 0 Memoria 7.5 mg oral 6-21 Refill(s) l tablet 16:24: meloxicam 2021-0 Yes 0 Memoria 7.5 mg oral 6-21 Refill(s) l tablet 16:24: meloxicam 0 Yes 0 Memoria 7.5 mg oral 6-21 Refill(s) l tablet 16:24: [place] 00 MELOXICAM 0 Yes [id number] TAKE 1 Un kvng 7.5 mg 6-13 TABLET ity of tablet 00:00: EVERY DAY [address] MELOXICAM 0 Yes [id number] TAKE 1 Un kvng 7.5 mg 6-13 TABLET ity of tablet 00:00: EVERY DAY [address] MELOXICAM 2020-05- No [id number] TAKE 1 U nivers 7.5 mg 0-14 08-11 TABLET ONE ity of tablet 00:00: 00:00 [place] :[place] NEEDED Medical FOR PAIN Branch (SCALE 4 TO 6) amLODIPine Yes amlodipine U nivers 5 mg tablet 8-20 5 mg ity of 10:18: tablet [address] omeprazole Yes omeprazole U nivers 40 mg 8-20 40 mg ity of capsule 10:18: [facility] [place] [facility] 81 Yes 81mg Take 81 mg U nivers mg chewable 8-20 by mouth ity of tablet 10:18: daily. [address] amLODIPine Yes amlodipine U nivers 5 mg tablet 8-20 5 mg ity of 10:18: tablet [address] omeprazole Yes omeprazole U nivers 40 mg 8-20 40 mg ity of capsule 10:18: [place] [address] aspirin 81 2020-0 Yes 81mg Take 81 mg U nivers mg chewable 8-20 by mouth ity of tablet 10:18: daily. [address] primidone 0 Yes 50 mg = 1 Mem oria 50 mg oral 6-16 tab, PO, l tablet 16:25: BID, # 180 Adela nn 00 tab, 1 Refill(s), Pharmacy: [facility], 149.86, cm, 10/27/20 11:15:00 CDT, Height, 60, kg, 10/27/20 11:15:00 CDT, Weight primidone Yes 50 mg = 1 Mem oria 50 mg oral 6-16 tab, PO, l tablet 16:25: BID, # 180 Adela nn 00 tab, 1 Refill(s), Pharmacy: [facility], 149.86, cm, 10/27/20 11:15:00 CDT, Height, 60, kg, 10/27/20 11:15:00 CDT, Weight primidone Yes 50 mg = 1 Mem oria 50 mg oral 6-16 tab, PO, l tablet 16:25: BID, # 180 Adela nn 00 tab, 1 Refill(s), Pharmacy: [facility], 149.86, cm, 10/27/20 11:15:00 CDT, Height, 60, kg, 10/27/20 11:15:00 CDT, Weight primidone 0 Yes 50 mg = 1 Mem oria 50 mg oral 6-16 tab, PO, l tablet 16:25: BID, # 180 Adela nn 00 tab, 1 Refill(s), Pharmacy: [facility], 149.86, cm, 10/27/20 11:15:00 CDT, Height, 60, kg, 10/27/20 11:15:00 CDT, Weight cyclobenzap 0 Yes 0 Memori a rine 5 mg 6-16 Refill(s) l oral tablet 16:16: Obi n 00 cyclobenzap Yes 0 Memori a rine 5 [...] nn 00 30 tab, 3 Refill(s), Pharmacy: [facility], 144.78, cm, 06/25/20 14:23:00 [employer], Height, 59.545, kg, 08/27/20 11:40:00 CDT, Weight primidone 2020-0 Yes 50 mg = 1 Mem oria 50 mg oral 4-16 tab, PO, l tablet 16:57: Bedtime, # Adela nn 00 30 tab, 3 Refill(s), Pharmacy: [facility] 482, 144.78, cm, 06/25/20 14:23:00 [employer], Height, 59.545, kg, 08/27/20 11:40:00 CDT, Weight primidone 2020-0 Yes 50 mg = 1 Mem oria 50 mg oral 4-16 tab, PO, l tablet 16:57: Bedtime, # Adela nn 00 30 tab, 3 Refill(s), Pharmacy: [facility] 482, 144.78, cm, 06/25/20 14:23:00 [employer]PAIRER, Height, 59.545, kg, 08/27/20 11:40:00 CDT, Weight primidone 2020-0 Yes 50 mg = 1 Mem oria 50 mg oral 4-16 tab, PO, l tablet 16:57: Bedtime, # Adela nn 00 30 tab, 3 Refill(s), Pharmacy: [facility] 482, 144.78, cm, 06/25/20 14:23:00 [employer]PA[employer], Height, 59.545, kg, 08/27/20 11:40:00 CDT, Weight topiramate 2020-0 Yes 25 mg = 1 Me moria 25 MG Oral 2-13 tab, PO, l Tablet 00:28: Bedtime, # Adela nn [Topamax] 00 30 tab, 2 Refill(s), Pharmacy: [facility], 144.78, cm, 06/25/20 14:23:00 [employer], Height, 60.909, kg, 06/25/20 14:23:00 [employer] REPAIRER, Weight topiramate 2020-0 Yes 25 mg = 1 Me moria 25 MG Oral 2-13 tab, PO, l Tablet 00:28: Bedtime, # Adela nn [Topamax] 00 30 tab, 2 Refill(s), Pharmacy: [facility] 482, 144.78, cm, 06/25/20 14:23:00 [employer] REPA[employer], Height, 60.909, kg, 06/25/20 14:23:00 [employer] REPAIRER, Weight topiramate 2020-0 Yes 25 mg = 1 Me moria 25 MG Oral 2-13 tab, PO, l Tablet 00:28: Bedtime, # Adela nn [Topamax] 00 30 tab, 2 Refill(s), Pharmacy: [facility], 144.78, cm, 06/25/20 14:23:00 M[employer] REPAIRER, Height, 60.909, kg, 06/25/20 14:23:00 M[employer] REPAIRER, Weight topiramate 2020-0 Yes 25 mg = 1 Me moria 25 MG Oral 2-13 tab, PO, l Tablet 00:28: Bedtime, # Adela nn [Topamax] 00 30 tab, 2 Refill(s), Pharmacy: [facility] 482, 144.78, cm, 06/25/20 14:23:00 M[employer] REPAIRER, Height, 60.909, kg, 06/25/20 14:23:00 M[employer] ST[employer] REPAIRER, Weight Topamax 25 2020-0 Yes 25 mg = 1 Me moria mg oral 2-13 tab, PO, l tablet 00:28: Bedtime, # Adela nn 00 30 tab, 2 Refill(s), Pharmacy: [facility] 482, 144.78, cm, 06/25/20 14:23:00 [employer] REPAIRER, Height, 60.909, kg, 06/25/20 14:23:00 [employer] REPAIRER, Weight Protonix 2020-0 Yes 40 mg, PO, [...] Daily, # l 20:31: 30 tab, 0 [place] 00 Refill(s) Clonidine 2020-0 Yes 0.1 mg, Memor ia 2-12 PO, PRN, 0 l 20:31: Refill(s) Protonix 2020-0 Yes 40 mg, PO, Mem oria 2-12 Daily, # l 20:31: 30 tab, 0 Refill(s) cloNIDine 2020-0 Yes 0.1 mg, Memor ia 2-12 PO, PRN, 0 l 20:31: Refill(s) aspirin 2019-0 Yes 81mg QD Take 81 mg Meth george (ECOTRIN) 1-[address] 81 MG 21:08: daily. Hospita enteric 48 l coated tablet amlodipine- 2019-0 Yes 1{tbl} QD Take 1 Me thodi valsartan 1-[address] (EXFORGE) 21:08: mouth Hospita 5-160 mg 48 daily. l per tablet clonIDINE 2019-0 Yes .1mg Q24H Take 0.1 Meth george (CATAPRES) 1-[address] 0.1 MG 21:08: mouth Hospita tablet 48 daily as l needed for high blood pressure. pantoprazol 2020-0 Yes 40mg QD Take 40 mg Methodi e sodium 1-[address] (PANTOPRAZO 21:08: daily. Hosp jaquan LE ORAL) 48 l levothyroxi 2020-0 Yes 25ug QD Take 25 Met hodi ne 1-[address] (SYNTHROID) 21:08: mouth Hospi ta 25 mcg 48 daily. l tablet aspirin 2020-0 Yes 81mg QD Take 81 mg Meth george (ECOTRIN) 1-[address] 81 MG 21:08: daily. Hospita enteric 48 l coated tablet amlodipine- 2020-0 Yes 1{tbl} QD Take 1 Me thodi valsartan 1-[address] (EXFORGE) 21:08: mouth Hospita 5-160 mg 48 daily. l per tablet clonIDINE 2020-0 Yes .1mg Q24H Take 0.1 Meth george (CATAPRES) 1-[address] 0.1 MG 21:08: mouth Hospita tablet 48 daily as l needed for high blood pressure. pantoprazol 2020-0 Yes 40mg QD Take 40 mg Methodi e sodium 1-[address] (PANTOPRAZO 21:08: daily. Hosp jaquan LE ORAL) 48 l levothyroxi 2020-0 Yes 25ug QD Take 25 Met hodi ne 1-[address] (SYNTHROID) 21:08: mouth Hospi ta 25 mcg 48 daily. l tablet aspirin 2020-0 Yes 81mg QD Take 81 mg Meth george (ECOTRIN) 1-[address] 81 MG 21:08: daily. Hospita enteric 48 l coated tablet amlodipine- 2020-0 Yes 1{tbl} QD Take 1 Me thodi valsartan 1-[address] (EXFORGE) 21:08: mouth Hospita 5-160 mg 48 daily. l per tablet clonIDINE 2020-0 Yes .1mg Q24H Take 0.1 Meth george (CATAPRES) 1-[address] 0.1 MG 21:08: mouth Hospita tablet 48 daily as l needed for high blood pressure. pantoprazol 2020-0 Yes 40mg QD Take 40 mg Methodi e sodium 1-[address] (PANTOPRAZO 21:08: daily. Hosp jaquan LE ORAL) 48 l levothyroxi 2020-0 Yes 25ug QD Take 25 Met hodi ne 1-[address] (SYNTHROID) 21:08: mouth Hospi ta 25 mcg 48 daily. l tablet aspirin 2020-0 Yes 81mg QD Take 81 mg Meth george (ECOTRIN) 1-[address] 81 MG 21:08: daily. Hospita enteric 48 l coated tablet amlodipine- 2020-0 Yes 1{tbl} QD Take 1 Me thodi valsartan 1-[address] (EXFORGE) 21:08: mouth Hospita 5-160 mg 48 daily. l per tablet clonIDINE 2020-0 Yes .1mg Q24H Take 0.1 Meth george (CATAPRES) 1-[address] 0.1 MG 21:08: mouth Hospita tablet 48 daily as l needed for high blood pressure. pantoprazol 2020-0 Yes 40mg QD Take 40 mg Methodi e sodium 1-[address] (PANTOPRAZO 21:08: daily. Hosp jaquan LE ORAL) 48 l levothyroxi 2020-0 Yes 25ug QD Take 25 Met hodi ne 1-[address] (SYNTHROID) 21:08: mouth Hospi ta 25 mcg 48 daily. l tablet aspirin 2020-0 Yes 81mg QD Take 81 mg Meth george (ECOTRIN) 1-[address] 81 MG 21:08: daily. Hospita enteric 48 l coated tablet amlodipine- 2020-0 Yes 1{tbl} QD Take 1 Me thodi valsartan 1-[address] (EXFORGE) 21:08: mouth Hospita 5-160 mg 48 daily. l per tablet clonIDINE 2020-0 Yes .1mg Q24H Take 0.1 Meth george (CATAPRES) 1-[address] 0.1 MG 21:08: mouth Hospita tablet 48 daily as l needed for high blood pressure. pantoprazol 2020-0 Yes 40mg QD Take 40 mg Methodi e sodium 1-[address] (PANTOPRAZO 21:08: daily. Hosp jaquan LE ORAL) 48 l levothyroxi 2020-0 Yes 25ug QD Take 25 Met hodi ne 1-[address] (SYNTHROID) 21:08: mouth Hospi ta 25 mcg 48 daily. l tablet levothyroxi 2019- Yes TAKE 1 Univ ers ne 25 mcg 2-11 TABLET BY ity o f tablet 00:00: MOUTH [place] 00 EVERY Medical MORNING Branch WITH WATER AND ON AN EMPTY STOMACH levothyroxi 2018-05 Yes TAKE 1 Univ ers ne 25 mcg 2-11 TABLET BY itfaith o f tablet 00:00: MOUTH [place] [facility] MORNING Branch WITH WATER AND ON AN EMPTY STOMACH Sodium 2018-05 No 1,000 mL, Memori a Chloride 1-26 Rate: 75 l 0.9% IV 17:26: ml/hr, [place] 1000 mL 00 Infuse over: 13.3 hr, Route: IV, Dosing Weight 62.045 kg, Total Volume: 1,000, Start date: 04/08/19 11:26:00 [employer]ER, Duration: 30 day, Stop date: 05/08/19 11:25:00 [employer] REPAIRER, 1.65, m2 Sodium 2018-05 No 1,000 mL, Memori a Chloride 1-26 Rate: 75 l 0.9% IV 17:26: ml/hr, [place] 1000 mL 00 Infuse over: 13.3 hr, Route: IV, Dosing Weight 62.045 kg, Total Volume: 1,000, Start date: 04/08/19 11:26:00 M[employer] REPAIRER, Duration: 30 day, Stop date: 05/08/19 11:25:00 M[employer] ST[employer] REPAIRER, 1.65, m2 Sodium 2018-05 No 1,000 mL, Memori a Chloride 1-26 Rate: 75 l 0.9% IV 17:26: ml/hr, [place] 1000 mL 00 Infuse over: 13.3 hr, Route: IV, Dosing Weight 62.045 kg, Total Volume: 1,000, Start date: 04/08/19 11:26:00 M[employer] REPAIRER, Duration: 30 day, Stop date: 05/08/19 11:25:00 M[employer] REPAIRER, 1.65, m2 Sodium 2018-05 No 1,000 mL, Memori a Chloride 1-26 Rate: 75 l 0.9% IV 17:26: ml/hr, [place] 1000 mL 00 Infuse over: 13.3 hr, Route: IV, Dosing Weight 62.045 kg, Total Volume: 1,000, Start date: 04/08/19 11:26:00 M[employer] REPAIRER, Duration: 30 day, Stop date: 05/08/19 11:25:00 [employer] REPAIRER, 1.65, m2 levothyroxi 2018-05 Yes 25 Memori [...] Refill(s) Amlodipine- Amlodipine- Yes Gaudencio 1 tablet Common Atorvastati Atorvastati 01-30 [facility]: - [facility] Omeprazole Omeprazole Yes Gaudencio 1 capsule Common 01-30 [facility] 00:00: - [facility] Pantoprazol Pantoprazol Yes LEONOR 1 QD TAKE 1 UT e Sodium 40 e Sodium 40 01-29 OBONYANO TABLET Physici MG Oral MG Oral 00:00: N.P. DAILY ans Tablet Tablet 00 Delayed Delayed Release Release fentaNYL No Route: IV, Mem oria (ANES) 7 Drug form: l 19:52: INJ, ONCE, Stop date: 11/22/17 14:52:00 CDT fentaNYL No Route: IV, Mem oria (ANES) 12 Drug form: l 19:52: INJ, ONCE, Stop [...] ONCE, Stop date: 11/22/17 14:27:00 CDT lidocaine 2018-0 No Route: IV, Me moria (ANES) 11-22 [...] ONCE, Stop date: 11/22/17 14:27:00 CDT succinylcho 2018-0 No Route: IV, Memoria line (ANES) 11-22 Drug form: l 19:27: INJ, ONCE, Stop date: 11/22/17 14:27:00 CDT lidocaine 2018-0 No Route: IV, Me moria (ANES) 11-22 Drug form: l 19:27: INJ, ONCE, Stop date: 11/22/17 14:27:00 CDT rocuronium 2018-0 No Route: IV, M emoria (ANES) 7- Drug form: l 19:27: INJ, ONCE, Stop date: 11/22/17 14:27:00 CDT fentaNYL 2018-0 No Route: IV, Mem oria (ANES) 7 Drug form: l 19:27: INJ, ONCE, Stop date: 11/22/17 14:27:00 CDT propofol 2018-0 No Route: IV, Mem oria (ANES) 7- Drug form: l 19:27: INJ, ONCE, Stop date: 11/22/17 14:27:00 CDT succinylcho 2018-0 No Route: IV, Memoria line (ANES) 11-22 Drug form: l 19:27: INJ, ONCE, Stop date: 11/22/17 14:27:00 CDT lidocaine 2018-0 No Route: IV, Me moria (ANES) 11-22 [...] 2018-0 No Route: IV, Mem oria (ANES) 7- Drug form: l 19:27: INJ, ONCE, Stop date: 11/22/17 14:27:00 CDT succinylcho 2018-0 No Route: IV, Memoria line (ANES) - Drug form: l 19:27: INJ, ONCE, Stop date: 11/22/17 14:27:00 CDT lidocaine 2018-0 No Route: IV, Me moria (ANES) Drug form: l 19:27: INJ, ONCE, Stop date: 11/22/17 14:27:00 CDT rocuronium 2018-0 No Route: IV, Mauricio israelria (ANES) 7- Drug form: l 19:27: INJ, ONCE, Stop date: 11/22/17 14:27:00 CDT fentaNYL 2018-0 No Route: IV, Mem oria (ANES) 11-22 Drug form: l 19:27: INJ, ONCE, Stop date: 11/22/17 14:27:00 CDT propofol 2018-0 No Route: IV, Mem oria (ANES) 7 Drug form: l 19:27: INJ, ONCE, Stop [...] 2017-0 No Route: IV, Mem oria Ringers 7-12 Total l Injection 18:28: Volume: Adela nn IV (ANES) 00 1,000, 1000 mL Start date: 11/22/17 13:28:00 CDT, Stop date: 11/22/17 14:28:00 CDT Lactated 2017-0 No Route: IV, Mem oria Ringers 7-12 [...] Memoria 7-12 Infuse l 05:00: over 15 [place] 00 minutes Do not exceed 4gm/day of [...] patch 7-12 Remove old l 05:00: patch [place] 00 before applicatio n of new patch. [...] patch 7-12 Remove old l 05:00: patch [place] 00 before applicatio n of new patch. No Notes: Memoria 7-12 Infuse l 05:00: over 15 [place] 00 minutes Do not exceed 4gm/day of [...] patch 7-12 Remove old l 05:00: patch [place] 00 before applicatio n of new patch. No Notes: Memoria 7-12 Infuse l 05:00: over 15 [place] 00 minutes Do not exceed 4gm/day of acetaminop hen MEDICATION WASTE Product Size: 1000 mg Product Wasted: ___ mg heparin No Notes: Memoria 7-12 porcine l 05:00: heparin [place] 00 scopolamine No Notes: Jhonathan jaime 7-12 Change l 05:00: patch [place] 00 every 72 hours (Same as: Transderm- Scop) ceFAZolin + No Notes: Jhonathan jaime sterile 7-12 (Same As: l water 20 mL 05:00: Ancef, Herm steph 00 Kefzol) MEDICATION WASTE Product Size: 1000 mg Product Wasted: ___ mg Aspirin 81 2018- Yes 81 mg = 1 Me moria MG Enteric 7-10 tab, PO, l Coated 18:02: Daily, # [place] Tablet 00 90 tab, 3 Refill(s) Aspirin [...] tab, PO, l Coated 18:02: Daily, # [place] Tablet 00 90 tab, 3 Refill(s) aspirin 81 2018- Yes 81 mg = 1 Me moria mg tablet, 7-10 tab, PO, l enteric 18:02: Daily, # Obi n coated 00 90 tab, 3 Refill(s) Hemocyte 2017 No Notes: Memoria Plus 0-20 Same as l 14:00: Iron/C/B12 [place] /FA/SA Hemocyte 2016-05 No Notes: Memoria Plus 0-20 Same as l 14:00: Iron/C/B12 [place] /FA/SA Hemocyte 2016-05 No Notes: Memoria Plus 0-20 Same as l 14:00: Iron/C/B12 [place] /FA/SA Hemocyte 2016-05 No Notes: Memoria Plus 0-20 Same as l 14:00: Iron/C/B12 [place] /FA/SA Acetaminoph 2016-05 Yes 1 - 2 [...] not exceed l 13:50: 4 gm/day. [place] 00 (Same as: Tylenol) Tylenol 2016-05 No Notes: Do Memor ia 0-19 not exceed l 13:50: 4 gm/day. [place] 00 (Same as: Tylenol) Tylenol 2016-05 No Notes: Do Memor ia 0-19 not exceed l 13:50: 4 gm/day. [place] 00 (Same as: Tylenol) Roxicodone 2016-05 No Notes: [...] Route: PO, l Oxycodone 13:35: Drug Form: He rmann Hydrochlori 00 TAB, de 5 MG Dosing Oral Tablet Weight [Percocet 57.864, 5/325] kg, Q4H, PRN Pain Score 1-3, Start date: 03/01/17 8:35:00 CDT, Duration: 30 day, Stop date: 03/31/17 8:34:00 [employer] REPAIRER Acetaminoph 2016-05 No 1 tab, Jhonathan jaime en 325 MG / 0-19 Route: PO, l Oxycodone 13:35: Drug Form: He rmann Hydrochlori 00 TAB, de 5 MG Dosing Oral Tablet Weight [Percocet 57.864, 5/325] kg, Q4H, PRN Pain Score 1-3, Start date: 03/01/17 8:35:00 CDT, Duration: 30 day, Stop date: 03/31/17 8:34:00 M[employer] REPAIRER Acetaminoph 2016-05 No 1 tab, Jhonathan jaime en 325 MG / 0-19 Route: PO, l Oxycodone 13:35: Drug Form: He rmann Hydrochlori 00 TAB, de 5 MG Dosing Oral Tablet Weight [Percocet 57.864, 5/325] kg, Q4H, PRN Pain Score 1-3, Start date: 03/01/17 8:35:00 CDT, Duration: 30 day, Stop date: 03/31/17 8:34:00 [employer] REPAIRER Acetaminoph 2017- No 1 tab, Jhonathan jaime en 325 MG / 0-19 Route: PO, l Oxycodone 13:35: Drug Form: Elvin robertson Hydrochlori 00 TAB, de 5 MG Dosing Oral Tablet Weight [Percocet 57.864, 5/325] kg, Q4H, PRN Pain Score 1-3, Start date: 03/01/17 8:35:00 CDT, Duration: 30 day, Stop date: 03/31/17 8:34:00 [employer] REPAIRER Omeprazole 2016- No 20 mg, Memor ia 0-18 Route: PO, l 22:00: Drug form: [place] 00 ECTAB, BID, Dosing Weight 57.864, kg, Start date: 02/28/17 17:00:00 CDT, Duration: 30 day, Stop date: 03/30/17 9:00:00 [employer] REPAIRER Omeprazole 2016- No 20 mg, Memor ia 0-18 Route: PO, l 22:00: Drug form: [place] 00 ECTAB, BID, Dosing Weight 57.864, kg, Start date: 02/28/17 17:00:00 CDT, Duration: 30 day, Stop date: 03/30/17 9:00:00 [employer] REPAIRER Omeprazole 2017-1 No 20 mg, Memor ia 0-18 Route: PO, l 22:00: Drug form: [place] 00 ECTAB, BID, Dosing Weight 57.864, kg, Start date: 02/28/17 17:00:00 CDT, Duration: 30 day, Stop date: 03/30/17 9:00:00 [employer] REPAIRER Omeprazole 2017-1 No 20 mg, Memor ia 0-18 Route: PO, l 22:00: Drug form: Rocky 00 ECTAB, BID, Dosing Weight 57.864, kg, Start date: 02/28/17 17:00:00 CDT, Duration: 30 day, Stop date: 03/30/17 9:00:00 [employer] Protonix 2016-1 No Notes: Memoria 0-18 Tablet l 21:30: should not Spurger 00 be chewed or crushed. (Same as: Protonix) Protonix 2016- No Notes: Memoria 0-18 Tablet l 21:30: should not Rocky 00 be chewed or crushed. (Same as: Protonix) Protonix 2016- No Notes: Memoria 0-18 Tablet l 21:30: should not Rocky 00 be chewed or crushed. (Same as: Protonix) Protonix 2016- No Notes: Memoria 0-18 Tablet l 21:30: should not Spurger 00 be chewed or crushed. (Same as: Protonix) Dilaudid 2016- No 1 mg, 1 Memori a 0-18 mL, Route: l 13:35: IVP, Drug Spurger 00 form: INJ, Q4H, Dosing Weight 57.864, kg, PRN Pain Score 7-10, Start date: 02/28/17 8:35:00 CDT, Duration: 3 day, Stop date: 03/03/17 8:34:00 CDT Dilaudid 2016- No 1 mg, 1 Memori a 0-18 mL, Route: l 13:35: IVP, Drug Rocky 00 form: INJ, Q4H, Dosing Weight 57.864, kg, PRN Pain Score 7-10, Start date: 02/28/17 8:35:00 CDT, Duration: 3 day, Stop date: 03/03/17 8:34:00 CDT Dilaudid 2016-1 No 1 mg, 1 Memori a 0-18 mL, Route: l 13:35: IVP, Drug Rocky 00 form: INJ, Q4H, Dosing Weight 57.864, kg, PRN Pain Score 7-10, Start date: 02/28/17 8:35:00 CDT, Duration: 3 day, Stop date: 03/03/17 8:34:00 CDT Dilaudid 2016-1 No 1 mg, 1 Memori a 0-18 mL, Route: l 13:35: IVP, Drug [place] 00 form: INJ, Q4H, Dosing Weight 57.864, kg, PRN Pain Score 7-10, Start date: 02/28/17 8:35:00 CDT, Duration: 3 day, Stop date: 03/03/17 8:34:00 CDT Acetaminoph 2016-05 No Notes: Jhonathan jaime en 325 MG / 0-18 Same as l Hydrocodone 13:34: [place] Adela nn Bitartrate 00 325-7.5mg 7.5 MG Oral Do not Tablet exceed [[place] 4gm/day of 7.5/325] acetaminop hen. Acetaminoph 2016-05 No Notes: Jhonathan jaime en 325 MG / 0-18 Same as l Hydrocodone 13:34: [place] Adela nn Bitartrate 00 325-7.5mg 7.5 MG Oral Do not Tablet exceed [[place] 4gm/day of 7.5/325] acetaminop hen. Acetaminoph 2016-05 No Notes: Jhonathan jaime en 325 MG / 0-18 Same as l Hydrocodone 13:34: [place] Adela nn Bitartrate 00 325-7.5mg 7.5 MG Oral Do not Tablet exceed [[place] 4gm/day of 7.5/325] acetaminop hen. Acetaminoph 2016-05 No Notes: Jhonathan jaime en 325 MG / 0-18 Same as l Hydrocodone 13:34: [place] Adela nn Bitartrate 00 325-7.5mg 7.5 MG Oral Do not Tablet exceed [[place] 4gm/day of 7.5/325] acetaminop hen. Enoxaparin 2016-05 No Notes: Memor ia 0-18 (Same as: l 04:00: Lovenox) Enoxaparin 2016-05 No Notes: Memor ia 0-18 (Same as: l 04:00: Lovenox) Enoxaparin 2016-05 No Notes: Memor ia 0-18 (Same as: l 04:00: Lovenox) Enoxaparin 2016-05 No Notes: Memor ia 0-18 (Same as: l 04:00: Lovenox) ceFAZolin 2016-05 No 1 gm, 100 Mem oria (SCIP) 0-18 mL, Route: l 03:00: IVPB, Drug form: INJ, Q6H, Dosing Weight 57.864, kg, Start date: 02/27/17 22:00:00 CDT, Duration: 3 doses or times, Stop date: 02/28/17 10:00:00 CDT, ABX Indication : Surgical Prophylaxi s ceFAZolin 2017-1 No 1 gm, 100 Mem oria (SCIP) 0-18 mL, Route: l 03:00: IVPB, Drug [place] 00 form: INJ, Q6H, Dosing Weight 57.864, kg, Start date: 02/27/17 22:00:00 CDT, Duration: 3 doses or times, Stop date: 02/28/17 10:00:00 CDT, ABX Indication : Surgical Prophylaxi s ceFAZolin 2016- No 1 gm, 100 Mem oria (SCIP) 0-18 mL, Route: l 03:00: IVPB, Drug [place] 00 form: INJ, Q6H, Dosing Weight 57.864, kg, Start date: 02/27/17 22:00:00 CDT, Duration: 3 doses or times, Stop date: 02/28/17 10:00:00 CDT, ABX Indication : Surgical Prophylaxi s ceFAZolin 2016- No 1 gm, 100 Mem oria (SCIP) 0-18 mL, Route: l 03:00: IVPB, Drug [place] 00 form: INJ, Q6H, Dosing Weight 57.864, kg, Start date: 02/27/17 22:00:00 CDT, Duration: 3 doses or times, Stop date: 02/28/17 10:00:00 CDT, ABX Indication : Surgical Prophylaxi s Lunesta 2017-1 No 3 mg, Memoria 0-18 Route: PO, l 02:00: Bedtime, Rocky 00 Dosing Weight 57.864, kg, Start date: 02/27/17 21:00:00 CDT, Duration: 30 day, Stop date: 03/28/17 21:00:00 [employer] Lunesta 2017-1 No 3 mg, Memoria 0-18 Route: PO, l 02:00: Bedtime, [place] Dosing Weight 57.864, kg, Start date: 02/27/17 21:00:00 CDT, Duration: 30 day, Stop date: 03/28/17 21:00:00 [employer] Lunesta 2016-05 No 3 mg, Memoria 0-18 Route: PO, l 02:00: Bedtime, [place] Dosing Weight 57.864, kg, Start date: 02/27/17 21:00:00 CDT, Duration: 30 day, Stop date: 03/28/17 21:00:00 [employer] Lunesta 2016-05 No 3 mg, Memoria 0-18 Route: PO, l 02:00: Bedtime, [place] Dosing Weight 57.864, kg, Start date: 02/27/17 21:00:00 CDT, Duration: 30 day, Stop date: 03/28/17 21:00:00 [employer] zolpidem 2016-05 No Notes: Memoria 0-17 (Same As: l 22:51: Ambien) Rocky zolpidem 2016-05 No Notes: Memoria 0-17 (Same As: l 22:51: Ambien) [place] zolpidem 2016-05 No Notes: Memoria 0-17 (Same As: l 22:51: Ambien) [place] zolpidem 2016-05 No Notes: Memoria 0-17 (Same As: l 22:51: Ambien) [place] Docusate 2016-05 No Notes: Memoria 0-17 (Same as: l 22:00: Colace) [place] (Do Not Crush) Docusate 2016-05 No Notes: Memoria 0-17 (Same as: l 22:00: Colace) [place] (Do Not Crush) Docusate 2016-05 No Notes: Memoria 0-17 (Same as: l 22:00: Colace) Rocky (Do Not Crush) Docusate 2016-05 No Notes: Memoria 0-17 (Same as: l 22:00: Colace) [place] 00 (Do Not Crush) Naloxone 2016-05 No 0.4 mg, Memori a 0-17 Route: l 17:08: IVP, [place] 00 Q2MIN, Dosing Weight 57.864, kg, PRN Narcotic Reversal, Start date: 02/27/17 12:08:00 CDT, Duration: 8 doses or times, Stop date: Limited # of times Flumazenil 2016-05 No 0.2 mg, Jhonathan jaime 0-17 Route: l 17:08: IVP, PRN, [place] 00 Dosing Weight 57.864, kg, PRN Benzodiaze pine Reversal, Initial dose, Start date: 02/27/17 12:08:00 CDT, Duration: 30 day, Stop date: 03/29/17 11:07:00 [employer] Hydromorpho 2016-05 No 0.5 mg, Mem oria [...] ia 0-17 Route: l 17:08: IVP, ONCE, [place] 00 Dosing Weight 57.864, kg, PRN Nausea & Vomiting, Start date: 02/27/17 12:08:00 CDT Naloxone 2016-05 No 0.4 mg, Memori a 0-17 Route: l 17:08: IVP, [place] 00 Q2MIN, Dosing Weight 57.864, kg, PRN Narcotic Reversal, Start date: 02/27/17 12:08:00 CDT, Duration: 8 doses or times, Stop date: Limited # of times Flumazenil 2016-05 No 0.2 mg, Jhonathan jaime 0-17 Route: l 17:08: IVP, PRN, [place] 00 Dosing Weight 57.864, kg, PRN Benzodiaze pine Reversal, Initial dose, Start date: 02/27/17 12:08:00 CDT, Duration: 30 day, Stop date: 03/29/17 11:07:00 [employer] Hydromorpho 2016-05 No 0.5 mg, Mem oria [...] moria e 0-17 Route: l 17:08: IVPB, [place] 00 ONCE, Dosing Weight 57.864, kg, PRN Nausea & Vomiting, Start date: 02/27/17 12:08:00 CDT Ondansetron 2016-05 No 4 mg, Memor ia 0-17 Route: l 17:08: IVP, ONCE, [place] 00 Dosing Weight 57.864, kg, PRN Nausea & Vomiting, Start date: 02/27/17 12:08:00 CDT Naloxone 2016-05 No 0.4 mg, Memori a 0-17 Route: l 17:08: IVP, [place] 00 Q2MIN, Dosing Weight 57.864, kg, PRN Narcotic Reversal, Start date: 02/27/17 12:08:00 CDT, Duration: 8 doses or times, Stop date: Limited # of times Flumazenil 2016-05 No 0.2 mg, Jhonathan jaime 0-17 Route: l 17:08: IVP, PRN, [place] 00 Dosing Weight 57.864, kg, PRN Benzodiaze pine Reversal, Initial dose, Start date: 02/27/17 12:08:00 CDT, Duration: 30 day, Stop date: 03/29/17 11:07:00 [employer] Hydromorpho 2016-05 No 0.5 mg, Mem oria ne 0-17 Route: l 17:08: IVP, [place] 00 Q5Min, Dosing Weight 57.864, kg, PRN [...] moria e 0-17 Route: l 17:08: IVPB, [place] 00 ONCE, Dosing Weight 57.864, kg, PRN Nausea & Vomiting, Start date: 02/27/17 12:08:00 CDT Ondansetron 2016-05 No 4 mg, Memor ia 0-17 Route: l 17:08: IVP, ONCE, [place] 00 Dosing Weight 57.864, kg, PRN Nausea & Vomiting, Start date: 02/27/17 12:08:00 CDT Naloxone 2016-05 No 0.4 mg, Memori a 0-17 Route: l 17:08: IVP, [place] 00 Q2MIN, Dosing Weight 57.864, kg, PRN Narcotic Reversal, Start date: 02/27/17 12:08:00 CDT, Duration: 8 doses or times, Stop date: Limited # of times Flumazenil 2016-05 No 0.2 mg, Jhonathan jaime 0-17 Route: l 17:08: IVP, PRN, [place] 00 Dosing Weight 57.864, kg, PRN Benzodiaze pine Reversal, Initial dose, Start date: 02/27/17 12:08:00 CDT, Duration: 30 day, Stop date: 03/29/17 11:07:00 [employer] Hydromorpho 2016-05 No 0.5 mg, Mem oria [...] Stop date: Limited # of times Promethazin 2016- No 6.25 mg, Me moria e 0-17 [...] ABX Indication : Surgical Prophylaxi s Cefazolin 2016-1 No 1 gm, Memoria 0-17 Route: l 17:00: IVPB, Drug [place] 00 form: INJ, Q6H, Dosing Weight 57.864, [...] Memor ia 0-17 Route: l 16:00: SUB-Q, Rocky 00 Drug form: INJ, [id number], Dosing Weight 57.864, kg, Start date: 02/27/17 11:00:00 CDT, Duration: 30 day, Stop date: 03/28/17 23:00:00 [employer] Enoxaparin 2016- No 30 mg, Memor ia 0-17 Route: l 16:00: SUB-Q, Drug form: INJ, [id number], Dosing Weight 57.864, kg, Start date: 02/27/17 11:00:00 CDT, Duration: 30 day, Stop date: 03/28/17 23:00:00 [employer] Enoxaparin 2016- No 30 mg, Memor ia 0-17 Route: l 16:00: SUB-Q, Drug form: INJ, [id number], Dosing Weight 57.864, kg, Start date: 02/27/17 11:00:00 CDT, Duration: 30 day, Stop date: 03/28/17 23:00:00 [employer] Enoxaparin 2016- No 30 mg, Memor ia 0-17 Route: l 16:00: SUB-Q, Drug form: INJ, [id number], Dosing Weight 57.864, kg, Start date: 02/27/17 11:00:00 CDT, Duration: 30 day, Stop date: 03/28/17 23:00:00 [employer] glycopyrrol 2016- No Route: IV, Memoria ate (ANES) 0-17 Drug form: l 15:49: INJ, ONCE, [place] Stop date: 02/27/17 10:49:00 CDT ketOROLAC 2016-05 [...] ne 0-17 0.3 mL, l 15:43: Route: [place] 00 IVP, Drug form: INJ, Q4H, Dosing Weight 57.864, kg, PRN Pain Score 7-10, Start date: 02/27/17 10:43:00 CDT, Duration: 30 day, Stop date: 03/29/17 10:42:00 [employer] Diphenhydra 2016-05 No 12.5 mg, Me moria mine 0-17 0.5 tab, l 15:43: Route: PO, Drug form: TAB, Q6H, Dosing Weight 57.864, kg, PRN Itching, Start date: 02/27/17 10:43:00 CDT, Duration: 30 day, Stop date: 03/29/17 10:42:00 [employer] Al 2016-05 No Notes: Memoria hydroxide/M 0-17 [...] Duration: 30 day, Stop date: 03/29/17 10:42:00 [employer] Hydromorpho 2016-05 No 0.3 mg, Mem oria ne 0-17 0.3 mL, l 15:43: Route: [place] 00 IVP, Drug form: INJ, Q4H, Dosing Weight 57.864, kg, PRN Pain Score 7-10, Start date: 02/27/17 10:43:00 CDT, Duration: 30 day, Stop date: 03/29/17 10:42:00 [employer] Diphenhydra 2016-05 No 12.5 mg, Me moria mine 0-17 0.5 tab, l 15:43: Route: PO, Rocky 00 Drug form: TAB, Q6H, Dosing Weight 57.864, kg, PRN Itching, Start date: 02/27/17 10:43:00 CDT, Duration: 30 day, Stop date: 03/29/17 10:42:00 [employer] Al 2016-05 No Notes: Memoria hydroxide/M 0-17 [...] Duration: 30 day, Stop date: 03/29/17 10:42:00 [employer] Hydromorpho 2016-05 No 0.3 mg, Mem oria ne 0-17 0.3 mL, l 15:43: Route: IVP, Drug form: INJ, Q4H, Dosing Weight 57.864, kg, PRN Pain Score 7-10, Start date: 02/27/17 10:43:00 CDT, Duration: 30 day, Stop date: 03/29/17 10:42:00 [employer] Diphenhydra 2016-05 No 12.5 mg, Me moria mine 0-17 0.5 tab, l 15:43: Route: PO, Drug form: TAB, Q6H, Dosing Weight 57.864, kg, PRN Itching, Start date: 02/27/17 10:43:00 CDT, Duration: 30 day, Stop date: 03/29/17 10:42:00 [employer] Al 2016-05 No Notes: Memoria hydroxide/M 0-17 (aluminum l g 15:43: hydroxide- [place] hydroxide/s 00 magnesium imethicone hyd-simeth 200 mg-200 icone mg-20 mg/5 200-200-20 mL oral mg/5ml 30 suspension ml ud KARINA) Ondansetron 2016-05 No Notes: Jhonathan jaime 0-17 (Same as: l 15:43: Zofran) [place] 00 MEDICATION WASTE Product Size: 4 mg Product Wasted: ___ mg Lactated 2016-05 No 1,000 mL, Jhonathan jaime Ringers 0-17 Rate: 75 l 1,000 mL 15:43: ml/hr, Infuse over: 13.3 hr, Route: IV, Dosing Weight 57.864 kg, Total Volume: 1,000, Start date: 02/27/17 10:43:00 CDT, Duration: 30 day, Stop date: 03/29/17 10:42:00 [employer] Hydromorpho 2016-05 No 0.3 mg, Mem oria ne 0-17 0.3 mL, l 15:43: Route: IVP, Drug form: INJ, Q4H, Dosing Weight 57.864, kg, PRN Pain Score 7-10, Start date: 02/27/17 10:43:00 CDT, Duration: 30 day, Stop date: 03/29/17 10:42:00 [employer] Diphenhydra 2016-05 No 12.5 mg, Me moria mine 0-17 0.5 tab, l 15:43: Route: PO, Drug form: TAB, Q6H, Dosing Weight 57.864, kg, PRN Itching, Start date: 02/27/17 10:43:00 CDT, Duration: 30 day, Stop date: 03/29/17 10:42:00 [employer] Al 2016-05 No Notes: Memoria hydroxide/M 0-17 [...] Duration: 30 day, Stop date: 03/29/17 10:42:00 [employer] dexamethaso 2016-05 No Route: IV, Memoria ne [...] INJ (ANES) 0-17 Total l 14:18: Volume: [place] 00 1,000, Start date: 02/27/17 9:18:00 CDT, Stop date: 02/27/17 10:18:00 CDT LR 1000 mL 2016-05 No Route: IV, M emoria INJ (ANES) 0-17 Total l 14:18: Volume: Rocky 00 1,000, Start date: 02/27/17 9:18:00 CDT, Stop date: 02/27/17 10:18:00 CDT LR 1000 mL 2016-05 No Route: IV, M emoria INJ (ANES) 0-17 Total l 14:18: Volume: [place] 00 1,000, Start date: 02/27/17 9:18:00 CDT, Stop date: 02/27/17 10:18:00 CDT LR 1000 mL 2016-05 No Route: IV, M emoria INJ (ANES) 0-17 Total l 14:18: Volume: Rocky 00 1,000, Start date: 02/27/17 9:18:00 CDT, Stop date: 02/27/17 10:18:00 CDT Calcium 2016-05 No 1,000 mL, Memor ia Chloride 0-17 Rate: 25 l 0.0014 13:24: ml/hr, [place] MEQ/ML / 00 Infuse Potassium over: 40 Chloride hr, Route: 0.004 IV, Dosing MEQ/ML / Weight Sodium 57.864 kg, Chloride Total 0.103 Volume: MEQ/ML / 1,000, Sodium Start Lactate date: 0.028 02/27/17 MEQ/ML 8:24:00 Injectable CDT, Solution Duration: 30 day, Stop date: 03/29/17 8:23:00 [employer] Calcium 2016-05 No 1,000 mL, Memor ia Chloride 0-17 Rate: 25 l 0.0014 13:24: ml/hr, Rocky MEQ/ML / 00 Infuse Potassium over: 40 Chloride hr, Route: 0.004 IV, Dosing MEQ/ML / Weight Sodium 57.864 kg, Chloride Total 0.103 Volume: MEQ/ML / 1,000, Sodium Start Lactate date: 0.028 02/27/17 MEQ/ML 8:24:00 Injectable CDT, Solution Duration: 30 day, Stop date: 03/29/17 8:23:00 [employer] Calcium 2016-05 No 1,000 mL, Memor ia Chloride 0-17 Rate: 25 l 0.0014 13:24: ml/hr, Rocky MEQ/ML / 00 Infuse Potassium over: 40 Chloride hr, Route: 0.004 IV, Dosing MEQ/ML / Weight Sodium 57.864 kg, Chloride Total 0.103 Volume: MEQ/ML / 1,000, Sodium Start Lactate date: 0.028 02/27/17 MEQ/ML 8:24:00 Injectable CDT, Solution Duration: 30 day, Stop date: 03/29/17 8:23:00 [employer] Calcium 2016-05 No 1,000 mL, Memor ia Chloride 0-17 Rate: 25 l 0.0014 13:24: ml/hr, [place] MEQ/ML / 00 Infuse Potassium over: 40 Chloride hr, Route: 0.004 IV, Dosing MEQ/ML / Weight Sodium 57.864 kg, Chloride Total 0.103 Volume: MEQ/ML / 1,000, Sodium Start Lactate date: 0.028 02/27/17 MEQ/ML 8:24:00 Injectable CDT, Solution Duration: 30 day, Stop date: 03/29/17 8:23:00 [employer] ropivacaine 2016-05 No Notes: Memoria 0-17 NOT FOR IV l 13:00: use Rocky 00 Ropivacain e 5 mg/mL (49.25 mL) Epinephrin e 1 mg/mL (0.5 mL) Clonidine 0.1 mg/mL (0.8 mL) Ketorolac 30 mg/mL (1 mL) Normal Saline 48.45 mL gabapentin 2016-05 No 300 mg, Jhonathan jaime 0-17 Route: PO, l 13:00: ONCKisha RAMOS Dosing Weight 57.864, kg, Start date: 02/27/17 8:00:00 CDT, Duration: 30 day, Stop date: 03/29/17 6:59:00 [employer] celecoxib 2017- No 90 Memoria 0-17 mL/min), l 13:00: Start date: 02/27/17 8:00:00 CDT, Duration: 30 day, Stop date: 03/29/17 6:59:00 [employer] ropivacaine 2017- No Notes: Memoria 0-17 NOT FOR IV l 13:00: use Ropivacain e 5 mg/mL (49.25 mL) Epinephrin e 1 mg/mL (0.5 mL) Clonidine 0.1 mg/mL (0.8 mL) Ketorolac 30 mg/mL (1 mL) Normal Saline 48.45 mL gabapentin 2016-05 No 300 mg, Jhonathan jaime 0-17 Route: PO, l 13:00: MALIKKishaOrcky 00 Dosing Weight 57.864, kg, Start date: 02/27/17 8:00:00 CDT, Duration: 30 day, Stop date: 03/29/17 6:59:00 [employer] celecoxib 2017- No 90 Memoria 0-17 mL/min), l 13:00: Start date: 02/27/17 8:00:00 CDT, Duration: 30 day, Stop date: 03/29/17 6:59:00 [employer] ropivacaine 2017- No Notes: Memoria 0-17 NOT [...] Duration: 30 day, Stop date: 03/29/17 6:59:00 [employer] celecoxib 2016-05 No 90 Memoria 0-17 mL/min), l 13:00: Start date: 02/27/17 8:00:00 CDT, Duration: 30 day, Stop date: 03/29/17 6:59:00 [employer] ropivacaine 2016-05 No Notes: Memoria 0-17 NOT [...] Duration: 30 day, Stop date: 03/29/17 6:59:00 [employer] celecoxib 2016-05 No 90 Memoria 0-17 mL/min), l 13:00: Start date: 02/27/17 8:00:00 CDT, Duration: 30 day, Stop date: 03/29/17 6:59:00 [employer] 0.3 ML 2016-05 Yes 30 mg, Memoria [...] 0.833 MG/ML 0-04 (Same as: :43: Duoneb) [place] Ipratropium 00 [place] 0.167 MG/ML Inhalant Solution sodium 2016-05 No [...] 0.833 MG/ML 0-04 (Same as: :43: Duoneb) Rocky Ipratropium 00 [place] 0.167 MG/ML Inhalant Solution sodium 2016-05 No [...] 0.833 MG/ML 0-04 (Same as: 43: Duoneb) [place] Ipratropium 00 [place] 0.167 MG/ML Inhalant Solution sodium 2016-05 No [...] 0.833 MG/ML 0-04 (Same as: 43: Duoneb) [place] Ipratropium 00 [place] 0.167 MG/ML Inhalant Solution sodium 2016-05 No 500 mL, Memoria chloride 0-04 Rate: 25 l 0.9% 500 ml 17:43: ml/hr, Herm steph INJ 500 mL 00 Infuse over: 20 hr, Route: IV, Dosing Weight 59.545 kg, Total Volume: 500, Start date: 02/14/17 12:43:00 CDT, Duration: 1 day, Stop date: 02/15/17 12:42:00 CDT Zofran No Notes: Memoria 4-12 (Same as: l 19:53: Zofran) Rocky 00 MEDICATION WASTE Product Size: 4 mg Product Wasted: ___ mg Zofran No Notes: Memoria 4-12 (Same as: l 19:53: Zofran) Rocky 00 MEDICATION WASTE Product Size: 4 mg Product Wasted: ___ mg Zofran No Notes: Memoria 4-12 (Same as: l 19:53: Zofran) Rocky 00 MEDICATION WASTE Product Size: 4 mg Product Wasted: ___ mg Zofran 2017-0 No Notes: Memoria - (Same as: l 19:53: Zofran) [place] 00 MEDICATION WASTE Product Size: 4 mg Product Wasted: ___ mg Albuterol 2017-0 No 2.49 mg, Jhonathan jaime 0.83 MG/ML 08-23 Route: l Inhalant 19:49: NEB, [place] Solution 00 Q20Min, Dosing Weight 59.091, kg, [...] Mem oria 08-23 Route: l 19:49: IVP, [place] 00 Q30Min, Dosing Weight 59.091, kg, PRN [...] 4-12 Route: PO, l 19:49: Drug form: [place] 00 TAB, Q4H, Dosing Weight 59.091, kg, [...] Memori a 4-12 Route: l 19:49: IVP, [place] 00 Q5Min, Dosing Weight 59.091, kg, PRN [...] 2017-0 No 6.25 mg, Me moria e 12 Route: l 19:49: IVPB, Rocky 00 ONCE, Dosing Weight 59.091, kg, PRN Nausea & Vomiting, Start date: 08/23/16 14:49:00 CDT Meperidine 2017-0 No 12.5 mg, Mem oria 12 Route: l 19:49: IVP, [place] 00 Q30Min, Dosing Weight 59.091, kg, PRN [...] mg, Memoria 4-12 Route: l 19:49: IVP, [place] 00 Q5Min, Dosing Weight 59.091, kg, PRN Other -See Comment, Start date: 08/23/16 14:49:00 CDT, Duration: 5 doses or times, Stop date: Limited # of times Labetalol 2017-0 No 10 mg, Memori a 4-12 Route: l 19:49: IVP, [place] 00 Q5Min, Dosing Weight 59.091, kg, PRN Elevated BP, Start date: 08/23/16 14:49:00 CDT, Duration: 5 doses or times, Stop date: Limited # of times Hydralazine 2017-0 No 10 mg, Jhonathan jaime 4-12 Route: l 19:49: IVP, [place] 00 Q20Min, Dosing Weight 59.091, kg, PRN [...] oria ne 08-23 Route: l 19:49: IVP, [place] 00 Q5Min, Dosing Weight 59.091, kg, PRN [...] Memori a 08-23 Route: l 19:49: IVP, [place] 00 Q2MIN, Dosing Weight 59.091, kg, PRN Narcotic Reversal, Start date: 08/23/16 14:49:00 CDT, Duration: 8 doses or times, Stop date: Limited # of times Albuterol 2017-0 No 2.49 mg, Jhonathan jaime 0.83 MG/ML 08-23 Route: l Inhalant 19:49: NEB, [place] Solution 00 Q20Min, Dosing Weight 59.091, kg, [...] moria e 4-12 Route: l 19:49: IVPB, Rocky 00 ONCE, [...] ia 4-12 Route: l 19:49: IVP, ONCE, [place] 00 Dosing Weight 59.091, kg, PRN Nausea & Vomiting, Start date: 08/23/16 14:49:00 CDT Oxycodone 2017-0 No 5 mg, Memoria 4-12 Route: PO, l 19:49: Drug form: [place] 00 TAB, Q4H, Dosing Weight 59.091, kg, PRN Pain Score 4-6, Start date: 08/23/16 14:49:00 CDT, Duration: 30 day, Stop date: 09/22/16 14:48:00 CDT esmolol 2017-0 No 10 mg, Memoria 4-12 Route: l 19:49: IVP, [place] 00 Q5Min, Dosing Weight 59.091, kg, PRN [...] Flumazenil 2017-0 No 0.2 mg, Jhonathan jaime 412 Route: l 19:49: IVP, PRN, [place] 00 Dosing Weight 59.091, kg, PRN Benzodiaze pine Reversal, Initial dose, Start date: 08/23/16 14:49:00 CDT, Duration: 30 day, Stop date: 09/22/16 14:48:00 CDT Hydromorpho 2017-0 No 0.5 mg, Mem oria ne 08-23 Route: l 19:49: IVP, [place] 00 Q5Min, Dosing Weight 59.091, kg, PRN Pain Score 7-10, Start date: 08/23/16 14:49:00 CDT, Duration: 4 doses or times, Stop date: Limited # of times Calcium 2017-0 No 1,000 mL, Memor ia Chloride 08-23 Rate: 125 l 0.0014 19:49: ml/hr, [place] MEQ/ML / 00 Infuse Potassium over: 8 [...] moria e 4-12 Route: l 19:49: IVPB, Rocky 00 ONCE, [...] ia 4-12 Route: l 19:49: IVP, ONCE, [place] 00 Dosing Weight 59.091, kg, PRN Nausea & Vomiting, Start date: 08/23/16 14:49:00 CDT Oxycodone 2017-0 No 5 mg, Memoria 4-12 Route: PO, l 19:49: Drug form: [place] 00 TAB, Q4H, Dosing Weight 59.091, kg, [...] Memori a 4-12 Route: l 19:49: IVP, [place] 00 Q5Min, Dosing Weight 59.091, kg, PRN Elevated BP, Start date: 08/23/16 14:49:00 CDT, Duration: 5 doses or times, Stop date: Limited # of times Hydralazine 2017-0 No 10 mg, Jhonathan jaime 4-12 Route: l 19:49: IVP, [place] 00 Q20Min, Dosing Weight 59.091, kg, PRN [...] 2017-0 No 0.5 mg, Mem oria ne 412 Route: l 19:49: IVP, [place] 00 Q5Min, Dosing Weight 59.091, kg, PRN Pain Score 7-10, Start date: 08/23/16 14:49:00 CDT, Duration: 4 doses or times, Stop date: Limited # of times Calcium 2017-0 No 1,000 mL, Memor ia Chloride 12 Rate: 125 l 0.0014 19:49: ml/hr, [place] MEQ/ML / 00 Infuse Potassium over: 8 [...] 2017-0 No 3 mL, Memoria 0.833 MG/ML 412 Route: l / 17:45: NEB, [place] Ipratropium 00 Dosing [place] Weight 0.167 MG/ML 59.091, Inhalant kg, ONCE, Solution STAT, Start date: 08/23/16 12:45:00 CDT, Stop date: 08/23/16 12:45:00 CDT Calcium 2017-0 No 1,000 mL, Memor ia Chloride 412 Rate: 25 l 0.0014 17:45: ml/hr, Rocky [...] l :45: NEB, Rocky Ipratropium 00 Dosing [place] Weight 0.167 MG/ML 59.091, Inhalant kg, ONCE, Solution STAT, Start date: 08/23/16 12:45:00 CDT, Stop date: 08/23/16 12:45:00 CDT Calcium 2017-0 No 1,000 mL, Memor ia Chloride 4 Rate: 25 l 0.0014 17:45: ml/hr, [place] MEQ/ML / 00 Infuse Potassium over: 40 Chloride hr, Route: 0.004 IV, Dosing MEQ/ML / Weight Sodium 59.091 kg, Chloride Total 0.103 Volume: MEQ/ML / 1,000, Sodium Start Lactate date: 0.028 08/23/16 MEQ/ML 12:45:00 Injectable CDT, Solution Duration: 30 day, Stop date: 09/22/16 12:44:00 CDT Albuterol 2017-0 No 3 mL, Memoria 0.833 MG/ML 412 Route: l 17:45: NEB, [place] Ipratropium 00 Dosing [place] Weight 0.167 MG/ML 59.091, Inhalant kg, ONCE, Solution STAT, Start date: 08/23/16 12:45:00 CDT, Stop date: 08/23/16 12:45:00 CDT Calcium 2017-0 No 1,000 mL, Memor ia Chloride 4-12 Rate: 25 l 0.0014 17:45: ml/hr, Rocky MEQ/ML / 00 Infuse Potassium over: 40 Chloride hr, Route: 0.004 IV, Dosing MEQ/ML / Weight Sodium 59.091 kg, Chloride Total 0.103 Volume: MEQ/ML / 1,000, Sodium Start Lactate date: 0.028 08/23/16 MEQ/ML 12:45:00 Injectable CDT, Solution Duration: 30 day, Stop date: 09/22/16 12:44:00 CDT Albuterol 2017-0 No 3 mL, Memoria 0.833 MG/ML 412 Route: l / 17:45: NEB, Rocky Ipratropium 00 Dosing [place] Weight 0.167 MG/ML 59.091, Inhalant kg, ONCE, Solution STAT, Start date: 08/23/16 12:45:00 CDT, Stop date: 08/23/16 12:45:00 CDT Calcium 2017-0 No 1,000 mL, Memor ia Chloride 412 Rate: 25 l 0.0014 17:45: ml/hr, [place] MEQ/ML / 00 Infuse Potassium over: 40 [...] Total Volume: 1,000, Start date: 06/19/16 10:43:00 [employer], Duration: 30 day, Stop date: 07/19/16 10:42:00 [employer]ER Sodium 2017-0 No 1,000 mL, Memori a Chloride 2-06 Rate: 25 l 0.154 16:43: ml/hr, [place] MEQ/ML 00 Infuse Injectable over: 40 Solution hr, Route: IV, Dosing Weight 60.455 kg, Total Volume: 1,000, Start date: 06/19/16 10:43:00 M[employer], Duration: 30 day, Stop date: 07/19/16 10:42:00 [employer] REPAIRER Sodium 2017-0 No 1,000 mL, Memori a Chloride 2-06 Rate: 25 l 0.154 16:43: ml/hr, [place] MEQ/ML 00 Infuse Injectable over: 40 Solution hr, Route: IV, Dosing Weight 60.455 kg, Total Volume: 1,000, Start date: 06/19/16 10:43:00 M[employer] RE[employer]IRER, Duration: 30 day, Stop date: 07/19/16 10:42:00 [employer] RE[employer]ER Sodium 2017-0 No 1,000 mL, Memori a Chloride 2-06 Rate: 25 l 0.154 16:43: ml/hr, Rocky MEQ/ML 00 Infuse Injectable over: 40 Solution hr, Route: IV, Dosing Weight 60.455 kg, Total Volume: 1,000, Start date: 06/19/16 10:43:00 [employer], Duration: 30 day, Stop date: 07/19/16 10:42:00 [employer]ER Fish Oil 2017-0 Yes PO, 0 Memoria 2-06 Refill(s) l 16:40: [place] 00 Fish Oil 2017-0 Yes PO, 0 Memoria 2-06 Refill(s) l 16:40: Rocky 00 Fish Oil 2017-0 Yes PO, 0 Memoria 2-06 Refill(s) l 16:40: [place] 00 Fish Oil 2017-0 Yes PO, 0 Memoria 2-06 Refill(s) l 16:40: Rocky 00 Sodium 2016-1 No 1,000 mL, Memori a Chloride 0-04 Rate: 25 l 0.154 14:09: ml/hr, [place] MEQ/ML 00 Infuse Injectable over: 40 Solution hr, Route: IV, Dosing Weight 60.511 kg, Total Volume: 1,000, Start date: 02/15/16 9:09:00 CDT, Duration: 1 day, Stop date: 02/16/16 9:08:00 CDT Sodium 2016-1 No 1,000 mL, Memori a Chloride 0-04 Rate: 25 l 0.154 14:09: ml/hr, [place] MEQ/ML 00 Infuse Injectable over: 40 Solution [...] 9-26 0 l 18:15: Refill(s) Rocky biotin 2015-0 Yes PO, Daily, Memor ia 9-26 0 l 18:15: Refill(s) Spurger biotin 2016-0 Yes PO, Daily, Memor ia 9-26 0 l 18:15: Refill(s) Spurger biotin 2016-0 Yes PO, Daily, Memor ia 9-26 0 l 18:15: Refill(s) Rocky 00 Promethazin No 6.25 mg, Me moria e 5-17 Route: l 18:41: IVPB, Spurger 00 ONCE, Dosing Weight 57.727, kg, PRN Nausea & Vomiting, Start date: 09/28/15 13:41:00 CDT Ondansetron No 4 mg, Memor ia 5-17 Route: l 18:41: IVP, ONCE, Spurger 00 Dosing Weight 57.727, kg, PRN Nausea & Vomiting, Start date: 09/28/15 13:41:00 CDT Diphenhydra 2015-0 No 12.5 mg, Me moria mine 09-27 Route: l 18:41: IVP, Drug Spurger 00 form: INJ, Q6H, Dosing Weight 57.727, kg, PRN Itching, Start date: 09/28/15 13:41:00 CDT, Duration: 30 day, Stop date: 10/28/15 13:40:00 CDT Albuterol 2015-0 No 2.49 mg, Jhonathan jaime 0.83 MG/ML 09-27 Route: l Inhalant 18:41: NEB, Spurger Solution 00 Q20Min, Dosing Weight 57.727, kg, PRN Wheezing, Priority: STAT, Start date: 09/28/15 13:41:00 CDT, Duration: 30 day, Stop date: 10/28/15 13:40:00 CDT Naloxone 2015-0 No 0.04 mg, Memor ia 09-27 Route: l 18:41: IVP, Spurger 00 Q2MIN, Dosing Weight 57.727, kg, PRN [...] 09-27 Rate: 125 l 0.154 18:41: ml/hr, Spurger MEQ/ML 00 Infuse Injectable over: 4 Solution [...] oria ne 5-17 Route: l 18:41: IVP, Spurger 00 Q5Min, Dosing Weight 57.727, kg, PRN Pain Score 7-10, Start date: 09/28/15 13:41:00 CDT, Duration: 4 doses or times, Stop date: Limited # of times Fentanyl 2016-0 No 25 Memoria 5-17 microgram, l 18:41: Route: Spurger 00 IVP, Q5Min, Dosing Weight 57.727, kg, [...] mine 09-27 Route: l 18:41: IVP, Drug Spurger 00 form: INJ, Q6H, Dosing Weight 57.727, [...] Memor ia 09-27 Route: l 18:41: IVP, Spurger 00 Q2MIN, Dosing Weight 57.727, kg, PRN [...] oria ne 5-17 Route: l 18:41: IVP, Spurger 00 Q5Min, Dosing Weight 57.727, kg, PRN [...] 5-17 Route: PO, l 18:41: Drug form: Spurger 00 TAB, Q4H, Dosing Weight 57.727, kg, PRN Pain Score 7-10, Start date: 09/28/15 13:41:00 CDT, Duration: 30 day, Stop date: 10/28/15 13:40:00 CDT Promethazin 2015-0 No 6.25 mg, Me moria e 5-17 Route: l 18:41: IVPB, Sp[place] 00 ONCE, Dosing Weight 57.727, kg, PRN [...] MG/ML 09-27 Route: l Inhalant 18:41: NEB, Sp[place] Solution 00 Q20Min, Dosing Weight 57.727, kg, [...] 09-27 Rate: 125 l 0.154 18:41: ml/hr, Spurger MEQ/ML 00 Infuse Injectable over: 4 Solution [...] Mem oria 5-17 Route: l 18:41: IVP, Spurger 00 Q30Min, Dosing Weight 57.727, kg, PRN [...] moria e 09-27 Route: l 18:41: IVPB, Spurger 00 ONCE, Dosing Weight 57.727, kg, PRN Nausea & Vomiting, Start date: 09/28/15 13:41:00 CDT Ondansetron 2015-0 No 4 mg, Memor ia 09-27 Route: l 18:41: IVP, ONCE, Spurger 00 Dosing Weight 57.727, kg, PRN Nausea [...] MG/ML 09-27 Route: l Inhalant 18:41: NEB, Sp[place] Solution 00 Q20Min, Dosing Weight 57.727, kg, [...] 09-27 Rate: 125 l 0.154 18:41: ml/hr, Spurger MEQ/ML 00 Infuse Injectable over: 4 Solution hr, Route: IV, Dosing Weight 57.727 kg, Total Volume: 500, Start date: 09/28/15 13:41:00 CDT, Duration: 30 day, Stop date: 10/28/15 13:40:00 CDT Glucose 50 2016-0 No 1,000 mL, Me moria MG/ML / 5-17 Rate: 125 l Sodium 18:41: ml/hr, Spurger Chloride 00 Infuse 0.154 over: 8 MEQ/ML hr, Route: Injectable IV, Dosing Solution Weight 57.727 kg, Total Volume: 1,000, Start date: 09/28/15 13:41:00 CDT, Duration: 30 day, Stop date: 10/28/15 13:40:00 CDT Meperidine 2016-0 No 12.5 mg, Mem oria 5-17 Route: l 18:41: IVP, Sp[place] 00 Q30Min, Dosing Weight 57.727, kg, PRN [...] 25 Memoria 5-17 microgram, l 18:41: Route: Spurger 00 IVP, Q5Min, Dosing Weight 57.727, kg, [...] ONCE, Stop date: 09/28/15 13:09:00 CDT Lactated 2016-0 No Route: IV, Mem oria Ringers 5-17 Total l Injection 17:10: Volume: Adela nn IV (ANES) 00 1,000, (ANES) Start date: 09/28/15 12:10:00 CDT, Stop date: 09/28/15 13:10:00 CDT Lactated 2016-0 No Route: IV, Mem oria Ringers 5-17 Total l Injection 17:10: Volume: Adela nn IV (ANES) 00 1,000, (ANES) Start date: 09/28/15 12:10:00 CDT, Stop date: 09/28/15 13:10:00 CDT Lactated No Route: IV, Mem oria Ringers 5-17 Total l Injection 17:10: Volume: Adela nn IV (ANES) 00 1,000, (ANES) Start date: 09/28/15 12:10:00 CDT, Stop date: 09/28/15 13:10:00 CDT Lactated No Route: IV, Mem oria Ringers 5-17 Total l Injection 17:10: Volume: Adela nn IV (ANES) 00 1,000, (ANES) Start date: 09/28/15 12:10:00 CDT, Stop date: 09/28/15 13:10:00 CDT heparin Yes Notes: Memoria sodium, 5-17 porcine l porcine 16:06: heparin Sp[place] 2500 UNT/ML 00 Injectable Solution heparin Yes Notes: Memoria sodium, 5-17 porcine l porcine 16:06: heparin Rocky 2500 UNT/ML 00 Injectable Solution heparin Yes Notes: Memoria sodium, 5-17 porcine l porcine 16:06: heparin Rocky 2500 UNT/ML 00 Injectable Solution heparin Yes Notes: Memoria sodium, 5-17 porcine l porcine 16:06: heparin [place] 2500 UNT/ML 00 Injectable Solution Calcium No 1,000 mL, Memor ia Chloride 09-27 Rate: 25 l 0.0014 16:04: ml/hr, Spurger MEQ/ML / 00 Infuse Potassium over: 40 Chloride hr, Route: 0.004 IV, Dosing MEQ/ML / Weight Sodium 57.727 kg, Chloride Total 0.103 Volume: MEQ/ML / 1,000, Sodium Start Lactate date: 0.028 09/28/15 MEQ/ML 11:04:00 Injectable CDT, Solution Duration: 30 day, Stop date: 10/28/15 11:03:00 CDT Sodium No 500 mL, Memoria Chloride 09-27 Rate: 125 l 0.154 16:04: ml/hr, Spurger MEQ/ML 00 Infuse Injectable over: 4 Solution [...] moria 5-17 Rate: 25 l 16:04: ml/hr, Spurger 00 Infuse over: 40 hr, Route: IV, Dosing Weight 57.727 kg, Total Volume: 1,000, Start date: 09/28/15 11:04:00 CDT, Duration: 30 day, Stop date: 10/28/15 11:03:00 CDT Calcium 2016-0 No 1,000 mL, Memor ia Chloride 5-17 Rate: 25 l 0.0014 16:04: ml/hr, Spurger MEQ/ML / 00 Infuse Potassium over: 40 [...] 5-17 Rate: 25 l Sodium 16:04: ml/hr, Sp[place] Chloride 00 Infuse 0.154 over: 40 MEQ/ML hr, Route: Injectable IV, Dosing Solution Weight 57.727 kg, Total Volume: 1,000, Start date: 09/28/15 11:04:00 CDT, Duration: 30 day, Stop date: 10/28/15 11:03:00 CDT Normosol-R 2016-0 No 1,000 mL, Me moria 5-17 Rate: 25 l 16:04: ml/hr, Spurger 00 Infuse over: 40 hr, Route: IV, Dosing Weight 57.727 kg, Total Volume: 1,000, Start date: 09/28/15 11:04:00 CDT, Duration: 30 day, Stop date: 10/28/15 11:03:00 CDT Calcium 2016-0 No 1,000 mL, Memor ia Chloride 5-17 Rate: 25 l 0.0014 16:04: ml/hr, Spurger MEQ/ML / 00 Infuse Potassium over: 40 Chloride hr, Route: 0.004 IV, Dosing MEQ/ML / Weight Sodium 57.727 kg, Chloride Total 0.103 Volume: MEQ/ML / 1,000, Sodium Start Lactate date: 0.028 09/28/15 MEQ/ML 11:04:00 Injectable CDT, Solution Duration: 30 day, Stop date: 10/28/15 11:03:00 CDT Sodium 2016-0 No 500 mL, Memoria Chloride 5-17 Rate: 125 l 0.154 16:04: ml/hr, Sp[place] MEQ/ML 00 Infuse Injectable over: 4 Solution hr, Route: IV, Dosing Weight 57.727 kg, Total Volume: 500, Start date: 09/28/15 11:04:00 CDT, Duration: 30 day, Stop date: 10/28/15 11:03:00 CDT Glucose 50 2016-0 No 1,000 mL, Me moria MG/ML / 5-17 Rate: 25 l Sodium 16:04: ml/hr, [place] Chloride 00 Infuse 0.154 over: 40 MEQ/ML [...] 2016-0 No 1,000 mL, Memor ia Chloride -17 Rate: 25 l 0.0014 16:04: ml/hr, Rocky [...] 5-17 Rate: 125 l 0.154 16:04: ml/hr, Sp[place] MEQ/ML 00 Infuse Injectable over: 4 Solution [...] moria 5-17 Rate: 25 l 16:04: ml/hr, Infuse over: 40 hr, Route: IV, Dosing Weight 57.727 kg, Total Volume: 1,000, Start date: 09/28/15 11:04:00 CDT, Duration: 30 day, Stop date: 10/28/15 11:03:00 CDT Unknown Yes Refill(s) Memor ia Home 5-17 0 l Medication 14:33: Vitamin B12 0 Yes 500 Memori a 500 mcg 5-17 microgram l oral tablet 14:33: = 1 tab, He rmann 00 PO, Daily, # 30 tab, 0 Refill(s) Unknown Yes Refill(s) [facility] Home 5-17 0 l Medication 14:33: Vitamin B12 2015-0 Yes 500 Memori a 500 mcg 5-17 microgram l oral tablet 14:33: = 1 tab, He rmann 00 PO, Daily, # 30 tab, 0 Refill(s) Unknown Yes Refill(s) [facility] Home 5-17 0 l Medication 14:33: Vitamin B12 0 Yes 500 Memori a 500 mcg 5-17 microgram l oral tablet 14:33: = 1 tab, He rmann 00 PO, Daily, # 30 tab, 0 Refill(s) Unknown Yes Refill(s) [facility] Home 5-17 0 l Medication 14:33: Vitamin B12 0 Yes 500 Memori a 500 mcg 5-17 microgram l oral tablet 14:33: = 1 tab, He rmann 00 PO, Daily, # 30 tab, 0 Refill(s) Amlodipine 2016-0 Yes [...] [Norvasc] 00 30 tab, 0 Refill(s) Amlodipine 2016- Yes 2.5 mg = 1 M emoria 2.5 MG Oral 5-17 tab, PO, l Tablet 14:32: Daily, # Spurger [Norvasc] 00 30 tab, 0 Refill(s) Protonix 2015-0 No Notes: For Mem oria 2-25 IV push l 15:00: reconstitu Spurger 00 te with 10 ml 0.9% sodium chloride and push over 2 minutes. (Same as: Protonix) Fish Oil No 1,000 mg, Jhonathan jaime 2-25 Route: PO, l 15:00: Drug form: Spurger 00 CAP, Daily, Dosing Weight 55.909, kg, Start date: 07/08/15 9:00:00, Duration: 30 day, Stop date: 08/06/15 9:00:00 Protonix 2015-0 No Notes: For Mem oria 2-25 IV push l 15:00: reconstitu Rocky 00 te with 10 ml 0.9% sodium chloride and push over 2 minutes. (Same as: Protonix) Fish Oil No 1,000 mg, Jhonathan jaime 2-25 Route: PO, l 15:00: Drug form: Spurger 00 CAP, Daily, Dosing Weight 55.909, kg, Start date: 07/08/15 9:00:00, Duration: 30 day, Stop date: 08/06/15 9:00:00 Protonix 2015-0 No Notes: For Mem oria 2-25 IV push l 15:00: reconstitu Spurger 00 te with 10 ml 0.9% sodium chloride and push over 2 minutes. (Same as: Protonix) Fish Oil No 1,000 mg, Jhonathan jaime 2-25 Route: PO, l 15:00: Drug form: Rocky 00 CAP, Daily, Dosing Weight 55.909, kg, Start date: 07/08/15 9:00:00, Duration: 30 day, Stop date: 08/06/15 9:00:00 Protonix 2016-0 No Notes: For Mem oria 2-25 IV push l 15:00: reconstitu Spurger 00 te with 10 ml 0.9% sodium chloride and push over 2 minutes. (Same as: Protonix) Fish Oil No 1,000 mg, Jhonathan jaime 2-25 Route: PO, l 15:00: Drug form: Spurger 00 CAP, Daily, Dosing Weight 55.909, kg, Start date: 07/08/15 9:00:00, Duration: 30 day, Stop date: 08/06/15 9:00:00 Lisinopril No Notes: Memor ia 2-25 (Same as: l 03:00: Prinivil, Spurger 00 Zestril) Lisinopril No Notes: Memor ia 2-25 (Same as: l 03:00: Prinivil, Sp[place] 00 Zestril) Lisinopril No Notes: Memor ia 2-25 (Same as: l 03:00: Prinivil, Spurger 00 Zestril) Lisinopril No Notes: Memor ia 2-25 (Same as: l 03:00: Prinivil, Spurger 00 Zestril) NURSE - No NURSE - [...] MG/ML 2-24 (Same l Oral 19:21: as:Chronul [place] Solution 00 ac) Lactulose No Notes: Memori a 667 MG/ML 2-24 (Same l Oral 19:21: as:Chronul Rocky Solution 00 ac) Lactulose No Notes: Memori a 667 MG/ML 2-24 (Same l Oral 19:21: as:Chronul [place] Solution 00 ac) Lactulose No Notes: Memori a 667 MG/ML 2-24 (Same l Oral 19:21: as:Chronul Rocky Solution 00 ac) Amoxicillin 2015-0 Yes 5 ml, PO, M emoria 50 MG/ML / 2-24 Q12H, X 7 l Clavulanate 19:18: day, # 70 H ermann 12.5 MG/ML 00 ml, 0 Oral Refill(s), Suspension called to [Augmentin] pharmacy Amoxicillin 0 Yes 5 ml, PO, M emoria 50 MG/ML / 2-24 Q12H, X 7 l Clavulanate 19:18: day, # 70 H ermann 12.5 MG/ML 00 ml, 0 Oral Refill(s), Suspension called to [Augmentin] pharmacy Amoxicillin 0 Yes 5 ml, PO, M emoria 50 [...] 2-24 PO, Daily, l oral 19:16: 0 Spurger capsule 00 Refill(s) Fish Oil Yes 1,000 mg, Jhonathan jaime 1000 mg 2-24 PO, Daily, l oral 19:16: 0 Spurger capsule 00 Refill(s) Fish Oil Yes 1,000 mg, Jhonathan jaime 1000 mg 2-24 PO, Daily, l oral 19:16: 0 Spurger capsule 00 Refill(s) Fish Oil Yes 1,000 mg, Jhonathan jaime 1000 mg 2-24 PO, Daily, l oral 19:16: 0 Spurger capsule 00 Refill(s) Protonix No Notes: For Mem oria 2-24 IV push l 16:53: reconstitu Rocky 00 te with 10 ml 0.9% sodium chloride and push over 2 minutes. (Same as: Protonix) Protonix No Notes: For Mem oria 2-24 IV push l 16:53: reconstitu Spurger 00 te with 10 ml 0.9% sodium chloride and push over 2 minutes. (Same as: Protonix) Protonix No Notes: For Mem oria 2-24 IV push l 16:53: reconstitu Spurger 00 te with 10 ml 0.9% sodium chloride and push over 2 minutes. (Same as: Protonix) Protonix No Notes: For Mem oria 2-24 IV push l 16:53: reconstitu Rocky 00 te with 10 ml 0.9% sodium chloride and push over 2 minutes. (Same as: Protonix) Fleet Enema No 133 mL, Mem oria 2-24 Route: MN, l 14:54: Dosing Spurger 00 Weight 55.909, kg, ONCE, Start date: 07/07/15 8:54:00, Stop date: 07/07/15 8:54:00 Fleet Enema 0 No 133 mL, Mem oria 2-24 Route: MN, l 14:54: Dosing Rocky 00 Weight 55.909, kg, ONCE, Start date: 07/07/15 8:54:00, Stop date: 02/24/16 8:54:00 Fleet Enema 2015-0 No 133 mL, Mem oria 2-24 Route: MN, l 14:54: Dosing Rocky Weight 55.909, kg, ONCE, Start date: 07/07/15 8:54:00, Stop date: 07/07/15 8:54:00 Fleet Enema 2015-0 No 133 mL, Mem oria 2-24 Route: MN, l 14:54: Dosing Rocky 00 Weight 55.909, kg, ONCE, Start date: 07/07/15 8:54:00, Stop date: 07/07/15 8:54:00 Zosyn 2015- No Notes: Memoria 2-24 (Same as: l 04:00: Zosyn) Spurger Dosing based on Piperacill in component Zosyn 2015-0 No Notes: Memoria 2-24 (Same as: l 04:00: Zosyn) Rocky Dosing based on Piperacill in component Zosyn 2015-0 No Notes: Memoria 2-24 (Same as: l 04:00: Zosyn) Spurger Dosing based on Piperacill in component Zosyn 2015-0 No Notes: Memoria 2-24 (Same as: l 04:00: Zosyn) Spurger Dosing based on Piperacill in component pantoprazol 2015-0 No Notes: For Memoria e 2-23 IV push l 22:58: reconstitu Spurger 00 te with 10 ml 0.9% sodium chloride and push over 2 minutes. (Same as: Protonix) Ondansetron No Notes: Jhonathan jaime 2-23 (Same as: l 22:58: Zofran) Spurger 00 MEDICATION WASTE Product Size: 4 mg Product Wasted: ___ mg pantoprazol No Notes: For Memoria e 2-23 IV push l 22:58: reconstitu Spurger 00 te with 10 ml 0.9% sodium chloride and push over 2 minutes. (Same as: Protonix) Ondansetron No Notes: Jhonathan jaime 2-23 (Same as: l 22:58: Zofran) Rocky 00 MEDICATION WASTE Product Size: 4 mg Product Wasted: ___ mg pantoprazol No Notes: For Memoria e 2-23 IV push l 22:58: reconstitu Spurger 00 te with 10 ml 0.9% sodium chloride and push over 2 minutes. (Same as: Protonix) Ondansetron No Notes: Jhonathan jaime 2-23 (Same as: l 22:58: Zofran) Spurger 00 MEDICATION WASTE Product Size: 4 mg Product Wasted: ___ mg pantoprazol No Notes: For Memoria e 2-23 IV push l 22:58: reconstitu Spurger 00 te with 10 ml 0.9% sodium chloride and push over 2 minutes. (Same as: Protonix) Ondansetron No Notes: Jhonathan jaime 2-23 (Same as: l 22:58: Zofran) Spurger 00 MEDICATION WASTE Product Size: 4 mg Product Wasted: ___ mg Enoxaparin No Notes: Memor ia 2-23 (Same as: l 22:00: Lovenox) Rocky 00 Enoxaparin No Notes: Memor ia 2-23 (Same as: l 22:00: Lovenox) Spurger 00 Enoxaparin No Notes: Memor ia 2-23 (Same as: l 22:00: Lovenox) Rocky Enoxaparin No Notes: Memor ia 2-23 (Same as: l 22:00: Lovenox) Spurger 00 D5W S No 1,000 mL, Mem oria 1,000 mL 2-23 Rate: 125 l 21:57: ml/hr, Spurger 00 Infuse over: 8 hr, Route: IV, Dosing Weight 57.545 kg, Total Volume: 1,000, Start date: 07/06/15 15:57:00, Duration: 30 day, Stop date: 08/05/15 15:56:00 D5W /2NS No 1,000 mL, Mem oria 1,000 mL 2-23 Rate: 125 l 21:57: ml/hr, Spurger 00 Infuse over: 8 hr, Route: IV, Dosing Weight 57.545 kg, Total Volume: 1,000, Start date: 07/06/15 15:57:00, Duration: 30 day, Stop date: 08/05/15 15:56:00 D5W /2NS 2016-0 No 1,000 mL, Mem oria 1,000 mL 2-23 Rate: 125 l 21:57: ml/hr, Rocky 00 Infuse over: 8 hr, Route: IV, Dosing Weight 57.545 kg, Total Volume: 1,000, Start date: 07/06/15 15:57:00, Duration: 30 day, Stop date: 08/05/15 15:56:00 D5W /2NS 2016-0 No 1,000 mL, Mem oria 1,000 mL 2-23 Rate: 125 l 21:57: ml/hr, Spurger 00 Infuse over: 8 hr, Route: IV, [...] TAB, 10 MG Oral Dosing Tablet Weight [[place] 58.182, 10/325] kg, Q6H, PRN Pain, Start [...] Ondansetron 2016-0 No 4 mg, Memor ia 07-02 Route: l 22:01: IVP, ONCE, Dosing Weight 57.545, kg, PRN Nausea & Vomiting, Start date: 07/02/15 16:01:00 Fentanyl 2016-0 No 50 Memoria 2-19 microgram, l 22:01: Route: Rocky 00 IVP, Q5Min, Dosing Weight 57.545, kg, PRN Pain Score 7-10, Start date: 07/02/15 16:01:00, Duration: 2 doses or times, Stop date: Limited # of times Ketorolac 2016-0 No 30 mg, Memori a - Route: l 22:01: IVP, ONCE, Dosing [...] Naloxone 2016-0 No 0.04 mg, Memor ia 2- Route: l 22:01: IVP, [place] 00 Q2MIN, Dosing Weight 57.545, kg, PRN Narcotic Reversal, Start date: 07/02/15 16:01:00, Duration: 8 doses or times, Stop date: Limited # of times Acetaminoph 2016-0 No 1 tab, Jhonathan jaime en 325 MG / 2-19 Route: PO, l Hydrocodone 22:01: Drug Form: Rocky Bitartrate 00 TAB, 10 MG Oral Dosing Tablet Weight [[place] 58.182, 10/325] kg, Q6H, PRN Pain, Start date: 07/02/15 16:01:00, Duration: 30 day, Stop date: 08/01/15 16:00:00 Ofirmev 2016-0 No or = 50 Memori a 2-19 kg, Start l 22:01: date: Spurger 07/02/15 16:01:00 Oxycodone 2016-0 No 10 mg, [...] oria ne 2-19 Route: l 22:01: IVP, Sp[place] 00 Q5Min, Dosing Weight 57.545, kg, PRN Pain Score 7-10, Start date: 07/02/15 16:01:00, Duration: 4 doses or times, Stop date: Limited # of times Naloxone 2015-0 No 0.04 mg, Memor ia 2-19 Route: l 22:01: IVP, [place] 00 Q2MIN, Dosing Weight 57.545, kg, PRN Narcotic Reversal, Start date: 07/02/15 16:01:00, Duration: 8 doses or times, Stop date: Limited # of times Acetaminoph 2015-0 No 1 tab, Jhonathan jaime en 325 MG / 219 Route: PO, l Hydrocodone 22:01: Drug Form: Rocky Bitartrate 00 TAB, 10 MG Oral Dosing Tablet Weight [[place] 58.182, 10/325] kg, Q6H, PRN Pain, Start date: 07/02/15 16:01:00, Duration: 30 day, Stop date: 08/01/15 16:00:00 Ofirmev 2016-0 No or = 50 Memori a 2-19 kg, Start l 22:01: date: Spurger 00 07/02/15 16:01:00 Oxycodone 2016-0 No 10 mg, Memori a 2-19 Route: PO, l 22:01: Drug form: Spurger 00 TAB, Q4H, Dosing Weight 57.545, kg, PRN Pain Score 7-10, Start date: 07/02/15 16:01:00, Duration: 30 day, Stop date: 08/01/15 16:00:00 Ondansetron 2016-0 No 4 mg, Memor ia 2-19 Route: l 22:01: IVP, ONCE, Rocky 00 Dosing Weight 57.545, kg, PRN Nausea [...] or times, Stop date: 07/02/15 16:01:00 Flumazenil 2015-0 No 0.2 mg, Jhonathan jaime 2-19 Route: l 22:01: IVP, PRN, Rocky 00 Dosing Weight 57.545, kg, PRN Benzodiaze pine [...] Memor ia - Route: l 22:01: IVP, [place] 00 Q2MIN, Dosing Weight 57.545, kg, PRN Narcotic Reversal, Start date: 07/02/15 16:01:00, Duration: 8 doses or times, Stop date: Limited # of times Acetaminoph 2015-0 No 1 tab, Jhonathan jaime en 325 MG / 2-19 Route: PO, l Hydrocodone 22:01: Drug Form: [place] Bitartrate 00 TAB, 10 MG Oral Dosing Tablet Weight [[place] 58.182, 10/325] kg, Q6H, PRN Pain, Start date: 07/02/15 16:01:00, Duration: 30 day, Stop date: 08/01/15 16:00:00 Ofirmev 2016-0 No or = 50 Memori a 2-19 kg, Start l 22:01: date: Rocky 00 07/02/15 16:01:00 Oxycodone 2016-0 No 10 mg, Memori a 2-19 Route: PO, l 22:01: Drug form: Spurger TAB, Q4H, Dosing Weight 57.545, kg, PRN Pain Score 7-10, Start date: 07/02/15 16:01:00, Duration: 30 day, Stop date: 08/01/15 16:00:00 Ondansetron 2016-0 No 4 mg, Memor ia 2- Route: l 22:01: IVP, ONCE, Dosing Weight [...] Memor ia 2-19 Route: l 22:01: IVP, Spurger 00 Q2MIN, Dosing Weight 57.545, kg, PRN Narcotic Reversal, Start date: 07/02/15 16:01:00, Duration: 8 doses or times, Stop date: Limited # of times Hydralazine No Notes: Jhonathan jaime 2-19 (Same as: l 21:52: Apresoline Spurger 00 ) Push over 5 minutes Hydralazine 0 No Notes: Jhonathan jaime 2-19 (Same as: l 21:52: Apresoline Rocky 00 ) Push over 5 minutes Hydralazine No Notes: Jhonathan jaime 2-19 (Same as: l 21:52: Apresoline Rocky 00 ) Push over 5 minutes Hydralazine No Notes: Jhonathan jaime 2-19 (Same as: l 21:52: Apresoline Rocky 00 ) Push over 5 minutes ondansetron No Route: IV, Memoria (ANES) 2-19 Drug form: l 21:31: INJ, ONCE, Rocky Stop date: 07/02/15 15:31:00 ondansetron 0 No Route: IV, Memoria (ANES) 2-19 Drug form: l 21:31: INJ, ONCE, Spurger Stop date: 07/02/15 15:31:00 ondansetron 0 No Route: IV, Memoria (ANES) 2-19 Drug form: l 21:31: INJ, ONCE, Spurger Stop date: 07/02/15 15:31:00 ondansetron 0 No Route: IV, Memoria (ANES) 2-19 Drug form: l 21:31: INJ, ONCE, Rocky Stop date: 07/02/15 15:31:00 propofol 2015-0 No Route: IV, Mem oria (ANES) 2-19 Drug form: l 21:28: INJ, ONCE, Spurger Stop date: 07/02/15 15:28:00 propofol 2015-0 No Route: IV, Mem oria (ANES) 2-19 Drug form: l 21:28: INJ, ONCE, Rocky Stop date: 07/02/15 15:28:00 propofol 2015-0 No Route: IV, Mem oria (ANES) 2-19 Drug form: l 21:28: INJ, ONCE, Stop date: 07/02/15 15:28:00 propofol 2016-0 No Route: IV, Mem oria (ANES) 2-19 Drug form: l 21:28: INJ, ONCE, Stop date: 07/02/15 15:28:00 rocuronium 2016-0 No Route: IV, M emoria (ANES) 2-19 Drug form: l 21:26: INJ, ONCE, Stop date: 07/02/15 15:26:00 rocuronium 2016-0 No Route: IV, M emoria (ANES) 2-19 Drug form: l 21:26: INJ, ONCE, Stop date: 07/02/15 15:26:00 rocuronium 2016-0 No Route: IV, M emoria (ANES) 2-19 Drug form: l 21:26: INJ, ONCE, Stop date: 07/02/15 15:26:00 rocuronium 2016-0 No Route: IV, M emoria (ANES) 2-19 Drug form: l 21:26: INJ, ONCE, Stop date: 07/02/15 15:26:00 cefOXitin 2015-0 No Route: IV, Me moria (ANES) 2-19 [...] INJ, ONCE, Stop date: 07/02/15 15:22:00 Lactated 2016-0 No Route: IV, Mem oria Ringers 2-19 Total l Injection 20:30: Volume: Adela nn IV (ANES) 00 1,000, (ANES) Start date: 07/02/15 14:30:00, Stop date: 07/02/15 15:30:00 Lactated 2016-0 No Route: IV, Mem oria Ringers 2-19 Total l Injection 20:30: Volume: Adela nn IV (ANES) 00 1,000, (ANES) Start date: 07/02/15 14:30:00, Stop date: 07/02/15 15:30:00 Lactated 2016-0 No Route: IV, Mem oria Ringers 2-19 Total l Injection 20:30: Volume: Adela nn IV (ANES) 00 1,000, (ANES) Start date: 07/02/15 14:30:00, Stop date: 07/02/15 15:30:00 Lactated 2016-0 No Route: IV, Mem oria Ringers 2-19 Total l Injection 20:30: Volume: Adela nn IV (ANES) 00 1,000, (ANES) Start date: 07/02/15 14:30:00, Stop date: 07/02/15 15:30:00 Cefoxitin 2016-0 No 2 gm, Memoria 2-19 Route: l 19:01: IVPB, Rocky 00 ONCE, Dosing Weight 57.545, kg, tong hooker to OR, Start date: 07/02/15 13:01:00, Stop date: 07/02/15 13:01:00 Cefoxitin 2016-0 No 2 gm, Memoria 2-19 Route: l 19:01: IVPB, Rocky 00 ONCE, Dosing Weight 57.545, kg, tong hooker to OR, Start date: 07/02/15 13:01:00, Stop date: 07/02/15 13:01:00 Cefoxitin 2016-0 No 2 gm, Memoria 2-19 Route: l 19:01: IVPB, Spurger 00 ONCE, Dosing Weight 57.545, kg, tong hooker to OR, Start date: 07/02/15 13:01:00, Stop date: 07/02/15 13:01:00 Cefoxitin 2016-0 No 2 gm, Memoria 2-19 Route: l 19:01: IVPB, Spurger 00 ONCE, Dosing Weight 57.545, kg, tong hooker to OR, Start date: 07/02/15 13:01:00, Stop date: 07/02/15 13:01:00 heparin No Route: Memoria sodium, 2-19 SUB-Q, l porcine 18:58: ONCE, Rocky 2500 UNT/ML 00 Dosing Injectable Weight Solution 57.545, kg, Start date: 07/02/15 12:58:00, Stop date: 07/02/15 12:58:00 heparin No Route: Memoria sodium, 2-19 SUB-Q, l porcine 18:58: ONCE, Rocky 2500 UNT/ML 00 Dosing Injectable Weight Solution 57.545, kg, Start date: 07/02/15 12:58:00, Stop date: 07/02/15 12:58:00 heparin No Route: Memoria sodium, 2-19 SUB-Q, l porcine 18:58: ONCE, Rocky 2500 UNT/ML 00 Dosing Injectable Weight Solution 57.545, kg, Start date: 07/02/15 12:58:00, Stop date: 07/02/15 12:58:00 heparin No Route: Memoria sodium, 2-19 SUB-Q, l porcine 18:58: ONCE, Rocky 2500 UNT/ML 00 Dosing Injectable Weight Solution 57.545, kg, Start date: 07/02/15 12:58:00, Stop date: 07/02/15 12:58:00 Calcium 2015-0 No 1,000 mL, Memor ia Chloride 2-19 Rate: 25 l 0.0014 18:39: ml/hr, Spurger MEQ/ML / 00 Infuse Potassium over: 40 Chloride hr, Route: 0.004 IV, Dosing MEQ/ML / Weight Sodium 57.545 kg, Chloride Total 0.103 Volume: MEQ/ML / 1,000, Sodium Start Lactate date: 0.028 07/02/15 MEQ/ML 12:39:00, Injectable Duration: Solution 30 day, Stop date: 08/01/15 12:38:00 Calcium 2015-0 No 1,000 mL, Memor ia Chloride 2-19 [...] 2-19 Rate: 25 l 0.0014 18:39: ml/hr, Spurger MEQ/ML / 00 Infuse Potassium over: 40 [...] cap, PO, l oral 17:42: Daily, 0 Spurger capsule 00 Refill(s) omeprazole Yes 20 mg = 1 Me moria 20 mg oral 2-19 tab, PO, l enteric 17:42: BID, # 60 Adela nn coated 00 tab, 0 tablet Refill(s) Fish Oil 2016 Yes 1,000 mg = Mem oria 1000 [...] 2014-0 No 1,000 mL, Memor ia Chloride 3 Rate: 25 l 0.0014 14:33: ml/hr, Spurger MEQ/ML / 00 Infuse Potassium over: 40 Chloride hr, Route: 0.004 IV, Dosing MEQ/ML / Weight Sodium 58.182 kg, Chloride Total 0.103 Volume: MEQ/ML / 1,000, Sodium Start Lactate date: 0.028 08/11/14 MEQ/ML 9:33:00, Injectable Duration: Solution 30 day, Stop date: 09/10/14 9:32:00 Oxycodone 2014-0 No 5 mg, Memoria Hydrochlori 3 Route: PO, l de 5 MG 14:33: Drug form: Herm steph Oral Tablet 00 TAB, Q4H, Dosing Weight 58.182, kg, PRN Pain Score 4-6, Start date: 08/11/14 9:33:00, Duration: 30 day, Stop date: 09/10/14 9:32:00 Calcium 2014-0 No 1,000 mL, Memor ia Chloride 3 Rate: 25 l 0.0014 14:33: ml/hr, Spurger MEQ/ML / 00 Infuse Potassium over: 40 [...] 30 day, Stop date: 09/10/14 9:32:00 Calcium 2015-0 No 1,000 mL, Memor ia Chloride 3-31 Rate: 25 l 0.0014 14:33: ml/hr, Spurger MEQ/ML / 00 Infuse Potassium over: 40 [...] 30 day, Stop date: 09/10/14 9:32:00 Calcium 2015-0 No 1,000 mL, Memor ia Chloride 3-31 [...] 5,000 Memoria 3-31 unit, l 14:25: Route: Spurger 00 SUB-Q, ONCE, Dosing Weight 58.182, kg, Start date: 08/11/14 9:25:00, Stop date: 08/11/14 9:25:00 heparin 2014-0 No 5,000 Memoria 3-31 unit, l 14:25: Route: Rocky 00 SUB-Q, ONCE, Dosing Weight 58.182, kg, Start date: 08/11/14 9:25:00, Stop date: 08/11/14 9:25:00 heparin 2014-0 No 5,000 Memoria 3-31 unit, l 14:25: Route: Spurger 00 SUB-Q, ONCE, Dosing Weight 58.182, kg, Start date: 08/11/14 9:25:00, Stop date: 08/11/14 9:25:00 heparin 2015-0 No 5,000 Memoria 3-31 unit, l 14:25: Route: Sp[place] 00 SUB-Q, ONCE, Dosing Weight 58.182, kg, Start date: 08/11/14 9:25:00, Stop date: 08/11/14 9:25:00 tramadol 2014-0 Yes 50 mg = 1 [...] PO, l oral 20:00: BID, # 30 Spurger enteric 00 tab, 0 coated Refill(s) tablet tramadol Yes 50 mg = 1 Jhonathan jaime hydrochlori 1-07 tab, PO, l de 50 MG 20:00: Q6H, Pain, Her garnett Oral Tablet 00 # 40 tab, 0 Refill(s) pantoprazol 0 Yes 40 mg = 1 M emoria e 40 mg 1-07 tab, PO, l oral 20:00: BID, # 30 Spurger enteric 00 tab, 0 coated Refill(s) tablet Omeprazole 2015-0 No 20 mg, Memor ia 1-07 Route: PO, l 15:00: Drug form: Rocky 00 ECTAB, BID, Dosing Weight 62.273, kg, Start date: 05/20/14 9:00:00, Duration: 30 day, Stop date: 06/18/14 17:00:00 Lisinopril 2015-0 No Notes: Memor ia 1-07 (Same as: l 15:00: Prinivil, Rocky 00 Zestril) Protonix 2014-0 No Notes: Memoria 1-07 Tablet l 15:00: should not Spurger 00 be chewed or crushed. (Same as: Protonix) Omeprazole 2014-0 No 20 mg, Memor ia 1-07 Route: PO, l 15:00: Drug form: Spurger 00 ECTAB, BID, Dosing Weight 62.273, kg, Start date: 05/20/14 9:00:00, Duration: 30 day, Stop date: 06/18/14 17:00:00 Lisinopril 2015-0 No Notes: Memor ia 1-07 (Same as: l 15:00: Prinivil, Spurger 00 Zestril) Protonix 2014-0 No Notes: Memoria 1-07 Tablet l 15:00: should not Spurger 00 be chewed or crushed. (Same as: [...] 1-07 Route: PO, l 15:00: Drug form: Spurger 00 ECTAB, BID, Dosing Weight 62.273, kg, Start date: 05/20/14 9:00:00, Duration: 30 day, Stop date: 06/18/14 17:00:00 Lisinopril 2014- No Notes: Memor ia 1-07 (Same as: l 15:00: Prinivil, Spurger 00 Zestril) Protonix No Notes: Memoria 1-07 Tablet l 15:00: should not Spurger 00 be chewed or crushed. (Same as: Protonix) Ketorolac 0 No 4 days. Jhonathan jaime 1-07 l 06:00: Rocky 00 Ketorolac 2014-0 No 4 days. Jhonathan jaime 1-07 l 06:00: Rocky Ketorolac 2014-0 No 4 days. Jhonathan jaime 1-07 l 06:00: Rocky Ketorolac 2014-0 No 4 days. Jhonathan jaime 1-07 l 06:00: Rocky Enoxaparin No Notes: Memor ia 1-07 (Same as: l 01:00: Lovenox) Rocky Enoxaparin No Notes: Memor ia 1-07 (Same as: l 01:00: Lovenox) Spurger Enoxaparin No Notes: Memor ia 1-07 (Same as: l 01:00: Lovenox) Spurger Enoxaparin No Notes: Memor ia 1-07 (Same as: l 01:00: Lovenox) Rocky Acetaminoph No Notes: Max Memoria en 1-07 acetaminop l 00:18: hen 4000 Spurger 00 mg/day (4 gm/day). (Same as: Tylenol Extra Strength) Acetaminoph No Notes: Max Memoria en 1-07 acetaminop l 00:18: hen 4000 Rocky 00 mg/day (4 gm/day). (Same as: Tylenol Extra Strength) Acetaminoph No Notes: Max Memoria en 1-07 acetaminop l 00:18: hen 4000 Spurger 00 mg/day (4 gm/day). (Same as: Tylenol Extra Strength) Acetaminoph No Notes: Max Memoria en 1-07 acetaminop l 00:18: hen 4000 Spurger 00 mg/day (4 gm/day). (Same as: Tylenol Extra Strength) Phenergan No Notes: Do Mem oria 1-06 not give l 21:03: IV push. Spurger 00 (Same as: Phenergan) Phenergan No Notes: Do Mem oria 1-06 not give l 21:03: IV push. Spurger 00 (Same as: Phenergan) Phenergan No Notes: Do Mem oria 1-06 not give l 21:03: IV push. Spurger 00 (Same as: Phenergan) Phenergan No Notes: Do Mem oria 1-06 not give l 21:03: IV push. Spurger 00 (Same as: Phenergan) Ketorolac No 4 days Memor ia 1-06 l 21:01: Rocky Ketorolac No 4 days Memor ia 1-06 l 21:01: Spurger 00 Ketorolac No 4 days Memor ia 1-06 l 21:01: Rocky Ketorolac No 4 days Memor ia 1-06 l 21:01: Spurger 00 Morphine No Notes: Memoria 1-06 (Same l 20:04: as:MORPhin Rocky 00 e Sulfate) Morphine No Notes: Memoria 1- (Same l 20:04: as:MORPhin Spurger 00 e Sulfate) Morphine No Notes: Memoria 1-06 (Same l 20:04: as:MORPhin Spurger 00 e Sulfate) Morphine No Notes: Memoria 1- (Same l 20:04: as:MORPhin Spurger 00 e Sulfate) Saline No Notes: Memoria [...] 06/18/14 12:50:00 Ondansetron No Notes: Jhonathan jaime 1-06 (Same as: l 18:51: Zofran) Acetaminoph No Notes: Do M emoria en 05-19 not exceed l 18:51: 4 gm/day. Spurger 00 (Same as: Tylenol) Morphine No 2 mg, Memoria 05-19 Route: l 18:51: IVP, Q4H, Dosing Weight 60.909, kg, PRN Pain Score 4-6, Start date: 05/19/14 12:51:00, Duration: 30 day, Stop date: 06/18/14 12:50:00 Saline No Notes: Memoria Flush 0.9% 1-06 (Same as: l 18:51: BD Rocky 00 Posiflush) Sodium No 1,000 mL, Memori a Chloride 05-19 Rate: 75 l 0.154 18:51: ml/hr, Spurger MEQ/ML 00 Infuse Injectable over: 13.3 Solution hr, Route: IV, Dosing Weight 60.909 kg, Total Volume: 1,000, Start date: 05/19/14 12:51:00, Duration: 30 day, Stop date: 06/18/14 12:50:00 Ondansetron No Notes: Jhonathan jaime - (Same as: l 18:51: Zofran) Acetaminoph No [...] 0.9% 1-06 (Same as: l 18:51: BD Sp[place] 00 Posiflush) Sodium No 1,000 mL, Memori a Chloride 1 Rate: 75 l 0.154 18:51: ml/hr, Rocky [...] 05-19 Route: l 18:51: IVP, Q4H, Rocky 00 Dosing Weight 60.909, kg, PRN Pain Score 4-6, Start date: 05/19/14 12:51:00, Duration: 30 day, Stop date: 06/18/14 12:50:00 Saline No Notes: Memoria Flush 0.9% 05-19 (Same as: l 18:51: BD Spurger 00 Posiflush) Sodium No 1,000 mL, Memori [...] 05-19 not exceed l 18:51: 4 gm/day. Spurger 00 (Same as: Tylenol) Morphine No 2 mg, Memoria 05-19 Route: l 18:51: IVP, Q4H, Rocky 00 Dosing Weight 60.909, kg, PRN Pain Score 4-6, Start date: 05/19/14 12:51:00, Duration: 30 day, Stop date: 06/18/14 12:50:00 Sodium 2015-0 No 500 mL, Memoria Chloride 1-06 500 ml/hr, l 0.154 17:48: Infuse Spurger MEQ/ML 00 Over: 1 Injectable hr, Route: [...] 1-06 500 ml/hr, l 0.154 17:48: Infuse Spurger MEQ/ML 00 Over: 1 Injectable hr, Route: Solution IV, ONCE, Priority: STAT, Dosing Weight 60.909 kg, Start date: 05/19/14 11:48:00, Duration: 1 doses or times, Stop date: 05/19/14 11:48:00 Sodium 2015-0 No 500 mL, Memoria Chloride 1-06 500 ml/hr, l 0.154 17:48: Infuse Spurger MEQ/ML 00 Over: 1 Injectable hr, Route: Solution IV, ONCE, Priority: STAT, Dosing Weight 60.909 kg, Start date: 05/19/14 11:48:00, Duration: 1 doses or times, Stop date: 05/19/14 11:48:00 Promethazin 2014-0 No 12.5 mg, Me moria e 1- Route: l 17:32: IVPB, Rocky 00 ONCE, Dosing Weight 60.909, kg, Start date: 05/19/14 11:32:00, Stop date: 05/19/14 11:32:00 Promethazin 2014-0 No 12.5 mg, Me moria e - Route: l 17:32: IVPB, Sp[place] 00 ONCE, Dosing Weight 60.909, kg, Start date: 05/19/14 11:32:00, Stop date: 05/19/14 11:32:00 Promethazin No 12.5 mg, Me moria e 05-19 Route: l 17:32: IVPB, Rocky 00 ONCE, Dosing Weight 60.909, kg, Start date: 05/19/14 11:32:00, Stop date: 05/19/14 11:32:00 Promethazin No 12.5 mg, Me moria e 05-19 Route: l 17:32: IVPB, Sp[place] 00 ONCE, Dosing Weight 60.909, kg, Start date: 05/19/14 11:32:00, Stop date: 05/19/14 11:32:00 Hydralazine No Notes: Jhonathan jaime - (Same as: l 16:11: Apresoline Spurger ) Push over 5 minutes Hydralazine No [...] TAB, 5 MG Oral Dosing Tablet Weight [[place] 60.909, 5/325] kg, Q4H, PRN Pain, Start date: 05/19/14 9:51:00, Duration: 30 day, Stop date: 06/18/14 9:50:00 Acetaminoph No 1,000 mg, M emoria en 05-19 Route: l 15:51: IVPB, Drug Rocky 00 form: INJ, ONCE, Dosing Weight 60.909, kg, PRN Pain Score 1-3, Start date: 05/19/14 9:51:00, Duration: 1 doses or times, Stop date: Limited # of times Ondansetron 0 No 4 mg, Memor ia 05-19 Route: l 15:51: IVP, ONCE, Spurger Dosing Weight 60.909, kg, PRN Nausea & Vomiting, Start date: 05/19/14 9:51:00 Naloxone 2014-0 No 0.04 mg, Memor ia 05-19 Route: l 15:51: IVP, Sp[place] 00 Q2MIN, Dosing Weight 60.909, kg, PRN Narcotic Reversal, Start date: 05/19/14 9:51:00, Duration: 8 doses or times, Stop date: Limited # of times Meperidine No 12.5 mg, Mem oria 05-19 Route: l 15:51: IVP, Spurger 00 Q30Min, Dosing Weight 60.909, kg, PRN Other -See Comment, For shivering, Start date: 05/19/14 9:51:00, Duration: 2 doses or times, Stop date: Limited # of times Hydromorpho No 0.5 mg, Mem oria ne 05-19 Route: l 15:51: IVP, Sp[place] 00 Q5Min, Dosing Weight 60.909, kg, PRN [...] date: 06/18/14 9:50:00 Fentanyl No 25 Memoria 06 microgram, l 15:51: Route: Sp[place] 00 IVP, Q5Min, Dosing Weight 60.909, kg, PRN Pain Score 4-6, Start date: 05/19/14 9:51:00, Duration: 4 doses or times, Stop date: Limited # of times Acetaminoph No 1 tab, Jhonathan jaime en 325 MG / 06 Route: PO, l Hydrocodone 15:51: Drug Form: Rocky Bitartrate 00 TAB, 5 MG Oral Dosing Tablet Weight [[place] 60.909, 5/325] kg, Q4H, PRN Pain, Start date: 05/19/14 9:51:00, Duration: 30 day, Stop date: 06/18/14 9:50:00 Acetaminoph 2015-0 No 1,000 mg, M emoria en 05-19 [...] oria ne 05-19 Route: l 15:51: IVP, Sp[place] 00 Q5Min, Dosing Weight 60.909, kg, PRN [...] 25 Memoria 1-06 microgram, l 15:51: Route: Spurger 00 IVP, Q5Min, Dosing Weight 60.909, kg, PRN Pain Score 4-6, Start date: 05/19/14 9:51:00, Duration: 4 doses or times, Stop date: Limited # of times Acetaminoph 2014-0 No 1 tab, Jhonathan jaime en 325 MG / 05-19 Route: PO, l Hydrocodone 15:51: Drug Form: Rocky Bitartrate 00 TAB, 5 MG Oral Dosing Tablet Weight [[place] 60.909, 5/325] kg, Q4H, PRN Pain, Start date: 05/19/14 9:51:00, Duration: 30 day, Stop date: 06/18/14 9:50:00 Acetaminoph 2014-0 No 1,000 mg, M emoria en 05-19 Route: l 15:51: IVPB, Drug Rocky 00 form: INJ, ONCE, Dosing Weight 60.909, [...] Stop date: Limited # of times Hydromorpho 0 No 0.5 mg, Mem oria ne 05-19 Route: l 15:51: IVP, Rocky 00 Q5Min, Dosing Weight 60.909, kg, PRN Pain Score 7-10, Start date: 05/19/14 9:51:00, Duration: 4 doses or times, Stop date: Limited # of times Flumazenil No 0.2 mg, Jhonathan jaime 05-19 Route: l 15:51: IVP, PRN, Spurger 00 Dosing Weight 60.909, kg, PRN Benzodiaze pine Reversal, Initial dose, Start date: 05/19/14 9:51:00, Duration: 30 day, Stop date: 06/18/14 9:50:00 Fentanyl No 25 Memoria 06 microgram, l 15:51: Route: Sp[place] 00 IVP, Q5Min, Dosing Weight 60.909, kg, PRN Pain Score 4-6, Start date: 05/19/14 9:51:00, Duration: 4 doses or times, Stop date: Limited # of times Acetaminoph 0 No 1 tab, Jhonathan jaime en 325 MG / 05-19 Route: PO, l Hydrocodone 15:51: Drug Form: Rocky Bitartrate 00 TAB, 5 MG Oral Dosing Tablet Weight [[place] 60.909, 5/325] kg, Q4H, PRN Pain, Start [...] ia 05-19 Route: l 15:51: IVP, ONCE, Spurger Dosing Weight 60.909, kg, PRN Nausea & [...] 25 Memoria 1-06 microgram, l 15:51: Route: Spurger 00 IVP, Q5Min, Dosing Weight 60.909, kg, PRN Pain Score 4-6, Start date: 05/19/14 9:51:00, Duration: 4 doses or times, Stop date: Limited # of times Ancef 2015-0 No 2 gm, Memoria 1-06 Route: l 14:12: IVPB, Rocky 00 ONCE, Dosing Weight 60.909, kg, Start date: 05/19/14 8:12:00, Stop date: 05/19/14 8:12:00 Ancef 2015-0 No 2 gm, Memoria 1-06 Route: l 14:12: IVPB, Sp[place] 00 ONCE, Dosing Weight 60.909, kg, Start date: 05/19/14 8:12:00, Stop date: 05/19/14 8:12:00 Ancef 2015-0 No 2 gm, Memoria 1-06 Route: l 14:12: IVPB, Sp[place] 00 ONCE, Dosing Weight 60.909, kg, Start date: 05/19/14 8:12:00, Stop date: 05/19/14 8:12:00 Ancef 2015-0 No 2 gm, Memoria 1-06 Route: l 14:12: IVPB, Sp[place] 00 ONCE, Dosing Weight 60.909, kg, Start date: 05/19/14 8:12:00, Stop date: 05/19/14 8:12:00 heparin, 2015-0 No 5,000 Memoria porcine 1-06 unit, l 14:09: Route: Sp[place] 00 SUB-Q, ONCE, Dosing Weight 60.909, kg, Start date: 05/19/14 8:09:00, Stop date: 05/19/14 8:09:00 heparin, 2014-0 No 5,000 Memoria porcine 1-06 unit, l 14:09: Route: Sp[place] 00 SUB-Q, ONCE, Dosing Weight 60.909, kg, [...] 1-06 Rate: 25 l 0.0014 13:58: ml/hr, Spurger MEQ/ML / 00 Infuse Potassium over: 40 Chloride hr, Route: 0.004 IV, Dosing MEQ/ML / Weight Sodium 60.909 kg, Chloride Total 0.103 Volume: MEQ/ML / 1,000, Sodium Start Lactate date: 0.028 15 MEQ/ML 7:58:00, Injectable Duration: Solution 30 day, Stop date: 06/18/14 7:57:00 Calcium 2014-0 No 1,000 mL, Memor ia Chloride 1-06 Rate: 25 l 0.0014 13:58: ml/hr, Spurger MEQ/ML / 00 Infuse Potassium over: 40 Chloride hr, Route: 0.004 IV, Dosing MEQ/ML / Weight Sodium 60.909 kg, Chloride Total 0.103 Volume: MEQ/ML / 1,000, Sodium Start Lactate date: 0.028 15 MEQ/ML 7:58:00, Injectable Duration: Solution 30 day, Stop date: 06/18/14 7:57:00 Calcium 2014-0 No 1,000 mL, Memor ia Chloride 1-06 Rate: 25 l 0.0014 13:58: ml/hr, Rocky MEQ/ML / 00 Infuse Potassium over: 40 Chloride hr, Route: 0.004 IV, Dosing MEQ/ML / Weight Sodium 60.909 kg, Chloride Total 0.103 Volume: MEQ/ML / 1,000, Sodium Start Lactate date: 0.028 15 MEQ/ML 7:58:00, Injectable Duration: Solution 30 day, Stop date: 06/18/14 7:57:00 Calcium 2014-0 No 1,000 mL, Memor ia Chloride 1-06 Rate: 25 l 0.0014 13:58: ml/hr, Spurger MEQ/ML / 00 Infuse Potassium over: 40 Chloride hr, Route: 0.004 IV, Dosing MEQ/ML / Weight Sodium 60.909 kg, Chloride Total 0.103 Volume: MEQ/ML / 1,000, Sodium Start Lactate date: 0.028 15 MEQ/ML 7:58:00, Injectable Duration: Solution 30 day, Stop date: 06/18/14 7:57:00 Sodium 2014- No 500 mL, Memoria Chloride 2-16 Rate: 25 l 0.154 13:51: ml/hr, Rocky MEQ/ML 00 Infuse Injectable over: 20 Solution hr, Route: IV, Dosing Weight 60.909 kg, Total Volume: 500, Start date: 04/28/14 7:51:00, Duration: 30 day, Stop date: 05/28/14 7:50:00 Sodium 2014-1 No 500 mL, Memoria Chloride 2-16 Rate: 25 l 0.154 13:51: ml/hr, Spurger MEQ/ML 00 Infuse Injectable over: 20 Solution hr, Route: IV, Dosing Weight 60.909 kg, Total Volume: 500, Start date: 04/28/14 7:51:00, Duration: 30 day, Stop date: 05/28/14 7:50:00 Sodium 2013-1 No 500 mL, Memoria Chloride 2-16 Rate: 25 l 0.154 13:51: ml/hr, Spurger MEQ/ML 00 Infuse Injectable over: 20 Solution [...] ia 2-26 Route: l 20:12: IVP, Drug Spurger 00 form: INJ, ONCE, Dosing Weight 54.545, kg, Priority: STAT, Start date: 07/09/13 14:12:00, Stop date: 07/09/13 14:12:00 Ondansetron 2014-0 No 4 mg, Memor ia 2-26 Route: l 20:12: IVP, Drug Spurger 00 form: INJ, ONCE, Dosing Weight 54.545, kg, Priority: STAT, Start date: 07/09/13 14:12:00, Stop date: 07/09/13 14:12:00 Ondansetron 2014-0 No 4 mg, Memor ia 2-26 Route: l 20:12: IVP, Drug Rocky 00 form: INJ, ONCE, Dosing Weight 54.545, kg, Priority: STAT, Start date: 07/09/13 14:12:00, Stop date: 07/09/13 14:12:00 Ondansetron 2014-0 No 4 mg, Memor ia 07-09 Route: l 20:12: IVP, Drug Spurger 00 form: INJ, ONCE, Dosing Weight 54.545, kg, Priority: STAT, Start date: 07/09/13 14:12:00, Stop date: 07/09/13 14:12:00 Morphine 2014-0 No 6 mg, Memoria 2- Route: l 19:38: IVP, ONCE, Rocky 00 Dosing Weight 54.545, kg, Start date: 07/09/13 13:38:00, Stop date: 07/09/13 13:38:00 Morphine 2014-0 No 6 mg, Memoria 2- Route: l 19:38: IVP, ONCE, Rocky 00 Dosing Weight 54.545, kg, Start date: 07/09/13 13:38:00, Stop date: 07/09/13 13:38:00 Morphine 2014-0 No 6 mg, Memoria 2- Route: l 19:38: IVP, ONCE, Spurger 00 Dosing Weight 54.545, kg, Start date: 07/09/13 13:38:00, Stop date: 07/09/13 13:38:00 Morphine 2014-0 No 6 mg, Memoria 2- Route: l 19:38: IVP, ONCE, Rocky 00 Dosing Weight 54.545, kg, Start date: 07/09/13 13:38:00, Stop date: 07/09/13 13:38:00 Sodium 2014-0 No 1,000 mL, Memori a Chloride 07-09 Rate: 75 l 0.154 19:36: ml/hr, Spurger MEQ/ML 00 Infuse Injectable over: 13.3 Solution hr, Route: IV, Dosing Weight 54.545 kg, Total Volume: 1,000, Priority: STAT, Start date: 07/09/13 13:36:00, Duration: 1 doses or times, Stop date: 07/10/13 2:53:00 Sodium 2014-0 No 1,000 mL, Memori a Chloride 2-26 Rate: l 0.9% 19:36: 1,000 Spurger (Bolus) IV 00 ml/hr, 1,000 mL Infuse over: 1 hr, Route: IV, Dosing Weight 54.545 kg, Total Volume: 1,000, Priority: STAT, Start date: 07/09/13 13:36:00, Duration: 1 doses or times, Stop date: 07/09/13 14:35:00, Bolus DoseBolus Dose Sodium 2014-0 No 1,000 mL, Memori a Chloride 2-26 Rate: 75 l 0.154 19:36: ml/hr, Spurger MEQ/ML 00 Infuse Injectable over: 13.3 Solution hr, Route: IV, Dosing Weight 54.545 kg, Total Volume: 1,000, Priority: STAT, Start date: 07/09/13 13:36:00, Duration: 1 doses or times, Stop date: 07/10/13 2:53:00 Sodium 2014-0 No 1,000 mL, Memori a Chloride 2-26 Rate: l 0.9% 19:36: 1,000 Spurger (Bolus) IV 00 ml/hr, 1,000 mL Infuse over: 1 hr, Route: IV, Dosing Weight 54.545 kg, Total Volume: 1,000, Priority: STAT, Start date: 07/09/13 13:36:00, Duration: 1 doses or times, Stop date: 07/09/13 14:35:00, Bolus DoseBolus Dose Sodium 2014-0 No 1,000 mL, Memori a Chloride 2-26 Rate: 75 l 0.154 19:36: ml/hr, Spurger MEQ/ML 00 Infuse Injectable over: 13.3 Solution hr, Route: IV, Dosing Weight 54.545 kg, Total Volume: 1,000, Priority: STAT, Start date: 07/09/13 13:36:00, Duration: 1 doses or times, Stop date: 07/10/13 2:53:00 Sodium 2014-0 No 1,000 mL, Memori a Chloride 2-26 Rate: l 0.9% 19:36: 1,000 Spurger (Bolus) IV 00 ml/hr, 1,000 mL Infuse over: 1 hr, Route: IV, Dosing Weight 54.545 kg, Total Volume: 1,000, Priority: STAT, Start date: 07/09/13 13:36:00, Duration: 1 doses or times, Stop date: 07/09/13 14:35:00, Bolus DoseBolus Dose Sodium 2014-0 No 1,000 mL, Memori a Chloride 2-26 Rate: 75 l 0.154 19:36: ml/hr, Spurger MEQ/ML 00 Infuse Injectable over: 13.3 Solution hr, Route: IV, Dosing Weight 54.545 kg, Total Volume: 1,000, Priority: STAT, Start date: 07/09/13 13:36:00, Duration: 1 doses or times, Stop date: 07/10/13 2:53:00 Sodium 2014-0 No 1,000 mL, Memori a Chloride 2-26 Rate: l 0.9% 19:36: 1,000 Spurger (Bolus) IV 00 ml/hr, 1,000 mL Infuse over: 1 hr, Route: IV, Dosing Weight 54.545 kg, Total Volume: 1,000, Priority: STAT, Start date: 07/09/13 13:36:00, Duration: 1 doses or times, Stop date: 07/09/13 14:35:00, Bolus DoseBolus Dose Labetalol 2014-0 Yes 20 mg, 4 Jhonathan jaime 2-26 mL, Route: l 18:35: IVP, Drug Spurger 00 form: INJ, ONCE, Dosing Weight 54.545, kg, Start date: 07/09/13 12:35:00, Stop date: 07/09/13 12:35:00(S laine as: Normodyne, Trandate) Push over 2 minutes Give bolus over 2-3 minutes. Labetalol 2014-0 Yes 20 mg, 4 Jhonathan jaime 2-26 mL, Route: l 18:35: IVP, Drug Spurger 00 form: INJ, ONCE, Dosing Weight 54.545, [...] 2-26 mL, Route: l 18:35: IVP, Drug Spurger 00 form: INJ, ONCE, Dosing Weight 54.545, kg, Start date: 07/09/13 12:35:00, Stop date: 07/09/13 12:35:00(S laine as: Normodyne, Trandate) Push over 2 minutes Give bolus over 2-3 minutes. Ondansetron 2014-0 No 4 mg, Memor ia 2-26 Route: l 17:03: IVP, Drug Spurger 00 form: INJ, ONCE, Dosing Weight 54.545, [...] 2-26 Rate: 75 l 0.154 17:03: ml/hr, Rokcy MEQ/ML 00 Infuse Injectable over: 13.3 Solution hr, Route: IV, Dosing Weight 54.545 kg, Total Volume: 1,000, Priority: STAT, Start date: 07/09/13 11:03:00, Duration: 1 doses or times, Stop date: 07/10/13 0:20:00 Ondansetron 2014-0 No 4 mg, Memor ia 2-26 Route: l 17:03: IVP, Drug Spurger 00 form: INJ, ONCE, Dosing Weight 54.545, kg, Priority: STAT, Start date: 07/09/13 11:03:00, Stop date: 07/09/13 11:03:00 Morphine 2014-0 No 4 mg, Memoria 2-26 Route: l 17:03: IVP, ONCE, Rocky 00 Dosing Weight 54.545, kg, Priority: STAT, Start date: 07/09/13 11:03:00, Stop date: 07/09/13 11:03:00 Sodium 2014-0 No 1,000 mL, Memori a Chloride 2-26 Rate: l 0.9% 17:03: 1,000 Spurger (Bolus) IV 00 ml/hr, 1,000 mL Infuse over: 1 hr, Route: IV, Dosing Weight 54.545 kg, Total Volume: 1,000, Priority: STAT, Start date: 07/09/13 11:03:00, Duration: 1 doses or times, Stop date: 07/09/13 12:02:00, Bolus DoseBolus Dose Sodium 2014-0 No 1,000 mL, Memori a Chloride 2-26 Rate: 75 l 0.154 17:03: ml/hr, Spurger MEQ/ML 00 Infuse Injectable over: 13.3 Solution [...] Memoria 2-26 Route: l 17:03: IVP, ONCE, Spurger 00 Dosing Weight 54.545, kg, Priority: STAT, [...] 2-26 Rate: 75 l 0.154 17:03: ml/hr, Spurger MEQ/ML 00 Infuse Injectable over: 13.3 Solution [...] Chloride 2-26 Rate: l 0.9% 17:03: 1,000 Spurger (Bolus) IV 00 ml/hr, 1,000 mL Infuse [...] or times, Stop date: 07/10/13 0:20:00 influenza 2009-05 No SYSTEM 0.5 ml, Mem [...] SYSTEM 0.5 ml, M emoria l 23-valent 9- SYSTEM Route: IM, l vaccine 14:00: Drug Form: Kisha steph 00 INJ, Start date: 01/14/10 9:00:00, Stop date: 01/14/10 9:00:00 pneumococca 2009-0 No SYSTEM 0.5 ml, M emoria l 23-valent 9- SYSTEM Route: IM, l vaccine 14:00: Drug [...] 03/29/09 23:11:57(S laine as: PNU-IMUNE 23) pneumococca 2008- No SYSTEM 0.5 ml, M emoria l 23-valent 0-18 SYSTEM Route: IM, l vaccine 04:16: Drug Form: Kisha steph 57 INJ, ONCALL, Start date: 02/27/09 23:16:57, Stop date: 03/29/09 23:11:57(S laine as: PNU-IMUNE 23) pneumococca 2008-1 No SYSTEM 0.5 ml, M emoria l 23-valent 0-18 SYSTEM Route: IM, l vaccine 04:16: Drug Form: Kisha choi 57 INJ, ONCALL, Start date: 02/27/09 23:16:57, Stop date: 03/29/09 23:11:57(S laine as: PNU-IMUNE 23) pneumococca 2008- No SYSTEM 0.5 ml, M emoria l 23-valent 0-18 SYSTEM Route: IM, l vaccine 04:16: Drug Form: Kisha steph 57 INJ, ONCALL, Start date: 02/27/09 23:16:57, Stop date: 03/29/09 23:11:57(S laine as: PNU-IMUNE 23) Fish Oil Fish Oil Yes [facility] CAPS CAPS [facility] ans amLODIPine amLODIPine Yes QD TAKE 1 U T Besylate Besylate TABLET Physi ci 2.5 MG Oral 2.5 MG Oral DAILY ans Tablet Tablet DIRECTED. amLODIPine amLODIPine Yes UT Besylate-Va Besylate-Va P hysici lsartan lsartan ans 5-160 MG 5-160 MG Oral Tablet Oral Tablet Pantoprazol Pantoprazol Yes U T e Sodium 40 e Sodium 40 P hysici MG Oral MG Oral ans Tablet Tablet Delayed Delayed Release Release cloNIDine cloNIDine Yes UT HCl - 0.1 HCl - 0.1 Physi ci MG Oral MG Oral ans Tablet Tablet Wanda Low Wanda Low Yes UT Dose 81 MG Dose 81 MG Phy sici Oral Tablet Oral Tablet a ns Delayed Delayed Release Release Aspirin 81 Aspirin 81 Yes Gaudencio 1 tablet [facility] Ordered Immunization Filled Immunization Date Status Commen ts Source Name Name [id number] 2020-08-20 Completed Jhonathan rial NA-1273vaxMODERNA 00:00:00 [place] [id number] 2020-08-20 Completed Jhonathan rial NA-1273vaxMODERNA 00:00:00 [place] [id number] 2020-08-20 Completed Jhonathan rial NA-1273vaxMODERNA 00:00:00 [place] [id number] 2020-08-20 Completed Jhonathan rial NA-1273vaxMODERNA 00:00:00 [place] [id number] 2020-08-06 Completed Jhonathan rial NA-1273vaxMODERNA 00:00:00 [place] [id number] 2020-08-06 Completed Jhonathan rial NA-1273vaxMODERNA 00:00:00 [place] [id number] 2020-08-06 Completed Jhonathan rial NA-1273vaxMODERNA 00:00:00 [place] [id number] 2020-08-06 Completed Jhonathan rial NA-1273vaxMODERNA 00:00:00 [place] influenza virus 2010-02-11 [facility]pleted [facility] [...] virus 2010-02-11 Completed [facility], inactivated 17:00:00 [facility] steph pneumococcal 2009-02-28 Completed [facility] 23-valent vaccine 22:05:00 [place] pneumococcal 2009-02-28 Completed [facility] 23-valent vaccine 22:05:00 [facility] pneumococcal 2009-02-28 Completed [facility] 23-valent vaccine 22:05:00 [place] pneumococcal 2009-02-28 Completed [facility] 23-valent vaccine 22:05:00 [place] pneumococcal 2009-02-28 Completed [facility] 23-valent vaccine 22:05:00 [place] pneumococcal 2009-02-28 Completed [facility] 23-valent vaccine 22:05:00 [place] pneumococcal 2009-02-28 Completed [facility] 23-valent vaccine 22:05:00 [place] pneumococcal 2009-02-28 Completed [facility] 23-valent vaccine 22:05:00 [place] Vital Signs Vital Name Observation Time Observation Value Comments Source Systolic blood 2021-12-22 162 mm[Hg] [facility]00 [facility] Diastolic blood 2021-12-22 73 mm[Hg[facility] [place] [facility] rate 2021-12-22 67 /min [facility] 19:54:00 [facility] Oxygen saturation 2021-12-22 97 /min [facility] Arterial blood 19:54:00 [facility] by Pulse oximetry [place] Body height 2021-12-22 152.4 cm [facility] 19:53:00 [facility] Body weight 2021-12-22 61.553 kg [facility] 19:53:00 [facility] BMI 2021-12-22 26.50 kg/m2 [facility] 19:53:00 [facility] Body height 2022-01-28 152.4 cm [facility] Body weight 2022-01-28 58.968 kg [facility] 16:56[facility] BMI 2022-01-28 25.39 kg/m2 [facility] 16[facility] Systolic (mm Hg) 2021-11-01 [facility] rmann 15:56:00 Diastolic (mm Hg) 2021-11-01 [facility] ermann 15:56:00 Heart Rate 2021-11-01 [facility] 15:56:00 Respitory Rate 2021-11-01 [facility] 15:56:00 Height 2021-11-01 148.59 cm [facility] 15:56:00 Weight 2021-11-01 [facility] 15:56:00 BMI Calculated 2021-11-01 [facility] 15:56:00 Systolic (mm Hg) 2020-10-27 [facility] 16:07:00 Diastolic (mm Hg) 2020-10-27 [facility] 16:07:00 Heart Rate 2020-10-27 [facility] 16:07:00 Respitory Rate 2020-10-27 [facility] 16:07:00 Height 2020-10-27 149.86 cm [facility] 16:07:00 Weight 2020-10-27 [facility] 16[facility]07:00 BMI Calculated 2020-10-27 [facility] 16:07:00 Systolic (mm Hg) 2020-08-27 [facility] rmann 16:40:00 Diastolic (mm Hg) 2020-08-27 [facility] ermann 16:40:00 Heart Rate 2020-08-27 [facility] 16:40:00 Respitory Rate 2020-08-27 [facility] 16:40:00 Weight 2020-08-27 [facility] 16:40:00 Systolic (mm Hg) 2020-06-25 [facility] 20:23:00 Diastolic (mm Hg) 2020-06-25 [facility] 20:23:00 Heart Rate 2020-06-25 [facility] 20:23:00 Respitory Rate 2020-06-25 [facility] 20:23:00 Height 2020-06-25 144.78 cm [facility] 20:23:00 Weight 2020-06-25 [facility] 20:23:00 BMI Calculated 2020-06-25 [facility] 20:23:00 BP Systolic 2019-04-09 146 mm[Hg] Location: RUE; [facility] 14:07:00 Position: Sitting BP Diastolic 2019-04-09 82 mm[Hg] Location: RUE; [facility] 14:07:00 Position: Sitting Height 2019-04-09 61 [in_us] [facility] 14[facility]07:00 Weight 2019-04-09 134.5 [lb_av] [facility] 14:07:00 Body Mass Index 2019-04-09 25.41 kg/m2 [facility] Cal[facility] 14:07:00 Temperature 2019-04-09 98.2 [degF] Method: Oral [facility] 14:07:00 Heart Rate 2019-04-09 61 /min [facility] 14:07:00 Respiration Rate 2019-04-09 18 /min [facility] 14:07:00 O2 SAT 2019-04-09 98 % Source: [facility] 14:07:00 Respitory Rate 2019-04-08 [facility] 20:00:00 Systolic (mm Hg) 2019-04-08 [facility] 20:00:00 Diastolic (mm Hg) 2019-04-08 [facility] 20:00:00 Respitory Rate 2019-04-08 [facility] 19:45:00 Systolic (mm Hg) 2019-04-08 [facility] 19:45:00 Diastolic (mm Hg) 2019-04-08 [facility] 19:45:00 Respitory Rate 2019-04-08 [facility] 19:44:00 Systolic (mm Hg) 2019-04-08 [facility] 19:44:00 Diastolic (mm Hg) 2019-04-08 Fabiano calvinann 19:44:00 Weight 2019-04-08 Fabiano Crocker n 17:30:00 BMI Calculated 2019-04-08 Fabiano Beard steph 17:30:00 Heart Rate 2019-04-08 Fabiano Crocker n 17:30:00 Height 2019-04-07 154.94 cm Fab[facility] Crocker n 19:22:00 BP Systolic 2019-03-19 145 mm[Hg] Location: L[facility]; [facility] 15:20:00 Position: Sitting BP Diastolic 2019-03-19 72 mm[Hg] Location: LUE; [facility] 15:20:00 Position: Sitting Weight 2019-03-19 136.8 [lb_av] [facility] 15:20:00 Body Mass Index 2019-03-19 25.85 kg/m2 [facility] Cal[facility] 15:20:00 Heart Rate 2019-03-19 61 /min [facility] 15:20:00 Respiration Rate 2019-03-19 18 /min [facility] 15:20:00 O2 SAT 2019-03-19 99 % Source: [facility] 15:20:00 BP Systolic 2018-03-05 133 mm[Hg] Location: [facility] 12:45:00 Position: Sitting BP Diastolic 2018-03-05 68 mm[Hg] Location: [facility] 12:45:00 Position: Sitting Height 2018-03-05 61 [in_us] [facility] 12:45:00 Weight 2018-03-05 134.2 [lb_av] [facility] 12:45:00 Body Mass Index 2018-03-05 25.36 kg/m2 [facility] 12:45:00 Heart Rate 2018-03-05 68 /min Location: L [facility] 12:45:00 Brachial Artery; Respiration Rate 2018-03-05 18 /min [facility] 12:45:00 BP Systolic 2017-12-31 182 mm[Hg] Location: LUE; [facility] 09:49:00 Position: Sitting BP Diastolic 2017-12-31 72 mm[Hg] Location: LUE; [facility] 09:49:00 Position: Sitting Height 2017-12-31 61 [in_us] [facility] 09:49:00 Weight 2017-12-31 132 [lb_av] [facility] 09:49:00 Body Mass Index 2017-12-31 24.94 kg/m2 [facility] Calculated 09:49:00 Heart Rate 2017-12-31 62 /min Location: L [facility] 09:49:00 Radial; Quality: Normal BP Systolic 2017-11-29 148 mm[Hg] Location: [facility] 13:09:00 Position: Sitting BP Diastolic 2017-11-29 76 mm[Hg] Location: [facility]; [facility] 13:09:00 Position: Sitting Height 2017-11-29 61 [in_us] [facility] 13:09:00 Weight 2017-11-29 131 [lb_av] [facility] 13:09:00 Body Mass Index 2017-11-29 24.75 kg/m2 [facility] 13:09:00 Temperature 2017-11-29 98.2 [degF] Method: Oral [facility] 13:09:00 Heart Rate 2017-11-29 64 /min Location: [facility] 13:09:00 Brachial Artery; Respiration Rate 2017-11-29 18 /min [facility] 13:09:00 Systolic (mm Hg) 2017-11-22 [facility] He rmann 21:10:00 Diastolic (mm Hg) 2017-11-22 [facility] H ermann 21:10:00 Systolic (mm Hg) 2017-11-22 [...] Obi n 14:55:00 Height 2017-11-20 154.94 cm [facility] 18:07:00 BP Systolic 2017-11-13 175 mm[Hg] Location: [facility] 12:56:00 Position: Sitting BP Diastolic 2017-11-13 76 mm[Hg] Location: [facility]; [facility] 12:56:00 Position: Sitting Height 2017-11-13 61 [in_us] [facility] 12:56:00 Weight 2017-11-13 133 [lb_av] [facility] 12:56:00 Body Mass Index 2017-11-13 25.13 kg/m2 [facility] 12:56:00 Temperature 2017-11-13 97.7 [degF] Method: Oral [facility] 12:56:00 Heart Rate 2017-11-13 60 /min [facility] 12:56:00 BP Systolic 2017-10-19 147 mm[Hg] Location: L[facility]; [facility] 13:36:00 Position: Sitting BP Diastolic 2017-10-19 66 mm[Hg] Location: [facility] 13:36:00 Position: Sitting Height 2017-10-19 61 [in_us] [facility] 13:36:00 Weight 2017-10-19 131 [lb_av] [facility] 13:36:00 Body Mass Index 2017-10-19 24.75 kg/m2 [facility] Calculated 13:36:00 Temperature 2017-10-19 97.7 [degF] Method: Oral [facility] 13:36:00 Heart Rate 2017-10-19 61 /min Location: L [facility] 13:36:00 Radial; Systolic (mm Hg) 2017-03-01 [facility] [...] [facility] 14:45:00 Respitory Rate 2012-12-23 [facility] Kisha steph 14:30:00 Systolic (mm Hg) 2012-12-23 [facility] 14:30:00 Diastolic (mm Hg) 2012-12-23 [facility] ermann 14:30:00 Respitory Rate 2012-12-23 [facility] 14:17:00 Diastolic (mm Hg) 2012-12-23 [facility] ermann 14:17:00 Systolic (mm Hg) 2012-12-23 [facility] 14:17:00 Weight 2012-12-20 [facility] Obi n 20:19:00 Height 2012-12-20 154.94 cm [facility] 20[facility] Procedures Procedure Date / Time Performing Clinician Source Performed [id number] 2022-04-14 00:00:00 IQBSA [facility] [place] [id number] 2022-04-14 00:00:[address] [facility] [id number] 2022-04-05 00:00:00 CHEAA [facility] [place] [id number] 2022-04-05 00:00:00 CHEAA [facility] [place] [id number] 2022-04-03 00:00:00 HOTA [facility] [place] [id number] 2022-04-03 00:00:00 HOTA [facility] [place] [id number] 2022-04-02 00:00:00 HOTA [facility] [place] [id number] 2022-04-02 00:00:00 HOTA [facility] [id number] 2022-04-01 00:00:00 MUIDA [facility] [id number] 2022-04-01 00:00:00 MUIDA [facility] Center [id number] 2022-04-01 00:00:00 MUIDA [facility] [id number] 2022-04-01 00:00:00 MUIDA [facility] [id number] 2022-04-01 00:00:00 MUIDA [facility] [place] [id number] 2022-04-01 00:00:00 HOTA [facility] Center [id number] 2022-04-01 00:00:00 MUIDA [facility] [id number] 2022-04-01 00:00:00 MUIDA [facility] [id number] 2022-04-01 00:00:00 MUIDA [facility] [id number] 2022-04-01 00:00:00 MUIDA [facility] [id number] 2022-04-01 00:00:00 MUIDA [facility] [id number] 2022-04-01 00:00:00 MUIDA [facility] [id number] 2022-04-01 00:00:00 HOTA [facility] [id number] 2022-03-15 00:00:00 WEAMA.02 [facility] [id number] 2022-03-12 00:00:00 WEAMA.02 [facility] [id number] 2022-03-11 00:00:00 SHAWN.08 [facility] [id number] 2022-03-11 00:00:00 HAAER [facility] [id number] 2022-03-11 00:00:00 HAAER [facility] [id number] 2022-03-11 00:00:00 HAAER [facility] [id number] 2022-03-10 00:00:00 WEAMA.02 [facility] [id number] 2022-03-08 00:00:00 HAAER [facility] [id number] 2022-03-06 00:00:00 HAAER [facility] [id number] 2022-03-04 00:00:00 COUJO.01 [facility] [id number] 2022-03-04 00:00:00 COUJO.01 [facility] [id number] 2022-03-04 00:00:00 HAAER [facility] [id number] 2022-03-04 00:00:00 HAAER [facility] [id number] 2022-03-04 00:00:00 HAAER [facility] [id number] 2022-03-04 00:00:[address] [facility] [id number] 2022-03-04 00:00:00 HAAER [facility] Center [id number] 2022-03-01 00:00:00 CHEAA [facility] Center [id number] 2022-03-01 00:00:00 CHEAA [facility] Center [id number] 2022-03-01 00:00:[address] [facility] [id number] 2022-02-27 00:00:00 HAAER [facility] [place] [id number] 2022-02-27 00:00:00 HAAER [facility] [place] [id number] 2022-02-27 00:00:[address] [facility] [place] [id number] 2022-02-27 00:00:00 HAAER [facility] [place] [id number] 2022-02-27 00:00:[address] [facility] [place] [id number] 2022-02-27 00:00:[address] [facility] [place] [id number] 2022-02-27 00:00:[address] [facility] [place] [id number] 2022-02-27 00:00:[address] [facility] [place] [facility] ABDOMEN PELVIS W WO 2022-01-28 17[facility]56[facility] POC CREATININE 2022-01-28 16:51:00 Jaime Harvey [facility] ESTIMATED GFR 2022-01-28 16:51:00 Jaime Harvey [facility] CT ABD/PELVIC EXTERNAL 2021-12-12 15:37:00 Jaime Harvey [facility] STUDY Stent removal 2015-09-28 05:00:00 [facility] garnett Esophagogastroduodenoscopy 2014-08-11 05:00:00 Mauricio Hidalgo <sup>1</sup> Operation 2014-05-14 00:00:00 [facility] Her garnett Lloyd fundoplication 2010-01-13 05:00:00 Princess Martin History of Laparosc 2010-01-12 00:00:00 [facility] Esophagogastric Fundoplasty For Paraesoph Hernia Repair W/ Mesh History of Pacemaker 2004-08-12 00:00:00 [facility] History of Cholecystectomy 1993-05-14 00:00:00 [facility] Laparoscopic Colon operation 1991-05-14 00:00:00 [facility] Her garnett <sup>5</sup> Colon 1991-05-14 00:00:00 [facility] Her garnett operation<sup>2</sup> History of Total Abdominal 1981-05-14 00:00:00 [facility] Colectomy History of Hysterectomy 1977-05-14 00:00:00 [facility] Appendectomy <sup>1</sup> [facility] Breast operation [facility] <sup>2</sup> Cardiac pacemaker [facility] nn procedure <sup>3</sup> section [facility] <sup>4</sup> Hysterectomy <sup>6</sup> [facility] Laparoscopic [facility] cholecystectomy <sup>7</sup> Breast [facility] Spurger operation<sup>4</sup> Laparoscopic [facility] Rocky cholecystectomy<sup>11</faustin p> Appendectomy<sup>3</sup> [facility] [place] Hysterectomy<sup>9</sup> Memoria l Rocky [facility] section<sup>6</sup> Cardiac pacemaker [facility] Adela nn procedure<sup>5</sup> Lloyd fundoplication [facility] ermann Insertion of esophageal [facility] stent<sup>10</sup> Colonoscopy<sup>7</sup> [facility] Knee replacement [facility] Plan of Care Planned Activity Planned Date Details Comments Source Future Scheduled 2022-06-19 Hepatitis C screening [facility] Test 13:13:31 (procedure) [code = 800374120] Future Scheduled 2022-06-19 SHINGLES VACCINES (1 Met [facility] Test 13:13:31 of 2) [code = SHINGLES VACCINES (1 of 2)] Future Scheduled 2022-06-19 65+ PNEUMOCOCCAL Methodi [facility] Test 13:13:31 VACCINE (2 - PCV) [code = 65+ PNEUMOCOCCAL VACCINE (2 - PCV)] Future Scheduled 2022-06-19 COVID-19 VACCINE (5 - [facility] Test 13:13:31 Booster for Moderna series) [code = COVID-19 VACCINE (5 - Booster for Moderna series)] Future Scheduled 2022-06-19 INFLUENZA VACCINE Method [facility] Hospital Test 13:13:31 [code = INFLUENZA VACCINE] Future Scheduled 2022-03-17 HEPATITIS B VACCINES Met [facility] Test 01:10:43 (1 of 3 - 3-dose series) [code = HEPATITIS B VACCINES (1 of 3 - 3-dose series)] Future Scheduled 2022-03-17 Hepatitis C screening [facility] Test 01:10:43 (procedure) [code = 112752778] Future Scheduled 2022-03-17 SHINGLES VACCINES (1 Met [facility] Test 01:10:43 of 2) [code = SHINGLES VACCINES (1 of 2)] Future Scheduled 2022-03-17 65+ [facility] 01:10:43 VACCINE (2 - PCV) [code = 65+ PNEUMOCOCCAL VACCINE (2 - PCV)] Future Scheduled 2022-03-17 COVID-19 VACCINE (5 - [facility] Test 01:10:43 Booster for Moderna series) [code = COVID-19 VACCINE (5 - Booster for Moderna series)] Future Scheduled 2022-03-17 INFLUENZA VACCINE Method [facility] Hospital Test 01:10:43 [code = INFLUENZA VACCINE] Future Scheduled 2022-03-17 HEPATITIS B VACCINES Met [facility] Test 01:10:43 (1 of 3 - 3-dose series) [code = HEPATITIS B VACCINES (1 of 3 - 3-dose series)] Future Scheduled 2022-03-17 Hepatitis C screening [facility] Test 01:10:43 (procedure) [code = [id number]] Future Scheduled 2022-03-17 SHINGLES VACCINES (1 Met [facility] Test 01:10:43 of 2) [code = SHINGLES VACCINES (1 of 2)] Future Scheduled 2022-03-17 65+ [facility]OCCAL [facility] Test 01:10:43 VACCINE (2 - PCV) [code = 65+ PNEUMOCOCCAL VACCINE (2 - PCV)] Future Scheduled 2022-03-17 COVID-19 VACCINE (5 - [facility] Test 01:10:43 Booster for Moderna series) [code = COVID-19 VACCINE (5 - Booster for Moderna series)] Future Scheduled 2022-03-17 INFLUENZA VACCINE Method [facility] Hospital Test 01:10:43 [code = INFLUENZA VACCINE] Future Scheduled 2022-03-01 HEPATITIS B VACCINES Met [facility] Test 09:08:52 (1 of 3 - 3-dose series) [code = HEPATITIS B VACCINES (1 of 3 - 3-dose series)] Future Scheduled 2022-03-01 Hepatitis C screening [facility] Test 09:08:52 (procedure) [code = [id number]] Future Scheduled 2022-03-01 SHINGLES VACCINES (1 Met [facility] Test 09:08:52 of 2) [code = SHINGLES VACCINES (1 of 2)] Future Scheduled 2022-03-01 65+ [facility]OCOCCAL [facility] Test 09:08:52 VACCINE (2 - PCV) [code = 65+ PNEUMOCOCCAL VACCINE (2 - PCV)] Future Scheduled 2022-03-01 COVID-19 VACCINE (5 - [facility] Test 09:08:52 Booster for Moderna series) [code = COVID-19 VACCINE (5 - Booster for Moderna series)] Future Scheduled 2022-03-01 INFLUENZA VACCINE Method [facility] Hospital Test 09:08:52 [code = INFLUENZA VACCINE] Future Scheduled 2022-02-26 HEPATITIS B VACCINES Met [facility] Test 21:40:48 (1 of 3 - 3-dose series) [code = HEPATITIS B VACCINES (1 of 3 - 3-dose series)] Future Scheduled 2022-02-26 Hepatitis C screening [facility] Test 21:40:48 (procedure) [code = [id number]] Future Scheduled 2022-02-26 SHINGLES VACCINES (1 Met [facility] Test 21:40:48 of 2) [code = SHINGLES VACCINES (1 of 2)] Future Scheduled 2022-02-26 65+ PNEUMOCOCCAL Methodi Hospital Test 21:40:48 VACCINE (2 - PCV) [code = 65+ PNEUMOCOCCAL VACCINE (2 - PCV)] Future Scheduled 2022-02-26 COVID-19 VACCINE (5 - [facility] Hospital Test 21:40:48 Booster for Moderna series) [code = COVID-19 VACCINE (5 - Booster for Moderna series)] Future Scheduled 2022-02-26 INFLUENZA VACCINE Method [facility] Hospital Test 21:40:48 [code = INFLUENZA VACCINE] Encounters Start End Encounter Admission Attending Care Care Encounter Source Date/Time Date/Time Type Type Clinicians Facility Department ID 2022-06-19 Outpatient nullFlavo MH [id number] Memoria 21:56:38 r [facility] 27 deborah Spurger 2022-04-01 Inpatient UR Jaime Harvey [facility] DAYS [id number] [facility] 07:30:00 12 [facility] 2021-03-10 Outpatient R FRANCES [facility] RODRIGUE [id number] Univers 18:29:57 [facility] 2021-03-10 Outpatient R FRANCES [facility] RODRIGUE [id number] Univers 11:00:28 [facility] 2019-03-21 Outpatient MHSE MHSE [id number] MH 14:01:16 [facility] 2018-10-16 Outpatient MHSE RODRIGUE [id number] MH 15:44:11 [facility] 2022-05-03 2022-05-03 Ambulatory MHIE MNA [id number] Memoria 17:00:00 17:00:00 Pre-Reg Neurology 10 l [place] Sp[facility] 2022-05-03 2022-05-03 Outpatient MHIE MHIE [id number] Memoria 11:00:00 11:00:00 10 l Sp[facility] 2022-05-03 2022-05-03 Outpatient MHIE MHIE [id number] Memoria 11:00:00 11:00:00 10 l [facility] 2022-05-03 2022-05-03 Outpatient KAITY RamiresMISCHER MHMISCHER [id number] 11:00:00 11:00:00 Bebeto Freitas 2022-04-01 2022-04-14 Inpatient DK Ford [facility] ADMI [id number] [facility] 04:19:00 19:38:[address] [facility] 2022-04-01 2022-04-14 Inpatient DK Ford [facility] ADMI [id number] [facility] 04:19[facility]38[facility] 2022-04-01 Outpatient DRU Brooks REF [id number] [facility] 14:20:00 14:20:00 Hernán Davalos [facility] 2022-04-01 2022-04-01 Outpatient JR BrooksW REF [id number] [facility] 14:20:00 14:20:00 Hernán 14 [facility] 2022-03-23 2022-03-31 [facility] Port[facility] PPS [id number] [facility] 03:13:00 04:00:00 Ephraim 22 [facility] 2022-03-22 2022-03-31 Inpatient EL Portia, JERMAINSP ADMI [id number] 21:05:00 04:00:00 Ephraim [facility] 2022-03-22 2022-03-31 Inpatient EL Jackieo, HCASP ADMI [id number] 21:05:00 04:00:00 Ephraim 37 tone [facility] ty [facility] 2022-03-23 2022-03-23 Outpatient Portia, JERMAINNW REF [id number] [facility] 15:22:00 15:22:00 Ephraim 49 [facility] 2022-03-23 2022-03-23 Outpatient EL Portia, JERMAINNW REF [id number] [facility] 15:22:00 15:22:00 Ephraim 49 [facility] 2022-02-27 2022-03-22 Inpatient Jaime Geller [facility] INTM.01 [id number] [facility] 00:55:00 21:30:00 68 [facility] 2022-02-27 2022-02-27 [facility] [id number] [facility] 17:58:00 17:58:00 03 [facility] 2022-02-22 2022-02-22 Outpatient Jaime Geller [facility] 3DAY [id number] [facility] 08:00:00 23:00:00 20 [facility] 2022-01-28 2022-01-28 Hospital Jaime Harvey 1.2.840.1 [id number] Methodi 10:07:28 23:59:00 Encounter Gary [id number] 315 s t 3.430.2.7 Hospit a .3.543364 l .8 2022-01-28 2022-01-28 [facility] Jaime Harvey 1.2.840.1 [id number] Methodi 10:07:28 23:59:00 Encounter Gary [id number] 315 s t 3.430.2.7 Hospit a .3.479800 l .8 2022-01-27 2022-01-27 Francy Chaudhary [facility] 1.2.840.114 [id number] Univers 00:00:00 00:00:00 [facility] 350.1.13.10 it y of [place] 4.2.7.2.686 Otilio as SEAN?BLEA [id number] [address] MEDICAL OFFICE BUILDING 2022-01-27 2022-01-27 Travel 1.2.840.1 1.2.431.544 [id number] Methodi 00:00:00 00:00:[address] 3.430.2.7 0.2.7.3.698 Ho spita .3.945462 084.8 l .8 2022-01-27 2022-01-27 Travel 1.2.840.1 1.2.035.557 [id number] Methodi 00:00:00 00:00:[address] 3.430.2.7 0.2.7.3.698 Ho spita .3.024456 084.8 l .8 2022-01-26 2022-01-26 Orders [place] 1.2.840.1 [id number] Methodi 00:00:00 00:00:00 Only my, [address]462.1.[address] Lakshmi 3.430.2.7 Hospi ta Wing .3.259468 l .8 2022-01-26 2022-01-26 Orders [place] 1.2.840.1 [id number] Methodi 00:00:00 00:00:00 Only my, 75131.1.[address] Lakshmi 3.430.2.7 Hospi ta Wing .3.946798 l .8 2022-01-25 2022-01-25 [facility] 1.2.840.1 [id number] Methodi 00:00:00 00:00:00 ion my, [address]239.1.[address] Lakshmi 3.430.2.7 Hospi ta Wing .3.778067 l .8 2022-01-25 2022-01-[address] [facility] 1.2.840.1 [id number] Methodi 00:00:00 00:00:00 ion my, [address]32.1.[address] Lakshmi 3.430.2.7 Hospi ta Wing .3.482367 l .8 2022-01-20 2022-01-20 TranscriJaime Mancini 1.2.840.1 [id number] Methodi 00:00:00 00:00:00 Orders Gary [address]19.1.[address] 3.430.2.7 Hospit a .3.614970 l .8 2022-01-20 2022-01-20 Transcribe Vinay Harveyic 1.2.840.1 [id number] Methodi 00:00:00 00:00:00 Orders Gary [address]40.1.[address] 3.430.2.7 Hospit a .3.575379 l .8 2022-01-20 2022-01-20 Transcribe Vinay Harveyic 1.2.840.1 [id number] Methodi 00:00:00 00:00:00 Orders Gary [address].1.[address] 3.430.2.7 Hospit a .3.984169 l .8 2022-01-20 2022-01-20 ConnorriJaime Mancini 1.2.840.1 [id number] Methodi 00:00:00 00:00:00 Orders Gary 71815.1.[address] 3.430.2.7 Hospit a .3.038751 l .8 2022-01-12 2022-01-12 Jaime Mendez 1.2.840.1 [id number] 21 [id number] Methodi 14:42:29 23:59:00 Encounter Gary [id number] s t 3.430.2.7 Hospit a .3.389852 l .8 2022-01-12 2022-01-12 [facility] Jaime Harvey 1.2.840.1 [id number] Methodi 14:42:29 23:59:00 Encounter Gary [id number] 957 s t 3.430.2.7 Hospit a .3.239814 l .8 2021-12-22 2021-12-22 [facility] 1.2.840.114 [id number] Univers 15:00:00 15:15:00 Visit [facility] 350.1.13.10 y [facility] 4.2.7.2.686 Otilio as SEAN?BLEA [phone] [address] OFFICE [facility] 2021-12-22 2021-12-22 Outpatient Madie CHAUDHARY [facility] [id number] [facility] 15:00:00 15:00:00 [facility] 2021-12-22 2021-12-22 Outpatient Madie CHAUDHARY [facility] [id number] [facility] 15:00:00 15:00:00 [facility] 2021-11-01 2021-11-02 Outpatient nullFlavo MNA [id number] Memoria 16:15:00 04:59:59 r Neurology 09 l Amirah Hidalgo 2021-11-01 2021-11-02 Outpatient nullFlavo MNA [id number] Memoria 16:15:00 04:59:59 r Neurology 09 l Amirah Hidalgo 2021-11-01 2021-11-01 Outpatient ELSIE Ramires [id number] 11:15:00 23:59:59 Bebeto Raheem Freitas 2021-11-01 2021-11-01 Outpatient MHIE SOILA [id number] Memoria 11:15:00 11:15:00 09 deborah Hidalgo 2021-10-24 2021-10-24 [facility] 1.2.840.114 [id number] Univers 00:00:00 00:00:00 Seth S HEALTH 350.1.13.10 it y of [place] 4.2.7.2.686 Otilio as SEAN?BLEA [phone] Ma fernanda GONG 198 [facility] OFFICE [facility] 2021-09-20 2021-09-20 Office [facility] 1.2.840.114 [id number] Univers 14:45:00 16:31:02 Visit [facility] HEALTH 350.1.13.10 it y of [place] 4.2.7.2.686 Otilio as SEAN?BLEA [phone] Ma fernanda GONG [address] [place] [address] 2021-09-20 2021-09-20 [facility] [id number] Univers 14:45:00 16:31:02 SETH [facility] 2021-09-20 2021-09-20 [facility] [id number] Univers 14:45:00 14:45:00 SETH [facility] 2021-09-19 2021-09-19 [facility] [id number] Univers 14:00:00 14:00:00 [facility] 2021-09-14 2021-09-14 Office [facility] 1.2.840.114 [id number] Univers 13:30:00 13:45:00 Visit [facility] 350.1.13.10 it y of [place] 4.2.7.2.686 Otilio as SEAN?BLEA [phone] Ma fernanda GONG [address] [place] [address] 2021-09-14 2021-09-14 Outpatient Madie [facility]AUDHARY [facility] [id number] Univers 13:30:00 13:30:00 SETH ity [facility] 2021-09-14 2021-09-14 [facility] [id number] Univers 13:30:00 13:30:00 SETH ity [facility] 2021-09-07 2021-09-07 [facility] [id number] Univers 13:30:00 13:44:17 SETH ity [facility] 2021-09-07 2021-09-07 [facility] 1.2.840.114 [id number] Univers 13:30:00 13:44:17 Visit Seth S HEALTH 350.1.13.10 it y of [place] 4.2.7.2.686 Otilio as SEAN?BLEA [phone] Ma fernanda GONG 198 [facility] 2021-09-07 2021-09-07 [facility] [id number] Univers 13:30:00 13:30:00 [facility] 2021-08-31 2021-08-31 Office [facility] 1.2.840.114 [id number] Univers 16:00:00 16:09:48 Visit [facility] HEALTH 350.1.13.10 it y of [place] 4.2.7.2.686 Otilio as SEAN?BLEA [phone] Ma mollyabiel GONG [address] [place] [address] 2021-08-31 2021-08-31 [facility] [id number] Univers 16:00:00 16:09:48 [facility] 2021-08-31 2021-08-31 Outpatient [facility] [id number] Univers 16:00:00 16:00:00 [facility] 2021-07-15 2021-07-15 Telephone [facility] 1.2.915.542 [id number] Univers 00:00:00 00:00:00 Seth S HEALTH 350.1.13.10 it y of [place] 4.2.7.2.686 Otilio as SEAN?BLEA [phone] Ma fernanda GONG [address] [place] [address] 2021-07-12 2021-07-12 Outpatient [facility] [id number] Univers 13:00:00 13:45:47 [facility] 2021-07-12 2021-07-12 [facility] 1.2.840.114 [id number] Univers 13:00:00 13:15:00 Visit Seth S HEALTH 350.1.13.10 it y of [place] 4.2.7.2.686 Otilio as ESAN?BLEA [phone] Me fernanda GONG 198 [facility] OFFICE [facility] 2021-07-12 2021-07-12 Outpatient Madie [facility]AUD[facility]ARY [facility] [id number] Univers 13:05:00 13:05:00 SETH ity [facility] 2021-06-10 2021-06-10 [facility] 1.2.840.114 [id number] Univers 00:00:00 00:00:00 Seth S HEALTH 350.1.13.10 it y of [place] 4.2.7.2.686 Otilio as ESAN?BLEA [phone] Ma fernanda GONG 198 [facility] OFFICE [facility] 2021-04-28 2021-04-28 Office [facility] 1.2.840.114 [id number] Univers 08:15:00 08:30:00 Visit Seth S HEALTH 350.1.13.10 it y of [place] 4.2.7.2.686 Otilio as SEAN?BLEA [phone] Ma fernanda GONG 198 [facility] 2021-04-28 2021-04-28 Outpatient Madie [facility]AUD[facility]ARY [facility] [id number] Univers 08:15:00 08:15:00 SETH ity [facility] 2021-04-28 2021-04-28 Outpatient Madie [facility]AUD[facility]ARY [facility] [id number] Univers 08:15:00 08:15:00 SETH ity [facility] 2021-04-28 2021-04-28 Outpatient Madie CHAUDHARY [facility] [id number] Univers 08:15:00 08:15:00 SETH ity [facility] 2021-04-27 2021-04-27 Outpatient Madie CHAUDHARY [facility] [id number] Univers 13:45:00 13:45:00 SETH ity [facility] 2021-02-23 2021-02-23 [facility] 1.2.840.114 [id number] Univers 00:00:00 00:00:00 Seth S Health 350.1.13.10 it y of [place] 4.2.7.2.686 Otilio as Sean?Blea [phone] Ma fernanda gong [address] [place] [address] Office [facility] 2021-02-02 2021-02-02 [facility] 1.2.840.114 [id number] Univers 00:00:00 00:00:00 Seth S Health 350.1.13.10 it y of [place] 4.2.7.2.686 Otilio as Sean?Blea [phone] Ma fernanda gong 198 [facility] Office [facility] 2021-01-27 2021-01-27 Outpatient MHIE MHIE [id number] Memoria 11:00:00 11:00:00 08 deborah Hidalgo 2021-01-27 2021-01-27 Outpatient MHIE IE [id number] Memoria 11:00:00 11:00:00 08 deborah Rocky 2021-01-24 2021-01-24 [facility] 1.2.840.114 [id number] Univers 15:00:00 16:28:41 Visit [facility] 350.1.13.10 it y of [place] 4.2.7.2.686 Otilio as SEAN?BLEA [phone] Ma fernanda GONG [address] [place] [address] OFFICE [facility] 2021-01-24 2021-01-24 Outpatient [facility] [id number] Univers 15:00:00 16:28:41 SETH ity [facility] 2021-01-24 2021-01-24 [facility] 1.2.840.114 [id number] Univers 14:49:08 16:28:41 Visit [facility] 350.1.13.10 it y of [place] 4.2.7.2.686 Otilio as Sean?Blea [phone] Ma fernanda gong [address] [place] [address] Office [facility] 2021-01-24 2021-01-24 Outpatient [facility] [id number] Univers 15:00:00 15:00:00 SETH ity [facility] 2021-01-19 2021-01-19 [facility] 1.2.840.114 [id number] Univers 15:10:00 23:59:00 Encounter [facility] Health 350.1.13.10 ity of [place] 4.2.7.2.686 Otilio as Sean?Blea [phone] Me fernanda gong 809 [facility] 2021-01-19 2021-01-19 Office [facility] 1.2.840.114 [id number] Univers 14:52:37 15:07:37 Visit [facility] 350.1.13.10 it y of [place] 4.2.7.2.686 Otilio as Sean?Blea [phone] Ma fernanda gong 198 [facility] 2021-01-19 2021-01-19 [facility] [id number] Univers 15:00:00 15:00:00 [facility] 2021-01-04 2021-01-06 Inpatient ROSALIE Gould, DRU NSY [id number] [facility] 19:37:00 11:19:[address] [facility] 2020-12-31 2020-12-31 [facility] [id number] Univers 10:00:00 11:33:04 [facility] 2020-12-31 2020-12-31 Office [facility] 1.2.840.114 [id number] Univers 10:00:00 11:33:04 Visit [facility] 350.1.13.10 [facility] 4.2.7.2.686 Otilio as SEAN?BLEA [phone] Ma fernanda GONG 198 [facility] 2020-12-31 2020-12-31 Outpatient [facility] [id number] Univers 10:00:00 10:00:00 [facility] 2020-10-27 2020-10-28 Outpatient nullFlavo MNA [id number] Memoria 16:30:00 04:59:59 r Neurology 07 l Amirah Hidalgo 2020-10-27 2020-10-28 Outpatient nullFlavo MNA [id number] Memoria 16:30:00 04:59:59 r Neurology 07 l Amirah Hidalgo 2020-10-27 2020-10-27 Outpatient ELSIE Ramires [place] [id number] 11:30:00 23:59:59 Bebeto Suzie Freitas 2020-10-27 2020-10-27 Outpatient MHIE MHIE [id number] Memoria 11:30:00 11:30:00 07 deborah Hidalgo 2020-09-20 2020-09-20 Outpatient Madie NEENA [facility] [id number] Univers 13:45:00 13:45:00 [facility] 2020-08-27 2020-08-28 Outpatient nullFlavo MNA [id number] Memoria 16:30:00 04:59:59 r Neurology 06 l [place] 2020-08-27 2020-08-28 Outpatient nullFlavo MNA [id number] Memoria 16:30:00 04:59:59 r Neurology 06 l Amirah Hidalgo 2020-08-27 2020-08-27 [id number] 11:30:00 23:59:59 Bebeto Akira Freitas 2020-08-27 2020-08-27 Outpatient MHIE MHIE [id number] Memoria 11:30:00 11:30:00 06 deborah BeardRocky 2020-08-20 2020-08-20 Outpatient Madie CHAUDHARY [facility] [id number] Univers 09:45:00 09:45:00 [facility] 2020-08-17 2020-08-18 Outpatient nullFlavo [facility] [id number] Memoria 15:36:00 04:59:00 r Rocky [address] [place] [address] 2020-08-17 2020-08-18 Outpatient nullFlavo [facility] [id number] Memoria 15:36:00 04:59:00 r [place] Storm [facility] 2020-08-17 2020-08-17 Outpatient EKYLA [facility] [id number] [facility] 10:36:00 23:59:00 BEBETO 2020-08-17 2020-08-17 Outpatient Keyla [facility] [id number] 10:36:00 23:59:00 Bebeto Emeterio Freitas 2020-07-30 2020-07-30 Ambulatory nullFlavo MNA [id number] Memoria 15:45:00 15:45:00 Pre-Reg r Neurology 05 l [place] 2020-07-30 2020-07-30 Ambulatory nullFlavo MNA [id number] Memoria 15:45:00 15:45:00 Pre-Reg r Neurology 05 l Amirah Hidalgo 2020-07-30 2020-07-30 Outpatient MHIE MHIE [id number] Memoria 10:45:00 10:45:00 05 deborah Hidalgo 2020-07-30 2020-07-30 Outpatient Ke[facility] [id number] 10:45:00 10:45:00 Bebeto Chema Freitas 2020-07-22 2020-07-24 Outside nullFlavo MNA [id number] Memoria 19:10:08 05:59:59 Medical r Neurology 02 l Glo Hidalgo 2020-07-22 2020-07-24 Outside nullFlavo MNA [id number] Memoria 19:10:08 05:59:59 Medical r Neurology 02 l Records Amirah Hidalgo 2020-07-22 2020-07-23 Outpatient [facility] [id number] 13:10:08 23:59:59 02 2020-07-16 2020-07-16 Ambulatory nullFlavo MNA [id number] Memoria 19:30:00 19:30:00 Pre-Reg r Neurology 03 l Amirah Hidalgo 2020-07-16 2020-07-16 Ambulatory nullFlavo MNA [id number] Memoria 19:30:00 19:30:00 Pre-Reg r Neurology 03 l Amirah Hidalgo 2020-07-16 2020-07-16 Outpatient MHIE MHIE [id number] Memoria 13:30:00 13:30:00 Camilo Hidalgo 2020-07-16 2020-07-16 Outpatient Keyla [facility] [id number] 13:30:00 13:30:00 Bebeto Camilo Freitas 2020-07-07 2020-07-09 Outside nullFlavo MNA [id number] Memoria 20:33:59 05:59:59 Medical r Neurology 01 l Glo Hidalgo 2020-07-07 2020-07-09 Outside nullFlavo MNA [id number] Memoria 20:33:59 05:59:59 Medical r Neurology 01 l Records Amirah Hidalgo 2020-07-07 2020-07-09 Outside nullFlavo MNA [id number] Memoria 20:32:33 05:59:59 Medical r Neurology 00 l Records Amirah Hidalgo 2020-07-07 2020-07-09 Outside nullFlavo MNA [id number] Memoria 20:32:33 05:59:59 Medical r Neurology 00 l Records Amirah Hidalgo 2020-07-07 2020-07-08 Outpatient MHMISCHER MHMISCHER [id number] 14:33:59 23:59:59 2020-07-07 2020-07-08 Outpatient MHMISCHER MHMISCHER [id number] 14:32:33 23:59:59 00 2020-06-25 2020-06-26 Outpatient nullFlavo MNA [id number] Memoria 22:15:00 05:59:59 r Neurology 04 l Amirah Hidalgo 2020-06-25 2020-06-26 Outpatient nullFlavo MNA [id number] Memoria 22:15:00 05:59:59 r Neurology 04 l Amirah Hidalgo 2020-06-25 2020-06-25 Outpatient Keyla MISCHER MHMISCHER [id number] 16:15:00 23:59:59 Bebeto Dionte Freitas 2020-06-25 2020-06-25 Outpatient MHIE MHIE [id number] Memoria 16:15:00 16:15:00 04 deborah Rocky 2020-06-17 2020-06-17 Outpatient Madie CHAUDHARY [facility] [id number] Univers 09:45:00 09:45:00 [facility] 2020-06-03 2020-06-03 Telephone Fior [facility] 1.2.840.114 [id number] 00:00:00 00:00:00 [facility] 350.1.13.10 Surgical [id number] [facility] [id number] 198 [place] 2020-05-17 2020-05-17 Outpatient Madie CHAUDHARY [facility] [id number] Univers 15:11:04 23:59:00 [facility] 2020-03-12 2020-03-12 Outpatient LAZARO [facility] [id number] [place] 00:00:00 00:00:00 SAMEER 632 Method i 2020-01-13 2020-01-13 Outpatient R NEENA, [facility] [id number] Univers 11:00:00 11:00:00 [facility] 2019-12-31 2019-12-31 Outpatient LAZARO [facility] [id number] [place] 00:00:00 00:00:00 SAMEER 570 Method i 2019-12-31 2019-12-31 Outpatient LAZARO [facility] [id number] [place] 00:00:00 00:00:00 SAMEER 000 Method i 2019-11-07 2019-11-07 Outpatient R RASHMI, [facility] [id number] Univers 12:37:12 23:59:00 ERMA [facility] 2019-10-28 2019-10-28 Outpatient R NASIR MEJIA [facility] [id number] Univers 15:15:00 15:15:00 [facility] 2019-10-14 2019-10-14 Outpatient R NEENA, [facility] [id number] Univers 15:00:00 15:00:00 [facility] 2019-09-03 2019-09-03 Outpatient R [facility] [id number] Univers 10:30:00 10:30:00 [facility] 2019-07-10 2019-07-10 Outpatient R FRANCES, [facility] [id number] Univers 11:00:00 11:00:00 ALLISON [facility] 2019-05-29 2019-05-29 Outpatient R ATTYADIRA, [facility] [id number] Univers 13:45:00 13:45:00 [facility] 2019-05-20 2019-05-21 Outpatient [place] [id number] Memoria 14:43:00 05:59:[address] [facility] 2019-05-20 2019-05-21 Outpatient [place] [id number] Memoria 14:43:00 05:59:[address] [facility] 2019-05-20 2019-05-20 Outpatient Aloki, MHSE MHSE [id number] 08:43:00 23:59:00 Ole 56 2019-05-20 2019-05-20 Outpatient MHSE MHSE [id number] MH 08:43:00 08:43:00 [facility] 2019-05-16 2019-05-16 Outpatient Madie CHAUDHARY [facility] [id number] [facility] 09:30:00 10:18:23 SETH faith [facility] 2019-04-09 2019-04-09 Appointmen CHARY VALVERDE Thoracic [id number] [place] 14:00:00 14:00:00 t; OLE VALVERDE Surgery - Physici FARZANEH, M.D. [place] ans M.D. 2019-04-08 2019-04-08 Bedded nullFlavo [facility] [id number] Memoria 16:02:00 20:30:00 Outpatient r Spurger [address] [facility] 2019-04-08 2019-04-08 Bedded nullFlavo [facility] [id number] Memoria 16:02:00 20:30:00 Outpatient r Rocky [address] [facility] 2019-04-08 2019-04-08 Outpatient Aloki, MHSE MHSE [id number] 10:02:00 14:30:00 Ole 55 2019-04-07 2019-04-08 Outpatient nullFlavo [facility] [id number] Memoria 16:26:00 05:59:[address] [facility] 2019-04-07 2019-04-08 Outpatient nullFlavo [facility] [id number] Memoria 16:26:00 05:59:[address] [facility] 2019-04-07 2019-04-07 Outpatient Aloki, MHSE MHSE [id number] 10:26:00 23:59:00 Ole 54 2019-03-19 2019-03-19 Appointmen CHARY VALVERDE Thoracic [id number] [place] 15:00:00 15:00:00 t; OLE VALVERDE Surgery - Physici FARZANEH, M.D. [place] ans M.D. 2019-03-05 2019-03-05 CHARY Ornelas [facility] [id number] [place] 10:45:00 10:45:00 t; Eran MATTHEW Phy kaylee Caal M.D. 2019-02-12 2019-02-12 [facility] [id number] Common 14:00:00 14:00:00 t Bone Bone and Spiri t and Joint Joint - [facility] 2019-02-03 2019-02-03 Outpatient [facility] [id number] Common 09:00:00 09:00:00 t Bone Bone and Spiri t and Joint Joint - [facility] 2018-10-30 2018-10-30 Outpatient [facility] [id number] Common 15:00:00 15:00:00 t Bone Bone and Spiri t and Joint Joint - [facility] 2018-10-25 2018-10-25 Outpatient [facility] [id number] Common 08:30:00 08:30:00 t Bone Bone and Spiri t and Joint Joint - [facility] 2018-10-23 2018-10-24 Outpatient [place] [id number] Memoria 19:23:00 04:59:00 madie Hidalgo 53 [facility] 2018-10-23 2018-10-24 Outpatient [place] [id number] Memoria 19:23:00 04:59:00 madie Vergara [facility] 2018-10-23 2018-10-23 Outpatient Matias, SHLOMO [facility] [id number] 14:23:00 23:59:00 Yazmin Vergara 2018-08-26 2018-08-26 Out[facility] [id number] Common 14:30:00 14:30:00 t Bone Bone and Spiri t and Joint Joint - [facility] 2018-05-13 2018-05-13 Outpatient [facility] [id number] Common 14:30:00 14:30:00 t Bone Bone and Spiri t and Joint Joint - [facility] 2018-05-01 2018-05-01 Outpatient [facility] [id number] Common 09:30:00 09:30:00 t Bone Bone and Spiri t and Joint Joint - [facility] 2018-03-05 2018-03-05 [facility] [id number] [place] 13:15:00 13:15:00 t; Eran MATTHEW Multi-Speci franco [place]4 duy MATTHEW M.D. 2018-03-05 2018-03-05 [facility] [id number] [place] 13:15:00 13:15:00 t; Eran MATTHEW [facility] kaylee Caal M.D. 2017-12-31 2017-12-31 [facility] [id number] [place] 09:45:00 09:45:00 t; Eran MATTHEW Multi-Speci franco [place] [facility] duy MATTHEW M.D. 2017-11-29 2017-11-30 Outpatient nullFlavo [facility] [id number] Memoria 15:54:00 04:59:[address] [facility] 2017-11-29 2017-11-30 Outpatient nullFlavo [facility] [id number] Memoria 15:54:00 04:59:[address] [facility] 2017-11-29 2017-11-29 Outpatient Jeremiah, MHSE MHSE [id number] 10:54:00 23:59:00 Braxton 00 2017-11-29 2017-11-29 [facility] [id number] [place] 14:15:00 14:15:00 t; Eran MATTHEW Multi-Speci franco [place] duy MATTHEW M.D. 2017-11-22 2017-11-23 Day nullFlavo [facility] [id number] Memoria 13:47:00 04:59:00 Surgery r Spurger 52 l [facility] 2017-11-22 2017-11-23 Day nullFlavo [facility] [id number] Memoria 13:47:00 04:59:00 Surgery r Spurger 52 l [facility] 2017-11-22 2017-11-22 Outpatient Juice [facility] [id number] 08:47:00 23:59:00 Robert [place]án 52 2017-11-13 2017-11-13 Appointzulema MCMAHAN, CHARY Taylor [id number] [place] 14:00:00 14:00:00 t; ROBERT MCMAHAN M.D. Surgery Lluvia JONES M.D. Specialty ans 2017-10-19 2017-10-19 Appointzulema [facility] [id number] [place] 13:30:00 13:30:00 t; Eran MATTHEW [facility] ELVIEcox [place] Eran MATTHEW 2017-08-01 2017-08-02 Outpatient nullFlavo [facility] [id number] Memoria 17:40:00 04:59:00 r Spurger 80 [facility] 2017-08-01 2017-08-02 Outpatient nullFlavo [facility] [id number] Memoria 17:40:00 04:59:00 r Spurger 80 [facility] 2017-08-01 2017-08-01 Outpatient SHLOMO Hodges [facility] [id number] 12:40:00 23:59:00 Adnan 80 Ramos 2017-07-10 2017-07-11 Outpatient nullFlavo [facility] [id number] Memoria 18:00:00 05:59:00 r Spurger 51 [facility] 2017-07-10 2017-07-11 Outpatient nullFlavo [facility] [id number] Memoria 18:00:00 05:59:00 r Rocky 51 [facility] 2017-07-10 2017-07-10 Outpatient SHLOMO Daniels [place] [id number] 12:00:00 23:59:00 Braxton 51 2017-05-21 2017-05-22 Outpatient nullFlavo [facility] [id number] Memoria 17:13:00 05:59:00 r Rocky 50 [facility] 2017-05-21 2017-05-22 Outpatient nullFlavo [facility] [id number] Memoria 17:13:00 05:59:00 r Spurger 50 [facility] 2017-05-21 2017-05-21 Outpatient SHLOMO Daniels [place] [id number] 11:13:00 23:59:00 Braxton 50 2017-05-21 2017-05-21 Outpatient Jeremiah, MHSE MHSE [id number] 11:13:00 23:59:00 Braxton 50 2017-02-27 2017-03-01 Inpatient nullFlavo [facility] [id number] Memoria 11:18:00 23:53:00 r Rocky 48 [facility] 2017-02-27 2017-03-01 Inpatient nullFlavo [facility] [id number] Memoria 11:18:00 23:53:00 r Rocky 48 [facility] 2017-02-27 2017-03-01 Outpatient Crump, MHSE MHSE [id number] 06:18:00 18:53:00 Henry Francisco 48 2017-02-14 2017-02-14 Bedded nullFlavo [facility] [id number] Memoria 16:21:00 22:15:00 Outpatient r Spurger 49 [facility] 2017-02-14 2017-02-14 Bedded nullFlavo [facility] [id number] Memoria 16:21:00 22:15:00 Outpatient r Rocky 49 [facility] 2017-02-14 2017-02-14 Outpatient Elvie, MHSE MHSE [id number] 11:21:00 17:15:00 Juan Page 49 2017-02-12 2017-02-12 [facility] [place], [facility] UTP [id number] [place] 08:00:00 08:00:00 t; Eran MATTHEW ans MARC, M.D. 2016-09-14 2016-09-14 [facility] [place], [facility] UTP [id number] [place] 10:15:00 10:15:00 t; Eran MATTHEW ans MARC, M.D. 2016-08-23 2016-08-23 [facility] [id number] Memoria 15:45:00 19:26:00 Outpatient r Spurger 47 [facility] 2016-08-23 2016-08-23 [facility] [id number] Memoria 15:45:00 19:26:00 Outpatient r Rocky 47 [facility] 2016-08-23 2016-08-23 Outpatient Elvie, MHSE MHSE [id number] 10:45:00 14:26:00 Juan Page 47 2016-06-27 2016-06-27 [facility] ELVIE, [facility] [id number] [place] 14:00:00 14:00:00 t; Eran MATTHEW Phy kaylee Caal M.D. 2016-06-22 2016-06-23 [facility] [id number] Memoria 12:54:00 05:59:00 r Rocky 46 [facility] 2016-06-22 2016-06-23 [facility] [id number] Memoria 12:54:00 05:59:00 r Rocky 46 [facility] 2016-06-22 2016-06-22 Outpatient Abram, SE MHSE [id number] 06:54:00 23:59:00 Ole 46 2016-06-19 2016-06-19 [facility] [id number] Memoria 14:36:00 18:55:00 Outpatient r Rocky 45 [facility] 2016-06-19 2016-06-19 [facility] [id number] Memoria 14:36:00 18:55:00 Outpatient r Rocky 45 [facility] 2016-06-19 2016-06-19 Outpatient Aloki, SE MHSE [id number] 08:36:00 12:55:00 Ole 45 2016-06-14 2016-06-15 [facility] [id number] Memoria 18:51:00 05:59:00 r Rocky 44 [facility] 2016-06-14 2016-06-15 [facility] [id number] Memoria 18:51:00 05:59:00 r Rocky 44 [facility] 2016-06-14 2016-06-14 Outpatient Aloki, SE MHSE [id number] 12:51:00 23:59:00 Ole 44 2016-03-28 2016-03-29 [facility] [id number] Memoria 18:40:00 05:59:00 r Rocky 43 [facility] 2016-03-28 2016-03-29 [facility] [id number] Memoria 18:40:00 05:59:00 r Rocky 43 [facility] 2016-03-28 2016-03-28 Outpatient Jeremiah, MHSE MHSE [id number] 12:40:00 23:59:00 Braxton Villalobos 2016-02-21 2016-02-21 Outpatient MHIE MHIE [id number] Memoria 15:15:00 15:15:00 02 [facility] 2016-02-21 2016-02-21 Outpatient MHIE MHIE [id number] Memoria 15:15:00 15:15:00 02 [facility] 2016-02-21 2016-02-21 Outpatient MHIE MHIE [id number] Memoria 14:30:00 14:30:00 01 [facility] 2016-02-21 2016-02-21 Outpatient MHIE MHIE [id number] Memoria 14:30:00 14:30:00 01 [facility] 2016-02-15 2016-02-15 [facility] [id number] Memoria 12:35:00 16:29:00 Outpatient r Spurger 42 [facility] 2016-02-15 2016-02-15 [facility] [id number] Memoria 12:35:00 16:29:00 Outpatient r Spurger 42 [facility] 2016-02-15 2016-02-15 Outpatient Claribel MHSE MHSE [id number] 07:35:00 11:29:00 yZeb 42 Billy 2015-09-28 2015-09-28 [facility] [id number] Memoria 14:13:00 20:30:00 Outpatient r Rocky 40 [facility] 2015-09-28 2015-09-28 [facility] [id number] Memoria 14:13:00 20:30:00 Outpatient r Rocky 40 [facility] 2015-09-28 2015-09-28 Outpatient Abram, MHSE MHSE [id number] 09:13:00 15:30:00 Ole Hathaway 2015-07-27 2015-07-28 [facility] [id number] Memoria 15:51:00 04:59:00 r Spurger 75 [facility] 2015-07-27 2015-07-28 [facility] [id number] Memoria 15:51:00 04:59:00 r Spurger 75 [facility] 2015-07-27 2015-07-27 Outpatient Jeremiah, MHSE MHSE [id number] 10:51:00 23:59:00 Braxton 75 2015-07-06 2015-07-07 [facility] [id number] Memoria 22:33:00 22:10:00 Observatio r Rocky 52 l n Patient [facility] 2015-07-06 2015-07-07 [facility] [id number] Memoria 22:33:00 22:10:00 Observatio r Rocky 52 l n Patient [facility] 2015-07-06 2015-07-07 Outpatient Jeremiah, MHSE MHSE [id number] 16:33:00 16:10:00 Braxton 52 2015-07-06 2015-07-07 [facility] [id number] Memoria 18:13:00 05:59:00 r Rocky 39 [facility] 2015-07-06 2015-07-07 [facility] [id number] Memoria 18:13:00 05:59:00 r Rocky 39 [facility] 2015-07-06 2015-07-06 Outpatient SHLOMO Valverde MHSE [id number] 12:13:00 23:59:00 Ole 39 2015-07-02 2015-07-02 OBS [facility] [id number] Memoria 16:44:00 23:22:00 Surgery r Spurger 38 [facility] 2015-07-02 2015-07-02 O[facility] [id number] Memoria 16:44:00 23:22:00 Surgery r Rocky 38 [facility] 2015-07-02 2015-07-02 Outpatient Abram, SHLOMO MHSE [id number] 10:44:00 17:22:00 Ole 38 2015-07-01 2015-07-02 [facility] [id number] Memoria 19:40:00 05:59:00 r Spurger 37 [facility] 2015-07-01 2015-07-02 [facility] [id number] Memoria 19:40:00 05:59:00 r Rocky 37 [facility] 2015-07-01 2015-07-01 Outpatient Abram MHSE MHSE [id number] 13:40:00 23:59:00 [facility] 37 2015-06-30 2015-07-01 [facility] [id number] Memoria 19:12:00 05:59:00 r Rocky 36 [facility] 2015-06-30 2015-07-01 [facility] [id number] Memoria 19:12:00 05:59:00 r Rocky 36 [facility] 2015-06-30 2015-06-30 Outpatient Abram SE SE [id number] 13:12:00 23:59:00 [place] [id number] 2014-12-29 2014-12-30 [facility] [id number] Memoria 12:32:00 04:59:00 r Rocky 35 [facility] 2014-12-29 2014-12-30 [facility] [id number] Memoria 12:32:00 04:59:00 r Rocky 35 [facility] 2014-12-29 2014-12-29 Outpatient Jeremiah MHSE SE [id number] 07:32:00 23:59:00 Braxton 35 2014-08-24 2014-08-25 [facility] [id number] Memoria 19:49:00 04:59:00 r Rocky 34 [facility] 2014-08-24 2014-08-25 [facility] [id number] Memoria 19:49:00 04:59:00 r Rocky 34 [facility] 2014-08-24 2014-08-24 Outpatient Sheridan 2.16.840. 2.16.840.1. 3 [id number] 14:49:00 23:59:00 Chase L [id number]. [id number] 3.615.0.1 5.0.834 94 7353-03-31 2014-08-11 OBS [facility] [id number] Memoria 10:30:00 17:05:00 Surgery r Spurger 33 [facility] 2014-08-11 2014-08-11 OBS Day nullFlavo [facility] [id number] Memoria 10:30:00 17:05:00 Surgery r Spurger 33 [facility] 2014-08-11 2014-08-11 Outpatient Banki, 2.16.840. 2.16.840.1. 3 [id number] 05:30:00 12:05:00 Ole [id number]. [id number] 3.615.0.1 5.0.646 26 2910-01-21 2014-06-04 [facility] [id number] Memoria 17:26:00 05:59:[address] 2014-06-03 2014-06-04 [facility] [id number] Memoria 17:26:00 05:59:00 r Spurger 21 [facility] 2014-06-03 2014-06-03 Outpatient Banki, 2.16.840. 2.16.840.1. 3 [id number] 11:26:00 23:59:00 Ole [id number]. [id number] 3.615.0.1 5.0.497 61 7272-01-06 2014-05-20 OBS nullFlavo [facility] [id number] Memoria 17:52:00 22:00:00 Observatio r Spurger 32 l n Patient [facility] 2014-05-19 2014-05-20 [facility]BS [facility] [id number] Memoria 17:52:00 22:00:00 Observatio r Spurger 32 l n Patient [facility] 2014-05-19 2014-05-20 Outpatient Jeremiah, 2.16.840. 2.16.840.1. 3 [id number] 11:52:00 16:00:00 Braxton [id number]. [id number] 3.615.0.1 5.0.875 05 5350-12-16 2014-04-28 [facility] [id number] Memoria 12:12:00 16:10:00 Outpatient r Rocky [address] [facility] 2014-04-28 2014-04-28 Bedded nullLeaho [facility] [id number] Memoria 12:12:00 16:10:00 Outpatient r Spurger [address] [facility] 2014-04-28 2014-04-28 Outpatient Banki, 2.16.840. 2.16.840.1. 3 [id number] 06:12:00 10:10:00 Ole 1.748050. [id number] 30 3.615.0.1 5.0.158 97 1895-11-24 2014-04-07 Outpatient nullFlavo [facility] [id number] Memoria 18:28:00 05:59:00 r Rocky 29 [facility] 2014-04-06 2014-04-07 [facility] [id number] Memoria 18:28:00 05:59:00 r Rocky 29 [facility] 2014-04-06 2014-04-06 Outpatient Banki, 2.16.840. 2.16.840.1. 3 [id number] 12:28:00 23:59:00 Ole 1.806719. [id number] 3.615.0.1 5.0.683 82 7730-02-26 2013-07-09 EC nullFlavo [facility] [id number] Memoria 16:18:00 21:33:00 Emergency r Spurger [id number] l [address] 2013-07-09 2013-07-09 EC nullFlavo [facility] [id number] Memoria 16:18:00 21:33:00 Emergency r Spurger [id number] l [address] 2013-07-09 2013-07-09 Outpatient [place], 2.16.840. 2.16.840.1. 3 [id number] 10:18:00 15:33:00 Bindu [id number]. [id number] [place] 3.615.0.1 5.0.753 00 8615-02-26 2013-07-09 Emergency nullFlavo [id number] Memoria 10:18:00 15:33:00 r [facility] 28 [facility] 2013-07-09 2013-07-09 Emergency nullFlavo [id number] Memoria 10:18:00 15:33:00 [facility]-07 2013-07-07 Outpatient 2.16.840. 2.16.840.1. 3 [id number] Memoria 08:22:00 23:59:00 [id number]. [id number] l 3.615.0.1 5.0.101 [facility]bi n [facility] 2013-07-07 2013-07-07 Outpatient nullFlavo [id number] Memoria 08:22:00 08:22:00 r [facility] 2013-06-19 2013-06-19 Outpatient 2.16.840. 2.16.840.1. 3 [id number] Memoria 13:36:00 23:59:00 [id number]. [id number] l 3.615.0.1 5.0.101 Obi n [facility] 2013-06-19 2013-06-19 Outpatient nullFlavo [id number] Memoria 13:36:00 23:59:00 r [facility] 26 [place] 2013-06-19 2013-06-19 Outpatient nullFlavo [id number] Memoria 13:36:00 23:59:00 r [facility] 26 Rocky 2012-12-27 2012-12-27 Outpatient nullFlavo [id number] Memoria 16:26:00 16:26:00 r [facility] 25 Rocky 2012-12-27 2012-12-27 Outpatient nullFlavo [id number] Memoria 16:26:00 16:26:00 r [facility] 25 deborah Hidalgo 2012-12-26 2012-12-26 Outpatient nullFlavo [id number] Memoria 15:38:00 15:38:00 r [facility] 23 [place] 2012-12-26 2012-12-26 Outpatient nullFlavo [id number] Memoria 15:38:00 15:38:00 r [facility] 23 l Rocky 2012-12-23 2012-12-23 FABIAN nullFlavo [id number] Memoria 05:58:00 10:05:00 r [facility] 24 l Rocky 2012-12-23 2012-12-23 FABIAN nullFlavo [id number] Memoria 05:58:00 10:05:00 r [facility] 24 l Rocky 2013-10-14 2012-10-16 EST, SOILA CM [id number] emoria 09:00:00 00:06:10 Provider: Adela Tate, Status: Pen, Time: 9:00 AM 2012-10-15 2012-10-16 AUDIT SOILA CM [id number] M emoria 19:06:31 00:06:10 deborah Hidalgo Results Test Description Test Time Test Comments Results Result [facility] e Comments - RMVL CV TOVA WO 2022-04-14 PORT/PUMP 14[facility]57:00 [facility] 1945 Sex: F Radha cain Name: JESUS JACOBS Unit No: [id number] EXAMS: CPT CODE: [id number] RMVL CV TOVA WO PORT/PUMP 40088 W1 TUNNELED CATHETER REMOVAL CLINICAL INDICATION: Completion of Therapy OPERATORS: Carina Mendoza M.D. CATHETER SITE: Right internal jugular vein TECHNIQUE: The risks, benefits, and alternatives to the procedure were explained to the patient. Written informed consent was obtained. The existing catheter was prepped and draped in sterile fashion. The heparin or alternative packing solution was aspirated from each lumen and the ports flushed with saline. Using blunt dissection, the cuff was dissected free. The catheter was removed, and hemostasis achieved with manual compression at both the venotomy and dermatotomy sites. A sterile, occlusive dressing was placed at the tunnel exit site. The procedure was well tolerated, and the patient discharged to the holding area in satisfactory condition. FINDINGS: 1. There is no gross evidence for tunnel tract or exit site infection. 2. The catheter cuff is intact and completely removed. 3. A follow-up chest radiograph demonstrates complete removal of the catheter. Dobbhoff tube is no longer present. There is a small to moderate right and trace left pleural effusion. No pneumothorax is present. Impression: Uneventful removal of tunneled catheter as described. at 1457 Reported and signed by: CARINA MENDOZA M.D. CC: Hernán Ford MD; Ephraim Pearce MD Technologist: Khris Soto Time: DAP (Gy m2): Air Kerma (mGy): Trscr Dt/Tm: 04/14/2022 (0015) by:[email or web address] Printed Date/Time: 04/17/2022 (9346) Name: JESUS JACOBS [facility] Phys: Ephraim Early MD [address] : 1945 Age: 76 Sex: [place] [address] Loc: [id number] 1 Exam Date: 04/14/2022 Status: DIS IN PH: FAX: PAGE 1 Signed Report - RMVL CV TOVA WO 2022-04-14 PORT/PUMP 14:57:00 [facility] 1945 Sex: F Radha cain Name: JESUS JACOBS Unit No: [id number] EXAMS: CPT CODE: [id number] RMVL CV TOVA WO PORT/PUMP 13079 W1 TUNNELED CATHETER REMOVAL CLINICAL INDICATION: Completion of Therapy OPERATORS: Carina Mendoza M.D. CATHETER SITE: Right internal jugular vein TECHNIQUE: The risks, benefits, and alternatives to the procedure were explained to the patient. Written informed consent was obtained. The existing catheter was prepped and draped in sterile fashion. The heparin or alternative packing solution was aspirated from each lumen and the ports flushed with saline. Using blunt dissection, the cuff was dissected free. The catheter was removed, and hemostasis achieved with manual compression at both the venotomy and dermatotomy sites. A sterile, occlusive dressing was placed at the tunnel exit site. The procedure was well tolerated, and the patient discharged to the holding area in satisfactory condition. FINDINGS: 1. There is no gross evidence for tunnel tract or exit site infection. 2. The catheter cuff is intact and completely removed. 3. A follow-up chest radiograph demonstrates complete removal of the catheter. Dobbhoff tube is no longer present. There is a small to moderate right and trace left pleural effusion. No pneumothorax is present. Impression: Uneventful removal of tunneled catheter as described. at 1457 Reported and signed by: CARINA MENDOZA M.D. CC: Hernán Ford MD; Ephraim Pearce MD Technologist: Khris Soto Time: DAP (Gy m2): Air Kerma (mGy): Trscr Dt/Tm: 04/14/2022 (4357) by:[email or web address] Printed Date/Time: 04/14/2022 (4617) Name: JESUS JACOBS [facility] Phys: Ephraim Early MD [address] DOB: 1945 Age: 76 Sex: [place] [address] Loc: [id number] 1 Exam Date: 04/14/2022 Status: ADM IN PH: FAX: PAGE 1 Signed Report BASIC METABOLIC PANEL 2022-04-14 12:07:00 Test Item Value Reference Range Interpretation Comme nts SODIUM (test code = NA) 139 mmol/L 136-145 N Plea se note: New Reference Range Jun 2020 POTASSIUM (test code = 4.5 mmol/L 3.5-5.1 N K) CHLORIDE (test code = 110 mmol/L 98-107 H Please note: New Reference CL) Range Jun 2020 CARBON DIOXIDE (test 22 mmol/L 20-31 N Please note: New Reference code = CO2) Range Jun 2020 GLUCOSE (test code = 122 mg/dL 74-106 H Please note: New Reference GLU) Range Jun 2020 BLOOD UREA NITROGEN 19 mg/dL 9-23 N Please n ote: New Reference (test code = BUN) Range Jun 2020 GLOMERULAR FILTRATION >=60 max estimate >60 T he Glomerular Filtration RATE (test code = GFR) mL/min Rate is a calculated parameterbased on serum Creatinine, pat ient age and sex. GFR values less than 60 mL/min/1.73 squ are meters are indicative ofChronic Kidney Disease. Values less than 15 mL/min/ 1.73square meters indicate Kidney failure. The ca lculation forGFR is based on the CKD-EPI (2020) calculation. This formulais race indifferent and is the recommended for rodolfo for GFRby the [facility] Kidney Foundation for Adults.The GFR will not ca lculate if the sex is unkn own or if thepatient's ag e is <18 years. CREATININE (test code = 0.60 mg/dL 0.55-1.02 N Plea se note: New Reference CREAT) Range Jun 2020 CALCIUM (test code = CA) 7.6 mg/dL 8.7-10.4 L Ple ase note: New Reference Range Jun 2020 [id number] 12:07:00 Test Item Value Reference Range Interpretation Comments MAGNESIUM (test code = 1.8 mg/dL 1.6-2.6 N Pleas e note: New MAG) Reference Range Jun 2020 [id number] 11:44:00 Test Item Value Reference Range Interpretation Comments GLUBED (test code = GLUBED) 120 MG/DL 70-105 H CBC W/AUTO [id number] 11:42:00 Test Item Value Reference Range Interpretation Comments WHITE BLOOD CELL (test code = 9.6 x10 3/uL 4.8-10.8 N WBC) RED BLOOD CELL (test code = 3.01 x10 6/uL 4.20-5.40 L RBC) HEMOGLOBIN (test code = HGB) 8.9 g/dL 12.0-16.0 L HEMATOCRIT (test code = HCT) 28.4 % 37.0-47.0 L MEAN CELL VOLUME (test code = 94.4 fL 81.0-99.0 N MCV) MEAN CELL HGB (test code = MCH) 29.6 pg 27-31 N MEAN CELL HGB CONCENTRATION 31.3 G/DL 33-36.5 L (test code = MCHC) RED CELL DISTRIBUTION WIDTH 20.7 % 12.9-16.9 H (test code = RDW) PLATELET COUNT (test code = 319 x10 3/uL 150-440 N PLT) MEAN PLATELET VOLUME (test code 10.5 fL 8.9-12.4 N = MPV) NEUTROPHIL % (test code = NT%) 62.6 % 42.2-75.2 N LYMPHOCYTE % (test code = LY%) 29.7 % 20.5-51.1 N MONOCYTE % (test code = MO%) 5.2 % 1.7-9.3 N EOSINOPHIL % (test code = EO%) 1.8 % 0.0-7.0 N BASOPHIL % (test code = BA%) 0.2 % 0-2.5 N NEUTROPHIL # (test code = NT#) 5.99 x10 3/uL 1.80-7.70 N LYMPHOCYTE # (test code = LY#) 2.85 x10 3/uL 1.00-4.80 N MONOCYTE # (test code = MO#) 0.50 x10 3/uL 0.00-0.80 N EOSINOPHIL # (test code = EO#) 0.17 x10 3/uL 0.00-0.45 N BASOPHIL # (test code = BA#) 0.02 x10 3/uL 0.0-0.20 N [id number] 06:13:00 Test Item Value Reference Range Interpretation Comments GLUBED (test code = GLUBED) 85 MG/DL 70-105 N [id number] 00:12:00 Test Item Value Reference Range Interpretation Comments GLUBED (test code = GLUBED) 85 MG/DL 70-105 N [id number] 17:43:00 Test Item Value Reference Range Interpretation Comments GLUBED (test code = GLUBED) 109 MG/DL 70-105 H [id number] 11:36:00 Test Item Value Reference Range Interpretation Comments GLUBED (test code = GLUBED) 129 MG/DL 70-105 H [id number] 07:18:00 Test Item Value Reference Range Interpretation Comments GLUBED (test code = GLUBED) 98 MG/DL 70-105 N COMPREHENSIVE METABOLIC [id number] 05:23:00 Test Item Value Reference Range Interpretation Comments SODIUM (test code 144 mmol/L 136-145 N Please not e: New = NA) Reference Range Jun 2020 POTASSIUM (test 4.0 mmol/L 3.5-5.1 N code = K) CHLORIDE (test 114 mmol/L 98-107 H Please note: New code = CL) Reference Range Jun 2020 CARBON DIOXIDE 22 mmol/L 20-31 N Please note: New (test code = CO2) Reference Range Jun 2020 GLUCOSE (test code 103 mg/dL 74-106 N Please no te: New = GLU) Reference Range Jun 2020 BLOOD UREA 17 mg/dL 9-23 N Please note: Ne w NITROGEN (test Reference Ran ge Feb code = BUN) 2020 GLOMERULAR >=60 max >60 The Glomerular FILTRATION RATE estimate mL/min Filtratio n Rate is a (test code = GFR) calculated parameterbased on serum Creatinin e, patient age and sex. GFR valuesless than 60 mL/min/1.73 square meters are [place] cative ofChronic Kidne y Disease. Values less than 15 mL/min/1.73squa re meters indicate Kidney failure. The calculation for GFR is based on the CK D-EPI (2020) calculat ion. This formulais race indifferent and is the recommended formula for GFR by the National Kidney Foundation for Adults.The GFR will not calculate i f the sex is unknown or if thepatient's ag e is <18 years. CREATININE (test 0.60 mg/dL 0.55-1.02 N Please note : New code = CREAT) Reference Rang e Jun 2020 TOTAL PROTEIN 5.5 g/dL 5.7-8.2 L Please note: N ew (test code = PROT) Reference Range Jun 2020 ALBUMIN (test code 2.4 g/dL 3.2-4.8 L Please no te: New = ALB) Reference Range Jun 2020 CALCIUM (test code 7.5 mg/dL 8.7-10.4 L Please no te: New = CA) Reference Range Jun 2020 BILIRUBIN TOTAL 0.5 mg/dL 0.3-1.2 N Please note: New (test code = BILT) Reference Range Jun 2020 SGOT/AST (test 46 U/L <34 H Please note: New code = AST) Reference Range Jun 2020 SGPT/ALT (test 56 U/L 10-49 H Please note: New code = ALT) Reference Range Jun 2020 ALKALINE 171 U/L 46-116 H Please note: Ne w PHOSPHATASE (test Reference Range Feb code = ALKP) 2020 [id number] 05:23:00 Test Item Value Reference Range Interpretation Comments MAGNESIUM (test code = 1.6 mg/dL 1.6-2.6 N Pleas e note: New MAG) Reference Range Jun 2020 CBC W/AUTO [id number] 05:18:00 Test Item Value Reference Range Interpretation Comments WHITE BLOOD CELL (test code = 8.2 x10 3/uL 4.8-10.8 N WBC) RED BLOOD CELL (test code = 2.73 x10 6/uL 4.20-5.40 L RBC) HEMOGLOBIN (test code = HGB) 8.1 g/dL 12.0-16.0 L HEMATOCRIT (test code = HCT) 26.2 % 37.0-47.0 L MEAN CELL VOLUME (test code = 96.0 fL 81.0-99.0 N MCV) MEAN CELL HGB (test code = MCH) 29.7 pg 27-31 N MEAN CELL HGB CONCENTRATION 30.9 G/DL 33-36.5 L (test code = MCHC) RED CELL DISTRIBUTION WIDTH 21.9 % 12.9-16.9 H (test code = RDW) PLATELET COUNT (test code = 293 x10 3/uL 150-440 N PLT) MEAN PLATELET VOLUME (test code 10.6 fL 8.9-12.4 N = MPV) NEUTROPHIL % (test code = NT%) 61.6 % 42.2-75.2 N LYMPHOCYTE % (test code = LY%) 31.4 % 20.5-51.1 N MONOCYTE % (test code = MO%) 5.0 % 1.7-9.3 N EOSINOPHIL % (test code = EO%) 1.6 % 0.0-7.0 N BASOPHIL % (test code = BA%) 0.2 % 0-2.5 N NEUTROPHIL # (test code = NT#) 5.07 x10 3/uL 1.80-7.70 N LYMPHOCYTE # (test code = LY#) 2.59 x10 3/uL 1.00-4.80 N MONOCYTE # (test code = MO#) 0.41 x10 3/uL 0.00-0.80 N EOSINOPHIL # (test code = EO#) 0.13 x10 3/uL 0.00-0.45 N BASOPHIL # (test code = BA#) 0.02 x10 3/uL 0.0-0.20 N [id number] 00:28:00 Test Item Value Reference Range Interpretation Comments GLUBED (test code = GLUBED) 107 MG/DL 70-105 H [id number] 17:05:00 Test Item Value Reference Range Interpretation Comments GLUBED (test code = GLUBED) 101 MG/DL 70-105 N [id number] 11:54:00 Test Item Value Reference Range Interpretation Comments GLUBED (test code = GLUBED) 133 MG/DL 70-105 H [id number] 06:51:00 Test Item Value Reference Range Interpretation Comments GLUBED (test code = GLUBED) 76 MG/DL 70-105 N [id number] 23:53:00 Test Item Value Reference Range Interpretation Comments GLUBED (test code = GLUBED) 91 MG/DL 70-105 N [id number] 17:10:00 Test Item Value Reference Range Interpretation Comments GLUBED (test code = GLUBED) 120 MG/DL 70-105 H [id number] 11:02:00 Test Item Value Reference Range Interpretation Comments GLUBED (test code = GLUBED) 137 MG/DL 70-105 H [id number] 05:50:00 Test Item Value Reference Range Interpretation Comments GLUBED (test code = GLUBED) 85 MG/DL 70-105 N BASIC METABOLIC [id number] 03:49:00 Test Item Value Reference Range Interpretation Comments SODIUM (test code 149 mmol/L 136-145 H Please not e: New = NA) Reference Range Jun 2020 POTASSIUM (test 3.9 mmol/L 3.5-5.1 N code = K) CHLORIDE (test 119 mmol/L 98-107 H Please note: New code = CL) Reference Range Jun 2020 CARBON DIOXIDE 19 mmol/L 20-31 L Please note: New (test code = CO2) Reference Range Jun 2020 GLUCOSE (test code 109 mg/dL 74-106 H Please no te: New = GLU) Reference Range Jun 2020 BLOOD UREA 19 mg/dL 9-23 N Please note: Ne w NITROGEN (test Reference Ran ge Feb code = BUN) 2020 GLOMERULAR >=60 max >60 The Glomerular FILTRATION RATE estimate mL/min Filtratio n Rate is a (test code = GFR) calculated parameterbased on serum Creatinin e, patient age and sex. GFR valuesless than 60 mL/min/1.73 square meters are [place] cative ofChronic Kidne y Disease. Values less than 15 mL/min/1.73squa re meters indicate Kidney failure. The calculation for GFR is based on the CK D-EPI (2020) calculat ion. This formulais race indifferent and is the recommended formula for GFR by the National Kidney Foundation for Adults.The GFR will not calculate i f the sex is unknown or if thepatient's ag e is <18 years. CREATININE (test 0.70 mg/dL 0.55-1.02 N Please note : New code = CREAT) Reference Rang e Jun 2020 CALCIUM (test code 7.7 mg/dL 8.7-10.4 L Please no te: New = CA) Reference Range Jun 2020 COMPREHENSIVE METABOLIC [id number] 03:49:00 Test Item Value Reference Range Interpretation Comments TOTAL PROTEIN (test 5.5 g/dL 5.7-8.2 L Please n ote: New code = PROT) Reference Range Jun 2020 ALBUMIN (test code = 2.5 g/dL 3.2-4.8 L Please note: New ALB) Reference Range Jun 2020 BILIRUBIN TOTAL (test 0.7 mg/dL 0.3-1.2 N Please note: New code = BILT) Reference Range Jun 2020 SGOT/AST (test code = 43 U/L <34 H Please note: New AST) Reference Range Jun 2020 SGPT/ALT (test code = 73 U/L 10-49 H Please note: New ALT) Reference Range Jun 2020 ALKALINE PHOSPHATASE 160 U/L 46-116 H Please note: New (test code = ALKP) Reference Range Jun 2020 [id number] 03:49:00 Test Item Value Reference Range Interpretation Comments MAGNESIUM (test code = 1.7 mg/dL 1.6-2.6 N Pleas e note: New MAG) Reference Range Jun 2020 CBC W/AUTO [id number] 03:34:00 Test Item Value Reference Range Interpretation Comments WHITE BLOOD CELL (test code = 9.5 x10 3/uL 4.8-10.8 N WBC) RED BLOOD CELL (test code = 2.77 x10 6/uL 4.20-5.40 L RBC) HEMOGLOBIN (test code = HGB) 8.2 g/dL 12.0-16.0 L HEMATOCRIT (test code = HCT) 26.3 % 37.0-47.0 L MEAN CELL VOLUME (test code = 94.9 fL 81.0-99.0 N MCV) MEAN CELL HGB (test code = MCH) 29.6 pg 27-31 N MEAN CELL HGB CONCENTRATION 31.2 G/DL 33-36.5 L (test code = MCHC) RED CELL DISTRIBUTION WIDTH 22.9 % 12.9-16.9 H (test code = RDW) PLATELET COUNT (test code = 279 x10 3/uL 150-440 N PLT) MEAN PLATELET VOLUME (test code 10.8 fL 8.9-12.4 N = MPV) NEUTROPHIL % (test code = NT%) 70.5 % 42.2-75.2 N LYMPHOCYTE % (test code = LY%) 22.5 % 20.5-51.1 N MONOCYTE % (test code = MO%) 5.9 % 1.7-9.3 N EOSINOPHIL % (test code = EO%) 0.5 % 0.0-7.0 N BASOPHIL % (test code = BA%) 0.2 % 0-2.5 N NEUTROPHIL # (test code = NT#) 6.65 x10 3/uL 1.80-7.70 N LYMPHOCYTE # (test code = LY#) 2.13 x10 3/uL 1.00-4.80 N MONOCYTE # (test code = MO#) 0.56 x10 3/uL 0.00-0.80 N EOSINOPHIL # (test code = EO#) 0.05 x10 3/uL 0.00-0.45 N BASOPHIL # (test code = BA#) 0.02 x10 3/uL 0.0-0.20 N [id number] 00:05:00 Test Item Value Reference Range Interpretation Comments GLUBED (test code = GLUBED) 94 MG/DL 70-105 N [id number] 17:34:00 Test Item Value Reference Range Interpretation Comments GLUBED (test code = GLUBED) 92 MG/DL 70-105 N - XR SWLW FUNC W/C [id number] 15:41:00 [facility] 1945 Sex: FPatient Name: JESUS JACOBS Unit No: [id number] EXAMS: CPT CODE: [id number] XR SWLW FUNC W/C V 16879 Modified Barium Swallow 04/10/2022 3:40 PM CLINICAL INDICATION: Dysphagia COMPARISON: None available. LOCATION: W1 IMPRESSION: With the speech language pathologist present, the patient was observed under real- time video fluoroscopy ingesting various consistencies of barium coated food castillo ffs. There was a single episode of flash penetration during ingestion of thin liquid. A full report from speech pathology will follow. PATIENT DOSE: 5.66 mGy at 1541 Reported and signed by: ROSALINDA COKER M.D. CC: Hernán Ford MD; Ephraim Pearce MD Technologist: Geronimo Soto Time: DAP (Gy m2): Air Kerma (mGy): Trscr Dt/Tm:04/10/2022 (1541) by:[email or web address] Printed Date/Time: 04/17/2022 (2315) Name: JESUS JACOBS [facility] Phys: Ephraim Early MD [address] : 1945 Age: 76 Sex: F [place] [address] Loc: P.0213 1 Exam Date: 04/10/2022 Status: DIS IN PH: FAX: PAGE1 Signed Report- XR SWLW FUNC W/C [id number] 15:41:00 [facility] : 1945 Sex: FPatient Name: JESUS JACOBS Unit No: [id number] EXAMS: CPT CODE: [id number] XR SWLW FUNC W/C V 17028 Modified Barium Swallow 04/10/2022 3:40 PM CLINICAL INDICATION: Dysphagia COMPARISON: None available. LOCATION: W1 IMPRESSION: With the speech language pathologist present, the patient was observed under real-time video fluoroscopy ingesting various consistencies of barium coated food stuffs. There was a single episode of flash penetration during ingestion of thin liquid. A full report from speech pathology will follow. PATIENT DOSE: 5.66 mGy at 1541 Reported and signed by: ROSALINDA COKER M.D. CC: Hernán Ford MD; Ephraim Pearce MD Technologist: Geronimo Soto Time: DAP (Gy m2): Air Kerma (mGy): Trscr Dt/Tm: 04/10/2022 (1541) by:[email or web address] Printed Date/Time: 04/10/2022 (6154) [facility]: Ephraim Early MD [address] : 1945 Age: 76 Sex: F [place] [address] Loc: P.0213 1 Exam Date: 04/10/2022 Status: ADM IN PH: FAX: PAGE 1 Signed [id number] 11:31:00 Test Item Value Reference Range Interpretation Comments GLUBED (test code = GLUBED) 109 MG/DL 70-105 H [id number] 06:23:00 Test Item Value Reference Range Interpretation Comments GLUBED (test code = GLUBED) 94 MG/DL 70-105 N [id number] 23:20:00 Test Item Value Reference Range Interpretation Comments GLUBED (test code = GLUBED) 102 MG/DL 70-105 N [id number] 17:48:00 Test Item Value Reference Range Interpretation Comments GLUBED (test code = GLUBED) 100 MG/DL 70-105 N [id number] 12:19:00 Test Item Value Reference Range Interpretation Comments GLUBED (test code = GLUBED) 81 MG/DL 70-105 N BASIC METABOLIC [id number] 05:33:00 Test Item Value Reference Range Interpretation Comments SODIUM (test code 148 mmol/L 136-145 H Please not e: New = NA) Reference Range Jun 2020 POTASSIUM (test 4.3 mmol/L 3.5-5.1 N code = K) CHLORIDE (test 118 mmol/L 98-107 H Please note: New code = CL) Reference Range Jun 2020 CARBON DIOXIDE 19 mmol/L 20-31 L Please note: New (test code = CO2) Reference Range Jun 2020 GLUCOSE (test code 88 mg/dL 74-106 N Please no te: New = GLU) Reference Range Jun 2020 BLOOD UREA 28 mg/dL 9-23 H Please note: Ne w NITROGEN (test Reference Ran ge Feb code = BUN) 2020 GLOMERULAR >=60 max >60 The Glomerular FILTRATION RATE estimate mL/min Filtratio n Rate is a (test code = GFR) calculated parameterbased on serum Creatinin e, patient age and sex. GFR valuesless than 60 mL/min/1.73 square meters are [place] cative ofChronic Kidne y Disease. Values less than 15 mL/min/1.73squa re meters indicate Kidney failure. The calculation for GFR is based on the CK D-EPI (2020) calculat ion. This formulais race indifferent and is the recommended formula for GFR by the National Kidney Foundation for Adults.The GFR will not calculate i f the sex is unknown or if thepatient's ag e is <18 years. CREATININE (test 0.60 mg/dL 0.55-1.02 N Please note : New code = CREAT) Reference Rang e Jun 2020 CALCIUM (test code 7.6 mg/dL 8.7-10.4 L Please no te: New = CA) Reference Range Jun 2020 CBC W/AUTO [id number] 05:18:00 Test Item Value Reference Range Interpretation Comments WHITE BLOOD CELL (test code = 12.0 x10 3/uL 4.8-10.8 H WBC) RED BLOOD CELL (test code = 2.86 x10 6/uL 4.20-5.40 L RBC) HEMOGLOBIN (test code = HGB) 8.4 g/dL 12.0-16.0 L HEMATOCRIT (test code = HCT) 26.6 % 37.0-47.0 L MEAN CELL VOLUME (test code = 93.0 fL 81.0-99.0 N MCV) MEAN CELL HGB (test code = MCH) 29.4 pg 27-31 N MEAN CELL HGB CONCENTRATION 31.6 G/DL 33-36.5 L (test code = MCHC) RED CELL DISTRIBUTION WIDTH 23.7 % 12.9-16.9 H (test code = RDW) PLATELET COUNT (test code = 202 x10 3/uL 150-440 N PLT) MEAN PLATELET VOLUME (test code 11.7 fL 8.9-12.4 N = MPV) NEUTROPHIL % (test code = NT%) 71.9 % 42.2-75.2 N LYMPHOCYTE % (test code = LY%) 20.2 % 20.5-51.1 L MONOCYTE % (test code = MO%) 6.3 % 1.7-9.3 N EOSINOPHIL % (test code = EO%) 0.5 % 0.0-7.0 N BASOPHIL % (test code = BA%) 0.3 % 0-2.5 N NEUTROPHIL # (test code = NT#) 8.60 x10 3/uL 1.80-7.70 H LYMPHOCYTE # (test code = LY#) 2.41 x10 3/uL 1.00-4.80 N MONOCYTE # (test code = MO#) 0.75 x10 3/uL 0.00-0.80 N EOSINOPHIL # (test code = EO#) 0.06 x10 3/uL 0.00-0.45 N BASOPHIL # (test code = BA#) 0.04 x10 3/uL 0.0-0.20 N - XR ABDOMEN [id number] 11:04:00 [facility] : 1945 Sex: FPatient Name: JESUS JACOBS Unit No: [id number] EXAMS: CPT CODE: [id number] XR ABDOMEN 1V 97628 ABDOMEN, SINGLE VIEW LOCATION: A1 HISTORY: Dobbhoff catheter placement. A single view of theabdomen at 10:07 AM was compared to a prior exam from April 04, 2020. FINDINGS: Dobbhoff cathetertip is unchanged in the pyloric region of the stomach. It should be allowed to advance into the duodenum. No other change has occurred. IMPRESSION: Dobbhoff catheter tip in the distal stomach. at 1104 Reported and signed by: Ryder Perez Jr, MD CC: Toby Obando MD; Hernán Ford MD; Ephraim Pearce MD Technologist: Leonor Soto Time: DAP (Gy m2): Air Kerma (mGy): Trscr Dt/Tm: 04/08/2022 (1104) by:Darrell Printed Date/Time: 04/17/2022 (1474) Name: JESUS JACOBS [facility] Phys: MATT - Toby Obando [address] : 1945 Age: 76 Sex: [place] [address] Loc:P.0213 1 Exam Date: 04/08/2022 Status: DIS IN PH: FAX: PAGE 1 Signed Report- XR ABDOMEN 1V 2022-04-08 11:04:00 [facility] : 1945 Sex: FPatient Name: JESUS JACOBS Unit No: [id number] EXAMS: CPT CODE: [id number] XR ABDOMEN 1V 67591 ABDOMEN, SINGLE VIEW LOCATION: A1 HISTORY: Dobbhoff catheter placement. A single view of the abdomen at 10:07 AM was compared to a prior exam from April 04, 2020. FINDINGS: Dobbhoff catheter tip is unchanged in the pyloric region of the stomach. It should be allowed to advance into the duodenum. No other change has occurred. IMPRESSION: Dobbhoff catheter tip in the distal stomach. at 1104 Reported and signed by: Ryder Perez Jr, MD CC:Toby Obando MD; Hernán Ford MD; Ephraim Pearce MD Technologist: Leonor Soto Time: DAP (Gy m2): Air Kerma (mGy): Trscr Dt/Tm: 04/08/2022 (1104) by:Darrell Printed Date/Time: 04/08/2022 (1101) Name: JESUS JACOBS [facility] Phys: Toby Smith [address] : 1945 Age: 76 Sex: [place] [address] Loc: P.0213 1 Exam Date: 04/08/2022 Status: ADM IN PH: FAX: PAGE 1 Signed Report- XR CHEST 1 [id number] 07:36:00 [facility] : 1945 Sex: FPatient Name: JESUS JACOBS Unit No: [id number] EXAMS: CPT CODE: [id number] XR CHEST 1 V 24600 CHEST, SINGLE VIEW LOCATION: A1 HISTORY: Shortness of breath. A single view of the chest at 4:02 AM was compared to a prior exam from April 07, 2022. FINDINGS: Bibasilar infiltrative/atelectatic changes and effusions have slightly worsened along with slight worsening of cardiomegaly/centralpulmonary vascular congestion. Lines and tubes are unchanged. No new findings are seen. IMPRESSION: Worsening bibasilar infiltrative/atelectatic changes, effusions and cardiomegaly/central pulmonary vascular congestion. at 0736 Reported and signed by: Ryder Perez Jr, MD CC: Hernán Ford MD; Ephraim Pearce MD; Estefanía Mcdonnell Shane hnologist: Dipti Funk Fluoro Time: DAP (Gy m2): Air Kerma (mGy): Trscr Dt/Tm: 04/08/2022 (0736) by:Darrell Printed Date/Time: 04/17/2022 (1228) Name: JESUS JACOBS [facility] Phys: [id number] - Estefanía Mcdonnell APRN [address] : 1945 Age: 76 Sex: F [place] [address] Loc: P.0213 1 Exam Date: 04/08/2022 Status: DIS IN PH: FAX: PAGE 1 Signed Report- XR CHEST 1 [id number] 07:36:00 [facility] : 1945 Sex: FPatient Name: JESUS JACOBS Unit No: [id number] EXAMS: CPT CODE: [id number] XR CHEST 1 V 79309 CHEST, SINGLE VIEW LOCATION: A1 HISTORY: Shortness of breath. A single view of the chest at 4:02 AM was compared to a prior exam from April 07, 2022. FINDINGS: Bibasilar infiltrative/atelectatic changes and effusions have slightly worsened along with slight worsening of cardiomegaly/central pulmonary vascular congestion. Lines and tubes are unchanged. No new findings are seen. IMPRESSION: Worsening bibasilar infiltrative/atelectatic changes, effusions and cardiomegaly/central pulmonary vascular congestion. at 0736 Reported and signed by: Ryder Perez Jr, MD CC: Hernán Ford MD; Ephraim Pearce MD; Estefanía Mcdonnell Technologist: Trino Funk Fluoro Time: DAP (Gy m2): Air Kerma (mGy): Trscr Dt/Tm: 04/08/2022 (0736) by:Darrell Printed Date/Time: 04/08/2022 (0739) [facility] Phys: WRIJEstefanía Flynn APRN [address] : 1945 Age: 76 Sex: [place], [place] [id number] Loc: P.0213 1 Exam Date: 04/08/2022 Status: ADM IN PH: FAX: PAGE 1 Signed ReportCOMPREHENSIVE METABOLIC [id number] 05:13:00 Test Item Value Reference Range Interpretation Comments SODIUM (test code 145 mmol/L 136-145 N Please not e: New = NA) Reference Range Jun 2020 POTASSIUM (test 3.9 mmol/L 3.5-5.1 N code = K) CHLORIDE (test 116 mmol/L 98-107 H Please note: New code = CL) Reference Range Jun 2020 CARBON DIOXIDE 18 mmol/L 20-31 L Please note: New (test code = CO2) Reference Range Jun 2020 GLUCOSE (test code 143 mg/dL 74-106 H Please no te: New = GLU) Reference Range Jun 2020 BLOOD UREA 26 mg/dL 9-23 H Please note: Ne w NITROGEN (test Reference Ran ge Feb code = BUN) 2020 GLOMERULAR >=60 max >60 The Glomerular FILTRATION RATE estimate mL/min Filtratio n Rate is a (test code = GFR) calculated parameterbased on serum Creatinin e, patient age and sex. GFR valuesless than 60 mL/min/1.73 square meters are [place] cative ofChronic Kidne y Disease. Values less than 15 mL/min/1.73squa re meters indicate Kidney failure. The calculation for GFR is based on the CK D-EPI (2020) calculat ion. This formulais race indifferent and is the recommended formula for GFR by the National Kidney Foundation for Adults.The GFR will not calculate i f the sex is unknown or if thepatient's ag e is <18 years. CREATININE (test 0.50 mg/dL 0.55-1.02 L Please note : New code = CREAT) Reference Rang e Jun 2020 TOTAL PROTEIN 5.0 g/dL 5.7-8.2 L Please note: N ew (test code = PROT) Reference Range Jun 2020 ALBUMIN (test code 2.4 g/dL 3.2-4.8 L Please no te: New = ALB) Reference Range Jun 2020 CALCIUM (test code 7.4 mg/dL 8.7-10.4 L Please no te: New = CA) Reference Range Jun 2020 BILIRUBIN TOTAL 1.0 mg/dL 0.3-1.2 N Please note: New (test code = BILT) Reference Range Jun 2020 SGOT/AST (test 40 U/L <34 H Please note: New code = AST) Reference Range Jun 2020 SGPT/ALT (test 118 U/L 10-49 H Please note: New code = ALT) Reference Range Jun 2020 ALKALINE 198 U/L 46-116 H Please note: Ne w PHOSPHATASE (test Reference Range Feb code = ALKP) 2020 [id number] 05:13:00 Test Item Value Reference Range Interpretation Comments PHOSPHOROUS (test code 3.0 mg/dL 2.4-5.1 N Pleas e note: New = PHOS) Reference Range Jun 2020 [id number] 05:13:00 Test Item Value Reference Range Interpretation Comments MAGNESIUM (test code = 1.6 mg/dL 1.6-2.6 N Pleas e note: New MAG) Reference Range Jun 2020 CBC W/AUTO [id number] 04:58:00 Test Item Value Reference Range Interpretation Comments WHITE BLOOD CELL (test code = 13.0 x10 3/uL 4.8-10.8 H WBC) RED BLOOD CELL (test code = 2.97 x10 6/uL 4.20-5.40 L RBC) HEMOGLOBIN (test code = HGB) 8.7 g/dL 12.0-16.0 L HEMATOCRIT (test code = HCT) 27.4 % 37.0-47.0 L MEAN CELL VOLUME (test code = 92.3 fL 81.0-99.0 N MCV) MEAN CELL HGB (test code = MCH) 29.3 pg 27-31 N MEAN CELL HGB CONCENTRATION 31.8 G/DL 33-36.5 L (test code = MCHC) RED CELL DISTRIBUTION WIDTH 23.7 % 12.9-16.9 H (test code = RDW) PLATELET COUNT (test code = 157 x10 3/uL 150-440 N PLT) MEAN PLATELET VOLUME (test code 11.7 fL 8.9-12.4 N = MPV) NEUTROPHIL % (test code = NT%) 76.5 % 42.2-75.2 H LYMPHOCYTE % (test code = LY%) 14.1 % 20.5-51.1 L MONOCYTE % (test code = MO%) 8.1 % 1.7-9.3 N EOSINOPHIL % (test code = EO%) 0.3 % 0.0-7.0 N BASOPHIL % (test code = BA%) 0.2 % 0-2.5 N NEUTROPHIL # (test code = NT#) 9.93 x10 3/uL 1.80-7.70 H LYMPHOCYTE # (test code = LY#) 1.83 x10 3/uL 1.00-4.80 N MONOCYTE # (test code = MO#) 1.05 x10 3/uL 0.00-0.80 H EOSINOPHIL # (test code = EO#) 0.04 x10 3/uL 0.00-0.45 N BASOPHIL # (test code = BA#) 0.02 x10 3/uL 0.0-0.20 N HEPARIN INDUCED [id number] 18:06:00 Test Item Value Reference Range Interpretation Comments HEPARIN INDUCED POSITIVE U/mL NEGATIVE A Critical Va lue THROMBOCYTOPEN (test reporte d toFirst code = HITAB) Name:LAVELL Orta ast Name:JOSIAH AGUIAR READ BACK AND VERIFIEDby EDDIE, on 04/04/22, @ 180 1. A positive result obtained using this assay mayindicate the presence of heparin- associated antibodies, apositive result DOES NOT CONFIRM the diagnosis of HIT. Somepatients may have naturally occurring antibodies to PF4.UNFRACT HEPARIN DEPEND PLT [id number] 18:06:00 Test Item Value Reference Range Interpretation Comments UNFRACT 0 % HEPARIN LOW DOSE (test code = UHDPABL) UNFRACT 0 % HEPARIN HIGH DOSE (test code = UHDPABH) UNFRACT NEGATIVE NEGATIVE HEPARIN-INDUCED HEPARIN RESULT THROMBOCYTOPE KEKE - DONTA (test code = Unfractionated Heparin UHDPABT) Interpretation A positive result requires release of serotoninfrom t arget platelets in the presence of patient serum andlow do se (0.1 U/mL) heparin of >20% , together withinhibition of release (<20%) with hig h dose (100 U/mL)heparin. R esults obtained with this patie nt's serum werenegative. T hese results argue against, but do not completelyrule out a diagnosis of Heparin Dina dayna Thrombocytopeni a. If not already perform ed, repeat testing of a [facility] serumsample collected 24-48 hours after collection of t he currentsample should be consi dered. This test was developed a nd its performance characteristics determined by [employer] It has not beencleared or approved by the [place] Food and Drug Administration. This test is used for clinic al purposes. It should not ileana garded as investigational or for research. This laboratoryis certified under the Clinical Laboratory ImprovementAmen dments (CLIA) as qualified to pe rform high complexityclinc al laboratory testing. A positive result obtained using this assay mayindicate the presence of heparin- associated antibodies, apositive result DOES NOT CONFIRM the diagnosis of HIT. Somepatients may have naturally occurring antibodies to PF4.[id number] 18:05:00 Test Item Value Reference Range Interpretation Comments GLUBED (test code = GLUBED) 120 MG/DL 70-105 H T3 [id number] 12:51:00 Test Item Value Reference Range Interpretation Comments T3 FREE (test code 1.97 pg/mL 3.0-4.7 L Please no te: New = T3F) Reference Range Jun 2020 T4 [id number] 12:51:00 Test Item Value Reference Range Interpretation Comments T4 FREE (test code 0.68 ng/dL 0.89-1.76 L Please no te: New = T4F) Reference Range Jun 2020 THYROID STIMULATING [id number] 12:51:00 Test Item Value Reference Range Interpretation Comments THYROID STIMULATING 12.07 mIU/mL 0.55-4.78 H Please n ote: New HORMONE (test code = Referen ce Range Jun TSH) 2020 [id number] 12:20:00 Test Item Value Reference Range Interpretation Comments GLUBED (test code = GLUBED) 140 MG/DL 70-105 H - XR CHEST 1 [id number] 07:56:00 [facility] 1945 Sex: FPatient Name: JESUS JACOBSORIA Unit No: [id number] EXAMS: CPT CODE: [id number] XR CHEST 1 V 39968 EXAM: Portable chest x-ray, 1 view Dictation location: H10 COMPARISON: Chest x-ray on 04/06/2022 INDICATION: SOB DISCUSSION: The visualized portion of the upper enteric tube overlies the appropriate position. A right IJ central venous catheter has been removed. An additional right IJ central venous catheter is unchanged. Small bilateral pleural effusions appear similar. There is partial bibasilar consolidation, either due to atelectasis, pneumonia, or a combination of these. No pneumothorax is identified. The cardiac silhouette is within normal limits. A dual-lead pacemaker is in place. No acute bony abnormalities are identified. A right-sided pigtail tube overlies the right thoracoabdominal junction, within a fluid collection lateral to the liver based on previous CT imaging. IMPRESSION: Bilateral pleural effusions and bibasilar atelectasis and/or pneumonia are not significantly changed. No pneumothorax is seen. One of the right IJ central venous catheters have been removed. Electronically Si gned by Eran Felton on 04/07/2022 at 0756 Reported and signed by: Marcell Felton M.D.CC: Hernán Ford MD; Ephraim Pearce MD; Estefanía Mcdonnell Technologist: OSCAR WHITE FluoroTime: DAP (Gy m2): Air Kerma (mGy): Trscr Dt/Tm: 04/07/2022 (0756) by:[email or web address] Printed Date/Time: 04/17/2022 (1227) Name: JESUS JACOBS [facility] Phys: WRIJEstefanía Flynn APRN [address] : 1945 Age: 76 Sex: [place] [address] Loc: P.0213 1 Exam Date: 04/07/2022 Status: DIS IN PH: FAX: PAGE 1 Signed Report- XR CHEST 1 [id number] 07:56:00 [facility] : 1945 Sex: FPatient Name: JESUS JACOBS Unit No: [id number] EXAMS: CPT CODE: [id number] XR CHEST 1 V 89950 EXAM: Portable chest x-ray, 1 view Dictation location: H10 COMPARISON: Chest x- ray on 04/06/2022 INDICATION: SOB DISCUSSION: The visualized portion of the upper enteric tube overlies the appropriate position. A right IJ central venous catheter has been removed. An additional right IJ central venous catheter is u nchanged. Small bilateral pleural effusions appear similar. There is partial bibasilar consolidation, either due to atelectasis, pneumonia, or a combination of these. No pneumothorax is identified. Thecardiac silhouette is within normal limits. A dual-lead pacemaker is in place. No acute bony abnormalities are identified. A right-sided pigtail tube overlies the right thoracoabdominal junction, within a fluid collection lateral to the liver based on previous CT imaging. IMPRESSION: Bilateral pleuraleffusions and bibasilar atelectasis and/or pneumonia are not significantly changed. No pneumothorax is seen. One of the right IJ central venous catheters have been removed. at 0756 Reported and signed by: Marcell Felton M.D. CC: Hernán Ford MD; Ephraim Pearce MD; Estefanía Mcdonnell Technologist: OSCAR WHITE Fluoro Time: DAP (Gy m2): Air Kerma (mGy): Trscr Dt/Tm: 04/07/2022 (0756) by:[email or web address] Printed Date/Time: 04/07/2022 (0759) [facility]: WRIJEstefanía Flynn APRN [address] : 1945 Age: 76 Sex: [place] [address] Loc: P.0213 1 Exam Date: 04/07/2022 Status: ADM IN PH: FAX: PAGE 1 Signed ReportBASIC METABOLIC [id number] 05:32:00 Test Item Value Reference Range Interpretation Comments SODIUM (test code 144 mmol/L 136-145 N Please not e: New = NA) Reference Range Jun 2020 POTASSIUM (test 3.7 mmol/L 3.5-5.1 N code = K) CHLORIDE (test 114 mmol/L 98-107 H Please note: New code = CL) Reference Range Jun 2020 CARBON DIOXIDE 19 mmol/L 20-31 L Please note: New (test code = CO2) Reference Range Jun 2020 GLUCOSE (test code 126 mg/dL 74-106 H Please no te: New = GLU) Reference Range Jun 2020 BLOOD UREA 28 mg/dL 9-23 H Please note: Ne w NITROGEN (test Reference Ran ge Feb code = BUN) 2020 GLOMERULAR >=60 max >60 The Glomerular FILTRATION RATE estimate mL/min Filtratio n Rate is a (test code = GFR) calculated parameterbased on serum Creatinin e, patient age and sex. GFR valuesless than 60 mL/min/1.73 square meters are [place] cative ofChronic Kidne y Disease. Values less than 15 mL/min/1.73squa re meters indicate Kidney failure. The calculation for GFR is based on the CK D-EPI (2020) calculat ion. This formulais race indifferent and is the recommended formula for GFR by the National Kidney Foundation for Adults.The GFR will not calculate i f the sex is unknown or if thepatient's ag e is <18 years. CREATININE (test 0.60 mg/dL 0.55-1.02 N Please note : New code = CREAT) Reference Rang e Jun 2020 CALCIUM (test code 7.3 mg/dL 8.7-10.4 L Please no te: New = CA) Reference Range Jun 2020 COMPREHENSIVE METABOLIC [id number] 05:32:00 Test Item Value Reference Range Interpretation Comments TOTAL PROTEIN (test 5.1 g/dL 5.7-8.2 L Please n ote: New code = PROT) Reference Range Jun 2020 ALBUMIN (test code = 2.5 g/dL 3.2-4.8 L Please note: New ALB) Reference Range Jun 2020 BILIRUBIN TOTAL (test 1.1 mg/dL 0.3-1.2 N Please note: New code = BILT) Reference Range Jun 2020 SGOT/AST (test code = 49 U/L <34 H Please note: New AST) Reference Range Jun 2020 SGPT/ALT (test code = 174 U/L 10-49 H Please note: New ALT) Reference Range Jun 2020 ALKALINE PHOSPHATASE 209 U/L 46-116 H Please note: New (test code = ALKP) Reference Range Jun 2020 [id number] 05:32:00 Test Item Value Reference Range Interpretation Comments PHOSPHOROUS (test code 3.3 mg/dL 2.4-5.1 N Pleas e note: New = PHOS) Reference Range Jun 2020 [id number] 05:32:00 Test Item Value Reference Range Interpretation Comments MAGNESIUM (test code = 1.6 mg/dL 1.6-2.6 N Pleas e note: New MAG) Reference Range Jun 2020 CBC W/AUTO [id number] 05:21:00 Test Item Value Reference Range Interpretation Comments WHITE BLOOD CELL (test code = 14.6 x10 3/uL 4.8-10.8 H WBC) RED BLOOD CELL (test code = 3.03 x10 6/uL 4.20-5.40 L RBC) HEMOGLOBIN (test code = HGB) 8.9 g/dL 12.0-16.0 L HEMATOCRIT (test code = HCT) 27.3 % 37.0-47.0 L MEAN CELL VOLUME (test code = 90.1 fL 81.0-99.0 N MCV) MEAN CELL HGB (test code = 29.4 pg 27-31 N MCH) MEAN CELL HGB CONCENTRATION 32.6 G/DL 33-36.5 L (test code = MCHC) RED CELL DISTRIBUTION WIDTH 22.9 % 12.9-16.9 H (test code = RDW) PLATELET COUNT (test code = 117 x10 3/uL 150-440 L PLT) MEAN PLATELET VOLUME (test 12.2 fL 8.9-12.4 N code = MPV) NEUTROPHIL % (test code = NT%) 75.5 % 42.2-75.2 H LYMPHOCYTE % (test code = LY%) 12.3 % 20.5-51.1 L MONOCYTE % (test code = MO%) 10.2 % 1.7-9.3 H EOSINOPHIL % (test code = EO%) 0.3 % 0.0-7.0 N BASOPHIL % (test code = BA%) 0.3 % 0-2.5 N NEUTROPHIL # (test code = NT#) 11.03 x10 3/uL 1.80-7.70 H LYMPHOCYTE # (test code = LY#) 1.80 x10 3/uL 1.00-4.80 N MONOCYTE # (test code = MO#) 1.49 x10 3/uL 0.00-0.80 H EOSINOPHIL # (test code = EO#) 0.04 x10 3/uL 0.00-0.45 N BASOPHIL # (test code = BA#) 0.04 x10 3/uL 0.0-0.20 N [id number] 12:31:00 Test Item Value Reference Range Interpretation Comments GLUBED (test code = GLUBED) 128 MG/DL 70-105 H - XR CHEST 1 [id number] 07:35:00 [facility] 1945 Sex: FPatient Name: JESUS JACOBS Unit No: [id number] EXAMS: CPT CODE: [id number] XR CHEST 1 V 01606 Location of dictation: H14 Portable chest one view. HISTORY: SOB COMMENT: Compared to one day prior. Support lines and catheters remain in good positions. Cardiac silhouette is stable. Lung volumes remain low with bibasilar atelectasis and small effusions. No new consolidation or pneumothorax seen. Vis ualized soft tissues and skeletal structures are unremarkable. There has been no significant changes. IMPRESSION: 1. Stable chest with low lung volumes, atelectasis and effusions. 2. Stable lines and catheters. at 0735 Reported and signed by: Lyndsay Cross M.D. CC: Hernán Ford MD; Ephraim Pearce MD; Estefanía Mcdonnell Technologist: Jazmin Soto Time: DAP (Gy m2): Air Kerma (mGy): Trscr Dt/Tm: 04/06/2022 (0735) by:Howard Printed Date/Time: 04/17/2022 (1228) Name: JESUS JACOBS [facility] Phys: [id number] - Estefanía Mcdonnell APRN [address] : 1945 Age: 76 Sex: [place] [address] Loc: P.0213 1 Exam Date: 04/06/2022 Status: DIS IN PH: FAX: PAGE 1 Signed Report- XR CHEST 1 [id number] 07:35:00 [facility] : 1945 Sex: FPatient Name: JESUS JACOBS Unit No: [id number] EXAMS: CPT CODE: [id number] XR CHEST 1 V 21435 Locationof dictation: H14 Portable chest one view. HISTORY: SOB COMMENT: Compared to one day prior. Support lines and catheters remain in good positions. Cardiac silhouette is stable. Lung volumes remain low with bibasilar atelectasis and small effusions. No new consolidation or pneumothorax seen. Visualized soft tissues and skeletal structures are unremarkable. There has been no significant changes. IMPRESSION: 1. Stable chest with low lung volumes, atelectasis and effusions. 2. Stable lines and catheters. at 0735 Reported and signed by: Lyndsay Cross M.D. CC: Hernán Ford MD; Ephraim Pearce MD; Estefanía Mcdonnell Technologist: Jazmin Soto Time: DAP (Gy m2): Air Kerma (mGy): Trscr Dt/Tm: 04/06/2022 (0735) by:[email or web address] Printed Date/Time: 04/06/2022 (0739) Name: JESUS JACOBS [facility] Phys: WRIJOEstefanía Dumont APRN [address] : 1945 Age: 76 Sex: [place] [address] Loc: P.0213 1 Exam Date: 04/06/2022 Status: ADM IN PH: FAX: PAGE 1 Signed ReportBASIC METABOLIC PANEL 2022-04-06 05:56:00 Test Item Value Reference Range Interpretation Comments SODIUM (test code 142 mmol/L 136-145 N Please not e: New = NA) Reference Range Jun 2020 POTASSIUM (test 3.6 mmol/L 3.5-5.1 N code = K) CHLORIDE (test 113 mmol/L 98-107 H Please note: New code = CL) Reference Range Jun 2020 CARBON DIOXIDE 19 mmol/L 20-31 L Please note: New (test code = CO2) Reference Range Jun 2020 GLUCOSE (test code 140 mg/dL 74-106 H Please no te: New = GLU) Reference Range Jun 2020 BLOOD UREA 29 mg/dL 9-23 H Please note: Ne w NITROGEN (test Reference Ran ge Feb code = BUN) 2020 GLOMERULAR >=60 max >60 The Glomerular FILTRATION RATE estimate mL/min Filtratio n Rate is a (test code = GFR) calculated parameterbased on serum Creatinin e, patient age and sex. GFR valuesless than 60 mL/min/1.73 square meters are [place] cative ofChronic Kidne y Disease. Values less than 15 mL/min/1.73squa re meters indicate Kidney failure. The calculation for GFR is based on the CK D-EPI (2020) calculat ion. This formulais race indifferent and is the recommended formula for GFR by the National Kidney Foundation for Adults.The GFR will not calculate i f the sex is unknown or if thepatient's ag e is <18 years. CREATININE (test 0.80 mg/dL 0.55-1.02 N Please note : New code = CREAT) Reference Rang e Jun 2020 CALCIUM (test code 6.8 mg/dL 8.7-10.4 L Please no te: New = CA) Reference Range Jun 2020 COMPREHENSIVE METABOLIC [id number] 05:56:00 Test Item Value Reference Range Interpretation Comments TOTAL PROTEIN (test 4.7 g/dL 5.7-8.2 L Please n ote: New code = PROT) Reference Range Jun 2020 ALBUMIN (test code = 2.2 g/dL 3.2-4.8 L Please note: New ALB) Reference Range Jun 2020 BILIRUBIN TOTAL (test 1.1 mg/dL 0.3-1.2 N Please note: New code = BILT) Reference Range Jun 2020 SGOT/AST (test code = 60 U/L <34 H Please note: New AST) Reference Range Jun 2020 SGPT/ALT (test code = 249 U/L 10-49 H Please note: New ALT) Reference Range Jun 2020 ALKALINE PHOSPHATASE 205 U/L 46-116 H Please note: New (test code = ALKP) Reference Range Jun 2020 LIVER FUNCTION [id number] 05:56:00 Test Item Value Reference Range Interpretation Comments BILIRUBIN DIRECT (test 0.6 mg/dL <0.3 H Pleas e note: New code = BILD) Reference Range Jun 2020 [id number] 05:56:00 Test Item Value Reference Range Interpretation Comments PHOSPHOROUS (test code 2.2 mg/dL 2.4-5.1 L Pleas e note: New = PHOS) Reference Range Jun 2020 [id number] 05:56:00 Test Item Value Reference Range Interpretation Comments MAGNESIUM (test code = 1.5 mg/dL 1.6-2.6 L Pleas e note: New MAG) Reference Range Jun 2020 CBC W/AUTO [id number] 04:12:00 Test Item Value Reference Range Interpretation Comments WHITE BLOOD CELL (test code = 18.1 x10 3/uL 4.8-10.8 H WBC) RED BLOOD CELL (test code = 2.85 x10 6/uL 4.20-5.40 L RBC) HEMOGLOBIN (test code = HGB) 8.5 g/dL 12.0-16.0 L HEMATOCRIT (test code = HCT) 25.3 % 37.0-47.0 L MEAN CELL VOLUME (test code = 88.8 fL 81.0-99.0 N MCV) MEAN CELL HGB (test code = 29.8 pg 27-31 N MCH) MEAN CELL HGB CONCENTRATION 33.6 G/DL 33-36.5 N (test code = MCHC) RED CELL DISTRIBUTION WIDTH 22.5 % 12.9-16.9 H (test code = RDW) PLATELET COUNT (test code = 77 x10 3/uL 150-440 L PLT) MEAN PLATELET VOLUME (test 12.5 fL 8.9-12.4 H code = MPV) NEUTROPHIL % (test code = NT%) 75.4 % 42.2-75.2 H LYMPHOCYTE % (test code = LY%) 10.8 % 20.5-51.1 L MONOCYTE % (test code = MO%) 11.8 % 1.7-9.3 H EOSINOPHIL % (test code = EO%) 0.2 % 0.0-7.0 N BASOPHIL % (test code = BA%) 0.2 % 0-2.5 N NEUTROPHIL # (test code = NT#) 13.67 x10 3/uL 1.80-7.70 H LYMPHOCYTE # (test code = LY#) 1.96 x10 3/uL 1.00-4.80 N MONOCYTE # (test code = MO#) 2.14 x10 3/uL 0.00-0.80 H EOSINOPHIL # (test code = EO#) 0.04 x10 3/uL 0.00-0.45 N BASOPHIL # (test code = BA#) 0.03 x10 3/uL 0.0-0.20 N BLOOD GAS [id number] 04:04:00 Test Item Value Reference Range Interpretation Comments ARTERIAL BLOOD GAS 7.55 7.35-7.45 H PH (test code = PHA) ARTERIAL BLOOD GAS 21.0 mmHg 35.0-45.0 LL Critical Value PCO2 (test code = reported t oFirst PCO2A) Name:[employer] Last Name:YURIYULTS READ BACK AND QIANA rooneyGEN.[email or web address], on 04/06/22, @ 040 4. ARTERIAL BLOOD GAS 139.4 mmHg 80.0-95.0 H PO2 (test code = PO2A) BICARBONATE TOTAL 18.1 mmol/L 22.0-24.0 L HCO3 (test code = HCO3) BASE EXCESS (test -1.7 mmol/L See_Comment N [Automate d code = CINTHIA) message] The sy stem which generated this result transmitted reference range : (+/-)2.0. The reference range was not used to interpret this result as normal/abnormal . ARTERIAL FIO2 (test 32.0 % code = FIO2A) ABG VENT MODE (test NASAL CANNULA code = MODEA) ALLENS TEST (test NOT APPLICAPLE code = ALLENS) SODIUM (POC) (test 136 mmol/L 135-147 N code = NA/ABG) POTASSIUM (POC) 3.59 mmol/L 3.6-5.2 L (test code = K/ABG) CHLORIDE (ARTERIAL) 112 mmol/L 98-108 H (test code = CL/ABG) GLUCOSE (test code = 145 mg/dL 70-104 H GLU/ABG) IONIZED CALCIUM 1.13 mmol/L 1.12-1.32 N (test code = CAIABG) POC LACTIC ACID 2.29 mmol/L 0.5-2.2 H (test code = POCLAC) TCO2 ARTERIAL (test 18.8 MMOL/L 24-30 L code = TCO2A) [id number] 01:25:00 Test Item Value Reference Range Interpretation Comments GLUBED (test code = GLUBED) 136 MG/DL 70-105 H [id number] 17:01:00 Test Item Value Reference Range Interpretation Comments GLUBED (test code = GLUBED) 138 MG/DL 70-105 H - XR CHEST 1 [id number] 16:27:00 [facility] : 1945 Sex: FPatient Name: JESUS JACOBS Unit No: [id number] EXAMS: CPT CODE: [id number] XR CHEST 1 V 88531 EXAM: Portable chest x-ray Dictation location: A1 COMPARISON: Chest x- ray on 04/04/2022 INDICATION: POST THORA DISCUSSION: There has been interval right-sided thoracentesis. No pneumothorax is seen. Theright pleural effusion is slightly decreased in size, now small to moderate in size. A right-sided pigtail chest tube is in place. The upper enteric tube and right IJ central venous catheters are in similar position. A dual-lead pacemaker is in place. The cardiac silhouette is at the upper limits of normal in size. No acute bony abnormalities are identified. IMPRESSION: 1. Slight interval improvement in the right pleural effusion status post thoracentesis, now small to moderate in size. No pneumothorax is seen. A right-sided pigtail chest tube is again noted. 2. Residual partial consolidation at the right lung base, either due to atelectasis, pneumonia, or a combination of these. 3. No new abnormality. at 1627 Reported and signed by: Marcell Felton M.D. CC: Hernán Ford MD; Ephraim Pearce MD Technologist: OSCAR WHITE Fluoro Time: DAP (Gy m2): Air Kerma (mGy): Trscr Dt/Tm: 04/05/2022 (1627) by:[email or web address] Printed Date/Time: 04/17/2022 (4274) Name: JESUS JACOBS [facility] Phys: Hernán RamosLA [address] : 1945 Age: 76 Sex: [place] [address] Loc: P.0213 1 Exam Date: 04/05/2022 Status: DIS IN PH: FAX: PAGE 1 Signed Report- XR CHEST 1 [id number] 16:27:00 [facility] : 1945 Sex: FPatient Name: JEUSS JACOBS Unit No: [id number] EXAMS: CPT CODE: [id number] XR CHEST 1 V 32289 EXAM: Portable chest x-ray Dictation location: A1 COMPARISON: Chest x-ray on 04/04/2022 INDICATION: POST THORA DISCUSSION: There has been interval right- sided thoracentesis. No pneumothorax is seen. The right pleural effusion is slightly decreased in size, now small to moderate in size. A right-sided pigtail chest tube is in place. The upper enteric tube and right IJ central venous catheters are in similar position. A dual-lead pacemaker is in place. The cardiac silhouette is at the upper limits of normal in size. No acute bony abnormalities are identified. IMPRESSION: 1. Slight interval improvement in the right pleural effusion status post thoracentesis, now small to moderate in size. No pneumothorax is seen. A right-sided pigtail chest tube is again noted. 2. Residual partial consolidation at the right lung base, either due to atelectasis, pneumonia, or a combination of these. 3. No new abnormality. at 1627 Reported and signed by: Marcell Felton M.D. CC: Hernán Ford MD; Ephraim Pearce MD Technologist: OSCAR WHITE FluoroTime: DAP (Gy m2): Air Kerma (mGy): Trscr Dt/Tm: 04/05/2022 (1627) by:[email or web address] Printed Date/Time: 04/05/2022 (5300) Name: JESUS JACOBS [facility] Phys: Hernán Ramos MD [address]DOB: 1945 Age: 76 Sex: F [place] Loc: P.0213 1 Exam Date: 04/05/2022 Status: ADM IN PH: FAX: PAGE 1 Signed Report - SP THORACENTESIS [id number] 16:12:00 [facility] : 1945 Sex: FPatient Name: JESUS JACOBS [facility] Unit No: [id number] EXAMS: CPT CODE: [id number] SP THORACENTESIS W/IMAG [id number] PROVIDED REASON FOR EXAM: PLUREL EFFUSION PROCEDURE: Ultrasound guided right thoracentesis.MEDICATIONS: Lidocaine for local anesthesia COMPLICATION: None. DESCRIPTION: After the procedure including indication and potential complications had been discussed with the patient's and questions answered, written informed consent was obtained. The procedure was performed bedside in the ICU with patient in the supine position. A time out was performed. Limited ultrasound was performed localizing the largest discrete pocket of pleural fluid within the right hemithorax. Images were documented and permanently stored. After prepping and draping the skin of the right lateral chest in standard sterile fashion and administration of local anesthesia, the right pleural space was accessed using our standard thoracentesis catheter yielding approximately 550 ml of serosanguineous fluid. The thoracentesis catheter was removed and a sterile bandage applied. The patient tolerated the procedure well without immediate complication. FINDINGS: Right pleural effusion. IMPRESSION: Technically successful ultrasound guided right thoracentesis as above. Location: W1 Electronically Signed by Deni Braden 04/05/2022 at 1612 Reported and signed by: Deni Cross MD CC: Hernán Ford MD; Ephraim Pearce MD Technologist: David Mata (R),(CT),() Fluoro Time: DAP (Gy m2): Air Kerma (mGy): Trscr Dt/Tm: 04/05/2022 (1612) by:[email or web address] Printed Date/Time: 04/17/2022 (1035) Name: JESUS JACOBS [facility] Phys: Hernán Ramos MD [address] : 1945 Age: 76 Sex: [place] [address] Loc: P.0213 1 Exam Date: 04/05/2022 Status: DIS IN PH: FAX: PAGE 1 Signed Report- SP THORACENTESIS W/IMAG 2022-04-05 16:12:00 [facility] : 1945 Sex: FPatient Name: JESUS JACOBS Unit No: [id number] EXAMS: CPT CODE: [id number] SP THORACENTESIS W/IMAG [id number] PROVIDED REASON FOR EXAM: PLUREL EFFUSION PROCEDURE: Ultrasound guided right thoracentesis. MEDICATIONS: Lidocaine for local anesthesia COMPLICATION: None. DESCRIPTION: After the procedure including indication and potential complications had been discussed with the patient's and questions answered, written informed consent was obtained. The procedure was performed bedside in the ICU with patient in the supine position. A time out was performed. Limited ultrasound was performed localizing the largest discrete pocket of pleural fluid within the right hemithorax. Images were documented and permanently stored. After prepping and draping the skin of the right lateral chest in standard sterilefashion and administration of local anesthesia, the right pleural space was accessed using our standard thoracentesis catheter yielding approximately 550 ml of serosanguineous fluid. The thoracentesis c atheter was removed and a sterile bandage applied. The patient tolerated the procedure well without immediate complication. FINDINGS: Right pleural effusion. IMPRESSION: Technically successful ultrasound guided right thoracentesis as above. Location: W1 at 1612 Reported and signed by: Deni Cross MD CC: Hernán Ford MD; Ephraim Pearce MD Technologist: David Mata (R),(CT),() Fluoro Time: DAP (Gy m2): Air Kerma (mGy): Trscr Dt/Tm: 04/05/2022 (161) by:[email or web address] Printed Date/Time: 04/05/2022 (161) Name: [facility] Phys: Hernán Ramos MD [address] : 1945 Age: 76 Sex: F [place], [place] [id number] Loc: P.0213 1 Exam Date: 04/05/2022 Status: ADM IN PH: FAX: PAGE 1 Signed [id number] 12:36:00 Test Item Value Reference Range Interpretation Comments GLUBED (test code = GLUBED) 143 MG/DL 70-105 H BASIC METABOLIC [id number] 05:47:00 Test Item Value Reference Range Interpretation Comments SODIUM (test code 141 mmol/L 136-145 N Please not e: New = NA) Reference Range Jun 2020 POTASSIUM (test 3.0 mmol/L 3.5-5.1 L code = K) CHLORIDE (test 112 mmol/L 98-107 H Please note: New code = CL) Reference Range Jun 2020 CARBON DIOXIDE 16 mmol/L 20-31 L Please note: New (test code = CO2) Reference Range Jun 2020 GLUCOSE (test code 142 mg/dL 74-106 H Please no te: New = GLU) Reference Range Jun 2020 BLOOD UREA 23 mg/dL 9-23 N Please note: Ne w NITROGEN (test Reference Ran ge Feb code = BUN) 2020 GLOMERULAR >=60 max >60 The Glomerular FILTRATION RATE estimate mL/min Filtratio n Rate is a (test code = GFR) calculated parameterbased on serum Creatinin e, patient age and sex. GFR valuesless than 60 mL/min/1.73 square meters are [place] cative ofChronic Kidne y Disease. Values less than 15 mL/min/1.73squa re meters indicate Kidney failure. The calculation for GFR is based on the CK D-EPI (2020) calculat ion. This formulais race indifferent and is the recommended formula for GFR by the National Kidney Foundation for Adults.The GFR will not calculate i f the sex is unknown or if thepatient's ag e is <18 years. CREATININE (test 0.90 mg/dL 0.55-1.02 N Please note : New code = CREAT) Reference Rang e Jun 2020 CALCIUM (test code 6.8 mg/dL 8.7-10.4 L Please no te: New = CA) Reference Range Jun 2020 [id number] 05:47:00 Test Item Value Reference Range Interpretation Comments PHOSPHOROUS (test code 2.5 mg/dL 2.4-5.1 N Pleas e note: New = PHOS) Reference Range Jun 2020 [id number] 05:47:00 Test Item Value Reference Range Interpretation Comments MAGNESIUM (test code = 1.8 mg/dL 1.6-2.6 N Pleas e note: New MAG) Reference Range Jun 2020 [id number] 05:30:00 Test Item Value Reference Range Interpretation Comments GLUBED (test code = GLUBED) 137 MG/DL 70-105 H CBC W/AUTO [id number] 04:11:00 Test Item Value Reference Range Interpretation Comments WHITE BLOOD CELL (test code = 18.2 x10 3/uL 4.8-10.8 H WBC) RED BLOOD CELL (test code = 2.97 x10 6/uL 4.20-5.40 L RBC) HEMOGLOBIN (test code = HGB) 8.8 g/dL 12.0-16.0 L HEMATOCRIT (test code = HCT) 26.3 % 37.0-47.0 L MEAN CELL VOLUME (test code = 88.6 fL 81.0-99.0 N MCV) MEAN CELL HGB (test code = 29.6 pg 27-31 N MCH) MEAN CELL HGB CONCENTRATION 33.5 G/DL 33-36.5 N (test code = MCHC) RED CELL DISTRIBUTION WIDTH 21.4 % 12.9-16.9 H (test code = RDW) PLATELET COUNT (test code = 61 x10 3/uL 150-440 L PLT) MEAN PLATELET VOLUME (test 12.0 fL 8.9-12.4 N code = MPV) NEUTROPHIL % (test code = NT%) 77.1 % 42.2-75.2 H LYMPHOCYTE % (test code = LY%) 10.4 % 20.5-51.1 L MONOCYTE % (test code = MO%) 11.2 % 1.7-9.3 H EOSINOPHIL % (test code = EO%) 0.2 % 0.0-7.0 N BASOPHIL % (test code = BA%) 0.2 % 0-2.5 N NEUTROPHIL # (test code = NT#) 14.06 x10 3/uL 1.80-7.70 H LYMPHOCYTE # (test code = LY#) 1.89 x10 3/uL 1.00-4.80 N MONOCYTE # (test code = MO#) 2.05 x10 3/uL 0.00-0.80 H EOSINOPHIL # (test code = EO#) 0.03 x10 3/uL 0.00-0.45 N BASOPHIL # (test code = BA#) 0.04 x10 3/uL 0.0-0.20 N BLOOD GAS [id number] 03:55:00 Test Item Value Reference Range Interpretation Comments ARTERIAL BLOOD GAS PH 7.54 7.35-7.45 H (test code = PHA) ARTERIAL BLOOD GAS PCO2 20.7 mmHg 35.0-45.0 LL Crit ical Value (test code = PCO2A) reported toFirst Name:[employer]GE[employer] Last Name:NPRESULTS READ BACK AND VERIFIEDby Montse.70, on 04/05/22, @ 035 5. ARTERIAL BLOOD GAS PO2 109.6 mmHg 80.0-95.0 H (test code = PO2A) BICARBONATE TOTAL HCO3 17.3 mmol/L 22.0-24.0 L (test code = HCO3) BASE EXCESS (test code -3.9 mmol/L See_Comment L [Aut omated = CINTHIA) message] The system which generated this result transmitted reference range : (+/-)2.0. The reference range was not used to interpret this result as normal/abnormal . ABG O2 SATURATION (test 98.2 % 95.0-100.0 N code = SATA) ARTERIAL FIO2 (test 28.0 % code = FIO2A) ABG VENT MODE (test NASAL CANNULA code = MODEA) ALLENS TEST (test code NOT APPLICAPLE = ALLENS) SODIUM (POC) (test code 132 mmol/L 135-147 L = NA/ABG) POTASSIUM (POC) (test 3.05 mmol/L 3.6-5.2 L code = K/ABG) CHLORIDE (ARTERIAL) 111 mmol/L 98-108 H (test code = CL/ABG) GLUCOSE (test code = 146 mg/dL 70-104 H GLU/ABG) IONIZED CALCIUM (test 1.09 mmol/L 1.12-1.32 L code = CAIABG) POC LACTIC ACID (test 2.57 mmol/L 0.5-2.2 H code = POCLAC) TOTAL HGB (test code = 9.5 g/dL 12.0-16.0 L THB) OXYHEMOGLOBIN (test 97.6 % 92.0-98.0 N code = OOHGBT) CARBOXYHEMOGLOBIN (test 0.3 % 0-5.0 N code = HOHGBT) METHEMOGLOBIN (test <0.8 % 0-1.5 N code = METHGB) HHb (test code = HHB) 1.8 % TCO2 ARTERIAL (test 18.0 MMOL/L 24-30 L code = TCO2A) [id number] 23:47:00 Test Item Value Reference Range Interpretation Comments GLUBED (test code = GLUBED) 144 MG/DL 70-105 H [id number] 17:40:00 Test Item Value Reference Range Interpretation Comments GLUBED (test code = GLUBED) 134 MG/DL 70-105 H - XR ABDOMEN [id number] 13:59:00 [facility] 1945 Sex: FPatient Name: JESUS JACOBS Unit No: [id number] EXAMS: CPT CODE: [id number] XR ABDOMEN 1V [id number], SINGLE VIEW LOCATION: A1 HISTORY: Dobbhoff catheter placement. A single view of the abdomenat 1:33 PM was compared to a prior exam from April 01, 2020. FINDINGS: Dobbhoff catheter tip is adjacent to the nasogastric tube tip in the distal stomach. It should be allowed to advance into the duodenum. No other change has occurred. IMPRESSION: Dobbhoff catheter tip in the distal stomach. at 1359 Reported and signed by: Ryder Perez Jr, MD CC: Hernán Ford MD; Ephraim Pearce MD; Estefanía Mcdonnell Technologist: OSCAR WHITE Fluoro Time: DAP (Gy m2): Air Kerma (mGy): Trscr Dt/Tm: 04/04/2022 (1359) by:Darrell Printed Date/Time: 04/17/2022 (2684) Name: JESUS JACOBS [facility] Phys: [id number] Estefanía King APRN [address] : 1945 Age: 76 Sex: F [place], [place] [id number] Loc: P.0213 1 Exam Date: 04/04/2022 Status: DIS IN PH: FAX: PAGE 1 Signed Report- XR ABDOMEN [id number] 13:59:00 [facility] : 1945 Sex: FPatient Name: JESUS JACOBS Unit No: [id number] EXAMS: CPT CODE: [id number] XR ABDOMEN 1V 67670 ABDOMEN,SINGLE VIEW LOCATION: A1 HISTORY: Dobbhoff catheter placement. A single view of the abdomen at 1:33 PM was compared to a prior exam from April 01, 2020. FINDINGS: Dobbhoff catheter tip is adjacent to the nasogastric tube tip in the distal stomach. It should be allowed to advance into the duodenum.No other change has occurred. IMPRESSION: Dobbhoff catheter tip in the distal stomach. at 1359 Reported and signed by: Ryder Perez Jr, MD CC: Hernán Ford MD; Ephraim Pearce MD; Estefanía Mcdonnell Technologist: OSCAR WHITE Fluoro Time: DAP (Gy m2): Air Kerma (mGy): Trscr Dt/Tm: 04/04/2022 (1359) by:Darrell Printed Mono e/Time: 04/04/2022 (1402) Name: JESUS JACOBS [facility] Phys: [id number] - Estefanía Mcdonnell APRN [address] : 1945 Age: 76 Sex: [place] [address] Loc: P.0213 1 Exam Date: 04/04/2022 Status: ADM IN PH: FAX: PAGE 1 Signed ReportNovel Coronavirus 2018 [id number] 11:48:00 Test Item Value Reference Range Interpretation Comments Novel Coronavirus Negative Negative Positive r esults are 2019 Inhouse (test indicativ e of the presence code = COVNONPUI) ofSARS-CoV -2 RNA, clinical correlation wit h patient historyand othe r diagnostic info rmation is necessary to determinepatien t infection status. Positiv e results do not rule out bacterial infection or co -infection with other viru ses. Negative result s do not preclude SARS-C oV-2 infection andsh ould not be used as the ana e basis for patient managementdecis ions. Negative result s must be combined with otherclinical observations, p atient history, and epidemiological information . Detection of SARS-CoV-2 RNA may be affe cted bysample collec tion methods, storag e conditions, and /or stageof infection. Bonita l RNA mutations, vacc inations, antiviraltherap eutics, antibiotics, chemotherapeuti c orimmunosuppres jes drugs have not been e valuated for effectson d etection. Results are for the identification of SARS-CoV-2 RNA usingreal-time (RT) polymerase zeenat n reaction (PCR) technolog yfor the qualitative det ection of nucleic acids f rom [id number] v irus and diagnosis of SA RS-CoV-2 virusinfection. It is an Emergency Use Authorization ( EUA) testauthorized by the [place] FDA. - XR CHEST 1 [id number] 08:03:00 [facility] : 1945 Sex: FPatient Name: JESUS JACOBS Unit No: [id number] EXAMS: CPT CODE: [id number] XR CHEST 1 V 52840 EXAM: Portable chest x-ray Dictation location: A1 COMPARISON: Chest x- ray on 04/03/2022 INDICATION: Acute renal failure DISCUSSION: The 2 right IJ central venous catheters and the visualized portion of the upper enteric tube overlie the appropriate position. Medial right lung base consolidation and a sm all to moderate-sized right pleural effusion appear similar. A right-sided pigtail chest tube is in place. No pneumothorax is seen. A multilead pacemaker is in place. The cardiac silhouette is within normal limits. No acute bony abnormalities are identified. IMPRESSION: A right-sided pigtail chest tube is in place. There is a persistent small to moderate-sized right pleural effusion and atelectasis and/or pneumonia at the medial right lung base. No pneumothorax is seen. at 0803 Reported and signed by: Marcell Felton M.D. CC: Sahil MCNAIR; Ephraim Pearce MD Technologist: KATIANA STARKS (R) Fluoro Time: DAP (Gy m2): Air Kerma (mGy): Trscr Dt/Tm: 04/04/2022 (0803) by:[email or web address] Printed Date/Time: 04/17/2022 (1228) Name: JESUS JACOBS [facility] Phys: Hernán Ramos MD [address] : 1945 Age: 76 Sex: [place] [address] Loc: P.[id number] 1 Exam Date: 04/04/2022 Status: DIS IN PH: FAX: PAGE 1 Signed Report- XR CHEST 1 [id number] 08:03:00 [facility] 1945 Sex: FPatient Name: JESUS JACOBS Unit No: [id number] EXAMS: CPT CODE: [id number] XR CHEST 1 V 87102 EXAM: Portable chest x-ray Dictation location: A1 COMPARISON: Chest x-ray on 04/03/2022 INDICATION: Acute renal failure DISCUSSION: The 2 right IJ central venous catheters and the visualized portion of the upperenteric tube overlie the appropriate position. Medial right lung base consolidation and a small to mo derate-sized right pleural effusion appear similar. A right-sided pigtail chest tube is in place. Nopneumothorax is seen. A multilead pacemaker is in place. The cardiac silhouette is within normal limits. No acute bony abnormalities are identified. IMPRESSION: A right-sided pigtail chest tube is in place. There is a persistent small to moderate-sized right pleural effusion and atelectasis and/or pneumonia at the medial right lung base. No pneumothorax is seen. at 0803 Reported and signed by: Marcell Felton M.D. CC: Hernán Villela; Ephraim Pearce MD Technologist: KATIANA STARKS (Madie) Fluoro Time: DAP (Gy m2): Air Kerma (mGy): Trscr Dt/Tm: 04/04/2022 (0803) by:[email or web address] Printed Date/Time: 04/04/2022 (0806) Name: JESUS JACOBS [facility] Phys: Hernán Ramos MD [address] : 1945 Age: 76 Sex: [place] [address] Loc: P.[id number] 1 Exam Date: 04/04/2022 Status: ADM IN PH: FAX: PAGE 1 Signed [id number] 06:32:00 Test Item Value Reference Range Interpretation Comments GLUBED (test code = GLUBED) 153 MG/DL 70-105 H [id number] 06:21:00 Test Item Value Reference Range Interpretation Comments GLUBED (test code = GLUBED) 92 MG/DL 70-105 N BLOOD GAS [id number] 04:54:00 Test Item Value Reference Range Interpretation Comments ARTERIAL BLOOD GAS 7.54 7.35-7.45 H PH (test code = PHA) ARTERIAL BLOOD GAS 24.6 mmHg 35.0-45.0 LL Critical Value PCO2 (test code = reported t oFirst PCO2A) Name:[employer] Last Name:BRAVO READ BACK AND REBECAIFDina [email or web address], on 04/04/22, @ 045 4. ARTERIAL BLOOD GAS 101.9 mmHg 80.0-95.0 H PO2 (test code = PO2A) BICARBONATE TOTAL 20.6 mmol/L 22.0-24.0 L HCO3 (test code = HCO3) BASE EXCESS (test -0.1 mmol/L See_Comment N [Automate d code = CINTHIA) message] The sy stem which generated this result transmitted reference range : (+/-)2.0. The reference range was not used to interpret this result as normal/abnormal . ARTERIAL FIO2 (test 28.0 % code = FIO2A) ABG VENT MODE (test NASAL CANNULA code = MODEA) ALLENS TEST (test NOT APPLICAPLE code = ALLENS) SODIUM (POC) (test 134 mmol/L 135-147 L code = NA/ABG) POTASSIUM (POC) 3.06 mmol/L 3.6-5.2 L (test code = K/ABG) CHLORIDE (ARTERIAL) 109 mmol/L 98-108 H (test code = CL/ABG) GLUCOSE (test code = 141 mg/dL 70-104 H GLU/ABG) IONIZED CALCIUM 1.06 mmol/L 1.12-1.32 L (test code = CAIABG) POC LACTIC ACID 2.47 mmol/L 0.5-2.2 H (test code = POCLAC) TCO2 ARTERIAL (test 21.4 MMOL/L 24-30 L code = TCO2A) COMPREHENSIVE METABOLIC [id number] 04:31:00 Test Item Value Reference Range Interpretation Comments SODIUM (test code 139 mmol/L 136-145 N Please not e: New = NA) Reference Range Jun 2020 POTASSIUM (test 3.2 mmol/L 3.5-5.1 L code = K) CHLORIDE (test 108 mmol/L 98-107 H Please note: New code = CL) Reference Range Jun 2020 CARBON DIOXIDE 20 mmol/L 20-31 N Please note: New (test code = CO2) Reference Range Jun 2020 GLUCOSE (test code 132 mg/dL 74-106 H Please no te: New = GLU) Reference Range Jun 2020 BLOOD UREA 15 mg/dL 9-23 N Please note: Ne w NITROGEN (test Reference Ran ge Feb code = BUN) 2020 GLOMERULAR >=60 max >60 The Glomerular FILTRATION RATE estimate mL/min Filtratio n Rate is a (test code = GFR) calculated parameterbased on serum Creatinin e, patient age and sex. GFR valuesless than 60 mL/min/1.73 square meters are [place] cative ofChronic Kidne y Disease. Values less than 15 mL/min/1.73squa re meters indicate Kidney failure. The calculation for GFR is based on the CK D-EPI (2020) calculat ion. This formulais race indifferent and is the recommended formula for GFR by the National Kidney Foundation for Adults.The GFR will not calculate i f the sex is unknown or if thepatient's ag e is <18 years. CREATININE (test 0.80 mg/dL 0.55-1.02 N Please note : New code = CREAT) Reference Rang e Jun 2020 TOTAL PROTEIN 5.1 g/dL 5.7-8.2 L Please note: N ew (test code = PROT) Reference Range Jun 2020 ALBUMIN (test code 2.6 g/dL 3.2-4.8 L Please no te: New = ALB) Reference Range Jun 2020 CALCIUM (test code 7.2 mg/dL 8.7-10.4 L Please no te: New = CA) Reference Range Jun 2020 BILIRUBIN TOTAL 2.2 mg/dL 0.3-1.2 H Please note: New (test code = BILT) Reference Range Jun 2020 SGOT/AST (test 419 U/L <34 H Please note: New code = AST) Reference Range Jun 2020 SGPT/ALT (test 726 U/L 10-49 H Please note: New code = ALT) Reference Range Jun 2020 ALKALINE 256 U/L 46-116 H Please note: Ne w PHOSPHATASE (test Reference Range Feb code = ALKP) 2021 [id number] 04:31:00 Test Item Value Reference Range Interpretation Comments PHOSPHOROUS (test code 2.7 mg/dL 2.4-5.1 N Pleas e note: New = PHOS) Reference Range Jun 2020 [id number] 04:31:00 Test Item Value Reference Range Interpretation Comments MAGNESIUM (test code = 2.2 mg/dL 1.6-2.6 N Pleas e note: New MAG) Reference Range Jun 2020 CBC W/AUTO [id number] 04:18:00 Test Item Value Reference Range Interpretation Comments WHITE BLOOD CELL (test code = 18.9 x10 3/uL 4.8-10.8 H WBC) RED BLOOD CELL (test code = 3.07 x10 6/uL 4.20-5.40 L RBC) HEMOGLOBIN (test code = HGB) 9.2 g/dL 12.0-16.0 L HEMATOCRIT (test code = HCT) 26.8 % 37.0-47.0 L MEAN CELL VOLUME (test code = 87.3 fL 81.0-99.0 N MCV) MEAN CELL HGB (test code = 30.0 pg 27-31 N MCH) MEAN CELL HGB CONCENTRATION 34.3 G/DL 33-36.5 N (test code = MCHC) RED CELL DISTRIBUTION WIDTH 20.8 % 12.9-16.9 H (test code = RDW) PLATELET COUNT (test code = 51 x10 3/uL 150-440 L PLT) MEAN PLATELET VOLUME (test 11.6 fL 8.9-12.4 N code = MPV) NEUTROPHIL % (test code = NT%) 83.6 % 42.2-75.2 H LYMPHOCYTE % (test code = LY%) 6.3 % 20.5-51.1 L MONOCYTE % (test code = MO%) 8.2 % 1.7-9.3 N EOSINOPHIL % (test code = EO%) 0.1 % 0.0-7.0 N BASOPHIL % (test code = BA%) 0.2 % 0-2.5 N NEUTROPHIL # (test code = NT#) 15.80 x10 3/uL 1.80-7.70 H LYMPHOCYTE # (test code = LY#) 1.19 x10 3/uL 1.00-4.80 N MONOCYTE # (test code = MO#) 1.55 x10 3/uL 0.00-0.80 H EOSINOPHIL # (test code = EO#) 0.02 x10 3/uL 0.00-0.45 N BASOPHIL # (test code = BA#) 0.03 x10 3/uL 0.0-0.20 N [id number] 00:18:00 Test Item Value Reference Range Interpretation Comments GLUBED (test code = GLUBED) 124 MG/DL 70-105 H BLOOD GAS [id number] 19:00:00 Test Item Value Reference Range Interpretation Comments ARTERIAL BLOOD GAS PH 7.60 7.35-7.45 H Critic al Value (test code = PHA) reported t oFirst Name:[employer]GE[employer] Last Name:NPRESULTS READ BACK AND VERIFIEDby [email or web address], on 04/02/22, @ 090 9. ARTERIAL BLOOD GAS PCO2 24.5 mmHg 35.0-45.0 LL Crit ical Value (test code = PCO2A) reported toFirst Name:POL[employer]GE[employer]CT Last Name:NPRESULTS READ BACK AND VERIFIEDby [email or web address], on 04/02/22, @ 090 9. ARTERIAL BLOOD GAS PO2 120.5 mmHg 80.0-95.0 H (test code = PO2A) BICARBONATE TOTAL HCO3 23.6 mmol/L 22.0-24.0 N (test code = HCO3) BASE EXCESS (test code 2.3 mmol/L See_Comment H [Aut omated = CINTHIA) message] The system which generated this result transmitted reference range : (+/-)2.0. The reference range was not used to interpret this result as normal/abnormal . ABG O2 SATURATION (test 98.5 % 95.0-100.0 N code = SATA) ARTERIAL FIO2 (test 28.0 % code = FIO2A) ABG VENT MODE (test NASAL CANNULA code = MODEA) ALLENS TEST (test code NOT APPLICAPLE = ALLENS) SODIUM (POC) (test code 134 mmol/L 135-147 L = NA/ABG) POTASSIUM (POC) (test 4.42 mmol/L 3.6-5.2 N code = K/ABG) CHLORIDE (ARTERIAL) 104 mmol/L 98-108 N (test code = CL/ABG) GLUCOSE (test code = 149 mg/dL 70-104 H GLU/ABG) IONIZED CALCIUM (test 1.07 mmol/L 1.12-1.32 L code = CAIABG) POC LACTIC ACID (test 3.69 mmol/L 0.5-2.2 H code = POCLAC) TOTAL HGB (test code = 7.7 g/dL 12.0-16.0 L THB) OXYHEMOGLOBIN (test 97.9 % 92.0-98.0 N code = OOHGBT) CARBOXYHEMOGLOBIN (test 0.3 % 0-5.0 N code = HOHGBT) METHEMOGLOBIN (test <0.8 % 0-1.5 N code = METHGB) HHb (test code = HHB) 1.5 % TCO2 ARTERIAL (test 24.4 MMOL/L 24-30 N code = TCO2A) BLOOD GAS [id number] 19:00:00 Test Item Value Reference Range Interpretation Comments ARTERIAL BLOOD GAS PH 7.64 7.35-7.45 HH Critic al Value (test code = PHA) reported t oFirst Name:POL[employer]GEANT [employer] Last Name:NPRESULTS READ BACK AND VERIFIEDby [email or web address], on 04/03/22, @ 190 0. ARTERIAL BLOOD GAS PCO2 24.1 mmHg 35.0-45.0 LL Crit ical Value (test code = PCO2A) reported toFirst Name:POLICE SERGEANT [employer]CINCT Last Name:NPRESULTS READ BACK AND VERIFIEDby [email or web address], on 04/03/22, @ 190 0. BICARBONATE TOTAL HCO3 25.1 mmol/L 22.0-24.0 H (test code = HCO3) BASE EXCESS (test code 3.9 mmol/L See_Comment H [Aut omated = CINTHIA) message] The system which generated this result transmitted reference range : (+/-)2.0. The reference range was not used to interpret this result as normal/abnormal . ABG O2 SATURATION (test 99.5 % 95.0-100.0 N code = SATA) ARTERIAL FIO2 (test 28.0 % code = FIO2A) ABG VENT MODE (test Ventilator code = MODEA) ALLENS TEST (test code NOT APPLICAPLE = ALLENS) SODIUM (POC) (test code 140 mmol/L 135-147 N = NA/ABG) POTASSIUM (POC) (test 4.42 mmol/L 3.6-5.2 N code = K/ABG) CHLORIDE (ARTERIAL) 110 mmol/L 98-108 H (test code = CL/ABG) GLUCOSE (test code = 119 mg/dL 70-104 H GLU/ABG) IONIZED CALCIUM (test 1.06 mmol/L 1.12-1.32 L code = CAIABG) POC LACTIC ACID (test 3.44 mmol/L 0.5-2.2 H code = POCLAC) TOTAL HGB (test code = 6.8 g/dL 12.0-16.0 L THB) OXYHEMOGLOBIN (test 98.1 % 92.0-98.0 H code = OOHGBT) CARBOXYHEMOGLOBIN (test 1.1 % 0-5.0 N code = HOHGBT) METHEMOGLOBIN (test <0.8 % 0-1.5 N code = METHGB) HHb (test code = HHB) 0.5 % TCO2 ARTERIAL (test 25.8 MMOL/L 24-30 N code = TCO2A) BASIC METABOLIC [id number] 12:37:00 Test Item Value Reference Range Interpretation Comments SODIUM (test code 140 mmol/L 136-145 N Please not e: New = NA) Reference Range Jun 2020 POTASSIUM (test 3.6 mmol/L 3.5-5.1 N code = K) CHLORIDE (test 107 mmol/L 98-107 N Please note: New code = CL) Reference Range Jun 2020 CARBON DIOXIDE 24 mmol/L 20-31 N Please note: New (test code = CO2) Reference Range Jun 2020 GLUCOSE (test code 138 mg/dL 74-106 H Please no te: New = GLU) Reference Range Jun 2020 BLOOD UREA 11 mg/dL 9-23 N Please note: Ne w NITROGEN (test Reference Ran ge Feb code = BUN) 2020 GLOMERULAR >=60 max >60 The Glomerular FILTRATION RATE estimate mL/min Filtratio n Rate is a (test code = GFR) calculated parameterbased on serum Creatinin e, patient age and sex. GFR valuesless than 60 mL/min/1.73 square meters are [place] cative ofChronic Kidne y Disease. Values less than 15 mL/min/1.73squa re meters indicate Kidney failure. The calculation for GFR is based on the CK D-EPI (2020) calculat ion. This formulais race indifferent and is the recommended formula for GFR by the National Kidney Foundation for Adults.The GFR will not calculate i f the sex is unknown or if thepatient's ag e is <18 years. CREATININE (test 0.50 mg/dL 0.55-1.02 L Please note : New code = CREAT) Reference Rang e Jun 2020 CALCIUM (test code 7.0 mg/dL 8.7-10.4 L Please no te: New = CA) Reference Range Jun 2020 [id number] 12:37:00 Test Item Value Reference Range Interpretation Comments PHOSPHOROUS (test code 3.8 mg/dL 2.4-5.1 Pleas e note: New = PHOS) Reference Range Jun 2020 [id number] 12:37:00 Test Item Value Reference Range Interpretation Comments MAGNESIUM (test code = 1.9 mg/dL 1.6-2.6 N Pleas e note: New MAG) Reference Range Jun 2020 PROTHROMBIN [id number] 11:39:00 Test Item Value Reference Range Interpretation Comments PROTHROMBIN TIME 17.6 SECONDS 10.3-12.9 H PATIENT (test code = PTP) INTERNATIONAL 1.50 INR UNIT 0.9-1.11 H The INR is us eful only NORMAL RATIO (test for monit oring code = INR) anticoagulant therapy.It may be unreliable in t he initial phase o f antigoagulation and in unstable patien ts. Indication for Anticoagulation Recommended INR 1. Prevention of v enous thomboembolism 2.0-3.0in high- risk patients; treat ment of venousthrombosi s and pulmonary embol ism aftera course o f heparin; preven tion of systemicembolis m in a variety of cond itions, including atria l fibrillation an d prothetic tissu e heart valves, 2. Pros thetic mechanical hear t valves; 2.5-3.5recurren t systemic emboli sm. THROMBOPLASTIN TIME [id number] 11:39:00 Test Item Value Reference Range Interpretation Comments THROMBOPLASTIN TIME 41.0 SECONDS 23.8-34.8 H INTERPRE TATIVE PARTIAL (test code = DATA: erapeutic PTT) range: Unfractionated heparin:55 - 80 seconds Argatroban:1.5 to 3 times the basel ine PTT [id number] 11:39:00 Test Item Value Reference Range Interpretation Comments FIBRINOGEN (test code = FIB) 335 mg/dL 200-400 N [id number] 11:38:00 Test Item Value Reference Range Interpretation Comments AMMONIA (test code = AMM) 29 mcmol/L 11-32 N VANCOMYCIN [id number] 08:18:00 Test Item Value Reference Range Interpretation Comments VANCOMYCIN TROUGH (test code = 16.6 mcg/dL 10.0-20.0 N VANCT) - XR CHEST 1 [id number] 08:04:00 [facility] 1945 Sex: FPatient Name: JESUS JACOBS Unit No: [id number] EXAMS: CPT CODE: [id number] XR CHEST 1 V 69104 CHEST, SINGLE VIEW LOCATION: A1 HISTORY: Acute renal failure. A single view of the chest at 5:14 AM was compared to a prior exam from April 02, 2022. FINDINGS: Streaky bibasilar infiltrative/atelectatic changes are stable along with small effusions and mild cardiomegaly/central pulmonary vascular con gestion. Lines and tubes are unchanged. No new findings are seen. IMPRESSION: No significant change from the prior exam. at 0804 Reported and signed by: Ryder Perez Jr, MD CC: Hernán Ford MD; Ephraim Pearce MD Technologist: KATIANA NORIEGA (R) Fluoro Time: DAP (Gy m2): Air Kerma (mGy): Trscr Dt/Tm: 04/03/2022 (0804) by:Darrell Printed Date/Time: 04/17/2022 (1228) Name: JESUS JACOBS [facility] Phys: Hernán Ramos MD [address] : 1945 Age: 76 Sex: [place] [address] Acct No: [id number] Loc: P.0213 1 Exam Date: 04/03/2022 Status: DIS IN PH: FAX: PAGE 1 Signed Report- XR CHEST 1 [id number] 08:04:00 [facility] : 1945 Sex: FPatient Name: JESUS JACOBS Unit No: [id number] EXAMS: CPT CODE: [id number] XR CHEST 1 V 20005 CHEST, SINGLE VIEW LOCATION: A1 HISTORY: Acute renal failure. A single view of the chest at 5:14 AM was compared to a prior exam from April 02, 2022. FINDINGS: Streaky bibasilar infiltrative/atelectatic changes are stable along with small effusions and mild cardiomegaly/central pulmonary vascular congestion. Lines and tubes are unchanged. No new findings are seen. IMPRESSION: No significant change from the prior exam. at 0804 Reported and signed by: Ryder Perez Jr, MD CC: Hernán Ford MD; Ephraim Pearce MD Technologist: KATIANA STARKS (R) Fluoro Time: DAP (Gy m2): Air Kerma (mGy): Trscr Dt/Tm: 04/03/2022 (803) by:Darrell Printed Date/Time: 04/03/2022 (807) Name: JESUS JACOBS [facility] Phys: Hernán Ramos MD [address] : 1945 Age: 76 Sex: [place] [address] Loc: P.0213 1 Exam Date: 04/03/2022 Status: ADM IN PH: FAX: PAGE 1 Signed Report CREATINE KINASE (CK)2022-04-03 06:21:00 Test Item Value Reference Range Interpretation Comments CREATINE KINASE (CK) 99 U/L 34-171 N Please note: New (test code = CK) Reference R bill Jun 2020 LIVER FUNCTION [id number] 05:07:00 Test Item Value Reference Range Interpretation Comments TOTAL PROTEIN (test 5.2 g/dL 5.7-8.2 L Please n ote: New code = PROT) Reference Range Jun 2020 ALBUMIN (test code = 2.6 g/dL 3.2-4.8 L Please note: New ALB) Reference Range Jun 2020 BILIRUBIN TOTAL (test 1.9 mg/dL 0.3-1.2 H Please note: New code = BILT) Reference Range Jun 2020 BILIRUBIN DIRECT (test 0.9 mg/dL <0.3 H Pleas e note: New code = BILD) Reference Range Jun 2020 SGOT/AST (test code = 1470 U/L <34 H Please note: New AST) Reference Range Jun 2020 SGPT/ALT (test code = 1169 U/L 10-49 H Please note: New ALT) Reference Range Jun 2020 ALKALINE PHOSPHATASE 259 U/L 46-116 H Please note: New (test code = ALKP) Reference Range Jun 2020 [id number] 05:07:00 Test Item Value Reference Range Interpretation Comments PHOSPHOROUS (test code 1.7 mg/dL 2.4-5.1 L Pleas e note: New = PHOS) Reference Range Jun 2020 [id number] 05:07:00 Test Item Value Reference Range Interpretation Comments MAGNESIUM (test code = 2.1 mg/dL 1.6-2.6 N Pleas e note: New MAG) Reference Range Jun 2020 BASIC METABOLIC [id number] 05:07:00 Test Item Value Reference Range Interpretation Comments SODIUM (test code 139 mmol/L 136-145 N Please not e: New = NA) Reference Range Jun 2020 POTASSIUM (test 3.7 mmol/L 3.5-5.1 N code = K) CHLORIDE (test 108 mmol/L 98-107 H Please note: New code = CL) Reference Range Jun 2020 CARBON DIOXIDE 22 mmol/L 20-31 N Please note: New (test code = CO2) Reference Range Jun 2020 GLUCOSE (test code 127 mg/dL 74-106 H Please no te: New = GLU) Reference Range Jun 2020 BLOOD UREA 10 mg/dL 9-23 N Please note: Ne w NITROGEN (test Reference Ran ge Feb code = BUN) 2020 GLOMERULAR >=60 max >60 The Glomerular FILTRATION RATE estimate mL/min Filtratio n Rate is a (test code = GFR) calculated parameterbased on serum Creatinin e, patient age and sex. GFR valuesless than 60 mL/min/1.73 square meters are [place] cative ofChronic Kidne y Disease. Values less than 15 mL/min/1.73squa re meters indicate Kidney failure. The calculation for GFR is based on the CK D-EPI (2020) calculat ion. This formulais race indifferent and is the recommended formula for GFR by the National Kidney Foundation for Adults.The GFR will not calculate i f the sex is unknown or if thepatient's ag e is <18 years. CREATININE (test 0.60 mg/dL 0.55-1.02 N Please note : New code = CREAT) Reference Rang e Jun 2020 CALCIUM (test code 7.2 mg/dL 8.7-10.4 L Please no te: New = CA) Reference Range Jun 2020 CBC W/AUTO [id number] 04:31:00 Test Item Value Reference Range Interpretation Comments WHITE BLOOD CELL (test code = 16.5 x10 3/uL 4.8-10.8 H WBC) RED BLOOD CELL (test code = 3.02 x10 6/uL 4.20-5.40 L RBC) HEMOGLOBIN (test code = HGB) 8.8 g/dL 12.0-16.0 L HEMATOCRIT (test code = HCT) 27.1 % 37.0-47.0 L MEAN CELL VOLUME (test code = 89.7 fL 81.0-99.0 N MCV) MEAN CELL HGB (test code = 29.1 pg 27-31 N MCH) MEAN CELL HGB CONCENTRATION 32.5 G/DL 33-36.5 L (test code = MCHC) RED CELL DISTRIBUTION WIDTH 20.4 % 12.9-16.9 H (test code = RDW) PLATELET COUNT (test code = 68 x10 3/uL 150-440 L PLT) MEAN PLATELET VOLUME (test 11.4 fL 8.9-12.4 N code = MPV) NEUTROPHIL % (test code = NT%) 86.5 % 42.2-75.2 H LYMPHOCYTE % (test code = LY%) 6.3 % 20.5-51.1 L MONOCYTE % (test code = MO%) 5.2 % 1.7-9.3 N EOSINOPHIL % (test code = EO%) 0.1 % 0.0-7.0 N BASOPHIL % (test code = BA%) 0.2 % 0-2.5 N NEUTROPHIL # (test code = NT#) 14.26 x10 3/uL 1.80-7.70 H LYMPHOCYTE # (test code = LY#) 1.04 x10 3/uL 1.00-4.80 N MONOCYTE # (test code = MO#) 0.85 x10 3/uL 0.00-0.80 H EOSINOPHIL # (test code = EO#) 0.01 x10 3/uL 0.00-0.45 N BASOPHIL # (test code = BA#) 0.04 x10 3/uL 0.0-0.20 N BLOOD GAS [id number] 03:47:00 Test Item Value Reference Range Interpretation Comments ARTERIAL BLOOD GAS PH 7.59 7.35-7.45 H (test code = PHA) ARTERIAL BLOOD GAS PCO2 26.5 mmHg 35.0-45.0 L (test code = PCO2A) ARTERIAL BLOOD GAS PO2 96.1 mmHg 80.0-95.0 H (test code = PO2A) BICARBONATE TOTAL HCO3 25.1 mmol/L 22.0-24.0 H (test code = HCO3) BASE EXCESS (test code 3.9 mmol/L See_Comment H [Aut omated = CINTHIA) message] The system which generated this result transmitted reference range : (+/-)2.0. The reference range was not used to interpret this result as normal/abnormal . ABG O2 SATURATION (test 97.7 % 95.0-100.0 N code = SATA) ARTERIAL FIO2 (test 28.0 % code = FIO2A) ABG VENT MODE (test NASAL CANNULA code = MODEA) ALLENS TEST (test code NOT APPLICAPLE = ALLENS) SODIUM (POC) (test code 135 mmol/L 135-147 N = NA/ABG) POTASSIUM (POC) (test 3.59 mmol/L 3.6-5.2 L code = K/ABG) CHLORIDE (ARTERIAL) 106 mmol/L 98-108 N (test code = CL/ABG) GLUCOSE (test code = 137 mg/dL 70-104 H GLU/ABG) IONIZED CALCIUM (test 1.10 mmol/L 1.12-1.32 L code = CAIABG) POC LACTIC ACID (test 2.16 mmol/L 0.5-2.2 N code = POCLAC) TOTAL HGB (test code = 9.7 g/dL 12.0-16.0 L THB) OXYHEMOGLOBIN (test 97.1 % 92.0-98.0 N code = OOHGBT) CARBOXYHEMOGLOBIN (test 0.3 % 0-5.0 N code = HOHGBT) METHEMOGLOBIN (test <0.8 % 0-1.5 N code = METHGB) HHb (test code = HHB) 2.3 % TCO2 ARTERIAL (test 25.9 MMOL/L 24-30 N code = TCO2A) [id number] 01:22:00 Test Item Value Reference Range Interpretation Comments GLUBED (test code = GLUBED) 137 MG/DL 70-105 H BLOOD GAS [id number] 22:17:00 Test Item Value Reference Range Interpretation Comments ARTERIAL BLOOD GAS PH 7.63 7.35-7.45 HH Critic al Value (test code = PHA) reported t oFirst Name:[employer]GEANT [employer] Last Name:NPRESULTS READ BACK AND VERIFIEDby [email or web address], on 04/02/22, @ 221 7. 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 BICARBONATE TOTAL HCO3 24.4 mmol/L 22.0-24.0 H (test code = HCO3) BASE EXCESS (test code 3.8 mmol/L See_Comment H [Aut omated = CINTHIA) message] The system which generated this result transmitted reference range : (+/-)2.0. The reference range was not used to interpret this result as normal/abnormal . ABG O2 SATURATION (test 99.1 % 95.0-100.0 N code = SATA) ARTERIAL FIO2 (test 32.0 % code = FIO2A) ABG VENT MODE (test NASAL CANNULA code = MODEA) ALLENS TEST (test code NOT APPLICAPLE = ALLENS) SODIUM (POC) (test code 134 mmol/L 135-147 L = NA/ABG) POTASSIUM (POC) (test 3.52 mmol/L 3.6-5.2 L code = K/ABG) CHLORIDE (ARTERIAL) 107 mmol/L 98-108 N (test code = CL/ABG) GLUCOSE (test code = 127 mg/dL 70-104 H GLU/ABG) IONIZED CALCIUM (test 1.06 mmol/L 1.12-1.32 L code = CAIABG) POC LACTIC ACID (test 2.20 mmol/L 0.5-2.2 N code = POCLAC) TOTAL HGB (test code = 9.2 g/dL 12.0-16.0 L THB) OXYHEMOGLOBIN (test 98.2 % 92.0-98.0 H code = OOHGBT) CARBOXYHEMOGLOBIN (test 0.6 % 0-5.0 N code = HOHGBT) METHEMOGLOBIN (test <0.8 % 0-1.5 N code = METHGB) HHb (test code = HHB) 0.9 % TCO2 ARTERIAL (test 25.1 MMOL/L 24-30 N code = TCO2A) BASIC METABOLIC [id number] 20:29:00 Test Item Value Reference Range Interpretation Comments SODIUM (test code 139 mmol/L 136-145 N Please not e: New = NA) Reference Range Jun 2020 POTASSIUM (test 3.6 mmol/L 3.5-5.1 N code = K) CHLORIDE (test 108 mmol/L 98-107 H Please note: New code = CL) Reference Range Jun 2020 CARBON DIOXIDE 22 mmol/L 20-31 N Please note: New (test code = CO2) Reference Range Jun 2020 GLUCOSE (test code 123 mg/dL 74-106 H Please no te: New = GLU) Reference Range Jun 2020 BLOOD UREA 12 mg/dL 9-23 N Please note: Ne w NITROGEN (test Reference Ran ge Feb code = BUN) 2020 GLOMERULAR >=60 max >60 The Glomerular FILTRATION RATE estimate mL/min Filtratio n Rate is a (test code = GFR) calculated parameterbased on serum Creatinin e, patient age and sex. GFR valuesless than 60 mL/min/1.73 square meters are [place] cative ofChronic Kidne y Disease. Values less than 15 mL/min/1.73squa re meters indicate Kidney failure. The calculation for GFR is based on the CK D-EPI (2020) calculat ion. This formulais race indifferent and is the recommended formula for GFR by the National Kidney Foundation for Adults.The GFR will not calculate i f the sex is unknown or if thepatient's ag e is <18 years. CREATININE (test 0.60 mg/dL 0.55-1.02 N Please note : New code = CREAT) Reference Rang e Jun 2020 CALCIUM (test code 7.1 mg/dL 8.7-10.4 L Please no te: New = CA) Reference Range Jun 2020 [id number] 20:29:00 Test Item Value Reference Range Interpretation Comments PHOSPHOROUS (test code 2.5 mg/dL 2.4-5.1 N Pleas e note: New = PHOS) Reference Range Jun 2020 [id number] 20:29:00 Test Item Value Reference Range Interpretation Comments MAGNESIUM (test code = 1.9 mg/dL 1.6-2.6 N Pleas e note: New MAG) Reference Range Jun 2020 CBC W/AUTO [id number] 17:38:00 Test Item Value Reference Range Interpretation Comments WHITE BLOOD CELL (test code = 18.0 x10 3/uL 4.8-10.8 H WBC) RED BLOOD CELL (test code = 2.76 x10 6/uL 4.20-5.40 L RBC) HEMOGLOBIN (test code = HGB) 8.2 g/dL 12.0-16.0 L HEMATOCRIT (test code = HCT) 24.3 % 37.0-47.0 L MEAN CELL VOLUME (test code = 88.0 fL 81.0-99.0 MCV) MEAN CELL HGB (test code = 29.7 pg 27-31 N MCH) MEAN CELL HGB CONCENTRATION 33.7 G/DL 33-36.5 N (test code = MCHC) RED CELL DISTRIBUTION WIDTH 20.0 % 12.9-16.9 H (test code = RDW) PLATELET COUNT (test code = 90 x10 3/uL 150-440 L PLT) MEAN PLATELET VOLUME (test 11.1 fL 8.9-12.4 N code = MPV) NEUTROPHIL % (test code = NT%) 87.7 % 42.2-75.2 H LYMPHOCYTE % (test code = LY%) 5.8 % 20.5-51.1 L MONOCYTE % (test code = MO%) 4.8 % 1.7-9.3 N EOSINOPHIL % (test code = EO%) 0.1 % 0.0-7.0 N BASOPHIL % (test code = BA%) 0.2 % 0-2.5 N NEUTROPHIL # (test code = NT#) 15.78 x10 3/uL 1.80-7.70 H LYMPHOCYTE # (test code = LY#) 1.05 x10 3/uL 1.00-4.80 N MONOCYTE # (test code = MO#) 0.86 x10 3/uL 0.00-0.80 H EOSINOPHIL # (test code = EO#) 0.02 x10 3/uL 0.00-0.45 N BASOPHIL # (test code = BA#) 0.03 x10 3/uL 0.0-0.20 N BLOOD GAS [id number] 17:23:00 Test Item Value Reference Range Interpretation Comments ARTERIAL BLOOD GAS PH 7.54 7.35-7.45 H (test code = PHA) ARTERIAL BLOOD GAS PCO2 30.5 mmHg 35.0-45.0 L (test code = PCO2A) ARTERIAL BLOOD GAS PO2 142.0 mmHg 80.0-95.0 H (test code = PO2A) BICARBONATE TOTAL HCO3 25.3 mmol/L 22.0-24.0 H (test code = HCO3) BASE EXCESS (test code 2.9 mmol/L See_Comment H [Aut omated = CINTHIA) message] The system which generated this result transmitted reference range : (+/-)2.0. The reference range was not used to interpret this result as normal/abnormal . ABG O2 SATURATION (test 98.5 % 95.0-100.0 N code = SATA) ARTERIAL FIO2 (test 28.0 % code = FIO2A) ABG VENT MODE (test NASAL CANNULA code = MODEA) ALLENS TEST (test code NOT APPLICAPLE = ALLENS) SODIUM (POC) (test code 134 mmol/L 135-147 L = NA/ABG) POTASSIUM (POC) (test 3.70 mmol/L 3.6-5.2 N code = K/ABG) CHLORIDE (ARTERIAL) 105 mmol/L 98-108 N (test code = CL/ABG) GLUCOSE (test code = 139 mg/dL 70-104 H GLU/ABG) IONIZED CALCIUM (test 1.11 mmol/L 1.12-1.32 L code = CAIABG) POC LACTIC ACID (test 2.11 mmol/L 0.5-2.2 N code = POCLAC) TOTAL HGB (test code = 9.1 g/dL 12.0-16.0 L THB) OXYHEMOGLOBIN (test 97.9 % 92.0-98.0 N code = OOHGBT) CARBOXYHEMOGLOBIN (test 0.3 % 0-5.0 N code = HOHGBT) METHEMOGLOBIN (test <0.8 % 0-1.5 N code = METHGB) HHb (test code = HHB) 1.5 % TCO2 ARTERIAL (test 26.2 MMOL/L 24-30 N code = TCO2A) BASIC METABOLIC [id number] 13:15:00 Test Item Value Reference Range Interpretation Comments SODIUM (test code 140 mmol/L 136-145 N Please not e: New = NA) Reference Range Jun 2020 POTASSIUM (test 4.1 mmol/L 3.5-5.1 N code = K) CHLORIDE (test 107 mmol/L 98-107 N Please note: New code = CL) Reference Range Jun 2020 CARBON DIOXIDE 24 mmol/L 20-31 N Please note: New (test code = CO2) Reference Range Jun 2020 GLUCOSE (test code 139 mg/dL 74-106 H Please no te: New = GLU) Reference Range Jun 2020 BLOOD UREA 21 mg/dL 9-23 N Please note: Ne w NITROGEN (test Reference Ran ge Feb code = BUN) 2020 GLOMERULAR >=60 max >60 The Glomerular FILTRATION RATE estimate mL/min Filtratio n Rate is a (test code = GFR) calculated parameterbased on serum Creatinin e, patient age and sex. GFR valuesless than 60 mL/min/1.73 square meters are [place] cative ofChronic Kidne y Disease. Values less than 15 mL/min/1.73squa re meters indicate Kidney failure. The calculation for GFR is based on the CK D-EPI (2020) calculat ion. This formulais race indifferent and is the recommended formula for GFR by the National Kidney Foundation for Adults.The GFR will not calculate i f the sex is unknown or if thepatient's ag e is <18 years. CREATININE (test 0.70 mg/dL 0.55-1.02 N Please note : New code = CREAT) Reference Rang e Jun 2020 CALCIUM (test code 7.4 mg/dL 8.7-10.4 L Please no te: New = CA) Reference Range Jun 2020 [id number] 13:15:00 Test Item Value Reference Range Interpretation Comments PHOSPHOROUS (test code 2.2 mg/dL 2.4-5.1 L Pleas e note: New = PHOS) Reference Range Jun 2020 [id number] 13:15:00 Test Item Value Reference Range Interpretation Comments MAGNESIUM (test code = 2.0 mg/dL 1.6-2.6 N Pleas e note: New MAG) Reference Range Jun 2020 [id number] 12:34:00 Test Item Value Reference Range Interpretation Comments GLUBED (test code = GLUBED) 135 MG/DL 70-105 H COVID 19 Asymptomatic IH [id number] 10:12:00 Test Item Value Reference Range Interpretation Comments COVID 19 NEGATIVE NEGATIVE Negative result s, from Asymptomatic IH AG patients with symptom (test code = onset beyondfiv e days, COVNONPUIAG) should be treat ed as presumptive and confirmationwit h a molecular assay , if necessary for patientmanageme nt, may be performed. Nega tive results do not ruleout COVID-19 and sh ould not be used as the sole basis fortreatment or patient management deci sions, includinginfect ion control decisio ns. Negative result s should beconsidered in the context of a pa tient's recent exposure s,history and the presenc e of clinical signs and symptomsconsist ent with COVID-19. AB HEPATITIS B [id number] 08:10:00 Test Item Value Reference Range Interpretation Comments AB HEPATITIS B SURFACE (test code Nonreactive Nonreactive = HBSAB) AG HEPATITIS B [id number] 08:10:00 Test Item Value Reference Range Interpretation Comments AG HEPATITIS B SURFACE (test code Nonreactive Nonreactive = HBSAG) AB HEPATITIS [id number] 08:10:00 Test Item Value Reference Range Interpretation Comments AB HEPATITIS C (test code = Nonreactive Nonreactive HCVAB) - XR CHEST 1 [id number] 08:01:00 [facility] 1945 Sex: FPatient Name: JESUS JACOBS Unit No: [id number] EXAMS: CPT CODE: [id number] XR CHEST 1 V [id number]: Portable chest x-ray Dictation location: A1 COMPARISON: Chest x- ray on 04/01/2022 INDICATION:Acute renal failure DISCUSSION: The visualized portion of the upper enteric tube, and 2 right IJ central venous catheters overlie the appropriate position. There is partial consolidation at the right zack ng base and small bilateral pleural effusions. A right-sided pigtail chest tube is in place. No pneumothorax is seen. The cardiac silhouette is at the upper limits of normal in size, with a dual-lead pacemaker in place. No acute bony abnormalities are identified. IMPRESSION: 1. Small bilateral pleuraleffusions. A right-sided pigtail chest tube is in place. No pneumothorax is seen. 2. Partial consolidation at the right lung base, either due to atelectasis, pneumonia, or a combination of these. 3. Upper limits of normal cardiac silhouette size. A pacemaker is in place. at 0801 Reported and signed by: Marcell Felton M.D. CC: Hernán Ford MD; Ephraim Pearce MD Technologist: Dipti Funk Fluoro Time: DAP (Gy m2): Air Kerma (mGy): Trscr Dt/Tm: 04/02/2022 (0801) by:[email or web address] Printed Date/Time: 04/17/2022 (1228) Name: JESUS JACOBS [facility] Phys: Hernán Ramos MD [address] : 1945 Age: 76 Sex: [place] [address] Loc: [id number] 1 Exam Date: 04/02/2022 Status: DIS IN PH: FAX: PAGE 1 Signed Report- XR CHEST 1 [id number] 08:01:00[facility] : 1945 Sex: FPatient Name: JESUS JACOBS Unit No: [id number] EXAMS: CPT CODE: [id number] XR CHEST 1 V [id number] EXAM: Portable chest x-ray Dictation location: A1 COMPARISON: Chest x-ray on 04/01/2022 INDICATION: Acute renalfailure DISCUSSION: The visualized portion of the upper enteric tube, and 2 right IJ central venous catheters overlie the appropriate position. There is partial consolidation at the right lung base and small bilateral pleural effusions. A right-sided pigtail chest tube is in place. No pneumothorax is seen. The cardiac silhouette is at the upper limits of normal in size, with a dual-lead pacemaker in place. No acute bony abnormalities are identified. IMPRESSION: 1. Small bilateral pleural effusions. A right-sided pigtail chest tube is in place. No pneumothorax is seen. 2. Partial consolidation at the right lung base, either due to atelectasis, pneumonia, or a combination of these. 3. Upper limits of normal cardiac silhouette size. A pacemaker is in place. at 0801 Reported and signed by: Marcell Felton M.D. CC: Hernán Ford MD; Ephraim Pearce MD Technologist: Dipti Funk Fluoro Time: DAP (Gy m2): Air Kerma (mGy): Trscr Dt/Tm: 04/02/2022 (800) by:[email or web address] Printed Date/Time: 04/02/2022 (803) Name: JESUS JACOBS [facility] Phys: Hernán Ramos MD [address] : 1945 Age: 76 Sex: [place] [address] Loc: P.[id number] 1 Exam Date: 04/02/2022 Status: ADM IN PH: FAX: PAGE 1 Signed ReportPROTHROMBIN [id number] 05:29:00 Test Item Value Reference Range Interpretation Comments PROTHROMBIN TIME 20.6 SECONDS 10.3-12.9 H PATIENT (test code = PTP) INTERNATIONAL 1.77 INR UNIT 0.9-1.11 H The INR is us eful only NORMAL RATIO (test for monit oring code = INR) anticoagulant therapy.It may be unreliable in t he initial phase o f antigoagulation and in unstable patien ts. Indication for Anticoagulation Recommended INR 1. Prevention of v enous thomboembolism 2.0-3.0in high- risk patients; treat ment of venousthrombosi s and pulmonary embol ism aftera course o f heparin; preven tion of systemicembolis m in a variety of cond itions, including atria l fibrillation an d prothetic tissu e heart valves, 2. Pros thetic mechanical hear t valves; 2.5-3.5recurren t systemic emboli sm. THROMBOPLASTIN TIME [id number] 05:29:00 Test Item Value Reference Range Interpretation Comments THROMBOPLASTIN TIME 38.8 SECONDS 23.8-34.8 H INTERPRE TATIVE PARTIAL (test code = DATA: erapeutic PTT) range: Unfractionated heparin:55 - 80 seconds Argatroban:1.5 to 3 times the basel ine PTT BASIC METABOLIC [id number] 05:09:00 Test Item Value Reference Range Interpretation Comments SODIUM (test code 141 mmol/L 136-145 N Please not e: New = NA) Reference Range Jun 2020 POTASSIUM (test 4.2 mmol/L 3.5-5.1 N code = K) CHLORIDE (test 107 mmol/L 98-107 N Please note: New code = CL) Reference Range Jun 2020 CARBON DIOXIDE 25 mmol/L 20-31 N Please note: New (test code = CO2) Reference Range Jun 2020 GLUCOSE (test code 126 mg/dL 74-106 H Please no te: New = GLU) Reference Range Jun 2020 BLOOD UREA 30 mg/dL 9-23 H Please note: Ne w NITROGEN (test Reference Ran ge Feb code = BUN) 2020 GLOMERULAR >=60 max >60 The Glomerular FILTRATION RATE estimate mL[facility] Rate is a (test code = GFR) calculated parameterbased on serum Creatinin e, patient age and sex. GFR valuesless than 60 mL/min/1.73 square meters are [place] cative ofChronic Kidne y Disease. Values less than 15 mL/min/1.73squa re meters indicate Kidney failure. The calculation for GFR is based on the CK D-EPI (2020) calculat ion. This formulais race indifferent and is the recommended formula for GFR by the National Kidney Foundation for Adults.The GFR will not calculate i f the sex is unknown or if thepatient's ag e is <18 years. CREATININE (test 0.80 mg/dL 0.55-1.02 N Please note : New code = CREAT) Reference Rang e Jun 2020 CALCIUM (test code 7.5 mg/dL 8.7-10.4 L Please no te: New = CA) Reference Range Jun 2020 COMPREHENSIVE METABOLIC [id number] 05:09:00 Test Item Value Reference Range Interpretation Comments TOTAL PROTEIN (test 5.5 g/dL 5.7-8.2 L Please n ote: New code = PROT) Reference Range Jun 2020 ALBUMIN (test code = 3.2 g/dL 3.2-4.8 N Please note: New ALB) Reference Range Jun 2020 BILIRUBIN TOTAL (test 1.3 mg/dL 0.3-1.2 H Please note: New code = BILT) Reference Range Jun 2020 SGOT/AST (test code = 4028 U/L <34 H Please note: New AST) Reference Range Jun 2020 SGPT/ALT (test code = 1883 U/L 10-49 H Please note: New ALT) Reference Range Jun 2020 ALKALINE PHOSPHATASE 228 U/L 46-116 H Please note: New (test code = ALKP) Reference Range Jun 2020 [id number] 05:09:00 Test Item Value Reference Range Interpretation Comments PHOSPHOROUS (test code 2.1 mg/dL 2.4-5.1 L Pleas e note: New = PHOS) Reference Range Jun 2020 [id number] 05:09:00 Test Item Value Reference Range Interpretation Comments MAGNESIUM (test code = 2.0 mg/dL 1.6-2.6 N Pleas e note: New MAG) Reference Range Jun 2020 LACTIC [id number] 04:54:00 Test Item Value Reference Range Interpretation Comments LACTIC ACID (test 3.20 mmol/L 0.5-2.0 HH Critical V alue reported code = LACT) toFirst Name:RADHA VELA Last Name:[place] RMAS RESULTS READ CASSIA GUTIERREZ AND VERIFIEDby ASHLEY LOPEZ, on 04/02/22, @ 045 4. CBC W/AUTO [id number] 04:53:00 Test Item Value Reference Range Interpretation Comments WHITE BLOOD CELL (test code = 18.3 x10 3/uL 4.8-10.8 H WBC) RED BLOOD CELL (test code = 2.26 x10 6/uL 4.20-5.40 L RBC) HEMOGLOBIN (test code = HGB) 7.0 g/dL 12.0-16.0 L HEMATOCRIT (test code = HCT) 21.1 % 37.0-47.0 L MEAN CELL VOLUME (test code = 93.4 fL 81.0-99.0 N MCV) MEAN CELL HGB (test code = 30.5 pg 27-31 N MCH) MEAN CELL HGB CONCENTRATION 32.7 G/DL 33-36.5 L (test code = MCHC) RED CELL DISTRIBUTION WIDTH 21.7 % 12.9-16.9 H (test code = RDW) PLATELET COUNT (test code = 47 x10 3/uL 150-440 L PLT) MEAN PLATELET VOLUME (test 11.9 fL 8.9-12.4 N code = MPV) NEUTROPHIL % (test code = NT%) 85.3 % 42.2-75.2 H LYMPHOCYTE % (test code = LY%) 8.6 % 20.5-51.1 L MONOCYTE % (test code = MO%) 4.8 % 1.7-9.3 N EOSINOPHIL % (test code = EO%) 0.1 % 0.0-7.0 N BASOPHIL % (test code = BA%) 0.2 % 0-2.5 N NEUTROPHIL # (test code = NT#) 15.64 x10 3/uL 1.80-7.70 H LYMPHOCYTE # (test code = LY#) 1.57 x10 3/uL 1.00-4.80 N MONOCYTE # (test code = MO#) 0.88 x10 3/uL 0.00-0.80 H EOSINOPHIL # (test code = EO#) 0.01 x10 3/uL 0.00-0.45 N BASOPHIL # (test code = BA#) 0.04 x10 3/uL 0.0-0.20 N - XR ABDOMEN [id number] 23:02:00 [facility] : 1945 Sex: FPatient Name: JESUS JACOBS Unit No: [id number] EXAMS: CPT CODE: [id number] XR ABDOMEN 1V [id number] LOCATION: Q15 HISTORY: 76-year-old female, status post nasogastric tube placement. COMMENT: A radiograph of the abdomen was obtained with the patient lying supine at 10:31 p.m. The nasogastric tube is seen in the curve along the lesser gastric curvature. The tip is in the distal gastric antrum and the side- port is in the junction between the gastric body and antrum. Otherwise the abdomen is unchanged.IMPRESSION: This patient's nasogastric tube is within the stomach. Please see above for details. at 2302 Reported and signed by: YANNA GALARZA M.D. CC: Yadiel Carrion DO; Hernán Ford MD; Ephraim Pearce MD Technologist: Jazmin Soto Time: DAP (Gy m2): Air Kerma (mGy): Trscr Dt/Tm: 04/01/2022 (2302) by:[email or web address] Printed Date/Time: 04/17/2022 (1228) Name: JESUS JACBOS [facility] Phys: Yadiel Solorio [address] : 1945 Age: 76 Sex: [place] [address] Loc: P.[id number] 1 Exam Date: 04/01/2022 Status: DIS IN PH: FAX: PAGE 1 Signed Report- XR ABDOMEN [id number] 23:02:00 [facility] : 1945 Sex: FPatient Name: JESUS JACOBS Unit No: [id number] EXAMS: CPT CODE: [id number] XR ABDOMEN 1V [id number] LOCATION: Q15 HISTORY: 76-year-old female, status post nasogastric tube placement. COMMENT: A radiograph of the abdomen was obtained with the patient lying supine at 10:31 p.m. The nasogastric tube is seen in the curve along the lesser gastric curvature. The tip is in the distal gastric antrum and the side-port is in the junction between the gastric body and antrum. Otherwise the abdomen is unchanged. IMPRESSION: This patient's nasogastric tube is within the stomach. Please see above for details. at 2302 Reported and signed by: YNANA GALARZA M.D. CC: Yadiel Carrion DO; Hernán Ford MD; Ephraim Pearce MD Technologist: Jazmin Soto Time: DAP (Gy m2): Air Kerma (mGy): Trscr Dt/Tm: 04/01/2022 (2301) by:[email or web address] Printed Date/Time: 04/01/2022 (2305) Name: JESUS JACOBS [facility] Phys: Yadiel Carrion [address] : 1945 Age: 76 Sex: [place] [address] Loc: P.[id number] 1 Exam Date:04/01/2022 Status: ADM IN PH: FAX: PAGE 1 Signed ReportBASIC METABOLIC [id number] 21:26:00 Test Item Value Reference Range Interpretation Comments SODIUM (test code = 146 mmol/L 136-145 H Please n ote: New NA) Reference Range Jun 2020 POTASSIUM (test code 4.3 mmol/L 3.5-5.1 = K) CHLORIDE (test code 112 mmol/L 98-107 H Please n ote: New = CL) Reference Range Jun 2020 CARBON DIOXIDE (test 24 mmol/L 20-31 N Please note: New code = CO2) Reference Range Jun 2020 GLUCOSE (test code = 125 mg/dL 74-106 H Please note: New GLU) Reference Range Jun 2020 BLOOD UREA NITROGEN 48 mg/dL 9-23 H Please n ote: New (test code = BUN) Reference Range Jun 2020 GLOMERULAR 51 mL/min >60 L The Glomerular FILTRATION RATE Filtration R ate is a (test code = GFR) calculated parameterbased on serum Creatinine, pat ient age and sex. GFR va luesless than 60 mL/min/ 1.73 square meters a re indicative ofCh ronic Kidney Disease. Values less than 15 mL/min/1.73squa re meters indicate Kidney failure. The calculation for GFR is based on the CK D-EPI (2020) calculat ion. This formulais race indifferent and is the recommended for rodolfo for GFRby the [facility] Kidney Foundati on for Adults.The GFR will not calculate if th e sex is unknown or if thepatient's ag e is <18 years. CREATININE (test 1.10 mg/dL 0.55-1.02 H Please note : New code = CREAT) Reference Rang e Jun 2020 CALCIUM (test code = 7.7 mg/dL 8.7-10.4 L Please note: New CA) Reference Range Jun 2020 [id number] 21:26:00 Test Item Value Reference Range Interpretation Comments PHOSPHOROUS (test code 2.5 mg/dL 2.4-5.1 Pleas e note: New = PHOS) Reference Range Jun 2020 LACTIC [id number] 21:22:00 Test Item Value Reference Range Interpretation Comments LACTIC ACID (test 2.90 mmol/L 0.5-2.0 HH Critical V alue reported code = LACT) toFirst Name:GONZALEZ BRADFORD Last Name:MELO RETANA READ BACK AND VERIFIEDby LORA, on 04/01/22, @ 2122. UA RFLX MICR CULT IF [id number] 17:27:00 Test Item Value Reference Range Interpretation Comments UA COLOR (test code = COLU) YELLOW DISCRIPT YELLOW UA APPEARANCE (test code = OPAQUE DISCRIPT CLEAR A APPU) UA GLUCOSE DIPSTICK (test NEGATIVE mg/dL NEGATIVE code = DGLUU) UA BILIRUBIN DIPSTICK (test NEGATIVE NEGATIVE code = BILU) UA KETONE DIPSTICK (test code NEGATIVE mg/dL NEGATIVE = KETU) UA SPECIFIC GRAVITY (test 1.010 1.005-1.030 code = SGU) UA BLOOD DIPSTICK (test code LARGE NEGATIVE A = SALVADOR) UA PH DIPSTICK (test code = 6.5 5.0-9.0 LIGIA) UA PROTEIN DIPSTICK (test 30 mg/dL NEGATIVE A code = PROU) UA UROBILINOGEN DIPSTICK 0.2 mg/dL 0.2-1.0 (test code = URO) UA NITRITE DIPSTICK (test NEGATIVE NEGATIVE code = MEIDNA) UA LEUKOCYTE ESTERASE TRACE NEGATIVE A DIPSTICK (test code = LEUU) UA WBC (test code = WBCU) 3-5 #WBC/HPF 0-2 A UA RBC (test code = RBCU) >100 #RBC/HPF 0-2 A UA BACTERIA (test code = 1+ /HPF NONE-TRACE A BACU) UA SQUAMOUS CELLS (test code 1+ /LPF NONE-TRACE A = SQU) Indication for culture: RiskForSepsis-no oth srcSpecimen Description: TAMAYO CATHETERIZED URINESpec Comments: Outside hospital tamayo catheterBASIC METABOLIC [id number] 14:34:00 Test Item Value Reference Range Interpretation Comments SODIUM (test code = 158 mmol/L 136-145 H Please n ote: New NA) Reference Range Jun 2020 POTASSIUM (test code 3.2 mmol/L 3.5-5.1 L = K) CHLORIDE (test code 120 mmol/L 98-107 H Please n ote: New = CL) Reference Range Jun 2020 CARBON DIOXIDE (test 22 mmol/L 20-31 N Please note: New code = CO2) Reference Range Jun 2020 GLUCOSE (test code = 113 mg/dL 74-106 H Please note: New GLU) Reference Range Jun 2020 BLOOD UREA NITROGEN 93.6 mg/dL 9-23 H Please n ote: New (test code = BUN) Reference Range Jun 2020 GLOMERULAR 31 mL/min >60 L The Glomerular FILTRATION RATE Filtration R ate is a (test code = GFR) calculated parameterbased on serum Creatinine, pat ient age and sex. GFR va luesless than 60 mL/min/ 1.73 square meters a re indicative ofCh ronic Kidney Disease. Values less than 15 mL/min/1.73squa re meters indicate Kidney failure. The calculation for GFR is based on the CK D-EPI (2020) calculat ion. This formulais race indifferent and is the recommended for rodolfo for GFRby the [facility] n[facility] Kidney Foundati on for Adults.The GFR will not calculate if th e sex is unknown or if thepatient's ag e is <18 years. CREATININE (test 1.70 mg/dL 0.55-1.02 H Please note : New code = CREAT) Reference Rang e Jun 2020 CALCIUM (test code = 6.1 mg/dL 8.7-10.4 L Please note: New CA) Reference Range Jun 2020 [id number] 14:34:00 Test Item Value Reference Range Interpretation Comments PHOSPHOROUS (test code 4.9 mg/dL 2.4-5.1 Pleas e note: New = PHOS) Reference Range Jun 2020 [id number] 14:01:00 Test Item Value Reference Range Interpretation Comments AMMONIA (test code = AMM) 37 mcmol/L 11-32 H LACTIC [id number] 13:54:00 Test Item Value Reference Range Interpretation Comments LACTIC ACID (test 2.60 mmol/L 0.5-2.0 HH Critical V alue reported code = LACT) toFirst Name:PING SON Last Name:SHARRONBHAVNA AGUIAR READ BACK AND QIANA Lui.AS32, on 04/01/22, @ 135 4. - DUP ABD/PEL/SC [id number] 13:13:00 [facility] : 1945 Sex: FPatient Name: JESUS JACOBS Unit No: [id number] EXAMS: CPT CODE: [id number] DUP ABD/PEL/SC COMP [id number] EXAM: Right upper quadrant ultrasound with Doppler Dictation location: A1 INDICATION: Acute AST greater than ALT transaminitis COMPARISON: CT abdomen performed earlier the same day DISCUSSION: Grayscale and selected color Doppler ultrasound of the right upper quadrant of the abdomen/liver was performed, with spectral waveform analysis. LIVER: The liver is mildly increased/coarsened in echogenicity. There is no mass or intrahepatic biliary ductal dilatation. Right liver span is 14.4cm. Small volume fluid is seen along the lateral margin of the right hepatic lobe GALLBLADDER/COMMON BILE DUCT: The gallbladder is surgically absent. The common bile duct measures 2.9 mm. There is no pericholecystic fluid. Sonographic Huynh sign is negative. RIGHT KIDNEY: The right kidney is normal in echogenicity with no focal mass, cyst, calcification, or hydronephrosis. The right kidney measures 9.6 x 4.1 x3.6 cm. PANCREAS: The pancreatic neck is partially visualized and is grossly unremarkable; the pancreas is mostly obscured by shadowing. VESSELS: Peak velocity (cm/sec; direction of flow is appropriateunless otherwise noted): Main portal vein: Patent Left portal vein: Patent Right portal vein: PatentMiddle hepatic vein: Patent Left hepatic vein: Patent Right hepatic vein: Patent Hepatic artery: 147Splenic vein: Not evaluated Splenic artery: Not evaluated Aorta: Patent and normal caliber. IVC: Patent IMPRESSION: 1. Normal Doppler ultrasound of the liver. 2. Coarsened/increased liver echogenicity,suggestive of hepatocellular disease and/or mild hepatic steatosis. No focal liver lesion or biliaryductal dilatation. 3. Small volume fluid is seen lateral to the right hepatic lobe. A drain is within this fluid on the CT performed earlier today. 4. [facility]. [facility] Hern[facility] MD [address] : 1945 Age: 76 Sex: F [place] [address] Loc: P.0213 1 Exam Date: 04/01/2022 Status: DIS IN PH: FAX: PAGE1 Signed Report (CONTINUED) Patient Name: JESUS JACOBS Unit No: [id number] EXAMS: CPT CODE: [id number] DUP ABD/PEL/SC COMP 61618 (Continued) 5. Limited visualization of the pancreas due to shadowing from bowel gas. at 1313 Reported and signed by: Marcell Felton M.D. CC: Hernán Ford MD; Ephraim Pearce MD Technologist: WICHO REYES RDMS (AB) Probe: Trscr Dt/Tm: 04/01/2022 (1313) by:[email or web address] Printed Date/Time: 04/17/2022 (1228) Name: JESUS JACOBS [facility] Phys: Hernán Ramos MD [address] DOB: 1945 Age: 76 Sex: F [place] [address] Loc: P.0213 1 Exam Date: 04/01/2022 Status: DIS IN PH: FAX: PAGE 2 Signed Report- DUP ABD/PEL/SC [id number] 13:13:00 [facility] 1945 Sex: FPatient Name: JESUS JACOBS Unit No: [id number] EXAMS: CPT CODE: [id number] DUP ABD/PEL/SC COMP 95533 EXAM: Right upper quadrant ultrasound with Doppler Dictation location: A1 INDICATION: Acute AST greater than ALT transaminitis COMPARISON: CT abdomen performed earlier the same day DISCUSSION: Grayscaleand selected color Doppler ultrasound of the right upper quadrant of the abdomen/liver was performed, with spectral waveform analysis. LIVER: The liver is mildly increased/coarsened in echogenicity. There is no mass or intrahepatic biliary ductal dilatation. Right liver span is 14.4cm. Small volume fluid is seen along the lateral margin of the right hepatic lobe GALLBLADDER/COMMON BILE DUCT: The gallbladder is surgically absent. The common bile duct measures 2.9 mm. There is no pericholecystic fluid. Sonographic Huynh sign is negative. RIGHT KIDNEY: The right kidney is normal in echogenicity with no focal mass, cyst, calcification, or hydronephrosis. The right kidney measures 9.6 x 4.1 x 3.6 cm. PANCREAS: The pancreatic neck is partially visualized and is grossly unremarkable; the pancreas ismostly obscured by shadowing. VESSELS: Peak velocity (cm/sec; direction of flow is appropriate unless otherwise noted): Main portal vein: Patent Left portal vein: Patent Right portal vein: Patent Middle hepatic vein: Patent Left hepatic vein: Patent Right hepatic vein: Patent Hepatic artery: 147 Splenic vein: Not evaluated Splenic artery: Not evaluated Aorta: Patent and normal caliber. IVC: Patent IMPRESSION: 1. Normal Doppler ultrasound of the liver. 2. Coarsened/increased liver echogenicity, suggestive of hepatocellular disease and/or mild hepatic steatosis. No focal liver lesion or biliary ductal dilatation. 3. Small volume fluid is seen lateral to the right hepatic lobe. A drain is within thisfluid on the CT performed earlier today. 4. Prior cholecystectomy. Name: JESUS JACOBS [facility] Phys: Hernán Ramos MD [address] : 1945 Age: 76 Sex: F [place], [place] [id number] No: [id number] Loc: P.0213 1 Exam Date: 04/01/2022 Status: ADM IN PH: FAX: PAGE 1 Signed Report (CONTINUED) Patient Name: JESUS JACOBS Unit No: [id number] EXAMS: CPT CODE: [id number] DUP ABD/PEL/SC COMP 56024 (Continued) 5. Limited visualization of the pancreas due to shadowing from bowel gas. at 1313 Reported and signed by:Marcell Felton M.D. CC: Hernán Ford MD; Ephraim Pearce MD Technologist: WICHO REYES RDMS (AB) Probe: Trscr Dt/Tm: 04/01/2022 (1313) by:[email or web address] Printed Date/Time: 04/01/2022 (1316) Name: [facility] Phys: Hernán Ramos MD [address] : 1945 Age: 76 Sex: [place] [address] Loc: P.0213 1 Exam Date: 04/01/2022 Status: ADM IN PH: FAX: PAGE 2 Signed Report- US ABDOMEN [id number] 13:13:00 [facility] 1945 Sex: FPatient Name: JESUS JACOBS Unit No: [id number] EXAMS: CPT CODE: [id number] US ABDOMEN LTD [id number]: Right upper quadrant ultrasound with Doppler Dictation location: A1 INDICATION: Acute AST greater than ALT transaminitis COMPARISON: CT abdomen performed earlier the same day DISCUSSION: Grayscale and selected color Doppler ultrasound of the right upper quadrant of the abdomen/liver was performed, with spectral waveform analysis. LIVER: The liver is mildly increased/coarsened in echogenicity. There is no mass or intrahepatic biliary ductal dilatation. Right liver span is 14.4cm. Small volume fluid is seen along the lateral margin of the right hepatic lobe GALLBLADDER/COMMON BILE DUCT: The gallbladder is surgically absent. The common bile duct measures 2.9 mm. There is no pericholecystic fluid. Sonographic Huynh sign is negative. RIGHT KIDNEY: The right kidney is normal in echogenicity with no focal mass, cyst, calcification, or hydronephrosis. The right kidney measures 9.6 x 4.1 x 3.6 cm. PANCREAS: The pancreatic neck is partially visualized and is grossly unremarkable; the pancreas is mostly obscured by shadowing. VESSELS: Peak velocity (cm/sec; direction of flow is appropriate unlessotherwise noted): Main portal vein: Patent Left portal vein: Patent Right portal vein: Patent Middlehepatic vein: Patent Left hepatic vein: Patent Right hepatic vein: Patent Hepatic artery: 147 Splenic vein: Not evaluated Splenic artery: Not evaluated Aorta: Patent and normal caliber. IVC: Patent IMPRESSION: 1. Normal Doppler ultrasound of the liver. 2. Coarsened/increased liver echogenicity, suggestive of hepatocellular disease and/or mild hepatic steatosis. No focal liver lesion or biliary ductal dilatation. 3. Small volume fluid is seen lateral to the right hepatic lobe. A drain is within this fluid on the CT performed earlier today. 4. Prior cholecystectomy. Name: JESUS JACOBS [facility] Phys: Hernán Ramos MD [address] : 1945 Age: 76 Sex: [place] [address] Loc: P.0213 1 Exam Date: 04/01/2022 Status: DIS IN PH: FAX: PAGE 1 Signed Report (CONTINUED) Patient Name: JESUS JACOBS Unit No: [id number] EXAMS: CPT CODE: [id number] ABDOMEN [facility] 18754 (Continued) 5. Limited visualization of the pancreas due to shadowing from bowel gas. at 1313 Reported and signed by: Marcell Felton M.D. CC: Hernán Ford MD; Ephraim Pearce MD Technologist: WICHO REYES RDMS (AB) Probe: Trscr Dt/Tm: 04/01/2022 (1313) by:[email or web address] Printed Date/Time: 04/17/2022 (2121) Name: JESUS JACOBS [facility] Phys: Hernán Ramos MD [address] : [birth year] Age: 76 Sex: F [place] [id number] Loc: P.0213 1 Exam Date: 04/01/2022 Status: DIS IN PH: FAX: PAGE 2 Signed Report- US ABDOMEN LTD 2022-04-01 13:13:00 [facility] 1945 Sex: FPatient Name: JESUS JACOBS Unit No: [id number] EXAMS: CPT CODE: [id number] US ABDOMEN LTD 53411 EXAM: Right upper quadrant ultrasound with Doppler Dictation location: A1 INDICATION: Acute AST greater than ALT transaminitis COMPARISON: CT abdomen performed earlier the same day DISCUSSION: Grayscale and selected color Doppler ultrasound of the right upper quadrant of the abdomen/liver was performed, with spectral waveform analysis. LIVER: The liver is mildly increased/coarsened in echogenicity. There is no mass or intrahepatic biliary ductal dilatation. Right liver span is 14.4cm. Small volume fluid is seen along the lateral margin of the right hepatic lobe GALLBLADDER/COMMON BILE DUCT: The gallbladder is surgically absent. The common bile duct measures 2.9 mm. There is no pericholecystic fluid. Sonographic Huynh sign is negative. RIGHT KIDNEY: The right kidney is normal in echogenicity with no focalmass, cyst, calcification, or hydronephrosis. The right kidney measures 9.6 x 4.1 x 3.6 cm. PANCREAS: The pancreatic neck is partially visualized and is grossly unremarkable; the pancreas is mostly obsc ured by shadowing. VESSELS: Peak velocity (cm/sec; direction of flow is appropriate unless otherwisenoted): Main portal vein: Patent Left portal vein: Patent Right portal vein: Patent Middle hepatic vein: Patent Left hepatic vein: Patent Right hepatic vein: Patent Hepatic artery: 147 Splenic vein: Not evaluated Splenic artery: Not evaluated Aorta: Patent and normal caliber. IVC: Patent IMPRESSION: 1. Normal Doppler ultrasound of the liver. 2. Coarsened/increased liver echogenicity, suggestive of hepatocellular disease and/or mild hepatic steatosis. No focal liver lesion or biliary ductal dilatatio n. 3. Small volume fluid is seen lateral to the right hepatic lobe. A drain is within this fluid on the CT performed earlier today. 4. Prior cholecystectomy. Name: JACOBS,ROSA [facility] Phys: Hernán Ramos MD [address] : 1945 Age: 76 Sex: [place] [address] Acct No: BP [id number] Loc: P.0213 1 Exam Date: 04/01/2022 Status: ADM IN PH: FAX: PAGE 1 Signed Report (CONTINUED) Patient Name: JESUS JACOBS Unit No: [id number] EXAMS: CPT CODE: [id number] ABDOMEN LTD 69740 (Continued) 5. Limited visualization of the pancreas due to shadowing from bowel gas. at 1313 Reported and signed by: Marcell Felton M.D. CC: Hernán Ford MD; Ephraim Pearce MD Technologist: WICHO REYES RDMS (AB) Probe: Trscr Dt/Tm: 04/01/2022 (1313) by:[email or web address] Printed Date/Time: 04/01/2022 (1316) Name: JESUS JACOBS [facility] Phys: Hernán Ramos MD [address] : 1945 Age: 76 Sex: F [place] [id number] No: [id number] Loc: P.0213 1 Exam Date: 04/01/2022 Status: ADM IN PH: FAX: PAGE 2 Signed Report- CT ABD PELVIS W/O [id number] 11:12:00 [facility] 1945 Sex: FPatient Name: JESUS JACOBS [facility] Unit No: [id number] EXAMS: CPT CODE: [id number] CT ABD PELVIS W/O CONT 86695 EXAM: Chest CT without contrast and CT abdomen and pelvis without contrast Dictation location: A1 INDICATION: Septic shock COMPARISON: CT chest and CT abdomen and pelvis on 03/28/2022 TECHNIQUE: Helical CT of the chest and CT abdomen and pelvis was performed without contrast. 5 mm axial and coronal and sagittal reformatted images were obtained. Unless otherwise specified, incidental findingsdo not require dedicated imaging follow-up. DISCUSSION: CT CHEST: Lungs and airways: A small right pleural effusion is noted. There is dependent partial consolidation in both lower lobes, most likely due to atelectasis and less likely pneumonia. No pneumothorax is seen. Heart and mediastinum: 2 right IJ central venous catheters are in place, with tip at the lower SVC. A pacemaker is in place. Coronary artery and mitral annular calcifications are noted. No cardiomegaly, pericardial effusion, or mediastinal mass is seen. There is a suspected small hiatal hernia. Lymph nodes: No lymphadenopathy. Bones/soft tissues: No fracture or evidence of bony neoplastic process. CT ABDOMEN AND PELVIS: Hepatobiliary: There is either small volume circumscribed perihepatic fluid lateral to the right hepatic lobe versus a small subcapsular fluid collection. A pigtail drainage catheter is within this fluid. No obvious focal liver lesion is seen No biliary ductal dilatation. Gallbladder: Surgically absent. Spleen: Unremarkable. Pancreas: Unremarkable. Kidneys: No urinary tract calculi, hydronephrosis, or gross evidence of solid renal mass. Adrenals: Unremarkable. Name: JESUS JACOBS [facility] Phys: Brian Glynn MD [address] : 1945 Age: 76 Sex: [place] [address] Loc: P.0213 1 Exam Date: 04/01/2022 Status: DIS IN PH: FAX: PAGE 1 Signed Report (CONTINUED) Patient Name: JESUS JACOBS Unit No: [id number] EXAMS: CPT CODE: [id number] CT ABD P JAGDEEP W/O CONT 29323 (Continued) Lymph nodes: No lymphadenopathy. Peritoneum/retroperitoneum: No intraabdominal free air or free fluid. Abdominal drains are in place. Vessels: Mild atherosclerotic calcification, without abdominal aortic aneurysm. Pelvic organs/bladder: Intraluminal air is seen within the upper vaginal canal. The uterus is surgically absent. No adnexal abnormalities are seen. A Tamayo catheter seen within the bladder. Bowel: The colon is mostly contracted. The appendix is not identified, but there is no secondary evidence of appendicitis. A few small nodular foci are seen within the mesentery/omentum anterior to the mid ascending colon, unchanged. There are small multifocal mesenteric calcifications. No bowel obstruction is seen. There has been previous partial small bowel resection and anastomosis. A right anterior abdominal enterostomy is noted. Bones/soft tissues: No fracture or bony mass lesion. There is a ventral wound at in the left upper quadrant, at the level of the umbilicus, and to the right of midline below the umbilicus. These involve the full thickness of the subcutaneous fat, and appear similar compared to the previous exam. IMPRESSION: 1. There are full-thicknesswounds of the left upper quadrant, ventral to the umbilicus, and to the right of midline below the umbilicus involving the full thickness of the subcutaneous fat, similar compared to the previous exam.Abdominal drains are in place. No intraperitoneal free fluid or free air is seen. 2. A pigtail catheter is seen within a circumscribed fluid collection lateral to the right hepatic lobe, possibly subcapsular. This fluid collection is not significantly changed compared to the previous exam. 3. Minimal partial consolidation of both lower lobes, probably due to atelectasis. There is a small right pleural effusion. These are not significantly changed. 4. The appendix is not identified. A few small nodular foci are identified in the fat anterior to the mid ascending colon. These are of indeterminate clinical significance but are unchanged. Follow-up is suggested. 5. Additional findings include coronaryartery mitral annular calcifications, a suspected small hiatal hernia, prior cholecystectomy and hysterectomy, and a Tamayo catheter within the bladder. One or more of the following dose reduction techniques were used: Automated exposure control, adjustment of the mA and/or kV according to patient size, and/or utilization of iterative reconstruction technique. [facility] [address] : 1945 Age: 76 Sex: F [place] [address] Loc: P.0213 1 Exam Date: 04/01/2022 Status: DIS IN PH: FAX: PAGE 2 Signed Report (CONTINUED) Patient Name: JESUS JACOBS Unit No: [id number] EXAMS: CPT CODE: [id number] CT ABD PELVIS W/O CONT 79310 (Continued) DLP: 668 mGy-cm CTDI: 9 mGy at 1112 Reported and signed by: Marcell Felton M.D. CC: Brian Valle MD; Hernán Ford MD; Ephraim Pearce MD Technologist: Jazmin Ramos CTDI: 9.16 DLP:668 Trscr Dt/Tm: 04/01/2022 (1112) by:[email or web address] Printed Date/Time: 04/17/2022 (1757) Name: JESUS JACOBS [facility] Phys: TONBrian Tabor MD [address] : 1945 Age: 76 Sex: F [place] [address] Loc: P.0213 1 Exam Date: 04/01/2022 Status: DIS IN PH: FAX: PAGE 3 Signed Report- CT CHEST W/O [id number] 11:12:00[facility] : 1945 Sex: FPatient Name: JESUS JACOBS Unit No: [id number] EXAMS: CPT CODE: [id number] CT CHEST W/O CONTRAST 73286 EXAM: Chest CT without contrast and CT abdomen and pelvis without contrast Dictation location: A1 INDICATION: Septic shock COMPARISON: CT chest and CT abdomen and pelvis on 03/28/2022 TECHNIQUE:Helical CT of the chest and CT abdomen and pelvis was performed without contrast. 5 mm axial and coronal and sagittal reformatted images were obtained. Unless otherwise specified, incidental findings do not require dedicated imaging follow-up. DISCUSSION: CT CHEST: Lungs and airways: A small right pleural effusion is noted. There is dependent partial consolidation in both lower lobes, most likely dueto atelectasis and less likely pneumonia. No pneumothorax is seen. Heart and mediastinum: 2 right IJ central venous catheters are in place, with tip at the lower SVC. A pacemaker is in place. Coronaryartery and mitral annular calcifications are noted. No cardiomegaly, pericardial effusion, or mediastinal mass is seen. There is a suspected small hiatal hernia. Lymph nodes: No lymphadenopathy. Bones/soft tissues: No fracture or evidence of bony neoplastic process. CT ABDOMEN AND PELVIS: Hepatobiliary: There is either small volume circumscribed perihepatic fluid lateral to the right hepatic lobe versus a small subcapsular fluid collection. A pigtail drainage catheter is within this fluid. No obvious focal liver lesion is seen No biliary ductal dilatation. Gallbladder: Surgically absent. Spleen: Unremarkable. Pancreas: Unremarkable. Kidneys: No urinary tract calculi, hydronephrosis, or gross evidence of solid renal mass. Adrenals: Unremarkable. Name: JESUS JACOBS [facility] Phys: Brian Glynn MD [address] : 1945 Age: 76 Sex: F [place] [id number] Loc: P.0213 1 Exam Date: 04/01/2022 Status: DIS IN PH: FAX: PAGE 1 Signed Report (CONTINUED) Patient Name: JESUS JACOBS Unit No: [id number] EXAMS: CPT CODE: [id number] CT CHEST W/O CONTRAST 60968 (Continued) Lymph nodes: No lymphadenopathy. Peritoneum/retroperitoneum: No intraabdominal free air or free fluid. Abdominal drains are in place. Vessels: Mild atherosclerotic calcification, without abdominal aortic aneurysm. Pelvic organs/bladder: Intraluminal air is seen withinthe upper vaginal canal. The uterus is surgically absent. No adnexal abnormalities are seen. A Foleycatheter seen within the bladder. Bowel: The colon is mostly contracted. The appendix is not identified, but there is no secondary evidence of appendicitis. A few small nodular foci are seen within the mesentery/omentum anterior to the mid ascending colon, unchanged. There are small multifocal mesenteric calcifications. No bowel obstruction is seen. There has been previous partial small bowel resection and anastomosis. A right anterior abdominal enterostomy is noted. Bones/soft tissues: No fracture or bony mass lesion. There is a ventral wound at in the left upper quadrant, at the level of the umbilicus, and to the right of midline below the umbilicus. These involve the full thickness of the subcutaneous fat, and appear similar compared to the previous exam. IMPRESSION: 1. There are full-thickness wounds of the left upper quadrant, ventral to the umbilicus, and to the right of midline below the umbilicus involving the full thickness of the subcutaneous fat, similar compared to the previous exam. Abdominal drains are in place. No intraperitoneal free fluid or free air is seen. 2. A pigtail catheter is seen within a circumscribed fluid collection lateral to the right hepatic lobe, possibly subcapsular. This fluid collection is not significantly changed compared to the previous exam. 3. Minimalpartial consolidation of both lower lobes, probably due to atelectasis. There is a small right pleural effusion. These are not significantly changed. 4. The appendix is not identified. A few small nodular foci are identified in the fat anterior to the mid ascending colon. These are of indeterminate clinical significance but are unchanged. Follow-up is suggested. 5. Additional findings include coronary artery mitral annular calcifications, a suspected small hiatal hernia, prior cholecystectomy and hysterectomy, and a Tamayo catheter within the bladder. One or more of the following dose reduction techniques were used: Automated exposure control, adjustment of the mA and/or kV according to patient size, and/or utilization of iterative reconstruction technique. Name: [facility] Phys: Brian Glynn MD [address] DOB: 1945 Age: 76 Sex: F [place] [id number] Loc: P.0213 1 Exam Date: 04/01/2022 Status: DIS IN PH: FAX: PAGE 2 Signed Report (CONTINUED) Patient Name: JESUS JACOBS Unit No: [id number] EXAMS: CPT CODE: [id number] CT CHEST W/O CONTRAST 48423 (Continued) DLP: 668 mGy-cm CTDI: 9 mGy at 1112 Reported and signed by: Marcell Felton M.D. CC: Brian Valle MD; Hernán Ford MD; Ephraim Pearce MD Technologist: Jazmin Ramos CTDI: DLP: Trscr Dt/Tm: 04/01/2022 (1112) by:[email or web address] Printed Date/Time: 04/17/2022 (4181) Name: [facility] Phys: Brian Glynn MD [address] DOB: 1945 Age: 76 Sex: [place] [address] Loc: P.0213 1 Exam Date: 04/01/2022 Status: DIS IN PH: FAX: PAGE 3 Signed Report- CT ABD PELVIS W/O [id number] 11:12:00[facility] 1945 Sex: FPatient Name: JESUS JACOBS Unit No: [id number] EXAMS: CPT CODE: [id number] CT ABD PELVIS W/O CONT 64635DZJC: Chest CT without contrast and CT abdomen and pelvis without contrast Dictation location: A1 INDICATION: Septic shock COMPARISON: CT chest and CT abdomen and pelvis on 03/28/2022 TECHNIQUE: Helical CT of the chest and CT abdomen and pelvis was performed without contrast. 5 mm axial and coronal and sagittal reformatted images were obtained. Unless otherwise specified, incidental findings do not require dedicated imaging follow-up. DISCUSSION: CT CHEST: Lungs and airways: A small right pleural effusion is noted. There is dependent partial consolidation in both lower lobes, most likely due to atel ectasis and less likely pneumonia. No pneumothorax is seen. Heart and mediastinum: 2 right IJ central venous catheters are in place, with tip at the lower SVC. A pacemaker is in place. Coronary artery and mitral annular calcifications are noted. No cardiomegaly, pericardial effusion, or mediastinal mass is seen. There is a suspected small hiatal hernia. Lymph nodes: No lymphadenopathy. Bones/soft tissues: No fracture or evidence of bony neoplastic process. CT ABDOMEN AND PELVIS: Hepatobiliary: Thereis either small volume circumscribed perihepatic fluid lateral to the right hepatic lobe versus a small subcapsular fluid collection. A pigtail drainage catheter is within this fluid. No obvious focal liver lesion is seen No biliary ductal dilatation. Gallbladder: Surgically absent. Spleen: Unremarkable. Pancreas: Unremarkable. Kidneys: No urinary tract calculi, hydronephrosis, or gross evidence of solid renal mass. Adrenals: Unremarkable. Name: JESUS JACOBS [facility] Phys: Brian Glynn MD [address] : 1945 Age: 76 Sex: [place] [address] : P.0213 1 Exam Date: 04/01/2022 Status: ADM IN PH: FAX: PAGE 1 Signed Report (CONTINUED) PatientName: JESUS JACOBS Unit No: [id number] EXAMS: CPT CODE: [id number] CT ABD PELVIS W/O CONT 15822 (Continued) Lymph nodes: No lymphadenopathy. Peritoneum/retroperitoneum: No intraabdominal free air or free fluid. Abdominal drains are in place. Vessels: Mild atherosclerotic calcification, without abdominal aortic aneurysm. Pelvic organs/bladder: Intraluminal air is seen within the upper vaginal canal. The uterus is surgically absent. No adnexal abnormalities are seen. A Tamayo catheter seen within the bladder. Bowel: The colon is mostly contracted. The appendix is not identified, but there is no secondary evidence of appendicitis. A few small nodular foci are seen within the mesentery/omentum anteriorto the mid ascending colon, unchanged. There are small multifocal mesenteric calcifications. No bowel obstruction is seen. There has been previous partial small bowel resection and anastomosis. A rightanterior abdominal enterostomy is noted. Bones/soft tissues: No fracture or bony mass lesion. There is a ventral wound at in the left upper quadrant, at the level of the umbilicus, and to the right of midline below the umbilicus. These involve the full thickness of the subcutaneous fat, and appear similar compared to the previous exam. IMPRESSION: 1. There are full-thickness wounds of the left upperquadrant, ventral to the umbilicus, and to the right of midline below the umbilicus involving the full thickness of the subcutaneous fat, similar compared to the previous exam. Abdominal drains are in place. No intraperitoneal free fluid or free air is seen. 2. A pigtail catheter is seen within a circumscribed fluid collection lateral to the right hepatic lobe, possibly subcapsular. This fluid collection is not significantly changed compared to the previous exam. 3. Minimal partial consolidation of both lower lobes, probably due to atelectasis. There is a small right pleural effusion. These are notsignificantly changed. 4. The appendix is not identified. A few small nodular foci are identified inthe fat anterior to the mid ascending colon. These are of indeterminate clinical significance but are unchanged. Follow-up is suggested. 5. Additional findings include coronary artery mitral annular victor hugo cifications, a suspected small hiatal hernia, prior cholecystectomy and hysterectomy, and a Tamayo catheter within the bladder. One or more of the following dose reduction techniques were used: Automated exposure control, adjustment of the mA and/or kV according to patient size, and/or utilization of iterative reconstruction technique. Name: [facility] Phys: Brian Glynn MD [address] DOB: 1945 Age: 76 Sex: F [place] [address] Loc: P.0213 1 Exam Date: 04/01/2022 Status: ADM IN PH: FAX: PAGE 2 Signed Report (CONTINUED) Patient Name: JESUS DANIELS Unit No: [id number] EXAMS: CPT CODE: [id number] CT ABD PELVIS W/O CONT 00529 (Continued)DLP: 668 mGy-cm CTDI: 9 mGy at 1112 Reported and signed by: Marcell Felton M.D. CC: Brian Valle MD; Hernán Ford MD; Ephraim Pearce MD Technologist: Jazmin Ramos CTDI: 9.16 DLP: 668 Trscr Dt/Tm: 04/01/2022 (111) by:[email or web address] Printed Date/Time: 04/01/2022 (111) Name: [facility] Phys: Brian lGynn MD [address] DOB: 1945 Age: 76 Sex: F [place] [address] Loc: P.0213 1 Exam Date: 04/01/2022 Status: ADM IN PH: FAX: PAGE 3 Signed Report- CT CHEST W/O [id number] 11:12:00 [facility] 1945 Sex: FPatient Name: JESUS JACOBS Unit No: [id number] EXAMS: CPT CODE: [id number] CT CHEST W/O CONTRAST 38199 EXAM: Chest CT without contrast and CT abdomen and pelvis without contrast Dictation location: A1 INDICATION: Septic shock COMPARISON: CT chest and CT abdomen and pelvis on 03/28/2022 TECHNIQUE: HelicalCT of the chest and CT abdomen and pelvis was performed without contrast. 5 mm axial and coronal andsagittal reformatted images were obtained. Unless otherwise specified, incidental findings do not require dedicated imaging follow-up. DISCUSSION: CT CHEST: Lungs and airways: A small right pleural effusion is noted. There is dependent partial consolidation in both lower lobes, most likely due to ate lectasis and less likely pneumonia. No pneumothorax is seen. Heart and mediastinum: 2 right IJ central venous catheters are in place, with tip at the lower SVC. A pacemaker is in place. Coronary arteryand mitral annular calcifications are noted. No cardiomegaly, pericardial effusion, or mediastinal mass is seen. There is a suspected small hiatal hernia. Lymph nodes: No lymphadenopathy. Bones/soft tissues: No fracture or evidence of bony neoplastic process. CT ABDOMEN AND PELVIS: Hepatobiliary: There is either small volume circumscribed perihepatic fluid lateral to the right hepatic lobe versus a small subcapsular fluid collection. A pigtail drainage catheter is within this fluid. No obvious focalliver lesion is seen No biliary ductal dilatation. Gallbladder: Surgically absent. Spleen: Unremarkable. Pancreas: Unremarkable. Kidneys: No urinary tract calculi, hydronephrosis, or gross evidence of solid renal mass. Adrenals: Unremarkable. Name: JESUS JACOBS [facility] Phys: Brian Glynn MD [address] : 1945 Age: 76 Sex: [place] [address] Loc: P.0213 1 Exam Date: 04/01/2022 Status: ADM IN PH: FAX: PAGE 1 Signed Report (CONTINUED) Patient Name: JESUS JACOBS Unit No: [id number] EXAMS: CPT CODE: [id number] CT CHEST W/O CONTRAST 74472 (Continued) Lymph nodes: No lymphadenopathy. Peritoneum/retroperitoneum: No intraabdominal free air or free fluid. Abdominal drains are in place. Vessels: Mild atherosclerotic calcification, without abdominal aortic aneurysm. Pelvic organs/bladder: Intraluminal air is seen within the upper vaginal canal. The uterus is surgically absent. No adnexal abnormalities are seen. A Tamayo catheter seen within the bladder. Bowel: The colon is mostly contracted. The appendix is not identified, but there is no secondary evidence of appendicitis. A few small nodular foci are seen within the mesentery/omentum anteriorto the mid ascending colon, unchanged. There are small multifocal mesenteric calcifications. No bowel obstruction is seen. There has been previous partial small bowel resection and anastomosis. A right anterior abdominal enterostomy is noted. Bones/soft tissues: No fracture or bony mass lesion. Thereis a ventral wound at in the left upper quadrant, at the level of the umbilicus, and to the right ofmidline below the umbilicus. These involve the full thickness of the subcutaneous fat, and appear similar compared to the previous exam. IMPRESSION: 1. There are full- thickness wounds of the left upperquadrant, ventral to the umbilicus, and to the right of midline below the umbilicus involving the full thickness of the subcutaneous fat, similar compared to the previous exam. Abdominal drains are in place. No intraperitoneal free fluid or free air is seen. 2. A pigtail catheter is seen within a circumscribed fluid collection lateral to the right hepatic lobe, possibly subcapsular. This fluid collection is not significantly changed compared to the previous exam. 3. Minimal partial consolidation of both lower lobes, probably due to atelectasis. There is a small right pleural effusion. These are not significantly changed. 4. The appendix is not identified. A few small nodular foci are identified in the fat anterior to the mid ascending colon. These are of indeterminate clinical significance but are unchanged. Follow-up is suggested. 5. Additional findings include coronary artery mitral annular calcifications, a suspected small hiatal hernia, prior cholecystectomy and hysterectomy, and a Tamayo catheter within the bladder. One or more of the following dose reduction techniques were used: Automated exposure control, adjustment of the mA and/or kV according to patient size, and/or utilization of iterative reconstruction technique. Name: [facility] Phys: Brian Glynn MD [address] DOB: 1945 Age: 76 Sex: F [place] [address] Loc: P.0213 1 Exam Date: 04/01/2022 Status: ADM IN PH: FAX: PAGE 2 Signed Report (CONTINUED) Patient Name: JESUS JACOBS Unit No: [id number] EXAMS: CPT CODE: [id number] CT CHEST W/O CONTRAST 21129 (Continued) DLP: 668 mGy-cm CTDI: 9 mGy cm7297 Reported and signed by: Marcell Felton M.D. CC: Brian Valle MD; Hernán Ford MD; Ephraim Pearce MD Technologist: Jazmin Ramos CTDI: DLP: Trscr Dt/Tm: 04/01/2022 (1112) by:[email or web address] Printed Date/Time: 04/01/2022 (1116) Name: [facility] Phys: Brian Glynn MD [address] TAN: 1945 Age: 76 Sex: F [place] [address] Loc:P.0213 1 Exam Date: 04/01/2022 Status: ADM IN PH: FAX: PAGE 3 Signed Report- XR CHEST 1 V 2022-04-01 08:20:00 [facility] 1945 Sex: FPatient Name: JESUS JACOBS Unit No: [id number] EXAMS: CPT CODE: [id number] XR CHEST 1 V 35962 EXAM: Portable chest x-ray Dictation location: A1 COMPARISON: Chest x- ray on 03/31/2022 INDICATION: RIGHT IJ CENTRAL LINE DISCUSSION: The right IJ central venous catheters are in place, both of which overlie the appropriate position over the upper cavoatrial junction. The visualized portion of the upper enteric tube overlies the appropriate position. Or right-sided pigtail chest tube is in place. No pneumothorax is seen. A small right pleural effusion is noted. A dual-lead pacemaker is in place. The cardiac silhouette is within normal limits. No acute bony abnormalities are identified. IMPRESSION: 1. There are now 2 right IJ central venous catheters, both of which overlie the appropriate position. No pneumothorax is seen. 2. A small right pleural effusion is unchanged. A right-sided pigtail chest tube is in place. at 0820 Reported and signed by: Marcell Felton M.D. CC: Hernán Ford MD; Ephraim Pearce MD Technologist: Jazmin Soto Time: DAP (Gy m2): Air Kerma (mGy): Trscr Dt/Tm: 04/01/2022 (0820) by:[email or web address] PrintedDate/Time: 04/17/2022 (1228) Name: JACOBS,JESUS [facility] Phys: Hernán Ramos MD [address] : 1945 Age: 76 Sex: [place] [id number] Loc: P.0213 1 Exam Date: 04/01/2022 Status: DIS IN PH: FAX: PAGE 1 Signed Report- XR CHEST 1 [id number] 08:20:00 [facility] 1945 Sex: FPatient Name: JESUS JACOBS Unit No: [id number] EXAMS: CPT CODE: [id number] XR CHEST 1 V 30757 EXAM: Portable chest x-ray Dictation location: A1 COMPARISON: Chest x-ray on 03/31/2022 INDICATION: RIGHT IJ CENTRAL LINE DISCUSSION: The right IJ central venous catheters are in place, both of which overlie theappropriate position over the upper cavoatrial junction. The visualized portion of the upper enteric tube overlies the appropriate position. Or right-sided pigtail chest tube is in place. No pneumothorax is seen. A small right pleural effusion is noted. A dual- lead pacemaker is in place. The cardiac silhouette is within normal limits. No acute bony abnormalities are identified. IMPRESSION: 1. There are now 2 right IJ central venous catheters, both of which overlie the appropriate position. No pneumothorax is seen. 2. A small right pleural effusion is unchanged. A right- sided pigtail chest tube is in place. at 0820 Reported and signed by: Marcell Felton M.D. CC: Hernán Ford MD; Ephraim Pearce MD Technologist: Jazmin Soto Time: DAP (Gy m2): Air Kerma (mGy): Trscr Dt/Tm: 04/01/2022 (819) by:[email or web address] Printed Date/Time: 04/01/2022 (4656) Name: JESUS JACOBS [facility] Phys: Hernán Ramos MD [address] : 1945 Age: 76 Sex: [place] [address] Loc: P.0213 1 Exam Date: 04/01/2022 Status: ADM IN PH: FAX: PAGE 1 Signed ReportB-TYPE NATRIURETIC [id number] 07:44:00 Test Item Value Reference Range Interpretation Comments B-TYPE NATRIURETIC PEPTIDE (test 59 pg/mL <100 N code = BNP) COMPREHENSIVE METABOLIC [id number] 06:35:00 Test Item Value Reference Range Interpretation Comments SODIUM (test code = 161 mmol/L 136-145 H Critical Value reported NA) toFirst Name:ME WANG Last Name:ROYSDu RESULTS READ BACK AND VERIFIEDby JonSHIPROCK-NORTHERN NAVA[facility]ENTERB, on 04/01/22, @ 0635.Please not e: New Reference Range Jun 2020 POTASSIUM (test code 3.4 mmol/L 3.5-5.1 L = K) CHLORIDE (test code 119 mmol/L 98-107 H Please n ote: New = CL) Reference Range Jun 2020 CARBON DIOXIDE (test 20 mmol/L 20-31 N Please note: New code = CO2) Reference Range Jun 2020 GLUCOSE (test code = 222 mg/dL 74-106 H Please note: New GLU) Reference Range Jun 2020 BLOOD UREA NITROGEN 125 mg/dL 9-23 H Please n ote: New (test code = BUN) Reference Range Jun 2020 GLOMERULAR 18 mL/min >60 L The Glomerular FILTRATION RATE Filtration R ate is a (test code = GFR) calculated parameterbased on serum Creatinine, pat ient age and sex. GFR va luesless than 60 mL/min/ 1.73 square meters a re indicative ofCh ronic Kidney Disease. Values less than 15 mL/min/1.73squa re meters indicate Kidney failure. The calculation for GFR is based on the CK D-EPI (2020) calculat ion. This formulais race indifferent and is the recommended for rodolfo for GFRby the [facility] on for Adults.The GFR will not calculate if th e sex is unknown or if thepatient's ag e is <18 years. CREATININE (test 2.60 mg/dL 0.55-1.02 H Please note : New code = CREAT) Reference Rang e Jun 2020 TOTAL PROTEIN (test 6.9 g/dL 5.7-8.2 N Please n ote: New code = PROT) Reference Range Jun 2020 ALBUMIN (test code = 4.0 g/dL 3.2-4.8 N Please note: New ALB) Reference Range Jun 2020 CALCIUM (test code = 7.0 mg/dL 8.7-10.4 L Please note: New CA) Reference Range Jun 2020 BILIRUBIN TOTAL 0.5 mg/dL 0.3-1.2 N Please note: New (test code = BILT) Reference Range Jun 2020 SGOT/AST (test code > 6000 U/L <34 H Please n ote: New = AST) Reference Range Jun 2020 SGPT/ALT (test code 2541 U/L 10-49 H Please n ote: New = ALT) Reference Range Jun 2020 ALKALINE PHOSPHATASE 159 U/L 46-116 H Please note: New (test code = ALKP) Reference Range Jun 2020 [id number] 06:35:00 Test Item Value Reference Range Interpretation Comments PHOSPHOROUS (test code 7.4 mg/dL 2.4-5.1 H Pleas e note: New = PHOS) Reference Range Jun 2020 [id number] 06:35:00 Test Item Value Reference Range Interpretation Comments MAGNESIUM (test code = 2.3 mg/dL 1.6-2.6 N Pleas e note: New MAG) Reference Range Jun 2020 [id number] 06:35:00 Test Item Value Reference Range Interpretation Comments PREALBUMIN (test code 11.9 mg/dL 10-40 N Please note: New = PREALB) Reference Range Jun 2020 LACTIC [id number] 06:24:00 Test Item Value Reference Range Interpretation Comments LACTIC ACID (test 5.80 mmol/L 0.5-2.0 HH Critical V alue reported code = LACT) toFirst Name: DEGROOT Last Name:LEENA AGUIAR READ BACK AND QIANA [email or web address], on 04/01/22, @ 062 4. PROTHROMBIN [id number] 06:24:00 Test Item Value Reference Range Interpretation Comments PROTHROMBIN TIME 18.7 SECONDS 10.3-12.9 H PATIENT (test code = PTP) INTERNATIONAL 1.60 INR UNIT 0.9-1.11 H The INR is us eful only NORMAL RATIO (test for monit oring code = INR) anticoagulant therapy.It may be unreliable in t he initial phase o f antigoagulation and in unstable patien ts. Indication for Anticoagulation Recommended INR 1. Prevention of v enous thomboembolism 2.0-3.0in high- risk patients; treat ment of venousthrombosi s and pulmonary embol ism aftera course o f heparin; preven tion of systemicembolis m in a variety of cond itions, including atria l fibrillation an d prothetic tissu e heart valves, 2. Pros thetic mechanical hear t valves; 2.5-3.5recurren t systemic emboli sm. THROMBOPLASTIN TIME [id number] 06:24:00 Test Item Value Reference Range Interpretation Comments THROMBOPLASTIN TIME 35.6 SECONDS 23.8-34.8 H INTERPRE TATIVE PARTIAL (test code = DATA:Th erapeutic PTT) range: Unfractionated heparin:55 - 80 seconds Argatroban:1.5 to 3 times the basel ine PTT CBC W/AUTO [id number] 06:22:00 Test Item Value Reference Range Interpretation Comments WHITE BLOOD CELL (test code = 34.3 x10 3/uL 4.8-10.8 H WBC) RED BLOOD CELL (test code = 2.60 x10 6/uL 4.20-5.40 L RBC) HEMOGLOBIN (test code = HGB) 7.9 g/dL 12.0-16.0 L HEMATOCRIT (test code = HCT) 24.6 % 37.0-47.0 L MEAN CELL VOLUME (test code = 94.6 fL 81.0-99.0 MCV) MEAN CELL HGB (test code = 30.4 pg 27-31 N MCH) MEAN CELL HGB CONCENTRATION 32.1 G/DL 33-36.5 L (test code = MCHC) RED CELL DISTRIBUTION WIDTH 22.3 % 12.9-16.9 H (test code = RDW) PLATELET COUNT (test code = 155 x10 3/uL 150-440 N PLT) MEAN PLATELET VOLUME (test 11.9 fL 8.9-12.4 N code = MPV) NEUTROPHIL % (test code = NT%) 86.3 % 42.2-75.2 H LYMPHOCYTE % (test code = LY%) 6.4 % 20.5-51.1 L MONOCYTE % (test code = MO%) 5.5 % 1.7-9.3 N EOSINOPHIL % (test code = EO%) 0.0 % 0.0-7.0 N BASOPHIL % (test code = BA%) 0.2 % 0-2.5 N NEUTROPHIL # (test code = NT#) 29.57 x10 3/uL 1.80-7.70 H LYMPHOCYTE # (test code = LY#) 2.19 x10 3/uL 1.00-4.80 N MONOCYTE # (test code = MO#) 1.87 x10 3/uL 0.00-0.80 H EOSINOPHIL # (test code = EO#) 0.00 x10 3/uL 0.00-0.45 N BASOPHIL # (test code = BA#) 0.08 x10 3/uL 0.0-0.20 N B-TYPE NATRIURETIC [id number] 22:26:00 Test Item Value Reference Range Interpretation Comments B-TYPE NATRIURETIC PEPTIDE (test 46 pg/mL <100 N code = BNP) LACTIC [id number] 22:19:00 Test Item Value Reference Range Interpretation Comments LACTIC ACID (test code = LACT) 1.40 mmol/L 0.5-2.0 N BASIC METABOLIC [id number] 21:17:00 Test Item Value Reference Range Interpretation Comments SODIUM (test code = 157 mmol/L 136-145 H Please n ote: New NA) Reference Range Jun 2020 POTASSIUM (test code 5.8 mmol/L 3.5-5.1 H = K) CHLORIDE (test code 127 mmol/L 98-107 H Please n ote: New = CL) Reference Range Jun 2020 CARBON DIOXIDE (test 12 mmol/L 20-31 L Please note: New code = CO2) Reference Range Jun 2020 GLUCOSE (test code = 123 mg/dL 74-106 H Please note: New GLU) Reference Range Jun 2020 BLOOD UREA NITROGEN 142 mg/dL 9-23 H Please n ote: New (test code = BUN) Reference Range Jun 2020 GLOMERULAR 17 mL/min >60 L The Glomerular FILTRATION RATE Filtration R ate is a (test code = GFR) calculated parameterbased on serum Creatinine, pat ient age and sex. GFR va luesless than 60 mL/min/ 1.73 square meters a re indicative ofCh ronic Kidney Disease. Values less than 15 mL/min/1.73squa re meters indicate Kidney failure. The calculation for GFR is based on the CK D-EPI (2020) calculat ion. This formulais race indifferent and is the recommended for rodolfo for GFRby the [facility] on for Adults.The GFR will not calculate if th e sex is unknown or if thepatient's ag e is <18 years. CREATININE (test 2.80 mg/dL 0.55-1.02 H Please note : New code = CREAT) Reference Rang e Jun 2020 CALCIUM (test code = 7.0 mg/dL 8.7-10.4 L Please note: New CA) Reference Range Jun 2020 CBC W/AUTO [id number] 21:00:00 Test Item Value Reference Range Interpretation Comments WHITE BLOOD CELL (test code = 27.8 x10 3/uL 4.8-10.8 H WBC) RED BLOOD CELL (test code = 3.15 x10 6/uL 4.20-5.40 L RBC) HEMOGLOBIN (test code = HGB) 9.3 g/dL 12.0-16.0 L HEMATOCRIT (test code = HCT) 31.3 % 37.0-47.0 L MEAN CELL VOLUME (test code = 99.4 fL 81.0-99.0 H MCV) MEAN CELL HGB (test code = 29.5 pg 27-31 N MCH) MEAN CELL HGB CONCENTRATION 29.7 G/DL 33-36.5 L (test code = MCHC) RED CELL DISTRIBUTION WIDTH 23.0 % 12.9-16.9 H (test code = RDW) PLATELET COUNT (test code = 329 x10 3/uL 150-440 N PLT) MEAN PLATELET VOLUME (test 11.4 fL 8.9-12.4 N code = MPV) NEUTROPHIL % (test code = NT%) 81.2 % 42.2-75.2 H LYMPHOCYTE % (test code = LY%) 6.1 % 20.5-51.1 L MONOCYTE % (test code = MO%) 9.0 % 1.7-9.3 N EOSINOPHIL % (test code = EO%) 0.0 % 0.0-7.0 N BASOPHIL % (test code = BA%) 0.3 % 0-2.5 N NEUTROPHIL # (test code = NT#) 22.60 x10 3/uL 1.80-7.70 H LYMPHOCYTE # (test code = LY#) 1.69 x10 3/uL 1.00-4.80 N MONOCYTE # (test code = MO#) 2.51 x10 3/uL 0.00-0.80 H EOSINOPHIL # (test code = EO#) 0.00 x10 3/uL 0.00-0.45 N BASOPHIL # (test code = BA#) 0.09 x10 3/uL 0.0-0.20 N - XR CHEST 1 [id number] 19:52:00 [facility] 1945 Sex: FPatient Name: JESUS JACOBS Unit No: [id number] EXAMS: CPT CODE: [id number] XR CHEST 1 V 03685 Location Code: H 31 CHEST AP HISTORY: Respiratory distress COMPARISON: Chest radiograph from 03/25/2022 FINDINGS: Slight elevation of the right hemidiaphragm is chronic. Improved aeration overall at right lung base. Mild right basilar atelectasis and small right pleural effusion may remain. Dual-lead pacemaker otherwise cardiomediastinal silhouette and pulmonary vasculature are normal. Right subclavian catheter tip is at mid SVC. NG tube can be followed to the stomach. Osseous structures are unremarkable. The right upper quadrant pigtail catheter is redemonstrated. Cholecystectomy clips are noted. IMPRESSION: Interval improved aeration at right lung base. Mild right basilar atelectasis and small right pleural effusion may remain. No new pulmonary findings. at 1952 Reported and signed by: KECIA BAHENA M.D. CC: Ephraim Pearce MD Technologist: Jessica Soto Time: DAP (Gy m2): Air Kerma (mGy): Trscr Dt/Tm: 03/31/2022 (1951) by:[email or web address] Printed Date/Time: 04/17/2022 (1232) Name: JESUS JACOBS [facility] Phys: Ephraim Early MD [address] : 1945 Age: 76Sex: [place] [address] Loc: PJonPSCLIEN Exam Date: 03/31/2022 Status: REG REF PH: FAX: PAGE 1 Signed Report- XR CHEST 1 [id number] 19:52:00 [facility] 1945 Sex: FPatient Name: JESUS JACOBS Unit No: [id number] EXAMS: CPT CODE: [id number] XR CHEST 1 V 20052 Location Code: H 31 CHEST AP HISTORY: Respiratory distress COMPARISON: Chest radiograph from 03/25/2022 FINDINGS: Slight elevation of the right hemidiaphragm is chronic. Improved aeration overall at right lung base. Mild right basilar atelectasis and small right pleural effusion may remain. Dual-lead pacemaker o therwise cardiomediastinal silhouette and pulmonary vasculature are normal. Right subclavian catheter tip is at mid SVC. NG tube can be followed to the stomach. Osseous structures are unremarkable. Theright upper quadrant pigtail catheter is redemonstrated. Cholecystectomy clips are noted. IMPRESSION: Interval improved aeration at right lung base. Mild right basilar atelectasis and small right pleural effusion may remain. No new pulmonary findings. at 195 Reported and signed by: KECIA BAHENA M.D. CC: Ephraim Luu MD Technologist: Jessica Soto Time: DAP (Gy m2): Air Kerma (mGy): Trscr Dt/Tm: 03/31/2022 (1951) by:[email or web address] Printed Date/Time: 03/31/2022 (1955) Name: JESUS JACOBS [facility] Phys: Ephraim Early MD [address] : 1945 Age: 76 Sex: F [place], [place] [address]Pdwq No: [id number] Loc: PJonPSCLIEN Exam Date: 03/31/2022 Status: REG REF PH: FAX: PAGE 1 Signed Rep ort- XR ABDOMEN [id number] 08:56:00 [facility] : 1945 Sex: FPatient Name: JESUS JACOBS Unit No: [id number] EXAMS: CPT CODE: [id number] XR ABDOMEN 1V 25614 Abdomen, single view LOCATION: A1 HISTORY: Nasogastric tube placement. A single view of the abdomen at 7:42 AM was compared to a prior exam from March 27, 2022. FINDINGS: The nasogastric tube is in a decompressed stomach. No other acute findings are seen. IMPRESSION: Nasogastric tube in a decompressed stomach. at 0856 Reported and signed by: Ryder Perez Jr, MD CC: Ephraim Pearce MD Technologist: Laisha Mccartney (R) Fluoro Time: DAP (Gy m2): Air Kerma (mGy): Trscr Dt/Tm: 03/31/2022 (0856) by:[email or web address] NURSERY FOR BLIND BABIES Printed Date/Time: 04/17/2022 (1233) Name: JESUS JACOBS [facility] Phys: Ephraim Early MD [address] : 1945 Age: 76 Sex: [place] [address] Loc: PENRIQUE Exam Date: 03/31/2022 Status: REG REF PH: FAX: PAGE 1 Signed Report- XR ABDOMEN [id number] 08:56:00 [facility] : 1945 Sex: FPatient Name: JESUS JACOBS Unit No: [id number] EXAMS: CPT CODE: [id number] XR ABDOMEN 1V 45537 Abdomen,single view LOCATION: A1 HISTORY: Nasogastric tube placement. A single view of the abdomen at 7:42 AM was compared to a prior exam from March 27, 2022. FINDINGS: The nasogastric tube is in a decompressed stomach. No other acute findings are seen. IMPRESSION: Nasogastric tube in a decompressed stomach. at 0856 Reported and signed by: Ryder Perez Jr, MD CC: Ephraim Pearce MD Technologist: Laisha Mccartney RT (R) Fluoro Time: DAP (Gy m2): Air Kerma (mGy): Trscr Dt/Tm: 03/31/2022 (0856) by:YimiBOSTON NUR[facility] FOR BL[facility] Printed Date/Time: 03/31/2022 (0859) Name: JESUS JACOBS [facility] Phys: Ephraim Early MD [address] : 1945 Age: 76 Sex: [place] [address] Loc: PHAYDEREN Exam Date: 03/31/2022 Status: REG REF PH: FAX: PAGE 1 Signed ReportCBC W/AUTO [id number] 07:18:00 Test Item Value Reference Range Interpretation Comments WHITE BLOOD CELL (test code = 21.9 x10 3/uL 4.8-10.8 H WBC) RED BLOOD CELL (test code = 3.46 x10 6/uL 4.20-5.40 L RBC) HEMOGLOBIN (test code = HGB) 10.2 g/dL 12.0-16.0 L HEMATOCRIT (test code = HCT) 33.1 % 37.0-47.0 L MEAN CELL VOLUME (test code = 95.7 fL 81.0-99.0 N MCV) MEAN CELL HGB (test code = 29.5 pg 27-31 N MCH) MEAN CELL HGB CONCENTRATION 30.8 G/DL 33-36.5 L (test code = MCHC) RED CELL DISTRIBUTION WIDTH 22.4 % 12.9-16.9 H (test code = RDW) PLATELET COUNT (test code = 408 x10 3/uL 150-440 N PLT) MEAN PLATELET VOLUME (test 11.4 fL 8.9-12.4 N code = MPV) NEUTROPHIL % (test code = NT%) 76.5 % 42.2-75.2 H LYMPHOCYTE % (test code = LY%) 12.8 % 20.5-51.1 L MONOCYTE % (test code = MO%) 8.7 % 1.7-9.3 N EOSINOPHIL % (test code = EO%) 0.1 % 0.0-7.0 N BASOPHIL % (test code = BA%) 0.4 % 0-2.5 N NEUTROPHIL # (test code = NT#) 16.76 x10 3/uL 1.80-7.70 H LYMPHOCYTE # (test code = LY#) 2.80 x10 3/uL 1.00-4.80 N MONOCYTE # (test code = MO#) 1.91 x10 3/uL 0.00-0.80 H EOSINOPHIL # (test code = EO#) 0.02 x10 3/uL 0.00-0.45 N BASOPHIL # (test code = BA#) 0.09 x10 3/uL 0.0-0.20 N - CT ABD PELVIS W/O [id number] 09:14:00 [facility] 1945 Sex: FPatient Name: JESUS JACOBS Unit No: [id number] EXAMS: CPT CODE: [id number] CT ABD PELVIS W/O CONT 22059 EXAM: CHEST, ABDOMEN AND PELVIS CT WITHOUT INTRAVENOUS CONTRAST CLINICAL INFORMATION: Leukocytosis, pneumonia. TECHNIQUE: A volumetric CT acquisition of the chest, abdomen and pelvis was performed following the administration of intravenous contrast. Coronal and sagittal reformatted images were obtained. One or more of the following dose reduction techniques were used: Automated exposure control, adjustment of the mA and/or kV according to patient size, and/or utilization of iterative reconstruction technique. Comparison: No prior CT images are available for comparison. Location:H19 FINDINGS: Unless otherwise specified, incidental findings do not require dedicated imaging follow-up. Lines and Tubes: There is a right upper abdominal percutaneous drainage catheter with tip within a right hepatic subcapsular collection measuring 1.6 cm in width. A left abdominal drainage catheter terminates at the left lower abdomen without fluid collection. An additional left approach drainagecatheter terminates within the right lower abdomen also without fluid collection. A right IJ venous catheter terminates within the cavoatrial junction. There is a left chest pacemaker. An enteric tubeterminates within the distal stomach. Mediastinum and Vasculature: There are no intrathoracic lymph nodes meeting CT criteria for enlargement. The heart is not enlarged. There is no pericardial effusion. The aorta and pulmonary artery are normal in size. Airways/Pleura/Lungs: The central airways are patent and without filling defects. There is a small right pleural effusion. Consolidation within the right lower lobe exhibits air bronchograms. There are linear densities within the left lower lobe. There is no pneumothorax. Abdomen/Pelvis: The patient is status post small bowel resection with right lower quadrant ileostomy. There is no bowel obstruction. The stomach appears normal with thick-walled.The liver, pancreas, spleen, adrenal glands and kidneys are unremarkable. The bladder is underdistended, though there appears to be mild adjacent stranding anterosuperiorly. Trace hyperdensity is demonstrated within the right pelvis on axial image 196. There is no pneumoperitoneum. The gallbladder hasbeen removed. Right pelvic surgical clips are present. Name: JESUS JACOBS [facility] Phys: Ephraim Early MD [address] : 1945 Age: 76 Sex: [place] [address] Loc: P.PSCLIEN Exam Date: 03/28/2022 Status: REG REF PH: FAX: PAGE 1 Signed Report (CONTINUED) Patient Name: JESUS JACOBS Unit No: [id number] EXAMS: CPT CODE: [id number] CT ABD PELVIS W/O CONT 87006 (Continued) Bones and Soft tissues: There is no acute fracture. Ventral abdominal wall soft tissue defects may be from exploratory laparotomy. IMPRESSION: Small right hepatic subcapsular collection status post percutaneous drainage catheter placement. No obvious hepatic laceration. Additional abdominal drainage catheters without fluid collection. Trace hemoperitoneum. Mildstranding surrounding the the anterosuperior margin of the decompressed bladder, a bladder injury isnot excluded on this study. Small right pleural effusion. Probable bilateral lower lobe atelectasis. Mild gastric wall thickening indicative of gastritis. Small bowel resection with right lower quadrant ileostomy. Cholecystectomy. at 0914 Reported and signed by: YANNA HILL M.D. CC: Ephraim Pearce MD Technologist: Dipti ThomasDI: DLP: Trscr Dt/Tm: 03/29/2022 (0914) by:[email or web address] Printed Date/Time: 04/17/2022 (1233) Name: JESUS JACOBS [facility] Phys: Ephraim Early MD [address] : 1945 Age: 76 Sex: [place] [address] Loc: P.DAVONLIAPRIL Exam Date: 03/28/2022 Status: REG REF PH: FAX: PAGE 2 Signed Report- CT ABD PELVIS W/O [id number] 09:14:00 [facility] : 1945 Sex: FPatient Name: JESUS JACOBS Unit No: [id number] EXAMS: CPT CODE: [id number] CT ABD PELVIS W/O CONT 84242 EXAM: CHEST, ABDOMEN AND PELVIS CT WITHOUT INTRAVENOUS CONTRAST CLINICAL INFORMATION: Leukocytosis, pneumonia. TECHNIQUE: A volumetric CT acquisition of the chest, abdomen and pelvis was performed following the administration of intravenous contrast. Coronal and sagittal reformatted images were obtained. One or more of the following dose reduction techniques were used: Automated exposure control, adjustment of the mA and/or kV according to patient size, and/or utilization of iterative reconstruction technique. Comparison: No prior CT images are available for comparison. Location: H19 FINDINGS: Unless otherwise specified, incidental findings do not require dedicated imaging follow-up. Lines and Tubes: There is a right upper abdominal percutaneous drainage catheter with tip within a right hepatic subcapsular collection measuring 1.6 cm in width. A left abdominal drainage catheter terminates at the left lower abdomen without fluid collection. An additional left approach drainage catheter terminates within the right lower abdomen also without fluid collection. A right IJ venous catheter terminateswithin the cavoatrial junction. There is a left chest pacemaker. An enteric tube terminates within the distal stomach. Mediastinum and Vasculature: There are no intrathoracic lymph nodes meeting CT criteria for enlargement. The heart is not enlarged. There is no pericardial effusion. The aorta and pulmonary artery are normal in size. Airways/Pleura/Lungs: The central airways are patent and without filling defects. There is a small right pleural effusion. Consolidation within the right lower lobe exhibits air bronchograms. There are linear densities within the left lower lobe. There is no pneumothorax. Abdomen/Pelvis: The patient is status post small bowel resection with right lower quadrant ileostomy. There is no bowel obstruction. The stomach appears normal with thick-walled. The liver, pancreas, spleen, adrenal glands and kidneys are unremarkable. The bladder is underdistended, though there appears to be mild adjacent stranding anterosuperiorly. Trace hyperdensity is demonstrated within the right pelvis on axial image 196. There is no pneumoperitoneum. The gallbladder has been removed. Right pelvic surgical clips are present. Name: JESUS JACOBS [facility] Phys: Ephraim Early MD [address] : 1945 Age: 76 Sex: [place] [address] Loc: P.PSCLIEN Exam Date: 03/28/2022 Status: REG REF PH: FAX: PAGE 1 Signed Report (CONTINUED) Patient Name: JESUS JACOBS Unit No: [id number] EXAMS: CPT CODE: [id number] CT ABD PELVIS W/O CONT 89680 (Continued) Bones and Soft tissues: There is no acute fracture. Ventral abdominal wall soft tissue defects maybe from exploratory laparotomy. IMPRESSION: Small right hepatic subcapsular collection status post percutaneous drainage catheter placement. No obvious hepatic laceration. Additional abdominal drainage catheters without fluid collection. Trace hemoperitoneum. Mild stranding surrounding the the anterosuperior margin of the decompressed bladder, a bladder injury is not excluded on this study. Small right pleural effusion. Probable bilateral lower lobe atelectasis. Mild gastric wall thickening indicati ve of gastritis. Small bowel resection with right lower quadrant ileostomy. Cholecystectomy. at 0914 Reported and signed by: YANNA HILL M.D. CC: Ephraim Pearce MD Technologist: Dipti Funk CTDI: DLP: Trscr Dt/Tm: 03/29/2022 (0914) by:[email or web address] Printed Date/Time: 03/29/2022 (0917) Name: JESUS JACOBS [facility] Phys: Ephraim Early MD [address] : 1945 Age: 76 Sex: [place] [address] Loc: P.PSCLIEN Exam Date: 03/28/2022 Status: REG REF PH: FAX: PAGE 2 Signed Report- CT CHEST W/O CONTRAST 2022-03-29 09:14:00 [facility] : 1945 Sex: FPatient Name: JESUS JACOBS Unit No: [id number] EXAMS: CPT CODE: [id number] CT CHEST W/O CONTRAST 06755 EXAM: CHEST, ABDOMEN AND PELVIS CT WITHOUT INTRAVENOUS CONTRAST CLINICAL INFORMATION: Leukocytosis, pneumonia. TECHNIQUE: A volumetric CT acquisition of the chest, abdomen and pelvis was performed following the administration of intravenous contrast. Coronal and sagittal reformatted images were obtained. One or more of the following dose reduction techniques were used: Automated exposure control, adjustment of the mA and/or kV according to patient size, and/or utilization of iterative reconstruction technique. Comparison: No prior CT images are available for comparison. Location: H19 FINDINGS: Unless otherwise specified, incidental findings do not require dedicated imaging follow-up. Lines and Tubes: There is a right upper abdominal percutaneous drainage catheter with tip within a right hepatic subcapsular collection measuring 1.6 cm in width. A left abdominal drainage catheter terminates at the left lower abdomen without fluid collection. An additional left approach drainage catheter terminates within the right lower abdomen also without fluid collection. A right IJ venous catheter terminates within the cavoatrial junction. There is a left chest pacemaker. An enteric tube terminates within the distal stomach. Mediastinum and Vasculature: There are no intrathoracic lymph nodes meeting CT criteria for enlargement. The heart is not enlarged. There is no pericardial effusion.The aorta and pulmonary artery are normal in size. Airways/Pleura/Lungs: The central airways are patent and without filling defects. There is a small right pleural effusion. Consolidation within the right lower lobe exhibits air bronchograms. There are linear densities within the left lower lobe. There is no pneumothorax. Abdomen/Pelvis: The patient is status post small bowel resection with right lower quadrant ileostomy. There is no bowel obstruction. The stomach appears normal with thick-walled. The liver, pancreas, spleen, adrenal glands and kidneys are unremarkable. The bladder is underdistended, though there appears to be mild adjacent stranding anterosuperiorly. Trace hyperdensity is demonstrated within the right pelvis on axial image 196. There is no pneumoperitoneum. The gallbladder has been removed. Right pelvic surgical clips are present. Name: JACOBSJESUS [facility] Phys: Ephraim Early MD [address] : 1945 Age: 76 Sex: F [place] [address] Loc: P.PSCLIEN Exam Date: 03/28/2022 Status: REG REF PH: FAX: PAGE 1 Signed Report (CONTINUED) Patient Name: JESUS JACOBSORIA Unit No: [id number] EXAMS: CPT CODE: [id number] CTCHEST W/O CONTRAST 30479 (Continued) Bones and Soft tissues: There is no acute fracture. Ventral abdominal wall soft tissue defects may be from exploratory laparotomy. IMPRESSION: Small right hepatic subcapsular collection status post percutaneous drainage catheter placement. No obvious hepatic lacerat ion. Additional abdominal drainage catheters without fluid collection. Trace hemoperitoneum. Mild stranding surrounding the the anterosuperior margin of the decompressed bladder, a bladder injury is not excluded on this study. Small right pleural effusion. Probable bilateral lower lobe atelectasis. Mild gastric wall thickening indicative of gastritis. Small bowel resection with right lower quadrant ileostomy. Cholecystectomy. at 0914 Reported and signed by: YANNA HILL M.D. CC: Ephraim Pearce MD Technologist: Dipti Funk CTDI: 11.59 DLP: 824 Trscr Dt/Tm: 03/29/2022 (0914) by:[email or web address] Printed Date/Time: 04/17/2022 (1233) N laine: JACOBS,[facility] Phys: Ephraim Early MD [address] DOB:1945 Age: 76 Sex: [place] [address] Loc: P.PSCLIEN Exam Date: 03/28/2022 Status: REG REF PH: FAX: PAGE 2 Signed Report- CT CHEST W/O [id number] 09:14:00 [facility] : 1945 Sex: FPatient Name: JESUS JACOBS Unit No: [id number] EXAMS: CPT CODE: [id number] CT CHEST W/O CONTRAST 26012 EXAM: CHEST, ABDOMEN AND PELVIS CT WITHOUT INTRAVENOUS CONTRAST CLINICAL INFORMATION: Leukocytosis, pneumonia. TECHNIQUE: A volumetric CT acquisition of the chest, abdomen and pelvis was performed following the administration of intravenous contrast. Coronal and sagittal reformatted images were obtained. One or more of the following dose reduction techniques were used: Automated exposure control, adjustment of the mA and/or kV according to patient size, and/or utilization of iterative reconstructiontechnique. Comparison: No prior CT images are available for comparison. Location: H19 FINDINGS: Unless otherwise specified, incidental findings do not require dedicated imaging follow-up. Lines and Tubes: There is a right upper abdominal percutaneous drainage catheter with tip within a right hepatic subcapsular collection measuring 1.6 cm in width. A left abdominal drainage catheter terminates at the left lower abdomen without fluid collection. An additional left approach drainage catheter terminates within the right lower abdomen also without fluid collection. A right IJ venous catheter terminateswithin the cavoatrial junction. There is a left chest pacemaker. An enteric tube terminates within the distal stomach. Mediastinum and Vasculature: There are no intrathoracic lymph nodes meeting CT criteria for enlargement. The heart is not enlarged. There is no pericardial effusion. The aorta and pulmonary artery are normal in size. Airways/Pleura/Lungs: The central airways are patent and without filling defects. There is a small right pleural effusion. Consolidation within the right lower lobe exhibits air bronchograms. There are linear densities within the left lower lobe. There is no pneumothorax. Abdomen/Pelvis: The patient is status post small bowel resection with right lower quadrant ileostomy. There is no bowel obstruction. The stomach appears normal with thick-walled. The liver, pancreas, spleen, adrenal glands and kidneys are unremarkable. The bladder is underdistended, though there appears to be mild adjacent stranding anterosuperiorly. Trace hyperdensity is demonstrated within theright pelvis on axial image 196. There is no pneumoperitoneum. The gallbladder has been removed. Right pelvic surgical clips are present. Name: [facility] Phys: Ephraim Early MD [address] DOB: 1945 Age: 76 Sex: [place] [address] Loc: PMIKEAPRIL Exam Date: 03/28/2022 Status: REG REF PH: FAX: PAGE 1 Signed Report (CONTINUED) Patient Name: JESUS JACOBS Unit No: [id number] EXAMS: CPT CODE: [id number] CT CHEST W/O CONTRAST 32483 (Continued) Bones and Soft tissues: There is no acute fracture. Ventral abdominal wall soft tissue defects may be from exploratory laparotomy. IMPRESSION: Small right hepatic subcapsular collection status post percutaneous drainage catheter placement. No obvious hepatic laceration. Additional abdominal drainage catheters without fluid collection. Trace hemoperitoneum. Mild stranding surrounding the the anterosuperior margin of the decompressed bladder, a bladder injury is not excluded on this study. Small right pleural effusion. Probable bilateral lower lobe atelectasis. Mild gastric wall thickening indica tive of gastritis. Small bowel resection with right lower quadrant ileostomy. Cholecystectomy. at 0914 Reported and signed by: YANNA HILL M.D. CC: Ephraim Pearce MD Technologist: Dipti Funk CTDI: 11.59 DLP: 824 Trscr Dt/Tm: (0914) by:[email or web address] Printed Date/Time: 03/29/2022 (2517) Name: [facility] Phys: Ephraim Early MD [address] DOB: 1945 Age: 76 Sex: F [place] [address] [address] No: [id number] Loc: CANELO Exam Date: 03/28/2022 Status: REG REF PH: FAX: PAGE 2 Signed Report CBC W/AUTO [id number] 08:13:00 Test Item Value Reference Range Interpretation Comments WHITE BLOOD CELL (test code = 28.4 x10 3/uL 4.8-10.8 H WBC) RED BLOOD CELL (test code = 3.70 x10 6/uL 4.20-5.40 L RBC) HEMOGLOBIN (test code = HGB) 10.8 g/dL 12.0-16.0 L HEMATOCRIT (test code = HCT) 34.2 % 37.0-47.0 L MEAN CELL VOLUME (test code = 92.4 fL 81.0-99.0 N MCV) MEAN CELL HGB (test code = 29.2 pg 27-31 N MCH) MEAN CELL HGB CONCENTRATION 31.6 G/DL 33-36.5 L (test code = MCHC) RED CELL DISTRIBUTION WIDTH 20.8 % 12.9-16.9 H (test code = RDW) PLATELET COUNT (test code = 477 x10 3/uL 150-440 H PLT) MEAN PLATELET VOLUME (test 10.8 fL 8.9-12.4 N code = MPV) NEUTROPHIL % (test code = NT%) 79.2 % 42.2-75.2 H LYMPHOCYTE % (test code = LY%) 9.1 % 20.5-51.1 L MONOCYTE % (test code = MO%) 8.0 % 1.7-9.3 N EOSINOPHIL % (test code = EO%) 0.0 % 0.0-7.0 N BASOPHIL % (test code = BA%) 0.5 % 0-2.5 N NEUTROPHIL # (test code = NT#) 22.43 x10 3/uL 1.80-7.70 H LYMPHOCYTE # (test code = LY#) 2.59 x10 3/uL 1.00-4.80 N MONOCYTE # (test code = MO#) 2.28 x10 3/uL 0.00-0.80 H EOSINOPHIL # (test code = EO#) 0.00 x10 3/uL 0.00-0.45 N BASOPHIL # (test code = BA#) 0.15 x10 3/uL 0.0-0.20 N BASIC METABOLIC [id number] 10:37:00 Test Item Value Reference Range Interpretation Comments SODIUM (test code = 146 mmol/L 136-145 H Please n ote: New NA) Reference Range Jun 2020 POTASSIUM (test code 4.6 mmol/L 3.5-5.1 N = K) CHLORIDE (test code 110 mmol/L 98-107 H Please n ote: New = CL) Reference Range Jun 2020 CARBON DIOXIDE (test 20 mmol/L 20-31 N Please note: New code = CO2) Reference Range Jun 2020 GLUCOSE (test code = 121 mg/dL 74-106 H Please note: New GLU) Reference Range Jun 2020 BLOOD UREA NITROGEN 69 mg/dL 9-23 H Please n ote: New (test code = BUN) Reference Range Jun 2020 GLOMERULAR 58 mL/min >60 L The Glomerular FILTRATION RATE Filtration R ate is a (test code = GFR) calculated parameterbased on serum Creatinine, pat ient age and sex. GFR va luesless than 60 mL/min/ 1.73 square meters a re indicative ofCh ronic Kidney Disease. Values less than 15 mL/min/1.73squa re meters indicate Kidney failure. The calculation for GFR is based on the CK D-EPI (2020) calculat ion. This formulais race indifferent and is the recommended for rodolfo for GFRby the Nat nal Kidney Foundati on for Adults.The GFR will not calculate if th e sex is unknown or if thepatient's ag e is <18 years. CREATININE (test 1.00 mg/dL 0.55-1.02 N Please note : New code = CREAT) Reference Rang e Jun 2020 CALCIUM (test code = 8.4 mg/dL 8.7-10.4 L Please note: New CA) Reference Range Jun 2020 [id number] 10:37:00 Test Item Value Reference Range Interpretation Comments PHOSPHOROUS (test code 5.2 mg/dL 2.4-5.1 H Pleas e note: New = PHOS) Reference Range Jun 2020 [id number] 10:37:00 Test Item Value Reference Range Interpretation Comments MAGNESIUM (test code = 2.1 mg/dL 1.6-2.6 N Pleas e note: New MAG) Reference Range Jun 2020 - XR ABDOMEN [id number] 10:32:00 [facility] 1945 Sex: FPatient Name: JESUS JACOBS Unit No: [id number] EXAMS: CPT CODE: [id number] XR ABDOMEN 1V 90589 STUDY: Abdominal radiograph HISTORY: Replaced NG tube COMPARISON: 03/27/2022 TECHNIQUE: AP view of the abdomen. LOCATION: H19 FINDINGS: The nasogastric tube has been replaced with tip coiled at the distal stomach. Lower abdominal catheters are in similar position. Again seen is a right lower q uadrant ostomy bag. No acute osseous abnormalities are identified. IMPRESSION: Nasogastric tube placement as above. at 1032 Reported and signed by: YANNA HILL M.D. CC: Ephraim Pearce MD Technologist: Laisha Mccartney RT (R) Fluoro Time: DAP (Gy m2): Air Kerma (mGy): Trscr Dt/Tm: 03/27/2022 (1032) by:[email or web address] Printed Date/Time: 04/17/2022 (1233) Name: JESUS JACOBS [facility] Phys: Ephraim Early MD [address] : 1945 Age: 76 Sex: [place] [address] Loc: PENRIQUE Exam Date: 03/27/2022 Status: REG REF PH: FAX: PAGE 1 Signed Report- XR ABDOMEN [id number] 10:32:00 [facility] : 1945 Sex: FPatient Name: JESUS JACOBS Unit No: [id number] EXAMS: CPT CODE: [id number] XR ABDOMEN 1V 71211 STUDY: Abdominal radiograph HISTORY: Replaced NG tube COMPARISON: 03/27/2022 TECHNIQUE: AP view of the abdomen. LOCATION: H19 FINDINGS: The nasogastric tube has been replaced with tip coiled at the distal stomach. Lower abdominal catheters are in similar position. Again seen is a right lower quadrant ostomy bag. No acute osseous abnormalities are identified. IMPRESSION: Nasogastric tube placement as above. at 1032 Reported and signed by: YANNA HILL M.D. CC: Ephraim Pearce MD Technologist: Laisha Mccartney RT (R) Fluoro Time: DAP (Gy m2): Air Kerma (mGy): Trscr Dt/Tm: 03/27/2022 (1032) by:[email or web address] Printed Date/Time: 03/27/2022 (1035) Name: JESUS JACOBS [facility] Phys: Ephraim Early MD [address] : 1945 Age: 76 Sex: F [place] [address] Loc: P.PSCLIEN Exam Date: 03/27/2022 Status: REGREF PH: FAX: PAGE 1 Signed Report- XR ABDOMEN [id number] 09:34:00 [facility] : 1945 Sex: FPatient Name: JESUS JACOBS Unit No: [id number] EXAMS: CPT CODE: [id number] XR ABDOMEN 1V 97446 STUDY: Abdominal radiograph HISTORY: NG tube placement COMPARISON: 03/25/2022 TECHNIQUE: AP view of the abdomen. LOCATION: H19 FINDINGS: The nasogastric tube tip projects over the distal stomach. A pigtail catheter projects over left lower abdomen. Additional catheter projects over the right l ower abdomen. A right lower quadrant ostia bag is present. There are right upper abdominal surgical clips. Additionally, chain sutures are demonstrated a left lower abdomen. There are no air-filled dilated loops of bowel to suggest bowel obstruction. No acute osseous abnormalities are identified. IMPRESSION: Nasogastric tube placement as above. at 0934 Reported and signed by: YANNA HILL M.D. CC: Ephraim Pearce MD Technologist: Mj Soto Time: DAP (Gy m2): Air Kerma (mGy): Trscr Dt/Tm: 03/27/2022 (0934) by:[email or web address] PrintedDate/Time: 04/17/2022 (1233) Name: JESUS JACOBS [facility] Phys: Ephraim Early MD [address] : 1945 Age: 76 Sex: F [place], [place] [address] Loc:P.PSCLIEN Exam Date: 03/27/2022 Status: REG REF PH: FAX: PAGE 1 Signed Report- XR ABDOMEN [id number] 09:34:00 [facility] : 1945 Sex: FPatient Name: JESUS JACOBS Unit No: [id number] EXAMS: CPT CODE: [id number] XR ABDOMEN 1V 52902 STUDY: Abdominal radiograph HISTORY: NG tube placement COMPARISON: 03/25/2022 TECHNIQUE: AP view of the abdomen. LOCATION: H19 FINDINGS: The nasogastric tube tip projects over the distal stomach. A pigtail catheter projects over left lower abdomen. Additional catheter projects over the right lower abdomen. A r ight lower quadrant ostia bag is present. There are right upper abdominal surgical clips. Additionally, chain sutures are demonstrated a left lower abdomen. There are no air-filled dilated loops of bowel to suggest bowel obstruction. No acute osseous abnormalities are identified. IMPRESSION: Nasogastric tube placement as above. at 0934 Reported and signed by: YANNA HILL M.D. CC: Ephraim Pearce MD Technologist: Mj Feng Fluoro Time:DAP (Gy m2): Air Kerma (mGy): Trscr Dt/Tm: 03/27/2022 (0934) by:[email or web address] Printed Date/Time: 022 (0937) Name: JESUS JACOBS [facility] Phys: Ephraim Early MD [address] : 1945 Age: 76 Sex: [place] [address] Loc: P.PSCLIEN Exam Date: 03/27/2022 Status: REG REF PH: FAX: PAGE 1 Signed ReportCBC W/AUTO [id number] 07:54:00 Test Item Value Reference Range Interpretation Comments WHITE BLOOD CELL (test code = 27.8 x10 3/uL 4.8-10.8 H WBC) RED BLOOD CELL (test code = 3.52 x10 6/uL 4.20-5.40 L RBC) HEMOGLOBIN (test code = HGB) 10.2 g/dL 12.0-16.0 L HEMATOCRIT (test code = HCT) 31.7 % 37.0-47.0 L MEAN CELL VOLUME (test code = 90.1 fL 81.0-99.0 N MCV) MEAN CELL HGB (test code = 29.0 pg 27-31 N MCH) MEAN CELL HGB CONCENTRATION 32.2 G/DL 33-36.5 L (test code = MCHC) RED CELL DISTRIBUTION WIDTH 19.3 % 12.9-16.9 H (test code = RDW) PLATELET COUNT (test code = 503 x10 3/uL 150-440 H PLT) MEAN PLATELET VOLUME (test 10.3 fL 8.9-12.4 N code = MPV) NEUTROPHIL % (test code = NT%) 72.8 % 42.2-75.2 N LYMPHOCYTE % (test code = LY%) 9.8 % 20.5-51.1 L MONOCYTE % (test code = MO%) 8.8 % 1.7-9.3 N EOSINOPHIL % (test code = EO%) 0.1 % 0.0-7.0 N BASOPHIL % (test code = BA%) 0.2 % 0-2.5 N NEUTROPHIL # (test code = NT#) 20.27 x10 3/uL 1.80-7.70 H LYMPHOCYTE # (test code = LY#) 2.73 x10 3/uL 1.00-4.80 N MONOCYTE # (test code = MO#) 2.46 x10 3/uL 0.00-0.80 H EOSINOPHIL # (test code = EO#) 0.02 x10 3/uL 0.00-0.45 N BASOPHIL # (test code = BA#) 0.05 x10 3/uL 0.0-0.20 N CBC W/MANUAL [id number] 16:38:00 Test Item Value Reference Range Interpretation Comments WHITE BLOOD CELL (test code = 26.1 x10 3/uL 4.8-10.8 H WBC) RED BLOOD CELL (test code = 3.34 x10 6/uL 4.20-5.40 L RBC) HEMOGLOBIN (test code = HGB) 9.7 g/dL 12.0-16.0 L HEMATOCRIT (test code = HCT) 29.3 % 37.0-47.0 L MEAN CELL VOLUME (test code = 87.7 fL 81.0-99.0 N MCV) MEAN CELL HGB (test code = MCH) 29.0 pg 27-31 N MEAN CELL HGB CONCENTRATION 33.1 G/DL 33-36.5 N (test code = MCHC) RED CELL DISTRIBUTION WIDTH 18.3 % 12.9-16.9 H (test code = RDW) PLATELET COUNT (test code = 464 x10 3/uL 150-440 H PLT) MEAN PLATELET VOLUME (test code 10.1 fL 8.9-12.4 N = MPV) TOTAL CELLS COUNTED (test code 100 #CELLS = TCC) SEGMENTED NEUTROPHILS (test 80 % 49-71 H code = SEG) LYMPHOCYTE (test code = LYMPH) 11 % 20-40 L BAND NEUTROPHIL (test code = 2 % 0-5 N BAND) MONOCYTE (test code = MON) 7 % 3-8 N ANISOCYTOSIS (test code = 1+ NONE SEEN A ANISO) COMPREHENSIVE METABOLIC [id number] 15:40:00 Test Item Value Reference Range Interpretation Comments SODIUM (test code 142 mmol/L 136-145 N Please not e: New = NA) Reference Range Jun 2020 POTASSIUM (test 3.8 mmol/L 3.5-5.1 code = K) CHLORIDE (test 110 mmol/L 98-107 H Please note: New code = CL) Reference Range Jun 2020 CARBON DIOXIDE 20 mmol/L 20-31 N Please note: New (test code = CO2) Reference Range Jun 2020 GLUCOSE (test code 171 mg/dL 74-106 H Please no te: New = GLU) Reference Range Jun 2020 BLOOD UREA 58 mg/dL 9-23 H Please note: Ne w NITROGEN (test Reference Ran ge Feb code = BUN) 2020 GLOMERULAR >=60 max >60 The Glomerular FILTRATION RATE estimate mL/min Filtratio n Rate is a (test code = GFR) calculated parameterbased on serum Creatinin e, patient age and sex. GFR valuesless than 60 mL/min/1.73 square meters are [place] cative ofChronic Kidne y Disease. Values less than 15 mL/min/1.73squa re meters indicate Kidney failure. The calculation for GFR is based on the CK D-EPI (2020) calculat ion. This formulais race indifferent and is the recommended formula for GFR by the National Kidney Foundation for Adults.The GFR will not calculate i f the sex is unknown or if thepatient's ag e is <18 years. CREATININE (test 0.90 mg/dL 0.55-1.02 N Please note : New code = CREAT) Reference Rang e Jun 2020 TOTAL PROTEIN 7.5 g/dL 5.7-8.2 N Please note: N ew (test code = PROT) Reference Range Jun 2020 ALBUMIN (test code 3.6 g/dL 3.2-4.8 N Please no te: New = ALB) Reference Range Jun 2020 CALCIUM (test code 7.7 mg/dL 8.7-10.4 L Please no te: New = CA) Reference Range Jun 2020 BILIRUBIN TOTAL 0.3 mg/dL 0.3-1.2 N Please note: New (test code = BILT) Reference Range Jun 2020 SGOT/AST (test 70 U/L <34 H Please note: New code = AST) Reference Range Jun 2020 SGPT/ALT (test 46 U/L 10-49 N Please note: New code = ALT) Reference Range Jun 2020 ALKALINE 138 U/L 46-116 H Please note: Ne w PHOSPHATASE (test Reference Range Feb code = ALKP) 2020 - XR CHEST 1 [id number] 15:39:00 [facility] 1945 Sex: FPatient Name: JESUS JACOBS Unit No: [id number] EXAMS: CPT CODE: [id number] XR CHEST 1 V 61390 CLINICAL HISTORY: COUGH. LOCATION: A1 FINDINGS: No comparison studies. A portable AP view ofthe chest is dated 03/25/2022 . 1435 hours. The cardiomediastinal silhouette is within normal limits. There is a nasogastric tube in place with its tip in the region of the distal stomach. There is a right central line with its tip overlying the SVC/right atrial junction. Cardiac conduction device overlies the left chest. There is a right chest tube. There is moderate atelectasis/infiltrate at the right lower lung. There may be a small right pleural effusion. There is minimal atelectasis/infiltrateat the lateral left lung base. There are surgical clips at the right upper quadrant of the abdomen. No acute skeletal or soft tissue abnormalities. IMPRESSION: 1. There is moderate atelectasis/infiltrate at the right lower lung with possible small right pleural effusion. There is minimal atelectasis/infiltrate at the lateral left lung base. 2. Tubes and lines as described above. at 1539 Reported and signed by: ABBY CRUM M.D.CC: Ephraim Pearce MD Technologist: Jazmin Soto Time: DAP (Gy m2): Air Kerma (mGy): Trscr Dt/Tm: 03/25/2022 (1539) by:[email or web address] Printed Date/Time: 04/17/2022 (1233) Name: JESUS JACOBS [facility] Phys: Ephraim Early MD [address] : 1945 Age: 76 Sex: [place] [id number] Loc: PENRIQUE Exam Date: 03/25/2022 Status: REG REF PH: FAX: PAGE 1 Signed Report- XR CHEST 1 [id number] 15:39:00 [facility] : 1945 Sex: FPatient Name: JESUS JACOBS Unit No: [id number] EXAMS: CPT CODE: [id number] XR CHEST 1 V 16205 CLINICAL HISTORY: COUGH. LOCATION: A1 FINDINGS: No comparison studies. A portable AP view of the chest is dated 03/25/2022 . 1435 hours. The cardiomediastinal silhouette is within normal limits. There is a nasogastric tube in place with its tip in the region of the distal stomach. There is a right central linewith its tip overlying the SVC/right atrial junction. Cardiac conduction device overlies the left chest. There is a right chest tube. There is moderate atelectasis/infiltrate at the right lower lung. There may be a small right pleural effusion. There is minimal atelectasis/infiltrate at the lateral left lung base. There are surgical clips at the right upper quadrant of the abdomen. No acute skeletalor soft tissue abnormalities. IMPRESSION: 1. There is moderate atelectasis/infiltrate at the right lower lung with possible small right pleural effusion. There is minimal atelectasis/infiltrate at the lateral left lung base. 2. Tubes and lines as described above. at 1539 Reported and signed by: ABBY CRUM M.D. CC: Ephraim Pearce MD Technologist: Jazmin Soto Time: DAP (Gy m2): Air Kerma (mGy): Trscr Dt/Tm: 03/25/2022 (1539) by:[email or web address] Printed Date/Time: 03/25/2022 (7322) Name: JESUS JACOBS [facility] Phys: Ephraim Early MD [address] : 1945 Age: 76 [place]: [place] [id number] Loc: P.PSCLIEN Exam Date: 03/25/2022 Status: REG REF PH: FAX: PAGE 1 Signed Report- XR ABDOMEN 1V 2022-03-25 11:25:00 [facility] : 1945 Sex: FPatient Name: JESUS JACOBS Unit No: [id number] EXAMS: CPT CODE: [id number] XR ABDOMEN 1V 64433 CLINICAL HISTORY: NG TUBE PLACEMENT. LOCATION: A1 FINDINGS: Comparison is made with previous study dated March 23, 2022. AP views of the abdomen demonstrate a nasogastric tube in place with its tip in the region of the distal stomach. The visualized bowel gas pattern is nonspecific. No acute abnormalities are otherwise identified within the abdomen. IMPRESSION: 1. The nasogastric tube tip is in the region of the distal stomach . at 1125 Reported and signed by: ABBY CRUM M.D. CC: Ephraim Pearce MD Technologist:Jazmin Soto Time: DAP (Gy m2): Air Kerma (mGy): Trscr Dt/Tm: 03/25/2022 (0965) by:[email or web address] Printed Date/Time: 04/17/2022 (2462) [facility] [address] : 1945 Age: 76 Sex: F [place] [id number] Loc: PENRIQUE Exam Date: 03/25/2022 Status: REG REF PH: FAX: PAGE 1 Signed Report- XR ABDOMEN 1V 2022-03-25 11:25:00 [facility] : 1945 Sex: FPatient Name: JESUS JACOBS Unit No: [id number] EXAMS: CPT CODE: [id number] XR ABDOMEN 1V 53903 CLINICAL HISTORY: NG TUBE PLACEMENT. LOCATION: A1 FINDINGS: Comparison is made with previous study dated March 23, 2022. AP views of the abdomen demonstrate a nasogastric tube in place with its tip in the region of the distal stomach. The visualized bowel gas pattern is nonspecific. No acute abnormalitiesare otherwise identified within the abdomen. IMPRESSION: 1. The nasogastric tube tip is in the region of the distal stomach . at 1125 Reported and signed by: ABBY CRUM M.D. CC: Ephraim Pearce MD Technologist: Jazmin Soto Time: DAP (Gy m2): Air Kerma (mGy): Trscr Dt/Tm: 03/25/2022 (1125) by:[email or web address] Printed Date/Time: 03/25/2022 (4385) Name: JESUS JACOBS [facility] Phys: Ephraim Early MD [address] : 1945 Age: 76 Sex: F [place] [id number] Loc: CANELO Exam Date: 03/25/2022 Status: REG REF PH: FAX: PAGE 1 Signed ReportCBC W/AUTO DIFF 2022-03-23 14:20:00 Test Item Value Reference Range Interpretation Comments WHITE BLOOD CELL (test code = 18.9 x10 3/uL 4.8-10.8 H WBC) RED BLOOD CELL (test code = 3.39 x10 6/uL 4.20-5.40 L RBC) HEMOGLOBIN (test code = HGB) 9.8 g/dL 12.0-16.0 L HEMATOCRIT (test code = HCT) 29.7 % 37.0-47.0 L MEAN CELL VOLUME (test code = 87.6 fL 81.0-99.0 N MCV) MEAN CELL HGB (test code = 28.9 pg 27-31 N MCH) MEAN CELL HGB CONCENTRATION 33.0 G/DL 33-36.5 N (test code = MCHC) RED CELL DISTRIBUTION WIDTH 18.4 % 12.9-16.9 H (test code = RDW) PLATELET COUNT (test code = 394 x10 3/uL 150-440 N PLT) MEAN PLATELET VOLUME (test 10.7 fL 8.9-12.4 N code = MPV) NEUTROPHIL % (test code = NT%) 74.1 % 42.2-75.2 N LYMPHOCYTE % (test code = LY%) 10.7 % 20.5-51.1 L MONOCYTE % (test code = MO%) 9.1 % 1.7-9.3 N EOSINOPHIL % (test code = EO%) 0.2 % 0.0-7.0 N BASOPHIL % (test code = BA%) 0.7 % 0-2.5 N NEUTROPHIL # (test code = NT#) 14.00 x10 3/uL 1.80-7.70 H LYMPHOCYTE # (test code = LY#) 2.02 x10 3/uL 1.00-4.80 N MONOCYTE # (test code = MO#) 1.73 x10 3/uL 0.00-0.80 H EOSINOPHIL # (test code = EO#) 0.04 x10 3/uL 0.00-0.45 N BASOPHIL # (test code = BA#) 0.14 x10 3/uL 0.0-0.20 N THROMBOPLASTIN TIME [id number] 08:17:00 Test Item Value Reference Range Interpretation Comments THROMBOPLASTIN TIME 34.6 SECONDS 23.8-34.8 N INTERPRE TATIVE PARTIAL (test code = DATA: erapeutic PTT) range: Unfractionated heparin:55 - 80 seconds Argatroban:1.5 to 3 times the basel ine PTT - XR ABDOMEN [id number] 08:06:00 [facility] : 1945 Sex: FPatient Name: JESUS JACOBS Unit No: [id number] EXAMS: CPT CODE: [id number] XR ABDOMEN 1V 33099 NAME: Jesus Jaocbs MRN: [id number] [facility] : [birth year] EXAM: XR ABDOMEN, 1V LOCATION: H57 HISTORY: dobbhoff placement COMPARISON: None available time of interpretation. FINDINGS: Single frontal view of the abdomen were obtained. An esophagogastric tube is positioned in the stomach. No Dobbhoff tube is seen on this study. A surgical drain is positioned in the right lower quadrant. Pigtail catheters are positioned in the left lower and right upper quadrants. Nonobstructive bowel gas pattern. No suspicious calcifications identified. No pneumatosis, free air, or portal venous gas.No acute osseous findings. The visualized lung bases are clear. IMPRESSION: An esophagogastric tubeis positioned in the stomach. No Dobbhoff tube is seen on this study. Correlate clinically. at 0806 Reported and signed by:ALLISON CORREIA M.D. CC: Ephraim Pearce MD Technologist: KATIANA STARKS (R); Jazmin Soto Time: DAP (Gy m2): Air Kerma (mGy): Trscr Dt/Tm: 03/23/2022 (0806) by:[email or web address] Printed Date/Time: 04/17/2022 (1233) Name: JESUS JACOBS [facility] Phys: Ephraim Early MD [address] : 1945 Age: 76 [place]: [place] [id number] Loc: PENRIQUE Exam Date: 03/23/2022 Status: REG REF PH: FAX: PAGE 1 Signed Report- XR ABDOMEN [id number] 08:06:00 [facility] : 1945 Sex: FPatient Name: JESUS JACOBS Unit No: [id number] EXAMS: CPT CODE: [id number] XR ABDOMEN 1V 86725 NAME: Jesus Jacobs MRN: [id number] [facility] : [birth year] EXAM: XR ABDOMEN, 1V LOCATION: H57 HISTORY: dobbhoff placement COMPARISON: None available time of interpretation. FINDINGS: Single frontal view of the abdomen were obtained. An esophagogastric tube is positioned in the stomach. No Dobbhoff tube is seen on this study. A surgical drain is positioned in the right lower quadrant. Pigtail catheters are positioned in the left lower and right upper quadrants. Nonobstructive bowel gas pattern. No suspicious calcifications identified. No pneumatosis, free air, or portal venous gas. No acute osseous findings. The visualized lung bases are clear. IMPRESSION: An esophagogastric tube is positioned in the stomach. No Dobbhoff tube is seen on this study. Correlate clinically. at 0806 Reported and signed by: ALLISON FERRIS M.D. CC: Ephraim Pearce MD Technologist: KATIANA STARKS (R); Jazmin Soto Time:DAP (Gy m2): Air Kerma (mGy): Trscr Dt/Tm: 03/23/2022 (08) by:[email or web address] Printed Date/Time: 03/23/2022 (0807) [facility] Ephraim Early [facility] [address] : 1945 Age: 76 Sex: [place] [id number] Loc: SurekhaPSCLIEN Exam Date: 03/23/2022 Status: REG REF PH: FAX: PAGE 1 Signed ReportCOMPREHENSIVE METABOLIC [id number] 08:04:00 Test Item Value Reference Range Interpretation Comments SODIUM (test code 139 mmol/L 136-145 N Please not e: New = NA) Reference Range Jun 2020 POTASSIUM (test 4.9 mmol/L 3.5-5.1 N code = K) CHLORIDE (test 107 mmol/L 98-107 N Please note: New code = CL) Reference Range Jun 2020 CARBON DIOXIDE 20 mmol/L 20-31 N Please note: New (test code = CO2) Reference Range Jun 2020 GLUCOSE (test code 164 mg/dL 74-106 H Please no te: New = GLU) Reference Range Jun 2020 BLOOD UREA 48 mg/dL 9-23 H Please note: Ne w NITROGEN (test Reference Ran ge Feb code = BUN) 2020 GLOMERULAR >=60 max >60 The Glomerular FILTRATION RATE estimate mL/min Filtratio n Rate is a (test code = GFR) calculated parameterbased on serum Creatinin e, patient age and sex. GFR valuesless than 60 mL/min/1.73 square meters are [place] cative ofChronic Kidne y Disease. Values less than 15 mL/min/1.73squa re meters indicate Kidney failure. The calculation for GFR is based on the CK D-EPI (2020) calculat ion. This formulais race indifferent and is the recommended formula for GFR by the National Kidney Foundation for Adults.The GFR will not calculate i f the sex is unknown or if thepatient's ag e is <18 years. CREATININE (test 0.80 mg/dL 0.55-1.02 N Please note : New code = CREAT) Reference Rang e Jun 2020 TOTAL PROTEIN 6.4 g/dL 5.7-8.2 N Please note: N ew (test code = PROT) Reference Range Jun 2020 ALBUMIN (test code 3.1 g/dL 3.2-4.8 L Please no te: New = ALB) Reference Range Jun 2020 CALCIUM (test code 7.7 mg/dL 8.7-10.4 L Please no te: New = CA) Reference Range Jun 2020 BILIRUBIN TOTAL 0.4 mg/dL 0.3-1.2 N Please note: New (test code = BILT) Reference Range Jun 2020 SGOT/AST (test 18 U/L <34 N Please note: New code = AST) Reference Range Jun 2020 SGPT/ALT (test 15 U/L 10-49 N Please note: New code = ALT) Reference Range Jun 2020 ALKALINE 114 U/L 46-116 N Please note: Ne w PHOSPHATASE (test Reference Range Feb code = ALKP) 2020 LIPID PROFILE (CORONARY RISK)2022-03-23 08:04:00 Test Item Value Reference Range Interpretation Comments TRIGLYCERIDES (test 162 mg/dL <150 H Please n ote: New code = TRIG) Reference Range Jun 2020 CHOLESTEROL (test 79 mg/dL <200 N Please not e: New code = CHOL) Reference Range Jun 2020 HDL CHOLESTEROL (test < 20 mg/dL <60 N Please note: New code = HDL) Reference Range Jun 2020 LIPOPROTEIN LDL (test 32 mg/dL <100 N INTERP RETATIVE code = LDLC) DATA:LDL Choles terol: Reference RangesOptimal: <100 mg/dLNear Optim al: 100 -129 mg/dLBorde rline High: 130 - 159 mg/dLHigh: 160 - 189 mg/dLVery High: = or > 190 mg/dL CORONARY RISK FACTOR 3.00 CHOL/H DL RISK MALE: (test code = RISK) 1/2 AVG 3 .43 FEMALE: 1/2 AVG 3.27 AV G 4.97 AVG 4.44 2X AVG 9.55 2X AVG 7.05 3X AVG 23.39 3X AVG 11.04~~~~~~~~~~ ~~~~~~~ ~~~~~~~~~~~~~~~ ~~~~~~~ ~~~~~~~~~~~~~~~ ~~~~~~N ational Cholest sarah Education (NCEP ) Guidelines:~~~~ ~~~~~~~ ~~~~~~~~~~~~~~~ ~~~~~~~ ~~~~~~~~~~~~~~~ ~~~~~~~ ~~~~~ HDL Cholesterol<4 0mg/dL: HDL Cholesterol (Major risk factor for CHD)>60mg/dL: H DL Cholesterol (Ne gative risk factor for CHD)40-59mg/dL: Borderline Risk LDL Cholesterol<1 00mg/dL : Desirable LDL -C [id number] 0-159mg /dL: Borderline High Risk LDL-C [id number] 0-189mg /dL: High risk LDL-C concentration H DL-LDL Cholesterol is affected by a n umber of factors such as smoking, age an d sex.~~~~~~~~~~~ ~~~~~~~ ~~~~~~~~~~~~~~~ ~~~~~~~ ~~~~~~~~~~~~~~~ ~~~~~ [id number] 08:04:00 Test Item Value Reference Range Interpretation Comments PHOSPHOROUS (test code 3.5 mg/dL 2.4-5.1 N Pleas e note: New = PHOS) Reference Range Jun 2020 [id number] 08:04:00 Test Item Value Reference Range Interpretation Comments MAGNESIUM (test code = 2.2 mg/dL 1.6-2.6 N Pleas e note: New MAG) Reference Range Jun 2020 [id number] 03:20:00 Test Item Value Reference Range Interpretation Comments GLUBED (test code = GLUBED) 155 MG/DL 70-105 H - XR CHEST 1 [id number] 08:27:00 [facility] 1945 Sex: FPatient Name: JESUS JACOBS Unit No: [id number] EXAMS: CPT CODE: [id number] XR CHEST 1 V 13080 CHEST, SINGLE VIEW LOCATION: A1 HISTORY: Shortness of breath. A single view of the chest at 5:17 AM was compared to a prior exam from March 21, 2022. FINDINGS: Bibasilar atelectasis and pleural effusions remain worse on the right. Right chest tube remains in place without pneumothorax. Upperlungs remain clear. Mild cardiomegaly and central pulmonary vascular congestion have slightly improved. Lines and tubes are stable. IMPRESSION: Slight improvement in cardiomegaly/central pulmonary vascular congestion. No other change from prior exam. at 0827 Reported and signed by: Ryder Perez Jr, MD CC: Jaime Harvey MD; Estefanía Mcdonnell Technologist: STARKS,KATIANA R.T. (R) Fluoro Time: DAP (Gy m2): Air Kerma (mGy): Trscr Dt/Tm: 03/22/2022 (0827) by:Darrell Printed Date/Time: 03/22/2022 (0831) Name: JESUS JACOBS [facility] Phys: WRIJOMaggie - SathyaEstefanía HARVEY [address] : 1945 Age: 76 Sex: [place] [address] Loc: P.0212 1 Exam Date: 03/22/2022 Status: ADM IN PH: FAX: PAGE 1 Signed [id number] 06:58:00 Test Item Value Reference Range Interpretation Comments GLUBED (test code = GLUBED) 127 MG/DL 70-105 H [id number] 05:45:00 Test Item Value Reference Range Interpretation Comments MAGNESIUM (test code = 1.8 mg/dL 1.6-2.6 N Pleas e note: New MAG) Reference Range Jun 2020 [id number] 23:44:00 Test Item Value Reference Range Interpretation Comments GLUBED (test code = GLUBED) 185 MG/DL 70-105 H [id number] 17:51:00 Test Item Value Reference Range Interpretation Comments GLUBED (test code = GLUBED) 163 MG/DL 70-105 H [id number] 12:45:00 Test Item Value Reference Range Interpretation Comments GLUBED (test code = GLUBED) 138 MG/DL 70-105 H - XR CHEST 1 [id number] 08:08:00 [facility] 1945 Sex: FPatient Name: JESUS JACOBS Unit No: [id number] EXAMS: CPT CODE: [id number] XR CHEST 1 V 30213 CHEST, SINGLE VIEW LOCATION: A1 HISTORY: Shortness of breath. A single view of the chest at 4:10 AM was compared to a prior exam from March 20, 2022. FINDINGS: Bibasilar atelectasis and pleural effusions remain worse on the right. Right chest tube remains in place without pneumothorax. Upper lungs remain clear. Mild cardiomegaly and central pulmonary vascular congestion are unchanged. Lines and tubes are stable. IMPRESSION: No change from prior exam. at 0808 Reported and signed by: Ryder Perez Jr, MD CC: Jaime Hogue; Estefanía Mcdonnell Technologist: KATIANA STARKS (R); ... Fluoro Time: DAP (Gy m2): Air Kerma ( mGy): Trscr Dt/Tm: 03/21/2022 (807) by:Darrell Printed Date/Time: 03/21/2022 (811) Name: JESUS JACOBS [facility] Phys: WREstefanía Hoang APRN [address] : 1945 Age: 76 Sex: [place] [address] Loc: P.0212 1 Exam Date: 03/21/2022 Status: ADMIN PH: FAX: PAGE 1 Signed ReportBASIC METABOLIC [id number] 04:46:00 Test Item Value Reference Range Interpretation Comments SODIUM (test code 135 mmol/L 136-145 L Please not e: New = NA) Reference Range Jun 2020 POTASSIUM (test 3.7 mmol/L 3.5-5.1 N code = K) CHLORIDE (test 102 mmol/L 98-107 N Please note: New code = CL) Reference Range Jun 2020 CARBON DIOXIDE 21 mmol/L 20-31 N Please note: New (test code = CO2) Reference Range Jun 2020 GLUCOSE (test code 172 mg/dL 74-106 H Please no te: New = GLU) Reference Range Jun 2020 BLOOD UREA 32 mg/dL 9-23 H Please note: Ne w NITROGEN (test Reference Ran ge Feb code = BUN) 2020 GLOMERULAR >=60 max >60 The Glomerular FILTRATION RATE estimate mL/min Filtratio n Rate is a (test code = GFR) calculated parameterbased on serum Creatinin e, patient age and sex. GFR valuesless than 60 mL/min/1.73 square meters are [place] cative ofChronic Kidne y Disease. Values less than 15 mL/min/1.73squa re meters indicate Kidney failure. The calculation for GFR is based on the CK D-EPI (2020) calculat ion. This formulais race indifferent and is the recommended formula for GFR by the National Kidney Foundation for Adults.The GFR will not calculate i f the sex is unknown or if thepatient's ag e is <18 years. CREATININE (test 0.80 mg/dL 0.55-1.02 N Please note : New code = CREAT) Reference Rang e Jun 2020 CALCIUM (test code 7.4 mg/dL 8.7-10.4 L Please no te: New = CA) Reference Range Jun 2020 COMPREHENSIVE METABOLIC [id number] 04:46:00 Test Item Value Reference Range Interpretation Comments TOTAL PROTEIN (test 6.7 g/dL 5.7-8.2 N Please n ote: New code = PROT) Reference Range Jun 2020 ALBUMIN (test code = 3.3 g/dL 3.2-4.8 N Please note: New ALB) Reference Range Jun 2020 BILIRUBIN TOTAL (test 0.4 mg/dL 0.3-1.2 N Please note: New code = BILT) Reference Range Jun 2020 SGOT/AST (test code = 23 U/L <34 N Please note: New AST) Reference Range Jun 2020 SGPT/ALT (test code = 16 U/L 10-49 N Please note: New ALT) Reference Range Jun 2020 ALKALINE PHOSPHATASE 113 U/L 46-116 N Please note: New (test code = ALKP) Reference Range Jun 2020 [id number] 04:46:00 Test Item Value Reference Range Interpretation Comments PHOSPHOROUS (test code 2.9 mg/dL 2.4-5.1 N Pleas e note: New = PHOS) Reference Range Jun 2020 [id number] 04:46:00 Test Item Value Reference Range Interpretation Comments MAGNESIUM (test code = 1.7 mg/dL 1.6-2.6 N Pleas e note: New MAG) Reference Range Jun 2020 [id number] 23:20:00 Test Item Value Reference Range Interpretation Comments GLUBED (test code = GLUBED) 169 MG/DL 70-105 H [id number] 18:03:00 Test Item Value Reference Range Interpretation Comments GLUBED (test code = GLUBED) 95 MG/DL 70-105 N - XR SWLW FUNC W/C [id number] 12:34:00 [facility] : 1945 Sex: FPatient Name: JESUS JACOBS Unit No: [id number] EXAMS: CPT CODE: [id number] XR SWLW FUNC W/C V 75621 EXAM: - XR SWLW FUNC W/C V DATE: 03/20/2022 9:16 AM. INDICATION: dysphagia, concerning for aspiration. COMPARISON: None available. FLUOROSCOPY Time: 1 minute and 28 seconds Dose: 6.47 FINDINGS: The patient was given various consistencies mixed with barium and fluoroscopy and selected spot images were obtained. An episode of deep penetration was noted with thin and nectar thick barium. Solid consistencies were not given. Pooling within the vallecula. No aspiration was seen. Please see the speech pathology note for further evaluation. IMPRESSION: Status post modified barium swallow. Deep penetration noted with liquid barium consistencies. Please see speech pathology notes for further details. at 1234 Reported and signed by: Deni Cross MD CC: Nito Rose MD; Jaime Harvey MD Technologist: Geronimo Soto Time: DAP (Gy m2): Air Kerma (mGy): Trscr Dt/Tm: 03/20/2022 (1234) by:[email or web address] Printed Date/Time: 03/20/2022 (7040) Name: JESUS JACOBS [facility] Phys: Nito De MD [address] : 1945 Age: 76 Sex: [place] [address] Loc: P.0212 1 Exam Date: 03/20/2022 Status: ADM IN PH: FAX: PAGE 1 Signed [id number] 10:53:00 Test Item Value Reference Range Interpretation Comments GLUBED (test code = GLUBED) 160 MG/DL 70-105 H - XR CHEST 1 [id number] 08:26:00 [facility] 1945 Sex: FPatient Name: JESUS JACOBS Unit No: [id number] EXAMS: CPT CODE: [id number] XR CHEST 1 V 90365 CHEST, SINGLE VIEW LOCATION: A1 HISTORY: Shortness of breath. A single view of the chest at 3:42 AM was compared to a prior exam from March 18, 2022. FINDINGS: Mild bibasilar atelectasis and pleural effusions are stable along with mild cardiomegaly and central pulmonary vascular congestion. Lines and tubes are unchanged. No new findings are seen. IMPRESSION: No change from the prior exam. at 08 Reported and signed by: Ryder Perez Jr, MD CC: Jaime Harvey MD; Estefanía Mcdonnell Technologist: Bárbara Aguilar RT (R), (CT) Fluoro Time: DAP (Gy m2): Air Kerma (mGy): Trscr Dt/Tm: 03/20/2022 (825) by:Darrell Printed Date/Time: 03/20/2022 (828) Name: JESUS JACOBS [facility] Phys: Estefanía Nicole APRN [address] : 1945 Age: 76 Sex: [place] [address] Loc: P.[id number] 1 Exam Date: 03/20/2022 Status: ADM IN PH: FAX: PAGE 1 Signed [id number] 05:56:00 Test Item Value Reference Range Interpretation Comments GLUBED (test code = GLUBED) 173 MG/DL 70-105 H [id number] 05:02:00 Test Item Value Reference Range Interpretation Comments POTASSIUM (test code = K) 4.0 mmol/L 3.5-5.1 N BASIC METABOLIC [id number] 02:38:00 Test Item Value Reference Range Interpretation Comments SODIUM (test code 138 mmol/L 136-145 N Please not e: New = NA) Reference Range Jun 2020 POTASSIUM (test 3.3 mmol/L 3.5-5.1 L code = K) CHLORIDE (test 103 mmol/L 98-107 N Please note: New code = CL) Reference Range Jun 2020 CARBON DIOXIDE 24 mmol/L 20-31 N Please note: New (test code = CO2) Reference Range Jun 2020 GLUCOSE (test code 120 mg/dL 74-106 H Please no te: New = GLU) Reference Range Jun 2020 BLOOD UREA 29 mg/dL 9-23 H Please note: Ne w NITROGEN (test Reference Ran ge Feb code = BUN) 2020 GLOMERULAR >=60 max >60 The Glomerular FILTRATION RATE estimate mL/min Filtratio n Rate is a (test code = GFR) calculated parameterbased on serum Creatinin e, patient age and sex. GFR valuesless than 60 mL/min/1.73 square meters are [place] cative ofChronic Kidne y Disease. Values less than 15 mL/min/1.73squa re meters indicate Kidney failure. The calculation for GFR is based on the CK D-EPI (2020) calculat ion. This formulais race indifferent and is the recommended formula for GFR by the National Kidney Foundation for Adults.The GFR will not calculate i f the sex is unknown or if thepatient's ag e is <18 years. CREATININE (test 0.70 mg/dL 0.55-1.02 N Please note : New code = CREAT) Reference Rang e Jun 2020 CALCIUM (test code 7.4 mg/dL 8.7-10.4 L Please no te: New = CA) Reference Range Jun 2020 [id number] 02:38:00 Test Item Value Reference Range Interpretation Comments PHOSPHOROUS (test code 3.1 mg/dL 2.4-5.1 N Pleas e note: New = PHOS) Reference Range Jun 2020 CBC W/AUTO [id number] 02:24:00 Test Item Value Reference Range Interpretation Comments WHITE BLOOD CELL (test code = 15.8 x10 3/uL 4.8-10.8 H WBC) RED BLOOD CELL (test code = 3.25 x10 6/uL 4.20-5.40 L RBC) HEMOGLOBIN (test code = HGB) 9.4 g/dL 12.0-16.0 L HEMATOCRIT (test code = HCT) 28.3 % 37.0-47.0 L MEAN CELL VOLUME (test code = 87.1 fL 81.0-99.0 N MCV) MEAN CELL HGB (test code = 28.9 pg 27-31 N MCH) MEAN CELL HGB CONCENTRATION 33.2 G/DL 33-36.5 N (test code = MCHC) RED CELL DISTRIBUTION WIDTH 17.2 % 12.9-16.9 H (test code = RDW) PLATELET COUNT (test code = 481 x10 3/uL 150-440 H PLT) MEAN PLATELET VOLUME (test 10.2 fL 8.9-12.4 N code = MPV) NEUTROPHIL % (test code = NT%) 69.6 % 42.2-75.2 N LYMPHOCYTE % (test code = LY%) 13.9 % 20.5-51.1 L MONOCYTE % (test code = MO%) 12.1 % 1.7-9.3 H EOSINOPHIL % (test code = EO%) 0.1 % 0.0-7.0 N BASOPHIL % (test code = BA%) 0.4 % 0-2.5 N NEUTROPHIL # (test code = NT#) 11.00 x10 3/uL 1.80-7.70 H LYMPHOCYTE # (test code = LY#) 2.20 x10 3/uL 1.00-4.80 N MONOCYTE # (test code = MO#) 1.92 x10 3/uL 0.00-0.80 H EOSINOPHIL # (test code = EO#) 0.01 x10 3/uL 0.00-0.45 N BASOPHIL # (test code = BA#) 0.07 x10 3/uL 0.0-0.20 N [id number] 23:27:00 Test Item Value Reference Range Interpretation Comments GLUBED (test code = GLUBED) 171 MG/DL 70-105 H [id number] 17:43:00 Test Item Value Reference Range Interpretation Comments GLUBED (test code = GLUBED) 173 MG/DL 70-105 H [id number] 12:11:00 Test Item Value Reference Range Interpretation Comments GLUBED (test code = GLUBED) 148 MG/DL 70-105 H [id number] 05:45:00 Test Item Value Reference Range Interpretation Comments GLUBED (test code = GLUBED) 157 MG/DL 70-105 H BASIC METABOLIC [id number] 04:14:00 Test Item Value Reference Range Interpretation Comments SODIUM (test code 137 mmol/L 136-145 N Please not e: New = NA) Reference Range Jun 2020 POTASSIUM (test 3.3 mmol/L 3.5-5.1 L code = K) CHLORIDE (test 102 mmol/L 98-107 N Please note: New code = CL) Reference Range Jun 2020 CARBON DIOXIDE 21 mmol/L 20-31 N Please note: New (test code = CO2) Reference Range Jun 2020 GLUCOSE (test code 204 mg/dL 74-106 H Please no te: New = GLU) Reference Range Jun 2020 BLOOD UREA 28 mg/dL 9-23 H Please note: Ne w NITROGEN (test Reference Ran ge Feb code = BUN) 2020 GLOMERULAR >=60 max >60 The Glomerular FILTRATION RATE estimate mL/min Filtratio n Rate is a (test code = GFR) calculated parameterbased on serum Creatinin e, patient age and sex. GFR valuesless than 60 mL/min/1.73 square meters are [place] cative ofChronic Kidne y Disease. Values less than 15 mL/min/1.73squa re meters indicate Kidney failure. The calculation for GFR is based on the CK D-EPI (2020) calculat ion. This formulais race indifferent and is the recommended formula for GFR by the National Kidney Foundation for Adults.The GFR will not calculate i f the sex is unknown or if thepatient's ag e is <18 years. CREATININE (test 0.70 mg/dL 0.55-1.02 N Please note : New code = CREAT) Reference Rang e Jun 2020 CALCIUM (test code 7.4 mg/dL 8.7-10.4 L Please no te: New = CA) Reference Range Jun 2020 COMPREHENSIVE METABOLIC [id number] 04:14:00 Test Item Value Reference Range Interpretation Comments TOTAL PROTEIN (test 6.6 g/dL 5.7-8.2 N Please n ote: New code = PROT) Reference Range Jun 2020 ALBUMIN (test code = 3.3 g/dL 3.2-4.8 N Please note: New ALB) Reference Range Jun 2020 BILIRUBIN TOTAL (test 0.4 mg/dL 0.3-1.2 N Please note: New code = BILT) Reference Range Jun 2020 SGOT/AST (test code = 21 U/L <34 N Please note: New AST) Reference Range Jun 2020 SGPT/ALT (test code = 16 U/L 10-49 N Please note: New ALT) Reference Range Jun 2020 ALKALINE PHOSPHATASE 104 U/L 46-116 N Please note: New (test code = ALKP) Reference Range Jun 2020 [id number] 04:14:00 Test Item Value Reference Range Interpretation Comments PHOSPHOROUS (test code 2.8 mg/dL 2.4-5.1 N Pleas e note: New = PHOS) Reference Range Jun 2020 [id number] 04:14:00 Test Item Value Reference Range Interpretation Comments MAGNESIUM (test code = 1.7 mg/dL 1.6-2.6 N Pleas e note: New MAG) Reference Range Jun 2020 CBC W/AUTO [id number] 03:57:00 Test Item Value Reference Range Interpretation Comments WHITE BLOOD CELL (test code = 14.2 x10 3/uL 4.8-10.8 H WBC) RED BLOOD CELL (test code = 3.19 x10 6/uL 4.20-5.40 L RBC) HEMOGLOBIN (test code = HGB) 9.2 g/dL 12.0-16.0 L HEMATOCRIT (test code = HCT) 27.5 % 37.0-47.0 L MEAN CELL VOLUME (test code = 86.2 fL 81.0-99.0 N MCV) MEAN CELL HGB (test code = 28.8 pg 27-31 N MCH) MEAN CELL HGB CONCENTRATION 33.5 G/DL 33-36.5 N (test code = MCHC) RED CELL DISTRIBUTION WIDTH 16.7 % 12.9-16.9 N (test code = RDW) PLATELET COUNT (test code = 500 x10 3/uL 150-440 H PLT) MEAN PLATELET VOLUME (test 10.4 fL 8.9-12.4 N code = MPV) NEUTROPHIL % (test code = NT%) 73.5 % 42.2-75.2 N LYMPHOCYTE % (test code = LY%) 10.6 % 20.5-51.1 L MONOCYTE % (test code = MO%) 11.0 % 1.7-9.3 H EOSINOPHIL % (test code = EO%) 0.1 % 0.0-7.0 N BASOPHIL % (test code = BA%) 0.5 % 0-2.5 N NEUTROPHIL # (test code = NT#) 10.40 x10 3/uL 1.80-7.70 H LYMPHOCYTE # (test code = LY#) 1.50 x10 3/uL 1.00-4.80 N MONOCYTE # (test code = MO#) 1.55 x10 3/uL 0.00-0.80 H EOSINOPHIL # (test code = EO#) 0.02 x10 3/uL 0.00-0.45 N BASOPHIL # (test code = BA#) 0.07 x10 3/uL 0.0-0.20 N [id number] 00:03:00 Test Item Value Reference Range Interpretation Comments GLUBED (test code = GLUBED) 148 MG/DL 70-105 H [id number] 18:23:00 Test Item Value Reference Range Interpretation Comments GLUBED (test code = GLUBED) 181 MG/DL 70-105 H [id number] 13:26:00 Test Item Value Reference Range Interpretation Comments GLUBED (test code = GLUBED) 182 MG/DL 70-105 H - XR CHEST 1 [id number] 07:55:00 [facility] 1945 Sex: FPatient Name: JESUS JACOBS Unit No: [id number] EXAMS: CPT CODE: [id number] XR CHEST 1 V 97798 Location Code: H 31 CHEST AP HISTORY: Dyspnea COMPARISON: Chest radiograph from prior day FINDINGS: Small to moderate bilateral pleural effusions are redemonstrated with bibasilar atelectasis. Pigtail right chest tube is at the right base. Cardiomediastinal silhouette is stable with dual lead pacemaker. NG tube terminates in the stomach. Right subclavian catheter tip is at the cavoatrial junction. Other leads and wires superimposed the patient. IMPRESSION: Small to moderate bilateral pleuraleffusions. at 0755 Reported and signed by: KECIA BAHENA M.D. CC: Jaime Harvey MD; Estefanía Mcdonnell Technologist: Dipti Funk Fluoro Time: DAP (Gy m2): Air Kerma (mGy): Trscr Dt/Tm: 03/18/2022 (0755) by:[email or web address] Printed Date/Time: 03/18/2022 (0755) Name: JESUS JACOBS [facility] Phys: Estefanía Nicole APRN [address] : 1945 Age: 76 Sex: [place] [address] Loc: P.0212 1 Exam Date: 03/18/2022 Status: ADM IN PH: FAX: PAGE 1 Signed [id number] 05:24:00 Test Item Value Reference Range Interpretation Comments GLUBED (test code = GLUBED) 210 MG/DL 70-105 H BASIC METABOLIC [id number] 04:04:00 Test Item Value Reference Range Interpretation Comments SODIUM (test code 139 mmol/L 136-145 N Please not e: New = NA) Reference Range Jun 2020 POTASSIUM (test 3.3 mmol/L 3.5-5.1 L code = K) CHLORIDE (test 105 mmol/L 98-107 N Please note: New code = CL) Reference Range Jun 2020 CARBON DIOXIDE 23 mmol/L 20-31 N Please note: New (test code = CO2) Reference Range Jun 2020 GLUCOSE (test code 153 mg/dL 74-106 H Please no te: New = GLU) Reference Range Jun 2020 BLOOD UREA 22 mg/dL 9-23 N Please note: Ne w NITROGEN (test Reference Ran ge Feb code = BUN) 2020 GLOMERULAR >=60 max >60 The Glomerular FILTRATION RATE estimate mL/min Filtratio n Rate is a (test code = GFR) calculated parameterbased on serum Creatinin e, patient age and sex. GFR valuesless than 60 mL/min/1.73 square meters are [place] cative ofChronic Kidne y Disease. Values less than 15 mL/min/1.73squa re meters indicate Kidney failure. The calculation for GFR is based on the CK D-EPI (2020) calculat ion. This formulais race indifferent and is the recommended formula for GFR by the National Kidney Foundation for Adults.The GFR will not calculate i f the sex is unknown or if thepatient's ag e is <18 years. CREATININE (test 0.80 mg/dL 0.55-1.02 N Please note : New code = CREAT) Reference Rang e Jun 2020 CALCIUM (test code 7.6 mg/dL 8.7-10.4 L Please no te: New = CA) Reference Range Jun 2020 [id number] 04:04:00 Test Item Value Reference Range Interpretation Comments MAGNESIUM (test code = 1.9 mg/dL 1.6-2.6 N Pleas e note: New MAG) Reference Range Jun 2020 CBC W/AUTO [id number] 03:43:00 Test Item Value Reference Range Interpretation Comments WHITE BLOOD CELL (test code = 14.4 x10 3/uL 4.8-10.8 H WBC) RED BLOOD CELL (test code = 3.20 x10 6/uL 4.20-5.40 L RBC) HEMOGLOBIN (test code = HGB) 9.2 g/dL 12.0-16.0 L HEMATOCRIT (test code = HCT) 27.8 % 37.0-47.0 L MEAN CELL VOLUME (test code = 86.9 fL 81.0-99.0 N MCV) MEAN CELL HGB (test code = 28.8 pg 27-31 N MCH) MEAN CELL HGB CONCENTRATION 33.1 G/DL 33-36.5 N (test code = MCHC) RED CELL DISTRIBUTION WIDTH 16.6 % 12.9-16.9 N (test code = RDW) PLATELET COUNT (test code = 484 x10 3/uL 150-440 H PLT) MEAN PLATELET VOLUME (test 10.1 fL 8.9-12.4 N code = MPV) NEUTROPHIL % (test code = NT%) 75.0 % 42.2-75.2 N LYMPHOCYTE % (test code = LY%) 10.6 % 20.5-51.1 L MONOCYTE % (test code = MO%) 11.6 % 1.7-9.3 H EOSINOPHIL % (test code = EO%) 0.1 % 0.0-7.0 N BASOPHIL % (test code = BA%) 0.5 % 0-2.5 N NEUTROPHIL # (test code = NT#) 10.77 x10 3/uL 1.80-7.70 H LYMPHOCYTE # (test code = LY#) 1.52 x10 3/uL 1.00-4.80 N MONOCYTE # (test code = MO#) 1.66 x10 3/uL 0.00-0.80 H EOSINOPHIL # (test code = EO#) 0.02 x10 3/uL 0.00-0.45 N BASOPHIL # (test code = BA#) 0.07 x10 3/uL 0.0-0.20 N [id number] 00:27:00 Test Item Value Reference Range Interpretation Comments GLUBED (test code = GLUBED) 179 MG/DL 70-105 H Vancomycin [id number] 14:09:00 Test Item Value Reference Range Interpretation Comments Vancomycin AUC2 (test code = 13.5 mcg/mL 10-20 N VANCAUC2) BLOOD GAS [id number] 12:22:00 Test Item Value Reference Range Interpretation Comments ARTERIAL BLOOD GAS PH 7.39 7.35-7.45 N (test code = PHA) ARTERIAL BLOOD GAS PCO2 34.9 mmHg 35.0-45.0 L (test code = PCO2A) ARTERIAL BLOOD GAS PO2 123.2 mmHg 80.0-95.0 H (test code = PO2A) BICARBONATE TOTAL HCO3 20.7 mmol/L 22.0-24.0 L (test code = HCO3) BASE EXCESS (test code -3.6 mmol/L See_Comment L [Aut omated = CINTHIA) message] The system which generated this result transmitted reference range : (+/-)2.0. The reference range was not used to interpret this result as normal/abnormal . ABG O2 SATURATION (test 98.3 % 95.0-100.0 N code = SATA) ARTERIAL FIO2 (test 30.0 % code = FIO2A) ABG VENT MODE (test ASSIST CONTROL code = MODEA) ALLENS TEST (test code NOT APPLICAPLE = ALLENS) SODIUM (POC) (test code 138 mmol/L 135-147 N = NA/ABG) POTASSIUM (POC) (test 4.11 mmol/L 3.6-5.2 N code = K/ABG) CHLORIDE (ARTERIAL) 111 mmol/L 98-108 H (test code = CL/ABG) GLUCOSE (test code = 108 mg/dL 70-104 H GLU/ABG) IONIZED CALCIUM (test 1.00 mmol/L 1.12-1.32 L code = CAIABG) POC LACTIC ACID (test 1.31 mmol/L 0.5-2.2 N code = POCLAC) TOTAL HGB (test code = 10.2 g/dL 12.0-16.0 L THB) CARBOXYHEMOGLOBIN (test 0.0 % 0-5.0 N code = HOHGBT) METHEMOGLOBIN (test <0.8 % 0-1.5 N code = METHGB) HHb (test code = HHB) 1.7 % TCO2 ARTERIAL (test 21.8 MMOL/L 24-30 L code = TCO2A) - XR CHEST 1 [id number] 08:04:00 [facility] 1945 Sex: FPatient Name: JESUS JACOBS Unit No: [id number] EXAMS: CPT CODE: [id number] XR CHEST 1 V 77345 CHEST, SINGLE VIEW LOCATION: H 30 HISTORY: Shortness of breath. A single view of the chest at 4:49 AM was compared to a prior exam from March 16, 2022. FINDINGS: Bibasilar infiltrative/atelectatic changes and pleural effusions are stable along with mild cardiomegaly and central pulmonary vascular congestion. Lines and tubes are unchanged. No new findings are seen. IMPRESSION: No change from the prior exam. at 0804 Reported and signed by: Ryder Perez Jr, MD CC: Jaime Harvey MD; Estefanía Mcdonnell Technologist: OSCAR Soto Time: DAP (Gy m2): Air Kerma (mGy): Trscr Dt/Tm: 03/17/2022 (0804) by:YimiFAMPrinted Date/Time: 03/17/2022 (0807) Name: JESUS JACOBS [facility] Phys: [id number] -Estefanía Mcdonnell APRN [address] : 1945 Age: 76 Sex: [place] [address] Loc: P.0212 1 Exam Date: 03/17/2022 Status: ADM IN PH: FAX: PAGE 1 Signed ReportMAGNESIUM 2022-03-17 07:59:00 Test Item Value Reference Range Interpretation Comments MAGNESIUM (test code = 1.9 mg/dL 1.6-2.6 N Pleas e note: New MAG) Reference Range Jun 2020 BASIC METABOLIC [id number] 05:50:00 Test Item Value Reference Range Interpretation Comments SODIUM (test code 143 mmol/L 136-145 N Please not e: New = NA) Reference Range Jun 2020 POTASSIUM (test 3.5 mmol/L 3.5-5.1 N code = K) CHLORIDE (test 104 mmol/L 98-107 N Please note: New code = CL) Reference Range Jun 2020 CARBON DIOXIDE 24 mmol/L 20-31 N Please note: New (test code = CO2) Reference Range Jun 2020 GLUCOSE (test code 160 mg/dL 74-106 H Please no te: New = GLU) Reference Range Jun 2020 BLOOD UREA 22 mg/dL 9-23 N Please note: Ne w NITROGEN (test Reference Ran ge Feb code = BUN) 2020 GLOMERULAR >=60 max >60 Units are FILTRATION RATE estimate mL/min mL/min/1. 73m2 The (test code = GFR) estimated glomerular filtration rate is computed usingpatient ra ce, age (>18), sex, and serum creatinin e. If anyof the neede d data elements a re missing the Laboratory marcos ot compute an estimation of t he glomerular filtration rate . CREATININE (test 0.80 mg/dL 0.55-1.02 N Please note : New code = CREAT) Reference Rang e Jun 2020 CALCIUM (test code 8.1 mg/dL 8.7-10.4 L Please no te: New = CA) Reference Range Jun 2020 COMPREHENSIVE METABOLIC [id number] 05:50:00 Test Item Value Reference Range Interpretation Comments TOTAL PROTEIN (test 6.4 g/dL 5.7-8.2 N Please n ote: New code = PROT) Reference Range Jun 2020 ALBUMIN (test code = 3.1 g/dL 3.2-4.8 L Please note: New ALB) Reference Range Jun 2020 BILIRUBIN TOTAL (test 0.4 mg/dL 0.3-1.2 N Please note: New code = BILT) Reference Range Jun 2020 SGOT/AST (test code = 22 U/L <34 N Please note: New AST) Reference Range Jun 2020 SGPT/ALT (test code = 18 U/L 10-49 N Please note: New ALT) Reference Range Jun 2020 ALKALINE PHOSPHATASE 89 U/L 46-116 N Please note: New (test code = ALKP) Reference Range Jun 2020 [id number] 05:50:00 Test Item Value Reference Range Interpretation Comments PHOSPHOROUS (test code 2.7 mg/dL 2.4-5.1 N Pleas e note: New = PHOS) Reference Range Jun 2020 [id number] 05:33:00 Test Item Value Reference Range Interpretation Comments GLUBED (test code = GLUBED) 169 MG/DL 70-105 H CBC W/AUTO [id number] 05:33:00 Test Item Value Reference Range Interpretation Comments WHITE BLOOD CELL (test code = 12.9 x10 3/uL 4.8-10.8 H WBC) RED BLOOD CELL (test code = 3.09 x10 6/uL 4.20-5.40 L RBC) HEMOGLOBIN (test code = HGB) 8.9 g/dL 12.0-16.0 L HEMATOCRIT (test code = HCT) 26.8 % 37.0-47.0 L MEAN CELL VOLUME (test code = 86.7 fL 81.0-99.0 N MCV) MEAN CELL HGB (test code = MCH) 28.8 pg 27-31 N MEAN CELL HGB CONCENTRATION 33.2 G/DL 33-36.5 N (test code = MCHC) RED CELL DISTRIBUTION WIDTH 16.2 % 12.9-16.9 N (test code = RDW) PLATELET COUNT (test code = 504 x10 3/uL 150-440 H PLT) MEAN PLATELET VOLUME (test code 10.8 fL 8.9-12.4 N = MPV) NEUTROPHIL % (test code = NT%) 73.9 % 42.2-75.2 N LYMPHOCYTE % (test code = LY%) 9.8 % 20.5-51.1 L MONOCYTE % (test code = MO%) 14.3 % 1.7-9.3 H EOSINOPHIL % (test code = EO%) 0.2 % 0.0-7.0 N BASOPHIL % (test code = BA%) 0.2 % 0-2.5 N NEUTROPHIL # (test code = NT#) 9.56 x10 3/uL 1.80-7.70 H LYMPHOCYTE # (test code = LY#) 1.27 x10 3/uL 1.00-4.80 N MONOCYTE # (test code = MO#) 1.85 x10 3/uL 0.00-0.80 H EOSINOPHIL # (test code = EO#) 0.02 x10 3/uL 0.00-0.45 N BASOPHIL # (test code = BA#) 0.03 x10 3/uL 0.0-0.20 N [id number] 18:06:00 Test Item Value Reference Range Interpretation Comments MAGNESIUM (test code = 1.5 mg/dL 1.6-2.6 L Pleas e note: New MAG) Reference Range Jun 2020 Vancomycin [id number] 18:06:00 Test Item Value Reference Range Interpretation Comments Vancomycin AUC1 (test code = 25.3 mcg/mL 20-60 N VANCAUC1) [id number] 16:53:00 Test Item Value Reference Range Interpretation Comments GLUBED (test code = GLUBED) 180 MG/DL 70-105 H [id number] 11:27:00 Test Item Value Reference Range Interpretation Comments GLUBED (test code = GLUBED) 192 MG/DL 70-105 H - XR CHEST 1 [id number] 07:55:00 [facility] 1945 Sex: FPatient Name: JESUS JACOBS Unit No: [id number] EXAMS: CPT CODE: [id number] XR CHEST 1 V 47373 CHEST, SINGLE VIEW LOCATION: H 30 HISTORY: Shortness of breath. A single view of the chest at 4:20 AM was compared to a prior exam from March 15, 2022. FINDINGS: Bibasilar infiltrative/atelectatic changes and pleural effusions are stable along with mild cardiomegaly and central pulmonary vascular congestion. Lines and tubes are unchanged. No new findings are seen. IMPRESSION: No change fromthe prior exam. at 0755 Reported and signed by: Ryder Perez Jr, MD CC: Jaime Harvey MD; Estefanía Mcdonnell Technologist: Dipti Funk Fluoro Time: DAP (Gy m2): Air Kerma (mGy): Trscr Dt/Tm: 03/16/2022 (0755) by:Darrell Printed Date/Time: 03/16/2022 (0759) Name: JESUS JACOBS [facility] Phys: Estefanía Herrera APRN [address] : 1945 Age: 76 Sex: [place] [address] Loc: P.0212 1 Exam Date: 03/16/2022 Status: ADM IN PH: FAX: PAGE 1 Signed ReportBASIC METABOLIC PANEL 2022-03-16 03:41:00 Test Item Value Reference Range Interpretation Comments SODIUM (test code 139 mmol/L 136-145 N Please not e: New = NA) Reference Range Jun 2020 POTASSIUM (test 3.7 mmol/L 3.5-5.1 N code = K) CHLORIDE (test 103 mmol/L 98-107 N Please note: New code = CL) Reference Range Jun 2020 CARBON DIOXIDE 26 mmol/L 20-31 N Please note: New (test code = CO2) Reference Range Jun 2020 GLUCOSE (test code 169 mg/dL 74-106 H Please no te: New = GLU) Reference Range Jun 2020 BLOOD UREA 13 mg/dL 9-23 N Please note: Ne w NITROGEN (test Reference Ran ge Feb code = BUN) 2020 GLOMERULAR >=60 max >60 Units are FILTRATION RATE estimate mL/min mL/min/1. 73m2 The (test code = GFR) estimated glomerular filtration rate is computed usingpatient ra ce, age (>18), sex, and serum creatinin e. If anyof the neede d data elements a re missing the Laboratory marcos ot compute an estimation of t he glomerular filtration rate . CREATININE (test 0.80 mg/dL 0.55-1.02 N Please note : New code = CREAT) Reference Rang e Jun 2020 CALCIUM (test code 8.0 mg/dL 8.7-10.4 L Please no te: New = CA) Reference Range Jun 2020 [id number] 03:41:00 Test Item Value Reference Range Interpretation Comments PHOSPHOROUS (test code 2.9 mg/dL 2.4-5.1 N Pleas e note: New = PHOS) Reference Range Jun 2020 [id number] 18:18:00 Test Item Value Reference Range Interpretation Comments POTASSIUM (test code = K) 4.0 mmol/L 3.5-5.1 N [id number] 16:50:00 Test Item Value Reference Range Interpretation Comments GLUBED (test code = GLUBED) 117 MG/DL 70-105 H [id number] 11:58:00 Test Item Value Reference Range Interpretation Comments GLUBED (test code = GLUBED) 122 MG/DL 70-105 H - XR CHEST 1 [id number] 07:57:00 [facility] 1945 Sex: FPatient Name: JESUS JACOBS Unit No: [id number] EXAMS: CPT CODE: [id number] XR CHEST 1 V 66111 EXAM: XR Chest 1 View INDICATION: FOLLOW UP LOCATION: A1 COMPARISON: Chest radiograph dated 03/14/2022 TECHNIQUE: Frontal view of the chest was obtained. FINDINGS: Life support lines and tubes are in unchanged placement. Right pleural effusion and underlying right basilar airspace opacities are unchanged from prior. Left lung is clear. No pneumothorax is seen. The cardiomediastinal silhouette is unchanged. No acute osseous abnormality is identified. IMPRESSION: No significant change from prior. at 0757 Reported and signed by: MAMTA ARIAS M.D. CC: Yadiel Carrion DO; Jaime Harvey MD Technologist: Bárbara Aguilar RT (R), (CT) Fluoro Time: DAP (Gy m2): Air Kerma (mGy): Trscr Dt/Tm: 03/15/2022 (0757) by:[email or web address] Printed Date/Time: 03/15/2022 (08) Name: JESUS JACOBS [facility] Phys:Yadiel Solorio [address] : 1945 Age: 76 Sex: [place] [id number] Loc: P.[id number] 1 Exam Date: 03/15/2022 Status: ADM IN PH: FAX: PAGE 1 Signed [id number] 06:02:00 Test Item Value Reference Range Interpretation Comments GLUBED (test code = GLUBED) 169 MG/DL 70-105 H COMPREHENSIVE METABOLIC [id number] 03:49:00 Test Item Value Reference Range Interpretation Comments SODIUM (test code = 143 mmol/L 136-145 N Please n ote: New NA) Reference Range Jun 2020 POTASSIUM (test 3.5 mmol/L 3.5-5.1 N code = K) CHLORIDE (test code 108 mmol/L 98-107 H Please n ote: New = CL) Reference Range Jun 2020 CARBON DIOXIDE 25 mmol/L 20-31 N Please note: New (test code = CO2) Reference Range Jun 2020 GLUCOSE (test code 161 mg/dL 74-106 H Please no te: New = GLU) Reference Range Jun 2020 BLOOD UREA NITROGEN 14 mg/dL 9-23 N Please n ote: New (test code = BUN) Reference Range Jun 2020 GLOMERULAR >=60 max >60 Units are FILTRATION RATE estimate mL/min mL/min/1. 73m2 The (test code = GFR) estimated glomerular filtration rate is computed usingpatient ra ce, age (>18), sex, and serum creatinin e. If anyof the ne eded data elements a re missing the Laboratory marcos ot compute an estimation of t he glomerular filtration rate . CREATININE (test 0.70 mg/dL 0.55-1.02 N Please note : New code = CREAT) Reference Rang e Jun 2020 TOTAL PROTEIN (test 5.4 g/dL 5.7-8.2 L Please n ote: New code = PROT) Reference Range Jun 2020 ALBUMIN (test code 2.7 g/dL 3.2-4.8 L Please no te: New = ALB) Reference Range Jun 2020 CALCIUM (test code 7.2 mg/dL 8.7-10.4 L Please no te: New = CA) Reference Range Jun 2020 BILIRUBIN TOTAL 0.5 mg/dL 0.3-1.2 N Please note: New (test code = BILT) Reference Range Jun 2020 SGOT/AST (test code 22 U/L <34 N Please n ote: New = AST) Reference Range Jun 2020 SGPT/ALT (test code 17 U/L 10-49 N Please n ote: New = ALT) Reference Range Jun 2020 ALKALINE 88 U/L 46-116 N Please note: Ne w PHOSPHATASE (test Reference Range Feb code = ALKP) 2020 [id number] 03:49:00 Test Item Value Reference Range Interpretation Comments PHOSPHOROUS (test code 2.9 mg/dL 2.4-5.1 N Pleas e note: New = PHOS) Reference Range Jun 2020 [id number] 03:49:00 Test Item Value Reference Range Interpretation Comments MAGNESIUM (test code = 1.9 mg/dL 1.6-2.6 N Pleas e note: New MAG) Reference Range Jun 2020 CBC W/AUTO [id number] 03:31:00 Test Item Value Reference Range Interpretation Comments WHITE BLOOD CELL (test code = 10.8 x10 3/uL 4.8-10.8 N WBC) RED BLOOD CELL (test code = 2.61 x10 6/uL 4.20-5.40 L RBC) HEMOGLOBIN (test code = HGB) 7.6 g/dL 12.0-16.0 L HEMATOCRIT (test code = HCT) 23.3 % 37.0-47.0 L MEAN CELL VOLUME (test code = 89.3 fL 81.0-99.0 N MCV) MEAN CELL HGB (test code = MCH) 29.1 pg 27-31 N MEAN CELL HGB CONCENTRATION 32.6 G/DL 33-36.5 L (test code = MCHC) RED CELL DISTRIBUTION WIDTH 16.3 % 12.9-16.9 N (test code = RDW) PLATELET COUNT (test code = 414 x10 3/uL 150-440 N PLT) MEAN PLATELET VOLUME (test code 10.7 fL 8.9-12.4 N = MPV) NEUTROPHIL % (test code = NT%) 78.6 % 42.2-75.2 H LYMPHOCYTE % (test code = LY%) 7.4 % 20.5-51.1 L MONOCYTE % (test code = MO%) 13.1 % 1.7-9.3 H EOSINOPHIL % (test code = EO%) 0.1 % 0.0-7.0 N BASOPHIL % (test code = BA%) 0.2 % 0-2.5 N NEUTROPHIL # (test code = NT#) 8.51 x10 3/uL 1.80-7.70 H LYMPHOCYTE # (test code = LY#) 0.80 x10 3/uL 1.00-4.80 L MONOCYTE # (test code = MO#) 1.42 x10 3/uL 0.00-0.80 H EOSINOPHIL # (test code = EO#) 0.01 x10 3/uL 0.00-0.45 N BASOPHIL # (test code = BA#) 0.02 x10 3/uL 0.0-0.20 N [id number] 23:58:00 Test Item Value Reference Range Interpretation Comments GLUBED (test code = GLUBED) 149 MG/DL 70-105 H [id number] 17:54:00 Test Item Value Reference Range Interpretation Comments GLUBED (test code = GLUBED) 132 MG/DL 70-105 H VENOUS BLOOD [id number] 17:33:00 Test Item Value Reference Range Interpretation Comments VENOUS BLOOD GAS PH 7.40 7.35-7.45 N (test code = PHV) VENOUS BLOOD GAS 37.5 mmHg See_Comment [Automated message] PCO2 (test code = The system which PCO2V) generated this result transmitted ref erence range: 46. The reference range was not used to interpr et this result as normal/abnormal . VENOUS BLOOD GAS 35.7 mmHg See_Comment [Automated message] PO2 (test code = The system which PO2V) generated this result transmitted ref erence range: 40. The reference range was not used to interpr et this result as normal/abnormal . VBG HCO3 (test code 23 meq/L = HCO3V) VBG BASE EXCESS -2.0 MMOL/L (test code = YVETTE) VENOUS BLOOD GAS O2 69 % See_Comment [Automa son message] SAT (test code = The system which O2SATV) generated this result transmitted ref erence range: 75. The reference range was not used to interpr et this result as normal/abnormal . VENOUS BLOOD GAS Venous TYPE (test code = TYPEV) VENOUS BLOOD GAS 28.0 % FIO2 (test code = FIO2V) VENOUS BLOOD GAS 2.00 L/min L/MIN (test code = L/MV) VBG VENT MODE (test NC code = MODEV) [id number] 11:54:00 Test Item Value Reference Range Interpretation Comments GLUBED (test code = GLUBED) 123 MG/DL 70-105 H - XR CHEST 1 [id number] 10:21:00 [facility] 1945 Sex: FPatient Name: JESUS JACOBS Unit No: [id number] EXAMS: CPT CODE: [id number] XR CHEST 1 V [id number] EXAM: XR Chest 1 View INDICATION: Acute resp insufficiency LOCATION: A1 COMPARISON: Chest radiograph dated 03/13/2022 TECHNIQUE: Frontal view of the chest was obtained. FINDINGS: Life support lines and tubes are in unchanged placement. Right pleural effusion and underlying right airspace opacities are unchanged from prior. No pneumothorax is seen. The cardiomediastinal silhouette is unchanged. No acute osseous abnormality is identified. IMPRESSION: No significant change from prior. at 1021 Reported and signed by: MAMTA ARIAS M.D. CC: Jaime Harvey MD; Hernán Ford MD Technologist: Mj Soto Time: DAP (Gy m2): Air Kerma (mGy): Trscr Dt/Tm: 03/14/2022 (1021) by:[email or web address] Printed Date/Time: 03/14/2022 (1024) Name: JESUS JACOBS [facility] Phys: Hernán Ramos MD [address] : 1945 Age: 76 Sex: [place] [address] [facility] No: [id number] Loc: P.[id number] 1 Exam Date: 03/14/2022 Status: ADM IN PH: FAX: PAGE 1 Signed ReportGLUBED 2022-03-14 05:43:00 Test Item Value Reference Range Interpretation Comments GLUBED (test code = GLUBED) 121 MG/DL 70-105 H BASIC METABOLIC [id number] 04:05:00 Test Item Value Reference Range Interpretation Comments SODIUM (test code 141 mmol/L 136-145 N Please not e: New = NA) Reference Range Jun 2020 POTASSIUM (test 4.0 mmol/L 3.5-5.1 N code = K) CHLORIDE (test 111 mmol/L 98-107 H Please note: New code = CL) Reference Range Jun 2020 CARBON DIOXIDE 24 mmol/L 20-31 N Please note: New (test code = CO2) Reference Range Jun 2020 GLUCOSE (test code 116 mg/dL 74-106 H Please no te: New = GLU) Reference Range Jun 2020 BLOOD UREA 20 mg/dL 9-23 N Please note: Ne w NITROGEN (test Reference Ran ge Feb code = BUN) 2020 GLOMERULAR >=60 max >60 Units are FILTRATION RATE estimate mL/min mL/min/1. 73m2 The (test code = GFR) estimated glomerular filtration rate is computed usingpatient ra ce, age (>18), sex, and serum creatinin e. If anyof the neede d data elements a re missing the Laboratory marcos ot compute an estimation of t he glomerular filtration rate . CREATININE (test 0.80 mg/dL 0.55-1.02 N Please note : New code = CREAT) Reference Rang e Jun 2020 CALCIUM (test code 7.1 mg/dL 8.7-10.4 L Please no te: New = CA) Reference Range Jun 2020 [id number] 04:05:00 Test Item Value Reference Range Interpretation Comments PHOSPHOROUS (test code 3.7 mg/dL 2.4-5.1 N Pleas e note: New = PHOS) Reference Range Jun 2020 [id number] 04:05:00 Test Item Value Reference Range Interpretation Comments MAGNESIUM (test code = 1.9 mg/dL 1.6-2.6 N Pleas e note: New MAG) Reference Range Jun 2020 CBC W/AUTO [id number] 03:54:00 Test Item Value Reference Range Interpretation Comments WHITE BLOOD CELL (test code = 12.4 x10 3/uL 4.8-10.8 H WBC) RED BLOOD CELL (test code = 2.84 x10 6/uL 4.20-5.40 L RBC) HEMOGLOBIN (test code = HGB) 8.2 g/dL 12.0-16.0 L HEMATOCRIT (test code = HCT) 26.0 % 37.0-47.0 L MEAN CELL VOLUME (test code = 91.5 fL 81.0-99.0 N MCV) MEAN CELL HGB (test code = 28.9 pg 27-31 N MCH) MEAN CELL HGB CONCENTRATION 31.5 G/DL 33-36.5 L (test code = MCHC) RED CELL DISTRIBUTION WIDTH 16.8 % 12.9-16.9 N (test code = RDW) PLATELET COUNT (test code = 410 x10 3/uL 150-440 N PLT) MEAN PLATELET VOLUME (test 11.3 fL 8.9-12.4 N code = MPV) NEUTROPHIL % (test code = NT%) 82.2 % 42.2-75.2 H LYMPHOCYTE % (test code = LY%) 8.5 % 20.5-51.1 L MONOCYTE % (test code = MO%) 8.2 % 1.7-9.3 N EOSINOPHIL % (test code = EO%) 0.3 % 0.0-7.0 N BASOPHIL % (test code = BA%) 0.2 % 0-2.5 N NEUTROPHIL # (test code = NT#) 10.21 x10 3/uL 1.80-7.70 H LYMPHOCYTE # (test code = LY#) 1.06 x10 3/uL 1.00-4.80 N MONOCYTE # (test code = MO#) 1.02 x10 3/uL 0.00-0.80 H EOSINOPHIL # (test code = EO#) 0.04 x10 3/uL 0.00-0.45 N BASOPHIL # (test code = BA#) 0.02 x10 3/uL 0.0-0.20 N [id number] 23:58:00 Test Item Value Reference Range Interpretation Comments GLUBED (test code = GLUBED) 108 MG/DL 70-105 H [id number] 17:39:00 Test Item Value Reference Range Interpretation Comments GLUBED (test code = GLUBED) 109 MG/DL 70-105 H [id number] 11:45:00 Test Item Value Reference Range Interpretation Comments GLUBED (test code = GLUBED) 108 MG/DL 70-105 H - XR CHEST 1 [id number] 08:04:00 [facility] : 1945 Sex: FPatient Name: JESUS JACOBS Unit No: [id number] EXAMS: CPT CODE: [id number] XR CHEST 1 V [id number] CHEST, SINGLE VIEW LOCATION: H 30 HISTORY: Respiratory failure. A single view of the chest at 3:41 AM was compared to a prior exam from March 12, 2022. FINDINGS: Bibasilar infiltrative/atelectatic changes and pleural effusions are stable along with mild cardiac and central pulmonary vascularprominence. Lines and tubes are unchanged. No new findings are seen. IMPRESSION: No change from the prior exam. at 0804 Reported and signed by: Ryder Perez Jr, MD CC: Jaime Harvey MD; Darnell Bass MD Technologist: Dipti Funk Fluoro Time: DAP (Gy m2): Air Kerma (mGy): Trscr Dt/Tm: 03/13/2022 (08) by:Darrell Printed Date/Time: 03/13/2022 (0808) Name: JESUS JACOBS [facility] Phys: Darnell Chan MD [address] : 1945 Age: 76 Sex: F [place] [id number] Loc: P.0212 1 Exam Date: 03/13/2022 Status: ADM IN PH: FAX: PAGE 1 Signed [id number] 06:21:00 Test Item Value Reference Range Interpretation Comments GLUBED (test code = GLUBED) 148 MG/DL 70-105 H CBC W/AUTO [id number] 04:36:00 Test Item Value Reference Range Interpretation Comments WHITE BLOOD CELL (test code = 13.8 x10 3/uL 4.8-10.8 H WBC) RED BLOOD CELL (test code = 2.67 x10 6/uL 4.20-5.40 L RBC) HEMOGLOBIN (test code = HGB) 7.7 g/dL 12.0-16.0 L HEMATOCRIT (test code = HCT) 23.8 % 37.0-47.0 L MEAN CELL VOLUME (test code = 89.1 fL 81.0-99.0 MCV) MEAN CELL HGB (test code = 28.8 pg 27-31 N MCH) MEAN CELL HGB CONCENTRATION 32.4 G/DL 33-36.5 L (test code = MCHC) RED CELL DISTRIBUTION WIDTH 16.7 % 12.9-16.9 N (test code = RDW) PLATELET COUNT (test code = 370 x10 3/uL 150-440 N PLT) MEAN PLATELET VOLUME (test 11.6 fL 8.9-12.4 N code = MPV) NEUTROPHIL % (test code = NT%) 85.6 % 42.2-75.2 H LYMPHOCYTE % (test code = LY%) 6.7 % 20.5-51.1 L MONOCYTE % (test code = MO%) 6.1 % 1.7-9.3 N EOSINOPHIL % (test code = EO%) 0.4 % 0.0-7.0 N BASOPHIL % (test code = BA%) 0.1 % 0-2.5 N NEUTROPHIL # (test code = NT#) 11.84 x10 3/uL 1.80-7.70 H LYMPHOCYTE # (test code = LY#) 0.92 x10 3/uL 1.00-4.80 L MONOCYTE # (test code = MO#) 0.84 x10 3/uL 0.00-0.80 H EOSINOPHIL # (test code = EO#) 0.06 x10 3/uL 0.00-0.45 N BASOPHIL # (test code = BA#) 0.02 x10 3/uL 0.0-0.20 N BASIC METABOLIC [id number] 04:33:00 Test Item Value Reference Range Interpretation Comments SODIUM (test code 143 mmol/L 136-145 N Please not e: New = NA) Reference Range Jun 2020 POTASSIUM (test 3.8 mmol/L 3.5-5.1 N code = K) CHLORIDE (test 110 mmol/L 98-107 H Please note: New code = CL) Reference Range Jun 2020 CARBON DIOXIDE 25 mmol/L 20-31 N Please note: New (test code = CO2) Reference Range Jun 2020 GLUCOSE (test code 148 mg/dL 74-106 H Please no te: New = GLU) Reference Range Jun 2020 BLOOD UREA 28 mg/dL 9-23 H Please note: Ne w NITROGEN (test Reference Ran ge Feb code = BUN) 2020 GLOMERULAR >=60 max >60 Units are FILTRATION RATE estimate mL/min mL/min/1. 73m2 The (test code = GFR) estimated glomerular filtration rate is computed usingpatient ra ce, age (>18), sex, and serum creatinin e. If anyof the neede d data elements a re missing the Laboratory marcos ot compute an estimation of t he glomerular filtration rate . CREATININE (test 0.80 mg/dL 0.55-1.02 N Please note : New code = CREAT) Reference Rang e Jun 2020 CALCIUM (test code 6.6 mg/dL 8.7-10.4 L Please no te: New = CA) Reference Range Jun 2020 [id number] 04:33:00 Test Item Value Reference Range Interpretation Comments PHOSPHOROUS (test code 3.9 mg/dL 2.4-5.1 N Pleas e note: New = PHOS) Reference Range Jun 2020 [id number] 04:33:00 Test Item Value Reference Range Interpretation Comments MAGNESIUM (test code = 2.0 mg/dL 1.6-2.6 N Pleas e note: New MAG) Reference Range Jun 2020 BLOOD GAS [id number] 04:14:00 Test Item Value Reference Range Interpretation Comments ARTERIAL BLOOD GAS PH 7.40 7.35-7.45 N (test code = PHA) ARTERIAL BLOOD GAS PCO2 33.1 mmHg 35.0-45.0 L (test code = PCO2A) ARTERIAL BLOOD GAS PO2 170.0 mmHg 80.0-95.0 H (test code = PO2A) BICARBONATE TOTAL HCO3 20.2 mmol/L 22.0-24.0 L (test code = HCO3) BASE EXCESS (test code -3.9 mmol/L See_Comment L [Aut omated = CINTHIA) message] The system which generated this result transmitted reference range : (+/-)2.0. The reference range was not used to interpret this result as normal/abnormal . ABG O2 SATURATION (test 99.0 % 95.0-100.0 N code = SATA) ARTERIAL FIO2 (test 40.0 % code = FIO2A) ABG VENT MODE (test Ventilator code = MODEA) ALLENS TEST (test code NOT APPLICAPLE = ALLENS) SODIUM (POC) (test code 139 mmol/L 135-147 N = NA/ABG) POTASSIUM (POC) (test 3.34 mmol/L 3.6-5.2 L code = K/ABG) CHLORIDE (ARTERIAL) 115 mmol/L 98-108 H (test code = CL/ABG) GLUCOSE (test code = 130 mg/dL 70-104 H GLU/ABG) IONIZED CALCIUM (test 0.90 mmol/L 1.12-1.32 L code = CAIABG) POC LACTIC ACID (test 1.36 mmol/L 0.5-2.2 N code = POCLAC) TOTAL HGB (test code = 9.2 g/dL 12.0-16.0 L THB) OXYHEMOGLOBIN (test 98.4 % 92.0-98.0 H code = OOHGBT) CARBOXYHEMOGLOBIN (test 0.3 % 0-5.0 N code = HOHGBT) METHEMOGLOBIN (test <0.8 % 0-1.5 N code = METHGB) HHb (test code = HHB) 1.0 % TCO2 ARTERIAL (test 21.2 MMOL/L L code = TCO2A) [id number] 23:35:00 Test Item Value Reference Range Interpretation Comments GLUBED (test code = GLUBED) 126 MG/DL 70-105 H [id number] 17:26:00 Test Item Value Reference Range Interpretation Comments GLUBED (test code = GLUBED) 122 MG/DL 70-105 H - XR CHEST 1 [id number] 07:08:00 [facility] : 1945 Sex: FPatient Name: JESUS JACOBS Unit No: [id number] EXAMS: CPT CODE: [id number] XR CHEST 1 V [id number] Chest one view portable 03/12/2022 7:07 AM CLINICAL INDICATION: Intubation COMPARISON: The previous day LOCATION: W1 IMPRESSION: The side port of an enteric catheter projects over the gastroesophageal junction and should be advanced. Remaining support hardware is unchanged in position. Cardiomediastinal contours are stable. Pulmonary edema has regressed. There is a trace right pleural effusion with adjacent basilar atelectasis. Superimposed pneumonia should be excluded clinically. at 0708 Reported and signed by: ROSALINDA COKER M.D. CC: Jaime Harvey MD; Emmie Ramos MD Technologist: Dipti Funk Fluoro Time:DAP (Gy m2): Air Kerma (mGy): Trscr Dt/Tm: 03/12/2022 (0708) by:[email or web address] Printed Date/Time: 03/12/2022 (07) Name: JESUS JACOBS [facility] Phys: [id number] - Emmie Ramos MD [address] : 1945 Age: 76 Sex: F [place] [id number] Loc: P.0212 1 Exam Date: 03/12/2022 Status: ADM IN PH: FAX: PAGE 1 Signed [id number] 05:50:00 Test Item Value Reference Range Interpretation Comments GLUBED (test code = GLUBED) 176 MG/DL 70-105 H BASIC METABOLIC [id number] 05:15:00 Test Item Value Reference Range Interpretation Comments SODIUM (test code = 142 mmol/L 136-145 N Please n ote: New NA) Reference Range Jun 2020 POTASSIUM (test code 3.5 mmol/L 3.5-5.1 N = K) CHLORIDE (test code = 108 mmol/L 98-107 H Please note: New CL) Reference Range Jun 2020 CARBON DIOXIDE (test 22 mmol/L 20-31 N Please note: New code = CO2) Reference Range Jun 2020 GLUCOSE (test code = 160 mg/dL 74-106 H Please note: New GLU) Reference Range Jun 2020 BLOOD UREA NITROGEN 32 mg/dL 9-23 H Please n ote: New (test code = BUN) Reference Range Jun 2020 GLOMERULAR FILTRATION 57 mL/min >60 L Units are RATE (test code = mL/min/1.7 3m2 The GFR) estimated glome rular filtration rate is computed usingp atient race, age (>18) , sex, and serum creat inine. If anyof the ne eded data elements a re missing the Lab oratory cannot compute an estimation of t he glomerular filt ration rate. CREATININE (test code 1.00 mg/dL 0.55-1.02 N Please note: New = CREAT) Reference Range Jun 2020 CALCIUM (test code = 7.0 mg/dL 8.7-10.4 L Please note: New CA) Reference Range Jun 2020 [id number] 05:15:00 Test Item Value Reference Range Interpretation Comments PHOSPHOROUS (test code 2.7 mg/dL 2.4-5.1 N Pleas e note: New = PHOS) Reference Range Jun 2020 [id number] 05:15:00 Test Item Value Reference Range Interpretation Comments MAGNESIUM (test code = 2.1 mg/dL 1.6-2.6 N Kerline e note: New MAG) Reference Range Jun 2020 BLOOD GAS [id number] 03:40:00 Test Item Value Reference Range Interpretation Comments ARTERIAL BLOOD GAS PH 7.59 7.35-7.45 H (test code = PHA) ARTERIAL BLOOD GAS PCO2 25.9 mmHg 35.0-45.0 L (test code = PCO2A) ARTERIAL BLOOD GAS PO2 164.3 mmHg 80.0-95.0 H (test code = PO2A) BICARBONATE TOTAL HCO3 24.2 mmol/L 22.0-24.0 H (test code = HCO3) BASE EXCESS (test code 2.7 mmol/L See_Comment H [Aut omated = CINTHIA) message] The system which generated this result transmitted reference range : (+/-)2.0. The reference range was not used to interpret this result as normal/abnormal . ABG O2 SATURATION (test 99.2 % 95.0-100.0 N code = SATA) ARTERIAL FIO2 (test 40.0 % code = FIO2A) ABG VENT MODE (test Ventilator code = MODEA) ALLENS TEST (test code NOT APPLICAPLE = ALLENS) SODIUM (POC) (test code 137 mmol/L 135-147 N = NA/ABG) POTASSIUM (POC) (test 3.36 mmol/L 3.6-5.2 L code = K/ABG) CHLORIDE (ARTERIAL) 107 mmol/L 98-108 N (test code = CL/ABG) GLUCOSE (test code = 165 mg/dL 70-104 H GLU/ABG) IONIZED CALCIUM (test 0.98 mmol/L 1.12-1.32 L code = CAIABG) POC LACTIC ACID (test 2.83 mmol/L 0.5-2.2 H code = POCLAC) TOTAL HGB (test code = 8.3 g/dL 12.0-16.0 L THB) OXYHEMOGLOBIN (test 98.8 % 92.0-98.0 H code = OOHGBT) CARBOXYHEMOGLOBIN (test 0.1 % 0-5.0 N code = HOHGBT) METHEMOGLOBIN (test <0.8 % 0-1.5 N code = METHGB) HHb (test code = HHB) 0.8 % TCO2 ARTERIAL (test 25.0 MMOL/L 24-30 N code = TCO2A) CBC W/AUTO [id number] 03:40:00 Test Item Value Reference Range Interpretation Comments WHITE BLOOD CELL (test code = 13.1 x10 3/uL 4.8-10.8 H WBC) RED BLOOD CELL (test code = 2.67 x10 6/uL 4.20-5.40 L RBC) HEMOGLOBIN (test code = HGB) 7.7 g/dL 12.0-16.0 L HEMATOCRIT (test code = HCT) 22.5 % 37.0-47.0 L MEAN CELL VOLUME (test code = 84.3 fL 81.0-99.0 N MCV) MEAN CELL HGB (test code = 28.8 pg 27-31 N MCH) MEAN CELL HGB CONCENTRATION 34.2 G/DL 33-36.5 N (test code = MCHC) RED CELL DISTRIBUTION WIDTH 15.7 % 12.9-16.9 N (test code = RDW) PLATELET COUNT (test code = 323 x10 3/uL 150-440 N PLT) MEAN PLATELET VOLUME (test 12.1 fL 8.9-12.4 N code = MPV) NEUTROPHIL % (test code = NT%) 86.4 % 42.2-75.2 H LYMPHOCYTE % (test code = LY%) 6.3 % 20.5-51.1 L MONOCYTE % (test code = MO%) 5.4 % 1.7-9.3 N EOSINOPHIL % (test code = EO%) 0.2 % 0.0-7.0 N BASOPHIL % (test code = BA%) 0.2 % 0-2.5 N NEUTROPHIL # (test code = NT#) 11.32 x10 3/uL 1.80-7.70 H LYMPHOCYTE # (test code = LY#) 0.82 x10 3/uL 1.00-4.80 L MONOCYTE # (test code = MO#) 0.70 x10 3/uL 0.00-0.80 N EOSINOPHIL # (test code = EO#) 0.03 x10 3/uL 0.00-0.45 N BASOPHIL # (test code = BA#) 0.02 x10 3/uL 0.0-0.20 N [id number] 23:47:00 Test Item Value Reference Range Interpretation Comments GLUBED (test code = GLUBED) 175 MG/DL 70-105 H - SP DRN VISCERA [id number] 14:11:00 [facility] 1945 Sex: FPatient Name: JESUS JACOBS Unit No: [id number] EXAMS: CPT CODE: [id number] SP DRN VISCERA PERC [id number] EXAMINATION: PERCUTANEOUS DRAINAGE x 2 LOCATION: W1. HISTORY: 76-year-old female status post surgery with abdominal fluid collections, request is made for drain placement. Colocutaneous fistula, hypotensive, intubated. COMPARISON: CT abdomen 03/10/22. SEDATION: The patient did not require sedation for procedure. TECHNIQUE/FINDINGS: The risks, benefits and alternatives were discussed and informed consent was obtained from patient's . Prior to beginning the procedure, [place] Protocol was used to confirm the patient's identity and planned procedure. Maximum sterile barriers including cap, mask, hand hygiene, sterile gloves, sterile gown, large sterile drape and cutaneous antisepsis were used. Procedure was technically difficult due to patient body habitus and was performed at bedside in ICU. The skin overlying the fluid collection in the perihepatic region was sterilely prepped, draped and infiltrated with 1% lidocaine. Preprocedure ultrasound demonstrated right perihepatic fluid collection, as seen on recent CT with internal septations. The targeted collection was then accessed with a 5-[place] sheathed needle using real-time US imaging guidance. Aspiration of fluid was used to confirm needle placement. A guidewire was advanced and coiled within the collection before dil ating the tract to 10 chinese. A 10.2-[place] APD was then advanced over the guidewire, formed in the collection, and secured in place. The catheter was connected to gravity drainage. A sterile dressing was applied. Approximately 300 mL of yellow fluid was drained at time of procedure. A sample of the fluid was sent to the lab for analysis. Subsequently, The skin overlying the fluid collection in the left lower quadrant of abdomen was sterilely prepped, draped and infiltrated with 1% lidocaine. Preprocedure ultrasound demonstrated small free fluid in LLQ, as seen on recent CT. The targeted collectionwas then accessed with a 5-[place] sheathed needle using real-time US imaging guidance. Aspiration offluid was used to confirm needle placement. A guidewire was advanced and coiled within the collection before dilating the tract to 10 chinese. A 10.2-[place] APD was then advanced Name: JESUS JACOBS [facility] Phys: MYRON. - Cornell Padilla MD [address] : 1945 Age: 76 Sex: F [place] [id number] Loc: P.[id number] 1 Exam Date: 03/11/2022 Status: ADM IN PH: FAX: PAGE 1 Signed Report (CONTINUED) Patient Name: JESUS JACOBS Unit No: [id number] EXAMS:CPT CODE: [id number] SP JOHN VISCERA PERC [id number] (Continued) over the guidewire, formed in the collection, and secured in place. The catheter was connected to gravity drainage. A sterile dressing was applied. Approximately 50 mL of purulent fluid was drained at time of procedure. A sample of the fluid was sent to the lab for analysis. ESTIMATED BLOOD LOSS: Minimal. DISCHARGED TO: Performed at bedside in ICU. IMPRESSION: Successful image guided drainage of perihepatic and left lower quadrant fluid collection as above. PLAN: The tubes should be flushed with 10 mL saline, twice a day. Findings discussed with MD Randy at 03/11/2022 2:10 PM. at 1411 Reported and signed by: RACQUEL VELA M.D. CC: Jaime Harvey MD; Cornell Padilla MD Technologist: David Mata (R),(CT),() Fluoro Time: DAP (Gy m2): Air Kerma (mGy): Trscr Dt/Tm: 03/11/2022 (1411) by:[email or web address] Printed Date/Time: 03/11/2022 (7488) Name: JESUS JACOBS [facility] Phys: MYRON. - Cornell Padilla MD [id number] : 1945 Age: 76 Sex: [place] [id number] Loc: P.[id number] 1 Exam Date: 03/11/2022 Status: ADM IN PH: FAX: PAGE 2Signed Report- SP JOHN VISCERA [id number] 14:11:00 [facility] : 1945 Sex: FPatient Name: JESUS JACOBS Unit No: [id number] EXAMS: CPT CODE: [id number] DRN VISCERA PERC [id number] EXAMINATION: PERCUTANEOUS DRAINAGE x 2 LOCATION: W1. HISTORY: 76-year-old female status post surgery with abdominal fluid collections, request is made for drain placement. Colocutaneous fistula, hypotensive, intubated. COMPARISON: CT abdomen 03/10/22. SEDATION: The patient did not require sedation for procedure. TECHNIQUE/FINDINGS: The risks, benefits and alternatives were discussed and informed consent was obtained from patient's . Prior to beginning the procedure, [place] Protocol was used to confirm the patient's identity and planned procedure. Maximum sterile barriers including cap, mask, hand hygiene, sterile gloves, sterile gown, large sterile drape and cutaneous antisepsis were used. Procedure was technically difficult due to patient body habitus and was performed at bedside in ICU. The skin overlying the fluid collection in the perihepatic region was sterilely prepped, draped and infiltrated with 1% lidocaine. Preprocedure ultrasound demonstrated right perihepatic fluid collection, as seen on recent CT with internal septations. The targeted collection was thenaccessed with a 5-[place] sheathed needle using real-time US imaging guidance. Aspiration of fluid was used to confirm needle placement. A guidewire was advanced and coiled within the collection before dilating the tract to 10 chinese. A 10.2-[place] APD was then advanced over the guidewire, formed in the collection, and secured in place. The catheter was connected to gravity drainage. A sterile dressing was applied. Approximately 300 mL of yellow fluid was drained at time of procedure. A sample of thefluid was sent to the lab for analysis. Subsequently, The skin overlying the fluid collection in theleft lower quadrant of abdomen was sterilely prepped, draped and infiltrated with 1% lidocaine. Preprocedure ultrasound demonstrated small free fluid in LLQ, as seen on recent CT. The targeted collection was then accessed with a 5-[place] sheathed needle using real-time US imaging guidance. Aspiration of fluid was used to confirm needle placement. A guidewire was advanced and coiled within the collection before dilating the tract to 10 chinese. A 10.2-[place] APD was then advanced Name: JESUS JACOBS [facility] Phys: MYRON. - Cornell Padilla MD [address] : 1945 Age: 76 Sex: [place] [address] Loc: P.0212 1 Exam Date: 03/11/2022 Status: ADM IN PH: FAX: PAGE 1 Signed Report (CONTINUED) Patient Name: JESUS JACOBS Unit No: [id number] EXAMS: CPT CODE: [id number] SP N VISCERA PERC [id number] (Continued) over the guidewire, formed in the collection, and secured in place. The catheter was connected to gravity drainage. A sterile dressing was applied. Approximately 50 mL of purulent fluid was drained at time of procedure. A sample of the fluid was sent to the lab for analysis. ESTIMATED BLOOD LOSS: Minimal. DISCHARGED TO: Performed at bedside in ICU. IMPRESSION: Successful image guided drainage of perihepatic and left lower quadrant fluid collection as above. PLAN: The tubes should be flushed with 10 mL saline, twice a day. Findings discussed with MD Randy at 03/11/2022 2:10 PM. at 1411 Reported and signed by: RACQUEL VELA M.D. CC: Jaime Harvey MD; Cornell Padilla MD Technologist: David Mata (R),(CT),() Fluoro Time: DAP (Gy m2): Air Kerma (mGy): Trscr Dt/Tm: 03/11/2022 (1410) by:[email or web address] Printed Date/Time: 03/11/2022 (1413) Name: JESUS JACOBS [facility] Phys: [email or web address] - Cornell Padilla MD [address] : 1945 Age: 76 Sex: [place] [address] Loc: P.0212 1 Exam Date: 03/11/2022 Status: ADM IN PH: FAX: PAGE 2 Signed Report- US NEEDLE [id number] [facility] 1945 Sex: FPatient Name: JESUS JACOBS Unit No: [id number] EXAMS: CPT CODE: [id number] US NEEDLE PLACEMENT 32431 EXAMINATION: PERCUTANEOUS DRAINAGE x 2 LOCATION: W1. HISTORY: 76-year-old female status post surgery with abdominal fluid collections, request is made for drain placement. Colocutaneousfistula, hypotensive, intubated. COMPARISON: CT abdomen 03/10/22. SEDATION: The patient did not require sedation for procedure. TECHNIQUE/FINDINGS: The risks, benefits and alternatives were discussed and informed consent was obtained from patient's . Prior to beginning the procedure, [place] Protocol was used to confirm the patient's identity and planned procedure. Maximum sterile barriers including cap, mask, hand hygiene, sterile gloves, sterile gown, large sterile drape and cutaneous antisepsis were used. Procedure was technically difficult due to patient body habitus and was performed at bedside in ICU. The skin overlying the fluid collection in the perihepatic region was sterilely prepped, draped and infiltrated with 1% lidocaine. Preprocedure ultrasound demonstrated right perihepatic fluid collection, as seen on recent CT with internal septations. The targeted collection was then accessed with a 5-[place]ese sheathed needle using real-time US imaging guidance. Aspiration of fluid wasused to confirm needle placement. A guidewire was advanced and coiled within the collection before di lating the tract to 10 chinese. A 10.2-[place] APD was then advanced over the guidewire, formed in thecollection, and secured in place. The catheter was connected to gravity drainage. A sterile dressingwas applied. Approximately 300 mL of yellow fluid was drained at time of procedure. A sample of the fluid was sent to the lab for analysis. Subsequently, The skin overlying the fluid collection in the left lower quadrant of abdomen was sterilely prepped, draped and infiltrated with 1% lidocaine. Preprocedure ultrasound demonstrated small free fluid in LLQ, as seen on recent CT. The targeted collection was then accessed with a 5-[place]ese sheathed needle using real-time US imaging guidance. Aspiration of fluid was used to confirm needle placement. A guidewire was advanced and coiled within the collection before dilating the tract to 10 chinese. A 10.2-[place] APD was then advanced Name: JESUS JACOBS [facility] Phys: [email or web address] - Cornell Padilla MD [address] : 1945 Age: 76Sex: [place] [address] Loc: P.0212 1 Exam Date: 03/11/2022 Status: ADM IN PH: FAX: PAGE 1 Signed Report (CONTINUED) Patient Name: JESUS JACOBS Unit No: [id number] EXAMS: CPT CODE: [id number] US NEEDLE PLACEMENT 09223 (Continued) over the guidewire, formed in the collection, and secured in place. The catheter was connected to gravity drainage. A sterile dressing was applied. Approximately 50 mL of purulent fluid was drained at time of procedure. A sample of the fluid was sent to the lab for analysis. ESTIMATED BLOOD LOSS: Minimal. DISCHARGED TO: Performed at bedside in ICU. IMPRESSION: Successful image guided drainage of perihepatic and left lower quadrant fluid collection as above. PLAN: The tubes should be flushed with 10 mL saline, twice a day. Findings discussedwith MD Randy at 03/11/2022 2:10 PM. at 1411 Reported and signed by: RACQUEL VELA M.D. CC: Jaime Harvey MD; Cornell Padilla MDTechnologist: David Mata (R),(CT),() Fluoro Time: DAP (Gy m2): Air Kerma (mGy): Trscr Dt/Tm: 03/11/2022 (141) by:[email or web address] Printed Date/Time: 03/11/2022 (141) Name: JESUS JACOBS [facility] Phys: - Cornell Padilla MD [address] : 1945 Age: 76 Sex: [place] [address] Loc: P.0212 1 Exam Date: 03/11/2022 Status: ADM IN PH: FAX: PAGE 2 Signed Report- US NEEDLE [id number] 14:11:00 [facility] 1945 Sex: FPatient Name: JESUS JACOBS Unit No: [id number] EXAMS: CPT CODE: [id number] US NEEDLE PLACEMENT 85984 EXAMINATION: PERCUTANEOUS DRAINAGE x 2 LOCATION: W1. HISTORY: 76-year-old female status post surgery with abdominal fluid collections, request is made for drain placement. Colocutaneous fistula, hypotensive, intubated. COMPARISON: CT abdomen 03/10/22. SEDATION: The patient did not require sedation for procedure. TECHNIQUE/FINDINGS: The risks, benefits and alternatives were discussed andinformed consent was obtained from patient's . Prior to beginning the procedure, [place] Protocol was used to confirm the patient's identity and planned procedure. Maximum sterile barriers including cap, mask, hand hygiene, sterile gloves, sterile gown, large sterile drape and cutaneous antisepsis were used. Procedure was technically difficult due to patient body habitus and was performed atbedside in ICU. The skin overlying the fluid collection in the perihepatic region was sterilely prepped, draped and infiltrated with 1% lidocaine. Preprocedure ultrasound demonstrated right perihepaticfluid collection, as seen on recent CT with internal septations. The targeted collection was then accessed with a 5-[place]ese sheathed needle using real-time US imaging guidance. Aspiration of fluid was used to confirm needle placement. A guidewire was advanced and coiled within the collection before dil ating the tract to 10 chinese. A 10.2-[place] APD was then advanced over the guidewire, formed in the collection, and secured in place. The catheter was connected to gravity drainage. A sterile dressing was applied. Approximately 300 mL of yellow fluid was drained at time of procedure. A sample of the fluid was sent to the lab for analysis. Subsequently, The skin overlying the fluid collection in the left lower quadrant of abdomen was sterilely prepped, draped and infiltrated with 1% lidocaine. Preprocedure ultrasound demonstrated small free fluid in LLQ, as seen on recent CT. The targeted collection was then accessed with a 5-[place]ese sheathed needle using real-time US imaging guidance. Aspiration of fluid was used to confirm needle placement. A guidewire was advanced and coiled within the collection before dilating the tract to 10 chinese. A 10.2-[place] APD was then advanced [facility] MY[facility] - Cornell Padilla MD [address] DOB: 1945 Age: 76 Sex: F [place] [address] Loc: P.0212 1 Exam Date: 03/11/2022 Status: ADM IN PH:FAX: PAGE 1 Signed Report (CONTINUED) Patient Name: JESUS JACOBS Unit No: [id number] EXAMS: CPT CODE: [id number] US NEEDLE PLACEMENT 13811 (Continued) over the guidewire, formed in the collection, and secured in place. The catheter was connected to gravity drainage. A sterile dressing was applied. Approximately 50 mL of purulent fluid was drained at time of procedure. A sample of the fluid was sent to the lab for analysis. ESTIMATED BLOOD LOSS: Minimal. DISCHARGED TO: Performed at bedside in ICU. IMPRESSION: Successful image guided drainage of perihepatic and left lower quadrant fluid collection as above. PLAN: The tubes should be flushed with 10 mL saline, twice a day. Findings discussedwith MD Randy at 03/11/2022 2:10 PM. at 1411 Reported and signed by: RACQUEL VELA M.D. CC: Jaime Harvey MD; Cornell Padilla MD Technologist: David Mata (R),(CT),() Fluoro Time: DAP (Gy m2): Air Kerma (mGy): Trscr Dt/Tm: 03/11/2022 (1410) by:[email or web address] Printed Date/Time: 03/11/2022 (1413) [facility]: NADIR. - Cornell Padilla MD [address] DOB: 1945 Age: 76 Sex: F [place] [address] Loc: P.0212 1 Exam Date: 03/11/2022 Status: ADM IN PH: FAX: PAGE 2 Signed [id number] 11:20:00 Test Item Value Reference Range Interpretation Comments GLUBED (test code = GLUBED) 182 MG/DL 70-105 H - XR CHEST 1 [id number] 07:27:00 [facility] : 1945 Sex: FPatient Name: JESUS JACOBS Unit No: [id number] EXAMS: CPT CODE: [id number] XR CHEST 1 V 18770 Chest one view portable 03/11/2022 7:26 AM CLINICAL INDICATION: Intubation COMPARISON: The previous day LOCATION: W1 IMPRESSION: The side port of an enteric catheter projects over the gastroesophageal junction and should be advanced. Remaining support hardware is in satisfactory radiographic position. Cardiomediastinal contours are stable. There is mild pulmonary edema. There is bibasilar atelectasis with adjacent trace bilateral pleural effusions. Superimposed pneumonia should be excluded clinically. at 0727 Reported and signed by: ROSALINDA COKER M.D. CC: Yadiel Carrion DO; Jaime Harvey MD Technologist: Dipti Funk Fluoro Time: DAP (Gy m2): Air Kerma (mGy): Trscr Dt/Tm: 03/11/2022 (06) by:[email or web address] Printed Date/Time: 03/11/2022 (729) Name: JACOBS,JESUS [facility] Phys: Yadiel Solorio [address] : 1945 Age: 76 Sex: F [place] [address] [address] [facility] No: [id number] Loc: P.0212 1 Exam Date: 03/11/2022 Status: ADM IN PH: FAX: PAGE 1 Signed [id number] 07:07:00 Test Item Value Reference Range Interpretation Comments GLUBED (test code = GLUBED) 141 MG/DL 70-105 H BASIC METABOLIC [id number] 04:38:00 Test Item Value Reference Range Interpretation Comments SODIUM (test code 141 mmol/L 136-145 N Please not e: New = NA) Reference Range Jun 2020 POTASSIUM (test 3.7 mmol/L 3.5-5.1 N code = K) CHLORIDE (test 105 mmol/L 98-107 N Please note: New code = CL) Reference Range Jun 2020 CARBON DIOXIDE 26 mmol/L 20-31 N Please note: New (test code = CO2) Reference Range Jun 2020 GLUCOSE (test code 128 mg/dL 74-106 H Please no te: New = GLU) Reference Range Jun 2020 BLOOD UREA 28 mg/dL 9-23 H Please note: Ne w NITROGEN (test Reference Ran ge Feb code = BUN) 2020 GLOMERULAR >=60 max >60 Units are FILTRATION RATE estimate mL/min mL/min/1. 73m2 The (test code = GFR) estimated glomerular filtration rate is computed usingpatient ra ce, age (>18), sex, and serum creatinin e. If anyof the neede d data elements a re missing the Laboratory marcos ot compute an estimation of t he glomerular filtration rate . CREATININE (test 0.90 mg/dL 0.55-1.02 N Please note : New code = CREAT) Reference Rang e Jun 2020 CALCIUM (test code 6.8 mg/dL 8.7-10.4 L Please no te: New = CA) Reference Range Jun 2020 [id number] 04:38:00 Test Item Value Reference Range Interpretation Comments PHOSPHOROUS (test code 3.0 mg/dL 2.4-5.1 N Pleas e note: New = PHOS) Reference Range Jun 2020 [id number] 04:38:00 Test Item Value Reference Range Interpretation Comments MAGNESIUM (test code = 1.6 mg/dL 1.6-2.6 N Pleas e note: New MAG) Reference Range Jun 2020 PROTHROMBIN [id number] 04:34:00 Test Item Value Reference Range Interpretation Comments PROTHROMBIN TIME 13.5 SECONDS 10.3-12.9 H PATIENT (test code = PTP) INTERNATIONAL 1.18 INR UNIT 0.9-1.11 H The INR is us eful only NORMAL RATIO (test for monit oring code = INR) anticoagulant therapy.It may be unreliable in t he initial phase o f antigoagulation and in unstable patien ts. Indication for Anticoagulation Recommended INR 1. Prevention of v enous thomboembolism 2.0-3.0in high- risk patients; treat ment of venousthrombosi s and pulmonary embol ism aftera course o f heparin; preven tion of systemicembolis m in a variety of cond itions, including atria l fibrillation an d prothetic tissu e heart valves, 2. Pros thetic mechanical hear t valves; 2.5-3.5recurren t systemic emboli sm. THROMBOPLASTIN TIME [id number] 04:34:00 Test Item Value Reference Range Interpretation Comments THROMBOPLASTIN TIME 27.7 SECONDS 23.8-34.8 N INTERPRE TATIVE PARTIAL (test code = DATA: erapeutic PTT) range: Unfractionated heparin:55 - 80 seconds Argatroban:1.5 to 3 times the basel ine PTT CBC W/AUTO [id number] 04:18:00 Test Item Value Reference Range Interpretation Comments WHITE BLOOD CELL (test code = 17.9 x10 3/uL 4.8-10.8 H WBC) RED BLOOD CELL (test code = 2.93 x10 6/uL 4.20-5.40 L RBC) HEMOGLOBIN (test code = HGB) 8.5 g/dL 12.0-16.0 L HEMATOCRIT (test code = HCT) 25.2 % 37.0-47.0 L MEAN CELL VOLUME (test code = 86.0 fL 81.0-99.0 N MCV) MEAN CELL HGB (test code = 29.0 pg 27-31 N MCH) MEAN CELL HGB CONCENTRATION 33.7 G/DL 33-36.5 N (test code = MCHC) RED CELL DISTRIBUTION WIDTH 15.7 % 12.9-16.9 N (test code = RDW) PLATELET COUNT (test code = 281 x10 3/uL 150-440 N PLT) MEAN PLATELET VOLUME (test 11.9 fL 8.9-12.4 N code = MPV) NEUTROPHIL % (test code = NT%) 85.1 % 42.2-75.2 H LYMPHOCYTE % (test code = LY%) 6.0 % 20.5-51.1 L MONOCYTE % (test code = MO%) 6.0 % 1.7-9.3 N EOSINOPHIL % (test code = EO%) 0.3 % 0.0-7.0 N BASOPHIL % (test code = BA%) 0.2 % 0-2.5 N NEUTROPHIL # (test code = NT#) 15.22 x10 3/uL 1.80-7.70 H LYMPHOCYTE # (test code = LY#) 1.08 x10 3/uL 1.00-4.80 N MONOCYTE # (test code = MO#) 1.07 x10 3/uL 0.00-0.80 H EOSINOPHIL # (test code = EO#) 0.05 x10 3/uL 0.00-0.45 N BASOPHIL # (test code = BA#) 0.04 x10 3/uL 0.0-0.20 N [id number] 00:21:00 Test Item Value Reference Range Interpretation Comments GLUBED (test code = GLUBED) 159 MG/DL 70-105 H [id number] 17:13:00 Test Item Value Reference Range Interpretation Comments GLUBED (test code = GLUBED) 115 MG/DL 70-105 H - CT ABD PELVIS [id number] 13:03:00 [facility] 1945 Sex: FPatient Name: JESUS JACOBS Unit No: [id number] EXAMS: CPT CODE: [id number] CT ABD PELVIS W/CONT 08574 EXAM: - CT ABD PELVIS W/CONT Location: A1 INDICATION: Colocutaneous fistula COMPARISON: 03/02/2022 Technique: Axial images of the abdomen, and pelvis were obtained after the administration of 76 mL Isovue 300 intravenous contrast. Coronal and sagittal reformatted images were created. One or more of the following dose reduction techniques were used: Automated exposure control, adjustment of the mA and/or kV according to patient size, and/or utilization of iterative reconstruction technique. GFR: Greater than 60 , Creatinine: 0.9 mg/dL DLP: 544 mGy-cm. FINDINGS: Abdomen Lower thorax:Moderate right and small left pleural effusions are present. There is adjacent compressive atelectasis. Further pneumonitis is not excluded. Pacemaker leads are present within the right atrium and right ventricle. Hepatobiliary: There is a large subcapsular fluid collection abutting the right hepatic lobe measuring 17 x 20.7 x 9.5 cm (AP X cc X transverse). This fluid collection demonstrates simple attenuation as increase in size since 03/02/2022 . No discrete mass lesions are identified within theliver. There is no biliary ductal dilatation.. Gallbladder: Surgical absence Spleen: No visualized abnormality. Pancreas: No visualized abnormality. Adrenals: Focal nodule within the left adrenal gland favored to represent adenoma. Right adrenal gland is within normal limits. Kidneys: Thinning of bilateral renal cortices. No hydronephrosis or hydroureter. Bowel: Postoperative changes include a diverting ileostomy in the right lower abdomen. Anastomotic sutures redemonstrated within small bowel loops in the right abdomen. No abnormal dilation of the small bowel loops. Colonic loops are collapsed. There is free fluid anterior to small bowel loops in the lower abdomen. Surgical drains are in place within the peritoneal cavity. The stomach is collapsed. Nasogastric tube is followed to the mid gastric body. Name: JESUS JACOBS [facility] Phys: Sammi Diallo I HEALTH ASSISTANT [address] : 1945 Age: 76 Sex: [place] [address] Loc: P.0212 1 Exam Date:03/10/2022 Status: ADM IN PH: FAX: PAGE 1 Signed Report (CONTINUED) Patient Name: JESUS JACOBS Unit No: [id number] EXAMS: CPT CODE: [id number] CT ABD PELVIS W/CONT 48045 (Continued) Vessels: Calcification within the abdominal aorta. No aneurysmal dilatation. Lymph nodes: No lymphadenopathy Peritoneum/retroperitoneum: There are fluid collections within the peritoneal cavity. Larger focus in the lower abdomen anterior to small bowel loops extending to the level of the bladder measures roughly 9.8 x 8.1 x 3.9 cm. Smaller focus within mesenteric root eccentric to the right measures 1.9 x 3.3 x 6.3 cm. All findings may represent residual small free fluid pockets, possibly postsurgical in nature, possibility of developing abscess is not excluded. Since prior study, there has been a large incis ion/wound site of the abdominal wall eccentric to the right with packing material. No free intraperitoneal air. FINDINGS: Pelvis Pelvic organs/bladder: Surgical absence of the uterus. Urinary bladder is collapsed with indwelling Tamayo catheter. Perirectal and presacral fluid is present. Lymph nodes: No pelvic or inguinal adenopathy. Bones/soft tissues: There is infiltration of the subcutaneous tissues in the lower abdominal wall. There is levoconvexed curvature of lumbar spine centered at L4. Thereis diffuse osteopenia. IMPRESSION: 1. New, large wound site in the anterior abdominal wall with packing material. 2. Interval placement of surgical drains within the peritoneal cavity. There are fluid pockets within the peritoneum which may relate to postoperative changes/seroma. Further organizing fluid collection/abscesses are not excluded. No free air is seen within the within the peritoneal cavity. 3. Redemonstration of diverting ileostomy in the right abdominal wall. Colonic loops are collapsed. 4. Worsening large subcapsular hepatic fluid collection. 5. Small to moderate right and small left pleural effusions with adjacent compressive atelectasis. Collection on the right is slightly larger than seen on prior study. at 1303 Reportedand signed by: ROXANE CAMACHO M.D. Name: JACOBS,[facility] Phys: Sammi Diallo I HEALTH ASSISTANT [address] : 1945 Age: 76 Sex: F [place] [address] Loc: P.0212 1 Exam Date: 03/10/2022 Status: ADM IN PH: FAX: PAGE 2 Signed Report (CONTINUED) Patient Name: JESUS JACOBS Unit No: [id number] EXAMS: CPT CODE: [id number] CT ABD PELVIS W/CONT 26445 (Continued) CC: Sammi Freeman; Jaime Harvey MD Technologist: Khris Inman CTDI: 8.7 DLP: 544 Trscr Dt/Tm: 03/10/2022 (1303) by:[email or web address] Printed Date/Time: 03/10/2022 (1306) Name: JACOBSJESUS [facility] Phys: Sammi Diallo I HEALTH ASSISTANT [address] : 1945 Age: 76 Sex: F [place] [address] Loc: P.0212 1 Exam Date: 03/10/2022 Status: ADM IN PH: FAX: PAGE 3 Signed Report- XR CHEST 1 V 2022-03-10 08:18:00 [facility] : 1945 Sex: FPatient Name: JESUS JACOBS Unit No: [id number] EXAMS: CPT CODE: [id number] XR CHEST 1 V 06772 CHEST, SINGLE VIEW LOCATION: A1 HISTORY: Respiratory failure. A single view of the chest at3:43 AM was compared to a prior exam from March 09, 2022. FINDINGS: Bibasilar infiltrative/atelectatic changes and moderate effusions are stable along with mild cardiomegaly and central pulmonary vascular congestion. Lines and tubes are unchanged. No new findings are seen. IMPRESSION: No change from the prior exam. at 0818 Reported and signed by: Ryder Perez Jr, MD CC: Yadiel Carrion DO; Jaime Harvey MD Technologist: Trino Funk Fluoro Time: DAP (Gy m2): Air Kerma (mGy): Trscr Dt/Tm: 03/10/2022 (817) by:Darrell Printed Date/Time: 03/10/2022 (820) Name: JESUS JACOBS [facility] Phys: Yadiel Carrion [address] : 1945 Age: 76 Sex: [place], [place] [id number] Loc: P.0212 1 Exam Date: 03/10/2022 Status: ADM IN PH: FAX: PAGE 1 Signed [id number] 06:05:00 Test Item Value Reference Range Interpretation Comments GLUBED (test code = GLUBED) 151 MG/DL 70-105 H BASIC METABOLIC [id number] 04:37:00 Test Item Value Reference Range Interpretation Comments SODIUM (test code 143 mmol/L 136-145 N Please not e: New = NA) Reference Range Jun 2020 POTASSIUM (test 3.8 mmol/L 3.5-5.1 N code = K) CHLORIDE (test 107 mmol/L 98-107 N Please note: New code = CL) Reference Range Jun 2020 CARBON DIOXIDE 27 mmol/L 20-31 N Please note: New (test code = CO2) Reference Range Jun 2020 GLUCOSE (test code 139 mg/dL 74-106 H Please no te: New = GLU) Reference Range Jun 2020 BLOOD UREA 32 mg/dL 9-23 H Please note: Ne w NITROGEN (test Reference Ran ge Feb code = BUN) 2020 GLOMERULAR >=60 max >60 Units are FILTRATION RATE estimate mL/min mL/min/1. 73m2 The (test code = GFR) estimated glomerular filtration rate is computed usingpatient ra ce, age (>18), sex, and serum creatinin e. If anyof the neede d data elements a re missing the Laboratory marcos ot compute an estimation of t he glomerular filtration rate . CREATININE (test 0.90 mg/dL 0.55-1.02 N Please note : New code = CREAT) Reference Rang e Jun 2020 CALCIUM (test code 6.5 mg/dL 8.7-10.4 L Please no te: New = CA) Reference Range Jun 2020 [id number] 04:37:00 Test Item Value Reference Range Interpretation Comments PHOSPHOROUS (test code 3.0 mg/dL 2.4-5.1 N Pleas e note: New = PHOS) Reference Range Jun 2020 [id number] 04:37:00 Test Item Value Reference Range Interpretation Comments MAGNESIUM (test code = 1.8 mg/dL 1.6-2.6 N Pleas e note: New MAG) Reference Range Jun 2020 CBC W/AUTO [id number] 04:27:00 Test Item Value Reference Range Interpretation Comments WHITE BLOOD CELL (test code = 14.0 x10 3/uL 4.8-10.8 H WBC) RED BLOOD CELL (test code = 2.82 x10 6/uL 4.20-5.40 L RBC) HEMOGLOBIN (test code = HGB) 8.3 g/dL 12.0-16.0 L HEMATOCRIT (test code = HCT) 24.6 % 37.0-47.0 L MEAN CELL VOLUME (test code = 87.2 fL 81.0-99.0 N MCV) MEAN CELL HGB (test code = 29.4 pg 27-31 N MCH) MEAN CELL HGB CONCENTRATION 33.7 G/DL 33-36.5 N (test code = MCHC) RED CELL DISTRIBUTION WIDTH 15.9 % 12.9-16.9 N (test code = RDW) PLATELET COUNT (test code = 214 x10 3/uL 150-440 N PLT) MEAN PLATELET VOLUME (test 11.7 fL 8.9-12.4 N code = MPV) NEUTROPHIL % (test code = NT%) 84.0 % 42.2-75.2 H LYMPHOCYTE % (test code = LY%) 6.6 % 20.5-51.1 L MONOCYTE % (test code = MO%) 6.8 % 1.7-9.3 N EOSINOPHIL % (test code = EO%) 0.6 % 0.0-7.0 N BASOPHIL % (test code = BA%) 0.2 % 0-2.5 N NEUTROPHIL # (test code = NT#) 11.80 x10 3/uL 1.80-7.70 H LYMPHOCYTE # (test code = LY#) 0.92 x10 3/uL 1.00-4.80 L MONOCYTE # (test code = MO#) 0.95 x10 3/uL 0.00-0.80 H EOSINOPHIL # (test code = EO#) 0.08 x10 3/uL 0.00-0.45 N BASOPHIL # (test code = BA#) 0.03 x10 3/uL 0.0-0.20 N [id number] 23:37:00 Test Item Value Reference Range Interpretation Comments GLUBED (test code = GLUBED) 131 MG/DL 70-105 H [id number] 17:28:00 Test Item Value Reference Range Interpretation Comments GLUBED (test code = GLUBED) 125 MG/DL 70-105 H [id number] 11:31:00 Test Item Value Reference Range Interpretation Comments GLUBED (test code = GLUBED) 114 MG/DL 70-105 H [id number] 11:23:00 Test Item Value Reference Range Interpretation Comments POTASSIUM (test code = K) 3.8 mmol/L 3.5-5.1 N - [place] [id number] 11:05:00 [facility] 1945 Sex: FPatient Name: JESUS JACOBS Unit No: [id number] EXAMS: CPT CODE: [id number] [place] [address] Exam: Bilateral lower extremity venous Doppler ultrasound Location: A1 HISTORY:Bilateral lower extremity pain, swelling, suspected DVT, COMPARISON: None available TECHNIQUE: Static, grayscale, color Doppler and spectral images of the bilateral lower extremity veins were obtained without andwith compression. FINDINGS: There is normal flow within the bilateral common femoral, proximal greater saphenous, deep femoral, femoral, popliteal, and posterior tibial veins. There is normal compressibility. No filling defects are identified. There is infiltration of subcutaneous tissues compatible with edema. IMPRESSION: No sonographic evidence for bilateral lower extremity deep venous thrombosis. at 1105 Reported and signed by: ROXANE CAMACHO M.D. CC: Sammi Freeman; Jaime Harvey MD Technologist: Indra Robbins Probe: Trscr Dt/Tm: 03/09/2022 (1105) by:[email or web address] Printed Date/Time: 03/09/2022 (1103) Name: JESUS JACOBS [facility] Phys: Sammi Diallo APRN [address] : 1945 Age: 76 Sex: Mustapha Joya [id number] Loc: P.0212 1 Exam Date: 03/09/2022 Status: ADM IN PH: FAX: PAGE 1 Signed Report- XR CHEST 1 [id number] 07:57:00[facility] : 1945 Sex: FPatient Name: JESUS JACOBS Unit No: [id number] EXAMS: CPT CODE: [id number] XR CHEST 1 V 80670 CHEST, SINGLE VIEW LOCATION: A1 HISTORY: Respiratory failure. A single view of the chest at 4:03 AM was compared to a prior exam from March 08, 2022. FINDINGS: Bibasilar infiltrative/atelectatic changes and moderate effusions are stable along with mild cardiomegaly and central pulmonary vascular congestion. Lines and tubes are unchanged. No new findings are seen. IMPRESSION: No change from the prior exam. at 0757 Reported and signed by: Ryder Perez Jr, MD CC: Jaime Harvey MD; Nallely Espinoza MD Technologist: OSCAR WHITE Fluoro Time: DAP (Gy m2): Air Kerma (mGy): Trscr Dt/Tm: 03/09/2022 (0757) by:Darrell Perez rinted Date/Time: 03/09/2022 (0800) Name: JESUS JACOBS [facility] Phys: Nallely Solomon MD [address] : 1945 Age: 76 Sex: [place] [address] Loc: P.0212 1 Exam Date: 03/09/2022 Status: ADM IN PH: FAX: PAGE 1 Signed [id number] 05:41:00 Test Item Value Reference Range Interpretation Comments GLUBED (test code = GLUBED) 92 MG/DL 70-105 N BASIC METABOLIC [id number] 03:45:00 Test Item Value Reference Range Interpretation Comments SODIUM (test code 144 mmol/L 136-145 N Please not e: New = NA) Reference Range Jun 2020 POTASSIUM (test 3.6 mmol/L 3.5-5.1 N code = K) CHLORIDE (test 107 mmol/L 98-107 N Please note: New code = CL) Reference Range Jun 2020 CARBON DIOXIDE 27 mmol/L 20-31 N Please note: New (test code = CO2) Reference Range Jun 2020 GLUCOSE (test code 87 mg/dL 74-106 N Please no te: New = GLU) Reference Range Jun 2020 BLOOD UREA 25 mg/dL 9-23 H Please note: Ne w NITROGEN (test Reference Ran ge Feb code = BUN) 2020 GLOMERULAR >=60 max >60 Units are FILTRATION RATE estimate mL/min mL/min/1. 73m2 The (test code = GFR) estimated glomerular filtration rate is computed usingpatient ra ce, age (>18), sex, and serum creatinin e. If anyof the neede d data elements a re missing the Laboratory marcos ot compute an estimation of t he glomerular filtration rate . CREATININE (test 0.70 mg/dL 0.55-1.02 N Please note : New code = CREAT) Reference Rang e Jun 2020 CALCIUM (test code 6.9 mg/dL 8.7-10.4 L Please no te: New = CA) Reference Range Jun 2020 [id number] 03:45:00 Test Item Value Reference Range Interpretation Comments PHOSPHOROUS (test code 3.4 mg/dL 2.4-5.1 N Pleas e note: New = PHOS) Reference Range Jun 2020 [id number] 03:45:00 Test Item Value Reference Range Interpretation Comments MAGNESIUM (test code = 1.9 mg/dL 1.6-2.6 N Pleas e note: New MAG) Reference Range Jun 2020 CBC W/AUTO [id number] 03:32:00 Test Item Value Reference Range Interpretation Comments WHITE BLOOD CELL (test code = 14.2 x10 3/uL 4.8-10.8 H WBC) RED BLOOD CELL (test code = 3.09 x10 6/uL 4.20-5.40 L RBC) HEMOGLOBIN (test code = HGB) 9.0 g/dL 12.0-16.0 L HEMATOCRIT (test code = HCT) 26.8 % 37.0-47.0 L MEAN CELL VOLUME (test code = 86.7 fL 81.0-99.0 N MCV) MEAN CELL HGB (test code = 29.1 pg 27-31 N MCH) MEAN CELL HGB CONCENTRATION 33.6 G/DL 33-36.5 N (test code = MCHC) RED CELL DISTRIBUTION WIDTH 15.9 % 12.9-16.9 N (test code = RDW) PLATELET COUNT (test code = 156 x10 3/uL 150-440 N PLT) MEAN PLATELET VOLUME (test 11.6 fL 8.9-12.4 N code = MPV) NEUTROPHIL % (test code = NT%) 86.8 % 42.2-75.2 H LYMPHOCYTE % (test code = LY%) 5.3 % 20.5-51.1 L MONOCYTE % (test code = MO%) 4.9 % 1.7-9.3 N EOSINOPHIL % (test code = EO%) 0.4 % 0.0-7.0 N BASOPHIL % (test code = BA%) 0.2 % 0-2.5 N NEUTROPHIL # (test code = NT#) 12.33 x10 3/uL 1.80-7.70 H LYMPHOCYTE # (test code = LY#) 0.76 x10 3/uL 1.00-4.80 L MONOCYTE # (test code = MO#) 0.70 x10 3/uL 0.00-0.80 N EOSINOPHIL # (test code = EO#) 0.05 x10 3/uL 0.00-0.45 N BASOPHIL # (test code = BA#) 0.03 x10 3/uL 0.0-0.20 N [id number] 23:38:00 Test Item Value Reference Range Interpretation Comments GLUBED (test code = GLUBED) 96 MG/DL 70-105 N [id number] 17:34:00 Test Item Value Reference Range Interpretation Comments GLUBED (test code = GLUBED) 116 MG/DL 70-105 H - XR CHEST 1 [id number] 08:00:00 [facility] : 1945 Sex: FPatient Name: JESUS JACOBS Unit No: [id number] EXAMS: CPT CODE: [id number] XR CHEST 1 V 17318 CHEST, SINGLE VIEW LOCATION: A1 HISTORY: Respiratory failure. A single view of the chest at4:12 AM was compared to a prior exam from March 07, 2022. FINDINGS: Bibasilar infiltrative/atelectatic changes and moderate effusions are stable along with mild cardiomegaly and central pulmonary vascular congestion. Lines and tubes are unchanged. No new findings are seen. IMPRESSION: No change fromthe prior exam. at 0800 Reported and signed by: Ryder Perez Jr, MD CC: Jaime Harvey MD; Estefanía Mcdonnell Technologist: Bárbara Aguilar RT (R), (CT) Fluoro Time: DAP (Gy m2): Air Kerma (mGy): Trscr Dt/Tm: 03/08/2022 (0800) by:Darrell Printed Date/Time: 03/08/2022 (0804) Name: JESUS JACOBS [facility] Phys: [id number] - Estefanía Mcdonnell APRN [address] : 1945 Age: 76 Sex: [place] [address] Loc: P.0212 1 Exam Date: 03/08/2022 Status: ADM IN PH: FAX: PAGE 1 Signed ReportBLOOD GAS W/ELECTROLYTES 2022-03-08 06:48:00 Test Item Value Reference Range Interpretation Comments ARTERIAL BLOOD GAS PH 7.53 7.35-7.45 H (test code = PHA) ARTERIAL BLOOD GAS PCO2 32.3 mmHg 35.0-45.0 L (test code = PCO2A) ARTERIAL BLOOD GAS PO2 105.4 mmHg 80.0-95.0 H (test code = PO2A) BICARBONATE TOTAL HCO3 26.2 mmol/L 22.0-24.0 H (test code = HCO3) BASE EXCESS (test code = 3.7 mmol/L See_Comment H [A utomated CINTHIA) message] The system which generated this result transmit son reference range : (+/-)2.0. The reference range was not used to interpret this result as normal/abnormal . ABG O2 SATURATION (test 98.1 % 95.0-100.0 N code = SATA) ARTERIAL FIO2 (test code 40.0 % = FIO2A) ABG VENT MODE (test code Ventilator = MODEA) ALLENS TEST (test code = No ALLENS) SODIUM (POC) (test code 137 mmol/L 135-147 N = NA/ABG) POTASSIUM (POC) (test 4.07 mmol/L 3.6-5.2 N code = K/ABG) CHLORIDE (ARTERIAL) 103 mmol/L 98-108 N (test code = CL/ABG) GLUCOSE (test code = 113 mg/dL 70-104 H GLU/ABG) IONIZED CALCIUM (test 1.08 mmol/L 1.12-1.32 L code = CAIABG) POC LACTIC ACID (test 2.31 mmol/L 0.5-2.2 H code = POCLAC) TOTAL HGB (test code = 11.0 g/dL 12.0-16.0 L THB) OXYHEMOGLOBIN (test code 97.8 % 92.0-98.0 N = OOHGBT) CARBOXYHEMOGLOBIN (test 0.0 % 0-5.0 N code = HOHGBT) METHEMOGLOBIN (test code <0.8 % 0-1.5 N = METHGB) HHb (test code = HHB) 1.9 % TCO2 ARTERIAL (test code 27.2 MMOL/L 24-30 N = TCO2A) [id number] 05:23:00 Test Item Value Reference Range Interpretation Comments GLUBED (test code = GLUBED) 112 MG/DL 70-105 H CBC W/AUTO [id number] 04:24:00 Test Item Value Reference Range Interpretation Comments WHITE BLOOD CELL (test code = 14.0 x10 3/uL 4.8-10.8 H WBC) RED BLOOD CELL (test code = 3.40 x10 6/uL 4.20-5.40 L RBC) HEMOGLOBIN (test code = HGB) 9.9 g/dL 12.0-16.0 L HEMATOCRIT (test code = HCT) 29.2 % 37.0-47.0 L MEAN CELL VOLUME (test code = 85.9 fL 81.0-99.0 N MCV) MEAN CELL HGB (test code = 29.1 pg 27-31 N MCH) MEAN CELL HGB CONCENTRATION 33.9 G/DL 33-36.5 N (test code = MCHC) RED CELL DISTRIBUTION WIDTH 15.9 % 12.9-16.9 N (test code = RDW) PLATELET COUNT (test code = 127 x10 3/uL 150-440 L PLT) MEAN PLATELET VOLUME (test 10.5 fL 8.9-12.4 N code = MPV) NEUTROPHIL % (test code = NT%) 88.8 % 42.2-75.2 H LYMPHOCYTE % (test code = LY%) 4.5 % 20.5-51.1 L MONOCYTE % (test code = MO%) 3.3 % 1.7-9.3 N EOSINOPHIL % (test code = EO%) 0.2 % 0.0-7.0 N BASOPHIL % (test code = BA%) 0.3 % 0-2.5 N NEUTROPHIL # (test code = NT#) 12.47 x10 3/uL 1.80-7.70 H LYMPHOCYTE # (test code = LY#) 0.63 x10 3/uL 1.00-4.80 L MONOCYTE # (test code = MO#) 0.46 x10 3/uL 0.00-0.80 N EOSINOPHIL # (test code = EO#) 0.03 x10 3/uL 0.00-0.45 N BASOPHIL # (test code = BA#) 0.04 x10 3/uL 0.0-0.20 N BASIC METABOLIC [id number] 04:20:00 Test Item Value Reference Range Interpretation Comments SODIUM (test code 141 mmol/L 136-145 N Please not e: New = NA) Reference Range Jun 2020 POTASSIUM (test 3.7 mmol/L 3.5-5.1 N code = K) CHLORIDE (test 105 mmol/L 98-107 N Please note: New code = CL) Reference Range Jun 2020 CARBON DIOXIDE 27 mmol/L 20-31 N Please note: New (test code = CO2) Reference Range Jun 2020 GLUCOSE (test code 110 mg/dL 74-106 H Please no te: New = GLU) Reference Range Jun 2020 BLOOD UREA 22 mg/dL 9-23 N Please note: Ne w NITROGEN (test Reference Ran ge Feb code = BUN) 2020 GLOMERULAR >=60 max >60 Units are FILTRATION RATE estimate mL/min mL/min/1. 73m2 The (test code = GFR) estimated glomerular filtration rate is computed usingpatient ra ce, age (>18), sex, and serum creatinin e. If anyof the neede d data elements a re missing the Laboratory marcos ot compute an estimation of t he glomerular filtration rate . CREATININE (test 0.70 mg/dL 0.55-1.02 N Please note : New code = CREAT) Reference Rang e Jun 2020 CALCIUM (test code 7.5 mg/dL 8.7-10.4 L Please no te: New = CA) Reference Range Jun 2020 [id number] 04:20:00 Test Item Value Reference Range Interpretation Comments PHOSPHOROUS (test code 2.1 mg/dL 2.4-5.1 L Pleas e note: New = PHOS) Reference Range Jun 2020 [id number] 04:20:00 Test Item Value Reference Range Interpretation Comments MAGNESIUM (test code = 1.8 mg/dL 1.6-2.6 N Pleas e note: New MAG) Reference Range Jun 2020 [id number] 00:35:00 Test Item Value Reference Range Interpretation Comments GLUBED (test code = GLUBED) 117 MG/DL 70-105 H BASIC METABOLIC [id number] 17:43:00 Test Item Value Reference Range Interpretation Comments SODIUM (test code 142 mmol/L 136-145 N Please not e: New = NA) Reference Range Jun 2020 POTASSIUM (test 3.5 mmol/L 3.5-5.1 N code = K) CHLORIDE (test 106 mmol/L 98-107 N Please note: New code = CL) Reference Range Jun 2020 CARBON DIOXIDE 26 mmol/L 20-31 N Please note: New (test code = CO2) Reference Range Jun 2020 GLUCOSE (test code 105 mg/dL 74-106 N Please no te: New = GLU) Reference Range Jun 2020 BLOOD UREA 23 mg/dL 9-23 N Please note: Ne w NITROGEN (test Reference Ran ge Feb code = BUN) 2020 GLOMERULAR >=60 max >60 Units are FILTRATION RATE estimate mL/min mL/min/1. 73m2 The (test code = GFR) estimated glomerular filtration rate is computed usingpatient ra ce, age (>18), sex, and serum creatinin e. If anyof the neede d data elements a re missing the Laboratory marcos ot compute an estimation of t he glomerular filtration rate . CREATININE (test 0.80 mg/dL 0.55-1.02 N Please note : New code = CREAT) Reference Rang e Jun 2020 CALCIUM (test code 7.4 mg/dL 8.7-10.4 L Please no te: New = CA) Reference Range Jun 2020 [id number] 17:43:00 Test Item Value Reference Range Interpretation Comments PHOSPHOROUS (test code 2.3 mg/dL 2.4-5.1 L Pleas e note: New = PHOS) Reference Range Jun 2020 [id number] 17:43:00 Test Item Value Reference Range Interpretation Comments MAGNESIUM (test code = 2.0 mg/dL 1.6-2.6 N Pleas e note: New MAG) Reference Range Jun 2020 [id number] 16:38:00 Test Item Value Reference Range Interpretation Comments SURGICAL (test code = SR) R UN DATE: 03/07/22 [facility] - LAB PAGE 1 RUN TIME: 1638 Specimen Inquiry RUN USER: INTERFACE P ATIENT: JESUS JACOBS LOC: Pablo MICU U #: [id number] AGE/SX: 76/F ROOM: Ira2 RE02/27/22REG DR: Jaime Harvey MD : 41 BED: 1 DIS: STATUS: ADM IN TLOC: SPEC #: [id number] RECD: 03/06/22 STATUS: DONNA RE #: [id number] CALLIE: 03/04/[address]: Jaime Harvey MD ENTERED: 03/06/22 SP TYPE: SURGICAL OTHR DR: Yadiel Carrion Joseph C Jr MD Khan, Mehreen S MD Undefined Provider Bakari Mcmahan MDORDERED: 27130, 48740, ANATOMIC SPEC HISTOLOGY: TISSUE ID BLK PCS LATESHA LEV / PROCEDURE DISPOSITION ____ ___ ___ ___ ___ SMINNT A 5 1 ILE B 3 1 TISSUES: A. SMALL INTESTINE RESECTION NOT TUMOR - Small Bowel with Illeostomy B. ILEUM, NOS - Illeum FINAL DIAGNOSIS A. SMALL BOWEL LOOP ILEOSTOMY, REVERSAL: Severe serosal acute and chronic inflammation. B. ILEUM, SEGMENTAL RESECTION (7.4 cm length): Severe serosal acute and chronic inflammation. GROSS DESCRIPTION A. Received in formalin, labeled with the patient's name, date of and designatedspecimen A "small bowel with ileostomy". It consists of an ileostomy specimen withattached small bowel, extending 3 cm past the ostomy on one side and 4.5 cm past the otherside. The stoma is toth brown with a diameter of 1.7 cm. The resections margins arestapled. The external surface of the specimen is toth brown with rough green exudate. Thespecimen is opened revealing a toth green mucosal surface with rugal folds. Additionally,an area of stricture is identified towards the end of one of the stapled margins. Thespecimen has an average wall thickness of 0.4 cm. The specimen is submittedrepresentatively as follows: A1 - section through stoma; A2 and A3 - opposing closedstapled margins; A4 - section to include green exudate coating external surface; A5 - areaof stricture. B. Received in formalin, labeled with the patient's name, date of and designatedspecimen B "ileum". It consists of a segment of small bowel that is unoriented with twoclosed stapled ends. The specimen measures 7.4 cm in total length with an average diameterof 3 cm. The external surface is otth brown with white and green pasty exudate coating theexternal surface. The specimen is sectioned longitudinally, revealing a toth green mucosalsurface with unremarkable rugal folds. The specimen has an average wall thickness of 0.3cm. [employer] sections are taken and submitted as follows: B1 and B2 - opposing CONTINUED ON NEXT PAGE R UN DATE: 03/07/22 [facility] - LAB PAGE 2 RUN TIME: 1638 Specimen Inquiry RUN USER: INTERFACE S [facility] #: [id number] PATIENT: JESUS JACOBS #[id number] (Continued) GROSS DESCRIPTION (Continued) margins; B3 - pharmaceutical representative cross sections to include exudate. PING/mychal Technical component performed at [facility], [facility], [address] Immunohistochemistry: This test was developed and its performance characteristicsdetermined by this laboratory. It has not been approved nor does it need approval by the USFDA. Appropriate positive and negative controls are reviewed and judged to be acceptable.This laboratory is certified under the Clinical Laboratory Improvement Amendments (CLIA-88)as qualified to perform high complexity clinical laboratory testing. MICROSCOPIC DESCRIPTION Unless gross only, the diagnosis is based upon microscopic examination. CLINICAL INFORMATION Illeocolon Fistula/Sepsis Unknown Etiology ------- Signed SIGNATURE ON FILE Tato Rothman 03/07/22 9248 END OF REPORT BLOOD GAS [id number] 11:45:00 Test Item Value Reference Range Interpretation Comments ARTERIAL BLOOD GAS PH 7.46 7.35-7.45 H (test code = PHA) ARTERIAL BLOOD GAS PCO2 32.9 mmHg 35.0-45.0 L (test code = PCO2A) ARTERIAL BLOOD GAS PO2 101.2 mmHg 80.0-95.0 H (test code = PO2A) BICARBONATE TOTAL HCO3 23.0 mmol/L 22.0-24.0 N (test code = HCO3) BASE EXCESS (test code = -0.2 mmol/L See_Comment N [A utomated CINTHIA) message] The system which generated this result transmit son reference range : (+/-)2.0. The reference range was not used to interpret this result as normal/abnormal . ABG O2 SATURATION (test 97.6 % 95.0-100.0 N code = SATA) ARTERIAL FIO2 (test code 40.0 % = FIO2A) ABG VENT MODE (test code CPAP = MODEA) ABG VENT RESP RATE (test 25 /MIN code = RRA) ABG TIDAL VOLUME (test 280.0 ML code = TIDAL VOLUME) ABG PEEP (test code = 5.0 cmH2O PEEP) ABG SITE (test code = Left Radial SITEA) ALLENS TEST (test code = Yes ALLENS) SODIUM (POC) (test code 137 mmol/L 135-147 N = NA/ABG) POTASSIUM (POC) (test 3.55 mmol/L 3.6-5.2 L code = K/ABG) CHLORIDE (ARTERIAL) 104 mmol/L 98-108 N (test code = CL/ABG) GLUCOSE (test code = 102 mg/dL 70-104 N GLU/ABG) IONIZED CALCIUM (test 1.05 mmol/L 1.12-1.32 L code = CAIABG) POC LACTIC ACID (test 1.94 mmol/L 0.5-2.2 N code = POCLAC) TOTAL HGB (test code = 11.8 g/dL 12.0-16.0 L THB) OXYHEMOGLOBIN (test code 97.0 % 92.0-98.0 N = OOHGBT) CARBOXYHEMOGLOBIN (test 0.3 % 0-5.0 N code = HOHGBT) METHEMOGLOBIN (test code <0.8 % 0-1.5 N = METHGB) HHb (test code = HHB) 2.4 % TCO2 ARTERIAL (test code 24.0 MMOL/L 24-30 N = TCO2A) [id number] 11:15:00 Test Item Value Reference Range Interpretation Comments GLUBED (test code = GLUBED) 102 MG/DL 70-105 N - XR CHEST 1 [id number] 08:32:00 [facility] 1945 Sex: FPatient Name: JESUS JACOBS Unit No: [id number] EXAMS: CPT CODE: [id number] XR CHEST 1 V 41354 CHEST, SINGLE VIEW LOCATION: A1 HISTORY: Respiratory failure. A single view of the chest at 4:09 AM was compared to a prior exam from March 06, 2022. FINDINGS: Bibasilar infiltrative/atelectatic changes and moderate effusions are stable along with mild cardiomegaly and central pulmonary vascular congestion. Lines and tubes are unchanged. No new findings are seen. IMPRESSION: No change from the prior exam. at 0832 Reported and signed by: Ryder Perez Jr, MD CC: Jaime Harvey MD; Estefanía Mcdonnell Technologist: Bárbara Aguilar RT (R), (CT) Fluoro Time: DAP (Gy m2): Air Kerma (mGy): Trscr Dt/Tm: 03/07/2022 (0832) by:Darrell Printed Date/Time: 03/07/2022 (0887) Name: JESUS JACOBS [facility] Phys: [id number] - Estefanía Mcdonnell APRN [address] : 1945 Age: 76 Sex: [place] [address] Loc: P.0212 1 Exam Date: 03/07/2022 Status: ADM IN PH: FAX: PAGE 1 Signed ReportBASIC METABOLIC PANEL 2022-03-07 04:58:00 Test Item Value Reference Range Interpretation Comments SODIUM (test code 143 mmol/L 136-145 N Please not e: New = NA) Reference Range Jun 2020 POTASSIUM (test 3.1 mmol/L 3.5-5.1 L code = K) CHLORIDE (test 105 mmol/L 98-107 N Please note: New code = CL) Reference Range Jun 2020 CARBON DIOXIDE 24 mmol/L 20-31 N Please note: New (test code = CO2) Reference Range Jun 2020 GLUCOSE (test code 91 mg/dL 74-106 N Please no te: New = GLU) Reference Range Jun 2020 BLOOD UREA 22 mg/dL 9-23 N Please note: Ne w NITROGEN (test Reference Ran ge Feb code = BUN) 2020 GLOMERULAR >=60 max >60 Units are FILTRATION RATE estimate mL/min mL/min/1. 73m2 The (test code = GFR) estimated glomerular filtration rate is computed usingpatient ra ce, age (>18), sex, and serum creatinin e. If anyof the neede d data elements a re missing the Laboratory marcos ot compute an estimation of t he glomerular filtration rate . CREATININE (test 0.80 mg/dL 0.55-1.02 N Please note : New code = CREAT) Reference Rang e Jun 2020 CALCIUM (test code 7.4 mg/dL 8.7-10.4 L Please no te: New = CA) Reference Range Jun 2020 [id number] 04:58:00 Test Item Value Reference Range Interpretation Comments PHOSPHOROUS (test code 2.6 mg/dL 2.4-5.1 N Pleas e note: New = PHOS) Reference Range Jun 2020 [id number] 04:58:00 Test Item Value Reference Range Interpretation Comments MAGNESIUM (test code = 1.9 mg/dL 1.6-2.6 N Pleas e note: New MAG) Reference Range Jun 2020 CBC W/AUTO [id number] 04:41:00 Test Item Value Reference Range Interpretation Comments WHITE BLOOD CELL (test code = 11.8 x10 3/uL 4.8-10.8 H WBC) RED BLOOD CELL (test code = 3.09 x10 6/uL 4.20-5.40 L RBC) HEMOGLOBIN (test code = HGB) 8.9 g/dL 12.0-16.0 L HEMATOCRIT (test code = HCT) 26.6 % 37.0-47.0 L MEAN CELL VOLUME (test code = 86.1 fL 81.0-99.0 N MCV) MEAN CELL HGB (test code = 28.8 pg 27-31 N MCH) MEAN CELL HGB CONCENTRATION 33.5 G/DL 33-36.5 N (test code = MCHC) RED CELL DISTRIBUTION WIDTH 16.1 % 12.9-16.9 N (test code = RDW) PLATELET COUNT (test code = 108 x10 3/uL 150-440 L PLT) MEAN PLATELET VOLUME (test 11.3 fL 8.9-12.4 N code = MPV) NEUTROPHIL % (test code = NT%) 89.3 % 42.2-75.2 H LYMPHOCYTE % (test code = LY%) 5.0 % 20.5-51.1 L MONOCYTE % (test code = MO%) 2.5 % 1.7-9.3 N EOSINOPHIL % (test code = EO%) 0.2 % 0.0-7.0 N BASOPHIL % (test code = BA%) 0.3 % 0-2.5 N NEUTROPHIL # (test code = NT#) 10.53 x10 3/uL 1.80-7.70 H LYMPHOCYTE # (test code = LY#) 0.59 x10 3/uL 1.00-4.80 L MONOCYTE # (test code = MO#) 0.29 x10 3/uL 0.00-0.80 N EOSINOPHIL # (test code = EO#) 0.02 x10 3/uL 0.00-0.45 N BASOPHIL # (test code = BA#) 0.03 x10 3/uL 0.0-0.20 N Novel Coronavirus [id number] 14:49:00 Test Item Value Reference Range Interpretation Comments Novel Coronavirus Negative Negative Positive r esults are 2019 Inhouse (test indicativ e of the presence code = [id number]) ofSARS-CoV -2 RNA, clinical correlation wit h patient historyand othe r diagnostic info rmation is necessary to determinepatien t infection status. Positiv e results do not rule out bacterial infection or co -infection with other viru ses. Negative result s do not preclude SARS-C oV-2 infection andsh ould not be used as the ana e basis for patient managementdecis ions. Negative result s must be combined with otherclinical observations, p atient history, and epidemiological information . Detection of SARS-CoV-2 RNA may be affe cted bysample collec tion methods, storag e conditions, and /or stageof infection. Bonita l RNA mutations, vacc inations, antiviraltherap eutics, antibiotics, chemotherapeuti c orimmunosuppres jes drugs have not been e valuated for effectson d etection. Results are for the identification of SARS-CoV-2 RNA usingreal-time (RT) polymerase zeenat n reaction (PCR) technolog yfor the qualitative det ection of nucleic acids f rom [id number] v irus and diagnosis of SA RS-CoV-2 virusinfection. It is an Emergency Use Authorization ( EUA) testauthorized by the U.S. FDA. Novel Coronavirus [id number] 14:49:00 Test Item Value Reference Range Interpretation Comments Novel Coronavirus Negative Negative Positive r esults are 2019 Inhouse (test indicativ e of the presence code = [id number]) ofSARS-CoV -2 RNA, clinical correlation wit h patient historyand othe r diagnostic info rmation is necessary to determinepatien t infection status. Positiv e results do not rule out bacterial infection or co -infection with other viru ses. Negative result s do not preclude SARS-C oV-2 infection andsh ould not be used as the ana e basis for patient managementdecis ions. Negative result s must be combined with otherclinical observations, p atient history, and epidemiological information . Detection of SARS-CoV-2 RNA may be affe cted bysample collec tion methods, storag e conditions, and /or stageof infection. Bonita l RNA mutations, vacc inations, antiviraltherap eutics, antibiotics, chemotherapeuti c orimmunosuppres jes drugs have not been e valuated for effectson d etection. Results are for the identification of SARS-CoV-2 RNA usingreal-time (RT) polymerase zeenat n reaction (PCR) technolog yfor the qualitative det ection of nucleic acids f rom [id number]-[id number] v irus and diagnosis of SA RS-CoV-2 virusinfection. It is an Emergency Use Authorization ( EUA) testauthorized by the U.S. FDA. - CT HEAD/BRAIN W/O [id number] 11:37:00 [facility] 1945 Sex: FPatient Name: JESUS JACOBS Unit No: [id number] EXAMS: CPT CODE: [id number] CT HEAD/BRAIN W/O CONT [id number] EXAM: - CT HEAD/BRAIN W/O CONT DATE: 03/06/2022 8:42 AM. INDICATION: AMS, RUE weakness . COMPARISON: None available. TECHNIQUE: Noncontrast images of the brain are obtained from the skull base to the vertex. Axial, sagittal, and coronal images are interpreted. AEC, mA/kV adjustment by patient size, and/or iterative reconstruction technique were used, per departmental dose-optimization program. IV contrast: None. DLP: 881.4 mGy-cm. FINDINGS: BRAIN PARENCHYMA/VENTRICLES There is no evidence of cerebral edema, mass, mass effect, hemorrhage, or recent cortical infarct. The roth-white d istinction appears maintained. There is mild, generalized volume loss. The ventricles are normal in size and configuration. The basal cisterns appear patent. The cerebellopontine angles appear unremarkable. ORBITS, VISIBLE PARANASAL SINUSES AND MASTOIDS The visible paranasal sinuses are predominantly c lear. The mastoid air cells are clear. No acute orbital abnormality is seen. Partially visualized ETtube and left nasogastric tube. SKULL No skull fracture or focal lesion is identified. IMPRESSION: No acute intracranial abnormality. at 1137 Reported and signed by: Deni Cross MD CC: Mojgan Osborn MD; Jaime Harvey MD Technologist: KATIANA STARKS (Madie) CTDI: 42.08 DLP: 881 Trscr Dt/Tm: 03/06/2022 (1137) by:[email or web address] Printed Date/Time: 03/06/2022 (1141) Name: JESUS JACOBS [facility] Phys: Mojgan Tovar [address] : 1945 Age: 76 Sex: F [place] [address] Loc: P.0212 1 Exam Date: 03/06/2022 Status: ADM IN PH: FAX: PAGE 1 Signed [id number] 11:08:00 Test Item Value Reference Range Interpretation Comments GLUBED (test code = GLUBED) 100 MG/DL 70-105 N - XR CHEST 1 [id number] 09:35:00 [facility] : 1945 Sex: FPatient Name: JESUS JACOBS Unit No: [id number] EXAMS: CPT CODE: [id number] XR CHEST 1 V 19680 Chest Radiograph History: Respiratory failure Comparison: March 05, 2022 Location: H45 A single frontal view of the chest is submitted. The heart appears unchanged in size. There is mild pulmonary vascular congestion. There are bilateral pleural effusions. The bones appear unchanged. The endotracheal tube, nasogastric tube and vascular catheter appear unchanged. IMPRESSION: There is mild pulmonary vascular congestion. There are bilateral pleural effusions. Compared to the prior exam, there has been little change. at 0935 Reported and signed by: DENAE REDDY M.D. CC: Jaime Harvey MD; Estefanía Mcdonnell Technologist: Bárbara Guevara RT (R), (CT) Fluoro Time: DAP (Gy m2): Air Kerma (mGy): Trscr Dt/Tm: 03/06/2022 (0935) by:[email or web address] Printed Date/Time: 03/06/2022 (0973) Name: JESUS JACOBS [facility] Phys: Estefanía Nicole APRN [address] : 1945 Age: 76 Sex: F [place], [place] [id number] Loc: P.0212 1 Exam Date: 03/06/2022 Status: ADM IN PH: FAX: PAGE 1 Signed ReportBLOOD GAS [id number] 07:40:00 Test Item Value Reference Range Interpretation Comments ARTERIAL BLOOD GAS PH 7.47 7.35-7.45 H (test code = PHA) ARTERIAL BLOOD GAS PCO2 32.7 mmHg 35.0-45.0 L (test code = PCO2A) ARTERIAL BLOOD GAS PO2 77.4 mmHg 80.0-95.0 L (test code = PO2A) BICARBONATE TOTAL HCO3 23.1 mmol/L 22.0-24.0 N (test code = HCO3) BASE EXCESS (test code = -0.1 mmol/L See_Comment N [A utomated CINTHIA) message] The system which generated this result transmit son reference range : (+/-)2.0. The reference range was not used to interpret this result as normal/abnormal . ABG O2 SATURATION (test 95.7 % 95.0-100.0 N code = SATA) ARTERIAL FIO2 (test code 40.0 % = FIO2A) ABG VENT MODE (test code CPAP = MODEA) ABG PEEP (test code = 5.0 cmH2O PEEP) ALLENS TEST (test code = Yes ALLENS) SODIUM (POC) (test code 134 mmol/L 135-147 L = NA/ABG) POTASSIUM (POC) (test 3.48 mmol/L 3.6-5.2 L code = K/ABG) CHLORIDE (ARTERIAL) 107 mmol/L 98-108 N (test code = CL/ABG) GLUCOSE (test code = 126 mg/dL 70-104 H GLU/ABG) IONIZED CALCIUM (test 1.06 mmol/L 1.12-1.32 L code = CAIABG) POC LACTIC ACID (test 1.98 mmol/L 0.5-2.2 N code = POCLAC) TOTAL HGB (test code = 12.2 g/dL 12.0-16.0 N THB) OXYHEMOGLOBIN (test code 95.2 % 92.0-98.0 N = OOHGBT) CARBOXYHEMOGLOBIN (test 0.2 % 0-5.0 N code = HOHGBT) METHEMOGLOBIN (test code <0.8 % 0-1.5 N = METHGB) HHb (test code = HHB) 4.3 % TCO2 ARTERIAL (test code 24.1 MMOL/L 24-30 N = TCO2A) [id number] 07:38:00 Test Item Value Reference Range Interpretation Comments AMMONIA (test code = AMM) 14 mcmol/L 11-32 N [id number] 06:43:00 Test Item Value Reference Range Interpretation Comments GLUBED (test code = GLUBED) 105 MG/DL 70-105 N BASIC METABOLIC [id number] 05:00:00 Test Item Value Reference Range Interpretation Comments SODIUM (test code 142 mmol/L 136-145 N Please not e: New = NA) Reference Range Jun 2020 POTASSIUM (test 3.8 mmol/L 3.5-5.1 N code = K) CHLORIDE (test 109 mmol/L 98-107 H Please note: New code = CL) Reference Range Jun 2020 CARBON DIOXIDE 23 mmol/L 20-31 N Please note: New (test code = CO2) Reference Range Jun 2020 GLUCOSE (test code 106 mg/dL 74-106 N Please no te: New = GLU) Reference Range Jun 2020 BLOOD UREA 29 mg/dL 9-23 H Please note: Ne w NITROGEN (test Reference Ran ge Feb code = BUN) 2020 GLOMERULAR >=60 max >60 Units are FILTRATION RATE estimate mL/min mL/min/1. 73m2 The (test code = GFR) estimated glomerular filtration rate is computed usingpatient ra ce, age (>18), sex, and serum creatinin e. If anyof the neede d data elements a re missing the Laboratory marcos ot compute an estimation of t he glomerular filtration rate . CREATININE (test 0.80 mg/dL 0.55-1.02 N Please note : New code = CREAT) Reference Rang e Jun 2020 CALCIUM (test code 7.3 mg/dL 8.7-10.4 L Please no te: New = CA) Reference Range Jun 2020 COMPREHENSIVE METABOLIC [id number] 05:00:00 Test Item Value Reference Range Interpretation Comments TOTAL PROTEIN (test 3.9 g/dL 5.7-8.2 L Please n ote: New code = PROT) Reference Range Jun 2020 ALBUMIN (test code = 2.4 g/dL 3.2-4.8 L Please note: New ALB) Reference Range Jun 2020 BILIRUBIN TOTAL (test 0.7 mg/dL 0.3-1.2 N Please note: New code = BILT) Reference Range Jun 2020 SGOT/AST (test code = 20 U/L <34 N Please note: New AST) Reference Range Jun 2020 SGPT/ALT (test code = 15 U/L 10-49 N Please note: New ALT) Reference Range Jun 2020 ALKALINE PHOSPHATASE 73 U/L 46-116 N Please note: New (test code = ALKP) Reference Range Jun 2020 RENAL FUNCTION [id number] 05:00:00 Test Item Value Reference Range Interpretation Comments PHOSPHOROUS (test code 3.2 mg/dL 2.4-5.1 N Pleas e note: New = PHOS) Reference Range Jun 2020 [id number] 05:00:00 Test Item Value Reference Range Interpretation Comments MAGNESIUM (test code = 1.9 mg/dL 1.6-2.6 N Pleas e note: New MAG) Reference Range Jun 2020 CBC W/AUTO [id number] 04:47:00 Test Item Value Reference Range Interpretation Comments WHITE BLOOD CELL (test code = 12.8 x10 3/uL 4.8-10.8 H WBC) RED BLOOD CELL (test code = 3.97 x10 6/uL 4.20-5.40 L RBC) HEMOGLOBIN (test code = HGB) 11.6 g/dL 12.0-16.0 L HEMATOCRIT (test code = HCT) 33.4 % 37.0-47.0 L MEAN CELL VOLUME (test code = 84.1 fL 81.0-99.0 N MCV) MEAN CELL HGB (test code = 29.2 pg 27-31 N MCH) MEAN CELL HGB CONCENTRATION 34.7 G/DL 33-36.5 N (test code = MCHC) RED CELL DISTRIBUTION WIDTH 15.9 % 12.9-16.9 N (test code = RDW) PLATELET COUNT (test code = 142 x10 3/uL 150-440 L PLT) MEAN PLATELET VOLUME (test 11.7 fL 8.9-12.4 N code = MPV) NEUTROPHIL % (test code = NT%) 91.5 % 42.2-75.2 H LYMPHOCYTE % (test code = LY%) 3.6 % 20.5-51.1 L MONOCYTE % (test code = MO%) 1.4 % 1.7-9.3 L EOSINOPHIL % (test code = EO%) 0.2 % 0.0-7.0 N BASOPHIL % (test code = BA%) 0.6 % 0-2.5 N NEUTROPHIL # (test code = NT#) 11.71 x10 3/uL 1.80-7.70 H LYMPHOCYTE # (test code = LY#) 0.46 x10 3/uL 1.00-4.80 L MONOCYTE # (test code = MO#) 0.18 x10 3/uL 0.00-0.80 N EOSINOPHIL # (test code = EO#) 0.03 x10 3/uL 0.00-0.45 N BASOPHIL # (test code = BA#) 0.08 x10 3/uL 0.0-0.20 N [id number] 23:44:00 Test Item Value Reference Range Interpretation Comments GLUBED (test code = GLUBED) 86 MG/DL 70-105 N [id number] 21:49:00 Test Item Value Reference Range Interpretation Comments POTASSIUM (test code = K) 4.0 mmol/L 3.5-5.1 N [id number] 21:49:00 Test Item Value Reference Range Interpretation Comments MAGNESIUM (test code = 2.0 mg/dL 1.6-2.6 N Pleas e note: New MAG) Reference Range Jun 2020 CBC W/O [id number] 21:26:00 Test Item Value Reference Range Interpretation Comments WHITE BLOOD CELL (test code = 13.7 x10 3/uL 4.8-10.8 H WBC) RED BLOOD CELL (test code = 3.99 x10 6/uL 4.20-5.40 L RBC) HEMOGLOBIN (test code = HGB) 11.4 g/dL 12.0-16.0 L HEMATOCRIT (test code = HCT) 34.2 % 37.0-47.0 L MEAN CELL VOLUME (test code = 85.7 fL 81.0-99.0 N MCV) MEAN CELL HGB (test code = MCH) 28.6 pg 27-31 N MEAN CELL HGB CONCENTRATION 33.3 G/DL 33-36.5 N (test code = MCHC) RED CELL DISTRIBUTION WIDTH 15.8 % 12.9-16.9 N (test code = RDW) PLATELET COUNT (test code = 130 x10 3/uL 150-440 L PLT) [id number] 18:38:00 Test Item Value Reference Range Interpretation Comments GLUBED (test code = GLUBED) 79 MG/DL 70-105 N [id number] 15:47:00 Test Item Value Reference Range Interpretation Comments GLUBED (test code = GLUBED) 102 MG/DL 70-105 N [id number] 15:16:00 Test Item Value Reference Range Interpretation Comments GLUBED (test code = GLUBED) 58 MG/DL 70-105 L [id number] 12:33:00 Test Item Value Reference Range Interpretation Comments GLUBED (test code = GLUBED) 55 MG/DL 70-105 L - XR CHEST 1 [id number] 07:30:00 [facility] 1945 Sex: FPatient Name: JESUS JACOBS Unit No: [id number] EXAMS: CPT CODE: [id number] XR CHEST 1 V 99016 HISTORY: ET tube placement Comparison to prior from yesterday Location code: B2 FINDINGS: Frontal view of the chest demonstrates normal cardiomediastinal silhouette. The trachea is midline. Mild bilateral layering effusions. No pneumothorax. Left pacer device is intact. The bones are intact. ET tube and NG tube are in good position, along with a right IJ catheter. IMPRESSION: Mild CHF at 0730 Reported and signed by: Micha Cervantes M.D. CC: Yadiel Carrion DO; Jaime Harvey MD Technologist: Bárbara Aguilar RT (R), (CT) Fluoro Time: DAP (Gy m2): Air Kerma (mGy): Trscr Dt/Tm: 03/05/2022 (0730) by:[email or web address] Printed Date/Time: 03/05/2022 (0733) Name: JESUS JACOBS [facility] Phys: Yadiel Solorio [address] : 1945 Age: 76 Sex: F [place], [place] [address] Loc: P.0212 1 Exam Date: 03/05/2022 Status: ADM IN PH: FAX: PAGE 1 Signed [id number] 06:17:00 Test Item Value Reference Range Interpretation Comments GLUBED (test code = GLUBED) 76 MG/DL 70-105 N COMPREHENSIVE METABOLIC [id number] 04:35:00 Test Item Value Reference Range Interpretation Comments TOTAL PROTEIN (test 3.9 g/dL 5.7-8.2 L Please n ote: New code = PROT) Reference Range Jun 2020 ALBUMIN (test code = 2.5 g/dL 3.2-4.8 L Please note: New ALB) Reference Range Jun 2020 BILIRUBIN TOTAL (test 0.7 mg/dL 0.3-1.2 N Please note: New code = BILT) Reference Range Jun 2020 SGOT/AST (test code = 18 U/L <34 N Please note: New AST) Reference Range Jun 2020 SGPT/ALT (test code = 14 U/L 10-49 N Please note: New ALT) Reference Range Jun 2020 ALKALINE PHOSPHATASE 42 U/L 46-116 L Please note: New (test code = ALKP) Reference Range Jun 2020 RENAL FUNCTION [id number] 04:35:00 Test Item Value Reference Range Interpretation Comments PHOSPHOROUS (test code 3.7 mg/dL 2.4-5.1 N Pleas e note: New = PHOS) Reference Range Jun 2020 [id number] 04:35:00 Test Item Value Reference Range Interpretation Comments MAGNESIUM (test code = 2.2 mg/dL 1.6-2.6 N Pleas e note: New MAG) Reference Range Jun 2020 BASIC METABOLIC [id number] 04:35:00 Test Item Value Reference Range Interpretation Comments SODIUM (test code = 140 mmol/L 136-145 N Please n ote: New NA) Reference Range Jun 2020 POTASSIUM (test code 3.9 mmol/L 3.5-5.1 N = K) CHLORIDE (test code = 109 mmol/L 98-107 H Please note: New CL) Reference Range Jun 2020 CARBON DIOXIDE (test 20 mmol/L 20-31 N Please note: New code = CO2) Reference Range Jun 2020 GLUCOSE (test code = 73 mg/dL 74-106 L Please note: New GLU) Reference Range Jun 2020 BLOOD UREA NITROGEN 30 mg/dL 9-23 H Please n ote: New (test code = BUN) Reference Range Jun 2020 GLOMERULAR FILTRATION 46 mL/min >60 L Units are RATE (test code = mL/min/1.7 3m2 The GFR) estimated glome rular filtration rate is computed usingp atient race, age (>18) , sex, and serum creat inine. If anyof the ne eded data elements a re missing the Lab oratory cannot compute an estimation of t he glomerular filt ration rate. CREATININE (test code 1.20 mg/dL 0.55-1.02 H Please note: New = CREAT) Reference Range Jun 2020 CALCIUM (test code = 7.5 mg/dL 8.7-10.4 L Please note: New CA) Reference Range Jun 2020 CBC W/AUTO [id number] 04:30:00 Test Item Value Reference Range Interpretation Comments WHITE BLOOD CELL (test code = 9.9 x10 3/uL 4.8-10.8 N WBC) RED BLOOD CELL (test code = 2.72 x10 6/uL 4.20-5.40 L RBC) HEMOGLOBIN (test code = HGB) 7.8 g/dL 12.0-16.0 L HEMATOCRIT (test code = HCT) 23.4 % 37.0-47.0 L MEAN CELL VOLUME (test code = 86.0 fL 81.0-99.0 N MCV) MEAN CELL HGB (test code = MCH) 28.7 pg 27-31 N MEAN CELL HGB CONCENTRATION 33.3 G/DL 33-36.5 N (test code = MCHC) RED CELL DISTRIBUTION WIDTH 15.7 % 12.9-16.9 N (test code = RDW) PLATELET COUNT (test code = 144 x10 3/uL 150-440 L PLT) MEAN PLATELET VOLUME (test code 11.0 fL 8.9-12.4 N = MPV) NEUTROPHIL % (test code = NT%) 92.0 % 42.2-75.2 H LYMPHOCYTE % (test code = LY%) 4.0 % 20.5-51.1 L MONOCYTE % (test code = MO%) 1.5 % 1.7-9.3 L EOSINOPHIL % (test code = EO%) 0.4 % 0.0-7.0 N BASOPHIL % (test code = BA%) 0.5 % 0-2.5 N NEUTROPHIL # (test code = NT#) 9.08 x10 3/uL 1.80-7.70 H LYMPHOCYTE # (test code = LY#) 0.40 x10 3/uL 1.00-4.80 L MONOCYTE # (test code = MO#) 0.15 x10 3/uL 0.00-0.80 N EOSINOPHIL # (test code = EO#) 0.04 x10 3/uL 0.00-0.45 N BASOPHIL # (test code = BA#) 0.05 x10 3/uL 0.0-0.20 N BLOOD GAS [id number] 03:45:00 Test Item Value Reference Range Interpretation Comments ARTERIAL BLOOD GAS PH 7.47 7.35-7.45 H (test code = PHA) ARTERIAL BLOOD GAS PCO2 26.3 mmHg 35.0-45.0 L (test code = PCO2A) ARTERIAL BLOOD GAS PO2 135.5 mmHg 80.0-95.0 H (test code = PO2A) BICARBONATE TOTAL HCO3 18.5 mmol/L 22.0-24.0 L (test code = HCO3) BASE EXCESS (test code = -4.5 mmol/L See_Comment L [A utomated CINTHIA) message] The system which generated this result transmit sno reference range : (+/-)2.0. The reference range was not used to interpret this result as normal/abnormal . ABG O2 SATURATION (test 98.8 % 95.0-100.0 N code = SATA) ARTERIAL FIO2 (test code 45.0 % = FIO2A) ABG VENT MODE (test code Ventilator = MODEA) ALLENS TEST (test code = No ALLENS) SODIUM (POC) (test code 130 mmol/L 135-147 L = NA/ABG) POTASSIUM (POC) (test 3.81 mmol/L 3.6-5.2 N code = K/ABG) CHLORIDE (ARTERIAL) 108 mmol/L 98-108 N (test code = CL/ABG) GLUCOSE (test code = 70 mg/dL 70-104 N GLU/ABG) IONIZED CALCIUM (test 1.08 mmol/L 1.12-1.32 L code = CAIABG) POC LACTIC ACID (test 1.85 mmol/L 0.5-2.2 N code = POCLAC) TOTAL HGB (test code = 8.0 g/dL 12.0-16.0 L THB) OXYHEMOGLOBIN (test code 97.9 % 92.0-98.0 N = OOHGBT) CARBOXYHEMOGLOBIN (test 0.6 % 0-5.0 N code = HOHGBT) METHEMOGLOBIN (test code <0.8 % 0-1.5 N = METHGB) HHb (test code = HHB) 1.2 % TCO2 ARTERIAL (test code 19.3 MMOL/L 24-30 L = TCO2A) COVID 19 Asymptomatic IH [id number] 23:40:00 Test Item Value Reference Range Interpretation Comments COVID 19 NEGATIVE NEGATIVE Negative result s, from Asymptomatic IH AG patients with symptom (test code = onset beyondfiv e days, COVNONPUIAG) should be treat ed as presumptive and confirmationwit h a molecular assay , if necessary for patientmanageme nt, may be performed. Nega tive results do not ruleout COVID-19 and sh ould not be used as the sole basis fortreatment or patient management deci sions, includinginfect ion control decisio ns. Negative result s should beconsidered in the context of a pa tient's recent exposure s,history and the presenc e of clinical signs and symptomsconsist ent with COVID-19. CBC W/MANUAL [id number] 23:38:00 Test Item Value Reference Range Interpretation Comments WHITE BLOOD CELL (test code = 8.3 x10 3/uL 4.8-10.8 N WBC) RED BLOOD CELL (test code = 2.65 x10 6/uL 4.20-5.40 L RBC) HEMOGLOBIN (test code = HGB) 7.6 g/dL 12.0-16.0 L HEMATOCRIT (test code = HCT) 23.2 % 37.0-47.0 L MEAN CELL VOLUME (test code = 87.5 fL 81.0-99.0 N MCV) MEAN CELL HGB (test code = MCH) 28.7 pg 27-31 N MEAN CELL HGB CONCENTRATION 32.8 G/DL 33-36.5 L (test code = MCHC) RED CELL DISTRIBUTION WIDTH 15.4 % 12.9-16.9 N (test code = RDW) PLATELET COUNT (test code = 148 x10 3/uL 150-440 L PLT) MEAN PLATELET VOLUME (test code 11.3 fL 8.9-12.4 N = MPV) TOTAL CELLS COUNTED (test code 100 #CELLS = TCC) SEGMENTED NEUTROPHILS (test 76 % 49-71 H code = SEG) LYMPHOCYTE (test code = LYMPH) 7 % 20-40 L BAND NEUTROPHIL (test code = 13 % 0-5 H BAND) MONOCYTE (test code = MON) 2 % 3-8 L METAMYELOCYTE (test code = 2 % 0-0 H META) PLATELET ESTIMATE (test code = ADEQUATE ADEQUATE PLTEST) PLATELET MORPHOLOGY (test code NORMAL NORMAL = PLTMORPH) BLOOD GAS [id number] 23:29:00 Test Item Value Reference Range Interpretation Comments ARTERIAL BLOOD GAS PH 7.44 7.35-7.45 N (test code = PHA) ARTERIAL BLOOD GAS PCO2 32.1 mmHg 35.0-45.0 L (test code = PCO2A) ARTERIAL BLOOD GAS PO2 135.9 mmHg 80.0-95.0 H (test code = PO2A) BICARBONATE TOTAL HCO3 21.4 mmol/L 22.0-24.0 L (test code = HCO3) BASE EXCESS (test code = -2.3 mmol/L See_Comment L [A utomated CINTHIA) message] The system which generated this result transmit son reference range : (+/-)2.0. The reference range was not used to interpret this result as normal/abnormal . ABG O2 SATURATION (test 98.4 % 95.0-100.0 N code = SATA) ARTERIAL FIO2 (test code 45.0 % = FIO2A) ABG VENT MODE (test code Ventilator = MODEA) ALLENS TEST (test code = No ALLENS) SODIUM (POC) (test code 132 mmol/L 135-147 L = NA/ABG) POTASSIUM (POC) (test 3.86 mmol/L 3.6-5.2 N code = K/ABG) CHLORIDE (ARTERIAL) 110 mmol/L 98-108 H (test code = CL/ABG) GLUCOSE (test code = 78 mg/dL 70-104 N GLU/ABG) IONIZED CALCIUM (test 1.05 mmol/L 1.12-1.32 L code = CAIABG) POC LACTIC ACID (test 1.96 mmol/L 0.5-2.2 N code = POCLAC) TOTAL HGB (test code = 8.4 g/dL 12.0-16.0 L THB) OXYHEMOGLOBIN (test code 97.8 % 92.0-98.0 N = OOHGBT) CARBOXYHEMOGLOBIN (test 0.3 % 0-5.0 N code = HOHGBT) METHEMOGLOBIN (test code <0.8 % 0-1.5 N = METHGB) HHb (test code = HHB) 1.6 % TCO2 ARTERIAL (test code 22.4 MMOL/L 24-30 L = TCO2A) BASIC METABOLIC [id number] 23:11:00 Test Item Value Reference Range Interpretation Comments SODIUM (test code = 141 mmol/L 136-145 N Please n ote: New NA) Reference Range Jun 2020 POTASSIUM (test code 4.3 mmol/L 3.5-5.1 N = K) CHLORIDE (test code = 109 mmol/L 98-107 H Please note: New CL) Reference Range Jun 2020 CARBON DIOXIDE (test 20 mmol/L 20-31 N Please note: New code = CO2) Reference Range Jun 2020 GLUCOSE (test code = 82 mg/dL 74-106 N Please note: New GLU) Reference Range Jun 2020 BLOOD UREA NITROGEN 25 mg/dL 9-23 H Please n ote: New (test code = BUN) Reference Range Jun 2020 GLOMERULAR FILTRATION 42 mL/min >60 L Units are RATE (test code = mL/min/1.7 3m2 The GFR) estimated glome rular filtration rate is computed usingp atient race, age (>18) , sex, and serum creat inine. If anyof the ne eded data elements a re missing the Lab oratory cannot compute an estimation of t he glomerular filt ration rate. CREATININE (test code 1.30 mg/dL 0.55-1.02 H Please note: New = CREAT) Reference Range Jun 2020 CALCIUM (test code = 7.5 mg/dL 8.7-10.4 L Please note: New CA) Reference Range Jun 2020 [id number] 23:11:00 Test Item Value Reference Range Interpretation Comments PHOSPHOROUS (test code 3.9 mg/dL 2.4-5.1 N Pleas e note: New = PHOS) Reference Range Jun 2020 [id number] 23:11:00 Test Item Value Reference Range Interpretation Comments MAGNESIUM (test code = 2.4 mg/dL 1.6-2.6 N Pleas e note: New MAG) Reference Range Jun 2020 BASIC METABOLIC [id number] 17:55:00 Test Item Value Reference Range Interpretation Comments SODIUM (test code = 141 mmol/L 136-145 N Please n ote: New NA) Reference Range Jun 2020 POTASSIUM (test code 4.2 mmol/L 3.5-5.1 N = K) CHLORIDE (test code = 109 mmol/L 98-107 H Please note: New CL) Reference Range Jun 2020 CARBON DIOXIDE (test 20 mmol/L 20-31 N Please note: New code = CO2) Reference Range Jun 2020 GLUCOSE (test code = 80 mg/dL 74-106 N Please note: New GLU) Reference Range Jun 2020 BLOOD UREA NITROGEN 28 mg/dL 9-23 H Please n ote: New (test code = BUN) Reference Range Jun 2020 GLOMERULAR FILTRATION 42 mL/min >60 L Units are RATE (test code = mL/min/1.7 3m2 The GFR) estimated glome rular filtration rate is computed usingp atient race, age (>18) , sex, and serum creat inine. If anyof the ne eded data elements a re missing the Lab oratory cannot compute an estimation of t he glomerular filt ration rate. CREATININE (test code 1.30 mg/dL 0.55-1.02 H Please note: New = CREAT) Reference Range Jun 2020 CALCIUM (test code = 8.3 mg/dL 8.7-10.4 L Please note: New CA) Reference Range Jun 2020 [id number] 17:55:00 Test Item Value Reference Range Interpretation Comments PHOSPHOROUS (test code 4.2 mg/dL 2.4-5.1 N Pleas e note: New = PHOS) Reference Range Jun 2020 [id number] 17:55:00 Test Item Value Reference Range Interpretation Comments MAGNESIUM (test code = 2.4 mg/dL 1.6-2.6 N Pleas e note: New MAG) Reference Range Jun 2020 URINALYSIS [id number] 17:51:00 Test Item Value Reference Range Interpretation Comments UA COLOR (test code = YELLOW DISCRIPT YELLOW COLU) UA APPEARANCE (test code SLIGHTLY CLOUDY CLEAR A = APPU) DISCRIPT UA GLUCOSE DIPSTICK (test NEGATIVE mg/dL NEGATIVE code = DGLUU) UA BILIRUBIN DIPSTICK MODERATE NEGATIVE A (test code = BILU) UA KETONE DIPSTICK (test TRACE mg/dL NEGATIVE A code = KETU) UA SPECIFIC GRAVITY (test >=1.030 1.005-1.030 code = SGU) UA BLOOD DIPSTICK (test LARGE NEGATIVE A code = SALVADOR) UA PH DIPSTICK (test code 5.0 5.0-9.0 = LIGIA) UA PROTEIN DIPSTICK (test 100 mg/dL NEGATIVE A code = PROU) UA UROBILINOGEN DIPSTICK 0.2 mg/dL 0.2-1.0 (test code = URO) UA NITRITE DIPSTICK (test NEGATIVE NEGATIVE code = MEDINA) UA LEUKOCYTE ESTERASE NEGATIVE NEGATIVE DIPSTICK (test code = LEUU) UA [id number] 17:51:00 Test Item Value Reference Range Interpretation Comments UA WBC (test code = WBCU) 3-5 #WBC/HPF 0-2 A UA RBC (test code = RBCU) 6-10 #RBC/HPF 0-2 A UA BACTERIA (test code = BACU) 2+ /HPF NONE-TRACE A UA SQUAMOUS CELLS (test code = 1+ /LPF NONE-TRACE A SQU) CBC W/AUTO [id number] 17:41:00 Test Item Value Reference Range Interpretation Comments WHITE BLOOD CELL (test 9.9 x10 3/uL 4.8-10.8 N code = WBC) RED BLOOD CELL (test 2.43 x10 6/uL 4.20-5.40 L code = RBC) HEMOGLOBIN (test code 7.0 g/dL 12.0-16.0 L Critic al Value = HGB) reported toFirs t Name:SALAZAR Last Name:EUBANKS RESULT S READ BACK AND VERIFIEDby P.LAB.MVS, on 03/04/22, @ 174 1. HEMATOCRIT (test code 21.1 % 37.0-47.0 L = HCT) MEAN CELL VOLUME (test 86.8 fL 81.0-99.0 N code = MCV) MEAN CELL HGB (test 28.8 pg 27-31 N code = MCH) MEAN CELL HGB 33.2 G/DL 33-36.5 N CONCENTRATION (test code = MCHC) RED CELL DISTRIBUTION 16.2 % 12.9-16.9 N WIDTH (test code = RDW) PLATELET COUNT (test 176 x10 3/uL 150-440 N code = PLT) MEAN PLATELET VOLUME 10.8 fL 8.9-12.4 N (test code = MPV) NEUTROPHIL % (test 92.2 % 42.2-75.2 H code = NT%) LYMPHOCYTE % (test 3.8 % 20.5-51.1 L code = LY%) MONOCYTE % (test code 2.4 % 1.7-9.3 N = MO%) EOSINOPHIL % (test 0.0 % 0.0-7.0 N code = EO%) BASOPHIL % (test code 0.5 % 0-2.5 N = BA%) NEUTROPHIL # (test 9.13 x10 3/uL 1.80-7.70 H code = NT#) LYMPHOCYTE # (test 0.38 x10 3/uL 1.00-4.80 L code = LY#) MONOCYTE # (test code 0.24 x10 3/uL 0.00-0.80 N = MO#) EOSINOPHIL # (test 0.00 x10 3/uL 0.00-0.45 N code = EO#) BASOPHIL # (test code 0.05 x10 3/uL 0.0-0.20 N = BA#) BLOOD GAS [id number] 17:05:00 Test Item Value Reference Range Interpretation Comments ARTERIAL BLOOD GAS PH 7.47 7.35-7.45 H (test code = PHA) ARTERIAL BLOOD GAS PCO2 31.7 mmHg 35.0-45.0 L (test code = PCO2A) ARTERIAL BLOOD GAS PO2 90.3 mmHg 80.0-95.0 N (test code = PO2A) BICARBONATE TOTAL HCO3 22.5 mmol/L 22.0-24.0 N (test code = HCO3) BASE EXCESS (test code -0.5 mmol/L See_Comment N [Aut omated = CINTHIA) message] The system which generated this result transmitted reference range : (+/-)2.0. The reference range was not used to interpret this result as normal/abnormal . ABG O2 SATURATION (test 97.1 % 95.0-100.0 N code = SATA) ARTERIAL FIO2 (test 40.0 % code = FIO2A) ABG VENT MODE (test Ventilator code = MODEA) ALLENS TEST (test code NOT APPLICAPLE = ALLENS) SODIUM (POC) (test code 135 mmol/L 135-147 N = NA/ABG) POTASSIUM (POC) (test 4.49 mmol/L 3.6-5.2 N code = K/ABG) CHLORIDE (ARTERIAL) 108 mmol/L 98-108 N (test code = CL/ABG) GLUCOSE (test code = 107 mg/dL 70-104 H GLU/ABG) IONIZED CALCIUM (test 0.99 mmol/L 1.12-1.32 L code = CAIABG) POC LACTIC ACID (test 3.11 mmol/L 0.5-2.2 H code = POCLAC) TOTAL HGB (test code = 12.3 g/dL 12.0-16.0 THB) OXYHEMOGLOBIN (test 96.2 % 92.0-98.0 N code = OOHGBT) CARBOXYHEMOGLOBIN (test 0.6 % 0-5.0 N code = HOHGBT) METHEMOGLOBIN (test <0.8 % 0-1.5 N code = METHGB) HHb (test code = HHB) 2.9 % TCO2 ARTERIAL (test 23.5 MMOL/L 24-30 L code = TCO2A) BLOOD GAS [id number] 17:05:00 Test Item Value Reference Range Interpretation Comments ARTERIAL BLOOD GAS PH 7.45 7.35-7.45 N (test code = PHA) ARTERIAL BLOOD GAS PCO2 34.5 mmHg 35.0-45.0 L (test code = PCO2A) ARTERIAL BLOOD GAS PO2 88.6 mmHg 80.0-95.0 N (test code = PO2A) BICARBONATE TOTAL HCO3 23.4 mmol/L 22.0-24.0 N (test code = HCO3) BASE EXCESS (test code -0.3 mmol/L See_Comment N [Aut omated = CINTHIA) message] The system which generated this result transmitted reference range : (+/-)2.0. The reference range was not used to interpret this result as normal/abnormal . ABG O2 SATURATION (test 96.8 % 95.0-100.0 N code = SATA) ARTERIAL FIO2 (test 40.0 % code = FIO2A) ABG VENT MODE (test Ventilator code = MODEA) ALLENS TEST (test code NOT APPLICAPLE = ALLENS) SODIUM (POC) (test code 135 mmol/L 135-147 N = NA/ABG) POTASSIUM (POC) (test 4.34 mmol/L 3.6-5.2 N code = K/ABG) CHLORIDE (ARTERIAL) 108 mmol/L 98-108 N (test code = CL/ABG) GLUCOSE (test code = 115 mg/dL 70-104 H GLU/ABG) IONIZED CALCIUM (test 1.01 mmol/L 1.12-1.32 L code = CAIABG) POC LACTIC ACID (test 3.05 mmol/L 0.5-2.2 H code = POCLAC) TOTAL HGB (test code = 9.6 g/dL 12.0-16.0 L THB) OXYHEMOGLOBIN (test 96.4 % 92.0-98.0 N code = OOHGBT) CARBOXYHEMOGLOBIN (test 0.1 % 0-5.0 N code = HOHGBT) METHEMOGLOBIN (test <0.8 % 0-1.5 N code = METHGB) HHb (test code = HHB) 3.2 % TCO2 ARTERIAL (test 24.4 MMOL/L 24-30 N code = TCO2A) BLOOD GAS [id number] 17:04:00 Test Item Value Reference Range Interpretation Comments ARTERIAL BLOOD GAS PH 7.42 7.35-7.45 N (test code = PHA) ARTERIAL BLOOD GAS PCO2 34.2 mmHg 35.0-45.0 L (test code = PCO2A) ARTERIAL BLOOD GAS PO2 110.6 mmHg 80.0-95.0 H (test code = PO2A) BICARBONATE TOTAL HCO3 21.7 mmol/L 22.0-24.0 L (test code = HCO3) BASE EXCESS (test code -2.4 mmol/L See_Comment L [Aut omated = CINTHIA) message] The system which generated this result transmitted reference range : (+/-)2.0. The reference range was not used to interpret this result as normal/abnormal . ABG O2 SATURATION (test 97.7 % 95.0-100.0 N code = SATA) ARTERIAL FIO2 (test 45.0 % code = FIO2A) ABG VENT MODE (test Ventilator code = MODEA) ALLENS TEST (test code NOT APPLICAPLE = ALLENS) SODIUM (POC) (test code 135 mmol/L 135-147 N = NA/ABG) POTASSIUM (POC) (test 4.17 mmol/L 3.6-5.2 N code = K/ABG) CHLORIDE (ARTERIAL) 108 mmol/L 98-108 N (test code = CL/ABG) GLUCOSE (test code = 78 mg/dL 70-104 N GLU/ABG) IONIZED CALCIUM (test 1.14 mmol/L 1.12-1.32 N code = CAIABG) POC LACTIC ACID (test 2.92 mmol/L 0.5-2.2 H code = POCLAC) TOTAL HGB (test code = 8.1 g/dL 12.0-16.0 L THB) OXYHEMOGLOBIN (test 96.9 % 92.0-98.0 N code = OOHGBT) CARBOXYHEMOGLOBIN (test 0.5 % 0-5.0 N code = HOHGBT) METHEMOGLOBIN (test <0.8 % 0-1.5 N code = METHGB) HHb (test code = HHB) 2.3 % TCO2 ARTERIAL (test 22.8 MMOL/L 24-30 L code = TCO2A) B-TYPE NATRIURETIC [id number] 10:53:00 Test Item Value Reference Range Interpretation Comments B-TYPE NATRIURETIC PEPTIDE (test 96 pg/mL <100 N code = BNP) LACTIC [id number] 10:52:00 Test Item Value Reference Range Interpretation Comments LACTIC ACID (test 2.50 mmol/L 0.5-2.0 HH Critical V alue reported code = LACT) toFirst Name:JAMES MARIE Last Name:CHRIS RETANA READ BACK AND VERIFIEDby [id number], on 03/04/22, @ 105 2. [id number] 10:50:00 Test Item Value Reference Range Interpretation Comments TROPONIN-I (test 14.6 pg/mL 27.36-66.23 L Please note : Units and code = TROPI) Reference Rang e have changedFeb 3, 2 021 BASIC METABOLIC [id number] 10:50:00 Test Item Value Reference Range Interpretation Comments SODIUM (test code = 141 mmol/L 136-145 N Please n ote: New NA) Reference Range Jun 2020 POTASSIUM (test code 4.4 mmol/L 3.5-5.1 N = K) CHLORIDE (test code = 110 mmol/L 98-107 H Please note: New CL) Reference Range Jun 2020 CARBON DIOXIDE (test 22 mmol/L 20-31 N Please note: New code = CO2) Reference Range Jun 2020 GLUCOSE (test code = 116 mg/dL 74-106 H Please note: New GLU) Reference Range Jun 2020 BLOOD UREA NITROGEN 28 mg/dL 9-23 H Please n ote: New (test code = BUN) Reference Range Jun 2020 GLOMERULAR FILTRATION 39 mL/min >60 L Units are RATE (test code = mL/min/1.7 3m2 The GFR) estimated glome rular filtration rate is computed usingp atient race, age (>18) , sex, and serum creat inine. If anyof the ne eded data elements a re missing the Lab oratory cannot compute an estimation of t he glomerular filt ration rate. CREATININE (test code 1.40 mg/dL 0.55-1.02 H Please note: New = CREAT) Reference Range Jun 2020 CALCIUM (test code = 6.8 mg/dL 8.7-10.4 L Please note: New CA) Reference Range Jun 2020 [id number] 10:50:00 Test Item Value Reference Range Interpretation Comments PHOSPHOROUS (test code 4.2 mg/dL 2.4-5.1 N Pleas e note: New = PHOS) Reference Range Jun 2020 [id number] 10:50:00 Test Item Value Reference Range Interpretation Comments MAGNESIUM (test code = 1.9 mg/dL 1.6-2.6 N Pleas e note: New MAG) Reference Range Jun 2020 BLOOD GAS [id number] 08:32:00 Test Item Value Reference Range Interpretation Comments ARTERIAL BLOOD GAS PH 7.41 7.35-7.45 N (test code = PHA) ARTERIAL BLOOD GAS PCO2 36.4 mmHg 35.0-45.0 N (test code = PCO2A) ARTERIAL BLOOD GAS PO2 132.0 mmHg 80.0-95.0 H (test code = PO2A) BICARBONATE TOTAL HCO3 22.5 mmol/L 22.0-24.0 N (test code = HCO3) BASE EXCESS (test code -1.8 mmol/L See_Comment N [Aut omated = CINTHIA) message] The system which generated this result transmitted reference range : (+/-)2.0. The reference range was not used to interpret this result as normal/abnormal . ABG O2 SATURATION (test 98.2 % 95.0-100.0 N code = SATA) ARTERIAL FIO2 (test 55.0 % code = FIO2A) ABG VENT MODE (test Ventilator code = MODEA) ALLENS TEST (test code NOT APPLICAPLE = ALLENS) SODIUM (POC) (test code 134 mmol/L 135-147 L = NA/ABG) POTASSIUM (POC) (test 4.14 mmol/L 3.6-5.2 N code = K/ABG) CHLORIDE (ARTERIAL) 107 mmol/L 98-108 N (test code = CL/ABG) GLUCOSE (test code = 131 mg/dL 70-104 H GLU/ABG) IONIZED CALCIUM (test 1.00 mmol/L 1.12-1.32 L code = CAIABG) POC LACTIC ACID (test 2.97 mmol/L 0.5-2.2 H code = POCLAC) TOTAL HGB (test code = 9.9 g/dL 12.0-16.0 L THB) OXYHEMOGLOBIN (test 97.6 % 92.0-98.0 N code = OOHGBT) CARBOXYHEMOGLOBIN (test 0.3 % 0-5.0 N code = HOHGBT) METHEMOGLOBIN (test <0.8 % 0-1.5 N code = METHGB) HHb (test code = HHB) 1.8 % TCO2 ARTERIAL (test 23.6 MMOL/L 24-30 L code = TCO2A) - XR CHEST 1 [id number] 07:37:00 [facility] 1945 Sex: FPatient Name: JESUS JACOBS Unit No: [id number] EXAMS: CPT CODE: [id number] XR CHEST 1 V [id number] EXAM: - XR CHEST 1 V COMPARISON: Prior day. LOCATION: C3 HISTORY: post- op intubation FINDINGS: Single view of the chest. Interval extubation, otherwise unchanged indwelling lines/tubes. No pneumothorax. Unchanged retrocardiac opacification and small bilateral effusions. The mediastinal contours are unchanged. IMPRESSION: As above. at 0737 Reported and signed by: JONATHAN PACHECO M.D. CC: Yadiel Carrion DO; Jaime Harvey MD Technologist: Dipti Funk Fluoro Time: DAP (Gy m2): Air Kerma (mGy): Trscr Dt/Tm: 03/04/2022 (0737) by:[email or web address] Printed Date/Time: 03/04/2022 (0741) Name: JESUS JACOBS [facility] Phys: [facility] Yadiel Carrion [address] : 1945 Age: 76 Sex: [place] [address] Loc: P.[phone] 1 Exam Date: 03/04/2022 Status: ADM IN PH: FAX: PAGE 1 Signed [id number] 06:26:00 Test Item Value Reference Range Interpretation Comments GLUBED (test code = GLUBED) 68 MG/DL 70-105 L BLOOD GAS [id number] 04:38:00 Test Item Value Reference Range Interpretation Comments ARTERIAL BLOOD GAS PH 7.28 7.35-7.45 L (test code = PHA) ARTERIAL BLOOD GAS PCO2 38.3 mmHg 35.0-45.0 N (test code = PCO2A) ARTERIAL BLOOD GAS PO2 269.9 mmHg 80.0-95.0 H (test code = PO2A) BICARBONATE TOTAL HCO3 17.6 mmol/L 22.0-24.0 L (test code = HCO3) BASE EXCESS (test code -8.4 mmol/L See_Comment L [Aut omated = CINTHIA) message] The system which generated this result transmitted reference range : (+/-)2.0. The reference range was not used to interpret this result as normal/abnormal . ABG O2 SATURATION (test 99.0 % 95.0-100.0 N code = SATA) ARTERIAL FIO2 (test 100.0 % code = FIO2A) ABG VENT MODE (test Ventilator code = MODEA) ALLENS TEST (test code NOT APPLICAPLE = ALLENS) SODIUM (POC) (test code 135 mmol/L 135-147 N = NA/ABG) POTASSIUM (POC) (test 4.16 mmol/L 3.6-5.2 N code = K/ABG) CHLORIDE (ARTERIAL) 109 mmol/L 98-108 H (test code = CL/ABG) GLUCOSE (test code = 111 mg/dL 70-104 H GLU/ABG) IONIZED CALCIUM (test 0.94 mmol/L 1.12-1.32 L code = CAIABG) POC LACTIC ACID (test 2.64 mmol/L 0.5-2.2 H code = POCLAC) TOTAL HGB (test code = 10.3 g/dL 12.0-16.0 L THB) OXYHEMOGLOBIN (test 98.4 % 92.0-98.0 H code = OOHGBT) CARBOXYHEMOGLOBIN (test 0.3 % 0-5.0 N code = HOHGBT) METHEMOGLOBIN (test <0.8 % 0-1.5 N code = METHGB) HHb (test code = HHB) 1.0 % TCO2 ARTERIAL (test 18.8 MMOL/L 24-30 L code = TCO2A) PROTHROMBIN [id number] 03:56:00 Test Item Value Reference Range Interpretation Comments PROTHROMBIN TIME 13.5 SECONDS 10.3-12.9 H PATIENT (test code = PTP) INTERNATIONAL 1.18 INR UNIT 0.9-1.11 H The INR is us eful only NORMAL RATIO (test for monit oring code = INR) anticoagulant therapy.It may be unreliable in t he initial phase o f antigoagulation and in unstable patien ts. Indication for Anticoagulation Recommended INR 1. Prevention of v enous thomboembolism 2.0-3.0in high- risk patients; treat ment of venousthrombosi s and pulmonary embol ism aftera course o f heparin; preven tion of systemicembolis m in a variety of cond itions, including atria l fibrillation an d prothetic tissu e heart valves, 2. Pros thetic mechanical hear t valves; 2.5-3.5recurren t systemic emboli sm. THROMBOPLASTIN TIME [id number] 03:56:00 Test Item Value Reference Range Interpretation Comments THROMBOPLASTIN TIME 31.9 SECONDS 23.8-34.8 N INTERPRE TATIVE PARTIAL (test code = DATA: erapeutic PTT) range: Unfractionated heparin:55 - 80 seconds Argatroban:1.5 to 3 times the basel ine PTT [id number] 03:45:00 Test Item Value Reference Range Interpretation Comments CALCIUM (test code = 4.8 mg/dL 8.7-10.4 LL Critica l Value reported CA) toFirst Name:PING WAKEFIELD Last Name:HAIDERALICIA RESULTS READ BACK AND VERIFIEDby a.ST BURKS34, on 03/04/22, @ 5537.Please not e: New Reference Range Jun 2020 [id number] 03:45:00 Test Item Value Reference Range Interpretation Comments PHOSPHOROUS (test code 3.9 mg/dL 2.4-5.1 N Pleas e note: New = PHOS) Reference Range Jun 2020 [id number] 03:45:00 Test Item Value Reference Range Interpretation Comments MAGNESIUM (test code = 1.7 mg/dL 1.6-2.6 N Pleas e note: New MAG) Reference Range Jun 2020 COMPREHENSIVE METABOLIC [id number] 03:45:00 Test Item Value Reference Range Interpretation Comments SODIUM (test code = 145 mmol/L 136-145 Please n ote: New NA) Reference Range Jun 2020 POTASSIUM (test code 4.0 mmol/L 3.5-5.1 N = K) CHLORIDE (test code = 114 mmol/L 98-107 H Please note: New CL) Reference Range Jun 2020 CARBON DIOXIDE (test 18 mmol/L 20-31 L Please note: New code = CO2) Reference Range Jun 2020 GLUCOSE (test code = 90 mg/dL 74-106 N Please note: New GLU) Reference Range Jun 2020 BLOOD UREA NITROGEN 26 mg/dL 9-23 H Please n ote: New (test code = BUN) Reference Range Jun 2020 GLOMERULAR FILTRATION 51 mL/min >60 L Units are RATE (test code = mL/min/1.7 3m2 The GFR) estimated glome rular filtration rate is computed usingp atient race, age (>18) , sex, and serum creat inine. If anyof the ne eded data elements a re missing the Lab oratory cannot compute an estimation of t he glomerular filt ration rate. CREATININE (test code 1.10 mg/dL 0.55-1.02 H Please note: New = CREAT) Reference Range Jun 2020 TOTAL PROTEIN (test 3.1 g/dL 5.7-8.2 L Please n ote: New code = PROT) Reference Range Jun 2020 ALBUMIN (test code = 1.8 g/dL 3.2-4.8 L Please note: New ALB) Reference Range Jun 2020 CALCIUM (test code = 4.9 mg/dL 8.7-10.4 LL Critica l Value CA) reported toFirs t Name:ERIC Gonzalez Name:CHELSEA RESULTS READ BACK AND VERIFIEDby a.ST GrangerJS34, on 03/04/22, @ 1071.Please not e: New Reference Range Jun 2020 BILIRUBIN TOTAL (test 0.5 mg/dL 0.3-1.2 N Please note: New code = BILT) Reference Range Jun 2020 SGOT/AST (test code = 44 U/L <34 H Please note: New AST) Reference Range Jun 2020 SGPT/ALT (test code = 31 U/L 10-49 N Please note: New ALT) Reference Range Jun 2020 ALKALINE PHOSPHATASE 50 U/L 46-116 N Please note: New (test code = ALKP) Reference Range Jun 2020 RENAL FUNCTION [id number] 03:45:00 Test Item Value Reference Range Interpretation Comments PHOSPHOROUS (test code 4.1 mg/dL 2.4-5.1 N Pleas e note: New = PHOS) Reference Range Jun 2020 LACTIC DEHYDROGENASE(LDH)2022-03-04 03:45:00 Test Item Value Reference Range Interpretation Comments LACTIC 242 U/L 120-246 N Please note: Ne w DEHYDROGENASE(LDH) Reference Range Jun 2020 (test code = LDH) [id number] 03:45:00 Test Item Value Reference Range Interpretation Comments MAGNESIUM (test code = 1.8 mg/dL 1.6-2.6 N Pleas e note: New MAG) Reference Range Jun 2020 LACTIC [id number] 03:39:00 Test Item Value Reference Range Interpretation Comments LACTIC ACID (test 2.30 mmol/L 0.5-2.0 HH Critical V alue reported code = LACT) toFirst Name:PING WAKEFIELD Last Name:ELIZABETHPAPITOALICIA RESULTS READ BACK AND VERIFIEDby a.ST GrangerJS34, on 03/04/22, @ 0339. CBC W/AUTO [id number] 03:30:00 Test Item Value Reference Range Interpretation Comments WHITE BLOOD CELL (test code = 7.2 x10 3/uL 4.8-10.8 N WBC) RED BLOOD CELL (test code = 3.00 x10 6/uL 4.20-5.40 L RBC) HEMOGLOBIN (test code = HGB) 8.6 g/dL 12.0-16.0 L HEMATOCRIT (test code = HCT) 26.1 % 37.0-47.0 L MEAN CELL VOLUME (test code = 87.0 fL 81.0-99.0 N MCV) MEAN CELL HGB (test code = MCH) 28.7 pg 27-31 N MEAN CELL HGB CONCENTRATION 33.0 G/DL 33-36.5 N (test code = MCHC) RED CELL DISTRIBUTION WIDTH 15.9 % 12.9-16.9 N (test code = RDW) PLATELET COUNT (test code = 266 x10 3/uL 150-440 N PLT) MEAN PLATELET VOLUME (test code 11.2 fL 8.9-12.4 N = MPV) NEUTROPHIL % (test code = NT%) 91.0 % 42.2-75.2 H LYMPHOCYTE % (test code = LY%) 3.7 % 20.5-51.1 L MONOCYTE % (test code = MO%) 2.6 % 1.7-9.3 N EOSINOPHIL % (test code = EO%) 0.7 % 0.0-7.0 N BASOPHIL % (test code = BA%) 0.6 % 0-2.5 N NEUTROPHIL # (test code = NT#) 6.56 x10 3/uL 1.80-7.70 N LYMPHOCYTE # (test code = LY#) 0.27 x10 3/uL 1.00-4.80 L MONOCYTE # (test code = MO#) 0.19 x10 3/uL 0.00-0.80 N EOSINOPHIL # (test code = EO#) 0.05 x10 3/uL 0.00-0.45 N BASOPHIL # (test code = BA#) 0.04 x10 3/uL 0.0-0.20 N BASIC METABOLIC [id number] 22:25:00 Test Item Value Reference Range Interpretation Comments SODIUM (test code = 135 mmol/L 136-145 L Please n ote: New NA) Reference Range Jun 2020 POTASSIUM (test code 4.4 mmol/L 3.5-5.1 N = K) CHLORIDE (test code = 105 mmol/L 98-107 N Please note: New CL) Reference Range Jun 2020 CARBON DIOXIDE (test 20 mmol/L 20-31 N Please note: New code = CO2) Reference Range Jun 2020 GLUCOSE (test code = 124 mg/dL 74-106 H Please note: New GLU) Reference Range Jun 2020 BLOOD UREA NITROGEN 31 mg/dL 9-23 H Please n ote: New (test code = BUN) Reference Range Jun 2020 GLOMERULAR FILTRATION 31 mL/min >60 L Units are RATE (test code = mL/min/1.7 3m2 The GFR) estimated glome rular filtration rate is computed usingp atient race, age (>18) , sex, and serum creat inine. If anyof the ne eded data elements a re missing the Lab oratory cannot compute an estimation of t he glomerular filt ration rate. CREATININE (test code 1.70 mg/dL 0.55-1.02 H Please note: New = CREAT) Reference Range Jun 2020 CALCIUM (test code = 7.1 mg/dL 8.7-10.4 L Please note: New CA) Reference Range Jun 2020 - XR CHEST 1 [id number] 21:51:00 [facility] 1945 Sex: FPatient Name: JESUS JACOBS Unit No: [id number] EXAMS: CPT CODE: [id number] XR CHEST 1 V [id number] Location code: H5 Chest 1 view Indication: LOW BP. Comparison: 02/28/2022 Findings: Cardiomegaly. Left subclavian transvenous bipolar pacemaker. Right brachial PICC line tip projects over the atriocaval junction. NG tube extends into the distal stomach. Moderate pulmonary edema. Small pleuraleffusions. Bone is unremarkable IMPRESSION: Moderate pulmonary edema. Small pleural effusions. at 215 Reported and signed by: YADIEL DIETZ M.D. CC: Jaime Harvey MD; Ephraim Pearce MD Technologist: Jessica Soto Time: DAP (Gy m2): Air Kerma (mGy): Trscr Dt/Tm: 03/03/2022 (2150) by:[email or web address] Printed Date/Time: 03/03/2022 (2153) Name: JESUS JACOBS [facility] Phys: Ephraim Early MD [address] : 1945 Age: 76 Sex: F [place] [address] Loc: P.[id number] 1 Exam Date:03/03/2022 Status: ADM IN PH: FAX: PAGE 1 Signed [id number] 20:54:00 Test Item Value Reference Range Interpretation Comments TROPONIN-I (test 21.2 pg/mL 27.36-66.23 L Please note : Units and code = TROPI) Reference Rang e have changedFeb 3, 2 021 CBC W/AUTO [id number] 20:32:00 Test Item Value Reference Range Interpretation Comments WHITE BLOOD CELL (test code = 6.2 x10 3/uL 4.8-10.8 N WBC) RED BLOOD CELL (test code = 3.24 x10 6/uL 4.20-5.40 L RBC) HEMOGLOBIN (test code = HGB) 9.2 g/dL 12.0-16.0 L HEMATOCRIT (test code = HCT) 27.4 % 37.0-47.0 L MEAN CELL VOLUME (test code = 84.6 fL 81.0-99.0 N MCV) MEAN CELL HGB (test code = MCH) 28.4 pg 27-31 N MEAN CELL HGB CONCENTRATION 33.6 G/DL 33-36.5 N (test code = MCHC) RED CELL DISTRIBUTION WIDTH 15.5 % 12.9-16.9 N (test code = RDW) PLATELET COUNT (test code = 263 x10 3/uL 150-440 N PLT) MEAN PLATELET VOLUME (test code 10.7 fL 8.9-12.4 N = MPV) NEUTROPHIL % (test code = NT%) 88.6 % 42.2-75.2 H LYMPHOCYTE % (test code = LY%) 6.4 % 20.5-51.1 L MONOCYTE % (test code = MO%) 3.2 % 1.7-9.3 N EOSINOPHIL % (test code = EO%) 0.3 % 0.0-7.0 N BASOPHIL % (test code = BA%) 0.5 % 0-2.5 N NEUTROPHIL # (test code = NT#) 5.52 x10 3/uL 1.80-7.70 N LYMPHOCYTE # (test code = LY#) 0.40 x10 3/uL 1.00-4.80 L MONOCYTE # (test code = MO#) 0.20 x10 3/uL 0.00-0.80 N EOSINOPHIL # (test code = EO#) 0.02 x10 3/uL 0.00-0.45 N BASOPHIL # (test code = BA#) 0.03 x10 3/uL 0.0-0.20 N Spec Comments: stat please Comments to Phleb: stat [id number] 18:58:00 Test Item Value Reference Range Interpretation Comments TROPONIN-I (test 23.0 pg/mL 27.36-66.23 L Please note : Units and code = TROPI) Reference Rang e have changedFeb 3, 2 021 RENAL FUNCTION [id number] 18:58:00 Test Item Value Reference Range Interpretation Comments SODIUM (test code = 134 mmol/L 136-145 L Please n ote: New NA) Reference Range Jun 2020 POTASSIUM (test code 4.4 mmol/L 3.5-5.1 N = K) CHLORIDE (test code = 104 mmol/L 98-107 N Please note: New CL) Reference Range Jun 2020 CARBON DIOXIDE (test 20 mmol/L 20-31 N Please note: New code = CO2) Reference Range Jun 2020 GLUCOSE (test code = 150 mg/dL 74-106 H Please note: New GLU) Reference Range Jun 2020 BLOOD UREA NITROGEN 29 mg/dL 9-23 H Please n ote: New (test code = BUN) Reference Range Jun 2020 GLOMERULAR FILTRATION 31 mL/min >60 L Units are RATE (test code = mL/min/1.7 3m2 The GFR) estimated glome rular filtration rate is computed usingp atient race, age (>18) , sex, and serum creat inine. If anyof the ne eded data elements a re missing the Lab oratory cannot compute an estimation of t he glomerular filt ration rate. CREATININE (test code 1.70 mg/dL 0.55-1.02 H Please note: New = CREAT) Reference Range Jun 2020 ALBUMIN (test code = 2.5 g/dL 3.2-4.8 L Please note: New ALB) Reference Range Jun 2020 CALCIUM (test code = 7.1 mg/dL 8.7-10.4 L Please note: New CA) Reference Range Jun 2020 PHOSPHOROUS (test 3.4 mg/dL 2.4-5.1 N Please not e: New code = PHOS) Reference Range Jun 2020 - XR ABDOMEN [id number] 09:32:00 [facility] 1945 Sex: FPatient Name: JESUS JACOBS Unit No: [id number] EXAMS: CPT CODE: [id number] XR ABDOMEN 1V [id number] E SINGLE VIEW ABDOMEN INDICATION: confirm appropriate ngt placement . COMPARISON: CT chest/pelvis 03/02/2022 FINDINGS: Lines, Tubes and Hardware: Interval placement of enteric tube with tip overlying the stomach. Lower Thorax: Bibasilar pleural effusions and atelectasis as described on recent CT Abdomen and Bowel: Borderline dilated loops of proximal small bowel. Air pocket overlying the liver corresponding to perihepatic fluid/air described on recent CT Calcifications: No abnormal calcifications found. Cholecystostomy clips are present. Bones: Unchanged skeletal structures. IMPRESSION: Appropriate interval placement of enteric tube. Borderline dilation of proximal small bowel loops and perihepatic air as described on recent CT. Trace bilateral pleural effusions and adjacent atelectasis. Location: W1 at 0932 Reported and signed by: Deni Cross MD CC: Chloé Madrid MD; Jaime Harvey MD Technologist: Geronimo Soto Time: DAP (Gy m2): Air Kerma (mGy): Trscr Dt/Tm: 03/03/2022 (0932) by:[email or web address] Printed Date/Time: 03/03/2022 (0112) Name: JESUS JACOBS [place] [facility]: [id number] - Chloé Madrid MD [address] : 1945 Age: 76 Sex: [place] [address] Loc: [phone] 1 Exam Date: 03/03/2022 Status: ADM IN PH: FAX: PAGE 1 Signed ReportRENAL FUNCTION [id number] 05:30:00 Test Item Value Reference Range Interpretation Comments SODIUM (test code = 135 mmol/L 136-145 L Please n ote: New NA) Reference Range Jun 2020 POTASSIUM (test code 5.3 mmol/L 3.5-5.1 H = K) CHLORIDE (test code = 106 mmol/L 98-107 N Please note: New CL) Reference Range Jun 2020 CARBON DIOXIDE (test 15 mmol/L 20-31 L Please note: New code = CO2) Reference Range Jun 2020 GLUCOSE (test code = 83 mg/dL 74-106 N Please note: New GLU) Reference Range Jun 2020 BLOOD UREA NITROGEN 23 mg/dL 9-23 N Please n ote: New (test code = BUN) Reference Range Jun 2020 GLOMERULAR FILTRATION 39 mL/min >60 L Units are RATE (test code = mL/min/1.7 3m2 The GFR) estimated glome rular filtration rate is computed usingp atient race, age (>18) , sex, and serum creat inine. If anyof the ne eded data elements a re missing the Lab oratory cannot compute an estimation of t he glomerular filt ration rate. CREATININE (test code 1.40 mg/dL 0.55-1.02 H Please note: New = CREAT) Reference Range Jun 2020 ALBUMIN (test code = 2.9 g/dL 3.2-4.8 L Please note: New ALB) Reference Range Jun 2020 CALCIUM (test code = 7.9 mg/dL 8.7-10.4 L Please note: New CA) Reference Range Jun 2020 PHOSPHOROUS (test 4.4 mg/dL 2.4-5.1 N Please not e: New code = PHOS) Reference Range Jun 2020 [id number] 05:30:00 Test Item Value Reference Range Interpretation Comments MAGNESIUM (test code = 2.7 mg/dL 1.6-2.6 H Pleas e note: New MAG) Reference Range Jun 2020 CBC W/AUTO [id number] 05:21:00 Test Item Value Reference Range Interpretation Comments WHITE BLOOD CELL (test code = 8.1 x10 3/uL 4.8-10.8 N WBC) RED BLOOD CELL (test code = 3.57 x10 6/uL 4.20-5.40 L RBC) HEMOGLOBIN (test code = HGB) 10.1 g/dL 12.0-16.0 L HEMATOCRIT (test code = HCT) 31.0 % 37.0-47.0 L MEAN CELL VOLUME (test code = 86.8 fL 81.0-99.0 N MCV) MEAN CELL HGB (test code = MCH) 28.3 pg 27-31 N MEAN CELL HGB CONCENTRATION 32.6 G/DL 33-36.5 L (test code = MCHC) RED CELL DISTRIBUTION WIDTH 15.3 % 12.9-16.9 N (test code = RDW) PLATELET COUNT (test code = 263 x10 3/uL 150-440 N PLT) MEAN PLATELET VOLUME (test code 11.0 fL 8.9-12.4 N = MPV) NEUTROPHIL % (test code = NT%) 89.9 % 42.2-75.2 H LYMPHOCYTE % (test code = LY%) 4.5 % 20.5-51.1 L MONOCYTE % (test code = MO%) 3.2 % 1.7-9.3 N EOSINOPHIL % (test code = EO%) 1.1 % 0.0-7.0 N BASOPHIL % (test code = BA%) 0.7 % 0-2.5 N NEUTROPHIL # (test code = NT#) 7.26 x10 3/uL 1.80-7.70 N LYMPHOCYTE # (test code = LY#) 0.36 x10 3/uL 1.00-4.80 L MONOCYTE # (test code = MO#) 0.26 x10 3/uL 0.00-0.80 N EOSINOPHIL # (test code = EO#) 0.09 x10 3/uL 0.00-0.45 N BASOPHIL # (test code = BA#) 0.06 x10 3/uL 0.0-0.20 N - CT ABD PELVIS W/O [id number] 12:11:00 [facility] 1945 Sex: FPatient Name: JESUS JACOBS Unit No: [id number] EXAMS: CPT CODE: [id number] CT ABD PELVIS W/O CONT 80672 EXAM: - CT ABD PELVIS W/O CONT DATE: 03/02/2022 7:31 AM. INDICATION: rule out bowel obstruction colocutaneous fistula. COMPARISON: None available. TECHNIQUE: Volumetric CT acquisitionof the abdomen and pelvis without intravenous contrast. Axial, coronal and sagittal reconstructions.AEC, mA/kV adjustment by patient size, and/or iterative reconstruction technique were used, per departmental dose-optimization program. IV contrast: None. Oral contrast: None reported DLP: 907 mGy-cm.FINDINGS: This examination is limited for the evaluation of solid organs and vascular structures without IV contrast. Lines and Tubes: None. Lower Thorax: Trace bilateral pleural effusions and adjacent compressive atelectasis. Calcified granuloma in the left lung base. Evaluation of the solid organs is limited without intravenous contrast. Liver and Biliary Tree: Small amount of simple appearing perihepatic fluid demonstrates air-fluid levels. The liver parenchyma is unremarkable. No biliary dilatation. Gallbladder: Cholecystectomy. Adrenals: No adrenal nodules. Spleen: No splenomegaly or suspicious masses. Tiny amount of perisplenic air. Pancreas: No focal masses or ductal dilatation. Kidneys and Ureters: No stones or hydronephrosis on either side. Bladder: Bladder is moderately distended with small amount of air. Reproductive Organs: The uterus is not identified and has likely been removed. Gastrointestinal Tract: A small hiatal hernia is present and a surgical clip is noted near the GE junction. Name: JESUS JACOBS [facility] Phys: CHEOPAL - Chloé Madrid MD [address] : 1945 Age: 76 Sex: [place] [address] Loc: P.[phone] 1 Exam Date: 03/02/2022 Status: ADM IN PH: FAX: PAGE 1 Signed Report (CONTINUED) Patient Name: JESUS JACOBS Unit No: [id number] EXAMS: CPT CODE: [id number] CT ABD PELVIS W/O CONT 40444 (Continued) Enteric contrast seen in the stomach and proximal jejunum, however the remainder of the bowel loops are difficult to follow given lack of enteric or IV. The duodenum and proximal jejunum are distended up to 3.3 cm in caliber. At the site of the most proximal anastomosis, there appears to be 4.5 x 3.1 x 5.3 cm low attenuating fluid collection within the bowel wall (series 2, image 87 and series 4, image 39. Beyond this anastomosis, the bowel loops gradually taper in caliber. The right hemicolon appears surgically resected and reanastomosed to the ileum, which is pulled-through in the right lower quadrant to anostomy. The left hemicolon is decompressed with small amount of retained enteric contrast. Appendix:Surgically absent. Peritoneum and Retroperitoneum: Tiny amount of perisplenic air and perihepatic air/fluid. Expected postsurgical fat stranding of the mesentery right greater than left. Lymph Nodes: No lymphadenopathy. Vasculature: Mild aortic atherosclerosis without aneurysm. Bones: No acute abnormality. The bones appear demineralized. Multilevel degenerative changes of the spine. Soft Tissues: Bilateral breast calcifications. The left mid abdominal wall defect. Extensive anterior lower abdominalwall edema is associated with scattered small pockets of air around the ostomy pull through. Midlinesurgical scar. IMPRESSION: Although the most proximal bowel loops are borderline dilated, there is no evidence of high-grade obstruction. However, a 5 cm simple fluid collection within the bowel wall at the proximal anastomosis may be causing some extrinsic compression of the lumen. Beyond this, the bowel gradually tapers in caliber. Small amount of simple perihepatic fluid and air. Trace amount of perisplenic air. Other post surgical changes as noted above. Trace bilateral pleural effusions and adjacent atelectasis. Superimposed pneumonia difficult to rule out. Small sliding hiatal hernia. Location: Name: JESUS JACOBS [facility] Phys: Chloé Zuluaga MD [address] [facility] : 1945 Age: 76 Sex: F [place] [address] Loc: P.[phone] 1 Exam Date: 03/02/2022 Status: ADM IN PH: FAX: PAGE 2 Signed Report (CONTINUED) Patient Name: JESUS JACOBS Unit No: [id number] EXAMS: CPT CODE: [id number] CT ABD PELVIS W/O CONT 73731 (Continued) at 1211 Reported and signed by: Deni Cross MD CC: Chloé Madrid MD; Jaime Harvey MD Technologist: OSCAR WHITE; Kamilla Ohara CTDI: 16.75 DLP:914 Trscr Dt/Tm: 03/02/2022 (1211) by:[email or web address] Printed Date/Time: 03/02/2022 (1215) Name: JESUS JACOBS [facility] Phys: Chloé Zuluaga MD [address] : 1945 Age: 76 Sex: F [place] [address] Loc: P.[phone] 1 Exam Date: 03/02/2022 Status: ADM IN PH: FAX: PAGE 3 Signed ReportBASIC METABOLIC [id number] 05:39:00 Test Item Value Reference Range Interpretation Comments SODIUM (test code 140 mmol/L 136-145 N Please not e: New = NA) Reference Range Jun 2020 POTASSIUM (test 3.7 mmol/L 3.5-5.1 N code = K) CHLORIDE (test 107 mmol/L 98-107 N Please note: New code = CL) Reference Range Jun 2020 CARBON DIOXIDE 16 mmol/L 20-31 L Please note: New (test code = CO2) Reference Range Jun 2020 GLUCOSE (test code 80 mg/dL 74-106 N Please no te: New = GLU) Reference Range Jun 2020 BLOOD UREA 10 mg/dL 9-23 N Please note: Ne w NITROGEN (test Reference Ran ge Feb code = BUN) 2020 GLOMERULAR >=60 max >60 Units are FILTRATION RATE estimate mL/min mL/min/1. 73m2 The (test code = GFR) estimated glomerular filtration rate is computed usingpatient ra ce, age (>18), sex, and serum creatinin e. If anyof the neede d data elements a re missing the Laboratory marcos ot compute an estimation of t he glomerular filtration rate . CREATININE (test 0.80 mg/dL 0.55-1.02 N Please note : New code = CREAT) Reference Rang e Jun 2020 CALCIUM (test code 7.6 mg/dL 8.7-10.4 L Please no te: New = CA) Reference Range Jun 2020 [id number] 05:39:00 Test Item Value Reference Range Interpretation Comments MAGNESIUM (test code = 1.8 mg/dL 1.6-2.6 N Pleas e note: New MAG) Reference Range Jun 2020 CBC W/AUTO [id number] 05:24:00 Test Item Value Reference Range Interpretation Comments WHITE BLOOD CELL (test code = 11.6 x10 3/uL 4.8-10.8 H WBC) RED BLOOD CELL (test code = 3.18 x10 6/uL 4.20-5.40 L RBC) HEMOGLOBIN (test code = HGB) 9.1 g/dL 12.0-16.0 L HEMATOCRIT (test code = HCT) 27.9 % 37.0-47.0 L MEAN CELL VOLUME (test code = 87.7 fL 81.0-99.0 N MCV) MEAN CELL HGB (test code = 28.6 pg 27-31 N MCH) MEAN CELL HGB CONCENTRATION 32.6 G/DL 33-36.5 L (test code = MCHC) RED CELL DISTRIBUTION WIDTH 14.9 % 12.9-16.9 N (test code = RDW) PLATELET COUNT (test code = 214 x10 3/uL 150-440 N PLT) MEAN PLATELET VOLUME (test 11.1 fL 8.9-12.4 N code = MPV) NEUTROPHIL % (test code = NT%) 87.0 % 42.2-75.2 H LYMPHOCYTE % (test code = LY%) 5.6 % 20.5-51.1 L MONOCYTE % (test code = MO%) 4.0 % 1.7-9.3 N EOSINOPHIL % (test code = EO%) 0.1 % 0.0-7.0 N BASOPHIL % (test code = BA%) 0.1 % 0-2.5 N NEUTROPHIL # (test code = NT#) 10.08 x10 3/uL 1.80-7.70 H LYMPHOCYTE # (test code = LY#) 0.65 x10 3/uL 1.00-4.80 L MONOCYTE # (test code = MO#) 0.46 x10 3/uL 0.00-0.80 N EOSINOPHIL # (test code = EO#) 0.01 x10 3/uL 0.00-0.45 N BASOPHIL # (test code = BA#) 0.01 x10 3/uL 0.0-0.20 N [id number] 17:01:00 Test Item Value Reference Range Interpretation Comments SURGICAL (test code = SR) R UN DATE: 03/01/22 [place] [facility] - LAB PAGE 1 RUN TIME: 1701 Specimen Inquiry RUN USER: INTERFACE P ATIENT: JESUS JACOBS LOC: P.5N POD B U #: [id number] AGE/SX: 76/F ROOM: [facility] RE02/27/22REG DR: Jaime Harvey MD : [birth year] BED: 1 DIS: STATUS: ADM IN TLOC: SPEC #: [id number] RECD: 02/28/22 STATUS: DONNA REGALADO #: [id number] CALLIE: 02/27/[address] [facility] [address]: Jaime Harvey MD ENTERED: 02/28/22 SP TYPE: SURGICAL OTHR DR: Leodan Provider ORDERED: 88519, 61812, 14708, ANATOMIC SPEC HISTOLOGY: TISSUE ID [id number] PCS LATESHA LEV / PROCEDURE DISPOSITION ____ ___ ___ ___ ___ OMERT A 2 1 COLSTO B 1 1 COLSR C 6 1 TISSUES: A. OMENTUM RESECTION NOT TUMOR - Omentum B. COLOSTOMY STOMA, NOT FOR TUMOR - Colostomy C. COLON SEGMENTAL RESECTION NOT TUMOR - Colon with Fistula Stic FINAL DIAGNOSIS A. OMENTUM, PARTIAL OMENTECTOMY: Fibrous adhesions. Focal fat necrosis. B. COLOSTOMY, REVERSAL: No significant pathologic changes. C. COLON, SEGMENTAL COLECTOMY (18 cm length): History of diverticulosis. Chronic fistulous tract. Marked serous fibrous adhesions. GROSS DESCRIPTION A. Received in formalin, labeled with the patient's name, date of and designatedspecimen A "omentum". It consists of a portion of fatty omental tissue that measures 8 x7.5 x 3 cm. A slight amount of hemorrhage is located on the surface. Some portions of thefatty tissue are slightly firmer. [employer] sections are taken and submitted acrosscassettes A1 and A2. B. Received in formalin, labeled with the patient's name, date of and designatedspecimen B "colostomy". It consists of a colostomy measuring 4.5 x 2.3 x 1.7 cm. Thespecimen is serially sectioned, revealing a toth smooth unremarkable mucosal surface. Sections submitted in cassette B. C. Received in formalin, labeled with the patient's name, date of and designatedspecimen C "fistula, stitch collado fistula". It consists of a portion of large bowelmeasuring 12 cm in total length with a diameter ranging from 1.3 cm at the stapled marginand up to 2 cm at the opposing open margin. The specimen has attached toth brown soft CONTINUED ON NEXT PAGE R UN DATE: 03/01/22 [facility] - LAB PAGE 2 RUN TIME: 170 Specimen Inquiry RUN USER: INTERFACE S PRIYA #: [id number] PATIENT: JESUS JACOBS #[id number] (Continued) GROSS DESCRIPTION (Continued) tissue and a toth brown ragged serosa. Near the stapled margin there is a white suturethat collado the location of the fistula. The specimen is serially sectioned, revealing tanrugal folds on the mucosal surface. Towards the stapled end, the lumen is shrunken andcontains hemorrhagic substance. No diverticula ofelia identified. Around the suture near thestapled end there is attached abnormally toth firm soft tissue. The specimen has a varyingwall thickness from 0.2 cm and up to 0.4 cm the areas with multiple external white firmnodules ranging from 0.3 to 0.7 cm in greatest dimension. The specimen is submittedrepresentatively as follows: C1 - opened ended margin; C2 - fistula located at the closedstapled margin with the section closest to the staple inked blue; C3 - cross section nearopened end; C4 - section of near closed stapled end, including attached abnormal softtissue; C5 - additional serosal white firm nodules. PING/mychal Technical component performed at [facility] [facility], [facility], [address] Immunohistochemistry: This test was developed and its performance characteristicsdetermined by this laboratory. It has not been approved nor does it need approval by the USFDA. Appropriate positive and negative controls are reviewed and judged to be acceptable. This laboratory is certified under the Clinical Laboratory Improvement Amendments (CLIA-88)as qualified to perform high complexity clinical laboratory testing. MICROSCOPIC DESCRIPTION Unless gross only, the diagnosis is based upon microscopic examination. CLINICAL INFORMATION Diverticulitis Signed SIGNATURE ON FILE Tato Rothman 03/01/22 1701 END OF REPORT - GUIDANCE [facility] [id number] 16:09:00 [facility] : 1945 Sex: FPatient Name: JESUS JACOBS Unit No: [id number] EXAMS: CPT CODE: [id number] US GUIDANCE VASC ACCESS [id number] PROVIDED REASON FOR EXAM: Small Bowel Surgery,Home IV infusion PROCEDURE: Right Internal Jugular Tunneled Small Bore Central Catheter Placement. MEDICATIONS: 1% Lidocaine. CONTRAST: None. FLUOROSCOPY TIME: 0.5 minutes. SEDATION TIME: 30 min MEDICATIONS: 50 mcg Fentanyl IV; 1 mg Versed IV COMPLICATIONS: None. DESCRIPTION: The patient was then taken to the Interventional Suite and placed on the table in supine position where the skin of the right neck was prepped and draped in the standard sterile fashion. A time out was performed. 1% Lidocaine was infiltrated into the skin and subcutaneous soft tissues of the right neck and chest. Under ultrasound guidance, the right internal jugular vein was noted to be patent and was accessed with a micropuncture needle from the right upper chest and images permanently documented. A skin incision was made along the needle. The needle was then exchanged for a 5-[place]ese coaxial dilator over a guidewire. The dilator was then exchanged for a [place]way sheath over a wire. A 6 Fr double lumen catheter, which was cut to 20 cm, was advanced through the peel-away sheath. The catheter was advanced under fluoroscopic guidance through the sheath with the tip near the junction of the right atrium and SVC. The sheath was removed and the catheter was secured to the skin of the chest with 0-Prolene. The catheter flushed and aspirated easily at the time of procedure completion. A sterile bandage was applied. The patient tolerated the procedure well without immediate complication and was dismissed in stable condition. FINDINGS: 1. Right IJ is patent 2. Tip of the catheter near the cavoatrial junction. IMPRESSION: Successful placement of a tunneled smallbore catheter via the right internal jugular vein. Location: W1 at 1609 Reported and signed by: Deni Cross MD Name: JESUS JACOBS [facility] Phys: Ephraim Early MD [address] : 1945 Age: 76 Sex: [place] [address] Loc: P.[phone] 1 Exam Date: 03/01/2022 Status: ADM IN PH: FAX: PAGE 1Signed Report (CONTINUED) Patient Name: JESUS JACOBS Unit No: [id number] EXAMS: CPT CODE: [id number] US GUIDANCE VASC ACCESS [id number] (Continued) CC: Jaime Harvey MD; Ephraim Pearce MD Technologist: Khris Mccall; David Mata (R),(CT),() Fluoro Time: DAP (Gy m2): Air Kerma (mGy): Trscr Dt/Tm: 03/01/2022 (1609) by:[email or web address] Printed Date/Time: 03/01/2022 (1612) [facility] Eph[facility] [address] : 1945 Age: 76 [place]: [place] [address] Loc: P.[phone] 1 Exam Date: 03/01/2022 Status: ADM IN PH: FAX: PAGE 2 Signed Report- FLUORO GUID CTRL ACC [id number] 16:09:00 [facility] : 1945 Sex: FPatient Name: JESUS JACOBS Unit No: [id number] EXAMS: CPT CODE: [id number] FLUORO GUID CTRL ACC DEV 06226 PROVIDED REASON FOR EXAM: Small Bowel Surgery,Home IV infusion PROCEDURE: Right Internal Jugular Tunneled Small Bore Central Catheter Placement. MEDICATIONS: 1% Lidocaine. CONTRAST:None. FLUOROSCOPY TIME: 0.5 minutes. SEDATION TIME: 30 min MEDICATIONS: 50 mcg Fentanyl IV; 1 mg Versed IV COMPLICATIONS: None. DESCRIPTION: The patient was then taken to the Interventional Suite and placed on the table in supine position where the skin of the right neck was prepped and draped in the standard sterile fashion. A time out was performed. 1% Lidocaine was infiltrated into the skin and subcutaneous soft tissues of the right neck and chest. Under ultrasound guidance, the right internal jugular vein was noted to be patent and was accessed with a micropuncture needle from the right upper chest and images permanently documented. A skin incision was made along the needle. The needle was then exchanged for a 5-[place] coaxial dilator over a guidewire. The dilator was then exchanged for a peel away sheath over a wire. A 6 Fr double lumen catheter, which was cut to 20 cm, was advanced through the peel-away sheath. The catheter was advanced under fluoroscopic guidance through the sheath withthe tip near the junction of the right atrium and SVC. The sheath was removed and the catheter was secured to the skin of the chest with 0-Prolene. The catheter flushed and aspirated easily at the timeof procedure completion. A sterile bandage was applied. The patient tolerated the procedure well without immediate complication and was dismissed in stable condition. FINDINGS: 1. Right IJ is patent 2. Tip of the catheter near the cavoatrial junction. IMPRESSION: Successful placement of a tunneled small bore catheter via the right internal jugular vein. Location: W1 at 1609 Reported and signed by: Deni Cross MD Name: JESUS JACOBS [facility] Phys: Ephraim Early MD [address] : 1945 Age: 76 Sex: [place] [address] Loc: P.[phone] 1 Exam Date: 03/01/2022 Status: ADM IN PH: FAX: PAGE 1 Signed Report (CONTINUED) Patient Name: JESUS JACOBS Unit No: [id number] EXAMS: CPT CODE: [id number] FLUORO GUID CTRL ACC DEV 77635 (Continued) CC: Jaime Harvey MD; Ephraim Pearce MD Technologist: Khris Mccall; David Mata (R),(CT),() Fluoro Time: DAP (Gy m2): Air Kerma (mGy): Trscr Dt/Tm: 03/01/2022 (1609) by:[email or web address] Printed Date/Time: 03/01/2022 (230) Name: JESUS JACOBS [facility] Phys: Ephraim Early MD [address] : 1945 Age: 76 Sex: [place] [address] Loc: P.[phone] 1 Exam Date: 03/01/2022 Status: ADM IN PH: FAX: PAGE 2 Signed ReportBASIC METABOLIC PANEL 2022-03-01 04:22:00 Test Item Value Reference Range Interpretation Comments SODIUM (test code 141 mmol/L 136-145 N Please not e: New = NA) Reference Range Jun 2020 POTASSIUM (test 3.8 mmol/L 3.5-5.1 N code = K) CHLORIDE (test 111 mmol/L 98-107 H Please note: New code = CL) Reference Range Jun 2020 CARBON DIOXIDE 22 mmol/L 20-31 N Please note: New (test code = CO2) Reference Range Jun 2020 GLUCOSE (test code 105 mg/dL 74-106 N Please no te: New = GLU) Reference Range Jun 2020 BLOOD UREA 9 mg/dL 9-23 N Please note: Ne w NITROGEN (test Reference Ran ge Feb code = BUN) 2020 GLOMERULAR >=60 max >60 Units are FILTRATION RATE estimate mL/min mL/min/1. 73m2 The (test code = GFR) estimated glomerular filtration rate is computed usingpatient ra ce, age (>18), sex, and serum creatinin e. If anyof the neede d data elements a re missing the Laboratory marcos ot compute an estimation of t he glomerular filtration rate . CREATININE (test 0.80 mg/dL 0.55-1.02 N Please note : New code = CREAT) Reference Rang e Jun 2020 CALCIUM (test code 7.5 mg/dL 8.7-10.4 L Please no te: New = CA) Reference Range Jun 2020 [id number] 04:22:00 Test Item Value Reference Range Interpretation Comments MAGNESIUM (test code = 2.7 mg/dL 1.6-2.6 H Pleas e note: New MAG) Reference Range Jun 2020 CBC W/AUTO [id number] 04:08:00 Test Item Value Reference Range Interpretation Comments WHITE BLOOD CELL (test code = 12.4 x10 3/uL 4.8-10.8 H WBC) RED BLOOD CELL (test code = 3.33 x10 6/uL 4.20-5.40 L RBC) HEMOGLOBIN (test code = HGB) 9.5 g/dL 12.0-16.0 L HEMATOCRIT (test code = HCT) 29.4 % 37.0-47.0 L MEAN CELL VOLUME (test code = 88.3 fL 81.0-99.0 N MCV) MEAN CELL HGB (test code = MCH) 28.5 pg 27-31 N MEAN CELL HGB CONCENTRATION 32.3 G/DL 33-36.5 L (test code = MCHC) RED CELL DISTRIBUTION WIDTH 14.6 % 12.9-16.9 N (test code = RDW) PLATELET COUNT (test code = 209 x10 3/uL 150-440 N PLT) MEAN PLATELET VOLUME (test code 11.2 fL 8.9-12.4 N = MPV) NEUTROPHIL % (test code = NT%) 79.0 % 42.2-75.2 H LYMPHOCYTE % (test code = LY%) 12.6 % 20.5-51.1 L MONOCYTE % (test code = MO%) 7.5 % 1.7-9.3 N EOSINOPHIL % (test code = EO%) 0.2 % 0.0-7.0 N BASOPHIL % (test code = BA%) 0.2 % 0-2.5 N NEUTROPHIL # (test code = NT#) 9.77 x10 3/uL 1.80-7.70 H LYMPHOCYTE # (test code = LY#) 1.56 x10 3/uL 1.00-4.80 N MONOCYTE # (test code = MO#) 0.93 x10 3/uL 0.00-0.80 H EOSINOPHIL # (test code = EO#) 0.03 x10 3/uL 0.00-0.45 N BASOPHIL # (test code = BA#) 0.03 x10 3/uL 0.0-0.20 N - XR CHEST 1 [id number] 14:25:00 [facility] : 1945 Sex: FPatient Name: JESUS JACOBS Unit No: [id number] EXAMS: CPT CODE: [id number] XR CHEST 1 V 00237 EXAM: Portable chest x-ray, 1 view Dictation location: A1 COMPARISON: None INDICATION: PICCPLACEMENT DISCUSSION: A right upper extremity central venous catheter is in place, the tip is oriented caudad over the lateral aspect of the lower right thorax, possibly within the lateral thoracic vein. No pneumothorax is seen. There is partial consolidation at the left lung base. A multilead pacemaker is in place. The cardiac silhouette is within normal limits. No acute bony abnormalities are identified. IMPRESSION: 1. The right upper extremity central venous catheter is oriented caudad over the lateral aspect of the lower right thoracic wall, possibly within the lateral thoracic vein. Repositioning is recommended. 2. Partial consolidation at the left lung base, either due to atelectasis or pneumonia. No pneumothorax is seen. [id number] Reported and signed by: Marcell Felton M.D. CC: Jaime Harvey MD; Ephraim Pearce MD Technologist: Geronimo Soto Time: DAP (Gy m2): Air Kerma (mGy): Trscr Dt/Tm: 02/28/2022 (3657) by:[email or web address] Printed Date/Time: 02/28/2022 (8676) Name: JESUS JACOBS [facility] Phys: Ephraim Early MD [address] : 1945 Age: 76 Sex: [place] [phone] Loc: [phone] 1 Exam Date: 02/28/2022 Status: ADM IN PH: FAX: PAGE 1 Signed ReportBASIC METABOLIC [id number] 13:29:00 Test Item Value Reference Range Interpretation Comments SODIUM (test code 143 mmol/L 136-145 N Please not e: New = NA) Reference Range Jun 2020 POTASSIUM (test 4.2 mmol/L 3.5-5.1 N code = K) CHLORIDE (test 113 mmol/L 98-107 H Please note: New code = CL) Reference Range Jun 2020 CARBON DIOXIDE 24 mmol/L 20-31 N Please note: New (test code = CO2) Reference Range Jun 2020 GLUCOSE (test code 112 mg/dL 74-106 H Please no te: New = GLU) Reference Range Jun 2020 BLOOD UREA 8 mg/dL 9-23 L Please note: Ne w NITROGEN (test Reference Ran ge Feb code = BUN) 2020 GLOMERULAR >=60 max >60 Units are FILTRATION RATE estimate mL/min mL/min/1. 73m2 The (test code = GFR) estimated glomerular filtration rate is computed usingpatient ra ce, age (>18), sex, and serum creatinin e. If anyof the neede d data elements a re missing the Laboratory marcos ot compute an estimation of t he glomerular filtration rate . CREATININE (test 0.70 mg/dL 0.55-1.02 N Please note : New code = CREAT) Reference Rang e Jun 2020 CALCIUM (test code 6.9 mg/dL 8.7-10.4 L Please no te: New = CA) Reference Range Jun 2020 [id number] 13:29:00 Test Item Value Reference Range Interpretation Comments MAGNESIUM (test code = 1.4 mg/dL 1.6-2.6 L Pleas e note: New MAG) Reference Range Jun 2020 RECOLLECTCBC W/AUTO [id number] 05:10:00 Test Item Value Reference Range Interpretation Comments WHITE BLOOD CELL (test code = 10.4 x10 3/uL 4.8-10.8 N WBC) RED BLOOD CELL (test code = 2.85 x10 6/uL 4.20-5.40 L RBC) HEMOGLOBIN (test code = HGB) 9.6 g/dL 12.0-16.0 L HEMATOCRIT (test code = HCT) 24.8 % 37.0-47.0 L MEAN CELL VOLUME (test code = 87.0 fL 81.0-99.0 N MCV) MEAN CELL HGB (test code = MCH) 33.7 pg 27-31 H MEAN CELL HGB CONCENTRATION 38.7 G/DL 33-36.5 H (test code = MCHC) RED CELL DISTRIBUTION WIDTH 18.5 % 12.9-16.9 H (test code = RDW) PLATELET COUNT (test code = 954 x10 3/uL 150-440 H PLT) MEAN PLATELET VOLUME (test code 12.9 fL 8.9-12.4 H = MPV) NEUTROPHIL % (test code = NT%) 84.8 % 42.2-75.2 H LYMPHOCYTE % (test code = LY%) 7.9 % 20.5-51.1 L MONOCYTE % (test code = MO%) 6.8 % 1.7-9.3 N EOSINOPHIL % (test code = EO%) 0.0 % 0.0-7.0 N BASOPHIL % (test code = BA%) 0.2 % 0-2.5 N NEUTROPHIL # (test code = NT#) 8.82 x10 3/uL 1.80-7.70 H LYMPHOCYTE # (test code = LY#) 0.82 x10 3/uL 1.00-4.80 L MONOCYTE # (test code = MO#) 0.71 x10 3/uL 0.00-0.80 N EOSINOPHIL # (test code = EO#) 0.00 x10 3/uL 0.00-0.45 N BASOPHIL # (test code = BA#) 0.02 x10 3/uL 0.0-0.20 N COMPREHENSIVE METABOLIC [id number] 15:44:00 Test Item Value Reference Range Interpretation Comments SODIUM (test code = 143 mmol/L 136-145 N Please n ote: New NA) Reference Range Jun 2020 POTASSIUM (test code 4.5 mmol/L 3.5-5.1 N = K) CHLORIDE (test code = 109 mmol/L 98-107 H Please note: New CL) Reference Range Jun 2020 CARBON DIOXIDE (test 23 mmol/L 20-31 N Please note: New code = CO2) Reference Range Jun 2020 GLUCOSE (test code = 88 mg/dL 74-106 N Please note: New GLU) Reference Range Jun 2020 BLOOD UREA NITROGEN 24 mg/dL 9-23 H Please n ote: New (test code = BUN) Reference Range Jun 2020 GLOMERULAR FILTRATION 57 mL/min >60 L Units are RATE (test code = mL/min/1.7 3m2 The GFR) estimated glome rular filtration rate is computed usingp atient race, age (>18) , sex, and serum creat inine. If anyof the ne eded data elements a re missing the Lab oratory cannot compute an estimation of t he glomerular filt ration rate. CREATININE (test code 1.00 mg/dL 0.55-1.02 N Please note: New = CREAT) Reference Range Jun 2020 TOTAL PROTEIN (test 6.9 g/dL 5.7-8.2 N Please n ote: New code = PROT) Reference Range Jun 2020 ALBUMIN (test code = 4.3 g/dL 3.2-4.8 N Please note: New ALB) Reference Range Jun 2020 CALCIUM (test code = 8.9 mg/dL 8.7-10.4 N Please note: New CA) Reference Range Jun 2020 BILIRUBIN TOTAL (test 0.2 mg/dL 0.3-1.2 L Please note: New code = BILT) Reference Range Jun 2020 SGOT/AST (test code = 21 U/L <34 N Please note: New AST) Reference Range Jun 2020 SGPT/ALT (test code = 22 U/L 10-49 N Please note: New ALT) Reference Range Jun 2020 ALKALINE PHOSPHATASE 89 U/L 46-116 N Please note: New (test code = ALKP) Reference Range Jun 2020 PROTHROMBIN [id number] 15:35:00 Test Item Value Reference Range Interpretation Comments PROTHROMBIN TIME 11.4 SECONDS 10.3-12.9 N PATIENT (test code = PTP) INTERNATIONAL 1.00 INR UNIT 0.9-1.11 N The INR is us eful only NORMAL RATIO (test for monit oring code = INR) anticoagulant therapy.It may be unreliable in t he initial phase o f antigoagulation and in unstable patien ts. Indication for Anticoagulation Recommended INR 1. Prevention of v enous thomboembolism 2.0-3.0in high- risk patients; treat ment of venousthrombosi s and pulmonary embol ism aftera course o f heparin; preven tion of systemicembolis m in a variety of cond itions, including atria l fibrillation an d prothetic tissu e heart valves, 2. Pros thetic mechanical hear t valves; 2.5-3.5recurren t systemic emboli sm. THROMBOPLASTIN TIME [id number] 15:35:00 Test Item Value Reference Range Interpretation Comments THROMBOPLASTIN TIME 32.5 SECONDS 23.8-34.8 N INTERPRE TATIVE PARTIAL (test code = DATA: erapeutic PTT) range: Unfractionated heparin:55 - 80 seconds Argatroban:1.5 to 3 times the basel ine PTT CBC W/AUTO [id number] 15:22:00 Test Item Value Reference Range Interpretation Comments WHITE BLOOD CELL (test code = 9.8 x10 3/uL 4.8-10.8 N WBC) RED BLOOD CELL (test code = 4.17 x10 6/uL 4.20-5.40 L RBC) HEMOGLOBIN (test code = HGB) 12.0 g/dL 12.0-16.0 N HEMATOCRIT (test code = HCT) 36.4 % 37.0-47.0 L MEAN CELL VOLUME (test code = 87.3 fL 81.0-99.0 N MCV) MEAN CELL HGB (test code = MCH) 28.8 pg 27-31 N MEAN CELL HGB CONCENTRATION 33.0 G/DL 33-36.5 N (test code = MCHC) RED CELL DISTRIBUTION WIDTH 14.6 % 12.9-16.9 N (test code = RDW) PLATELET COUNT (test code = 285 x10 3/uL 150-440 N PLT) MEAN PLATELET VOLUME (test code 11.5 fL 8.9-12.4 N = MPV) NEUTROPHIL % (test code = NT%) 68.6 % 42.2-75.2 N LYMPHOCYTE % (test code = LY%) 22.6 % 20.5-51.1 N MONOCYTE % (test code = MO%) 7.4 % 1.7-9.3 N EOSINOPHIL % (test code = EO%) 0.7 % 0.0-7.0 N BASOPHIL % (test code = BA%) 0.3 % 0-2.5 N NEUTROPHIL # (test code = NT#) 6.71 x10 3/uL 1.80-7.70 N LYMPHOCYTE # (test code = LY#) 2.21 x10 3/uL 1.00-4.80 N MONOCYTE # (test code = MO#) 0.72 x10 3/uL 0.00-0.80 N EOSINOPHIL # (test code = EO#) 0.07 x10 3/uL 0.00-0.45 N BASOPHIL # (test code = BA#) 0.03 x10 3/uL 0.0-0.20 N POC [id number] 16:55:00 Test Item Value Reference Range Interpretation Comments POC creatinine (test 0.9 mg/dl 0.5-0.9 Operato r Name: Bernard code = 15972-2) DeborahDevic e ID: [id number] [facility] [id number] 16:55:00 Test Item Value Reference Range Interpretation Comments Estimated GFR (test 61 mL/min/1.73 m2 Caterg ory Units code = 85117-6) Interpretati onG1 >=90 Normal or highG 2 60-89 Mildly decrease dG3a 45-59 Mildly to moder ately qjmpvyxrxK1t 30 -44 Moderately to s everely decreasedG4 15- 29 Severely decreasedG5 <15 Kidney failureThe eGFR was calculated jenny go the Chronic Kidney Disease Epidemiology Co llaboration (CKD-EPI) equat ion. Interpretation is based on recommendations of the National Kidney Foundation-Kidn ey Disease Outcomes Qualit y Initiative (NKF-KDOQI) pub lished in 2014. [facility] [id number] 16:55:00 Test Item Value Reference Range Interpretation Comments POC creatinine (test 0.9 mg/dl 0.5-0.9 Operato r Name: Bernard code = 98511-4) DebyamilethhDjesus e ID: [id number] [facility] [id number] 16:55:00 Test Item Value Reference Range Interpretation Comments Estimated GFR (test mL/min/1.73 m2 Caterg ory Units code = 06824-6) Interpretati onG1 >=90 Normal or highG 2 60-89 Mildly decrease dG3a 45-59 Mildly to moder ately tfvrqcirdL8n 30 -44 Moderately to s everely decreasedG4 15- 29 Severely decreasedG5 <15 Kidney failureThe eGFR was calculated usin g the Chronic Kidney Disease Epidemiology Co llaboration (CKD-EPI) equat ion. Interpretation is based on recommendations of the National Kidney Foundation-Kidn ey Disease Outcomes Qualit y Initiative (NKF-KDOQI) pub lished in 2013. [facility] [id number] 16:55:00 Test Item Value Reference Range Interpretation Comments POC creatinine (test 0.9 mg/dl 0.5-0.9 Operato r Name: Bernard code = 65114-9) DeborahDevic e ID: [id number] [facility] [id number] 16:55:00 Test Item Value Reference Range Interpretation Comments Estimated GFR (test mL/min/1.73 m2 Caterg ory Units code = 68334-0) Interpretati onG1 >=90 Normal or highG 2 60-89 Mildly decrease dG3a 45-59 Mildly to moder ately rsftnifwcD4k 3 0-44 Moderately to s everely decreasedG4 15- 29 Severely decreasedG5 <15 Kidney failureThe eGFR was calculated usin g the Chronic Kidney Disease Epidemiology Co llaboration (CKD-EPI) equat ion. Interpretation is based on recommendations of the National Kidney Foundation-Kidn ey Disease Outcomes Qualit y Initiative (NKF-KDOQI) pub lished in 2014. [facility] [id number] 16:55:00 Test Item Value Reference Range Interpretation Comments POC creatinine (test 0.9 mg/dl 0.5-0.9 Operato r Name: Bernard code = 05676-6) DebyamilethhDvamsiBatu Biologics e ID: [id number] [facility] [id number] 16:55:00 Test Item Value Reference Range Interpretation Comments Estimated GFR (test mL/min/1.73 m2 Caterg ory Units code = 12663-4) Interpretati onG1 >=90 Normal or highG 2 60-89 Mildly decrease dG3a 45-59 Mildly to moder ately kxyrtlrlwC0z 30 -44 Moderately to s everely decreasedG4 15- 29 Severely decreasedG5 <15 Kidney failureThe eGFR was calculated usin g the Chronic Kidney Disease Epidemiology Co llaboration (CKD-EPI) equat ion. Interpretation is based on recommendations of the National Kidney Foundation-Kidn ey Disease Outcomes Qualit y Initiative (NKF-KDOQI) pub lished in 2014. [facility] [id number] 16:55:00 Test Item Value Reference Range Interpretation Comments POC creatinine (test 0.9 mg/dl 0.5-0.9 Operato r Name: Bernard code = 39170-4) SharifaCommonBond e ID: [id number] [facility]Estim[facility] [id number] 16:55:00 Test Item Value Reference Range Interpretation Comments Estimated GFR (test mL/min/1.73 m2 Caterg ory Units code = 39653-2) Interpretati onG1 >=90 Normal or highG 2 60-89 Mildly decrease dG3a 45-59 Mildly to moder ately msfrfnnypP4f 30 -44 Moderately to s everely decreasedG4 15- 29 Severely decreasedG5 <15 Kidney failureThe eGFR was calculated usin g the Chronic Kidney Disease Epidemiology Co llaboration (CKD-EPI) equat ion. Interpretation is based on recommendations of the National Kidney Foundation-Kidn ey Disease Outcomes Qualit y Initiative (NKF-KDOQI) pub lished in 2014. [facility] CenterNEW[facility] SCREEN (PKU)2021-01-24 14:27:00 Test Item Value Reference Interpretation Comments Range SCREEN Normal NORMAL INTERPRETATION (test Screen code = NBINT) NBS AMINO ACID Normal NORMAL DISORDERS (test code = Screen NBAAD) NBS FATTY ACID Normal NORMAL DISORDERS (test code = Screen NBFAD) NBS ORGANIC ACID Normal NORMAL DISORDERS (test code = Screen NBOAD) NBS GALACTOSEMIA (test Normal NORMAL code = NBGAL) Screen NBS BIOTINIDASE (test Normal NORMAL code = NBBIO) Screen NBS HYPOTHRYOIDISM Normal NORMAL (test code = NBHYP) Screen NBS OUMAR ADRENAL Normal NORMAL HYPERPLASIA (test code Screen = NBCAH) NBS CYSTIC FIBROSIS Normal NORMAL (test code = NBCYS) Screen NBS HEMOGLOBINOPATHIES Normal NORMAL (test code = NBHEM) Screen NBS SEVERE COMBINED Normal NORMAL The n ewborn screen IMMUNODEFI (test code = Screen iden tifies newborns at NBSCID) increased riskf or specified disor ders. Analyte results are only listedfor abnor mal disorder screen . Recommended col lection timeand test me thods have been designed t o minimize the numberof fa lse negative and fa lse positive result s in newborns andyou ng infants. When collected before 24 hours of age or onolder children, the t est may not identify some conditions.If t here is a clinical concer n, diagnostic test ing should beinitiated. Sp ecimmens that are unacce ptable are reported asUnsa tisfactory. DISORDERS SCREENED:AMINO ACID DISORDERS: Argininosuccini c Acidemia (ASA),Citrullin emia (CIT), Homocystinuria (HCY), Maple SyrupDise ase (MSUD), Phenylketonuria (PKU), Tyrosinemia Typ e I(TYRI).FATTY A ELO DISORDERS: Medi um Chain Acyl-CoA DehydrogenaseDe ficiency (MCAD), Very Lo ng Chain Acyl-CoA DehydrogenaseDe ficiency (VLCAD), Long C junior Hydroxyacyl-CoA Dehydrogena se (LCHAD), Tri functional Protein Deficie ncy(TFP), Carnitine Uptak e Deficiency (CUD ).ORGANIC ACID DISORDERS: Glutaric Acidemia 1 (GA- 1), 3-HZ3-Hzwgsw Gl utaric Aciduria (HMG), Isovaleric Acidemia (HILLARY)M ultiple Carboxylase Def iciency (SHARA), 3-MethylCrotony l-CoA Carboxylase Def iciency (3-[facility]), MethylmalonicAc idemia (MMA), Propioni c Acidemia (PA), Beta-Ketothiola seDeficienc y (BKT).GALACTOSE JASON.BIOTINI DASE DEFICIENCY .ENDOCRINE DISORDERS: Oumar enital Hypothyroidism (CH),Congenital Adrenal Hyperplasia (CAH).HEMOGLOBI NOPATHIES: Hb S/S, Hb S/C, Hb S-Beta thalassemiaCYST IC FIRBROSIS (CF). SEVERE COMBINED IMMUNO DEFICIENCY (SCID)--SCID/TR EC (T-cell Receptor Excisi on Circles) testperformed b y quantitative PC R. This test was develo ped andits performance characteristics determined by [facility].T he test has not been by US Food and Drug Administra tion(FDA). The FDA has det ermined such approval i s not necessary Comme nt text revised: 2012 X-LINKED Normal NORMAL ADRENOLEUKODYSTROPHY Screen (test code = NBXALD) [id number]2018-07-12 15:10:00 Test Item Value Reference Range Interpretation Comments B/C Ratio (test code = B/C Ratio) 29 1 6-25 [facility]2018-07-12 15:10:00 Test Item Value Reference Range Interpretation Comments A/G Ratio (test code = A/G Ratio) 0.8 1 0.7-1.6 [facility]2018-07-12 15:10:00 Test Item Value Reference Range Interpretation Comments Globulin (test code = Globulin) 4.2 2.7-4.2 [facility]2018-07-12 15:10:00 Test Item Value Reference Range Interpretation Comments AGAP (test code = AGAP) 10.0 10.0-20.0 [facility]2018-07-12 15:10:00 Test Item Value Reference Range Interpretation Comments eGFR (test code = eGFR) 58 [facility]2018-07-12 15:10:00 Test Item Value Reference Range Interpretation Comments Glucose Lvl (test code = Glucose Lvl) 95 70-99 [facility]2018-07-12 15:10:00 Test Item Value Reference Range Interpretation Comments Bili Total (test code = Bili Total) 0.5 0.2-1.3 [facility]2018-07-12 15:10:00 Test Item Value Reference Range Interpretation Comments AST (test code = AST) 11 See_Comment [Auto mated message] The system which ge nerated this result transmit son reference range : <=37. The reference range was not used to interpr et this result as nikki l/abnormal. [facility]2018-07-12 15:10:00 Test Item Value Reference Range Interpretation Comments Alk Phos (test code = Alk Phos) 80 39-136 [facility]2018-07-12 15:10:00 Test Item Value Reference Range Interpretation Comments Albumin Lvl (test code = Albumin Lvl) 3.5 3.5-5.0 [facility]2018-07-12 15:10:00 Test Item Value Reference Range Interpretation Comments Total Protein (test code = Total 7.7 6.4-8.4 Protein) [facility]2018-07-12 15:10:00 Test Item Value Reference Range Interpretation Comments Potassium Lvl (test code = Potassium 4.0 3.5-5.1 Lvl) [facility]2018-07-12 15:10:00 Test Item Value Reference Range Interpretation Comments Sodium Lvl (test code = Sodium Lvl) 142 135-145 [facility]2018-07-12 15:10:00 Test Item Value Reference Range Interpretation Comments ALT (test code = ALT) 24 See_Comment [Auto mated message] The system which ge nerated this result transmit son reference range : <=65. The reference range was not used to interpr et this result as nikki l/abnormal. [facility]2018-07-12 15:10:00 Test Item Value Reference Range Interpretation Comments Creatinine Lvl (test code = Creatinine 0.97 0.50-1.40 Lvl) [facility]2018-07-12 15:10:00 Test Item Value Reference Range Interpretation Comments CO2 (test code = CO2) 26 24-32 [facility]2018-07-12 15:10:00 Test Item Value Reference Range Interpretation Comments Chloride Lvl (test code = Chloride Lvl) 110 95-109 [facility]2018-07-12 15:10:00 Test Item Value Reference Range Interpretation Comments Calcium Lvl (test code = Calcium Lvl) 8.6 8.5-10.5 [facility]2018-07-12 15:10:00 Test Item Value Reference Range Interpretation Comments BUN (test code = BUN) 28 7-22 [id number] 15:10:00 Test Item Value Reference Range Interpretation Comments Monocytes # (test code 0.3 See_Comment [Aut omated message] The = Monocytes #) system which generated this result tra nsmitted reference range : <=0.8. The reference r bill was not used to int erpret this result as normal/abnormal . [facility] [id number] 15:10:00 Test Item Value Reference Range Interpretation Comments Monocytes (test code = Monocytes) 5.0 2.0-12.0 [facility] [id number] 15:10:00 Test Item Value Reference Range Interpretation Comments Eosinophils (test code = 0.3 See_Comment [A utomated message] The Eosinophils) system which ge nerated this result tra nsmitted reference range : <=4.0. The reference r bill was not used to int erpret this result as normal/abnormal . [facility] Cent[id number] 15:10:00 Test Item Value Reference Range Interpretation Comments Basophils (test code = 0.4 See_Comment [Aut omated message] The Basophils) system which ge nerated this result tra nsmitted reference range : <=1.0. The reference r bill was not used to int erpret this result as normal/abnormal . [facility] [id number] 15:10:00 Test Item Value Reference Range Interpretation Comments Segs-Bands # (test code = Segs-Bands #) 3.8 1.5-8.1 [facility] CenterYawrstiGJGVQVEUKY9590-10-79 15:10:00 Test Item Value Reference Range Interpretation Comments Lymphocytes # (test code = Lymphocytes 2.3 1.0-5.5 #) [facility] C[id number] 15:10:00 Test Item Value Reference Range Interpretation Comments RBC Morph (test code = Normal (11/22/17 10:10 RBC Morph) AM) [facility] C[id number] 15:10:00 Test Item Value Reference Range Interpretation Comments Plt Morph (test code = Normal (11/22/17 10:10 Plt Morph) AM) [facility] C[id number] 15:10:00 Test Item Value Reference Range Interpretation Comments Segs (test code = Segs) 58.7 45.0-75.0 [facility] CenterUrixiveLYFXCSRBAQ1468-64-23 15:10:00 Test Item Value Reference Range Interpretation Comments Lymphocytes (test code = Lymphocytes) 35.6 20.0-40.0 [facility]AloqzhrJTOESLCRAG7542-73-63 15:10:00 Test Item Value Reference Range Interpretation Comments MCHC (test code = MCHC) 34.5 32.0-36.0 [facility] CenterWejzoamWHRKVUSSQX6458-62-98 15:10:00 Test Item Value Reference Range Interpretation Comments MCH (test code = MCH) 31.2 pg 27.0-31.0 [facility] Cent[id number] 15:10:00 Test Item Value Reference Range Interpretation Comments MCV (test code = MCV) 90.6 80.0-98.0 [facility] CenterUipxbifXVAMBNWGUU2798-40-00 15:10:00 Test Item Value Reference Range Interpretation Comments Hct (test code = Hct) 36.4 36.0-48.0 [facility] CenterJgigwzrHYQHFAOWGJ9815-03-40 15:10:00 Test Item Value Reference Range Interpretation Comments Hgb (test code = Hgb) 12.5 12.0-16.0 [facility] CenterOjkksgwXPQYQTQZDO9307-28-11 15:10:00 Test Item Value Reference Range Interpretation Comments MPV (test code = MPV) 9.4 7.4-10.4 [facility] CenterIawkexrTETKZUPWAH1581-23-78 15:10:00 Test Item Value Reference Range Interpretation Comments Platelet (test code = Platelet) 190 133-450 [facility] CenterJrfveyaIESCBVKJSJ9055-71-75 15:10:00 Test Item Value Reference Range Interpretation Comments RDW (test code = RDW) 13.0 11.5-14.5 [facility] CenterSfzgfebCHXKMGDYNR7101-76-72 15:10:00 Test Item Value Reference Range Interpretation Comments RBC (test code = RBC) 4.02 4.20-5.40 [facility] CenterDbkywcbMRGUHSZLIM3609-94-91 15:10:00 Test Item Value Reference Range Interpretation Comments WBC (test code = WBC) 6.5 3.7-10.4 [facility] [id number] 15:10:00 Test Item Value Reference Range Interpretation Comments B/C Ratio (test code = B/C Ratio) 29 1 6-25 [facility]aleInf[facility], Inc[facility] [id number] 15:10:00 Test Item Value Reference Range Interpretation Comments A/G Ratio (test code = A/G Ratio) 0.8 1 0.7-1.6 [facility]2018-07-12 15:10:00 Test Item Value Reference Range Interpretation Comments Globulin (test code = Globulin) 4.2 2.7-4.2 [facility]2018-07-12 15:10:00 Test Item Value Reference Range Interpretation Comments AGAP (test code = AGAP) 10.0 10.0-20.0 [facility]2018-07-12 15:10:00 Test Item Value Reference Range Interpretation Comments eGFR (test code = eGFR) 58 [facility]2018-07-12 15:10:00 Test Item Value Reference Range Interpretation Comments Glucose Lvl (test code = Glucose Lvl) 95 70-99 [facility]2018-07-12 15:10:00 Test Item Value Reference Range Interpretation Comments Bili Total (test code = Bili Total) 0.5 0.2-1.3 [facility]2018-07-12 15:10:00 Test Item Value Reference Range Interpretation Comments AST (test code = AST) 11 See_Comment [Auto mated message] The system which ge nerated this result transmit son reference range : <=37. The reference range was not used to interpr et this result as nikki l/abnormal. [facility]2018-07-12 15:10:00 Test Item Value Reference Range Interpretation Comments Alk Phos (test code = Alk Phos) 80 39-136 [facility]2018-07-12 15:10:00 Test Item Value Reference Range Interpretation Comments Albumin Lvl (test code = Albumin Lvl) 3.5 3.5-5.0 [facility]2018-07-12 15:10:00 Test Item Value Reference Range Interpretation Comments Total Protein (test code = Total 7.7 6.4-8.4 Protein) [facility]2018-07-12 15:10:00 Test Item Value Reference Range Interpretation Comments Potassium Lvl (test code = Potassium 4.0 3.5-5.1 Lvl) [facility]2018-07-12 15:10:00 Test Item Value Reference Range Interpretation Comments Sodium Lvl (test code = Sodium Lvl) 142 135-145 [facility]2018-07-12 15:10:00 Test Item Value Reference Range Interpretation Comments ALT (test code = ALT) 24 See_Comment [Auto mated message] The system which ge nerated this result transmit son reference range : <=65. The reference range was not used to interpr et this result as nikki l/abnormal. [facility]2018-07-12 15:10:00 Test Item Value Reference Range Interpretation Comments Creatinine Lvl (test code = Creatinine 0.97 0.50-1.40 Lvl) [facility]2018-07-12 15:10:00 Test Item Value Reference Range Interpretation Comments CO2 (test code = CO2) 26 24-32 [facility]2018-07-12 15:10:00 Test Item Value Reference Range Interpretation Comments Chloride Lvl (test code = Chloride Lvl) 110 95-109 [facility]2018-07-12 15:10:00 Test Item Value Reference Range Interpretation Comments Calcium Lvl (test code = Calcium Lvl) 8.6 8.5-10.5 [facility]2018-07-12 15:10:00 Test Item Value Reference Range Interpretation Comments BUN (test code = BUN) 28 7-22 [facility] CenterRlwbezoCPATJWMHBD7578-13-02 15:10:00 Test Item Value Reference Range Interpretation Comments Monocytes # (test code 0.3 See_Comment [Aut omated message] The = Monocytes #) system which generated this result tra nsmitted reference range : <=0.8. The reference r bill was not used to int erpret this result as normal/abnormal . [facility] CenterTfighqmKDWOPBPKIQ4487-47-27 15:10:00 Test Item Value Reference Range Interpretation Comments Monocytes (test code = Monocytes) 5.0 2.0-12.0 [facility] CenterSriwbcnCWXWDDGGUC0523-32-98 15:10:00 Test Item Value Reference Range Interpretation Comments Eosinophils (test code = 0.3 See_Comment [A utomated message] The Eosinophils) system which ge nerated this result tra nsmitted reference range : <=4.0. The reference r bill was not used to int erpret this result as normal/abnormal . [facility] CenterQptuttrGCLDBVYVAV5217-66-86 15:10:00 Test Item Value Reference Range Interpretation Comments Basophils (test code = 0.4 See_Comment [Aut omated message] The Basophils) system which ge nerated this result tra nsmitted reference range : <=1.0. The reference r bill was not used to int erpret this result as normal/abnormal . [facility] CenterKksbzejXUKQMZXPBL8843-66-27 15:10:00 Test Item Value Reference Range Interpretation Comments Segs-Bands # (test code = Segs-Bands #) 3.8 1.5-8.1 [facility] CenterScewvoyHDOTTUVXTZ3277-67-68 15:10:00 Test Item Value Reference Range Interpretation Comments Lymphocytes # (test code = Lymphocytes 2.3 1.0-5.5 #) [facility] CenterZkxgjqwBJZCTJUZRI7172-40-95 15:10:00 Test Item Value Reference Range Interpretation Comments RBC Morph (test code = Normal (11/22/17 10:10 RBC Morph) AM) [facility] CenterXmpbbyaUQAVCTPBFR8043-13-37 15:10:00 Test Item Value Reference Range Interpretation Comments Plt Morph (test code = Normal (11/22/17 10:10 Plt Morph) AM) [facility] CenterMxsbilbXPBADSPEDM6175-28-88 15:10:00 Test Item Value Reference Range Interpretation Comments Segs (test code = Segs) 58.7 45.0-75.0 [facility] CenterWtksxvlLCEPEDIZEA3924-43-35 15:10:00 Test Item Value Reference Range Interpretation Comments Lymphocytes (test code = Lymphocytes) 35.6 20.0-40.0 [facility] CenterUwghwjxUEONZEAMKF7356-76-62 15:10:00 Test Item Value Reference Range Interpretation Comments MCHC (test code = MCHC) 34.5 32.0-36.0 [facility] CenterGtixrefQNXDEDQDJX0546-18-32 15:10:00 Test Item Value Reference Range Interpretation Comments MCH (test code = MCH) 31.2 pg 27.0-31.0 [facility] CenterShqdrulMOPLPEPHPB1501-32-86 15:10:00 Test Item Value Reference Range Interpretation Comments MCV (test code = MCV) 90.6 80.0-98.0 [facility] CenterYutnihmRMVCVKWTQT6347-32-12 15:10:00 Test Item Value Reference Range Interpretation Comments Hct (test code = Hct) 36.4 36.0-48.0 [facility] CenterJtkyuaqISXILIZGTO5412-43-29 15:10:00 Test Item Value Reference Range Interpretation Comments Hgb (test code = Hgb) 12.5 12.0-16.0 [facility] CenterOilzpjbLBCJXJADHQ8319-79-83 15:10:00 Test Item Value Reference Range Interpretation Comments MPV (test code = MPV) 9.4 7.4-10.4 [facility] CenterUkkjpuxBKDJZWDCUM0581-99-75 15:10:00 Test Item Value Reference Range Interpretation Comments Platelet (test code = Platelet) 190 133-450 [facility] CenterNuqudlfXOLUTXQLRD7876-47-77 15:10:00 Test Item Value Reference Range Interpretation Comments RDW (test code = RDW) 13.0 11.5-14.5 [facility] CenterAlvmynhYDTFTFBKWN3686-99-53 15:10:00 Test Item Value Reference Range Interpretation Comments RBC (test code = RBC) 4.02 4.20-5.40 [facility] CenterYgyyxrxQZTDBJURTB5902-33-41 15:10:00 Test Item Value Reference Range Interpretation Comments WBC (test code = WBC) 6.5 3.7-10.4 [facility]2018-07-12 15:10:00 Test Item Value Reference Range Interpretation Comments B/C Ratio (test code = B/C Ratio) 29 1 6-25 [facility]2018-07-12 15:10:00 Test Item Value Reference Range Interpretation Comments A/G Ratio (test code = A/G Ratio) 0.8 1 0.7-1.6 [facility]2018-07-12 15:10:00 Test Item Value Reference Range Interpretation Comments Globulin (test code = Globulin) 4.2 2.7-4.2 [facility]2018-07-12 15:10:00 Test Item Value Reference Range Interpretation Comments AGAP (test code = AGAP) 10.0 10.0-20.0 [facility]2018-07-12 15:10:00 Test Item Value Reference Range Interpretation Comments eGFR (test code = eGFR) 58 [facility]2018-07-12 15:10:00 Test Item Value Reference Range Interpretation Comments Glucose Lvl (test code = Glucose Lvl) 95 70-99 [facility]2018-07-12 15:10:00 Test Item Value Reference Range Interpretation Comments Bili Total (test code = Bili Total) 0.5 0.2-1.3 [facility]2018-07-12 15:10:00 Test Item Value Reference Range Interpretation Comments AST (test code = AST) 11 See_Comment [Auto mated message] The system which ge nerated this result transmit son reference range : <=37. The reference range was not used to interpr et this result as nikki l/abnormal. [facility]2018-07-12 15:10:00 Test Item Value Reference Range Interpretation Comments Alk Phos (test code = Alk Phos) 80 39-136 [facility]2018-07-12 15:10:00 Test Item Value Reference Range Interpretation Comments Albumin Lvl (test code = Albumin Lvl) 3.5 3.5-5.0 [facility]2018-07-12 15:10:00 Test Item Value Reference Range Interpretation Comments Total Protein (test code = Total 7.7 6.4-8.4 Protein) [facility]2018-07-12 15:10:00 Test Item Value Reference Range Interpretation Comments Potassium Lvl (test code = Potassium 4.0 3.5-5.1 Lvl) [facility]2018-07-12 15:10:00 Test Item Value Reference Range Interpretation Comments Sodium Lvl (test code = Sodium Lvl) 142 135-145 [facility]2018-07-12 15:10:00 Test Item Value Reference Range Interpretation Comments ALT (test code = ALT) 24 See_Comment [Auto mated message] The system which ge nerated this result transmit son reference range : <=65. The reference range was not used to interpr et this result as nikki l/abnormal. [facility]2018-07-12 15:10:00 Test Item Value Reference Range Interpretation Comments Creatinine Lvl (test code = Creatinine 0.97 0.50-1.40 Lvl) [facility]2018-07-12 15:10:00 Test Item Value Reference Range Interpretation Comments CO2 (test code = CO2) 26 24-32 [facility]2018-07-12 15:10:00 Test Item Value Reference Range Interpretation Comments Chloride Lvl (test code = Chloride Lvl) 110 95-109 [facility]2018-07-12 15:10:00 Test Item Value Reference Range Interpretation Comments Calcium Lvl (test code = Calcium Lvl) 8.6 8.5-10.5 [facility]2018-07-12 15:10:00 Test Item Value Reference Range Interpretation Comments BUN (test code = BUN) 28 7-22 [facility] CenterShgphofBQTZHKRFWW5108-60-05 15:10:00 Test Item Value Reference Range Interpretation Comments Monocytes # (test code 0.3 See_Comment [Aut omated message] The = Monocytes #) system which generated this result tra nsmitted reference range : <=0.8. The reference r bill was not used to int erpret this result as normal/abnormal . [facility] CenterImddptuWLXGEHZYZS6173-19-89 15:10:00 Test Item Value Reference Range Interpretation Comments Monocytes (test code = Monocytes) 5.0 2.0-12.0 [facility] CenterDdjmdrbONJUUIDWPM7075-39-49 15:10:00 Test Item Value Reference Range Interpretation Comments Eosinophils (test code = 0.3 See_Comment [A utomated message] The Eosinophils) system which ge nerated this result tra nsmitted reference range : <=4.0. The reference r bill was not used to int erpret this result as normal/abnormal . [facility] CenterBnnrerkUDRTKENWBL4533-60-54 15:10:00 Test Item Value Reference Range Interpretation Comments Basophils (test code = 0.4 See_Comment [Aut omated message] The Basophils) system which ge nerated this result tra nsmitted reference range : <=1.0. The reference r bill was not used to int erpret this result as normal/abnormal . [facility] CenterPhebjtqQPOHRVFCAX9101-91-96 15:10:00 Test Item Value Reference Range Interpretation Comments Segs-Bands # (test code = Segs-Bands #) 3.8 1.5-8.1 [facility] CenterYkknkpkDUGHUFBTZZ1634-93-89 15:10:00 Test Item Value Reference Range Interpretation Comments Lymphocytes # (test code = Lymphocytes 2.3 1.0-5.5 #) [facility] CenterVacncufSUFKLHKZKX0233-89-86 15:10:00 Test Item Value Reference Range Interpretation Comments RBC Morph (test code = Normal (11/22/17 10:10 RBC Morph) AM) [facility] CenterEfpsliuYJYXVGKQQT4221-87-06 15:10:00 Test Item Value Reference Range Interpretation Comments Plt Morph (test code = Normal (11/22/17 10:10 Plt Morph) AM) [place] 025738-07-12 15:10:00 Test Item Value Reference Range Interpretation Comments Segs (test code = Segs) 58.7 45.0-75.0 [facility] CenterHgdnvzmJPHHGZLOAC3508-94-62 15:10:00 Test Item Value Reference Range Interpretation Comments Lymphocytes (test code = Lymphocytes) 35.6 20.0-40.0 [facility] CenterVreoiufBIWZDMVXPK8111-91-67 15:10:00 Test Item Value Reference Range Interpretation Comments MCHC (test code = MCHC) 34.5 32.0-36.0 [facility] CenterKsssxmuOOVOGMHURK5986-76-85 15:10:00 Test Item Value Reference Range Interpretation Comments MCH (test code = MCH) 31.2 pg 27.0-31.0 [facility] CenterFdqjimbHHTBEGMPHK6739-76-15 15:10:00 Test Item Value Reference Range Interpretation Comments MCV (test code = MCV) 90.6 80.0-98.0 [facility] CenterBvcuzmzEQQXKNLEQD8099-29-04 15:10:00 Test Item Value Reference Range Interpretation Comments Hct (test code = Hct) 36.4 36.0-48.0 [facility] CenterUiknomfSAUSYTEVIY2051-11-89 15:10:00 Test Item Value Reference Range Interpretation Comments Hgb (test code = Hgb) 12.5 12.0-16.0 [facility] CenterCgtvrnySDVIUSCGGD6068-07-60 15:10:00 Test Item Value Reference Range Interpretation Comments MPV (test code = MPV) 9.4 7.4-10.4 [facility] CenterBliuabpIYJEAVUBMZ1746-89-77 15:10:00 Test Item Value Reference Range Interpretation Comments Platelet (test code = Platelet) 190 133-450 [facility] CenterPygxudlJGMPCRTHJK8052-40-65 15:10:00 Test Item Value Reference Range Interpretation Comments RDW (test code = RDW) 13.0 11.5-14.5 [facility] CenterKskzurzZEGMZWDZZA1030-65-59 15:10:00 Test Item Value Reference Range Interpretation Comments RBC (test code = RBC) 4.02 4.20-5.40 [facility] CenterTgogyfbELMZGVYTVN2930-33-11 15:10:00 Test Item Value Reference Range Interpretation Comments WBC (test code = WBC) 6.5 3.7-10.4 [facility]2018-07-12 15:10:00 Test Item Value Reference Range Interpretation Comments B/C Ratio (test code = B/C Ratio) 29 1 6-25 [facility]2018-07-12 15:10:00 Test Item Value Reference Range Interpretation Comments A/G Ratio (test code = A/G Ratio) 0.8 1 0.7-1.6 [facility]2018-07-12 15:10:00 Test Item Value Reference Range Interpretation Comments Globulin (test code = Globulin) 4.2 2.7-4.2 [facility]2018-07-12 15:10:00 Test Item Value Reference Range Interpretation Comments AGAP (test code = AGAP) 10.0 10.0-20.0 [facility]2018-07-12 15:10:00 Test Item Value Reference Range Interpretation Comments eGFR (test code = eGFR) 58 [facility]2018-07-12 15:10:00 Test Item Value Reference Range Interpretation Comments Glucose Lvl (test code = Glucose Lvl) 95 70-99 [facility]2018-07-12 15:10:00 Test Item Value Reference Range Interpretation Comments Bili Total (test code = Bili Total) 0.5 0.2-1.3 [facility]2018-07-12 15:10:00 Test Item Value Reference Range Interpretation Comments AST (test code = AST) 11 See_Comment [Auto mated message] The system which ge nerated this result transmit son reference range : <=37. The reference range was not used to interpr et this result as nikki l/abnormal. [facility]2018-07-12 15:10:00 Test Item Value Reference Range Interpretation Comments Alk Phos (test code = Alk Phos) 80 39-136 [facility]2018-07-12 15:10:00 Test Item Value Reference Range Interpretation Comments Albumin Lvl (test code = Albumin Lvl) 3.5 3.5-5.0 [facility]2018-07-12 15:10:00 Test Item Value Reference Range Interpretation Comments Total Protein (test code = Total 7.7 6.4-8.4 Protein) [facility]2018-07-12 15:10:00 Test Item Value Reference Range Interpretation Comments Potassium Lvl (test code = Potassium 4.0 3.5-5.1 Lvl) [facility]2018-07-12 15:10:00 Test Item Value Reference Range Interpretation Comments Sodium Lvl (test code = Sodium Lvl) 142 135-145 [facility]2018-07-12 15:10:00 Test Item Value Reference Range Interpretation Comments ALT (test code = ALT) 24 See_Comment [Auto mated message] The system which ge nerated this result transmit son reference range : <=65. The reference range was not used to interpr et this result as nikki l/abnormal. [facility]2018-07-12 15:10:00 Test Item Value Reference Range Interpretation Comments Creatinine Lvl (test code = Creatinine 0.97 0.50-1.40 Lvl) [facility]2018-07-12 15:10:00 Test Item Value Reference Range Interpretation Comments CO2 (test code = CO2) 26 24-32 [facility]2018-07-12 15:10:00 Test Item Value Reference Range Interpretation Comments Chloride Lvl (test code = Chloride Lvl) 110 95-109 [facility]2018-07-12 15:10:00 Test Item Value Reference Range Interpretation Comments Calcium Lvl (test code = Calcium Lvl) 8.6 8.5-10.5 [facility]2018-07-12 15:10:00 Test Item Value Reference Range Interpretation Comments BUN (test code = BUN) 28 7-22 [facility] CenterAotwgdwCCXWNIEHRV3234-68-08 15:10:00 Test Item Value Reference Range Interpretation Comments Monocytes # (test code 0.3 See_Comment [Aut omated message] The = Monocytes #) system which generated this result tra nsmitted reference range : <=0.8. The reference r bill was not used to int erpret this result as normal/abnormal . [facility] CenterSitcvsfQPVCDUDYKI2117-73-09 15:10:00 Test Item Value Reference Range Interpretation Comments Monocytes (test code = Monocytes) 5.0 2.0-12.0 [facility] CenterNbowzfuLQVWZTNEJX5024-25-77 15:10:00 Test Item Value Reference Range Interpretation Comments Eosinophils (test code = 0.3 See_Comment [A utomated message] The Eosinophils) system which ge nerated this result tra nsmitted reference range : <=4.0. The reference r bill was not used to int erpret this result as normal/abnormal . [facility] CenterEgtsniaGFYCFMDZWC5156-20-91 15:10:00 Test Item Value Reference Range Interpretation Comments Basophils (test code = 0.4 See_Comment [Aut omated message] The Basophils) system which ge nerated this result tra nsmitted reference range : <=1.0. The reference r bill was not used to int erpret this result as normal/abnormal . [facility] CenterNpphfxbYSMSQKLDUX7927-27-55 15:10:00 Test Item Value Reference Range Interpretation Comments Segs-Bands # (test code = Segs-Bands #) 3.8 1.5-8.1 [facility] CenterPvhibevBYJLWNSYXK7330-72-76 15:10:00 Test Item Value Reference Range Interpretation Comments Lymphocytes # (test code = Lymphocytes 2.3 1.0-5.5 #) [facility] CenterZtpvzkrVHAECCUOKR2383-65-15 15:10:00 Test Item Value Reference Range Interpretation Comments RBC Morph (test code = Normal (11/22/17 10:10 RBC Morph) AM) [facility] CenterEwztospAARZRKEXFI5979-64-88 15:10:00 Test Item Value Reference Range Interpretation Comments Plt Morph (test code = Normal (11/22/17 10:10 Plt Morph) AM) [facility] CenterVihopdyQBVRNDQKGK5855-18-63 15:10:00 Test Item Value Reference Range Interpretation Comments Segs (test code = Segs) 58.7 45.0-75.0 [facility] CenterUlhqrwmVHSHRSLEQU2136-75-47 15:10:00 Test Item Value Reference Range Interpretation Comments Lymphocytes (test code = Lymphocytes) 35.6 20.0-40.0 [facility] CenterPbqbivaMYKNSASYRP0643-77-28 15:10:00 Test Item Value Reference Range Interpretation Comments MCHC (test code = MCHC) 34.5 32.0-36.0 [facility] CenterAdvpaxhCOSEJFQOQI4245-56-67 15:10:00 Test Item Value Reference Range Interpretation Comments MCH (test code = MCH) 31.2 pg 27.0-31.0 [facility] CenterNfuwghwHPLSTRPBOJ0032-46-99 15:10:00 Test Item Value Reference Range Interpretation Comments MCV (test code = MCV) 90.6 80.0-98.0 [facility] CenterLpweughMBQHUEFHLH3593-40-98 15:10:00 Test Item Value Reference Range Interpretation Comments Hct (test code = Hct) 36.4 36.0-48.0 [facility] CenterObdtzrzZVQAWRFBNL0585-35-88 15:10:00 Test Item Value Reference Range Interpretation Comments Hgb (test code = Hgb) 12.5 12.0-16.0 [facility] CenterWinwxpnBEMPHYXCLX5780-88-95 15:10:00 Test Item Value Reference Range Interpretation Comments MPV (test code = MPV) 9.4 7.4-10.4 [facility] CenterBucoglvRIJOZNMWBM8551-17-34 15:10:00 Test Item Value Reference Range Interpretation Comments Platelet (test code = Platelet) 190 133-450 [facility] CenterYhjyveuHAMIAKQYXR6310-37-31 15:10:00 Test Item Value Reference Range Interpretation Comments RDW (test code = RDW) 13.0 11.5-14.5 [facility] CenterTtqexjrKIVZOCDXEK4415-06-12 15:10:00 Test Item Value Reference Range Interpretation Comments RBC (test code = RBC) 4.02 4.20-5.40 [facility] CenterBuvoafgGTZXYILQNV4501-71-62 15:10:00 Test Item Value Reference Range Interpretation Comments WBC (test code = WBC) 6.5 3.7-10.4 [facility] CenterSyrtohjUENJIKWTPA6488-81-59 08:23:00 Test Item Value Reference Range Interpretation Comments Eosinophils (test code = 0.1 See_Comment [A utomated message] The Eosinophils) system which ge nerated this result tra nsmitted reference range : <=4.0. The reference r bill was not used to int erpret this result as normal/abnormal . [facility] CenterYuuyvnwAZPPZYZXAE1883-69-77 08:23:00 Test Item Value Reference Range Interpretation Comments Platelet (test code = Platelet) 147 133-450 [facility] CenterSvvydumBGIXWDQEYP8613-92-68 08:23:00 Test Item Value Reference Range Interpretation Comments MPV (test code = MPV) 9.7 7.4-10.4 [facility] CenterMcnbleuYLMNEXSKTS5827-44-84 08:23:00 Test Item Value Reference Range Interpretation Comments RDW (test code = RDW) 13.0 11.5-14.5 [facility] CenterImrkrjiIBTIQGIBHV5659-02-37 08:23:00 Test Item Value Reference Range Interpretation Comments MCH (test code = MCH) 32.2 pg 27.0-31.0 [facility] CenterSturkxfURWRORWKSV7919-08-11 08:23:00 Test Item Value Reference Range Interpretation Comments MCHC (test code = MCHC) 34.7 32.0-36.0 [facility] CenterOlspmcrHMIVNYFFOH6744-18-72 08:23:00 Test Item Value Reference Range Interpretation Comments Hct (test code = Hct) 28.9 36.0-48.0 [facility] CenterSrdfnddCRXNSAOGBG0834-19-10 08:23:00 Test Item Value Reference Range Interpretation Comments Hgb (test code = Hgb) 10.1 12.0-16.0 [facility] CenterRmfklbyQEJUCKYDOG9361-97-59 08:23:00 Test Item Value Reference Range Interpretation Comments RBC (test code = RBC) 3.12 4.20-5.40 [facility] CenterRgccbfqOPUCCSLLLM7601-18-22 08:23:00 Test Item Value Reference Range Interpretation Comments WBC (test code = WBC) 9.5 3.7-10.4 [facility] CenterTfwomkkZTCUINROUG0785-90-30 08:23:00 Test Item Value Reference Range Interpretation Comments MCV (test code = MCV) 92.6 80.0-98.0 [facility] CenterPlgfcmxFOUEOKIXPS6330-63-69 08:23:00 Test Item Value Reference Range Interpretation Comments Segs (test code = Segs) 77.8 45.0-75.0 [facility] CenterPneysmqEWBMTPZNAE5274-24-69 08:23:00 Test Item Value Reference Range Interpretation Comments Lymphocytes (test code = Lymphocytes) 12.1 20.0-40.0 [facility] CenterIqoodgqBFZWXWKPPK3162-69-06 08:23:00 Test Item Value Reference Range Interpretation Comments Monocytes # (test code 0.9 See_Comment [Aut omated message] The = Monocytes #) system which generated this result tra nsmitted reference range : <=0.8. The reference r bill was not used to int erpret this result as normal/abnormal . [facility] CenterIsonucuRGHBUDNOCP7402-83-39 08:23:00 Test Item Value Reference Range Interpretation Comments Lymphocytes # (test code = Lymphocytes 1.2 1.0-5.5 #) [facility] CenterYpqhjgqGLCCARUBTK8215-46-22 08:23:00 Test Item Value Reference Range Interpretation Comments Segs-Bands # (test code = Segs-Bands #) 7.4 1.5-8.1 [facility] CenterBycixwcWSPDIXOTHU1199-62-33 08:23:00 Test Item Value Reference Range Interpretation Comments Basophils (test code = 0.1 See_Comment [Aut omated message] The Basophils) system which ge nerated this result tra nsmitted reference range : <=1.0. The reference r bill was not used to int erpret this result as normal/abnormal . [facility] CenterBnnpeyjIOJSFFAYJS3848-66-89 08:23:00 Test Item Value Reference Range Interpretation Comments Monocytes (test code = Monocytes) 9.9 2.0-12.0 [facility] CenterWaofvdqBLZERZUXPV2683-44-34 08:23:00 Test Item Value Reference Range Interpretation Comments Eosinophils (test code = 0.1 See_Comment [A utomated message] The Eosinophils) system which ge nerated this result tra nsmitted reference range : <=4.0. The reference r bill was not used to int erpret this result as normal/abnormal . [facility] CenterUpxdvdvNUCKYXREZL3343-83-84 08:23:00 Test Item Value Reference Range Interpretation Comments Platelet (test code = Platelet) 147 133-450 [facility] CenterZnnwuzlWIVEQRUDEI0224-24-44 08:23:00 Test Item Value Reference Range Interpretation Comments MPV (test code = MPV) 9.7 7.4-10.4 [facility] CenterNkpqwhbIJFMQCFABV4142-99-80 08:23:00 Test Item Value Reference Range Interpretation Comments RDW (test code = RDW) 13.0 11.5-14.5 [facility] CenterQahfkxpJMFRGLBSCP7002-29-28 08:23:00 Test Item Value Reference Range Interpretation Comments MCH (test code = MCH) 32.2 pg 27.0-31.0 [facility] CenterKpeaoqhAKRNZRXJHK3752-08-74 08:23:00 Test Item Value Reference Range Interpretation Comments MCHC (test code = MCHC) 34.7 32.0-36.0 [facility] CenterXrorbrnWIHTPAAGWQ4741-44-67 08:23:00 Test Item Value Reference Range Interpretation Comments Hct (test code = Hct) 28.9 36.0-48.0 [facility] CenterXraosmaIFSVNQEVLN8459-05-00 08:23:00 Test Item Value Reference Range Interpretation Comments Hgb (test code = Hgb) 10.1 12.0-16.0 [facility] CenterHoxugytIMHEYYALRR2095-77-64 08:23:00 Test Item Value Reference Range Interpretation Comments RBC (test code = RBC) 3.12 4.20-5.40 [facility] CenterYdnlngjOIFGVKUAIS5191-74-50 08:23:00 Test Item Value Reference Range Interpretation Comments WBC (test code = WBC) 9.5 3.7-10.4 [facility] CenterWvneaskZOBGPAXMVP6762-99-56 08:23:00 Test Item Value Reference Range Interpretation Comments MCV (test code = MCV) 92.6 80.0-98.0 [facility] CenterThhrvsbWYXKWRXDDJ3561-13-87 08:23:00 Test Item Value Reference Range Interpretation Comments Segs (test code = Segs) 77.8 45.0-75.0 [facility] CenterLkmadzzGKPXDZRPER4447-38-73 08:23:00 Test Item Value Reference Range Interpretation Comments Lymphocytes (test code = Lymphocytes) 12.1 20.0-40.0 [facility] CenterJvkeymvAEAQAVPZRU3028-82-68 08:23:00 Test Item Value Reference Range Interpretation Comments Monocytes # (test code 0.9 See_Comment [Aut omated message] The = Monocytes #) system which generated this result tra nsmitted reference range : <=0.8. The reference r bill was not used to int erpret this result as normal/abnormal . [facility] CenterRtssnsmCMBTQDHEGD2674-01-21 08:23:00 Test Item Value Reference Range Interpretation Comments Lymphocytes # (test code = Lymphocytes 1.2 1.0-5.5 #) [facility] CenterTzkaozxQJZVWXJTZZ1031-10-25 08:23:00 Test Item Value Reference Range Interpretation Comments Segs-Bands # (test code = Segs-Bands #) 7.4 1.5-8.1 [facility] CenterTijsxreXJXMWZZAEU6925-91-85 08:23:00 Test Item Value Reference Range Interpretation Comments Basophils (test code = 0.1 See_Comment [Aut omated message] The Basophils) system which ge nerated this result tra nsmitted reference range : <=1.0. The reference r bill was not used to int erpret this result as normal/abnormal . [facility] CenterIvzkiuaHPLRSTDELJ8973-07-49 08:23:00 Test Item Value Reference Range Interpretation Comments Monocytes (test code = Monocytes) 9.9 2.0-12.0 [facility] CenterRtxboalLHIHWKBNQX0316-61-60 08:23:00 Test Item Value Reference Range Interpretation Comments Eosinophils (test code = 0.1 See_Comment [A utomated message] The Eosinophils) system which ge nerated this result tra nsmitted reference range : <=4.0. The reference r bill was not used to int erpret this result as normal/abnormal . [facility] CenterWmvsfaeHURYYPWUFC6015-70-40 08:23:00 Test Item Value Reference Range Interpretation Comments Platelet (test code = Platelet) 147 133-450 [facility] CenterVsdokcnBLVVIARMXV4357-86-47 08:23:00 Test Item Value Reference Range Interpretation Comments MPV (test code = MPV) 9.7 7.4-10.4 [facility] CenterLwtvkuhKXVIWGOVSH1326-23-12 08:23:00 Test Item Value Reference Range Interpretation Comments RDW (test code = RDW) 13.0 11.5-14.5 [facility] CenterZzqmvxyDUSWTWZXBY7479-06-08 08:23:00 Test Item Value Reference Range Interpretation Comments MCH (test code = MCH) 32.2 pg 27.0-31.0 [facility] CenterBqttwbdIVMXLWQHIR7990-83-32 08:23:00 Test Item Value Reference Range Interpretation Comments MCHC (test code = MCHC) 34.7 32.0-36.0 [facility] CenterUtldjmaGDRQNAZQAB7249-50-07 08:23:00 Test Item Value Reference Range Interpretation Comments Hct (test code = Hct) 28.9 36.0-48.0 [facility] CenterHvqglvtITRRBQNHVD0980-88-09 08:23:00 Test Item Value Reference Range Interpretation Comments Hgb (test code = Hgb) 10.1 12.0-16.0 [facility] CenterKqrtoxiOKVHPODITX0710-31-19 08:23:00 Test Item Value Reference Range Interpretation Comments RBC (test code = RBC) 3.12 4.20-5.40 [facility] CenterRqqebhgSKTNGCGXCP4241-52-66 08:23:00 Test Item Value Reference Range Interpretation Comments WBC (test code = WBC) 9.5 3.7-10.4 [facility] CenterJioxccqLLMRYNQQKG8077-79-63 08:23:00 Test Item Value Reference Range Interpretation Comments MCV (test code = MCV) 92.6 80.0-98.0 [facility] CenterQmbwtayUHXULSCWDO9858-11-19 08:23:00 Test Item Value Reference Range Interpretation Comments Segs (test code = Segs) 77.8 45.0-75.0 [facility] CenterQwzavlrMIZJFHFQBJ6065-98-22 08:23:00 Test Item Value Reference Range Interpretation Comments Lymphocytes (test code = Lymphocytes) 12.1 20.0-40.0 [facility] CenterLcyxmfcJIQSIZQXMV0810-98-22 08:23:00 Test Item Value Reference Range Interpretation Comments Monocytes # (test code 0.9 See_Comment [Aut omated message] The = Monocytes #) system which generated this result tra nsmitted reference range : <=0.8. The reference r bill was not used to int erpret this result as normal/abnormal . [facility] CenterKtpsumgXPDDGXUIZQ3477-02-91 08:23:00 Test Item Value Reference Range Interpretation Comments Lymphocytes # (test code = Lymphocytes 1.2 1.0-5.5 #) [facility] CenterUtmaornYEKTAIAQPJ8380-54-85 08:23:00 Test Item Value Reference Range Interpretation Comments Segs-Bands # (test code = Segs-Bands #) 7.4 1.5-8.1 [facility] CenterFdcxzkkBLKKCVJWEL6836-60-19 08:23:00 Test Item Value Reference Range Interpretation Comments Basophils (test code = 0.1 See_Comment [Aut omated message] The Basophils) system which ge nerated this result tra nsmitted reference range : <=1.0. The reference r bill was not used to int erpret this result as normal/abnormal . [facility] CenterCwtsdcqEWNEQNTCVB4833-17-07 08:23:00 Test Item Value Reference Range Interpretation Comments Monocytes (test code = Monocytes) 9.9 2.0-12.0 [facility] CenterOzeivtkOSHGPUEWKA5154-06-67 08:23:00 Test Item Value Reference Range Interpretation Comments Eosinophils (test code = 0.1 See_Comment [A utomated message] The Eosinophils) system which ge nerated this result tra nsmitted reference range : <=4.0. The reference r bill was not used to int erpret this result as normal/abnormal . [facility] CenterBeruwonNTLDYJOPXB1059-52-55 08:23:00 Test Item Value Reference Range Interpretation Comments Platelet (test code = Platelet) 147 133-450 [facility] CenterDejtgkqIFXJBHUOGD7840-89-51 08:23:00 Test Item Value Reference Range Interpretation Comments MPV (test code = MPV) 9.7 7.4-10.4 [facility] CenterRrdfoixKVLEULPZYP4894-74-10 08:23:00 Test Item Value Reference Range Interpretation Comments RDW (test code = RDW) 13.0 11.5-14.5 [facility] CenterVhslxshWEVESBOAPT0869-85-42 08:23:00 Test Item Value Reference Range Interpretation Comments MCH (test code = MCH) 32.2 pg 27.0-31.0 [facility] CenterXbkbgzdNYJOQXHYGL2893-60-42 08:23:00 Test Item Value Reference Range Interpretation Comments MCHC (test code = MCHC) 34.7 32.0-36.0 [facility] CenterHjhjxpzUSYBLRIXRF0014-50-77 08:23:00 Test Item Value Reference Range Interpretation Comments Hct (test code = Hct) 28.9 36.0-48.0 [facility] CenterQthouclZBOXXDVXVE1674-31-61 08:23:00 Test Item Value Reference Range Interpretation Comments Hgb (test code = Hgb) 10.1 12.0-16.0 [facility] CenterIxohpyhLDHUXUIHBY0907-46-66 08:23:00 Test Item Value Reference Range Interpretation Comments RBC (test code = RBC) 3.12 4.20-5.40 [facility] CenterLurpkkxSXAOKABQLW7210-14-17 08:23:00 Test Item Value Reference Range Interpretation Comments WBC (test code = WBC) 9.5 3.7-10.4 [facility] CenterMuqrjusQVGYHZCUNP8259-89-67 08:23:00 Test Item Value Reference Range Interpretation Comments MCV (test code = MCV) 92.6 80.0-98.0 [facility] CenterRjhnmvfEQXRGAAPUF9736-24-99 08:23:00 Test Item Value Reference Range Interpretation Comments Segs (test code = Segs) 77.8 45.0-75.0 [facility] CenterDczasjhVZNKESCSQE6915-45-02 08:23:00 Test Item Value Reference Range Interpretation Comments Lymphocytes (test code = Lymphocytes) 12.1 20.0-40.0 [facility] CenterBkpwcnyAQGNWOIRTS9209-73-76 08:23:00 Test Item Value Reference Range Interpretation Comments Monocytes # (test code 0.9 See_Comment [Aut omated message] The = Monocytes #) system which generated this result tra nsmitted reference range : <=0.8. The reference r bill was not used to int erpret this result as normal/abnormal . [facility] CenterXvkobukFBQMJWEPPX4881-87-63 08:23:00 Test Item Value Reference Range Interpretation Comments Lymphocytes # (test code = Lymphocytes 1.2 1.0-5.5 #) [facility] CenterJqqqdbgMXNAGNATLS9949-40-14 08:23:00 Test Item Value Reference Range Interpretation Comments Segs-Bands # (test code = Segs-Bands #) 7.4 1.5-8.1 [facility] CenterQemevahAWPBBXZZWR6181-01-31 08:23:00 Test Item Value Reference Range Interpretation Comments Basophils (test code = 0.1 See_Comment [Aut omated message] The Basophils) system which ge nerated this result tra nsmitted reference range : <=1.0. The reference r bill was not used to int erpret this result as normal/abnormal . [facility] CenterBbxughtZMPSIYJBRB8180-21-61 08:23:00 Test Item Value Reference Range Interpretation Comments Monocytes (test code = Monocytes) 9.9 2.0-12.0 [facility] CenterGtcgysvKABSPVKVVZ8879-46-11 09:26:00 Test Item Value Reference Range Interpretation Comments Segs-Bands # (test code = Segs-Bands #) 10.6 1.5-8.1 [facility] CenterGwuxsixMBSEGIZMIW0854-22-24 09:26:00 Test Item Value Reference Range Interpretation Comments Monocytes # (test code 0.9 See_Comment [Aut omated message] The = Monocytes #) system which generated this result tra nsmitted reference range : <=0.8. The reference r bill was not used to int erpret this result as normal/abnormal . [facility] CenterWyoehmxOWUXYHZXML8338-60-94 09:26:00 Test Item Value Reference Range Interpretation Comments Lymphocytes # (test code = Lymphocytes 1.3 1.0-5.5 #) [facility] CenterVstbjdaNNYTNQRNPX5098-08-55 09:26:00 Test Item Value Reference Range Interpretation Comments Segs (test code = Segs) 82.7 45.0-75.0 [facility] CenterQqopyssRLJJYPYFJZ3305-67-53 09:26:00 Test Item Value Reference Range Interpretation Comments Monocytes (test code = Monocytes) 7.3 2.0-12.0 [facility] CenterGtmcwooYHPIRLGLPH0507-03-57 09:26:00 Test Item Value Reference Range Interpretation Comments Lymphocytes (test code = Lymphocytes) 10.0 20.0-40.0 [facility] CenterZfagmsrRCVBXJHSZT6849-88-02 09:26:00 Test Item Value Reference Range Interpretation Comments RDW (test code = RDW) 12.8 11.5-14.5 [facility] CenterRjldjmpSLEDIMKQQV2515-35-89 09:26:00 Test Item Value Reference Range Interpretation Comments MPV (test code = MPV) 9.0 7.4-10.4 [facility] CenterWnymvncBCNKKAGEQL0130-28-06 09:26:00 Test Item Value Reference Range Interpretation Comments Platelet (test code = Platelet) 161 133-450 [facility] CenterTwsmthiGFXWFVYSGH9233-19-56 09:26:00 Test Item Value Reference Range Interpretation Comments WBC (test code = WBC) 12.8 3.7-10.4 [facility] CenterRkselfyMOJDUYFAUV3141-95-16 09:26:00 Test Item Value Reference Range Interpretation Comments Hgb (test code = Hgb) 10.4 12.0-16.0 [facility] CenterLenyltaGDZTLQZCTH2882-99-29 09:26:00 Test Item Value Reference Range Interpretation Comments RBC (test code = RBC) 3.26 4.20-5.40 [facility] CenterOhxysvxIEOPMTITUF0326-28-17 09:26:00 Test Item Value Reference Range Interpretation Comments Hct (test code = Hct) 30.0 36.0-48.0 [facility] CenterCcokcngNYPLNPGYDA3239-09-06 09:26:00 Test Item Value Reference Range Interpretation Comments MCV (test code = MCV) 92.3 80.0-98.0 [facility] CenterGeelovdIAMMGTSTTY6058-60-20 09:26:00 Test Item Value Reference Range Interpretation Comments MCH (test code = MCH) 31.8 pg 27.0-31.0 [facility] CenterFyjmtbkDEVUIGPIZE5026-23-74 09:26:00 Test Item Value Reference Range Interpretation Comments MCHC (test code = MCHC) 34.5 32.0-36.0 [facility] CenterGocqaqySAJVUVHKUV8815-26-95 09:26:00 Test Item Value Reference Range Interpretation Comments Segs-Bands # (test code = Segs-Bands #) 10.6 1.5-8.1 [facility] CenterXtzyjyoJCEBYRQAPK8992-17-18 09:26:00 Test Item Value Reference Range Interpretation Comments Monocytes # (test code 0.9 See_Comment [Aut omated message] The = Monocytes #) system which generated this result tra nsmitted reference range : <=0.8. The reference r bill was not used to int erpret this result as normal/abnormal . [facility] CenterOjkpdsmUATKBOVJSO8734-37-18 09:26:00 Test Item Value Reference Range Interpretation Comments Lymphocytes # (test code = Lymphocytes 1.3 1.0-5.5 #) [facility] CenterUoboqvnXJYNFELXQL9167-25-94 09:26:00 Test Item Value Reference Range Interpretation Comments Segs (test code = Segs) 82.7 45.0-75.0 [place] [address]-10-18 09:26:00 Test Item Value Reference Range Interpretation Comments Monocytes (test code = Monocytes) 7.3 2.0-12.0 [place] [address]-10-18 09:26:00 Test Item Value Reference Range Interpretation Comments Lymphocytes (test code = Lymphocytes) 10.0 20.0-40.0 [place] [address]-10-18 09:26:00 Test Item Value Reference Range Interpretation Comments RDW (test code = RDW) 12.8 11.5-14.5 [facility] CenterJghzsffCCYSXOLTPH7431-04-31 09:26:00 Test Item Value Reference Range Interpretation Comments MPV (test code = MPV) 9.0 7.4-10.4 [facility] CenterGdsffprSTNUGJLODF5285-77-30 09:26:00 Test Item Value Reference Range Interpretation Comments Platelet (test code = Platelet) 161 133-450 [facility] CenterBemcxseTBONPIECXW6515-81-96 09:26:00 Test Item Value Reference Range Interpretation Comments WBC (test code = WBC) 12.8 3.7-10.4 [facility] CenterIptrwmsGUMRPJVSIF5617-15-15 09:26:00 Test Item Value Reference Range Interpretation Comments Hgb (test code = Hgb) 10.4 12.0-16.0 [facility] CenterVubgsqlCSRSUOFPRF3312-84-64 09:26:00 Test Item Value Reference Range Interpretation Comments RBC (test code = RBC) 3.26 4.20-5.40 [facility] CenterCrqwdnfOWBBRCBOMA6004-29-19 09:26:00 Test Item Value Reference Range Interpretation Comments Hct (test code = Hct) 30.0 36.0-48.0 [place] 025737-10-18 09:26:00 Test Item Value Reference Range Interpretation Comments MCV (test code = MCV) 92.3 80.0-98.0 [facility] CenterBvqzubmHJIYNAAGOZ9528-14-88 09:26:00 Test Item Value Reference Range Interpretation Comments MCH (test code = MCH) 31.8 pg 27.0-31.0 [facility] CenterHukfhmwTCBAAKIWQS6852-37-60 09:26:00 Test Item Value Reference Range Interpretation Comments MCHC (test code = MCHC) 34.5 32.0-36.0 [facility] CenterEeumuaoNSBMVEFFPN1117-81-68 09:26:00 Test Item Value Reference Range Interpretation Comments Segs-Bands # (test code = Segs-Bands #) 10.6 1.5-8.1 [facility] CenterXtzshmgDBTOTJBTDS8534-83-47 09:26:00 Test Item Value Reference Range Interpretation Comments Monocytes # (test code 0.9 See_Comment [Aut omated message] The = Monocytes #) system which generated this result tra nsmitted reference range : <=0.8. The reference r bill was not used to int erpret this result as normal/abnormal . [facility] CenterCfeadqqONZWIXIEDE9675-36-20 09:26:00 Test Item Value Reference Range Interpretation Comments Lymphocytes # (test code = Lymphocytes 1.3 1.0-5.5 #) [facility] CenterWgqhuloTEMYWHLAMI9239-68-66 09:26:00 Test Item Value Reference Range Interpretation Comments Segs (test code = Segs) 82.7 45.0-75.0 [facility] CenterKfsezldKHAONGPKKG3251-50-55 09:26:00 Test Item Value Reference Range Interpretation Comments Monocytes (test code = Monocytes) 7.3 2.0-12.0 [facility] CenterPgxkqrkWIQMSSPWXO1050-51-16 09:26:00 Test Item Value Reference Range Interpretation Comments Lymphocytes (test code = Lymphocytes) 10.0 20.0-40.0 [facility] CenterQffkcjeSLANINETAZ0350-93-85 09:26:00 Test Item Value Reference Range Interpretation Comments RDW (test code = RDW) 12.8 11.5-14.5 [facility] CenterYzfbyuqYUVBWZPAPY0406-04-27 09:26:00 Test Item Value Reference Range Interpretation Comments MPV (test code = MPV) 9.0 7.4-10.4 [facility] CenterIktvcnxLWFRZETBTV7012-03-73 09:26:00 Test Item Value Reference Range Interpretation Comments Platelet (test code = Platelet) 161 133-450 [facility] CenterJiqdccfTLMJYLRVJX2689-77-86 09:26:00 Test Item Value Reference Range Interpretation Comments WBC (test code = WBC) 12.8 3.7-10.4 [facility] CenterVzutlgeYADPUTLNNR5958-13-17 09:26:00 Test Item Value Reference Range Interpretation Comments Hgb (test code = Hgb) 10.4 12.0-16.0 [facility] CenterLsrfrksSDBKXWJHON3540-50-40 09:26:00 Test Item Value Reference Range Interpretation Comments RBC (test code = RBC) 3.26 4.20-5.40 [facility] CenterLfgrgpdNQFBAGDIOJ3594-58-38 09:26:00 Test Item Value Reference Range Interpretation Comments Hct (test code = Hct) 30.0 36.0-48.0 [facility] CenterLpsaorlRODCONOKYA4200-05-48 09:26:00 Test Item Value Reference Range Interpretation Comments MCV (test code = MCV) 92.3 80.0-98.0 [facility] CenterEnafjvtRDJENUPERO9244-96-46 09:26:00 Test Item Value Reference Range Interpretation Comments MCH (test code = MCH) 31.8 pg 27.0-31.0 [facility] CenterJbkjmrwFJGCGDBUZC1554-52-98 09:26:00 Test Item Value Reference Range Interpretation Comments MCHC (test code = MCHC) 34.5 32.0-36.0 [facility] CenterExqhhvzUVNWSBYCTX3212-13-80 09:26:00 Test Item Value Reference Range Interpretation Comments Segs-Bands # (test code = Segs-Bands #) 10.6 1.5-8.1 [facility] CenterShxcsfhLYFNVQXEUA5557-29-19 09:26:00 Test Item Value Reference Range Interpretation Comments Monocytes # (test code 0.9 See_Comment [Aut omated message] The = Monocytes #) system which generated this result tra nsmitted reference range : <=0.8. The reference r bill was not used to int erpret this result as normal/abnormal . [facility] CenterMfyigviHQZRZNGAZG2293-80-92 09:26:00 Test Item Value Reference Range Interpretation Comments Lymphocytes # (test code = Lymphocytes 1.3 1.0-5.5 #) [facility] CenterIwzxlviUQZZFBRCCK0241-30-11 09:26:00 Test Item Value Reference Range Interpretation Comments Segs (test code = Segs) 82.7 45.0-75.0 [facility] CenterClpgeogDMARMUYCIL0622-02-34 09:26:00 Test Item Value Reference Range Interpretation Comments Monocytes (test code = Monocytes) 7.3 2.0-12.0 [facility] CenterXcvzgjwQUXBYHIMAG5962-14-32 09:26:00 Test Item Value Reference Range Interpretation Comments Lymphocytes (test code = Lymphocytes) 10.0 20.0-40.0 [facility] CenterRjrubqnTHJZZHOFPU7199-60-61 09:26:00 Test Item Value Reference Range Interpretation Comments RDW (test code = RDW) 12.8 11.5-14.5 [facility] CenterYbjxqrzUDIHSCVFZS9819-16-35 09:26:00 Test Item Value Reference Range Interpretation Comments MPV (test code = MPV) 9.0 7.4-10.4 [facility] CenterIglcekfXYYYJAUETI2705-16-10 09:26:00 Test Item Value Reference Range Interpretation Comments Platelet (test code = Platelet) 161 133-450 [facility] CenterVnxhyhjGVNBZTYYNE5106-40-33 09:26:00 Test Item Value Reference Range Interpretation Comments WBC (test code = WBC) 12.8 3.7-10.4 [facility] CenterGbrwtasJCIRRQPDDX5919-03-71 09:26:00 Test Item Value Reference Range Interpretation Comments Hgb (test code = Hgb) 10.4 12.0-16.0 [facility] CenterVbviasuOXDXLMNJSK7612-73-51 09:26:00 Test Item Value Reference Range Interpretation Comments RBC (test code = RBC) 3.26 4.20-5.40 [facility] CenterGttvlddOWQSNWYIHN9208-14-69 09:26:00 Test Item Value Reference Range Interpretation Comments Hct (test code = Hct) 30.0 36.0-48.0 [facility] CenterMmqneeiMHDRJCWFYD1257-21-37 09:26:00 Test Item Value Reference Range Interpretation Comments MCV (test code = MCV) 92.3 80.0-98.0 [facility] CenterQnpywbjQWNLMHPAQO3136-05-64 09:26:00 Test Item Value Reference Range Interpretation Comments MCH (test code = MCH) 31.8 pg 27.0-31.0 [facility] CenterNlcatsyVPRVBQDWXW9502-67-61 09:26:00 Test Item Value Reference Range Interpretation Comments MCHC (test code = MCHC) 34.5 32.0-36.0 [facility] BANK AUVYGNP9125-58-07 18:16:00 Test Item Value Reference Range Interpretation Comments ABO/Rh (test code = ABO/Rh) O POS [facility] BANK QWEGBGZ6960-49-31 18:16:00 Test Item Value Reference Range Interpretation Comments Antibody Scrn (test Negative (02/22/17 code = Antibody Scrn) 1:16 PM) [facility]yxjwonPUDQXJJLABHN2983-15-15 18:16:00 Test Item Value Reference Range Interpretation Comments AGAP (test code = AGAP) 14.8 10.0-20.0 [facility] HospitalGvnhrkjHBHFSNMBAFJF0658-32-11 18:16:00 Test Item Value Reference Range Interpretation Comments eGFR (test code = eGFR) 41 [facility] HospitalOimmfusCFXJHCQYODMJ2518-71-31 18:16:00 Test Item Value Reference Range Interpretation Comments BUN (test code = BUN) 32 7-22 [facility] HospitalWmjastwPTJWOWTFRPMF1852-06-25 18:16:00 Test Item Value Reference Range Interpretation Comments Glucose Lvl (test code = Glucose Lvl) 122 70-99 [facility] HospitalKctesveFKVCCUICRJSR7327-21-25 18:16:00 Test Item Value Reference Range Interpretation Comments Calcium Lvl (test code = Calcium Lvl) 9.3 8.5-10.5 [facility] HospitalAvtpgwiTILVKXZCYWNA3780-08-87 18:16:00 Test Item Value Reference Range Interpretation Comments Potassium Lvl (test code = Potassium 4.8 3.5-5.1 Lvl) [facility] HospitalFvinrcbVUMLDJDAISBM5655-20-85 18:16:00 Test Item Value Reference Range Interpretation Comments Sodium Lvl (test code = Sodium Lvl) 142 135-145 [facility] HospitalWkqzcpsDKZRFPZAHBOZ1294-65-96 18:16:00 Test Item Value Reference Range Interpretation Comments Creatinine Lvl (test code = Creatinine 1.30 0.50-1.40 Lvl) [facility] HospitalLlkukutKDCCIKOPSRJC6461-39-43 18:16:00 Test Item Value Reference Range Interpretation Comments CO2 (test code = CO2) 26 24-32 [facility] HospitalXrqqqkeTPDWZKHHDLZA7568-51-71 18:16:00 Test Item Value Reference Range Interpretation Comments Chloride Lvl (test code = Chloride Lvl) 106 95-109 [facility]WlodjkjTDIBNFULLL2392-36-98 18:16:00 Test Item Value Reference Range Interpretation Comments PTT (test code = PTT) 26.5 s 22.9-35.8 [facility] CenterGzgsnniJSSTWHNJGT6918-80-54 18:16:00 Test Item Value Reference Range Interpretation Comments PT (test code = PT) 13.1 s 12.0-14.7 [facility] CenterJremqbsCADVBQFHNV0627-25-05 18:16:00 Test Item Value Reference Range Interpretation Comments INR (test code = INR) 0.97 0.85-1.17 [facility] CenterPmzeapvTNOWQSWGGL5967-23-26 18:16:00 Test Item Value Reference Range Interpretation Comments RDW (test code = RDW) 13.2 11.5-14.5 [facility] CenterLdfrbecRKQDMIGGUJ5441-88-02 18:16:00 Test Item Value Reference Range Interpretation Comments MCHC (test code = MCHC) 34.5 32.0-36.0 [facility] CenterYuccrclZOKDCPREYK7709-43-87 18:16:00 Test Item Value Reference Range Interpretation Comments MCH (test code = MCH) 32.0 pg 27.0-31.0 [facility] CenterZciadbqLVTSGKNJUY1949-57-55 18:16:00 Test Item Value Reference Range Interpretation Comments MPV (test code = MPV) 9.1 7.4-10.4 [facility] CenterFqynscfZYXZIDUMQW7417-29-25 18:16:00 Test Item Value Reference Range Interpretation Comments Platelet (test code = Platelet) 239 133-450 [facility] CenterCayhsnhOZHCVEHLFM5806-48-25 18:16:00 Test Item Value Reference Range Interpretation Comments WBC (test code = WBC) 8.5 3.7-10.4 [facility] CenterDupvkgpFMAONDIIFL4775-25-17 18:16:00 Test Item Value Reference Range Interpretation Comments RBC (test code = RBC) 4.70 4.20-5.40 [facility] CenterKlqsbluRLBELWPJRA8012-65-00 18:16:00 Test Item Value Reference Range Interpretation Comments Hgb (test code = Hgb) 15.0 12.0-16.0 [facility] CenterCbevrkvHQQFRWOZGI7746-65-84 18:16:00 Test Item Value Reference Range Interpretation Comments MCV (test code = MCV) 92.7 80.0-98.0 [facility] CenterRcgkslnTAIDIMFYYK9596-52-41 18:16:00 Test Item Value Reference Range Interpretation Comments Hct (test code = Hct) 43.6 36.0-48.0 [facility] CenterWfaeilnQYSPKMQPPD1778-79-27 18:16:00 Test Item Value Reference Range Interpretation Comments Segs-Bands # (test code = Segs-Bands #) 5.8 1.5-8.1 [facility] CenterThihultPQCEFWMBBM2510-00-47 18:16:00 Test Item Value Reference Range Interpretation Comments Lymphocytes # (test code = Lymphocytes 2.2 1.0-5.5 #) [facility] CenterLzqbcizCVCCBOSTUK3602-97-05 18:16:00 Test Item Value Reference Range Interpretation Comments Monocytes # (test code 0.4 See_Comment [Aut omated message] The = Monocytes #) system which generated this result tra nsmitted reference range : <=0.8. The reference r bill was not used to int erpret this result as normal/abnormal . [facility] CenterQtphuwtVTRTALAGQO3411-77-52 18:16:00 Test Item Value Reference Range Interpretation Comments Eosinophils # (test code 0.1 See_Comment [A utomated message] The = Eosinophils #) system [facility] h generated this result tra nsmitted reference range : <=0.5. The reference r bill was not used to int erpret this result as normal/abnormal . [facility] CenterKoxpvcmNYTZLFJWMX7088-00-73 18:16:00 Test Item Value Reference Range Interpretation Comments Basophils (test code = 0.5 See_Comment [Aut omated message] The Basophils) system which ge nerated this result tra nsmitted reference range : <=1.0. The reference r bill was not used to int erpret this result as normal/abnormal . [facility] CenterQbyejxrQQQLXKQJSW3863-00-97 18:16:00 Test Item Value Reference Range Interpretation Comments Monocytes (test code = Monocytes) 5.2 2.0-12.0 [facility] CenterIiboqeySMQRMGNWCE9846-21-03 18:16:00 Test Item Value Reference Range Interpretation Comments Lymphocytes (test code = Lymphocytes) 25.9 20.0-40.0 [facility] CenterPhswvqlOYMJADGGKE2574-48-27 18:16:00 Test Item Value Reference Range Interpretation Comments Eosinophils (test code = 0.9 See_Comment [A utomated message] The Eosinophils) system which ge nerated this result tra nsmitted reference range : <=4.0. The reference r bill was not used to int erpret this result as normal/abnormal . [facility] CenterAaehdmnCNRKZUVPOR3556-33-38 18:16:00 Test Item Value Reference Range Interpretation Comments Segs (test code = Segs) 67.5 45.0-75.[address] [facility] POQXRXB6816-31-67 18:16:00 Test Item Value Reference Range Interpretation Comments ABO/Rh (test code = ABO/Rh) O POS [facility] GTVYTZJ8871-17-61 18:16:00 Test Item Value Reference Range Interpretation Comments Antibody Scrn (test Negative (02/22/17 code = Antibody Scrn) 1:16 PM) [facility]TywdakbSBZGOFGCVKQY9887-17-14 18:16:00 Test Item Value Reference Range Interpretation Comments AGAP (test code = AGAP) 14.8 10.0-20.0 [facility] HospitalQxtlcflXITVJIWGZKXC0608-69-67 18:16:00 Test Item Value Reference Range Interpretation Comments eGFR (test code = eGFR) 41 [facility] HospitalHzpsbnqFAESUAKVACAK2700-21-54 18:16:00 Test Item Value Reference Range Interpretation Comments BUN (test code = BUN) 32 7-22 [facility] HospitalLrkurnuRQFRMASFHMNS7944-84-78 18:16:00 Test Item Value Reference Range Interpretation Comments Glucose Lvl (test code = Glucose Lvl) 122 70-99 [facility] HospitalIdnwjscLQVZFUBYXTJE1875-74-06 18:16:00 Test Item Value Reference Range Interpretation Comments Calcium Lvl (test code = Calcium Lvl) 9.3 8.5-10.5 [facility] HospitalPjmdmgqCZVXXPKIMDDA9455-28-33 18:16:00 Test Item Value Reference Range Interpretation Comments Potassium Lvl (test code = Potassium 4.8 3.5-5.1 Lvl) [facility] HospitalVywjuyoQIBGMAKQWESY3071-06-45 18:16:00 Test Item Value Reference Range Interpretation Comments Sodium Lvl (test code = Sodium Lvl) 142 135-145 [facility] HospitalPvavwsxBUYFBQRPAFRG0408-65-12 18:16:00 Test Item Value Reference Range Interpretation Comments Creatinine Lvl (test code = Creatinine 1.30 0.50-1.40 Lvl) [facility] HospitalNnqdgpuJXOZVJZLIHAF3113-39-43 18:16:00 Test Item Value Reference Range Interpretation Comments CO2 (test code = CO2) 26 24-32 [facility] HospitalGclmuhpOIMEEMUGZAPU6197-78-99 18:16:00 Test Item Value Reference Range Interpretation Comments Chloride Lvl (test code = Chloride Lvl) 106 95-109 [facility] CenterBirthhkZAIEWMWUIV7418-58-59 18:16:00 Test Item Value Reference Range Interpretation Comments PTT (test code = PTT) 26.5 s 22.9-35.8 [facility] CenterImukzkjRUVKUWBPLG0242-88-55 18:16:00 Test Item Value Reference Range Interpretation Comments PT (test code = PT) 13.1 s 12.0-14.7 [facility] CenterZlgmwpyGHJGTAOIPD2955-97-92 18:16:00 Test Item Value Reference Range Interpretation Comments INR (test code = INR) 0.97 0.85-1.17 [facility] CenterVwhyoqcZELTDOGMQP5734-96-61 18:16:00 Test Item Value Reference Range Interpretation Comments RDW (test code = RDW) 13.2 11.5-14.5 [facility] CenterIcywwkqZOGVIQBOZU4240-65-64 18:16:00 Test Item Value Reference Range Interpretation Comments MCHC (test code = MCHC) 34.5 32.0-36.0 [facility] CenterRqdgbedSCOTGMUWLX1980-18-33 18:16:00 Test Item Value Reference Range Interpretation Comments MCH (test code = MCH) 32.0 pg 27.0-31.0 [facility] CenterHjhsmzvEKBJIJVCBH1592-07-74 18:16:00 Test Item Value Reference Range Interpretation Comments MPV (test code = MPV) 9.1 7.4-10.4 [facility] CenterGqcrhfrXSASEFAYEJ8665-61-20 18:16:00 Test Item Value Reference Range Interpretation Comments Platelet (test code = Platelet) 239 133-450 [facility] CenterYidyugsXAHHNTWKRH5827-48-93 18:16:00 Test Item Value Reference Range Interpretation Comments WBC (test code = WBC) 8.5 3.7-10.4 [facility] CenterSqwgmlaTUZTFDJTPI2903-05-24 18:16:00 Test Item Value Reference Range Interpretation Comments RBC (test code = RBC) 4.70 4.20-5.40 [facility] CenterOshsflxXBFOXBQPND1566-93-68 18:16:00 Test Item Value Reference Range Interpretation Comments Hgb (test code = Hgb) 15.0 12.0-16.0 [facility] CenterOfnlkmdOTILFNMCQO3620-63-49 18:16:00 Test Item Value Reference Range Interpretation Comments MCV (test code = MCV) 92.7 80.0-98.0 [place] 025737-10-12 18:16:00 Test Item Value Reference Range Interpretation Comments Hct (test code = Hct) 43.6 36.0-48.0 [facility] CenterJtvtcucXCMAWXIBCN8106-33-46 18:16:00 Test Item Value Reference Range Interpretation Comments Segs-Bands # (test code = Segs-Bands #) 5.8 1.5-8.1 [facility] CenterTdxbtwfOQTNCCQHFA9594-55-89 18:16:00 Test Item Value Reference Range Interpretation Comments Lymphocytes # (test code = Lymphocytes 2.2 1.0-5.5 #) [facility] CenterJqicnbsQKGRCBQNIX4127-75-07 18:16:00 Test Item Value Reference Range Interpretation Comments Monocytes # (test code 0.4 See_Comment [Aut omated message] The = Monocytes #) system which generated this result tra nsmitted reference range : <=0.8. The reference r bill was not used to int erpret this result as normal/abnormal . [facility] CenterFdawpkvNEMAIYALSF5488-10-14 18:16:00 Test Item Value Reference Range Interpretation Comments Eosinophils # (test code 0.1 See_Comment [A utomated message] The = Eosinophils #) system whic h generated this result tra nsmitted reference range : <=0.5. The reference r bill was not used to int erpret this result as normal/abnormal . [facility] CenterBntbqolETVSHSLIZJ7593-12-50 18:16:00 Test Item Value Reference Range Interpretation Comments Basophils (test code = 0.5 See_Comment [Aut omated message] The Basophils) system which ge nerated this result tra nsmitted reference range : <=1.0. The reference r bill was not used to int erpret this result as normal/abnormal . [facility] CenterMszbesbQUJKNXHEPP5341-97-40 18:16:00 Test Item Value Reference Range Interpretation Comments Monocytes (test code = Monocytes) 5.2 2.0-12.0 [facility] CenterGvulojjCZXSRRBPYC2198-24-23 18:16:00 Test Item Value Reference Range Interpretation Comments Lymphocytes (test code = Lymphocytes) 25.9 20.0-40.0 [facility] CenterLohqhbnINMLHWCKYX4438-58-17 18:16:00 Test Item Value Reference Range Interpretation Comments Eosinophils (test code = 0.9 See_Comment [A utomated message] The Eosinophils) system which ge nerated this result tra nsmitted reference range : <=4.0. The reference r bill was not used to int erpret this result as normal/abnormal . [facility]WrooyduHZOFCYKSUG8759-61-14 18:16:00 Test Item Value Reference Range Interpretation Comments Segs (test code = Segs) 67.5 45.0-75.[address] [facility] KLUYTCW4516-90-51 18:16:00 Test Item Value Reference Range Interpretation Comments ABO/Rh (test code = ABO/Rh) O POS [facility] VNGXUBJ0051-96-41 18:16:00 Test Item Value Reference Range Interpretation Comments Antibody Scrn (test Negative (02/22/17 code = Antibody Scrn) 1:16 PM) [facility] HospitalQopqxyvLFMTVESQOPQZ4487-08-45 18:16:00 Test Item Value Reference Range Interpretation Comments AGAP (test code = AGAP) 14.8 10.0-20.0 [facility] HospitalTtnhqcrBMRWBJWFFNRN3218-41-52 18:16:00 Test Item Value Reference Range Interpretation Comments eGFR (test code = eGFR) 41 [facility] HospitalVreerzvZCILRHGMLKFD9276-23-39 18:16:00 Test Item Value Reference Range Interpretation Comments BUN (test code = BUN) 32 7-22 [facility] HospitalJwfugkqKEXJWNGTAMHT0742-64-37 18:16:00 Test Item Value Reference Range Interpretation Comments Glucose Lvl (test code = Glucose Lvl) 122 70-99 [facility] HospitalZxamcnfPARALZSBQWUZ1304-33-87 18:16:00 Test Item Value Reference Range Interpretation Comments Calcium Lvl (test code = Calcium Lvl) 9.3 8.5-10.5 [facility] HospitalLzpoxmfARWSUYWEDAFG1293-66-96 18:16:00 Test Item Value Reference Range Interpretation Comments Potassium Lvl (test code = Potassium 4.8 3.5-5.1 Lvl) [facility] HospitalXidtjytHLAXPWRLTYLX5891-50-47 18:16:00 Test Item Value Reference Range Interpretation Comments Sodium Lvl (test code = Sodium Lvl) 142 135-145 [facility] HospitalEwrhpbwXRCVFFVPJGDH4467-64-25 18:16:00 Test Item Value Reference Range Interpretation Comments Creatinine Lvl (test code = Creatinine 1.30 0.50-1.40 Lvl) [facility] HospitalDkjbvoyONAMWUIVLBUR8553-50-58 18:16:00 Test Item Value Reference Range Interpretation Comments CO2 (test code = CO2) 26 24-32 [facility]FdabeecMDEPOHMEMUTV0268-51-88 18:16:00 Test Item Value Reference Range Interpretation Comments Chloride Lvl (test code = Chloride Lvl) 106 95-109 [facility] CenterHpllrjmPQJLIJTFXH8487-81-44 18:16:00 Test Item Value Reference Range Interpretation Comments PTT (test code = PTT) 26.5 s 22.9-35.8 [facility] CenterFakjdoxNBLAGTFVDQ5899-14-93 18:16:00 Test Item Value Reference Range Interpretation Comments PT (test code = PT) 13.1 s 12.0-14.7 [facility] CenterKtjnuchIWLRFXGURS6689-95-32 18:16:00 Test Item Value Reference Range Interpretation Comments INR (test code = INR) 0.97 0.85-1.17 [facility] CenterVxoswdzFDCNFJVTAN5398-66-23 18:16:00 Test Item Value Reference Range Interpretation Comments RDW (test code = RDW) 13.2 11.5-14.5 [facility] CenterGwkixicJYHPVOFCHD3160-28-25 18:16:00 Test Item Value Reference Range Interpretation Comments MCHC (test code = MCHC) 34.5 32.0-36.0 [facility] CenterCzfagwaBSZSEOWIGK3846-56-31 18:16:00 Test Item Value Reference Range Interpretation Comments MCH (test code = MCH) 32.0 pg 27.0-31.0 [facility] CenterXffkxhdEXXQGEEKAC5922-14-32 18:16:00 Test Item Value Reference Range Interpretation Comments MPV (test code = MPV) 9.1 7.4-10.4 [facility] CenterLhfwmlvGYBSZPBTUI6608-71-26 18:16:00 Test Item Value Reference Range Interpretation Comments Platelet (test code = Platelet) 239 133-450 [facility] CenterXxzkuzaGOUQJGGTAV2263-21-60 18:16:00 Test Item Value Reference Range Interpretation Comments WBC (test code = WBC) 8.5 3.7-10.4 [facility] CenterBnobploMPIDQMFVGP5196-68-83 18:16:00 Test Item Value Reference Range Interpretation Comments RBC (test code = RBC) 4.70 4.20-5.40 [facility] CenterKbaeiybUOUSAHHTJK2823-87-70 18:16:00 Test Item Value Reference Range Interpretation Comments Hgb (test code = Hgb) 15.0 12.0-16.0 [facility] CenterRkciudcAJCAAPUWBR7698-02-03 18:16:00 Test Item Value Reference Range Interpretation Comments MCV (test code = MCV) 92.7 80.0-98.0 [facility] CenterJuadvceKMPMSSIXXB7500-21-61 18:16:00 Test Item Value Reference Range Interpretation Comments Hct (test code = Hct) 43.6 36.0-48.0 [facility] CenterGzoxareQKLBHOITNS8534-51-35 18:16:00 Test Item Value Reference Range Interpretation Comments Segs-Bands # (test code = Segs-Bands #) 5.8 1.5-8.1 [facility] CenterLexuxzpLYGUAXHUKC0460-20-30 18:16:00 Test Item Value Reference Range Interpretation Comments Lymphocytes # (test code = Lymphocytes 2.2 1.0-5.5 #) [facility] CenterHtydsazQMMKDZTHEO8090-15-44 18:16:00 Test Item Value Reference Range Interpretation Comments Monocytes # (test code 0.4 See_Comment [Aut omated message] The = Monocytes #) system which generated this result tra nsmitted reference range : <=0.8. The reference r bill was not used to int erpret this result as normal/abnormal . [facility] CenterVbfdhevGRBBLYLFME5637-21-07 18:16:00 Test Item Value Reference Range Interpretation Comments Eosinophils # (test code 0.1 See_Comment [A utomated message] The = Eosinophils #) system whic h generated this result tra nsmitted reference range : <=0.5. The reference r bill was not used to int erpret this result as normal/abnormal . [facility] CenterEgvsioyDJOTNKLSBI0387-94-56 18:16:00 Test Item Value Reference Range Interpretation Comments Basophils (test code = 0.5 See_Comment [Aut omated message] The Basophils) system which ge nerated this result tra nsmitted reference range : <=1.0. The reference r bill was not used to int erpret this result as normal/abnormal . [facility] CenterPplfdzdZQJOWNOBHA9335-24-03 18:16:00 Test Item Value Reference Range Interpretation Comments Monocytes (test code = Monocytes) 5.2 2.0-12.0 [facility] CenterXluetxqVJZWBGEHJP4819-93-49 18:16:00 Test Item Value Reference Range Interpretation Comments Lymphocytes (test code = Lymphocytes) 25.9 20.0-40.0 [facility] CenterPeiztpoSFLIDJNDJK7371-63-21 18:16:00 Test Item Value Reference Range Interpretation Comments Eosinophils (test code = 0.9 See_Comment [A utomated message] The Eosinophils) system which ge nerated this result tra nsmitted reference range : <=4.0. The reference r bill was not used to int erpret this result as normal/abnormal . [facility] CenterPtsymmcLBGWYMFRRW8153-07-26 18:16:00 Test Item Value Reference Range Interpretation Comments Segs (test code = Segs) 67.5 45.0-75.0 [facility] YSZLIEH6679-29-08 18:16:00 Test Item Value Reference Range Interpretation Comments ABO/Rh (test code = ABO/Rh) O POS [facility] HUSPAXB7067-57-30 18:16:00 Test Item Value Reference Range Interpretation Comments Antibody Scrn (test Negative (02/22/17 code = Antibody Scrn) 1:16 PM) [facility] HospitalRinqkffXLUYKLMOLBAM7089-03-77 18:16:00 Test Item Value Reference Range Interpretation Comments AGAP (test code = AGAP) 14.8 10.0-20.0 [facility] HospitalNgybpizTVDUZKWSLJVI2419-15-32 18:16:00 Test Item Value Reference Range Interpretation Comments eGFR (test code = eGFR) 41 [facility] HospitalOhytgtiRELEEPNXETNS9921-21-37 18:16:00 Test Item Value Reference Range Interpretation Comments BUN (test code = BUN) 32 7-22 [facility] HospitalDtsxqumUTSWRXLSQHDS6715-36-54 18:16:00 Test Item Value Reference Range Interpretation Comments Glucose Lvl (test code = Glucose Lvl) 122 70-99 [facility] HospitalOmetjnqGCXHQKEHYCXV7379-55-39 18:16:00 Test Item Value Reference Range Interpretation Comments Calcium Lvl (test code = Calcium Lvl) 9.3 8.5-10.5 [facility] HospitalCcmsnckPDBNMDBGVFBU3151-30-11 18:16:00 Test Item Value Reference Range Interpretation Comments Potassium Lvl (test code = Potassium 4.8 3.5-5.1 Lvl) [facility] HospitalYjwqkasVNJKHOJJOOQH7932-35-77 18:16:00 Test Item Value Reference Range Interpretation Comments Sodium Lvl (test code = Sodium Lvl) 142 135-145 [facility] HospitalQtiwbliTXDWXKORLBTF3003-59-36 18:16:00 Test Item Value Reference Range Interpretation Comments Creatinine Lvl (test code = Creatinine 1.30 0.50-1.40 Lvl) [facility] HospitalSwietliMAVXWOOCJJSY1098-09-48 18:16:00 Test Item Value Reference Range Interpretation Comments CO2 (test code = CO2) 26 24-32 [facility] HospitalVhwnvvcWSKBUPLAFLEM3246-08-87 18:16:00 Test Item Value Reference Range Interpretation Comments Chloride Lvl (test code = Chloride Lvl) 106 95-109 [facility] CenterOrmilzbELKJEOIZSC2424-89-12 18:16:00 Test Item Value Reference Range Interpretation Comments PTT (test code = PTT) 26.5 s 22.9-35.8 [facility] CenterLpsfrnkBKADGFYYXZ8166-80-07 18:16:00 Test Item Value Reference Range Interpretation Comments PT (test code = PT) 13.1 s 12.0-14.7 [facility] CenterWvvwezfVDSQFREMMN0816-91-27 18:16:00 Test Item Value Reference Range Interpretation Comments INR (test code = INR) 0.97 0.85-1.17 [facility] CenterYsqbtuaJKKYTPYLEM9896-38-27 18:16:00 Test Item Value Reference Range Interpretation Comments RDW (test code = RDW) 13.2 11.5-14.5 [facility] CenterOayjsinFOOQXPQAAV0579-31-73 18:16:00 Test Item Value Reference Range Interpretation Comments MCHC (test code = MCHC) 34.5 32.0-36.0 [facility] CenterJljdyqdDRTVSYKDJU4376-20-58 18:16:00 Test Item Value Reference Range Interpretation Comments MCH (test code = MCH) 32.0 pg 27.0-31.0 [facility] CenterLwmlfzyFNXOICEVVL2478-48-08 18:16:00 Test Item Value Reference Range Interpretation Comments MPV (test code = MPV) 9.1 7.4-10.4 [facility] CenterWgvnqgzISXKGOEYCH7204-22-18 18:16:00 Test Item Value Reference Range Interpretation Comments Platelet (test code = Platelet) 239 133-450 [facility] CenterXpajgjhZQDALSHRSV5216-99-47 18:16:00 Test Item Value Reference Range Interpretation Comments WBC (test code = WBC) 8.5 3.7-10.4 [facility] CenterBxljupuTNWPDHHQJN0246-14-01 18:16:00 Test Item Value Reference Range Interpretation Comments RBC (test code = RBC) 4.70 4.20-5.40 [facility] CenterBkuqojlENKFTXNAYM3840-84-41 18:16:00 Test Item Value Reference Range Interpretation Comments Hgb (test code = Hgb) 15.0 12.0-16.0 [facility] CenterUsuxcdwYNTURXKNOV0067-85-08 18:16:00 Test Item Value Reference Range Interpretation Comments MCV (test code = MCV) 92.7 80.0-98.0 [facility] CenterYafukdcHPPQANVYBU2766-63-78 18:16:00 Test Item Value Reference Range Interpretation Comments Hct (test code = Hct) 43.6 36.0-48.0 [facility] CenterOwcidbdHJKGTKEUTV6662-71-01 18:16:00 Test Item Value Reference Range Interpretation Comments Segs-Bands # (test code = Segs-Bands #) 5.8 1.5-8.1 [place] [address]-10-12 18:16:00 Test Item Value Reference Range Interpretation Comments Lymphocytes # (test code = Lymphocytes 2.2 1.0-5.5 #) [facility] CenterXwexprzMZGQRASYOO9387-68-05 18:16:00 Test Item Value Reference Range Interpretation Comments Monocytes # (test code 0.4 See_Comment [Aut omated message] The = Monocytes #) system which generated this result tra nsmitted reference range : <=0.8. The reference r bill was not used to int erpret this result as normal/abnormal . [facility] CenterHgefdesAVTZADYKYO0854-56-99 18:16:00 Test Item Value Reference Range Interpretation Comments Eosinophils # (test code 0.1 See_Comment [A utomated message] The = Eosinophils #) system whic h generated this result tra nsmitted reference range : <=0.5. The reference r bill was not used to int erpret this result as normal/abnormal . [facility] CenterSbdlgvlEZBFQZEDGD7930-96-35 18:16:00 Test Item Value Reference Range Interpretation Comments Basophils (test code = 0.5 See_Comment [Aut omated message] The Basophils) system which ge nerated this result tra nsmitted reference range : <=1.0. The reference r bill was not used to int erpret this result as normal/abnormal . [facility] CenterNdnavraVSLVCBKQRN6243-82-26 18:16:00 Test Item Value Reference Range Interpretation Comments Monocytes (test code = Monocytes) 5.2 2.0-12.0 [facility]AzqjzgtUGMTNQCSUJ1389-59-51 18:16:00 Test Item Value Reference Range Interpretation Comments Lymphocytes (test code = Lymphocytes) 25.9 20.0-40.0 [facility]IajgjjsKCMBLVWNMI9706-29-84 18:16:00 Test Item Value Reference Range Interpretation Comments Eosinophils (test code = 0.9 See_Comment [A utomated message] The Eosinophils) system which ge nerated this result tra nsmitted reference range : <=4.0. The reference r bill was not used to int erpret this result as normal/abnormal . [facility]aleNhkewofMSXARDNHVC4884-23-28 18:16:00 Test Item Value Reference Range Interpretation Comments Segs (test code = Segs) 67.5 45.0-75.0 [facility] PUBVSBM5453-48-24 17:57:00 Test Item Value Reference Range Interpretation Comments RBC product (test code Product available = RBC product) (02/22/17 12:57 PM) [facility] [employer] GPPIZFM6075-45-06 17:57:00 Test Item Value Reference Range Interpretation Comments RBC product (test code Product available = RBC product) (02/22/17 12:57 PM) [facility] [employer] QDQSIWE7982-02-90 17:57:00 Test Item Value Reference Range Interpretation Comments RBC product (test code Product available = RBC product) (02/22/17 12:57 PM) [facility] [employer] [id number] 17:57:00 Test Item Value Reference Range Interpretation Comments RBC product (test code Product available = RBC product) (02/22/17 12:57 PM) [facility] [employer] [id number] 17:01:00 Test Item Value Reference Range Interpretation Comments B/C Ratio (test code = B/C Ratio) 32 6-25 [facility] [employer]2017-02-06 17:01:00 Test Item Value Reference Range Interpretation Comments Globulin (test code = Globulin) 4.1 2.7-4.2 [facility] [employer] [id number] 17:01:00 Test Item Value Reference Range Interpretation Comments A/G Ratio (test code = A/G Ratio) 1.0 0.7-1.6 [facility] [employer] [id number] 17:01:00 Test Item Value Reference Range Interpretation Comments AGAP (test code = AGAP) 13.0 10.0-20.0 [facility]2017-02-06 17:01:00 Test Item Value Reference Range Interpretation Comments eGFR (test code = eGFR) 50 [facility]2017-02-06 17:01:00 Test Item Value Reference Range Interpretation Comments Albumin Lvl (test code = Albumin Lvl) 4.1 3.5-5.0 [facility]2017-02-06 17:01:00 Test Item Value Reference Range Interpretation Comments AST (test code = AST) 11 See_Comment [Auto mated message] The system which ge nerated this result transmit son reference range : <=37. The reference range was not used to interpr et this result as nikki l/abnormal. [facility]2017-02-06 17:01:00 Test Item Value Reference Range Interpretation Comments ALT (test code = ALT) 23 See_Comment [Auto mated message] The system which ge nerated this result transmit son reference range : <=65. The reference range was not used to interpr et this result as nikki l/abnormal. [facility]2017-02-06 17:01:00 Test Item Value Reference Range Interpretation Comments Total Protein (test code = Total 8.2 6.4-8.4 Protein) [facility]2017-02-06 17:01:00 Test Item Value Reference Range Interpretation Comments Alk Phos (test code = Alk Phos) 77 39-136 [facility]2017-02-06 17:01:00 Test Item Value Reference Range Interpretation Comments Bili Total (test code = Bili Total) 0.5 0.2-1.3 [facility]2017-02-06 17:01:00 Test Item Value Reference Range Interpretation Comments Chloride Lvl (test code = Chloride Lvl) 109 95-109 [facility]2017-02-06 17:01:00 Test Item Value Reference Range Interpretation Comments CO2 (test code = CO2) 23 24-32 [facility]2017-02-06 17:01:00 Test Item Value Reference Range Interpretation Comments Calcium Lvl (test code = Calcium Lvl) 8.9 8.5-10.5 [place] [id number] 17:01:00 Test Item Value Reference Range Interpretation Comments Glucose Lvl (test code = Glucose Lvl) 93 70-99 [facility]2017-02-06 17:01:00 Test Item Value Reference Range Interpretation Comments Potassium Lvl (test code = Potassium 4.0 3.5-5.1 Lvl) [facility]2017-02-06 17:01:00 Test Item Value Reference Range Interpretation Comments Sodium Lvl (test code = Sodium Lvl) 141 135-145 [facility]2017-02-06 17:01:00 Test Item Value Reference Range Interpretation Comments BUN (test code = BUN) 35 7-22 [facility]2017-02-06 17:01:00 Test Item Value Reference Range Interpretation Comments Creatinine Lvl (test code = Creatinine 1.10 0.50-1.40 Lvl) [facility]OzafineWOBMYEYECW8794-56-91 17:01:00 Test Item Value Reference Range Interpretation Comments RBC (test code = RBC) 4.54 4.20-5.40 [facility] CenterWighbzcQATASMODWF6378-37-70 17:01:00 Test Item Value Reference Range Interpretation Comments Hgb (test code = Hgb) 14.3 12.0-16.0 [facility] CenterPoifnavQPOOYJAAUP3825-95-16 17:01:00 Test Item Value Reference Range Interpretation Comments WBC (test code = WBC) 8.5 3.7-10.4 [place] 025737-02-06 17:01:00 Test Item Value Reference Range Interpretation Comments MPV (test code = MPV) 9.2 7.4-10.4 [place] 025737-02-06 17:01:00 Test Item Value Reference Range Interpretation Comments MCV (test code = MCV) 92.6 80.0-98.0 [facility] CenterLygsyjkAQTLQGTJNW2881-19-60 17:01:00 Test Item Value Reference Range Interpretation Comments Hct (test code = Hct) 42.1 36.0-48.0 [facility] CenterNnpsaqbNZWHYYGVGW6578-71-01 17:01:00 Test Item Value Reference Range Interpretation Comments RDW (test code = RDW) 13.6 11.5-14.5 [facility] CenterDfnpdwtJGNDBRVAJW6760-57-34 17:01:00 Test Item Value Reference Range Interpretation Comments MCH (test code = MCH) 31.5 pg 27.0-31.0 [facility] CenterZjyvclrGIORUGQMMJ8219-54-15 17:01:00 Test Item Value Reference Range Interpretation Comments Platelet (test code = Platelet) 216 133-450 [facility] CenterLhvolchQADWWFQXCG2099-17-55 17:01:00 Test Item Value Reference Range Interpretation Comments MCHC (test code = MCHC) 34.1 32.0-36.0 [facility] CenterVfofsbsQXOPXPTJOO9822-64-47 17:01:00 Test Item Value Reference Range Interpretation Comments Basophils (test code = 0.6 See_Comment [Aut omated message] The Basophils) system which ge nerated this result tra nsmitted reference range : <=1.0. The reference r bill was not used to int erpret this result as normal/abnormal . [facility] CenterEhxnjxuNWHVQHTHYW1989-04-16 17:01:00 Test Item Value Reference Range Interpretation Comments Eosinophils (test code = 0.9 See_Comment [A utomated message] The Eosinophils) system which ge nerated this result tra nsmitted reference range : <=4.0. The reference r bill was not used to int erpret this result as normal/abnormal . [facility] CenterGkapgyaMDZFIUHAOI6609-42-62 17:01:00 Test Item Value Reference Range Interpretation Comments Lymphocytes (test code = Lymphocytes) 23.2 20.0-40.0 [facility] CenterRuwxgjjDHQDZHTUMB7824-17-98 17:01:00 Test Item Value Reference Range Interpretation Comments Segs (test code = Segs) 69.1 45.0-75.0 [facility] CenterCdgkquyAHARWMOXPX4157-30-78 17:01:00 Test Item Value Reference Range Interpretation Comments Lymphocytes # (test code = Lymphocytes 2.0 1.0-5.5 #) [facility] CenterYyhkfvlEHQIUZBQHD7669-38-14 17:01:00 Test Item Value Reference Range Interpretation Comments Basophils # (test code 0.1 See_Comment [Aut omated message] The = Basophils #) system which generated this result tra nsmitted reference range : <=0.2. The reference r bill was not used to int erpret this result as normal/abnormal . [facility] CenterRkuxooeBGNEPCUBYJ1500-30-02 17:01:00 Test Item Value Reference Range Interpretation Comments Eosinophils # (test code 0.1 See_Comment [A utomated message] The = Eosinophils #) system whic h generated this result tra nsmitted reference range : <=0.5. The reference r bill was not used to int erpret this result as normal/abnormal . [facility] CenterSpfeutwCZHWRIEDAU3969-21-16 17:01:00 Test Item Value Reference Range Interpretation Comments Monocytes (test code = Monocytes) 6.2 2.0-12.0 [facility] CenterAgftfdoYLHAQTOKHY9689-43-19 17:01:00 Test Item Value Reference Range Interpretation Comments Segs-Bands # (test code = Segs-Bands #) 5.9 1.5-8.1 [facility] CenterGwykuecTUFKQRAGYR3128-81-16 17:01:00 Test Item Value Reference Range Interpretation Comments Monocytes # (test code 0.5 See_Comment [Aut omated message] The = Monocytes #) system which generated this result tra nsmitted reference range : <=0.8. The reference r bill was not used to int erpret this result as normal/abnormal . [facility]2017-02-06 17:01:00 Test Item Value Reference Range Interpretation Comments B/C Ratio (test code = B/C Ratio) 32 6-25 [facility]2017-02-06 17:01:00 Test Item Value Reference Range Interpretation Comments Globulin (test code = Globulin) 4.1 2.7-4.2 [facility]2017-02-06 17:01:00 Test Item Value Reference Range Interpretation Comments A/G Ratio (test code = A/G Ratio) 1.0 0.7-1.6 [facility]2017-02-06 17:01:00 Test Item Value Reference Range Interpretation Comments AGAP (test code = AGAP) 13.0 10.0-20.0 [facility] BrookSuagi.comATRIUM HE[facility] WA[facility] BAP[facility] MED[facility] CENTEREAUMR0585-15-91 17:01:00 Test Item Value Reference Range Interpretation Comments eGFR (test code = eGFR) 50 [facility]2017-02-06 17:01:00 Test Item Value Reference Range Interpretation Comments Albumin Lvl (test code = Albumin Lvl) 4.1 3.5-5.0 [facility]2017-02-06 17:01:00 Test Item Value Reference Range Interpretation Comments AST (test code = AST) 11 See_Comment [Auto mated message] The system which ge nerated this result transmit son reference range : <=37. The reference range was not used to interpr et this result as nikki l/abnormal. [facility]2017-02-06 17:01:00 Test Item Value Reference Range Interpretation Comments ALT (test code = ALT) 23 See_Comment [Auto mated message] The system which ge nerated this result transmit son reference range : <=65. The reference range was not used to interpr et this result as nikki l/abnormal. [facility]2017-02-06 17:01:00 Test Item Value Reference Range Interpretation Comments Total Protein (test code = Total 8.2 6.4-8.4 Protein) [facility]2017-02-06 17:01:00 Test Item Value Reference Range Interpretation Comments Alk Phos (test code = Alk Phos) 77 39-136 [facility]2017-02-06 17:01:00 Test Item Value Reference Range Interpretation Comments Bili Total (test code = Bili Total) 0.5 0.2-1.3 [facility]2017-02-06 17:01:00 Test Item Value Reference Range Interpretation Comments Chloride Lvl (test code = Chloride Lvl) 109 95-109 [facility]2017-02-06 17:01:00 Test Item Value Reference Range Interpretation Comments CO2 (test code = CO2) 23 24-32 [facility]2017-02-06 17:01:00 Test Item Value Reference Range Interpretation Comments Calcium Lvl (test code = Calcium Lvl) 8.9 8.5-10.5 [facility]2017-02-06 17:01:00 Test Item Value Reference Range Interpretation Comments Glucose Lvl (test code = Glucose Lvl) 93 70-99 [facility]2017-02-06 17:01:00 Test Item Value Reference Range Interpretation Comments Potassium Lvl (test code = Potassium 4.0 3.5-5.1 Lvl) [facility]2017-02-06 17:01:00 Test Item Value Reference Range Interpretation Comments Sodium Lvl (test code = Sodium Lvl) 141 135-145 [facility]2017-02-06 17:01:00 Test Item Value Reference Range Interpretation Comments BUN (test code = BUN) 35 7-22 [facility]2017-02-06 17:01:00 Test Item Value Reference Range Interpretation Comments Creatinine Lvl (test code = Creatinine 1.10 0.50-1.40 Lvl) [facility] CenterDnvnvmaBXRJCXHSQV5361-66-36 17:01:00 Test Item Value Reference Range Interpretation Comments RBC (test code = RBC) 4.54 4.20-5.40 [facility] CenterLaahtmvVBJMNDSVTK9517-50-77 17:01:00 Test Item Value Reference Range Interpretation Comments Hgb (test code = Hgb) 14.3 12.0-16.0 [facility] CenterDovzylgTCWTLOLTXK1155-59-28 17:01:00 Test Item Value Reference Range Interpretation Comments WBC (test code = WBC) 8.5 3.7-10.4 [facility] CenterVmlpuctOTNNGYOKCP9865-25-12 17:01:00 Test Item Value Reference Range Interpretation Comments MPV (test code = MPV) 9.2 7.4-10.4 [facility] CenterYmkhjhoWBBRMOLRPQ4756-53-21 17:01:00 Test Item Value Reference Range Interpretation Comments MCV (test code = MCV) 92.6 80.0-98.0 [facility] CenterAccayspDMXKNNXPVK6183-27-52 17:01:00 Test Item Value Reference Range Interpretation Comments Hct (test code = Hct) 42.1 36.0-48.0 [facility] CenterVyxudrmCJKKQNMIFC6450-66-68 17:01:00 Test Item Value Reference Range Interpretation Comments RDW (test code = RDW) 13.6 11.5-14.5 [facility] CenterYbzqgftYAOGLQWYOW8274-65-85 17:01:00 Test Item Value Reference Range Interpretation Comments MCH (test code = MCH) 31.5 pg 27.0-31.0 [facility] CenterEwnpqngSJTOJHWQLK3964-71-54 17:01:00 Test Item Value Reference Range Interpretation Comments Platelet (test code = Platelet) 216 133-450 [facility] CenterXcjggsnRBEMFRAINL1612-89-19 17:01:00 Test Item Value Reference Range Interpretation Comments MCHC (test code = MCHC) 34.1 32.0-36.0 [facility] CenterCmymggnHSTDUFRGGM1961-95-72 17:01:00 Test Item Value Reference Range Interpretation Comments Basophils (test code = 0.6 See_Comment [Aut omated message] The Basophils) system which ge nerated this result tra nsmitted reference range : <=1.0. The reference r bill was not used to int erpret this result as normal/abnormal . [facility] CenterCfkdieoSLJWGRAOMP4359-50-57 17:01:00 Test Item Value Reference Range Interpretation Comments Eosinophils (test code = 0.9 See_Comment [A utomated message] The Eosinophils) system which ge nerated this result tra nsmitted reference range : <=4.0. The reference r bill was not used to int erpret this result as normal/abnormal . [facility] CenterEwkfpcgZEZKBNYLCO3107-60-54 17:01:00 Test Item Value Reference Range Interpretation Comments Lymphocytes (test code = Lymphocytes) 23.2 20.0-40.0 [facility] CenterUokojxfOENRMXLZES0911-41-05 17:01:00 Test Item Value Reference Range Interpretation Comments Segs (test code = Segs) 69.1 45.0-75.0 [facility] CenterZjritjiXMWSLBGFPJ0578-49-68 17:01:00 Test Item Value Reference Range Interpretation Comments Lymphocytes # (test code = Lymphocytes 2.0 1.0-5.5 #) [facility] CenterNgtxfexRSELKNYKNC8521-06-41 17:01:00 Test Item Value Reference Range Interpretation Comments Basophils # (test code 0.1 See_Comment [Aut omated message] The = Basophils #) system which generated this result tra nsmitted reference range : <=0.2. The reference r bill was not used to int erpret this result as normal/abnormal . [facility] CenterCynxwhkZURUMMHYJE9364-79-49 17:01:00 Test Item Value Reference Range Interpretation Comments Eosinophils # (test code 0.1 See_Comment [A utomated message] The = Eosinophils #) system whic h generated this result tra nsmitted reference range : <=0.5. The reference r bill was not used to int erpret this result as normal/abnormal . [facility] CenterBzpkvtzTWXBNPZCNI6972-16-47 17:01:00 Test Item Value Reference Range Interpretation Comments Monocytes (test code = Monocytes) 6.2 2.0-12.0 [facility] CenterCbefqpaHXHRHZRRVZ5113-25-31 17:01:00 Test Item Value Reference Range Interpretation Comments Segs-Bands # (test code = Segs-Bands #) 5.9 1.5-8.1 [facility] CenterEuzrfolAXKULCONMX1445-94-03 17:01:00 Test Item Value Reference Range Interpretation Comments Monocytes # (test code 0.5 See_Comment [Aut omated message] The = Monocytes #) system which generated this result tra nsmitted reference range : <=0.8. The reference r bill was not used to int erpret this result as normal/abnormal . [facility]2017-02-06 17:01:00 Test Item Value Reference Range Interpretation Comments B/C Ratio (test code = B/C Ratio) 32 6-25 [facility]2017-02-06 17:01:00 Test Item Value Reference Range Interpretation Comments Globulin (test code = Globulin) 4.1 2.7-4.2 [facility]2017-02-06 17:01:00 Test Item Value Reference Range Interpretation Comments A/G Ratio (test code = A/G Ratio) 1.0 0.7-1.6 [facility]2017-02-06 17:01:00 Test Item Value Reference Range Interpretation Comments AGAP (test code = AGAP) 13.0 10.0-20.0 [facility]2017-02-06 17:01:00 Test Item Value Reference Range Interpretation Comments eGFR (test code = eGFR) 50 [facility]2017-02-06 17:01:00 Test Item Value Reference Range Interpretation Comments Albumin Lvl (test code = Albumin Lvl) 4.1 3.5-5.0 [facility]2017-02-06 17:01:00 Test Item Value Reference Range Interpretation Comments AST (test code = AST) 11 See_Comment [Auto mated message] The system which ge nerated this result transmit son reference range : <=37. The reference range was not used to interpr et this result as nikki l/abnormal. [facility]2017-02-06 17:01:00 Test Item Value Reference Range Interpretation Comments ALT (test code = ALT) 23 See_Comment [Auto mated message] The system which ge nerated this result transmit son reference range : <=65. The reference range was not used to interpr et this result as nikki l/abnormal. [facility]2017-02-06 17:01:00 Test Item Value Reference Range Interpretation Comments Total Protein (test code = Total 8.2 6.4-8.4 Protein) [facility]2017-02-06 17:01:00 Test Item Value Reference Range Interpretation Comments Alk Phos (test code = Alk Phos) 77 39-136 [facility]2017-02-06 17:01:00 Test Item Value Reference Range Interpretation Comments Bili Total (test code = Bili Total) 0.5 0.2-1.3 [facility]2017-02-06 17:01:00 Test Item Value Reference Range Interpretation Comments Chloride Lvl (test code = Chloride Lvl) 109 95-109 [facility]2017-02-06 17:01:00 Test Item Value Reference Range Interpretation Comments CO2 (test code = CO2) 23 24-32 [facility]2017-02-06 17:01:00 Test Item Value Reference Range Interpretation Comments Calcium Lvl (test code = Calcium Lvl) 8.9 8.5-10.5 [facility]2017-02-06 17:01:00 Test Item Value Reference Range Interpretation Comments Glucose Lvl (test code = Glucose Lvl) 93 70-99 [facility]2017-02-06 17:01:00 Test Item Value Reference Range Interpretation Comments Potassium Lvl (test code = Potassium 4.0 3.5-5.1 Lvl) [facility]2017-02-06 17:01:00 Test Item Value Reference Range Interpretation Comments Sodium Lvl (test code = Sodium Lvl) 141 135-145 [facility]2017-02-06 17:01:00 Test Item Value Reference Range Interpretation Comments BUN (test code = BUN) 35 7-22 [facility]2017-02-06 17:01:00 Test Item Value Reference Range Interpretation Comments Creatinine Lvl (test code = Creatinine 1.10 0.50-1.40 Lvl) [facility] CenterIbbomnaUXHQMOWBXP9165-74-22 17:01:00 Test Item Value Reference Range Interpretation Comments RBC (test code = RBC) 4.54 4.20-5.40 [facility] CenterKqmwwkxWAWIEWMDIE6677-68-66 17:01:00 Test Item Value Reference Range Interpretation Comments Hgb (test code = Hgb) 14.3 12.0-16.0 [facility] CenterHodrqqhAMAUKELYTA1886-07-11 17:01:00 Test Item Value Reference Range Interpretation Comments WBC (test code = WBC) 8.5 3.7-10.4 [facility] CenterQzjznszBLWFEHBAMG2590-11-54 17:01:00 Test Item Value Reference Range Interpretation Comments MPV (test code = MPV) 9.2 7.4-10.4 [facility] CenterLgptrjeVVVELJAJXR8426-19-58 17:01:00 Test Item Value Reference Range Interpretation Comments MCV (test code = MCV) 92.6 80.0-98.0 [facility] CenterAnqhoxfKDXYBCKIEL0565-18-09 17:01:00 Test Item Value Reference Range Interpretation Comments Hct (test code = Hct) 42.1 36.0-48.0 [facility] CenterIqummwhJDZXSPCCVW6609-15-87 17:01:00 Test Item Value Reference Range Interpretation Comments RDW (test code = RDW) 13.6 11.5-14.5 [facility] CenterHucftgdPCEUYINOTL9353-11-56 17:01:00 Test Item Value Reference Range Interpretation Comments MCH (test code = MCH) 31.5 pg 27.0-31.0 [facility] CenterXkhptnjNFNXPFRUKM4012-98-81 17:01:00 Test Item Value Reference Range Interpretation Comments Platelet (test code = Platelet) 216 133-450 [facility] CenterDnebdbzVFYRSHVRFT9316-68-46 17:01:00 Test Item Value Reference Range Interpretation Comments MCHC (test code = MCHC) 34.1 32.0-36.0 [facility] CenterLtcbksxUPQIEZZPKP8580-04-69 17:01:00 Test Item Value Reference Range Interpretation Comments Basophils (test code = 0.6 See_Comment [Aut omated message] The Basophils) system which ge nerated this result tra nsmitted reference range : <=1.0. The reference r bill was not used to int erpret this result as normal/abnormal . [facility] CenterDnrcsbmQQLZMOXHGQ1882-89-21 17:01:00 Test Item Value Reference Range Interpretation Comments Eosinophils (test code = 0.9 See_Comment [A utomated message] The Eosinophils) system which ge nerated this result tra nsmitted reference range : <=4.0. The reference r bill was not used to int erpret this result as normal/abnormal . [facility] CenterFxagpbiGNQEWMXFXU2092-95-03 17:01:00 Test Item Value Reference Range Interpretation Comments Lymphocytes (test code = Lymphocytes) 23.2 20.0-40.0 [facility] CenterZpgvhiuUCDQEWNYXK9034-07-53 17:01:00 Test Item Value Reference Range Interpretation Comments Segs (test code = Segs) 69.1 45.0-75.0 [facility] CenterKkqfswrLIKUAYGNPR1023-05-75 17:01:00 Test Item Value Reference Range Interpretation Comments Lymphocytes # (test code = Lymphocytes 2.0 1.0-5.5 #) [facility] CenterNyxesrrKDORXBQMWA0789-64-12 17:01:00 Test Item Value Reference Range Interpretation Comments Basophils # (test code 0.1 See_Comment [Aut omated message] The = Basophils #) system which generated this result tra nsmitted reference range : <=0.2. The reference r bill was not used to int erpret this result as normal/abnormal . [facility] CenterJobyofwGXQINPMPUH0537-53-21 17:01:00 Test Item Value Reference Range Interpretation Comments Eosinophils # (test code 0.1 See_Comment [A utomated message] The = Eosinophils #) system whic h generated this result tra nsmitted reference range : <=0.5. The reference r bill was not used to int erpret this result as normal/abnormal . [facility] CenterQjakytkDNELRYMUTV6167-58-09 17:01:00 Test Item Value Reference Range Interpretation Comments Monocytes (test code = Monocytes) 6.2 2.0-12.0 [facility] CenterKqxcfalDMFHPCCHQD0239-04-15 17:01:00 Test Item Value Reference Range Interpretation Comments Segs-Bands # (test code = Segs-Bands #) 5.9 1.5-8.1 [facility] CenterOiifohzYRVXIVMYIW7417-66-99 17:01:00 Test Item Value Reference Range Interpretation Comments Monocytes # (test code 0.5 See_Comment [Aut omated message] The = Monocytes #) system which generated this result tra nsmitted reference range : <=0.8. The reference r bill was not used to int erpret this result as normal/abnormal . [facility]2017-02-06 17:01:00 Test Item Value Reference Range Interpretation Comments B/C Ratio (test code = B/C Ratio) 32 6-25 [facility]2017-02-06 17:01:00 Test Item Value Reference Range Interpretation Comments Globulin (test code = Globulin) 4.1 2.7-4.2 [facility]2017-02-06 17:01:00 Test Item Value Reference Range Interpretation Comments A/G Ratio (test code = A/G Ratio) 1.0 0.7-1.6 [facility]2017-02-06 17:01:00 Test Item Value Reference Range Interpretation Comments AGAP (test code = AGAP) 13.0 10.0-20.0 [facility]2017-02-06 17:01:00 Test Item Value Reference Range Interpretation Comments eGFR (test code = eGFR) 50 [facility]2017-02-06 17:01:00 Test Item Value Reference Range Interpretation Comments Albumin Lvl (test code = Albumin Lvl) 4.1 3.5-5.0 [facility]2017-02-06 17:01:00 Test Item Value Reference Range Interpretation Comments AST (test code = AST) 11 See_Comment [Auto mated message] The system which ge nerated this result transmit son reference range : <=37. The reference range was not used to interpr et this result as nikki l/abnormal. [facility]2017-02-06 17:01:00 Test Item Value Reference Range Interpretation Comments ALT (test code = ALT) 23 See_Comment [Auto mated message] The system which ge nerated this result transmit son reference range : <=65. The reference range was not used to interpr et this result as nikki l/abnormal. [facility]2017-02-06 17:01:00 Test Item Value Reference Range Interpretation Comments Total Protein (test code = Total 8.2 6.4-8.4 Protein) [facility]2017-02-06 17:01:00 Test Item Value Reference Range Interpretation Comments Alk Phos (test code = Alk Phos) 77 39-136 [facility]2017-02-06 17:01:00 Test Item Value Reference Range Interpretation Comments Bili Total (test code = Bili Total) 0.5 0.2-1.3 [place] 390707-02-06 17:01:00 Test Item Value Reference Range Interpretation Comments Chloride Lvl (test code = Chloride Lvl) 109 95-109 [facility]2017-02-06 17:01:00 Test Item Value Reference Range Interpretation Comments CO2 (test code = CO2) 23 24-32 [facility]2017-02-06 17:01:00 Test Item Value Reference Range Interpretation Comments Calcium Lvl (test code = Calcium Lvl) 8.9 8.5-10.5 [facility]2017-02-06 17:01:00 Test Item Value Reference Range Interpretation Comments Glucose Lvl (test code = Glucose Lvl) 93 70-99 [facility]2017-02-06 17:01:00 Test Item Value Reference Range Interpretation Comments Potassium Lvl (test code = Potassium 4.0 3.5-5.1 Lvl) [facility]2017-02-06 17:01:00 Test Item Value Reference Range Interpretation Comments Sodium Lvl (test code = Sodium Lvl) 141 135-145 [facility]2017-02-06 17:01:00 Test Item Value Reference Range Interpretation Comments BUN (test code = BUN) 35 7-22 [facility]2017-02-06 17:01:00 Test Item Value Reference Range Interpretation Comments Creatinine Lvl (test code = Creatinine 1.10 0.50-1.40 Lvl) [facility] CenterZbfxefrHMMKHMLDWU9219-44-43 17:01:00 Test Item Value Reference Range Interpretation Comments RBC (test code = RBC) 4.54 4.20-5.40 [facility]FbtcuglYIHCDXPLIP2428-09-88 17:01:00 Test Item Value Reference Range Interpretation Comments Hgb (test code = Hgb) 14.3 12.0-16.0 [place] 025737-02-06 17:01:00 Test Item Value Reference Range Interpretation Comments WBC (test code = WBC) 8.5 3.7-10.4 [place] [address]-02-06 17:01:00 Test Item Value Reference Range Interpretation Comments MPV (test code = MPV) 9.2 7.4-10.4 [facility] CenterJabqzueEYVIDGGZPJ5513-02-93 17:01:00 Test Item Value Reference Range Interpretation Comments MCV (test code = MCV) 92.6 80.0-98.0 [place] [address]-02-06 17:01:00 Test Item Value Reference Range Interpretation Comments Hct (test code = Hct) 42.1 36.0-48.0 [facility] CenterEjylfwnEBUCGIFTYL6237-23-41 17:01:00 Test Item Value Reference Range Interpretation Comments RDW (test code = RDW) 13.6 11.5-14.5 [facility] CenterGehpyxlKPJJHOPHZA3820-06-31 17:01:00 Test Item Value Reference Range Interpretation Comments MCH (test code = MCH) 31.5 pg 27.0-31.0 [facility] CenterQuscnlwFCTXOVTVOH9325-04-45 17:01:00 Test Item Value Reference Range Interpretation Comments Platelet (test code = Platelet) 216 133-450 [facility] CenterKzyrwveRFYWUEVFKI8920-22-24 17:01:00 Test Item Value Reference Range Interpretation Comments MCHC (test code = MCHC) 34.1 32.0-36.0 [facility] CenterDvcmhskJIKVXTRNAB6304-07-61 17:01:00 Test Item Value Reference Range Interpretation Comments Basophils (test code = 0.6 See_Comment [Aut omated message] The Basophils) system which ge nerated this result tra nsmitted reference range : <=1.0. The reference r bill was not used to int erpret this result as normal/abnormal . [facility] CenterZyoqhyrAZMADJNFCT7913-70-38 17:01:00 Test Item Value Reference Range Interpretation Comments Eosinophils (test code = 0.9 See_Comment [A utomated message] The Eosinophils) system which ge nerated this result tra nsmitted reference range : <=4.0. The reference r bill was not used to int erpret this result as normal/abnormal . [facility] CenterGmpocjkDYSUNQCPFA7714-36-06 17:01:00 Test Item Value Reference Range Interpretation Comments Lymphocytes (test code = Lymphocytes) 23.2 20.0-40.0 [facility] CenterGjfdzteCRRMMFTRJI2813-14-26 17:01:00 Test Item Value Reference Range Interpretation Comments Segs (test code = Segs) 69.1 45.0-75.0 [facility] CenterQgysxczLAKWENLYIH1572-05-00 17:01:00 Test Item Value Reference Range Interpretation Comments Lymphocytes # (test code = Lymphocytes 2.0 1.0-5.5 #) [facility] CenterIdjnhnzCLDMXVPTBT5998-97-30 17:01:00 Test Item Value Reference Range Interpretation Comments Basophils # (test code 0.1 See_Comment [Aut omated message] The = Basophils #) system which generated this result tra nsmitted reference range : <=0.2. The reference r ibll was not used to int erpret this result as normal/abnormal . [facility]FxtfkrdAWYMAINCRQ1543-81-59 17:01:00 Test Item Value Reference Range Interpretation Comments Eosinophils # (test code 0.1 See_Comment [A utomated message] The = Eosinophils #) system whic h generated this result tra nsmitted reference range : <=0.5. The reference r bill was not used to int erpret this result as normal/abnormal . [facility]NwdfkicFEDVJZFYKL5095-84-82 17:01:00 Test Item Value Reference Range Interpretation Comments Monocytes (test code = Monocytes) 6.2 2.0-12.0 [facility] SunnyvaleDbufikiBJWDQSXOCK2098-32-33 17:01:00 Test Item Value Reference Range Interpretation Comments Segs-Bands # (test code = Segs-Bands #) 5.9 1.5-8.1 [facility]aleXfykrhqUPNBZDBDDB8034-25-07 17:01:00 Test Item Value Reference Range Interpretation Comments Monocytes # (test code 0.5 See_Comment [Aut omated message] The = Monocytes #) system which generated this result tra nsmitted reference range : <=0.8. The reference r bill was not used to int erpret this result as normal/abnormal . [facility] [employer] [id number] 14:58:00 Test Item Value Reference Range Interpretation Comments Antibody Scrn (test Negative (09/28/15 9:58 code = Antibody Scrn) AM) [facility] [employer] PBJEHSJ9394-94-06 14:58:00 Test Item Value Reference Range Interpretation Comments ABO/Rh (test code = ABO/Rh) O POS [facility] [employer] [id number] 14:58:00 Test Item Value Reference Range Interpretation Comments Bili Total (test code = Bili Total) 0.4 0.2-1.3 [facility] [employer] [id number] 14:58:00 Test Item Value Reference Range Interpretation Comments Alk Phos (test code = Alk Phos) 83 39-136 [facility] [employer] [id number] 14:58:00 Test Item Value Reference Range Interpretation Comments AST (test code = AST) 13 See_Comment [Auto mated message] The system which ge nerated this result transmit son reference range : <=37. The reference range was not used to interpr et this result as nikki l/abnormal. [facility]2016-05-17 14:58:00 Test Item Value Reference Range Interpretation Comments ALT (test code = ALT) 21 See_Comment [Auto mated message] The system which ge nerated this result transmit son reference range : <=65. The reference range was not used to interpr et this result as nikki l/abnormal. [facility]2016-05-17 14:58:00 Test Item Value Reference Range Interpretation Comments Albumin Lvl (test code = Albumin Lvl) 3.8 3.5-5.0 [facility]2016-05-17 14:58:00 Test Item Value Reference Range Interpretation Comments Total Protein (test code = Total 7.8 6.4-8.4 Protein) [facility]2016-05-17 14:58:00 Test Item Value Reference Range Interpretation Comments Calcium Lvl (test code = Calcium Lvl) 9.0 8.5-10.5 [facility]2016-05-17 14:58:00 Test Item Value Reference Range Interpretation Comments CO2 (test code = CO2) 26 24-32 [facility]2016-05-17 14:58:00 Test Item Value Reference Range Interpretation Comments eGFR (test code = eGFR) 56 [facility]2016-05-17 14:58:00 Test Item Value Reference Range Interpretation Comments Chloride Lvl (test code = Chloride Lvl) 107 95-109 [facility]2016-05-17 14:58:00 Test Item Value Reference Range Interpretation Comments Sodium Lvl (test code = Sodium Lvl) 141 135-145 [place] 390706-05-17 14:58:00 Test Item Value Reference Range Interpretation Comments Potassium Lvl (test code = Potassium 4.2 3.5-5.1 Lvl) [facility]2016-05-17 14:58:00 Test Item Value Reference Range Interpretation Comments Creatinine Lvl (test code = Creatinine 1.01 0.50-1.40 Lvl) [facility]2016-05-17 14:58:00 Test Item Value Reference Range Interpretation Comments BUN (test code = BUN) 19 7-22 [place] 390706-05-17 14:58:00 Test Item Value Reference Range Interpretation Comments Glucose Lvl (test code = Glucose Lvl) 96 70-99 [place] 390706-05-17 14:58:00 Test Item Value Reference Range Interpretation Comments B/C Ratio (test code = B/C Ratio) 19 6-25 [place] [address]-05-17 14:58:00 Test Item Value Reference Range Interpretation Comments AGAP (test code = AGAP) 12.2 10.0-20.0 [place] 390706-05-17 14:58:00 Test Item Value Reference Range Interpretation Comments A/G Ratio (test code = A/G Ratio) 1.0 0.7-1.6 [place] [address]-05-17 14:58:00 Test Item Value Reference Range Interpretation Comments Globulin (test code = Globulin) 4.0 2.0-4.0 [place] [address]-05-17 14:58:00 Test Item Value Reference Range Interpretation Comments PTT (test code = PTT) 27.0 s 22.9-35.8 [place] 025736-05-17 14:58:00 Test Item Value Reference Range Interpretation Comments PT (test code = PT) 13.8 s 12.0-14.7 [place] [address]-05-17 14:58:00 Test Item Value Reference Range Interpretation Comments INR (test code = INR) 1.03 0.85-1.17 [place] [address]-05-17 14:58:00 Test Item Value Reference Range Interpretation Comments Eosinophils # (test code 0.1 See_Comment [A utomated message] The = Eosinophils #) system whic h generated this result tra nsmitted reference range : <=0.5. The reference r bill was not used to int erpret this result as normal/abnormal . [place] [address]-05-17 14:58:00 Test Item Value Reference Range Interpretation Comments Basophils (test code = 0.8 See_Comment [Aut omated message] The Basophils) system which ge nerated this result tra nsmitted reference range : <=1.0. The reference r bill was not used to int erpret this result as normal/abnormal . [facility] CenterDlcmnpdDLWWQDXAOL9198-45-26 14:58:00 Test Item Value Reference Range Interpretation Comments Lymphocytes # (test code = Lymphocytes 1.7 1.0-5.5 #) [facility] CenterKykmmcwSRERTKGDLJ1918-30-64 14:58:00 Test Item Value Reference Range Interpretation Comments Monocytes # (test code 0.5 See_Comment [Aut omated message] The = Monocytes #) system which generated this result tra nsmitted reference range : <=0.8. The reference r bill was not used to int erpret this result as normal/abnormal . [facility] CenterPbhgmkyGXFFHMLMMT5019-13-08 14:58:00 Test Item Value Reference Range Interpretation Comments Segs-Bands # (test code = Segs-Bands #) 4.1 1.5-8.1 [facility] CenterNlmlxvkYBDVSCZDNJ6675-75-43 14:58:00 Test Item Value Reference Range Interpretation Comments Monocytes (test code = Monocytes) 7.3 2.0-12.0 [facility] CenterSghqcatPQPNWQGNBD3920-99-22 14:58:00 Test Item Value Reference Range Interpretation Comments Eosinophils (test code = 2.1 See_Comment [A utomated message] The Eosinophils) system which ge nerated this result tra nsmitted reference range : <=4.0. The reference r bill was not used to int erpret this result as normal/abnormal . [facility] CenterDwpzlpxCZLEYTAZXA3898-46-15 14:58:00 Test Item Value Reference Range Interpretation Comments Segs (test code = Segs) 63.0 45.0-75.0 [facility] CenterRairxbkWNEUAOZURY9329-54-82 14:58:00 Test Item Value Reference Range Interpretation Comments Lymphocytes (test code = Lymphocytes) 26.8 20.0-40.0 [facility] CenterJusgpgjSMYOTPDDAK4197-59-47 14:58:00 Test Item Value Reference Range Interpretation Comments Platelet (test code = Platelet) 242 133-450 [facility] CenterBawztuvYAWVKUWVYU3222-39-45 14:58:00 Test Item Value Reference Range Interpretation Comments RDW (test code = RDW) 13.0 11.5-14.5 [facility] CenterIakoxloWKWOXBECRL8682-71-67 14:58:00 Test Item Value Reference Range Interpretation Comments MPV (test code = MPV) 8.6 7.4-10.4 [facility] CenterQifkvobWDODKSEEVF2282-90-51 14:58:00 Test Item Value Reference Range Interpretation Comments MCHC (test code = MCHC) 32.7 32.0-36.0 [facility] CenterXhjyafjPFYIYHSZUS1464-83-00 14:58:00 Test Item Value Reference Range Interpretation Comments Hct (test code = Hct) 39.2 36.0-48.0 [facility] CenterUiytucgRWYTUROABT1898-44-33 14:58:00 Test Item Value Reference Range Interpretation Comments MCV (test code = MCV) 91.3 80.0-98.0 [facility] CenterHzsiotgDOJPBMZHHQ3270-51-60 14:58:00 Test Item Value Reference Range Interpretation Comments MCH (test code = MCH) 29.9 pg 27.0-31.0 [facility] CenterVzquzkgTWXPDZKUEG2937-48-78 14:58:00 Test Item Value Reference Range Interpretation Comments Hgb (test code = Hgb) 12.8 12.0-16.0 [facility] CenterCqsxqfxIULGZFSITE6118-46-05 14:58:00 Test Item Value Reference Range Interpretation Comments WBC (test code = WBC) 6.5 3.7-10.4 [facility] CenterWmejhehQXTXIHAMYF2329-01-04 14:58:00 Test Item Value Reference Range Interpretation Comments RBC (test code = RBC) 4.29 4.20-5.40 [facility] AND [id number] 14:58:00 Test Item Value Reference Range Interpretation Comments UA Urobilinogen (test code = UA <=1.0 mg/dL 0.1-1.0 Urobilinogen) [facility] AND [id number] 14:58:00 Test Item Value Reference Range Interpretation Comments UA Color (test code = Yellow *NA*(09/28/15 UA Color) 9:58 AM) [facility] AND [id number] 14:58:00 Test Item Value Reference Range Interpretation Comments UA Spec Grav (test code = UA Spec Grav) 1.020 [facility] AND [id number] 14:58:00 Test Item Value Reference Range Interpretation Comments UA Turbidity (test code = Clear (09/28/15 9:58 UA Turbidity) AM) [facility] AND [id number] 14:58:00 Test Item Value Reference Range Interpretation Comments UA pH (test code = UA pH) 6.0 5.0-8.0 [facility] AND [id number] 14:58:00 Test Item Value Reference Range Interpretation Comments UA Protein (test code = UA Negative mg/dL Protein) [facility] AND [id number] 14:58:00 Test Item Value Reference Range Interpretation Comments UA Glucose (test code = UA Negative mg/dL Glucose) [facility] AND [id number] 14:58:00 Test Item Value Reference Range Interpretation Comments UA Bili (test code = Negative *NA*(09/28/15 UA Bili) 9:58 AM) [facility] AND [id number] 14:58:00 Test Item Value Reference Range Interpretation Comments UA Ketones (test code = UA Negative mg/dL Ketones) [facility] AND [id number] 14:58:00 Test Item Value Reference Range Interpretation Comments UA Leuk Est (test code Small *ABN*(09/28/15 = UA Leuk Est) 9:58 AM) [facility] AND [id number] 14:58:00 Test Item Value Reference Range Interpretation Comments UA Nitrite (test code Positive *ABN*(09/28/15 = UA Nitrite) 9:58 AM) [facility] AND [id number] 14:58:00 Test Item Value Reference Range Interpretation Comments UA Blood (test code = Negative (09/28/15 9:58 UA Blood) AM) [facility] AND [id number] 14:58:00 Test Item Value Reference Range Interpretation Comments UA Sq Epi (test code = UA Sq Occasional /LPF Epi) [facility] AND [id number] 14:58:00 Test Item Value Reference Range Interpretation Comments UA WBC (test code = 34 See_Comment [Automa son message] The UA WBC) system which ge nerated this result transmit son reference range : <=5. The reference range was not used to interpr et this result as nikki l/abnormal. [facility] AND [id number] 14:58:00 Test Item Value Reference Range Interpretation Comments UA RBC (test code = 1 See_Comment [Automa son message] The UA RBC) system which ge nerated this result transmit son reference range : <=2. The reference range was not used to interpr et this result as nikki l/abnormal. [facility] AND [id number] 14:58:00 Test Item Value Reference Range Interpretation Comments UA Bacteria (test code = UA Moderate /HPF Bacteria) [facility] AND [id number] 14:58:00 Test Item Value Reference Range Interpretation Comments UA Mucus (test code = UA Mucus) Few /LPF [facility] [id number] 14:58:00 Test Item Value Reference Range Interpretation Comments Antibody Scrn (test Negative (09/28/15 9:58 code = Antibody Scrn) AM) [facility] [id number] 14:58:00 Test Item Value Reference Range Interpretation Comments ABO/Rh (test code = ABO/Rh) O POS [facility] [id number] 14:58:00 Test Item Value Reference Range Interpretation Comments Bili Total (test code = Bili Total) 0.4 0.2-1.3 [facility] [id number] 14:58:00 Test Item Value Reference Range Interpretation Comments Alk Phos (test code = Alk Phos) 83 39-136 [facility] [id number] 14:58:00 Test Item Value Reference Range Interpretation Comments AST (test code = AST) 13 See_Comment [Auto mated message] The system which ge nerated this result transmit son reference range : <=37. The reference range was not used to interpr et this result as nikki l/abnormal. [facility] [employer] [id number] 14:58:00 Test Item Value Reference Range Interpretation Comments ALT (test code = ALT) 21 See_Comment [Auto mated message] The system which ge nerated this result transmit son reference range : <=65. The reference range was not used to interpr et this result as nikki l/abnormal. [facility] [employer] [id number] 14:58:00 Test Item Value Reference Range Interpretation Comments Albumin Lvl (test code = Albumin Lvl) 3.8 3.5-5.0 [facility] [id number] 14:58:00 Test Item Value Reference Range Interpretation Comments Total Protein (test code = Total 7.8 6.4-8.4 Protein) [facility] [id number] 14:58:00 Test Item Value Reference Range Interpretation Comments Calcium Lvl (test code = Calcium Lvl) 9.0 8.5-10.5 [facility]2016-05-17 14:58:00 Test Item Value Reference Range Interpretation Comments CO2 (test code = CO2) 26 24-32 [facility]2016-05-17 14:58:00 Test Item Value Reference Range Interpretation Comments eGFR (test code = eGFR) 56 [facility]2016-05-17 14:58:00 Test Item Value Reference Range Interpretation Comments Chloride Lvl (test code = Chloride Lvl) 107 95-109 [facility]2016-05-17 14:58:00 Test Item Value Reference Range Interpretation Comments Sodium Lvl (test code = Sodium Lvl) 141 135-145 [facility]2016-05-17 14:58:00 Test Item Value Reference Range Interpretation Comments Potassium Lvl (test code = Potassium 4.2 3.5-5.1 Lvl) [facility]2016-05-17 14:58:00 Test Item Value Reference Range Interpretation Comments Creatinine Lvl (test code = Creatinine 1.01 0.50-1.40 Lvl) [facility]2016-05-17 14:58:00 Test Item Value Reference Range Interpretation Comments BUN (test code = BUN) 19 7- [facility]2016-05-17 14:58:00 Test Item Value Reference Range Interpretation Comments Glucose Lvl (test code = Glucose Lvl) 96 70-99 [facility]2016-05-17 14:58:00 Test Item Value Reference Range Interpretation Comments B/C Ratio (test code = B/C Ratio) 19 6-25 [facility]2016-05-17 14:58:00 Test Item Value Reference Range Interpretation Comments AGAP (test code = AGAP) 12.2 10.0-20.0 [facility]2016-05-17 14:58:00 Test Item Value Reference Range Interpretation Comments A/G Ratio (test code = A/G Ratio) 1.0 0.7-1.6 [facility]2016-05-17 14:58:00 Test Item Value Reference Range Interpretation Comments Globulin (test code = Globulin) 4.0 2.0-4.0 [facility] CenterWxszrycWEQHEMTENU8149-88-94 14:58:00 Test Item Value Reference Range Interpretation Comments PTT (test code = PTT) 27.0 s 22.9-35.8 [facility] CenterCirsmrkEDYXWWYEKZ6497-46-58 14:58:00 Test Item Value Reference Range Interpretation Comments PT (test code = PT) 13.8 s 12.0-14.7 [facility] CenterKdzyqzyEYRBDSODGI6447-01-16 14:58:00 Test Item Value Reference Range Interpretation Comments INR (test code = INR) 1.03 0.85-1.17 [facility] CenterBynqrsjGWITUHLJOV4571-96-80 14:58:00 Test Item Value Reference Range Interpretation Comments Eosinophils # (test code 0.1 See_Comment [A utomated message] The = Eosinophils #) system whic h generated this result tra nsmitted reference range : <=0.5. The reference r bill was not used to int erpret this result as normal/abnormal . [facility] CenterFuibysePIMMWDNURN0153-10-80 14:58:00 Test Item Value Reference Range Interpretation Comments Basophils (test code = 0.8 See_Comment [Aut omated message] The Basophils) system which ge nerated this result tra nsmitted reference range : <=1.0. The reference r bill was not used to int erpret this result as normal/abnormal . [facility] CenterUclcwmwHTWIPZFDLE0828-36-13 14:58:00 Test Item Value Reference Range Interpretation Comments Lymphocytes # (test code = Lymphocytes 1.7 1.0-5.5 #) [facility] CenterRjhgfmcQPELKULEBK5765-14-86 14:58:00 Test Item Value Reference Range Interpretation Comments Monocytes # (test code 0.5 See_Comment [Aut omated message] The = Monocytes #) system which generated this result tra nsmitted reference range : <=0.8. The reference r bill was not used to int erpret this result as normal/abnormal . [facility] CenterQqsjwbeFZBIIQYVFR7336-67-03 14:58:00 Test Item Value Reference Range Interpretation Comments Segs-Bands # (test code = Segs-Bands #) 4.1 1.5-8.1 [facility] CenterSnrtxzlCEHDVJLNMF6425-11-63 14:58:00 Test Item Value Reference Range Interpretation Comments Monocytes (test code = Monocytes) 7.3 2.0-12.0 [facility] CenterNmgwcweIHCUYDMVTX3790-41-19 14:58:00 Test Item Value Reference Range Interpretation Comments Eosinophils (test code = 2.1 See_Comment [A utomated message] The Eosinophils) system which ge nerated this result tra nsmitted reference range : <=4.0. The reference r bill was not used to int erpret this result as normal/abnormal . [facility] CenterVboyanaSBMHOSICTQ0941-94-58 14:58:00 Test Item Value Reference Range Interpretation Comments Segs (test code = Segs) 63.0 45.0-75.0 [facility] CenterEzqgwmaJRXBXGSOBC4657-20-15 14:58:00 Test Item Value Reference Range Interpretation Comments Lymphocytes (test code = Lymphocytes) 26.8 20.0-40.0 [facility] CenterWfnetshXGYWITRYMR3884-77-05 14:58:00 Test Item Value Reference Range Interpretation Comments Platelet (test code = Platelet) 242 133-450 [facility] CenterRafcnufTAFNEFGQFQ7498-25-25 14:58:00 Test Item Value Reference Range Interpretation Comments RDW (test code = RDW) 13.0 11.5-14.5 [facility] CenterLksfkznLNELUKDHEU8341-89-37 14:58:00 Test Item Value Reference Range Interpretation Comments MPV (test code = MPV) 8.6 7.4-10.4 [facility] CenterFfcojeoYXUBUPFGSB3214-54-83 14:58:00 Test Item Value Reference Range Interpretation Comments MCHC (test code = MCHC) 32.7 32.0-36.0 [facility] CenterUtnjuoeWTIYDPWKFP6475-58-21 14:58:00 Test Item Value Reference Range Interpretation Comments Hct (test code = Hct) 39.2 36.0-48.0 [facility] CenterCtvshcnSWHYSPFZMY5863-00-77 14:58:00 Test Item Value Reference Range Interpretation Comments MCV (test code = MCV) 91.3 80.0-98.0 [facility] CenterPbrasqxWQQKJIMZKL6580-12-61 14:58:00 Test Item Value Reference Range Interpretation Comments MCH (test code = MCH) 29.9 pg 27.0-31.0 [facility] CenterSspxlzwLJWLRUNWNN3171-62-14 14:58:00 Test Item Value Reference Range Interpretation Comments Hgb (test code = Hgb) 12.8 12.0-16.0 [facility] CenterTquzpcnYLBYABJTDE1624-56-96 14:58:00 Test Item Value Reference Range Interpretation Comments WBC (test code = WBC) 6.5 3.7-10.4 [facility]aleTmuissuMOGZSEBMEV0418-38-96 14:58:00 Test Item Value Reference Range Interpretation Comments RBC (test code = RBC) 4.29 4.20-5.40 [facility] AND [id number] 14:58:00 Test Item Value Reference Range Interpretation Comments UA Urobilinogen (test code = UA <=1.0 mg/dL 0.1-1.0 Urobilinogen) [facility] AND [id number] 14:58:00 Test Item Value Reference Range Interpretation Comments UA Color (test code = Yellow *NA*(09/28/15 UA Color) 9:58 AM) [facility] AND [id number] 14:58:00 Test Item Value Reference Range Interpretation Comments UA Spec Grav (test code = UA Spec Grav) 1.020 [facility] AND [id number] 14:58:00 Test Item Value Reference Range Interpretation Comments UA Turbidity (test code = Clear (09/28/15 9:58 UA Turbidity) AM) [facility] AND [id number] 14:58:00 Test Item Value Reference Range Interpretation Comments UA pH (test code = UA pH) 6.0 5.0-8.0 [facility] AND [id number] 14:58:00 Test Item Value Reference Range Interpretation Comments UA Protein (test code = UA Negative mg/dL Protein) [facility] AND [id number] 14:58:00 Test Item Value Reference Range Interpretation Comments UA Glucose (test code = UA Negative mg/dL Glucose) [facility] AND [id number] 14:58:00 Test Item Value Reference Range Interpretation Comments UA Bili (test code = Negative *NA*(09/28/15 UA Bili) 9:58 AM) [facility] AND [id number] 14:58:00 Test Item Value Reference Range Interpretation Comments UA Ketones (test code = UA Negative mg/dL Ketones) [facility] AND [id number] 14:58:00 Test Item Value Reference Range Interpretation Comments UA Leuk Est (test code Small *ABN*(09/28/15 = UA Leuk Est) 9:58 AM) [facility] AND [id number] 14:58:00 Test Item Value Reference Range Interpretation Comments UA Nitrite (test code Positive *ABN*(09/28/15 = UA Nitrite) 9:58 AM) [facility] AND [id number] 14:58:00 Test Item Value Reference Range Interpretation Comments UA Blood (test code = Negative (09/28/15 9:58 UA Blood) AM) [facility] AND [id number] 14:58:00 Test Item Value Reference Range Interpretation Comments UA Sq Epi (test code = UA Sq Occasional /LPF Epi) [facility] AND [id number] 14:58:00 Test Item Value Reference Range Interpretation Comments UA WBC (test code = 34 See_Comment [Automa son message] The UA WBC) system which ge nerated this result transmit son reference range : <=5. The reference range was not used to interpr et this result as nikki l/abnormal. [facility] AND [id number] 14:58:00 Test Item Value Reference Range Interpretation Comments UA RBC (test code = 1 See_Comment [Automa son message] The UA RBC) system which ge nerated this result transmit son reference range : <=2. The reference range was not used to interpr et this result as nikki l/abnormal. [facility] AND [id number] 14:58:00 Test Item Value Reference Range Interpretation Comments UA Bacteria (test code = UA Moderate /HPF Bacteria) [facility] AND [id number] 14:58:00 Test Item Value Reference Range Interpretation Comments UA Mucus (test code = UA Mucus) Few /LPF [facility] [employer] [id number] 14:58:00 Test Item Value Reference Range Interpretation Comments Antibody Scrn (test Negative (09/28/15 9:58 code = Antibody Scrn) AM) [facility] [employer] [facility] [id number] 14:58:00 Test Item Value Reference Range Interpretation Comments ABO/Rh (test code = ABO/Rh) O POS [facility] [id number] 14:58:00 Test Item Value Reference Range Interpretation Comments Bili Total (test code = Bili Total) 0.4 0.2-1.3 [facility] [id number] 14:58:00 Test Item Value Reference Range Interpretation Comments Alk Phos (test code = Alk Phos) 83 39-136 [facility]2016-05-17 14:58:00 Test Item Value Reference Range Interpretation Comments AST (test code = AST) 13 See_Comment [Auto mated message] The system which ge nerated this result transmit son reference range : <=37. The reference range was not used to interpr et this result as nikki l/abnormal. [facility]2016-05-17 14:58:00 Test Item Value Reference Range Interpretation Comments ALT (test code = ALT) 21 See_Comment [Auto mated message] The system which ge nerated this result transmit son reference range : <=65. The reference range was not used to interpr et this result as nikki l/abnormal. [facility]2016-05-17 14:58:00 Test Item Value Reference Range Interpretation Comments Albumin Lvl (test code = Albumin Lvl) 3.8 3.5-5.0 [place] 390706-05-17 14:58:00 Test Item Value Reference Range Interpretation Comments Total Protein (test code = Total 7.8 6.4-8.4 Protein) [facility]2016-05-17 14:58:00 Test Item Value Reference Range Interpretation Comments Calcium Lvl (test code = Calcium Lvl) 9.0 8.5-10.5 [facility]2016-05-17 14:58:00 Test Item Value Reference Range Interpretation Comments CO2 (test code = CO2) 26 24-32 [facility]2016-05-17 14:58:00 Test Item Value Reference Range Interpretation Comments eGFR (test code = eGFR) 56 [place] 390706-05-17 14:58:00 Test Item Value Reference Range Interpretation Comments Chloride Lvl (test code = Chloride Lvl) 107 95-109 [facility]2016-05-17 14:58:00 Test Item Value Reference Range Interpretation Comments Sodium Lvl (test code = Sodium Lvl) 141 135-145 [place] 390706-05-17 14:58:00 Test Item Value Reference Range Interpretation Comments Potassium Lvl (test code = Potassium 4.2 3.5-5.1 Lvl) [facility]2016-05-17 14:58:00 Test Item Value Reference Range Interpretation Comments Creatinine Lvl (test code = Creatinine 1.01 0.50-1.40 Lvl) [facility]2016-05-17 14:58:00 Test Item Value Reference Range Interpretation Comments BUN (test code = BUN) 19 7- [place] 390706-05-17 14:58:00 Test Item Value Reference Range Interpretation Comments Glucose Lvl (test code = Glucose Lvl) 96 70-99 [facility]2016-05-17 14:58:00 Test Item Value Reference Range Interpretation Comments B/C Ratio (test code = B/C Ratio) 19 6- [place] 390706-05-17 14:58:00 Test Item Value Reference Range Interpretation Comments AGAP (test code = AGAP) 12.2 10.0-20.0 [place] 390706-05-17 14:58:00 Test Item Value Reference Range Interpretation Comments A/G Ratio (test code = A/G Ratio) 1.0 0.7-1.6 [place] 390706-05-17 14:58:00 Test Item Value Reference Range Interpretation Comments Globulin (test code = Globulin) 4.0 2.0-4.0 [id number] 14:58:00 Test Item Value Reference Range Interpretation Comments PTT (test code = PTT) 27.0 s 22.9-35.8 [place] 025736-05-17 14:58:00 Test Item Value Reference Range Interpretation Comments PT (test code = PT) 13.8 s 12.0-14.7 [place] [address]-05-17 14:58:00 Test Item Value Reference Range Interpretation Comments INR (test code = INR) 1.03 0.85-1.17 [place] 025736-05-17 14:58:00 Test Item Value Reference Range Interpretation Comments Eosinophils # (test code 0.1 See_Comment [A utomated message] The = Eosinophils #) system whic h generated this result tra nsmitted reference range : <=0.5. The reference r bill was not used to int erpret this result as normal/abnormal . [place] 025736-05-17 14:58:00 Test Item Value Reference Range Interpretation Comments Basophils (test code = 0.8 See_Comment [Aut omated message] The Basophils) system which ge nerated this result tra nsmitted reference range : <=1.0. The reference r bill was not used to int erpret this result as normal/abnormal . [facility] CenterNfqmygcPPICDQDDMK4173-59-30 14:58:00 Test Item Value Reference Range Interpretation Comments Lymphocytes # (test code = Lymphocytes 1.7 1.0-5.5 #) [facility] CenterSjbnzyfZFIUDFTCAK5661-89-11 14:58:00 Test Item Value Reference Range Interpretation Comments Monocytes # (test code 0.5 See_Comment [Aut omated message] The = Monocytes #) system which generated this result tra nsmitted reference range : <=0.8. The reference r bill was not used to int erpret this result as normal/abnormal . [facility] CenterSmejmqgDCCKNSSFOY3117-26-94 14:58:00 Test Item Value Reference Range Interpretation Comments Segs-Bands # (test code = Segs-Bands #) 4.1 1.5-8.1 [facility] CenterRacbqiwHMPQUYYVGG6496-20-99 14:58:00 Test Item Value Reference Range Interpretation Comments Monocytes (test code = Monocytes) 7.3 2.0-12.0 [facility] CenterNzssdetJHUQVUBKQF0117-02-98 14:58:00 Test Item Value Reference Range Interpretation Comments Eosinophils (test code = 2.1 See_Comment [A utomated message] The Eosinophils) system which ge nerated this result tra nsmitted reference range : <=4.0. The reference r bill was not used to int erpret this result as normal/abnormal . [facility] CenterWpyonpePTCBMCFWDD7815-92-24 14:58:00 Test Item Value Reference Range Interpretation Comments Segs (test code = Segs) 63.0 45.0-75.0 [facility] CenterOcyyxtiDXAMFTBYII8316-87-63 14:58:00 Test Item Value Reference Range Interpretation Comments Lymphocytes (test code = Lymphocytes) 26.8 20.0-40.0 [facility] CenterRurrdjxBRCQOVROAB8397-50-11 14:58:00 Test Item Value Reference Range Interpretation Comments Platelet (test code = Platelet) 242 133-450 [facility] CenterWlwefprDGYNVMSTEM6855-21-43 14:58:00 Test Item Value Reference Range Interpretation Comments RDW (test code = RDW) 13.0 11.5-14.5 [facility] CenterNvuyhktQUYGIZQBKX1144-38-83 14:58:00 Test Item Value Reference Range Interpretation Comments MPV (test code = MPV) 8.6 7.4-10.4 [facility] CenterCklomxqUJXXOMVXXY8407-01-92 14:58:00 Test Item Value Reference Range Interpretation Comments MCHC (test code = MCHC) 32.7 32.0-36.0 [facility] CenterVvquqdwXGMMCICSSR9606-69-76 14:58:00 Test Item Value Reference Range Interpretation Comments Hct (test code = Hct) 39.2 36.0-48.0 [facility] CenterSwucwkxICWOFDZWLQ6679-89-68 14:58:00 Test Item Value Reference Range Interpretation Comments MCV (test code = MCV) 91.3 80.0-98.0 [facility] CenterHhqfzxnHJPQBLSUQX7620-05-98 14:58:00 Test Item Value Reference Range Interpretation Comments MCH (test code = MCH) 29.9 pg 27.0-31.0 [facility] CenterJqxlymsEURVTAZGLZ8166-99-93 14:58:00 Test Item Value Reference Range Interpretation Comments Hgb (test code = Hgb) 12.8 12.0-16.0 [facility] CenterQtdabnjCPNKOVGYBY8305-86-20 14:58:00 Test Item Value Reference Range Interpretation Comments WBC (test code = WBC) 6.5 3.7-10.4 [facility] CenterXzjklrhIAAMXULJZY6732-10-24 14:58:00 Test Item Value Reference Range Interpretation Comments RBC (test code = RBC) 4.29 4.20-5.40 [facility]2016-05-17 14:58:00 Test Item Value Reference Range Interpretation Comments UA Urobilinogen (test code = UA <=1.0 mg/dL 0.1-1.0 Urobilinogen) [facility] AND [id number] 14:58:00 Test Item Value Reference Range Interpretation Comments UA Color (test code = Yellow *NA*(09/28/15 UA Color) 9:58 AM) [facility] AND [id number] 14:58:00 Test Item Value Reference Range Interpretation Comments UA Spec Grav (test code = UA Spec Grav) 1.020 [facility]2016-05-17 14:58:00 Test Item Value Reference Range Interpretation Comments UA Turbidity (test code = Clear (09/28/15 9:58 UA Turbidity) AM) [facility] AND [id number] 14:58:00 Test Item Value Reference Range Interpretation Comments UA pH (test code = UA pH) 6.0 5.0-8.0 [facility] AND [id number] 14:58:00 Test Item Value Reference Range Interpretation Comments UA Protein (test code = UA Negative mg/dL Protein) [facility] AND [id number] 14:58:00 Test Item Value Reference Range Interpretation Comments UA Glucose (test code = UA Negative mg/dL Glucose) [facility] AND [id number] 14:58:00 Test Item Value Reference Range Interpretation Comments UA Bili (test code = Negative *NA*(09/28/15 UA Bili) 9:58 AM) [facility] AND [id number] 14:58:00 Test Item Value Reference Range Interpretation Comments UA Ketones (test code = UA Negative mg/dL Ketones) [facility] AND [id number] 14:58:00 Test Item Value Reference Range Interpretation Comments UA Leuk Est (test code Small *ABN*(09/28/15 = UA Leuk Est) 9:58 AM) [facility] AND [id number] 14:58:00 Test Item Value Reference Range Interpretation Comments UA Nitrite (test code Positive *ABN*(09/28/15 = UA Nitrite) 9:58 AM) [facility] AND [id number] 14:58:00 Test Item Value Reference Range Interpretation Comments UA Blood (test code = Negative (09/28/15 9:58 UA Blood) AM) [facility] AND [id number] 14:58:00 Test Item Value Reference Range Interpretation Comments UA Sq Epi (test code = UA Sq Occasional /LPF Epi) [facility] AND [id number] 14:58:00 Test Item Value Reference Range Interpretation Comments UA WBC (test code = 34 See_Comment [Automa son message] The UA WBC) system which ge nerated this result transmit son reference range : <=5. The reference range was not used to interpr et this result as nikki l/abnormal. [facility] AND [id number] 14:58:00 Test Item Value Reference Range Interpretation Comments UA RBC (test code = 1 See_Comment [Automa son message] The UA RBC) system which ge nerated this result transmit son reference range : <=2. The reference range was not used to interpr et this result as nikki l/abnormal. [facility] AND [id number] 14:58:00 Test Item Value Reference Range Interpretation Comments UA Bacteria (test code = UA Moderate /HPF Bacteria) [facility] AND [id number] 14:58:00 Test Item Value Reference Range Interpretation Comments UA Mucus (test code = UA Mucus) Few /LPF [facility] [employer] [id number] 14:58:00 Test Item Value Reference Range Interpretation Comments Antibody Scrn (test Negative (09/28/15 9:58 code = Antibody Scrn) AM) [facility] [employer] [id number] 14:58:00 Test Item Value Reference Range Interpretation Comments ABO/Rh (test code = ABO/Rh) O POS [facility] [employer] [id number] 14:58:00 Test Item Value Reference Range Interpretation Comments Bili Total (test code = Bili Total) 0.4 0.2-1.3 [facility] [employer] [id number] 14:58:00 Test Item Value Reference Range Interpretation Comments Alk Phos (test code = Alk Phos) 83 39-136 [facility] [employer] [id number] 14:58:00 Test Item Value Reference Range Interpretation Comments AST (test code = AST) 13 See_Comment [Auto mated message] The system which ge nerated this result transmit son reference range : <=37. The reference range was not used to interpr et this result as nikki l/abnormal. [employer] [id number] 14:58:00 Test Item Value Reference Range Interpretation Comments ALT (test code = ALT) 21 See_Comment [Auto mated message] The system which ge nerated this result transmit son reference range : <=65. The reference range was not used to interpr et this result as nikki l/abnormal. [employer] [id number] 14:58:00 Test Item Value Reference Range Interpretation Comments Albumin Lvl (test code = Albumin Lvl) 3.8 3.5-5.0 [facility]2016-05-17 14:58:00 Test Item Value Reference Range Interpretation Comments Total Protein (test code = Total 7.8 6.4-8.4 Protein) [facility]2016-05-17 14:58:00 Test Item Value Reference Range Interpretation Comments Calcium Lvl (test code = Calcium Lvl) 9.0 8.5-10.5 [facility]2016-05-17 14:58:00 Test Item Value Reference Range Interpretation Comments CO2 (test code = CO2) 26 24-32 [facility]2016-05-17 14:58:00 Test Item Value Reference Range Interpretation Comments eGFR (test code = eGFR) 56 [facility]2016-05-17 14:58:00 Test Item Value Reference Range Interpretation Comments Chloride Lvl (test code = Chloride Lvl) 107 95-109 [facility]2016-05-17 14:58:00 Test Item Value Reference Range Interpretation Comments Sodium Lvl (test code = Sodium Lvl) 141 135-145 [facility]2016-05-17 14:58:00 Test Item Value Reference Range Interpretation Comments Potassium Lvl (test code = Potassium 4.2 3.5-5.1 Lvl) [facility]2016-05-17 14:58:00 Test Item Value Reference Range Interpretation Comments Creatinine Lvl (test code = Creatinine 1.01 0.50-1.40 Lvl) [facility]2016-05-17 14:58:00 Test Item Value Reference Range Interpretation Comments BUN (test code = BUN) 19 - [facility]2016-05-17 14:58:00 Test Item Value Reference Range Interpretation Comments Glucose Lvl (test code = Glucose Lvl) 96 70-99 [facility]2016-05-17 14:58:00 Test Item Value Reference Range Interpretation Comments B/C Ratio (test code = B/C Ratio) 19 - [facility]2016-05-17 14:58:00 Test Item Value Reference Range Interpretation Comments AGAP (test code = AGAP) 12.2 10.0-20.0 [facility]2016-05-17 14:58:00 Test Item Value Reference Range Interpretation Comments A/G Ratio (test code = A/G Ratio) 1.0 0.7-1.6 [facility]2016-05-17 14:58:00 Test Item Value Reference Range Interpretation Comments Globulin (test code = Globulin) 4.0 2.0-4.0 [facility] CenterIoqesvxAMPQHKXSPS1723-10-97 14:58:00 Test Item Value Reference Range Interpretation Comments PTT (test code = PTT) 27.0 s 22.9-35.8 [facility] CenterLhurdpuDBAOXHZVTZ7776-78-83 14:58:00 Test Item Value Reference Range Interpretation Comments PT (test code = PT) 13.8 s 12.0-14.7 [facility] CenterJundsulGINGVAAMVA3204-88-10 14:58:00 Test Item Value Reference Range Interpretation Comments INR (test code = INR) 1.03 0.85-1.17 [facility] CenterVkltblzYSWTHIXKMP1081-54-14 14:58:00 Test Item Value Reference Range Interpretation Comments Eosinophils # (test code 0.1 See_Comment [A utomated message] The = Eosinophils #) system whic h generated this result tra nsmitted reference range : <=0.5. The reference r bill was not used to int erpret this result as normal/abnormal . [facility] CenterUghwbilMSNUTITNKL3116-63-35 14:58:00 Test Item Value Reference Range Interpretation Comments Basophils (test code = 0.8 See_Comment [Aut omated message] The Basophils) system which ge nerated this result tra nsmitted reference range : <=1.0. The reference r bill was not used to int erpret this result as normal/abnormal . [facility] CenterBynblfzLRSCEGVEXA4665-10-38 14:58:00 Test Item Value Reference Range Interpretation Comments Lymphocytes # (test code = Lymphocytes 1.7 1.0-5.5 #) [facility] CenterRuiczsnLQZTYXXWIK0253-50-49 14:58:00 Test Item Value Reference Range Interpretation Comments Monocytes # (test code 0.5 See_Comment [Aut omated message] The = Monocytes #) system which generated this result tra nsmitted reference range : <=0.8. The reference r bill was not used to int erpret this result as normal/abnormal . [facility] CenterPpyeyrbOVCRUGXZEK2641-53-86 14:58:00 Test Item Value Reference Range Interpretation Comments Segs-Bands # (test code = Segs-Bands #) 4.1 1.5-8.1 [facility] [id number] 14:58:00 Test Item Value Reference Range Interpretation Comments Monocytes (test code = Monocytes) 7.3 2.0-12.0 [facility] CenterIowglwtDSHFGIGYOZ2293-44-73 14:58:00 Test Item Value Reference Range Interpretation Comments Eosinophils (test code = 2.1 See_Comment [A utomated message] The Eosinophils) system which ge nerated this result tra nsmitted reference range : <=4.0. The reference r bill was not used to int erpret this result as normal/abnormal . [facility] CenterSnhgpbjLDWAVYDPGZ0687-87-70 14:58:00 Test Item Value Reference Range Interpretation Comments Segs (test code = Segs) 63.0 45.0-75.0 [facility] CenterDonfcroGTBIVETVGP6609-65-12 14:58:00 Test Item Value Reference Range Interpretation Comments Lymphocytes (test code = Lymphocytes) 26.8 20.0-40.0 [facility] CenterSqqfnzlFNREWLQUJL8728-24-13 14:58:00 Test Item Value Reference Range Interpretation Comments Platelet (test code = Platelet) 242 133-450 [facility] CenterCdizzbhUGTLUXBBDN7661-52-70 14:58:00 Test Item Value Reference Range Interpretation Comments RDW (test code = RDW) 13.0 11.5-14.5 [facility] CenterOfhcnfbPAPDRMGGXQ5372-73-61 14:58:00 Test Item Value Reference Range Interpretation Comments MPV (test code = MPV) 8.6 7.4-10.4 [facility] CenterFvuxtuoXQIJUKZUZR0231-32-17 14:58:00 Test Item Value Reference Range Interpretation Comments MCHC (test code = MCHC) 32.7 32.0-36.0 [facility] CenterCgrrmlzCKSXOGEKCE9312-22-13 14:58:00 Test Item Value Reference Range Interpretation Comments Hct (test code = Hct) 39.2 36.0-48.0 [facility] CenterUoakgvbQGXFOSNKNY6254-51-32 14:58:00 Test Item Value Reference Range Interpretation Comments MCV (test code = MCV) 91.3 80.0-98.0 [facility] CenterRvwinmvOXXRWQCYWA3457-80-13 14:58:00 Test Item Value Reference Range Interpretation Comments MCH (test code = MCH) 29.9 pg 27.0-31.0 [facility] CenterImfpiffUWANNDJANP4705-97-91 14:58:00 Test Item Value Reference Range Interpretation Comments Hgb (test code = Hgb) 12.8 12.0-16.0 [facility] CenterVaayxcmAQVDFKRVGK5081-98-35 14:58:00 Test Item Value Reference Range Interpretation Comments WBC (test code = WBC) 6.5 3.7-10.4 [facility] CenterFfyciarCBUFRCNPBV9348-85-21 14:58:00 Test Item Value Reference Range Interpretation Comments RBC (test code = RBC) 4.29 4.20-5.40 [facility] AND [id number] 14:58:00 Test Item Value Reference Range Interpretation Comments UA Urobilinogen (test code = UA <=1.0 mg/dL 0.1-1.0 Urobilinogen) [facility] AND [id number] 14:58:00 Test Item Value Reference Range Interpretation Comments UA Color (test code = Yellow *NA*(09/28/15 UA Color) 9:58 AM) [facility] AND [id number] 14:58:00 Test Item Value Reference Range Interpretation Comments UA Spec Grav (test code = UA Spec Grav) 1.020 [facility] AND [id number] 14:58:00 Test Item Value Reference Range Interpretation Comments UA Turbidity (test code = Clear (09/28/15 9:58 UA Turbidity) AM) [facility] AND [id number] 14:58:00 Test Item Value Reference Range Interpretation Comments UA pH (test code = UA pH) 6.0 5.0-8.0 [facility] AND [id number] 14:58:00 Test Item Value Reference Range Interpretation Comments UA Protein (test code = UA Negative mg/dL Protein) [facility] AND [id number] 14:58:00 Test Item Value Reference Range Interpretation Comments UA Glucose (test code = UA Negative mg/dL Glucose) [facility] AND [id number] 14:58:00 Test Item Value Reference Range Interpretation Comments UA Bili (test code = Negative *NA*(09/28/15 UA Bili) 9:58 AM) [facility] AND [id number] 14:58:00 Test Item Value Reference Range Interpretation Comments UA Ketones (test code = UA Negative mg/dL Ketones) [facility] AND [id number] 14:58:00 Test Item Value Reference Range Interpretation Comments UA Leuk Est (test code Small *ABN*(09/28/15 = UA Leuk Est) 9:58 AM) [facility] AND [id number] 14:58:00 Test Item Value Reference Range Interpretation Comments UA Nitrite (test code Positive *ABN*(09/28/15 = UA Nitrite) 9:58 AM) [facility] AND [id number] 14:58:00 Test Item Value Reference Range Interpretation Comments UA Blood (test code = Negative (09/28/15 9:58 UA Blood) AM) [facility] AND [id number] 14:58:00 Test Item Value Reference Range Interpretation Comments UA Sq Epi (test code = UA Sq Occasional /LPF Epi) [facility] AND [id number] 14:58:00 Test Item Value Reference Range Interpretation Comments UA WBC (test code = 34 See_Comment [Automa son message] The UA WBC) system which ge nerated this result transmit son reference range : <=5. The reference range was not used to interpr et this result as nikki l/abnormal. [facility] AND [id number] 14:58:00 Test Item Value Reference Range Interpretation Comments UA RBC (test code = 1 See_Comment [Automa osn message] The UA RBC) system which ge nerated this result transmit son reference range : <=2. The reference range was not used to interpr et this result as nikki l/abnormal. [facility] AND [id number] 14:58:00 Test Item Value Reference Range Interpretation Comments UA Bacteria (test code = UA Moderate /HPF Bacteria) [facility] AND [id number] 14:58:00 Test Item Value Reference Range Interpretation Comments UA Mucus (test code = UA Mucus) Few [facility] [id number] 14:52:00 Test Item Value Reference Range Interpretation Comments RBC product (test code Product available = RBC product) 1(09/28/15 9:52 AM) [facility] [id number] 14:52:00 Test Item Value Reference Range Interpretation Comments RBC product (test code Product available = RBC product) 1(09/28/15 9:52 AM) [facility] [id number] 14:52:00 Test Item Value Reference Range Interpretation Comments RBC product (test code Product available = RBC product) 1(09/28/15 9:52 AM) [facility] [id number] 14:52:00 Test Item Value Reference Range Interpretation Comments RBC product (test code Product available = RBC product) 1(09/28/15 9:52 AM) [facility] [id number] 21:37:00 Test Item Value Reference Range Interpretation Comments UA Bacteria (test code = UA Occasional /HPF Bacteria) [facility] AND [id number] 21:37:00 Test Item Value Reference Range Interpretation Comments UA Color (test code = UA Color) Ltyellow [facility] AND [id number] 21:37:00 Test Item Value Reference Range Interpretation Comments UA Urobilinogen (test code = UA <=1.0 mg/dL 0.1-1.0 Urobilinogen) [facility] AND [id number] 21:37:00 Test Item Value Reference Range Interpretation Comments UA Leuk Est (test Negative (07/07/15 3:37 code = UA Leuk Est) PM) [facility] AND [id number] 21:37:00 Test Item Value Reference Range Interpretation Comments UA Sq Epi (test code = UA Sq Epi) Many /LPF [facility] AND [id number] 21:37:00 Test Item Value Reference Range Interpretation Comments UA WBC (test code = 3 See_Comment [Automa son message] The UA WBC) system which ge nerated this result transmit son reference range : <=5. The reference range was not used to interpr et this result as nikki l/abnormal. [facility] [id number] 21:37:00 Test Item Value Reference Range Interpretation Comments UA RBC (test code = 1 See_Comment [Automa son message] The UA RBC) system which ge nerated this result transmit son reference range : <=2. The reference range was not used to interpr et this result as nikki l/abnormal. [facility] [id number] 21:37:00 Test Item Value Reference Range Interpretation Comments UA Glucose (test code = UA Negative mg/dL Glucose) [facility] AND [id number] 21:37:00 Test Item Value Reference Range Interpretation Comments UA Blood (test code = Small *ABN*(07/07/15 UA Blood) 3:37 PM) [facility] AND [id number] 21:37:00 Test Item Value Reference Range Interpretation Comments UA Nitrite (test code Negative (07/07/15 3:37 = UA Nitrite) PM) [facility] AND [id number] 21:37:00 Test Item Value Reference Range Interpretation Comments UA Ketones (test code = UA Negative mg/dL Ketones) [facility] AND [id number] 21:37:00 Test Item Value Reference Range Interpretation Comments UA Bili (test code = Negative *NA*(07/07/15 UA Bili) 3:37 PM) [facility] AND [id number] 21:37:00 Test Item Value Reference Range Interpretation Comments UA Protein (test code = UA Negative mg/dL Protein) [facility] AND [id number] 21:37:00 Test Item Value Reference Range Interpretation Comments UA pH (test code = UA pH) 6.0 5.0-8.0 [facility] AND [id number] 21:37:00 Test Item Value Reference Range Interpretation Comments UA Turbidity (test code Slight *ABN*(07/07/15 = UA Turbidity) 3:37 PM) [facility] AND [id number] 21:37:00 Test Item Value Reference Range Interpretation Comments UA Spec Grav (test code = UA Spec Grav) 1.014 [facility] AND [id number] 21:37:00 Test Item Value Reference Range Interpretation Comments UA Bacteria (test code = UA Occasional /HPF Bacteria) [facility] AND [id number] 21:37:00 Test Item Value Reference Range Interpretation Comments UA Color (test code = UA Color) Ltyellow [facility] AND [id number] 21:37:00 Test Item Value Reference Range Interpretation Comments UA Urobilinogen (test code = UA <=1.0 mg/dL 0.1-1.0 Urobilinogen) [facility] AND [id number] 21:37:00 Test Item Value Reference Range Interpretation Comments UA Leuk Est (test Negative (07/07/15 3:37 code = UA Leuk Est) PM) [facility] AND [id number] 21:37:00 Test Item Value Reference Range Interpretation Comments UA Sq Epi (test code = UA Sq Epi) Many /LPF [facility] AND [id number] 21:37:00 Test Item Value Reference Range Interpretation Comments UA WBC (test code = 3 See_Comment [Automa son message] The UA WBC) system which ge nerated this result transmit son reference range : <=5. The reference range was not used to interpr et this result as nikki l/abnormal. [facility] AND [id number] 21:37:00 Test Item Value Reference Range Interpretation Comments UA RBC (test code = 1 See_Comment [Automa son message] The UA RBC) system which ge nerated this result transmit son reference range : <=2. The reference range was not used to interpr et this result as nikki l/abnormal. [facility] AND [id number] 21:37:00 Test Item Value Reference Range Interpretation Comments UA Glucose (test code = UA Negative mg/dL Glucose) [facility] AND [id number] 21:37:00 Test Item Value Reference Range Interpretation Comments UA Blood (test code = Small *ABN*(07/07/15 UA Blood) 3:37 PM) [facility] AND [id number] 21:37:00 Test Item Value Reference Range Interpretation Comments UA Nitrite (test code Negative (07/07/15 3:37 = UA Nitrite) PM) [facility] AND [id number] 21:37:00 Test Item Value Reference Range Interpretation Comments UA Ketones (test code = UA Negative mg/dL Ketones) [facility] AND [id number] 21:37:00 Test Item Value Reference Range Interpretation Comments UA Bili (test code = Negative *NA*(07/07/15 UA Bili) 3:37 PM) [facility] AND [id number] 21:37:00 Test Item Value Reference Range Interpretation Comments UA Protein (test code = UA Negative mg/dL Protein) [facility] AND [id number] 21:37:00 Test Item Value Reference Range Interpretation Comments UA pH (test code = UA pH) 6.0 5.0-8.0 [facility] AND [id number] 21:37:00 Test Item Value Reference Range Interpretation Comments UA Turbidity (test code Slight *ABN*(07/07/15 = UA Turbidity) 3:37 PM) [facility] AND [id number] 21:37:00 Test Item Value Reference Range Interpretation Comments UA Spec Grav (test code = UA Spec Grav) 1.014 [facility] AND [id number] 21:37:00 Test Item Value Reference Range Interpretation Comments UA Bacteria (test code = UA Occasional /HPF Bacteria) [facility] AND [id number] 21:37:00 Test Item Value Reference Range Interpretation Comments UA Color (test code = UA Color) Ltyellow [facility] AND [id number] 21:37:00 Test Item Value Reference Range Interpretation Comments UA Urobilinogen (test code = UA <=1.0 mg/dL 0.1-1.0 Urobilinogen) [facility] AND [id number] 21:37:00 Test Item Value Reference Range Interpretation Comments UA Leuk Est (test Negative (07/07/15 3:37 code = UA Leuk Est) PM) [facility] AND [id number] 21:37:00 Test Item Value Reference Range Interpretation Comments UA Sq Epi (test code = UA Sq Epi) Many /LPF [facility] AND [id number] 21:37:00 Test Item Value Reference Range Interpretation Comments UA WBC (test code = 3 See_Comment [Automa son message] The UA WBC) system which ge nerated this result transmit son reference range : <=5. The reference range was not used to interpr et this result as nikki l/abnormal. [facility] AND [id number] 21:37:00 Test Item Value Reference Range Interpretation Comments UA RBC (test code = 1 See_Comment [Automa son message] The UA RBC) system which ge nerated this result transmit sno reference range : <=2. The reference range was not used to interpr et this result as nikki l/abnormal. [facility] AND [id number] 21:37:00 Test Item Value Reference Range Interpretation Comments UA Glucose (test code = UA Negative mg/dL Glucose) [facility] AND [id number] 21:37:00 Test Item Value Reference Range Interpretation Comments UA Blood (test code = Small *ABN*(07/07/15 UA Blood) 3:37 PM) [facility] AND [id number] 21:37:00 Test Item Value Reference Range Interpretation Comments UA Nitrite (test code Negative (07/07/15 3:37 = UA Nitrite) PM) [facility] AND [id number] 21:37:00 Test Item Value Reference Range Interpretation Comments UA Ketones (test code = UA Negative mg/dL Ketones) [facility] AND [id number] 21:37:00 Test Item Value Reference Range Interpretation Comments UA Bili (test code = Negative *NA*(07/07/15 UA Bili) 3:37 PM) [facility] AND [id number] 21:37:00 Test Item Value Reference Range Interpretation Comments UA Protein (test code = UA Negative mg/dL Protein) [facility] AND [id number] 21:37:00 Test Item Value Reference Range Interpretation Comments UA pH (test code = UA pH) 6.0 5.0-8.0 [facility] AND [id number] 21:37:00 Test Item Value Reference Range Interpretation Comments UA Turbidity (test code Slight *ABN*(07/07/15 = UA Turbidity) 3:37 PM) [facility] AND [id number] 21:37:00 Test Item Value Reference Range Interpretation Comments UA Spec Grav (test code = UA Spec Grav) 1.014 [facility] AND [id number] 21:37:00 Test Item Value Reference Range Interpretation Comments UA Bacteria (test code = UA Occasional /HPF Bacteria) [facility] AND [id number] 21:37:00 Test Item Value Reference Range Interpretation Comments UA Color (test code = UA Color) Ltyellow [facility] AND [id number] 21:37:00 Test Item Value Reference Range Interpretation Comments UA Urobilinogen (test code = UA <=1.0 mg/dL 0.1-1.0 Urobilinogen) [facility] AND [id number] 21:37:00 Test Item Value Reference Range Interpretation Comments UA Leuk Est (test Negative (07/07/15 3:37 code = UA Leuk Est) PM) [facility] AND [id number] 21:37:00 Test Item Value Reference Range Interpretation Comments UA Sq Epi (test code = UA Sq Epi) Many /LPF [facility] AND [id number] 21:37:00 Test Item Value Reference Range Interpretation Comments UA WBC (test code = 3 See_Comment [Automa son message] The UA WBC) system which ge nerated this result transmit son reference range : <=5. The reference range was not used to interpr et this result as nikki l/abnormal. [facility] AND [id number] 21:37:00 Test Item Value Reference Range Interpretation Comments UA RBC (test code = 1 See_Comment [Automa son message] The UA RBC) system which ge nerated this result transmit son reference range : <=2. The reference range was not used to interpr et this result as nikki l/abnormal. [facility] AND [id number] 21:37:00 Test Item Value Reference Range Interpretation Comments UA Glucose (test code = UA Negative mg/dL Glucose) [facility] AND [id number] 21:37:00 Test Item Value Reference Range Interpretation Comments UA Blood (test code = Small *ABN*(07/07/15 UA Blood) 3:37 PM) [facility] AND [id number] 21:37:00 Test Item Value Reference Range Interpretation Comments UA Nitrite (test code Negative (07/07/15 3:37 = UA Nitrite) PM) [facility] AND [id number] 21:37:00 Test Item Value Reference Range Interpretation Comments UA Ketones (test code = UA Negative mg/dL Ketones) [facility] AND [id number] 21:37:00 Test Item Value Reference Range Interpretation Comments UA Bili (test code = Negative *NA*(07/07/15 UA Bili) 3:37 PM) [facility] AND [id number] 21:37:00 Test Item Value Reference Range Interpretation Comments UA Protein (test code = UA Negative mg/dL Protein) [facility] AND [id number] 21:37:00 Test Item Value Reference Range Interpretation Comments UA pH (test code = UA pH) 6.0 5.0-8.0 [facility] AND [id number] 21:37:00 Test Item Value Reference Range Interpretation Comments UA Turbidity (test code Slight *ABN*(07/07/15 = UA Turbidity) 3:37 PM) [facility] AND [id number] 21:37:00 Test Item Value Reference Range Interpretation Comments UA Spec Grav (test code = UA Spec Grav) 1.014 [facility]2016-02-24 10:40:00 Test Item Value Reference Range Interpretation Comments eGFR (test code = eGFR) 60 [facility]2016-02-24 10:40:00 Test Item Value Reference Range Interpretation Comments Potassium Lvl (test code = Potassium 4.1 3.5-5.1 Lvl) [facility]2016-02-24 10:40:00 Test Item Value Reference Range Interpretation Comments BUN (test code = BUN) 24 7- [facility]2016-02-24 10:40:00 Test Item Value Reference Range Interpretation Comments Creatinine Lvl (test code = Creatinine 0.96 0.50-1.40 Lvl) [facility]2016-02-24 10:40:00 Test Item Value Reference Range Interpretation Comments Glucose Lvl (test code = Glucose Lvl) 152 70-99 [facility]2016-02-24 10:40:00 Test Item Value Reference Range Interpretation Comments Sodium Lvl (test code = Sodium Lvl) 139 135-145 [facility]2016-02-24 10:40:00 Test Item Value Reference Range Interpretation Comments CO2 (test code = CO2) 23 24-32 [facility]2016-02-24 10:40:00 Test Item Value Reference Range Interpretation Comments Calcium Lvl (test code = Calcium Lvl) 8.4 8.5-10.5 [facility]2016-02-24 10:40:00 Test Item Value Reference Range Interpretation Comments Chloride Lvl (test code = Chloride Lvl) 107 95-109 [facility]2016-02-24 10:40:00 Test Item Value Reference Range Interpretation Comments AGAP (test code = AGAP) 13.1 10.0-20.0 [id number] 10:40:00 Test Item Value Reference Range Interpretation Comments Monocytes (test code = Monocytes) 6.7 2.0-12.0 [facility] [id number] 10:40:00 Test Item Value Reference Range Interpretation Comments Lymphocytes # (test code = Lymphocytes 1.7 1.0-5.5 #) [facility] [id number] 10:40:00 Test Item Value Reference Range Interpretation Comments Segs-Bands # (test code = Segs-Bands #) 6.1 1.5-8.1 [facility] [id number] 10:40:00 Test Item Value Reference Range Interpretation Comments Basophils (test code = 1.0 See_Comment [Aut omated message] The Basophils) system which ge nerated this result tra nsmitted reference range : <=1.0. The reference r bill was not used to int erpret this result as normal/abnormal . [facility] [id number] 10:40:00 Test Item Value Reference Range Interpretation Comments Eosinophils (test code = 1.6 See_Comment [A utomated message] The Eosinophils) system which ge nerated this result tra nsmitted reference range : <=4.0. The reference r bill was not used to int erpret this result as normal/abnormal . [facility] [id number] 10:40:00 Test Item Value Reference Range Interpretation Comments Eosinophils # (test code 0.1 See_Comment [A utomated message] The = Eosinophils #) system [facility] h generated this result tra nsmitted reference range : <=0.5. The reference r bill was not used to int erpret this result as normal/abnormal . [facility] [id number] 10:40:00 Test Item Value Reference Range Interpretation Comments Monocytes # (test code 0.6 See_Comment [Aut omated message] The = Monocytes #) system which generated this result tra nsmitted reference range : <=0.8. The reference r bill was not used to int erpret this result as normal/abnormal . [facility] [id number] 10:40:00 Test Item Value Reference Range Interpretation Comments Basophils # (test code 0.1 See_Comment [Aut omated message] The = Basophils #) system which generated this result tra nsmitted reference range : <=0.2. The reference r bill was not used to int erpret this result as normal/abnormal . [facility] Cent[id number] 10:40:00 Test Item Value Reference Range Interpretation Comments Lymphocytes (test code = Lymphocytes) 19.3 20.0-40.0 [facility] [id number] 10:40:00 Test Item Value Reference Range Interpretation Comments Segs (test code = Segs) 71.4 45.0-75.0 [facility] [id number] 10:40:00 Test Item Value Reference Range Interpretation Comments MPV (test code = MPV) 9.1 7.4-10.4 [facility] C[id number] 10:40:00 Test Item Value Reference Range Interpretation Comments RDW (test code = RDW) 13.1 11.5-14.5 [facility] Cent[id number] 10:40:00 Test Item Value Reference Range Interpretation Comments MCHC (test code = MCHC) 34.1 32.0-36.0 [facility] [id number] 10:40:00 Test Item Value Reference Range Interpretation Comments MCH (test code = MCH) 30.6 pg 27.0-31.0 [facility] CenterPuohinlJKOZZJJWYH9234-26-07 10:40:00 Test Item Value Reference Range Interpretation Comments Platelet (test code = Platelet) 213 133-450 [facility] [id number] 10:40:00 Test Item Value Reference Range Interpretation Comments WBC (test code = WBC) 8.6 3.7-10.4 [facility] Cent[id number] 10:40:00 Test Item Value Reference Range Interpretation Comments Hct (test code = Hct) 36.9 36.0-48.0 [facility] Cent[id number] 10:40:00 Test Item Value Reference Range Interpretation Comments Hgb (test code = Hgb) 12.6 12.0-16.0 [facility] CenterBtmfxebVIUNKVZYVW0720-60-07 10:40:00 Test Item Value Reference Range Interpretation Comments RBC (test code = RBC) 4.12 4.20-5.40 [facility] Cent[id number] 10:40:00 Test Item Value Reference Range Interpretation Comments MCV (test code = MCV) 89.7 80.0-98.0 [facility]2016-02-24 10:40:00 Test Item Value Reference Range Interpretation Comments eGFR (test code = eGFR) 60 [facility]2016-02-24 10:40:00 Test Item Value Reference Range Interpretation Comments Potassium Lvl (test code = Potassium 4.1 3.5-5.1 Lvl) [facility]2016-02-24 10:40:00 Test Item Value Reference Range Interpretation Comments BUN (test code = BUN) 24 7-22 [facility]2016-02-24 10:40:00 Test Item Value Reference Range Interpretation Comments Creatinine Lvl (test code = Creatinine 0.96 0.50-1.40 Lvl) [facility]2016-02-24 10:40:00 Test Item Value Reference Range Interpretation Comments Glucose Lvl (test code = Glucose Lvl) 152 70-99 [facility]2016-02-24 10:40:00 Test Item Value Reference Range Interpretation Comments Sodium Lvl (test code = Sodium Lvl) 139 135-145 [facility]2016-02-24 10:40:00 Test Item Value Reference Range Interpretation Comments CO2 (test code = CO2) 23 24-32 [facility]2016-02-24 10:40:00 Test Item Value Reference Range Interpretation Comments Calcium Lvl (test code = Calcium Lvl) 8.4 8.5-10.5 [facility]2016-02-24 10:40:00 Test Item Value Reference Range Interpretation Comments Chloride Lvl (test code = Chloride Lvl) 107 95-109 [facility]2016-02-24 10:40:00 Test Item Value Reference Range Interpretation Comments AGAP (test code = AGAP) 13.1 10.0-20.0 [facility] C[id number] 10:40:00 Test Item Value Reference Range Interpretation Comments Monocytes (test code = Monocytes) 6.7 2.0-12.0 [facility] CenterZplddghYKGPWGZJBF1518-88-84 10:40:00 Test Item Value Reference Range Interpretation Comments Lymphocytes # (test code = Lymphocytes 1.7 1.0-5.5 #) [facility] [id number] 10:40:00 Test Item Value Reference Range Interpretation Comments Segs-Bands # (test code = Segs-Bands #) 6.1 1.5-8.1 [facility] CenterFuajzauZSOJYFEJUR6492-98-74 10:40:00 Test Item Value Reference Range Interpretation Comments Basophils (test code = 1.0 See_Comment [Aut omated message] The Basophils) system which ge nerated this result tra nsmitted reference range : <=1.0. The reference r bill was not used to int erpret this result as normal/abnormal . [facility] CenterCyohgdqOLQFZTTZWQ1708-45-04 10:40:00 Test Item Value Reference Range Interpretation Comments Eosinophils (test code = 1.6 See_Comment [A utomated message] The Eosinophils) system which ge nerated this result tra nsmitted reference range : <=4.0. The reference r bill was not used to int erpret this result as normal/abnormal . [facility] CenterVleqttrEGIXJMJCEW6674-15-89 10:40:00 Test Item Value Reference Range Interpretation Comments Eosinophils # (test code 0.1 See_Comment [A utomated message] The = Eosinophils #) system whic h generated this result tra nsmitted reference range : <=0.5. The reference r bill was not used to int erpret this result as normal/abnormal . [facility] CenterRedxhxrHDMSRXTSLV1145-03-63 10:40:00 Test Item Value Reference Range Interpretation Comments Monocytes # (test code 0.6 See_Comment [Aut omated message] The = Monocytes #) system which generated this result tra nsmitted reference range : <=0.8. The reference r bill was not used to int erpret this result as normal/abnormal . [facility] CenterTmzcyjyDATPPAQJCU5222-45-81 10:40:00 Test Item Value Reference Range Interpretation Comments Basophils # (test code 0.1 See_Comment [Aut omated message] The = Basophils #) system which generated this result tra nsmitted reference range : <=0.2. The reference r bill was not used to int erpret this result as normal/abnormal . [facility] CenterTjqndohKWDLSRWDXT8588-15-70 10:40:00 Test Item Value Reference Range Interpretation Comments Lymphocytes (test code = Lymphocytes) 19.3 20.0-40.0 [facility] CenterRgzfcxaJZBNIDCJUK5612-85-87 10:40:00 Test Item Value Reference Range Interpretation Comments Segs (test code = Segs) 71.4 45.0-75.0 [facility] CenterJlfeihyCGZBVWODAJ9320-94-26 10:40:00 Test Item Value Reference Range Interpretation Comments MPV (test code = MPV) 9.1 7.4-10.4 [facility] CenterNcrfvqtBWZECKYMCB3273-95-42 10:40:00 Test Item Value Reference Range Interpretation Comments RDW (test code = RDW) 13.1 11.5-14.5 [facility] CenterYrqrvxqLTTFCVLXWV0912-14-76 10:40:00 Test Item Value Reference Range Interpretation Comments MCHC (test code = MCHC) 34.1 32.0-36.0 [facility] CenterYqblmftPWFVPDWDOH9844-28-58 10:40:00 Test Item Value Reference Range Interpretation Comments MCH (test code = MCH) 30.6 pg 27.0-31.0 [facility] CenterWvznokrJWMPZDVOUF9562-59-46 10:40:00 Test Item Value Reference Range Interpretation Comments Platelet (test code = Platelet) 213 133-450 [facility] [facility]AgknbriXRYACNAMWA6335-81-55 10:40:00 Test Item Value Reference Range Interpretation Comments WBC (test code = WBC) 8.6 3.7-10.4 [facility] CenterFcuoeojNNJOYVGAPD5623-02-23 10:40:00 Test Item Value Reference Range Interpretation Comments Hct (test code = Hct) 36.9 36.0-48.0 [facility] CenterWjtdxjbYODOCUXAAM1601-92-49 10:40:00 Test Item Value Reference Range Interpretation Comments Hgb (test code = Hgb) 12.6 12.0-16.0 [facility] CenterLhpebhmRUCPSKXGAF7996-88-02 10:40:00 Test Item Value Reference Range Interpretation Comments RBC (test code = RBC) 4.12 4.20-5.40 [facility] CenterMdxopiaCQJAUJCWCL4589-23-51 10:40:00 Test Item Value Reference Range Interpretation Comments MCV (test code = MCV) 89.7 80.0-98.0 [facility] OAEPI0822-02-51 10:40:00 Test Item Value Reference Range Interpretation Comments eGFR (test code = eGFR) 60 [facility] CENTERDHTEB8729-01-27 10:40:00 Test Item Value Reference Range Interpretation Comments Potassium Lvl (test code = Potassium 4.1 3.5-5.1 Lvl) [facility]2016-02-24 10:40:00 Test Item Value Reference Range Interpretation Comments BUN (test code = BUN) 24 7-22 [facility]2016-02-24 10:40:00 Test Item Value Reference Range Interpretation Comments Creatinine Lvl (test code = Creatinine 0.96 0.50-1.40 Lvl) [facility]2016-02-24 10:40:00 Test Item Value Reference Range Interpretation Comments Glucose Lvl (test code = Glucose Lvl) 152 70-99 [facility]2016-02-24 10:40:00 Test Item Value Reference Range Interpretation Comments Sodium Lvl (test code = Sodium Lvl) 139 135-145 [facility]2016-02-24 10:40:00 Test Item Value Reference Range Interpretation Comments CO2 (test code = CO2) 23 24-32 [facility]2016-02-24 10:40:00 Test Item Value Reference Range Interpretation Comments Calcium Lvl (test code = Calcium Lvl) 8.4 8.5-10.5 [facility]2016-02-24 10:40:00 Test Item Value Reference Range Interpretation Comments Chloride Lvl (test code = Chloride Lvl) 107 95-109 [facility]2016-02-24 10:40:00 Test Item Value Reference Range Interpretation Comments AGAP (test code = AGAP) 13.1 10.0-20.0 [facility] CenterBheiqhiEMXIMECMSZ9754-71-72 10:40:00 Test Item Value Reference Range Interpretation Comments Monocytes (test code = Monocytes) 6.7 2.0-12.0 [facility] CenterGrpdyzzBTIQVIJOED7498-96-83 10:40:00 Test Item Value Reference Range Interpretation Comments Lymphocytes # (test code = Lymphocytes 1.7 1.0-5.5 #) [facility] CenterGctgrtgRAFUPLCBTR2336-77-03 10:40:00 Test Item Value Reference Range Interpretation Comments Segs-Bands # (test code = Segs-Bands #) 6.1 1.5-8.1 [facility] CenterJsohavdULBETLTPQL4568-75-73 10:40:00 Test Item Value Reference Range Interpretation Comments Basophils (test code = 1.0 See_Comment [Aut omated message] The Basophils) system which ge nerated this result tra nsmitted reference range : <=1.0. The reference r bill was not used to int erpret this result as normal/abnormal . [facility] CenterAsabzttGJGDXOZKPM5211-79-91 10:40:00 Test Item Value Reference Range Interpretation Comments Eosinophils (test code = 1.6 See_Comment [A utomated message] The Eosinophils) system which ge nerated this result tra nsmitted reference range : <=4.0. The reference r bill was not used to int erpret this result as normal/abnormal . [facility] CenterWynqgacBXVZOJRZQE0579-65-95 10:40:00 Test Item Value Reference Range Interpretation Comments Eosinophils # (test code 0.1 See_Comment [A utomated message] The = Eosinophils #) system whic h generated this result tra nsmitted reference range : <=0.5. The reference r bill was not used to int erpret this result as normal/abnormal . [facility] CenterJmmdjsrNIGHMIHQJP0854-81-44 10:40:00 Test Item Value Reference Range Interpretation Comments Monocytes # (test code 0.6 See_Comment [Aut omated message] The = Monocytes #) system which generated this result tra nsmitted reference range : <=0.8. The reference r bill was not used to int erpret this result as normal/abnormal . [facility] CenterJmpmqqiYUCGSXEWEA7885-30-67 10:40:00 Test Item Value Reference Range Interpretation Comments Basophils # (test code 0.1 See_Comment [Aut omated message] The = Basophils #) system which generated this result tra nsmitted reference range : <=0.2. The reference r bill was not used to int erpret this result as normal/abnormal . [facility] CenterBbskkrnIZUMWVMDXA5065-49-18 10:40:00 Test Item Value Reference Range Interpretation Comments Lymphocytes (test code = Lymphocytes) 19.3 20.0-40.0 [facility] CenterVrwnmmyFGYWHCKHSD2132-09-38 10:40:00 Test Item Value Reference Range Interpretation Comments Segs (test code = Segs) 71.4 45.0-75.0 [facility] CenterSpzduxzNONEPGTCSC1018-82-87 10:40:00 Test Item Value Reference Range Interpretation Comments MPV (test code = MPV) 9.1 7.4-10.4 [facility] CenterMkfkqfiKPEIUGSIZG3229-58-56 10:40:00 Test Item Value Reference Range Interpretation Comments RDW (test code = RDW) 13.1 11.5-14.5 [facility] CenterMltcbxeNWRWUBBEBE0094-96-10 10:40:00 Test Item Value Reference Range Interpretation Comments MCHC (test code = MCHC) 34.1 32.0-36.0 [facility] CenterQicbdbnEFTHTZXZDE2627-22-31 10:40:00 Test Item Value Reference Range Interpretation Comments MCH (test code = MCH) 30.6 pg 27.0-31.0 [facility] CenterVhrugjgOHPEEFUCHG1577-31-17 10:40:00 Test Item Value Reference Range Interpretation Comments Platelet (test code = Platelet) 213 133-450 [facility] CenterCskhgkoLGIBOTZDRR1661-64-63 10:40:00 Test Item Value Reference Range Interpretation Comments WBC (test code = WBC) 8.6 3.7-10.4 [facility] CenterIzwdrbsZLWDDRIEDE6844-34-72 10:40:00 Test Item Value Reference Range Interpretation Comments Hct (test code = Hct) 36.9 36.0-48.0 [facility] CenterIxrbxhiCUCBONLOAN9471-06-54 10:40:00 Test Item Value Reference Range Interpretation Comments Hgb (test code = Hgb) 12.6 12.0-16.0 [facility] CenterTuhrkbuFIARJSRPYR6331-98-34 10:40:00 Test Item Value Reference Range Interpretation Comments RBC (test code = RBC) 4.12 4.20-5.40 [facility] CenterBmmdxmdEGSNSDJIDB4422-69-50 10:40:00 Test Item Value Reference Range Interpretation Comments MCV (test code = MCV) 89.7 80.0-98.0 [facility]2016-02-24 10:40:00 Test Item Value Reference Range Interpretation Comments eGFR (test code = eGFR) 60 [facility]2016-02-24 10:40:00 Test Item Value Reference Range Interpretation Comments Potassium Lvl (test code = Potassium 4.1 3.5-5.1 Lvl) [facility]2016-02-24 10:40:00 Test Item Value Reference Range Interpretation Comments BUN (test code = BUN) 24 7-22 [facility]2016-02-24 10:40:00 Test Item Value Reference Range Interpretation Comments Creatinine Lvl (test code = Creatinine 0.96 0.50-1.40 Lvl) [facility]2016-02-24 10:40:00 Test Item Value Reference Range Interpretation Comments Glucose Lvl (test code = Glucose Lvl) 152 70-99 [facility]2016-02-24 10:40:00 Test Item Value Reference Range Interpretation Comments Sodium Lvl (test code = Sodium Lvl) 139 135-145 [facility]2016-02-24 10:40:00 Test Item Value Reference Range Interpretation Comments CO2 (test code = CO2) 23 24-32 [facility]2016-02-24 10:40:00 Test Item Value Reference Range Interpretation Comments Calcium Lvl (test code = Calcium Lvl) 8.4 8.5-10.5 [facility]2016-02-24 10:40:00 Test Item Value Reference Range Interpretation Comments Chloride Lvl (test code = Chloride Lvl) 107 95-109 [facility]2016-02-24 10:40:00 Test Item Value Reference Range Interpretation Comments AGAP (test code = AGAP) 13.1 10.0-20.0 [facility] CenterDssiwfrKHJOIRGPNZ0675 10:40:00 Test Item Value Reference Range Interpretation Comments Monocytes (test code = Monocytes) 6.7 2.0-12.0 [facility] CenterGyrrolkZHFMTLWZZN7780-09-84 10:40:00 Test Item Value Reference Range Interpretation Comments Lymphocytes # (test code = Lymphocytes 1.7 1.0-5.5 #) [facility] CenterWubozgnUGTCUUXMUW9444-17-03 10:40:00 Test Item Value Reference Range Interpretation Comments Segs-Bands # (test code = Segs-Bands #) 6.1 1.5-8.1 [facility] CenterWenntxlJIEXPJMKIB1355-10-03 10:40:00 Test Item Value Reference Range Interpretation Comments Basophils (test code = 1.0 See_Comment [Aut omated message] The Basophils) system which ge nerated this result tra nsmitted reference range : <=1.0. The reference r bill was not used to int erpret this result as normal/abnormal . [facility] CenterXwqdzqwCCHJNIINIE0749-85-12 10:40:00 Test Item Value Reference Range Interpretation Comments Eosinophils (test code = 1.6 See_Comment [A utomated message] The Eosinophils) system which ge nerated this result tra nsmitted reference range : <=4.0. The reference r bill was not used to int erpret this result as normal/abnormal . [facility] CenterFevzoatKYXISVLZJJ5301-53-09 10:40:00 Test Item Value Reference Range Interpretation Comments Eosinophils # (test code 0.1 See_Comment [A utomated message] The = Eosinophils #) system whic h generated this result tra nsmitted reference range : <=0.5. The reference r bill was not used to int erpret this result as normal/abnormal . [facility] CenterJsfxhpcJPMPLSNNTN3946-93-32 10:40:00 Test Item Value Reference Range Interpretation Comments Monocytes # (test code 0.6 See_Comment [Aut omated message] The = Monocytes #) system which generated this result tra nsmitted reference range : <=0.8. The reference r bill was not used to int erpret this result as normal/abnormal . [facility] CenterFarhoxgODOZKMESSY4870-53-94 10:40:00 Test Item Value Reference Range Interpretation Comments Basophils # (test code 0.1 See_Comment [Aut omated message] The = Basophils #) system which generated this result tra nsmitted reference range : <=0.2. The reference r bill was not used to int erpret this result as normal/abnormal . [facility] CenterTnxmowdFLWONTRYFA1621-46-10 10:40:00 Test Item Value Reference Range Interpretation Comments Lymphocytes (test code = Lymphocytes) 19.3 20.0-40.0 [facility] CenterUjpbmigKDNARQZMFW3066-44-93 10:40:00 Test Item Value Reference Range Interpretation Comments Segs (test code = Segs) 71.4 45.0-75.0 [facility] CenterWyljfrcCMRVZWVDJY1875-34-98 10:40:00 Test Item Value Reference Range Interpretation Comments MPV (test code = MPV) 9.1 7.4-10.4 [facility] CenterHhtawpxONARRLNPXJ2610-92-91 10:40:00 Test Item Value Reference Range Interpretation Comments RDW (test code = RDW) 13.1 11.5-14.5 [facility] CenterJpvibakXHPWDHYOKE3709-00-53 10:40:00 Test Item Value Reference Range Interpretation Comments MCHC (test code = MCHC) 34.1 32.0-36.0 [facility] CenterXpunzmwEKQVLLGZZI1489-96-80 10:40:00 Test Item Value Reference Range Interpretation Comments MCH (test code = MCH) 30.6 pg 27.0-31.0 [facility] CenterFmijsrrLMBMRSJWIE1476-44-89 10:40:00 Test Item Value Reference Range Interpretation Comments Platelet (test code = Platelet) 213 133-450 [facility] CenterEytvrcoETSLORMLHJ2605-02-92 10:40:00 Test Item Value Reference Range Interpretation Comments WBC (test code = WBC) 8.6 3.7-10.4 [facility] CenterRnipquaGOSIZCNQTH0906-42-30 10:40:00 Test Item Value Reference Range Interpretation Comments Hct (test code = Hct) 36.9 36.0-48.0 [facility] CenterAkcjawpIYUEAUZRVG0779-67-20 10:40:00 Test Item Value Reference Range Interpretation Comments Hgb (test code = Hgb) 12.6 12.0-16.0 [facility] CenterGxgedhgVUIZUCBHRB4223-57-80 10:40:00 Test Item Value Reference Range Interpretation Comments RBC (test code = RBC) 4.12 4.20-5.40 [facility] CenterHorxymwVWEGUSONUM5856-10-66 10:40:00 Test Item Value Reference Range Interpretation Comments MCV (test code = MCV) 89.7 80.0-98.0 [facility]2016-02-24 05:13:00 Test Item Value Reference Range Interpretation Comments Creatinine Lvl (test code = Creatinine 1.05 0.50-1.40 Lvl) [facility]2016-02-24 05:13:00 Test Item Value Reference Range Interpretation Comments eGFR (test code = eGFR) 54 [facility] CenterQwxbwgjIYMYOLPJUW7361-01-37 05:13:00 Test Item Value Reference Range Interpretation Comments Platelet (test code = Platelet) 210 133-450 [facility]2016-02-24 05:13:00 Test Item Value Reference Range Interpretation Comments Creatinine Lvl (test code = Creatinine 1.05 0.50-1.40 Lvl) [facility]2016-02-24 05:13:00 Test Item Value Reference Range Interpretation Comments eGFR (test code = eGFR) 54 [facility] CenterVsiavwwDIJLLHBMSM1331-42-56 05:13:00 Test Item Value Reference Range Interpretation Comments Platelet (test code = Platelet) 210 133-450 [facility] VWORJ6423-86-40 05:13:00 Test Item Value Reference Range Interpretation Comments Creatinine Lvl (test code = Creatinine 1.05 0.50-1.40 Lvl) [facility] [id number] 05:13:00 Test Item Value Reference Range Interpretation Comments eGFR (test code = eGFR) 54 [facility] CenterWiakfuaIASYLXKWKS2230-89-64 05:13:00 Test Item Value Reference Range Interpretation Comments Platelet (test code = Platelet) 210 133-450 [facility] SSVKR1017-87-29 05:13:00 Test Item Value Reference Range Interpretation Comments Creatinine Lvl (test code = Creatinine 1.05 0.50-1.40 Lvl) [facility] [id number] 05:13:00 Test Item Value Reference Range Interpretation Comments eGFR (test code = eGFR) 54 [facility] CenterBiexdtwWNXZNEZCNI3009-81-58 05:13:00 Test Item Value Reference Range Interpretation Comments Platelet (test code = Platelet) 210 133-450 [facility] YGHGQ0329-60-48 00:59:00 Test Item Value Reference Range Interpretation Comments Lipase Lvl (test code = Lipase Lvl) 125 73-393 [facility] LBGEC7954-55-02 00:59:00 Test Item Value Reference Range Interpretation Comments A/G Ratio (test code = A/G Ratio) 0.8 0.7-1.6 [facility] [id number] 00:59:00 Test Item Value Reference Range Interpretation Comments AGAP (test code = AGAP) 14.3 10.0-20.0 [facility] [id number] 00:59:00 Test Item Value Reference Range Interpretation Comments B/C Ratio (test code = B/C Ratio) 21 6-25 [facility] BrookSuagi.comATRI[facility] MED[facility] CENTERFSYOC1594-25-36 00:59:00 Test Item Value Reference Range Interpretation Comments Globulin (test code = Globulin) 4.6 2.0-4.0 [facility] YXFTV0604-10-00 00:59:00 Test Item Value Reference Range Interpretation Comments eGFR (test code = eGFR) 46 [facility] [id number] 00:59:00 Test Item Value Reference Range Interpretation Comments Potassium Lvl (test code = Potassium 4.3 3.5-5.1 Lvl) [facility]2016-02-24 00:59:00 Test Item Value Reference Range Interpretation Comments Calcium Lvl (test code = Calcium Lvl) 9.1 8.5-10.5 [facility]2016-02-24 00:59:00 Test Item Value Reference Range Interpretation Comments Chloride Lvl (test code = Chloride Lvl) 105 95-109 [facility]2016-02-24 00:59:00 Test Item Value Reference Range Interpretation Comments Total Protein (test code = Total 8.2 6.4-8.4 Protein) [facility]2016-02-24 00:59:00 Test Item Value Reference Range Interpretation Comments CO2 (test code = CO2) 24 24-32 [facility]2016-02-24 00:59:00 Test Item Value Reference Range Interpretation Comments AST (test code = AST) 24 See_Comment [Auto mated message] The system which ge nerated this result transmit son reference range : <=37. The reference range was not used to interpr et this result as nikki l/abnormal. [facility]2016-02-24 00:59:00 Test Item Value Reference Range Interpretation Comments Alk Phos (test code = Alk Phos) 120 39-136 [facility]2016-02-24 00:59:00 Test Item Value Reference Range Interpretation Comments Albumin Lvl (test code = Albumin Lvl) 3.6 3.5-5.0 [facility]2016-02-24 00:59:00 Test Item Value Reference Range Interpretation Comments ALT (test code = ALT) 129 See_Comment [Auto mated message] The system which ge nerated this result transmit son reference range : <=65. The reference range was not used to interpr et this result as nikki l/abnormal. [facility]2016-02-24 00:59:00 Test Item Value Reference Range Interpretation Comments Bili Total (test code = Bili Total) 0.6 0.2-1.3 [facility]2016-02-24 00:59:00 Test Item Value Reference Range Interpretation Comments Creatinine Lvl (test code = Creatinine 1.19 0.50-1.40 Lvl) [facility]2016-02-24 00:59:00 Test Item Value Reference Range Interpretation Comments Sodium Lvl (test code = Sodium Lvl) 139 135-145 [facility]2016-02-24 00:59:00 Test Item Value Reference Range Interpretation Comments BUN (test code = BUN) 25 7-22 [facility]2016-02-24 00:59:00 Test Item Value Reference Range Interpretation Comments Glucose Lvl (test code = Glucose Lvl) 102 70-99 [facility] CenterAqfkgfrBOWEKOLUMZ4770-44-59 00:59:00 Test Item Value Reference Range Interpretation Comments Lymphocytes (test code = Lymphocytes) 11.3 20.0-40.0 [facility] CenterTqvjfnrRLPOZXBBMB9871-57-44 00:59:00 Test Item Value Reference Range Interpretation Comments Segs (test code = Segs) 82.4 45.0-75.0 [facility] CenterLcirsulLKKOQEPGOS2164-81-29 00:59:00 Test Item Value Reference Range Interpretation Comments Monocytes # (test code 0.8 See_Comment [Aut omated message] The = Monocytes #) system which generated this result tra nsmitted reference range : <=0.8. The reference r bill was not used to int erpret this result as normal/abnormal . [facility] CenterSopteqsUQQIJJUMMT1543-49-03 00:59:00 Test Item Value Reference Range Interpretation Comments Lymphocytes # (test code = Lymphocytes 1.5 1.0-5.5 #) [facility] CenterBbesqbhEIDQWFWNAU2010-58-16 00:59:00 Test Item Value Reference Range Interpretation Comments Basophils # (test code 0.1 See_Comment [Aut omated message] The = Basophils #) system which generated this result tra nsmitted reference range : <=0.2. The reference r bill was not used to int erpret this result as normal/abnormal . [facility] CenterYbsekkeGACNVOCGWO3824-43-70 00:59:00 Test Item Value Reference Range Interpretation Comments Eosinophils (test code = 0.2 See_Comment [A utomated message] The Eosinophils) system which ge nerated this result tra nsmitted reference range : <=4.0. The reference r bill was not used to int erpret this result as normal/abnormal . [facility] CenterVoddfkiEULBEAOHDN0274-41-59 00:59:00 Test Item Value Reference Range Interpretation Comments Monocytes (test code = Monocytes) 5.6 2.0-12.0 [place] [id number] 00:59:00 Test Item Value Reference Range Interpretation Comments Basophils (test code = 0.5 See_Comment [Aut omated message] The Basophils) system which ge nerated this result tra nsmitted reference range : <=1.0. The reference r bill was not used to int erpret this result as normal/abnormal . [facility] CenterItqqadeZQEWXWGGGC4240-66-09 00:59:00 Test Item Value Reference Range Interpretation Comments Segs-Bands # (test code = Segs-Bands #) 11.1 1.5-8.1 [facility] CenterAznuzxsXRMKWIURSW9327-45-34 00:59:00 Test Item Value Reference Range Interpretation Comments INR (test code = INR) 1.06 0.85-1.17 [facility] CenterOmssnpsNLPHRQYLSH9646-33-57 00:59:00 Test Item Value Reference Range Interpretation Comments PTT (test code = PTT) 27.6 s 22.9-35.8 [facility] CenterLgaxomwRCWQMSXQJJ7580-43-92 00:59:00 Test Item Value Reference Range Interpretation Comments PT (test code = PT) 14.1 s 12.0-14.7 [facility] CenterFtyzthsLDKBVGNZOG1082-30-17 00:59:00 Test Item Value Reference Range Interpretation Comments Platelet (test code = Platelet) 232 133-450 [facility] CenterUvcyehtEHVAVEEQCC6553-53-67 00:59:00 Test Item Value Reference Range Interpretation Comments MPV (test code = MPV) 9.2 7.4-10.4 [facility] CenterMgmqpehNTYUZZARGL0635-08-08 00:59:00 Test Item Value Reference Range Interpretation Comments Hct (test code = Hct) 40.9 36.0-48.0 [facility] CenterZrtoumpYWISGXPCTP7185-21-94 00:59:00 Test Item Value Reference Range Interpretation Comments RBC (test code = RBC) 4.52 4.20-5.40 [facility] CenterBwvjxnaWBIZDLMJKA7909-79-25 00:59:00 Test Item Value Reference Range Interpretation Comments Hgb (test code = Hgb) 13.6 12.0-16.0 [facility] CenterBrzbtntAKQVNLAGEM0455-52-99 00:59:00 Test Item Value Reference Range Interpretation Comments RDW (test code = RDW) 13.1 11.5-14.5 [facility] CenterMfysuskOQZNDVSGBG3420-47-69 00:59:00 Test Item Value Reference Range Interpretation Comments MCV (test code = MCV) 90.4 80.0-98.0 [facility] CenterTcjanwmICBMBRKNSB4825-51-83 00:59:00 Test Item Value Reference Range Interpretation Comments MCH (test code = MCH) 30.1 pg 27.0-31.0 [facility] CenterHvpfpvmCOMGYYFKFT9078-92-15 00:59:00 Test Item Value Reference Range Interpretation Comments MCHC (test code = MCHC) 33.3 32.0-36.0 [facility] CenterXnysqpiGAITBRKKYV0263-29-59 00:59:00 Test Item Value Reference Range Interpretation Comments WBC (test code = WBC) 13.4 3.7-10.4 [facility]2016-02-24 00:59:00 Test Item Value Reference Range Interpretation Comments Lipase Lvl (test code = Lipase Lvl) 125 73-393 [facility]2016-02-24 00:59:00 Test Item Value Reference Range Interpretation Comments A/G Ratio (test code = A/G Ratio) 0.8 0.7-1.6 [facility]2016-02-24 00:59:00 Test Item Value Reference Range Interpretation Comments AGAP (test code = AGAP) 14.3 10.0-20.0 [facility]2016-02-24 00:59:00 Test Item Value Reference Range Interpretation Comments B/C Ratio (test code = B/C Ratio) 21 6-25 [facility]2016-02-24 00:59:00 Test Item Value Reference Range Interpretation Comments Globulin (test code = Globulin) 4.6 2.0-4.0 [facility]2016-02-24 00:59:00 Test Item Value Reference Range Interpretation Comments eGFR (test code = eGFR) 46 [facility]2016-02-24 00:59:00 Test Item Value Reference Range Interpretation Comments Potassium Lvl (test code = Potassium 4.3 3.5-5.1 Lvl) [facility]2016-02-24 00:59:00 Test Item Value Reference Range Interpretation Comments Calcium Lvl (test code = Calcium Lvl) 9.1 8.5-10.5 [facility]2016-02-24 00:59:00 Test Item Value Reference Range Interpretation Comments Chloride Lvl (test code = Chloride Lvl) 105 95-109 [facility]2016-02-24 00:59:00 Test Item Value Reference Range Interpretation Comments Total Protein (test code = Total 8.2 6.4-8.4 Protein) [facility]2016-02-24 00:59:00 Test Item Value Reference Range Interpretation Comments CO2 (test code = CO2) 24 24-32 [facility]2016-02-24 00:59:00 Test Item Value Reference Range Interpretation Comments AST (test code = AST) 24 See_Comment [Auto mated message] The system which ge nerated this result transmit son reference range : <=37. The reference range was not used to interpr et this result as nikki l/abnormal. [facility]2016-02-24 00:59:00 Test Item Value Reference Range Interpretation Comments Alk Phos (test code = Alk Phos) 120 39-136 [facility]2016-02-24 00:59:00 Test Item Value Reference Range Interpretation Comments Albumin Lvl (test code = Albumin Lvl) 3.6 3.5-5.0 [facility]2016-02-24 00:59:00 Test Item Value Reference Range Interpretation Comments ALT (test code = ALT) 129 See_Comment [Auto mated message] The system which ge nerated this result transmit son reference range : <=65. The reference range was not used to interpr et this result as nikki l/abnormal. [facility]2016-02-24 00:59:00 Test Item Value Reference Range Interpretation Comments Bili Total (test code = Bili Total) 0.6 0.2-1.3 [facility]2016-02-24 00:59:00 Test Item Value Reference Range Interpretation Comments Creatinine Lvl (test code = Creatinine 1.19 0.50-1.40 Lvl) [facility]2016-02-24 00:59:00 Test Item Value Reference Range Interpretation Comments Sodium Lvl (test code = Sodium Lvl) 139 135-145 [facility]2016-02-24 00:59:00 Test Item Value Reference Range Interpretation Comments BUN (test code = BUN) 25 7-22 [facility]2016-02-24 00:59:00 Test Item Value Reference Range Interpretation Comments Glucose Lvl (test code = Glucose Lvl) 102 70-99 [facility]FrjotdmXUXLAQAOGR9936-19-40 00:59:00 Test Item Value Reference Range Interpretation Comments Lymphocytes (test code = Lymphocytes) 11.3 20.0-40.0 [facility] CenterElyhyekJPSRRIMRRF5756-43-28 00:59:00 Test Item Value Reference Range Interpretation Comments Segs (test code = Segs) 82.4 45.0-75.0 [facility] CenterWdorliiBULXUBWZPR4691-00-05 00:59:00 Test Item Value Reference Range Interpretation Comments Monocytes # (test code 0.8 See_Comment [Aut omated message] The = Monocytes #) system which generated this result tra nsmitted reference range : <=0.8. The reference r bill was not used to int erpret this result as normal/abnormal . [facility] CenterJavrujaRMZTZUBARU7503-09-46 00:59:00 Test Item Value Reference Range Interpretation Comments Lymphocytes # (test code = Lymphocytes 1.5 1.0-5.5 #) [facility] CenterBaurkmiOHLGJRWMHV5416-37-68 00:59:00 Test Item Value Reference Range Interpretation Comments Basophils # (test code 0.1 See_Comment [Aut omated message] The = Basophils #) system which generated this result tra nsmitted reference range : <=0.2. The reference r bill was not used to int erpret this result as normal/abnormal . [facility] CenterWepesrmEQCJLMKAVT0736-80-85 00:59:00 Test Item Value Reference Range Interpretation Comments Eosinophils (test code = 0.2 See_Comment [A utomated message] The Eosinophils) system which ge nerated this result tra nsmitted reference range : <=4.0. The reference r bill was not used to int erpret this result as normal/abnormal . [facility] CenterGgirqqwFVSTADMRMX8210-06-02 00:59:00 Test Item Value Reference Range Interpretation Comments Monocytes (test code = Monocytes) 5.6 2.0-12.0 [facility] CenterUtofdnvHCIRBVTFZW2810-94-90 00:59:00 Test Item Value Reference Range Interpretation Comments Basophils (test code = 0.5 See_Comment [Aut omated message] The Basophils) system which ge nerated this result tra nsmitted reference range : <=1.0. The reference r bill was not used to int erpret this result as normal/abnormal . [facility] CenterNmxqyvrDSUZLPOWWQ3215-59-00 00:59:00 Test Item Value Reference Range Interpretation Comments Segs-Bands # (test code = Segs-Bands #) 11.1 1.5-8.1 [facility] CenterCcelnvpROEJVJPZMV6929-43-83 00:59:00 Test Item Value Reference Range Interpretation Comments INR (test code = INR) 1.06 0.85-1.17 [facility] CenterIepdefhEFDOAOPMKP0513-69-67 00:59:00 Test Item Value Reference Range Interpretation Comments PTT (test code = PTT) 27.6 s 22.9-35.8 [facility] CenterEetbbriLPEBXZIPNL0732-33-11 00:59:00 Test Item Value Reference Range Interpretation Comments PT (test code = PT) 14.1 s 12.0-14.7 [facility] CenterWvjookcZMQHHASQGX8271-17-39 00:59:00 Test Item Value Reference Range Interpretation Comments Platelet (test code = Platelet) 232 133-450 [facility] CenterKugchcgSKPGXINULS8848-21-65 00:59:00 Test Item Value Reference Range Interpretation Comments MPV (test code = MPV) 9.2 7.4-10.4 [facility] CenterNzqgqpyGBOAYQVORW0857-71-13 00:59:00 Test Item Value Reference Range Interpretation Comments Hct (test code = Hct) 40.9 36.0-48.0 [facility] CenterGfztimyNQODOCWQLT8790-40-31 00:59:00 Test Item Value Reference Range Interpretation Comments RBC (test code = RBC) 4.52 4.20-5.40 [facility] CenterUsorqnaRQKCUFBQLS4775-59-90 00:59:00 Test Item Value Reference Range Interpretation Comments Hgb (test code = Hgb) 13.6 12.0-16.0 [facility] CenterNrwmapzTKUTSOUWTH6188-72-23 00:59:00 Test Item Value Reference Range Interpretation Comments RDW (test code = RDW) 13.1 11.5-14.5 [facility] CenterIabbqvtWHZAUJWTWR1216-08-33 00:59:00 Test Item Value Reference Range Interpretation Comments MCV (test code = MCV) 90.4 80.0-98.0 [facility] CenterHmsacfrDCTGMAAPTZ4323-59-12 00:59:00 Test Item Value Reference Range Interpretation Comments MCH (test code = MCH) 30.1 pg 27.0-31.0 [facility] CenterGfqhetiTLXRFSKQIZ8417-90-14 00:59:00 Test Item Value Reference Range Interpretation Comments MCHC (test code = MCHC) 33.3 32.0-36.0 [facility] CenterZpcdejjQXONPQHEHN1887-63-90 00:59:00 Test Item Value Reference Range Interpretation Comments WBC (test code = WBC) 13.4 3.7-10.4 [facility]2016-02-24 00:59:00 Test Item Value Reference Range Interpretation Comments Lipase Lvl (test code = Lipase Lvl) 125 73-393 [facility]2016-02-24 00:59:00 Test Item Value Reference Range Interpretation Comments A/G Ratio (test code = A/G Ratio) 0.8 0.7-1.6 [facility]2016-02-24 00:59:00 Test Item Value Reference Range Interpretation Comments AGAP (test code = AGAP) 14.3 10.0-20.0 [facility]2016-02-24 00:59:00 Test Item Value Reference Range Interpretation Comments B/C Ratio (test code = B/C Ratio) 21 6-25 [facility]2016-02-24 00:59:00 Test Item Value Reference Range Interpretation Comments Globulin (test code = Globulin) 4.6 2.0-4.0 [facility]2016-02-24 00:59:00 Test Item Value Reference Range Interpretation Comments eGFR (test code = eGFR) 46 [facility]2016-02-24 00:59:00 Test Item Value Reference Range Interpretation Comments Potassium Lvl (test code = Potassium 4.3 3.5-5.1 Lvl) [facility]2016-02-24 00:59:00 Test Item Value Reference Range Interpretation Comments Calcium Lvl (test code = Calcium Lvl) 9.1 8.5-10.5 [facility]2016-02-24 00:59:00 Test Item Value Reference Range Interpretation Comments Chloride Lvl (test code = Chloride Lvl) 105 95-109 [facility]2016-02-24 00:59:00 Test Item Value Reference Range Interpretation Comments Total Protein (test code = Total 8.2 6.4-8.4 Protein) [facility]2016-02-24 00:59:00 Test Item Value Reference Range Interpretation Comments CO2 (test code = CO2) 24 24-32 [facility]2016-02-24 00:59:00 Test Item Value Reference Range Interpretation Comments AST (test code = AST) 24 See_Comment [Auto mated message] The system which ge nerated this result transmit son reference range : <=37. The reference range was not used to interpr et this result as nikki l/abnormal. [facility]2016-02-24 00:59:00 Test Item Value Reference Range Interpretation Comments Alk Phos (test code = Alk Phos) 120 39-136 [facility]2016-02-24 00:59:00 Test Item Value Reference Range Interpretation Comments Albumin Lvl (test code = Albumin Lvl) 3.6 3.5-5.0 [facility]2016-02-24 00:59:00 Test Item Value Reference Range Interpretation Comments ALT (test code = ALT) 129 See_Comment [Auto mated message] The system which ge nerated this result transmit son reference range : <=65. The reference range was not used to interpr et this result as nikki l/abnormal. [facility]2016-02-24 00:59:00 Test Item Value Reference Range Interpretation Comments Bili Total (test code = Bili Total) 0.6 0.2-1.3 [facility]2016-02-24 00:59:00 Test Item Value Reference Range Interpretation Comments Creatinine Lvl (test code = Creatinine 1.19 0.50-1.40 Lvl) [facility]2016-02-24 00:59:00 Test Item Value Reference Range Interpretation Comments Sodium Lvl (test code = Sodium Lvl) 139 135-145 [facility]2016-02-24 00:59:00 Test Item Value Reference Range Interpretation Comments BUN (test code = BUN) 25 7-22 [facility]2016-02-24 00:59:00 Test Item Value Reference Range Interpretation Comments Glucose Lvl (test code = Glucose Lvl) 102 70-99 [facility] CenterXwqqyfbWRYAJESOAV3802-14-96 00:59:00 Test Item Value Reference Range Interpretation Comments Lymphocytes (test code = Lymphocytes) 11.3 20.0-40.0 [facility] CenterVzfqcaxZTNSGIFARV1270-16-44 00:59:00 Test Item Value Reference Range Interpretation Comments Segs (test code = Segs) 82.4 45.0-75.0 [facility] CenterFauqfufUYCYKHXDUQ6870-98-42 00:59:00 Test Item Value Reference Range Interpretation Comments Monocytes # (test code 0.8 See_Comment [Aut omated message] The = Monocytes #) system which generated this result tra nsmitted reference range : <=0.8. The reference r bill was not used to int erpret this result as normal/abnormal . [facility] CenterIymnqnwCNCVVENGFU0592-09-04 00:59:00 Test Item Value Reference Range Interpretation Comments Lymphocytes # (test code = Lymphocytes 1.5 1.0-5.5 #) [facility] CenterMtjpxbfDCWZNLJZMS5766-50-06 00:59:00 Test Item Value Reference Range Interpretation Comments Basophils # (test code 0.1 See_Comment [Aut omated message] The = Basophils #) system which generated this result tra nsmitted reference range : <=0.2. The reference r bill was not used to int erpret this result as normal/abnormal . [facility] CenterSmvaonpQUYTWPSUKL4015-60-68 00:59:00 Test Item Value Reference Range Interpretation Comments Eosinophils (test code = 0.2 See_Comment [A utomated message] The Eosinophils) system which ge nerated this result tra nsmitted reference range : <=4.0. The reference r bill was not used to int erpret this result as normal/abnormal . [facility] CenterRaggzzhAFLHBSCGYN0999-24-81 00:59:00 Test Item Value Reference Range Interpretation Comments Monocytes (test code = Monocytes) 5.6 2.0-12.0 [facility] CenterWppztjgKELUZTKXEB9020-01-58 00:59:00 Test Item Value Reference Range Interpretation Comments Basophils (test code = 0.5 See_Comment [Aut omated message] The Basophils) system which ge nerated this result tra nsmitted reference range : <=1.0. The reference r bill was not used to int erpret this result as normal/abnormal . [facility] CenterJavbuynAEYWNOYEAZ4622-33-56 00:59:00 Test Item Value Reference Range Interpretation Comments Segs-Bands # (test code = Segs-Bands #) 11.1 1.5-8.1 [facility] CenterQnqiaggVUYSAZKTTD8722-72-11 00:59:00 Test Item Value Reference Range Interpretation Comments INR (test code = INR) 1.06 0.85-1.17 [facility] CenterCahsygpQJHTXUWBLE2220-41-78 00:59:00 Test Item Value Reference Range Interpretation Comments PTT (test code = PTT) 27.6 s 22.9-35.8 [facility] CenterYiehhesSPUSZZKTIR5998-14-58 00:59:00 Test Item Value Reference Range Interpretation Comments PT (test code = PT) 14.1 s 12.0-14.7 [facility] CenterJfhuyucFSDRCNGDTX8813-93-79 00:59:00 Test Item Value Reference Range Interpretation Comments Platelet (test code = Platelet) 232 133-450 [facility] CenterXmfbhalGKDVXCOYHJ9474-08-74 00:59:00 Test Item Value Reference Range Interpretation Comments MPV (test code = MPV) 9.2 7.4-10.4 [facility] CenterKeubqmiPCXKRZBJMC1352-18-25 00:59:00 Test Item Value Reference Range Interpretation Comments Hct (test code = Hct) 40.9 36.0-48.0 [facility] CenterKdofgxxNWVDKAUDNJ8829-32-44 00:59:00 Test Item Value Reference Range Interpretation Comments RBC (test code = RBC) 4.52 4.20-5.40 [facility] CenterDmtcchnOMCABCAKEI1903-70-94 00:59:00 Test Item Value Reference Range Interpretation Comments Hgb (test code = Hgb) 13.6 12.0-16.0 [facility] CenterNppqmafTMNYNDHMTR1333-89-35 00:59:00 Test Item Value Reference Range Interpretation Comments RDW (test code = RDW) 13.1 11.5-14.5 [facility] CenterMtscrnsTSYASXFGLY6317-79-06 00:59:00 Test Item Value Reference Range Interpretation Comments MCV (test code = MCV) 90.4 80.0-98.0 [facility] CenterMpjvrjrJVIXGAQPXX8815-31-43 00:59:00 Test Item Value Reference Range Interpretation Comments MCH (test code = MCH) 30.1 pg 27.0-31.0 [facility] CenterVahfspdUXSCYOFAEN8453-84-35 00:59:00 Test Item Value Reference Range Interpretation Comments MCHC (test code = MCHC) 33.3 32.0-36.0 [facility] CenterUylzjgpVXVNMYQLOT4581-82-00 00:59:00 Test Item Value Reference Range Interpretation Comments WBC (test code = WBC) 13.4 3.7-10.4 [facility]2016-02-24 00:59:00 Test Item Value Reference Range Interpretation Comments Lipase Lvl (test code = Lipase Lvl) 125 73-393 [facility]2016-02-24 00:59:00 Test Item Value Reference Range Interpretation Comments A/G Ratio (test code = A/G Ratio) 0.8 0.7-1.6 [facility]2016-02-24 00:59:00 Test Item Value Reference Range Interpretation Comments AGAP (test code = AGAP) 14.3 10.0-20.0 [facility]2016-02-24 00:59:00 Test Item Value Reference Range Interpretation Comments B/C Ratio (test code = B/C Ratio) 21 6-25 [facility]2016-02-24 00:59:00 Test Item Value Reference Range Interpretation Comments Globulin (test code = Globulin) 4.6 2.0-4.0 [facility]2016-02-24 00:59:00 Test Item Value Reference Range Interpretation Comments eGFR (test code = eGFR) 46 [facility]2016-02-24 00:59:00 Test Item Value Reference Range Interpretation Comments Potassium Lvl (test code = Potassium 4.3 3.5-5.1 Lvl) [facility]2016-02-24 00:59:00 Test Item Value Reference Range Interpretation Comments Calcium Lvl (test code = Calcium Lvl) 9.1 8.5-10.5 [facility]2016-02-24 00:59:00 Test Item Value Reference Range Interpretation Comments Chloride Lvl (test code = Chloride Lvl) 105 95-109 [facility]2016-02-24 00:59:00 Test Item Value Reference Range Interpretation Comments Total Protein (test code = Total 8.2 6.4-8.4 Protein) [facility]2016-02-24 00:59:00 Test Item Value Reference Range Interpretation Comments CO2 (test code = CO2) 24 24-32 [facility]2016-02-24 00:59:00 Test Item Value Reference Range Interpretation Comments AST (test code = AST) 24 See_Comment [Auto mated message] The system which ge nerated this result transmit son reference range : <=37. The reference range was not used to interpr et this result as nikki l/abnormal. [facility]2016-02-24 00:59:00 Test Item Value Reference Range Interpretation Comments Alk Phos (test code = Alk Phos) 120 39-136 [facility]2016-02-24 00:59:00 Test Item Value Reference Range Interpretation Comments Albumin Lvl (test code = Albumin Lvl) 3.6 3.5-5.0 [facility]2016-02-24 00:59:00 Test Item Value Reference Range Interpretation Comments ALT (test code = ALT) 129 See_Comment [Auto mated message] The system which ge nerated this result transmit son reference range : <=65. The reference range was not used to interpr et this result as nikki l/abnormal. [facility]2016-02-24 00:59:00 Test Item Value Reference Range Interpretation Comments Bili Total (test code = Bili Total) 0.6 0.2-1.3 [facility]2016-02-24 00:59:00 Test Item Value Reference Range Interpretation Comments Creatinine Lvl (test code = Creatinine 1.19 0.50-1.40 Lvl) [facility]2016-02-24 00:59:00 Test Item Value Reference Range Interpretation Comments Sodium Lvl (test code = Sodium Lvl) 139 135-145 [facility]2016-02-24 00:59:00 Test Item Value Reference Range Interpretation Comments BUN (test code = BUN) 25 7-22 [facility]2016-02-24 00:59:00 Test Item Value Reference Range Interpretation Comments Glucose Lvl (test code = Glucose Lvl) 102 70-99 [facility] CenterBbbtwhzLKPGJCIQFX8631-66-70 00:59:00 Test Item Value Reference Range Interpretation Comments Lymphocytes (test code = Lymphocytes) 11.3 20.0-40.0 [facility] CenterAmhwupxRIVSEAENZA9464-34-62 00:59:00 Test Item Value Reference Range Interpretation Comments Segs (test code = Segs) 82.4 45.0-75.0 [facility] CenterWsdaqrgWLVQKSCYQE5981-77-71 00:59:00 Test Item Value Reference Range Interpretation Comments Monocytes # (test code 0.8 See_Comment [Aut omated message] The = Monocytes #) system which generated this result tra nsmitted reference range : <=0.8. The reference r bill was not used to int erpret this result as normal/abnormal . [facility] CenterDqwlktyOQTZNUUILI5654-39-36 00:59:00 Test Item Value Reference Range Interpretation Comments Lymphocytes # (test code = Lymphocytes 1.5 1.0-5.5 #) [facility] CenterArlxymkQEIYHSKRUK9505-71-72 00:59:00 Test Item Value Reference Range Interpretation Comments Basophils # (test code 0.1 See_Comment [Aut omated message] The = Basophils #) system which generated this result tra nsmitted reference range : <=0.2. The reference r bill was not used to int erpret this result as normal/abnormal . [facility] CenterKdkgmuoULLYNNYKMN0371-48-04 00:59:00 Test Item Value Reference Range Interpretation Comments Eosinophils (test code = 0.2 See_Comment [A utomated message] The Eosinophils) system which ge nerated this result tra nsmitted reference range : <=4.0. The reference r bill was not used to int erpret this result as normal/abnormal . [facility] CenterXdjzhpuCCXMQPBQVR0478-02-35 00:59:00 Test Item Value Reference Range Interpretation Comments Monocytes (test code = Monocytes) 5.6 2.0-12.0 [facility] CenterUlqtvwbUNLBTFKWFE4021-11-04 00:59:00 Test Item Value Reference Range Interpretation Comments Basophils (test code = 0.5 See_Comment [Aut omated message] The Basophils) system which ge nerated this result tra nsmitted reference range : <=1.0. The reference r bill was not used to int erpret this result as normal/abnormal . [facility] CenterGaqliilINVGOJUPRF0050-14-40 00:59:00 Test Item Value Reference Range Interpretation Comments Segs-Bands # (test code = Segs-Bands #) 11.1 1.5-8.1 [facility] CenterBfjkovcKIGQNCAEFZ1474-41-61 00:59:00 Test Item Value Reference Range Interpretation Comments INR (test code = INR) 1.06 0.85-1.17 [facility] CenterXwtgwpiPCMHZNBHVU0177-34-68 00:59:00 Test Item Value Reference Range Interpretation Comments PTT (test code = PTT) 27.6 s 22.9-35.8 [facility] CenterFzbwiejWTSRXZKBVL7297-52-44 00:59:00 Test Item Value Reference Range Interpretation Comments PT (test code = PT) 14.1 s 12.0-14.7 [facility] CenterJrssxonKURTCHXBML7340-90-07 00:59:00 Test Item Value Reference Range Interpretation Comments Platelet (test code = Platelet) 232 133-450 [facility] CenterDwptyubZFOQDWHCTN4299-97-51 00:59:00 Test Item Value Reference Range Interpretation Comments MPV (test code = MPV) 9.2 7.4-10.4 [facility] CenterUysanhnZDYGXICBOF5930-53-38 00:59:00 Test Item Value Reference Range Interpretation Comments Hct (test code = Hct) 40.9 36.0-48.0 [facility] CenterRrwmnscIMEYRRHCCI0004-67-83 00:59:00 Test Item Value Reference Range Interpretation Comments RBC (test code = RBC) 4.52 4.20-5.40 [facility] CenterXvdldwqYESMYHBJFJ0308-07-82 00:59:00 Test Item Value Reference Range Interpretation Comments Hgb (test code = Hgb) 13.6 12.0-16.0 [facility] CenterWxaiivfFUXMCTGIYT7505-88-20 00:59:00 Test Item Value Reference Range Interpretation Comments RDW (test code = RDW) 13.1 11.5-14.5 [facility] CenterLcsfuxxCMXHSMLLCO5404-20-96 00:59:00 Test Item Value Reference Range Interpretation Comments MCV (test code = MCV) 90.4 80.0-98.0 [facility] CenterLhhzgyoMANKTSJVTY4750-90-14 00:59:00 Test Item Value Reference Range Interpretation Comments MCH (test code = MCH) 30.1 pg 27.0-31.0 [facility] CenterLkayukwGOBEJGZKYZ1260-75-16 00:59:00 Test Item Value Reference Range Interpretation Comments MCHC (test code = MCHC) 33.3 32.0-36.0 [facility] CenterOttwjbcZDGCYSBYYN3427-37-73 00:59:00 Test Item Value Reference Range Interpretation Comments WBC (test code = WBC) 13.4 3.7-10.4 [facility] VISup VFLDBUV3405-36-92 17:59:00 Test Item Value Reference Range Interpretation Comments Antibody Scrn (test Negative (07/02/15 code = Antibody Scrn) 11:59 AM) [facility] VISup ESMTUCP5075-06-41 17:59:00 Test Item Value Reference Range Interpretation Comments ABO/Rh (test code = ABO/Rh) O POS [facility]2016-02-19 17:59:00 Test Item Value Reference Range Interpretation Comments Globulin (test code = Globulin) 4.0 2.0-4.0 [facility]2016-02-19 17:59:00 Test Item Value Reference Range Interpretation Comments B/C Ratio (test code = B/C Ratio) 18 6-25 [facility]2016-02-19 17:59:00 Test Item Value Reference Range Interpretation Comments AGAP (test code = AGAP) 11.1 10.0-20.0 [facility]2016-02-19 17:59:00 Test Item Value Reference Range Interpretation Comments A/G Ratio (test code = A/G Ratio) 1.0 0.7-1.6 [facility]2016-02-19 17:59:00 Test Item Value Reference Range Interpretation Comments eGFR (test code = eGFR) 56 [facility]2016-02-19 17:59:00 Test Item Value Reference Range Interpretation Comments Calcium Lvl (test code = Calcium Lvl) 9.4 8.5-10.5 [facility]2016-02-19 17:59:00 Test Item Value Reference Range Interpretation Comments Chloride Lvl (test code = Chloride Lvl) 108 95-109 [facility]2016-02-19 17:59:00 Test Item Value Reference Range Interpretation Comments Potassium Lvl (test code = Potassium 4.1 3.5-5.1 Lvl) [facility]2016-02-19 17:59:00 Test Item Value Reference Range Interpretation Comments Sodium Lvl (test code = Sodium Lvl) 141 135-145 [facility]2016-02-19 17:59:00 Test Item Value Reference Range Interpretation Comments Creatinine Lvl (test code = Creatinine 1.01 0.50-1.40 Lvl) [facility] [facility]2016-02-19 17:59:00 Test Item Value Reference Range Interpretation Comments BUN (test code = BUN) 18 7- [facility]2016-02-19 17:59:00 Test Item Value Reference Range Interpretation Comments Glucose Lvl (test code = Glucose Lvl) 102 70-99 [facility]2016-02-19 17:59:00 Test Item Value Reference Range Interpretation Comments Alk Phos (test code = Alk Phos) 83 39-136 [facility]2016-02-19 17:59:00 Test Item Value Reference Range Interpretation Comments AST (test code = AST) 13 See_Comment [Auto mated message] The system which ge nerated this result transmit son reference range : <=37. The reference range was not used to interpr et this result as nikki l/abnormal. [facility]2016-02-19 17:59:00 Test Item Value Reference Range Interpretation Comments Total Protein (test code = Total 8.1 6.4-8.4 Protein) [facility]2016-02-19 17:59:00 Test Item Value Reference Range Interpretation Comments Bili Total (test code = Bili Total) 0.6 0.2-1.3 [facility]2016-02-19 17:59:00 Test Item Value Reference Range Interpretation Comments CO2 (test code = CO2) 26 24-32 [facility]2016-02-19 17:59:00 Test Item Value Reference Range Interpretation Comments Albumin Lvl (test code = Albumin Lvl) 4.1 3.5-5.0 [facility]2016-02-19 17:59:00 Test Item Value Reference Range Interpretation Comments ALT (test code = ALT) 36 See_Comment [Auto mated message] The system which ge nerated this result transmit son reference range : <=65. The reference range was not used to interpr et this result as nikki l/abnormal. [facility]ygkxggOHHSHPCEHR5073-42-83 17:59:00 Test Item Value Reference Range Interpretation Comments MCHC (test code = MCHC) 33.7 32.0-36.0 [facility] CenterQblvtakWXZYULSNMI8869-83-90 17:59:00 Test Item Value Reference Range Interpretation Comments Hgb (test code = Hgb) 13.6 12.0-16.0 [facility] CenterQiipskeCSVQOIYPZD1030-05-95 17:59:00 Test Item Value Reference Range Interpretation Comments MCV (test code = MCV) 90.4 80.0-98.0 [facility] CenterBnwapmxAWYFEIFCQW1835-35-58 17:59:00 Test Item Value Reference Range Interpretation Comments Hct (test code = Hct) 40.4 36.0-48.0 [facility] CenterUorhlihNPKVSNDYZF7514-20-49 17:59:00 Test Item Value Reference Range Interpretation Comments MCH (test code = MCH) 30.5 pg 27.0-31.0 [facility] CenterIlxkvqsDVIPCBEGTW2462-24-75 17:59:00 Test Item Value Reference Range Interpretation Comments Platelet (test code = Platelet) 241 133-450 [facility] CenterOznrzvuSLXJPXWIKH6262-27-69 17:59:00 Test Item Value Reference Range Interpretation Comments RDW (test code = RDW) 13.2 11.5-14.5 [facility] CenterQkagtlkCMWJHGUDRO3300-19-31 17:59:00 Test Item Value Reference Range Interpretation Comments MPV (test code = MPV) 8.7 7.4-10.4 [facility] CenterGdgrzsyZQPQFVKTRG3882-40-09 17:59:00 Test Item Value Reference Range Interpretation Comments RBC (test code = RBC) 4.47 4.20-5.40 [facility] CenterWofknytVKJIOFAVBT6462-47-02 17:59:00 Test Item Value Reference Range Interpretation Comments WBC (test code = WBC) 6.5 3.7-10.4 [facility] CenterPyjaovaDCPSKEXWTU5100-72-23 17:59:00 Test Item Value Reference Range Interpretation Comments Eosinophils # (test code 0.1 See_Comment [A utomated message] The = Eosinophils #) system whic h generated this result tra nsmitted reference range : <=0.5. The reference r bill was not used to int erpret this result as normal/abnormal . [facility] CenterLkihysbIHKFVZACFM5274-53-27 17:59:00 Test Item Value Reference Range Interpretation Comments Monocytes # (test code 0.4 See_Comment [Aut omated message] The = Monocytes #) system which generated this result tra nsmitted reference range : <=0.8. The reference r bill was not used to int erpret this result as normal/abnormal . [facility] CenterXxvxnmcQPIWPKYIAL3521-98-72 17:59:00 Test Item Value Reference Range Interpretation Comments Lymphocytes # (test code = Lymphocytes 1.9 1.0-5.5 #) [facility] CenterReigroeEFJWNIKDEN7998-20-99 17:59:00 Test Item Value Reference Range Interpretation Comments Segs-Bands # (test code = Segs-Bands #) 4.1 1.5-8.1 [facility] CenterBuzzpshKPTGZLIVYQ3452-02-81 17:59:00 Test Item Value Reference Range Interpretation Comments Monocytes (test code = Monocytes) 5.6 2.0-12.0 [facility] CenterTgmaqwxSHSFOFICUJ9163-30-56 17:59:00 Test Item Value Reference Range Interpretation Comments Eosinophils (test code = 1.3 See_Comment [A utomated message] The Eosinophils) system which ge nerated this result tra nsmitted reference range : <=4.0. The reference r bill was not used to int erpret this result as normal/abnormal . [facility] CenterCeyojzlKEJQQFBXPI6954-46-27 17:59:00 Test Item Value Reference Range Interpretation Comments Lymphocytes (test code = Lymphocytes) 29.2 20.0-40.0 [facility] CenterKgovrcaUHHOEPAAAB9382-17-67 17:59:00 Test Item Value Reference Range Interpretation Comments Basophils (test code = 0.8 See_Comment [Aut omated message] The Basophils) system which ge nerated this result tra nsmitted reference range : <=1.0. The reference r bill was not used to int erpret this result as normal/abnormal . [facility] CenterCwciwmrCEHQTLVVNK8205-58-43 17:59:00 Test Item Value Reference Range Interpretation Comments Segs (test code = Segs) 63.1 45.0-75.0 [facility] CenterTlgauqiOIRYIAFJTR0359-20-76 17:59:00 Test Item Value Reference Range Interpretation Comments PTT (test code = PTT) 28.1 s 22.9-35.8 [facility] CenterZagvaxgLHCQQFCJWH6931-61-92 17:59:00 Test Item Value Reference Range Interpretation Comments INR (test code = INR) 1.11 0.85-1.17 [facility] CenterLkojajbZZDZSPJGDK3550-09-81 17:59:00 Test Item Value Reference Range Interpretation Comments PT (test code = PT) 14.6 s 12.0-14.7 [facility]2016-02-19 17:59:00 Test Item Value Reference Range Interpretation Comments UA Urobilinogen (test code = UA <=1.0 mg/dL 0.1-1.0 Urobilinogen) [facility]2016-02-19 17:59:00 Test Item Value Reference Range Interpretation Comments UA Glucose (test code = UA Negative mg/dL Glucose) [facility] AND [id number] 17:59:00 Test Item Value Reference Range Interpretation Comments UA Spec Grav (test code = UA Spec Grav) 1.021 [facility] AND [id number] 17:59:00 Test Item Value Reference Range Interpretation Comments UA pH (test code = UA pH) 5.0 5.0-8.0 [facility] AND [id number] 17:59:00 Test Item Value Reference Range Interpretation Comments UA Protein (test code = UA Negative mg/dL Protein) [facility] AND [id number] 17:59:00 Test Item Value Reference Range Interpretation Comments UA Color (test code = Yellow *NA*(07/02/15 UA Color) 11:59 AM) [facility] AND [id number] 17:59:00 Test Item Value Reference Range Interpretation Comments UA Ketones (test code = UA Negative mg/dL Ketones) [facility] AND [id number] 17:59:00 Test Item Value Reference Range Interpretation Comments UA RBC (test code = 3 See_Comment [Automa son message] The UA RBC) system which ge nerated this result transmit son reference range : <=2. The reference range was not used to interpr et this result as nikki l/abnormal. [facility] AND [id number] 17:59:00 Test Item Value Reference Range Interpretation Comments UA Mucus (test code = UA Mucus) Few /LPF [facility] AND [id number] 17:59:00 Test Item Value Reference Range Interpretation Comments UA Turbidity (test code Marked *ABN*(07/02/15 = UA Turbidity) 11:59 AM) [facility] AND [id number] 17:59:00 Test Item Value Reference Range Interpretation Comments UA WBC (test code = 1 See_Comment [Automa son message] The UA WBC) system which ge nerated this result transmit son reference range : <=5. The reference range was not used to interpr et this result as nikki l/abnormal. [facility] AND [id number] 17:59:00 Test Item Value Reference Range Interpretation Comments UA Bili (test code = Negative *NA*(07/02/15 UA Bili) 11:59 AM) [facility] [id number] 17:59:00 Test Item Value Reference Range Interpretation Comments UA Nitrite (test code Negative (07/02/15 11:59 = UA Nitrite) AM) [facility] AND [id number] 17:59:00 Test Item Value Reference Range Interpretation Comments UA Hyal Cast (test 3 See_Comment [Automat ed message] The code = UA Hyal Cast) system which generated this result transmit son reference range : <=2. The reference range was not used to interpr et this result as nikki l/abnormal. [email or web address] [id number] 17:59:00 Test Item Value Reference Range Interpretation Comments UA Blood (test code = Negative (07/02/15 11:59 UA Blood) AM) [facility] AND [id number] 17:59:00 Test Item Value Reference Range Interpretation Comments UA Leuk Est (test Negative (07/02/15 11:59 code = UA Leuk Est) AM) [facility] AND [id number] 17:59:00 Test Item Value Reference Range Interpretation Comments UA Sq Epi (test code = UA Sq Epi) Many /LPF [facility] [employer] [id number] 17:59:00 Test Item Value Reference Range Interpretation Comments Antibody Scrn (test Negative (07/02/15 code = Antibody Scrn) 11:59 AM) [facility] [employer] [id number] 17:59:00 Test Item Value Reference Range Interpretation Comments ABO/Rh (test code = ABO/Rh) O POS [facility] [employer] [id number] 17:59:00 Test Item Value Reference Range Interpretation Comments Globulin (test code = Globulin) 4.0 2.0-4.0 [facility] [employer] [id number] 17:59:00 Test Item Value Reference Range Interpretation Comments B/C Ratio (test code = B/C Ratio) 18 6-25 [facility] [employer] [id number] 17:59:00 Test Item Value Reference Range Interpretation Comments AGAP (test code = AGAP) 11.1 10.0-20.0 [facility] [employer] [id number] 17:59:00 Test Item Value Reference Range Interpretation Comments A/G Ratio (test code = A/G Ratio) 1.0 0.7-1.6 [facility]2016-02-19 17:59:00 Test Item Value Reference Range Interpretation Comments eGFR (test code = eGFR) 56 [facility]2016-02-19 17:59:00 Test Item Value Reference Range Interpretation Comments Calcium Lvl (test code = Calcium Lvl) 9.4 8.5-10.5 [facility]2016-02-19 17:59:00 Test Item Value Reference Range Interpretation Comments Chloride Lvl (test code = Chloride Lvl) 108 95-109 [facility]2016-02-19 17:59:00 Test Item Value Reference Range Interpretation Comments Potassium Lvl (test code = Potassium 4.1 3.5-5.1 Lvl) [facility]2016-02-19 17:59:00 Test Item Value Reference Range Interpretation Comments Sodium Lvl (test code = Sodium Lvl) 141 135-145 [facility]2016-02-19 17:59:00 Test Item Value Reference Range Interpretation Comments Creatinine Lvl (test code = Creatinine 1.01 0.50-1.40 Lvl) [facility]2016-02-19 17:59:00 Test Item Value Reference Range Interpretation Comments BUN (test code = BUN) 18 7-22 [facility]2016-02-19 17:59:00 Test Item Value Reference Range Interpretation Comments Glucose Lvl (test code = Glucose Lvl) 102 70-99 [facility]2016-02-19 17:59:00 Test Item Value Reference Range Interpretation Comments Alk Phos (test code = Alk Phos) 83 39-136 [facility]2016-02-19 17:59:00 Test Item Value Reference Range Interpretation Comments AST (test code = AST) 13 See_Comment [Auto mated message] The system which ge nerated this result transmit son reference range : <=37. The reference range was not used to interpr et this result as nikki l/abnormal. [facility]2016-02-19 17:59:00 Test Item Value Reference Range Interpretation Comments Total Protein (test code = Total 8.1 6.4-8.4 Protein) [facility]2016-02-19 17:59:00 Test Item Value Reference Range Interpretation Comments Bili Total (test code = Bili Total) 0.6 0.2-1.3 [facility]2016-02-19 17:59:00 Test Item Value Reference Range Interpretation Comments CO2 (test code = CO2) 26 24-32 [facility]2016-02-19 17:59:00 Test Item Value Reference Range Interpretation Comments Albumin Lvl (test code = Albumin Lvl) 4.1 3.5-5.0 [facility]2016-02-19 17:59:00 Test Item Value Reference Range Interpretation Comments ALT (test code = ALT) 36 See_Comment [Auto mated message] The system which ge nerated this result transmit son reference range : <=65. The reference range was not used to interpr et this result as nikki l/abnormal. [facility] CenterNbqqctuGHXHFYDAQN5171-44-87 17:59:00 Test Item Value Reference Range Interpretation Comments MCHC (test code = MCHC) 33.7 32.0-36.0 [facility] [id number] 17:59:00 Test Item Value Reference Range Interpretation Comments Hgb (test code = Hgb) 13.6 12.0-16.0 [facility] CenterNbqfduoPOUBFQDTAP2893-31-83 17:59:00 Test Item Value Reference Range Interpretation Comments MCV (test code = MCV) 90.4 80.0-98.0 [facility] CenterU[id number] 17:59:00 Test Item Value Reference Range Interpretation Comments Hct (test code = Hct) 40.4 36.0-48.0 [facility] CenterH[id number] 17:59:00 Test Item Value Reference Range Interpretation Comments MCH (test code = MCH) 30.5 pg 27.0-31.0 [facility] CenterNrfiqviOGWILWRLKR4732-10-65 17:59:00 Test Item Value Reference Range Interpretation Comments Platelet (test code = Platelet) 241 133-450 [facility] CenterDydqtgaZWACFFXSHW3777-96-63 17:59:00 Test Item Value Reference Range Interpretation Comments RDW (test code = RDW) 13.2 11.5-14.5 [facility] CenterYcgcyoqEXOMKCAAJF6070-00-64 17:59:00 Test Item Value Reference Range Interpretation Comments MPV (test code = MPV) 8.7 7.4-10.4 [facility] CenterBemxdsnHVMRAFSEWI0120-64-08 17:59:00 Test Item Value Reference Range Interpretation Comments RBC (test code = RBC) 4.47 4.20-5.40 [facility] CenterPrrzcqeLGTGEVOIFO3525-35-79 17:59:00 Test Item Value Reference Range Interpretation Comments WBC (test code = WBC) 6.5 3.7-10.4 [facility] CenterEomnkvvLNWCIJFMJL0933-96-43 17:59:00 Test Item Value Reference Range Interpretation Comments Eosinophils # (test code 0.1 See_Comment [A utomated message] The = Eosinophils #) system whic h generated this result tra nsmitted reference range : <=0.5. The reference r bill was not used to int erpret this result as normal/abnormal . [facility] CenterHtjkwoaFEUKTHKUAN8272-23-42 17:59:00 Test Item Value Reference Range Interpretation Comments Monocytes # (test code 0.4 See_Comment [Aut omated message] The = Monocytes #) system which generated this result tra nsmitted reference range : <=0.8. The reference r bill was not used to int erpret this result as normal/abnormal . [facility] Cent[id number] 17:59:00 Test Item Value Reference Range Interpretation Comments Lymphocytes # (test code = Lymphocytes 1.9 1.0-5.5 #) [facility] CenterYhhjldqXWWQHEMYPI6414-12-23 17:59:00 Test Item Value Reference Range Interpretation Comments Segs-Bands # (test code = Segs-Bands #) 4.1 1.5-8.1 [facility] CenterRcscqngEXVKZJYKDR4828-44-20 17:59:00 Test Item Value Reference Range Interpretation Comments Monocytes (test code = Monocytes) 5.6 2.0-12.0 [place] [id number] 17:59:00 Test Item Value Reference Range Interpretation Comments Eosinophils (test code = 1.3 See_Comment [A utomated message] The Eosinophils) system which ge nerated this result tra nsmitted reference range : <=4.0. The reference r bill was not used to int erpret this result as normal/abnormal . [facility] CenterRlrjksoFGCMQHEIPG4817-37-95 17:59:00 Test Item Value Reference Range Interpretation Comments Lymphocytes (test code = Lymphocytes) 29.2 20.0-40.0 [facility] CenterTdnprwlTCEJDAMMLL2705-10-83 17:59:00 Test Item Value Reference Range Interpretation Comments Basophils (test code = 0.8 See_Comment [Aut omated message] The Basophils) system which ge nerated this result tra nsmitted reference range : <=1.0. The reference r bill was not used to int erpret this result as normal/abnormal . [facility] CenterMveptanZFDHBTGZVK4315-82-05 17:59:00 Test Item Value Reference Range Interpretation Comments Segs (test code = Segs) 63.1 45.0-75.0 [facility] CenterZwiuvipDZTQYJOPOX4330-79-19 17:59:00 Test Item Value Reference Range Interpretation Comments PTT (test code = PTT) 28.1 s 22.9-35.8 [facility] CenterUuhlikaSCKUDXECKZ3372-27-73 17:59:00 Test Item Value Reference Range Interpretation Comments INR (test code = INR) 1.11 0.85-1.17 [facility] CenterYbuawayCIDHMJWQVN1217-85-35 17:59:00 Test Item Value Reference Range Interpretation Comments PT (test code = PT) 14.6 s 12.0-14.7 [facility]2016-02-19 17:59:00 Test Item Value Reference Range Interpretation Comments UA Urobilinogen (test code = UA <=1.0 mg/dL 0.1-1.0 Urobilinogen) [facility] AND [id number] 17:59:00 Test Item Value Reference Range Interpretation Comments UA Glucose (test code = UA Negative mg/dL Glucose) [facility] AND [id number] 17:59:00 Test Item Value Reference Range Interpretation Comments UA Spec Grav (test code = UA Spec Grav) 1.021 [facility]2016-02-19 17:59:00 Test Item Value Reference Range Interpretation Comments UA pH (test code = UA pH) 5.0 5.0-8.0 [facility]2016-02-19 17:59:00 Test Item Value Reference Range Interpretation Comments UA Protein (test code = UA Negative mg/dL Protein) [facility]2016-02-19 17:59:00 Test Item Value Reference Range Interpretation Comments UA Color (test code = Yellow *NA*(07/02/15 UA Color) 11:59 AM) [facility] AND [id number] 17:59:00 Test Item Value Reference Range Interpretation Comments UA Ketones (test code = UA Negative mg/dL Ketones) [facility] AND [id number] 17:59:00 Test Item Value Reference Range Interpretation Comments UA RBC (test code = 3 See_Comment [Automa son message] The UA RBC) system which ge nerated this result transmit son reference range : <=2. The reference range was not used to interpr et this result as nikki l/abnormal. [facility] AND [id number] 17:59:00 Test Item Value Reference Range Interpretation Comments UA Mucus (test code = UA Mucus) Few /LPF [facility] AND [id number] 17:59:00 Test Item Value Reference Range Interpretation Comments UA Turbidity (test code Marked *ABN*(07/02/15 = UA Turbidity) 11:59 AM) [facility] AND [id number] 17:59:00 Test Item Value Reference Range Interpretation Comments UA WBC (test code = 1 See_Comment [Automa son message] The UA WBC) system which ge nerated this result transmit son reference range : <=5. The reference range was not used to interpr et this result as nikki l/abnormal. [facility] AND [id number] 17:59:00 Test Item Value Reference Range Interpretation Comments UA Bili (test code = Negative *NA*(07/02/15 UA Bili) 11:59 AM) [facility] AND [id number] 17:59:00 Test Item Value Reference Range Interpretation Comments UA Nitrite (test code Negative (07/02/15 11:59 = UA Nitrite) AM) [facility] AND [id number] 17:59:00 Test Item Value Reference Range Interpretation Comments UA Hyal Cast (test 3 See_Comment [Automat ed message] The code = UA Hyal Cast) system which generated this result transmit son reference range : <=2. The reference range was not used to interpr et this result as nikki l/abnormal. [facility] AND [id number] 17:59:00 Test Item Value Reference Range Interpretation Comments UA Blood (test code = Negative (07/02/15 11:59 UA Blood) AM) [facility] [id number] 17:59:00 Test Item Value Reference Range Interpretation Comments UA Leuk Est (test Negative (07/02/15 11:59 code = UA Leuk Est) AM) [facility] [id number] 17:59:00 Test Item Value Reference Range Interpretation Comments UA Sq Epi (test code = UA Sq Epi) Many /LPF [facility] [employer] [id number] 17:59:00 Test Item Value Reference Range Interpretation Comments Antibody Scrn (test Negative (07/02/15 code = Antibody Scrn) 11:59 AM) [facility] [employer] [id number] 17:59:00 Test Item Value Reference Range Interpretation Comments ABO/Rh (test code = ABO/Rh) O POS [facility] [employer] [id number] 17:59:00 Test Item Value Reference Range Interpretation Comments Globulin (test code = Globulin) 4.0 2.0-4.0 [facility] [employer] [id number] 17:59:00 Test Item Value Reference Range Interpretation Comments B/C Ratio (test code = B/C Ratio) 18 6-25 [facility] [employer] [id number] 17:59:00 Test Item Value Reference Range Interpretation Comments AGAP (test code = AGAP) 11.1 10.0-20.0 [facility] [employer] [id number] 17:59:00 Test Item Value Reference Range Interpretation Comments A/G Ratio (test code = A/G Ratio) 1.0 0.7-1.6 [facility] [employer] [id number] 17:59:00 Test Item Value Reference Range Interpretation Comments eGFR (test code = eGFR) 56 [facility] [employer] [id number] 17:59:00 Test Item Value Reference Range Interpretation Comments Calcium Lvl (test code = Calcium Lvl) 9.4 8.5-10.5 [facility] [employer] [id number] 17:59:00 Test Item Value Reference Range Interpretation Comments Chloride Lvl (test code = Chloride Lvl) 108 95-109 [facility] [employer] [id number] 17:59:00 Test Item Value Reference Range Interpretation Comments Potassium Lvl (test code = Potassium 4.1 3.5-5.1 Lvl) [facility]2016-02-19 17:59:00 Test Item Value Reference Range Interpretation Comments Sodium Lvl (test code = Sodium Lvl) 141 135-145 [facility]2016-02-19 17:59:00 Test Item Value Reference Range Interpretation Comments Creatinine Lvl (test code = Creatinine 1.01 0.50-1.40 Lvl) [facility]2016-02-19 17:59:00 Test Item Value Reference Range Interpretation Comments BUN (test code = BUN) 18 7-22 [facility]2016-02-19 17:59:00 Test Item Value Reference Range Interpretation Comments Glucose Lvl (test code = Glucose Lvl) 102 70-99 [facility]2016-02-19 17:59:00 Test Item Value Reference Range Interpretation Comments Alk Phos (test code = Alk Phos) 83 39-136 [facility]2016-02-19 17:59:00 Test Item Value Reference Range Interpretation Comments AST (test code = AST) 13 See_Comment [Auto mated message] The system which ge nerated this result transmit son reference range : <=37. The reference range was not used to interpr et this result as nikki l/abnormal. [facility]2016-02-19 17:59:00 Test Item Value Reference Range Interpretation Comments Total Protein (test code = Total 8.1 6.4-8.4 Protein) [facility]2016-02-19 17:59:00 Test Item Value Reference Range Interpretation Comments Bili Total (test code = Bili Total) 0.6 0.2-1.3 [facility]2016-02-19 17:59:00 Test Item Value Reference Range Interpretation Comments CO2 (test code = CO2) 26 24-32 [place] [id number] 17:59:00 Test Item Value Reference Range Interpretation Comments Albumin Lvl (test code = Albumin Lvl) 4.1 3.5-5.0 [facility]2016-02-19 17:59:00 Test Item Value Reference Range Interpretation Comments ALT (test code = ALT) 36 See_Comment [Auto mated message] The system which ge nerated this result transmit son reference range : <=65. The reference range was not used to interpr et this result as nikki l/abnormal. [facility]BcinougWTSFZIEGZU0788-39-59 17:59:00 Test Item Value Reference Range Interpretation Comments MCHC (test code = MCHC) 33.7 32.0-36.0 [facility] CenterLzbltebUEFXYAKCQE9859-71-42 17:59:00 Test Item Value Reference Range Interpretation Comments Hgb (test code = Hgb) 13.6 12.0-16.0 [facility] CenterYkeblzcBEAOLQUCQB1871-46-57 17:59:00 Test Item Value Reference Range Interpretation Comments MCV (test code = MCV) 90.4 80.0-98.0 [facility] CenterVpismzdNYXSEPBEWH0423-83-41 17:59:00 Test Item Value Reference Range Interpretation Comments Hct (test code = Hct) 40.4 36.0-48.0 [facility] CenterMpthnwrLRAKFAETYP6882-57-99 17:59:00 Test Item Value Reference Range Interpretation Comments MCH (test code = MCH) 30.5 pg 27.0-31.0 [facility] CenterRmcpyvsZUXDTBYQIO4173-93-92 17:59:00 Test Item Value Reference Range Interpretation Comments Platelet (test code = Platelet) 241 133-450 [facility] CenterZvfzizfOESDQBJNCP5583-60-90 17:59:00 Test Item Value Reference Range Interpretation Comments RDW (test code = RDW) 13.2 11.5-14.5 [facility] CenterItwbgqeQLOJFPGPLD2821-24-31 17:59:00 Test Item Value Reference Range Interpretation Comments MPV (test code = MPV) 8.7 7.4-10.4 [facility] CenterBhawuomXOLFNWXVOJ9503-87-61 17:59:00 Test Item Value Reference Range Interpretation Comments RBC (test code = RBC) 4.47 4.20-5.40 [facility] CenterVpkzgwvYJNGEXIHFD4336-76-87 17:59:00 Test Item Value Reference Range Interpretation Comments WBC (test code = WBC) 6.5 3.7-10.4 [facility] CenterLydfcbeFICRMGOKQV8719-16-30 17:59:00 Test Item Value Reference Range Interpretation Comments Eosinophils # (test code 0.1 See_Comment [A utomated message] The = Eosinophils #) system whic h generated this result tra nsmitted reference range : <=0.5. The reference r bill was not used to int erpret this result as normal/abnormal . [facility] CenterRhfdxihNBNZUAMSKG5983-12-64 17:59:00 Test Item Value Reference Range Interpretation Comments Monocytes # (test code 0.4 See_Comment [Aut omated message] The = Monocytes #) system which generated this result tra nsmitted reference range : <=0.8. The reference r bill was not used to int erpret this result as normal/abnormal . [facility] CenterVzqunugUBNUJNREOB4912-45-89 17:59:00 Test Item Value Reference Range Interpretation Comments Lymphocytes # (test code = Lymphocytes 1.9 1.0-5.5 #) [facility] CenterEtlowquJRXHNDCLUG8687-17-84 17:59:00 Test Item Value Reference Range Interpretation Comments Segs-Bands # (test code = Segs-Bands #) 4.1 1.5-8.1 [facility] CenterKurcvpbJROGFBBNMH7863-42-10 17:59:00 Test Item Value Reference Range Interpretation Comments Monocytes (test code = Monocytes) 5.6 2.0-12.0 [facility] CenterHlkikffEDCBVPCPTN5424-61-00 17:59:00 Test Item Value Reference Range Interpretation Comments Eosinophils (test code = 1.3 See_Comment [A utomated message] The Eosinophils) system which ge nerated this result tra nsmitted reference range : <=4.0. The reference r bill was not used to int erpret this result as normal/abnormal . [facility] CenterIezemgqTWYFWUZDAX7377-88-60 17:59:00 Test Item Value Reference Range Interpretation Comments Lymphocytes (test code = Lymphocytes) 29.2 20.0-40.0 [facility] CenterZdfuryxTICLZVOBYB8083-56-75 17:59:00 Test Item Value Reference Range Interpretation Comments Basophils (test code = 0.8 See_Comment [Aut omated message] The Basophils) system which ge nerated this result tra nsmitted reference range : <=1.0. The reference r bill was not used to int erpret this result as normal/abnormal . [facility] CenterIohhwdxEQPTINVSFL9029-08-30 17:59:00 Test Item Value Reference Range Interpretation Comments Segs (test code = Segs) 63.1 45.0-75.0 [facility] CenterOhqfvakSNHBCMJLEF9082-17-26 17:59:00 Test Item Value Reference Range Interpretation Comments PTT (test code = PTT) 28.1 s 22.9-35.8 [facility] CenterGothigyITXLVMBRPI5922-38-90 17:59:00 Test Item Value Reference Range Interpretation Comments INR (test code = INR) 1.11 0.85-1.17 [facility] CenterTwuzwmiEIUKPYOTBK2302-14-91 17:59:00 Test Item Value Reference Range Interpretation Comments PT (test code = PT) 14.6 s 12.0-14.7 [facility] AND [id number] 17:59:00 Test Item Value Reference Range Interpretation Comments UA Urobilinogen (test code = UA <=1.0 mg/dL 0.1-1.0 Urobilinogen) [facility] AND [id number] 17:59:00 Test Item Value Reference Range Interpretation Comments UA Glucose (test code = UA Negative mg/dL Glucose) [facility] AND [id number] 17:59:00 Test Item Value Reference Range Interpretation Comments UA Spec Grav (test code = UA Spec Grav) 1.021 [facility] AND [id number] 17:59:00 Test Item Value Reference Range Interpretation Comments UA pH (test code = UA pH) 5.0 5.0-8.0 [facility] AND [id number] 17:59:00 Test Item Value Reference Range Interpretation Comments UA Protein (test code = UA Negative mg/dL Protein) [facility] AND [id number] 17:59:00 Test Item Value Reference Range Interpretation Comments UA Color (test code = Yellow *NA*(07/02/15 UA Color) 11:59 AM) [facility] AND [id number] 17:59:00 Test Item Value Reference Range Interpretation Comments UA Ketones (test code = UA Negative mg/dL Ketones) [facility] AND [id number] 17:59:00 Test Item Value Reference Range Interpretation Comments UA RBC (test code = 3 See_Comment [Automa son message] The UA RBC) system which ge nerated this result transmit son reference range : <=2. The reference range was not used to interpr et this result as nikki l/abnormal. [facility] AND [id number] 17:59:00 Test Item Value Reference Range Interpretation Comments UA Mucus (test code = UA Mucus) Few /LPF [facility] AND [id number] 17:59:00 Test Item Value Reference Range Interpretation Comments UA Turbidity (test code Marked *ABN*(07/02/15 = UA Turbidity) 11:59 AM) [facility] [id number] 17:59:00 Test Item Value Reference Range Interpretation Comments UA WBC (test code = 1 See_Comment [Automa son message] The UA WBC) system which ge nerated this result transmit son reference range : <=5. The reference range was not used to interpr et this result as nikki l/abnormal. [facility] [id number] 17:59:00 Test Item Value Reference Range Interpretation Comments UA Bili (test code = Negative *NA*(07/02/15 UA Bili) 11:59 AM) [facility] AND [id number] 17:59:00 Test Item Value Reference Range Interpretation Comments UA Nitrite (test code Negative (07/02/15 11:59 = UA Nitrite) AM) [facility] AND [id number] 17:59:00 Test Item Value Reference Range Interpretation Comments UA Hyal Cast (test 3 See_Comment [Automat ed message] The code = UA Hyal Cast) system which generated this result transmit son reference range : <=2. The reference range was not used to interpr et this result as nikki l/abnormal. [facility] [id number] 17:59:00 Test Item Value Reference Range Interpretation Comments UA Blood (test code = Negative (07/02/15 11:59 UA Blood) AM) [facility] AND [id number] 17:59:00 Test Item Value Reference Range Interpretation Comments UA Leuk Est (test Negative (07/02/15 11:59 code = UA Leuk Est) AM) [facility] AND [id number] 17:59:00 Test Item Value Reference Range Interpretation Comments UA Sq Epi (test code = UA Sq Epi) Many /LPF [facility] [employer] [id number] 17:59:00 Test Item Value Reference Range Interpretation Comments Antibody Scrn (test Negative (07/02/15 code = Antibody Scrn) 11:59 AM) [facility] [employer] [id number] 17:59:00 Test Item Value Reference Range Interpretation Comments ABO/Rh (test code = ABO/Rh) O POS [facility]2016-02-19 17:59:00 Test Item Value Reference Range Interpretation Comments Globulin (test code = Globulin) 4.0 2.0-4.0 [facility]2016-02-19 17:59:00 Test Item Value Reference Range Interpretation Comments B/C Ratio (test code = B/C Ratio) 18 6-25 [facility]2016-02-19 17:59:00 Test Item Value Reference Range Interpretation Comments AGAP (test code = AGAP) 11.1 10.0-20.0 [facility]2016-02-19 17:59:00 Test Item Value Reference Range Interpretation Comments A/G Ratio (test code = A/G Ratio) 1.0 0.7-1.6 [facility]2016-02-19 17:59:00 Test Item Value Reference Range Interpretation Comments eGFR (test code = eGFR) 56 [facility]2016-02-19 17:59:00 Test Item Value Reference Range Interpretation Comments Calcium Lvl (test code = Calcium Lvl) 9.4 8.5-10.5 [facility]2016-02-19 17:59:00 Test Item Value Reference Range Interpretation Comments Chloride Lvl (test code = Chloride Lvl) 108 95-109 [facility]2016-02-19 17:59:00 Test Item Value Reference Range Interpretation Comments Potassium Lvl (test code = Potassium 4.1 3.5-5.1 Lvl) [facility]2016-02-19 17:59:00 Test Item Value Reference Range Interpretation Comments Sodium Lvl (test code = Sodium Lvl) 141 135-145 [facility]2016-02-19 17:59:00 Test Item Value Reference Range Interpretation Comments Creatinine Lvl (test code = Creatinine 1.01 0.50-1.40 Lvl) [facility]2016-02-19 17:59:00 Test Item Value Reference Range Interpretation Comments BUN (test code = BUN) 18 7-22 [facility]2016-02-19 17:59:00 Test Item Value Reference Range Interpretation Comments Glucose Lvl (test code = Glucose Lvl) 102 70-99 [facility]2016-02-19 17:59:00 Test Item Value Reference Range Interpretation Comments Alk Phos (test code = Alk Phos) 83 39-136 [facility]2016-02-19 17:59:00 Test Item Value Reference Range Interpretation Comments AST (test code = AST) 13 See_Comment [Auto mated message] The system which ge nerated this result transmit son reference range : <=37. The reference range was not used to interpr et this result as nikki l/abnormal. [facility]2016-02-19 17:59:00 Test Item Value Reference Range Interpretation Comments Total Protein (test code = Total 8.1 6.4-8.4 Protein) [facility]2016-02-19 17:59:00 Test Item Value Reference Range Interpretation Comments Bili Total (test code = Bili Total) 0.6 0.2-1.3 [facility]2016-02-19 17:59:00 Test Item Value Reference Range Interpretation Comments CO2 (test code = CO2) 26 24-32 [facility]2016-02-19 17:59:00 Test Item Value Reference Range Interpretation Comments Albumin Lvl (test code = Albumin Lvl) 4.1 3.5-5.0 [facility]2016-02-19 17:59:00 Test Item Value Reference Range Interpretation Comments ALT (test code = ALT) 36 See_Comment [Auto mated message] The system which ge nerated this result transmit son reference range : <=65. The reference range was not used to interpr et this result as nikki l/abnormal. [facility] C[id number] 17:59:00 Test Item Value Reference Range Interpretation Comments MCHC (test code = MCHC) 33.7 32.0-36.0 [facility] CenterM[id number] 17:59:00 Test Item Value Reference Range Interpretation Comments Hgb (test code = Hgb) 13.6 12.0-16.0 [facility] CenterEnmchocWCXYPJASOZ0736-29-59 17:59:00 Test Item Value Reference Range Interpretation Comments MCV (test code = MCV) 90.4 80.0-98.0 [facility] CenterZprljuyYKOQQIMGIX1808-94-55 17:59:00 Test Item Value Reference Range Interpretation Comments Hct (test code = Hct) 40.4 36.0-48.0 [facility] CenterBjtvnftDUGRFWMFZU1086-41-55 17:59:00 Test Item Value Reference Range Interpretation Comments MCH (test code = MCH) 30.5 pg 27.0-31.0 [facility] CenterPqgjvuxRSIRUAOVFU2070-93-76 17:59:00 Test Item Value Reference Range Interpretation Comments Platelet (test code = Platelet) 241 133-450 [facility] CenterAxpnwjbIOMLQSXQLQ7816-46-78 17:59:00 Test Item Value Reference Range Interpretation Comments RDW (test code = RDW) 13.2 11.5-14.5 [facility] CenterJxhoonlDWMQOVYUMU2224-62-31 17:59:00 Test Item Value Reference Range Interpretation Comments MPV (test code = MPV) 8.7 7.4-10.4 [facility] CenterPjgnagbARULHOYFNS4244-62-16 17:59:00 Test Item Value Reference Range Interpretation Comments RBC (test code = RBC) 4.47 4.20-5.40 [facility] CenterKihqylpTTWQIQJCIC3057-12-48 17:59:00 Test Item Value Reference Range Interpretation Comments WBC (test code = WBC) 6.5 3.7-10.4 [facility] CenterAvifuufKACSORAXMD9920-44-90 17:59:00 Test Item Value Reference Range Interpretation Comments Eosinophils # (test code 0.1 See_Comment [A utomated message] The = Eosinophils #) system whic h generated this result tra nsmitted reference range : <=0.5. The reference r bill was not used to int erpret this result as normal/abnormal . [facility] CenterWxsphwnHJYEPWPMHY3415-13-42 17:59:00 Test Item Value Reference Range Interpretation Comments Monocytes # (test code 0.4 See_Comment [Aut omated message] The = Monocytes #) system which generated this result tra nsmitted reference range : <=0.8. The reference r bill was not used to int erpret this result as normal/abnormal . [facility] CenterKreawolKZPBHJGAFR4650-83-02 17:59:00 Test Item Value Reference Range Interpretation Comments Lymphocytes # (test code = Lymphocytes 1.9 1.0-5.5 #) [facility] CenterRyddvbhFFEQKFIHHX6710-33-29 17:59:00 Test Item Value Reference Range Interpretation Comments Segs-Bands # (test code = Segs-Bands #) 4.1 1.5-8.1 [place] [id number] 17:59:00 Test Item Value Reference Range Interpretation Comments Monocytes (test code = Monocytes) 5.6 2.0-12.0 [facility] CenterZwikzifDOEHIRWEND1577-02-03 17:59:00 Test Item Value Reference Range Interpretation Comments Eosinophils (test code = 1.3 See_Comment [A utomated message] The Eosinophils) system which ge nerated this result tra nsmitted reference range : <=4.0. The reference r bill was not used to int erpret this result as normal/abnormal . [facility] CenterPrwnicpPJNTODBBTL6147-11-32 17:59:00 Test Item Value Reference Range Interpretation Comments Lymphocytes (test code = Lymphocytes) 29.2 20.0-40.0 [facility] CenterKamhialSBJBWIDHRR2769-87-95 17:59:00 Test Item Value Reference Range Interpretation Comments Basophils (test code = 0.8 See_Comment [Aut omated message] The Basophils) system which ge nerated this result tra nsmitted reference range : <=1.0. The reference r bill was not used to int erpret this result as normal/abnormal . [facility] CenterPsukqvzJSANSTBLER4065-05-81 17:59:00 Test Item Value Reference Range Interpretation Comments Segs (test code = Segs) 63.1 45.0-75.0 [facility] CenterYcoyqkmLRNAQLMFZO6684-11-41 17:59:00 Test Item Value Reference Range Interpretation Comments PTT (test code = PTT) 28.1 s 22.9-35.8 [facility] CenterQxrdjmhJRVXCNCSPX0393-40-19 17:59:00 Test Item Value Reference Range Interpretation Comments INR (test code = INR) 1.11 0.85-1.17 [facility] CenterDoojoajTFCFYOTOGE9826-09-13 17:59:00 Test Item Value Reference Range Interpretation Comments PT (test code = PT) 14.6 s 12.0-14.7 [facility]2016-02-19 17:59:00 Test Item Value Reference Range Interpretation Comments UA Urobilinogen (test code = UA <=1.0 mg/dL 0.1-1.0 Urobilinogen) [facility]2016-02-19 17:59:00 Test Item Value Reference Range Interpretation Comments UA Glucose (test code = UA Negative mg/dL Glucose) [facility]2016-02-19 17:59:00 Test Item Value Reference Range Interpretation Comments UA Spec Grav (test code = UA Spec Grav) 1.021 [facility] AND [id number] 17:59:00 Test Item Value Reference Range Interpretation Comments UA pH (test code = UA pH) 5.0 5.0-8.0 [facility] AND [id number] 17:59:00 Test Item Value Reference Range Interpretation Comments UA Protein (test code = UA Negative mg/dL Protein) [facility] AND [id number] 17:59:00 Test Item Value Reference Range Interpretation Comments UA Color (test code = Yellow *NA*(07/02/15 UA Color) 11:59 AM) [facility] AND [id number] 17:59:00 Test Item Value Reference Range Interpretation Comments UA Ketones (test code = UA Negative mg/dL Ketones) [facility] AND [id number] 17:59:00 Test Item Value Reference Range Interpretation Comments UA RBC (test code = 3 See_Comment [Automa son message] The UA RBC) system which ge nerated this result transmit son reference range : <=2. The reference range was not used to interpr et this result as nikki l/abnormal. [facility] AND [id number] 17:59:00 Test Item Value Reference Range Interpretation Comments UA Mucus (test code = UA Mucus) Few /LPF [facility] AND [id number] 17:59:00 Test Item Value Reference Range Interpretation Comments UA Turbidity (test code Marked *ABN*(07/02/15 = UA Turbidity) 11:59 AM) [facility] AND [id number] 17:59:00 Test Item Value Reference Range Interpretation Comments UA WBC (test code = 1 See_Comment [Automa son message] The UA WBC) system which ge nerated this result transmit osn reference range : <=5. The reference range was not used to interpr et this result as nikki l/abnormal. [facility] AND [id number] 17:59:00 Test Item Value Reference Range Interpretation Comments UA Bili (test code = Negative *NA*(07/02/15 UA Bili) 11:59 AM) [facility] AND [id number] 17:59:00 Test Item Value Reference Range Interpretation Comments UA Nitrite (test code Negative (07/02/15 11:59 = UA Nitrite) AM) [facility] AND [id number] 17:59:00 Test Item Value Reference Range Interpretation Comments UA Hyal Cast (test 3 See_Comment [Automat ed message] The code = UA Hyal Cast) system which generated this result transmit son reference range : <=2. The reference range was not used to interpr et this result as nikki l/abnormal. [facility] AND [id number] 17:59:00 Test Item Value Reference Range Interpretation Comments UA Blood (test code = Negative (07/02/15 11:59 UA Blood) AM) [facility] AND [id number] 17:59:00 Test Item Value Reference Range Interpretation Comments UA Leuk Est (test Negative (07/02/15 11:59 code = UA Leuk Est) AM) [facility] AND [id number] 17:59:00 Test Item Value Reference Range Interpretation Comments UA Sq Epi (test code = UA Sq Epi) Many /LPF [facility] [id number] 17:17:00 Test Item Value Reference Range Interpretation Comments RBC product (test code Product available = RBC product) 1(07/02/15 11:17 AM) [facility] [id number] 17:17:00 Test Item Value Reference Range Interpretation Comments RBC product (test code Product available = RBC product) 1(07/02/15 11:17 AM) [facility] [id number] 17:17:00 Test Item Value Reference Range Interpretation Comments RBC product (test code Product available = RBC product) 1(07/02/15 11:17 AM) [facility] [id number] 17:17:00 Test Item Value Reference Range Interpretation Comments RBC product (test code Product available = RBC product) 1(07/02/15 11:17 AM) [facility] [id number] 11:47:00 Test Item Value Reference Range Interpretation Comments ABO/Rh (test code = ABO/Rh) O POS [facility] [id number] 11:47:00 Test Item Value Reference Range Interpretation Comments Antibody Scrn (test Negative (08/11/14 6:47 code = Antibody Scrn) AM) [facility]2015-03-31 11:47:00 Test Item Value Reference Range Interpretation Comments Albumin Lvl (test code = Albumin Lvl) 3.4 3.5-5.0 [facility]2015-03-31 11:47:00 Test Item Value Reference Range Interpretation Comments Calcium Lvl (test code = Calcium Lvl) 8.5 8.5-10.5 [facility]2015-03-31 11:47:00 Test Item Value Reference Range Interpretation Comments eGFR (test code = eGFR) 57 [facility]2015-03-31 11:47:00 Test Item Value Reference Range Interpretation Comments Creatinine Lvl (test code = Creatinine 1.0 0.5-1.4 Lvl) [facility]2015-03-31 11:47:00 Test Item Value Reference Range Interpretation Comments Sodium Lvl (test code = Sodium Lvl) 142 135-145 [facility]2015-03-31 11:47:00 Test Item Value Reference Range Interpretation Comments Potassium Lvl (test code = Potassium 4.1 3.5-5.1 Lvl) [facility]2015-03-31 11:47:00 Test Item Value Reference Range Interpretation Comments Chloride Lvl (test code = Chloride Lvl) 110 95-109 [facility]2015-03-31 11:47:00 Test Item Value Reference Range Interpretation Comments Alk Phos (test code = Alk Phos) 66 39-136 [facility]2015-03-31 11:47:00 Test Item Value Reference Range Interpretation Comments Bili Total (test code = Bili Total) 0.3 0.2-1.3 [facility]2015-03-31 11:47:00 Test Item Value Reference Range Interpretation Comments AST (test code = AST) 13 See_Comment [Auto mated message] The system which ge nerated this result transmit son reference range : <=37. The reference range was not used to interpr et this result as nikki l/abnormal. [facility]2015-03-31 11:47:00 Test Item Value Reference Range Interpretation Comments ALT (test code = ALT) 16 See_Comment [Auto mated message] The system which ge nerated this result transmit son reference range : <=65. The reference range was not used to interpr et this result as nikki l/abnormal. [facility]2015-03-31 11:47:00 Test Item Value Reference Range Interpretation Comments Total Protein (test code = Total 7.4 6.4-8.4 Protein) [facility]2015-03-31 11:47:00 Test Item Value Reference Range Interpretation Comments CO2 (test code = CO2) 26 24-32 [facility]2015-03-31 11:47:00 Test Item Value Reference Range Interpretation Comments BUN (test code = BUN) 23 7-22 [facility]2015-03-31 11:47:00 Test Item Value Reference Range Interpretation Comments Glucose Lvl (test code = Glucose Lvl) 97 70-99 [facility]2015-03-31 11:47:00 Test Item Value Reference Range Interpretation Comments B/C Ratio (test code = B/C Ratio) 23 6-25 [facility]2015-03-31 11:47:00 Test Item Value Reference Range Interpretation Comments AGAP (test code = AGAP) 10.1 10.0-20.0 [facility]2015-03-31 11:47:00 Test Item Value Reference Range Interpretation Comments Globulin (test code = Globulin) 4.0 2.0-4.0 [facility]2015-03-31 11:47:00 Test Item Value Reference Range Interpretation Comments A/G Ratio (test code = A/G Ratio) 0.8 0.7-1.6 [facility]DixwjtzOEDJWRDIHM0916-24-36 11:47:00 Test Item Value Reference Range Interpretation Comments MPV (test code = MPV) 8.9 7.4-10.4 [facility] CenterKtajcpoBHOPXAFXTZ2820-49-99 11:47:00 Test Item Value Reference Range Interpretation Comments Platelet (test code = Platelet) 215 133-450 [facility] CenterGfoorcqFEOGLULPDQ2341-96-81 11:47:00 Test Item Value Reference Range Interpretation Comments Hgb (test code = Hgb) 12.0 12.0-16.0 [facility] CenterGweyzslDNBQKFAMKD2805-00-44 11:47:00 Test Item Value Reference Range Interpretation Comments RBC (test code = RBC) 3.88 4.20-5.40 [facility] CenterXndobedKCMRJOESXI7074-11-15 11:47:00 Test Item Value Reference Range Interpretation Comments WBC (test code = WBC) 6.7 3.7-10.4 [facility] CenterExtxwatRNIDVMFVQK4818-98-14 11:47:00 Test Item Value Reference Range Interpretation Comments RDW (test code = RDW) 13.6 11.5-14.5 [facility] CenterOihpmtlNUYPKNBEIV7230-30-04 11:47:00 Test Item Value Reference Range Interpretation Comments MCHC (test code = MCHC) 34.0 32.0-36.0 [facility] CenterWedxvsgGWHTFURUUF3018-41-19 11:47:00 Test Item Value Reference Range Interpretation Comments MCH (test code = MCH) 30.9 pg 27.0-31.0 [facility] CenterWetzrqpDILLHMHGET1683-66-44 11:47:00 Test Item Value Reference Range Interpretation Comments MCV (test code = MCV) 90.7 80.0-98.0 [facility] CenterNphgpjaJYUVKZTRWM6814-20-33 11:47:00 Test Item Value Reference Range Interpretation Comments Hct (test code = Hct) 35.2 36.0-48.0 [facility] CenterOnhbataHJOBZGNYAB1878-31-65 11:47:00 Test Item Value Reference Range Interpretation Comments Segs-Bands # (test code = Segs-Bands #) 3.9 1.5-8.1 [facility] CenterXyedsqbFMVPUNMSCA4466-41-66 11:47:00 Test Item Value Reference Range Interpretation Comments Lymphocytes # (test code = Lymphocytes 2.1 1.0-5.5 #) [facility] CenterIqrfdtcAEFHRTNYCM6731-40-37 11:47:00 Test Item Value Reference Range Interpretation Comments Monocytes (test code = Monocytes) 7.2 2.0-12.0 [facility] CenterFezmbfyNINKGMUDBX0062-37-10 11:47:00 Test Item Value Reference Range Interpretation Comments Eosinophils (test code = 2.9 See_Comment [A utomated message] The Eosinophils) system which ge nerated this result tra nsmitted reference range : <=4.0. The reference r bill was not used to int erpret this result as normal/abnormal . [facility] CenterEvtnahaONNUTZBUFS4413-17-03 11:47:00 Test Item Value Reference Range Interpretation Comments Basophils (test code = 0.6 See_Comment [Aut omated message] The Basophils) system which ge nerated this result tra nsmitted reference range : <=1.0. The reference r bill was not used to int erpret this result as normal/abnormal . [facility] CenterBkxoleiGGIVMFHUZG6390-58-84 11:47:00 Test Item Value Reference Range Interpretation Comments Monocytes # (test code 0.5 See_Comment [Aut omated message] The = Monocytes #) system which generated this result tra nsmitted reference range : <=0.8. The reference r bill was not used to int erpret this result as normal/abnormal . [facility] CenterRmesvgcIHZKTYJSEC4522-38-10 11:47:00 Test Item Value Reference Range Interpretation Comments Eosinophils # (test code 0.2 See_Comment [A utomated message] The = Eosinophils #) system whic h generated this result tra nsmitted reference range : <=0.5. The reference r bill was not used to int erpret this result as normal/abnormal . [facility] CenterPfdxfbaJYIWBBGFRP1784-21-50 11:47:00 Test Item Value Reference Range Interpretation Comments Lymphocytes (test code = Lymphocytes) 31.7 20.0-40.0 [facility] CenterOheygmqPQYTLYNASZ9683-75-35 11:47:00 Test Item Value Reference Range Interpretation Comments Segs (test code = Segs) 57.6 45.0-75.0 [facility] CenterMopfslhHGVFDHSTWC8973-57-25 11:47:00 Test Item Value Reference Range Interpretation Comments INR (test code = INR) 1.00 0.85-1.17 [facility] CenterRvgarjgXIZSLJRJCT4944-90-87 11:47:00 Test Item Value Reference Range Interpretation Comments PTT (test code = PTT) 28.3 s 22.9-35.8 [facility]HhpcpcbVAMXKKYRNK5004-37-28 11:47:00 Test Item Value Reference Range Interpretation Comments PT (test code = PT) 13.2 s 12.0-14.7 [facility] GXYYKJG8609-39-50 11:47:00 Test Item Value Reference Range Interpretation Comments ABO/Rh (test code = ABO/Rh) O POS [facility] XCMCJCL0304-30-25 11:47:00 Test Item Value Reference Range Interpretation Comments Antibody Scrn (test Negative (3/31/15 6:47 code = Antibody Scrn) AM) [facility]2015-03-31 11:47:00 Test Item Value Reference Range Interpretation Comments Albumin Lvl (test code = Albumin Lvl) 3.4 3.5-5.0 [facility]2015-03-31 11:47:00 Test Item Value Reference Range Interpretation Comments Calcium Lvl (test code = Calcium Lvl) 8.5 8.5-10.5 [facility]2015-03-31 11:47:00 Test Item Value Reference Range Interpretation Comments eGFR (test code = eGFR) 57 [facility]2015-03-31 11:47:00 Test Item Value Reference Range Interpretation Comments Creatinine Lvl (test code = Creatinine 1.0 0.5-1.4 Lvl) [facility]2015-03-31 11:47:00 Test Item Value Reference Range Interpretation Comments Sodium Lvl (test code = Sodium Lvl) 142 135-145 [place] 390705-03-31 11:47:00 Test Item Value Reference Range Interpretation Comments Potassium Lvl (test code = Potassium 4.1 3.5-5.1 Lvl) [facility]2015-03-31 11:47:00 Test Item Value Reference Range Interpretation Comments Chloride Lvl (test code = Chloride Lvl) 110 95-109 [facility]2015-03-31 11:47:00 Test Item Value Reference Range Interpretation Comments Alk Phos (test code = Alk Phos) 66 39-136 [facility]2015-03-31 11:47:00 Test Item Value Reference Range Interpretation Comments Bili Total (test code = Bili Total) 0.3 0.2-1.3 [facility]2015-03-31 11:47:00 Test Item Value Reference Range Interpretation Comments AST (test code = AST) 13 See_Comment [Auto mated message] The system which ge nerated this result transmit son reference range : <=37. The reference range was not used to interpr et this result as nikki l/abnormal. [facility]2015-03-31 11:47:00 Test Item Value Reference Range Interpretation Comments ALT (test code = ALT) 16 See_Comment [Auto mated message] The system which ge nerated this result transmit son reference range : <=65. The reference range was not used to interpr et this result as nikki l/abnormal. [facility]2015-03-31 11:47:00 Test Item Value Reference Range Interpretation Comments Total Protein (test code = Total 7.4 6.4-8.4 Protein) [facility]2015-03-31 11:47:00 Test Item Value Reference Range Interpretation Comments CO2 (test code = CO2) 26 24-32 [facility]2015-03-31 11:47:00 Test Item Value Reference Range Interpretation Comments BUN (test code = BUN) 23 7-22 [facility]2015-03-31 11:47:00 Test Item Value Reference Range Interpretation Comments Glucose Lvl (test code = Glucose Lvl) 97 70-99 [facility]2015-03-31 11:47:00 Test Item Value Reference Range Interpretation Comments B/C Ratio (test code = B/C Ratio) 23 6-25 [facility]2015-03-31 11:47:00 Test Item Value Reference Range Interpretation Comments AGAP (test code = AGAP) 10.1 10.0-20.0 [facility]2015-03-31 11:47:00 Test Item Value Reference Range Interpretation Comments Globulin (test code = Globulin) 4.0 2.0-4.0 [facility]2015-03-31 11:47:00 Test Item Value Reference Range Interpretation Comments A/G Ratio (test code = A/G Ratio) 0.8 0.7-1.6 [facility] CenterRnzkxrbBZCQVIAKLO0756-24-33 11:47:00 Test Item Value Reference Range Interpretation Comments MPV (test code = MPV) 8.9 7.4-10.4 [facility] CenterJpjptfdABEMOFYEDH4165-36-76 11:47:00 Test Item Value Reference Range Interpretation Comments Platelet (test code = Platelet) 215 133-450 [facility] CenterHskphkrEYDQPQNVLE7664-03-92 11:47:00 Test Item Value Reference Range Interpretation Comments Hgb (test code = Hgb) 12.0 12.0-16.0 [facility] CenterZyuoioeKTBVHKUZQQ3993-18-21 11:47:00 Test Item Value Reference Range Interpretation Comments RBC (test code = RBC) 3.88 4.20-5.40 [place] 025735-03-31 11:47:00 Test Item Value Reference Range Interpretation Comments WBC (test code = WBC) 6.7 3.7-10.4 [facility] CenterIspyhueQHNQLCTTHI9704-02-05 11:47:00 Test Item Value Reference Range Interpretation Comments RDW (test code = RDW) 13.6 11.5-14.5 [facility] CenterSgievfdJXLGRJGKUM9462-94-26 11:47:00 Test Item Value Reference Range Interpretation Comments MCHC (test code = MCHC) 34.0 32.0-36.0 [facility] CenterClbonioYUUKEPZNJF5718-91-52 11:47:00 Test Item Value Reference Range Interpretation Comments MCH (test code = MCH) 30.9 pg 27.0-31.0 [facility] CenterEoficvaCRFVIEQJQC1171-27-10 11:47:00 Test Item Value Reference Range Interpretation Comments MCV (test code = MCV) 90.7 80.0-98.0 [facility] CenterQweefzkSNDNAZYRBL3893-84-35 11:47:00 Test Item Value Reference Range Interpretation Comments Hct (test code = Hct) 35.2 36.0-48.0 [facility] CenterUgqxlxpMKYXONZJED0002-43-79 11:47:00 Test Item Value Reference Range Interpretation Comments Segs-Bands # (test code = Segs-Bands #) 3.9 1.5-8.1 [facility] CenterIrlibstLJUZOCBXYY6223-02-61 11:47:00 Test Item Value Reference Range Interpretation Comments Lymphocytes # (test code = Lymphocytes 2.1 1.0-5.5 #) [facility] CenterMbxmezhFYRBRLKWNO3591-86-16 11:47:00 Test Item Value Reference Range Interpretation Comments Monocytes (test code = Monocytes) 7.2 2.0-12.0 [facility] CenterHfqdbykHPOQVWYUBQ8086-78-29 11:47:00 Test Item Value Reference Range Interpretation Comments Eosinophils (test code = 2.9 See_Comment [A utomated message] The Eosinophils) system which ge nerated this result tra nsmitted reference range : <=4.0. The reference r bill was not used to int erpret this result as normal/abnormal . [facility] CenterLwixgihTNCBSCYGYB2703-14-45 11:47:00 Test Item Value Reference Range Interpretation Comments Basophils (test code = 0.6 See_Comment [Aut omated message] The Basophils) system which ge nerated this result tra nsmitted reference range : <=1.0. The reference r bill was not used to int erpret this result as normal/abnormal . [facility] CenterRaaplctEYIJEYFQEZ0307-94-12 11:47:00 Test Item Value Reference Range Interpretation Comments Monocytes # (test code 0.5 See_Comment [Aut omated message] The = Monocytes #) system which generated this result tra nsmitted reference range : <=0.8. The reference r blil was not used to int erpret this result as normal/abnormal . [facility] CenterFjuwmrtUHBWLKMZSB6931-45-13 11:47:00 Test Item Value Reference Range Interpretation Comments Eosinophils # (test code 0.2 See_Comment [A utomated message] The = Eosinophils #) system whic h generated this result tra nsmitted reference range : <=0.5. The reference r bill was not used to int erpret this result as normal/abnormal . [facility] CenterNvozsunPHWMZPGIJV2044-54-64 11:47:00 Test Item Value Reference Range Interpretation Comments Lymphocytes (test code = Lymphocytes) 31.7 20.0-40.0 [facility] CenterEvpcxroLYCHMJIKNQ5697-54-76 11:47:00 Test Item Value Reference Range Interpretation Comments Segs (test code = Segs) 57.6 45.0-75.0 [facility] CenterHjswpirKNEJTIGUYF8158-56-13 11:47:00 Test Item Value Reference Range Interpretation Comments INR (test code = INR) 1.00 0.85-1.17 [facility] CenterNmsoyuwPIDPYPDWJE0074-78-18 11:47:00 Test Item Value Reference Range Interpretation Comments PTT (test code = PTT) 28.3 s 22.9-35.8 [facility] CenterRxahhgxYODNQFOBYE7501-55-28 11:47:00 Test Item Value Reference Range Interpretation Comments PT (test code = PT) 13.2 s 12.0-14.7 [facility] NLAIGTW2226-32-66 11:47:00 Test Item Value Reference Range Interpretation Comments ABO/Rh (test code = ABO/Rh) O POS [facility] OTOXDFD1143-13-53 11:47:00 Test Item Value Reference Range Interpretation Comments Antibody Scrn (test Negative (08/11/14 6:47 code = Antibody Scrn) AM) [facility] [id number] 11:47:00 Test Item Value Reference Range Interpretation Comments Albumin Lvl (test code = Albumin Lvl) 3.4 3.5-5.0 [facility]2015-03-31 11:47:00 Test Item Value Reference Range Interpretation Comments Calcium Lvl (test code = Calcium Lvl) 8.5 8.5-10.5 [facility]2015-03-31 11:47:00 Test Item Value Reference Range Interpretation Comments eGFR (test code = eGFR) 57 [facility]2015-03-31 11:47:00 Test Item Value Reference Range Interpretation Comments Creatinine Lvl (test code = Creatinine 1.0 0.5-1.4 Lvl) [facility]2015-03-31 11:47:00 Test Item Value Reference Range Interpretation Comments Sodium Lvl (test code = Sodium Lvl) 142 135-145 [place] 390705-03-31 11:47:00 Test Item Value Reference Range Interpretation Comments Potassium Lvl (test code = Potassium 4.1 3.5-5.1 Lvl) [facility]2015-03-31 11:47:00 Test Item Value Reference Range Interpretation Comments Chloride Lvl (test code = Chloride Lvl) 110 95-109 [facility]2015-03-31 11:47:00 Test Item Value Reference Range Interpretation Comments Alk Phos (test code = Alk Phos) 66 39-136 [place] 390705-03-31 11:47:00 Test Item Value Reference Range Interpretation Comments Bili Total (test code = Bili Total) 0.3 0.2-1.3 [place] 390705-03-31 11:47:00 Test Item Value Reference Range Interpretation Comments AST (test code = AST) 13 See_Comment [Auto mated message] The system which ge nerated this result transmit son reference range : <=37. The reference range was not used to interpr et this result as nikki l/abnormal. [facility]2015-03-31 11:47:00 Test Item Value Reference Range Interpretation Comments ALT (test code = ALT) 16 See_Comment [Auto mated message] The system which ge nerated this result transmit son reference range : <=65. The reference range was not used to interpr et this result as nikki l/abnormal. [facility]2015-03-31 11:47:00 Test Item Value Reference Range Interpretation Comments Total Protein (test code = Total 7.4 6.4-8.4 Protein) [facility]2015-03-31 11:47:00 Test Item Value Reference Range Interpretation Comments CO2 (test code = CO2) 26 24-32 [facility]2015-03-31 11:47:00 Test Item Value Reference Range Interpretation Comments BUN (test code = BUN) 23 7- [facility]2015-03-31 11:47:00 Test Item Value Reference Range Interpretation Comments Glucose Lvl (test code = Glucose Lvl) 97 70-99 [facility]2015-03-31 11:47:00 Test Item Value Reference Range Interpretation Comments B/C Ratio (test code = B/C Ratio) 23 6-25 [facility]2015-03-31 11:47:00 Test Item Value Reference Range Interpretation Comments AGAP (test code = AGAP) 10.1 10.0-20.0 [facility]2015-03-31 11:47:00 Test Item Value Reference Range Interpretation Comments Globulin (test code = Globulin) 4.0 2.0-4.0 [facility]2015-03-31 11:47:00 Test Item Value Reference Range Interpretation Comments A/G Ratio (test code = A/G Ratio) 0.8 0.7-1.6 [facility] CenterIjpyexrIDJSVRMPHK4877-81-58 11:47:00 Test Item Value Reference Range Interpretation Comments MPV (test code = MPV) 8.9 7.4-10.4 [facility] CenterGtfycytIGDIZDYNED6328-04-06 11:47:00 Test Item Value Reference Range Interpretation Comments Platelet (test code = Platelet) 215 133-450 [facility] CenterTksnsrxLFTHHSTKBC3077-97-83 11:47:00 Test Item Value Reference Range Interpretation Comments Hgb (test code = Hgb) 12.0 12.0-16.0 [facility] CenterGjwoyveZRTIJKQXKU9052-36-52 11:47:00 Test Item Value Reference Range Interpretation Comments RBC (test code = RBC) 3.88 4.20-5.40 [facility] CenterEeaslvqMPMKZQPYLG0183-73-92 11:47:00 Test Item Value Reference Range Interpretation Comments WBC (test code = WBC) 6.7 3.7-10.4 [facility] CenterHlqhcknTFZPNLUGBF4332-22-69 11:47:00 Test Item Value Reference Range Interpretation Comments RDW (test code = RDW) 13.6 11.5-14.5 [facility] CenterEilqttsNQQVRYUEFY4547-33-60 11:47:00 Test Item Value Reference Range Interpretation Comments MCHC (test code = MCHC) 34.0 32.0-36.0 [facility] CenterBotcdsyJRIVDRZGYS5095-60-51 11:47:00 Test Item Value Reference Range Interpretation Comments MCH (test code = MCH) 30.9 pg 27.0-31.0 [facility] CenterDgjrzgnSMNXCXTVUO9823-95-05 11:47:00 Test Item Value Reference Range Interpretation Comments MCV (test code = MCV) 90.7 80.0-98.0 [facility] CenterYcvkipaGZNSCFKCOH6658-53-74 11:47:00 Test Item Value Reference Range Interpretation Comments Hct (test code = Hct) 35.2 36.0-48.0 [facility] CenterJsprojeTUSKFEDIPU8685-98-47 11:47:00 Test Item Value Reference Range Interpretation Comments Segs-Bands # (test code = Segs-Bands #) 3.9 1.5-8.1 [facility] CenterYfjstqwPDYLJCAQSC4045-39-79 11:47:00 Test Item Value Reference Range Interpretation Comments Lymphocytes # (test code = Lymphocytes 2.1 1.0-5.5 #) [facility] CenterOqckjhnEMBPLWCDEB3293-47-33 11:47:00 Test Item Value Reference Range Interpretation Comments Monocytes (test code = Monocytes) 7.2 2.0-12.0 [facility] CenterHndfyguGKJTZJTWJO1320-91-19 11:47:00 Test Item Value Reference Range Interpretation Comments Eosinophils (test code = 2.9 See_Comment [A utomated message] The Eosinophils) system which ge nerated this result tra nsmitted reference range : <=4.0. The reference r bill was not used to int erpret this result as normal/abnormal . [facility] CenterAypghfvMYZBHDVIIF8188-55-90 11:47:00 Test Item Value Reference Range Interpretation Comments Basophils (test code = 0.6 See_Comment [Aut omated message] The Basophils) system which ge nerated this result tra nsmitted reference range : <=1.0. The reference r bill was not used to int erpret this result as normal/abnormal . [facility] CenterHovoogoGARTHHIAUH5646-98-93 11:47:00 Test Item Value Reference Range Interpretation Comments Monocytes # (test code 0.5 See_Comment [Aut omated message] The = Monocytes #) system which generated this result tra nsmitted reference range : <=0.8. The reference r bill was not used to int erpret this result as normal/abnormal . [facility] CenterYlwwpqrWIGJSOWJGK9955-72-03 11:47:00 Test Item Value Reference Range Interpretation Comments Eosinophils # (test code 0.2 See_Comment [A utomated message] The = Eosinophils #) system whic h generated this result tra nsmitted reference range : <=0.5. The reference r bill was not used to int erpret this result as normal/abnormal . [facility] CenterYhbfunzIZIBWFCCVE0791-11-69 11:47:00 Test Item Value Reference Range Interpretation Comments Lymphocytes (test code = Lymphocytes) 31.7 20.0-40.0 [facility] CenterLzgdiyoMMZIGZHQNR1512-27-56 11:47:00 Test Item Value Reference Range Interpretation Comments Segs (test code = Segs) 57.6 45.0-75.0 [facility] CenterSwdhohqEUESJSUKSJ4107-42-45 11:47:00 Test Item Value Reference Range Interpretation Comments INR (test code = INR) 1.00 0.85-1.17 [facility] CenterXkewkqiCDGFVCDHZY3747-66-63 11:47:00 Test Item Value Reference Range Interpretation Comments PTT (test code = PTT) 28.3 s 22.9-35.8 [facility] CenterLkxdqwsUYJQSTPLBS6717-54-73 11:47:00 Test Item Value Reference Range Interpretation Comments PT (test code = PT) 13.2 s 12.0-14.7 [facility] HGJIPUL3452-97-07 11:47:00 Test Item Value Reference Range Interpretation Comments ABO/Rh (test code = ABO/Rh) O POS [facility] TKFBPNT1591-02-74 11:47:00 Test Item Value Reference Range Interpretation Comments Antibody Scrn (test Negative (08/11/14 6:47 code = Antibody Scrn) AM) [facility] [id number] 11:47:00 Test Item Value Reference Range Interpretation Comments Albumin Lvl (test code = Albumin Lvl) 3.4 3.5-5.0 [facility]2015-03-31 11:47:00 Test Item Value Reference Range Interpretation Comments Calcium Lvl (test code = Calcium Lvl) 8.5 8.5-10.5 [facility]2015-03-31 11:47:00 Test Item Value Reference Range Interpretation Comments eGFR (test code = eGFR) 57 [facility]2015-03-31 11:47:00 Test Item Value Reference Range Interpretation Comments Creatinine Lvl (test code = Creatinine 1.0 0.5-1.4 Lvl) [facility]2015-03-31 11:47:00 Test Item Value Reference Range Interpretation Comments Sodium Lvl (test code = Sodium Lvl) 142 135-145 [facility]2015-03-31 11:47:00 Test Item Value Reference Range Interpretation Comments Potassium Lvl (test code = Potassium 4.1 3.5-5.1 Lvl) [facility]2015-03-31 11:47:00 Test Item Value Reference Range Interpretation Comments Chloride Lvl (test code = Chloride Lvl) 110 95-109 [facility]2015-03-31 11:47:00 Test Item Value Reference Range Interpretation Comments Alk Phos (test code = Alk Phos) 66 39-136 [facility]2015-03-31 11:47:00 Test Item Value Reference Range Interpretation Comments Bili Total (test code = Bili Total) 0.3 0.2-1.3 [facility]2015-03-31 11:47:00 Test Item Value Reference Range Interpretation Comments AST (test code = AST) 13 See_Comment [Auto mated message] The system which ge nerated this result transmit son reference range : <=37. The reference range was not used to interpr et this result as nikki l/abnormal. [facility]2015-03-31 11:47:00 Test Item Value Reference Range Interpretation Comments ALT (test code = ALT) 16 See_Comment [Auto mated message] The system which ge nerated this result transmit son reference range : <=65. The reference range was not used to interpr et this result as nikki l/abnormal. [facility]2015-03-31 11:47:00 Test Item Value Reference Range Interpretation Comments Total Protein (test code = Total 7.4 6.4-8.4 Protein) [facility]2015-03-31 11:47:00 Test Item Value Reference Range Interpretation Comments CO2 (test code = CO2) 26 24-32 [facility]2015-03-31 11:47:00 Test Item Value Reference Range Interpretation Comments BUN (test code = BUN) 23 7- [facility]2015-03-31 11:47:00 Test Item Value Reference Range Interpretation Comments Glucose Lvl (test code = Glucose Lvl) 97 70-99 [facility]2015-03-31 11:47:00 Test Item Value Reference Range Interpretation Comments B/C Ratio (test code = B/C Ratio) 23 6- [facility]2015-03-31 11:47:00 Test Item Value Reference Range Interpretation Comments AGAP (test code = AGAP) 10.1 10.0-20.0 [facility]2015-03-31 11:47:00 Test Item Value Reference Range Interpretation Comments Globulin (test code = Globulin) 4.0 2.0-4.0 [facility]2015-03-31 11:47:00 Test Item Value Reference Range Interpretation Comments A/G Ratio (test code = A/G Ratio) 0.8 0.7-1.6 [facility]WzvdpboOBPDNJFWLV3007-81-48 11:47:00 Test Item Value Reference Range Interpretation Comments MPV (test code = MPV) 8.9 7.4-10.4 [facility] CenterZhtcfwfIXCEZPMMSO2024-55-88 11:47:00 Test Item Value Reference Range Interpretation Comments Platelet (test code = Platelet) 215 133-450 [facility] CenterLghjnizBZICANNQRO4946-83-88 11:47:00 Test Item Value Reference Range Interpretation Comments Hgb (test code = Hgb) 12.0 12.0-16.0 [facility] CenterSsspjuhLMZGFXBFME7552-34-95 11:47:00 Test Item Value Reference Range Interpretation Comments RBC (test code = RBC) 3.88 4.20-5.40 [facility] CenterMwryenjSETQKZLLVM0398-07-26 11:47:00 Test Item Value Reference Range Interpretation Comments WBC (test code = WBC) 6.7 3.7-10.4 [facility] CenterMtvkaamONSMEIHSRE2308-40-62 11:47:00 Test Item Value Reference Range Interpretation Comments RDW (test code = RDW) 13.6 11.5-14.5 [facility] CenterQuigmghIODQCXCMGS6853-12-44 11:47:00 Test Item Value Reference Range Interpretation Comments MCHC (test code = MCHC) 34.0 32.0-36.0 [facility] CenterIsqbsjsQNQOCPADJG8092-53-29 11:47:00 Test Item Value Reference Range Interpretation Comments MCH (test code = MCH) 30.9 pg 27.0-31.0 [facility] CenterZexpogzAVCJGRMZQE4428-95-84 11:47:00 Test Item Value Reference Range Interpretation Comments MCV (test code = MCV) 90.7 80.0-98.0 [facility] CenterNyjbdqdRWVZGJIPEC4604-36-68 11:47:00 Test Item Value Reference Range Interpretation Comments Hct (test code = Hct) 35.2 36.0-48.0 [facility] CenterSnrlwdgLMFGFBQEQK2009-16-34 11:47:00 Test Item Value Reference Range Interpretation Comments Segs-Bands # (test code = Segs-Bands #) 3.9 1.5-8.1 [facility] CenterPzqhxvhWDJFDXWLWR9625-81-47 11:47:00 Test Item Value Reference Range Interpretation Comments Lymphocytes # (test code = Lymphocytes 2.1 1.0-5.5 #) [facility] CenterDmodbqjWCFRBFETEO6390-78-76 11:47:00 Test Item Value Reference Range Interpretation Comments Monocytes (test code = Monocytes) 7.2 2.0-12.0 [facility] CenterGdoavvbBRREPTPZJX5159-15-99 11:47:00 Test Item Value Reference Range Interpretation Comments Eosinophils (test code = 2.9 See_Comment [A utomated message] The Eosinophils) system which ge nerated this result tra nsmitted reference range : <=4.0. The reference r bill was not used to int erpret this result as normal/abnormal . [facility] CenterRnqtnwzJGEZNYKZJN9462-60-37 11:47:00 Test Item Value Reference Range Interpretation Comments Basophils (test code = 0.6 See_Comment [Aut omated message] The Basophils) system which ge nerated this result tra nsmitted reference range : <=1.0. The reference r bill was not used to int erpret this result as normal/abnormal . [place] [address]-03-31 11:47:00 Test Item Value Reference Range Interpretation Comments Monocytes # (test code 0.5 See_Comment [Aut omated message] The = Monocytes #) system which generated this result tra nsmitted reference range : <=0.8. The reference r bill was not used to int erpret this result as normal/abnormal . [facility] CenterGnvxmbgQEOYVJSLXL9658-98-35 11:47:00 Test Item Value Reference Range Interpretation Comments Eosinophils # (test code 0.2 See_Comment [A utomated message] The = Eosinophils #) system whic h generated this result tra nsmitted reference range : <=0.5. The reference r bill was not used to int erpret this result as normal/abnormal . [facility] CenterAhtbwonTJHKYCXPZQ6263-27-60 11:47:00 Test Item Value Reference Range Interpretation Comments Lymphocytes (test code = Lymphocytes) 31.7 20.0-40.0 [facility] CenterMfpikqcRCYNCPTCHQ9964-14-34 11:47:00 Test Item Value Reference Range Interpretation Comments Segs (test code = Segs) 57.6 45.0-75.0 [facility] CenterWntuvtpXVDTJOOBPF4002-32-94 11:47:00 Test Item Value Reference Range Interpretation Comments INR (test code = INR) 1.00 0.85-1.17 [facility] CenterYrchrgqGJMKMNTLQG4181-09-36 11:47:00 Test Item Value Reference Range Interpretation Comments PTT (test code = PTT) 28.3 s 22.9-35.8 [facility] CenterLhrksfjZWVWXBBGNX9306-40-33 11:47:00 Test Item Value Reference Range Interpretation Comments PT (test code = PT) 13.2 s 12.0-14.7 [facility] STMTVJC3662-71-03 11:28:00 Test Item Value Reference Range Interpretation Comments RBC product (test code Product available = RBC product) 1(08/11/14 6:28 AM) [facility] CZGQKGJ5920-49-72 11:28:00 Test Item Value Reference Range Interpretation Comments RBC product (test code Product available = RBC product) 1(08/11/14 6:28 AM) [facility] JRGZWTS7721-36-03 11:28:00 Test Item Value Reference Range Interpretation Comments RBC product (test code Product available = RBC product) 1(08/11/14 6:28 AM) [facility] BANK HLYITMN8191-82-71 11:28:00 Test Item Value Reference Range Interpretation Comments RBC product (test code Product available = RBC product) 1(08/11/14 6:28 AM) [facility]QkojbraLSXJPOHZDUVW5910-80-44 09:39:00 Test Item Value Reference Range Interpretation Comments AGAP (test code = AGAP) 11.8 10.0-20.0 [facility] HospitalPtwxzkbGXJXHIDSTQAU4056-26-97 09:39:00 Test Item Value Reference Range Interpretation Comments eGFR (test code = eGFR) 57 [facility] HospitalJtpditnPJRPNDDVBCMX1435-50-53 09:39:00 Test Item Value Reference Range Interpretation Comments Chloride Lvl (test code = Chloride Lvl) 111 95-109 [facility] HospitalAvrppnlRICSXNTYENFH6597-15-16 09:39:00 Test Item Value Reference Range Interpretation Comments CO2 (test code = CO2) 24 24-32 [facility] HospitalPaakhudXJNJHPMDAOKD4824-79-42 09:39:00 Test Item Value Reference Range Interpretation Comments Potassium Lvl (test code = Potassium 3.8 3.5-5.1 Lvl) [facility] HospitalAnkwnuuSQTLTGYVQQNV9385-28-20 09:39:00 Test Item Value Reference Range Interpretation Comments Sodium Lvl (test code = Sodium Lvl) 143 135-145 [facility] HospitalHlzduanSGPDYOBJSUMS4692-60-05 09:39:00 Test Item Value Reference Range Interpretation Comments Calcium Lvl (test code = Calcium Lvl) 7.4 8.5-10.5 [facility] HospitalVgshjdyYOMFYAXUUDKF2269-65-22 09:39:00 Test Item Value Reference Range Interpretation Comments Creatinine Lvl (test code = Creatinine 1.0 0.5-1.4 Lvl) [facility] HospitalXfegvkeYQCQLSGHTYGJ0334-81-68 09:39:00 Test Item Value Reference Range Interpretation Comments BUN (test code = BUN) 17 7-22 [facility] HospitalJwcizpbMWDHLTGOWTYJ3003-17-48 09:39:00 Test Item Value Reference Range Interpretation Comments Glucose Lvl (test code = Glucose Lvl) 91 70-99 [facility] CenterFxrojgcPJHCGTAKMO0233-66-83 09:39:00 Test Item Value Reference Range Interpretation Comments MPV (test code = MPV) 9.1 7.4-10.4 [facility] CenterMwyxcqdKHWWBAIXBF6442-73-73 09:39:00 Test Item Value Reference Range Interpretation Comments Platelet (test code = Platelet) 177 133-450 [facility] CenterOymxdlkADFQIVESAT6381-60-65 09:39:00 Test Item Value Reference Range Interpretation Comments MCHC (test code = MCHC) 34.1 32.0-36.0 [facility] CenterVjjwxqvHDNUSOXDLO0476-93-27 09:39:00 Test Item Value Reference Range Interpretation Comments RDW (test code = RDW) 13.1 11.5-14.5 [facility] CenterHajqvifMAKSTJAXOU6280-31-63 09:39:00 Test Item Value Reference Range Interpretation Comments WBC (test code = WBC) 9.8 3.7-10.4 [facility] CenterMjdgzfmDCJJTBCJER8399-07-48 09:39:00 Test Item Value Reference Range Interpretation Comments Hgb (test code = Hgb) 11.3 12.0-16.0 [facility] CenterBvgohvfOBKTMUVIFC6319-87-14 09:39:00 Test Item Value Reference Range Interpretation Comments RBC (test code = RBC) 3.48 4.20-5.40 [facility] CenterQtbcrmbTXQELGIBZS6533-27-24 09:39:00 Test Item Value Reference Range Interpretation Comments Hct (test code = Hct) 33.0 36.0-48.0 [facility] CenterBjaqrhcKSDLIPPDWL8577-81-57 09:39:00 Test Item Value Reference Range Interpretation Comments MCH (test code = MCH) 32.3 pg 27.0-31.0 [facility] CenterSuhgaxwSZPTQVQEIL1833-30-08 09:39:00 Test Item Value Reference Range Interpretation Comments MCV (test code = MCV) 94.7 80.0-98.0 [facility] CenterYiouadfVTNXUIZSAK7265-59-51 09:39:00 Test Item Value Reference Range Interpretation Comments Basophils # (test code 0.1 See_Comment [Aut omated message] The = Basophils #) system which generated this result tra nsmitted reference range : <=0.2. The reference r bill was not used to int erpret this result as normal/abnormal . [facility] CenterDumyrzqAAIWUNJHCW2243-72-34 09:39:00 Test Item Value Reference Range Interpretation Comments Lymphocytes (test code = Lymphocytes) 21.4 20.0-40.0 [facility] CenterNjlanmxEERJFTPGYI8544-75-87 09:39:00 Test Item Value Reference Range Interpretation Comments Segs (test code = Segs) 70.4 45.0-75.0 [facility] CenterEbnxmzwIUKPTDDWWU5769-94-90 09:39:00 Test Item Value Reference Range Interpretation Comments Eosinophils (test code = 0.2 See_Comment [A utomated message] The Eosinophils) system which ge nerated this result tra nsmitted reference range : <=4.0. The reference r bill was not used to int erpret this result as normal/abnormal . [facility] CenterFgenzhcXRFNCGYNVP3170-27-94 09:39:00 Test Item Value Reference Range Interpretation Comments Monocytes (test code = Monocytes) 6.9 2.0-12.0 [facility] CenterOeeacxqDBFTVMRAWR0870-03-71 09:39:00 Test Item Value Reference Range Interpretation Comments Monocytes # (test code 0.7 See_Comment [Aut omated message] The = Monocytes #) system which generated this result tra nsmitted reference range : <=0.8. The reference r bill was not used to int erpret this result as normal/abnormal . [facility] CenterGzcuwcuTNXMDLWNIW1047-10-31 09:39:00 Test Item Value Reference Range Interpretation Comments Lymphocytes # (test code = Lymphocytes 2.1 1.0-5.5 #) [facility] CenterHsjululQIONCWGTGE9513-33-65 09:39:00 Test Item Value Reference Range Interpretation Comments Basophils (test code = 1.1 See_Comment [Aut omated message] The Basophils) system which ge nerated this result tra nsmitted reference range : <=1.0. The reference r bill was not used to int erpret this result as normal/abnormal . [facility] CenterBmlpwcsHPAUZSSEYE5241-70-36 09:39:00 Test Item Value Reference Range Interpretation Comments Segs-Bands # (test code = Segs-Bands #) 6.9 1.5-8.1 [facility] HospitalJqzibbeHOWETWLCYFEW0721-36-74 09:39:00 Test Item Value Reference Range Interpretation Comments AGAP (test code = AGAP) 11.8 10.0-20.0 [facility] HospitalGobhwmmPQNQYCHVPPUA7802-02-36 09:39:00 Test Item Value Reference Range Interpretation Comments eGFR (test code = eGFR) 57 [facility] HospitalIbhumimSNCCDVVKRPXW6634-19-61 09:39:00 Test Item Value Reference Range Interpretation Comments Chloride Lvl (test code = Chloride Lvl) 111 95-109 [facility] HospitalPgoocybXNKNUNVZNEQF6313-19-62 09:39:00 Test Item Value Reference Range Interpretation Comments CO2 (test code = CO2) 24 24-32 [facility] HospitalMezkisoLVTRTVOTRPIO7152-68-55 09:39:00 Test Item Value Reference Range Interpretation Comments Potassium Lvl (test code = Potassium 3.8 3.5-5.1 Lvl) [facility] HospitalLjhkshlOEDYWHQBZKPD0123-65-67 09:39:00 Test Item Value Reference Range Interpretation Comments Sodium Lvl (test code = Sodium Lvl) 143 135-145 [facility] HospitalWgafnqtTEYNEUVQRMUL4753-01-85 09:39:00 Test Item Value Reference Range Interpretation Comments Calcium Lvl (test code = Calcium Lvl) 7.4 8.5-10.5 [facility] HospitalMniupeaDGSOAKJYFHXW0534-66-25 09:39:00 Test Item Value Reference Range Interpretation Comments Creatinine Lvl (test code = Creatinine 1.0 0.5-1.4 Lvl) [facility] HospitalQjfxvyaLIUAGRKDITNM9860-40-63 09:39:00 Test Item Value Reference Range Interpretation Comments BUN (test code = BUN) 17 7-22 [facility] HospitalByiznzjBFPHSQYNQWUF2070-23-52 09:39:00 Test Item Value Reference Range Interpretation Comments Glucose Lvl (test code = Glucose Lvl) 91 70-99 [facility] CenterOergadoFSCGHCTZHK0302-15-01 09:39:00 Test Item Value Reference Range Interpretation Comments MPV (test code = MPV) 9.1 7.4-10.4 [facility] CenterBzyvmcsSMDRLBDBBJ8431-68-11 09:39:00 Test Item Value Reference Range Interpretation Comments Platelet (test code = Platelet) 177 133-450 [facility] CenterAviuzybOFRVRWZBWS9701-64-15 09:39:00 Test Item Value Reference Range Interpretation Comments MCHC (test code = MCHC) 34.1 32.0-36.0 [facility] CenterFixxsssJYLATOFCLR7865-64-74 09:39:00 Test Item Value Reference Range Interpretation Comments RDW (test code = RDW) 13.1 11.5-14.5 [facility] CenterIkipgyqJBBDAJBXNH9233-93-33 09:39:00 Test Item Value Reference Range Interpretation Comments WBC (test code = WBC) 9.8 3.7-10.4 [facility] CenterVymkpynXWHYWRJFLJ7385-89-95 09:39:00 Test Item Value Reference Range Interpretation Comments Hgb (test code = Hgb) 11.3 12.0-16.0 [facility] CenterIrketajEJBFCRJTZF4671-87-87 09:39:00 Test Item Value Reference Range Interpretation Comments RBC (test code = RBC) 3.48 4.20-5.40 [facility] CenterMmavlmcXJKQKKZLRA0271-78-97 09:39:00 Test Item Value Reference Range Interpretation Comments Hct (test code = Hct) 33.0 36.0-48.0 [facility] CenterVlbznkwSRTEZBFYAP6328-99-65 09:39:00 Test Item Value Reference Range Interpretation Comments MCH (test code = MCH) 32.3 pg 27.0-31.0 [facility] CenterHoohtxpREQBVBYZKK0165-44-59 09:39:00 Test Item Value Reference Range Interpretation Comments MCV (test code = MCV) 94.7 80.0-98.0 [facility] CenterUtvlgtkRWBFKQBTXV3568-33-68 09:39:00 Test Item Value Reference Range Interpretation Comments Basophils # (test code 0.1 See_Comment [Aut omated message] The = Basophils #) system which generated this result tra nsmitted reference range : <=0.2. The reference r bill was not used to int erpret this result as normal/abnormal . [facility] CenterUgsntcvPLKLARLNQI8190-67-08 09:39:00 Test Item Value Reference Range Interpretation Comments Lymphocytes (test code = Lymphocytes) 21.4 20.0-40.0 [facility] CenterOcgnxoeKHOYEXPWGI4794-63-69 09:39:00 Test Item Value Reference Range Interpretation Comments Segs (test code = Segs) 70.4 45.0-75.0 [facility] CenterAekcdfwJVKOJTTTGL2866-50-88 09:39:00 Test Item Value Reference Range Interpretation Comments Eosinophils (test code = 0.2 See_Comment [A utomated message] The Eosinophils) system which ge nerated this result tra nsmitted reference range : <=4.0. The reference r bill was not used to int erpret this result as normal/abnormal . [facility] CenterAexvvikUNVYJHLLDJ4543-53-43 09:39:00 Test Item Value Reference Range Interpretation Comments Monocytes (test code = Monocytes) 6.9 2.0-12.0 [facility] CenterKantszjELOYYMWMDJ5826-00-33 09:39:00 Test Item Value Reference Range Interpretation Comments Monocytes # (test code 0.7 See_Comment [Aut omated message] The = Monocytes #) system which generated this result tra nsmitted reference range : <=0.8. The reference r bill was not used to int erpret this result as normal/abnormal . [facility] CenterJojekegZPYXHEKTBB2437-19-85 09:39:00 Test Item Value Reference Range Interpretation Comments Lymphocytes # (test code = Lymphocytes 2.1 1.0-5.5 #) [facility] CenterQcybagbZFOPOOAKUS3223-69-61 09:39:00 Test Item Value Reference Range Interpretation Comments Basophils (test code = 1.1 See_Comment [Aut omated message] The Basophils) system which ge nerated this result tra nsmitted reference range : <=1.0. The reference r bill was not used to int erpret this result as normal/abnormal . [facility] CenterKidumhsJZMGDDOKRV2313-73-91 09:39:00 Test Item Value Reference Range Interpretation Comments Segs-Bands # (test code = Segs-Bands #) 6.9 1.5-8.1 [facility] HospitalRpbxixpGLCWBYXDRWMK1829-02-49 09:39:00 Test Item Value Reference Range Interpretation Comments AGAP (test code = AGAP) 11.8 10.0-20.0 [facility] HospitalOptvmlmYTVYIRZSLSUW2148-80-69 09:39:00 Test Item Value Reference Range Interpretation Comments eGFR (test code = eGFR) 57 [facility] HospitalNeylqtjRGEKZUINJEUU0768-20-12 09:39:00 Test Item Value Reference Range Interpretation Comments Chloride Lvl (test code = Chloride Lvl) 111 95-109 [facility] HospitalBguykxvWCAIHDILPGBW3714-11-74 09:39:00 Test Item Value Reference Range Interpretation Comments CO2 (test code = CO2) 24 24-32 [facility] HospitalSdcfumzXTDCOSSLNILV1356-58-86 09:39:00 Test Item Value Reference Range Interpretation Comments Potassium Lvl (test code = Potassium 3.8 3.5-5.1 Lvl) [facility] HospitalGjeutwxVMVWJNKVFFNK3952-89-02 09:39:00 Test Item Value Reference Range Interpretation Comments Sodium Lvl (test code = Sodium Lvl) 143 135-145 [facility] HospitalKncaybySYAGQEBTZVEL5702-02-63 09:39:00 Test Item Value Reference Range Interpretation Comments Calcium Lvl (test code = Calcium Lvl) 7.4 8.5-10.5 [facility] HospitalVdykrwbFGRENUTRSZNR7876-95-00 09:39:00 Test Item Value Reference Range Interpretation Comments Creatinine Lvl (test code = Creatinine 1.0 0.5-1.4 Lvl) [facility] HospitalAbypczrFCSYSQUMFYHM8773-52-03 09:39:00 Test Item Value Reference Range Interpretation Comments BUN (test code = BUN) 17 7-22 [facility] HospitalQxfcejtMIXVUSICFJXY1519-00-89 09:39:00 Test Item Value Reference Range Interpretation Comments Glucose Lvl (test code = Glucose Lvl) 91 70-99 [facility] CenterQqicjdnZJWBDSYODU7783-54-18 09:39:00 Test Item Value Reference Range Interpretation Comments MPV (test code = MPV) 9.1 7.4-10.4 [facility] CenterWdhgidmXXBMRHIVIG1259-64-26 09:39:00 Test Item Value Reference Range Interpretation Comments Platelet (test code = Platelet) 177 133-450 [facility] CenterCqxydhtYAOTDNRFPS4930-37-54 09:39:00 Test Item Value Reference Range Interpretation Comments MCHC (test code = MCHC) 34.1 32.0-36.0 [facility] CenterAxraebcTWRQFADXAY2481-73-89 09:39:00 Test Item Value Reference Range Interpretation Comments RDW (test code = RDW) 13.1 11.5-14.5 [facility] CenterFupihegHHHCVYOXPG8314-86-33 09:39:00 Test Item Value Reference Range Interpretation Comments WBC (test code = WBC) 9.8 3.7-10.4 [facility] CenterLqxcwgpMEDQOQEKLS2776-70-76 09:39:00 Test Item Value Reference Range Interpretation Comments Hgb (test code = Hgb) 11.3 12.0-16.0 [facility] CenterZhptnjfXPTZTHXEVN5961-09-37 09:39:00 Test Item Value Reference Range Interpretation Comments RBC (test code = RBC) 3.48 4.20-5.40 [facility] CenterNbmyxkqHSZNRJPZIQ1503-39-27 09:39:00 Test Item Value Reference Range Interpretation Comments Hct (test code = Hct) 33.0 36.0-48.0 [facility] CenterFdzajrzVQMUHOTGQN7718-87-42 09:39:00 Test Item Value Reference Range Interpretation Comments MCH (test code = MCH) 32.3 pg 27.0-31.0 [place] 025735-01-07 09:39:00 Test Item Value Reference Range Interpretation Comments MCV (test code = MCV) 94.7 80.0-98.0 [facility] CenterNigiykyZAQEBFILWZ2222-67-21 09:39:00 Test Item Value Reference Range Interpretation Comments Basophils # (test code 0.1 See_Comment [Aut omated message] The = Basophils #) system which generated this result tra nsmitted reference range : <=0.2. The reference r bill was not used to int erpret this result as normal/abnormal . [facility] CenterHwuqzouKMGYKABYOV4445-95-90 09:39:00 Test Item Value Reference Range Interpretation Comments Lymphocytes (test code = Lymphocytes) 21.4 20.0-40.0 [facility] CenterVudhlgiXOJUFHECNV5639-10-61 09:39:00 Test Item Value Reference Range Interpretation Comments Segs (test code = Segs) 70.4 45.0-75.0 [facility] CenterTugqhytPOCRBLYDGZ8632-11-44 09:39:00 Test Item Value Reference Range Interpretation Comments Eosinophils (test code = 0.2 See_Comment [A utomated message] The Eosinophils) system which ge nerated this result tra nsmitted reference range : <=4.0. The reference r bill was not used to int erpret this result as normal/abnormal . [facility] CenterGvmuewjTGAXCPRRRJ5461-41-93 09:39:00 Test Item Value Reference Range Interpretation Comments Monocytes (test code = Monocytes) 6.9 2.0-12.0 [facility] CenterBrixnojUJGJFZMUKI0059-22-42 09:39:00 Test Item Value Reference Range Interpretation Comments Monocytes # (test code 0.7 See_Comment [Aut omated message] The = Monocytes #) system which generated this result tra nsmitted reference range : <=0.8. The reference r bill was not used to int erpret this result as normal/abnormal . [facility] CenterUcncpciRUCOJKCASD0110-68-13 09:39:00 Test Item Value Reference Range Interpretation Comments Lymphocytes # (test code = Lymphocytes 2.1 1.0-5.5 #) [facility] CenterKrysdtpOIXIZFEBMH8777-72-28 09:39:00 Test Item Value Reference Range Interpretation Comments Basophils (test code = 1.1 See_Comment [Aut omated message] The Basophils) system which ge nerated this result tra nsmitted reference range : <=1.0. The reference r bill was not used to int erpret this result as normal/abnormal . [facility] CenterMyzvqydVXDILWTAXA6306-11-85 09:39:00 Test Item Value Reference Range Interpretation Comments Segs-Bands # (test code = Segs-Bands #) 6.9 1.5-8.1 [facility] HospitalWixqknxETEVMYDBZAIK8492-61-25 09:39:00 Test Item Value Reference Range Interpretation Comments AGAP (test code = AGAP) 11.8 10.0-20.0 [facility] HospitalMlmmicxUMLOWEHCCXOY9392-37-13 09:39:00 Test Item Value Reference Range Interpretation Comments eGFR (test code = eGFR) 57 [facility] HospitalBvpbeurFICMNTNFNGHL5800-01-21 09:39:00 Test Item Value Reference Range Interpretation Comments Chloride Lvl (test code = Chloride Lvl) 111 95-109 [facility] HospitalPivbcrkHREYSRMXPNJG4752-93-88 09:39:00 Test Item Value Reference Range Interpretation Comments CO2 (test code = CO2) 24 24-32 [facility] HospitalUeurapbHCWNQNOGIFQB5320-26-26 09:39:00 Test Item Value Reference Range Interpretation Comments Potassium Lvl (test code = Potassium 3.8 3.5-5.1 Lvl) [facility] HospitalVlqpimeAHYCMSZULCCO6722-95-62 09:39:00 Test Item Value Reference Range Interpretation Comments Sodium Lvl (test code = Sodium Lvl) 143 135-145 [facility] HospitalUjnkszbDTNWBKKSEUMY7324-91-97 09:39:00 Test Item Value Reference Range Interpretation Comments Calcium Lvl (test code = Calcium Lvl) 7.4 8.5-10.5 [facility] HospitalGmrisbbPSJFWCSFPDLF9568-15-31 09:39:00 Test Item Value Reference Range Interpretation Comments Creatinine Lvl (test code = Creatinine 1.0 0.5-1.4 Lvl) [facility] HospitalPstlhkmZUPCVGKXUNNR1918-50-48 09:39:00 Test Item Value Reference Range Interpretation Comments BUN (test code = BUN) 17 7-22 [facility] HospitalPzyyibsJQYBKLDUCANF5290-77-78 09:39:00 Test Item Value Reference Range Interpretation Comments Glucose Lvl (test code = Glucose Lvl) 91 70-99 [facility] CenterNhpqvstKSUFDXUJHP8000-17-85 09:39:00 Test Item Value Reference Range Interpretation Comments MPV (test code = MPV) 9.1 7.4-10.4 [facility] CenterZhjwgjwWTVSGPJRWW5102-29-21 09:39:00 Test Item Value Reference Range Interpretation Comments Platelet (test code = Platelet) 177 133-450 [facility] CenterUgknzvgYJCXBJOETQ5459-26-35 09:39:00 Test Item Value Reference Range Interpretation Comments MCHC (test code = MCHC) 34.1 32.0-36.0 [facility] CenterCukwhypWIWODIVYRL7690-10-87 09:39:00 Test Item Value Reference Range Interpretation Comments RDW (test code = RDW) 13.1 11.5-14.5 [facility] CenterLcserlkPMLZDRTVZV9256-21-40 09:39:00 Test Item Value Reference Range Interpretation Comments WBC (test code = WBC) 9.8 3.7-10.4 [facility] CenterMpbhpnpPDXIFGSNGK8922-02-61 09:39:00 Test Item Value Reference Range Interpretation Comments Hgb (test code = Hgb) 11.3 12.0-16.0 [facility] CenterLsjjsnsHMYRXAKXVH9331-78-55 09:39:00 Test Item Value Reference Range Interpretation Comments RBC (test code = RBC) 3.48 4.20-5.40 [facility] CenterIxtnntoAGTXDEXRLH5671-98-37 09:39:00 Test Item Value Reference Range Interpretation Comments Hct (test code = Hct) 33.0 36.0-48.0 [facility] CenterCvvdcfaMZHZMAWNVK7754-73-49 09:39:00 Test Item Value Reference Range Interpretation Comments MCH (test code = MCH) 32.3 pg 27.0-31.0 [facility] CenterHsfjnvsWIUZTCKJOB4114-86-65 09:39:00 Test Item Value Reference Range Interpretation Comments MCV (test code = MCV) 94.7 80.0-98.0 [facility] CenterEbakjmcHAFHAYNTML9746-82-98 09:39:00 Test Item Value Reference Range Interpretation Comments Basophils # (test code 0.1 See_Comment [Aut omated message] The = Basophils #) system which generated this result tra nsmitted reference range : <=0.2. The reference r bill was not used to int erpret this result as normal/abnormal . [facility] CenterTzakeaeKBCXRVIETM3912-29-81 09:39:00 Test Item Value Reference Range Interpretation Comments Lymphocytes (test code = Lymphocytes) 21.4 20.0-40.0 [facility] CenterUwuryweBYRCHVYRGC0660-46-08 09:39:00 Test Item Value Reference Range Interpretation Comments Segs (test code = Segs) 70.4 45.0-75.0 [facility] CenterPlcudmlBIMACANCBC7334-49-40 09:39:00 Test Item Value Reference Range Interpretation Comments Eosinophils (test code = 0.2 See_Comment [A utomated message] The Eosinophils) system which ge nerated this result tra nsmitted reference range : <=4.0. The reference r bill was not used to int erpret this result as normal/abnormal . [facility] CenterUqvqqklFAJZRNQFYV6981-24-08 09:39:00 Test Item Value Reference Range Interpretation Comments Monocytes (test code = Monocytes) 6.9 2.0-12.0 [facility] CenterEsvhqwoGVSANUHFKI0136-88-78 09:39:00 Test Item Value Reference Range Interpretation Comments Monocytes # (test code 0.7 See_Comment [Aut omated message] The = Monocytes #) system which generated this result tra nsmitted reference range : <=0.8. The reference r bill was not used to int erpret this result as normal/abnormal . [facility] CenterLwzfxboCJSKDJZMTR0512-30-81 09:39:00 Test Item Value Reference Range Interpretation Comments Lymphocytes # (test code = Lymphocytes 2.1 1.0-5.5 #) [facility] CenterIppopgbYRWEFEROWU4512-14-77 09:39:00 Test Item Value Reference Range Interpretation Comments Basophils (test code = 1.1 See_Comment [Aut omated message] The Basophils) system which ge nerated this result tra nsmitted reference range : <=1.0. The reference r bill was not used to int erpret this result as normal/abnormal . [facility] CenterIrdzmkeBQVOFKPJFI8129-43-93 09:39:00 Test Item Value Reference Range Interpretation Comments Segs-Bands # (test code = Segs-Bands #) 6.9 1.5-8.1 [facility]2015-01-07 01:25:00 Test Item Value Reference Range Interpretation Comments eGFR (test code = eGFR) 65 [facility]2015-01-07 01:25:00 Test Item Value Reference Range Interpretation Comments Creatinine Lvl (test code = Creatinine 0.9 0.5-1.4 Lvl) [facility] CenterCjnsbdrSEEWIJEAOF8072-26-44 01:25:00 Test Item Value Reference Range Interpretation Comments PTT (test code = PTT) 32.6 s 22.9-35.8 [facility] CenterXatavcbKWFSNFTGKS4199-63-93 01:25:00 Test Item Value Reference Range Interpretation Comments Platelet (test code = Platelet) 199 133-450 [facility]2015-01-07 01:25:00 Test Item Value Reference Range Interpretation Comments eGFR (test code = eGFR) 65 [facility]2015-01-07 01:25:00 Test Item Value Reference Range Interpretation Comments Creatinine Lvl (test code = Creatinine 0.9 0.5-1.4 Lvl) [facility] CenterJrcyavgXXSHQSLQAN7954-26-31 01:25:00 Test Item Value Reference Range Interpretation Comments PTT (test code = PTT) 32.6 s 22.9-35.8 [facility] CenterLvkixbkESWZLAWIFE5215-89-00 01:25:00 Test Item Value Reference Range Interpretation Comments Platelet (test code = Platelet) 199 133-450 [facility]2015-01-07 01:25:00 Test Item Value Reference Range Interpretation Comments eGFR (test code = eGFR) 65 [facility]2015-01-07 01:25:00 Test Item Value Reference Range Interpretation Comments Creatinine Lvl (test code = Creatinine 0.9 0.5-1.4 Lvl) [facility] CenterIpszzjvMITGCAZWRK1578-43-68 01:25:00 Test Item Value Reference Range Interpretation Comments PTT (test code = PTT) 32.6 s 22.9-35.8 [facility] CenterWrghebgLHBDBJGTUR0822-52-59 01:25:00 Test Item Value Reference Range Interpretation Comments Platelet (test code = Platelet) 199 133-450 [facility]2015-01-07 01:25:00 Test Item Value Reference Range Interpretation Comments eGFR (test code = eGFR) 65 [facility]2015-01-07 01:25:00 Test Item Value Reference Range Interpretation Comments Creatinine Lvl (test code = Creatinine 0.9 0.5-1.4 Lvl) [facility] CenterQtfvehkSSDDDNXDJZ6693-03-83 01:25:00 Test Item Value Reference Range Interpretation Comments PTT (test code = PTT) 32.6 s 22.9-35.8 [facility] CenterMhwzpkiZMCNVKRGOJ0695-29-61 01:25:00 Test Item Value Reference Range Interpretation Comments Platelet (test code = Platelet) 199 133-450 [facility] [employer] JSKNMIY5355-30-20 12:41:00 Test Item Value Reference Range Interpretation Comments ABO/Rh (test code = ABO/Rh) O POS [facility] [employer] [id number] 12:41:00 Test Item Value Reference Range Interpretation Comments Antibody Scrn (test Negative (05/19/14 6:41 code = Antibody Scrn) AM) [facility] [employer] [id number] 12:41:00 Test Item Value Reference Range Interpretation Comments A/G Ratio (test code = A/G Ratio) 1.0 0.7-1.6 [facility] [employer] [id number] 12:41:00 Test Item Value Reference Range Interpretation Comments AGAP (test code = AGAP) 10.8 10.0-20.0 [facility] [employer] [id number] 12:41:00 Test Item Value Reference Range Interpretation Comments B/C Ratio (test code = B/C Ratio) 16 6-25 [facility] [employer] GCTGJ9839-55-92 12:41:00 Test Item Value Reference Range Interpretation Comments Globulin (test code = Globulin) 3.8 2.0-4.0 [facility] [employer] [id number] 12:41:00 Test Item Value Reference Range Interpretation Comments eGFR (test code = eGFR) 57 [facility] [employer] UMPGQ8174-17-63 12:41:00 Test Item Value Reference Range Interpretation Comments Potassium Lvl (test code = Potassium 3.8 3.5-5.1 Lvl) [facility] [employer] YSQZB1592-03-14 12:41:00 Test Item Value Reference Range Interpretation Comments Sodium Lvl (test code = Sodium Lvl) 144 135-145 [facility] [employer] WTQGX5310-48-24 12:41:00 Test Item Value Reference Range Interpretation Comments Creatinine Lvl (test code = Creatinine 1.0 0.5-1.4 Lvl) [facility] [employer] KBXIJ3903-90-40 12:41:00 Test Item Value Reference Range Interpretation Comments Chloride Lvl (test code = Chloride Lvl) 109 95-109 [facility] [employer] [id number] 12:41:00 Test Item Value Reference Range Interpretation Comments Calcium Lvl (test code = Calcium Lvl) 8.7 8.5-10.5 [place] 390705-01-06 12:41:00 Test Item Value Reference Range Interpretation Comments Bili Total (test code = Bili Total) 0.5 0.2-1.3 [facility]2015-01-06 12:41:00 Test Item Value Reference Range Interpretation Comments AST (test code = AST) 13 See_Comment [Auto mated message] The system which ge nerated this result transmit son reference range : <=37. The reference range was not used to interpr et this result as nikik l/abnormal. [facility]2015-01-06 12:41:00 Test Item Value Reference Range Interpretation Comments Alk Phos (test code = Alk Phos) 66 39-136 [facility]2015-01-06 12:41:00 Test Item Value Reference Range Interpretation Comments Total Protein (test code = Total 7.5 6.4-8.4 Protein) [facility]2015-01-06 12:41:00 Test Item Value Reference Range Interpretation Comments Albumin Lvl (test code = Albumin Lvl) 3.7 3.5-5.0 [facility]2015-01-06 12:41:00 Test Item Value Reference Range Interpretation Comments ALT (test code = ALT) 25 See_Comment [Auto mated message] The system which ge nerated this result transmit son reference range : <=65. The reference range was not used to interpr et this result as nikki l/abnormal. [facility]2015-01-06 12:41:00 Test Item Value Reference Range Interpretation Comments BUN (test code = BUN) 16 7-22 [facility]2015-01-06 12:41:00 Test Item Value Reference Range Interpretation Comments CO2 (test code = CO2) 28 24-32 [place] 390705-01-06 12:41:00 Test Item Value Reference Range Interpretation Comments Glucose Lvl (test code = Glucose Lvl) 97 70-99 [facility] CenterOczqnyjHUEMUUGHGK9772-53-16 12:41:00 Test Item Value Reference Range Interpretation Comments INR (test code = INR) 0.95 0.85-1.17 [facility] CenterLprtnxaEIJTPPZWKP3263-55-03 12:41:00 Test Item Value Reference Range Interpretation Comments PT (test code = PT) 12.7 s 12.0-14.7 [facility] CenterHhxwlrqVSZAOOHKJK4729-96-55 12:41:00 Test Item Value Reference Range Interpretation Comments PTT (test code = PTT) 32.9 s 22.9-35.8 [facility] CenterDxivdtmGZDIHKVFPE9618-64-75 12:41:00 Test Item Value Reference Range Interpretation Comments Monocytes (test code = Monocytes) 7.1 2.0-12.0 [facility] CenterMbdngicYJSINXFWEN5521-47-89 12:41:00 Test Item Value Reference Range Interpretation Comments Segs (test code = Segs) 58.7 45.0-75.0 [facility] CenterWxjwlsdYNXNODROUE4198-41-33 12:41:00 Test Item Value Reference Range Interpretation Comments Basophils (test code = 0.5 See_Comment [Aut omated message] The Basophils) system which ge nerated this result tra nsmitted reference range : <=1.0. The reference r bill was not used to int erpret this result as normal/abnormal . [facility] CenterHbevspeVRFPUSTGYO2823-66-25 12:41:00 Test Item Value Reference Range Interpretation Comments Lymphocytes (test code = Lymphocytes) 32.5 20.0-40.0 [facility] CenterVwjcpgxTILNLADECM3534-57-61 12:41:00 Test Item Value Reference Range Interpretation Comments Segs-Bands # (test code = Segs-Bands #) 3.5 1.5-8.1 [facility] CenterQtdxixqBKCFZXAFVL1170-68-60 12:41:00 Test Item Value Reference Range Interpretation Comments Eosinophils (test code = 1.2 See_Comment [A utomated message] The Eosinophils) system which ge nerated this result tra nsmitted reference range : <=4.0. The reference r bill was not used to int erpret this result as normal/abnormal . [facility] CenterHpgengzWYJLHMCJZC4005-19-27 12:41:00 Test Item Value Reference Range Interpretation Comments Eosinophils # (test code 0.1 See_Comment [A utomated message] The = Eosinophils #) system whic h generated this result tra nsmitted reference range : <=0.5. The reference r bill was not used to int erpret this result as normal/abnormal . [facility] CenterQomvbkmGKRSNOGYKK4684-86-78 12:41:00 Test Item Value Reference Range Interpretation Comments Lymphocytes # (test code = Lymphocytes 1.9 1.0-5.5 #) [facility] CenterBtwypfhBHZIODYXXQ5250-83-56 12:41:00 Test Item Value Reference Range Interpretation Comments Monocytes # (test code 0.4 See_Comment [Aut omated message] The = Monocytes #) system which generated this result tra nsmitted reference range : <=0.8. The reference r bill was not used to int erpret this result as normal/abnormal . [facility] CenterZxjawrjDNIJEDULQO1679-86-76 12:41:00 Test Item Value Reference Range Interpretation Comments RBC (test code = RBC) 4.04 4.20-5.40 [facility] CenterYhvndgqMBDUGJVMNJ2978-07-47 12:41:00 Test Item Value Reference Range Interpretation Comments WBC (test code = WBC) 5.9 3.7-10.4 [facility] CenterOibdwnfFZZHJTVZDL7873-30-64 12:41:00 Test Item Value Reference Range Interpretation Comments Hct (test code = Hct) 38.5 36.0-48.0 [facility] CenterGdzffvyMKUJGOLZKM0086-39-97 12:41:00 Test Item Value Reference Range Interpretation Comments Hgb (test code = Hgb) 13.1 12.0-16.0 [facility] CenterWyxoorsLAAXDKAANE1605-56-67 12:41:00 Test Item Value Reference Range Interpretation Comments MCV (test code = MCV) 95.5 80.0-98.0 [facility] CenterUaakbmrSQOWCHWFZU8477-76-32 12:41:00 Test Item Value Reference Range Interpretation Comments MCHC (test code = MCHC) 34.0 32.0-36.0 [facility] CenterXkcdpfrVPQNHXPDON8189-26-54 12:41:00 Test Item Value Reference Range Interpretation Comments MCH (test code = MCH) 32.5 pg 27.0-31.0 [facility] CenterWsbqampXYYJNXUZNT7282-57-06 12:41:00 Test Item Value Reference Range Interpretation Comments RDW (test code = RDW) 13.3 11.5-14.5 [facility] CenterGmjmofeSJWJOXDMVC3410-02-37 12:41:00 Test Item Value Reference Range Interpretation Comments MPV (test code = MPV) 9.6 7.4-10.4 [facility] CenterMbtusecNGSQKZUKAB3282-50-40 12:41:00 Test Item Value Reference Range Interpretation Comments Platelet (test code = Platelet) 215 133-450 [facility] XPYHNGP8730-20-95 12:41:00 Test Item Value Reference Range Interpretation Comments ABO/Rh (test code = ABO/Rh) O POS [facility] [id number] 12:41:00 Test Item Value Reference Range Interpretation Comments Antibody Scrn (test Negative (05/19/14 6:41 code = Antibody Scrn) AM) [facility]2015-01-06 12:41:00 Test Item Value Reference Range Interpretation Comments A/G Ratio (test code = A/G Ratio) 1.0 0.7-1.6 [facility]2015-01-06 12:41:00 Test Item Value Reference Range Interpretation Comments AGAP (test code = AGAP) 10.8 10.0-20.0 [facility]2015-01-06 12:41:00 Test Item Value Reference Range Interpretation Comments B/C Ratio (test code = B/C Ratio) 16 6-25 [facility]2015-01-06 12:41:00 Test Item Value Reference Range Interpretation Comments Globulin (test code = Globulin) 3.8 2.0-4.0 [facility]2015-01-06 12:41:00 Test Item Value Reference Range Interpretation Comments eGFR (test code = eGFR) 57 [facility]2015-01-06 12:41:00 Test Item Value Reference Range Interpretation Comments Potassium Lvl (test code = Potassium 3.8 3.5-5.1 Lvl) [facility]2015-01-06 12:41:00 Test Item Value Reference Range Interpretation Comments Sodium Lvl (test code = Sodium Lvl) 144 135-145 [facility]2015-01-06 12:41:00 Test Item Value Reference Range Interpretation Comments Creatinine Lvl (test code = Creatinine 1.0 0.5-1.4 Lvl) [facility]2015-01-06 12:41:00 Test Item Value Reference Range Interpretation Comments Chloride Lvl (test code = Chloride Lvl) 109 95-109 [facility]2015-01-06 12:41:00 Test Item Value Reference Range Interpretation Comments Calcium Lvl (test code = Calcium Lvl) 8.7 8.5-10.5 [facility]2015-01-06 12:41:00 Test Item Value Reference Range Interpretation Comments Bili Total (test code = Bili Total) 0.5 0.2-1.3 [facility]2015-01-06 12:41:00 Test Item Value Reference Range Interpretation Comments AST (test code = AST) 13 See_Comment [Auto mated message] The system which ge nerated this result transmit son reference range : <=37. The reference range was not used to interpr et this result as nikki l/abnormal. [facility]2015-01-06 12:41:00 Test Item Value Reference Range Interpretation Comments Alk Phos (test code = Alk Phos) 66 39-136 [facility]2015-01-06 12:41:00 Test Item Value Reference Range Interpretation Comments Total Protein (test code = Total 7.5 6.4-8.4 Protein) [facility]2015-01-06 12:41:00 Test Item Value Reference Range Interpretation Comments Albumin Lvl (test code = Albumin Lvl) 3.7 3.5-5.0 [facility]2015-01-06 12:41:00 Test Item Value Reference Range Interpretation Comments ALT (test code = ALT) 25 See_Comment [Auto mated message] The system which ge nerated this result transmit son reference range : <=65. The reference range was not used to interpr et this result as nikki l/abnormal. [facility]2015-01-06 12:41:00 Test Item Value Reference Range Interpretation Comments BUN (test code = BUN) 16 7-22 [facility]2015-01-06 12:41:00 Test Item Value Reference Range Interpretation Comments CO2 (test code = CO2) 28 24-32 [place] 390705-01-06 12:41:00 Test Item Value Reference Range Interpretation Comments Glucose Lvl (test code = Glucose Lvl) 97 70-99 [facility] CenterDrnqsxtGHHDDLCHNK9868-19-71 12:41:00 Test Item Value Reference Range Interpretation Comments INR (test code = INR) 0.95 0.85-1.17 [place] 025735-01-06 12:41:00 Test Item Value Reference Range Interpretation Comments PT (test code = PT) 12.7 s 12.0-14.7 [facility] CenterWonjtkiQLFWJLOUUE3381-10-07 12:41:00 Test Item Value Reference Range Interpretation Comments PTT (test code = PTT) 32.9 s 22.9-35.8 [facility] CenterYgksnxoOLZIWEBGGR8259-54-04 12:41:00 Test Item Value Reference Range Interpretation Comments Monocytes (test code = Monocytes) 7.1 2.0-12.0 [facility] CenterBfsxwlsCRZDVGMDGS0566-34-07 12:41:00 Test Item Value Reference Range Interpretation Comments Segs (test code = Segs) 58.7 45.0-75.0 [facility] CenterNydmoomBODQQVMWKT2282-38-63 12:41:00 Test Item Value Reference Range Interpretation Comments Basophils (test code = 0.5 See_Comment [Aut omated message] The Basophils) system which ge nerated this result tra nsmitted reference range : <=1.0. The reference r bill was not used to int erpret this result as normal/abnormal . [facility] CenterRsqaxbvGEECASUKKT8114-95-52 12:41:00 Test Item Value Reference Range Interpretation Comments Lymphocytes (test code = Lymphocytes) 32.5 20.0-40.0 [facility] CenterEhcplbiANXMVCLXGK1973-38-22 12:41:00 Test Item Value Reference Range Interpretation Comments Segs-Bands # (test code = Segs-Bands #) 3.5 1.5-8.1 [facility] CenterNebkabtFSYNSUUVTR0193-65-79 12:41:00 Test Item Value Reference Range Interpretation Comments Eosinophils (test code = 1.2 See_Comment [A utomated message] The Eosinophils) system which ge nerated this result tra nsmitted reference range : <=4.0. The reference r bill was not used to int erpret this result as normal/abnormal . [facility] CenterKcqmufvPMYBTMSYWQ8041-87-87 12:41:00 Test Item Value Reference Range Interpretation Comments Eosinophils # (test code 0.1 See_Comment [A utomated message] The = Eosinophils #) system whic h generated this result tra nsmitted reference range : <=0.5. The reference r bill was not used to int erpret this result as normal/abnormal . [facility] CenterDqaedrlKDPNPZRYHC5605-30-84 12:41:00 Test Item Value Reference Range Interpretation Comments Lymphocytes # (test code = Lymphocytes 1.9 1.0-5.5 #) [facility] CenterEvacgieMYXNQATQYC8281-52-55 12:41:00 Test Item Value Reference Range Interpretation Comments Monocytes # (test code 0.4 See_Comment [Aut omated message] The = Monocytes #) system which generated this result tra nsmitted reference range : <=0.8. The reference r bill was not used to int erpret this result as normal/abnormal . [facility] CenterMvceidbBNEMOWXVCG2200-74-73 12:41:00 Test Item Value Reference Range Interpretation Comments RBC (test code = RBC) 4.04 4.20-5.40 [facility] CenterJtshqxxHYFQJYWDBF1358-32-07 12:41:00 Test Item Value Reference Range Interpretation Comments WBC (test code = WBC) 5.9 3.7-10.4 [facility] CenterOgqmjfgSSNQWZUCDB0210-47-25 12:41:00 Test Item Value Reference Range Interpretation Comments Hct (test code = Hct) 38.5 36.0-48.0 [facility] CenterJqllztxIFBELNOSHE3386-65-07 12:41:00 Test Item Value Reference Range Interpretation Comments Hgb (test code = Hgb) 13.1 12.0-16.0 [facility] CenterTtsdwhiXJCQVSMPLB6035-82-04 12:41:00 Test Item Value Reference Range Interpretation Comments MCV (test code = MCV) 95.5 80.0-98.0 [facility] CenterNzzmwdzKIYJCOSYAB8637-94-41 12:41:00 Test Item Value Reference Range Interpretation Comments MCHC (test code = MCHC) 34.0 32.0-36.0 [facility] CenterDofsaxcZYDYQYTCGG6890-46-92 12:41:00 Test Item Value Reference Range Interpretation Comments MCH (test code = MCH) 32.5 pg 27.0-31.0 [facility] CenterOzibwcmGHAZDIGXFD5917-53-78 12:41:00 Test Item Value Reference Range Interpretation Comments RDW (test code = RDW) 13.3 11.5-14.5 [facility] CenterUexithgOSAMLGPOYH2660-43-36 12:41:00 Test Item Value Reference Range Interpretation Comments MPV (test code = MPV) 9.6 7.4-10.4 [facility] CenterGptavgfOJDNHUYXQR5093-69-14 12:41:00 Test Item Value Reference Range Interpretation Comments Platelet (test code = Platelet) 215 133-450 [facility] NMRZRZV3563-30-70 12:41:00 Test Item Value Reference Range Interpretation Comments ABO/Rh (test code = ABO/Rh) O POS [facility] [id number] 12:41:00 Test Item Value Reference Range Interpretation Comments Antibody Scrn (test Negative (05/19/14 6:41 code = Antibody Scrn) AM) [facility]2015-01-06 12:41:00 Test Item Value Reference Range Interpretation Comments A/G Ratio (test code = A/G Ratio) 1.0 0.7-1.6 [facility]2015-01-06 12:41:00 Test Item Value Reference Range Interpretation Comments AGAP (test code = AGAP) 10.8 10.0-20.0 [facility]2015-01-06 12:41:00 Test Item Value Reference Range Interpretation Comments B/C Ratio (test code = B/C Ratio) 16 6-25 [facility]2015-01-06 12:41:00 Test Item Value Reference Range Interpretation Comments Globulin (test code = Globulin) 3.8 2.0-4.0 [facility]2015-01-06 12:41:00 Test Item Value Reference Range Interpretation Comments eGFR (test code = eGFR) 57 [facility]2015-01-06 12:41:00 Test Item Value Reference Range Interpretation Comments Potassium Lvl (test code = Potassium 3.8 3.5-5.1 Lvl) [facility]2015-01-06 12:41:00 Test Item Value Reference Range Interpretation Comments Sodium Lvl (test code = Sodium Lvl) 144 135-145 [facility]2015-01-06 12:41:00 Test Item Value Reference Range Interpretation Comments Creatinine Lvl (test code = Creatinine 1.0 0.5-1.4 Lvl) [facility]2015-01-06 12:41:00 Test Item Value Reference Range Interpretation Comments Chloride Lvl (test code = Chloride Lvl) 109 95-109 [facility]2015-01-06 12:41:00 Test Item Value Reference Range Interpretation Comments Calcium Lvl (test code = Calcium Lvl) 8.7 8.5-10.5 [facility]2015-01-06 12:41:00 Test Item Value Reference Range Interpretation Comments Bili Total (test code = Bili Total) 0.5 0.2-1.3 [facility]2015-01-06 12:41:00 Test Item Value Reference Range Interpretation Comments AST (test code = AST) 13 See_Comment [Auto mated message] The system which ge nerated this result transmit son reference range : <=37. The reference range was not used to interpr et this result as nikki l/abnormal. [place] [id number] 12:41:00 Test Item Value Reference Range Interpretation Comments Alk Phos (test code = Alk Phos) 66 39-136 [facility]2015-01-06 12:41:00 Test Item Value Reference Range Interpretation Comments Total Protein (test code = Total 7.5 6.4-8.4 Protein) [facility]2015-01-06 12:41:00 Test Item Value Reference Range Interpretation Comments Albumin Lvl (test code = Albumin Lvl) 3.7 3.5-5.0 [facility]2015-01-06 12:41:00 Test Item Value Reference Range Interpretation Comments ALT (test code = ALT) 25 See_Comment [Auto mated message] The system which ge nerated this result transmit son reference range : <=65. The reference range was not used to interpr et this result as nikki l/abnormal. [facility]2015-01-06 12:41:00 Test Item Value Reference Range Interpretation Comments BUN (test code = BUN) 16 7-22 [facility]2015-01-06 12:41:00 Test Item Value Reference Range Interpretation Comments CO2 (test code = CO2) 28 24-32 [facility]2015-01-06 12:41:00 Test Item Value Reference Range Interpretation Comments Glucose Lvl (test code = Glucose Lvl) 97 70-99 [facility]bokjabHRKXNYTPWO3558[facility]99-[facility] 12:41:00 Test Item Value Reference Range Interpretation Comments INR (test code = INR) 0.95 0.85-1.17 [facility] CenterJxxcjguMRICWNXAAV3114-35-42 12:41:00 Test Item Value Reference Range Interpretation Comments PT (test code = PT) 12.7 s 12.0-14.7 [place] 025735-01-06 12:41:00 Test Item Value Reference Range Interpretation Comments PTT (test code = PTT) 32.9 s 22.9-35.8 [facility] CenterBwpsczrTYLMHQPLNM4776-98-08 12:41:00 Test Item Value Reference Range Interpretation Comments Monocytes (test code = Monocytes) 7.1 2.0-12.0 [facility] CenterZtfluawRRRQIXOVGV8684-06-49 12:41:00 Test Item Value Reference Range Interpretation Comments Segs (test code = Segs) 58.7 45.0-75.0 [facility] CenterEyruipfUFGLTKVFWB5436-44-91 12:41:00 Test Item Value Reference Range Interpretation Comments Basophils (test code = 0.5 See_Comment [Aut omated message] The Basophils) system which ge nerated this result tra nsmitted reference range : <=1.0. The reference r bill was not used to int erpret this result as normal/abnormal . [facility] CenterElbaycxWDPAWJCYOX9737-81-64 12:41:00 Test Item Value Reference Range Interpretation Comments Lymphocytes (test code = Lymphocytes) 32.5 20.0-40.0 [facility] CenterEztwycnIMGIXHHCUB2082-83-92 12:41:00 Test Item Value Reference Range Interpretation Comments Segs-Bands # (test code = Segs-Bands #) 3.5 1.5-8.1 [facility] CenterYpauekwKZVTYHKPZX6828-53-21 12:41:00 Test Item Value Reference Range Interpretation Comments Eosinophils (test code = 1.2 See_Comment [A utomated message] The Eosinophils) system which ge nerated this result tra nsmitted reference range : <=4.0. The reference r bill was not used to int erpret this result as normal/abnormal . [facility] CenterBqsfprkXRTVLFKNUB6250-42-09 12:41:00 Test Item Value Reference Range Interpretation Comments Eosinophils # (test code 0.1 See_Comment [A utomated message] The = Eosinophils #) system whic h generated this result tra nsmitted reference range : <=0.5. The reference r bill was not used to int erpret this result as normal/abnormal . [facility] CenterNekgbeiUHPCHHFJGE7290-31-97 12:41:00 Test Item Value Reference Range Interpretation Comments Lymphocytes # (test code = Lymphocytes 1.9 1.0-5.5 #) [facility] CenterTryvpzaGYCPDILPRI2437-04-62 12:41:00 Test Item Value Reference Range Interpretation Comments Monocytes # (test code 0.4 See_Comment [Aut omated message] The = Monocytes #) system which generated this result tra nsmitted reference range : <=0.8. The reference r bill was not used to int erpret this result as normal/abnormal . [facility] CenterYcodgpnVNMFFBWVHX5329-05-91 12:41:00 Test Item Value Reference Range Interpretation Comments RBC (test code = RBC) 4.04 4.20-5.40 [facility] CenterJkazabqXXTRHKBNZT2781-90-42 12:41:00 Test Item Value Reference Range Interpretation Comments WBC (test code = WBC) 5.9 3.7-10.4 [facility] CenterQbksiedOLHLZSUEPG1875-83-05 12:41:00 Test Item Value Reference Range Interpretation Comments Hct (test code = Hct) 38.5 36.0-48.0 [facility] CenterWgetuzeTEVVLXLUDU8705-83-69 12:41:00 Test Item Value Reference Range Interpretation Comments Hgb (test code = Hgb) 13.1 12.0-16.0 [facility] CenterLcuzzzxFAHEWHCADU7118-13-83 12:41:00 Test Item Value Reference Range Interpretation Comments MCV (test code = MCV) 95.5 80.0-98.0 [facility] CenterJtmfsbqEEWMMKQXEP9595-24-76 12:41:00 Test Item Value Reference Range Interpretation Comments MCHC (test code = MCHC) 34.0 32.0-36.0 [facility] CenterMqwhoxwWEAOOZATSL6498-79-17 12:41:00 Test Item Value Reference Range Interpretation Comments MCH (test code = MCH) 32.5 pg 27.0-31.0 [facility] CenterFeuzdfvFWXHTRTMYD9714-67-09 12:41:00 Test Item Value Reference Range Interpretation Comments RDW (test code = RDW) 13.3 11.5-14.5 [facility] CenterRlbqimeGPZMZFUYJS4765-55-21 12:41:00 Test Item Value Reference Range Interpretation Comments MPV (test code = MPV) 9.6 7.4-10.4 [facility] CenterZxzwwclVZRTXWTHGS1907-74-67 12:41:00 Test Item Value Reference Range Interpretation Comments Platelet (test code = Platelet) 215 133-450 [facility] VISup [id number] 12:41:00 Test Item Value Reference Range Interpretation Comments ABO/Rh (test code = ABO/Rh) O POS [facility] VISup [id number] 12:41:00 Test Item Value Reference Range Interpretation Comments Antibody Scrn (test Negative (05/19/14 6:41 code = Antibody Scrn) AM) [facility]2015-01-06 12:41:00 Test Item Value Reference Range Interpretation Comments A/G Ratio (test code = A/G Ratio) 1.0 0.7-1.6 [facility]2015-01-06 12:41:00 Test Item Value Reference Range Interpretation Comments AGAP (test code = AGAP) 10.8 10.0-20.0 [facility]2015-01-06 12:41:00 Test Item Value Reference Range Interpretation Comments B/C Ratio (test code = B/C Ratio) 16 6-25 [facility]2015-01-06 12:41:00 Test Item Value Reference Range Interpretation Comments Globulin (test code = Globulin) 3.8 2.0-4.0 [facility]2015-01-06 12:41:00 Test Item Value Reference Range Interpretation Comments eGFR (test code = eGFR) 57 [facility]2015-01-06 12:41:00 Test Item Value Reference Range Interpretation Comments Potassium Lvl (test code = Potassium 3.8 3.5-5.1 Lvl) [facility]2015-01-06 12:41:00 Test Item Value Reference Range Interpretation Comments Sodium Lvl (test code = Sodium Lvl) 144 135-145 [facility]2015-01-06 12:41:00 Test Item Value Reference Range Interpretation Comments Creatinine Lvl (test code = Creatinine 1.0 0.5-1.4 Lvl) [facility]2015-01-06 12:41:00 Test Item Value Reference Range Interpretation Comments Chloride Lvl (test code = Chloride Lvl) 109 95-109 [facility]2015-01-06 12:41:00 Test Item Value Reference Range Interpretation Comments Calcium Lvl (test code = Calcium Lvl) 8.7 8.5-10.5 [facility]2015-01-06 12:41:00 Test Item Value Reference Range Interpretation Comments Bili Total (test code = Bili Total) 0.5 0.2-1.3 [facility]2015-01-06 12:41:00 Test Item Value Reference Range Interpretation Comments AST (test code = AST) 13 See_Comment [Auto mated message] The system which ge nerated this result transmit son reference range : <=37. The reference range was not used to interpr et this result as nikki l/abnormal. [facility]2015-01-06 12:41:00 Test Item Value Reference Range Interpretation Comments Alk Phos (test code = Alk Phos) 66 39-136 [facility]2015-01-06 12:41:00 Test Item Value Reference Range Interpretation Comments Total Protein (test code = Total 7.5 6.4-8.4 Protein) [facility]2015-01-06 12:41:00 Test Item Value Reference Range Interpretation Comments Albumin Lvl (test code = Albumin Lvl) 3.7 3.5-5.0 [facility]2015-01-06 12:41:00 Test Item Value Reference Range Interpretation Comments ALT (test code = ALT) 25 See_Comment [Auto mated message] The system which ge nerated this result transmit son reference range : <=65. The reference range was not used to interpr et this result as nikki l/abnormal. [facility]2015-01-06 12:41:00 Test Item Value Reference Range Interpretation Comments BUN (test code = BUN) 16 7-22 [facility]2015-01-06 12:41:00 Test Item Value Reference Range Interpretation Comments CO2 (test code = CO2) 28 24-32 [facility]2015-01-06 12:41:00 Test Item Value Reference Range Interpretation Comments Glucose Lvl (test code = Glucose Lvl) 97 70-99 [facility] CenterNrmjwmaGGAOLXDLPV4455-45-44 12:41:00 Test Item Value Reference Range Interpretation Comments INR (test code = INR) 0.95 0.85-1.17 [facility] CenterGnmcoytFBGHQTFFXS9325-06-42 12:41:00 Test Item Value Reference Range Interpretation Comments PT (test code = PT) 12.7 s 12.0-14.7 [facility] CenterWasedlcHFGFBMQDOT1631-55-61 12:41:00 Test Item Value Reference Range Interpretation Comments PTT (test code = PTT) 32.9 s 22.9-35.8 [place] [id number] 12:41:00 Test Item Value Reference Range Interpretation Comments Monocytes (test code = Monocytes) 7.1 2.0-12.0 [facility] CenterAfhizhpATOOAEGGMY7410-16-11 12:41:00 Test Item Value Reference Range Interpretation Comments Segs (test code = Segs) 58.7 45.0-75.0 [facility] CenterRjovawxNNEHTCSARC0222-44-78 12:41:00 Test Item Value Reference Range Interpretation Comments Basophils (test code = 0.5 See_Comment [Aut omated message] The Basophils) system which ge nerated this result tra nsmitted reference range : <=1.0. The reference r bill was not used to int erpret this result as normal/abnormal . [facility] CenterOhdvdfmNHRZSTNNUN5260-28-60 12:41:00 Test Item Value Reference Range Interpretation Comments Lymphocytes (test code = Lymphocytes) 32.5 20.0-40.0 [facility] CenterGnfobnhVHTTLAKJGW8759-01-71 12:41:00 Test Item Value Reference Range Interpretation Comments Segs-Bands # (test code = Segs-Bands #) 3.5 1.5-8.1 [facility] CenterMuyzmyyVASGYEFKBS2203-17-31 12:41:00 Test Item Value Reference Range Interpretation Comments Eosinophils (test code = 1.2 See_Comment [A utomated message] The Eosinophils) system which ge nerated this result tra nsmitted reference range : <=4.0. The reference r bill was not used to int erpret this result as normal/abnormal . [facility] CenterGtmgtioOXRGCOWOJN9285-56-58 12:41:00 Test Item Value Reference Range Interpretation Comments Eosinophils # (test code 0.1 See_Comment [A utomated message] The = Eosinophils #) system [facility] generated this result tra nsmitted reference range : <=0.5. The reference r bill was not used to int erpret this result as normal/abnormal . [facility] CenterXqcgsmrPWMJJQLIOX3316-40-60 12:41:00 Test Item Value Reference Range Interpretation Comments Lymphocytes # (test code = Lymphocytes 1.9 1.0-5.5 #) [facility] CenterQlyzbszJNCKSNSCWO6610-91-93 12:41:00 Test Item Value Reference Range Interpretation Comments Monocytes # (test code 0.4 See_Comment [Aut omated message] The = Monocytes #) system which generated this result tra nsmitted reference range : <=0.8. The reference r bill was not used to int erpret this result as normal/abnormal . [facility] CenterEypedgvFCZSRHCSYF6413-30-39 12:41:00 Test Item Value Reference Range Interpretation Comments RBC (test code = RBC) 4.04 4.20-5.40 [facility] CenterIgrpgyePXBIZNTEXH2226-95-67 12:41:00 Test Item Value Reference Range Interpretation Comments WBC (test code = WBC) 5.9 3.7-10.4 [facility] CenterEcuewyhUAZVTVTJTH1522-63-75 12:41:00 Test Item Value Reference Range Interpretation Comments Hct (test code = Hct) 38.5 36.0-48.0 [facility] CenterEbpbjlrMUAEORKWYR5375-59-72 12:41:00 Test Item Value Reference Range Interpretation Comments Hgb (test code = Hgb) 13.1 12.0-16.0 [facility] CenterYbjbqqeSMZHTARPJW7911-08-10 12:41:00 Test Item Value Reference Range Interpretation Comments MCV (test code = MCV) 95.5 80.0-98.0 [facility] CenterIihlgsmFJMCERWRIA1670-87-93 12:41:00 Test Item Value Reference Range Interpretation Comments MCHC (test code = MCHC) 34.0 32.0-36.0 [facility] CenterUqurbysDUBVRKDKYM7196-85-46 12:41:00 Test Item Value Reference Range Interpretation Comments MCH (test code = MCH) 32.5 pg 27.0-31.0 [facility] CenterHkciemoXMPRLZBFOF8277-35-22 12:41:00 Test Item Value Reference Range Interpretation Comments RDW (test code = RDW) 13.3 11.5-14.5 [facility] CenterIshxwymDUUJPBAMVK9462-33-34 12:41:00 Test Item Value Reference Range Interpretation Comments MPV (test code = MPV) 9.6 7.4-10.4 [facility] CenterGgdgggvEYGEUVQKEQ8263-79-45 12:41:00 Test Item Value Reference Range Interpretation Comments Platelet (test code = Platelet) 215 133-450 [facility] [id number] 12:26:00 Test Item Value Reference Range Interpretation Comments RBC product (test code Product available = RBC product) 1(05/19/14 6:26 AM) [facility] B[facility] [id number] 12:26:00 Test Item Value Reference Range Interpretation Comments RBC product (test code Product available = RBC product) 1(05/19/14 6:26 AM) [facility] BANK [id number] 12:26:00 Test Item Value Reference Range Interpretation Comments RBC product (test code Product available = RBC product) 1(05/19/14 6:26 AM) [facility] BANK [id number] 12:26:00 Test Item Value Reference Range Interpretation Comments RBC product (test code Product available = RBC product) 1(05/19/14 6:26 AM) [facility] AND [id number] 19:46:19 Test Item Value Reference Range Interpretation Comments UA Color (test code = UA Color) Ltyellow [facility] AND [id number] 19:46:19 Test Item Value Reference Range Interpretation Comments UA Urobilinogen (test code = UA <=1.0 mg/dL 0.1-1.0 Urobilinogen) [facility] AND [id number] 19:46:19 Test Item Value Reference Range Interpretation Comments UA Hyal Cast (test 3 See_Comment [Automat ed message] The code = UA Hyal Cast) system which generated this result transmit son reference range : <=2. The reference range was not used to interpr et this result as nikki l/abnormal. [facility] AND [id number] 19:46:19 Test Item Value Reference Range Interpretation Comments UA Mucus (test code = UA Mucus) Few /LPF [facility] AND [id number] 19:46:19 Test Item Value Reference Range Interpretation Comments UA RBC (test code = 2 See_Comment [Automa son message] The UA RBC) system which ge nerated this result transmit son reference range : <=2. The reference range was not used to interpr et this result as nikki l/abnormal. [facility] AND [id number] 19:46:19 Test Item Value Reference Range Interpretation Comments UA Bacteria (test code = UA Occasional /HPF Bacteria) [facility] AND [id number] 19:46:19 Test Item Value Reference Range Interpretation Comments UA Leuk Est (test code Trace *ABN*(07/09/2013 = UA Leuk Est) 13:46:19 [facility]) [facility] AND [id number] 19:46:19 Test Item Value Reference Range Interpretation Comments UA WBC (test code = 9 See_Comment [Automa son message] The UA WBC) system which ge nerated this result transmit son reference range : <=5. The reference range was not used to interpr et this result as nikki l/abnormal. [facility] AND [id number] 19:46:19 Test Item Value Reference Range Interpretation Comments UA Sq Epi (test code = UA Sq Moderate /LPF Epi) [facility] AND [id number] 19:46:19 Test Item Value Reference Range Interpretation Comments UA Blood (test code = Negative (07/09/2013 UA Blood) 13:46:19 [facility]) [facility] AND [id number] 19:46:19 Test Item Value Reference Range Interpretation Comments UA Nitrite (test code Negative (07/09/2013 = UA Nitrite) 13:46:19 [facility]) [facility] AND [id number] 19:46:19 Test Item Value Reference Range Interpretation Comments UA Bili (test code = Negative *NA*(07/09/2013 UA Bili) 13:46:19 [facility]) [facility] AND [id number] 19:46:19 Test Item Value Reference Range Interpretation Comments UA Ketones (test code = UA Negative mg/dL Ketones) [facility] AND [id number] 19:46:19 Test Item Value Reference Range Interpretation Comments UA Glucose (test code = UA Negative mg/dL Glucose) [facility] AND [id number] 19:46:19 Test Item Value Reference Range Interpretation Comments UA Protein (test code = UA Negative mg/dL Protein) [facility] AND [id number] 19:46:19 Test Item Value Reference Range Interpretation Comments UA pH (test code = UA pH) 6.0 5.0-8.0 [facility] AND [id number] 19:46:19 Test Item Value Reference Range Interpretation Comments UA Turbidity (test code Marked = UA Turbidity) *ABN*(07/09/2013 13:46:19 [facility]) [facility] AND [id number] 19:46:19 Test Item Value Reference Range Interpretation Comments UA Spec Grav (test code = UA Spec Grav) 1.010 [facility] AND [id number] 19:46:19 Test Item Value Reference Range Interpretation Comments UA Color (test code = UA Color) Ltyellow [facility] AND [id number] 19:46:19 Test Item Value Reference Range Interpretation Comments UA Urobilinogen (test code = UA <=1.0 mg/dL 0.1-1.0 Urobilinogen) [facility] AND [id number] 19:46:19 Test Item Value Reference Range Interpretation Comments UA Hyal Cast (test 3 See_Comment [Automat ed message] The code = UA Hyal Cast) system which generated this result transmit son reference range : <=2. The reference range was not used to interpr et this result as nikki l/abnormal. [facility] AND [id number] 19:46:19 Test Item Value Reference Range Interpretation Comments UA Mucus (test code = UA Mucus) Few /LPF [facility] AND [id number] 19:46:19 Test Item Value Reference Range Interpretation Comments UA RBC (test code = 2 See_Comment [Automa son message] The UA RBC) system which ge nerated this result transmit son reference range : <=2. The reference range was not used to interpr et this result as nikki l/abnormal. [facility] AND [id number] 19:46:19 Test Item Value Reference Range Interpretation Comments UA Bacteria (test code = UA Occasional /HPF Bacteria) [facility] AND [id number] 19:46:19 Test Item Value Reference Range Interpretation Comments UA Leuk Est (test code Trace *ABN*(07/09/2013 = UA Leuk Est) 13:46:19 [place]) [facility] AND [id number] 19:46:19 Test Item Value Reference Range Interpretation Comments UA WBC (test code = 9 See_Comment [Automa son message] The UA WBC) system which ge nerated this result transmit son reference range : <=5. The reference range was not used to interpr et this result as nikki l/abnormal. [facility] AND [id number] 19:46:19 Test Item Value Reference Range Interpretation Comments UA Sq Epi (test code = UA Sq Moderate /LPF Epi) [facility] AND [id number] 19:46:19 Test Item Value Reference Range Interpretation Comments UA Blood (test code = Negative (07/09/2013 UA Blood) 13:46:19 [facility]) [facility] AND [id number] 19:46:19 Test Item Value Reference Range Interpretation Comments UA Nitrite (test code Negative (07/09/2013 = UA Nitrite) 13:46:19 [facility]) [facility] AND [id number] 19:46:19 Test Item Value Reference Range Interpretation Comments UA Bili (test code = Negative *NA*(07/09/2013 UA Bili) 13:46:19 [facility]) [facility] AND [id number] 19:46:19 Test Item Value Reference Range Interpretation Comments UA Ketones (test code = UA Negative mg/dL Ketones) [facility] AND [id number] 19:46:19 Test Item Value Reference Range Interpretation Comments UA Glucose (test code = UA Negative mg/dL Glucose) [facility] AND [id number] 19:46:19 Test Item Value Reference Range Interpretation Comments UA Protein (test code = UA Negative mg/dL Protein) [facility] AND [id number] 19:46:19 Test Item Value Reference Range Interpretation Comments UA pH (test code = UA pH) 6.0 5.0-8.0 [facility] AND [id number] 19:46:19 Test Item Value Reference Range Interpretation Comments UA Turbidity (test code Marked = UA Turbidity) *ABN*(07/09/2013 13:46:19 [facility]) [facility] AND [id number] 19:46:19 Test Item Value Reference Range Interpretation Comments UA Spec Grav (test code = UA Spec Grav) 1.010 [facility] AND [id number] 19:46:19 Test Item Value Reference Range Interpretation Comments UA Color (test code = UA Color) Ltyellow [facility] AND [id number] 19:46:19 Test Item Value Reference Range Interpretation Comments UA Urobilinogen (test code = UA <=1.0 mg/dL 0.1-1.0 Urobilinogen) [facility] AND [id number] 19:46:19 Test Item Value Reference Range Interpretation Comments UA Hyal Cast (test 3 See_Comment [Automat ed message] The code = UA Hyal Cast) system which generated this result transmit son reference range : <=2. The reference range was not used to interpr et this result as nikki l/abnormal. [facility] AND [id number] 19:46:19 Test Item Value Reference Range Interpretation Comments UA Mucus (test code = UA Mucus) Few /LPF [facility] AND [id number] 19:46:19 Test Item Value Reference Range Interpretation Comments UA RBC (test code = 2 See_Comment [Automa son message] The UA RBC) system which ge nerated this result transmit son reference range : <=2. The reference range was not used to interpr et this result as nikki l/abnormal. [facility] AND [id number] 19:46:19 Test Item Value Reference Range Interpretation Comments UA Bacteria (test code = UA Occasional /HPF Bacteria) [facility] AND [id number] 19:46:19 Test Item Value Reference Range Interpretation Comments UA Leuk Est (test code Trace *ABN*(07/09/2013 = UA Leuk Est) 13:46:19 [facility] AND [id number] 19:46:19 Test Item Value Reference Range Interpretation Comments UA WBC (test code = 9 See_Comment [Automa son message] The UA WBC) system which ge nerated this result transmit son reference range : <=5. The reference range was not used to interpr et this result as nikki l/abnormal. [facility] AND [id number] 19:46:19 Test Item Value Reference Range Interpretation Comments UA Sq Epi (test code = UA Sq Moderate /LPF Epi) [facility] AND [id number] 19:46:19 Test Item Value Reference Range Interpretation Comments UA Blood (test code = Negative (07/09/2013 UA Blood) 13:46:19 [facility]/[place]) [facility] AND [id number] 19:46:19 Test Item Value Reference Range Interpretation Comments UA Nitrite (test code Negative (07/09/2013 = UA Nitrite) 13:46:19 [facility]/[place]) [facility] AND [id number] 19:46:19 Test Item Value Reference Range Interpretation Comments UA Bili (test code = Negative *NA*(07/09/2013 UA Bili) 13:46:19 [facility]/[place]) [facility] AND [id number] 19:46:19 Test Item Value Reference Range Interpretation Comments UA Ketones (test code = UA Negative mg/dL Ketones) [facility] AND [id number] 19:46:19 Test Item Value Reference Range Interpretation Comments UA Glucose (test code = UA Negative mg/dL Glucose) [facility] AND [id number] 19:46:19 Test Item Value Reference Range Interpretation Comments UA Protein (test code = UA Negative mg/dL Protein) [facility] AND [id number] 19:46:19 Test Item Value Reference Range Interpretation Comments UA pH (test code = UA pH) 6.0 5.0-8.0 [facility] AND [id number] 19:46:19 Test Item Value Reference Range Interpretation Comments UA Turbidity (test code Marked = UA Turbidity) *ABN*(07/09/2013 13:46:19 [facility]/[place]) [facility] AND [id number] 19:46:19 Test Item Value Reference Range Interpretation Comments UA Spec Grav (test code = UA Spec Grav) 1.010 [facility] AND [id number] 19:46:19 Test Item Value Reference Range Interpretation Comments UA Color (test code = UA Color) Ltyellow [facility] AND [id number] 19:46:19 Test Item Value Reference Range Interpretation Comments UA Urobilinogen (test code = UA <=1.0 mg/dL 0.1-1.0 Urobilinogen) [facility] AND [id number] 19:46:19 Test Item Value Reference Range Interpretation Comments UA Hyal Cast (test 3 See_Comment [Automat ed message] The code = UA Hyal Cast) system which generated this result transmit son reference range : <=2. The reference range was not used to interpr et this result as nikki l/abnormal. [facility] AND [id number] 19:46:19 Test Item Value Reference Range Interpretation Comments UA Mucus (test code = UA Mucus) [facility] /[facility]F [facility] [id number] 19:46:19 Test Item Value Reference Range Interpretation Comments UA RBC (test code = 2 See_Comment [Automa son message] The UA RBC) system which ge nerated this result transmit son reference range : <=2. The reference range was not used to interpr et this result as nikki l/abnormal. [facility] [id number] 19:46:19 Test Item Value Reference Range Interpretation Comments UA Bacteria (test code = UA Occasional /HPF Bacteria) [facility] [id number] 19:46:19 Test Item Value Reference Range Interpretation Comments UA Leuk Est (test code Trace *ABN*(07/09/2013 = UA Leuk Est) 13:46:19 [facility] [id number] 19:46:19 Test Item Value Reference Range Interpretation Comments UA WBC (test code = 9 See_Comment [Automa son message] The UA WBC) system which ge nerated this result transmit son reference range : <=5. The reference range was not used to interpr et this result as nikki l/abnormal. [facility] [id number] 19:46:19 Test Item Value Reference Range Interpretation Comments UA Sq Epi (test code = UA Sq Moderate /LPF Epi) [facility] AND [id number] 19:46:19 Test Item Value Reference Range Interpretation Comments UA Blood (test code = Negative (07/09/2013 UA Blood) 13:46:19 [facility]/[place]) [facility] AND [id number] 19:46:19 Test Item Value Reference Range Interpretation Comments UA Nitrite (test code Negative (07/09/2013 = UA Nitrite) 13:46:19 [facility]) [facility] [id number] 19:46:19 Test Item Value Reference Range Interpretation Comments UA Bili (test code = Negative *NA*(07/09/2013 UA Bili) 13:46:19 [facility]) [facility] AND [id number] 19:46:19 Test Item Value Reference Range Interpretation Comments UA Ketones (test code = UA Negative mg/dL Ketones) [facility] AND [id number] 19:46:19 Test Item Value Reference Range Interpretation Comments UA Glucose (test code = UA Negative mg/dL Glucose) [facility] AND [id number] 19:46:19 Test Item Value Reference Range Interpretation Comments UA Protein (test code = UA Negative mg/dL Protein) [facility] [id number] 19:46:19 Test Item Value Reference Range Interpretation Comments UA pH (test code = UA pH) 6.0 5.0-8.0 [facility] AND [id number] 19:46:19 Test Item Value Reference Range Interpretation Comments UA Turbidity (test code Marked = UA Turbidity) *ABN*(07/09/2013 13:46:19 [place]) [facility] AND [id number] 19:46:19 Test Item Value Reference Range Interpretation Comments UA Spec Grav (test code = UA Spec Grav) 1.010 [facility]annC[facility] [id number] 17:15:00 Test Item Value Reference Range Interpretation Comments Troponin-I (test code no gt See_Comment [Auto mated message] The = Troponin-I) system which g enerated this result transmit son reference range : <=0.40. The reference r bill was not used to interpr et this result as nikki l/abnormal. [facility] [id number] 17:15:00 Test Item Value Reference Range Interpretation Comments BNP (test code = BNP) 34 [facility]ann[facility] [id number] 17:15:00 Test Item Value Reference Range Interpretation Comments CK MB (test code = CK MB) no gt 0.5-3.6 [facility] [id number] 17:15:00 Test Item Value Reference Range Interpretation Comments Total CK (test code = Total CK) 33 12-191 [facility] [id number] 17:15:00 Test Item Value Reference Range Interpretation Comments CK-MB INDEX (test no gt See_Comment [Automate d message] The code = CK-MB INDEX) system w [facility] generated this result transmit son reference range : <=2.5. The reference range was not used to interpr et this result as nikki l/abnormal. [facility] [id number] 17:15:00 Test Item Value Reference Range Interpretation Comments Globulin (test code = Globulin) 4.2 2.0-4.0 [facility]2014-02-26 17:15:00 Test Item Value Reference Range Interpretation Comments A/G Ratio (test code = A/G Ratio) 0.9 0.7-1.6 [facility]2014-02-26 17:15:00 Test Item Value Reference Range Interpretation Comments AGAP (test code = AGAP) 14.7 10.0-20.0 [facility]2014-02-26 17:15:00 Test Item Value Reference Range Interpretation Comments B/C Ratio (test code = B/C Ratio) 21 6-25 [facility]2014-02-26 17:15:00 Test Item Value Reference Range Interpretation Comments eGFR (test code = eGFR) 46 [facility]2014-02-26 17:15:00 Test Item Value Reference Range Interpretation Comments Creatinine Lvl (test code = Creatinine 1.2 0.5-1.4 Lvl) [facility]2014-02-26 17:15:00 Test Item Value Reference Range Interpretation Comments BUN (test code = BUN) 25 7-22 [facility]2014-02-26 17:15:00 Test Item Value Reference Range Interpretation Comments Sodium Lvl (test code = Sodium Lvl) 144 135-145 [facility]2014-02-26 17:15:00 Test Item Value Reference Range Interpretation Comments ALANINE AMINOTRANSFERASE 26 See_Comment [A utomated message] (test code = ALANINE The sys tem which AMINOTRANSFERASE) generated this result transmitted ref erence range: <=65. Th e reference range was not used to int erpret this result as normal/abnormal . [facility]2014-02-26 17:15:00 Test Item Value Reference Range Interpretation Comments Albumin Lvl (test code = Albumin Lvl) 3.9 3.5-5.0 [facility]2014-02-26 17:15:00 Test Item Value Reference Range Interpretation Comments Bili Total (test code = Bili Total) 0.5 0.2-1.3 [facility]2014-02-26 17:15:00 Test Item Value Reference Range Interpretation Comments Alk Phos (test code = Alk Phos) 78 39-136 [facility]2014-02-26 17:15:00 Test Item Value Reference Range Interpretation Comments Potassium Lvl (test code = Potassium 3.7 3.5-5.1 Lvl) [facility]2014-02-26 17:15:00 Test Item Value Reference Range Interpretation Comments Chloride Lvl (test code = Chloride Lvl) 110 95-109 [facility]2014-02-26 17:15:00 Test Item Value Reference Range Interpretation Comments CO2 (test code = CO2) 23 24-32 [facility]2014-02-26 17:15:00 Test Item Value Reference Range Interpretation Comments Calcium Lvl (test code = Calcium Lvl) 9.1 8.5-10.5 [facility]2014-02-26 17:15:00 Test Item Value Reference Range Interpretation Comments Total Protein (test code = Total 8.1 6.4-8.4 Protein) [facility]2014-02-26 17:15:00 Test Item Value Reference Range Interpretation Comments ASPARTATE TRANSAMINASE 8 See_Comment [Aut omated message] (test code = ASPARTATE The s ystem which TRANSAMINASE) generated this result transmitted ref erence range: <=37. Th e reference range was not used to interpr et this result as normal/abnormal . [facility]2014-02-26 17:15:00 Test Item Value Reference Range Interpretation Comments Glucose Lvl (test code = Glucose Lvl) 115 70-99 [id number] 17:15:00 Test Item Value Reference Range Interpretation Comments aPTT (test code = aPTT) 25.5 s 22.9-35.8 [facility] CenterZbtqifuVYHRDTYTKH4527-78-56 17:15:00 Test Item Value Reference Range Interpretation Comments PROTIME (test code = PROTIME) 12.7 s 12.0-14.7 [facility] [id number] 17:15:00 Test Item Value Reference Range Interpretation Comments INR (test code = INR) 0.96 0.85-1.17 [place] [id number] 17:15:00 Test Item Value Reference Range Interpretation Comments Platelet (test code = Platelet) 234 133-450 [facility] CenterYlezmajIHOERHCNSF4315-33-22 17:15:00 Test Item Value Reference Range Interpretation Comments MPV (test code = MPV) 9.1 7.4-10.4 [facility] CenterUxdxglzMQQVBOKAQQ3604-45-19 17:15:00 Test Item Value Reference Range Interpretation Comments RDW (test code = RDW) 12.4 11.5-14.5 [facility] CenterGxgwnrnRHJBQZVQUH8544-58-02 17:15:00 Test Item Value Reference Range Interpretation Comments RBC X 10x6 (test code = RBC X 10x6) 4.50 4.20-5.40 [facility] CenterWllusuuEXTMHEJKMA8734-60-26 17:15:00 Test Item Value Reference Range Interpretation Comments WBC X 10x3 (test code = WBC X 10x3) 13.3 3.7-10.4 [facility] CenterIkptuteDPQASMLNHH9988-70-12 17:15:00 Test Item Value Reference Range Interpretation Comments MCHC (test code = MCHC) 34.5 32.0-36.0 [facility] CenterPifojbvTUFPLBVICW2488-05-29 17:15:00 Test Item Value Reference Range Interpretation Comments MCH (test code = MCH) 32.0 pg 27.0-31.0 [facility] CenterBkwfipiQMKSKSSOHF3183-47-97 17:15:00 Test Item Value Reference Range Interpretation Comments MCV (test code = MCV) 92.7 81.0-99.0 [facility] CenterVdqazibNIDDKJWFMT9111-76-31 17:15:00 Test Item Value Reference Range Interpretation Comments Hgb (test code = Hgb) 14.4 12.0-16.0 [facility] CenterFhtihzjHTNRNRPGTQ8747-86-34 17:15:00 Test Item Value Reference Range Interpretation Comments Hct (test code = Hct) 41.7 36.0-48.0 [facility] CenterXlzcxrhRMHVIEDIXU1333-50-70 17:15:00 Test Item Value Reference Range Interpretation Comments Basophils # (test code 0.0 See_Comment [Aut omated message] The = Basophils #) system which generated this result tra nsmitted reference range : <=0.2. The reference r bill was not used to int erpret this result as normal/abnormal . [facility] CenterVovdxanYUWGKGQVTY6261-46-31 17:15:00 Test Item Value Reference Range Interpretation Comments Eosinophils # (test code 0.0 See_Comment [A utomated message] The = Eosinophils #) system whic h generated this result tra nsmitted reference range : <=0.5. The reference r bill was not used to int erpret this result as normal/abnormal . [facility] CenterSjulmnrEBYLGOTATW8199-12-99 17:15:00 Test Item Value Reference Range Interpretation Comments Monocytes # (test code 0.6 See_Comment [Aut omated message] The = Monocytes #) system which generated this result tra nsmitted reference range : <=0.8. The reference r bill was not used to int erpret this result as normal/abnormal . [facility] CenterXdkkpvvHGEXCEIYFD8200-59-23 17:15:00 Test Item Value Reference Range Interpretation Comments Lymphocytes # (test code = Lymphocytes 1.3 1.0-5.5 #) [facility] CenterBtnmoimPWTKPDXCWL0003-58-53 17:15:00 Test Item Value Reference Range Interpretation Comments Segs-Bands # (test code = Segs-Bands #) 11.4 1.5-8.1 [facility] CenterAqabtkuITOOGQXVSO8924-45-52 17:15:00 Test Item Value Reference Range Interpretation Comments Eosinophils (test code = 0.1 See_Comment [A utomated message] The Eosinophils) system which ge nerated this result tra nsmitted reference range : <=4.0. The reference r bill was not used to int erpret this result as normal/abnormal . [facility] CenterFhdualuUFWJRDRJGE0628-20-13 17:15:00 Test Item Value Reference Range Interpretation Comments Monocytes (test code = Monocytes) 4.5 2.0-12.0 [facility] CenterFbzvoigCSYOFXPLLL6033-24-85 17:15:00 Test Item Value Reference Range Interpretation Comments Basophils (test code = 0.1 See_Comment [Aut omated message] The Basophils) system which ge nerated this result tra nsmitted reference range : <=1.0. The reference r bill was not used to int erpret this result as normal/abnormal . [facility] CenterFmshxyeJUHZKRWRTS9496-66-10 17:15:00 Test Item Value Reference Range Interpretation Comments Segs (test code = Segs) 85.7 45.0-75.0 [facility] CenterVtognjzAZPNRQNDTA6165-72-84 17:15:00 Test Item Value Reference Range Interpretation Comments Lymphocytes (test code = Lymphocytes) 9.6 20.0-40.0 [facility]DIUN[facility] HEALTHGUYTRKO6534-17-19 17:15:00 Test Item Value Reference Range Interpretation Comments Troponin-I (test code no gt See_Comment [Auto mated message] The = Troponin-I) system which g enerated this result transmit son reference range : <=0.40. The reference r bill was not used to interpr et this result as nikki l/abnormal. [facility] [employer]2014-02-26 17:15:00 Test Item Value Reference Range Interpretation Comments BNP (test code = BNP) 34 [facility] BrookLukkinAC [id number] 17:15:00 Test Item Value Reference Range Interpretation Comments CK MB (test code = CK MB) no gt 0.5-3.6 [facility] [employer]2014-02-26 17:15:00 Test Item Value Reference Range Interpretation Comments Total CK (test code = Total CK) 33 12-191 [facility] Brook[facility] [employer]2014-[facility]-26 17:15:00 Test Item Value Reference Range Interpretation Comments CK-MB INDEX (test no gt See_Comment [Automate d message] The code = CK-MB INDEX) system w [facility] generated this result transmit son reference range : <=2.5. The reference range was not used to interpr et this result as nikki l/abnormal. [facility] [employer]2014-02-26 17:15:00 Test Item Value Reference Range Interpretation Comments Globulin (test code = Globulin) 4.2 2.0-4.0 [facility] [employer]2014-02-26 17:15:00 Test Item Value Reference Range Interpretation Comments A/G Ratio (test code = A/G Ratio) 0.9 0.7-1.6 [facility] [employer]2014-02-26 17:15:00 Test Item Value Reference Range Interpretation Comments AGAP (test code = AGAP) 14.7 10.0-20.0 [facility] [employer]2014-02-26 17:15:00 Test Item Value Reference Range Interpretation Comments B/C Ratio (test code = B/C Ratio) 21 6-25 [facility] [employer]2014-02-26 17:15:00 Test Item Value Reference Range Interpretation Comments eGFR (test code = eGFR) 46 [facility] [employer]2014-02-26 17:15:00 Test Item Value Reference Range Interpretation Comments Creatinine Lvl (test code = Creatinine 1.2 0.5-1.4 Lvl) [facility]2014-02-26 17:15:00 Test Item Value Reference Range Interpretation Comments BUN (test code = BUN) 25 7-22 [facility]2014-02-26 17:15:00 Test Item Value Reference Range Interpretation Comments Sodium Lvl (test code = Sodium Lvl) 144 135-145 [facility]2014-02-26 17:15:00 Test Item Value Reference Range Interpretation Comments ALANINE AMINOTRANSFERASE 26 See_Comment [A utomated message] (test code = ALANINE The sys tem which AMINOTRANSFERASE) generated this result transmitted ref erence range: <=65. Th e reference range was not used to int erpret this result as normal/abnormal . [facility]2014-02-26 17:15:00 Test Item Value Reference Range Interpretation Comments Albumin Lvl (test code = Albumin Lvl) 3.9 3.5-5.0 [facility]2014-02-26 17:15:00 Test Item Value Reference Range Interpretation Comments Bili Total (test code = Bili Total) 0.5 0.2-1.3 [facility]2014-02-26 17:15:00 Test Item Value Reference Range Interpretation Comments Alk Phos (test code = Alk Phos) 78 39-136 [facility]2014-02-26 17:15:00 Test Item Value Reference Range Interpretation Comments Potassium Lvl (test code = Potassium 3.7 3.5-5.1 Lvl) [facility]2014-02-26 17:15:00 Test Item Value Reference Range Interpretation Comments Chloride Lvl (test code = Chloride Lvl) 110 95-109 [facility]2014-02-26 17:15:00 Test Item Value Reference Range Interpretation Comments CO2 (test code = CO2) 23 24-32 [facility]2014-02-26 17:15:00 Test Item Value Reference Range Interpretation Comments Calcium Lvl (test code = Calcium Lvl) 9.1 8.5-10.5 [facility]2014-02-26 17:15:00 Test Item Value Reference Range Interpretation Comments Total Protein (test code = Total 8.1 6.4-8.4 Protein) [facility]2014-02-26 17:15:00 Test Item Value Reference Range Interpretation Comments ASPARTATE TRANSAMINASE 8 See_Comment [Aut omated message] (test code = ASPARTATE The s ystem which TRANSAMINASE) generated this result transmitted ref erence range: <=37. Th e reference range was not used to interpr et this result as normal/abnormal . [facility] [id number] 17:15:00 Test Item Value Reference Range Interpretation Comments Glucose Lvl (test code = Glucose Lvl) 115 70-99 [facility] CenterKaawdjyJWONJLCRNF4902-40-34 17:15:00 Test Item Value Reference Range Interpretation Comments aPTT (test code = aPTT) 25.5 s 22.9-35.8 [facility] CenterIsqavzaPJZPOFAEZI3404-36-99 17:15:00 Test Item Value Reference Range Interpretation Comments PROTIME (test code = PROTIME) 12.7 s 12.0-14.7 [facility] CenterOwkjfuxZJVTGBIPAX9149-91-93 17:15:00 Test Item Value Reference Range Interpretation Comments INR (test code = INR) 0.96 0.85-1.17 [facility] CenterWxsckphGTOQGVBLEP9178-05-35 17:15:00 Test Item Value Reference Range Interpretation Comments Platelet (test code = Platelet) 234 133-450 [facility] CenterDhgomfrITATXEPYBS7687-96-75 17:15:00 Test Item Value Reference Range Interpretation Comments MPV (test code = MPV) 9.1 7.4-10.4 [facility] CenterViejsdeCZJHZOEDSZ4965-04-28 17:15:00 Test Item Value Reference Range Interpretation Comments RDW (test code = RDW) 12.4 11.5-14.5 [facility] CenterIvxoprzMJXVBTQPBN2872-86-12 17:15:00 Test Item Value Reference Range Interpretation Comments RBC X 10x6 (test code = RBC X 10x6) 4.50 4.20-5.40 [facility] CenterLklxrzjYEXCSHBNRH7501-10-76 17:15:00 Test Item Value Reference Range Interpretation Comments WBC X 10x3 (test code = WBC X 10x3) 13.3 3.7-10.4 [facility] CenterEiziixfGUALZDSNBL6761-80-90 17:15:00 Test Item Value Reference Range Interpretation Comments MCHC (test code = MCHC) 34.5 32.0-36.0 [facility] CenterXcxwrvkECPUFUODAO8804-80-20 17:15:00 Test Item Value Reference Range Interpretation Comments MCH (test code = MCH) 32.0 pg 27.0-31.0 [facility] CenterGcvvghrBXOTFUQRDS9040-26-50 17:15:00 Test Item Value Reference Range Interpretation Comments MCV (test code = MCV) 92.7 81.0-99.0 [facility] CenterAjdoeqcICQKRPEAHS9898-80-64 17:15:00 Test Item Value Reference Range Interpretation Comments Hgb (test code = Hgb) 14.4 12.0-16.0 [facility] CenterWaixxixSZIXXHBSST5003-06-99 17:15:00 Test Item Value Reference Range Interpretation Comments Hct (test code = Hct) 41.7 36.0-48.0 [facility] CenterVzvbieuAAJCOMEJBS4556-89-94 17:15:00 Test Item Value Reference Range Interpretation Comments Basophils # (test code 0.0 See_Comment [Aut omated message] The = Basophils #) system which generated this result tra nsmitted reference range : <=0.2. The reference r bill was not used to int erpret this result as normal/abnormal . [facility] CenterQsszprjXBCWUEHLKL3421-62-12 17:15:00 Test Item Value Reference Range Interpretation Comments Eosinophils # (test code 0.0 See_Comment [A utomated message] The = Eosinophils #) system whic h generated this result tra nsmitted reference range : <=0.5. The reference r bill was not used to int erpret this result as normal/abnormal . [facility] CenterRklfvbxACALPYTSJW6361-76-53 17:15:00 Test Item Value Reference Range Interpretation Comments Monocytes # (test code 0.6 See_Comment [Aut omated message] The = Monocytes #) system which generated this result tra nsmitted reference range : <=0.8. The reference r bill was not used to int erpret this result as normal/abnormal . [facility] CenterCczljhsTTFMAUMCWO1860-77-25 17:15:00 Test Item Value Reference Range Interpretation Comments Lymphocytes # (test code = Lymphocytes 1.3 1.0-5.5 #) [facility] CenterCozkiiwQLCIUYVUVA4877-40-90 17:15:00 Test Item Value Reference Range Interpretation Comments Segs-Bands # (test code = Segs-Bands #) 11.4 1.5-8.1 [facility] CenterXxfkptmTTOUBEEBUI1164-61-11 17:15:00 Test Item Value Reference Range Interpretation Comments Eosinophils (test code = 0.1 See_Comment [A utomated message] The Eosinophils) system which ge nerated this result tra nsmitted reference range : <=4.0. The reference r bill was not used to int erpret this result as normal/abnormal . [facility] CenterMuuoxxpKQPOACCTHC9699-60-88 17:15:00 Test Item Value Reference Range Interpretation Comments Monocytes (test code = Monocytes) 4.5 2.0-12.0 [facility] CenterVkuowdjEJQNLMBVBQ6610-58-93 17:15:00 Test Item Value Reference Range Interpretation Comments Basophils (test code = 0.1 See_Comment [Aut omated message] The Basophils) system which ge nerated this result tra nsmitted reference range : <=1.0. The reference r bill was not used to int erpret this result as normal/abnormal . [facility]CieowscJOXJNVCSQH8317-83-05 17:15:00 Test Item Value Reference Range Interpretation Comments Segs (test code = Segs) 85.7 45.0-75.0 [facility]aleZtmpogjPLHWUFTVFI3455-79-79 17:15:00 Test Item Value Reference Range Interpretation Comments Lymphocytes (test code = Lymphocytes) 9.6 20.0-40.0 [facility] BrookSuagi.comCARMYTEK Network SolutionsTFYSHAN0438-20-63 17:15:00 Test Item Value Reference Range Interpretation Comments Troponin-I (test code no gt See_Comment [Auto mated message] The = Troponin-I) system which g enerated this result transmit son reference range : <=0.40. The reference r bill was not used to interpr et this result as nikki l/abnormal. [facility] BrookSuagi.comCARDIAC QHZIENM4285-89-33 17:15:00 Test Item Value Reference Range Interpretation Comments BNP (test code = BNP) 34 [facility] BrookSuagi.comCARDIAC AVPWRYR1709-49-09 17:15:00 Test Item Value Reference Range Interpretation Comments CK MB (test code = CK MB) no gt 0.5-3.6 [facility] BrookSuagi.comCARDIAC LBONUGI4998-00-37 17:15:00 Test Item Value Reference Range Interpretation Comments Total CK (test code = Total CK) 33 12-191 [facility] BrookSuagi.comCARDIAC YMVRNZJ2630-54-75 17:15:00 Test Item Value Reference Range Interpretation Comments CK-MB INDEX (test no gt See_Comment [Automate d message] The code = CK-MB INDEX) system w [facility] generated this result transmit son reference range : <=2.5. The reference range was not used to interpr et this result as nikki l/abnormal. [facility]2014-02-26 17:15:00 Test Item Value Reference Range Interpretation Comments Globulin (test code = Globulin) 4.2 2.0-4.0 [facility]2014-02-26 17:15:00 Test Item Value Reference Range Interpretation Comments A/G Ratio (test code = A/G Ratio) 0.9 0.7-1.6 [facility]2014-02-26 17:15:00 Test Item Value Reference Range Interpretation Comments AGAP (test code = AGAP) 14.7 10.0-20.0 [facility]2014-02-26 17:15:00 Test Item Value Reference Range Interpretation Comments B/C Ratio (test code = B/C Ratio) 21 6-25 [facility]2014-02-26 17:15:00 Test Item Value Reference Range Interpretation Comments eGFR (test code = eGFR) 46 [facility]2014-02-26 17:15:00 Test Item Value Reference Range Interpretation Comments Creatinine Lvl (test code = Creatinine 1.2 0.5-1.4 Lvl) [facility]2014-02-26 17:15:00 Test Item Value Reference Range Interpretation Comments BUN (test code = BUN) 25 7-22 [facility]2014-02-26 17:15:00 Test Item Value Reference Range Interpretation Comments Sodium Lvl (test code = Sodium Lvl) 144 135-145 [facility]2014-02-26 17:15:00 Test Item Value Reference Range Interpretation Comments ALANINE AMINOTRANSFERASE 26 See_Comment [A utomated message] (test code = ALANINE The sys tem which AMINOTRANSFERASE) generated this result transmitted ref erence range: <=65. Th e reference range was not used to int erpret this result as normal/abnormal . [facility]2014-02-26 17:15:00 Test Item Value Reference Range Interpretation Comments Albumin Lvl (test code = Albumin Lvl) 3.9 3.5-5.0 [facility]2014-02-26 17:15:00 Test Item Value Reference Range Interpretation Comments Bili Total (test code = Bili Total) 0.5 0.2-1.3 [facility]2014-02-26 17:15:00 Test Item Value Reference Range Interpretation Comments Alk Phos (test code = Alk Phos) 78 39-136 [facility]2014-02-26 17:15:00 Test Item Value Reference Range Interpretation Comments Potassium Lvl (test code = Potassium 3.7 3.5-5.1 Lvl) [facility]2014-02-26 17:15:00 Test Item Value Reference Range Interpretation Comments Chloride Lvl (test code = Chloride Lvl) 110 95-109 [facility]2014-02-26 17:15:00 Test Item Value Reference Range Interpretation Comments CO2 (test code = CO2) 23 24-32 [facility]2014-02-26 17:15:00 Test Item Value Reference Range Interpretation Comments Calcium Lvl (test code = Calcium Lvl) 9.1 8.5-10.5 [facility]2014-02-26 17:15:00 Test Item Value Reference Range Interpretation Comments Total Protein (test code = Total 8.1 6.4-8.4 Protein) [facility]2014-02-26 17:15:00 Test Item Value Reference Range Interpretation Comments ASPARTATE TRANSAMINASE 8 See_Comment [Aut omated message] (test code = ASPARTATE The s ystem which TRANSAMINASE) generated this result transmitted ref erence range: <=37. Th e reference range was not used to interpr et this result as normal/abnormal . [facility]2014-02-26 17:15:00 Test Item Value Reference Range Interpretation Comments Glucose Lvl (test code = Glucose Lvl) 115 70-99 [facility] CenterZvcwyxgHOHZQENSYA7537-22-03 17:15:00 Test Item Value Reference Range Interpretation Comments aPTT (test code = aPTT) 25.5 s 22.9-35.8 [place] 025734-02-26 17:15:00 Test Item Value Reference Range Interpretation Comments PROTIME (test code = PROTIME) 12.7 s 12.0-14.7 [facility] CenterZzlzvhhLDXRHFFOPK9996-96-59 17:15:00 Test Item Value Reference Range Interpretation Comments INR (test code = INR) 0.96 0.85-1.17 [facility] CenterHtkaitsPTUITOOANJ1683-62-35 17:15:00 Test Item Value Reference Range Interpretation Comments Platelet (test code = Platelet) 234 133-450 [facility] CenterJwfskxtELLVNJVGZZ6566-62-92 17:15:00 Test Item Value Reference Range Interpretation Comments MPV (test code = MPV) 9.1 7.4-10.4 [facility] CenterUivrtpjAEXEMVEPOA5311-60-73 17:15:00 Test Item Value Reference Range Interpretation Comments RDW (test code = RDW) 12.4 11.5-14.5 [facility] CenterSornbnpCTFSXMIJEO5230-32-75 17:15:00 Test Item Value Reference Range Interpretation Comments RBC X 10x6 (test code = RBC X 10x6) 4.50 4.20-5.40 [facility] CenterFndibrpHFLGUZKRON5018-73-32 17:15:00 Test Item Value Reference Range Interpretation Comments WBC X 10x3 (test code = WBC X 10x3) 13.3 3.7-10.4 [facility] CenterDgyliapRTPHQOMZHB8955-97-61 17:15:00 Test Item Value Reference Range Interpretation Comments MCHC (test code = MCHC) 34.5 32.0-36.0 [facility] CenterIdmqtzcZWGOGSAIMH3376-37-43 17:15:00 Test Item Value Reference Range Interpretation Comments MCH (test code = MCH) 32.0 pg 27.0-31.0 [facility] CenterXxkqqnxLBBPTCVXMB5321-47-33 17:15:00 Test Item Value Reference Range Interpretation Comments MCV (test code = MCV) 92.7 81.0-99.0 [facility] CenterSxhiocdHLPOOWXRIC7204-41-32 17:15:00 Test Item Value Reference Range Interpretation Comments Hgb (test code = Hgb) 14.4 12.0-16.0 [facility] CenterVxipdjdVSILNDHLOS7994-52-72 17:15:00 Test Item Value Reference Range Interpretation Comments Hct (test code = Hct) 41.7 36.0-48.0 [facility] CenterMzcpdgdHFHYPWIELV0525-04-77 17:15:00 Test Item Value Reference Range Interpretation Comments Basophils # (test code 0.0 See_Comment [Aut omated message] The = Basophils #) system which generated this result tra nsmitted reference range : <=0.2. The reference r bill was not used to int erpret this result as normal/abnormal . [facility] CenterFjfjmidTEECZDRMNL7519-24-67 17:15:00 Test Item Value Reference Range Interpretation Comments Eosinophils # (test code 0.0 See_Comment [A utomated message] The = Eosinophils #) system wh h generated this result tra nsmitted reference range : <=0.5. The reference r bill was not used to int erpret this result as normal/abnormal . [facility] CenterRfcvnjbNTKPNXQZTZ3202-94-11 17:15:00 Test Item Value Reference Range Interpretation Comments Monocytes # (test code 0.6 See_Comment [Aut omated message] The = Monocytes #) system which generated this result tra nsmitted reference range : <=0.8. The reference r bill was not used to int erpret this result as normal/abnormal . [facility] CenterSacmyksAUYCZWEPGA0542-75-19 17:15:00 Test Item Value Reference Range Interpretation Comments Lymphocytes # (test code = Lymphocytes 1.3 1.0-5.5 #) [facility] CenterXdhzinkDCIFWGQQWB9196-37-87 17:15:00 Test Item Value Reference Range Interpretation Comments Segs-Bands # (test code = Segs-Bands #) 11.4 1.5-8.1 [facility] CenterFsdxqqjMWYRUDIKUS8680-07-62 17:15:00 Test Item Value Reference Range Interpretation Comments Eosinophils (test code = 0.1 See_Comment [A utomated message] The Eosinophils) system which ge nerated this result tra nsmitted reference range : <=4.0. The reference r bill was not used to int erpret this result as normal/abnormal . [facility] CenterUnzumnwRKXLMVFIPF6475-36-42 17:15:00 Test Item Value Reference Range Interpretation Comments Monocytes (test code = Monocytes) 4.5 2.0-12.0 [facility] CenterVocyfwdJKNIKSCSVF0545-49-51 17:15:00 Test Item Value Reference Range Interpretation Comments Basophils (test code = 0.1 See_Comment [Aut omated message] The Basophils) system which ge nerated this result tra nsmitted reference range : <=1.0. The reference r bill was not used to int erpret this result as normal/abnormal . [facility] CenterRkyuhzuRJHLTRKGXV5668-50-92 17:15:00 Test Item Value Reference Range Interpretation Comments Segs (test code = Segs) 85.7 45.0-75.0 [facility] XufjgtlYOEWVQDERR2397-03-34 17:15:00 Test Item Value Reference Range Interpretation Comments Lymphocytes (test code = Lymphocytes) 9.6 20.0-40.0 [facility] ROPLCVW2730[facility]83 17:15:00 Test Item Value Reference Range Interpretation Comments Troponin-I (test code no gt See_Comment [Auto mated message] The = Troponin-I) system which g enerated this result transmit son reference range : <=0.40. The reference r bill was not used to interpr et this result as nikki l/abnormal. [facility] eThor.comannCARCayenne MedicalAC UNCSGNZ8482-06-44 17:15:00 Test Item Value Reference Range Interpretation Comments BNP (test code = BNP) 34 [facility] eThor.comannCARCayenne MedicalAC ANSCWRG1587-24-82 17:15:00 Test Item Value Reference Range Interpretation Comments CK MB (test code = CK MB) no gt 0.5-3.6 [facility] eThor.comannObjectworld CommunicationsAC TOFIJWY0634-34-18 17:15:00 Test Item Value Reference Range Interpretation Comments Total CK (test code = Total CK) 33 12-191 [facility] ClearMyMailAC QMMFGAJ2145-63-69 17:15:00 Test Item Value Reference Range Interpretation Comments CK-MB INDEX (test no gt See_Comment [Automate d message] The code = CK-MB INDEX) system w [facility] generated this result transmit son reference range : <=2.5. The reference range was not used to interpr et this result as nikki l/abnormal. [facility] [employer] [id number] 17:15:00 Test Item Value Reference Range Interpretation Comments Globulin (test code = Globulin) 4.2 2.0-4.0 [facility] [employer] [id number] 17:15:00 Test Item Value Reference Range Interpretation Comments A/G Ratio (test code = A/G Ratio) 0.9 0.7-1.6 [facility] [employer] [id number] 17:15:00 Test Item Value Reference Range Interpretation Comments AGAP (test code = AGAP) 14.7 10.0-20.0 [facility] [employer] [id number] 17:15:00 Test Item Value Reference Range Interpretation Comments B/C Ratio (test code = B/C Ratio) 21 6-25 [facility]2014-02-26 17:15:00 Test Item Value Reference Range Interpretation Comments eGFR (test code = eGFR) 46 [facility]2014-02-26 17:15:00 Test Item Value Reference Range Interpretation Comments Creatinine Lvl (test code = Creatinine 1.2 0.5-1.4 Lvl) [facility]2014-02-26 17:15:00 Test Item Value Reference Range Interpretation Comments BUN (test code = BUN) 25 7-22 [facility]2014-02-26 17:15:00 Test Item Value Reference Range Interpretation Comments Sodium Lvl (test code = Sodium Lvl) 144 135-145 [facility]2014-02-26 17:15:00 Test Item Value Reference Range Interpretation Comments ALANINE AMINOTRANSFERASE 26 See_Comment [A utomated message] (test code = ALANINE The sys tem which AMINOTRANSFERASE) generated this result transmitted ref erence range: <=65. Th e reference range was not used to int erpret this result as normal/abnormal . [facility]2014-02-26 17:15:00 Test Item Value Reference Range Interpretation Comments Albumin Lvl (test code = Albumin Lvl) 3.9 3.5-5.0 [facility]2014-02-26 17:15:00 Test Item Value Reference Range Interpretation Comments Bili Total (test code = Bili Total) 0.5 0.2-1.3 [facility]2014-02-26 17:15:00 Test Item Value Reference Range Interpretation Comments Alk Phos (test code = Alk Phos) 78 39-136 [facility]2014-02-26 17:15:00 Test Item Value Reference Range Interpretation Comments Potassium Lvl (test code = Potassium 3.7 3.5-5.1 Lvl) [facility]2014-02-26 17:15:00 Test Item Value Reference Range Interpretation Comments Chloride Lvl (test code = Chloride Lvl) 110 95-109 [facility]2014-02-26 17:15:00 Test Item Value Reference Range Interpretation Comments CO2 (test code = CO2) 23 24-32 [facility]2014-02-26 17:15:00 Test Item Value Reference Range Interpretation Comments Calcium Lvl (test code = Calcium Lvl) 9.1 8.5-10.5 [facility]2014-02-26 17:15:00 Test Item Value Reference Range Interpretation Comments Total Protein (test code = Total 8.1 6.4-8.4 Protein) [facility]2014-02-26 17:15:00 Test Item Value Reference Range Interpretation Comments ASPARTATE TRANSAMINASE 8 See_Comment [Aut omated message] (test code = ASPARTATE The s ystem which TRANSAMINASE) generated this result transmitted ref erence range: <=37. Th e reference range was not used to interpr et this result as normal/abnormal . [facility]2014-02-26 17:15:00 Test Item Value Reference Range Interpretation Comments Glucose Lvl (test code = Glucose Lvl) 115 70-99 [facility] CenterVrvgvlrAXGXKDHVAZ4553-24-24 17:15:00 Test Item Value Reference Range Interpretation Comments aPTT (test code = aPTT) 25.5 s 22.9-35.8 [facility] CenterPjyruxaJMDUNWRJAS3810-52-63 17:15:00 Test Item Value Reference Range Interpretation Comments PROTIME (test code = PROTIME) 12.7 s 12.0-14.7 [facility] CenterFsahylmWBMENPNODA6240-12-18 17:15:00 Test Item Value Reference Range Interpretation Comments INR (test code = INR) 0.96 0.85-1.17 [facility] CenterVxrgrxqMLAZXQJHUU8568-96-46 17:15:00 Test Item Value Reference Range Interpretation Comments Platelet (test code = Platelet) 234 133-450 [facility] CenterKjiugnhZJQELDALMR9884-18-80 17:15:00 Test Item Value Reference Range Interpretation Comments MPV (test code = MPV) 9.1 7.4-10.4 [facility] CenterJwuoxnsZBGXKRXWUQ8933-75-91 17:15:00 Test Item Value Reference Range Interpretation Comments RDW (test code = RDW) 12.4 11.5-14.5 [facility] CenterSlieysgGBWCNEJTVT2348-03-50 17:15:00 Test Item Value Reference Range Interpretation Comments RBC X 10x6 (test code = RBC X 10x6) 4.50 4.20-5.40 [facility] CenterYvbdzyuOKYQQAJTQV8266-30-70 17:15:00 Test Item Value Reference Range Interpretation Comments WBC X 10x3 (test code = WBC X 10x3) 13.3 3.7-10.4 [facility] CenterPxbnvbtWGYREBNPCW5556-43-45 17:15:00 Test Item Value Reference Range Interpretation Comments MCHC (test code = MCHC) 34.5 32.0-36.0 [facility] CenterOmszzvpRKWBPPYFCZ2039-31-22 17:15:00 Test Item Value Reference Range Interpretation Comments MCH (test code = MCH) 32.0 pg 27.0-31.0 [facility] CenterEhvuxaaTNCSKJILKE9304-49-04 17:15:00 Test Item Value Reference Range Interpretation Comments MCV (test code = MCV) 92.7 81.0-99.0 [facility] CenterNrofrsiVQEUEGSDYJ9614-84-02 17:15:00 Test Item Value Reference Range Interpretation Comments Hgb (test code = Hgb) 14.4 12.0-16.0 [facility] CenterGkxxoewROGMREZYNU5928-45-62 17:15:00 Test Item Value Reference Range Interpretation Comments Hct (test code = Hct) 41.7 36.0-48.0 [facility] CenterXveicrlVGWNNQERAB3070-78-44 17:15:00 Test Item Value Reference Range Interpretation Comments Basophils # (test code 0.0 See_Comment [Aut omated message] The = Basophils #) system which generated this result tra nsmitted reference range : <=0.2. The reference r bill was not used to int erpret this result as normal/abnormal . [facility] CenterKuquvmpNVMMHUVADN9382-38-71 17:15:00 Test Item Value Reference Range Interpretation Comments Eosinophils # (test code 0.0 See_Comment [A utomated message] The = Eosinophils #) system whic h generated this result tra nsmitted reference range : <=0.5. The reference r bill was not used to int erpret this result as normal/abnormal . [facility] CenterUrovsgnEGIMWGUNJC9847-98-28 17:15:00 Test Item Value Reference Range Interpretation Comments Monocytes # (test code 0.6 See_Comment [Aut omated message] The = Monocytes #) system which generated this result tra nsmitted reference range : <=0.8. The reference r bill was not used to int erpret this result as normal/abnormal . [facility] CenterAtruwxbOFDPZOCSCS4688-62-88 17:15:00 Test Item Value Reference Range Interpretation Comments Lymphocytes # (test code = Lymphocytes 1.3 1.0-5.5 #) [facility] CenterMdurnwuILJOAUGGFX1503-99-83 17:15:00 Test Item Value Reference Range Interpretation Comments Segs-Bands # (test code = Segs-Bands #) 11.4 1.5-8.1 [facility] CenterSzmsrskNUIHYQWFTS3275-72-77 17:15:00 Test Item Value Reference Range Interpretation Comments Eosinophils (test code = 0.1 See_Comment [A utomated message] The Eosinophils) system which ge nerated this result tra nsmitted reference range : <=4.0. The reference r bill was not used to int erpret this result as normal/abnormal . [facility] CenterQcnjzasELGCHNLBOY7247-28-94 17:15:00 Test Item Value Reference Range Interpretation Comments Monocytes (test code = Monocytes) 4.5 2.0-12.0 [facility] CenterTmvpcoyOUIZRTKHAI1227-93-73 17:15:00 Test Item Value Reference Range Interpretation Comments Basophils (test code = 0.1 See_Comment [Aut omated message] The Basophils) system which ge nerated this result tra nsmitted reference range : <=1.0. The reference r bill was not used to int erpret this result as normal/abnormal . [facility] CenterGbqtwyrZVZTFEHTSQ3146-16-38 17:15:00 Test Item Value Reference Range Interpretation Comments Segs (test code = Segs) 85.7 45.0-75.0 [facility] CenterBowmtgqTPAJWVIFRN3442-78-44 17:15:00 Test Item Value Reference Range Interpretation Comments Lymphocytes (test code = Lymphocytes) 9.6 20.0-40.0 [facility]
[2022-06-19] MEDS ORDERED: NA CHLORIDE 0.9% 500 ML ONE (23:15)
[2022-06-19] MEDS ORDERED: NA CHLORIDE 0.9% 1,000 ML ONE (23:15)
[2022-06-19 23:36] LABS: Absolute Lymphocytes (CBC) 2.9 K/uL (0.7-4.9); Hematocrit 34.1 % (36.0-45.0); Lymphocytes % 33.5 % (15.3-44.8); MPV 8.4 fL (7.6-11.3); RBC Red Blood Cell Count 3.79 M/uL (3.86-4.86)
[2022-06-19 23:54] LABS: Bilirubin Direct 0.1 mg/dL (0-0.2); Bilirubin Total 0.2 mg/dL (0.2-1.0); Magnesium 2.1 mg/dL (1.6-2.4); Potassium 5.5 mmol/L (3.5-5.1); Protein, Total 8.6 g/dL (6.4-8.2)
[2022-06-19 23:57] LABS: SARS-CoV-2 Antigen Rapid Res Negative (Negative)
--- NOTE | 2022-06-20 00:27 | ER ---
Nurse's Notes [facility] Name: Ekta Allison Age: 76 yrs Sex: Female : 1945 Arrival Date: 06/19/2022 Time: 22:08 Bed 6 Private MD: Diagnosis: Acute kidney failure, unspecified;Epigastric abdominal tenderness;Colostomy complication, unspecified;Hyperkalemia;Hypotension, unspecified;Abnormal findings on diagnostic imaging of other abdominal regions, including retroperitoneum-SUBCAPSULAR FLUID COLLECTION 6CM X 2 CM Presentation: 06/19 22:09 Chief complaint: EMS states: 76 year old female reports having low blood pressure for ha1 the past few days. her doctor told her to come to the ER. Coronavirus screen: Vaccine status: Patient reports receiving the 2nd dose of the covid vaccine. Moderna. Ebola Screen: No symptoms or risks identified at this time. Initial Sepsis Screen: Does the patient meet any 2 criteria? No. Patient's initial sepsis screen is negative. Does the patient have a suspected source of infection? No. Patient's initial sepsis screen is negative. Risk Assessment: Do you want to hurt yourself or someone else? Patient reports no desire to harm self or others. Onset of symptoms was June 19, 2022. 22:09 Method Of Arrival: EMS: [place] ha1 22:09 Acuity: VINEET 3 ha1 Triage Assessment: 22:25 General: Appears comfortable, Behavior is calm, cooperative. Pain: Denies pain. EENT: ha1 No signs and/or symptoms were reported regarding the EENT system. Neuro: Level of Consciousness is awake, alert, obeys commands, Oriented to person, place, time, situation. Cardiovascular: Heart tones S1 S2 present Capillary refill < 3 seconds Patient's skin is warm and dry. Respiratory: Airway is patent Respiratory effort is even, unlabored, Respiratory pattern is regular, symmetrical. GI: No signs and/or symptoms were reported involving the gastrointestinal system. Colostomy site is clean and dry. Ostomy appliance Bowel sounds present X 4 quads. : No signs and/or symptoms were reported regarding the genitourinary system. Derm: Skin is pink, warm \\T\\ dry. Musculoskeletal: Circulation, motion, and sensation intact. Historical: - Allergies: 22:25 Iodinated Contrast Media - IV Dye; ha1 22:25 Vicodin; ha1 - PMHx: 22:25 High Cholesterol; Hypertension; Pacemaker; ha1 - Immunization history:: Adult Immunizations up to date. - Social history:: Smoking status: unknown. - Family history:: not pertinent. Screenin/07 00:52 Abuse screen: Denies threats or abuse. Denies injuries from another. Nutritional ha1 screening: No deficits noted. Tuberculosis screening: No symptoms or risk factors identified. 00:52 [facility] ED Fall Risk Assessment (Adult) History of falling in the last 3 months, ha1 including since admission No falls in past 3 months (0 pts) Confusion or Disorientation No (0 pts) Intoxicated or Sedated No (0 pts) Impaired Gait Yes (1 pt) Mobility Assist Device Used Yes (1 pt) Altered Elimination No (0 pt) Score/Fall Risk Level 0 - 2 = Low Risk Oriented to surroundings, Maintained a safe environment, Educated pt \\T\\ family on fall prevention, incl call for assistance when getting out of bed, Assessed \\T\\ reinforced patient's understanding of fall precautions, Hourly rounding (assess needs \\T\\ fall precautionary measures) done. Assessment: 06/19 22:08 Reassessment: see triage assessment. ha1 23:00 Reassessment: Patient and/or family updated on plan of care and expected duration. Pain ha1 level reassessed. Patient is alert, oriented x 3, equal unlabored respirations, skin warm/dry/pink. Patient denies pain at this time. 06/20 00:00 Reassessment: Patient and/or family updated on plan of care and expected duration. Pain ha1 level reassessed. Patient is alert, oriented x 3, equal unlabored respirations, skin warm/dry/pink. Patient denies pain at this time. 01:00 Reassessment: Patient and/or family updated on plan of care and expected duration. Pain ha1 level reassessed. Patient is alert, oriented x 3, equal unlabored respirations, skin warm/dry/pink. 02:00 Reassessment: Patient and/or family updated on plan of care and expected duration. Pain ha1 level reassessed. Patient is alert, oriented x 3, equal unlabored respirations, skin warm/dry/pink. Patient denies pain at this time. 03:00 Reassessment: Patient and/or family updated on plan of care and expected duration. Pain ha1 level reassessed. Patient is alert, oriented x 3, equal unlabored respirations, skin warm/dry/pink. Patient denies pain at this time. 04:00 Reassessment: Patient and/or family updated on plan of care and expected duration. Pain ha1 level reassessed. Patient is alert, oriented x 3, equal unlabored respirations, skin warm/dry/pink. pt. denies wanting to be transfer to the facility that was accepted. Notified Charge nurse and in shift. 05:00 Reassessment: Patient and/or family updated on plan of care and expected duration. Pain ha1 level reassessed. Patient is alert, oriented x 3, equal unlabored respirations, skin warm/dry/pink. talking to in the room. Patient denies pain at this time. 06:30 Reassessment: Patient and/or family updated on plan of care and expected duration. Pain ha1 level reassessed. Patient is alert, oriented x 3, equal unlabored respirations, skin warm/dry/pink. awaiting on transfer Patient denies pain at this time. 07:00 Reassessment: Patient and/or family updated on plan of care and expected duration. Pain ha1 level reassessed. Patient is alert, oriented x 3, equal unlabored respirations, skin warm/dry/pink. pt. reports wanting to leave AMA to go to the preferred hospital. dienied transfer to [facility]. States " I am going to [facility]". Vital Signs: 06/19 22:08 BP 113 / 46; Pulse 74; Resp 16 S; Pulse Ox 99% on R/A; 1 22:09 BP 113 / 46; Pulse 74; Resp 16 S; Temp 97.7(O); Pulse Ox 99% on R/A; Weight 50.35 kg; ha1 Height 5 ft. (152.40 cm); 23:00 BP 108 / 58; Pulse 72; Resp 16 S; Pulse Ox 99% on R/A; ha1 07 00:00 BP 115 / 40; Pulse 80; Resp 16 S; Pulse Ox 100% on R/A; ha1 01:00 BP 106 / 44; Pulse 82; Resp 16; Pulse Ox 100% on R/A; ha1 02:00 BP 114 / 45; Pulse 75; Resp 16 S; Pulse Ox 100% on R/A; ha1 03:00 BP 104 / 55; Pulse 72; Resp 15 S; Pulse Ox 99% on R/A; ha1 04:00 BP 123 / 54; Pulse 83; Resp 15 S; Pulse Ox 99% on R/A; ha1 05:00 BP 129 / 56; Pulse 84; Resp 16 S; Pulse Ox 99% on R/A; ha1 06:00 BP 124 / 50; Pulse 80; Resp 16 S; Pulse Ox 99% on R/A; ha1 02 22:09 Body Mass Index 21.68 (50.35 kg, 152.40 cm) ha1 ED Course: 06/19 22:08 Patient arrived in ED. rv1 22:25 Triage completed. ha1 22:25 Ihsan Milligan MD is Attending Physician. tere 22:25 Arm band placed on right wrist. ha1 23:00 Inserted saline lock: 22 gauge in right wrist, using aseptic technique. mb9 23:24 SARS RAPID Sent. as6 23:25 Basic Metabolic Panel Sent. mb9 23:25 CBC with Diff Sent. mb9 23:26 LFT's Sent. mb9 23:26 Magnesium Sent. mb9 23:26 NT PRO-BNP Sent. mb9 23:26 PT-INR Sent. mb9 23:26 Troponin HS Sent. mb9 23:34 Blood Culture Adult (2) Sent. mb9 23:34 Lactate w/ 2H reflex if indic. Sent. mb9 23:35 First set of blood cultures drawn by la, Second set of blood cultures drawn by lab mb9 staff. EKG done, by ED staff, reviewed by Ihsan Milligan MD. 23:48 XRAY Chest (1 view) In Process Unspecified. EDMS 23:48 CT Chest Abdomen Pelvis W/O Contrast In Process Unspecified. EDMS 06/20 00:10 Tamayo cath inserted, using sterile technique, 16 Fr., by la, balloon inflated, to ha1 gravity drainage, urine specimen collected. returned taras urine. Patient tolerated well. 00:20 Tim Canales MD is Hospitalizing Provider. tere 00:23 Notified ED physician of a critical lab result(s). lactate of 2.3 Dr Milligan notified. bb 00:25 Nadine Issa RN is Primary Nurse. ha1 03:[address] Milligan with Dr. Harvey. mw2 03:13 initiated a transfer with Jasmyn from [facility]. mw2 03:31 administrative approval given by Jasmyn Gold/ patient has been accepted to [address] to the ER/ Dr. Carter accepted the patient in transfer/report to be called to [phone]. 07:12 No provider procedures requiring assistance completed. IV discontinued, intact, ha1 bleeding controlled, No redness/swelling at site. Pressure dressing applied. 07:17 Primary Nurse role handed off by Nadine Issa, MAGNO ss Administered Medications: 06/19 23:24 Drug: NS 0.9% 500 ml Route: IV; Rate: bolus; Site: right forearm; as6 23:28 Drug: NS 0.9% 1000 ml Route: IV; Rate: 125 ml/hr; Site: right forearm; ha1 06/20 01:08 Drug: NS 0.9% 500 ml Route: IV; Rate: bolus; Site: right forearm; ha1 01:10 Drug: Kayexalate (polystyrene) 30 grams Route: PO; ha1 01:30 Follow up: Response: No adverse reaction ha1 03:30 Drug: Meropenem 1 grams Route: IV; Rate: per protocol; Site: right forearm; ha1 04:30 Follow up: Response: No adverse reaction; IV Status: Completed infusion; IV Intake: ha1 100ml Intake: 04:30 IV: 100ml; Total: 100ml. ha1 Outcome: 00:26 Decision to Hospitalize by Provider. tere 03:14 ER care complete, transfer ordered by . tere 07:12 AMA AMA form signed ha1 07:12 Condition: stable 07:12 Discharge instructions given to patient, family, Instructed on the need for transfer. 07:14 Patient left the ED. ha1 07:20 Patient left the ED. ss Signatures: Dispatcher [employer] EDIhsan Lozoya MD MD cha Ballard, Brenda RN MAGNO bb Rimma Bennett RN RN Esme Justice mw2 Morris Jacobson RN RN as6 Nadine Issa RN RN ha1 Lovely Coburn RN RN mb9 Meg Triana 1 Corrections: (The following items were deleted from the chart) 03:42 03:13 initiated a transfer with Nadine from [facility] Transfer Center [facility] 06:26 00:10 Tamayo cath inserted, using sterile technique, 16 Fr., by la, balloon inflated, to ha1 gravity drainage, urine specimen collected. ha1
--- NOTE | 2022-06-20 00:27 | EDPHYS ---
Physician Documentation [facility] Name: Ekta Allison Age: 76 yrs Sex: Female : 1945 Arrival Date: 06/19/2022 Time: 22:08 Bed 6 Private MD: ED Physician Ihsan Milligan HPI: 06/20 00:10 This 76 yrs old Female presents to ER via EMS with complaints of weakness and tere low blood pressure. 00:10 weak, low bp , stopped bp meds. Onset: The symptoms/episode began/occurred 3 day(s) tere ago. Severity of symptoms: At their worst the symptoms were mild in the emergency department the symptoms are unchanged. The patient has experienced similar episodes in the past, several times. Historical: - Allergies: 06/19 22:25 Iodinated Contrast Media - IV Dye; ha1 22:25 Vicodin; ha1 - PMHx: 22:25 High Cholesterol; Hypertension; Pacemaker; ha1 - Immunization history:: Adult Immunizations up to date. - Social history:: Smoking status: unknown. - Family history:: not pertinent. ROS: 06/20 00:10 Constitutional: Negative for fever, chills, and weight loss, Eyes: Negative for injury, tere pain, redness, and discharge, ENT: Negative for injury, pain, and discharge, Neck: Negative for injury, pain, and swelling, Cardiovascular: Negative for chest pain, palpitations, and edema, Respiratory: Negative for shortness of breath, cough, wheezing, and pleuritic chest pain, Back: Negative for injury and pain, : Negative for injury, bleeding, discharge, and swelling, MS/Extremity: Negative for injury and deformity, Skin: Negative for injury, rash, and discoloration, Neuro: Negative for headache, weakness, numbness, tingling, and seizure, Psych: Negative for depression, anxiety, suicide ideation, homicidal ideation, and hallucinations, Allergy/Immunology: Negative for hives, rash, and allergies, Endocrine: Negative for neck swelling, polydipsia, polyuria, polyphagia, and marked weight changes, Hematologic/Lymphatic: Negative for swollen nodes, abnormal bleeding, and unusual bruising. Abdomen/GI: Positive for colostomy. Neuro: Positive for weakness. Exam: 00:10 Constitutional: This is a well developed, well nourished patient who is awake, alert, tere and in no acute distress. Head/Face: Normocephalic, atraumatic. Eyes: Pupils equal round and reactive to light, extra-ocular motions intact. Lids and lashes normal. Conjunctiva and sclera are non-icteric and not injected. Cornea within normal limits. Periorbital areas with no swelling, redness, or edema. ENT: Nares patent. No nasal discharge, no septal abnormalities noted. Tympanic membranes are normal and external auditory canals are clear. Oropharynx with no redness, swelling, or masses, exudates, or evidence of obstruction, uvula midline. Mucous membranes moist. Neck: Trachea midline, no thyromegaly or masses palpated, and no cervical lymphadenopathy. Supple, full range of motion without nuchal rigidity, or vertebral point tenderness. No Meningismus. Chest/axilla: Normal chest wall appearance and motion. Nontender with no deformity. No lesions are appreciated. Cardiovascular: Regular rate and rhythm with a normal S1 and S2. No gallops, murmurs, or rubs. Normal PMI, no JVD. No pulse deficits. Respiratory: Lungs have equal breath sounds bilaterally, clear to auscultation and percussion. No rales, rhonchi or wheezes noted. No increased work of breathing, no retractions or nasal flaring. Abdomen/GI: Soft, non-tender, with normal bowel sounds. No distension or tympany. No guarding or rebound. No evidence of tenderness throughout. Back: No spinal tenderness. No costovertebral tenderness. Full range of motion. Female : Normal external genitalia. Skin: Warm, dry with normal turgor. Normal color with no rashes, no lesions, and no evidence of cellulitis. MS/ Extremity: Pulses equal, no cyanosis. Neurovascular intact. Full, normal range of motion. Neuro: Awake and alert, GCS 15, oriented to person, place, time, and situation. Cranial nerves II-XII grossly intact. Motor strength 5/5 in all extremities. Sensory grossly intact. Cerebellar exam normal. Normal gait. Psych: Awake, alert, with orientation to person, place and time. Behavior, mood, and affect are within normal limits. 00:10 ECG was reviewed by the Attending Physician. Vital Signs: 06/19 22:08 BP 113 / 46; Pulse 74; Resp 16 S; Pulse Ox 99% on R/A; 1 22:09 BP 113 / 46; Pulse 74; Resp 16 S; Temp 97.7(O); Pulse Ox 99% on R/A; Weight 50.35 kg; 1 Height 5 ft. (152.40 cm); 23:00 BP 108 / 58; Pulse 72; Resp 16 S; Pulse Ox 99% on R/A; [facility] 06/20 00:00 BP 115 / 40; Pulse 80; Resp 16 S; Pulse Ox 100% on R/A; 1 01:00 BP 106 / 44; Pulse 82; Resp 16; Pulse Ox 100% on R/A; 1 02:00 BP 114 / 45; Pulse 75; Resp 16 S; Pulse Ox 100% on R/A; 1 03:00 BP 104 / 55; Pulse 72; Resp 15 S; Pulse Ox 99% on R/A; 1 04:00 BP 123 / 54; Pulse 83; Resp 15 S; Pulse Ox 99% on R/A; 1 05:00 BP 129 / 56; Pulse 84; Resp 16 S; Pulse Ox 99% on R/A; ha1 06:00 BP 124 / 50; Pulse 80; Resp 16 S; Pulse Ox 99% on R/A; [facility] 06/19 22:09 Body Mass Index 21.68 (50.35 kg, 152.40 cm) [facility] MDM: 06/19 22:25 Patient medically screened. [facility] 06/20 00:14 Differential Diagnosis altered mental status. Data reviewed: vital signs, nurses notes, [facility] lab test result(s), EKG, radiologic studies, CT scan, plain films. Consideration of Admission/Observation Patient was admitted/placed on observation. Escalation of care including admission/observation considered. I considered the following discharge prescriptions or medication management in the emergency department Medications were administered in the Emergency Department. See MAR. Historians other than the Patient: Spouse/Significant Other: . Care significantly affected by the following chronic conditions: Hypertension, pacemaker, high cholesterol. 00:15 Test considered but Not performed: MRI: brain. CT: ct of head. [facility] 06/19 22:27 Order name: Basic Metabolic Panel; Complete Time: 00:17 [facility] 06/19 22:27 Order name: CBC with Diff [facility] 06/19 22:27 Order name: LFT's; Complete Time: 00:17 [facility] 06/19 22:27 Order name: Magnesium; Complete Time: 00:17 [facility] 06/19 22:27 Order name: NT PRO-BNP; Complete Time: 00:17 [facility] 06/19 22:27 Order name: PT-INR [facility] 06/19 22:27 Order name: Troponin HS; Complete Time: 00:17 [facility] 06/19 22:27 Order name: Blood Culture Adult (2) [facility] 06/19 22:27 Order name: Lactate w/ 2H reflex if indic.; Complete Time: 00:24 [facility] 06/19 22:27 Order name: Urine Microscopic Only; Complete Time: 03:07 [facility] 06/19 22:27 Order name: Lipase; Complete Time: 00:17 [facility] 06/19 22:27 Order name: SARS RAPID; Complete Time: 00:17 [facility] 06/19 23:36 Order name: Protime (+INR); Complete Time: 00:17 EDMN 06/19 23:40 Order name: CBC with Automated Diff; Complete Time: 00:17 EDMN 06/19 22:27 Order name: XRAY Chest (1 view) [facility] 06/19 22:27 Order name: EKG; Complete Time: 22:29 [facility] 06/19 22:27 Order name: Cardiac monitoring; Complete Time: 23:25 [facility] 06/19 22:27 Order name: EKG - Nurse/Tech; Complete Time: 23:34 [facility] 06/19 22:27 Order name: IV Saline Lock; Complete Time: 23:25 [facility] 06/19 22:27 Order name: Labs collected and sent; Complete Time: 23:25 [facility] 06/19 22:27 Order name: O2 Per Protocol; Complete Time: 23:25 [facility] 06/19 22:27 Order name: O2 Sat Monitoring; Complete Time: 23:25 [facility] 06/19 22:27 Order name: CT Chest Abdomen Pelvis W/O Contrast [facility] 06/20 02:39 Order name: Urine Culture EDMN 06/20 05:32 Order name: Lactate Sepsis 2 HR Follow-up; Complete Time: 06:20 EDMN 06/19 22:27 Order name: Urine Dipstick-Ancillary (obtain specimen); Complete Time: 02:11 [facility] 06/20 00:20 Order name: Tamayo; Complete Time: 01:25 [facility] EC:10 Rate is 67 beats/min. Rhythm is regular. QRS [place] is Normal. [place] interval is normal. QRS tere interval is normal. QT interval is normal. No Q waves. T waves are Normal. No ST changes noted. Clinical impression: NSR w/ Non-specific ST/T Changes and No evidence of ischemia. Interpreted by me. Reviewed by me. Administered Medications: 06/19 23:24 Drug: NS 0.9% 500 ml Route: IV; Rate: bolus; Site: right forearm; as6 23:28 Drug: NS 0.9% 1000 ml Route: IV; Rate: 125 ml/hr; Site: right forearm; ha1 06/20 01:08 Drug: NS 0.9% 500 ml Route: IV; Rate: bolus; Site: right forearm; ha1 01:10 Drug: Kayexalate (polystyrene) 30 grams Route: PO; ha1 01:30 Follow up: Response: No adverse reaction ha1 03:30 Drug: Meropenem 1 grams Route: IV; Rate: per protocol; Site: right forearm; ha1 04:30 Follow up: Response: No adverse reaction; IV Status: Completed infusion; IV Intake: ha1 100ml Disposition Summary: 06/20/22 07:14 Left Against Medical Advice Location: Home(06/20/22 07:14) ha1 Condition: Stable(06/20/22 07:14) ha1 Problem: new(06/20/22 07:19) tere Symptoms: are unchanged(06/20/22 07:19) tere Diagnosis - Acute kidney failure, unspecified(06/20/22 07:19) tere - Epigastric abdominal tenderness tere - Colostomy complication, unspecified tere - Hyperkalemia(06/20/22 07:19) tere - Hypotension, unspecified(06/20/22 07:19) tere - Abnormal findings on diagnostic imaging of other abdominal regions, including tere retroperitoneum - SUBCAPSULAR FLUID COLLECTION 6CM X 2 CM(06/20/22 07:19) Followup: tere - With: Private Physician - When: Upon discharge from the Emergency Department - Reason: Recheck today's complaints, Continuance of care, Re-evaluation by your physician Signatures: Dispatcher [employer] EDMS Ihsan Milligan MD MD cha Attema, Lee, KESHAC BAND SAWMILL OPERATOR-Cla1 Morris Jacobson RN RN as6 Issa, Nadine, RN RN ha1 Corrections: (The following items were deleted from the chart) 06/19 23:35 22:28 UA MICROSCOPIC+U.LAB.BRZ ordered. EDMS EDMS 06/20 03:10 00:26 Inpatient Admission tere tere 03:10 00:26 Tim Canales tere tere 03:10 00:26 Telemetry/MedSurg (Inpatient) tere tere 03:10 00:26 Fair tere tere 03:10 00:26 new tere tere 03: 00:26 have improved tere tere 03:10 00:26 Standard tere tere 03: 00:26 tere tere 03:10 00:26 Dehydration tere tere 03:10 00:26 Acute kidney failure, unspecified tere tere 03: 00:26 Hyperkalemia tere tere 03:10 00:26 Abnormal findings on diagnostic imaging of other abdominal regions, including tere retroperitoneum - slightly complex appearing hepatic subcapsular fluid collection6.2x 1.8 cm tere 07:14 03:14 merlyn mueller md tere tere 07:14 03:14 Other Acute Care Facility tere tere 07:14 03:14 Higher level of care tere tere 07:14 03:14 Fair tere tere 07:14 03:14 new tere tere 07:14 03:14 have improved tere tere 07:14 03:14 Abdominal pain, unspecified tere tere 07:14 03:14 Hypotension, unspecified - resolved tere tere 07:14 03:14 Hyperkalemia tere tere 07:14 03:14 Unspecified kidney failure tere tere 07:14 03:14 Encounter for attention to colostomy tere tere 07:14 03:14 Abnormal findings on diagnostic imaging of other abdominal regions, including tere retroperitoneum - 6.2 cm x 1.8 cm subcapsular fluid collection, along the right hepatic lobe tere
[2022-06-20] MEDS ORDERED: SOD POLYSTYREN SUL 15 GM/60 ML UCUP ONE (01:02)
[2022-06-20] MEDS ORDERED: NA CHLORIDE 0.9% 500 ML ONE (01:02)
[2022-06-20 02:35] LABS: Calcium Oxalate Crystals- Ur Few /HPF (None Seen); Urine Bacteria >50 /HPF (<20); Urine Mucus 1+ /HPF (None Seen); Urine RBC <5 /HPF (None Seen); Urine WBC Clump Few /HPF (None Seen); Urine Yeast with Hyphae Trace /HPF (None Seen)
[2022-06-20] MEDS ORDERED: Meropenem 1000 MG/VIAL IV ONE (03:32)
[2022-06-20] MEDS ORDERED: NA CHLORIDE 0.9% 100 ML ONE (03:33)
[2022-06-20 07:26] VITALS: TEMP 97.7
[2022-06-20 07:31] VITALS: O2SAT 99
[2022-06-20 07:35] VITALS: BP 124/50
--- NOTE | 2022-06-20 12:27 | RAD REPORT ---
EXAM DESCRIPTION: RAD - Chest Single View - 06/19/2022 10:58 pm CLINICAL HISTORY: The patient is 76 years old and is Female; COUGH TECHNIQUE: Frontal view of the chest. COMPARISON: No relevant prior studies available. FINDINGS: LUNGS: Minimal bibasilar opacities are noted. The lungs are otherwise clear. PLEURAL SPACE: Blunting of bilateral costophrenic angles is noted, right greater than left. No pneumothorax. HEART: Unremarkable. No cardiomegaly. MEDIASTINUM: Unremarkable. BONES/JOINTS: Unremarkable. TUBES, LINES AND DEVICES: A left-sided pacemaker is present. UPPER ABDOMEN: Unremarkable as visualized. IMPRESSION: Findings suggest bilateral pleural effusions, right greater than left with likely bibasi lar atelectasis. Electronically signed by: Juju Garber MD 06/19/2022 11:44 PM [employer] Due to temporary technical issues with the PACS/Fluency reporting system, reports are being signed by the in house radiologists without review as a courtesy to insure prompt reporting. The interpreting radiologist is fully responsible for the content of the report.
--- NOTE | 2022-06-20 12:41 | RAD REPORT ---
EXAM DESCRIPTION: CT - Chest Abd Pelvis Wo Con - 06/20/2022 6:52 am CLINICAL HISTORY: The patient is 76 years old and is Female; Cough TECHNIQUE: Axial computed tomography images of the chest, abdomen and pelvis without intravenous con trast. Sagittal and coronal reformatted images were created and reviewed. This CT exam was perfor med using one or more of the following dose reduction techniques: automated exposure control, adjus tment of the mA and/or kV according to patient size, and/or use of iterative reconstruction technique . COMPARISON: No relevant prior studies available. FINDINGS: CHEST: LUNGS: Minimal bibasilar atelectasis is noted. The lungs are otherwise clear. There is no lobar consolidation or mass. PLEURAL SPACE: A moderate sized right pleural effusion is present. A trace left pleural effusion is noted. No pneumothorax. HEART: No cardiomegaly. No pericardial effusion. MEDIASTINUM: A small hiatal hernia is present. ABDOMEN: LIVER: A 6.2 x 1.8 cm subcapsular fluid collection along the right hepatic lobe is present. Unde rlying this collection is an area of linear low attenuation within the right hepatic lobe. The liver is otherwise homogeneous. GALLBLADDER AND BILE DUCTS: Surgical clips are present in the right upper quadrant, consistent w ith previous cholecystectomy. PANCREAS: Unremarkable. No ductal dilation. SPLEEN: A few splenic granuloma are present. ADRENALS: Unremarkable. No mass. KIDNEYS AND URETERS: No obstructing stones. No hydronephrosis. No perinephric fluid. STOMACH AND BOWEL: Postsurgical change of the bowel is present at multiple levels. The small bow el and colon relatively normal in caliber. A right lower quadrant colostomy is present. A few loops o f bowel are noted adherent to the bowel wall. There is no bowel obstruction. PELVIS: APPENDIX: No findings to suggest acute appendicitis. BLADDER: The bladder is incompletely distended. No stones. REPRODUCTIVE: The patient is status post hysterectomy. CHEST, ABDOMEN and PELVIS: INTRAPERITONEAL SPACE: Unremarkable. No significant fluid collection. No free air. BONES/JOINTS: The bones are osteopenic. Mild exaggeration of thoracic kyphosis and lumbar lordos is is noted. There is no acute fracture. SOFT TISSUES: Mild diastases of the anterior abdominal wall is noted. VASCULATURE: Atherosclerosis of the vasculature is present. The vessels are normal in caliber. No aortic aneurysm. LYMPH NODES: Unremarkable. No enlarged lymph nodes. TUBES, LINES AND DEVICES: A left-sided pacemaker is present with the leads in the right atrial a ppendage and right ventricle. IMPRESSION: 1. Bilateral pleural effusions, right greater than left with associated bibasilar atel ectasis. 2. Slightly complex appearing hepatic subcapsular fluid collection with underlying ill-defined area of low attenuation within the right hepatic lobe. Further evaluation with a contrasted CT of the abd omen and pelvis is recommended. 3. Postoperative change of the bowel without evidence of obstruction. Electronically signed by: Juju Garber MD 06/19/2022 11:50 PM CASH POSTING REPRESENTATIVE Due to temporary technical issues with the PACS/Fluency reporting system, reports are being signed by the in house radiologists without review as a courtesy to insure prompt reporting. The interpreting radiologist is fully responsible for the content of the report.
== END 2022-06-20 07:20 | disposition left against medical advice (07) ==
LOC: ER 21:53
DX: N17.9 Acute kidney failure, unspecified (principal); R10.816 Epigastric abdominal tenderness; K94.00 Colostomy complication, unspecified; E87.5 Hyperkalemia; I95.9 Hypotension, unspecified; R93.5 Abnormal findings on diagnostic imaging of other abdominal regions, including retroperitoneum; I10 Essential (primary) hypertension; E78.00 Pure hypercholesterolemia, unspecified; Z20.822 Contact with and (suspected) exposure to COVID-19; Z95.0 Presence of cardiac pacemaker; Z88.5 Allergy status to narcotic agent; Z91.041 Radiographic dye allergy status
CPT/HCPCS: 93005; 87040 ×2; 87088; 85025; 87086; 80048; 36415 ×2; 83735; 85610; 80076; 83605 ×2; 81015; 84484; 83690; 83880; 71250; 74176; 71045; 87811; J2185; J7040 ×2; J7030

== ENCOUNTER 2023-11-02 08:49 | Observation (INO) | payer OTHER ==
--- NOTE | 2023-11-02 09:42 | RAD REPORT ---
EXAM DESCRIPTION: RADChest Single View11/02/2023 9:28 am CLINICAL HISTORY: CHEST PAIN COMPARISON: Chest Pa And Lat (2 Views) dated 09/14/2023; Chest Single View dated 06/19/2022; Chest Singl e View dated 07/22/2021; Chest Single View dated 03/07/2021 TECHNIQUE: Portable AP view of the chest. FINDINGS: The lungs are clear. Left chest wall pacer in place. No pneumothorax or effusion. The car diomediastinal contours are unremarkable. IMPRESSION: No acute cardiopulmonary process.
--- NOTE | 2023-11-02 09:57 | RAD REPORT ---
EXAM DESCRIPTION: CT - Head Brain Wo Cont - 11/02/2023 9:31 am CLINICAL HISTORY: DIZZINESS COMPARISON: Head Brain Wo Cont dated 07/08/2020; Head Brain Wo Cont dated 12/11/2019 TECHNIQUE: Noncontrast head CT images were obtained without IV contrast. Multiplanar reformats were generated and reviewed. All CT scans are performed using dose optimization technique as appropriate and may include automated exposure control or mA/KV adjustment according to patient size. FINDINGS: No intracranial hemorrhage, mass, or edema. Midline structures are unremarkable. Normal ventricular caliber for age. Cruz-white matter differentiation is preserved, without evidence of acute infarct. No abnormal extra- axial fluid collections. Mastoid air cells and visualized portions of the paranasal sinuses are clear. No acute bony findings. IMPRESSION: No evidence of an acute intracranial process.
[2023-11-02 10:16] LABS: Absolute Lymphocytes (CBC) 1.4 K/uL (0.7-4.9); Absolute Monocytes 0.6 K/uL (0.1-1.3); Absolute Neutrophil 7.4 K/uL (1.8-8.0); Basophils % 0.3 % (0-1.3); Eosinophils % 0.3 % (0-4.4); Hematocrit 40.6 % (36.0-45.0); Hemoglobin 13.5 g/dL (12.0-15.0); Lymphocytes % 15.1 % (15.3-44.8); MCH 32.4 pg (27.0-35.0); MCHC 33.4 g/dL (32.0-36.0); MCV 97.1 fL (80-100); MPV 9.3 fL (7.6-11.3); Monocytes % 6.6 % (3.3-12.3); Neutrophils % 77.7 % (41.7-73.7); Platelets 169 thou/uL (152-406); RBC Red Blood Cell Count 4.18 M/uL (3.86-4.86); Red Cell Distribution Width 13.7 % (12.1-15.2)
[2023-11-02 10:21] LABS: PT Prothrombin Time 10.9 SECONDS (9.4-12.5); Protime INR 0.99
[2023-11-02 10:35] LABS: Anion Gap 7.1 mEq/L (5.0-15.0); Potassium 4.1 mEq/L (3.5-5.1); Troponin High Sensitivity 6.8 pg/mL (<58.9)
--- NOTE | 2023-11-02 10:57 | ER ---
Nurse's Notes [facility] Name: Ekta Allison Age: 78 yrs Sex: Female : 1945 Arrival Date: 11/02/2023 Time: 08:49 Bed 8 Private MD: Diagnosis: Dizziness and giddiness;Essential (primary) hypertension Presentation: 11/01 09:15 Coronavirus screen: At this time, the client does not indicate any symptoms associated ap3 with coronavirus-19. Ebola Screen: No symptoms or risks identified at this time. Initial Sepsis Screen: Does the patient meet any 2 criteria? No. Patient's initial sepsis screen is negative. Does the patient have a suspected source of infection? No. Patient's initial sepsis screen is negative. Risk Assessment: Do you want to hurt yourself or someone else? Patient reports no desire to harm self or others. Onset of symptoms was November 02, 2023. 09:15 Method Of Arrival: [facility]: [facility] ap3 09:15 Acuity: VINEET 2 ap3 09:15 Chief complaint: Patient states: She woke up dizzy. It got worse, and she got sweaty. ap3 and she had pain between her shoulder blades. patient states her symptoms have since improved. Triage Assessment: 09:24 General: Appears comfortable, Behavior is calm, cooperative, appropriate for age. Pain: ap3 Complains of pain in chest Pain currently is 0 out of 10 on a pain scale. Neuro: Level of Consciousness is awake, alert, obeys commands, Oriented to person, place, time, situation. Neuro: Reports dizziness. Cardiovascular: Patient's skin is warm and dry. Respiratory: Airway is patent Respiratory effort is even, unlabored, Respiratory pattern is regular, symmetrical. Derm: Skin is diaphoretic. Historical: - Allergies: 09:13 Iodinated Contrast Media - IV Dye; ap3 09:13 Vicodin; ap3 - PMHx: 09:13 High Cholesterol; Hypertension; Pacemaker; ap3 - Immunization history:: Adult Immunizations up to date. - Infectious Disease History:: Denies. - Social history:: Smoking status: unknown. Screenin:19 Abuse screen: Denies threats or abuse. Nutritional screening: No deficits noted. ap3 Tuberculosis screening: No symptoms or risk factors identified. 12:00 [facility] ED Fall Risk Assessment (Adult) History of falling in the last 3 months, cm10 including since admission No falls in past 3 months (0 pts) Confusion or Disorientation No (0 pts) Intoxicated or Sedated No (0 pts) Impaired Gait Yes (1 pt) Mobility Assist Device Used Yes (1 pt) Altered Elimination No (0 pt) Score/Fall Risk Level 0 - 2 = Low Risk Oriented to surroundings, Maintained a safe environment, Hourly rounding (assess needs \T\ fall precautionary measures) done. Assessment: 12:00 Reassessment: Patient appears in no apparent distress at this time. No changes from cm10 previously documented assessment. Patient and/or family updated on plan of care and expected duration. Pain level reassessed. Patient is alert, oriented x 3, equal unlabored respirations, skin warm/dry/pink. Assumed care of patient at this time. Pt resting on stretcher, updated on plan of care. Call light in reach. 13:10 Reassessment: Pt assisted to restroom at this time. cm10 15:09 Reassessment: Pt provided with food at this time. cm10 17:00 General: Nurse needing more time to bring patient up due to being in a rapid response.. cm10 17:21 General: Nurse asking for more time to bring patient up at this time./. cm10 Vital Signs: 09:14 BP 213 / 77; Pulse 62; Pulse Ox 98% on R/A; ap3 10:07 BP 202 / 72; Pulse 61; Resp 18; Pulse Ox 98% on R/A; ap3 11:18 BP 171 / 66; Pulse 60; Resp 18 S; Pulse Ox 98% on R/A; aa5 12:00 BP 171 / 65; Pulse 59; Resp 18; Pulse Ox 98% on R/A; cm10 12:30 BP 168 / 60; Pulse 62; Resp 16; Pulse Ox 98% ; cm10 13:00 BP 198 / 71; cm10 13:30 BP 156 / 72; Pulse 60; Resp 16; Pulse Ox 100% ; cm10 14:00 BP 133 / 63; Pulse 59; Resp 16; Pulse Ox 100% ; cm10 14:30 BP 131 / 60; Pulse 59; Resp 16; Pulse Ox 99% ; cm10 15:00 BP 138 / 57; Pulse 60; Resp 16; Pulse Ox 100% on R/A; cm10 15:30 BP 133 / 63; Pulse 62; Resp 16; Pulse Ox 99% on R/A; cm10 16:00 BP 134 / 53; Pulse 63; Resp 16; Pulse Ox 100% on R/A; cm10 17:30 BP 128 / 55; Pulse 62; Resp 16; Pulse Ox 98% ; cm10 ED Course: 09:04 Patient arrived in ED. jr12 09:08 Howard Sorto MD is Attending Physician. ec2 09:12 Naila Francis, MAGNO is Primary Nurse. ap3 09:15 Triage completed. ap3 09:26 Arm band placed on left wrist. ap3 09:26 Patient has correct armband on for positive identification. Bed in low position. Call ap3 light in reach. Side rails up X2. Provided Education on: call light and fall risk education. 09:29 XRAY Chest (1 view) In Process Unspecified. EDMS 09:32 CT Head Brain wo Cont In Process Unspecified. EDMS 09:45 Client placed on continuous cardiac and pulse oximetry monitoring. NIBP monitoring ap3 applied. art glass designer on. Pulse ox on. NIBP on. 09:45 EKG done, by ED staff, reviewed by Howard Sorto MD. ap3 10:07 Initial lab(s) drawn, by tn, sent to lab. Inserted saline lock: 24 gauge in right upper ap3 arm, using aseptic technique. Blood collected. 10:56 Arnulfo Hernandez MD is Hospitalizing Provider. ec2 13:14 Urinalysis W/Microscopic Sent. al5 16:28 Report faxed to 2nd floor at 1625. [facility] confirmed that fax was received at 1627. cm10 17:58 No provider procedures requiring assistance completed. Patient admitted, IV remains in cm10 place. Administered Medications: 11:33 Not Given (Physician Discretion): mg IV at bolus once hb Medication: 09:27 VIS not applicable for this client. ap3 Outcome: 10:56 Decision to Hospitalize by Provider. ec2 17:57 Admitted to Med/surg accompanied by tech, via wheelchair, room 222, cm10 17:57 Condition: good 17:57 Instructed on the need for admit, 18:02 Patient left the ED. cm10 Signatures: Dispatcher [employer] Margarita Crespo RN RN aa5 Naila Francis RN RN ap3 Anabel Ahumada RN RN cm10 Howard Sorto MD MD ec2 Kiarra Kelley [facility] Naila Su RN RN al5 Keke Dill RN Corrections: (The following items were deleted from the chart) 11:20 11:18 BP 166 / 107; Pulse 60bpm; Resp 18bpm; Spontaneous; Pulse Ox 98% RA; aa5 aa5 15:10 12:00 Reassessment: Assumed care of patient at this time. Pt resting on stretcher, cm10 updated on plan of care. Call light in reach. cm10
--- NOTE | 2023-11-02 10:57 | EDPHYS ---
Physician Documentation [facility] Name: Ekta Allison Age: 78 yrs Sex: Female : 1945 Arrival Date: 11/02/2023 Time: 08:49 Bed 8 Private MD: ED Physician Howard Sorto HPI: 11/01 09:09 This 78 yrs old Female presents to ER via Unassigned with complaints of back ec2 pain, dizziness. 09:09 Patient arrives today for evaluation of back pain and dizziness. States that earlier ec2 this morning approximately 5 hours ago she was having some neck and back pain, states that she also felt some dizziness, states that she did not have any falls injuries or trauma. States that symptoms have since resolved. Patient reports no difficulty breathing, reports recent diagnosis of CHF, started on Lasix which improved her lower extremity edema. Patient reports otherwise history of CAD as well.. Historical: - Allergies: 09:13 Iodinated Contrast Media - IV Dye; ap3 09:13 Vicodin; ap3 - PMHx: 09:13 High Cholesterol; Hypertension; Pacemaker; ap3 - Immunization history:: Adult Immunizations up to date. - Infectious Disease History:: Denies. - Social history:: Smoking status: unknown. ROS: 09:09 Constitutional: as per hpi ec2 Exam: 09:09 Constitutional: GEN: NAD Head: atraumatic Eyes: EOMI Ears: External ears are ec2 normal. CV: regular rate LUNGS: no respiratory distress ABD: non-distended SKIN: no evidence of rashes MSK: no evidence of trauma NEURO: moves all extremities equally, cranial nerves II through XII intact, strength intact upper extremity, no evidence of pronator drift. Vital Signs: 09:14 BP 213 / 77; Pulse 62; Pulse Ox 98% on R/A; ap3 10:07 BP 202 / 72; Pulse 61; Resp 18; Pulse Ox 98% on R/A; ap3 11:18 BP 171 / 66; Pulse 60; Resp 18 S; Pulse Ox 98% on R/A; aa5 12:00 BP 171 / 65; Pulse 59; Resp 18; Pulse Ox 98% on R/A; cm10 12:30 BP 168 / 60; Pulse 62; Resp 16; Pulse Ox 98% ; cm10 13:00 BP 198 / 71; cm10 13:30 BP 156 / 72; Pulse 60; Resp 16; Pulse Ox 100% ; cm10 14:00 BP 133 / 63; Pulse 59; Resp 16; Pulse Ox 100% ; cm10 14:30 BP 131 / 60; Pulse 59; Resp 16; Pulse Ox 99% ; cm10 15:00 BP 138 / 57; Pulse 60; Resp 16; Pulse Ox 100% on R/A; cm10 15:30 BP 133 / 63; Pulse 62; Resp 16; Pulse Ox 99% on R/A; cm10 16:00 BP 134 / 53; Pulse 63; Resp 16; Pulse Ox 100% on R/A; cm10 17:30 BP 128 / 55; Pulse 62; Resp 16; Pulse Ox 98% ; cm10 MDM: 09:09 Patient medically screened. ec2 09:09 Data reviewed: vital signs. ED course: Patient arrives today for evaluation back pain ec2 and dizziness. Examination markable for neuro intact and evertors otherwise no acute distress with a reassuring examination. Will obtain lab work, EKG, CT scan of the head as well as chest x-ray. Differential diagnosis includes electrolyte disturbances, ACS, PE, TIA . 09:45 ED course: EKG independently reviewed and interpreted by me, shows normal sinus rhythm, ec2 rate of 62, no acute ST segment elevations, intervals are concerning.. 09:59 ED course: Chest x-ray independently reviewed and interpreted by me, shows no acute ec2 intrathoracic process. CT scan of the head shows no acute intracranial process. . 10:47 ED course: Metabolic profile shows appropriate electrolytes and renal function. ec2 Troponin is within normal range, BNP within normal ranges. CBC is reassuring. On reassessment patient remains well-appearing in no acute distress. . 10:55 ED course: Patient now with recurrence of dizziness, will give the patient 10 mg of IV ec2 labetalol. Patient without any other symptoms, no chest pain, no back pain at this time. Further discussion with family, now indicates that she has been having his bouts of dizziness for at least several weeks. No falls injuries, dizziness and instability on her feet seems to be worsened. Will admit for further stroke evaluation. Patient is outside of any actionable window given the duration of symptoms and intermittent.. 10:59 ED course: MDM: Differential diagnosis as documented above in ED course; All lab tests ec2 ordered and reviewed as documented above; Independent interpretation of tests: EKG as above; imaging as above; History gathered from independent historian: Yes; family; Discuss inpatient hospitalization: Yes; I discussed the case with: Hospitalist . 11/01 09:08 Order name: Basic Metabolic Panel; Complete Time: 10:46 ec2 11/01 09:08 Order name: CBC with Diff; Complete Time: 10:30 ec2 11/01 09:08 Order name: NT PRO-BNP; Complete Time: 10:46 ec2 11/01 09:08 Order name: PT-INR; Complete Time: 10:30 ec2 11/01 09:08 Order name: Troponin HS; Complete Time: 10:46 ec2 11/01 11:32 Order name: Urinalysis W/Microscopic; Complete Time: 13:46 la1 11/01 12:04 Order name: Troponin High Sensitivity EDMS 11/01 12:04 Order name: Troponin High Sensitivity EDMS 11/01 12:04 Order name: Troponin High Sensitivity EDMS 11/01 09:08 Order name: XRAY Chest (1 view); Complete Time: 09:59 ec2 11/01 09:08 Order name: CT Head Brain wo Cont; Complete Time: 09:59 ec2 11/01 09:08 Order name: Cardiac monitoring; Complete Time: 09:45 ec2 11/01 09:08 Order name: EKG - Nurse/Tech; Complete Time: 09:45 ec2 11/01 09:08 Order name: IV Saline Lock; Complete Time: 10:07 ec2 11/01 09:08 Order name: Labs collected and sent; Complete Time: 10:07 ec2 11/01 09:08 Order name: O2 Per Protocol; Complete Time: 09:27 ec2 11/01 09:08 Order name: O2 Sat Monitoring; Complete Time: 09:27 ec2 Administered Medications: 11:33 Not Given (Physician Discretion): [id number] mg IV at bolus once hb Disposition Summary: 11/02/23 10:56 Hospitalization Ordered Notes: Hospitalization Status: Inpatient Admission ec2 Provider: Arnulfo Hernandez ec2 Location: Telemetry/MedSurg (Inpatient) ec2 Condition: Stable ec2 Problem: new ec2 Symptoms: are unchanged ec2 Bed/Room Type: Standard ec2 Room Assignment: [facility](11/02/23 16:19) [id number] Diagnosis - Dizziness and giddiness ec2 - Essential (primary) hypertension ec2 Forms: - Medication Reconciliation Form ec2 - SBAR form ec2 - Leadership Thank You Letter ec2 Signatures: Dispatcher [employer] EDMS Chino Cuellar, RESEARCH LEADER-C RESEARCH LEADER-Cla1 Naila Francis RN RN ap3 Howard Sorto MD MD ec2 Kiarra Kelley jr12 Keke Dill RN Corrections: (The following items were deleted from the chart) 09:09 09:09 BASIC METABOLIC PANEL+C.LAB.BRZ ordered. EDMS EDMS 09:09 09:09 CBC+H.LAB.BRZ ordered. EDMS EDMS 09:09 09:09 PROBNP+C.LAB.BRZ ordered. EDMS EDMS 09:09 09:09 PROTIME (+INR)+COAG.LAB.BRZ ordered. EDMS EDMS 09:09 09:09 Troponin High Sensitivity+C.LAB.BRZ ordered. EDMS EDMS 09:09 09:09 Chest Single View+RAD.RAD.BRZ ordered. EDMS EDMS 09:09 09:09 Head Brain Wo Cont+CT.RAD.BRZ ordered. EDMS EDMS 09:09 09:09 Head Angio+CT.RAD.BRZ ordered. EDMS EDMS 09:09 09:09 Neck Angio+CT.RAD.BRZ ordered. EDMS EDMS 09:42 09:09 ED course: Patient arrives today for evaluation back pain and dizziness. ec2 Examination markable for neuro intact and evertors otherwise no acute distress with a reassuring examination. Will obtain lab work, EKG, CT scan of the head as well as chest x-ray. Differential diagnosis includes electrolyte disturbances, critical stenosis, ACS, anemia. . ec2 11:00 11:00 Brain Wo Cont+MRI.RAD.BRZ ordered. EDMS EDMS 11:33 11:33 Urinalysis W/Microscopic+U.LAB.BRZ ordered. EDMS EDMS 16:19 10:56 ec2 jr12
[2023-11-02 13:27] LABS: Specific Gravity 1.008 (1.005-1.030); Sqamous Epithelial <5 /HPF (None Seen); Urine Bacteria None Seen /HPF (<20); Urine Bilirubin NEGATIVE (Negative); Urine Blood Negative (Negative); Urine Clarity Turbid (Clear); Urine Color Colorless (Yellow); Urine Culture Reflex Order NOT NEEDED; Urine Glucose NEGATIVE (Negative); Urine Ketones NEGATIVE (Negative); Urine Micro Reflex YN NO BILL MICROSCOPIC; Urine Nitrite 2+ (Negative); Urine Protein NEGATIVE (Negative); Urine RBC None Seen /HPF (None Seen); Urine Urobilinogen Normal (Normal)
--- NOTE | 2023-11-02 16:03 | P.HP ---
Certification for Inpatient Patient admitted to: Observation With expected LOS: <2 Midnights Patient will require the following post-hospital care: None Practitioner: I am a practitioner with admitting privileges, knowledge of patient current condition, hospital course, and medical plan of care. Services: Services provided to patient in accordance with Admission requirements found in Title 42 Section 412.3 of the Code of Federal Regulations Patient History Date of Service: 11/02/23 Reason for admission: Dizziness, ACS R/O History of Present Illness: 78-year-old female with history of hypertension, hyperlipidemia, pacemaker in place presents emerged part with chief complaint of dizziness, back pain, vomiting. She reports she deals with similar dizziness episodes relatively often but this morning she woke up dizzy and then began having pain in her back between her shoulder blades followed by diaphoresis and an episode of vomiting. She reports that she had a recent stress test and echocardiogram with her house player Dr. You a week ago and is waiting on the results. She was evaluated in the emergency department her labs are significant for initial high sensitive troponin of 6.[address] B[address] head negative for acute findings, chest x-ray was unremarkable. ED provider wishes to admit under observation for dizziness, ACS rule out. Unable to obtain MRI given presence of pacemaker, also allergic to IV contrast. Allergies codeine Allergy (Verified 07/19/21 13:48) Itching hydrocodone [From Vicodin] Allergy (Verified 07/19/21 13:48) Nausea/Vomiting Iodinated Contrast- Oral a Allergy (Uncoded 03/02/21 09:46) Anaphylaxis Home Medications: Amlodipine Besylate/Valsartan [Amlodipine-Valsartan 5-160 mg] 1 tab PO DAILY 08/06/19 Levothyroxine [Synthroid*] 25 mg PO DAILY 08/06/19 Aspirin [Wanda Chewable Aspirin] 81 mg PO DAILY 07/30/20 Primidone 50 mg PO BID 03/01/21 Pantoprazole [Protonix Tab*] 40 mg PO DAILY #30 tab 03/08/21 Meloxicam 1 tab PO PRN 07/19/21 Acetaminophen [Tylenol Extra Strength] 500 mg PO Q4H PRN 07/28/21 Gabapentin 300 mg PO BID 07/28/21 Lactose-Reduced Food [Ensure High Protein] 237 ml PO BID 07/28/21 Ondansetron [Zofran (Odt)*] 4 mg PO Q4H PRN 07/28/21 Calcium Carbonate/Vitamin D3 [Oscal 500 + Vit D 200 Iu Tab*] 1 tab PO BID #60 tab 08/10/21 Cranberry Fruit Extract 400 mg PO BID #60 cap 08/10/21 Magnesium Oxide [Mag 0X*] 400 mg PO BID #60 tab 08/10/21 traMADol HCL [Ultram*] 50 mg PO Q4H PRN #60 tab 08/10/21 - Past Medical/Surgical History Diabetic: No -: Hypertension -: Pacemaker (2009) -: Cardiac Dysrhythmia -: Cataract -: Hypothyroidism -: GERD -: Shoulder Tendinitis(gets shots) -: Colon cancer -: Explore Lap; organs -: Hernia Repair -: Esophageal varices Psychosocial/ Personal History: Lives at home with family - Family History Father -: Cancer Notes: - Lung Cancer Mother -: Heart disease Notes: - Stroke - Social History Alcohol use: No CD- Drugs: Yes Caffeine use: No Place of Residence: Home Review of Systems 10-point ROS is otherwise unremarkable Gastrointestinal: Nausea, Vomiting Musculoskeletal: Back Pain Neurological: Other (dizziness) Physical Examination - Physical Exam General: Alert, In no apparent distress, Oriented x3 HEENT: Atraumatic, PERRLA, EOMI Neck: Supple, 2+ carotid pulse no bruit, No LAD, Without JVD or thyroid abnormality Respiratory: Clear to auscultation bilaterally, Normal air movement Cardiovascular: Regular rate/rhythm, Normal S1 S2 Gastrointestinal: Normal bowel sounds, No tenderness Musculoskeletal: No tenderness Integumentary: No rashes Neurological: Normal gait, Normal speech, Normal strength at 5/5 x4 extr, Normal tone - Studies Laboratory Data (last 24 hrs) 11/02/23 11/02/23 11/02/23 10:03 10:03 10:03 WBC 9.50 Hgb 13.5 Hct 40.6 Plt Count 169 PT 10.9 INR 0.99 Sodium 139 Potassium 4.1 BUN 26 H Creatinine 0.99 Glucose 101 Assessment and Plan - Plan Assessment: Dizziness, vomiting Upper back pain/ACS rule out Hypertension Hyperlipidemia Plan: Dizziness, vomiting Upper back pain/ACS rule out Dizziness symptoms improved Continue gentle IV fluids, will obtain orthostatic vital signs As needed meclizine, CT head negative for acute findings Unable to obtain MRI given presence of pacemaker, also cannot have CT angios given iodine allergy Trend troponins, monitor on telemetry Had recent stress test/echocardiogram, cardiology consulted as is mutual patient has not received results yet Hypertension Hyperlipidemia Continue home medications once verified DVT PPX: Lovenox Code status: Full Discharge Plan: Home - Advance Directives Does patient have a Living Will: No Does patient have a Durable POA for Healthcare: No - Code Status/Comfort Care Code Status Assessed: Yes (Full code) Critical Care: No Time Spent Managing Pts Care (In Minutes): 70
[2023-11-02] MEDS ORDERED: MELOXICAM 7.5 MG TAB PO PRN (17:00)
[2023-11-02] MEDS ORDERED: ACETAMINOPHEN 500 MG TAB PO PRN ×2 (18:26→20:30)
--- NOTE | 2023-11-02 18:44 | CON ---
Date of Consultation: 11/02/2023 Reason For Consultation: Dizziness. History Of Present Illness: 78-year-old female, well known to me. She has past medical history of h ypertension, dyslipidemia, and she has a permanent pacemaker in place, presented with dizziness and v omiting. Dizziness, she describes it as room spinning around. When she stands up, she feels that rodolfo vann is going to fall down and she feels nauseated and vomits as well. Denies having any chest pain, sh ortness of breath and that she gets the symptoms while lying down as well and changing positions. Rodolfo vann had this similar problem in the past and ENT physician treated her successfully. Past Medical History: As outlined above in the HPI. Medications: Refer to reconciliation sheet for detailed list. Allergies: HYDROCODONE AND CODEINE. Family History: No premature coronary artery disease or cancer. Past Surgical History: Pacemaker implantation. Social History: She does not smoke or drink. Does not use any drugs. Review of Systems: All systems reviewed and they were negative except as mentioned in the HPI. Physical Examination: Vital Signs: Reviewed. Head and Neck: Pupils are equal, reactive to light. Intact eye movements. No JVD. No cervical lym phadenopathy. Neck is supple. Thyroid is not enlarged. Lungs: Clear to auscultation bilaterally. No rhonchi, wheezing, or crackles. No accessory muscle u se. Heart: Regular rate and rhythm. No extra sounds. Abdomen: Soft, nontender. Bowel sounds positive. No organomegaly. No masses or hernia. No rigidi ty or rebound. Extremities: No edema, clubbing, or cyanosis. Intact pulses. Skin: No rash. No nodule. Neurologic: Alert, awake, oriented x3. No acute focal deficits appreciated. Investigations: BUN 26, creatinine 0.99, first troponin 6.8, NT-proBNP 202, and the hemoglobin is 15 .5. Assessment And Recommendations: 1.Dizziness, it is vertigo. This is not a cardiovascular issue. Recommend ENT evaluation and also possible Neurology evaluation to rule out a central nervous system as a cause of that. 2.Hypertension. Blood pressure is acceptable. Continue home medications. 3.Dyslipidemia. Continue current therapy. 4.Pacemaker in place. On telemetry, pacemaker is functioning very well. Cardiology will sign off. SR/MODL Voice ID: [id number] Report ID: [id number]
[2023-11-02 18:49] VITALS: O2SAT 98
[2023-11-02] MEDS: ENOXAPARIN 40 MG/0.4 ML SQ SCH (20:00)
[2023-11-02 20:13] VITALS: BMI 21.5
[2023-11-02] MEDS ORDERED: TRAMADOL HCL 50 MG TAB PO PRN (20:30)
[2023-11-02] MEDS: ENSURE CLEAR 200 ML CAN PO SCH (21:00)
[2023-11-02] MEDS: PRIMIDONE 50 MG TAB PO SCH (22:45)
[2023-11-03] MEDS: ONDANSETRON 4 MG (ODT) TAB PO PRN (05:05)
[2023-11-03 07:51] LABS: Absolute Basophils 0.1 K/uL (0-0.5); Absolute Eosinophils 0.1 K/uL (0-0.5); Absolute Lymphocytes (CBC) 2.1 K/uL (0.7-4.9); Absolute Monocytes 0.6 K/uL (0.1-1.3); Absolute Neutrophil 7.8 K/uL (1.8-8.0); Basophils % 0.8 % (0-1.3); Eosinophils % 0.7 % (0-4.4); Hematocrit 37.8 % (36.0-45.0); Hemoglobin 12.9 g/dL (12.0-15.0); Lymphocytes % 19.7 % (15.3-44.8); MCH 32.8 pg (27.0-35.0); MCHC 34.1 g/dL (32.0-36.0); MCV 96.4 fL (80-100); MPV 9.8 fL (7.6-11.3); Monocytes % 5.9 % (3.3-12.3); Neutrophils % 72.9 % (41.7-73.7); Nucleated Red Blood Cells % 0.2 % (0-0); Platelets 146 thou/uL (152-406); RBC Red Blood Cell Count 3.92 M/uL (3.86-4.86)
[2023-11-03 08:24] LABS: Anion Gap 8.4 mEq/L (5.0-15.0); Potassium 4.4 mEq/L (3.5-5.1); Thyroid Stimulating Hormone 2.17 uIU/mL (0.358-3.740)
[2023-11-03 08:50] LABS: Blood Morphology Comment NOT SEEN (NOT SEEN); Platelet Estimate ADEQ; White Blood Cell Scan OK (OK)
[2023-11-03 09:01] VITALS: BP 145/58; TEMP 98
--- NOTE | 2023-11-03 09:06 | P.DS ---
Admission Date: 11/02/23 Discharge Date: 11/03/23 Disposition: ROUTINE DISCHARGE Discharge Condition: GOOD Reason for Admission: Dizziness, ACS R/O Brief History of Present Illness: 78-year-old female with history of hypertension, hyperlipidemia, pacemaker in place presents emerged part with chief complaint of dizziness, back pain, vomiting. She reports she deals with similar dizziness episodes relatively often but this morning she woke up dizzy and then began having pain in her back between her shoulder blades followed by diaphoresis and an episode of vomiting. She reports that she had a recent stress test and echocardiogram with her barrel rifler operator Dr. You a week ago and is waiting on the results. She was evaluated in the emergency department her labs are significant for initial high sensitive troponin of 6.[address] BNP [address] head negative for acute findings, chest x-ray was unremarkable. ED provider wishes to admit under observation for dizziness, ACS rule out. Unable to obtain MRI given presence of pacemaker, also allergic to IV contrast. Hospital Course: Assessment: Dizziness, vomiting-BPPV Upper back pain/ACS rule out Hypertension Hyperlipidemia Patient was admitted to the hospital for dizziness, vomiting, and upper mid back pain. Her dizziness and vomiting were consistent with BPPV which she has experienced in the past, upper mid back pain has resolved and ACS was ruled out as she had 3 negative troponins throughout the evening, she is also seen by her barrel rifler operator who believes that her symptoms are all from BPPV. River-Hallpike was performed and right ear was identified as the likely contributor to her vertigo. Right-sided Mila maneuver was performed with resolution of her symptoms, she is having much better at this time. She stable for discharge to follow-up with her primary care doctor, cardiology and ENT. Please continue your home medications as previously prescribed Observe fall precautions especially when feeling dizzy Please follow-up with your primary care doctor, barrel rifler operator and ENT Here is a video on youtube of how to do the mila [email or web address]/watch?[email or web address] Your right ear seemed to be the one effected, try right sided first but may try left side if ineffective. You can also google "mila maneuver" and find more information and videos to help you try this at home Vital Signs/Physical Exam: Temp Pulse Resp BP Pulse Ox 98.0 F 61 14 145/58 H 99 11/03/23 08:00 11/03/23 08:00 11/03/23 08:00 11/03/23 08:00 11/03/23 08:00 General: Alert, In no apparent distress, Oriented x3 HEENT: Atraumatic, PERRLA Neck: Supple, JVD not distended Respiratory: Clear to auscultation bilaterally, Normal air movement Cardiovascular: Regular rate/rhythm, Normal S1 S2 Gastrointestinal: Normal bowel sounds, No tenderness Musculoskeletal: No tenderness Integumentary: No rashes Neurological: Normal speech, Normal tone, Normal affect Laboratory Data at Discharge: WBC 10.60 thou/uL (4.3-10.9) 11/03/23 07:38 Hgb 12.9 g/dL (12.0-15.0) 11/03/23 07:38 Hct 37.8 % (36.0-45.0) 11/03/23 07:38 Plt Count 146 thou/uL (152-406) L 11/03/23 07:38 PT 10.9 SECONDS (9.4-12.5) 11/02/23 10:03 INR 0.99 11/02/23 10:03 Sodium 143 mEq/L (136-145) 11/03/23 07:38 Potassium 4.4 mEq/L (3.5-5.1) 11/03/23 07:38 BUN 24 mg/dL (7-18) H 11/03/23 07:38 Creatinine 0.88 mg/dL (0.55-1.02) 11/03/23 07:38 Glucose 102 mg/dL (74-106) 11/03/23 07:38 Home Medications: Levothyroxine [Synthroid*] 25 mg PO DAILY 08/06/19 Aspirin [Wanda Chewable Aspirin] 81 mg PO DAILY 07/30/20 Primidone 100 mg PO BID 03/01/21 Meloxicam 1 tab PO PRN 07/19/21 Acetaminophen [Tylenol Extra Strength] 500 mg PO Q4H PRN 07/28/21 Lactose-Reduced Food [Ensure High Protein] 237 ml PO BID 07/28/21 Ondansetron [Zofran (Odt)*] 4 mg PO Q4H PRN 07/28/21 traMADol HCL [Ultram*] 50 mg PO Q4H PRN #60 tab 08/10/21 Amlodipine [Norvasc*] 10 mg PO DAILY 11/02/23 Omeprazole [Prilosec] 40 mg PO DAILY 11/02/23 Valsartan 1 tab PO DAILY 11/02/23 Physician Discharge Instructions: Patient was admitted to the hospital for dizziness, vomiting, and upper mid back pain. Her dizziness and vomiting were consistent with BPPV which she has experienced in the past, upper mid back pain has resolved and ACS was ruled out as she had 3 negative troponins throughout the evening, she is also seen by her barrel rifler operator who believes that her symptoms are all from BPPV. Rievr-Hallpike was performed and right ear was identified as the likely contributor to her vertigo. Right-sided Mila maneuver was performed with resolution of her symptoms, she is having much better at this time. She stable for discharge to follow-up with her primary care doctor, cardiology and ENT. Please continue your home medications as previously prescribed Observe fall precautions especially when feeling dizzy Please follow-up with your primary care doctor, barrel rifler operator and ENT Here is a video on [employer]esh[employer] of how to do the mila [email or web address]/[email or web address]?[email or web address] Your right ear seemed to be the one effected, try right sided first but may try left side if ineffective. You can also google "mila maneuver" and find more information and videos to help you try this at home Diet: AHA Activity: Fall precautions Followup: Rachel Rosales MD [ACTIVE - CAN ADMIT] - 1-2 Weeks Darci You MD [ACTIVE - CAN ADMIT] - 1-2 Weeks Time spent managing pt's care (in minutes): 30
[2023-11-03] MEDS: PANTOPRAZOLE 40MG TABLET PO SCH (09:26)
[2023-11-03] MEDS: VALSARTAN 160 MG TAB PO SCH (09:27)
[2023-11-03] MEDS: LEVOTHYROXINE SOD 0.025 MG TAB PO SCH (09:27)
[2023-11-03] MEDS: AMLODIPINE 5 MG TAB PO SCH (09:27)
[2023-11-03] MEDS: PRIMIDONE 50 MG TAB PO SCH (09:27)
[2023-11-03] MEDS: ASPIRIN 81 MG CHEWABLE TABLET PO SCH (09:27)
--- NOTE | 2023-11-04 13:32 | EKG ---
Test Date: 2023-11-02 Test Time: 09:41:37 Security Assistant: ALP MEASUREMENT RESULTS: Intervals: Rate: 62 DE: 122 QRSD: 86 QT: 394 QTc: 399 [place]: P: 63 DE: 122 QRS: -16 T: 51 INTERPRETIVE STATEMENTS: Normal sinus rhythm Possible Inferior infarct, age undetermined Abnormal ECG Compared to ECG 06/19/2022 23:32:47 No significant changes Electronically Signed On 11-04-23 13:28:04 CDT by Darci You
== END 2023-11-03 11:53 | disposition home or self-care (01) ==
LOC: ER 08:49 → ERHOLD 12:02 → 2ND 18:04
PROVIDERS: ADMIT Hospitalist; ATTEND Hospitalist
DX: H81.11 Benign paroxysmal vertigo, right ear (principal); I10 Essential (primary) hypertension; E78.5 Hyperlipidemia, unspecified; M54.9 Dorsalgia, unspecified; R11.10 Vomiting, unspecified; Z88.5 Allergy status to narcotic agent; Z95.0 Presence of cardiac pacemaker; Z91.041 Radiographic dye allergy status
CPT/HCPCS: 93005; 85025 ×2; 81001; 80048 ×2; 36415; 85610; 84443; 84484 ×3; 84439; 83880; 70450; 71045; 99285; Q0162; J1650 ×2; G0378